=== PATIENT | male | born 1960 | race Caucasian/White ===

== ENCOUNTER 2020-10-07 13:34 | Inpatient (IN) | payer MEDICARE, MEDICAID, SELFPAY ==
[2015-09-23 15:09] VITALS: BMI 42.6
--- NOTE | 2020-10-07 14:10 | HP.PCM.HOS_ITS ---
HPI - General General Date of Admission: 10/07/20 Date of Service: 10/07/20 Chief Complaint: BL Diabetic foot wounds, cellulitis HPI Narrative The patient is a 60 y/o M w/ PMHx: PTSD, Diabetes mellitus type II noted to be uncontrolled, HTN, Obesity, LANA on CPAP, Chronic pain syndrome in chronic pain management, OA, COPD, Former tobacco use who presents to the [facility] as direct admission from [place] on 10/07/20 with history of irritation of his R bunion and plantar region as well as L great dorsal toe region with development of blister, redness and swelling with chills without fevers, increased fatigue over the last 1 week secondary to usage of ill fitting work boots with then onset of red streaking up his LLE primarily over the last 24-48 hours prompting ED evaluation. He rates discomfort as aching constant with intermittent sharp, more so with activity, 5/10. Work-up in the OSH ED included: VS: T 98.2 oral, BP 127/69, HR 76, RR 16, 99% on RA CBC w/ WBC 10.3, Hgb 15.8, Plts 233 CMP w/ Na 135, K 4.4, BUN/Cr 22/1.1, glucose 285, AST 56 otherwise not marked appearing LA 1.6 Plain film L foot w/ soft tissue edema great toe with no osteos abnormalities Medications administered: Vanc and Zosyn, NS 500 cc [facility] Medical History (Updated 10/07/20 @ 14:[address] Diana Mendiola MD) Chronic pain syndrome COPD exacerbation DDD (degenerative disc disease) Diabetes mellitus type II, uncontrolled Diabetic foot infection Former tobacco use GERD (gastroesophageal reflux disease) HTN (hypertension) Obesity LANA on CPAP PTSD (post-traumatic stress disorder) PVD (peripheral vascular disease) Home Medications alprazolam [Xanax] 0.5 mg PO BID PRN PRN 09/23/15 [History Last Taken Unknown] amlodipine 10 mg PO DAILY 09/23/15 [History Last Taken 10/07/20 08:00 1] esomeprazole magnesium [Nexium] 20 mg PO DAILY 09/23/15 [History Last Taken 10/07/20 08:00 1] hydrochlorothiazide 25 mg PO DAILY 09/23/15 [History Last Taken 10/07/20 08:00] oxycodone-acetaminophen [Percocet 10-325 mg Tablet] 1 tab PO Q6H PRN PRN 09/23/15 [History Last Taken 10/06/20 22:00 1] pregabalin [Lyrica] 150 mg PO BID 09/23/15 [History Last Taken 10/06/20 22:00] Humulin 70/30 Insulin Pen 55 u MISCELLANEOUS CONT 10/07/20 [History Last Taken Unknown] dulaglutide [Trulicity] 4.5 mg SUBCUT QWEEK 10/07/20 [History Last Taken Unknown] empagliflozin [Jardiance] 25 mg PO DAILY 10/07/20 [History Last Taken Unknown] glipizide 10 mg PO DAILY 10/07/20 [History Last Taken Unknown] lisinopril 20 mg PO DAILY 10/07/20 [History Last Taken 10/07/20 08:00 1] Allergy/AdvReac Type Severity Reaction Status Date / Time No Known Allergies Allergy Verified 09/23/15 15:09 Family History (Updated 10/07/20 @ 14:[address] Diana Mendiola MD) Mother Cancer Renal CA Hypertension Diabetes Father Cancer History of NH Lymphoma and Colon CA. Hypertension Diabetes Surgical History (Updated 10/07/20 @ 14:[address] Diana Mendiola MD) History of arthroscopic surgery of shoulder History of exploratory laparotomy History of left shoulder replacement Hx of chest tube placement Status post arthroscopic surgery of left knee Social History (Updated 10/07/20 @ 14:[address] Diana Mendiola MD) household members: none Smoking Status: Former smoker how long ago did patient quit smoking: Quit 18 months prior, 5 cigars daily x 40 years prior to this. alcohol intake: never substance use type: does not use ROS ROS Narrative Admission Review of Systems: CONSTITUTIONAL: No weight loss, fever, + chills, weakness or fatigue. HEENT: Eyes: No visual loss, blurred vision, double vision or yellow sclerae. Ears, Nose, Throat: No hearing loss, sneezing, congestion, runny nose or sore throat. SKIN: + BL great toe infections, L>R. CARDIOVASCULAR: No chest pain, chest pressure or chest discomfort, palpitations, edema, orthopnea, syncopal events. RESPIRATORY: No shortness of breath, cough or sputum, wheezing, hemoptysis. GASTROINTESTINAL: No anorexia, nausea, vomiting or diarrhea, abdominal pain, melena, BRBPR. GENITOURINARY: No dysuria, frequency, urgency or retention. NEUROLOGICAL: No headache, dizziness, syncope, paralysis, ataxia, numbness or tingling in the extremities, focal weakness, change in bowel or bladder control, seizure. MUSCULOSKELETAL: + muscle, back pain, joint pain or stiffness. HEMATOLOGIC: No anemia, bleeding or bruising. LYMPHATICS: No enlarged nodes. No history of splenectomy. PSYCHIATRIC: + History of PTSD w/ anxiety. No history of depression. ENDOCRINOLOGIC: No reports of sweating, cold or heat intolerance. No polyuria or polydipsia. ALLERGIES: No history of asthma, hives, eczema or rhinitis. Vital Signs Vital Signs Vital Signs: Weight Body Mass Index (BMI) 42.6 Physical Exam Narrative Physical Examination: General: awake, alert, oriented x 3 and cooperative, seated upright in the MS bed in no apparent distress. Skin: normal color, normal turgor, no icterus, no cyanosis except BL LE venous stasis skin changes and L dorsal foot with erythema, edema, streaking up the leg, warm to touch, L great to dorsal blister with drainage and small region on the plantar surface with some undermining, ~ 0.5 cm laterally but not to bone, R great toe with mild localized erythema around small callous medially on the great toe. HEENT: AT/NC, EOMI, PERRLA, MMM, no carotid bruits or marked JVD noted, although evaluation difficult secondary to thickened neck. Lungs: Diminished BS, > bases, appropriate effort, no rales, ronchi or wheezing. Heart: Regular rate and rhythm; no gallop, rub audible. Abdomen: soft, obese, NTTP, ND, distant normal BS, difficult to discern HSM secondary to habitus. Extremities: no cyanosis, no clubbing, L foot and great toe edema, see skin. Neurological: patient awake, alert, oriented x 3, cognitive function intact; pupils equally reactive to light and accommodation, cranial nerves II-XII grossly normal, moving all 4 extremities, no focal deficits, strength mildly to moderately globally decreased secondary to acute presentation. Psychiatric: affect appears normal, no acute evidence of depressive or anxiety feelings. Assessment & Plan Assessment/Plan (1) Diabetic foot infection: PLAN: The patient is a 60 y/o M w/ PMHx: PTSD, Diabetes mellitus type II noted to be uncontrolled, HTN, Obesity, LANA on CPAP, Chronic pain syndrome in chronic pain management, OA, COPD, Former tobacco use who presents to the [facility] as direct admission from [place] on 10/07/20 with history of irritation of his R bunion and plantar region as well as L great dorsal toe region with development of blister, redness and swelling with chills without fevers, increased fatigue over the last 1 week secondary to usage of ill fitting work boots with then o nset of red streaking up his LLE primarily over the last 24-48 hours. 1. BL LE Extremity Cellulitis, Diabetic Great Toe Infections, L>R, Possible L Great Toe Osteomyelitis: Will admit to [facility], maintain on IV Vanc and Zosyn, will obtain Wound Cx, will obtain Wound MRSA PCR, will obtain HILARIO/PVR/LEAS as well as L foot MRI, Wound RN consulted and dressings being placed upon admission, plan repeat CBC in AM, continue affected extremity elevation above heart when seated and in bed, monitor erythema outline with VS checks, PRN oral/IV regimen, offloading and partial weight bearing status, Dr. Koch consulted and will evaluation, plan NPO at midnight for possible OR. 2. Diabetes mellitus type II, uncontrolled: Hold oral home regimen, continue home insulin regimen, requested hemoglobin A1c as well as nutrition consultation for education and teaching, ADA diet, accu checks w/ ISS. 3. Hypertension: Continue home regimen including Norvasc, hydrochlorothiazide, lisinopril with hold parameters, PRN hydralazine. 4. PTSD: We will continue as needed low-dose benzodiazepine regimen. 5. Chronic pain syndrome, degenerative disc disease: Patient following with chronic pain management, we will temporarily hold home regimen and broaden given acute presentation with acute pain on chronic with oral and IV overlap. Continue patient home chronic Lyrica regimen concurrently. 6. Chronic COPD: Not on any routine inhalers, PRN albuterol, HOB, IS parameters. 7. Former tobacco use: Encourage continued tobacco cessation. 8. Obesity: Weight loss and lifestyle changes encouraged, nutrition consulted. 9. GERD: We will continue famotidine at this time. 10. LANA: CPAP nightly. 11. DVT prophylaxis: SCDs, hold chemoprophylaxis for possible a.m. OR. Charges/Coding Visit Charges Inpatient E&M: 88973 Init Hosp L3
[2020-10-07 14:15] VITALS: PULSE 80; BMI 42.5
--- NOTE | 2020-10-07 14:44 | ART_ITS ---
Reason For Study: Ulcer Procedure A bilateral lower extremity continuous wave Doppler with analog waveform analysis,segmental pressures,and ankle brachial indexes without exercise. Left Segmental Pressures Left brachial= 119mmHg. Left posterior tibial artery = 138mmHg. Left dorsalis pedis artery = 142mmHg. The left dorsalis pedis waveforms are triphasic. The left posterior tibial artery waveforms are triphasic. Right Segmental Pressures Right brachial= 122mmHg. Right posterior tibial artery = 153mmHg. Right dorsalis pedis artery = 137mmHg. The right dorsalis pedis waveforms are triphasic. The right posterior tibial artery waveforms are triphasic. Indices The right ankle brachial index by the dorsalis pedis is 1.12. The right ankle brachial index by the posterior tibial artery is 1.25. The left ankle brachial index by the dorsalis pedis is 1.16. The left ankle brachial index by the posterior tibial artery is 1.13. VL/Lower Ext Art Exam w/o Exercis Interpretation Summary Triphasic Doppler waveforms are noted at ankle level bilaterally. Pulse-volume recordings appear satisfactory at all levels bilaterally. Resting ankle-brachial indices are norm al bilaterally. There is no evidence of significant arterial occlusive disease in the lower ext remities bilaterally. Ordering Physician: Diana Mendiola Performed By: Sonja Oneil RVT
--- NOTE | 2020-10-07 14:50 | NURSING ---
wound photo: left great toe
--- NOTE | 2020-10-07 14:52 | NURSING ---
wound photo: left great toe
--- NOTE | 2020-10-07 14:53 | NURSING ---
wound photo: right great toe
[2020-10-07 15:00] VITALS: BP 134/81; PULSE 76; RESP 18; TEMP 36.7; O2SAT 95
[2020-10-07 15:17] LABS: Magnesium 2.5 mg/dL (1.6-2.6)
[2020-10-07 15:18] VITALS: O2SAT 93
[2020-10-07 15:35] LABS: Hemoglobin A1c 10.3 % (3.8-5.6)
[2020-10-07] MEDS: 0.9% Normal Saline 1,000 ML 125 ML IV (16:07)
[2020-10-07] MEDS: ALPRAZolam 0.5 MG Tablet PO (16:07)
[2020-10-07] MEDS: oxyCODONE 5 MG Tablet 10 MG PO ×2 (16:07→22:49)
[2020-10-07 16:15] LABS: Erythrocyte Sedimentation Rate 57 mm/hr (0-20)
[2020-10-07 16:21] LABS: Bedside Glucose 136 mg/dL (70-110)
[2020-10-07 16:28] LABS: Anion Gap 10 (5-15); BUN 21 mg/dL (7-18); BUN/Creat Ratio 17.5 RATIO (10-20); Calcium,Total 9.3 mg/dL (8.5-10.1); Chloride 103 mmol/L (98-107); EST Glomerular Filtration Rate 66 mL/min (>60); Est Glom Filt Rate - Afr Amer 79 mL/min (>60); Estimated Creatinine Clearance 73.98 ml/min; Glucose 164 mg/dL (74-106); Potassium 3.7 mmol/L (3.5-5.1); Sodium Level 135 mmol/L (136-145)
--- NOTE | 2020-10-07 16:37 | PCM.RX.CS ---
Consult Pharmacy has been consulted to manage selected antiobiotic: Vancomycin Type of Consult: New start Suspected Infection: Skin/Soft tissue Labs: Sodium 135 mmol/L (136-145) L 10/07/20 14:43 Potassium 3.7 mmol/L (3.5-5.1) 10/07/20 14:43 Chloride 103 mmol/L (98-107) 10/07/20 14:43 Carbon Dioxide 22.0 mmol/L (21.0-32.0) 10/07/20 14:43 Anion Gap 10 (5-15) 10/07/20 14:43 BUN 21 mg/dL (7-18) H 10/07/20 14:43 Creatinine 1.20 mg/dL (0.70-1.30) 10/07/20 14:43 Est GFR (MDRD) Af Amer 79 mL/min (>60) 10/07/20 14:43 Est GFR (MDRD) Non-Af 66 mL/min (>60) 10/07/20 14:43 BUN/Creatinine Ratio 17.5 RATIO (10-20) 10/07/20 14:43 Glucose 164 mg/dL (74-106) H 10/07/20 14:43 Weight used for dosin.3 kg Estimated Creatinine Clearance: 107 Pharmacy Plan for Drug Dosing: Patient received 1 gram of vancomycin in [facility] at 1200 on 10/07/2020. dosing recommendation of 1250mg every 8 hours drawing a trough level 1130 10/08/20. Pharmacy Service will continue to monitor and adjust dosing as required. Follow-Up Labs: Trough Vancomycin Labs to be done on [date and time ordered]: 10/08/2020 @1130
[2020-10-07] MEDS: Pregabalin 75 MG Capsule 150 MG PO ×2 (16:39→20:52)
[2020-10-07] MEDS: HYDROmorphone 1 MG/ML Syringe IV ×2 (16:40→20:52)
[2020-10-07 17:13] LABS: M R Staph aureus DNA By PCR Negative (Negative); Probe Check PASS; Specimen Processing Control PASS; Staph aureus DNA By PCR NEGATIVE (Negative)
[2020-10-07 17:17] LABS: M R Staph aureus DNA By PCR Negative (Negative); Probe Check PASS; Specimen Processing Control PASS
--- NOTE | 2020-10-07 17:30 | CON.PCM_ITS ---
Assessment & Plan Assessment/Plan (1) Cellulitis of left lower limb: PLAN: Reviewed diagnostic data. There is noted infection to the left 1st toe with streaking and cellulitis to the foot. Discussed debridement of the w ound with patient, reviewed rationale of this, possible benefits vs risks, he was agreeable. The left 1st toe ulceration was debrided using a 15 blade in sharp excisional fashion down to fascia layer, necrotic subcutaneous tissue and fascia was debrided. There was purulence in the tissues which was excised, all nonviable, necrotic tissue was debrided down to healthy viable base and margins. The wound area debrided measured 5cm x 2.8cm and down to fascia layer total, no anesthesia was needed due to patient's peripheral neuropathy. Hemostasis was achieved with pressure and gauze, there was about 3mL of blood loss. A deep wound culture was obtained and sent to microbiology. There was no probe to bone or joint. A dressing was applied which consisted of betadine, 4x4 gauze, kerlix and mary ann bandage. The right 1st toe ulceration was debrided using a 15 blade in sharp excisional fashion down to subcutaneous layer, necrotic subcutaneous tissue debrided. This was debrided down to healthy viable base and margins. The wound area debrided measured 0.8cm x 0.4cm and down to subcutaneous layer, no anesthesia was needed due to patient's peripheral neuropathy. Hemostasis was achieved with pressure and gauze, there was about 3mL of blood loss. A deep wound culture was obtained and sent to microbiology. There was no probe to bone or joint. A dressing was applied which consisted of 4x4 gauze, kerlix and amry ann bandage. Patient has been started on IV antibiotic therapy - Vancomycin and Zosyn. MRI has been ordered and is pending of the left foot. Left foot xrays radiology report has been reviewed from the xrays he had today at [place], I am not able to see the images and I did order new foot xrays bilateral. LEAS have been ordered and prelim findings show good arterial flow bilateral lower extremity. Reviewed importance of proper blood sugar control to help optimize wound healing, and foot/ankle health. Podiatry will continue to follow closely. Thank you for consultation. (2) Non-pressure 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: (3) Non-pressure chronic ulcer of other part of right foot with fat layer exposed: (4) Type 2 diabetes mellitus with diabetic polyneuropathy: HPI Consult Data Date of Consult: 10/07/20 HPI Narrative HPI Narrative: CALLIE CASTELLANO, is a 60 M who presents with bilateral 1st toe ulce rations left worse than right. Patient relates he developed wounds to the toes a couple weeks ago by wearing old work boots. He relates he went to urgent care as it looked like the right 1st toe ulcer was infected - he took keflex, and now it is better. Recently the left 1st toe ulcer has worsened and is red, swollen with streaking. Patient went to [facility] and was transferred here. He was admitted for further management. He has been started on IV antibiotics. MRI has been ordered of the left foot. Xrays left foot were obtained at [place] - reviewed radiology report and no osseous abnormality noted, no report on gas in the tissues. Labs noted to have elevated ESR and CRP. Hemoglobin a1c 10.3. Patient with no reported fever, chills, nausea or vomiting. [facility] Medical History (Updated 10/07/20 @ 17:[address] Donta Koch, DPM) Chronic pain syndrome COPD exacerbation DDD (degenerative disc disease) Diabetes mellitus type II, uncontrolled Diabetic foot infection Former tobacco use GERD (gastroesophageal reflux disease) HTN (hypertension) Obesity LANA on CPAP PTSD (post-traumatic stress disorder) PVD (peripheral vascular disease) Home Medications alprazolam [Xanax] 0.5 mg PO BID PRN PRN 09/23/15 [History Last Taken Unknown] amlodipine 10 mg PO DAILY 09/23/15 [History Last Taken 10/07/20 08:00 1] esomeprazole magnesium [Nexium] 20 mg PO DAILY 09/23/15 [History Last Taken 10/07/20 08:00 1] hydrochlorothiazide 25 mg PO DAILY 09/23/15 [History Last Taken 10/07/20 08:00] oxycodone-acetaminophen [Percocet 10-325 mg Tablet] 1 tab PO Q6H PRN PRN 09/23/15 [History Last Taken 10/06/20 22:00 1] pregabalin [Lyrica] 150 mg PO BID 09/23/15 [History Last Taken 10/06/20 22:00] Humulin 70/30 Insulin Pen 55 u MISCELLANEOUS CONT 10/07/20 [History Last Taken Unknown] dulaglutide [Trulicity] 4.5 mg SUBCUT QWEEK 10/07/20 [History Last Taken Unknown] empagliflozin [Jardiance] 25 mg PO DAILY 10/07/20 [History Last Taken 10/07/20 08:00 1] glipizide 10 mg PO DAILY 10/07/20 [History Last Taken 10/07/20 08:00] lisinopril 20 mg PO DAILY 10/07/20 [History Last Taken 10/07/20 08:00 1] Allergy/AdvReac Type Severity Reaction Status Date / Time codeine Allergy Rash Verified 10/07/20 15:21 Family History (Updated 10/07/20 @ 14:[address] Diana Mendiola MD) Mother Cancer Renal CA Hypertension Diabetes Father Cancer History of NH Lymphoma and Colon CA. Hypertension Diabetes Surgical History (Updated 10/07/20 @ 14:[address] Diana Mendiola MD) History of arthroscopic surgery of shoulder History of exploratory laparotomy History of left shoulder replacement Hx of chest tube placement Status post arthroscopic surgery of left knee Social History (Updated 10/07/20 @ 14:[address] Diana Mendiola MD) household members: none Smoking Status: Former smoker how long ago did patient quit smoking: Quit 18 months prior, 5 cigars daily x 40 years prior to this. alcohol intake: never substance use type: does not use ROS Constitutional Constitutional: Denies chills, fever(s) or malaise Gastrointestinal Gastrointestinal: Denies nausea or vomiting Integumentary Integumentary: Reports skin ulcer Physical Exam Const alert, oriented x3 and no apparent distress Orientation / Consciousness: awake, oriented to person, oriented to place and oriented to time Skin Skin Narrative: Ulceration left 1st toe to the dorsal medial aspect as well as the plantar medial aspect, there is nonviable tissue, necrotic and infected tissue present down to the fascia layer, there is purulence noted to the base and margins, there is cellulitis, erythema, edema and streaking to the foot, there is no maloder, no probe to bone. There is ulceration to the right plantar medial 1st toe with nonviable tissue down to the subcutaneous tissue with no evidence of infection at this time, no probe to bone, no fluctuance, no crepitus , no visible abscess. Pedal pulses palpable bilateral foot. CFT < 2 seconds to all toes bilateral. No ankle or leg edema bilateral. No calf pain bilateral. There is peripheral neuropathy bilateral foot - no pain to the foot or ankle with palpation or with ROM bilateral. No evidence of charcot neuroarthropathy clinically bilateral foot / ankle. Muscle strength intact to the foot and ankle bilateral. Limited 1st MTPJ ROM bilateral. Lab / Micro Data Result Diagrams: 10/07/20 14:43 10/07/20 14:43 Labs: Laboratory Results - last 24 hr 10/07/20 10/07/20 10/07/20 14:25 14:43 14:43 ESR Sodium 135 L Potassium 3.7 Chloride 103 Carbon Dioxide 22.0 Anion Gap 10 BUN 21 H Creatinine 1.20 Estim Creat Clear Calc 73.98 Est GFR (MDRD) Af Amer 79 Est GFR (MDRD) Non-Af 66 BUN/Creatinine Ratio 17.5 Glucose 164 H Hemoglobin A1c Calcium 9.3 Magnesium 2.5 C-React Prot Ext Range 83.20 H S.aureus Protein A PCR NEGATIVE MRSA (PCR) Negative POC Glucose 10/07/20 10/07/20 10/07/20 14:54 14:54 15:15 ESR 57 H Sodium Potassium Chloride Carbon Dioxide Anion Gap BUN Creatinine Estim Creat Clear Calc Est GFR (MDRD) Af Amer Est GFR (MDRD) Non-Af BUN/Creatinine Ratio Glucose Hemoglobin A1c 10.3 H Calcium Magnesium C-React Prot Ext Range S.aureus Protein A PCR MRSA (PCR) Negative POC Glucose 10/07/20 16:14 ESR Sodium Potassium Chloride Carbon Dioxide Anion Gap BUN Creatinine Estim Creat Clear Calc Est GFR (MDRD) Af Amer Est GFR (MDRD) Non-Af BUN/Creatinine Ratio Glucose Hemoglobin A1c Calcium Magnesium C-React Prot Ext Range S.aureus Protein A PCR MRSA (PCR) POC Glucose 136 H
--- NOTE | 2020-10-07 17:38 | RAD_ITS ---
STUDY: X-RAY - RIGHT FOOT CLINICAL: Male, 60 years old. ulcer 1st toe TECHNIQUE: 3 view(s) of the foot. COMPARISON: None. FINDINGS: Plantar calcaneal spur and enthesophyte at the Achilles tendon insertion site. Otherwise normal talus, calcaneus, and tarsal bones. Normal visualized subtalar, talonavicular, calcaneocuboid, tarsal and tarsometatarsal articulations. At the base of the fifth metatarsal bone, otherwise normal metatarsi. There is degenerative arthrosis of the metatarsophalangeal joint of the hallux . Normal tibial and fibular sesamoid bones. There is degenerative arthrosis of the interphalangeal joint of the great toe. Normal phalanges of the great toe. Normal second through fifth metatarsophalangeal joints. Narrowing of the interphalangeal joints otherwise normal phalanges of the lesser toes. The soft tissue structures are unremarkable. There is no demonstrated fracture. RAD/Foot min 3 Views IMPRESSION: Multilevel degenerative disease as described. No acute fracture or subluxation. Electronically Signed: Rashmi Mcguire MD at 0:23 EDT , Service support ,
[2020-10-07] MEDS: Insulin Human 75/25 Kwickpen 55 UNIT SC (17:59)
[2020-10-07] MEDS: Juven (unflavored) Packet 1 PACKET PO (18:00)
--- NOTE | 2020-10-07 18:00 | MRI_ITS ---
STUDY: MRI LEFT FOREFOOT WITH AND WITHOUT CONTRAST REASON FOR EXAM: Male, 60 years old. Diabetic Left Foot Wound ON TOP OF LEFT GREAT TOE X 2 WEEKS TECHNIQUE: Standardized fat and water weighted pulse sequences were obtained in all 3 orthogonal planes, post contrast administration. IV 29ml Dotarem was administered for the contrast portion of the examination. COMPARISON: X-ray earlier today FINDINGS: There is degenerative arthrosis of the metatarsophalangel joint of the hallux. Normal tibial and fibular sesamoids, with normal sesamoids-first metatarsal articulations. Normal interphalangeal joint of the hallux. There is a 1 cm fluid-filled cyst within the tibial and the lower aspect of the first proximal phalanx with a thin connection to the metatarsophalangeal joint felt to represent a subchondral cyst. Normal medial and lateral heads of the flexor hallucis brevis tendons. Normal flexor and extensor hallucis longus tendons. Normal second through fifth metatarsophalangeal (MTP) joints. Normal interphalangeal joints of the second through fifth toes. Normal proximal, middle and distal phalanges of the second through fifth toes. Normal flexor and extensor tendons of the second through fifth toes. Mild third intermetatarsal space bursitis. Normal visualized metatarsi. Normal intrinsic muscles of the forefoot. Skin thickening and edema of the subcutaneous fat of the first digit consistent with cellulitis. Edema continues into the dorsum of the foot. There is an ulcer of the dorsal tibial surface of the first digit at the level the interphalangeal joint. No loculated fluid collection to suggest abscess. No bone destruction to suggest osteomyelitis. MRI/Lower Ext No Joint W/WO Cont IMPRESSION: Cellulitis with ulcer of the first digit but no abscess or osteomyelitis. Electronically Signed: Miguel Jimenez MD at 12:17 EDT Tel , Service support ,
[2020-10-07] MEDS: Oxymetazoline 0.05% 1 SPRAY SPRAY.BTL NASAL (18:02)
--- NOTE | 2020-10-07 18:03 | RAD_ITS ---
STUDY: X-RAY - LEFT FOOT CLINICAL: Male, 60 years old. wound 1st toe s/p debridement TECHNIQUE: 3 view(s) of the foot. COMPARISON: None. FINDINGS: Plantar calcaneal spur and enthesophyte at the Achilles tendon insertion site. Otherwise normal talus, calcaneus, and tarsal bones. Normal visualized subtalar, talonavicular, calcaneocuboid, tarsal and tarsometatarsal articulations. Normal metatarsi. There is degenerative arthrosis of the metatarsophalangeal joint of the hallux . Normal tibial and fibular sesamoid bones. There is degenerative arthrosis of the interphalangeal joint of the great toe. Normal phalanges of the great toe. Normal second through fifth metatarsophalangeal joints. Narrowing of the interphalangeal joints otherwise normal phalanges of the lesser toes. There is diffuse soft tissue swelling at the first toe with areas of laceration or open wound injury involving the medial aspect of the first toe. RAD/Foot min 3 Views IMPRESSION: Soft tissue swelling at the level of the first toe with open wound injury versus laceration as described. Underlying degenerative disease with no acute fracture or subluxation. Electronically Signed: Rashmi Mcguire MD at 0:25 EDT , Service support ,
[2020-10-07 20:30] VITALS: BP 108/83; PULSE 82; RESP 17; TEMP 36.9; O2SAT 96
[2020-10-07] MEDS: 0.9% Saline Lock 10 ML Syringe IV ×2 (20:33→22:48)
[2020-10-07] MEDS: Famotidine 20 MG Tablet PO (20:43)
[2020-10-07] MEDS: Insulin Lispro 100 UNIT/ML INSULN.PEN SC (21:06)
[2020-10-07 21:15] LABS: Bedside Glucose 164 mg/dL (70-110)
[2020-10-07] MEDS: Temazepam 15 MG Capsule PO (22:49)
[2020-10-07 23:18] LABS: M R Staph aureus DNA By PCR Negative (Negative); Probe Check PASS; Specimen Processing Control PASS; Staph aureus DNA By PCR NEGATIVE (Negative)
[2020-10-07 23:19] LABS: M R Staph aureus DNA By PCR Negative (Negative); Probe Check PASS; Specimen Processing Control PASS; Staph aureus DNA By PCR NEGATIVE (Negative)
[2020-10-07 23:30] VITALS: PULSE 81; RESP 12; O2SAT 96
[2020-10-08] VITALS (7 sets, daily range): BP systolic 111–143; BP diastolic 62–74; PULSE 73–84; RESP 16–19; TEMP 36.8–37.4; O2SAT 94–96
[2020-10-08] MEDS: 0.9% Saline Lock 10 ML Syringe IV ×2 (03:29→21:53)
[2020-10-08] MEDS: HYDROmorphone 1 MG/ML Syringe IV ×4 (03:29→21:52)
[2020-10-08] MEDS: 0.9% Normal Saline 1,000 ML 125 ML IV ×2 (03:54→15:00)
[2020-10-08] MEDS: Insulin Lispro 100 UNIT/ML INSULN.PEN SC ×3 (06:19→17:31)
[2020-10-08] MEDS: oxyCODONE 5 MG Tablet 10 MG PO ×3 (06:24→19:27)
[2020-10-08] MEDS: Acetaminophen 325 MG Tablet 650 MG PO ×3 (06:24→19:27)
[2020-10-08 06:26] LABS: Bedside Glucose 168 mg/dL (70-110)
--- NOTE | 2020-10-08 06:30 | PCM.PN.BLA ---
Progress Note Patient overnight with no acute events per self and per nursing report. Patient notes some throbbing discomfort primarily to the left foot following debridement at the bedside the evening prior. He notes current pain regimen is sufficient enough to control this pain and has significantly improved since initiation. Did review with patient current work-up which included left foot MRI with evidence of cellulitis with ulcer of the first digit but no obvious evidence of abscess or osteomyelitis. Podiatry also repeated plain films of bilateral feet, right foot with multilevel degenerative disease but no acute fracture or subluxation or evidence of osteomyelitis. Patient denies fevers, chills, nausea, emesis, abdominal pain, chest pain or dyspnea. Physical Exam Narrative Extremity Arterial Study 10/07/20 14:44 Interpretation Summary Triphasic Doppler waveforms are noted at ankle level bilaterally. Pulse-volume recordings appear satisfactory at all levels bilaterally. Resting ankle-brachial indices are normal bilaterally. There is no evidence of significant arterial occlusive disease in the lower extremities bilaterally. Ordering Physician: Diana Mendiola Performed By: Sonja Oneil, T Foot X-Ray 10/07/20 17:38 IMPRESSION: Multilevel degenerative disease as described. No acute fracture or subluxation. Electronically Signed: Rashmi Mcguire MD at 0:23 EDT , Service support , Lower Extremity MRI 10/07/20 18:00 IMPRESSION: Cellulitis with ulcer of the first digit but no abscess or osteomyelitis. Electronically Signed: Mgiuel Jimenez MD at 12:17 EDT Tel , Service support , Foot X-Ray 10/07/20 18:03 IMPRESSION: Soft tissue swelling at the level of the first toe with open wound injury versus laceration as described. Underlying degenerative disease with no acute fracture or subluxation. Electronically Signed: Rashmi Mcguire MD at 0:25 EDT , Service support , Temp Pulse Resp BP Pulse Ox 99.1 F 73 16 118/64 94 10/08/20 08:07 10/08/20 08:07 10/08/20 08:07 10/08/20 08:07 10/08/20 08:07 10/08/20 10/08/20 10/08/20 11:20 11:14 06:56 WBC RBC Hgb Hct MCV MCH MCHC RDW Std Deviation RDW Coeff of Mimi Plt Count MPV Immature Gran % (Auto) Neut % (Auto) Lymph % (Auto) Gonzales % (Auto) Eos % (Auto) Baso % (Auto) Absolute Neuts (auto) Absolute Lymphs (auto) Nucleated RBC % ESR Sodium 136 Potassium 3.8 Chloride 106 Carbon Dioxide 24.0 Anion Gap 6 BUN 18 Creatinine 1.12 Estim Creat Clear Calc 79.27 Est GFR (MDRD) Af Amer 86 Est GFR (MDRD) Non-Af 71 BUN/Creatinine Ratio 16.1 Glucose 166 H Hemoglobin A1c Calcium 8.6 Magnesium Total Bilirubin 0.40 AST 39 H ALT 36 Alkaline Phosphatase 66 C-React Prot Ext Range Total Protein 7.3 Albumin 3.1 L Globulin 4.2 Albumin/Globulin Ratio 0.7 L Vancomycin Trough 13.5 S.aureus Protein A PCR MRSA (PCR) POC Glucose 262 H 10/08/20 10/08/20 10/07/20 06:56 06:18 21:05 WBC 8.1 RBC 4.77 Hgb 14.1 Hct 41.5 MCV 87.0 MCH 29.6 MCHC 34.0 RDW Std Deviation 40.8 RDW Coeff of Mimi 12.8 Plt Count 209 MPV 10.1 Immature Gran % (Auto) 0.700 Neut % (Auto) 53.0 Lymph % (Auto) 30.3 Gonzales % (Auto) 12.5 H Eos % (Auto) 2.6 Baso % (Auto) 0.9 Absolute Neuts (auto) 4.3 Absolute Lymphs (auto) 2.45 Nucleated RBC % 0 ESR Sodium Potassium Chloride Carbon Dioxide Anion Gap BUN Creatinine Estim Creat Clear Calc Est GFR (MDRD) Af Amer Est GFR (MDRD) Non-Af BUN/Creatinine Ratio Glucose Hemoglobin A1c Calcium Magnesium Total Bilirubin AST ALT Alkaline Phosphatase C-React Prot Ext Range Total Protein Albumin Globulin Albumin/Globulin Ratio Vancomycin Trough S.aureus Protein A PCR MRSA (PCR) POC Glucose 168 H 164 H 10/07/20 10/07/20 10/07/20 17:34 17:34 16:14 WBC RBC Hgb Hct MCV MCH MCHC RDW Std Deviation RDW Coeff of Mimi Plt Count MPV Immature Gran % (Auto) Neut % (Auto) Lymph % (Auto) [place] % (Auto) Eos % (Auto) Baso % (Auto) Absolute Neuts (auto) Absolute Lymphs (auto) Nucleated RBC % ESR Sodium Potassium Chloride Carbon Dioxide Anion Gap BUN Creatinine Estim Creat Clear Calc Est GFR (MDRD) Af Amer Est GFR (MDRD) Non-Af BUN/Creatinine Ratio Glucose Hemoglobin A1c Calcium Magnesium Total Bilirubin AST ALT Alkaline Phosphatase C-React Prot Ext Range Total Protein Albumin Globulin Albumin/Globulin Ratio Vancomycin Trough S.aureus Protein A PCR NEGATIVE NEGATIVE MRSA (PCR) Negative Negative POC Glucose 136 H 10/07/20 10/07/20 10/07/20 15:15 14:54 14:54 WBC RBC Hgb Hct MCV MCH MCHC RDW Std Deviation RDW Coeff of Mimi Plt Count MPV Immature Gran % (Auto) Neut % (Auto) Lymph % (Auto) Gonzales % (Auto) Eos % (Auto) Baso % (Auto) Absolute Neuts (auto) Absolute Lymphs (auto) Nucleated RBC % ESR 57 H Sodium Potassium Chloride Carbon Dioxide Anion Gap BUN Creatinine Estim Creat Clear Calc Est GFR (MDRD) Af Amer Est GFR (MDRD) Non-Af BUN/Creatinine Ratio Glucose Hemoglobin A1c 10.3 H Calcium Magnesium Total Bilirubin AST ALT Alkaline Phosphatase C-React Prot Ext Range Total Protein Albumin Globulin Albumin/Globulin Ratio Vancomycin Trough S.aureus Protein A PCR MRSA (PCR) Negative POC Glucose 10/07/20 10/07/20 10/07/20 14:43 14:43 14:25 WBC RBC Hgb Hct MCV MCH MCHC RDW Std Deviation RDW Coeff of Mimi Plt Count MPV Immature Gran % (Auto) Neut % (Auto) Lymph % (Auto) Gonzales % (Auto) Eos % (Auto) Baso % (Auto) Absolute Neuts (auto) Absolute Lymphs (auto) Nucleated RBC % ESR Sodium 135 L Potassium 3.7 Chloride 103 Carbon Dioxide 22.0 Anion Gap 10 BUN 21 H Creatinine 1.20 Estim Creat Clear Calc 73.98 Est GFR (MDRD) Af Amer 79 Est GFR (MDRD) Non-Af 66 BUN/Creatinine Ratio 17.5 Glucose 164 H Hemoglobin A1c Calcium 9.3 Magnesium 2.5 Total Bilirubin AST ALT Alkaline Phosphatase C-React Prot Ext Range 83.20 H Total Protein Albumin Globulin Albumin/Globulin Ratio Vancomycin Trough S.aureus Protein A PCR NEGATIVE MRSA (PCR) Negative POC Glucose Physical Examination: General: awake, alert, oriented x 3 and cooperative, seated upright in the MS bed in no apparent distress. Skin: normal color, normal turgor, no icterus, no cyanosis, s/p BL bedside debridement per podiatry with dressing in place bilaterally, erythema and streaking notable improved per discussion with podiatry. HEENT: AT/NC, EOMI, PERRLA, MMM. Lungs: Diminished BS, > bases, appropriate effort, no rales, ronchi or wheezing. Heart: Regular rate and rhythm; no gallop, rub audible. Abdomen: soft, morbidly obese, NTTP, ND, distant normal BS. Extremities: no cyanosis, no clubbing, s/p bedside debridement, dressings in place, see skin. Neurological: patient awake, alert, oriented x 3, cognitive function intact; pupils equally reactive to light and accommodation, cranial nerves II-XII grossly normal, moving all 4 extremities, no focal deficits, strength improving, mildly to moderately globally decreased. Psychiatric: affect appears normal, no acute evidence of depressive or anxiety feelings. 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: with nursing home use Qualified Code(s): E11.42 - Type 2 diabetes mellitus with diabetic polyneuropathy; Z79.4 - shelter (current) use of insulin (5) Diabetic foot infection: PLAN: The patient is a 60 y/o M w/ PMHx: PTSD, Diabetes mellitus type II noted to be uncontrolled, HTN, Obesity, LANA on CPAP, Chronic pain syndrome in chronic pain management, OA, COPD, Former tobacco use who presents to the [facility] as direct admission from [place] ED on 10/07/20 with history of irritation of his R bunion and plantar region as well as L great dorsal toe region with development of blister, redness and swelling with chills without fevers, increased fatigue over the last 1 week secondary to usage of ill fitting work boots with then onset of red streaking up his LLE primarily over the last 24-48 hours. 1. BL LE Extremity Cellulitis, Diabetic Great Toe Infections, L>R, Possible L Great Toe Osteomyelitis: Patient admitted to [place], maintained currently on Vanc and Zosyn pending Wound Cx and Wound MRSA, HILARIO/PVR/LEAS without any marked evidence of arterial disease, L foot MRI without evidence of osteomyelitis, s/p 10/07/20 aggressive bedside debridement per Dr. Koch, continue to trend CBC, consider ID consultation Saturday pending re-assessment, continue daily dressing changes per Podiatry/Wound RN discretion, PRN oral/IV regimen, offloading and partial weight bearing status. Deferring OR at this time. 2. Diabetes mellitus type II, uncontrolled: Hold oral home regimen, continue home insulin regimen, hemoglobin A1c 10.3%, nutrition consultation for education and teaching, ADA diet, accu checks w/ ISS. 3. Hypertension: Continue home regimen including Norvasc, hydrochlorothiazide, lisinopril with hold parameters, PRN hydralazine. 4. PTSD: Continue as needed low-dose benzodiazepine regimen. 5. Chronic pain syndrome, degenerative disc disease: Patient following with chronic pain management, we will temporarily hold home regimen and broaden given acute presentation with acute pain on chronic with oral and IV overlap. Continue patient home chronic Lyrica regimen concurrently. 6. Chronic COPD: Not on any routine inhalers, PRN albuterol, HOB, IS parameters. 7. Former tobacco use: Encourage continued tobacco cessation. 8. Morbid Obesity: Weight loss and lifestyle changes encouraged, nutrition consulted. 9. GERD: We will continue famotidine at this time. 10. ALNA: CPAP nightly. 11. DVT prophylaxis: SCDs, will add lovenox given no planned OR. Visit Charges Inpatient E&M: 47384 Subs Hosp L2
[2020-10-08 07:06] LABS: Absolute Lymphocyte Count 2.45 X10^3/uL (0.83-4.51); Absolute Neutrophil Count 4.3 X10^3/uL (2.0-7.7); Basophil# 0.07 X10^3/uL; Basophil% 0.9 % (0-1); Eosinophil# 0.21 X10^3/uL; Eosinophils% 2.6 % (0-5); Hematocrit 41.5 % (40-54); Hemoglobin 14.1 g/dL (13.0-16.5); Lymphocyte # 2.45 X10^3/ul (0.83-4.51); Lymphocyte % 30.3 % (19-41); Mean Corpuscular Hgb 29.6 pg (27.0-32.0); Mean Platelet Vol. 10.1 fl (6.2-12.0); Monocyte# 1.01 X10^3/uL; Monocyte% 12.5 % (0-10); NRBC Flagged by Analyzer 0 % (0-5); Neutrophil # 4.29 X10^3/uL (2.7-7.7); Platelet Count 209 K/mm3 (150-450); RBC Distribution Width CV 12.8 % (11.6-14.6); RBC Distribution Width SD 40.8 fl (35.1-43.9); Red Blood Count 4.77 M/mm3 (4.6-6.2); White Blood Count 8.1 K/mm3 (4.4-11.0)
[2020-10-08 07:39] LABS: ALB/GLOB Ratio 0.7 RATIO (0.9-2.4); AST(SGOT) 39 U/L (15-37); Alanine Aminotransfer ALT/SGPT 36 U/L (16-61); Albumin, Serum 3.1 g/dL (3.2-5.0); Alkaline Phosphatase 66 U/L (45-117); Anion Gap 6 (5-15); BUN 18 mg/dL (7-18); BUN/Creat Ratio 16.1 RATIO (10-20); Calcium,Total 8.6 mg/dL (8.5-10.1); Chloride 106 mmol/L (98-107); Creatinine, Serum 1.12 mg/dL (0.70-1.30); EST Glomerular Filtration Rate 71 mL/min (>60); Est Glom Filt Rate - Afr Amer 86 mL/min (>60); Estimated Creatinine Clearance 79.27 ml/min; Globulin 4.2 g/dL (2.2-4.2); Glucose 166 mg/dL (74-106); Potassium 3.8 mmol/L (3.5-5.1); Protein, Total 7.3 g/dL (6.4-8.2); Sodium Level 136 mmol/L (136-145)
--- NOTE | 2020-10-08 07:48 | PN_ITS ---
Subjective Subjective Patient was seen this morning for follow up on bilateral feet. He is resting comfortably in bed. No complaints of fever, chills, nausea or vomiting. Objective Data Objective Data Vital Signs: Vital Signs Temp Pulse Resp BP Pulse Ox 98.2 F 84 17 111/74 94 10/08/20 03:34 10/08/20 03:34 10/08/20 03:34 10/08/20 03:34 10/08/20 03:34 Oxygen Delivery Method Room Air Weight: 147.2 kg Body Mass Index (BMI) 42.5 Intake & Output: Intake and Output for Last 24 Hours 10/06/20 10/07/20 10/08/20 23:59 23:59 23:59 Intake Total 1431.25 / 1431.25 1732.92 / 1732.92 Output Total 600 / 600 Balance 831.25 / 831.25 1732.92 / 1732.92 Lab / Micro Data Result Diagrams: 10/08/20 06:56 10/08/20 06:56 Labs: Laboratory Results - last 24 hr 10/07/20 10/07/20 10/07/20 14:25 14:43 14:43 WBC RBC Hgb Hct MCV MCH MCHC RDW Std Deviation RDW Coeff of Mimi Plt Count MPV Immature Gran % (Auto) Neut % (Auto) Lymph % (Auto) [place] % (Auto) Eos % (Auto) Baso % (Auto) Absolute Neuts (auto) Absolute Lymphs (auto) Nucleated RBC % ESR Sodium 135 L Potassium 3.7 Chloride 103 Carbon Dioxide 22.0 Anion Gap 10 BUN 21 H Creatinine 1.20 Estim Creat Clear Calc 73.98 Est GFR (MDRD) Af Amer 79 Est GFR (MDRD) Non-Af 66 BUN/Creatinine Ratio 17.5 Glucose 164 H Hemoglobin A1c Calcium 9.3 Magnesium 2.5 Total Bilirubin AST ALT Alkaline Phosphatase C-React Prot Ext Range 83.20 H Total Protein Albumin Globulin Albumin/Globulin Ratio S.aureus Protein A PCR NEGATIVE MRSA (PCR) Negative POC Glucose 10/07/20 10/07/20 10/07/20 14:54 14:54 15:15 WBC RBC Hgb Hct MCV MCH MCHC RDW Std Deviation RDW Coeff of Mimi Plt Count MPV Immature Gran % (Auto) Neut % (Auto) Lymph % (Auto) [place] % (Auto) Eos % (Auto) Baso % (Auto) Absolute Neuts (auto) Absolute Lymphs (auto) Nucleated RBC % ESR 57 H Sodium Potassium Chloride Carbon Dioxide Anion Gap BUN Creatinine Estim Creat Clear Calc Est GFR (MDRD) Af Amer Est GFR (MDRD) Non-Af BUN/Creatinine Ratio Glucose Hemoglobin A1c 10.3 H Calcium Magnesium Total Bilirubin AST ALT Alkaline Phosphatase C-React Prot Ext Range Total Protein Albumin Globulin Albumin/Globulin Ratio S.aureus Protein A PCR MRSA (PCR) Negative POC Glucose 10/07/20 10/07/20 10/07/20 16:14 17:34 17:34 WBC RBC Hgb Hct MCV MCH MCHC RDW Std Deviation RDW Coeff of Mimi Plt Count MPV Immature Gran % (Auto) Neut % (Auto) Lymph % (Auto) [place] % (Auto) Eos % (Auto) Baso % (Auto) Absolute Neuts (auto) Absolute Lymphs (auto) Nucleated RBC % ESR Sodium Potassium Chloride Carbon Dioxide Anion Gap BUN Creatinine Estim Creat Clear Calc Est GFR (MDRD) Af Amer Est GFR (MDRD) Non-Af BUN/Creatinine Ratio Glucose Hemoglobin A1c Calcium Magnesium Total Bilirubin AST ALT Alkaline Phosphatase C-React Prot Ext Range Total Protein Albumin Globulin Albumin/Globulin Ratio S.aureus Protein A PCR NEGATIVE NEGATIVE MRSA (PCR) Negative Negative POC Glucose 136 H 10/07/20 10/08/20 10/08/20 21:05 06:18 06:56 WBC 8.1 RBC 4.77 Hgb 14.1 Hct 41.5 MCV 87.0 MCH 29.6 MCHC 34.0 RDW Std Deviation 40.8 RDW Coeff of Mimi 12.8 Plt Count 209 MPV 10.1 Immature Gran % (Auto) 0.700 Neut % (Auto) 53.0 Lymph % (Auto) 30.3 [place] % (Auto) 12.5 H Eos % (Auto) 2.6 Baso % (Auto) 0.9 Absolute Neuts (auto) 4.3 Absolute Lymphs (auto) 2.45 Nucleated RBC % 0 ESR Sodium Potassium Chloride Carbon Dioxide Anion Gap BUN Creatinine Estim Creat Clear Calc Est GFR (MDRD) Af Amer Est GFR (MDRD) Non-Af BUN/Creatinine Ratio Glucose Hemoglobin A1c Calcium Magnesium Total Bilirubin AST ALT Alkaline Phosphatase C-React Prot Ext Range Total Protein Albumin Globulin Albumin/Globulin Ratio S.aureus Protein A PCR MRSA (PCR) POC Glucose 164 H 168 H 10/08/20 06:56 WBC RBC Hgb Hct MCV MCH MCHC RDW Std Deviation RDW Coeff of Mimi Plt Count MPV Immature Gran % (Auto) Neut % (Auto) Lymph % (Auto) [place] % (Auto) Eos % (Auto) Baso % (Auto) Absolute Neuts (auto) Absolute Lymphs (auto) Nucleated RBC % ESR Sodium 136 Potassium 3.8 Chloride 106 Carbon Dioxide 24.0 Anion Gap 6 BUN 18 Creatinine 1.12 Estim Creat Clear Calc 79.27 Est GFR (MDRD) Af Amer 86 Est GFR (MDRD) Non-Af 71 BUN/Creatinine Ratio 16.1 Glucose 166 H Hemoglobin A1c Calcium 8.6 Magnesium Total Bilirubin 0.40 AST 39 H ALT 36 Alkaline Phosphatase 66 C-React Prot Ext Range Total Protein 7.3 Albumin 3.1 L Globulin 4.2 Albumin/Globulin Ratio 0.7 L S.aureus Protein A PCR MRSA (PCR) POC Glucose Radiography Diagnostic Testing: Radiology Impression Extremity Arterial Study 10/07/20 14:44 Interpretation Summary Triphasic Doppler waveforms are noted at ankle level bilaterally. Pulse-volume recordings appear satisfactory at all levels bilaterally. Resting ankle-brachial indices are normal bilaterally. There is no evidence of significant arterial occlusive disease in the lower extremities bilaterally. Ordering Physician: Diana Mendiola Performed By: Sonja Oneil RVT Foot X-Ray 10/07/20 17:38 IMPRESSION: Multilevel degenerative disease as described. No acute fracture or subluxation. Electronically Signed: Rashmi Mcguire MD at 0:23 EDT , Service support , Foot X-Ray 10/07/20 18:03 IMPRESSION: Soft tissue swelling at the level of the first toe with open wound injury versus laceration as described. Underlying degenerative disease with no acute fracture or subluxation. Electronically Signed: Rashmi Mcguire MD at 0:25 EDT , Service support , Physical Exam Const alert, oriented x3 and no apparent distress Orientation / Consciousness: awake, oriented to person, oriented to place and oriented to time Skin Skin Narrative: Ulceration left 1st toe to the dorsal medial aspect as well as the plantar medial aspect, tissues healthy and viable today - down to the fascia layer, there is cellulitis, erythema, edema and streaking to the foot which is much improved today, there is no maloder, no probe to bone. There is ulceration to the right plantar medial 1st toe with healthy viable tissue down to the subcutaneous tissue with no evidence of infection at this time, no probe to bone, no fluctuance, no crepitus, no visible abscess. Pedal pulses palpable bilateral foot. CFT < 2 seconds to all toes bilateral. No ankle or leg edema bilateral. No calf pain bilateral. There is peripheral neuropathy bilateral foot - no pain to the foot or ankle with palpation or with ROM bilateral. No evidence of charcot neuroarthropathy clinically bilateral foot / ankle. Muscle strength intact to the foot and ankle bilateral. Limited 1st MTPJ ROM bilateral. Assessment & Plan Assessment/Plan (1) Cellulitis of left lower limb: PLAN: Re-evaluation performed. Reviewed diagnostic data. Reviewed bilateral foot xrays, no gas, no evidence of osteomyelitis. Patient has obtained left foot MRI, reviewed images, however awaiting formal radiology read. WBC normal today, patient afebrile. Clinically feet much improved, left foot cellulitis resolving, no visible abscess, non purulence today, tissues healthy and viable bilateral feet. Due to the findings with significant improvement noted today no podiatry surgery plans at this time and ok to resume his diet. Cultures have been obtained and results pending. Patient is on IV antibiotics - Vancomycin and Zosyn. Wound Care: Cleansed ulcerations with normal saline solution. Apply Aquacel Ag and overlying 4x4 gauze, kerlix and mary ann bandage - change daily. LEAS have been ordered and patient has good arterial flow to bilateral feet. No weightbearing forefoot bilateral, ok for heel weightbearing bilateral. Reviewed importance of proper blood sugar control to help optimize wound healing, and foot/ankle health. Podiatry will continue to follow. (2) Non-pressure 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: (3) Non-pressure chronic ulcer of other part of right foot with fat layer exposed: (4) Type 2 diabetes mellitus with diabetic polyneuropathy:
[2020-10-08] MEDS: Insulin Human 75/25 Kwickpen 55 UNIT SC ×2 (08:31→17:32)
[2020-10-08] MEDS: Juven (unflavored) Packet 1 PACKET PO ×2 (08:34→16:31)
[2020-10-08] MEDS: Oxymetazoline 0.05% 1 SPRAY SPRAY.BTL NASAL ×2 (10:57→19:21)
[2020-10-08] MEDS: Lisinopril 20 MG Tablet PO (10:59)
[2020-10-08] MEDS: Famotidine 20 MG Tablet PO ×2 (10:59→21:46)
[2020-10-08] MEDS: hydroCHLOROthiazide 25 MG Tablet PO (10:59)
[2020-10-08] MEDS: amLODIPine 10 MG Tablet PO (10:59)
[2020-10-08] MEDS: Pregabalin 75 MG Capsule 150 MG PO ×2 (11:02→21:52)
--- NOTE | 2020-10-08 11:25 | CASEMGMT ---
SAMIRA ROBERTSON assessment: Face to Face with patient for initial transition planning/care coordination assessment. RN MARCELO introduced self and role at [facility], pt voices understanding and consents to assessment. Pt is sitting up in bed in no distress. Pt is A/Ox4 and answers all questions appropriately. Care providers, pharmacy, and demographics verified. Presentation: Direct admit from [place] ED Admitting dx: Left foot diabetic infection PCP: Romel Abraham Specialists: Zee, podiatry; [facility]; Jaspal, [facility] in [place]; [place], eye Preferred Pharmacy: [facility] Insurance: [employer] A/B, [employer] Prescription Benefit: Yes Living Will/HPOA: Pt states has LW/HPOA and is aware it's not on file at [facility]. Pt states sig other, Alie Graff, is HPOA. LNOK: Alie Tarle, sig other/HPOA Living Arrangements: Pt states lives alone in 1 story senior apt with no steps and states no concerns at home. Pt states is normally independent with ADL's. Pt is interested in an aide and provided with [facility] resources. Transportation: Pt states normally drives self but will be driving and states no transportation concerns. DME/HHC: Pt states has cpap thru [employer]. Pt states that someone mentioned he may need a WW at discharge and states no preference for DME provider. CM to follow for therapy notes. Pt states no hx of HHC or SNF. Pt states no concerns with going home at time of discharge. Pt is on disability. Pt states does not smoke cigarettes or drink ETOH. Pt states no further questions/concerns/needs. CM to follow for PT/OT evals, blood cultures, and any further discharge planning/needs. Advised pt to ask for CM if any further questions/concerns/needs arise, voices understanding. Pt goal: Home Plan: Home w/ WW, if recommended. [place] SAMIRA ROBERTSON
[2020-10-08 11:26] LABS: Bedside Glucose 262 mg/dL (70-110)
[2020-10-08 12:04] LABS: Vancomycin, Trough Level 13.5 ug/mL (5.0-15.0)
--- NOTE | 2020-10-08 13:19 | PCM.RX.CS ---
Consult Pharmacy has been consulted to manage selected antiobiotic: Vancomycin Type of Consult: Follow-up Suspected Infection: Skin/Soft tissue Labs: Sodium 136 mmol/L (136-145) 10/08/20 06:56 Potassium 3.8 mmol/L (3.5-5.1) 10/08/20 06:56 Chloride 106 mmol/L (98-107) 10/08/20 06:56 Carbon Dioxide 24.0 mmol/L (21.0-32.0) 10/08/20 06:56 Anion Gap 6 (5-15) 10/08/20 06:56 BUN 18 mg/dL (7-18) 10/08/20 06:56 Creatinine 1.12 mg/dL (0.70-1.30) 10/08/20 06:56 Est GFR (MDRD) Af Amer 86 mL/min (>60) 10/08/20 06:56 Est GFR (MDRD) Non-Af 71 mL/min (>60) 10/08/20 06:56 BUN/Creatinine Ratio 16.1 RATIO (10-20) 10/08/20 06:56 Glucose 166 mg/dL (74-106) H 10/08/20 06:56 Vancomycin Trough 13.5 ug/mL (5.0-15.0) 10/08/20 11:20 Microbiology: Microbiology 10/07/20 17:15 Wound - Right Foot Gram Stain - Final 10/07/20 17:15 Wound - Right Foot Wound Culture - Preliminary No growth-Final to follow 10/07/20 17:10 Wound - Left Foot Gram Stain - Final 10/07/20 17:10 Wound - Left Foot Wound Culture - Preliminary Beta streptococcus 10/07/20 14:25 Wound - Toe Gram Stain - Final 10/07/20 14:25 Wound - Toe Wound Culture - Preliminary Streptococcus group B Goal Trough: 15-20 mcg/mL Pharmacy Plan for Drug Dosing: VANCOMYCIN LEVEL RECEIVED Current Vancomycin Dose: 1250mg iv q8h Number of Doses Received: 1000mg iv x1 on 10/07/20 at 1200 ([facility]), 1250mg iv q8h x2 doses Vancomycin Level: 13.5 Hours Since Last Dose: 7.5 Renal Function: SrCr 1.12 Renal Function Trend: SrCr stable Lab/Micro: Vancomycin Plan/Comments: recommend continuing current dose of 1250mg iv q8h. pt is not quite at steady state, has a high bmi, and is close to ordered goal trough of 15-20 Pending Level: 10/09/20 at 1130 Pharmacy Service will continue to monitor and adjust dosing as required. Follow-Up Labs: Trough Vancomycin - 10/09/20 at 1130
--- NOTE | 2020-10-08 14:53 | CASEMGMT ---
SW Note SW Referral Source: [facility] Reason for Referral: Home Services Patient was provided with handout on [facility]. No further needs voiced. Melissa MCCRARY
[2020-10-08 16:45] LABS: Bedside Glucose 288 mg/dL (70-110)
[2020-10-08] MEDS: Enoxaparin 40 MG/0.4 ML Syringe SC (21:46)
[2020-10-08 22:06] LABS: Bedside Glucose 130 mg/dL (70-110)
[2020-10-09] MEDS: MENTHOL 226.8 GM JAR 1 APPLIC TOPICAL ×2 (00:48→21:34)
[2020-10-09] MEDS: Acetaminophen 325 MG Tablet 650 MG PO ×4 (00:50→20:00)
[2020-10-09] MEDS: oxyCODONE 5 MG Tablet 10 MG PO ×4 (00:50→20:00)
[2020-10-09] MEDS: 0.9% Normal Saline 1,000 ML 125 ML IV ×3 (00:52→20:00)
[2020-10-09 01:47] VITALS: BP 138/74; PULSE 81; RESP 16; TEMP 36.7; O2SAT 98
[2020-10-09 03:00] VITALS: PULSE 82; RESP 15; O2SAT 95
[2020-10-09] MEDS: HYDROmorphone 1 MG/ML Syringe IV (04:46)
[2020-10-09] MEDS: Sodium Chloride 0.65% 1 SPRAY SPRAY.BTL 2 SPRAY NASAL (04:47)
[2020-10-09 05:23] LABS: Absolute Lymphocyte Count 2.63 X10^3/uL (0.83-4.51); Absolute Neutrophil Count 3.2 X10^3/uL (2.0-7.7); Basophil# 0.06 X10^3/uL; Basophil% 0.8 % (0-1); Eosinophil# 0.23 X10^3/uL; Eosinophils% 3.2 % (0-5); Hematocrit 39.8 % (40-54); Hemoglobin 13.8 g/dL (13.0-16.5); Lymphocyte # 2.63 X10^3/ul (0.83-4.51); Mean Corp Hgb Conc 34.7 g/dL (32-36); Mean Corpuscular Hgb 30.1 pg (27.0-32.0); Mean Corpuscular Volume 86.9 fL (80-94); Mean Platelet Vol. 9.8 fl (6.2-12.0); Monocyte# 0.93 X10^3/uL; Monocyte% 13.1 % (0-10); NRBC Flagged by Analyzer 0 % (0-5); Neutrophil # 3.17 X10^3/uL (2.7-7.7); Neutrophil % 44.6 % (47-70); Platelet Count 217 K/mm3 (150-450); RBC Distribution Width CV 12.8 % (11.6-14.6); RBC Distribution Width SD 40.3 fl (35.1-43.9); Red Blood Count 4.58 M/mm3 (4.6-6.2); White Blood Count 7.1 K/mm3 (4.4-11.0)
[2020-10-09 05:39] LABS: ALB/GLOB Ratio 0.7 RATIO (0.9-2.4); AST(SGOT) 35 U/L (15-37); Alanine Aminotransfer ALT/SGPT 40 U/L (16-61); Albumin, Serum 2.9 g/dL (3.2-5.0); Alkaline Phosphatase 75 U/L (45-117); Anion Gap 7 (5-15); BUN 16 mg/dL (7-18); BUN/Creat Ratio 17.8 RATIO (10-20); Calcium,Total 8.8 mg/dL (8.5-10.1); Chloride 107 mmol/L (98-107); EST Glomerular Filtration Rate 92 mL/min (>60); Est Glom Filt Rate - Afr Amer 111 mL/min (>60); Estimated Creatinine Clearance 98.64 ml/min; Globulin 4.1 g/dL (2.2-4.2); Glucose 150 mg/dL (74-106); Potassium 3.8 mmol/L (3.5-5.1); Sodium Level 139 mmol/L (136-145)
--- NOTE | 2020-10-09 06:31 | PCM.PN.HOSP ---
Subjective Subjective Patient overnight with only complaints noted per himself and staff is frequent breakthrough in between the times of the oral narcotic and notes that the short action of the IV in these times is not as effective. Discussed options and patient amenable to short course of long-acting narcotic until swelling and acute pain subsides. Again discussed current presentation, elevated A1c and need for continued diet and lifestyle changes to improve healing potential. Patient denies fevers, chills, nausea, emesis, abdominal pain, chest pain or dyspnea. Objective Data Objective Data Vital Signs: Vital Signs Temp Pulse Resp BP Pulse Ox 98.1 F 82 15 138/74 H 95 10/09/20 01:47 10/09/20 03:00 10/09/20 03:00 10/09/20 01:47 10/09/20 03:00 Oxygen Delivery Method Room Air Weight: 324 lb 8.327 oz Body Mass Index (BMI) 42.5 Intake & Output: Intake and Output for Last 24 Hours 10/07/20 10/08/20 10/09/20 23:59 23:59 23:59 Intake Total 1431.25 / 1431.25 4010.01 / 4460.01 1717.92 / 1717.92 Output Total 600 / 600 Balance 831.25 / 831.25 4010.01 / 4460.01 1717.92 / 1717.92 Lab / Micro Data Result Diagrams: 10/09/20 05:10 10/09/20 05:10 Labs: Laboratory Results - last 24 hr 10/08/20 10/08/20 10/08/20 06:56 06:56 11:14 WBC 8.1 RBC 4.77 Hgb 14.1 Hct 41.5 MCV 87.0 MCH 29.6 MCHC 34.0 RDW Std Deviation 40.8 RDW Coeff of Mimi 12.8 Plt Count 209 MPV 10.1 Immature Gran % (Auto) 0.700 Neut % (Auto) 53.0 Lymph % (Auto) 30.3 Bland % (Auto) 12.5 H Eos % (Auto) 2.6 Baso % (Auto) 0.9 Absolute Neuts (auto) 4.3 Absolute Lymphs (auto) 2.45 Nucleated RBC % 0 Sodium 136 Potassium 3.8 Chloride 106 Carbon Dioxide 24.0 Anion Gap 6 BUN 18 Creatinine 1.12 Estim Creat Clear Calc 79.27 Est GFR (MDRD) Af Amer 86 Est GFR (MDRD) Non-Af 71 BUN/Creatinine Ratio 16.1 Glucose 166 H Calcium 8.6 Total Bilirubin 0.40 AST 39 H ALT 36 Alkaline Phosphatase 66 Total Protein 7.3 Albumin 3.1 L Globulin 4.2 Albumin/Globulin Ratio 0.7 L Vancomycin Trough POC Glucose 262 H 10/08/20 10/08/20 10/08/20 11:20 16:36 21:44 WBC RBC Hgb Hct MCV MCH MCHC RDW Std Deviation RDW Coeff of Mimi Plt Count MPV Immature Gran % (Auto) Neut % (Auto) Lymph % (Auto) Bland % (Auto) Eos % (Auto) Baso % (Auto) Absolute Neuts (auto) Absolute Lymphs (auto) Nucleated RBC % Sodium Potassium Chloride Carbon Dioxide Anion Gap BUN Creatinine Estim Creat Clear Calc Est GFR (MDRD) Af Amer Est GFR (MDRD) Non-Af BUN/Creatinine Ratio Glucose Calcium Total Bilirubin AST ALT Alkaline Phosphatase Total Protein Albumin Globulin Albumin/Globulin Ratio Vancomycin Trough 13.5 POC Glucose 288 H 130 H 10/09/20 10/09/20 05:10 05:10 WBC 7.1 RBC 4.58 L Hgb 13.8 Hct 39.8 L MCV 86.9 MCH 30.1 MCHC 34.7 RDW Std Deviation 40.3 RDW Coeff of Mimi 12.8 Plt Count 217 MPV 9.8 Immature Gran % (Auto) 1.300 H Neut % (Auto) 44.6 L Lymph % (Auto) 37.0 Bland % (Auto) 13.1 H Eos % (Auto) 3.2 Baso % (Auto) 0.8 Absolute Neuts (auto) 3.2 Absolute Lymphs (auto) 2.63 Nucleated RBC % 0 Sodium 139 Potassium 3.8 Chloride 107 Carbon Dioxide 25.0 Anion Gap 7 BUN 16 Creatinine 0.90 Estim Creat Clear Calc 98.64 Est GFR (MDRD) Af Amer 111 Est GFR (MDRD) Non-Af 92 BUN/Creatinine Ratio 17.8 Glucose 150 H Calcium 8.8 Total Bilirubin 0.40 AST 35 ALT 40 Alkaline Phosphatase 75 Total Protein 7.0 Albumin 2.9 L Globulin 4.1 Albumin/Globulin Ratio 0.7 L Vancomycin Trough POC Glucose Micro: Microbiology 10/07/20 17:15 Wound - Right Foot Gram Stain - Final 10/07/20 17:15 Wound - Right Foot Wound Culture - Preliminary No growth-Final to follow 10/07/20 17:10 Wound - Left Foot Gram Stain - Final 10/07/20 17:10 Wound - Left Foot Wound Culture - Preliminary Beta streptococcus 10/07/20 14:25 Wound - Toe Gram Stain - Final 10/07/20 14:25 Wound - Toe Wound Culture - Preliminary Streptococcus group B Radiography Diagnostic Testing: Radiology Impression Lower Extremity MRI 10/07/20 18:00 IMPRESSION: Cellulitis with ulcer of the first digit but no abscess or osteomyelitis. Electronically Signed: Miguel Jimenez MD at 12:17 EDT Tel , Service support , Physical Exam Narrative Physical Examination: General: awake, alert, oriented x 3 and cooperative, seated upright in the MS bed in no apparent distress. Skin: normal color, normal turgor, no icterus, no cyanosis, s/p BL bedside debridement per podiatry with dressing in place bilaterally, erythema and streaking notable improved per discussion with podiatry. HEENT: AT/NC, EOMI, PERRLA, MMM. Lungs: Diminished BS, > bases, normal effort, no rales, ronchi or wheezing. Heart: Regular rate and rhythm; no gallop, rub audible. Abdomen: soft, morbidly obese, NTTP, ND, normal BS. Extremities: no cyanosis, no clubbing, s/p bedside debridement, dressings in place, see skin. Neurological: patient awake, alert, oriented x 3, cognitive function intact; pupils equally reactive to light and accommodation, cranial nerves II-XII grossly normal, moving all 4 extremities, no focal deficits, strength improving, mildly globally decreased. Psychiatric: affect appears normal, no acute evidence of depressive or anxiety feelings. 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: with watermelon harvesting supervisor use Qualified Code(s): E11.42 - Type 2 diabetes mellitus with diabetic polyneuropathy; Z79.4 - termite helper (current) use of insulin PLAN: The patient is a 60 y/o M w/ PMHx: PTSD, Diabetes mellitus type II noted to be uncontrolled, HTN, Obesity, LANA on CPAP, Chronic pain syndrome in chronic pain management, OA, COPD, Former tobacco use who presents to the [facility] as direct admission from [place] [facility] on 10/07/20 with history of irritation of his R bunion and plantar region as well as L great dorsal toe region with development of blister, redness and swelling with chills without fevers, increased fatigue over the last 1 week secondary to usage of ill fitting work boots with then onset of red streaking up his LLE primarily over the last 24-48 hours. 1. BL LE Extremity Cellulitis, Diabetic Great Toe Infections, L>R with Preliminary Beta-strep and GPC Poss Enterococcus, final pending: Patient admitted to [facility], maintained currently on Vanc and Zosyn pending Wound Cx and Wound MRSA, HILARIO/PVR/LEAS without any marked evidence of arterial disease, L foot MRI without evidence of osteomyelitis, s/p 10/07/20 aggressive bedside debridement per Dr. Koch, ID consultation pending for Saturday per discussion with ID, continue daily dressing changes per Podiatry/Wound RN discretion, PRN oral/IV regimen, offloading and partial weight bearing status, no OR intention. Per discussion with Dr. Koch potential discharge Saturday pending dressing take-down/re-assessment and ID input. Altering pain regimen as noted, patient education that long-acting narcotic only short-term. 2. Diabetes mellitus type II, uncontrolled: Hold oral home regimen, continue home insulin regimen, hemoglobin A1c 10.3%, nutrition consultation for education and teaching, ADA diet, accu checks w/ ISS. 3. Hypertension: Continue home regimen including Norvasc, hydrochlorothiazide, lisinopril with hold parameters, PRN hydralazine. 4. PTSD: Continue as needed low-dose benzodiazepine regimen. 5. Chronic pain syndrome, degenerative disc disease: Patient following with chronic pain management, we will temporarily hold home regimen and broaden given acute presentation with acute pain on chronic with oral and IV overlap. Altering pain regimen as noted, patient education that long-acting narcotic only short-term. Continue patient home chronic Lyrica regimen concurrently. 6. Chronic COPD: Not on any routine inhalers, PRN albuterol, HOB, IS parameters. 7. Former tobacco use: Encourage continued tobacco cessation. 8. Morbid Obesity: Weight loss and lifestyle changes encouraged, nutrition consulted. 9. GERD: We will continue famotidine at this time. 10. LANA: CPAP nightly. 11. DVT prophylaxis: SCDs, lovenox. Charges/Coding Visit Charges Inpatient E&M: 60863 Subs Hosp L2
[2020-10-09 07:16] VITALS: O2SAT 95
[2020-10-09 07:33] VITALS: BP 140/79; PULSE 75; RESP 16; TEMP 36.6; O2SAT 100
[2020-10-09 07:36] LABS: Bedside Glucose 145 mg/dL (70-110)
[2020-10-09] MEDS: Oxymetazoline 0.05% 1 SPRAY SPRAY.BTL NASAL ×2 (07:41→21:35)
[2020-10-09] MEDS: Juven (unflavored) Packet 1 PACKET PO ×2 (08:21→16:44)
[2020-10-09] MEDS: Insulin Human 75/25 Kwickpen 55 UNIT SC ×2 (08:25→17:38)
[2020-10-09] MEDS: morphine SR 15 MG Tablet PO ×2 (08:25→21:49)
--- NOTE | 2020-10-09 08:36 | PCM.PROGNOTE ---
Subjective Subjective Patient was seen this morning for follow up bilateral 1st toe ulcerations. He relates he is feeling better, denies any fever, chills, nausea or vomiting. Objective Data Objective Data Vital Signs: Vital Signs Temp Pulse Resp BP Pulse Ox 97.8 F 75 16 140/79 H 100 10/09/20 07:33 10/09/20 07:33 10/09/20 07:33 10/09/20 07:33 10/09/20 07:33 Oxygen Delivery Method Room Air Weight: 148.5 kg Body Mass Index (BMI) 42.5 Intake & Output: Intake and Output for Last 24 Hours 10/07/20 10/08/20 10/09/20 23:59 23:59 23:59 Intake Total 1431.25 / 1431.25 4010.01 / 4460.01 1717.92 / 1717.92 Output Total 600 / 600 Balance 831.25 / 831.25 4010.01 / 4460.01 1717.92 / 1717.92 Lab / Micro Data Result Diagrams: 10/09/20 05:10 10/09/20 05:10 Labs: Laboratory Results - last 24 hr 10/08/20 10/08/20 10/08/20 11:14 11:20 16:36 WBC RBC Hgb Hct MCV MCH MCHC RDW Std Deviation RDW Coeff of Mimi Plt Count MPV Immature Gran % (Auto) Neut % (Auto) Lymph % (Auto) Wilkinson % (Auto) Eos % (Auto) Baso % (Auto) Absolute Neuts (auto) Absolute Lymphs (auto) Nucleated RBC % Sodium Potassium Chloride Carbon Dioxide Anion Gap BUN Creatinine Estim Creat Clear Calc Est GFR (MDRD) Af Amer Est GFR (MDRD) Non-Af BUN/Creatinine Ratio Glucose Calcium Total Bilirubin AST ALT Alkaline Phosphatase Total Protein Albumin Globulin Albumin/Globulin Ratio Vancomycin Trough 13.5 POC Glucose 262 H 288 H 10/08/20 10/09/20 10/09/20 21:44 05:10 05:10 WBC 7.1 RBC 4.58 L Hgb 13.8 Hct 39.8 L MCV 86.9 MCH 30.1 MCHC 34.7 RDW Std Deviation 40.3 RDW Coeff of Mimi 12.8 Plt Count 217 MPV 9.8 Immature Gran % (Auto) 1.300 H Neut % (Auto) 44.6 L Lymph % (Auto) 37.0 Wilkinson % (Auto) 13.1 H Eos % (Auto) 3.2 Baso % (Auto) 0.8 Absolute Neuts (auto) 3.2 Absolute Lymphs (auto) 2.63 Nucleated RBC % 0 Sodium 139 Potassium 3.8 Chloride 107 Carbon Dioxide 25.0 Anion Gap 7 BUN 16 Creatinine 0.90 Estim Creat Clear Calc 98.64 Est GFR (MDRD) Af Amer 111 Est GFR (MDRD) Non-Af 92 BUN/Creatinine Ratio 17.8 Glucose 150 H Calcium 8.8 Total Bilirubin 0.40 AST 35 ALT 40 Alkaline Phosphatase 75 Total Protein 7.0 Albumin 2.9 L Globulin 4.1 Albumin/Globulin Ratio 0.7 L Vancomycin Trough POC Glucose 130 H 10/09/20 07:24 WBC RBC Hgb Hct MCV MCH MCHC RDW Std Deviation RDW Coeff of Mimi Plt Count MPV Immature Gran % (Auto) Neut % (Auto) Lymph % (Auto) Wilkinson % (Auto) Eos % (Auto) Baso % (Auto) Absolute Neuts (auto) Absolute Lymphs (auto) Nucleated RBC % Sodium Potassium Chloride Carbon Dioxide Anion Gap BUN Creatinine Estim Creat Clear Calc Est GFR (MDRD) Af Amer Est GFR (MDRD) Non-Af BUN/Creatinine Ratio Glucose Calcium Total Bilirubin AST ALT Alkaline Phosphatase Total Protein Albumin Globulin Albumin/Globulin Ratio Vancomycin Trough POC Glucose 145 H Micro: Microbiology 10/07/20 17:10 Wound - Left Foot Gram Stain - Final 10/07/20 17:10 Wound - Left Foot Wound Culture - Preliminary Beta streptococcus GPC Poss Enterococcus sp 10/07/20 14:25 Wound - Toe Gram Stain - Final 10/07/20 14:25 Wound - Toe Wound Culture - Final Streptococcus agalactiae (B) 10/07/20 17:15 Wound - Right Foot Gram Stain - Final 10/07/20 17:15 Wound - Right Foot Wound Culture - Preliminary No growth-Final to follow Radiography Diagnostic Testing: Radiology Impression Lower Extremity MRI 10/07/20 18:00 IMPRESSION: Cellulitis with ulcer of the first digit but no abscess or osteomyelitis. Electronically Signed: Miguel Jimenez MD at 12:17 EDT Tel , Service support , Physical Exam Const alert, oriented x3 and no apparent distress Orientation / Consciousness: awake, oriented to person, oriented to place and oriented to time Skin Skin Narrative: Ulceration left 1st toe to the dorsal medial aspect as well as the plantar medial aspect, tissues healthy and viable today - down to the fascia layer, there is cellulitis, erythema, edema which is resolving, streaking to the foot is resolved, there is no maloder, no probe to bone. There is ulceration to the right plantar medial 1st toe with healthy viable tissue down to the subcutaneous tissue with no evidence of infection at this time, no probe to bone, no fluctuance, no crepitus, no visible abscess. Pedal pulses palpable bilateral foot. CFT < 2 seconds to all toes bilateral. No ankle or leg edema bilateral. No calf pain bilateral. There is peripheral neuropathy bilateral foot - no pain to the foot or ankle with palpation or with ROM bilateral. No evidence of charcot neuroarthropathy clinically bilateral foot / ankle. Muscle strength intact to the foot and ankle bilateral. Limited 1st MTPJ ROM bilateral. Assessment & Plan Assessment/Plan (1) Cellulitis of left lower limb: PLAN: Re-evaluation performed. Reviewed diagnostic data. Reviewed bilateral foot xrays, no gas, no evidence of osteomyelitis. Patient has obtained left foot MRI, reviewed images and report - no abscess and no osteomyelitis. WBC normal today, patient afebrile. Clinically feet continue to improve, left foot cellulitis resolving, no visible abscess, no purulence today, tissues healthy and viable bilateral feet. Due to the findings with significant improvement noted today no podiatry surgery plans at this time. Cultures have been obtained and results pending. Patient is on IV antibiotics - Vancomycin and Zosyn. Continue with local wound care to ulceration sites - change daily. LEAS have been ordered and patient has good arterial flow to bilateral feet. No weightbearing forefoot bilateral, ok for heel weightbearing bilateral. Reviewed importance of proper blood sugar control to help optimize wound healing, and foot/ankle health. Podiatry will continue to follow. 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
[2020-10-09] MEDS: Lisinopril 20 MG Tablet PO (09:31)
[2020-10-09] MEDS: amLODIPine 10 MG Tablet PO (09:31)
[2020-10-09] MEDS: hydroCHLOROthiazide 25 MG Tablet PO (09:31)
[2020-10-09] MEDS: Famotidine 20 MG Tablet PO ×2 (09:31→21:36)
[2020-10-09] MEDS: Enoxaparin 40 MG/0.4 ML Syringe SC ×2 (09:32→21:35)
[2020-10-09] MEDS: Pregabalin 75 MG Capsule 150 MG PO ×2 (09:32→21:49)
[2020-10-09] MEDS: Insulin Lispro 100 UNIT/ML INSULN.PEN SC ×3 (10:50→21:44)
[2020-10-09 11:01] LABS: Bedside Glucose 191 mg/dL (70-110)
[2020-10-09 12:01] LABS: Vancomycin, Trough Level 15.7 ug/mL (5.0-15.0)
[2020-10-09 14:36] VITALS: BP 123/71; PULSE 79; RESP 16; TEMP 36.9; O2SAT 98
[2020-10-09 16:56] LABS: Bedside Glucose 213 mg/dL (70-110)
--- NOTE | 2020-10-09 18:35 | PHA.PHARE_ITS ---
Consult Pharmacy has been consulted to manage selected antiobiotic: Vancomycin Type of Consult: Follow-up Suspected Infection: Skin/Soft tissue Labs: Sodium 139 mmol/L (136-145) 10/09/20 05:10 Potassium 3.8 mmol/L (3.5-5.1) 10/09/20 05:10 Chloride 107 mmol/L (98-107) 10/09/20 05:10 Carbon Dioxide 25.0 mmol/L (21.0-32.0) 10/09/20 05:10 Anion Gap 7 (5-15) 10/09/20 05:10 BUN 16 mg/dL (7-18) 10/09/20 05:10 Creatinine 0.90 mg/dL (0.70-1.30) 10/09/20 05:10 Est GFR (MDRD) Af Amer 111 mL/min (>60) 10/09/20 05:10 Est GFR (MDRD) Non-Af 92 mL/min (>60) 10/09/20 05:10 BUN/Creatinine Ratio 17.8 RATIO (10-20) 10/09/20 05:10 Glucose 150 mg/dL (74-106) H 10/09/20 05:10 Vancomycin Trough 15.7 ug/mL (5.0-15.0) H 10/09/20 11:16 Microbiology: Microbiology 10/07/20 14:54 Blood Culture (Wb) - Right Hand Blood Culture - Preliminary No growth in 48 hours. 10/07/20 14:43 Blood Culture (Wb) - Anticubital Left Blood Culture - Preliminary No growth in 48 hours. 10/07/20 17:10 Wound - Left Foot Gram Stain - Final 10/07/20 17:10 Wound - Left Foot Wound Culture - Preliminary Streptococcus group B GPC Poss Enterococcus sp 10/07/20 14:25 Wound - Toe Gram Stain - Final 10/07/20 14:25 Wound - Toe Wound Culture - Final Streptococcus agalactiae (B) 10/07/20 14:25 Wound - Toe Anaerobic Culture - Preliminary No growth in 48 hours. 10/07/20 17:15 Wound - Right Foot Gram Stain - Final 10/07/20 17:15 Wound - Right Foot Wound Culture - Preliminary No growth-Final to follow Goal Trough: 15-20 mcg/mL Pharmacy Plan for Drug Dosing: VANCOMYCIN LEVEL RECEIVED Current Vancomycin Dose: 1250mg iv q8h (04,12,20) Number of Doses Received: 1000mg iv x1 on 10/07/20 at [facility], Vancomycin 1250mg iv x5 doses Vancomycin Level: 15.7 Hours Since Last Dose: 7 Renal Function: SrCr 0.90 Renal Function Trend: SrCr slowly decreasing (improving) Lab/Micro: Vancomycin Plan/Comments: ordered goal trough is 15-20. pt is now most likely at steady state. recommend continuing current dose of 1250mg q8h and checking another level in 2 days Pending Level: 10/11/20 at 1130 Pharmacy Service will continue to monitor and adjust dosing as required. Follow-Up Labs: Trough Vancomycin - 10/11/20 at 1130
[2020-10-09 20:08] VITALS: BP 159/79; PULSE 75; RESP 18; TEMP 36.7; O2SAT 98
[2020-10-09 21:55] LABS: Bedside Glucose 155 mg/dL (70-110)
[2020-10-10 00:04] VITALS: PULSE 81; RESP 18; O2SAT 98
[2020-10-10 02:50] VITALS: BP 115/64; PULSE 70; RESP 18; TEMP 37.2; O2SAT 98
[2020-10-10] MEDS: oxyCODONE 5 MG Tablet 10 MG PO ×4 (02:52→15:43)
[2020-10-10] MEDS: Acetaminophen 325 MG Tablet 650 MG PO ×4 (02:52→15:44)
[2020-10-10 03:57] VITALS: PULSE 80; RESP 16; O2SAT 96
[2020-10-10 06:11] LABS: Absolute Lymphocyte Count 2.07 X10^3/uL (0.83-4.51); Absolute Neutrophil Count 4.3 X10^3/uL (2.0-7.7); Basophil# 0.07 X10^3/uL; Basophil% 0.9 % (0-1); Eosinophil# 0.18 X10^3/uL; Eosinophils% 2.3 % (0-5); Hematocrit 37.8 % (40-54); Hemoglobin 12.7 g/dL (13.0-16.5); Lymphocyte # 2.07 X10^3/ul (0.83-4.51); Mean Corp Hgb Conc 33.6 g/dL (32-36); Mean Corpuscular Hgb 29.6 pg (27.0-32.0); Mean Corpuscular Volume 88.1 fL (80-94); Mean Platelet Vol. 10.1 fl (6.2-12.0); Monocyte% 13.1 % (0-10); NRBC Flagged by Analyzer 0 % (0-5); Neutrophil # 4.25 X10^3/uL (2.7-7.7); Neutrophil % 55.5 % (47-70); Platelet Count 205 K/mm3 (150-450); RBC Distribution Width CV 12.7 % (11.6-14.6); RBC Distribution Width SD 41.2 fl (35.1-43.9); Red Blood Count 4.29 M/mm3 (4.6-6.2); White Blood Count 7.7 K/mm3 (4.4-11.0)
[2020-10-10 06:37] LABS: ALB/GLOB Ratio 0.7 RATIO (0.9-2.4); AST(SGOT) 33 U/L (15-37); Alanine Aminotransfer ALT/SGPT 39 U/L (16-61); Albumin, Serum 2.8 g/dL (3.2-5.0); Alkaline Phosphatase 61 U/L (45-117); Anion Gap 5 (5-15); BUN 13 mg/dL (7-18); BUN/Creat Ratio 15.2 RATIO (10-20); Calcium,Total 8.9 mg/dL (8.5-10.1); Chloride 109 mmol/L (98-107); Creatinine, Serum 0.86 mg/dL (0.70-1.30); EST Glomerular Filtration Rate 97 mL/min (>60); Est Glom Filt Rate - Afr Amer 117 mL/min (>60); Estimated Creatinine Clearance 103.23 ml/min; Globulin 3.8 g/dL (2.2-4.2); Glucose 161 mg/dL (74-106); Potassium 3.9 mmol/L (3.5-5.1); Protein, Total 6.6 g/dL (6.4-8.2); Sodium Level 140 mmol/L (136-145)
--- NOTE | 2020-10-10 06:39 | PCM.PROGNOTE ---
Subjective Subjective Patient was seen this morning for follow up bilateral 1st toe ulcerations. He relates he continues to feel better. He denies any fever, chills, nausea foot pain, or vomiting. Objective Data Objective Data Vital Signs: Vital Signs Temp Pulse Resp BP Pulse Ox 98.9 F 80 16 115/64 96 10/10/20 02:50 10/10/20 03:57 10/10/20 03:57 10/10/20 02:50 10/10/20 03:57 Oxygen Delivery Method Room Air Weight: 148.41 kg Body Mass Index (BMI) 42.5 Intake & Output: Intake and Output for Last 24 Hours 10/08/20 10/09/20 10/10/20 23:59 23:59 23:59 Intake Total 4010.01 / 4460.01 3957.50 / 4897.50 2768.83 / 2768.83 Balance 4010.01 / 4460.01 3957.50 / 4897.50 2768.83 / 2768.83 Lab / Micro Data Result Diagrams: 10/10/20 04:58 10/10/20 04:58 Labs: Laboratory Results - last 24 hr 10/09/20 10/09/20 10/09/20 07:24 10:43 11:16 WBC RBC Hgb Hct MCV MCH MCHC RDW Std Deviation RDW Coeff of Mimi Plt Count MPV Immature Gran % (Auto) Neut % (Auto) Lymph % (Auto) [place]ac[place] % (Auto) Eos % (Auto) Baso % (Auto) Absolute Neuts (auto) Absolute Lymphs (auto) Nucleated RBC % Sodium Potassium Chloride Carbon Dioxide Anion Gap BUN Creatinine Estim Creat Clear Calc Est GFR (MDRD) Af Amer Est GFR (MDRD) Non-Af BUN/Creatinine Ratio Glucose Calcium Total Bilirubin AST ALT Alkaline Phosphatase Total Protein Albumin Globulin Albumin/Globulin Ratio Vancomycin Trough 15.7 H POC Glucose 145 H 191 H 10/09/20 10/09/20 10/10/20 16:39 21:43 04:58 WBC 7.7 RBC 4.29 L Hgb 12.7 L Hct 37.8 L MCV 88.1 MCH 29.6 MCHC 33.6 RDW Std Deviation 41.2 RDW Coeff of Mimi 12.7 Plt Count 205 MPV 10.1 Immature Gran % (Auto) 1.200 H Neut % (Auto) 55.5 Lymph % (Auto) 27.0 [place] % (Auto) 13.1 H Eos % (Auto) 2.3 Baso % (Auto) 0.9 Absolute Neuts (auto) 4.3 Absolute Lymphs (auto) 2.07 Nucleated RBC % 0 Sodium Potassium Chloride Carbon Dioxide Anion Gap BUN Creatinine Estim Creat Clear Calc Est GFR (MDRD) Af Amer Est GFR (MDRD) Non-Af BUN/Creatinine Ratio Glucose Calcium Total Bilirubin AST ALT Alkaline Phosphatase Total Protein Albumin Globulin Albumin/Globulin Ratio Vancomycin Trough POC Glucose 213 H 155 H 10/10/20 04:58 WBC RBC Hgb Hct MCV MCH MCHC RDW Std Deviation RDW Coeff of Mimi Plt Count MPV Immature Gran % (Auto) Neut % (Auto) Lymph % (Auto) [place] % (Auto) Eos % (Auto) Baso % (Auto) Absolute Neuts (auto) Absolute Lymphs (auto) Nucleated RBC % Sodium 140 Potassium 3.9 Chloride 109 H Carbon Dioxide 26.0 Anion Gap 5 BUN 13 Creatinine 0.86 Estim Creat Clear Calc 103.23 Est GFR (MDRD) Af Amer 117 Est GFR (MDRD) Non-Af 97 BUN/Creatinine Ratio 15.2 Glucose 161 H Calcium 8.9 Total Bilirubin 0.50 AST 33 ALT 39 Alkaline Phosphatase 61 Total Protein 6.6 Albumin 2.8 L Globulin 3.8 Albumin/Globulin Ratio 0.7 L Vancomycin Trough POC Glucose Micro: Microbiology 10/07/20 14:54 Blood Culture (Wb) - Right Hand Blood Culture - Preliminary No growth in 48 hours. 10/07/20 14:43 Blood Culture (Wb) - Anticubital Left Blood Culture - Preliminary No growth in 48 hours. 10/07/20 17:10 Wound - Left Foot Gram Stain - Final 10/07/20 17:10 Wound - Left Foot Wound Culture - Preliminary Streptococcus group B GPC Poss Enterococcus sp 10/07/20 14:25 Wound - Toe Gram Stain - Final 10/07/20 14:25 Wound - Toe Wound Culture - Final Streptococcus agalactiae (B) 10/07/20 14:25 Wound - Toe Anaerobic Culture - Preliminary No growth in 48 hours. 10/07/20 17:15 Wound - Right Foot Gram Stain - Final 10/07/20 17:15 Wound - Right Foot Wound Culture - Preliminary No growth-Final to follow Physical Exam Const alert, oriented x3 and no apparent distress Orientation / Consciousness: awake, oriented to person, oriented to place and oriented to time Skin Skin Narrative: Ulceration left 1st toe to the dorsal medial aspect as well as the plantar medial aspect, tissues healthy and viable today - down to the fascia layer, there is cellulitis with decreased erythema intensity per previously marked area, decreased edema. no maloder, no probe to bone. There is ulceration to the right plantar medial 1st toe with healthy viable tissue down to the subcutaneous tissue with no evidence of infection at this time, no probe to bone, no fluctuance, no crepitus, no visible abscess. Pedal pulses palpable bilateral foot. CFT < 2 seconds to all toes bilateral. No ankle or leg edema bilateral. No calf pain bilateral. There is peripheral neuropathy bilateral foot - no pain to the foot or ankle with palpation or with ROM bilateral. No evidence of charcot neuroarthropathy clinically bilateral foot / ankle. Muscle strength intact to the foot and ankle bilateral. Limited 1st MTPJ ROM bilateral. Assessment & Plan Assessment/Plan (1) Cellulitis of left lower limb: PLAN: Re-evaluation performed. Reviewed diagnostic data. Reviewed prior bilateral foot xrays, no gas, no evidence of osteomyelitis. Patient has obtained left foot MRI, reviewed images and report - no abscess and no osteomyelitis. WBC normal today (7.7), patient afebrile. Left foot cellulitis resolving, no visible abscess, no purulence today, tissues healthy and viable bilateral feet. No foot surgery plans at this time. Cultures have been obtained and results pending; so far strep and enterococcus. Patient is on IV antibiotics - Vancomycin and Zosyn. ID on consult and input will be appreciate for deep space left foot infection. Continue with local wound care to ulceration sites - change daily. LEAS have been ordered and patient has good arterial flow to bilateral feet. No weightbearing forefoot bilateral, ok for heel weightbearing bilateral. Reviewed importance of proper blood sugar control to help optimize wound healing, and foot/ankle health. Podiatry will continue to follow. Follow up at wound center at time of discharge. (2) Non-pressure 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: (3) Non-pressure chronic ulcer of other part of right foot with fat layer exposed: (4) Type 2 diabetes mellitus with diabetic polyneuropathy: QUALIFIERS: Diabetes mellitus director long term care insulin use: with director long term care use Qualified Code(s): E11.42 - Type 2 diabetes mellitus with diabetic polyneuropathy; Z79.4 - shelter (current) use of insulin
--- NOTE | 2020-10-10 07:22 | NURSING ---
wound photo: left great toe
[2020-10-10] MEDS: Insulin Lispro 100 UNIT/ML INSULN.PEN SC ×2 (08:20→12:25)
[2020-10-10] MEDS: Juven (unflavored) Packet 1 PACKET PO (08:20)
[2020-10-10] MEDS: Oxymetazoline 0.05% 1 SPRAY SPRAY.BTL NASAL (08:23)
[2020-10-10] MEDS: Enoxaparin 40 MG/0.4 ML Syringe SC (08:23)
[2020-10-10] MEDS: hydroCHLOROthiazide 25 MG Tablet PO (08:25)
[2020-10-10] MEDS: Famotidine 20 MG Tablet PO (08:26)
[2020-10-10] MEDS: Lisinopril 20 MG Tablet PO (08:26)
[2020-10-10] MEDS: amLODIPine 10 MG Tablet PO (08:26)
[2020-10-10] MEDS: Pregabalin 75 MG Capsule 150 MG PO (08:32)
[2020-10-10] MEDS: morphine SR 15 MG Tablet PO (08:32)
[2020-10-10 08:39] VITALS: BP 134/74; PULSE 81; RESP 18; TEMP 36.6; O2SAT 96
[2020-10-10 09:01] LABS: Bedside Glucose 191 mg/dL (70-110)
[2020-10-10] MEDS: Insulin Human 75/25 Kwickpen 55 UNIT SC (09:02)
[2020-10-10 11:16] LABS: Bedside Glucose 280 mg/dL (70-110)
--- NOTE | 2020-10-10 13:45 | NURSING ---
Called and left message at the [facility] for pt referral. The wound center to call pt back with appt time.
--- NOTE | 2020-10-10 13:50 | CASEMGMT ---
Addendum entered by Sonja Nguyen 10/10/20 14:08: Script received and sent to [facility]. Patient to pickup walker at [place] [facility]. Original Note: SAMIRA ROBERTSON in to discuss discharge planning with patient. Patient states he will need walker at discharge. SAMIRA ROBERTSON provided list of DME and patient prefers [employer]. ID in room and patient can discharge on oral antibiotics. Patient states his friend Alie can assist with dressing changes. SAMIRA ROBERTSON updated hospitalist and awaiting script for walker. Patient states he prefers to pepper picker walker from [facility]. SAMIRA ROBERTSON to send referral to [facility] once script received.
--- NOTE | 2020-10-10 13:53 | PCM.DC ---
Discharge Instructions Diet Discharge Diet: 1800 Calorie Control Diet Activity Discharge Activity: Return to Normal Activity Weight Bearing Status: Weight bearing as tolerated Dressing / Incision Call your doctor if your incision/area has: Continuous Slow Oozing, Sudden Increased Bleeding, Increased Pain/ Swelling, Increased Redness and Foul Smelling Discharge Call your doctor if you observe: Fever of 101 or Higher, Shortness of breath, Dizziness, Fainting spells, Chest pain, Increased palpitations (irregular heartbeat) and Uncontrolled pain Follow Up Care Test Results: Test results from this visit will be discussed in further detail at your follow-up appointment, if applicable. Discharge Plan Admission Admit Date/Time: 10/07/20 13:34 Primary Reason for Your Visit: Bilateral lower extremity cellulitis, diabetic infection Attending Provider: Kelsey Morrison Consulting Providers: Donta Koch ; Dunae Lynne Discharge Orders/Prescriptions Prescriptions: New morphine 15 mg Tablet Extended Release 15 mg PO BID 5 Days Qty: 10 RF: 0 amoxicillin-pot clavulanate [Augmentin] 875-125 mg tablet 1 tab PO BID Qty: 14 RF: 0 Continued alprazolam [Xanax] 0.5 MG tablet 0.5 mg PO BID PRN PRN (Reason: PTSD) RF: 0 oxycodone-acetaminophen [Percocet] 1 EACH tablet 1 tab PO Q6H PRN PRN (Reason: Pain) RF: 0 amlodipine 10 MG tablet 10 mg PO DAILY RF: 0 hydrochlorothiazide 25 MG tablet 25 mg PO DAILY RF: 0 esomeprazole magnesium [Nexium] 20 MG capsule 20 mg PO DAILY RF: 0 pregabalin [Lyrica] 150 MG capsule 150 mg PO BID RF: 0 glipizide 10 mg Tablet Extended Release 24hr 10 mg PO DAILY RF: 0 Jardiance 25 mg Tablet 25 mg PO DAILY RF: 0 lisinopril 20 mg Tablet 20 mg PO DAILY RF: 0 Trulicity 4.5 mg/0.5 mL Pen Injector 4.5 mg SUBCUT QWEEK RF: 0 Humulin 70/30 Insulin Pen 55 u miscellaneous CONT RF: 0 Flexall 16 % Gel 1 ea TOPICAL Q4H PRN (Reason: Muscle Pain) RF: 0 Referrals / Follow Up: Romel Abraham [Other] Clinic,Wound [None] - Within 1 Week Disposition Disposition (needs filled in before D/C Order can be placed): Home, self care
--- NOTE | 2020-10-10 14:02 | DS.PCM_ITS ---
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 Comment: 10/09/20 07:33 Consult: Infectious Disease Routine Consulting Provider: Duane Lynne Reason for Consult: Diabetic foot wounds EMERGENT Consult: No Notified: Yes Date Notified:: 10/10/20 Time Notified: 09:06 Method of Notification: office Reason For Visit: DIABETIC FOOT INFECTION, LEFT Diagnosis Discharge Diagnosis (1) Cellulitis of left lower limb: Status: Acute Code(s): L03.116 - Cellulitis of left lower limb (2) Non-pressure 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: Status: Chronic Code(s): L97.523 - Non-pressure 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 (3) Non-pressure chronic ulcer of other part of right foot with fat layer exposed: Status: Chronic Code(s): L97.512 - Non-pressure chronic ulcer of other part of right foot with fat layer exposed (4) Type 2 diabetes mellitus with diabetic polyneuropathy: Status: Acute Code(s): E11.42 - Type 2 diabetes mellitus with diabetic polyneuropathy Qualifiers: Diabetes mellitus long term care pharmacist insulin use: with long term care pharmacist use Qualified Code(s): E11.42 - Type 2 diabetes mellitus with diabetic polyneuropathy; 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 Medications at Discharge Home Medications alprazolam [Xanax] 0.5 mg PO BID PRN PRN 09/23/15 amlodipine 10 mg PO DAILY 09/23/15 esomeprazole magnesium [Nexium] 20 mg PO DAILY 09/23/15 hydrochlorothiazide 25 mg PO DAILY 09/23/15 oxycodone-acetaminophen [Percocet] 1 tab PO Q6H PRN PRN 09/23/15 pregabalin [Lyrica] 150 mg PO BID 09/23/15 Humulin 70/30 Insulin Pen 55 u MISCELLANEOUS CONT 10/07/20 Jardiance 25 mg PO DAILY 10/07/20 Trulicity 4.5 mg SUBCUT QWEEK 10/07/20 glipizide 10 mg PO DAILY 10/07/20 lisinopril 20 mg PO DAILY 10/07/20 Flexall 1 ea TOPICAL Q4H PRN 10/08/20 amoxicillin-pot clavulanate [Augmentin] 1 tab PO BID #14 tab 10/10/20 morphine 15 mg PO BID 5 Days #10 tab 10/10/20 Hospital Course Operations None Procedures - (Bedside excisional debridement of left first toe wound/ulcer) Summary of Care Provided Minutes Spent on Discharge: 32 Hospital Course: This is a 60 years old male patient was directly admitted from outside facility for right bunion, left great toe blister, redness and swelling with chills and fatigue, found to have bilateral lower extremity cellulitis more on the left lower extremity with left big toe infected diabetic ulcer and surrounding foot cellulitis. Podiatry medicine consulted and patient underwent bedside excisional debridement of the left big toe ulcer/infected wound. He was treated with IV Unasyn and vancomycin. He had arterial ultrasound of both legs that showed no evidence of peripheral vascular disease. MRI of the left leg and foot showed no evidence of osteomyelitis. Patient remained afebrile thr oughout admission. With IV antibiotic therapy, pain, swelling and erythema of the left leg and foot improved. Infectious disease consulted and Dr. Lynne recommended to complete treatment with Augmentin twice daily for 7 days. Blood culture showed no growth in 48 hours. Wound culture revealed Streptococcus agalactiae and Enterococcus faecalis. Patient discharged home in a stable medical condition, discharged on Augmentin 875/125 mg p.o. twice daily for 7 days, continued on his previous home medications without any changes, plan to follow-up with wound clinic in 1 week, patient will need follow-up with podiatry as outpatient. Physical Exam Const alert, oriented x3, no apparent distress and no limitations General Appearance: cooperative, comfortable and well kempt HEENT normocephalic, head/scalp atraumatic and moist oral mucous membranes Head and Scalp: normocephalic and atraumatic Eyes PERRL, EOMs intact bilaterally, conjunctivae normal and no scleral icterus General Eye: normal appearance of both eyes Periorbital: periorbital findings normal Neck no lymphadenopathy, supple, no meningeal signs, no JVD and no carotid bruits General: trachea midline Thyroid: thyroid normal Resp normal respiratory effort, normal air movement and clear to auscultation bilaterally Auscultation: Negative for crackles, rales, rhonchi or wheezes Cardio regular rate, regular rhythm, S1 normal heart sound, S2 normal heart sound, no murmurs and no JVD Peripheral Pulses: pulses 2+ throughout GI normal to inspection, nondistended, normoactive bowel sounds, soft to palpation, non-tender and non-distended; Negative for hepatosplenomegaly Auscultation: normoactive bowel sounds Extremity normal to inspection, full ROM and no clubbing, cyanosis or edema Skin no rashes or lesions noted, no wounds and no petechiae Neuro oriented x3, CN's II-XII intact bilaterally and moves all extremities Sensorium / Orientation: alert Speech: speech normal Motor Exam: strength 5/5 throughout Psych mental status grossly normal, affect normal and denies hallucinations ABG / Lab / Microbiology Data Result Diagrams: 10/10/20 04:58 10/10/20 04:58 Laboratory: Laboratory Results - last 24 hr 10/09/20 10/09/20 10/10/20 16:39 21:43 04:58 WBC 7.7 RBC 4.29 L Hgb 12.7 L Hct 37.8 L MCV 88.1 MCH 29.6 MCHC 33.6 RDW Std Deviation 41.2 RDW Coeff of Mimi 12.7 Plt Count 205 MPV 10.1 Immature Gran % (Auto) 1.200 H Neut % (Auto) 55.5 Lymph % (Auto) 27.0 Kinney % (Auto) 13.1 H Eos % (Auto) 2.3 Baso % (Auto) 0.9 Absolute Neuts (auto) 4.3 Absolute Lymphs (auto) 2.07 Nucleated RBC % 0 Sodium Potassium Chloride Carbon Dioxide Anion Gap BUN Creatinine Estim Creat Clear Calc Est GFR (MDRD) Af Amer Est GFR (MDRD) Non-Af BUN/Creatinine Ratio Glucose Calcium Total Bilirubin AST ALT Alkaline Phosphatase Total Protein Albumin Globulin Albumin/Globulin Ratio POC Glucose 213 H 155 H 10/10/20 10/10/20 10/10/20 04:58 08:17 11:04 WBC RBC Hgb Hct MCV MCH MCHC RDW Std Deviation RDW Coeff of Mimi Plt Count MPV Immature Gran % (Auto) Neut % (Auto) Lymph % (Auto) Kinney % (Auto) Eos % (Auto) Baso % (Auto) Absolute Neuts (auto) Absolute Lymphs (auto) Nucleated RBC % Sodium 140 Potassium 3.9 Chloride 109 H Carbon Dioxide 26.0 Anion Gap 5 BUN 13 Creatinine 0.86 Estim Creat Clear Calc 103.23 Est GFR (MDRD) Af Amer 117 Est GFR (MDRD) Non-Af 97 BUN/Creatinine Ratio 15.2 Glucose 161 H Calcium 8.9 Total Bilirubin 0.50 AST 33 ALT 39 Alkaline Phosphatase 61 Total Protein 6.6 Albumin 2.8 L Globulin 3.8 Albumin/Globulin Ratio 0.7 L POC Glucose 191 H 280 H Microbiology: Microbiology 10/07/20 17:15 Gram Stain - Final Wound - Right Foot Wound Culture - Final No growth aerobically. Anaerobic Culture - Preliminary No growth in 48 hours. 10/07/20 17:10 Gram Stain - Final Wound - Left Foot Wound Culture - Final Streptococcus agalactiae (B) Enterococcus faecalis Anaerobic Culture - Preliminary Checking for anaerobes, further studies to follow. 10/07/20 14:54 Blood Culture - Preliminary Blood Culture (Wb) - Right Hand No growth in 48 hours. 10/07/20 14:43 Blood Culture - Preliminary Blood Culture (Wb) - Anticubital Left No growth in 48 hours. Microbiology 10/07/20 17:15 Wound - Right Foot Gram Stain - Final 10/07/20 17:15 Wound - Right Foot Wound Culture - Final No growth aerobically. 10/07/20 17:15 Wound - Right Foot Anaerobic Culture - Preliminary No growth in 48 hours. 10/07/20 17:10 Wound - Left Foot Gram Stain - Final 10/07/20 17:10 Wound - Left Foot Wound Culture - Final Streptococcus agalactiae (B) Enterococcus faecalis 10/07/20 17:10 Wound - Left Foot Anaerobic Culture - Preliminary Checking for anaerobes, further studies to follow. 10/07/20 14:54 Blood Culture (Wb) - Right Hand Blood Culture - Preliminary No growth in 48 hours. 10/07/20 14:43 Blood Culture (Wb) - Anticubital Left Blood Culture - Preliminary No growth in 48 hours. 10/07/20 14:25 Wound - Toe Gram Stain - Final 10/07/20 14:25 Wound - Toe Wound Culture - Final Streptococcus agalactiae (B) 10/07/20 14:25 Wound - Toe Anaerobic Culture - Preliminary No growth in 48 hours. D/C Instructions Discharge Diet: 1800 Calorie Control Diet Weight Bearing Status: Weight bearing as tolerated Call your doctor if your incision/area has: Continuous Slow Oozing, Sudden Increased Bleeding, Increased Pain/ Swelling, Increased Redness and Foul Smelling Discharge Call your doctor if you observe: Fever of 101 or Higher, Shortness of breath, Dizziness, Fainting spells, Chest pain, Increased palpitations (irregular heartbeat) and Uncontrolled pain Meaningful Use Info Meaningful Use Diagnoses (Choose all that apply): None applicable Discharge Plan Admission Admit Date/Time: 10/07/20 13:34 Primary Reason for Your Visit: Bilateral lower extremity cellulitis, diabetic infection Attending Provider: Kelsey Morrison Consulting Providers: Donta Koch ; Duane Lynne Instructions Additional Instructions / Restrictions: Wash bilateral feet daily with soap and water. pat dry. apply betadine gauze dressings. cover with dry dressings and wrap with gauze roll. change daily and as needed. please continue with this dressing until seen [facility]. Discharge Orders/Prescriptions Prescriptions: New morphine 15 mg Tablet Extended Release 15 mg PO BID 5 Days Qty: 10 RF: 0 amoxicillin-pot clavulanate [Augmentin] 875-125 mg tablet 1 tab PO BID Qty: 14 RF: 0 Continued alprazolam [Xanax] 0.5 MG tablet 0.5 mg PO BID PRN PRN (Reason: PTSD) RF: 0 oxycodone-acetaminophen [Percocet] 1 EACH tablet 1 tab PO Q6H PRN PRN (Reason: Pain) RF: 0 amlodipine 10 MG tablet 10 mg PO DAILY RF: 0 hydrochlorothiazide 25 MG tablet 25 mg PO DAILY RF: 0 esomeprazole magnesium [Nexium] 20 MG capsule 20 mg PO DAILY RF: 0 pregabalin [Lyrica] 150 MG capsule 150 mg PO BID RF: 0 glipizide 10 mg Tablet Extended Release 24hr 10 mg PO DAILY RF: 0 Jardiance 25 mg Tablet 25 mg PO DAILY RF: 0 lisinopril 20 mg Tablet 20 mg PO DAILY RF: 0 Trulicity 4.5 mg/0.5 mL Pen Injector 4.5 mg SUBCUT QWEEK RF: 0 Humulin 70/30 Insulin Pen 55 u miscellaneous CONT RF: 0 Flexall 16 % Gel 1 ea TOPICAL Q4H PRN (Reason: Muscle Pain) RF: 0 Referrals / Follow Up: Romel Abraham [Other] Clinic,Wound [None] - Within 1 Week Disposition Disposition (needs filled in before D/C Order can be placed): Home, self care Charges/Coding Visit Charges Inpatient E&M: 77441 Disch Hosp
--- NOTE | 2020-10-10 14:17 | PCM.CONS.GEN ---
Assessment & Plan Assessment/Plan (1) Diabetic foot infection: PLAN: Wound cx with GBS and e. faecalis. No osteo seen on MRI or by podiatry on exam. Ok for home with 7 days augmentin. He is going to schedule covid shot. Will follow as needed, thank you, d/w Dr. 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 Started as blister from work boots. Minimal pain, progressive redness and skin breakdown, some chills. Got keflex from urgent care, R foot wound improved, L foot worsened. Has not gotten covid shot. Came to ED, admitted, seen by podiatry, MRI done, feeling better. Full ROS performed and neg except as noted above. [facility] Medical History Chronic pain syndrome COPD exacerbation CPAP (continuous positive airway pressure) dependence DDD (degenerative disc disease) Diabetes mellitus type II, uncontrolled Diabetic foot infection Former tobacco use GERD (gastroesophageal reflux disease) HTN (hypertension) Hypertension Kidney stones Obesity LANA on CPAP Osteoporosis PTSD (post-traumatic stress disorder) PVD (peripheral vascular disease) Rheumatoid arthritis Sleep apnea Sleep apnea Home Medications alprazolam [Xanax] 0.5 mg PO BID PRN PRN 09/23/15 [History Last Taken Unknown] amlodipine 10 mg PO DAILY 09/23/15 [History Last Taken 10/07/20 08:00 1] esomeprazole magnesium [Nexium] 20 mg PO DAILY 09/23/15 [History Last Taken 10/07/20 08:00 1] hydrochlorothiazide 25 mg PO DAILY 09/23/15 [History Last Taken 10/07/20 08:00] oxycodone-acetaminophen [Percocet 10-325 mg Tablet] 1 tab PO Q6H PRN PRN 09/23/15 [History Last Taken 10/06/20 22:00 1] pregabalin [Lyrica] 150 mg PO BID 09/23/15 [History Last Taken 10/06/20 22:00] Humulin 70/30 Insulin Pen 55 u MISCELLANEOUS CONT 10/07/20 [History Last Taken Unknown] dulaglutide [Trulicity] 4.5 mg SUBCUT QWEEK 10/07/20 [History Last Taken Unknown] empagliflozin [Jardiance] 25 mg PO DAILY 10/07/20 [History Last Taken 10/07/20 08:00 1] glipizide 10 mg PO DAILY 10/07/20 [History Last Taken 10/07/20 08:00] lisinopril 20 mg PO DAILY 10/07/20 [History Last Taken 10/07/20 08:00 1] menthol-aloe vera extract [Flexall] 1 ea TOPICAL Q4H PRN 10/08/20 [History Last Taken Unknown] amoxicillin-pot clavulanate [Augmentin] 1 tab PO BID #14 tab 10/10/20 [Rx Last Taken Unknown] morphine 15 mg PO BID 5 Days #10 tab 10/10/20 [Rx Last Taken Unknown] Allergy/AdvReac Type Severity Reaction Status Date / Time codeine Allergy Rash Verified 10/07/20 15:21 Family History (Updated 10/07/20 @ 14:[address] Diana Mendiola MD) Mother Cancer Renal CA Hypertension Diabetes Father Cancer History of NH Lymphoma and Colon CA. Hypertension Diabetes Surgical History (Updated 10/07/20 @ 14:[address] Diana Mendiola MD) History of arthroscopic surgery of shoulder History of exploratory laparotomy History of left shoulder replacement Hx of chest tube placement Status post arthroscopic surgery of left knee Social History (Updated 10/07/20 @ 14:[address] Diana Mendiola MD) household members: none Smoking Status: Former smoker how long ago did patient quit smoking: Quit 18 months prior, 5 cigars daily x 40 years prior to this. alcohol intake: never substance use type: does not use Physical Exam Const alert, oriented x3 and no apparent distress General Appearance: cooperative HEENT normocephalic and head/scalp atraumatic Eyes PERRL and EOMs intact bilaterally Neck supple and No nodes Resp normal air movement and clear to auscultation bilaterally Cardio regular rate and regular rhythm GI normal to inspection, nondistended, normoactive bowel sounds Extremity no clubbing, cyanosis or edema Skin Skin Narrative: reviewed photos Lab / Micro Data Result Diagrams: 10/10/20 04:58 10/10/20 04:58 Labs: Laboratory Results - last 24 hr 10/09/20 10/09/20 10/10/20 16:39 21:43 04:58 WBC 7.7 RBC 4.29 L Hgb 12.7 L Hct 37.8 L MCV 88.1 MCH 29.6 MCHC 33.6 RDW Std Deviation 41.2 RDW Coeff of Mimi 12.7 Plt Count 205 MPV 10.1 Immature Gran % (Auto) 1.200 H Neut % (Auto) 55.5 Lymph % (Auto) 27.0 Wilkinson % (Auto) 13.1 H Eos % (Auto) 2.3 Baso % (Auto) 0.9 Absolute Neuts (auto) 4.3 Absolute Lymphs (auto) 2.07 Nucleated RBC % 0 Sodium Potassium Chloride Carbon Dioxide Anion Gap BUN Creatinine Estim Creat Clear Calc Est GFR (MDRD) Af Amer Est GFR (MDRD) Non-Af BUN/Creatinine Ratio Glucose Calcium Total Bilirubin AST ALT Alkaline Phosphatase Total Protein Albumin Globulin Albumin/Globulin Ratio POC Glucose 213 H 155 H 10/10/20 10/10/20 10/10/20 04:58 08:17 11:04 WBC RBC Hgb Hct MCV MCH MCHC RDW Std Deviation RDW Coeff of Mimi Plt Count MPV Immature Gran % (Auto) Neut % (Auto) Lymph % (Auto) Wilkinson % (Auto) Eos % (Auto) Baso % (Auto) Absolute Neuts (auto) Absolute Lymphs (auto) Nucleated RBC % Sodium 140 Potassium 3.9 Chloride 109 H Carbon Dioxide 26.0 Anion Gap 5 BUN 13 Creatinine 0.86 Estim Creat Clear Calc 103.23 Est GFR (MDRD) Af Amer 117 Est GFR (MDRD) Non-Af 97 BUN/Creatinine Ratio 15.2 Glucose 161 H Calcium 8.9 Total Bilirubin 0.50 AST 33 ALT 39 Alkaline Phosphatase 61 Total Protein 6.6 Albumin 2.8 L Globulin 3.8 Albumin/Globulin Ratio 0.7 L POC Glucose 191 H 280 H Micro: Microbiology 10/07/20 17:15 Gram Stain - Final Wound - Right Foot Wound Culture - Final No growth aerobically. Anaerobic Culture - Preliminary No growth in 48 hours. 10/07/20 17:10 Gram Stain - Final Wound - Left Foot Wound Culture - Final Streptococcus agalactiae (B) Enterococcus faecalis Anaerobic Culture - Preliminary Checking for anaerobes, further studies to follow. 10/07/20 14:54 Blood Culture - Preliminary Blood Culture (Wb) - Right Hand No growth in 48 hours. 10/07/20 14:43 Blood Culture - Preliminary Blood Culture (Wb) - Anticubital Left No growth in 48 hours.
--- NOTE | 2020-10-10 14:54 | NURSING ---
Had talked with Dr Arredondo. Orders received to continue betadine dressings daily to bilateral great toes until [facility]. In to review dressing orders with patient. some supplies will be sent with patient. Pt states that between himself and his lady friend, they will be able to do the dressing changes. Does not feel he needs home health care. Pt denies further questions or concerns at this time.
[2020-10-10 15:50] VITALS: BP 159/93; PULSE 82; RESP 18; TEMP 37.3; O2SAT 94
== END 2020-10-10 15:50 | disposition home or self-care (01) | DRG 623 ==
PROVIDERS: Podiatrist; Admitting Provider Family Medicine; Visit Provider Hospitalist
DX: E11.628 Type 2 diabetes mellitus with other skin complications (principal); L03.116 Cellulitis of left lower limb; Z68.41 Body mass index [BMI] 40.0-44.9, adult; E11.621 Type 2 diabetes mellitus with foot ulcer; L97.523 Non-pressure chronic ulcer of other part of left foot with necrosis of muscle; L97.512 Non-pressure chronic ulcer of other part of right foot with fat layer exposed; E11.42 Type 2 diabetes mellitus with diabetic polyneuropathy; F43.10 Post-traumatic stress disorder, unspecified; G47.33 Obstructive sleep apnea (adult) (pediatric); G89.4 Chronic pain syndrome; I10 Essential (primary) hypertension; E66.01 Morbid (severe) obesity due to excess calories; B95.4 Other streptococcus as the cause of diseases classified elsewhere; B95.2 Enterococcus as the cause of diseases classified elsewhere; K21.9 Gastro-esophageal reflux disease without esophagitis; J44.9 Chronic obstructive pulmonary disease, unspecified; E11.51 Type 2 diabetes mellitus with diabetic peripheral angiopathy without gangrene; M06.9 Rheumatoid arthritis, unspecified; M21.611 Bunion of right foot; S90.422A Blister (nonthermal), left great toe, initial encounter; X58.XXXA Exposure to other specified factors, initial encounter; Z87.891 Personal history of nicotine dependence; Z79.899 Other long term (current) drug therapy; Z79.4 Long term (current) use of insulin
CPT/HCPCS: 36415; 73630; 73720; 80048; 80053; 80202; 82962; 83036; 83735; 85025; 85652; 86140; 87040; 87070; 87075; 87077; 87186; 87205; 87640; 87641; 93923; 94003; 94660; 97802; 97803; A9575; J7030; J7050; A4216

== ENCOUNTER 2020-11-02 08:30 | Outpatient (RCR) | payer MEDICARE, MEDICAID, SELFPAY ==
[2020-10-26 08:42] VITALS: BP 127/75; PULSE 66; RESP 18; TEMP 36.1; BMI 42.5
--- NOTE | 2020-10-26 10:37 | HP.PCM_ITS ---
History of Present Illness Date of Service: 10/26/20 Chief Complaint: Left great toe ulcer and right great toe ulcer History of Wound: This 60-year-old diabetic male seen as a hospital follow-up for bilateral great toe ulcers. The onset was approximately mid September 2020 in which he developed blisters after wearing boots with increased swelling cannot work. He denies drainage from the right foot at this time and has been performing dressing changes with Betadine to the left. He improved during his hospitalization with IV antibiotics and was discharged home on a 7-day course of Augmentin; this was recommended by infectious disease physician Dr. Lynne. He denies redness or odor. He denies fever, chill, nausea, vomiting. He denies claudication. He does not like to wear surgical shoe and prefers to wear a sandal or slipper at home. Progress of Wound: Healed right Improving left [facility] Medical History Chronic pain syndrome COPD exacerbation CPAP (continuous positive airway pressure) dependence DDD (degenerative disc disease) Diabetes mellitus type II, uncontrolled Diabetic foot infection Former tobacco use GERD (gastroesophageal reflux disease) HTN (hypertension) Hypertension Kidney stones Obesity LANA on CPAP Osteoporosis PTSD (post-traumatic stress disorder) PVD (peripheral vascular disease) Rheumatoid arthritis Sleep apnea Sleep apnea Home Medications alprazolam [Xanax] 0.5 mg PO BID PRN PRN 09/23/15 [History Last Taken Unknown] amlodipine 10 mg PO DAILY 09/23/15 [History Last Taken 10/07/20 08:00 1] esomeprazole magnesium [Nexium] 20 mg PO DAILY 09/23/15 [History Last Taken 10/07/20 08:00 1] hydrochlorothiazide 25 mg PO DAILY 09/23/15 [History Last Taken 10/07/20 08:00] oxycodone-acetaminophen [Percocet] 1 tab PO Q6H PRN PRN 09/23/15 [History Last Taken 10/06/20 22:00 1] pregabalin [Lyrica] 150 mg PO BID 09/23/15 [History Last Taken 10/06/20 22:00] Humulin 70/30 Insulin Pen 55 u MISCELLANEOUS CONT 10/07/20 [History Last Taken Unknown] Jardiance 25 mg PO DAILY 10/07/20 [History Last Taken 10/07/20 08:00 1] Trulicity 4.5 mg SUBCUT QWEEK 10/07/20 [History Last Taken Unknown] glipizide 10 mg PO DAILY 10/07/20 [History Last Taken 10/07/20 08:00] lisinopril 20 mg PO DAILY 10/07/20 [History Last Taken 10/07/20 08:00 1] Flexall 1 ea TOPICAL Q4H PRN 10/08/20 [History Last Taken Unknown] amoxicillin-pot clavulanate [Augmentin] 1 tab PO BID #14 tab 10/10/20 [Rx Last Taken Unknown] morphine 15 mg PO BID 5 Days #10 tab 10/10/20 [Rx Last Taken Unknown] Allergy/AdvReac Type Severity Reaction Status Date / Time codeine Allergy Rash Verified 10/07/20 15:21 Family History (Updated 10/07/20 @ 14:[address] Diana Mendiola MD) Mother Cancer Renal CA Hypertension Diabetes Father Cancer History of NH Lymphoma and Colon CA. Hypertension Diabetes Surgical History (Updated 10/07/20 @ 14:[address] Diana Mendiola MD) History of arthroscopic surgery of shoulder History of exploratory laparotomy History of left shoulder replacement Hx of chest tube placement Status post arthroscopic surgery of left knee Social History (Updated 10/07/20 @ 14:[address] Diana Mendiola MD) household members: none Smoking Status: Never smoker how long ago did patient quit smoking: Quit 18 months prior, 5 cigars daily x 40 years prior to this. alcohol intake: never substance use type: does not use Vital Signs Vital Signs Vital Signs: 10/26/20 08:42 Temperature 97 F L Temperature Source Temporal Pulse Rate 66 Respiratory Rate 18 Blood Pressure 127/75 H Blood Pressure Mean 92 Blood Pressure Source Monitor Blood Pressure Position Sitting Blood Pressure Location Left Arm Weight Body Mass Index (BMI) 42.5 Physical Exam Const alert and oriented x3 General Appearance: cooperative HEENT normocephalic Extremity Extremity Narrative: No calf tenderness Diminished pulses Muscle wasting noted Decreased limited first metatarsophalangeal joint range of motion bilateral No bogginess or fluctuance on palpation bilateral General Extremity: edema and no tenderness to palpation of joints or extremities; Negative for cyanosis Skin Skin Narrative: Full epithelialization noted to right hallux. The left hallux has improvement in granulation tissue and there is no longer any exposed tissue. There is no purulence, no erythema no streaking, no odor, no infection General Skin Exam: Negative for erythema Neuro Neuro Narrative: lack of normal epicritic sensation via light touch is consistent with neuropathy status Psych cooperative and affect normal Debridement Note Debridement Note Post-Debridement Measurements and Additional Note: Post-Debridement Measurements/Treatment WC - Nurse 1 - General Ulcer Assessment Start: 10/26/20 08:21 Freq: Status: Active Protocol: ARIELLE Activity Type Activity Date Activity User E-Sign Co-Sign Detail Recorded Client Recorded Date Recorded By Document 10/26/20 08:42 RB [id number] 10/26/20 08:45 RB 10/26/20 08:42 WC - Today's Visit Information Type of service Initial Visit Arrival Mode Ambulatory Transfer Assistance None Patient Identification Verified (Name & No ) Patient Requires Transmission-Based No Precautions Height and Weight Body Mass Index (BMI) 42.5 BMI Classification Obese Vital Signs Temperature (97.8 F-99.1 F) 97 F L Temperature Source Temporal Pulse Rate (60-100) 66 Pulse Location Monitor Respiratory Rate (12-18) 18 Respiratory rate source Observation Blood Pressure (90/60-120/80) 127/75 H Blood Pressure Mean 92 Source Monitor Position Sitting Blood Pressure Location Left Arm Communication Assessment Preferred language [employer] In[employer] Required No Able to Read Yes Able to Write Yes Communication Tools None Right Hearing Abillity Normal Left Hearing Abillity Normal Visual Assistive Devices Glasses Teaching Assessment Preferences Verbal,Written, Audio/Visual Barriers to Learning None Readiness To Learn Good Willingness to Engage in Self Management Med Activies Readiness to Engage in Self Management Med Activities Anxiety Level Calm Cooperation Cooperative Perception Coherent Interest in Health Problem Asks Questions Education Importance Acknowledges Need Does Patient Smoke tobacco or other No substances Smoking Status Never smoker Is Patient Diabetic Yes Functional Assessment Recent Decline in Ability to Perform Denies Any Declines Assistive Device With Patient No Culture/Latter Day/Geriatric Nurse Practitioner Cultural/Latter Day Needs that may affect No Treatment Plan Would you allow our hospital new car driver to No meet you for the purpose of spiritual/ emotional support? Geriatric Nurse Practitioner to contact place of tenriism No Teaching: Wound Center *Welcome to the Wound Center -Person Taught Patient -Teaching Method Discussion, Demonstration -Response to teaching Verbalize understanding WC - Nurse 1 - General Ulcer Measurement Start: 10/26/20 08:21 Freq: Status: Active Protocol: Activity Type Activity Date Activity User E-Sign Co-Sign Detail Recorded Client Recorded Date Recorded By Document 10/26/20 08:46 RB [id number] 10/26/20 08:49 RB Document 10/26/20 09:06 RB [id number] 10/26/20 09:08 RB 10/26/20 10/26/20 08:46 09:06 Wound Center Nurse 1 1. L hallux -Combined with other wound No -Photo Taken Yes -Tunneling No -Undermining/Tunneling No -Circular Undermining No -Exudate Amt Medium -Exudate Type Serosanguineous -Wound Margin Distinct, Outline Attached -Granulation Amt Large (67-100%) -Granulation Quality [place] -Slough/Fibrin Yes -Necrosis Amt Small (1-33%) -Necrotic Tissue Type Adherent Slough -Structure Exposed N/A -Texture (Brittany-wound Skin Appearance) Assessed -Moisture (Brittany-wound Skin Appearance) Assessed -Color (Brittany-wound Skin Appearance) Assessed, Erythema -Temperature (Brittany-wound Skin No Abnormality Appearance) (Pt Warm) -Tenderness on Palpation (Brittany-wound No Skin Appearance) -Ulcer Cleansing Wound Cleanser -Foul Odor after Cleansing No 2-left plantar Hallux -Combined with other wound No -Current Size (cm) - Length 0.3 -Current Size (cm) - Width 0.4 -Current Size (cm) - Depth 0.1 -Total Square Cm 0.12 -Photo Taken Yes -Tunneling No -Undermining/Tunneling No -Circular Undermining No -Exudate Amt Medium -Exudate Type Serosanguineous -Wound Margin Distinct, Outline Attached -Granulation Amt Medium (34-66%) -Granulation Quality [place] -Slough/Fibrin Yes -Necrosis Amt Small (1-33%) -Necrotic Tissue Type Adherent Slough -Structure Exposed N/A -Texture (Brittany-wound Skin Appearance) Assessed -Moisture (Brittany-wound Skin Appearance) Assessed -Color (Brittany-wound Skin Appearance) Assessed, Erythema -Temperature (Brittany-wound Skin No Abnormality Appearance) (Pt Warm) -Tenderness on Palpation (Brittany-wound No Skin Appearance) -Ulcer Cleansing Wound Cleanser -Foul Odor after Cleansing No 1-left dorsal Hallux -Combined with other wound No -Current Size (cm) - Length 4 -Current Size (cm) - Width 1.8 -Current Size (cm) - Depth 0.3 -Total Square Cm 7.2 -Tunneling No -Undermining/Tunneling No -Circular Undermining No -Exudate Amt Medium -Exudate Type Serosanguineous -Wound Margin Distinct, Outline Attached -Granulation Amt Medium (34-66%) -Granulation Quality [place] -Slough/Fibrin Yes -Necrosis Amt Small (1-33%) -Necrotic Tissue Type Adherent Slough -Structure Exposed N/A -Texture (Brittany-wound Skin Appearance) Assessed -Moisture (Brittany-wound Skin Appearance) Assessed -Color (Brittany-wound Skin Appearance) Assessed, Erythema -Temperature (Brittany-wound Skin No Abnormality Appearance) (Pt Warm) -Tenderness on Palpation (Brittany-wound No Skin Appearance) -Ulcer Cleansing Wound Cleanser -Foul Odor after Cleansing No WC - Nurse 2 - General Ulcer CM Notes Start: 10/26/20 08:21 Freq: Status: Active Protocol: Activity Type Activity Date Activity User E-Sign Co-Sign Detail Recorded Client Recorded Date Recorded By Document 10/26/20 08:41 MICHAEL [id number] 10/26/20 08:49 MICHAEL 10/26/20 08:41 Wound Center Nurse 2 2-left plantar Hallux -Time 08:44 -Correct Patient Yes -Correct Side, Site, Position Yes -Correct Procedure Yes -Procedure Performed Yes -Type of Procedure Debridement -Clinical Debridement Subcutaneous -Tissue Removed Subcutaneous -Post Debridement (cm) - Length 0.3 -Post Debridement (cm) - Width 0.4 -Post Debridement (cm) - Depth 0.1 -Total Square (Post) (cm) 0.12 -Area of Debridement (cm) - Length 0.3 -Area of Debridement (cm) - Width 0.4 -Total Square (Area) (cm) 0.12 -Tunneling No -Circular Undermining No -Wound/Ulcer Outcome Not Healed -Ulcer Cleansing Rinsed/ Irrigated with Saline -Foul Odor after Cleansing No -Bioengineered Tissue No -Bleeding Controlled with Pressure -Offloading Yes -Type of Offloading Surgical Shoe -Treatment Response Procedure Tolerated Well -Debridement - Subq, 1st 20sq cm Yes 1-left dorsal Hallux -Time 08:42 -Correct Patient Yes -Correct Side, Site, Position Yes -Correct Procedure Yes -Procedure Performed Yes -Type of Procedure Debridement -Clinical Debridement Subcutaneous -Tissue Removed Subcutaneous -Post Debridement (cm) - Length 4 -Post Debridement (cm) - Width 1.8 -Post Debridement (cm) - Depth 0.3 -Total Square (Post) (cm) 7.2 -Area of Debridement (cm) - Length 4 -Area of Debridement (cm) - Width 1.8 -Total Square (Area) (cm) 7.2 -Tunneling No -Undermining/Tunneling No -Circular Undermining No -Wound/Ulcer Outcome Not Healed -Ulcer Cleansing Rinsed/ Irrigated with Saline -Foul Odor after Cleansing No -Bioengineered Tissue No -Bleeding Controlled with Pressure -Offloading Yes -Type of Offloading Surgical Shoe -Treatment Response Procedure Tolerated Well -Debridement - Subq, 1st 20sq cm No Pain Scale: 0-10 Numeric Is Patient Pain Free? Yes - Nurse 3 - General Ulcer D/C NN Start: 10/26/20 08:21 Freq: Status: Active Protocol: Activity Type Activity Date Activity User E-Sign Co-Sign Detail Recorded Client Recorded Date Recorded By Document 10/26/20 09:03 ROSANNA [id number] 10/26/20 09:06 ROSANNA 10/26/20 09:03 Wound Care Nurse 3 2-left plantar Hallux -Ulcer Cleansing Rinsed/ Irrigated with Saline -Primary Dressing Applied [place] -Primary Dressing Covered/Secured with Dry Gauze,Dry Gauze & Roll Gauze,Secured with Tape -[place] 1 1-left dorsal Hallux -Ulcer Cleansing Rinsed/ Irrigated with Saline -Other Dressing silvercel -Primary Dressing Covered/Secured with Dry Gauze,Dry Gauze & Roll Gauze,Secured with Tape Treatment Response Procedure Tolerated Well Pain Scale: 0-10 Numeric Is Patient Pain Free? Yes - Visit Discharge Discharge Condition Stable Ambulatory Status Ambulatory Transportation Private Auto Medication Reconcilliation completed & No provided to patient/care provider Clinical Summary of Care Provided Yes Wound debrided: dorsal left hallux Wound Grade/Stage: 2 Type of Debridement: Excisional debridement Anesthesia Used: 4% Lidocaine Solution Depth: in the subcutaneous layer Percentage of wound debrided: 100 Instrument Used: #15 blade Tissue Removed: fibrous, devitalized subcutaneous, biofilm, slough Severity: Fat Layer Exposed Amount of bleeding with debridement: Mild Bleeding Controlled with: Pressure Patient tolerated procedure: Patient tolerated procedure well Assessment/Plan Assessment/Plan (1) Cellulitis of left lower limb: CODE(S): L03.116 - Cellulitis of left lower limb (2) Non-pressure 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: CODE(S): L97.523 - Non-pressure 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 (3) Type 2 diabetes mellitus with diabetic polyneuropathy: CODE(S): E11.42 - Type 2 diabetes mellitus with diabetic polyneuropathy QUALIFIERS: Diabetes mellitus tank terminal gauger insulin use: with [facility] use Qualified Code(s): E11.42 - Type 2 diabetes mellitus with diabetic polyneuropathy; Z79.4 - USP (current) use of insulin (4) Caloric malnutrition: CODE(S): E46 - Unspecified protein-calorie malnutrition PLAN: I reviewed and discussed his case today. Debridement was performed today as noted in the clinical panel to all of the ulcer site. The following work up and care recommendations were made: Dressing: Aquacel Ag Wash: Soap and water Tissue growth optimization: His ulcer has been open for over 1 month. It is noted he was first seen during his hospitalization for this condition on 10-07-28. I recommend advanced wound healing product epi cord and epi fix which is placental and umbilical cord drive. Prior authorization with insurance will be completed. This is medically necessary for limb salvage. He is at risk for continued infection, delayed ulcer healing and limb loss. Offloading: I recommend offloading with surgical shoe he defers today. He has open toe sandals at home and will wear this instead Vascular: Noninvasive arterial studies were performed during his last hospitalization he has good perfusion to bilateral foot Edema: To wear Tubigrip to maintain reduced edema status. To elevate limbs at rest. Infection: His local signs of infection have resolved. His x-rays were reviewed during his last hospitalization without acute osseous destruction or soft tissue emphysema. He did have an MRI for the left foot while he was last hospitalized and this was negative for osteomyelitis. He was discharged home with 7-day course of Augmentin per infectious disease recommendations. I do not recommend additional antibiotics at this time. Pain: This is not present due to his neuropathy Host factors: His diabetic status is noted. Nutrition: I recommend Denis nutritional supplementation optimize healing. He will try to purchase a month supply at the cafeteria. I answered all the patient's questions. To return to the wound healing center in 1 week or call sooner if the patient has any questions or concerns. The medical decision making level is limited based on data including the review of prior external notes, review of a prior test, or ordering a test. The medical decision making level is low. There is noted low risk of morbidity after considering this treatment plan and diagnostic data. The problems addressed require a low medical decision making level which includes two or more minor problems, a stable chronic illness, or an acute unco mplicated illness or injury.
[2020-11-02 08:39] VITALS: BP 139/79; PULSE 68; RESP 18; TEMP 36.1; BMI 42.5
--- NOTE | 2020-11-02 09:20 | PN.PCM_ITS ---
History of Present Illness Date of Service: 11/02/20 Chief Complaint: Left great toe ulcer and right great toe ulcer History of Wound: This 60-year-old diabetic male seen as a hospital follow-up for bilateral great toe ulcers. The onset was approximately mid September 2020 in which he developed blisters after wearing boots with increased swelling cannot work. He denies drainage from the right foot at this time and has been performing dressing changes with [employer] ag. He completed his infection benedict gement with infectious disease specialist. He denies redness or odor. He denies fever, chill, nausea, vomiting. He denies claudication. He wears an offloading sandal. Progress of Wound: Improving Objective Data Objective Data Vital Signs: Vital Signs Temp Pulse Resp BP 97.0 F L 68 18 139/79 H 11/02/20 08:39 11/02/20 08:39 11/02/20 08:39 11/02/20 08:39 Oxygen Delivery Method Room Air Body Mass Index (BMI) 42.5 Physical Exam Const alert and oriented x3 General Appearance: cooperative HEENT normocephalic Extremity Extremity Narrative: No calf tenderness Diminished pulses Muscle wasting noted Decreased limited first metatarsophalangeal joint range of motion bilateral No bogginess or fluctuance on palpation bilateral General Extremity: edema and no tenderness to palpation of joints or extremities; Negative for cyanosis Skin Skin Narrative: Full epithelialization noted to right hallux. The left hallux has improvement in granulation tissue and there is no longer any exposed tissue. There is no purulence, no erythema no streaking, no odor, no infection General Skin Exam: Negative for erythema Neuro Neuro Narrative: lack of normal epicritic sensation via light touch is consistent with neuropathy status Psych cooperative and affect normal Debridement Note Debridement Note Post-Debridement Measurements and Additional Note: Post-Debridement Measurements/Treatment - Nurse 1 - General Ulcer Assessment Start: 10/26/20 08:21 Freq: Status: Active Protocol: ARIELLE Activity Type Activity Date Activity User E-Sign Co-Sign Detail Recorded Client Recorded Date Recorded By Document 10/26/20 08:42 RB [id number] 10/26/20 08:45 RB Document 11/02/20 08:39 MT Desktop 11/02/20 08:51 MT 10/26/20 11/02/20 08:42 08:39 - Today's Visit Information Type of service Initial Visit 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 ) Arrival Mode Ambulatory Ambulatory Transfer Assistance None Accompanied by self Patient Identification Verified (Name & No ) Patient Requires Transmission-Based No Precautions Height and Weight Body Mass Index (BMI) 42.5 42.5 BMI Classification Obese Obese Vital Signs Temperature (97.8 F-99.1 F) 97 F L 97.0 F L Temperature Source Temporal Temporal Pulse Rate (60-100) 66 68 Pulse Location Monitor Monitor Respiratory Rate (12-18) 18 18 Respiratory rate source Observation Observation Oxygen Delivery Method Room Air Blood Pressure (90/60-120/80) 127/75 H 139/79 H Blood Pressure Mean (mm Hg) 92 99 Source Monitor Monitor Position Sitting Sitting Blood Pressure Location Left Arm Left Arm History Since Last Visit- (Skip if this is Patient's initial visit) Have you changed medications since your No last visit? Any new allergies or adverse reactions No Had a fall/change in ADL's that may No increase risk of falls Signs or symptoms of abuse and/or No neglect since last visit Have you been in the hospital since your No last visit? Has dressing in place as prescribed Yes Has compression in place as prescribed Yes Has offloadiing in place as prescribed Yes Left Footwear Slipper Right Footwear Slipper Communication Assessment Preferred language Gu[place] Gasateria Attendant Required No Able to Read Yes Able to Write Yes Communication Tools None Right Hearing Abillity Normal Left Hearing Abillity Normal Visual Assistive Devices Glasses Teaching Assessment Preferences Verbal,Written, Audio/Visual Barriers to Learning None Readiness To Learn Good Willingness to Engage in Self Management Med Activies Readiness to Engage in Self Management Med Activities Anxiety Level Calm Cooperation Cooperative Perception Coherent Interest in Health Problem Asks Questions Education Importance Acknowledges Need Does Patient Smoke tobacco or other No substances Smoking Status Never smoker Is Patient Diabetic Yes Functional Assessment Recent Decline in Ability to Perform Denies Any Declines Assistive Device With Patient No Culture/Adventism/Telegraph Repeater Installer Cultural/Adventism Needs that may affect No Treatment Plan Would you allow our hospital commercial manager to No meet you for the purpose of spiritual/ emotional support? Telegraph Repeater Installer to contact place of buddhist No Teaching: Wound Center *Welcome to the Wound Center -Person Taught Patient -Teaching Method Discussion, Demonstration -Response to teaching Verbalize understanding WC - Nurse 1 - General Ulcer Measurement Start: 10/26/20 08:21 Freq: Status: Active Protocol: Activity Type Activity Date Activity User E-Sign Co-Sign Detail Recorded Client Recorded Date Recorded By Document 10/26/20 08:46 RB [id number] 10/26/20 08:49 RB Document 10/26/20 09:06 RB [id number] 10/26/20 09:08 RB Document 11/02/20 08:39 ID Desktop 11/02/20 08:51 ID 10/26/20 10/26/20 11/02/20 08:46 09:06 08:39 Wound Center Nurse 1 1. L hallux -Combined with other wound No -Photo Taken Yes -Tunneling No -Undermining/Tunneling No -Circular Undermining No -Exudate Amt Medium -Exudate Type Serosanguineous -Wound Margin Distinct, Outline Attached -Granulation Amt Large (67-100%) -Granulation Quality [place] -Slough/Fibrin Yes -Necrosis Amt Small (1-33%) -Necrotic Tissue Type Adherent Slough -Structure Exposed N/A -Texture (Brittany-wound Skin Appearance) Assessed -Moisture (Brittany-wound Skin Appearance) Assessed -Color (Brittany-wound Skin Appearance) Assessed, Erythema -Temperature (Brittany-wound Skin No Abnormality Appearance) (Pt Warm) -Tenderness on Palpation (Brittany-wound No Skin Appearance) -Ulcer Cleansing Wound Cleanser -Foul Odor after Cleansing No #3 left plantar hallux -Combined with other wound No -Current Size (cm) - Length 0.3 0.1 -Current Size (cm) - Width 0.4 0.1 -Current Size (cm) - Depth 0.1 0.1 -Total Square Cm 0.12 0.01 -Photo Taken Yes -Tunneling No -Undermining/Tunneling No -Circular Undermining No -Exudate Amt Medium -Exudate Type Serosanguineous -Wound Margin Distinct, Outline Attached -Granulation Amt Medium (34-66%) -Granulation Quality [place] -Slough/Fibrin Yes -Necrosis Amt Small (1-33%) -Necrotic Tissue Type Adherent Slough -Structure Exposed N/A -Texture (Brittany-wound Skin Appearance) Assessed -Moisture (Brittany-wound Skin Appearance) Assessed -Color (Brittany-wound Skin Appearance) Assessed, Erythema -Temperature (Brittany-wound Skin No Abnormality Appearance) (Pt Warm) -Tenderness on Palpation (Brittany-wound No Skin Appearance) -Ulcer Cleansing Wound Cleanser -Foul Odor after Cleansing No #2 left hallux -Combined with other wound No -Current Size (cm) - Length 4 3.8 -Current Size (cm) - Width 1.8 1.6 -Current Size (cm) - Depth 0.3 0.4 -Total Square Cm 7.2 6.08 -Tunneling No -Undermining/Tunneling No -Circular Undermining No -Exudate Amt Medium -Exudate Type Serosanguineous -Wound Margin Distinct, Outline Attached -Granulation Amt Medium (34-66%) -Granulation Quality [place] -Slough/Fibrin Yes -Necrosis Amt Small (1-33%) -Necrotic Tissue Type Adherent Slough -Structure Exposed N/A -Texture (Brittany-wound Skin Appearance) Assessed Assessed -Moisture (Brittany-wound Skin Appearance) Assessed Assessed -Color (Brittany-wound Skin Appearance) Assessed, Assessed Erythema -Temperature (Brittany-wound Skin No Abnormality No Abnormality Appearance) (Pt Warm) (Pt Warm) -Tenderness on Palpation (Brittany-wound No No Skin Appearance) -Ulcer Cleansing Wound Cleanser Rinsed/ Irrigated with Saline -Foul Odor after Cleansing No No -Anesthetic Used 4% Lidocaine Solution WC - Nurse 2 - General Ulcer CM Notes Start: 10/26/20 08:21 Freq: Status: Active Protocol: Activity Type Activity Date Activity User E-Sign Co-Sign Detail Recorded Client Recorded Date Recorded By Document 10/26/20 08:41 MICHAEL [id number] 10/26/20 08:49 JF Document 11/02/20 08:55 [id number] 11/02/20 09:03 JF Edit Result 11/02/20 08:55 JF (1) [id number] 11/02/20 09:05 JF (1) #2 left hallux - Post Debridement (cm) - Length 2 => 3.5 - Total Square (Post) (cm) 3.2 => 5.60 - Area of Debridement (cm) - Length 2 => 3.5 - Total Square (Area) (cm) 3.2 => 5.60 10/26/20 11/02/20 08:41 08:55 Wound Center Nurse 2 #3 left plantar hallux -Time 08:44 09:00 -Correct Patient Yes Yes -Correct Side, Site, Position Yes Yes -Correct Procedure Yes Yes -Procedure Performed Yes Yes -Type of Procedure Debridement Debridement -Clinical Debridement Subcutaneous Subcutaneous -Tissue Removed Subcutaneous Subcutaneous -Post Debridement (cm) - Length 0.3 0.4 -Post Debridement (cm) - Width 0.4 0.4 -Post Debridement (cm) - Depth 0.1 0.1 -Total Square (Post) (cm) 0.12 0.16 -Area of Debridement (cm) - Length 0.3 0.4 -Area of Debridement (cm) - Width 0.4 0.4 -Total Square (Area) (cm) 0.12 0.16 -Tunneling No No -Undermining/Tunneling No -Circular Undermining No No -Wound/Ulcer Outcome Not Healed Not Healed -Ulcer Cleansing Rinsed/ Rinsed/ Irrigated with Irrigated with Saline Saline -Foul Odor after Cleansing No No -Bioengineered Tissue No No -Bleeding Controlled with Pressure Pressure -Offloading Yes No -Type of Offloading Surgical Shoe -Treatment Response Procedure Procedure Tolerated Well Tolerated Well -Debridement - Subq, 1st 20sq cm Yes Yes #2 left hallux -Time 08:42 09:01 -Correct Patient Yes Yes -Correct Side, Site, Position Yes Yes -Correct Procedure Yes Yes -Procedure Performed Yes No -Type of Procedure Debridement -Clinical Debridement Subcutaneous Subcutaneous -Tissue Removed Subcutaneous Subcutaneous -Post Debridement (cm) - Length 4 3.5 -Post Debridement (cm) - Width 1.8 1.6 -Post Debridement (cm) - Depth 0.3 0.3 -Total Square (Post) (cm) 7.2 5.60 -Area of Debridement (cm) - Length 4 3.5 -Area of Debridement (cm) - Width 1.8 1.6 -Total Square (Area) (cm) 7.2 5.60 -Tunneling No No -Undermining/Tunneling No No -Circular Undermining No No -Wound/Ulcer Outcome Not Healed Not Healed -Ulcer Cleansing Rinsed/ Rinsed/ Irrigated with Irrigated with Saline Saline -Foul Odor after Cleansing No No -Bioengineered Tissue No No -Bleeding Controlled with Pressure Pressure -Offloading Yes No -Type of Offloading Surgical Shoe -Treatment Response Procedure Procedure Tolerated Well Tolerated Well -Debridement - Subq, 1st 20sq cm No No Pain Scale: 0-10 Numeric Is Patient Pain Free? Yes Yes WC - Nurse 3 - General Ulcer D/C NN Start: 10/26/20 08:21 Freq: Status: Active Protocol: Activity Type Activity Date Activity User E-Sign Co-Sign Detail Recorded Client Recorded Date Recorded By Document 10/26/20 09:03 RB [id number] 10/26/20 09:06 RB Document 11/02/20 09:18 RB Desktop 11/02/20 09:19 RB 10/26/20 11/02/20 09:03 09:18 Wound Care Nurse 3 #3 left plantar hallux -Ulcer Cleansing Rinsed/ Rinsed/ Irrigated with Irrigated with Saline Saline -Primary Dressing Applied [employer] Aquacel AG 2x2 -Primary Dressing Covered/Secured with Dry Gauze,Dry Dry Gauze,Dry Gauze & Roll Gauze & Roll Gauze,Secured Gauze,Secured with Tape with Tape -Aquacel AG 2x2 1 -[employer]cel 1 #2 left hallux -Ulcer Cleansing Rinsed/ Rinsed/ Irrigated with Irrigated with Saline Saline -Other Dressing silvercel aquacel ag -Primary Dressing Covered/Secured with Dry Gauze,Dry Dry Gauze,Dry Gauze & Roll Gauze & Roll Gauze,Secured Gauze,Secured with Tape with Tape Treatment Response Procedure Procedure Tolerated Well Tolerated Well Pain Scale: 0-10 Numeric Is Patient Pain Free? Yes Yes WC - Visit Discharge Discharge Condition Stable Stable Ambulatory Status Ambulatory Ambulatory Transportation Private Auto Private Auto Medication Reconcilliation completed & No No provided to patient/care provider Clinical Summary of Care Provided Yes Yes Wound debrided: left hallux Wound Grade/Stage: 2 Type of Debridement: Excisional debridement Anesthesia Used: 4% Lidocaine Solution Depth: in the subcutaneous layer Percentage of wound debrided: 100 Instrument Used: #15 blade Tissue Removed: fibrous, devitalized subcutaneous, biofilm, slough Severity: Fat Layer Exposed Amount of bleeding with debridement: Mild Bleeding Controlled with: Pressure Patient tolerated procedure: Patient tolerated procedure well Assessment/Plan Assessment/Plan (1) Cellulitis of left lower limb: CODE(S): L03.116 - Cellulitis of left lower limb (2) Non-pressure 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: CODE(S): L97.523 - Non-pressure 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 (3) Type 2 diabetes mellitus with diabetic polyneuropathy: CODE(S): E11.42 - Type 2 diabetes mellitus with diabetic polyneuropathy QUALIFIERS: Diabetes mellitus usp insulin use: with usp use Qualified Code(s): E11.42 - Type 2 diabetes mellitus with diabetic polyneuropathy; Z79.4 - terminal superintendent (current) use of insulin (4) Caloric malnutrition: CODE(S): E46 - Unspecified protein-calorie malnutrition PLAN: I reviewed and discussed his case today. Debridement was performed today as noted in the clinical panel to all of the ulcer site. The following work up and care recommendations were made: Dressing: Aquacel Ag Wash: Soap and water Tissue growth optimization: His ulcer has been open for over 1 month. It is noted he was first seen during his hospitalization for this condition on 10-07-28. I recommend advanced wound healing product epi cord and epi fix which is placental and umbilical cord drive. Prior authorization with insurance will be completed. This is medically necessary for limb salvage. He is at risk for continued infection, delayed ulcer healing and limb loss. Offloading: I recommend offloading with surgical shoe he defers today. He has open toe sandals at home and will wear this instead Vascular: Noninvasive arterial studies were performed during his last hospitalization he has good perfusion to bilateral foot Edema: To wear Tubigrip to maintain reduced edema status. To elevate limbs at rest. Infection: His local signs of infection have resolved. His x-rays were reviewed during his last hospitalization without acute osseous destruction or soft tissue emphysema. He did have an MRI for the left foot while he was last hospitalized and this was negative for osteomyelitis. He was discharged home with 7-day course of Augmentin per infectious disease recommendations. I do not recommend additional antibiotics at this time. Pain: This is not present due to his neuropathy Host factors: His diabetic status is noted. Nutrition: I recommend Denis nutritional supplementation optimize healing. He w ill try to purchase a month supply at the cafeteria. I answered all the patient's questions. To return to the wound healing center in 1 week or call sooner if the patient has any questions or concerns. The medical decision making level is straightforward. The problem treated is minor or self-limiting. There is noted minimal risk of morbidity after considering this treatment plan and diagnostic data.
== END 2020-11-02 23:59 ==
LOC: WC 08:30
PROVIDERS: Visit Provider Podiatrist
DX: E11.621 Type 2 diabetes mellitus with foot ulcer (principal); I10 Essential (primary) hypertension; E11.51 Type 2 diabetes mellitus with diabetic peripheral angiopathy without gangrene; M06.9 Rheumatoid arthritis, unspecified; G47.33 Obstructive sleep apnea (adult) (pediatric); K21.9 Gastro-esophageal reflux disease without esophagitis; Z87.891 Personal history of nicotine dependence; F43.10 Post-traumatic stress disorder, unspecified; E66.9 Obesity, unspecified; J44.9 Chronic obstructive pulmonary disease, unspecified; Z79.899 Other long term (current) drug therapy; G89.4 Chronic pain syndrome; Z79.4 Long term (current) use of insulin; L03.116 Cellulitis of left lower limb; E11.42 Type 2 diabetes mellitus with diabetic polyneuropathy
CPT/HCPCS: 11042; 99213; G0463

== ENCOUNTER 2020-11-23 13:00 | Outpatient (RCR) | payer MEDICARE, MEDICAID, SELFPAY ==
[2020-11-03 00:34] VITALS: BP 139/79; PULSE 68; RESP 18; TEMP 36.1
[2020-11-09 08:44] VITALS: BP 122/73; PULSE 71; RESP 16; TEMP 36.4; BMI 42.5
--- NOTE | 2020-11-09 10:09 | PCM.WC.PN ---
History of Present Illness Date of Service: 11/09/20 Chief Complaint: Left great toe ulcer History of Wound: This 60-year-old diabetic male seen as a hospital follow-up for bilateral great toe ulcers. The onset was approximately mid September 2020 in which he developed blisters after wearing boots with increased swelling cannot work. He denies drainage from the right foot at this time and has been performing dressing changes with Bridgestream. He completed his infection management with infectious disease specialist. He denies redness or odor. He denies fever, chill, nausea, vomiting. He denies claudication. He wears an offloading sandal. He is ready to proceed forward with epi cord today if this is approved. Progress of Wound: IMPROVING Objective Data Objective Data Vital Signs: Vital Signs Temp Pulse Resp BP 97.5 F L 71 16 122/73 H 11/09/20 08:44 11/09/20 08:44 11/09/20 08:44 11/09/20 08:44 Oxygen Delivery Method Room Air Body Mass Index (BMI) 42.5 Physical Exam Const alert and oriented x3 General Appearance: cooperative HEENT normocephalic Extremity Extremity Narrative: No calf tenderness Diminished pulses Muscle wasting noted General Extremity: edema and no tenderness to palpation of joints or extremities; Negative for cyanosis Skin Skin Narrative: no purulence, no streaking, no odor, no infection Granular base dorsal hallux ulcer with deeper distal wound probing (not to bone or capsule) Skin discontinuity to plantar hallux ulcer was very superficial. No maceration or necrosis General Skin Exam: Negative for erythema Neuro Neuro Narrative: lack of normal epicritic sensation via light touch is consistent with neuropathy status Psych cooperative and affect normal Debridement Note Debridement Note Post-Debridement Measurements and Additional Note: Post-Debridement Measurements/Treatment - Nurse 1 - General Ulcer Assessment Start: 11/09/20 08:44 Freq: Status: Active Protocol: [email or web address] Activity Type Activity Date Activity User E-Sign Co-Sign Detail Recorded Client Recorded Date Recorded By Document 11/09/20 08:44 RB Desktop 11/09/20 08:46 RB 11/09/20 08:44 - Today's Visit Information Type of service Follow-up Visit (Physician/NURSES' ASSOCIATION EXECUTIVE DIRECTOR ) Arrival Mode Ambulatory Transfer Assistance None Patient Identification Verified (Name & Yes ) Patient Requires Transmission-Based No Precautions Height and Weight Body Mass Index (BMI) 42.5 BMI Classification Obese Vital Signs Temperature (97.8 F-99.1 F) 97.5 F L Temperature Source Temporal Pulse Rate (60-100) 71 Pulse Location Monitor Respiratory Rate (12-18) 16 Respiratory rate source Observation Oxygen Delivery Method Room Air Blood Pressure (90/60-120/80) 122/73 H Blood Pressure Mean (mm Hg) 89 Source Monitor Position Sitting Blood Pressure Location Left Arm History Since Last Visit- (Skip if this is Patient's initial visit) Have you changed medications since your No last visit? Any new allergies or adverse reactions No Had a fall/change in ADL's that may No increase risk of falls Signs or symptoms of abuse and/or No neglect since last visit Have you been in the hospital since your No last visit? Has dressing in place as prescribed Yes Has compression in place as prescribed N/A Has offloadiing in place as prescribed N/A Experienced any changes in pain level or No management Left Footwear Regular Shoe Right Footwear Regular Shoe Pain Scale: 0-10 Numeric Is Patient Pain Free? Yes WC - Nurse 1 - General Ulcer Measurement Start: 11/09/20 08:44 Freq: Status: Active Protocol: Activity Type Activity Date Activity User E-Sign Co-Sign Detail Recorded Client Recorded Date Recorded By Document 11/09/20 08:44 Desktop 11/09/20 08:46 RB 11/09/20 08:44 Wound Center Nurse 1 #3 left plantar hallux -Combined with other wound No -Current Size (cm) - Length 0.1 -Current Size (cm) - Width 0.1 -Current Size (cm) - Depth 0.1 -Total Square Cm 0.01 -Photo Taken No -Epithelialization Large 67-100% -Exudate Amt None Present -Necrosis Amt Small (1-33%) -Necrotic Tissue Type Eschar -Texture (Brittany-wound Skin Appearance) Callus,Scarring -Moisture (Brittany-wound Skin Appearance) Dry/Scaly -Color (Brittany-wound Skin Appearance) Assessed -Ulcer Cleansing Rinsed/ Irrigated with Saline -Foul Odor after Cleansing No -Anesthetic Used 5% Lidocaine Gel #2 left hallux -Combined with other wound No -Current Size (cm) - Length 2 -Current Size (cm) - Width 1.5 -Current Size (cm) - Depth 0.1 -Total Square Cm 3.0 -Photo Taken No -Epithelialization Small 1-33% -Tunneling No -Undermining/Tunneling No -Circular Undermining No -Exudate Amt Medium -Exudate Type Serosanguineous -Wound Margin Flat & Intact -Granulation Amt Large (67-100%) -Granulation Quality Red -Slough/Fibrin Yes -Necrosis Amt Small (1-33%) -Necrotic Tissue Type Adherent Slough -Texture (Brittany-wound Skin Appearance) Assessed, Scarring -Moisture (Brittany-wound Skin Appearance) Assessed,Dry/ Scaly -Color (Brittany-wound Skin Appearance) Assessed -Temperature (Brittany-wound Skin No Abnormality Appearance) (Pt Warm) -Tenderness on Palpation (Brittany-wound No Skin Appearance) -Ulcer Cleansing Rinsed/ Irrigated with Saline -Foul Odor after Cleansing No -Anesthetic Used 5% Lidocaine Gel WC - Nurse 2 - General Ulcer CM Notes Start: 11/09/20 08:44 Freq: Status: Active Protocol: Activity Type Activity Date Activity User E-Sign Co-Sign Detail Recorded Client Recorded Date Recorded By Document 11/09/20 08:52 MICHAEL [id number] 11/09/20 09:00 MICHAEL 11/09/20 08:52 Wound Center Nurse 2 #3 left plantar hallux -Time 08:52 -Correct Patient Yes -Correct Side, Site, Position Yes -Correct Procedure Yes -Procedure Performed Yes -Type of Procedure Debridement -Clinical Debridement Subcutaneous -Tissue Removed Subcutaneous -Post Debridement (cm) - Length 0.3 -Post Debridement (cm) - Width 0.2 -Post Debridement (cm) - Depth 0.1 -Total Square (Post) (cm) 0.06 -Area of Debridement (cm) - Length 0.3 -Area of Debridement (cm) - Width 0.2 -Total Square (Area) (cm) 0.06 -Tunneling No -Undermining/Tunneling No -Circular Undermining No -Ulcer Cleansing Rinsed/ Irrigated with Saline -Foul Odor after Cleansing No -Bioengineered Tissue No -Bleeding Controlled with Pressure -Offloading No -Treatment Response Procedure Tolerated Well -Debridement - Subq, 1st 20sq cm Yes #2 left hallux -Time 08:58 -Correct Patient Yes -Correct Side, Site, Position Yes -Correct Procedure Yes -Procedure Performed Yes -Type of Procedure Debridement -Clinical Debridement Subcutaneous -Tissue Removed Subcutaneous -Post Debridement (cm) - Length 2.1 -Post Debridement (cm) - Width 1.6 -Post Debridement (cm) - Depth 0.2 -Total Square (Post) (cm) 3.36 -Area of Debridement (cm) - Length 2.1 -Area of Debridement (cm) - Width 1.6 -Total Square (Area) (cm) 3.36 -Tunneling No -Undermining/Tunneling No -Circular Undermining No -Wound/Ulcer Outcome Not Healed -Ulcer Cleansing Rinsed/ Irrigated with Saline -Foul Odor after Cleansing No -Bioengineered Tissue Yes -Type of Bioengineered Tissue Epicord -Expiration Date 08/04/25 -Product Lot Number [id number] -Percent Used 100 -Lot number of Saline Used [id number] -Bleeding Controlled with Pressure -Offloading No -Treatment Response Procedure Tolerated Well -Debridement - Subq, 1st 20sq cm No -Apply Skin Sub - 1st 25 sq cm - Feet 1 -Epicord (per sq cm) 6 Pain Scale: 0-10 Numeric Is Patient Pain Free? Yes Wound debrided: left hallux Wound Grade/Stage: 1 (plantar), 2 (dorsal Type of Debridement: Excisional debridement Anesthesia Used: 4% Lidocaine Solution Depth: in the subcutaneous layer Percentage of wound debrided: 100 Instrument Used: #15 blade Tissue Removed: fibrous, devitalized subcutaneous, biofilm, slough Severity: Fat Layer Exposed Amount of bleeding with debridement: Mild Bleeding Controlled with: Pressure Patient tolerated procedure: Patient tolerated procedure well Assessment/Plan Assessment/Plan (1) Non-pressure 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: CODE(S): L97.523 - Non-pressure 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 (2) Type 2 diabetes mellitus with diabetic polyneuropathy: CODE(S): E11.42 - Type 2 diabetes mellitus with diabetic polyneuropathy QUALIFIERS: Diabetes mellitus terminologist insulin use: with care home use Qualified Code(s): E11.42 - Type 2 diabetes mellitus with diabetic polyneuropathy; Z79.4 - terminal make up operator (current) use of insulin (3) Caloric malnutrition: CODE(S): E46 - Unspecified protein-calorie malnutrition (4) Ulcer of left foot with fat layer exposed: CODE(S): L97.522 - Non-pressure chronic ulcer of other part of left foot with fat layer exposed PLAN: The following work up and care recommendations were made: Dressing: He has an advanced wound healing product in place, epi cord, and he is advised to leave this secondary dressing clean and intact until follow-up next week Tissue growth optimization: His ulcer has been open for over 1 month. It is noted he was first seen during his hospitalization for this condition on 10-07-28. I recommend advanced wound healing product epi cord and epi fix which is placental and umbilical cord drived. This is medically necessary for limb salvage. He is at risk for continued infection, delayed ulcer healing and limb loss. Verbal consent was obtained and this was applied according to standard protocol. This was secured in place with a wound veil and Steri-Strips. He tolerated this well. Offloading: I recommend offloading with surgical shoe he defers today. He has open toe sandals at home and will wear this instead Vascular: Noninvasive arterial studies were performed during his last hospitalization he has good perfusion to bilateral foot Edema: To wear Tubigrip to maintain reduced edema status. To elevate limbs at rest. Infection: His local signs of infection have resolved. His x-rays were reviewed during his last hospitalization without acute osseous destruction or soft tissue emphysema. He did have an MRI for the left foot while he was last hospitalized and this was negative for osteomyelitis. He was discharged home with 7-day course of Augmentin per infectious disease recommendations. I do not recommend additional antibiotics at this time. Pain: This is not present due to his neuropathy Host factors: His diabetic status is noted. Nutrition: I recommend Denis nutritional supplementation optimize healing. He will try to purchase a month supply at the cafeteria. I answered all the patient's questions. To return to the wound healing center in 1 week or call sooner if the patient has any questions or concerns.
[2020-11-16 08:49] VITALS: BP 152/95; PULSE 67; RESP 18; TEMP 37; BMI 42.5
--- NOTE | 2020-11-16 08:50 | WC ---
epicord and steridtrips intact wound not measured tody
--- NOTE | 2020-11-16 08:51 | WC ---
wound veil and strips intact
--- NOTE | 2020-11-16 12:20 | PN.PCM_ITS ---
History of Present Illness Date of Service: 11/16/20 Chief Complaint: Left great toe ulcer History of Wound: This 60-year-old diabetic male seen as a hospital follow-up for bilateral great toe ulcers. The onset was approximately mid September 2020 in which he developed blisters after wearing boots with increased swelling cannot work. He denies drainage from the right foot at this time and has kept his dressing clean and intact with epi cord in place as advised. He completed his infection management with infectious disease specialist. He denies redness or odor. He denies fever, chill, nausea, vomiting. He denies claudication. He wears an offloading sandal. Progress of Wound: Stable Objective Data Objective Data Vital Signs: Vital Signs Temp Pulse Resp BP 98.6 F 67 18 152/95 H 11/16/20 08:49 11/16/20 08:49 11/16/20 08:49 11/16/20 08:49 Oxygen Delivery Method Room Air Body Mass Index (BMI) 42.5 Physical Exam Const alert and oriented x3 General Appearance: cooperative HEENT normocephalic Extremity Extremity Narrative: No calf tenderness Diminished pulses Muscle wasting noted General Extremity: edema and no tenderness to palpation of joints or extremities; Negative for cyanosis Skin Skin Narrative: no purulence, no streaking, no odor, no infection Granular base dorsal hallux ulcer with deeper distal wound probing (not to bone or capsule). Epi cord remains intact and is incorporating well with wound veil and Steri-Strips reapplied and secured. Adjacent skin is hairless and atrophic Full epithelialization to plantar hallux ulcer No maceration or necrosis General Skin Exam: Negative for erythema Neuro Neuro Narrative: lack of normal epicritic sensation via light touch is consistent with neuropathy status Psych cooperative and affect normal Debridement Note Debridement Note Post-Debridement Measurements and Additional Note: Post-Debridement Measurements/Treatment MELANY - Nurse 1 - General Ulcer Assessment Start: 11/09/20 08:44 Freq: Status: Active Protocol: ARIELLE Activity Type Activity Date Activity User E-Sign Co-Sign Detail Recorded Client Recorded Date Recorded By Document 11/09/20 08:44 RB Desktop 11/09/20 08:46 RB Document 11/16/20 08:49 RB Desktop 11/16/20 08:51 RB 11/09/20 11/16/20 08:44 08:49 - Today's Visit Information Type of service Follow-up Visit Follow-up Visit (Physician/OCCUPATIONAL SAFETY AND HEALTH MANAGER (Physician/OCCUPATIONAL SAFETY AND HEALTH MANAGER ) ) Arrival Mode Ambulatory Ambulatory Transfer Assistance None None Patient Identification Verified (Name & Yes Yes ) Patient Requires Transmission-Based No No Precautions Height and Weight Body Mass Index (BMI) 42.5 42.5 BMI Classification Obese Obese Vital Signs Temperature (97.8 F-99.1 F) 97.5 F L 98.6 F Temperature Source Temporal Temporal Pulse Rate (60-100) 71 67 Pulse Location Monitor Monitor Respiratory Rate (12-18) 16 18 Respiratory rate source Observation Observation Oxygen Delivery Method Room Air Blood Pressure (90/60-120/80) 122/73 H 152/95 H Blood Pressure Mean (mm Hg) 89 114 Source Monitor Monitor Position Sitting Semi-Fowlers Blood Pressure Location Left Arm Left Arm History Since Last Visit- (Skip if this is Patient's initial visit) Have you changed medications since your No No last visit? Any new allergies or adverse reactions No No Had a fall/change in ADL's that may No No increase risk of falls Signs or symptoms of abuse and/or No No neglect since last visit Have you been in the hospital since your No No last visit? Has dressing in place as prescribed Yes Yes Has compression in place as prescribed N/A No Has offloadiing in place as prescribed N/A Yes Experienced any changes in pain level or No No management Left Footwear Regular Shoe Right Footwear Regular Shoe Pain Scale: 0-10 Numeric Is Patient Pain Free? Yes Yes - Nurse 1 - General Ulcer Measurement Start: 11/09/20 08:44 Freq: Status: Active Protocol: Activity Type Activity Date Activity User E-Sign Co-Sign Detail Recorded Client Recorded Date Recorded By Document 11/09/20 08:44 RB Desktop 11/09/20 08:46 RB Document 11/16/20 08:49 RB Desktop 11/16/20 08:51 RB 11/09/20 11/16/20 08:44 08:49 Wound Center Nurse 1 #3 left plantar hallux -Combined with other wound No No -Current Size (cm) - Length 0.1 -Current Size (cm) - Width 0.1 -Current Size (cm) - Depth 0.1 -Total Square Cm 0.01 -Photo Taken No -Epithelialization Large 67-100% -Tunneling No -Undermining/Tunneling No -Circular Undermining No -Exudate Amt None Present Small -Exudate Type Serosanguineous -Necrosis Amt Small (1-33%) -Necrotic Tissue Type Eschar -Structure Exposed N/A -Texture (Brittayn-wound Skin Appearance) Callus,Scarring Assessed -Moisture (Brittany-wound Skin Appearance) Dry/Scaly Assessed -Color (Brittany-wound Skin Appearance) Assessed Assessed -Temperature (Brittany-wound Skin No Abnormality Appearance) (Pt Warm) -Tenderness on Palpation (Brittany-wound No Skin Appearance) -Ulcer Cleansing Rinsed/ Wound Cleanser Irrigated with Saline -Foul Odor after Cleansing No No -Anesthetic Used 5% Lidocaine Gel #2 left hallux -Combined with other wound No -Current Size (cm) - Length 2 -Current Size (cm) - Width 1.5 -Current Size (cm) - Depth 0.1 -Total Square Cm 3.0 -Photo Taken No -Epithelialization Small 1-33% -Tunneling No No -Undermining/Tunneling No No -Circular Undermining No No -Exudate Amt Medium Small -Exudate Type Serosanguineous Serosanguineous -Wound Margin Flat & Intact -Granulation Amt Large (67-100%) -Granulation Quality Red -Slough/Fibrin Yes -Necrosis Amt Small (1-33%) -Necrotic Tissue Type Adherent Slough -Texture (Brittany-wound Skin Appearance) Assessed, Scarring -Moisture (Brittany-wound Skin Appearance) Assessed,Dry/ Scaly -Color (Brittany-wound Skin Appearance) Assessed -Temperature (Brittany-wound Skin No Abnormality Appearance) (Pt Warm) -Tenderness on Palpation (Brittany-wound No Skin Appearance) -Ulcer Cleansing Rinsed/ Irrigated with Saline -Foul Odor after Cleansing No -Anesthetic Used 5% Lidocaine Gel 11/16/20 08:50 Wound Center by Renu Del Toro intact wound not measured tody Initialized on 11/16/20 08:50 - END OF NOTE WC - Nurse 2 - General Ulcer CM Notes Start: 11/09/20 08:44 Freq: Status: Active Protocol: Activity Type Activity Date Activity User E-Sign Co-Sign Detail Recorded Client Recorded Date Recorded By Document 11/09/20 08:52 MICHAEL [email or web address] 11/09/20 09:00 JF 11/09/20 08:52 Wound Center Nurse 2 #3 left plantar hallux -Time 08:52 -Correct Patient Yes -Correct Side, Site, Position Yes -Correct Procedure Yes -Procedure Performed Yes -Type of Procedure Debridement -Clinical Debridement Subcutaneous -Tissue Removed Subcutaneous -Post Debridement (cm) - Length 0.3 -Post Debridement (cm) - Width 0.2 -Post Debridement (cm) - Depth 0.1 -Total Square (Post) (cm) 0.06 -Area of Debridement (cm) - Length 0.3 -Area of Debridement (cm) - Width 0.2 -Total Square (Area) (cm) 0.06 -Tunneling No -Undermining/Tunneling No -Circular Undermining No -Ulcer Cleansing Rinsed/ Irrigated with Saline -Foul Odor after Cleansing No -Bioengineered Tissue No -Bleeding Controlled with Pressure -Offloading No -Treatment Response Procedure Tolerated Well -Debridement - Subq, 1st 20sq cm Yes #2 left hallux -Time 08:58 -Correct Patient Yes -Correct Side, Site, Position Yes -Correct Procedure Yes -Procedure Performed Yes -Type of Procedure Debridement -Clinical Debridement Subcutaneous -Tissue Removed Subcutaneous -Post Debridement (cm) - Length 2.1 -Post Debridement (cm) - Width 1.6 -Post Debridement (cm) - Depth 0.2 -Total Square (Post) (cm) 3.36 -Area of Debridement (cm) - Length 2.1 -Area of Debridement (cm) - Width 1.6 -Total Square (Area) (cm) 3.36 -Tunneling No -Undermining/Tunneling No -Circular Undermining No -Wound/Ulcer Outcome Not Healed -Ulcer Cleansing Rinsed/ Irrigated with Saline -Foul Odor after Cleansing No -Bioengineered Tissue Yes -Type of Bioengineered Tissue Epicord -Expiration Date 08/04/25 -Product Lot Number [id number] -Percent Used 100 -Lot number of Saline Used [id number] -Bleeding Controlled with Pressure -Offloading No -Treatment Response Procedure Tolerated Well -Debridement - Subq, 1st 20sq cm No -Apply Skin Sub - 1st 25 sq cm - Feet 1 -Epicord (per sq cm) 6 Pain Scale: 0-10 Numeric Is Patient Pain Free? Yes WC - Nurse 3 - General Ulcer D/C NN Start: 11/09/20 08:44 Freq: Status: Active Protocol: Activity Type Activity Date Activity User E-Sign Co-Sign Detail Recorded Client Recorded Date Recorded By Document 11/16/20 09:26 DL Desktop 11/16/20 09:28 DL 11/16/20 09:26 Wound Care Nurse 3 #3 left plantar hallux -Foul Odor after Cleansing No -Other Dressing Epicord recheck today -Primary Dressing Covered/Secured with Dry Gauze, Secured with Tape #2 left hallux -Foul Odor after Cleansing No -Other Dressing Epicord recheck -Primary Dressing Covered/Secured with Dry Gauze, Secured with Tape Treatment Response Procedure Tolerated Well Pain Scale: 0-10 Numeric Is Patient Pain Free? Yes WC - Visit Discharge Discharge Condition Stable Ambulatory Status Ambulatory Transportation Private Auto Assessment/Plan Assessment/Plan (1) Non-pressure 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: CODE(S): L97.523 - Non-pressure 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 (2) Type 2 diabetes mellitus with diabetic polyneuropathy: CODE(S): E11.42 - Type 2 diabetes mellitus with diabetic polyneuropathy QUALIFIERS: Diabetes mellitus prison insulin use: with prison use Qualified Code(s): E11.42 - Type 2 diabetes mellitus with diabetic polyneuropathy; Z79.4 - long term (current) use of insulin (3) Caloric malnutrition: CODE(S): E46 - Unspecified protein-calorie malnutrition (4) Ulcer of left foot with fat layer exposed: CODE(S): L97.522 - Non-pressure chronic ulcer of other part of left foot with fat layer exposed PLAN: The following work up and care recommendations were made: Dressing: He has an advanced wound healing product in place, epi cord, and he is advised to leave this secondary dressing clean and intact until follow-up next week . Additional debridement and reapplication will be considered next week. Tissue growth optimization: I recommend advanced wound healing product epi cord and epi fix which is placental and umbilical cord drived. This is medically necessary for limb salvage. He is at risk for continued infection, delayed ulcer healing and limb loss. Offloading: I recommend offloading with surgical shoe he defers today. He has open toe sandals at home and will wear this instead Vascular: Noninvasive arterial studies were performed during his last hospitalization he has good perfusion to bilateral foot Edema: To wear Tubigrip to maintain reduced edema status. To elevate limbs at rest. Infection: His local signs of infection have resolved. His x-rays were reviewed during his last hospitalization without acute osseous destruction or soft tissue emphysema. He did have an MRI for the left foot while he was last hospitalized and this was negative for osteomyelitis. He was discharged home with 7-day course of Augmentin per infectious disease recommendations. I do not recommend additional antibiotics at this time. Pain: This is not present due to his neuropathy Host factors: His diabetic status is noted. Nutrition: I recommend Denis nutritional supplementation optimize healing. He is taking this as advised. I answered all the patient's questions. To return to the wound healing center in 1 week or call sooner if the patient has any questions or concerns. The medical decision making level is straightforward. The problem treated is minor or self-limiting. There is noted minimal risk of morbidity after considering this treatment plan and diagnostic data.
[2020-11-23 13:03] VITALS: BP 148/76; PULSE 78; RESP 16; TEMP 37; BMI 42.5
--- NOTE | 2020-11-23 15:05 | PN.PCM_ITS ---
History of Present Illness Date of Service: 11/23/20 Chief Complaint: Left great toe ulcer History of Wound: This 60-year-old diabetic male seen as a hospital follow-up for bilateral great toe ulcers. The onset was approximately mid September 2020 in which he developed blisters after wearing boots with increased swelling cannot work. He denies drainage from the right foot at this time and has kept his dressing clean and intact with epi cord in place as advised. He completed his infection management with infectious disease specialist. He denies redness or odor. He denies fever, chill, nausea, vomiting. He denies claudication. He wears an offloading sandal. Progress of Wound: Improving Objective Data Objective Data Vital Signs: Vital Signs Temp Pulse Resp BP 98.6 F 78 16 148/76 H 11/23/20 13:03 11/23/20 13:03 11/23/20 13:03 11/23/20 13:03 Oxygen Delivery Method Room Air Body Mass Index (BMI) 42.5 Physical Exam Const alert and oriented x3 General Appearance: cooperative HEENT normocephalic Extremity Extremity Narrative: No calf tenderness Diminished pulses Muscle wasting noted General Extremity: edema and no tenderness to palpation of joints or extremities; Negative for cyanosis Skin Skin Narrative: no purulence, no streaking, no odor, no infection Granular base dorsal hallux ulcer decreased size (not to bone or capsule). Epi cord remains intact and is incorporating well with wound veil and Steri-Strips reapplied and secured. Adjacent skin is hairless and atrophic Full epithelialization to plantar hallux ulcer No maceration or necrosis General Skin Exam: Negative for erythema Neuro Neuro Narrative: lack of normal epicritic sensation via light touch is consistent with neuropathy status Psych cooperative and affect normal Debridement Note Debridement Note Post-Debridement Measurements and Additional Note: Post-Debridement Measurements/Treatment MELANY - Nurse 1 - General Ulcer Assessment Start: 11/09/20 08:44 Freq: Status: Active Protocol: ARIELLE Activity Type Activity Date Activity User E-Sign Co-Sign Detail Recorded Client Recorded Date Recorded By Document 11/09/20 08:44 RB Desktop 11/09/20 08:46 RB Document 11/16/20 08:49 RB Desktop 11/16/20 08:51 RB Document 11/23/20 13:03 [facility] [id number] 11/23/20 13:10 BMF 11/09/20 11/16/20 11/23/20 08:44 08:49 13:03 - Today's Visit Information Type of service Follow-up Visit Follow-up Visit Follow-up Visit (Physician/SUPERVISOR PRODUCTION (Physician/SUPERVISOR PRODUCTION (Physician/SUPERVISOR PRODUCTION ) ) ) Arrival Mode Ambulatory Ambulatory Ambulatory Transfer Assistance None None None Patient Identification Verified (Name & Yes Yes Yes ) Patient Requires Transmission-Based No No Precautions Height and Weight Body Mass Index (BMI) 42.5 42.5 42.5 BMI Classification Obese Obese Obese Vital Signs Temperature (97.8 F-99.1 F) 97.5 F L 98.6 F 98.6 F Temperature Source Temporal Temporal Temporal Pulse Rate (60-100) 71 67 78 Pulse Location Monitor Monitor Monitor Respiratory Rate (12-18) 16 18 16 Respiratory rate source Observation Observation Observation Oxygen Delivery Method Room Air Room Air Blood Pressure (90/60-120/80) 122/73 H 152/95 H 148/76 H Blood Pressure Mean (mm Hg) 89 114 100 Source Monitor Monitor Monitor Position Sitting Semi-Fowlers Blood Pressure Location Left Arm Left Arm History Since Last Visit- (Skip if this is Patient's initial visit) Have you changed medications since your No No No last visit? Any new allergies or adverse reactions No No No Had a fall/change in ADL's that may No No No increase risk of falls Signs or symptoms of abuse and/or No No No neglect since last visit Have you been in the hospital since your No No No last visit? Has dressing in place as prescribed Yes Yes Yes Has compression in place as prescribed N/A No N/A Has offloadiing in place as prescribed N/A Yes N/A Experienced any changes in pain level or No No No management Left Footwear Regular Shoe Slipper Right Footwear Regular Shoe Slipper Pain Scale: 0-10 Numeric Is Patient Pain Free? Yes Yes Yes - Nurse 1 - General Ulcer Measurement Start: 11/09/20 08:44 Freq: Status: Active Protocol: Activity Type Activity Date Activity User E-Sign Co-Sign Detail Recorded Client Recorded Date Recorded By Document 11/09/20 08:44 RB Desktop 11/09/20 08:46 RB Document 11/16/20 08:49 RB Desktop 11/16/20 08:51 RB Document 11/23/20 13:03 [facility] [id number] 11/23/20 13:10 [facility] 11/09/20 11/16/20 11/23/20 08:44 08:49 13:03 Wound Center Nurse 1 #3 left plantar hallux -Combined with other wound No No No -Current Size (cm) - Length 0.1 0.1 -Current Size (cm) - Width 0.1 0.1 -Current Size (cm) - Depth 0.1 0.1 -Total Square Cm 0.01 0.01 -Photo Taken No -Epithelialization Large 67-100% None Present -Tunneling No -Undermining/Tunneling No -Circular Undermining No -Exudate Amt None Present Small None Present -Exudate Type Serosanguineous -Wound Margin Distinct, Outline Attached -Granulation Amt None Present (0 %) -Slough/Fibrin Yes -Necrosis Amt Small (1-33%) Large (67-100%) -Necrotic Tissue Type Eschar Adherent Slough -Structure Exposed N/A -Texture (Brittany-wound Skin Appearance) Callus,Scarring Assessed Assessed -Moisture (Brittany-wound Skin Appearance) Dry/Scaly Assessed Assessed -Color (Brittany-wound Skin Appearance) Assessed Assessed Assessed -Temperature (Brittany-wound Skin No Abnormality No Abnormality Appearance) (Pt Warm) (Pt Warm) -Tenderness on Palpation (Brittany-wound No No Skin Appearance) -Ulcer Cleansing Rinsed/ Wound Cleanser Rinsed/ Irrigated with Irrigated with Saline Saline -Foul Odor after Cleansing No No No -Anesthetic Used 5% Lidocaine 5% Lidocaine Gel Gel #2 left hallux -Combined with other wound No No -Current Size (cm) - Length 2 1.1 -Current Size (cm) - Width 1.5 0.9 -Current Size (cm) - Depth 0.1 0.1 -Total Square Cm 3.0 0.99 -Photo Taken No No -Epithelialization Small 1-33% None Present -Tunneling No No No -Undermining/Tunneling No No No -Circular Undermining No No No -Exudate Amt Medium Small Medium -Exudate Type Serosanguineous Serosanguineous Serosanguineous -Wound Margin Flat & Intact Distinct, Outline Attached -Granulation Amt Large (67-100%) Medium (34-66%) -Granulation Quality Red Red -Slough/Fibrin Yes Yes -Necrosis Amt Small (1-33%) Medium (34-66%) -Necrotic Tissue Type Adherent Slough Adherent Slough -Texture (Brittany-wound Skin Appearance) Assessed, Assessed, Scarring Scarring -Moisture (Brittany-wound Skin Appearance) Assessed,Dry/ Assessed,Dry/ Scaly Scaly -Color (Brittany-wound Skin Appearance) Assessed Assessed -Temperature (Brittany-wound Skin No Abnormality No Abnormality Appearance) (Pt Warm) (Pt Warm) -Tenderness on Palpation (Brittany-wound No No Skin Appearance) -Ulcer Cleansing Rinsed/ Rinsed/ Irrigated with Irrigated with Saline Saline -Foul Odor after Cleansing No No -Anesthetic Used 5% Lidocaine 5% Lidocaine Gel Gel 11/16/20 08:50 Wound Center by Renu Del Toro and jessica intact wound not measured tody Initialized on 11/16/20 08:50 - END OF NOTE WC - Nurse 2 - General Ulcer CM Notes Start: 11/09/20 08:44 Freq: Status: Active Protocol: Activity Type Activity Date Activity User E-Sign Co-Sign Detail Recorded Client Recorded Date Recorded By Document 11/09/20 08:52 [id number] 11/09/20 09:00 Document 11/23/20 13:21 JF [id number] 11/23/20 13:31 11/09/20 11/23/20 08:52 13:21 Wound Center Nurse 2 #3 left plantar hallux -Time 08:52 13:21 -Correct Patient Yes No -Correct Side, Site, Position Yes No -Correct Procedure Yes No -Procedure Performed Yes No -Type of Procedure Debridement -Clinical Debridement Subcutaneous -Tissue Removed Subcutaneous -Post Debridement (cm) - Length 0.3 0 -Post Debridement (cm) - Width 0.2 0 -Post Debridement (cm) - Depth 0.1 0 -Total Square (Post) (cm) 0.06 0 -Area of Debridement (cm) - Length 0.3 0 -Area of Debridement (cm) - Width 0.2 0 -Total Square (Area) (cm) 0.06 0 -Tunneling No No -Undermining/Tunneling No No -Circular Undermining No No -Wound/Ulcer Outcome Healed- Epithelialized -Ulcer Cleansing Rinsed/ Rinsed/ Irrigated with Irrigated with Saline Saline -Foul Odor after Cleansing No No -Bioengineered Tissue No No -Bleeding Controlled with Pressure Pressure -Offloading No Yes -Type of Offloading Surgical Shoe -Treatment Response Procedure Procedure Tolerated Well Tolerated Well -Debridement - Subq, 1st 20sq cm Yes Yes #2 left hallux -Time 08:58 13:22 -Correct Patient Yes Yes -Correct Side, Site, Position Yes Yes -Correct Procedure Yes Yes -Procedure Performed Yes Yes -Type of Procedure Debridement Debridement -Clinical Debridement Subcutaneous Subcutaneous -Tissue Removed Subcutaneous Subcutaneous -Post Debridement (cm) - Length 2.1 2.5 -Post Debridement (cm) - Width 1.6 1 -Post Debridement (cm) - Depth 0.2 0.1 -Total Square (Post) (cm) 3.36 2.5 -Area of Debridement (cm) - Length 2.1 2.5 -Area of Debridement (cm) - Width 1.6 1 -Total Square (Area) (cm) 3.36 2.5 -Tunneling No No -Undermining/Tunneling No No -Circular Undermining No No -Wound/Ulcer Outcome Not Healed Not Healed -Ulcer Cleansing Rinsed/ Rinsed/ Irrigated with Irrigated with Saline Saline -Foul Odor after Cleansing No No -Bioengineered Tissue Yes Yes -Type of Bioengineered Tissue Epicord Epifix -Expiration Date 08/04/25 07/04/25 -Product Lot Number [id number] -Percent Used 100 100 -Lot number of Saline Used [id number] -Bleeding Controlled with Pressure Pressure -Offloading No Yes -Type of Offloading Surgical Shoe -Treatment Response Procedure Procedure Tolerated Well Tolerated Well -Debridement - Subq, 1st 20sq cm No No -Apply Skin Sub - 1st 25 sq cm - Feet 1 1 -Epicord (per sq cm) 6 -Epifix (per sq cm) 4 Pain Scale: 0-10 Numeric Is Patient Pain Free? Yes Yes WC - Nurse 3 - General Ulcer D/C NN Start: 11/09/20 08:44 Freq: Status: Active Protocol: Activity Type Activity Date Activity User E-Sign Co-Sign Detail Recorded Client Recorded Date Recorded By Document 11/16/20 09:26 DL Desktop 11/16/20 09:28 DL Document 11/23/20 13:34 VA [id number] 11/23/20 13:36 VA 11/16/20 11/23/20 09:26 13:34 Wound Care Nurse 3 #3 left plantar hallux -Foul Odor after Cleansing No -Other Dressing Epicord recheck today -Primary Dressing Covered/Secured with Dry Gauze, Secured with Tape #2 left hallux -Foul Odor after Cleansing No -Other Dressing Epicord recheck epifix -Primary Dressing Covered/Secured with Dry Gauze, Dry Gauze, Secured with Secured with Tape Tape -Other Covering drsg per vt rn Treatment Response Procedure Procedure Tolerated Well Tolerated Well Pain Scale: 0-10 Numeric Is Patient Pain Free? Yes Yes WC - Visit Discharge Discharge Condition Stable Stable Ambulatory Status Ambulatory Ambulatory Transportation Private Auto Private Auto Wound debrided: Left dorsal hallux Wound Grade/Stage: 2 Type of Debridement: Excisional debridement Anesthesia Used: 4% Lidocaine Solution Depth: in the subcutaneous layer Percentage of wound debrided: 100 Instrument Used: #15 blade Tissue Removed: fibrous, devitalized subcutaneous, biofilm, slough Severity: Fat Layer Exposed Amount of bleeding with debridement: Mild Bleeding Controlled with: Pressure Patient tolerated procedure: Patient tolerated procedure well Assessment/Plan Assessment/Plan (1) Non-pressure 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: CODE(S): L97.523 - Non-pressure 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 (2) Type 2 diabetes mellitus with diabetic polyneuropathy: CODE(S): E11.42 - Type 2 diabetes mellitus with diabetic polyneuropathy QUALIFIERS: Diabetes mellitus continuous churn buttermaker insulin use: with continuous churn buttermaker use Qualified Code(s): E11.42 - Type 2 diabetes mellitus with diabetic polyneuropathy; Z79.4 - correction (current) use of insulin (3) Caloric malnutrition: CODE(S): E46 - Unspecified protein-calorie malnutrition (4) Ulcer of left foot with fat layer exposed: CODE(S): L97.522 - Non-pressure chronic ulcer of other part of left foot with fat layer exposed PLAN: The following work up and care recommendations were made: Dressing: He has an advanced wound healing product in place, epi fix, and he is advised to leave this secondary dressing clean and intact until follow-up next week. Then, he was advised to wash with soap and water and change dressing daily with Aquacel Ag. Tissue growth optimization: I recommend advanced wound healing product epi fix which is placental and umbilical cord drived. This is medically necessary for limb salvage. He is at risk for continued infection, delayed ulcer healing and limb loss. Verbal consent was obtained today. This was applied according to standard protocol and was secured in place with a wound veil and Steri- Strips. 100% of the product was utilized. He was advised to keep this clean, dry, and intact for 1 full week. Offloading: I recommend offloading with surgical shoe he defers today. He has open toe sandals at home and will wear this instead Vascular: Noninvasive arterial studies were performed during his last hospitalization he has good perfusion to bilateral foot Edema: To wear Tubigrip to maintain reduced edema status. To elevate limbs at rest. Infection: His local signs of infection have resolved. His x-rays were reviewed during his last hospitalization without acute osseous destruction or soft tissue emphysema. He did have an MRI for the left foot while he was last hospitalized and this was negative for osteomyelitis. He was discharged home with 7-day course of Augmentin per infectious disease recommendations. I do not recommend additional antibiotics at this time. Pain: This is not present due to his neuropathy Host factors: His diabetic status is noted. Nutrition: I recommend Denis nutritional supplementation optimize healing. He is taking this as advised. I answered all the patient's questions. To return to the wound healing center in 1 week or call sooner if the patient has any questions or concerns.
== END 2020-12-03 23:59 ==
LOC: WC 13:00
PROVIDERS: Visit Provider Podiatrist
DX: E11.621 Type 2 diabetes mellitus with foot ulcer (principal); R60.0 Localized edema; L97.522 Non-pressure chronic ulcer of other part of left foot with fat layer exposed; E11.42 Type 2 diabetes mellitus with diabetic polyneuropathy
CPT/HCPCS: 11042; 15275; 99213; Q4186; Q4187; G0463

== ENCOUNTER 2020-12-21 10:45 | Outpatient (RCR) | payer MEDICARE, MEDICAID, SELFPAY ==
[2020-12-04 00:33] VITALS: BP 148/76; PULSE 78; RESP 16; TEMP 37
[2020-12-14 11:09] VITALS: BP 128/86; PULSE 72; RESP 18; TEMP 36.1; BMI 42.5
--- NOTE | 2020-12-14 11:27 | PCM.WC.PN ---
History of Present Illness Date of Service: 12/14/20 Chief Complaint: Left great toe ulcer History of Wound: This 60-year-old diabetic male seen as a hospital follow-up for bilateral great toe ulcers. The onset was approximately mid September 2020 in which he developed blisters after wearing boots with increased swelling cannot work. He denies drainage from the right foot at this time and has kept his dressing clean and intact with epifix in place as advised. He completed his infection management with infectious disease specialist. He denies redness or odor. He denies fever, chill, nausea, vomiting. He denies claudication. He wears an offloading sandal. He also complains of worsening diabetic neuropathy with paresthesias and altered sensation to both feet especially the toes while he is resting and also while he is trying to sleep at night. He has tried gabapentin and also Lyrica for this which only provides temporary partial relief. He asked if there are other interventions. He denies recent back pain or injury. Progress of Wound: improving Objective Data Objective Data Vital Signs: Vital Signs Temp Pulse Resp BP 97 F L 72 18 128/86 H 12/14/20 11:09 12/14/20 11:09 12/14/20 11:09 12/14/20 11:09 Body Mass Index (BMI) 42.5 Physical Exam Const alert and oriented x3 General Appearance: cooperative HEENT normocephalic Extremity Extremity Narrative: No calf tenderness Diminished pulses Muscle wasting noted General Extremity: edema and no tenderness to palpation of joints or extremities; Negative for cyanosis Skin Skin Narrative: no purulence, no streaking, no odor, no infection Granular base dorsal hallux ulcer decreased size (not to bone or capsule- decreased in size). Adjacent skin is hairless and atrophic No maceration or necrosis General Skin Exam: Negative for erythema Neuro Neuro Narrative: lack of normal epicritic sensation via light touch is consistent with neuropathy status Psych cooperative and affect normal Debridement Note Debridement Note Post-Debridement Measurements and Additional Note: Post-Debridement Measurements/Treatment MELANY - Nurse 1 - General Ulcer Assessment Start: 12/14/20 11:08 Freq: Status: Active Protocol: SUGEYEXChaz Activity Type Activity Date Activity User E-Sign Co-Sign Detail Recorded Client Recorded Date Recorded By Document 12/14/20 11:09 Desktop 12/14/20 11:16 RB 12/14/20 11:09 MELANY - Today's Visit Information Type of service Follow-up Visit (Physician/BEAUTY DIRECTOR ) Arrival Mode Ambulatory Transfer Assistance None Patient Identification Verified (Name & Yes ) Patient Requires Transmission-Based No Precautions Height and Weight Body Mass Index (BMI) 42.5 BMI Classification Obese Vital Signs Temperature (97.8 F-99.1 F) 97 F L Temperature Source Temporal Pulse Rate (60-100) 72 Pulse Location Monitor Respiratory Rate (12-18) 18 Respiratory rate source Observation Blood Pressure (90/60-120/80) 128/86 H Blood Pressure Mean (mm Hg) 100 Source Monitor Position Semi-Fowlers Blood Pressure Location Left Arm History Since Last Visit- (Skip if this is Patient's initial visit) Have you changed medications since your No last visit? Any new allergies or adverse reactions No Had a fall/change in ADL's that may No increase risk of falls Signs or symptoms of abuse and/or No neglect since last visit Have you been in the hospital since your No last visit? Has dressing in place as prescribed Yes Has compression in place as prescribed No Has offloadiing in place as prescribed No Experienced any changes in pain level or No management Left Footwear Regular Shoe Right Footwear Regular Shoe Pain Scale: 0-10 Numeric Is Patient Pain Free? Yes - Nurse 1 - General Ulcer Measurement Start: 12/14/20 11:08 Freq: Status: Active Protocol: Activity Type Activity Date Activity User E-Sign Co-Sign Detail Recorded Client Recorded Date Recorded By Document 12/14/20 11:09 Desktop 12/14/20 11:16 12/14/20 11:09 Wound Center Nurse 1 #2 left hallux -Combined with other wound No -Current Size (cm) - Length 0.4 -Current Size (cm) - Width 0.8 -Current Size (cm) - Depth 0.2 -Total Square Cm 0.32 -Tunneling No -Undermining/Tunneling No -Circular Undermining No -Exudate Amt Medium -Exudate Type Serosanguineous -Wound Margin Distinct, Outline Attached -Granulation Amt Medium (34-66%) -Granulation Quality [employer] -Slough/Fibrin Yes -Necrosis Amt Small (1-33%) -Necrotic Tissue Type Adherent Slough -Structure Exposed N/A -Texture (Brittany-wound Skin Appearance) Assessed,Callus ,Scarring -Moisture (Brittany-wound Skin Appearance) Assessed -Color (Brittany-wound Skin Appearance) Assessed -Temperature (Brittany-wound Skin No Abnormality Appearance) (Pt Warm) -Tenderness on Palpation (Brittany-wound No Skin Appearance) -Ulcer Cleansing Wound Cleanser -Foul Odor after Cleansing No -Anesthetic Used 4% Lidocaine Solution WC - Nurse 2 - General Ulcer CM Notes Start: 12/14/20 11:08 Freq: Status: Active Protocol: Activity Type Activity Date Activity User E-Sign Co-Sign Detail Recorded Client Recorded Date Recorded By Document 12/14/20 11:22 MICHAEL [id number] 12/14/20 11:26 MICHAEL 12/14/20 11:22 Wound Center Nurse 2 -Time 11:22 -Correct Patient Yes -Correct Side, Site, Position Yes -Correct Procedure Yes -Procedure Performed Yes -Type of Procedure Debridement -Clinical Debridement Subcutaneous -Tissue Removed Subcutaneous -Post Debridement (cm) - Length 0.5 -Post Debridement (cm) - Width 0.4 -Post Debridement (cm) - Depth 0.1 -Total Square (Post) (cm) 0.20 -Area of Debridement (cm) - Length 0.5 -Area of Debridement (cm) - Width 0.4 -Total Square (Area) (cm) 0.20 -Tunneling No -Undermining/Tunneling No -Circular Undermining No -Wound/Ulcer Outcome Not Healed -Ulcer Cleansing Rinsed/ Irrigated with Saline -Foul Odor after Cleansing No -Bioengineered Tissue Yes -Type of Bioengineered Tissue Epifix 18mm Disc -Expiration Date 09/03/25 -Product Lot Number [id number] -Percent Used 100 -Lot number of Saline Used [id number] -Bleeding Controlled with Pressure -Offloading No -Treatment Response Procedure Tolerated Well -Debridement - Subq, 1st 20sq cm No -Apply Skin Sub - 1st 25 sq cm - Feet 1 -Epifix 18mm Disc 3 Pain Scale: 0-10 Numeric Is Patient Pain Free? Yes Wound debrided: left hallux Wound Grade/Stage: 2 Type of Debridement: Excisional debridement Anesthesia Used: 4% Lidocaine Solution Depth: in the subcutaneous layer Percentage of wound debrided: 100 Instrument Used: #15 blade Tissue Removed: fibrous, devitalized subcutaneous, biofilm, slough Severity: Fat Layer Exposed Amount of bleeding with debridement: Mild Bleeding Controlled with: Pressure Patient tolerated procedure: Patient tolerated procedure well Assessment/Plan Assessment/Plan (1) Non-pressure 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: CODE(S): L97.523 - Non-pressure 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 (2) Type 2 diabetes mellitus with diabetic polyneuropathy: CODE(S): E11.42 - Type 2 diabetes mellitus with diabetic polyneuropathy QUALIFIERS: Diabetes mellitus retirement insulin use: with retirement use Qualified Code(s): E11.42 - Type 2 diabetes mellitus with diabetic polyneuropathy; Z79.4 - retirement (current) use of insulin (3) Caloric malnutrition: CODE(S): E46 - Unspecified protein-calorie malnutrition (4) Ulcer of left foot with fat layer exposed: CODE(S): L97.522 - Non-pressure chronic ulcer of other part of left foot with fat layer exposed (5) Other hereditary and idiopathic neuropathies: CODE(S): G60.8 - Other hereditary and idiopathic neuropathies PLAN: The following work up and care recommendations were made: Dressing: To keep clean, dry, and intact until follow-up next week. Do not get advanced wound healing product like. Tissue growth optimization: I recommend advanced wound healing product epi fix which is placental derived tissue today. This is medically necessary for limb salvage. He is at risk for continued infection, delayed ulcer healing and limb loss. Verbal consent was obtained today. This was applied according to standard protocol and was secured in place with a wound veil and Steri-Strips after verbal consent was obtained. 100% of the product was utilized. a secondary dressing was applied including gauze. Offloading: I recommend offloading with surgical shoe. He has open toe sandals at home and will wear this instead Vascular: Noninvasive arterial studies were performed during his last hospitalization he has good perfusion to bilateral foot Edema: To wear Tubigrip to maintain reduced edema status. To elevate limbs at rest. Infection: His local signs of infection have resolved. His x-rays were reviewed during his last hospitalization without acute osseous destruction or soft tissue emphysema. He did have an MRI for the left foot while he was last hospitalized and this was negative for osteomyelitis. He was discharged home with 7-day course of Augmentin per infectious disease recommendations. I do not recommend additional antibiotics at this time. Pain: This is not present due to his neuropathy Host factors: His diabetic status is noted. Nutrition: I recommend Denis nutritional supplementation optimize healing. He is taking this as advised. We discussed his neuropathy symptoms, potential further work-up and management. He defers epidermal nerve biopsy today would like to proceed forward with met next prescription food supplement. A prescription will be provided. He understands the etiologies options of neuropathy and in his case it is likely secondary to his diabetic neuropathy or other vitamin deficiencies. Is medically necessary to prevent further progression of paresthesias, pain, balance loss, falls and other injuries. This prescription will be sent through a [employer] by the name of [facility]. I answered all the patient's questions. To return to the wound healing center in 1 week or call sooner if the patient has any questions or concerns. The medical decision making level is low. There is noted low risk of morbidity after considering this treatment plan and diagnostic data. The problems addressed require a low medical decision making level which includes two or more minor problems, a stable chronic illness, or an acute uncomplicated illness or injury. The medical decision making level is limited based on data including the review of prior external notes, review of a prior test, or ordering a test.
[2020-12-21 11:05] VITALS: BP 153/81; PULSE 70; RESP 20; TEMP 36.2; BMI 42.5
--- NOTE | 2020-12-21 14:04 | PCM.PROGNOTE ---
Objective Data Objective Data Vital Signs: Vital Signs Temp Pulse Resp BP 97.2 F L 70 20 H 153/81 H 12/21/20 11:05 12/21/20 11:05 12/21/20 11:05 12/21/20 11:05 Body Mass Index (BMI) 42.5
--- NOTE | 2020-12-21 16:03 | PCM.WC.PN ---
History of Present Illness Date of Service: 12/21/20 Chief Complaint: Left great toe ulcer History of Wound: This 60-year-old diabetic male with comorbidities was seen for follow-up of deep infected left hallux ulcer. He thinks it is possibly healed today and denies drainage. He denies fever, chill, nausea, vomiting. Progress of Wound: Healed Objective Data Objective Data Vital Signs: Vital Signs Temp Pulse Resp BP 97.2 F L 70 20 H 153/81 H 12/21/20 11:05 12/21/20 11:05 12/21/20 11:05 12/21/20 11:05 Body Mass Index (BMI) 42.5 Physical Exam Const alert and oriented x3 General Appearance: cooperative HEENT normocephalic Extremity Extremity Narrative: No calf tenderness Diminished pulses Muscle wasting noted Decreased limited first metatarsophalangeal joint range of motion left Compartments remain soft to palpate No bogginess or fluctuance on palpation General Extremity: edema and no tenderness to palpation of joints or extremities; Negative for cyanosis Skin Skin Narrative: no purulence, no streaking, no odor, no infection. Skin is hairless and atrophic. Full epithelialization noted healed ulcer site of left hallux General Skin Exam: Negative for erythema Neuro Neuro Narrative: lack of normal epicritic sensation via light touch is consistent with neuropathy status Psych cooperative and affect normal Assessment/Plan Assessment/Plan (1) Non-pressure 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: CODE(S): L97.523 - Non-pressure 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 (2) Type 2 diabetes mellitus with diabetic polyneuropathy: CODE(S): E11.42 - Type 2 diabetes mellitus with diabetic polyneuropathy QUALIFIERS: Diabetes mellitus residential insulin use: 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 To discontinue dressings. He was reassured no wound or infection are noted. To offload with surgical shoe for additional 1 to 2 weeks to allow skin remodeling. To maintain proper glycemic control. To maintain proper foot hygiene by washing the foot daily with soap and water, drying properly, and to apply lotion daily. He has discharge at the wound healing center at this time. To follow-up with the foot and ankle Center to order extra-depth shoes with dual density Plastizote offloading liners to event additional ulcer formation. He was advised to wear shoes that fit properly and with, depth, and length. I answered all his questions. Note: [employer] speech recognition siene maker software was used to create portions of this document. Sound-alike and misspelled words, as well as other siene maker errors may be contained in the documentation. The medical decision making level is low. There is noted low risk of morbidity after considering this treatment plan and diagnostic data. The problems addressed require a low medical decision making level which includes two or more minor problems, a stable chronic illness, or an acute uncomplicated illness or injury.
== END 2020-12-21 11:41 | disposition home or self-care (01) ==
LOC: WC 10:45
PROVIDERS: Visit Provider Podiatrist
DX: E11.621 Type 2 diabetes mellitus with foot ulcer (principal); R60.0 Localized edema; L97.522 Non-pressure chronic ulcer of other part of left foot with fat layer exposed; E11.42 Type 2 diabetes mellitus with diabetic polyneuropathy; G60.8 Other hereditary and idiopathic neuropathies
CPT/HCPCS: 11042; 15275; 99213; Q4186; G0463

== ENCOUNTER 2021-01-24 10:30 | Outpatient (RCR) | payer MEDICARE, MEDICAID, SELFPAY ==
--- NOTE | 2021-01-24 10:23 | HP.PCM_ITS ---
History of Present Illness Date of Service: 01/24/21 Chief Complaint: Left great toe ulcer History of Wound: This 60-year-old diabetic male with comorbidities including diabetes and history of foot ulcerations. He has been seen at the wound care center previously by Dr. Arredondo for foot wounds. Patient was last seen on 12/21/2020 at which time it was noted that the left great toe ulceration had healed. Patient relates this is since reopened. He denies any specific trauma or has any specific idea why this reopened. He relates that sometimes his toe gets really red since he has noticed some blood from the ulceration site. Is currently not very red. [facility] Medical History Chronic pain syndrome COPD exacerbation CPAP (continuous positive airway pressure) dependence DDD (degenerative disc disease) Diabetes mellitus type II, uncontrolled Diabetic foot infection Former tobacco use GERD (gastroesophageal reflux disease) HTN (hypertension) Hypertension Kidney stones Obesity LANA on CPAP Osteoporosis PTSD (post-traumatic stress disorder) PVD (peripheral vascular disease) Rheumatoid arthritis Sleep apnea Sleep apnea Home Medications alprazolam [Xanax] 0.5 mg PO BID PRN PRN 09/23/15 [History Last Taken Unknown] amlodipine 10 mg PO DAILY 09/23/15 [History Last Taken 10/07/20 08:00 1] esomeprazole magnesium [Nexium] 20 mg PO DAILY 09/23/15 [History Last Taken 10/07/20 08:00 1] hydrochlorothiazide 25 mg PO DAILY 09/23/15 [History Last Taken 10/07/20 08:00] oxycodone-acetaminophen [Percocet] 1 tab PO Q6H PRN PRN 09/23/15 [History Last Taken 10/06/20 22:00 1] pregabalin [Lyrica] 150 mg PO BID 09/23/15 [History Last Taken 10/06/20 22:00] Humulin 70/30 Insulin Pen 55 u MISCELLANEOUS CONT 10/07/20 [History Last Taken Unknown] Jardiance 25 mg PO DAILY 10/07/20 [History Last Taken 10/07/20 08:00 1] Trulicity 4.5 mg SUBCUT QWEEK 10/07/20 [History Last Taken Unknown] glipizide 10 mg PO DAILY 10/07/20 [History Last Taken 10/07/20 08:00] lisinopril 20 mg PO DAILY 10/07/20 [History Last Taken 10/07/20 08:00 1] Flexall 1 ea TOPICAL Q4H PRN 10/08/20 [History Last Taken Unknown] amoxicillin-pot clavulanate [Augmentin] 1 tab PO BID #14 tab 10/10/20 [Rx Last Taken Unknown] morphine 15 mg PO BID 5 Days #10 tab 10/10/20 [Rx Last Taken Unknown] Allergy/AdvReac Type Severity Reaction Status Date / Time codeine Allergy Rash Verified 10/07/20 15:21 Family History (Updated 10/07/20 @ 14:[address] Diana eMndiola MD) Mother Cancer Renal CA Hypertension Diabetes Father Cancer History of NH Lymphoma and Colon CA. Hypertension Diabetes Surgical History (Updated 10/07/20 @ 14:[address] Diana Mendiola MD) History of arthroscopic surgery of shoulder History of exploratory laparotomy History of left shoulder replacement Hx of chest tube placement Status post arthroscopic surgery of left knee Social History (Updated 10/07/20 @ 14:[address] Diana Mendiola MD) household members: none Smoking Status: Never smoker how long ago did patient quit smoking: Quit 18 months prior, 5 cigars daily x 40 years prior to this. alcohol intake: never substance use type: does not use ROS Constitutional Constitutional: Denies chills or fever(s) Cardiovascular Cardiovascular: Denies chest pain Respiratory/Chest Respiratory/Chest: Denies cough Gastrointestinal Gastrointestinal: Denies nausea or vomiting Musculoskeletal Musculoskeletal: Denies muscle cramps or muscle weakness Integumentary Integumentary: Reports wounds Neurologic Neurologic: Reports numbness and tingling Physical Exam Const alert and no apparent distress General Appearance: cooperative and comfortable HEENT Head and Scalp: atraumatic Lymph Lymphatic: no lymphedema noted Resp normal respiratory effort Effort and Inspection: able to speak in complete sentences Extremity normal capillary refill and no calf tenderness General Extremity: edema bilateral lower extremity, no tenderness to palpation of joints or extremities and other findings Other Details: Capillary refill time less than 3 seconds noted to digits ; Negative for clubbing or cyanosis Peripheral Pulses: Yes posterior tibial pulses present bilateral diminished and dorsalis pedis pulses present bilateral diminished Skin General Skin Exam: atrophy and dry skin; Negative for ecchymosis, erythema, eschar, pallor or dermatitis Rashes: no rashes Wounds: wounds noted Wound Narrative: ulcers noted to left hallux plantar medial No malodor, erythema, purulence, probing to bone, streaking, fluctuation, crepitus, or other signs of infection. Skin is atrophic and hairless. Granular base. There is a callus. decreased left hallux IPJ/MPJ ROM Neuro Sensory Exam: extremities light-touch: decreased Motor Exam: strength 5/5 throughout and general weakness Psych Appearance: appropriate Attitude: calm Debridement Note Debridement Note Wound debrided: hallux Laterality: Left Wound Grade/Stage: beatty 1 Type of Debridement: Excisional debridement Anesthesia Used: 4% Lidocaine Solution Depth: in the subcutaneous layer Percentage of wound debrided: 100 Instrument Used: 3mm curette Tissue Removed: includes fibrous, devitalized, biofilm, callus and slough tissue Severity: Fat Layer Exposed Amount of bleeding with debridement: Mild Bleeding Controlled with: Pressure Patient tolerated procedure: Patient tolerated procedure well Post-Debridement Measurements and Additional Note: Wound Measurements and Assessment WC - Nurse 1 - General Ulcer Measurement Start: 01/24/21 10:32 Freq: Status: Active Protocol: Activity Type Activity Date Activity User E-Sign Co-Sign Detail Recorded Client Recorded Date Recorded By Document 01/24/21 10:32 JESSICA [id number] 01/24/21 10:38 DL 01/24/21 10:32 Wound Center Nurse 1 [Ulcer Assessment] #4 L Hallux -Current Size (cm) - Length 0.2 -Current Size (cm) - Width 0.2 -Current Size (cm) - Depth 0.2 -Total Square Cm 0.04 -Photo Taken Yes -Classification - Thickness Full Thickness without Exposed Support Structure -Exudate Amt Small -Exudate Type Serosanguineous -Wound Margin Thickened -Granulation Amt Small (1-33%) -Granulation Quality Pale,[place] -Necrosis Amt Small (1-33%) -Necrotic Tissue Type Adherent Slough -Structure Exposed N/A -Texture (Brittany-wound Skin Appearance) Localized Edema ,Scarring -Moisture (Brittany-wound Skin Appearance Maceration ) -Color (Brittany-wound Skin Appearance) No Abnormality -Temperature (Brittany-wound Skin No Abnormality Appearance) (Pt Warm) -Tenderness on Palpation (Brittany-wound No Skin Appearance) -Ulcer Cleansing Rinsed/ Irrigated with Saline -Foul Odor after Cleansing No -Anesthetic Used 5% Lidocaine Gel WC - Nurse 2 - General Ulcer CM Notes Start: 01/24/21 10:32 Freq: Status: Active Protocol: Activity Type Activity Date Activity User E-Sign Co-Sign Detail Recorded Client Recorded Date Recorded By Document 01/24/21 10:57 MICHAEL [id number] 01/24/21 11:01 MICHAEL 01/24/21 10:57 Wound Center Nurse 2 [Procedure/Treatment] -Time 10:58 -Correct Patient Yes -Correct Side, Site, Position Yes -Correct Procedure Yes -Procedure Performed Yes -Type of Procedure Debridement -Clinical Debridement Subcutaneous -Tissue Removed Subcutaneous -Post Debridement (cm) - Length 0.9 -Post Debridement (cm) - Width 1.2 -Post Debridement (cm) - Depth 1 -Total Square (Post) (cm) 1.08 -Area of Debridement (cm) - Length 0.9 -Area of Debridement (cm) - Width 1.2 -Total Square (Area) (cm) 1.08 -Tunneling No -Undermining/Tunneling No -Circular Undermining No -Wound/Ulcer Outcome Not Healed -Ulcer Cleansing Rinsed/ Irrigated with Saline -Foul Odor after Cleansing No -Bioengineered Tissue No -Bleeding Controlled with Pressure -Offloading No -Treatment Response Procedure Tolerated Well -Debridement - Subq, 1st 20sq cm Yes [See Physician Procedure note for Specifics] Pain Scale: 0-10 Numeric [Pain] -Is Patient Pain Free? Yes Assessment/Plan Assessment/Plan (1) Ulcer of left foot with fat layer exposed: CODE(S): L97.522 - Non-pressure chronic ulcer of other part of left foot with fat layer exposed (2) Type 2 diabetes mellitus with diabetic polyneuropathy: CODE(S): E11.42 - Type 2 diabetes mellitus with diabetic polyneuropathy QUALIFIERS: Diabetes mellitus correction insulin use: with long term acute care registered nurse use Qualified Code(s): E11.42 - Type 2 diabetes mellitus with diabetic polyneuropathy; Z79.4 - long term acute care registered nurse (current) use of insulin (3) Other hereditary and idiopathic neuropathies: CODE(S): G60.8 - Other hereditary and idiopathic neuropathies PLAN: Patient seen and examined. Patient noted to have new wound to left hallux. Patient is noted to have had ulcerations in the past and was treated by Dr. Arredondo. He was last healed on 12/21/2020. He has since had rebreakdown of ulceration sites. He reports blood and some redness to his toe that comes and goes. He relates that he is not been able to keep the pressure off this area. After verbal consent was obtained ulceration was sharply debrided without incident and well tolerated due to patient's neuropathy. Discussed importance of smoking cessation, blood sugar control, weight management, offloading, proper nutrition, infection control and hygiene to optimize healing potential. Patient reports that he has a appointment with his cardiac rehab nurse coming up in February. He relates that he has gotten his A1c down from 13% to 9% and will get new labs in February. He relates his blood sugar was in the 130s this morning. To continue daily dressing changes after washing with soap and water to apply Verenice and dry sterile dressing. To be changed daily. Dressing supplies were ordered. Discussed offloading with a surgical shoe. Patient relates that he is to [place] to wear this type of shoe. He presents today and loafer type shoes. Discussed doing offloading pad instead. Dispensed offloading aperture pad to the patient. Discussed going to the office in order to obtain more. Discussed proper placement usage. I recommend Denis nutritional supplementation to optimize healing. He has taken this in the past. Patient relates that he is going to [employer] some more today and will be taking it once a day. Patient noted to taking metanx from Dr. Arredondo for neuropathy pain. He has been doing this for about a month. He relates that he has noted improvement in his neuropathy pain since starting and metanx. He is also noted the patient is taking Lyrica. All questions were answered. Patient to follow-up in 1 week. This note was generated with [employer] dictation software. It may contain incorrect words, spelling, and punctuation that were not noted in checking the note before signing. The problems addressed require a low medical decision making level which includes two or more minor problems, a stable chronic illness, or an acute uncomplicated illness or injury.
[2021-01-24 10:32] VITALS: BP 156/68; PULSE 78; RESP 20; TEMP 36.6
--- NOTE | 2021-01-31 09:22 | PN.PCM_ITS ---
History of Present Illness Date of Service: 01/31/21 Chief Complaint: Left great toe ulcer History of Wound: This 60-year-old diabetic male with comorbidities including diabetes and history of foot ulcerations. He has been seen at the wound care center previously by Dr. Arredondo for foot wounds. Patient was last seen on 12/21/2020 at which time it was noted that the left great toe ulceration had healed. Patient relates this is since reopened. He denies any specific trauma or has any specific idea why this reopened. He relates that sometimes his toe gets really red since he has noticed some blood from the ulceration site. Is currently not very red. Progress of Wound: Improved Subjective Subjective Patient seen and examined resting comfortably. Patient denies any new pedal complaints. Patient denies any nausea, fever, chills, chest pain, shortness of breath, cough, streaking, purulence, vomiting. Objective Data Objective Data Vital Signs: Vital Signs Temp Pulse Resp BP 97.8 F 78 20 H 156/68 H 01/24/21 10:32 01/24/21 10:32 01/24/21 10:32 01/24/21 10:32 Physical Exam Const alert and no apparent distress General Appearance: cooperative and comfortable Lymph Lymphatic: no lymphedema noted Resp normal respiratory effort Effort and Inspection: able to speak in complete sentences Extremity normal capillary refill and no calf tenderness General Extremity: edema bilateral lower extremity, no tenderness to palpation of joints or extremities and other findings Other Details: Capillary refill time less than 3 seconds noted to digits ; Negative for clubbing or cyanosis Skin General Skin Exam: atrophy and dry skin; Negative for ecchymosis, erythema, eschar, pallor or dermatitis Rashes: no rashes Wounds: wounds noted Wound Narrative: ulcers noted to left hallux plantar medial No malodor, erythema, purulence, probing to bone, streaking, fluctuation, crepitus, or other signs of infection. Skin is atrophic and hairless. Granular base. There is a callus. decreased left hallux IPJ/MPJ ROM Neuro Sensory Exam: extremities light-touch: decreased Motor Exam: strength 5/5 throughout and general weakness Psych Appearance: appropriate Attitude: calm Debridement Note Debridement Note Wound debrided: Hallux Laterality: Left Wound Grade/Stage: Parra 1 Type of Debridement: Excisional debridement Anesthesia Used: 4% Lidocaine Solution Depth: in the subcutaneous layer Percentage of wound debrided: 100 Instrument Used: 3mm curette Tissue Removed: includes fibrous, devitalized, biofilm, callus and slough tissue Severity: Fat Layer Exposed Amount of bleeding with debridement: Mild Bleeding Controlled with: Pressure Patient tolerated procedure: Patient tolerated procedure well Assessment/Plan Assessment/Plan (1) Ulcer of left foot with fat layer exposed: CODE(S): L97.522 - Non-pressure chronic ulcer of other part of left foot with fat layer exposed (2) Type 2 diabetes mellitus with diabetic polyneuropathy: CODE(S): E11.42 - Type 2 diabetes mellitus with diabetic polyneuropathy QUALIFIERS: 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 Patient noted to have new wound to left hallux. Patient is noted to have had ulcerations in the past and was treated by Dr. Arredondo. He was last healed on 12/21/2020. He has since had rebreakdown of ulceration sites. He reports blood and some redness to his toe that comes and goes. He relates that he is not been able to keep the pressure off this area. After verbal consent was obtained ulceration was sharply debrided without incident and well tolerated due to patient's neuropathy. Discussed importance of smoking cessation, blood sugar control, weight management, offloading, proper nutrition, infection control and hygiene to optimize healing potential. Patient reports that he has a appointment with his communications technologist coming up in February. He relates that he has gotten his A1c down from 13% to 9% and will get new labs in February. He relates his blood sugar was in the 130s this morning. To continue daily dressing changes after washing with soap and water to apply Verenice and dry sterile dressing. To be changed daily. Dressing supplies were ordered. Discussed offloading with a surgical shoe. Patient relates that he is to [facility] to wear this type of shoe. He presents today and loafer type shoes. Discussed doing offloading pad instead. Dispensed offloading aperture pad to the patient. Discussed going to the office in order to obtain more. Discussed proper placement usage. I recommend Denis nutritional supplementation to optimize healing. He has taken this in the past. Patient relates that he is going to [place] some more today and will be taking it once a day. Patient noted to taking metanx from Dr. Arredondo for neuropathy pain. He has been doing this for about a month. He relates that he has noted improvement in his neuropathy pain since starting and metanx. He is also noted the patient is taking Lyrica. All questions were answered. Patient to follow-up in 2 weeks. This note was generated with [employer] dictation software. It may contain incorrect words, spelling, and punctuation that were not noted in checking the note before signing. The problems addressed require a low medical decision making level which includes two or more minor problems, a stable chronic illness, or an acute uncomplicated illness or injury.
== END 2021-02-02 23:59 ==
LOC: WC 10:30
PROVIDERS: Visit Provider Podiatrist Foot & Ankle Surgery
DX: E11.621 Type 2 diabetes mellitus with foot ulcer (principal); L97.522 Non-pressure chronic ulcer of other part of left foot with fat layer exposed; J44.9 Chronic obstructive pulmonary disease, unspecified; K21.9 Gastro-esophageal reflux disease without esophagitis; I10 Essential (primary) hypertension; E11.51 Type 2 diabetes mellitus with diabetic peripheral angiopathy without gangrene; M06.9 Rheumatoid arthritis, unspecified; G47.33 Obstructive sleep apnea (adult) (pediatric); E66.9 Obesity, unspecified; F43.10 Post-traumatic stress disorder, unspecified; G89.4 Chronic pain syndrome; Z87.891 Personal history of nicotine dependence; Z79.899 Other long term (current) drug therapy; Z79.4 Long term (current) use of insulin
CPT/HCPCS: 11042; 99212; G0463

== ENCOUNTER → 2021-03-01 14:10 | Outpatient (CLI) | payer MEDICARE, MEDICAID, SELFPAY | PROVIDERS: Referring Provider Physician Assistant; Visit Provider Physician Assistant | DX: Z11.52 Encounter for screening for COVID-19 (principal) | CPT/HCPCS: 87635; U0005; U0003 ==

== ENCOUNTER 2021-08-30 12:46 | Outpatient (RCR) | payer MEDICARE, MEDICAID, SELFPAY ==
[2021-02-03 00:39] VITALS: BP 156/68; PULSE 78; RESP 20; TEMP 36.6
[2021-08-30 13:08] VITALS: BP 147/85; PULSE 74; RESP 16; TEMP 36.1
--- NOTE | 2021-08-30 13:38 | HP.PCM_ITS ---
History of Present Illness Date of Service: 08/30/21 Chief Complaint: Left great toe ulcer History of Wound: This 60-year-old diabetic male with comorbidities including diabetes and history of foot ulcerations. His left hallux wound has been open again for several months. He denies any specific trauma or has any specific idea why this reopened. He denies redness or odor. He has difficulty offloading this site. He had prior success with epifix application to other ulcers and would like to consider this for the left plantar toe now. It is noted he also current currently has a right Achilles rupture and this alters his gait pattern. He has not been wearing his wedge right walking boot as advised. He reports he usually uses a walker since his visit last week but did not present with him today. Progress of Wound: stable [facility] Medical History Chronic pain syndrome COPD exacerbation CPAP (continuous positive airway pressure) dependence DDD (degenerative disc disease) Diabetes mellitus type II, uncontrolled Diabetic foot infection Former tobacco use GERD (gastroesophageal reflux disease) HTN (hypertension) Hypertension Kidney stones Obesity ALNA on CPAP Osteoporosis PTSD (post-traumatic stress disorder) PVD (peripheral vascular disease) Rheumatoid arthritis Sleep apnea Sleep apnea Home Medications alprazolam [Xanax] 0.5 mg PO BID PRN PRN 09/23/15 [History Last Taken Unknown] amlodipine 10 mg PO DAILY 09/23/15 [History Last Taken 10/07/20 08:00 1] esomeprazole magnesium [Nexium] 20 mg PO DAILY 09/23/15 [History Last Taken 10/07/20 08:00 1] hydrochlorothiazide 25 mg PO DAILY 09/23/15 [History Last Taken 10/07/20 08:00] oxycodone-acetaminophen [Percocet] 1 tab PO Q6H PRN PRN 09/23/15 [History Last Taken 10/06/20 22:00 1] pregabalin [Lyrica] 150 mg PO BID 09/23/15 [History Last Taken 10/06/20 22:00] Humulin 70/30 Insulin Pen 55 u MISCELLANEOUS CONT 10/07/20 [History Last Taken Unknown] Jardiance 25 mg PO DAILY 10/07/20 [History Last Taken 10/07/20 08:00 1] Trulicity 4.5 mg SUBCUT QWEEK 10/07/20 [History Last Taken Unknown] glipizide 10 mg PO DAILY 10/07/20 [History Last Taken 10/07/20 08:00] lisinopril 20 mg PO DAILY 10/07/20 [History Last Taken 10/07/20 08:00 1] Flexall 1 ea TOPICAL Q4H PRN 10/08/20 [History Last Taken Unknown] amoxicillin-pot clavulanate [Augmentin] 1 tab PO BID #14 tab 10/10/20 [Rx Last Taken Unknown] morphine 15 mg PO BID 5 Days #10 tab 10/10/20 [Rx Last Taken Unknown] Allergy/AdvReac Type Severity Reaction Status Date / Time codeine Allergy Rash Verified 10/07/20 15:21 Family History (Updated 10/07/20 @ 14:[address] Diana Mendiola MD) Mother Cancer Renal CA Hypertension Diabetes Father Cancer History of NH Lymphoma and Colon CA. Hypertension Diabetes Surgical History (Updated 10/07/20 @ 14:[address] Diana Mendiola MD) History of arthroscopic surgery of shoulder History of exploratory laparotomy History of left shoulder replacement Hx of chest tube placement Status post arthroscopic surgery of left knee Social History (Updated 10/07/20 @ 14:[address] Diana Mendiola MD) household members: none Smoking Status: Never smoker how long ago did patient quit smoking: Quit 18 months prior, 5 cigars daily x 40 years prior to this. alcohol intake: never substance use type: does not use Vital Signs Vital Signs Vital Signs: 08/30/21 13:08 Temperature 97 F L Temperature Source Temporal Pulse Rate 74 Respiratory Rate 16 Blood Pressure 147/85 H Blood Pressure Mean 105 Blood Pressure Source Monitor Blood Pressure Position Sitting Blood Pressure Location Left Forearm Oxygen Delivery Method Room Air Physical Exam Const alert and no apparent distress General Appearance: cooperative and comfortable HEENT Head and Scalp: atraumatic Lymph Lymphatic: no lymphedema noted Resp normal respiratory effort Effort and Inspection: able to speak in complete sentences Extremity normal capillary refill and no calf tenderness General Extremity: edema bilateral lower extremity, no tenderness to palpation of joints or extremities and other findings Other Details: Capillary refill time less than 3 seconds noted to digits ; Negative for clubbing or cyanosis Peripheral Pulses: Yes posterior tibial pulses present bilateral diminished and dorsalis pedis pulses present bilateral diminished Skin General Skin Exam: atrophy and dry skin; Negative for ecchymosis, erythema, eschar, pallor or dermatitis Rashes: no rashes Wounds: wounds noted Wound Narrative: ulcers noted to left hallux plantar medial No malodor, erythema, purulence, probing to bone, streaking, fluctuation, crepitus, or other signs of infection. Skin is atrophic and hairless. Granular base ulcer plantar left hallux without deep tissue exposure or undermining or maceration. There is a callus. decreased left hallux IPJ/MPJ ROM Neuro Sensory Exam: extremities light-touch: decreased Motor Exam: strength 5/5 throughout and general weakness Psych Appearance: appropriate Attitude: calm Debridement Note Debridement Note Wound debrided: Plantar left hallux Wound Grade/Stage: 1 Type of Debridement: Excisional debridement Anesthesia Used: 4% Lidocaine Solution Depth: in the subcutaneous layer Percentage of wound debrided: 100 Instrument Used: #15 blade Tissue Removed: fibrous, devitalized subcutaneous, biofilm, slough Severity: Fat Layer Exposed Amount of bleeding with debridement: Mild Bleeding Controlled with: Pressure Patient tolerated procedure: Patient tolerated procedure well Post-Debridement Measurements and Additional Note: Post-Debridement Measurements/Treatment WC - Nurse 1 - General Ulcer Assessment Start: 08/30/21 13:08 Freq: Status: Active Protocol: [email or web address] Activity Type Activity Date Activity User E-Sign Co-Sign Detail Recorded Client Recorded Date Recorded By Document 08/30/21 13:08 [facility] [id number] 08/30/21 13:12 [facility] 08/30/21 13:08 - Today's Visit Information Type of service Follow-up Visit (Physician/[employer]DER ) Arrival Mode Wheelchair Transfer Assistance Other Transfer Assist (Other) stand by Patient Identification Verified (Name & Yes ) Patient Requires Transmission-Based No Precautions Vital Signs Temperature (97.8 F-99.1 F) 97 F L Temperature Source Temporal Pulse Rate (60-100) 74 Pulse Location Monitor Respiratory Rate (12-18) 16 Respiratory rate source Observation Oxygen Delivery Method Room Air Blood Pressure (90/60-120/80) 147/85 H Blood Pressure Mean 105 Source Monitor Position Sitting Blood Pressure Location Left Forearm History Since Last Visit- (Skip if this is Patient's initial visit) Left Footwear Slipper Right Footwear Slipper Pain Scale: 0-10 Numeric Is Patient Pain Free? Yes WC - Nurse 1 - General Ulcer Measurement Start: 08/30/21 13:08 Freq: Status: Active Protocol: Activity Type Activity Date Activity User E-Sign Co-Sign Detail Recorded Client Recorded Date Recorded By Document 08/30/21 13:08 [facility] [id number] 08/30/21 13:12 [facility] 08/30/21 13:08 Wound Center Nurse 1 #5- L HALLUX PLANTAR -Combined with other wound No -Current Size (cm) - Length 1.4 -Current Size (cm) - Width 1.6 -Current Size (cm) - Depth 0.2 -Total Square Cm 2.24 -Date of Last Picture (Recall this 08/30/21 field) -Photo Taken Yes -Epithelialization None Present -Tunneling No -Undermining/Tunneling No -Circular Undermining No -Exudate Amt Medium -Exudate Type Serosanguineous -Wound Margin Distinct, Outline Attached -Granulation Amt Large (67-100%) -Granulation Quality Pale,[place] -Slough/Fibrin Yes -Necrosis Amt Small (1-33%) -Necrotic Tissue Type Adherent Slough -Texture (Brittany-wound Skin Appearance) Assessed, Scarring -Moisture (Brittany-wound Skin Appearance) Assessed -Color (Brittany-wound Skin Appearance) Assessed -Temperature (Brittany-wound Skin No Abnormality Appearance) (Pt Warm) -Tenderness on Palpation (Brittany-wound No Skin Appearance) -Ulcer Cleansing Rinsed/ Irrigated with Saline -Foul Odor after Cleansing No -Anesthetic Used 5% Lidocaine Gel Lower Limb Edema Present Yes Left Calf (cm) 44 Left Ankle (cm) 23 - Nurse 2 - General Ulcer CM Notes Start: 08/30/21 13:08 Freq: Status: Active Protocol: Activity Type Activity Date Activity User E-Sign Co-Sign Detail Recorded Client Recorded Date Recorded By Document 08/30/21 13:20 [id number] 08/30/21 13:27 08/30/21 13:20 Wound Center Nurse 2 #5- L HALLUX PLANTAR -Time 13:20 -Correct Patient Yes -Correct Side, Site, Position Yes -Correct Procedure Yes -Procedure Performed Yes -Type of Procedure Debridement -Clinical Debridement Subcutaneous -Tissue Removed Subcutaneous -Post Debridement (cm) - Length 1.5 -Post Debridement (cm) - Width 1.6 -Post Debridement (cm) - Depth 0.2 -Total Square (Post) (cm) 2.40 -Area of Debridement (cm) - Length 1.5 -Area of Debridement (cm) - Width 1.6 -Total Square (Area) (cm) 2.40 -Tunneling No -Undermining/Tunneling No -Circular Undermining No -Wound/Ulcer Outcome Not Healed -Ulcer Cleansing Rinsed/ Irrigated with Saline -Foul Odor after Cleansing No -Bioengineered Tissue No -Bleeding Controlled with Pressure -Treatment Response Procedure Tolerated Well -Offloading Yes -Type of Offloading Total Contact Cast (TCC) - Left ($) -Debridement - Subq, 1st 20sq cm Yes Pain Scale: 0-10 Numeric Is Patient Pain Free? Yes - Nurse 3 - General Ulcer D/C NN Start: 08/30/21 13:08 Freq: Status: Active Protocol: Activity Type Activity Date Activity User E-Sign Co-Sign Detail Recorded Client Recorded Date Recorded By Document 08/30/21 13:33 [facility] [id number] 08/30/21 13:33 [facility] 08/30/21 13:33 Wound Care Nurse 3 #5- L HALLUX PLANTAR -Ulcer Cleansing Rinsed/ Irrigated with Saline -Foul Odor after Cleansing No -Primary Dressing Applied Mepilex Border, Promogran Verenice Matter -Other Dressing DRSG PER [place] ASSISTED LIVING ADMINISTRATOR , AND TCC UNDERCAST -Mepilex Border 1 -Promogran Verenice Matter 1 Treatment Response Procedure Tolerated Well Pain Scale: 0-10 Numeric Is Patient Pain Free? Yes - Visit Discharge Discharge Condition Stable Ambulatory Status Wheelchair Transportation Private Auto Assessment/Plan Assessment/Plan (1) Type 2 diabetes mellitus with diabetic polyneuropathy: CODE(S): E11.42 - Type 2 diabetes mellitus with diabetic polyneuropathy QUALIFIERS: Diabetes mellitus half-way insulin use: with half-way use Qualified Code(s): E11.42 - Type 2 diabetes mellitus with diabetic polyneuropathy; Z79.4 - shelter (current) use of insulin (2) Chronic ulcer of left foot with fat layer exposed: CODE(S): L97.522 - Non-pressure chronic ulcer of other part of left foot with fat layer exposed (3) Acquired hallux limitus of left foot: CODE(S): M20.5X2 - Other deformities of toe(s) (acquired), left foot (4) Delayed wound healing: CODE(S): T14.8XXD - Other injury of unspecified body region, subsequent encounter (5) Difficulty in walking, not elsewhere classified: CODE(S): R26.2 - Difficulty in walking, not elsewhere classified (6) Localized edema: CODE(S): R60.0 - Localized edema (7) Achilles rupture, right: CODE(S): S86.011A - Strain of right Achilles tendon, initial encounter PLAN: I reviewed and discussed his case today. Debridement was performed today as noted in the clinical panel to all of the ulcer site. The following work up and care recommendations were made: Dressing: Verenice was applied prior to total contact cast application Wash: The ulcer was washed with soap and water Tissue growth optimization: I recommend advanced wound healing product, epi fix which is placental derived tissue. Prior authorization with insurance will be started. Is medically necessary for wound healing. This is a chronic wound and he is demonstrating delayed healing. He is at risk for continued limb loss and recurrent infections. The indications benefits anticipated application and management were reviewed in detail. Offload: Verbal consent was obtained for application of left lower extremity total contact cast. This was applied according to standard protocol in a well- padded manner in a rectus position. To keep clean, dry, and intact. He understands the indications benefits and anticipated management and application. I answered his questions. He tolerated this well. To call if the cast is too loose, too tight, signs of DVT, or if the cast gets wet. He demonstrates understanding. Vascular: He had noninvasive vascular studies performed in October 2020 without any gross abnormalities. He had bilateral triphasic waveforms and normal PVRs. His right ABIs were 1.12 and 1.25 and left was 1.16 and 1.13. Edema: The total contact cast will also aid in edema reduction. To elevate Infection: He was reassured no local signs of infection are noted. To monitor. Pain: This is currently controlled today his neuropathic status Host factors: He has diabetes and this may contribute to delays in healing. He has prior improvement hemoglobin A1c's are noted. I recommend nutritional supplementation to optimize healing including Denis. He will obtain this today. It is also noted he has a ruptured contralateral limb Achilles in which she has not been wearing the Achilles wedge boot. He was advised to do so and to use an assistive walking device such as a walker or wheelchair given that he is also now in a left total contact cast. He understands significant dysfunction of the right lower extremity is possible if this Achilles not healing and approximated manner. He also understands he is currently not a surgical candidate due to his elevation in glucose levels for right Achilles rupture repair or Mixon curative surgical arthroplasty of the left foot. Diagnostic data: I recommend updating CMP, CBC, and A1c. Lab order was given. His last A1c on file was from 10-10-2020; 8.9%. I answered all the patient's questions. To return to the wound healing center in 1 week or call sooner if the patient has any questions or concerns. The medical decision making level is moderate based on data including at least three of the following: review of prior external notes, review of a test, ordering a test, assessment requiring an independent historian. The medical decision making level is moderate. There is noted moderate risk of morbidity after considering this treatment plan and diagnostic data. Considerations were given to prescription management, decisions regarding surgical options, or social determinants of health.
== END 2021-09-02 23:59 | disposition home or self-care (01) ==
LOC: WC 12:46
PROVIDERS: PCP Internal Medicine Cardiovascular Disease; Visit Provider Podiatrist
DX: E11.621 Type 2 diabetes mellitus with foot ulcer (principal); E11.51 Type 2 diabetes mellitus with diabetic peripheral angiopathy without gangrene; L97.522 Non-pressure chronic ulcer of other part of left foot with fat layer exposed; M06.9 Rheumatoid arthritis, unspecified; J44.9 Chronic obstructive pulmonary disease, unspecified; E11.42 Type 2 diabetes mellitus with diabetic polyneuropathy; Z79.4 Long term (current) use of insulin; F43.10 Post-traumatic stress disorder, unspecified; R60.0 Localized edema; I10 Essential (primary) hypertension; G89.4 Chronic pain syndrome; R26.2 Difficulty in walking, not elsewhere classified; G47.33 Obstructive sleep apnea (adult) (pediatric); Z79.899 Other long term (current) drug therapy; K21.9 Gastro-esophageal reflux disease without esophagitis; Z87.891 Personal history of nicotine dependence; E66.9 Obesity, unspecified; M20.5X2 Other deformities of toe(s) (acquired), left foot
CPT/HCPCS: 11042; 29445; 99213; G0463

== ENCOUNTER → 2021-09-19 | Outpatient (CLI) | payer MEDICARE, MEDICAID, SELFPAY ==
[2021-09-19 13:58] LABS: Hemoglobin A1c 8.9 % (3.8-5.6)
== END | disposition home or self-care (01) ==
PROVIDERS: PCP Internal Medicine Cardiovascular Disease; Visit Provider Podiatrist
DX: E11.9 Type 2 diabetes mellitus without complications (principal)
CPT/HCPCS: 36415; 83036

== ENCOUNTER 2021-09-27 13:15 | Outpatient (RCR) | payer MEDICARE, MEDICAID, SELFPAY ==
[2021-09-03 00:04] VITALS: BP 147/85; PULSE 74; RESP 16; TEMP 36.1
[2021-09-06 13:48] VITALS: BP 151/84; PULSE 77; RESP 16; TEMP 36.1
--- NOTE | 2021-09-06 15:27 | PN.PCM_ITS ---
History of Present Illness Date of Service: 09/06/21 Chief Complaint: Left great toe ulcer History of Wound: This 60-year-old diabetic male with comorbidities including diabetes and history of foot ulcerations. His left hallux wound has been open again for several months. He denies any specific trauma or has any specific idea why this reopened. He has difficulty offloading this site. He is amenable to have epi fix, advanced wound healing product, applied today if it is approved by the insurance. He is at risk for limb loss. It is noted he also currently has a right Achilles rupture and this alters his gait pattern. He has not been wearing his wedge right walking boot as advised at times when he is at home however uses a cane and a knee roller when he leaves the house. He does still walk on a regular basis. He reports he only probably walks on it about 3 hours last week as opposed to 12 hours a day. He is amendable to have another left lower extremity total contact cast on to take pressure off of his ulcers. He actually got it wet this morning and had some friends carted off prior to follow-up visit. He denies redness or odor. He denies fever, chill, nausea, vomiting. Progress of Wound: Improving Objective Data Objective Data Vital Signs: Vital Signs Temp Pulse Resp BP 96.9 F L 77 16 151/84 H 09/06/21 13:48 09/06/21 13:48 09/06/21 13:48 09/06/21 13:48 Oxygen Delivery Method Room Air Physical Exam Const alert and no apparent distress General Appearance: cooperative and comfortable Extremity normal capillary refill and no calf tenderness General Extremity: edema bilateral lower extremity, no tenderness to palpation of joints or extremities and other findings Other Details: Capillary refill time less than 3 seconds noted to digits ; Negative for clubbing or cyanosis Peripheral Pulses: Yes posterior tibial pulses present bilateral diminished and dorsalis pedis pulses present bilateral diminished Skin General Skin Exam: atrophy and dry skin; Negative for ecchymosis, erythema, eschar, pallor or dermatitis Rashes: no rashes Wounds: wounds noted Wound Narrative: ulcers noted to left hallux plantar medial No malodor, erythema, purulence, probing to bone, streaking, fluctuation, crepitus, or other signs of infection. Skin is atrophic and hairless. Granular base ulcer plantar left hallux without deep tissue exposure or undermining or maceration. There is a callus. decreased left hallux IPJ/MPJ ROM Neuro Sensory Exam: extremities light-touch: decreased Motor Exam: strength 5/5 throughout and general weakness Psych Appearance: appropriate Attitude: calm Debridement Note Debridement Note Wound debrided: left plantar hallux Wound Grade/Stage: 1 Type of Debridement: Excisional debridement Anesthesia Used: 4% Lidocaine Solution Depth: in the subcutaneous layer Percentage of wound debrided: 100 Instrument Used: #15 blade Tissue Removed: fibrous, devitalized subcutaneous, biofilm, slough Severity: Fat Layer Exposed Amount of bleeding with debridement: Mild Bleeding Controlled with: Pressure Patient tolerated procedure: Patient tolerated procedure well Post-Debridement Measurements and Additional Note: Post-Debridement Measurements/Treatment - Nurse 1 - General Ulcer Assessment Start: 09/06/21 13:48 Freq: Status: Active Protocol: ARIELLE Activity Type Activity Date Activity User E-Sign Co-Sign Detail Recorded Client Recorded Date Recorded By Document 09/06/21 13:48 [facility] [id number] 09/06/21 13:57 [facility] 09/06/21 13:48 - Today's Visit Information Type of service Follow-up Visit (Physician/MANAGER CREATIVE ) Arrival Mode Ambulatory,Cane ,Wheelchair Transfer Assistance Other Transfer Assist (Other) STAND BY Patient Identification Verified (Name & Yes ) Patient Requires Transmission-Based No Precautions Vital Signs Temperature (97.8 F-99.1 F) 96.9 F L Temperature Source Temporal Pulse Rate (60-100) 77 Pulse Location Monitor Respiratory Rate (12-18) 16 Respiratory rate source Observation Oxygen Delivery Method Room Air Blood Pressure (90/60-120/80) 151/84 H Blood Pressure Mean (mm Hg) 106 Source Monitor Position Sitting Blood Pressure Location Left Arm History Since Last Visit- (Skip if this is Patient's initial visit) Have you changed medications since your No last visit? Any new allergies or adverse reactions No Had a fall/change in ADL's that may No increase risk of falls Have you been in the hospital since your No last visit? Has dressing in place as prescribed No Has compression in place as prescribed N/A Has offloadiing in place as prescribed No Experienced any changes in pain level or No management Left Footwear Slipper Right Footwear Slipper Other Footwear PT CUT OFF TCC PRIOR TO COMING , SAID HE GOT IT WET Pain Scale: 0-10 Numeric Is Patient Pain Free? Yes - Nurse 1 - General Ulcer Measurement Start: 09/06/21 13:48 Freq: Status: Active Protocol: Activity Type Activity Date Activity User E-Sign Co-Sign Detail Recorded Client Recorded Date Recorded By Document 09/06/21 13:48 [facility] [id number] 09/06/21 13:57 [facility] 09/06/21 13:48 Wound Center Nurse 1 #5- L HALLUX PLANTAR -Combined with other wound No -Current Size (cm) - Length 1.2 -Current Size (cm) - Width 1.3 -Current Size (cm) - Depth 0.1 -Total Square Cm 1.56 -Photo Taken No -Epithelialization Small 1-33% -Tunneling No -Undermining/Tunneling No -Circular Undermining No -Exudate Amt Medium -Exudate Type Serosanguineous -Wound Margin Distinct, Outline Attached -Granulation Amt Large (67-100%) -Granulation Quality Post -Slough/Fibrin Yes -Necrosis Amt Small (1-33%) -Necrotic Tissue Type Adherent Slough -Texture (Brittany-wound Skin Appearance) Callus -Moisture (Brittany-wound Skin Appearance) Maceration -Color (Brittany-wound Skin Appearance) Assessed,Palor -Temperature (Brittany-wound Skin No Abnormality Appearance) (Pt Warm) -Tenderness on Palpation (Brittany-wound No Skin Appearance) -Ulcer Cleansing Rinsed/ Irrigated with Saline -Foul Odor after Cleansing No -Anesthetic Used 5% Lidocaine Gel - Nurse 2 - General Ulcer CM Notes Start: 09/06/21 13:48 Freq: Status: Active Protocol: Activity Type Activity Date Activity User E-Sign Co-Sign Detail Recorded Client Recorded Date Recorded By Document 09/06/21 14:06 [id number] 09/06/21 14:12 09/06/21 14:06 Wound Center Nurse 2 -Time 14:06 -Correct Patient Yes -Correct Side, Site, Position Yes -Correct Procedure Yes -Procedure Performed Yes -Type of Procedure Debridement -Clinical Debridement Subcutaneous -Tissue Removed Subcutaneous -Post Debridement (cm) - Length 1.3 -Post Debridement (cm) - Width 1.3 -Post Debridement (cm) - Depth 0.2 -Total Square (Post) (cm) 1.69 -Area of Debridement (cm) - Length 1.3 -Area of Debridement (cm) - Width 1.3 -Total Square (Area) (cm) 1.69 -Tunneling No -Undermining/Tunneling No -Circular Undermining No -Wound/Ulcer Outcome Not Healed -Ulcer Cleansing Rinsed/ Irrigated with Saline -Foul Odor after Cleansing No -Bioengineered Tissue Yes -Type of Bioengineered Tissue Epifix 18mm Disc -Expiration Date 06/06/26 -Product Lot Number [id number] -Percent Used 100 -Lot number of Saline Used [id number] -Bleeding Controlled with Pressure -Treatment Response Procedure Tolerated Well -Offloading Yes -Type of Offloading Total Contact Cast (TCC) - Left ($) -Debridement - Subq, 1st 20sq cm No -Apply Skin Sub - 1st 25 sq cm - Feet 1 -Epifix 18mm Disc 3 Pain Scale: 0-10 Numeric Is Patient Pain Free? Yes - Nurse 3 - General Ulcer D/C NN Start: 09/06/21 13:48 Freq: Status: Active Protocol: Activity Type Activity Date Activity User E-Sign Co-Sign Detail Recorded Client Recorded Date Recorded By Document 09/06/21 14:25 [facility] [id number] 09/06/21 14:26 [facility] 09/06/21 14:25 Wound Care Nurse 3 #5- L HALLUX PLANTAR -Primary Dressing Applied Mepilex Border -Other Dressing EPIFIX -Other Covering TCC UNDERCAST -Mepilex Border 1 Treatment Response Procedure Tolerated Well Pain Scale: 0-10 Numeric Is Patient Pain Free? Yes - Visit Discharge Discharge Condition Stable Ambulatory Status Wheelchair Transportation Private Auto Assessment/Plan Assessment/Plan (1) Type 2 diabetes mellitus with diabetic polyneuropathy: CODE(S): E11.42 - Type 2 diabetes mellitus with diabetic polyneuropathy QUALIFIERS: Diabetes mellitus cost estimator insulin use: with jail use Qualified Code(s): E11.42 - Type 2 diabetes mellitus with diabetic polyneuropathy; Z79.4 - bottler (current) use of insulin (2) Chronic ulcer of left foot with fat layer exposed: CODE(S): L97.522 - Non-pressure chronic ulcer of other part of left foot with fat layer exposed (3) Acquired hallux limitus of left foot: CODE(S): M20.5X2 - Other deformities of toe(s) (acquired), left foot (4) Delayed wound healing: CODE(S): T14.8XXD - Other injury of unspecified body region, subsequent encounter (5) Difficulty in walking, not elsewhere classified: CODE(S): R26.2 - Difficulty in walking, not elsewhere classified (6) Localized edema: CODE(S): R60.0 - Localized edema (7) Achilles rupture, right: CODE(S): S86.011A - Strain of right Achilles tendon, initial encounter PLAN: I reviewed and discussed his case today. Debridement was performed today as noted in the clinical panel to all of the ulcer site. The following work up and care recommendations were made: Dressing: dressing was applied prior to total contact cast application Wash: The ulcer was washed with soap and water Tissue growth optimization: I recommend advanced wound healing product, epi fix which is placental derived tissue. Prior authorization with insurance will be started. Is medically necessary for wound healing. This is a chronic wound and he is demonstrating delayed healing. He is at risk for continued limb loss and recurrent infections. The indications benefits anticipated application and management were reviewed in detail. This was applied (epi fix advanced wound healing product) according to standard protocol. The epi fix was secured in place with a wound veil and Steri-Strips. He tolerated this well. He was advised to keep this clean, dry, and intact along with his total contact cast until follow-up next week. Offload: Verbal consent was obtained for application of left lower extremity total contact cast. This was applied according to standard protocol in a well- padded manner in a rectus position. To keep clean, dry, and intact. He understands the indications benefits and anticipated management and application. I answered his questions. He tolerated this well. To call if the cast is too loose, too tight, signs of DVT, or if the cast gets wet. He demonstrates understanding. Vascular: He had noninvasive vascular studies performed in October 2020 without any gross abnormalities. He had bilateral triphasic waveforms and normal PVRs. His right ABIs were 1.12 and 1.25 and left was 1.16 and 1.13. Edema: The total contact cast will also aid in edema reduction. To elevate Infection: He was reassured no local signs of infection are noted. To monitor. Pain: This is currently controlled today his neuropathic status Host factors: He has diabetes and this may contribute to delays in healing. He has prior improvement hemoglobin A1c's are noted. I recommend nutritional supplementation to optimize healing including Denis. He will obtain this today. It is also noted he has a ruptured contralateral limb Achilles in which she has not been wearing the Achilles wedge boot. He was advised to do so and to use an assistive walking device such as a walker or wheelchair given that he is also now in a left total contact cast. He understands significant dysfunction of the right lower extremity is possible if this Achilles not healing and approximated manner. He also understands he is currently not a surgical candidate due to his elevation in glucose levels for right Achilles rupture repair or Mixon curative surgical arthroplasty of the left foot. Diagnostic data: I recommend updating CMP, CBC, and A1c. Lab order was given. His last A1c on file was from 10-10-2020; 8.9%. He states he will get this done today or tomorrow. I answered all the patient's questions. To return to the wound healing center in 1 week or call sooner if the patient has any questions or concerns. Note: [employer] speech recognition marketing sales supervisor software was used to create portions of this document. Sound-alike and misspelled words, as well as other marketing sales supervisor errors may be contained in the documentation.
[2021-09-13 13:58] VITALS: BP 133/70; PULSE 88; RESP 22; TEMP 36.3
--- NOTE | 2021-09-13 15:15 | PN.PCM_ITS ---
History of Present Illness Date of Service: 09/13/21 Chief Complaint: Left great toe ulcer History of Wound: This 60-year-old diabetic male with comorbidities including diabetes and history of foot ulcerations. His left hallux wound has been open again for several months. He denies any specific trauma or has any specific idea why this reopened. He has difficulty offloading this site. He is amenable to have epi fix, advanced wound healing product, applied today if it is approved by the insurance. He is at risk for limb loss. It is noted he also currently has a right Achilles rupture and this alters his gait pattern. He has not been wearing his wedge right walking boot as advised at times when he is at home however uses a cane and a knee roller when he leaves the house. He does still walk on a regular basis. He reports he only probably walks on it about 3 hours last week as opposed to 12 hours a day. He is amendable to have another left lower extremity total contact cast on to take pressure off of his ulcers. He denies redness or odor. He denies fever, chill, nausea, vomiting. Progress of Wound: Improving Objective Data Objective Data Vital Signs: Vital Signs Temp Pulse Resp BP 97.4 F L 88 22 H 133/70 H 09/13/21 13:58 09/13/21 13:58 09/13/21 13:58 09/13/21 13:58 Oxygen Delivery Method Room Air Physical Exam Const alert and no apparent distress General Appearance: cooperative and comfortable Extremity normal capillary refill and no calf tenderness General Extremity: edema bilateral lower extremity, no tenderness to palpation of joints or extremities and other findings Other Details: Capillary refill time less than 3 seconds noted to digits ; Negative for clubbing or cyanosis Peripheral Pulses: Yes posterior tibial pulses present bilateral diminished and dorsalis pedis pulses present bilateral diminished Skin General Skin Exam: atrophy and dry skin; Negative for ecchymosis, erythema, eschar, pallor or dermatitis Rashes: no rashes Wounds: wounds noted Wound Narrative: ulcers noted to left hallux plantar medial No malodor, erythema, purulence, probing to bone, streaking, fluctuation, crepitus, or other signs of infection. Skin is atrophic and hairless. Granular base ulcer plantar left hallux without deep tissue exposure or undermining or maceration. There is a callus. decreased left hallux IPJ/MPJ ROM Neuro Sensory Exam: extremities light-touch: decreased Motor Exam: strength 5/5 throughout and general weakness Psych Appearance: appropriate Attitude: calm Debridement Note Debridement Note Wound debrided: left hallux Wound Grade/Stage: 1 Type of Debridement: Excisional debridement Anesthesia Used: 4% Lidocaine Solution Depth: in the subcutaneous layer Percentage of wound debrided: 100 Instrument Used: #15 blade Tissue Removed: fibrous, devitalized subcutaneous, biofilm, slough Severity: Fat Layer Exposed Amount of bleeding with debridement: Mild Bleeding Controlled with: Pressure Patient tolerated procedure: Patient tolerated procedure well Post-Debridement Measurements and Additional Note: Post-Debridement Measurements/Treatment - Nurse 1 - General Ulcer Assessment Start: 09/06/21 13:48 Freq: Status: Active Protocol: ARIELLE Activity Type Activity Date Activity User E-Sign Co-Sign Detail Recorded Client Recorded Date Recorded By Document 09/06/21 13:48 [facility] [id number] 09/06/21 13:57 BM Document 09/13/21 13:58 DL [id number] 09/13/21 14:06 DL 09/06/21 09/13/21 13:48 13:58 - Today's Visit Information Type of service Follow-up Visit Follow-up Visit (Physician/SUPERVISOR [employer]ATE [employer] (Physician/SUPERVISOR [employer] ) ) Arrival Mode Ambulatory,Cane Ambulatory ,Wheelchair Transfer Assistance Other Stretcher Transfer Assist (Other) STAND BY Patient Identification Verified (Name & Yes Yes ) Patient Requires Transmission-Based No No Precautions Vital Signs Temperature (97.8 F-99.1 F) 96.9 F L 97.4 F L Temperature Source Temporal Temporal Pulse Rate (60-100) 77 88 Pulse Location Monitor Monitor Respiratory Rate (12-18) 16 22 H Respiratory rate source Observation Observation Oxygen Delivery Method Room Air Blood Pressure (90/60-120/80) 151/84 H 133/70 H Blood Pressure Mean (mm Hg) 106 91 Source Monitor Monitor Position Sitting Blood Pressure Location Left Arm History Since Last Visit- (Skip if this is Patient's initial visit) Have you changed medications since your No No last visit? Any new allergies or adverse reactions No No Had a fall/change in ADL's that may No No increase risk of falls Signs or symptoms of abuse and/or No neglect since last visit Have you been in the hospital since your No No last visit? Has dressing in place as prescribed No Yes Has compression in place as prescribed N/A N/A Has offloadiing in place as prescribed No Yes Experienced any changes in pain level or No No management Left Footwear Slipper Total Contact Cast Right Footwear Slipper Other Footwear PT CUT OFF TCC PRIOR TO COMING , SAID HE GOT IT WET Pain Scale: 0-10 Numeric Is Patient Pain Free? Yes Yes WC - Nurse 1 - General Ulcer Measurement Start: 09/06/21 13:48 Freq: Status: Active Protocol: Activity Type Activity Date Activity User E-Sign Co-Sign Detail Recorded Client Recorded Date Recorded By Document 09/06/21 13:48 BM [id number] 09/06/21 13:57 BMF Document 09/13/21 13:58 DL [id number] 09/13/21 14:06 DL 09/06/21 09/13/21 13:48 13:58 Wound Center Nurse 1 #5- L HALLUX PLANTAR -Combined with other wound No -Current Size (cm) - Length 1.2 1.1 -Current Size (cm) - Width 1.3 1.3 -Current Size (cm) - Depth 0.1 0.1 -Total Square Cm 1.56 1.43 -Photo Taken No No -Epithelialization Small 1-33% -Tunneling No No -Undermining/Tunneling No No -Circular Undermining No No -Exudate Amt Medium Medium -Exudate Type Serosanguineous Serosanguineous -Wound Margin Distinct, Distinct, Outline Outline Attached Attached -Granulation Amt Large (67-100%) Large (67-100%) -Granulation Quality Lugoff Lugoff,Red -Slough/Fibrin Yes Yes -Necrosis Amt Small (1-33%) Medium (34-66%) -Necrotic Tissue Type Adherent Slough Adherent Slough -Structure Exposed N/A -Texture (Brittany-wound Skin Appearance) Callus No Abnormality, Assessed -Moisture (Brittany-wound Skin Appearance) Maceration Assessed, Maceration -Color (Brittany-wound Skin Appearance) Assessed,Palor No Abnormality, Assessed -Temperature (Brittany-wound Skin No Abnormality No Abnormality Appearance) (Pt Warm) (Pt Warm) -Tenderness on Palpation (Brittany-wound No No Skin Appearance) -Ulcer Cleansing Rinsed/ Soap and Water Irrigated with Saline -Foul Odor after Cleansing No No -Anesthetic Used 5% Lidocaine 5% Lidocaine Gel Gel WC - Nurse 2 - General Ulcer CM Notes Start: 09/06/21 13:48 Freq: Status: Active Protocol: Activity Type Activity Date Activity User E-Sign Co-Sign Detail Recorded Client Recorded Date Recorded By Document 09/06/21 14:06 [id number] 09/06/21 14:12 Document 09/13/21 14:19 [id number] 09/13/21 14:21 09/06/21 09/13/21 14:06 14:19 Wound Center Nurse 2 #5- L HALLUX PLANTAR -Time 14:06 14:19 -Correct Patient Yes Yes -Correct Side, Site, Position Yes Yes -Correct Procedure Yes Yes -Procedure Performed Yes Yes -Type of Procedure Debridement Debridement -Clinical Debridement Subcutaneous Subcutaneous -Tissue Removed Subcutaneous Subcutaneous -Post Debridement (cm) - Length 1.3 1.2 -Post Debridement (cm) - Width 1.3 1.3 -Post Debridement (cm) - Depth 0.2 0.1 -Total Square (Post) (cm) 1.69 1.56 -Area of Debridement (cm) - Length 1.3 1.2 -Area of Debridement (cm) - Width 1.3 1.3 -Total Square (Area) (cm) 1.69 1.56 -Tunneling No No -Undermining/Tunneling No No -Circular Undermining No No -Wound/Ulcer Outcome Not Healed Not Healed -Ulcer Cleansing Rinsed/ Rinsed/ Irrigated with Irrigated with Saline Saline -Foul Odor after Cleansing No No -Bioengineered Tissue Yes Yes -Type of Bioengineered Tissue Epifix 18mm Epifix 18mm Disc Disc -Expiration Date 06/06/26 07/04/26 -Product Lot Number [id number] -Percent Used 100 100 -Lot number of Saline Used [id number] -Bleeding Controlled with Pressure Pressure -Treatment Response Procedure Procedure Tolerated Well Tolerated Well -Offloading Yes Yes -Type of Offloading Total Contact Total Contact Cast (TCC) - Cast (TCC) - Left ($) Left ($) -Debridement - Subq, 1st 20sq cm No No -Apply Skin Sub - 1st 25 sq cm - Feet 1 1 -Epifix 18mm Disc 3 3 Pain Scale: 0-10 Numeric Is Patient Pain Free? Yes Yes - Nurse 3 - General Ulcer D/C NN Start: 09/06/21 13:48 Freq: Status: Active Protocol: Activity Type Activity Date Activity User E-Sign Co-Sign Detail Recorded Client Recorded Date Recorded By Document 09/06/21 14:25 [facility] [id number] 09/06/21 14:26 [facility] Document 09/13/21 14:35 [facility] [id number] 09/13/21 14:36 [facility] 09/06/21 09/13/21 14:25 14:35 Wound Care Nurse 3 #5- L HALLUX PLANTAR -Ulcer Cleansing Rinsed/ Irrigated with Saline -Foul Odor after Cleansing No -Primary Dressing Applied Mepilex Border Mepilex Border, Other -Other Dressing EPIFIX epifix -Other Covering TCC UNDERCAST drsg per ak barrel ribs solderer ; tcc undercast -Mepilex Border 1 1 Treatment Response Procedure Procedure Tolerated Well Tolerated Well Pain Scale: 0-10 Numeric Is Patient Pain Free? Yes Yes - Visit Discharge Discharge Condition Stable Stable Ambulatory Status Wheelchair Ambulatory Transportation Private Auto Private Auto Assessment/Plan Assessment/Plan (1) Type 2 diabetes mellitus with diabetic polyneuropathy: CODE(S): E11.42 - Type 2 diabetes mellitus with diabetic polyneuropathy QUALIFIERS: Diabetes mellitus assisted insulin use: with home support worker use Qualified Code(s): E11.42 - Type 2 diabetes mellitus with diabetic polyneuropathy; Z79.4 - habilitative interventionist (current) use of insulin (2) Chronic ulcer of left foot with fat layer exposed: CODE(S): L97.522 - Non-pressure chronic ulcer of other part of left foot with fat layer exposed (3) Acquired hallux limitus of left foot: CODE(S): M20.5X2 - Other deformities of toe(s) (acquired), left foot (4) Delayed wound healing: CODE(S): T14.8XXD - Other injury of unspecified body region, subsequent encounter (5) Difficulty in walking, not elsewhere classified: CODE(S): R26.2 - Difficulty in walking, not elsewhere classified (6) Localized edema: CODE(S): R60.0 - Localized edema (7) Achilles rupture, right: CODE(S): S86.011A - Strain of right Achilles tendon, initial encounter PLAN: I reviewed and discussed his case today. Debridement was performed today as noted in the clinical panel to all of the ulcer site. The following work up and care recommendations were made: Dressing: dressing was applied prior to total contact cast application Wash: The ulcer was washed with soap and water Tissue growth optimization: I recommend advanced wound healing product, epi fix which is placental derived tissue. Prior authorization with insurance will be started. Is medically necessary for wound healing. This is a chronic wound and he is demonstrating delayed healing. He is at risk for continued limb loss and recurrent infections. The indications benefits anticipated application and management were reviewed in detail. This was applied (epi fix advanced wound healing product) according to standard protocol. The epi fix was secured in place with a wound veil and Steri-Strips. He tolerated this well. He was advised to keep this clean, dry, and intact along with his total contact cast until follow-up next week. Offload: Verbal consent was obtained for application of left lower extremity total contact cast. This was applied according to standard protocol in a well- padded manner in a rectus position. To keep clean, dry, and intact. He understands the indications benefits and anticipated management and application. I answered his questions. He tolerated this well. To call if the cast is too loose, too tight, signs of DVT, or if the cast gets wet. He demonstrates understanding. Vascular: He had noninvasive vascular studies performed in October 2020 without any gross abnormalities. He had bilateral triphasic waveforms and normal PVRs. His right ABIs were 1.12 and 1.25 and left was 1.16 and 1.13. Edema: The total contact cast will also aid in edema reduction. To elevate Infection: He was reassured no local signs of infection are noted. To monitor. Pain: This is currently controlled today his neuropathic status Host factors: He has diabetes and this may contribute to delays in healing. He has prior improvement hemoglobin A1c's are noted. I recommend nutritional supplementation to optimize healing including Denis. He will obtain this today. It is also noted he has a ruptured contralateral limb Achilles in which she has not been wearing the Achilles wedge boot. He was advised to do so and to use an assistive walking device such as a walker or wheelchair given that he is also now in a left total contact cast. He understands significant dysfunction of the right lower extremity is possible if this Achilles not healing and approximated manner. He also understands he is currently not a surgical candidate due to his elevation in glucose levels for right Achilles rupture repair or Mixon curative surgical arthroplasty of the left foot. Diagnostic data: I recommend updating CMP, CBC, and A1c. Lab order was given. His last A1c on file was from 10-10-2020; 8.9%. He states he will get this done today or tomorrow. I answered all the patient's questions. To return to the wound healing center in 1 week or call sooner if the patient has any questions or concerns. Note: [employer] speech recognition infrastructure project manager software was used to create portions of this document. Sound-alike and misspelled words, as well as other infrastructure project manager errors may be contained in the documentation.
[2021-09-20 13:36] VITALS: BP 149/69; PULSE 89; TEMP 36.1
--- NOTE | 2021-09-20 15:38 | PN.PCM_ITS ---
History of Present Illness Date of Service: 09/20/21 Chief Complaint: Left great toe ulcer History of Wound: This 60-year-old diabetic male with comorbidities including diabetes and history of foot ulcerations. His left hallux wound has been open again for several months. He denies any specific trauma or has any specific idea why this reopened. He has difficulty offloading this site. He is amenable to have epi fix, advanced wound healing product, applied today if it is approved by the insurance. He is at risk for limb loss. It is noted he also currently has a right Achilles rupture and this alters his gait pattern. He has not been wearing his wedge right walking boot as advised at times when he is at home however uses a cane and a knee roller when he leaves the house. He is not amendable to have another left lower extremity total contact cast this next week and would like to resume the following. He denies redness or odor. He denies fever, chill, nausea, vomiting. Progress of Wound: Improving Objective Data Objective Data Vital Signs: Vital Signs Temp Pulse Resp BP 96.9 F L 89 22 H 149/69 H 09/20/21 13:36 09/20/21 13:36 09/13/21 13:58 09/20/21 13:36 Oxygen Delivery Method Room Air Physical Exam Const alert and no apparent distress General Appearance: cooperative and comfortable Extremity normal capillary refill and no calf tenderness General Extremity: edema bilateral lower extremity, no tenderness to palpation of joints or extremities and other findings Other Details: Capillary refill time less than 3 seconds noted to digits ; Negative for clubbing or cyanosis Peripheral Pulses: Yes posterior tibial pulses present bilateral diminished and dorsalis pedis pulses present bilateral diminished Skin General Skin Exam: atrophy and dry skin; Negative for ecchymosis, erythema, eschar, pallor or dermatitis Rashes: no rashes Wounds: wounds noted Wound Narrative: ulcers noted to left hallux plantar medial No malodor, erythema, purulence, probing to bone, streaking, fluctuation, crepitus, or other signs of infection. Skin is atrophic and hairless. Granular base ulcer plantar left hallux without deep tissue exposure or undermining or maceration. There is a callus. decreased left hallux IPJ/MPJ ROM Neuro Sensory Exam: extremities light-touch: decreased Motor Exam: strength 5/5 throughout and general weakness Psych Appearance: appropriate Attitude: calm Debridement Note Debridement Note Wound debrided: plantar left hallux Wound Grade/Stage: 2 Type of Debridement: Excisional debridement Anesthesia Used: 4% Lidocaine Solution Depth: in the subcutaneous layer Percentage of wound debrided: 100 Instrument Used: #15 blade Tissue Removed: fibrous, devitalized subcutaneous, biofilm, slough Severity: Fat Layer Exposed Amount of bleeding with debridement: Mild Bleeding Controlled with: Pressure Patient tolerated procedure: Patient tolerated procedure well Post-Debridement Measurements and Additional Note: Post-Debridement Measurements/Treatment - Nurse 1 - General Ulcer Assessment Start: 09/06/21 13:48 Freq: Status: Active Protocol: ARIELLE Activity Type Activity Date Activity User E-Sign Co-Sign Detail Recorded Client Recorded Date Recorded By Document 09/06/21 13:48 BMF [id number] 09/06/21 13:57 BMF Document 09/13/21 13:58 DL [id number] 09/13/21 14:06 DL Document 09/20/21 13:36 AK [id number] 09/20/21 13:38 AK 09/06/21 09/13/21 09/20/21 13:48 13:58 13:36 - Today's Visit Information Type of service Follow-up Visit Follow-up Visit Follow-up Visit (Physician/LINE REPAIRER (Physician/LINE REPAIRER (Physician/LINE REPAIRER ) ) ) Arrival Mode Ambulatory,Cane Ambulatory Ambulatory,Cane ,Wheelchair Transfer Assistance Other Stretcher Transfer Assist (Other) STAND BY Patient Identification Verified (Name & Yes Yes Yes ) Patient Requires Transmission-Based No No No Precautions Safety Precautions NA Vital Signs Temperature (97.8 F-99.1 F) 96.9 F L 97.4 F L 96.9 F L Temperature Source Temporal Temporal Temporal Pulse Rate (60-100) 77 88 89 Pulse Location Monitor Monitor Monitor Respiratory Rate (12-18) 16 22 H Respiratory rate source Observation Observation Oxygen Delivery Method Room Air Blood Pressure (90/60-120/80) 151/84 H 133/70 H 149/69 H Blood Pressure Mean (mm Hg) 106 91 95 Source Monitor Monitor Monitor Position Sitting Blood Pressure Location Left Arm History Since Last Visit- (Skip if this is Patient's initial visit) Have you changed medications since your No No No last visit? Any new allergies or adverse reactions No No No Had a fall/change in ADL's that may No No No increase risk of falls Signs or symptoms of abuse and/or No No neglect since last visit Have you been in the hospital since your No No No last visit? Has dressing in place as prescribed No Yes Yes Has compression in place as prescribed N/A N/A Yes Has offloadiing in place as prescribed No Yes Yes Experienced any changes in pain level or No No No management Left Footwear Slipper Total Contact Removable Cast Cast Walker/Walking Boot Right Footwear Slipper Regular Shoe Other Footwear PT CUT OFF TCC PRIOR TO COMING , SAID HE GOT IT WET Pain Scale: 0-10 Numeric Is Patient Pain Free? Yes Yes Yes WC - Nurse 1 - General Ulcer Measurement Start: 09/06/21 13:48 Freq: Status: Active Protocol: Activity Type Activity Date Activity User E-Sign Co-Sign Detail Recorded Client Recorded Date Recorded By Document 09/06/21 13:48 [facility] [id number] 09/06/21 13:57 [facility] Document 09/13/21 13:58 DL [id number] 09/13/21 14:06 DL Document 09/20/21 13:36 [place] [id number] 09/20/21 13:38 AK 09/06/21 09/13/21 09/20/21 13:48 13:58 13:36 Wound Center Nurse 1 #5- L HALLUX PLANTAR -Combined with other wound No No -Current Size (cm) - Length 1.2 1.1 1 -Current Size (cm) - Width 1.3 1.3 1.2 -Current Size (cm) - Depth 0.1 0.1 0.1 -Total Square Cm 1.56 1.43 1.2 -Photo Taken No No Yes -Epithelialization Small 1-33% Medium 34-66% -Tunneling No No No -Undermining/Tunneling No No No -Circular Undermining No No No -Change in Wound Grade/Stage No -Exudate Amt Medium Medium Medium -Exudate Type Serosanguineous Serosanguineous Serosanguineous -Wound Margin Distinct, Distinct, Distinct, Outline Outline Outline Attached Attached Attached -Granulation Amt Large (67-100%) Large (67-100%) Medium (34-66%) -Granulation Quality Germania Germania,Red Germania -Slough/Fibrin Yes Yes -Necrosis Amt Small (1-33%) Medium (34-66%) Medium (34-66%) -Necrotic Tissue Type Adherent Slough Adherent Slough Adherent Slough -Structure Exposed N/A N/A -Texture (Brittany-wound Skin Appearance) Callus No Abnormality, No Abnormality, Assessed Assessed -Moisture (Brittany-wound Skin Appearance) Maceration Assessed, Assessed, Maceration Maceration -Color (Brittany-wound Skin Appearance) Assessed,Palor No Abnormality, No Abnormality, Assessed Assessed -Temperature (Brittany-wound Skin No Abnormality No Abnormality No Abnormality Appearance) (Pt Warm) (Pt Warm) (Pt Warm) -Tenderness on Palpation (Brittany-wound No No No Skin Appearance) -Ulcer Cleansing Rinsed/ Soap and Water Rinsed/ Irrigated with Irrigated with Saline Saline -Foul Odor after Cleansing No No No -Anesthetic Used 5% Lidocaine 5% Lidocaine 4% Lidocaine Gel Gel Solution WC - Nurse 2 - General Ulcer CM Notes Start: 09/06/21 13:48 Freq: Status: Active Protocol: Activity Type Activity Date Activity User E-Sign Co-Sign Detail Recorded Client Recorded Date Recorded By Document 09/06/21 14:06 [id number] 09/06/21 14:12 Document 09/13/21 14:19 [id number] 09/13/21 14:21 Document 09/20/21 13:52 [id number] 09/20/21 13:59 09/06/21 09/13/21 09/20/21 14:06 14:19 13:52 Wound Center Nurse 2 #5- L HALLUX PLANTAR -Time 14:06 14:19 13:52 -Correct Patient Yes Yes Yes -Correct Side, Site, Position Yes Yes Yes -Correct Procedure Yes Yes Yes -Procedure Performed Yes Yes Yes -Type of Procedure Debridement Debridement Debridement -Clinical Debridement Subcutaneous Subcutaneous Subcutaneous -Tissue Removed Subcutaneous Subcutaneous Subcutaneous -Post Debridement (cm) - Length 1.3 1.2 1.2 -Post Debridement (cm) - Width 1.3 1.3 1.1 -Post Debridement (cm) - Depth 0.2 0.1 0.1 -Total Square (Post) (cm) 1.69 1.56 1.32 -Area of Debridement (cm) - Length 1.3 1.2 1.2 -Area of Debridement (cm) - Width 1.3 1.3 1.1 -Total Square (Area) (cm) 1.69 1.56 1.32 -Tunneling No No No -Undermining/Tunneling No No No -Circular Undermining No No No -Wound/Ulcer Outcome Not Healed Not Healed Not Healed -Ulcer Cleansing Rinsed/ Rinsed/ Rinsed/ Irrigated with Irrigated with Irrigated with Saline Saline Saline -Foul Odor after Cleansing No No No -Bioengineered Tissue Yes Yes Yes -Type of Bioengineered Tissue Epifix 18mm Epifix 18mm Epifix 18mm Disc Disc Disc -Expiration Date 06/06/26 07/04/26 06/06/26 -Product Lot Number [id number] -Percent Used 100 100 100 -Lot number of Saline Used [id number] -Bleeding Controlled with Pressure Pressure Pressure -Treatment Response Procedure Procedure Procedure Tolerated Well Tolerated Well Tolerated Well -Offloading Yes Yes Yes -Type of Offloading Total Contact Total Contact Surgical Shoe Cast (TCC) - Cast (TCC) - Left ($) Left ($) -Debridement - Subq, 1st 20sq cm No No No -Apply Skin Sub - 1st 25 sq cm - Feet 1 1 1 -Epifix 18mm Disc 3 3 3 Pain Scale: 0-10 Numeric Is Patient Pain Free? Yes Yes Yes - Nurse 3 - General Ulcer D/C NN Start: 09/06/21 13:48 Freq: Status: Active Protocol: Activity Type Activity Date Activity User E-Sign Co-Sign Detail Recorded Client Recorded Date Recorded By Document 09/06/21 14:25 [facility] [id number] 09/06/21 14:26 [facility] Document 09/13/21 14:35 [facility] [id number] 09/13/21 14:36 [facility] Document 09/20/21 14:15 [facility] [id number] 09/20/21 14:16 [facility] 09/06/21 09/13/21 09/20/21 14:25 14:35 14:15 Wound Care Nurse 3 #5- L HALLUX PLANTAR -Ulcer Cleansing Rinsed/ Irrigated with Saline -Foul Odor after Cleansing No -Primary Dressing Applied Mepilex Border Mepilex Border, Other -Other Dressing EPIFIX epifix EPIFIX -Primary Dressing Covered/Secured with Dry Gauze, Secured with Tape -Other Covering TCC UNDERCAST drsg per [place] background check coordinator ; tcc undercast -Mepilex Border 1 1 Treatment Response Procedure Procedure Procedure Tolerated Well Tolerated Well Tolerated Well Pain Scale: 0-10 Numeric Is Patient Pain Free? 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 helper use Qualified Code(s): E11.42 - Type 2 diabetes mellitus with diabetic polyneuropathy; Z79.4 - termite inspector (current) use of insulin (2) Chronic ulcer of left foot with fat layer exposed: CODE(S): L97.522 - Non-pressure chronic ulcer of other part of left foot with fat layer exposed (3) Acquired hallux limitus of left foot: CODE(S): M20.5X2 - Other deformities of toe(s) (acquired), left foot (4) Delayed wound healing: CODE(S): T14.8XXD - Other injury of unspecified body region, subsequent encounter (5) Difficulty in walking, not elsewhere classified: CODE(S): R26.2 - Difficulty in walking, not elsewhere classified (6) Localized edema: CODE(S): R60.0 - Localized edema (7) Achilles rupture, right: CODE(S): S86.011A - Strain of right Achilles tendon, initial encounter PLAN: I reviewed and discussed his case today. Debridement was performed today as noted in the clinical panel to all of the ulcer site. The following work up and care recommendations were made: Dressing: dressing was applied secondary after epifix was applied Wash: The ulcer was washed with soap and water Tissue growth optimization: I recommend advanced wound healing product, epi fix which is placental derived tissue. Prior authorization with insurance will be started. Is medically necessary for wound healing. This is a chronic wound and he is demonstrating delayed healing. He is at risk for continued limb loss and recurrent infections. The indications benefits anticipated application and management were reviewed in detail. This was applied (epi fix advanced wound healing product) according to standard protocol. The epi fix was secured in place with a wound veil and Steri-Strips. He tolerated this well. He was advised to keep this clean, dry, and intact along with his total contact cast until follow-up next week. Offload: cast will be reapplied next week. to resume cam walker use this upcoming week and keep weight on heel and use assisive device. Vascular: He had noninvasive vascular studies performed in October 2020 without any gross abnormalities. He had bilateral triphasic waveforms and normal PVRs. His right ABIs were 1.12 and 1.25 and left was 1.16 and 1.13. Edema: The total contact cast will also aid in edema reduction. To elevate Infection: He was reassured no local signs of infection are noted. To monitor. Pain: This is currently controlled today his neuropathic status Host factors: He has diabetes and this may contribute to delays in healing. He has prior improvement hemoglobin A1c's are noted. I recommend nutritional supplementation to optimize healing including Denis. He will obtain this today. It is also noted he has a ruptured contralateral limb Achilles in which she has not been wearing the Achilles wedge boot. He was advised to do so and to use an assistive walking device such as a walker or wheelchair given that he is also now in a left total contact cast. He understands significant dysfunction of the right lower extremity is possible if this Achilles not healing and approximated manner. He also understands he is currently not a surgical candidate due to his elevation in glucose levels for right Achilles rupture repair or Mixon curative surgical arthroplasty of the left foot. Diagnostic data: I recommend updating CMP, CBC, and A1c. Lab order was given. His last A1c on file was from 10-10-2020; 8.9%. He had his labs drawn however there was a reported lab error and he has to get this done again. I answered all the patient's questions. To return to the wound healing center in 1 week or call sooner if the patient has any questions or concerns. Note: [employer] [address] speech recognition director of admissions software was used to create portions of this document. Sound-alike and misspelled words, as well as other director of admissions errors may be contained in the documentation.
[2021-09-27 13:19] VITALS: BP 134/78; PULSE 86; RESP 20; TEMP 36.8
--- NOTE | 2021-09-27 16:30 | PN.PCM_ITS ---
History of Present Illness Date of Service: 09/27/21 Chief Complaint: Left great toe ulcer and also ruptured right achilles tendon injury follow up History of Wound: This 61-year-old diabetic male with comorbidities including diabetes and history of foot ulcerations. His left hallux wound has been open again for several months. He denies any specific trauma or has any specific idea why this reopened. He has difficulty offloading this site. He is amenable to have epi fix, advanced wound healing product, applied today if it is approved by the insurance. He is at risk for limb loss. It is noted he also currently has a right Achilles rupture and this alters his gait pattern. He also requests to be evaluated for this today as well because it would be challenging for him to come [facility] for [facility]. He has not been wearing his wedge right walking boot as advised at times when he is at home however uses a cane and a knee roller when he leaves the house. He reports continued foot slap with ambulation on the right lower extremity. He is amendable to have another left lower extremity total contact cast this next week. He denies redness or odor. He denies fever, chill, nausea, vomiting. Progress of Wound: Improving Objective Data Objective Data Vital Signs: Vital Signs Temp Pulse Resp BP 98.2 F 86 20 H 134/78 H 09/27/21 13:19 09/27/21 13:19 09/27/21 13:19 09/27/21 13:19 Oxygen Delivery Method Room Air Physical Exam Const alert and no apparent distress General Appearance: cooperative and comfortable Extremity normal capillary refill and no calf tenderness General Extremity: edema bilateral lower extremity, no tenderness to palpation of joints or extremities and other findings Other Details: Capillary refill time less than 3 seconds noted to digits ; Negative for clubbing or cyanosis Peripheral Pulses: Yes posterior tibial pulses present bilateral diminished and dorsalis pedis pulses present bilateral diminished Skin General Skin Exam: atrophy and dry skin; Negative for ecchymosis, erythema, eschar, pallor or dermatitis Rashes: no rashes Wounds: wounds noted Wound Narrative: ulcer noted to left hallux plantar medial No malodor, erythema, purulence, probing to bone, streaking, fluctuation, crepitus, or other signs of infection. Skin is atrophic and hairless. Granular base ulcer plantar left hallux without deep tissue exposure or undermining or maceration. There is a small peripheral callus. decreased left hallux IPJ/MPJ ROM right lower extremity: no ulcer or sign of infection. negative barbara and giles sign. no ankle dorsiflexion with compression to calf. weakness with active and resistive plantarflexion (1/5). 5/5 ankle inversion, eversion and dorsiflexion Neuro Sensory Exam: extremities light-touch: decreased Motor Exam: strength 5/5 throughout and general weakness Psych Appearance: appropriate Attitude: calm Debridement Note Debridement Note Wound debrided: plantar left hallux Wound Grade/Stage: 1 Type of Debridement: Excisional debridement Anesthesia Used: 4% Lidocaine Solution Depth: in the subcutaneous layer Percentage of wound debrided: 100 Instrument Used: #15 blade Tissue Removed: fibrous, devitalized subcutaneous, biofilm, slough Severity: Fat Layer Exposed Amount of bleeding with debridement: Mild Bleeding Controlled with: Pressure Patient tolerated procedure: Patient tolerated procedure well Post-Debridement Measurements and Additional Note: Post-Debridement Measurements/Treatment - Nurse 1 - General Ulcer Assessment Start: 09/06/21 13:48 Freq: Status: Active Protocol: ARIELLE Activity Type Activity Date Activity User E-Sign Co-Sign Detail Recorded Client Recorded Date Recorded By Document 09/06/21 13:48 [facility] [id number] 09/06/21 13:57 [facility] Document 09/13/21 13:58 DL [id number] 09/13/21 14:06 DL Document 09/20/21 13:36 [place] [id number] 09/20/21 13:38 [place] Document 09/27/21 13:19 DL [id number] 09/27/21 13:26 DL 09/06/21 09/13/21 09/20/21 13:48 13:58 13:36 - Today's Visit Information Type of service Follow-up Visit Follow-up Visit Follow-up Visit (Physician/BOTANY TECHNICIAN (Physician/BOTANY TECHNICIAN (Physician/BOTANY TECHNICIAN ) ) ) Arrival Mode Ambulatory,Cane Ambulatory Ambulatory,Cane ,Wheelchair Transfer Assistance Other Stretcher Transfer Assist (Other) STAND BY Patient Identification Verified (Name & Yes Yes Yes ) Patient Requires Transmission-Based No No No Precautions Safety Precautions NA Vital Signs Temperature (97.8 F-99.1 F) 96.9 F L 97.4 F L 96.9 F L Temperature Source Temporal Temporal Temporal Pulse Rate (60-100) 77 88 89 Pulse Location Monitor Monitor Monitor Respiratory Rate (12-18) 16 22 H Respiratory rate source Observation Observation Oxygen Delivery Method Room Air Blood Pressure (90/60-120/80) 151/84 H 133/70 H 149/69 H Blood Pressure Mean (mm Hg) 106 91 95 Source Monitor Monitor Monitor Position Sitting Blood Pressure Location Left Arm History Since Last Visit- (Skip if this is Patient's initial visit) Have you changed medications since your No No No last visit? Any new allergies or adverse reactions No No No Had a fall/change in ADL's that may No No No increase risk of falls Signs or symptoms of abuse and/or No No neglect since last visit Have you been in the hospital since your No No No last visit? Has dressing in place as prescribed No Yes Yes Has compression in place as prescribed N/A N/A Yes Has offloadiing in place as prescribed No Yes Yes Experienced any changes in pain level or No No No management Left Footwear Slipper Total Contact Removable Cast Cast Walker/Walking Boot Right Footwear Slipper Regular Shoe Other Footwear PT CUT OFF TCC PRIOR TO COMING , SAID HE GOT IT WET Pain Scale: 0-10 Numeric Is Patient Pain Free? Yes Yes Yes 09/27/21 13:19 WC - Today's Visit Information Type of service Follow-up Visit (Physician/BOTANY TECHNICIAN ) Arrival Mode Ambulatory Transfer Assistance None Transfer Assist (Other) Patient Identification Verified (Name & Yes ) Patient Requires Transmission-Based No Precautions Safety Precautions Vital Signs Temperature (97.8 F-99.1 F) 98.2 F Temperature Source Temporal Pulse Rate (60-100) 86 Pulse Location Monitor Respiratory Rate (12-18) 20 H Respiratory rate source Observation Oxygen Delivery Method Blood Pressure (90/60-120/80) 134/78 H Blood Pressure Mean (mm Hg) 96 Source Monitor Position Blood Pressure Location History Since Last Visit- (Skip if this is Patient's initial visit) Have you changed medications since your No last visit? Any new allergies or adverse reactions No Had a fall/change in ADL's that may No increase risk of falls Signs or symptoms of abuse and/or No neglect since last visit Have you been in the hospital since your No last visit? Has dressing in place as prescribed Yes Has compression in place as prescribed N/A Has offloadiing in place as prescribed No Experienced any changes in pain level or No management Left Footwear Right Footwear Other Footwear Pain Scale: 0-10 Numeric Is Patient Pain Free? Yes WC - Nurse 1 - General Ulcer Measurement Start: 09/06/21 13:48 Freq: Status: Active Protocol: Activity Type Activity Date Activity User E-Sign Co-Sign Detail Recorded Client Recorded Date Recorded By Document 09/06/21 13:48 [facility] [id number] 09/06/21 13:57 [facility] Document 09/13/21 13:58 DL [id number] 09/13/21 14:06 DL Document 09/20/21 13:36 [place] [id number] 09/20/21 13:38 [place] Document 09/27/21 13:19 DL [id number] 09/27/21 13:26 DL 09/06/21 09/13/21 09/20/21 13:48 13:58 13:36 Wound Center Nurse 1 #5- L HALLUX PLANTAR -Combined with other wound No No -Current Size (cm) - Length 1.2 1.1 1 -Current Size (cm) - Width 1.3 1.3 1.2 -Current Size (cm) - Depth 0.1 0.1 0.1 -Total Square Cm 1.56 1.43 1.2 -Photo Taken No No Yes -Epithelialization Small 1-33% Medium 34-66% -Tunneling No No No -Undermining/Tunneling No No No -Circular Undermining No No No -Change in Wound Grade/Stage No -Exudate Amt Medium Medium Medium -Exudate Type Serosanguineous Serosanguineous Serosanguineous -Wound Margin Distinct, Distinct, Distinct, Outline Outline Outline Attached Attached Attached -Granulation Amt Large (67-100%) Large (67-100%) Medium (34-66%) -Granulation Quality Kingfisher Kingfisher,Red Kingfisher -Slough/Fibrin Yes Yes -Necrosis Amt Small (1-33%) Medium (34-66%) Medium (34-66%) -Necrotic Tissue Type Adherent Slough Adherent Slough Adherent Slough -Structure Exposed N/A N/A -Texture (Brittany-wound Skin Appearance) Callus No Abnormality, No Abnormality, Assessed Assessed -Moisture (Brittany-wound Skin Appearance) Maceration Assessed, Assessed, Maceration Maceration -Color (Brittany-wound Skin Appearance) Assessed,Palor No Abnormality, No Abnormality, Assessed Assessed -Temperature (Brittany-wound Skin No Abnormality No Abnormality No Abnormality Appearance) (Pt Warm) (Pt Warm) (Pt Warm) -Tenderness on Palpation (Brittany-wound No No No Skin Appearance) -Ulcer Cleansing Rinsed/ Soap and Water Rinsed/ Irrigated with Irrigated with Saline Saline -Foul Odor after Cleansing No No No -Anesthetic Used 5% Lidocaine 5% Lidocaine 4% Lidocaine Gel Gel Solution 09/27/21 13:19 Wound Center Nurse 1 #5- L HALLUX PLANTAR -Combined with other wound -Current Size (cm) - Length 0.8 -Current Size (cm) - Width 0.9 -Current Size (cm) - Depth 0.2 -Total Square Cm 0.72 -Photo Taken Yes -Epithelialization -Tunneling -Undermining/Tunneling -Circular Undermining -Change in Wound Grade/Stage -Exudate Amt Small -Exudate Type Serosanguineous -Wound Margin Distinct, Outline Attached -Granulation Amt Small (1-33%) -Granulation Quality Kingfisher -Slough/Fibrin -Necrosis Amt None Present (0 %) -Necrotic Tissue Type -Structure Exposed N/A -Texture (Brittany-wound Skin Appearance) Callus -Moisture (Brittany-wound Skin Appearance) Dry/Scaly -Color (Brittany-wound Skin Appearance) No Abnormality -Temperature (Brittany-wound Skin No Abnormality Appearance) (Pt Warm) -Tenderness on Palpation (Brittany-wound No Skin Appearance) -Ulcer Cleansing Rinsed/ Irrigated with Saline -Foul Odor after Cleansing -Anesthetic Used 5% Lidocaine Gel,Cetacaine WC - Nurse 2 - General Ulcer CM Notes Start: 09/06/21 13:48 Freq: Status: Active Protocol: Activity Type Activity Date Activity User E-Sign Co-Sign Detail Recorded Client Recorded Date Recorded By Document 09/06/21 14:06 [id number] 09/06/21 14:12 Document 09/13/21 14:19 [id number] 09/13/21 14:21 Document 09/20/21 13:52 [id number] 09/20/21 13:59 Document 09/27/21 13:51 [id number] 09/27/21 13:57 09/06/21 09/13/21 09/20/21 14:06 14:19 13:52 Wound Center Nurse 2 #5- L HALLUX PLANTAR -Time 14:06 14:19 13:52 -Correct Patient Yes Yes Yes -Correct Side, Site, Position Yes Yes Yes -Correct Procedure Yes Yes Yes -Procedure Performed Yes Yes Yes -Type of Procedure Debridement Debridement Debridement -Clinical Debridement Subcutaneous Subcutaneous Subcutaneous -Tissue Removed Subcutaneous Subcutaneous Subcutaneous -Post Debridement (cm) - Length 1.3 1.2 1.2 -Post Debridement (cm) - Width 1.3 1.3 1.1 -Post Debridement (cm) - Depth 0.2 0.1 0.1 -Total Square (Post) (cm) 1.69 1.56 1.32 -Area of Debridement (cm) - Length 1.3 1.2 1.2 -Area of Debridement (cm) - Width 1.3 1.3 1.1 -Total Square (Area) (cm) 1.69 1.56 1.32 -Tunneling No No No -Undermining/Tunneling No No No -Circular Undermining No No No -Wound/Ulcer Outcome Not Healed Not Healed Not Healed -Ulcer Cleansing Rinsed/ Rinsed/ Rinsed/ Irrigated with Irrigated with Irrigated with Saline Saline Saline -Foul Odor after Cleansing No No No -Bioengineered Tissue Yes Yes Yes -Type of Bioengineered Tissue Epifix 18mm Epifix 18mm Epifix 18mm Disc Disc Disc -Expiration Date 06/06/26 07/04/26 06/06/26 -Product Lot Number [id number] -Percent Used 100 100 100 -Lot number of Saline Used [id number] -Bleeding Controlled with Pressure Pressure Pressure -Treatment Response Procedure Procedure Procedure Tolerated Well Tolerated Well Tolerated Well -Offloading Yes Yes Yes -Type of Offloading Total Contact Total Contact Surgical Shoe Cast (TCC) - Cast (TCC) - Left ($) Left ($) -Debridement - Subq, 1st 20sq cm No No No -Apply Skin Sub - 1st 25 sq cm - Feet 1 1 1 -Epifix 18mm Disc 3 3 3 Pain Scale: 0-10 Numeric Is Patient Pain Free? Yes Yes Yes 09/27/21 13:51 Wound Center Nurse 2 #5- L HALLUX PLANTAR -Time 13:54 -Correct Patient Yes -Correct Side, Site, Position Yes -Correct Procedure Yes -Procedure Performed Yes -Type of Procedure Debridement -Clinical Debridement Subcutaneous -Tissue Removed Subcutaneous -Post Debridement (cm) - Length 0.9 -Post Debridement (cm) - Width 0.9 -Post Debridement (cm) - Depth 0.2 -Total Square (Post) (cm) 0.81 -Area of Debridement (cm) - Length 0.9 -Area of Debridement (cm) - Width 0.9 -Total Square (Area) (cm) 0.81 -Tunneling No -Undermining/Tunneling No -Circular Undermining No -Wound/Ulcer Outcome Not Healed -Ulcer Cleansing Rinsed/ Irrigated with Saline -Foul Odor after Cleansing No -Bioengineered Tissue Yes -Type of Bioengineered Tissue Epifix 18mm Disc -Expiration Date 05/06/26 -Product Lot Number [id number] -Percent Used 100 -Lot number of Saline Used [id number] -Bleeding Controlled with Pressure -Treatment Response Procedure Tolerated Well -Offloading Yes -Type of Offloading Total Contact Cast (TCC) - Left ($) -Debridement - Subq, 1st 20sq cm No -Apply Skin Sub - 1st 25 sq cm - Feet 1 -Epifix 18mm Disc 3 Pain Scale: 0-10 Numeric Is Patient Pain Free? Yes - Nurse 3 - General Ulcer D/C NN Start: 09/06/21 13:48 Freq: Status: Active Protocol: Activity Type Activity Date Activity User E-Sign Co-Sign Detail Recorded Client Recorded Date Recorded By Document 09/06/21 14:25 [facility] [id number] 09/06/21 14:26 [facility] Document 09/13/21 14:35 [facility] [id number] 09/13/21 14:36 [facility] Document 09/20/21 14:15 [facility] [id number] 09/20/21 14:16 [facility] Document 09/27/21 14:10 [id number] 09/27/21 14:11 KR 09/06/21 09/13/21 09/20/21 14:25 14:35 14:15 Wound Care Nurse 3 #5- L HALLUX PLANTAR -Ulcer Cleansing Rinsed/ Irrigated with Saline -Foul Odor after Cleansing No -Primary Dressing Applied Mepilex Border Mepilex Border, Other -Other Dressing EPIFIX epifix EPIFIX -Primary Dressing Covered/Secured with Dry Gauze, Secured with Tape -Other Covering TCC UNDERCAST drsg per ak 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 Yes Yes Yes WC - Visit Discharge Discharge Condition Stable Stable Stable Ambulatory Status Wheelchair Ambulatory Ambulatory Transportation Private Auto Private Auto Private Auto 09/27/21 14:10 Wound Care Nurse 3 #5- L HALLUX PLANTAR -Ulcer Cleansing -Foul Odor after Cleansing -Primary Dressing Applied -Other Dressing -Primary Dressing Covered/Secured with -Other Covering -Mepilex Border Left -Other tcc undercasting Treatment Response Pain Scale: 0-10 Numeric Is Patient Pain Free? Yes WC - Visit Discharge Discharge Condition Stable Ambulatory Status Ambulatory Transportation Private Auto Assessment/Plan Assessment/Plan (1) Type 2 diabetes mellitus with diabetic polyneuropathy: CODE(S): E11.42 - Type 2 diabetes mellitus with diabetic polyneuropathy QUALIFIERS: Diabetes mellitus exterminator helper insulin use: with exterminator helper use Qualified Code(s): E11.42 - Type 2 diabetes mellitus with diabetic polyneuropathy; Z79.4 - half-way (current) use of insulin (2) Chronic ulcer of left foot with fat layer exposed: CODE(S): L97.522 - Non-pressure chronic ulcer of other part of left foot with fat layer exposed (3) Acquired hallux limitus of left foot: CODE(S): M20.5X2 - Other deformities of toe(s) (acquired), left foot (4) Delayed wound healing: CODE(S): T14.8XXD - Other injury of unspecified body region, subsequent encounter (5) Difficulty in walking, not elsewhere classified: CODE(S): R26.2 - Difficulty in walking, not elsewhere classified (6) Localized edema: CODE(S): R60.0 - Localized edema (7) Achilles rupture, right: CODE(S): S86.011A - Strain of right Achilles tendon, initial encounter PLAN: I reviewed and discussed his case today. Debridement was performed today as noted in the clinical panel to all of the ulcer site. The following work up and care recommendations were made: Dressing: dressing was applied secondary after epifix was applied Wash: The ulcer was washed with soap and water Tissue growth optimization: I recommend advanced wound healing product, epi fix which is placental derived tissue. Prior authorization with insurance will be started. Is medically necessary for wound healing. This is a chronic wound and he is demonstrating delayed healing. He is at risk for continued limb loss and recurrent infections. The indications benefits anticipated application and management were reviewed in detail. This was applied (epi fix advanced wound healing product) according to standard protocol. The epi fix was secured in place with a wound veil and Steri-Strips. He tolerated this well. He was advised to keep this clean, dry, and intact along with his total contact cast until follow-up next week. Offload: cast will be reapplied next week. to resume cam walker use this upcoming week and keep weight on heel and use assisive device. Vascular: He had noninvasive vascular studies performed in October 2020 without any gross abnormalities. He had bilateral triphasic waveforms and normal PVRs. His right ABIs were 1.12 and 1.25 and left was 1.16 and 1.13. Edema: The total contact cast will also aid in edema reduction. To elevate Infection: He was reassured no local signs of infection are noted. To monitor. Pain: This is currently controlled today his neuropathic status Host factors: He has diabetes and this may contribute to delays in healing. He has prior improvement hemoglobin A1c's are noted. I recommend nutritional supplementation to optimize healing including Denis. He will obtain this today. It is also noted he has a ruptured contralateral limb Achilles in which she has not been wearing the Achilles wedge boot. He was advised to do so and to use an assistive walking device such as a walker or wheelchair given that he is also now in a left total contact cast. He understands significant dysfunction of the right lower extremity is possible if this Achilles not healing and approximated manner. He also understands he is currently not a surgical candidate due to his elevation in glucose levels for right Achilles rupture repair or Mixon curative surgical arthroplasty of the left foot. Diagnostic data: I recommend updating CMP, CBC, and A1c. Lab order was given. His last A1c on file was from 10-10-2020; 8.9%. He had his labs drawn however there was a reported lab error and he has to get this done again. right lower extremity injury: I advised him of the conservative and surgical treatments for right lower extremity achilles rupture. He has continued elevated A1C and surgery has more risk of failure and infection. He will proceed with conservative care. I advised him to wear his achilles wedge boot and use assistive device to prevent falls. He was also strongly urged to reduce overall activity to allow healing. It is noted his case is complicated with non compliance and he is at risk for non healing. I answered his questions. To follow up in [facility] for this conditon. I answered all the patient's questions. To return to the wound healing center in 1 week or call sooner if the patient has any questions or concerns. Note: [employer] speech recognition guest services representative software was used to create portions of this document. Sound-alike and misspelled words, as well as other guest services representative errors may be contained in the documentation. 22 minutes was spent on this encounter. This included face to face and non face to face care including preparing for the visit, reviewing the history, performing the exam, counseling and providing education to the patient, family, or caregiver, ordering medications/test/ procedures if indicated as documented, communicating with other healthcare providers, documenting information in the medical record, interpreting / sharing this information when indicated as documented, and care coordination.
== END 2021-10-03 23:59 | disposition home or self-care (01) ==
LOC: WC 13:15
PROVIDERS: PCP Internal Medicine Cardiovascular Disease; Visit Provider Podiatrist
DX: E11.621 Type 2 diabetes mellitus with foot ulcer (principal); L97.522 Non-pressure chronic ulcer of other part of left foot with fat layer exposed; E11.42 Type 2 diabetes mellitus with diabetic polyneuropathy; Z79.4 Long term (current) use of insulin; R60.0 Localized edema; R26.2 Difficulty in walking, not elsewhere classified; M20.5X2 Other deformities of toe(s) (acquired), left foot; S86.011D Strain of right Achilles tendon, subsequent encounter; X58.XXXD Exposure to other specified factors, subsequent encounter
CPT/HCPCS: 15275; 29445; Q4186

== ENCOUNTER 2021-11-01 14:00 | Outpatient (RCR) | payer MEDICARE, MEDICAID, SELFPAY ==
[2021-10-04 00:18] VITALS: BP 134/78; PULSE 86; RESP 20; TEMP 36.8
[2021-10-05 12:04] VITALS: BP 175/95; PULSE 81; RESP 16
[2021-10-11 15:34] VITALS: BP 146/76; PULSE 82; RESP 20; TEMP 35.8
--- NOTE | 2021-10-11 16:37 | PCM.WC.PN ---
History of Present Illness Date of Service: 10/11/21 Chief Complaint: Left great toe ulcer and also ruptured right achilles tendon injury follow up History of Wound: This 61-year-old diabetic male with comorbidities including diabetes and history of foot ulcerations. His left hallux wound has been open again for several months. He denies any specific trauma or has any specific idea why this reopened. He has difficulty offloading this site. He is amenable to have epi fix, advanced wound healing product, applied today if it is approved by the insurance. He is at risk for limb loss. He is not amendable to have another left lower extremity total contact cast this next week. He denies redness or odor. He denies fever, chill, nausea, vomiting. Progress of Wound: improving Objective Data Objective Data Vital Signs: Vital Signs Temp Pulse Resp BP 96.5 F L 82 20 H 146/76 H 10/11/21 15:34 10/11/21 15:34 10/11/21 15:34 10/11/21 15:34 Physical Exam Const alert and no apparent distress General Appearance: cooperative and comfortable Extremity normal capillary refill and no calf tenderness General Extremity: edema bilateral lower extremity, no tenderness to palpation of joints or extremities and other findings Other Details: Capillary refill time less than 3 seconds noted to digits ; Negative for clubbing or cyanosis Peripheral Pulses: Yes posterior tibial pulses present bilateral diminished and dorsalis pedis pulses present bilateral diminished Skin General Skin Exam: atrophy and dry skin; Negative for ecchymosis, erythema, eschar, pallor or dermatitis Rashes: no rashes Wounds: wounds noted Wound Narrative: ulcer noted to left hallux plantar medial No malodor, erythema, purulence, probing to bone, streaking, fluctuation, crepitus, or other signs of infection. Skin is atrophic and hairless. Granular base ulcer plantar left hallux without deep tissue exposure or undermining or maceration. There is a small peripheral callus. decreased left hallux IPJ/MPJ ROM Psych Appearance: appropriate Attitude: calm Debridement Note Debridement Note Wound debrided: plantar left hallux Wound Grade/Stage: 1 Type of Debridement: Excisional debridement Anesthesia Used: 4% Lidocaine Solution Depth: in the subcutaneous layer Percentage of wound debrided: 100 Instrument Used: #15 blade Tissue Removed: fibrous, devitalized subcutaneous, biofilm, slough Severity: Fat Layer Exposed Amount of bleeding with debridement: Mild Bleeding Controlled with: Pressure Patient tolerated procedure: Patient tolerated procedure well Post-Debridement Measurements and Additional Note: Post-Debridement Measurements/Treatment - Nurse 1 - General Ulcer Assessment Start: 10/05/21 12:03 Freq: Status: Active Protocol: ARIELLE Activity Type Activity Date Activity User E-Sign Co-Sign Detail Recorded Client Recorded Date Recorded By Document 10/05/21 12:04 MICHAEL [id number] 10/05/21 12:06 JF Document 10/11/21 15:34 DL [id number] 10/11/21 15:40 DL 10/05/21 10/11/21 12:04 15:34 - Today's Visit Information Type of service Nurse-only Follow-up Visit Visit (Physician/LOGISTICAL ENGINEER ) Arrival Mode Ambulatory Ambulatory Transfer Assistance None Patient Identification Verified (Name & Yes Yes ) Patient Requires Transmission-Based No No Precautions Finger Stick Blood Sugar(mg/dl) (if 132 indicated): Blood Sugar Stated by Patient Temperature (97.8 F-99.1 F) 96.5 F L Temperature Source Temporal Vital Signs Pulse Rate (60-100) 81 82 Pulse Location Monitor Monitor Respiratory Rate (12-18) 16 20 H Respiratory rate source Observation Observation Blood Pressure (90/60-120/80) 175/95 H 146/76 H Blood Pressure Mean (mm Hg) 121 99 Source Monitor Monitor Position Sitting Blood Pressure Location Right Arm History Since Last Visit- (Skip if this is Patient's initial visit) Have you changed medications since your No last visit? Any new allergies or adverse reactions No Had a fall/change in ADL's that may No increase risk of falls Signs or symptoms of abuse and/or No neglect since last visit Have you been in the hospital since your Yes last visit? Has dressing in place as prescribed Yes Has compression in place as prescribed N/A Has offloadiing in place as prescribed Yes Left Footwear Removable Cast Walker/Walking Boot Pain Scale: 0-10 Numeric Is Patient Pain Free? Yes Yes [facility] Nurse 1 - General Ulcer Measurement Start: 10/05/21 12:03 Freq: Status: Active Protocol: Activity Type Activity Date Activity User E-Sign Co-Sign Detail Recorded Client Recorded Date Recorded By Document 10/05/21 12:04 MICHAEL [id number] 10/05/21 12:06 JF Document 10/11/21 15:34 DL [id number] 10/11/21 15:40 DL 10/05/21 10/11/21 12:04 15:34 Wound Center Nurse 1 #5- L HALLUX PLANTAR -Combined with other wound No -Current Size (cm) - Length 0.6 0.7 -Current Size (cm) - Width 0.6 0.6 -Current Size (cm) - Depth 0.1 0.3 -Total Square Cm 0.36 0.42 -Photo Taken No No -Epithelialization Small 1-33% -Tunneling No -Undermining/Tunneling No -Undermining/Tunneling Starts (O'clock 1 ) -Undermining/Tunneling Ends (O'clock) 4 -Maximum Distance (cm) 0.3 -Circular Undermining No -Exudate Amt Small Small -Exudate Type Serosanguineous Serosanguineous -Wound Margin Flat & Intact Thickened -Granulation Amt Large (67-100%) Large (67-100%) -Granulation Quality Red [place] -Slough/Fibrin Yes -Necrosis Amt Small (1-33%) Small (1-33%) -Necrotic Tissue Type Eschar Adherent Slough -Structure Exposed N/A N/A -Texture (Brittany-wound Skin Appearance) Assessed Callus,Scarring -Moisture (Brittany-wound Skin Appearance) Assessed,Dry/ No Abnormality Scaly -Color (Brittany-wound Skin Appearance) Assessed No Abnormality -Temperature (Brittany-wound Skin No Abnormality No Abnormality Appearance) (Pt Warm) (Pt Warm) -Tenderness on Palpation (Brittany-wound No No Skin Appearance) -Ulcer Cleansing Rinsed/ Rinsed/ Irrigated with Irrigated with Saline Saline -Foul Odor after Cleansing No No -Anesthetic Used 5% Lidocaine Gel Lower Limb Edema Present NA WC - Nurse 3 - General Ulcer D/C NN Start: 10/05/21 12:03 Freq: Status: Active Protocol: Activity Type Activity Date Activity User E-Sign Co-Sign Detail Recorded Client Recorded Date Recorded By Document 10/05/21 12:04 MICHAEL [id number] 10/05/21 12:06 MICHAEL 10/05/21 12:04 Vital Signs Pulse Rate (60-100) 81 Pulse Location Monitor Respiratory Rate (12-18) 16 Respiratory rate source Observation Blood Pressure (90/60-120/80) 175/95 H Blood Pressure Mean (mm Hg) 121 Source Monitor Position Sitting Blood Pressure Location Right Arm Pain Scale: 0-10 Numeric Is Patient Pain Free? Yes Wound Care Nurse 3 #5- L HALLUX PLANTAR -Ulcer Cleansing Rinsed/ Irrigated with Saline -Foul Odor after Cleansing No -Primary Dressing Applied C Hydrogel ($) -Primary Dressing Covered/Secured with Dry Gauze -Other Covering [place] WC - Visit Discharge Discharge Condition Stable Ambulatory Status Ambulatory Transportation Private Auto Medication Reconcilliation completed & Yes provided to patient/care provider Clinical Summary of Care Provided Yes Notes: CAM WALKER Assessment/Plan Assessment/Plan (1) Type 2 diabetes mellitus with diabetic polyneuropathy: CODE(S): E11.42 - Type 2 diabetes mellitus with diabetic polyneuropathy QUALIFIERS: Diabetes mellitus adjunct faculty for medical terminology insulin use: with adjunct faculty for medical terminology use Qualified Code(s): E11.42 - Type 2 diabetes mellitus with diabetic polyneuropathy; Z79.4 - halfway (current) use of insulin (2) Chronic ulcer of left foot with fat layer exposed: CODE(S): L97.522 - Non-pressure chronic ulcer of other part of left foot with fat layer exposed (3) Acquired hallux limitus of left foot: CODE(S): M20.5X2 - Other deformities of toe(s) (acquired), left foot (4) Delayed wound healing: CODE(S): T14.8XXD - Other injury of unspecified body region, subsequent encounter (5) Localized edema: CODE(S): R60.0 - Localized edema PLAN: I reviewed and discussed his case today. Debridement was performed today as noted in the clinical panel to all of the ulcer site. The following work up and care recommendations were made: Dressing: dressing was applied secondary after epifix was applied Wash: The ulcer was washed with soap and water Tissue growth optimization: I recommend advanced wound healing product, epi fix which is placental derived tissue. Prior authorization with insurance will be started. Is medically necessary for wound healing. This is a chronic wound and he is demonstrating delayed healing. He is at risk for continued limb loss and recurrent infections. The indications benefits anticipated application and management were reviewed in detail. This was applied (epi fix advanced wound healing product) according to standard protocol. The epi fix was secured in place with a wound veil and Steri-Strips. He tolerated this well. He was advised to keep this clean, dry, and intact along with his total contact cast until follow-up next week. Offload: cast will be reapplied next week and it is noted he refuses cast today. to resume cam walker use this upcoming week and keep weight on heel and use assistive device. Vascular: He had noninvasive vascular studies performed in October 2020 without any gross abnormalities. He had bilateral triphasic waveforms and normal PVRs. His right ABIs were 1.12 and 1.25 and left was 1.16 and 1.13. Edema: The total contact cast will also aid in edema reduction. To elevate Infection: He was reassured no local signs of infection are noted. To monitor. Pain: This is currently controlled today his neuropathic status Host factors: He has diabetes and this may contribute to delays in healing. He has prior improvement hemoglobin A1c's are noted. I recommend nutritional supplementation to optimize healing including Denis. It is also noted he has a ruptured contralateral limb Achilles in which she has not been wearing the Achilles wedge boot. He was advised to do so and to use an assistive walking device such as a walker or wheelchair given that he is also now in a left total contact cast. He understands significant dysfunction of the right lower extremity is possible if this Achilles not healing and approximated manner. He also understands he is currently not a surgical candidate due to his elevation in glucose levels for right Achilles rupture repair or Mixon curative surgical arthroplasty of the left foot. Diagnostic data: I recommend updating CMP, CBC, and A1c. Lab order was given. His last A1c on file was from 10-10-2020; 8.9%. He had his labs drawn however there was a reported lab error and he has to get this done again. I answered all the patient's questions. To return to the wound healing center in 1 week or call sooner if the patient has any questions or concerns. Note: [employer] speech recognition development vice president software was used to create portions of this document. Sound-alike and misspelled words, as well as other development vice president errors may be contained in the documentation.
[2021-10-18 14:16] VITALS: BP 143/81; PULSE 92; TEMP 36.1
--- NOTE | 2021-10-18 15:34 | PN.PCM_ITS ---
History of Present Illness Date of Service: 10/18/21 Chief Complaint: Left great toe ulcer and also ruptured right achilles tendon injury follow up new left heel ulcer History of Wound: This 61-year-old diabetic male with comorbidities including diabetes and history of foot ulcerations. His left hallux wound has been open again for several months. He denies any specific trauma or has any specific idea why this reopened. He has difficulty offloading this site. He is amenable to have epi fix, advanced wound healing product, applied today if it is approved by the insurance. He is at risk for limb loss. He is not amendable to have another left lower extremity total contact cast this next week. He denies redness or odor. He denies fever, chill, nausea, vomiting. He is not aware of his new ulcer to the left heel and denies injury or known onset. He also refuses to participate in treatment plan for the right lower extremity injury and states 'what can we do to fix this right side after the left foot heals'. Progress of Wound: improving Objective Data Objective Data Vital Signs: Vital Signs Temp Pulse Resp BP 96.9 F L 92 20 H 143/81 H 10/18/21 14:16 10/18/21 14:16 10/11/21 15:34 10/18/21 14:16 Physical Exam Const alert and no apparent distress General Appearance: cooperative and comfortable Extremity normal capillary refill and no calf tenderness General Extremity: edema bilateral lower extremity, no tenderness to palpation of joints or extremities and other findings Other Details: Capillary refill time less than 3 seconds noted to digits ; Negative for clubbing or cyanosis Peripheral Pulses: Yes posterior tibial pulses present bilateral diminished and dorsalis pedis pulses present bilateral diminished Skin General Skin Exam: atrophy and dry skin; Negative for ecchymosis, erythema, eschar, pallor or dermatitis Rashes: no rashes Wounds: wounds noted Wound Narrative: ulcer noted to left hallux plantar medial; decreased size. skin new discontinuity to plantar left heel without deep tissue exposure, infection, bogginess or fluctuance on palpation. no adjacent skin peeling or foreign body noted. This was identified after debridement superficial callus and blister. No malodor, erythema, purulence, probing to bone, streaking, fluctuation, crepitus, or other signs of infection. Skin is atrophic and hairless. Granular base ulcer plantar left hallux without deep tissue exposure or undermining or maceration; decreased size. There is a small peripheral callus decreased left hallux IPJ/MPJ ROM Psych Appearance: appropriate Attitude: calm Debridement Note Debridement Note Wound debrided: plantar left hallux, plantar left heel Wound Grade/Stage: 1,2 Type of Debridement: Excisional debridement Anesthesia Used: 4% Lidocaine Solution Depth: in the subcutaneous layer Percentage of wound debrided: 100 Instrument Used: #15 blade Tissue Removed: fibrous, devitalized subcutaneous, biofilm, slough Severity: Fat Layer Exposed Amount of bleeding with debridement: Mild Bleeding Controlled with: Pressure Patient tolerated procedure: Patient tolerated procedure well Post-Debridement Measurements and Additional Note: Post-Debridement Measurements/Treatment - Nurse 1 - General Ulcer Assessment Start: 10/05/21 12:03 Freq: Status: Active Protocol: ARIELLE Activity Type Activity Date Activity User E-sign Co-sign Detail Recorded Client Recorded Date Recorded By Document 10/05/21 12:04 MICHAEL [id number] 10/05/21 12:06 Document 10/11/21 15:34 DL [id number] 10/11/21 15:40 DL Document 10/18/21 14:16 AK [id number] 10/18/21 14:18 AK 10/05/21 10/11/21 10/18/21 12:04 15:34 14:16 - Today's Visit Information Type of service Nurse-only Follow-up Visit Follow-up Visit Visit (Physician/RIFLE CASE REPAIRER (Physician/RIFLE CASE REPAIRER ) ) Arrival Mode Ambulatory Ambulatory Ambulatory Transfer Assistance None Patient Identification Verified (Name & Yes Yes Yes ) Patient Requires Transmission-Based No No No Precautions Safety Precautions NA Finger Stick Blood Sugar(mg/dl) (if 132 indicated): Blood Sugar Stated by Patient Vital Signs Temperature (97.8 F-99.1 F) 96.5 F L 96.9 F L Temperature Source Temporal Temporal Pulse Rate (60-100) 81 82 92 Pulse Location Monitor Monitor Monitor Respiratory Rate (12-18) 16 20 H Respiratory rate source Observation Observation Blood Pressure (90/60-120/80) 175/95 H 146/76 H 143/81 H Blood Pressure Mean (mm Hg) 121 99 101 Source Monitor Monitor Monitor Position Sitting Blood Pressure Location Right Arm History Since Last Visit- (Skip if this is Patient's initial visit) Have you changed medications since your No No last visit? Any new allergies or adverse reactions No No Had a fall/change in ADL's that may No No increase risk of falls Signs or symptoms of abuse and/or No No neglect since last visit Have you been in the hospital since your Yes No last visit? Has dressing in place as prescribed Yes Yes Has compression in place as prescribed N/A N/A Has offloadiing in place as prescribed Yes N/A Experienced any changes in pain level or No management Left Footwear Removable Cast Regular Shoe Walker/Walking Boot Right Footwear Regular Shoe Pain Scale: 0-10 Numeric Is Patient Pain Free? Yes Yes No WC - Nurse 1 - General Ulcer Measurement Start: 10/05/21 12:03 Freq: Status: Active Protocol: Activity Type Activity Date Activity User E-sign Co-sign Detail Recorded Client Recorded Date Recorded By Document 10/05/21 12:04 MICHAEL [id number] 10/05/21 12:06 Document 10/11/21 15:34 DL [id number] 10/11/21 15:40 DL Document 10/18/21 14:16 AK [id number] 10/18/21 14:18 AK 10/05/21 10/11/21 10/18/21 12:04 15:34 14:16 Wound Center Nurse 1 #5- L HALLUX PLANTAR -Combined with other wound No No -Current Size (cm) - Length 0.6 0.7 1 -Current Size (cm) - Width 0.6 0.6 0.8 -Current Size (cm) - Depth 0.1 0.3 0.1 -Total Square Cm 0.36 0.42 0.8 -Date of Last Picture (Recall this 10/18/21 field) -Photo Taken No No Yes -Epithelialization Small 1-33% None Present -Tunneling No No -Undermining/Tunneling No No -Undermining/Tunneling Starts (O'clock 1 ) -Undermining/Tunneling Ends (O'clock) 4 -Maximum Distance (cm) 0.3 -Circular Undermining No No -Change in Wound Grade/Stage No -Exudate Amt Small Small Small -Exudate Type Serosanguineous Serosanguineous Serosanguineous -Wound Margin Flat & Intact Thickened Distinct, Outline Attached -Granulation Amt Large (67-100%) Large (67-100%) None Present (0 %) -Granulation Quality [place] N/A -Slough/Fibrin Yes Yes -Necrosis Amt Small (1-33%) Small (1-33%) Small (1-33%) -Necrotic Tissue Type Eschar Adherent Slough Adherent Slough -Structure Exposed N/A N/A N/A -Texture (Brittany-wound Skin Appearance) Assessed Callus,Scarring Assessed,Callus -Moisture (Brittany-wound Skin Appearance) Assessed,Dry/ No Abnormality No Abnormality, Scaly Assessed -Color (Brittany-wound Skin Appearance) Assessed No Abnormality No Abnormality, Assessed -Temperature (Brittany-wound Skin No Abnormality No Abnormality No Abnormality Appearance) (Pt Warm) (Pt Warm) (Pt Warm) -Tenderness on Palpation (Brittany-wound No No No Skin Appearance) -Ulcer Cleansing Rinsed/ Rinsed/ Rinsed/ Irrigated with Irrigated with Irrigated with Saline Saline Saline -Foul Odor after Cleansing No No No -Anesthetic Used 5% Lidocaine 4% Lidocaine Gel Solution Lower Limb Edema Present NA WC - Nurse 2 - General Ulcer CM Notes Start: 10/05/21 12:03 Freq: Status: Active Protocol: Activity Type Activity Date Activity User E-sign Co-sign Detail Recorded Client Recorded Date Recorded By Document 10/11/21 16:00 [id number] 10/16/21 15:41 Document 10/18/21 14:48 [id number] 10/18/21 14:54 10/11/21 10/18/21 16:00 14:48 Wound Center Nurse 2 6-left heel -Time 14:53 -Correct Patient Yes -Correct Side, Site, Position Yes -Correct Procedure Yes -Procedure Performed Yes -Type of Procedure Debridement -Clinical Debridement Subcutaneous -Tissue Removed Subcutaneous -Post Debridement (cm) - Length 0.4 -Post Debridement (cm) - Width 0.8 -Post Debridement (cm) - Depth 0.1 -Total Square (Post) (cm) 0.32 -Area of Debridement (cm) - Length 0.4 -Area of Debridement (cm) - Width 0.8 -Total Square (Area) (cm) 0.32 -Tunneling No -Undermining/Tunneling No -Circular Undermining No -Wound/Ulcer Outcome Not Healed -Ulcer Cleansing Rinsed/ Irrigated with Saline -Foul Odor after Cleansing No -Bioengineered Tissue No -Bleeding Controlled with Pressure -Treatment Response Procedure Tolerated Well -Offloading Yes -Type of Offloading Camwalker -Debridement - Subq, 1st 20sq cm Yes #5- L HALLUX PLANTAR -Time 15:39 14:49 -Correct Patient Yes Yes -Correct Side, Site, Position Yes Yes -Correct Procedure Yes Yes -Procedure Performed Yes Yes -Type of Procedure Debridement Debridement -Clinical Debridement Subcutaneous Subcutaneous -Tissue Removed Subcutaneous Subcutaneous -Post Debridement (cm) - Length 0.8 1.0 -Post Debridement (cm) - Width 0.6 0.7 -Post Debridement (cm) - Depth 0.3 0.1 -Total Square (Post) (cm) 0.48 0.70 -Area of Debridement (cm) - Length 0.8 1 -Area of Debridement (cm) - Width 0.6 0.7 -Total Square (Area) (cm) 0.48 0.7 -Tunneling No No -Undermining/Tunneling No No -Circular Undermining No No -Wound/Ulcer Outcome Not Healed Not Healed -Ulcer Cleansing Rinsed/ Rinsed/ Irrigated with Irrigated with Saline Saline -Foul Odor after Cleansing No No -Bioengineered Tissue Yes Yes -Type of Bioengineered Tissue Epifix 18mm Epifix 18mm Disc Disc -Expiration Date 07/04/26 07/04/26 -Product Lot Number [id number] -Percent Used 100 100 -Lot number of Saline Used [id number] -Bleeding Controlled with Pressure Pressure -Treatment Response Procedure Procedure Tolerated Well Tolerated Well -Offloading Yes Yes -Type of Offloading Camwalker Surgical Shoe -Debridement - Subq, 1st 20sq cm No No -Apply Skin Sub - 1st 25 sq cm - Feet 1 1 -Epifix 18mm Disc 3 3 Pain Scale: 0-10 Numeric Is Patient Pain Free? Yes Yes - Nurse 3 - General Ulcer D/C NN Start: 10/05/21 12:03 Freq: Status: Active Protocol: Activity Type Activity Date Activity User E-sign Co-sign Detail Recorded Client Recorded Date Recorded By Document 10/05/21 12:04 MICHAEL [id number] 10/05/21 12:06 Document 10/18/21 15:00 [facility] [id number] 10/18/21 15:01 [facility] 10/05/21 10/18/21 12:04 15:00 Vital Signs Pulse Rate (60-100) 81 Pulse Location Monitor Respiratory Rate (12-18) 16 Respiratory rate source Observation Blood Pressure (90/60-120/80) 175/95 H Blood Pressure Mean (mm Hg) 121 Source Monitor Position Sitting Blood Pressure Location Right Arm Pain Scale: 0-10 Numeric Is Patient Pain Free? Yes Yes Wound Care Nurse 3 6-left heel -Primary Dressing Applied Other -Other Dressing hydrogel -Primary Dressing Covered/Secured with Dry Gauze, Secured with Tape -Other Covering drsg per clifford freemann #5- L HALLUX PLANTAR -Ulcer Cleansing Rinsed/ Irrigated with Saline -Foul Odor after Cleansing No -Primary Dressing Applied C Hydrogel ($) -Other Dressing epifix -Primary Dressing Covered/Secured with Dry Gauze Dry Gauze,Other -Other Covering COBAN secured w/ coban; drsg per clifford martinez Treatment Response Procedure Tolerated Well WC - Visit Discharge Discharge Condition Stable Stable Ambulatory Status Ambulatory Ambulatory Transportation Private Auto Private Auto Medication Reconcilliation completed & Yes provided to patient/care provider Clinical Summary of Care Provided Yes Notes: CAM WALKER Assessment/Plan Assessment/Plan (1) Type 2 diabetes mellitus with diabetic polyneuropathy: CODE(S): E11.42 - Type 2 diabetes mellitus with diabetic polyneuropathy QUALIFIERS: 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 treater 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 insulin use: with group home use Qualified Code(s): E11.42 - Type 2 diabetes mellitus with diabetic polyneuropathy; Z79.4 - [facility] (current) use of insulin (2) Chronic ulcer of left foot with fat layer exposed: CODE(S): L97.522 - Non-pressure chronic ulcer of other part of left foot with fat layer exposed (3) Acquired hallux limitus of left foot: CODE(S): M20.5X2 - Other deformities of toe(s) (acquired), left foot (4) Delayed wound healing: CODE(S): T14.8XXD - Other injury of unspecified body region, subsequent encounter (5) Localized edema: CODE(S): R60.0 - Localized edema (6) Achilles rupture, right: CODE(S): S86.011A - Strain of right Achilles tendon, initial encounter PLAN: Plan I reviewed and discussed his case today. Debridement was performed today as noted in the clinical panel to all of the ulcer site. New ulcer site is noted. The following work up and care recommendations were made: Dressing: dressing was applied secondary after epifix was applied Wash: The ulcer was washed with soap and water Tissue growth optimization: I recommend advanced wound healing product, epi fix which is placental derived tissue. Prior authorization with insurance will be started. Is medically necessary for wound healing. This is a chronic wound and he is demonstrating delayed healing. He is at risk for continued limb loss and recurrent infections. The indications benefits anticipated application and management were reviewed in detail. This was applied (epi fix advanced wound healing product) according to standard protocol. The epi fix was secured in place with a wound veil and Steri-Strips. He tolerated this well. He was advised to keep this clean, dry, and intact along with his total contact cast until follow-up next week. Offload: cast will be reapplied next week and it is noted he refuses cast today. to resume cam walker use this upcoming week and keep weight on heel and use assistive device. site: heel Vascular: He had noninvasive vascular studies performed in October 2020 without any gross abnormalities. He had bilateral triphasic waveforms and normal PVRs. His right ABIs were 1.12 and 1.25 and left was 1.16 and 1.13. Edema: The total contact cast will also aid in edema reduction. To elevate Infection: He was reassured no local signs of infection are noted. To monitor. Pain: This is currently controlled today his neuropathic status Host factors: He has diabetes and this may contribute to delays in healing. He has prior improvement hemoglobin A1c's are noted. I recommend nutritional supplementation to optimize healing including Denis. It is also noted he has a ruptured contralateral limb Achilles in which she has not been wearing the Achilles wedge boot. He was advised to do so and to use an assistive walking device such as a walker or wheelchair given that he is also now in a left total contact cast. He understands significant dysfunction of the right lower extremity is possible if this Achilles not healing and approximated manner. He also understands he is currently not a surgical candidate due to his elevation in glucose levels for right Achilles rupture repair or Mixon curative surgical arthroplasty of the left foot. Diagnostic data: I recommend updating CMP, CBC, and A1c. Lab order was given. His last A1c on file was from 10-10-2020; 8.9%. He had his labs drawn however there was a reported lab error and he has to get this done again. He has a neglected achilles rupture of the right lower extremity. We discussed this at length again today. It is apparent he has not been compliant and struggles with all of the offloading recommendations bilateral. Immobilization with plantarflexion position is recommeded for several months. Surgical repair is also an option but not recommended due to his inability to maintain compliance and also his poor glucose management indications a higher chance of a poor outcome. I answered all the patient's questions. To return to the wound healing center in 1 week or call sooner if the patient has any questions or concerns. Note: [employer] speech recognition miniature train driver software was used to create portions of this document. Sound-alike and misspelled words, as well as other miniature train driver errors may be contained in the documentation. 13 minutes was spent on this encounter. This included face to face and non face to face care including preparing for the visit, reviewing the history, performing the exam, counseling and providing education to the patient, family, or caregiver, ordering medications/test/ procedures if indicated as documented, communicating with other healthcare providers, documenting information in the medical record, interpreting / sharing this information when indicated as documented, and care coordination.
[2021-11-01 14:04] VITALS: BP 136/72; PULSE 75; RESP 18; TEMP 36.8
--- NOTE | 2021-11-01 15:18 | PN.PCM_ITS ---
History of Present Illness Date of Service: 11/01/21 Chief Complaint: Left great toe ulcer and also ruptured right achilles tendon injury follow up left heel ulcer History of Wound: This 61-year-old diabetic male with comorbidities including diabetes and history of foot ulcerations. His left hallux wound has been open again for several months. He denies any specific trauma or has any specific idea why this reopened. He has difficulty offloading this site. He is amenable to have epi fix, advanced wound healing product. He is at risk for limb loss. He is not amendable to have another left lower extremity total contact cast this next week and will consider it next week. He denies redness o r odor. He denies fever, chill, nausea, vomiting. He is not aware of his new ulcer to the left heel and denies injury or known onset. He also refuses to participate in treatment plan for the right lower extremity injury. He is now concerned due to lack of limb control and wants to confirm the amount of damage; he would like to discuss additional work up options at this time. His date of injury of the right achilles tendon was 07/15/2021. He has failed conservative care including rest, activity modification, immobilization attempt, compression, and elevation. An xray was previously obtained on 07/25/21 at [facility]. Progress of Wound: improving Objective Data Objective Data Vital Signs: Vital Signs Temp Pulse Resp BP 98.3 F 75 18 136/72 H 11/01/21 14:04 11/01/21 14:04 11/01/21 14:04 11/01/21 14:04 Physical Exam Const alert and no apparent distress General Appearance: cooperative and comfortable Extremity normal capillary refill and no calf tenderness General Extremity: edema bilateral lower extremity, no tenderness to palpation of joints or extremities and other findings Other Details: Capillary refill time less than 3 seconds noted to digits Skin General Skin Exam: Negative for ecchymosis or erythema Rashes: no rashes Wounds: wounds noted Wound Narrative: ulcer noted to left hallux plantar medial; decreased size. skin new di scontinuity to plantar left heel without deep tissue exposure, infection, bogginess or fluctuance on palpation. this has decreased size. no adjacent skin peeling or foreign body noted. No malodor, erythema, purulence, probing to bone, streaking, fluctuation, crepitus, or other signs of infection. Skin is atrophic and hairless. Granular base ulcer plantar left hallux without deep tissue exposure or undermining or maceration; decreased size. There is a small peripheral callus decreased left hallux IPJ/MPJ ROM right lower extremity: neg barbara and giles sign. no skin tending. palpable del to achilles proximal to insertion on calcaneus, local edema. no pain to palpate achilles. weakness with plantarflexion and normal strength with inversion, eversion, and dorsiflexion. lack of plantarflexion with calf squeeze compared to contralateral limb (bansal test). no pain to palpate ankle joint, medial or lateral malleolus, peroneal or posterior tibialis tendon Neuro Neuro Narrative: lack of epicritic sensation via light touch is consistent with neuropathy status Psych Appearance: appropriate Attitude: calm Debridement Note Debridement Note Wound debrided: plantar left hallux, plantar left heel Wound Grade/Stage: 1,1 Type of Debridement: Excisional debridement Anesthesia Used: 4% Lidocaine Solution Depth: in the subcutaneous layer Percentage of wound debrided: 100 Instrument Used: #15 blade Tissue Removed: fibrous, devitalized subcutaneous, biofilm, slough Severity: Fat Layer Exposed Amount of bleeding with debridement: Mild Bleeding Controlled with: Pressure Patient tolerated procedure: Patient tolerated procedure well Post-Debridement Measurements and Additional Note: Post-Debridement Measurements/Treatment - Nurse 1 - General Ulcer Assessment Start: 10/05/21 12:03 Freq: Status: Active Protocol: MELANY.LOWEXT Activity Type Activity Date Activity User E-sign Co-sign Detail Recorded Client Recorded Date Recorded By Document 10/05/21 12:04 [id number] 10/05/21 12:06 Document 10/11/21 15:34 [id number] 10/11/21 15:40 DL Document 10/18/21 14:16 AK [id number] 10/18/21 14:18 AK Document 11/01/21 14:04 DL [id number] 11/01/21 14:12 DL 10/05/21 10/11/21 10/18/21 12:04 15:34 14:16 - Today's Visit Information Type of service Nurse-only Follow-up Visit Follow-up Visit Visit (Physician/FURNACE CHECKER (Physician/FURNACE CHECKER ) ) Arrival Mode Ambulatory Ambulatory Ambulatory Transfer Assistance None Patient Identification Verified (Name & Yes Yes Yes ) Patient Requires Transmission-Based No No No Precautions Safety Precautions NA Finger Stick Blood Sugar(mg/dl) (if 132 indicated): Blood Sugar Stated by Patient Vital Signs Temperature (97.8 F-99.1 F) 96.5 F L 96.9 F L Temperature Source Temporal Temporal Pulse Rate (60-100) 81 82 92 Pulse Location Monitor Monitor Monitor Respiratory Rate (12-18) 16 20 H Respiratory rate source Observation Observation Blood Pressure (90/60-120/80) 175/95 H 146/76 H 143/81 H Blood Pressure Mean (mm Hg) 121 99 101 Source Monitor Monitor Monitor Position Sitting Blood Pressure Location Right Arm History Since Last Visit- (Skip if this is Patient's initial visit) Have you changed medications since your No No last visit? Any new allergies or adverse reactions No No Had a fall/change in ADL's that may No No increase risk of falls Signs or symptoms of abuse and/or No No neglect since last visit Have you been in the hospital since your Yes No last visit? Has dressing in place as prescribed Yes Yes Has compression in place as prescribed N/A N/A Has offloadiing in place as prescribed Yes N/A Experienced any changes in pain level or No management Left Footwear Removable Cast Regular Shoe Walker/Walking Boot Right Footwear Regular Shoe Pain Scale: 0-10 Numeric Is Patient Pain Free? Yes Yes No 11/01/21 14:04 - Today's Visit Information Type of service Follow-up Visit (Physician/FURNACE CHECKER ) Arrival Mode Ambulatory Transfer Assistance None Patient Identification Verified (Name & Yes ) Patient Requires Transmission-Based No Precautions Safety Precautions Finger Stick Blood Sugar(mg/dl) (if 135 indicated): Blood Sugar Stated by Patient Vital Signs Temperature (97.8 F-99.1 F) 98.3 F Temperature Source Temporal Pulse Rate (60-100) 75 Pulse Location Monitor Respiratory Rate (12-18) 18 Respiratory rate source Observation Blood Pressure (90/60-120/80) 136/72 H Blood Pressure Mean (mm Hg) 93 Source Monitor Position Blood Pressure Location History Since Last Visit- (Skip if this is Patient's initial visit) Have you changed medications since your No last visit? Any new allergies or adverse reactions No Had a fall/change in ADL's that may No increase risk of falls Signs or symptoms of abuse and/or No neglect since last visit Have you been in the hospital since your No last visit? Has dressing in place as prescribed Yes Has compression in place as prescribed Has offloadiing in place as prescribed No Experienced any changes in pain level or No management Left Footwear Removable Cast Walker/Walking Boot Right Footwear Pain Scale: 0-10 Numeric Is Patient Pain Free? Yes WC - Nurse 1 - General Ulcer Measurement Start: 10/05/21 12:03 Freq: Status: Active Protocol: Activity Type Activity Date Activity User E-sign Co-sign Detail Recorded Client Recorded Date Recorded By Document 10/05/21 12:04 JF [id number] 10/05/21 12:06 JF Document 10/11/21 15:34 DL [id number] 10/11/21 15:40 DL Document 10/18/21 14:16 AK [id number] 10/18/21 14:18 AK Document 11/01/21 14:04 DL [id number] 11/01/21 14:12 DL 10/05/21 10/11/21 10/18/21 12:04 15:34 14:16 Wound Center Nurse 1 6-left heel -Current Size (cm) - Length -Current Size (cm) - Width -Current Size (cm) - Depth -Total Square Cm -Photo Taken -Circular Undermining -Exudate Amt -Wound Margin -Granulation Amt -Granulation Quality -Structure Exposed -Texture (Brittany-wound Skin Appearance) -Moisture (Brittany-wound Skin Appearance) -Color (Brittany-wound Skin Appearance) -Temperature (Brittany-wound Skin Appearance) -Tenderness on Palpation (Brittany-wound Skin Appearance) -Ulcer Cleansing -Foul Odor after Cleansing -Anesthetic Used #5- L HALLUX PLANTAR -Combined with other wound No No -Current Size (cm) - Length 0.6 0.7 1 -Current Size (cm) - Width 0.6 0.6 0.8 -Current Size (cm) - Depth 0.1 0.3 0.1 -Total Square Cm 0.36 0.42 0.8 -Date of Last Picture (Recall this 10/18/21 field) -Photo Taken No No Yes -Epithelialization Small 1-33% None Present -Tunneling No No -Undermining/Tunneling No No -Undermining/Tunneling Starts (O'clock 1 ) -Undermining/Tunneling Ends (O'clock) 4 -Maximum Distance (cm) 0.3 -Circular Undermining No No -Change in Wound Grade/Stage No -Exudate Amt Small Small Small -Exudate Type Serosanguineous Serosanguineous Serosanguineous -Wound Margin Flat & Intact Thickened Distinct, Outline Attached -Granulation Amt Large (67-100%) Large (67-100%) None Present (0 %) -Granulation Quality [place] N/A -Slough/Fibrin Yes Yes -Necrosis Amt Small (1-33%) Small (1-33%) Small (1-33%) -Necrotic Tissue Type Eschar Adherent Slough Adherent Slough -Structure Exposed N/A N/A N/A -Texture (Brittany-wound Skin Appearance) Assessed Callus,Scarring Assessed,Callus -Moisture (Brittany-wound Skin Appearance) Assessed,Dry/ No Abnormality No Abnormality, Scaly Assessed -Color (Brittany-wound Skin Appearance) Assessed No Abnormality No Abnormality, Assessed -Temperature (Brittany-wound Skin No Abnormality No Abnormality No Abnormality Appearance) (Pt Warm) (Pt Warm) (Pt Warm) -Tenderness on Palpation (Brittany-wound No No No Skin Appearance) -Ulcer Cleansing Rinsed/ Rinsed/ Rinsed/ Irrigated with Irrigated with Irrigated with Saline Saline Saline -Foul Odor after Cleansing No No No -Anesthetic Used 5% Lidocaine 4% Lidocaine Gel Solution Lower Limb Edema Present NA 11/01/21 14:04 Wound Center Nurse 1 6-left heel -Current Size (cm) - Length 0.1 -Current Size (cm) - Width 0.1 -Current Size (cm) - Depth 0.1 -Total Square Cm 0.01 -Photo Taken No -Circular Undermining No -Exudate Amt None Present -Wound Margin Thickened -Granulation Amt Large (67-100%) -Granulation Quality Pale -Structure Exposed N/A -Texture (Brittany-wound Skin Appearance) Callus -Moisture (Brittany-wound Skin Appearance) No Abnormality -Color (Brittany-wound Skin Appearance) No Abnormality -Temperature (Brittany-wound Skin No Abnormality Appearance) (Pt Warm) -Tenderness on Palpation (Brittany-wound No Skin Appearance) -Ulcer Cleansing Rinsed/ Irrigated with Saline -Foul Odor after Cleansing No -Anesthetic Used 5% Lidocaine Gel #5- L HALLUX PLANTAR -Combined with other wound -Current Size (cm) - Length 0.6 -Current Size (cm) - Width 0.4 -Current Size (cm) - Depth 0.2 -Total Square Cm 0.24 -Date of Last Picture (Recall this field) -Photo Taken No -Epithelialization -Tunneling -Undermining/Tunneling -Undermining/Tunneling Starts (O'clock 12 ) -Undermining/Tunneling Ends (O'clock) 4 -Maximum Distance (cm) 0.2 -Circular Undermining -Change in Wound Grade/Stage -Exudate Amt Small -Exudate Type Serosanguineous -Wound Margin Thickened -Granulation Amt Small (1-33%) -Granulation Quality [place] -Slough/Fibrin -Necrosis Amt Small (1-33%) -Necrotic Tissue Type Adherent Slough -Structure Exposed N/A -Texture (Brittany-wound Skin Appearance) Scarring -Moisture (Brittany-wound Skin Appearance) Maceration -Color (Brittany-wound Skin Appearance) Assessed -Temperature (Brittany-wound Skin No Abnormality Appearance) (Pt Warm) -Tenderness on Palpation (Brittany-wound Skin Appearance) -Ulcer Cleansing Rinsed/ Irrigated with Saline -Foul Odor after Cleansing Yes, Due to Product Use -Anesthetic Used 5% Lidocaine Gel Lower Limb Edema Present - Nurse 2 - General Ulcer CM Notes Start: 10/05/21 12:03 Freq: Status: Active Protocol: Activity Type Activity Date Activity User E-sign Co-sign Detail Recorded Client Recorded Date Recorded By Document 10/11/21 16:00 [id number] 10/16/21 15:41 Document 10/18/21 14:48 [id number] 10/18/21 14:54 10/11/21 10/18/21 16:00 14:48 Wound Center Nurse 2 6-left heel -Time 14:53 -Correct Patient Yes -Correct Side, Site, Position Yes -Correct Procedure Yes -Procedure Performed Yes -Type of Procedure Debridement -Clinical Debridement Subcutaneous -Tissue Removed Subcutaneous -Post Debridement (cm) - Length 0.4 -Post Debridement (cm) - Width 0.8 -Post Debridement (cm) - Depth 0.1 -Total Square (Post) (cm) 0.32 -Area of Debridement (cm) - Length 0.4 -Area of Debridement (cm) - Width 0.8 -Total Square (Area) (cm) 0.32 -Tunneling No -Undermining/Tunneling No -Circular Undermining No -Wound/Ulcer Outcome Not Healed -Ulcer Cleansing Rinsed/ Irrigated with Saline -Foul Odor after Cleansing No -Bioengineered Tissue No -Bleeding Controlled with Pressure -Treatment Response Procedure Tolerated Well -Offloading Yes -Type of Offloading Camwalker -Debridement - Subq, 1st 20sq cm Yes #5- L HALLUX PLANTAR -Time 15:39 14:49 -Correct Patient Yes Yes -Correct Side, Site, Position Yes Yes -Correct Procedure Yes Yes -Procedure Performed Yes Yes -Type of Procedure Debridement Debridement -Clinical Debridement Subcutaneous Subcutaneous -Tissue Removed Subcutaneous Subcutaneous -Post Debridement (cm) - Length 0.8 1.0 -Post Debridement (cm) - Width 0.6 0.7 -Post Debridement (cm) - Depth 0.3 0.1 -Total Square (Post) (cm) 0.48 0.70 -Area of Debridement (cm) - Length 0.8 1 -Area of Debridement (cm) - Width 0.6 0.7 -Total Square (Area) (cm) 0.48 0.7 -Tunneling No No -Undermining/Tunneling No No -Circular Undermining No No -Wound/Ulcer Outcome Not Healed Not Healed -Ulcer Cleansing Rinsed/ Rinsed/ Irrigated with Irrigated with Saline Saline -Foul Odor after Cleansing No No -Bioengineered Tissue Yes Yes -Type of Bioengineered Tissue Epifix 18mm Epifix 18mm Disc Disc -Expiration Date 07/04/26 07/04/26 -Product Lot Number [id number] -Percent Used 100 100 -Lot number of Saline Used [id number] -Bleeding Controlled with Pressure Pressure -Treatment Response Procedure Procedure Tolerated Well Tolerated Well -Offloading Yes Yes -Type of Offloading Camwalker Surgical Shoe -Debridement - Subq, 1st 20sq cm No No -Apply Skin Sub - 1st 25 sq cm - Feet 1 1 -Epifix 18mm Disc 3 3 Pain Scale: 0-10 Numeric Is Patient Pain Free? Yes Yes WC - Nurse 3 - General Ulcer D/C NN Start: 10/05/21 12:03 Freq: Status: Active Protocol: Activity Type Activity Date Activity User E-sign Co-sign Detail Recorded Client Recorded Date Recorded By Document 10/05/21 12:04 [id number] 10/05/21 12:06 Document 10/18/21 15:00 [facility] [id number] 10/18/21 15:01 [facility] Document 11/01/21 15:13 NV [id number] 11/01/21 15:15 NV 10/05/21 10/18/21 11/01/21 12:04 15:00 15:13 Vital Signs Pulse Rate (60-100) 81 Pulse Location Monitor Respiratory Rate (12-18) 16 Respiratory rate source Observation Blood Pressure (90/60-120/80) 175/95 H Blood Pressure Mean (mm Hg) 121 Source Monitor Position Sitting Blood Pressure Location Right Arm Pain Scale: 0-10 Numeric Is Patient Pain Free? 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 #5- L HALLUX PLANTAR -Ulcer Cleansing Rinsed/ Irrigated with Saline -Foul Odor after Cleansing No No -Negative Pressure Wound Therapy N/A -Primary Dressing Applied C Hydrogel ($) -Other Dressing epifix -Primary Dressing Covered/Secured with Dry Gauze Dry Gauze,Other Dry Gauze & Roll Gauze, Secured with Tape -Other Covering [place] secured w/ coban; drsg per [place] 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 driver Left -Tubular Bandage Single Layer -Size of Tubigrip Used Size F -Size F ($) 1 Treatment Response Procedure Tolerated Well WC - Visit Discharge Discharge Condition Stable Stable Stable Ambulatory Status Ambulatory Ambulatory Ambulatory Transportation Private Auto Private Auto Private Auto Medication Reconcilliation completed & Yes Yes provided to patient/care provider Clinical Summary of Care Provided Yes Yes Notes: CAM WALKER Assessment/Plan Assessment/Plan (1) Type 2 diabetes mellitus with diabetic polyneuropathy: CODE(S): E11.42 - Type 2 diabetes mellitus with diabetic polyneuropathy 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: with group home use Qualified Code(s): E11.42 - Type 2 diabetes mellitus with diabetic polyneuropathy; Z79.4 - penitentiary (current) use of insulin (2) Chronic ulcer of left foot with fat layer exposed: CODE(S): L97.522 - Non-pressure chronic ulcer of other part of left foot with fat layer exposed (3) Acquired hallux limitus of left foot: CODE(S): M20.5X2 - Other deformities of toe(s) (acquired), left foot (4) Delayed wound healing: CODE(S): T14.8XXD - Other injury of unspecified body region, subsequent encounter (5) Localized edema: CODE(S): R60.0 - Localized edema (6) Achilles rupture, right: CODE(S): S86.011A - Strain of right Achilles tendon, initial encounter PLAN: Plan I reviewed and discussed his case today. Debridement was performed today as noted in the clinical panel to all of the ulcer sites. The following work up and care recommendations were made: Dressing: dressing was applied secondary after epifix was applied to hallux of left foot. change left heel dressing daily with hydrogel Wash: The ulcer was washed with soap and water Tissue growth optimization: I recommend advanced wound healing product, epi fix which is placental derived tissue. Prior authorization with insurance will be started. Is medically necessary for wound healing. This is a chronic wound and he is demonstrating delayed healing. He is at risk for continued limb loss and recurrent infections. The indications benefits anticipated application and management were reviewed in detail. This was applied (epi fix advanced wound healing product) according to standard protocol. The epi fix was secured in place with a wound veil and Steri-Strips. He tolerated this well. He was ad vised to keep this clean, dry, and intact along with his total contact cast until follow-up next week. Offload: cast will be reapplied next week and it is noted he refuses cast today; he will consider this next week. to resume cam walker use this upcoming week and keep weight on heel and use assistive device. site: heel Vascular: He had noninvasive vascular studies performed in October 2020 without any gross abnormalities. He had bilateral triphasic waveforms and normal PVRs. His right ABIs were 1.12 and 1.25 and left was 1.16 and 1.13. Edema: The total contact cast will also aid in edema reduction. To elevate Infection: He was reassured no local signs of infection are noted. To monitor. Pain: This is currently controlled today his neuropathic status Host factors: He has diabetes and this may contribute to delays in healing. He has prior improvement hemoglobin A1c's are noted. I recommend nutritional supplementation to optimize healing including Denis. Diagnostic data: I recommend updating CMP, CBC, and A1c. Lab order was given. His last A1c on file was from 10-10-2020; 8.9%. He had his labs drawn however there was a reported lab error and he has to get this done again. Right lower extremity injury: onset date 07/15/21. [facility] without fracture or dislocation. The ankle mortise is well aligned in rectus position and there is no posterior calcaneus spur. The kager's triagle is not well visualized which suggests achilles disruption. It is noted he has a ruptured right lower limb Achilles in which he has not been wearing the Achilles wedge boot. He was advised to do so and to use an assistive walking device such as a walker or wheelchair given that he is also now in a left total contact cast. He understands significant dysfunction of the right lower extremity is possible if this Achilles not healing and approximated manner. He also understands he is currently not a surgical candidate due to his elevation in glucose levels for right Achilles rupture repair. This is a neglected achilles rupture of the right lower extremity. We discussed this at length again today. It is apparent he has not been compliant and struggles with all of the offloading recommendations bilateral. I recommend right lower limb MRI to confirm the extent of his injury. This will affect his ongoing conservative versus surgical treatment recommendations and plan of care. This is medically necessary. Insurance prior authorization will be initated. I answered all the patient's questions. To return to the wound healing center in 1 week or call sooner if the patient has any questions or concerns. Note: Rijuven speech recognition marble rubber software was used to create portions of this document. Sound-alike and misspelled words, as well as other marble rubber errors may be contained in the documentation. 22 minutes was spent on this encounter. This included face to face and non face to face care including preparing for the visit, reviewing the history, performing the exam, counseling and providing education to the patient, family, or caregiver, ordering medications/test/ procedures if indicated as documented, communicating with other healthcare providers, documenting information in the medical record, interpreting / sharing this information when indicated as documented, and care coordination. The medical decision making level is limited based on data including the review of prior external notes, review of a prior test, or ordering a test.
== END 2021-11-02 23:59 | disposition home or self-care (01) ==
LOC: WC 14:00
PROVIDERS: PCP Internal Medicine Cardiovascular Disease; Visit Provider Podiatrist
DX: E11.621 Type 2 diabetes mellitus with foot ulcer (principal); L97.422 Non-pressure chronic ulcer of left heel and midfoot with fat layer exposed; L97.522 Non-pressure chronic ulcer of other part of left foot with fat layer exposed; E11.42 Type 2 diabetes mellitus with diabetic polyneuropathy; Z79.4 Long term (current) use of insulin; R60.0 Localized edema; S86.011D Strain of right Achilles tendon, subsequent encounter; X58.XXXD Exposure to other specified factors, subsequent encounter; M79.604 Pain in right leg
CPT/HCPCS: 11042; 15275; 99212; Q4186; G0463

== ENCOUNTER → 2021-11-17 | Outpatient (CLI) | payer MEDICARE, MEDICAID, SELFPAY ==
--- NOTE | 2021-11-17 12:53 | MRI_ITS ---
STUDY: MRI RIGHT ANKLE WITHOUT CONTRAST REASON FOR EXAM: Pain and lump in the Achilles tendon for 6 months. TECHNIQUE: Standardized fat and water weighted pulse sequences were obtained in all 3 orthogonal planes. COMPARISON: Radiographs 10/07/2020. FINDINGS: There is mild edema in the subcutis adipose space. There is a small volume of fluid in the distal posterior tibialis tendon sheath (T2 axial images 20, 21). The posterior tibialis tendon is morphologically normal. Normal flexor digitorum longus tendon. Normal flexor hallucis longus tendon. Normal peroneus longus and brevis tendons. Normal tibialis anterior tendon. Normal extensor hallucis longus tendon. Normal extensor digitorum longus tendons. There is a high-grade intrasubstance partial tear of the Achilles tendon approximately 1.7 cm proximal to the calcaneal insertion, the tear measures 4.2 cm in length (inversion recovery sagittal images 12-14; T2 coronal image 4; T2 axial images 13, 14) with tendinosis proximal to the tear corresponding to the skin marker measuring 1.7 cm in AP dimension. There is a small posterior calcaneal enthesophyte. There is mild plantar fasciitis of the central cord (inversion recovery sagittal images 13-15). There is a small plantar calcaneal enthesophyte. There is atrophy with partial fat replacement of the abductor digiti minimi muscle (T1 sagittal images 7, 8). Normal distal tibiofibular syndesmotic ligamentous complex. Normal lateral ligamentous complex. Normal subtalar ligaments and sinus tarsi. Normal deltoid ligamentous complexes. Normal plantar calcaneonavicular (spring) ligament. Normal tibiotalar articulation. Normal talar dome. Normal subtalar articulations. Normal talonavicular articulation. Normal calcaneocuboid articulation. Normal navicular-cuneiform articulations. MRI/Lower Ext Joint Only (Routine) IMPRESSION: Intrasubstance partial tear and tendinosis of the Achilles tendon. Mild posterior tibialis tenosynovitis. Mild plantar fasciitis. Atrophy of the abductor digiti minimi muscle. Electronically Signed: Brain De Los Santos MD at 14:08 EDT ,
== END | disposition home or self-care (01) ==
LOC: MRI 12:34
PROVIDERS: PCP Internal Medicine Cardiovascular Disease; Referring Provider Podiatrist; Visit Provider Podiatrist
DX: S86.011A Strain of right Achilles tendon, initial encounter (principal); M79.604 Pain in right leg
CPT/HCPCS: 73721

== ENCOUNTER 2021-11-29 14:30 | Outpatient (RCR) | payer MEDICARE, MEDICAID, SELFPAY ==
[2021-11-03 00:15] VITALS: BP 136/72; PULSE 75; RESP 18; TEMP 36.8
[2021-11-08 14:05] VITALS: BP 137/94; PULSE 87; RESP 16
--- NOTE | 2021-11-08 14:33 | PCM.WC.PN ---
History of Present Illness Date of Service: 11/08/21 Chief Complaint: Left great toe ulcer and also ruptured right achilles tendon injury follow up left heel ulcer History of Wound: This 61-year-old diabetic male with comorbidities including diabetes and history of foot ulcerations. His left hallux wound has been open again for several months. He denies any specific trauma or has any specific idea why this reopened. He has difficulty offloading this site. He is amenable to have epi fix, advanced wound healing product, applied today if it is approved by the insurance. He is at risk for limb loss. He is not amendable to have another left lower extremity total contact cast applied today even though it is difficulty for him to manage this. He denies redness or odor. He denies fever, chill, nausea, vomiting. He also has a right Achilles tendon rupture and reports he immobilizes about 80% of the time. He is in the process of getting his MRI scheduled. Progress of Wound: Healed left heel Improving left hallux ulcer Objective Data Objective Data Vital Signs: Vital Signs Temp Pulse Resp BP O2 Del Method 98.3 F 87 16 137/94 H Room Air 11/03/21 00:15 11/08/21 14:05 11/08/21 14:05 11/08/21 14:05 11/08/21 14:05 Oxygen Delivery Method Room Air Physical Exam Const alert and no apparent distress General Appearance: cooperative and comfortable Extremity normal capillary refill and no calf tenderness General Extremity: edema bilateral lower extremity, no tenderness to palpation of joints or extremities and other findings Other Details: Capillary refill time less than 3 seconds noted to digits Skin General Skin Exam: Negative for ecchymosis or erythema Rashes: no rashes Wounds: wounds noted Wound Narrative: ulcer noted to left hallux plantar medial; decreased size. skin discontinuity to plantar left heel is now healed with full epithelialization. no adjacent skin peeling or foreign body noted. No malodor, erythema, purulence, probing to bone, streaking, fluctuation, crepitus, or other signs of infection. Skin is atrophic and hairless. Granular base ulcer plantar left hallux without deep tissue exposure or undermining or maceration; decreased size. There is a small peripheral callus decreased left hallux IPJ/MPJ Range of motion right lower extremity (prior exam, not today): neg barbara and giles sign. no skin tending. palpable del to achilles proximal to insertion on calcaneus, local edema. no pain to palpate achilles. weakness with plantarflexion and normal strength with inversion, eversion, and dorsiflexion. lack of plantarflexion with calf squeeze compared to contralateral limb (bansal test). no pain to palpate ankle joint, medial or lateral malleolus, peroneal or posterior tibialis tendon Neuro Neuro Narrative: lack of epicritic sensation via light touch is consistent with neuropathy status Psych Appearance: appropriate Attitude: calm Debridement Note Debridement Note Wound debrided: plantar left hallux Wound Grade/Stage: 1 Type of Debridement: Excisional debridement Anesthesia Used: 4% Lidocaine Solution Depth: in the subcutaneous layer Percentage of wound debrided: 100 Instrument Used: #15 blade Tissue Removed: fibrous, devitalized subcutaneous, biofilm, slough Severity: Fat Layer Exposed Amount of bleeding with debridement: Mild Bleeding Controlled with: Pressure Patient tolerated procedure: Patient tolerated procedure well Post-Debridement Measurements and Additional Note: Post-Debridement Measurements/Treatment - Nurse 1 - General Ulcer Assessment Start: 11/08/21 14:03 Freq: Status: Active Protocol: [email or web address] Activity Type Activity Date Activity User E-sign Co-sign Detail Recorded Client Recorded Date Recorded By Document 11/08/21 14:05 [facility] [id number] 11/08/21 14:14 [facility] 11/08/21 14:05 - Today's Visit Information Type of service Follow-up Visit (Physician/FLOOR [facility]AXER ) Arrival Mode Ambulatory Transfer Assistance None Patient Identification Verified (Name & Yes ) Patient Requires Transmission-Based No Precautions Vital Signs Pulse Rate (60-100) 87 Pulse Location Monitor Respiratory Rate (12-18) 16 Respiratory rate source Observation Oxygen Delivery Method Room Air Blood Pressure (90/60-120/80) 137/94 H Blood Pressure Mean (mm Hg) 108 Source Monitor Position Sitting Blood Pressure Location Left Arm History Since Last Visit- (Skip if this is Patient's initial visit) Have you changed medications since your No last visit? Any new allergies or adverse reactions No Had a fall/change in ADL's that may No increase risk of falls Signs or symptoms of abuse and/or No neglect since last visit Have you been in the hospital since your No last visit? Has dressing in place as prescribed No Has compression in place as prescribed N/A Has offloadiing in place as prescribed Yes Experienced any changes in pain level or No management Left Footwear Removable Cast Walker/Walking Boot Right Footwear Regular Shoe Pain Scale: 0-10 Numeric Is Patient Pain Free? Yes WC - Nurse 1 - General Ulcer Measurement Start: 11/08/21 14:03 Freq: Status: Active Protocol: Activity Type Activity Date Activity User E-sign Co-sign Detail Recorded Client Recorded Date Recorded By Document 11/08/21 14:05 [facility] [id number] 11/08/21 14:14 [facility] 11/08/21 14:05 Wound Center Nurse 1 6-left heel -Combined with other wound No -Current Size (cm) - Length 0.1 -Current Size (cm) - Width 0.1 -Current Size (cm) - Depth 0.1 -Total Square Cm 0.01 -Date of Last Picture (Recall this 11/08/21 field) -Photo Taken Yes -Epithelialization Large 67-100% #5- L HALLUX PLANTAR -Combined with other wound No -Current Size (cm) - Length 0.7 -Current Size (cm) - Width 0.3 -Current Size (cm) - Depth 0.3 -Total Square Cm 0.21 -Date of Last Picture (Recall this 11/08/21 field) -Photo Taken Yes -Epithelialization None Present -Tunneling No -Undermining/Tunneling No -Circular Undermining No -Exudate Amt Large -Exudate Type Serosanguineous -Wound Margin Distinct, Outline Attached -Granulation Amt Large (67-100%) -Granulation Quality Red -Slough/Fibrin Yes -Necrosis Amt Small (1-33%) -Necrotic Tissue Type Adherent Slough -Texture (Brittany-wound Skin Appearance) Assessed, Scarring -Moisture (Brittany-wound Skin Appearance) Assessed, Maceration,Dry/ Scaly -Color (Brittany-wound Skin Appearance) Assessed,Palor -Temperature (Brittany-wound Skin No Abnormality Appearance) (Pt Warm) -Tenderness on Palpation (Brittany-wound No Skin Appearance) -Ulcer Cleansing Soap and Water -Foul Odor after Cleansing No -Anesthetic Used 5% Lidocaine Gel Assessment/Plan Assessment/Plan (1) Type 2 diabetes mellitus with diabetic polyneuropathy: CODE(S): E11.42 - Type 2 diabetes mellitus with diabetic polyneuropathy QUALIFIERS: Diabetes mellitus adjunct faculty for medical terminology insulin use: with longterm use Qualified Code(s): E11.42 - Type 2 diabetes mellitus with diabetic polyneuropathy; Z79.4 - half-way (current) use of insulin (2) Chronic ulcer of left foot with fat layer exposed: CODE(S): L97.522 - Non-pressure chronic ulcer of other part of left foot with fat layer exposed (3) Acquired hallux limitus of left foot: CODE(S): M20.5X2 - Other deformities of toe(s) (acquired), left foot (4) Delayed wound healing: CODE(S): T14.8XXD - Other injury of unspecified body region, subsequent encounter (5) Localized edema: CODE(S): R60.0 - Localized edema (6) Achilles rupture, right: CODE(S): S86.011A - Strain of right Achilles tendon, initial encounter PLAN: Plan I reviewed and discussed his case today. Debridement was performed today as noted in the clinical panel to all of the ulcer sites. Left heal ulcer has healed. The following work up and care recommendations were made: Dressing: dressing was applied secondary after epifix was applied to hallux of left foot. Wash: The ulcer was washed with soap and water Tissue growth optimization: I recommend advanced wound healing product, epi fix which is placental derived tissue. Prior authorization with insurance will be started. Is medically necessary for wound healing. This is a chronic wound and he is demonstrating delayed healing. He is at risk for continued limb loss and recurrent infections. The indications benefits anticipated application and management were reviewed in detail. This was applied (epi fix advanced wound healing product) according to standard protocol. The epi fix was secured in place with a wound veil and Steri-Strips. He tolerated this well. He was advised to keep this clean, dry, and intact along with his total contact cast until follow-up next week. Offload: A total contact cast was applied today after verbal consent and benefits and indications were reviewed. This was applied according to standard protocol in a neutral position in a well-padded manner. This was permitted to dry. This is medically necessary. He tolerated this well. He was advised keep this clean, dry, and intact until follow-up visit next week. To call if it gets wet or if he has any problems or irritations. Vascular: He had noninvasive vascular studies performed in October 2020 without any gross abnormalities. He had bilateral triphasic waveforms and normal PVRs. His right ABIs were 1.12 and 1.25 and left was 1.16 and 1.13. Edema: The total contact cast will also aid in edema reduction. To elevate Infection: He was reassured no local signs of infection are noted. To monitor. Pain: This is currently controlled today his neuropathic status Host factors: He has diabetes and this may contribute to delays in healing. He has prior improvement hemoglobin A1c's are noted. I recommend nutritional supplementation to optimize healing including Denis. Diagnostic data: I recommend updating CMP, CBC, and A1c. Lab order was given. His last A1c on file was from 10-10-2020; 8.9%. He had his labs drawn however there was a reported lab error and he has to get this done again. Right lower extremity injury: onset date 07/15/21. [facility]21 without fracture or dislocation. The ankle mortise is well aligned in rectus position and there is no posterior calcaneus spur. The kager's triagle is not well visualized which suggests achilles disruption. It is noted he has a ruptured right lower limb Achilles in which he has not been wearing the Achilles wedge boot. He was advised to do so and to use an assistive walking device such as a walker or wheelchair given that he is also now in a left total contact cast. He understands significant dysfunction of the right lower extremity is possible if this Achilles not healing and approximated manner. He also understands he is currently not a surgical candidate due to his elevation in glucose levels for right Achilles rupture repair. This is a neglected achilles rupture of the right lower extremity. We discussed this at length again today. It is apparent he has not been compliant and struggles with all of the offloading recommendations bilateral. I recommend right lower limb MRI to confirm the extent of his injury. This will affect his ongoing conservative versus surgical treatment recommendations and plan of care. This is medically necessary. To proceed forward with getting this scheduled. I answered all the patient's questions. To return to the wound healing center in 1 week or call sooner if the patient has any questions or concerns. Note: [employer] speech recognition kindergartner software was used to create portions of this document. Sound-alike and misspelled words, as well as other kindergartner errors may be contained in the documentation.
[2021-11-15 13:58] VITALS: BP 124/49; PULSE 77; RESP 16
--- NOTE | 2021-11-15 19:48 | PN.PCM_ITS ---
History of Present Illness Date of Service: 11/15/21 Chief Complaint: Left great toe ulcer and also ruptured right achilles tendon injury follow up History of Wound: This 61-year-old diabetic male with comorbidities including diabetes and history of foot ulcerations. His left hallux wound has been open again for several months. He denies any specific trauma or has any specific idea why this reopened. He has difficulty offloading this site. He is amenable to have epi fix, advanced wound healing product, applied today if it is approved by the insurance. He is at risk for limb loss. He is not amendable to have another left lower extremity total contact cast applied today even though it is difficulty for him to manage this. His cast was moving and he now has a wound to the front of his left leg. He denies redness or odor. He denies fever, chill, nausea, vomiting. He also has a right Achilles tendon rupture and reports he immobilizes about 80% of the time. He is in the process of getting his MRI scheduled for this upcoming Saturday. Progress of Wound: improving Objective Data Objective Data Vital Signs: Vital Signs Temp Pulse Resp BP O2 Del Method 98.3 F 77 16 124/49 H Room Air 11/03/21 00:15 11/15/21 13:58 11/15/21 13:58 11/15/21 13:58 11/15/21 13:58 Oxygen Delivery Method Room Air Physical Exam Const alert and no apparent distress General Appearance: cooperative and comfortable Extremity normal capillary refill and no calf tenderness General Extremity: edema bilateral lower extremity, no tenderness to palpation of joints or extremities and other findings Other Details: Capillary refill time less than 3 seconds noted to digits Skin General Skin Exam: Negative for ecchymosis or erythema Rashes: no rashes Wounds: wounds noted Wound Narrative: ulcer noted to left hallux plantar medial; decreased size. No malodor, erythema, purulence, probing to bone, streaking, fluctuation, cre pitus, or other signs of infection. Skin is atrophic and hairless. Granular base ulcer plantar left hallux without deep tissue exposure or undermining or maceration; decreased size. There is a small peripheral callus decreased left hallux IPJ/MPJ Range of motion right lower extremity (prior exam, not today): neg barbara and giles sign. no skin tending. palpable del to achilles proximal to insertion on calcaneus, local edema. no pain to palpate achilles. weakness with plantarflexion and normal strength with inversion, eversion, and dorsiflexion. lack of plantarflexion with calf squeeze compared to contralateral limb (bansal test). no pain to palpate ankle joint, medial or lateral malleolus, peroneal or posterior tibialis tendon Neuro Neuro Narrative: lack of epicritic sensation via light touch is consistent with neuropathy status Psych Appearance: appropriate Attitude: calm Debridement Note Debridement Note Wound debrided: plantar left hallux Wound Grade/Stage: 1 Type of Debridement: Excisional debridement Anesthesia Used: 4% Lidocaine Solution Depth: in the subcutaneous layer Percentage of wound debrided: 100 Instrument Used: #15 blade Tissue Removed: fibrous, devitalized subcutaneous, biofilm, slough Severity: Fat Layer Exposed Amount of bleeding with debridement: Mild Bleeding Controlled with: Pressure Patient tolerated procedure: Patient tolerated procedure well Post-Debridement Measurements and Additional Note: Post-Debridement Measurements/Treatment - Nurse 1 - General Ulcer Assessment Start: 11/08/21 14:03 Freq: Status: Active Protocol: ARIELLE Activity Type Activity Date Activity User E-sign Co-sign Detail Recorded Client Recorded Date Recorded By Document 11/08/21 14:05 [facility] [id number] 11/08/21 14:14 [facility] Document 11/15/21 13:58 [facility] [id number] 11/15/21 14:09 [facility] 11/08/21 11/15/21 14:05 13:58 - Today's Visit Information Type of service Follow-up Visit Follow-up Visit (Physician/GRAVITY FLOW IRRIGATOR (Physician/GRAVITY FLOW IRRIGATOR ) ) Arrival Mode Ambulatory Ambulatory Transfer Assistance None None Patient Identification Verified (Name & Yes Yes ) Patient Requires Transmission-Based No No Precautions Vital Signs Temperature Source Temporal Pulse Rate (60-100) 87 77 Pulse Location Monitor Monitor Respiratory Rate (12-18) 16 16 Respiratory rate source Observation Observation Oxygen Delivery Method Room Air Room Air Blood Pressure (90/60-120/80) 137/94 H 124/49 H Blood Pressure Mean (mm Hg) 108 74 Source Monitor Monitor Position Sitting Sitting Blood Pressure Location Left Arm Left Arm History Since Last Visit- (Skip if this is Patient's initial visit) Have you changed medications since your No No last visit? Any new allergies or adverse reactions No No Had a fall/change in ADL's that may No No increase risk of falls Signs or symptoms of abuse and/or No No neglect since last visit Have you been in the hospital since your No No last visit? Has dressing in place as prescribed No No Has compression in place as prescribed N/A N/A Has offloadiing in place as prescribed Yes No Experienced any changes in pain level or No No management Left Footwear Removable Cast Slipper Walker/Walking Boot Right Footwear Regular Shoe Slipper Other Footwear REMOVED TCC AT HOME PER SELF Pain Scale: 0-10 Numeric Is Patient Pain Free? Yes Yes WC - Nurse 1 - General Ulcer Measurement Start: 11/08/21 14:03 Freq: Status: Active Protocol: Activity Type Activity Date Activity User E-sign Co-sign Detail Recorded Client Recorded Date Recorded By Document 11/08/21 14:05 [facility] [id number] 11/08/21 14:14 [facility] Document 11/15/21 13:58 [facility] [id number] 11/15/21 14:09 [facility] 11/08/21 11/15/21 14:05 13:58 Wound Center Nurse 1 6-left heel -Combined with other wound No -Current Size (cm) - Length 0.1 -Current Size (cm) - Width 0.1 -Current Size (cm) - Depth 0.1 -Total Square Cm 0.01 -Date of Last Picture (Recall this 11/08/21 field) -Photo Taken Yes -Epithelialization Large 67-100% #7- L SHOOK -Combined with other wound No -Current Size (cm) - Length 1.8 -Current Size (cm) - Width 1 -Current Size (cm) - Depth 0.1 -Total Square Cm 1.8 -Date of Last Picture (Recall this 11/15/21 field) -Photo Taken Yes -Epithelialization None Present -Tunneling No -Undermining/Tunneling No -Circular Undermining No -Exudate Amt Small -Exudate Type Serous -Wound Margin Distinct, Outline Attached -Granulation Amt Large (67-100%) -Granulation Quality Red -Slough/Fibrin Yes -Necrosis Amt Small (1-33%) -Necrotic Tissue Type Adherent Slough -Texture (Brittany-wound Skin Appearance) Assessed, Scarring -Moisture (Brittany-wound Skin Appearance) Assessed -Color (Brittany-wound Skin Appearance) Assessed -Temperature (Brittany-wound Skin No Abnormality Appearance) (Pt Warm) -Tenderness on Palpation (Brittany-wound No Skin Appearance) -Ulcer Cleansing Rinsed/ Irrigated with Saline -Foul Odor after Cleansing No -Anesthetic Used 5% Lidocaine Gel #5- L HALLUX PLANTAR -Combined with other wound No No -Current Size (cm) - Length 0.7 0.3 -Current Size (cm) - Width 0.3 0.2 -Current Size (cm) - Depth 0.3 0.3 -Total Square Cm 0.21 0.06 -Date of Last Picture (Recall this 11/08/21 11/15/21 field) -Photo Taken Yes Yes -Epithelialization None Present Small 1-33% -Tunneling No No -Undermining/Tunneling No No -Circular Undermining No No -Exudate Amt Large Small -Exudate Type Serosanguineous Serosanguineous -Wound Margin Distinct, Distinct, Outline Outline Attached Attached -Granulation Amt Large (67-100%) Large (67-100%) -Granulation Quality Red Red -Slough/Fibrin Yes No -Necrosis Amt Small (1-33%) None Present (0 %) -Necrotic Tissue Type Adherent Slough -Texture (Brittany-wound Skin Appearance) Assessed, Assessed, Scarring Scarring -Moisture (Brittany-wound Skin Appearance) Assessed, Assessed, Maceration,Dry/ Maceration Scaly -Color (Brittany-wound Skin Appearance) Assessed,Palor Assessed,Palor -Temperature (Brittany-wound Skin No Abnormality No Abnormality Appearance) (Pt Warm) (Pt Warm) -Tenderness on Palpation (Brittany-wound No No Skin Appearance) -Ulcer Cleansing Soap and Water Rinsed/ Irrigated with Saline -Foul Odor after Cleansing No No -Anesthetic Used 5% Lidocaine 5% Lidocaine Gel Gel WC - Nurse 2 - General Ulcer CM Notes Start: 11/08/21 14:03 Freq: Status: Active Protocol: Activity Type Activity Date Activity User E-sign Co-sign Detail Recorded Client Recorded Date Recorded By Document 11/08/21 15:38 PL [id number] 11/08/21 15:40 PL Edit Result 11/08/21 15:38 PL (1) [id number] 11/09/21 07:20 PL Document 11/15/21 14:14 JF [id number] 11/15/21 14:26 JF (1) #5- L HALLUX PLANTAR - Type of Offloading => Total Contact Cast => (TCC) - Left ($) 11/08/21 11/15/21 15:38 14:14 Wound Center Nurse 2 #7- L SHOOK -Time 14:15 -Correct Patient No -Correct Side, Site, Position No -Correct Procedure No -Procedure Performed No -Tunneling No -Undermining/Tunneling No -Circular Undermining No -Wound/Ulcer Outcome Not Healed -Ulcer Cleansing Rinsed/ Irrigated with Saline -Foul Odor after Cleansing No -Bioengineered Tissue No -Bleeding Controlled with Pressure -Treatment Response Procedure Tolerated Well -Offloading No -Debridement - Subq, 1st 20sq cm No #5- L HALLUX PLANTAR -Time 14:18 14:14 -Correct Patient Yes Yes -Correct Side, Site, Position Yes Yes -Correct Procedure Yes Yes -Procedure Performed Yes Yes -Type of Procedure Debridement Debridement -Clinical Debridement Subcutaneous Subcutaneous -Tissue Removed Subcutaneous Subcutaneous -Post Debridement (cm) - Length 0.7 0.4 -Post Debridement (cm) - Width 0.3 0.2 -Post Debridement (cm) - Depth 0.3 0.3 -Total Square (Post) (cm) 0.21 0.08 -Area of Debridement (cm) - Length 0.7 0.4 -Area of Debridement (cm) - Width 0.3 0.2 -Total Square (Area) (cm) 0.21 0.08 -Tunneling No No -Undermining/Tunneling No No -Circular Undermining No No -Wound/Ulcer Outcome Not Healed Not Healed -Ulcer Cleansing Rinsed/ Rinsed/ Irrigated with Irrigated with Saline Saline -Foul Odor after Cleansing No No -Bioengineered Tissue Yes Yes -Type of Bioengineered Tissue Epifix 18mm Epifix 18mm Disc Disc -Expiration Date 08/04/26 09/03/26 -Product Lot Number [id number] -Percent Used 100 100 -Lot number of Saline Used [id number] -Bleeding Controlled with Pressure Pressure -Treatment Response Procedure Procedure Tolerated Well Tolerated Well -Offloading Yes -Type of Offloading Total Contact Camwalker Cast (TCC) - Left ($) -Debridement - Subq, 1st 20sq cm No No -Apply Skin Sub - 1st 25 sq cm - Feet 1 1 -Epifix 18mm Disc 3 3 Pain Scale: 0-10 Numeric Is Patient Pain Free? Yes Yes - Nurse 3 - General Ulcer D/C NN Start: 11/08/21 14:03 Freq: Status: Active Protocol: Activity Type Activity Date Activity User E-sign Co-sign Detail Recorded Client Recorded Date Recorded By Document 11/08/21 14:42 [facility] [id number] 11/08/21 14:43 [facility] Document 11/15/21 14:29 DL [id number] 11/15/21 14:32 DL 11/08/21 11/15/21 14:42 14:29 Wound Care Nurse 3 #7- L SHOOK -Ulcer Cleansing Not Cleansed -Foul Odor after Cleansing No -Other Dressing Epifix -Primary Dressing Covered/Secured with Dry Gauze & Roll Gauze, Secured with Tape #5- L HALLUX PLANTAR -Ulcer Cleansing Not Cleansed -Foul Odor after Cleansing No -Primary Dressing Applied Mepilex Border -Other Dressing epifix Epifix -Primary Dressing Covered/Secured with Dry Gauze & Roll Gauze, Secured with Tape -Other Covering tcc undercast -Mepilex Border 1 Left -Tubular Bandage Single Layer -Size of Tubigrip Used Size E -Size E ($) 1 Treatment Response Procedure Procedure Tolerated Well Tolerated Well Pain Scale: 0-10 Numeric Is Patient Pain Free? Yes Yes - Visit Discharge Discharge Condition Stable Stable Ambulatory Status Ambulatory Ambulatory Transportation Private Auto Private Auto Assessment/Plan Assessment/Plan (1) Type 2 diabetes mellitus with diabetic polyneuropathy: CODE(S): E11.42 - Type 2 diabetes mellitus with diabetic polyneuropathy QUALIFIERS: Diabetes mellitus fpc insulin use: with fpc use Qualified Code(s): E11.42 - Type 2 diabetes mellitus with diabetic polyneuropathy; Z79.4 - nursing home (current) use of insulin (2) Chronic ulcer of left foot with fat layer exposed: CODE(S): L97.522 - Non-pressure chronic ulcer of other part of left foot with fat layer exposed (3) Acquired hallux limitus of left foot: CODE(S): M20.5X2 - Other deformities of toe(s) (acquired), left foot (4) Delayed wound healing: CODE(S): T14.8XXD - Other injury of unspecified body region, subsequent encounter (5) Localized edema: CODE(S): R60.0 - Localized edema (6) Achilles rupture, right: CODE(S): S86.011A - Strain of right Achilles tendon, initial encounter PLAN: Plan I reviewed and discussed his case today. Debridement was performed today as noted in the clinical panel to all of the ulcer sites. The following work up and care recommendations were made: Dressing: dressing was applied secondary after epifix was applied to hallux of left foot. Wash: The ulcer was washed with soap and water Tissue growth optimization: I recommend advanced wound healing product, epi fix which is placental derived tissue. Prior authorization with insurance will be started. Is medically necessary for wound healing. This is a chronic wound and he is demonstrating delayed healing. He is at risk for continued limb loss and recurrent infections. The indications benefits anticipated application and management were reviewed in detail. This was applied (epi fix advanced wound healing product) according to standard protocol. The epi fix was secured in place with a wound veil and Steri-Strips. He tolerated this well. He was advised to keep this clean, dry, and intact along with his total contact cast until follow-up next week. Offload: A total contact cast was recommended and he defers. he will try his best to offload with surgical shoe or cam walker. This is difficult for him. The secondary dressing was also applied to his new left leg ulcer site also which was not debrided today. Vascular: He had noninvasive vascular studies performed in October 2020 without any gross abnormalities. He had bilateral triphasic waveforms and normal PVRs. His right ABIs were 1.12 and 1.25 and left was 1.16 and 1.13. Edema: The total contact cast will also aid in edema reduction. To elevate Infection: He was reassured no local signs of infection are noted. To monitor. Pain: This is currently controlled today his neuropathic status Host factors: He has diabetes and this may contribute to delays in healing. He has prior improvement hemoglobin A1c's are noted. I recommend nutritional supplementation to optimize healing including Denis. Diagnostic data: I recommend updating CMP, CBC, and A1c. Lab order was given. His last A1c on file was from 10-10-2020; 8.9%. He had his labs drawn however there was a reported lab error and he has to get this done again. Right lower extremity injury: onset date 07/15/21. [facility]le x-[facility] on 07[facility]21 without fracture or dislocation. The ankle mortise is well aligned in rectus position and there is no posterior calcaneus spur. The rosalia's triagle is not well visualized which suggests achilles disruption. It is noted he has a ruptured right lower limb Achilles in which he has not been wearing the Achilles wedge boot. He was advised to do so and to use an assistive walking device such as a walker or wheelchair given that he is also now in a left total contact cast. He understands significant dysfunction of the right lower extremity is possible if this Achilles not healing and approximated manner. He also understands he is currently not a surgical candidate due to his elevation in glucose levels for right Achilles rupture repair. This is a neglected achilles rupture of the right lower extremity. We discussed this at length again today. It is apparent he has not been compliant and struggles with all of the offloading recommendations bilateral. I recommend right lower limb MRI to confirm the extent of his injury. This will affect his ongoing conservative versus surgical treatment recommendations and plan of care. This is medically necessary. To proceed forward with getting this completed as scheduled on 11-17-21. I answered all the patient's questions. To return to the wound healing center in 1 week or call sooner if the patient has any questions or concerns. Note: Gravy speech recognition rubberizing mechanic software was used to create portions of this document. Sound-alike and misspelled words, as well as other rubberizing mechanic errors may be contained in the documentation.
[2021-11-29 14:30] VITALS: BP 132/70; PULSE 75; RESP 16; TEMP 35.9
--- NOTE | 2021-11-29 14:57 | PN.PCM_ITS ---
History of Present Illness Date of Service: 11/29/21 Chief Complaint: Left great toe ulcer and also ruptured right achilles tendon injury follow up History of Wound: This 61-year-old diabetic male with comorbidities including diabetes and history of foot ulcerations. His left hallux wound has been open again for several months. He denies any specific trauma or has any specific idea why this reopened. He has difficulty offloading this site. He is amenable to have epi fix, advanced wound healing product, applied today if it is approved by the insurance. He is at risk for limb loss. He is amendable to have another epi fix applied today and defers cast. He denies redness or odor. He denies fever, chill, nausea, vomiting. He also has a right Achilles tendon rupture and reports he immobilizes about 80% of the time. He had the MRI completed and would like to go over the results today. Progress of Wound: improving Objective Data Objective Data Vital Signs: Vital Signs Temp Pulse Resp BP O2 Del Method 96.6 F L 75 16 132/70 H Room Air 11/29/21 14:30 11/29/21 14:30 11/29/21 14:30 11/29/21 14:30 11/15/21 13:58 Oxygen Delivery Method Room Air Physical Exam Const alert and no apparent distress General Appearance: cooperative and comfortable Extremity normal capillary refill and no calf tenderness General Extremity: edema bilateral lower extremity, no tenderness to palpation of joints or extremities and other findings Other Details: Capillary refill time less than 3 seconds noted to digits Skin General Skin Exam: Negative for ecchymosis or erythema Rashes: no rashes Wounds: wounds noted Wound Narrative: ulcer noted to left hallux plantar medial. There are some peripheral maceration today and callus formation which was debrided No malodor, erythema, purulence, probing to bone, streaking, fluctuation, crepitus, or other signs of infection. Skin is atrophic and hairless. Granular base ulcer plantar left hallux without deep tissue exposure or undermining or maceration; decreased size. There is a small peripheral callus decreased left hallux IPJ/MPJ Range of motion right lower extremity (prior exam, not today): neg barbara and giles sign. no skin tending. palpable del to achilles proximal to insertion on calcaneus, local edema. no pain to palpate achilles. weakness with plantarflexion and normal strength with inversion, eversion, and dorsiflexion. lack of plantarflexion with calf squeeze compared to contralateral limb (bansal test). no pain to palpate ankle joint, medial or lateral malleolus, peroneal or posterior tibialis tendon Neuro Neuro Narrative: lack of epicritic sensation via light touch is consistent with neuropathy status Psych Appearance: appropriate Attitude: calm Debridement Note Debridement Note Wound debrided: plantar left hallux Wound Grade/Stage: 1 Type of Debridement: Excisional debridement Anesthesia Used: 4% Lidocaine Solution Depth: in the subcutaneous layer Percentage of wound debrided: 100 Instrument Used: #15 blade Tissue Removed: fibrous, devitalized subcutaneous, biofilm, slough Severity: Fat Layer Exposed Amount of bleeding with debridement: Mild Bleeding Controlled with: Pressure Patient tolerated procedure: Patient tolerated procedure well Post-Debridement Measurements and Additional Note: Post-Debridement Measurements/Treatment - Nurse 1 - General Ulcer Assessment Start: 11/08/21 14:03 Freq: Status: Active Protocol: ARIELLE Activity Type Activity Date Activity User E-sign Co-sign Detail Recorded Client Recorded Date Recorded By Document 11/08/21 14:[address] [facility] [id number] 11/08/21 14:[address] [facility] Document 11/15/21 13:[address] [facility] [id number] 11/15/21 14:[address] [facility] Document 11/29/21 14:30 [id number] 11/29/21 14:33 11/08/21 11/15/21 11/29/21 14:05 13:58 14:30 - Today's Visit Information Type of service Follow-up Visit Follow-up Visit Follow-up Visit (Physician/ACCOUNTS RECEIVABLE COORDINATOR (Physician/ACCOUNTS RECEIVABLE COORDINATOR (Physician/ACCOUNTS RECEIVABLE COORDINATOR ) ) ) Arrival Mode Ambulatory Ambulatory Ambulatory Transfer Assistance None None Patient Identification Verified (Name & Yes Yes Yes ) Patient Requires Transmission-Based No No No Precautions Vital Signs Temperature (97.8 F-99.1 F) 96.6 F L Temperature Source Temporal Temporal Pulse Rate (60-100) 87 77 75 Pulse Location Monitor Monitor Monitor Respiratory Rate (12-18) 16 16 16 Respiratory rate source Observation Observation Observation Oxygen Delivery Method Room Air Room Air Blood Pressure (90/60-120/80) 137/94 H 124/49 H 132/70 H Blood Pressure Mean (mm Hg) 108 74 90 Source Monitor Monitor Monitor Position Sitting Sitting Semi-Fowlers Blood Pressure Location Left Arm Left Arm Left Forearm History Since Last Visit- (Skip if this is Patient's initial visit) Have you changed medications since your No No No last visit? Any new allergies or adverse reactions No No No Had a fall/change in ADL's that may No No No increase risk of falls Signs or symptoms of abuse and/or No No No neglect since last visit Have you been in the hospital since your No No No last visit? Has dressing in place as prescribed No No Yes Has compression in place as prescribed N/A N/A N/A Has offloadiing in place as prescribed Yes No Yes Experienced any changes in pain level or No No No management Left Footwear Removable Cast Slipper Surgical Shoe Walker/Walking with pressure Boot relief insole Right Footwear Regular Shoe Slipper Regular Shoe Other Footwear REMOVED TCC AT HOME PER SELF Pain Scale: 0-10 Numeric Is Patient Pain Free? Yes Yes Yes - Nurse 1 - General Ulcer Measurement Start: 11/08/21 14:03 Freq: Status: Active Protocol: Activity Type Activity Date Activity User E-sign Co-sign Detail Recorded Client Recorded Date Recorded By Document 11/08/21 14:[address] [facility] [id number] 11/08/21 14:[address] [facility] Document 11/15/21 13:[address] [facility] [id number] 11/15/21 14:[address] [facility] Document 11/29/21 14:30 [id number] 11/29/21 14:33 11/08/21 11/15/21 11/29/21 14:05 13:58 14:30 Wound Center Nurse 1 #7- L SHOOK -Combined with other wound No No -Current Size (cm) - Length 1.8 0.1 -Current Size (cm) - Width 1 0.1 -Current Size (cm) - Depth 0.1 0.1 -Total Square Cm 1.8 0.01 -Date of Last Picture (Recall this 11/15/21 field) -Photo Taken Yes No -Epithelialization None Present Large 67-100% -Tunneling No No -Undermining/Tunneling No No -Circular Undermining No No -Exudate Amt Small None Present -Exudate Type Serous -Wound Margin Distinct, Flat & Intact Outline Attached -Granulation Amt Large (67-100%) None Present (0 %) -Granulation Quality Red -Slough/Fibrin Yes No -Necrosis Amt Small (1-33%) -Necrotic Tissue Type Adherent Slough -Structure Exposed N/A -Texture (Brittany-wound Skin Appearance) Assessed, Assessed, Scarring Localized Edema -Moisture (Brittany-wound Skin Appearance) Assessed Assessed,Dry/ Scaly -Color (Brittany-wound Skin Appearance) Assessed Assessed -Temperature (Brittany-wound Skin No Abnormality No Abnormality Appearance) (Pt Warm) (Pt Warm) -Tenderness on Palpation (Brittany-wound No No Skin Appearance) -Ulcer Cleansing Rinsed/ Rinsed/ Irrigated with Irrigated with Saline Saline -Foul Odor after Cleansing No No -Anesthetic Used 5% Lidocaine Gel 6-left heel -Combined with other wound No -Current Size (cm) - Length 0.1 -Current Size (cm) - Width 0.1 -Current Size (cm) - Depth 0.1 -Total Square Cm 0.01 -Date of Last Picture (Recall this 11/08/21 field) -Photo Taken Yes -Epithelialization Large 67-100% #5- L HALLUX PLANTAR -Combined with other wound No No No -Current Size (cm) - Length 0.7 0.3 0.5 -Current Size (cm) - Width 0.3 0.2 0.5 -Current Size (cm) - Depth 0.3 0.3 0.3 -Total Square Cm 0.21 0.06 0.25 -Date of Last Picture (Recall this 11/08/21 11/15/21 field) -Photo Taken Yes Yes Yes -Epithelialization None Present Small 1-33% None Present -Tunneling No No No -Undermining/Tunneling No No No -Circular Undermining No No No -Exudate Amt Large Small Small -Exudate Type Serosanguineous Serosanguineous Serosanguineous -Wound Margin Distinct, Distinct, Flat & Intact Outline Outline Attached Attached -Granulation Amt Large (67-100%) Large (67-100%) Medium (34-66%) -Granulation Quality Red Red Red -Slough/Fibrin Yes No Yes -Necrosis Amt Small (1-33%) None Present (0 Medium (34-66%) %) -Necrotic Tissue Type Adherent Slough Adherent Slough -Structure Exposed N/A -Texture (Brittany-wound Skin Appearance) Assessed, Assessed, Assessed Scarring Scarring -Moisture (Brittany-wound Skin Appearance) Assessed, Assessed, Assessed, Maceration,Dry/ Maceration Maceration Scaly -Color (Brittany-wound Skin Appearance) Assessed,Palor Assessed,Palor Assessed -Temperature (Brittany-wound Skin No Abnormality No Abnormality No Abnormality Appearance) (Pt Warm) (Pt Warm) (Pt Warm) -Tenderness on Palpation (Brittany-wound No No No Skin Appearance) -Ulcer Cleansing Soap and Water Rinsed/ Rinsed/ Irrigated with Irrigated with Saline Saline -Foul Odor after Cleansing No No No -Anesthetic Used 5% Lidocaine 5% Lidocaine 5% Lidocaine Gel Gel Gel Lower Limb Edema Present NA WC - Nurse 2 - General Ulcer CM Notes Start: 11/08/21 14:03 Freq: Status: Active Protocol: Activity Type Activity Date Activity User E-sign Co-sign Detail Recorded Client Recorded Date Recorded By Document 11/08/21 15:38 [address] [id number] 11/08/21 15:40 PL Edit Result 11/08/21 15:38 PL (1) [id number] 11/09/21 07:20 PL Document 11/15/21 14:14 [id number] 11/15/21 14:26 JF Document 11/29/21 14:50 [id number] 11/29/21 14:53 JF (1) #5- L HALLUX PLANTAR - Type of Offloading => Total Contact Cast => (TCC) - Left ($) 11/08/21 11/15/21 11/29/21 15:38 14:14 14:50 Wound Center Nurse 2 #7- L SHOOK -Time 14:15 -Correct Patient No No -Correct Side, Site, Position No No -Correct Procedure No No -Procedure Performed No No -Post Debridement (cm) - Length 0 -Post Debridement (cm) - Width 0 -Post Debridement (cm) - Depth 0 -Total Square (Post) (cm) 0 -Area of Debridement (cm) - Length 0 -Area of Debridement (cm) - Width 0 -Total Square (Area) (cm) 0 -Tunneling No -Undermining/Tunneling No -Circular Undermining No -Wound/Ulcer Outcome Not Healed Healed- Epithelialized -Ulcer Cleansing Rinsed/ Irrigated with Saline -Foul Odor after Cleansing No -Bioengineered Tissue No -Bleeding Controlled with Pressure -Treatment Response Procedure Tolerated Well -Offloading No -Debridement - Subq, 1st 20sq cm No #5- L HALLUX PLANTAR -Time 14:18 14:14 14:51 -Correct Patient Yes Yes Yes -Correct Side, Site, Position Yes Yes Yes -Correct Procedure Yes Yes Yes -Procedure Performed Yes Yes Yes -Type of Procedure Debridement Debridement Debridement -Clinical Debridement Subcutaneous Subcutaneous Subcutaneous -Tissue Removed Subcutaneous Subcutaneous Subcutaneous -Post Debridement (cm) - Length 0.7 0.4 0.6 -Post Debridement (cm) - Width 0.3 0.2 0.5 -Post Debridement (cm) - Depth 0.3 0.3 0.3 -Total Square (Post) (cm) 0.21 0.08 0.30 -Area of Debridement (cm) - Length 0.7 0.4 0.6 -Area of Debridement (cm) - Width 0.3 0.2 0.5 -Total Square (Area) (cm) 0.21 0.08 0.30 -Tunneling No No No -Undermining/Tunneling No No No -Circular Undermining No No No -Wound/Ulcer Outcome Not Healed Not Healed Not Healed -Ulcer Cleansing Rinsed/ Rinsed/ Rinsed/ Irrigated with Irrigated with Irrigated with Saline Saline Saline -Foul Odor after Cleansing No No No -Bioengineered Tissue Yes Yes Yes -Type of Bioengineered Tissue Epifix 18mm Epifix 18mm Epifix 18mm Disc Disc Disc -Expiration Date 08/04/26 09/03/26 09/03/26 -Product Lot Number [id number] -Percent Used 100 100 100 -Lot number of Saline Used [id number] -Bleeding Controlled with Pressure Pressure Pressure -Treatment Response Procedure Procedure Tolerated Well Tolerated Well -Offloading Yes Yes -Type of Offloading Total Contact Camwalker Camwalker Cast (TCC) - Left ($) -Debridement - Subq, 1st 20sq cm No No No -Apply Skin Sub - 1st 25 sq cm - Feet 1 1 1 -Epifix 18mm Disc 3 3 3 Pain Scale: 0-10 Numeric Is Patient Pain Free? Yes Yes Yes - Nurse 3 - General Ulcer D/C NN Start: 11/08/21 14:03 Freq: Status: Active Protocol: Activity Type Activity Date Activity User E-sign Co-sign Detail Recorded Client Recorded Date Recorded By Document 11/08/21 14:[address] [facility] [id number] 11/08/21 14:[address] [facility] Document 11/15/21 14:29 DL [id number] 11/15/21 14:32 DL 11/08/21 11/15/21 14:42 14:29 Wound Care Nurse 3 #7- L SHOOK -Ulcer Cleansing Not Cleansed -Foul Odor after Cleansing No -Other Dressing Epifix -Primary Dressing Covered/Secured with Dry Gauze & Roll Gauze, Secured with Tape #5- L HALLUX PLANTAR -Ulcer Cleansing Not Cleansed -Foul Odor after Cleansing No -Primary Dressing Applied Mepilex Border -Other Dressing epifix Epifix -Primary Dressing Covered/Secured with Dry Gauze & Roll Gauze, Secured with Tape -Other Covering tcc undercast -Mepilex Border 1 Left -Tubular Bandage Single Layer -Size of Tubigrip Used Size E -Size E ($) 1 Treatment Response Procedure Procedure Tolerated Well Tolerated Well Pain Scale: 0-10 Numeric Is Patient Pain Free? Yes Yes - Visit Discharge Discharge Condition Stable Stable Ambulatory Status Ambulatory Ambulatory Transportation Private Auto Private Auto Assessment/Plan Assessment/Plan (1) Type 2 diabetes mellitus with diabetic polyneuropathy: CODE(S): E11.42 - Type 2 diabetes mellitus with diabetic polyneuropathy QUALIFIERS: Diabetes mellitus fci insulin use: with joint terminal attack controller use Qualified Code(s): E11.42 - Type 2 diabetes mellitus with diabetic polyneuropathy; Z79.4 - prison (current) use of insulin (2) Chronic ulcer of left foot with fat layer exposed: CODE(S): L97.522 - Non-pressure chronic ulcer of other part of left foot with fat layer exposed (3) Acquired hallux limitus of left foot: CODE(S): M20.5X2 - Other deformities of toe(s) (acquired), left foot (4) Delayed wound healing: CODE(S): T14.8XXD - Other injury of unspecified body region, subsequent encounter (5) Localized edema: CODE(S): R60.0 - Localized edema (6) Achilles rupture, right: CODE(S): S86.011A - Strain of right Achilles tendon, initial encounter PLAN: Plan I reviewed and discussed his case today. Debridement was performed today as noted in the clinical panel to all of the ulcer sites. The following work up and care recommendations were made: Dressing: dressing was applied secondary after epifix was applied to hallux of left foot. Wash: The ulcer was washed with soap and water Tissue growth optimization: I recommend advanced wound healing product, epi fix which is placental derived tissue. Prior authorization with insurance will be started. Is medically necessary for wound healing. This is a chronic wound and he is demonstrating delayed healing. He is at risk for continued limb loss and recurrent infections. The indications benefits anticipated application and management were reviewed in detail. This was applied (epi fix advanced wound healing product) according to standard protocol. The epi fix was secured in place with a wound veil and Steri-Strips. He tolerated this well. He was advised to keep this clean, dry, and intact along with his total contact cast until follow-up next week. Offload: A total contact cast was recommended and he defers. he will try his best to offload with surgical shoe or cam walker. This is difficult for him. The secondary dressing was also applied to his new left leg ulcer site also which was not debrided today. Vascular: He had noninvasive vascular studies performed in October 2020 without any gross abnormalities. He had bilateral triphasic waveforms and normal PVRs. His right ABIs were 1.12 and 1.25 and left was 1.16 and 1.13. Edema: The total contact cast will also aid in edema reduction. To elevate Infection: He was reassured no local signs of infection are noted. To monitor. Pain: This is currently controlled today his neuropathic status Host factors: He has diabetes and this may contribute to delays in healing. He has prior improvement hemoglobin A1c's are noted. I recommend nutritional supplementation to optimize healing including Denis. Diagnostic data: I recommend updating CMP, CBC, and A1c. Lab order was given. His last A1c on file was from 10-10-2020; 8.9%. He had his labs drawn however there was a reported lab error and he has to get this done again. Right lower extremity injury: onset date 07/15/21. [facility] on 07[facility]21 without fracture or dislocation. The ankle mortise is well aligned in rectus position and there is no posterior calcaneus spur. The rosalia's seaaglaayush is not well visualized which suggests achilles disruption. It is noted he has a ruptured right lower limb Achilles in which he has not been wearing the Achilles wedge boot. He was advised to do so and to use an assistive walking device such as a walker or wheelchair given that he is also now in a left total contact cast. He understands significant dysfunction of the right lower extremity is possible if this Achilles not healing and approximated manner. He also understands he is currently not a surgical candidate due to his elevation in glucose levels for right Achilles rupture repair. This is a neglected achilles rupture of the right lower extremity. We discussed this at length again today. It is apparent he has not been compliant and struggles with all of the offloading recommendations bilateral. I recommend right lower limb MRI to confirm the extent of his injury. This will affect his ongoing conservative versus surgical treatment recommendations and plan of care. This is medically necessary. I reviewed and discussed his MRI findings which demonstrate a high-grade partial tear. His care recommendations remain the same. I answered all the patient's questions. To return to the wound healing center in 1 week or call sooner if the patient has any questions or concerns. Note: [employer] speech recognition programs assistant software was used to create portions of this document. Sound-alike and misspelled words, as well as other programs assistant errors may be contained in the documentation. The medical decision making level is limited based on data including the review of prior external notes, review of a prior test, or ordering a test. The problems addressed require a low medical decision making level which includes two or more minor problems, a stable chronic illness, or an acute uncomplicated illness or injury.
== END 2021-12-03 23:59 | disposition home or self-care (01) ==
LOC: WC 14:30
PROVIDERS: PCP Internal Medicine Cardiovascular Disease; Visit Provider Podiatrist
DX: E11.621 Type 2 diabetes mellitus with foot ulcer (principal); L97.522 Non-pressure chronic ulcer of other part of left foot with fat layer exposed; E11.42 Type 2 diabetes mellitus with diabetic polyneuropathy; Z79.4 Long term (current) use of insulin; R60.0 Localized edema; S86.011D Strain of right Achilles tendon, subsequent encounter; X58.XXXD Exposure to other specified factors, subsequent encounter
CPT/HCPCS: 15275; 29445; Q4186

== ENCOUNTER 2022-01-03 14:45 | Outpatient (RCR) | payer MEDICARE, MEDICAID, SELFPAY ==
[2021-12-04 00:14] VITALS: BP 132/70; PULSE 75; RESP 16; TEMP 35.9
[2021-12-06 14:51] VITALS: BP 143/58; PULSE 74; RESP 16; TEMP 36.3
--- NOTE | 2021-12-06 15:48 | PCM.WC.PN ---
History of Present Illness Date of Service: 12/06/21 Chief Complaint: Left great toe ulcer and also ruptured right achilles tendon injury follow up History of Wound: This 61-year-old diabetic male with comorbidities including diabetes and history of foot ulcerations. His left hallux wound has been open again for several months. He denies any specific trauma or has any specific idea why this reopened. He has difficulty offloading this site. He is amenable to have epi fix, advanced wound healing product, applied today if it is approved by the insurance. He is at risk for limb loss. He completed course of epifix. He denies redness or odor. He denies fever, chill, nausea, vomiting. He also has a right Achilles tendon rupture and reports he immobilizes about 80% of the time. He had the MRI completed and continues with conservative care at this time. Objective Data Objective Data Vital Signs: Vital Signs Temp Pulse Resp BP O2 Del Method 97.3 F L 74 16 143/58 H Room Air 12/06/21 14:51 12/06/21 14:51 12/06/21 14:51 12/06/21 14:51 12/06/21 14:51 Oxygen Delivery Method Room Air Physical Exam Const alert and no apparent distress Extremity no calf tenderness Skin Wounds: wounds noted Wound Narrative: ulcer noted to left hallux plantar medial. There are some peripheral maceration today and callus formation which was debrided No malodor, erythema, purulence, probing to bone, streaking, fluctuation, crepitus, or other signs of infection. Skin is atrophic and hairless. Granular base ulcer plantar left hallux without deep tissue exposure or undermining or maceration; decreased size. There is a small peripheral callus decreased left hallux IPJ/MPJ Range of motion Neuro Neuro Narrative: lack of epicritic sensation via light touch is consistent with neuropathy status Debridement Note Debridement Note Post-Debridement Measurements and Additional Note: Post-Debridement Measurements/Treatment - Nurse 1 - General Ulcer Assessment Start: 12/06/21 14:51 Freq: Status: Active Protocol: SUGEYEXChaz Activity Type Activity Date Activity User E-sign Co-sign Detail Recorded Client Recorded Date Recorded By Document 12/06/21 14:51 [facility] [id number] 12/06/21 15:02 [facility] 12/06/21 14:51 - Today's Visit Information Type of service 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 ) Arrival Mode Ambulatory Transfer Assistance None Patient Identification Verified (Name & Yes ) Patient Requires Transmission-Based No Precautions Vital Signs Temperature (97.8 F-99.1 F) 97.3 F L Temperature Source Temporal Pulse Rate (60-100) 74 Pulse Location Monitor Respiratory Rate (12-18) 16 Respiratory rate source Observation Oxygen Delivery Method Room Air Blood Pressure (90/60-120/80) 143/58 H Blood Pressure Mean (mm Hg) 86 Source Monitor Position Sitting Blood Pressure Location Left Forearm History Since Last Visit- (Skip if this is Patient's initial visit) Have you changed medications since your No last visit? Any new allergies or adverse reactions No Had a fall/change in ADL's that may No increase risk of falls Signs or symptoms of abuse and/or No neglect since last visit Have you been in the hospital since your No last visit? Has dressing in place as prescribed Yes Has compression in place as prescribed No Has offloadiing in place as prescribed N/A Experienced any changes in pain level or No management Left Footwear Slipper Right Footwear Slipper Pain Scale: 0-10 Numeric Is Patient Pain Free? Yes - Nurse 1 - General Ulcer Measurement Start: 12/06/21 14:51 Freq: Status: Active Protocol: Activity Type Activity Date Activity User E-sign Co-sign Detail Recorded Client Recorded Date Recorded By Document 12/06/21 14:51 [facility] [id number] 12/06/21 15:02 [facility] 12/06/21 14:51 Wound Center Nurse 1 #7- L SHOOK -Combined with other wound No -Current Size (cm) - Length 0 -Current Size (cm) - Width 0 -Current Size (cm) - Depth 0 -Total Square Cm 0 -Date of Last Picture (Recall this 12/06/21 field) -Photo Taken Yes -Epithelialization Large 67-100% 6-left heel -Combined with other wound No -Current Size (cm) - Length 0 -Current Size (cm) - Width 0 -Current Size (cm) - Depth 0 -Total Square Cm 0 -Date of Last Picture (Recall this 12/06/21 field) -Photo Taken Yes -Epithelialization Large 67-100% #5- L HALLUX PLANTAR -Combined with other wound No -Current Size (cm) - Length 0.5 -Current Size (cm) - Width 0.7 -Current Size (cm) - Depth 0.3 -Total Square Cm 0.35 -Date of Last Picture (Recall this 12/06/21 field) -Photo Taken Yes -Epithelialization Small 1-33% -Tunneling No -Undermining/Tunneling No -Circular Undermining No -Exudate Amt Small -Exudate Type Serosanguineous -Wound Margin Distinct, Outline Attached -Granulation Amt Large (67-100%) -Granulation Quality [place] -Slough/Fibrin Yes -Necrosis Amt Small (1-33%) -Necrotic Tissue Type Adherent Slough -Texture (Brittany-wound Skin Appearance) Assessed,Callus ,Scarring -Moisture (Brittany-wound Skin Appearance) Assessed,Dry/ Scaly -Color (Brittany-wound Skin Appearance) Assessed -Temperature (Brittany-wound Skin No Abnormality Appearance) (Pt Warm) -Tenderness on Palpation (Brittany-wound No Skin Appearance) -Ulcer Cleansing Soap and Water -Foul Odor after Cleansing No -Anesthetic Used 5% Lidocaine Gel WC - Nurse 2 - General Ulcer CM Notes Start: 12/06/21 14:51 Freq: Status: Active Protocol: Activity Type Activity Date Activity User E-sign Co-sign Detail Recorded Client Recorded Date Recorded By Document 12/06/21 15:14 [id number] 12/06/21 15:17 MICHAEL 12/06/21 15:14 Wound Center Nurse 2 #7- L SHOOK -Correct Patient No -Correct Side, Site, Position No -Correct Procedure No -Procedure Performed No -Post Debridement (cm) - Length 0 -Post Debridement (cm) - Width 0 -Post Debridement (cm) - Depth 0 -Total Square (Post) (cm) 0 -Area of Debridement (cm) - Length 0 -Area of Debridement (cm) - Width 0 -Total Square (Area) (cm) 0 #5- L HALLUX PLANTAR -Time 15:14 -Correct Patient Yes -Correct Side, Site, Position Yes -Correct Procedure Yes -Procedure Performed Yes -Type of Procedure Debridement -Clinical Debridement Subcutaneous -Tissue Removed Subcutaneous -Post Debridement (cm) - Length 0.7 -Post Debridement (cm) - Width 1.0 -Post Debridement (cm) - Depth 0.1 -Total Square (Post) (cm) 0.70 -Area of Debridement (cm) - Length 0.7 -Area of Debridement (cm) - Width 1.0 -Total Square (Area) (cm) 0.70 -Tunneling No -Undermining/Tunneling No -Circular Undermining No -Wound/Ulcer Outcome Not Healed -Ulcer Cleansing Rinsed/ Irrigated with Saline -Foul Odor after Cleansing No -Bioengineered Tissue No -Bleeding Controlled with NA,Pressure -Treatment Response Procedure Tolerated Well -Offloading Yes -Type of Offloading Camwalker -Debridement - Subq, 1st 20sq cm Yes Pain Scale: 0-10 Numeric Is Patient Pain Free? Yes - Nurse 3 - General Ulcer D/C NN Start: 12/06/21 14:51 Freq: Status: Active Protocol: Activity Type Activity Date Activity User E-sign Co-sign Detail Recorded Client Recorded Date Recorded By Document 12/06/21 15:22 [facility] [id number] 12/06/21 15:23 [facility] Document 12/06/21 15:29 [id number] 12/06/21 15:30 RB 12/06/21 12/06/21 15:22 15:29 Wound Care Nurse 3 #5- L HALLUX PLANTAR -Ulcer Cleansing Rinsed/ Rinsed/ Irrigated with Irrigated with Saline Saline -Foul Odor after Cleansing No -Primary Dressing Applied Other -Other Dressing HYDROGEL hydrogel -Primary Dressing Covered/Secured with Dry Gauze, Dry Gauze, Secured with Secured with Tape Tape -Other Covering DRSG PER RB RN Treatment Response Procedure Procedure Tolerated Well Tolerated Well Pain Scale: 0-10 Numeric Is Patient Pain Free? Yes Yes Teaching: Wound Center Dressing Your Wound -Person Taught Patient -Teaching Method Discussion, Demonstration -Response to teaching Verbalize understanding WC - Visit Discharge Discharge Condition Stable Stable Ambulatory Status Ambulatory Ambulatory Transportation Private Auto Private Auto Medication Reconcilliation completed & No provided to patient/care provider Clinical Summary of Care Provided Yes Assessment/Plan Assessment/Plan (1) Type 2 diabetes mellitus with diabetic polyneuropathy: CODE(S): E11.42 - Type 2 diabetes mellitus with diabetic polyneuropathy QUALIFIERS: Diabetes mellitus keno terminal operator insulin use: with keno terminal operator use Qualified Code(s): E11.42 - Type 2 diabetes mellitus with diabetic polyneuropathy; Z79.4 - long term care administrator (current) use of insulin (2) Chronic ulcer of left foot with fat layer exposed: CODE(S): L97.522 - Non-pressure chronic ulcer of other part of left foot with fat layer exposed (3) Acquired hallux limitus of left foot: CODE(S): M20.5X2 - Other deformities of toe(s) (acquired), left foot (4) Delayed wound healing: CODE(S): T14.8XXD - Other injury of unspecified body region, subsequent encounter (5) Localized edema: CODE(S): R60.0 - Localized edema PLAN: Plan I reviewed and discussed his case today. Debridement was performed today as noted in the clinical panel to all of the ulcer sites. The following work up and care recommendations were made: Dressing: to change daily with hydrogel Wash: The ulcer was washed with soap and water Tissue growth optimization: I recommend advanced wound healing product, epi fix which is placental derived tissue.He completed a full course and demonstrated improvement. Offload: he will try his best to offload with surgical shoe or cam walker. This is difficult for him. Vascular: He had noninvasive vascular studies performed in October 2020 without any gross abnormalities. He had bilateral triphasic waveforms and normal PVRs. His right ABIs were 1.12 and 1.25 and left was 1.16 and 1.13. Edema: To elevate and wear compression garments Infection: He was reassured no local signs of infection are noted. To monitor. Pain: This is currently controlled today his neuropathic status Host factors: He has diabetes and this may contribute to delays in healing. He has prior improvement hemoglobin A1c's are noted. I recommend nutritional supplementation to optimize healing including Denis. Diagnostic data: His last A1c on file was from 10-10-2020; 8.9%. He had his labs drawn however there was a reported lab error and he has to get this done again. I answered all the patient's questions. To return to the wound healing center in 1 week or call sooner if the patient has any questions or concerns. Note: [employer] speech recognition currency machine operator software was used to create portions of this document. Sound-alike and misspelled words, as well as other currency machine operator errors may be contained in the documentation.
[2021-12-20 14:34] VITALS: BP 152/77; PULSE 74; RESP 20; TEMP 36.8
--- NOTE | 2021-12-20 15:21 | PN.PCM_ITS ---
History of Present Illness Date of Service: 12/20/21 Chief Complaint: Left great toe ulcer and also ruptured right achilles tendon injury follow up and new right foot pain History of Wound: This 61-year-old diabetic male with comorbidities including diabetes and history of foot ulcerations. He follows up today for left hallux wound. He completed course of epifix. He denies redness or odor. He denies fever, chill, nausea, vomiting. He also has a right Achilles tendon rupture and reports he immobilizes it with improved compliance and thinks this is getting better. He has reduced pain. He had MRI completed and continues with conservative care at this time. He also reports that he had right foot pain within the past week that he noticed while he was preparing large bushels of tomatoes for storage purposes. He was concerned that he stepped on something and there was a skin change that he treated with hydrogel at home. There is no longer any drainage and he would like this looked at today. His pain is nearly resolved now. He also reports he is taking a couple medications for neuropathy and has continued discomfort. He would like to consider an implantable spinal cord stimulator as we discussed previously. He is already in a pain management clinic in [place] and would like to see if they do this procedure there. If not, he is amendable to have a local referral. Progress of Wound: Stable left hallux ulcer Objective Data Objective Data Vital Signs: Vital Signs Temp Pulse Resp BP O2 Del Method 98.3 F 74 20 H 152/77 H Room Air 12/20/21 14:34 12/20/21 14:34 12/20/21 14:34 12/20/21 14:34 12/06/21 14:51 Oxygen Delivery Method Room Air Physical Exam Const alert and no apparent distress Extremity no calf tenderness Skin Wounds: wounds noted Wound Narrative: ulcer noted to left hallux plantar medial. Granular base noted. There is no maceration, Deep tissue, or necrosis or infection noted today No malodor, erythema, purulence, probing to bone, streaking, fluctuation, crepitus, or other signs of infection. Skin is atrophic and hairless. decreased left hallux IPJ/MPJ Range of motion There is a less notable palpable dell to the right Achilles rupture site and d ecrease pain and edema. The plantar right heel does have a palpable area of induration without visualized foreign body, bogginess, fluctuance, blister, drainage or local infection. There is no warmth to touch Neuro Neuro Narrative: lack of epicritic sensation via light touch is consistent with neuropathy status Debridement Note Debridement Note Wound debrided: plantar left hallux Wound Grade/Stage: 1 Type of Debridement: Excisional debridement Anesthesia Used: 4% Lidocaine Solution Depth: in the subcutaneous layer Percentage of wound debrided: 100 Instrument Used: #15 blade Tissue Removed: fibrous, devitalized subcutaneous, biofilm, slough Severity: Fat Layer Exposed Amount of bleeding with debridement: Mild Bleeding Controlled with: Pressure Patient tolerated procedure: Patient tolerated procedure well Post-Debridement Measurements and Additional Note: Post-Debridement Measurements/Treatment - Nurse 1 - General Ulcer Assessment Start: 12/06/21 14:51 Freq: Status: Active Protocol: ARIELLE Activity Type Activity Date Activity User E-sign Co-sign Detail Recorded Client Recorded Date Recorded By Document 12/06/21 14:51 [facility] [id number] 12/06/21 15:02 [facility] Document 12/20/21 14:34 DL [id number] 12/20/21 14:39 DL 12/06/21 12/20/21 14:51 14:34 - Today's Visit Information Type of service Follow-up Visit Follow-up Visit (Physician/SUPERVISOR PREPRESS (Physician/SUPERVISOR PREPRESS ) ) Arrival Mode Ambulatory Ambulatory Transfer Assistance None None Patient Identification Verified (Name & Yes Yes ) Patient Requires Transmission-Based No No Precautions Finger Stick Blood Sugar(mg/dl) (if 131 indicated): Blood Sugar Stated by Patient Vital Signs Temperature (97.8 F-99.1 F) 97.3 F L 98.3 F Temperature Source Temporal Temporal Pulse Rate (60-100) 74 74 Pulse Location Monitor Monitor Respiratory Rate (12-18) 16 20 H Respiratory rate source Observation Observation Oxygen Delivery Method Room Air Blood Pressure (90/60-120/80) 143/58 H 152/77 H Blood Pressure Mean (mm Hg) 86 102 Source Monitor Monitor Position Sitting Blood Pressure Location Left Forearm History Since Last Visit- (Skip if this is Patient's initial visit) Have you changed medications since your No No last visit? Any new allergies or adverse reactions No No Had a fall/change in ADL's that may No No increase risk of falls Signs or symptoms of abuse and/or No No neglect since last visit Have you been in the hospital since your No No last visit? Has dressing in place as prescribed Yes Yes Has compression in place as prescribed No N/A Has offloadiing in place as prescribed N/A No Experienced any changes in pain level or No No management Left Footwear Slipper Right Footwear Slipper Pain Scale: 0-10 Numeric Is Patient Pain Free? Yes Yes WC - Nurse 1 - General Ulcer Measurement Start: 12/06/21 14:51 Freq: Status: Active Protocol: Activity Type Activity Date Activity User E-sign Co-sign Detail Recorded Client Recorded Date Recorded By Document 12/06/21 14:51 BMF [id number] 12/06/21 15:02 BMF Document 12/20/21 14:34 DL [id number] 12/20/21 14:39 DL 12/06/21 12/20/21 14:51 14:34 Wound Center Nurse 1 #7- L SHOOK -Combined with other wound No -Current Size (cm) - Length 0 -Current Size (cm) - Width 0 -Current Size (cm) - Depth 0 -Total Square Cm 0 -Date of Last Picture (Recall this 12/06/21 field) -Photo Taken Yes -Epithelialization Large 67-100% 6-left heel -Combined with other wound No -Current Size (cm) - Length 0 -Current Size (cm) - Width 0 -Current Size (cm) - Depth 0 -Total Square Cm 0 -Date of Last Picture (Recall this 12/06/21 field) -Photo Taken Yes -Epithelialization Large 67-100% #5- L HALLUX PLANTAR -Combined with other wound No -Current Size (cm) - Length 0.5 0.6 -Current Size (cm) - Width 0.7 0.7 -Current Size (cm) - Depth 0.3 0.2 -Total Square Cm 0.35 0.42 -Date of Last Picture (Recall this 12/06/21 field) -Photo Taken Yes No -Epithelialization Small 1-33% -Tunneling No -Undermining/Tunneling No -Circular Undermining No -Exudate Amt Small Small -Exudate Type Serosanguineous Serosanguineous -Wound Margin Distinct, Distinct, Outline Outline Attached Attached -Granulation Amt Large (67-100%) Large (67-100%) -Granulation Quality Union Level Union Level -Slough/Fibrin Yes -Necrosis Amt Small (1-33%) Small (1-33%) -Necrotic Tissue Type Adherent Slough Adherent Slough -Structure Exposed N/A -Texture (Brittany-wound Skin Appearance) Assessed,Callus Callus,Scarring ,Scarring -Moisture (Brittany-wound Skin Appearance) Assessed,Dry/ No Abnormality Scaly -Color (Brittany-wound Skin Appearance) Assessed No Abnormality -Temperature (Brittany-wound Skin No Abnormality No Abnormality Appearance) (Pt Warm) (Pt Warm) -Tenderness on Palpation (Brittany-wound No Skin Appearance) -Ulcer Cleansing Soap and Water Rinsed/ Irrigated with Saline -Foul Odor after Cleansing No No -Anesthetic Used 5% Lidocaine 5% Lidocaine Gel Gel WC - Nurse 2 - General Ulcer CM Notes Start: 12/06/21 14:51 Freq: Status: Active Protocol: Activity Type Activity Date Activity User E-sign Co-sign Detail Recorded Client Recorded Date Recorded By Document 12/06/21 15:14 [id number] 12/06/21 15:17 Document 12/20/21 14:46 [id number] 12/20/21 14:50 12/06/21 12/20/21 15:14 14:46 Wound Center Nurse 2 #7- L SHOOK -Correct Patient No -Correct Side, Site, Position No -Correct Procedure No -Procedure Performed No -Post Debridement (cm) - Length 0 -Post Debridement (cm) - Width 0 -Post Debridement (cm) - Depth 0 -Total Square (Post) (cm) 0 -Area of Debridement (cm) - Length 0 -Area of Debridement (cm) - Width 0 -Total Square (Area) (cm) 0 #5- L HALLUX PLANTAR -Time 15:14 14:49 -Correct Patient Yes Yes -Correct Side, Site, Position Yes Yes -Correct Procedure Yes Yes -Procedure Performed Yes Yes -Type of Procedure Debridement Debridement -Clinical Debridement Subcutaneous Subcutaneous -Tissue Removed Subcutaneous Subcutaneous -Post Debridement (cm) - Length 0.7 0.9 -Post Debridement (cm) - Width 1.0 0.8 -Post Debridement (cm) - Depth 0.1 0.2 -Total Square (Post) (cm) 0.70 0.72 -Area of Debridement (cm) - Length 0.7 0.9 -Area of Debridement (cm) - Width 1.0 0.8 -Total Square (Area) (cm) 0.70 0.72 -Tunneling No No -Undermining/Tunneling No No -Circular Undermining No No -Wound/Ulcer Outcome Not Healed Not Healed -Ulcer Cleansing Rinsed/ Rinsed/ Irrigated with Irrigated with Saline Saline -Foul Odor after Cleansing No No -Bioengineered Tissue No No -Bleeding Controlled with NA,Pressure Pressure -Treatment Response Procedure Procedure Tolerated Well Tolerated Well -Offloading Yes Yes -Type of Offloading Camwalker Camwalker -Debridement - Subq, 1st 20sq cm Yes Yes Pain Scale: 0-10 Numeric Is Patient Pain Free? Yes Yes - Nurse 3 - General Ulcer D/C NN Start: 12/06/21 14:51 Freq: Status: Active Protocol: Activity Type Activity Date Activity User E-sign Co-sign Detail Recorded Client Recorded Date Recorded By Document 12/06/21 15:22 [facility] [id number] 12/06/21 15:23 [facility] Document 12/06/21 15:29 [id number] 12/06/21 15:30 RB Document 12/20/21 15:05 [id number] 12/20/21 15:05 RB 12/06/21 12/06/21 12/20/21 15:22 15:29 15:05 Wound Care Nurse 3 #5- L HALLUX PLANTAR -Ulcer Cleansing Rinsed/ Rinsed/ Irrigated with Irrigated with Saline Saline -Foul Odor after Cleansing No -Primary Dressing Applied Other C Hydrogel ($) -Other Dressing HYDROGEL hydrogel -Primary Dressing Covered/Secured with Dry Gauze, Dry Gauze, Dry Gauze, Secured with Secured with Secured with Tape Tape Tape -Other Covering DRSG PER RB RN Treatment Response Procedure Procedure Procedure Tolerated Well Tolerated Well Tolerated Well Pain Scale: 0-10 Numeric Is Patient Pain Free? Yes Yes Yes Teaching: Wound Center Dressing Your Wound -Person Taught Patient Patient -Teaching Method Discussion, Discussion, Demonstration Demonstration -Response to teaching Verbalize Verbalize understanding understanding WC - Visit Discharge Discharge Condition Stable Stable Stable Ambulatory Status Ambulatory Ambulatory Ambulatory Transportation Private Auto Private Auto Private Auto Medication Reconcilliation completed & No provided to patient/care provider Clinical Summary of Care Provided Yes Yes Assessment/Plan Assessment/Plan (1) Type 2 diabetes mellitus with diabetic polyneuropathy: CODE(S): E11.42 - Type 2 diabetes mellitus with diabetic polyneuropathy QUALIFIERS: Diabetes mellitus half-way insulin use: with adjunct faculty for medical terminology use Qualified Code(s): E11.42 - Type 2 diabetes mellitus with diabetic polyneuropathy; Z79.4 - assisted (current) use of insulin (2) Chronic ulcer of left foot with fat layer exposed: CODE(S): L97.522 - Non-pressure chronic ulcer of other part of left foot w ith fat layer exposed (3) Acquired hallux limitus of left foot: CODE(S): M20.5X2 - Other deformities of toe(s) (acquired), left foot (4) Delayed wound healing: CODE(S): T14.8XXD - Other injury of unspecified body region, subsequent encounter (5) Localized edema: CODE(S): R60.0 - Localized edema (6) Achilles rupture, right: CODE(S): S86.011A - Strain of right Achilles tendon, initial encounter (7) Foot pain, right: CODE(S): M79.671 - Pain in right foot PLAN: Plan I reviewed and discussed his case today. Debridement was performed today as noted in the clinical panel to all of the ulcer site of the left foot. The following work up and care recommendations were made: Dressing: to change daily with hydrogel Wash: The ulcer was washed with soap and water Tissue growth optimization: I recommend advanced wound healing product, epi fix which is placental derived tissue.He completed a full course and demonstrated improvement. Offload: he will try his best to offload with surgical shoe or cam walker. This is difficult for him However he appears to be doing much better and is more compliant. Vascular: He had noninvasive vascular studies performed in October 2020 without any gross abnormalities. He had bilateral triphasic waveforms and normal PVRs. His right ABIs were 1.12 and 1.25 and left was 1.16 and 1.13. Edema: To elevate and wear compression garments Infection: He was reassured no local signs of infection are noted. To monitor. Pain: This is currently controlled today his neuropathic status. He is on oral medication. I recommended referral for implantable spinal cord stimulator device. He will see if his pain management office who performs this procedure. If not a referral to local pain management will be considered if he is an appropriate candidate. The benefits and indications were reviewed today. Host factors: He has diabetes and this may contribute to delays in healing. He has prior improvement hemoglobin A1c's are noted. I recommend nutritional supplementation to optimize healing including Denis. Diagnostic data: His last A1c on file was from 10-10-2020; 8.9%. He had his labs drawn however there was a reported lab error and he has to get this done again. Achilles tendon injury: I recommend continue offloading with cam walker boot with heel wedge. His inflammation appears to be reducing. He has been more compliant he was advised to continue. Use assistive device to help him get around. It is difficult to offload bilateral lower extremities. Right foot pain: He was evaluated and there does not appear to be a foreign body, wound, or infection. To wear supportive shoes and to avoid standing for long periods of time without shoe gear in place. To monitor for development of infection or wound development. I answered all the patient's questions. To return to the wound healing center in 1 week or call sooner if the patient has any questions or concerns. Note: Handpressions speech recognition sewing machine operator floorperson software was used to create portions of this document. Sound-alike and misspelled words, as well as other sewing machine operator floorperson errors may be contained in the documentation. The medical decision making level is low. There is noted low risk of morbidity after considering this treatment plan and diagnostic data. The problems addressed require a low medical decision making level which includes two or more minor problems, a stable chronic illness, or an acute uncomplicated illness or injury.
[2022-01-03 14:51] VITALS: BP 165/77; PULSE 77; RESP 18; TEMP 36.2
--- NOTE | 2022-01-03 15:25 | PCM.WC.PN ---
History of Present Illness Date of Service: 01/03/22 Chief Complaint: Left great toe ulcer and also ruptured right achilles tendon injury follow up History of Wound: This 61-year-old diabetic male with comorbidities including diabetes and history of foot ulcerations. He follows up today for left hallux wound. He completed course of epifix. He denies redness or odor. He denies fever, chill, nausea, vomiting. He reports he took a whirlpool with Epson salts and this may have caused some maceration. He also has a right Achilles tendon rupture and reports he immobilizes it with improved compliance and thinks this is getting better. He has reduced pain. He had MRI completed and continues with conservative care at this time. He denies other left foot pains today as noted last week. He also reports he is taking a couple medications for neuropathy and has continued discomfort. He would like to consider an implantable spinal cord stimulator as we discussed previously. He would like a referral to consider this treatment option at this time locally. Progress of Wound: Stable left hallux ulcer Objective Data Objective Data Vital Signs: Vital Signs Temp Pulse Resp BP O2 Del Method 97.1 F L 77 18 165/77 H Room Air 01/03/22 14:51 01/03/22 14:51 01/03/22 14:51 01/03/22 14:51 12/06/21 14:51 Oxygen Delivery Method Room Air Physical Exam Const alert and no apparent distress Extremity no calf tenderness Skin Wounds: wounds noted Wound Narrative: ulcer noted to left hallux plantar medial. Granular base noted. There is some maceration, Deep tissue, or necrosis or infection noted today No malodor, erythema, purulence, probing to bone, streaking, fluctuation, crepitus, or other signs of infection. Skin is atrophic and hairless. decreased left hallux IPJ/MPJ Range of motion There is a less notable palpable dell to the right Achilles rupture site and decrease pain and edema. The plantar right heel does have a palpable area of induration without visualized foreign body, bogginess, fluctuance, blister, drainage or local infection. There is no warmth to touch Neuro Neuro Narrative: lack of epicritic sensation via light touch is consistent with neuropathy status Debridement Note Debridement Note Wound debrided: plantar left hallux Wound Grade/Stage: 1 Type of Debridement: Excisional debridement Anesthesia Used: 4% Lidocaine Solution Depth: in the subcutaneous layer Percentage of wound debrided: 100 Instrument Used: #15 blade Tissue Removed: fibrous, devitalized subcutaneous, biofilm, slough Severity: Fat Layer Exposed Amount of bleeding with debridement: Mild Bleeding Controlled with: Pressure Patient tolerated procedure: Patient tolerated procedure well Post-Debridement Measurements and Additional Note: Post-Debridement Measurements/Treatment MELANY - Nurse 1 - General Ulcer Assessment Start: 12/06/21 14:51 Freq: Status: Active Protocol: ARIELLE Activity Type Activity Date Activity User E-sign Co-sign Detail Recorded Client Recorded Date Recorded By Document 12/06/21 14:51 BMF [id number] 12/06/21 15:02 BMF Document 12/20/21 14:34 DL [id number] 12/20/21 14:39 DL Document 01/03/22 14:51 JF [id number] 01/03/22 14:52 JF 12/06/21 12/20/21 01/03/22 14:51 14:34 14:51 - Today's Visit Information Type of service Follow-up Visit Follow-up Visit Follow-up Visit (Physician/PRACTICAL NURSE (Physician/PRACTICAL NURSE (Physician/PRACTICAL NURSE ) ) ) Arrival Mode Ambulatory Ambulatory Ambulatory Transfer Assistance None None Patient Identification Verified (Name & Yes Yes No ) Patient Requires Transmission-Based No No No Precautions Finger Stick Blood Sugar(mg/dl) (if 131 137 indicated): Blood Sugar Stated by Stated by Patient Patient Vital Signs Temperature (97.8 F-99.1 F) 97.3 F L 98.3 F 97.1 F L Temperature Source Temporal Temporal Temporal Pulse Rate (60-100) 74 74 77 Pulse Location Monitor Monitor Monitor Respiratory Rate (12-18) 16 20 H 18 Respiratory rate source Observation Observation Observation Oxygen Delivery Method Room Air Blood Pressure (90/60-120/80) 143/58 H 152/77 H 165/77 H Blood Pressure Mean (mm Hg) 86 102 106 Source Monitor Monitor Monitor Position Sitting Semi-Fowlers Blood Pressure Location Left Forearm Left Arm History Since Last Visit- (Skip if this is Patient's initial visit) Have you changed medications since your No No No last visit? Any new allergies or adverse reactions No No No Had a fall/change in ADL's that may No No No increase risk of falls Signs or symptoms of abuse and/or No No No neglect since last visit Have you been in the hospital since your No No No last visit? Has dressing in place as prescribed Yes Yes Yes Has compression in place as prescribed No N/A N/A Has offloadiing in place as prescribed N/A No No Experienced any changes in pain level or No No No management Left Footwear Slipper Slipper Right Footwear Slipper Slipper Pain Scale: 0-10 Numeric Is Patient Pain Free? Yes Yes Yes WC - Nurse 1 - General Ulcer Measurement Start: 12/06/21 14:51 Freq: Status: Active Protocol: Activity Type Activity Date Activity User E-sign Co-sign Detail Recorded Client Recorded Date Recorded By Document 12/06/21 14:51 [facility] [id number] 12/06/21 15:02 BMF Document 12/20/21 14:34 DL [id number] 12/20/21 14:39 DL Document 01/03/22 14:51 JF [id number] 01/03/22 14:52 JF 12/06/21 12/20/21 01/03/22 14:51 14:34 14:51 Wound Center Nurse 1 #7- L SHOOK -Combined with other wound No -Current Size (cm) - Length 0 -Current Size (cm) - Width 0 -Current Size (cm) - Depth 0 -Total Square Cm 0 -Date of Last Picture (Recall this 12/06/21 field) -Photo Taken Yes -Epithelialization Large 67-100% 6-left heel -Combined with other wound No -Current Size (cm) - Length 0 -Current Size (cm) - Width 0 -Current Size (cm) - Depth 0 -Total Square Cm 0 -Date of Last Picture (Recall this 12/06/21 field) -Photo Taken Yes -Epithelialization Large 67-100% #5- L HALLUX PLANTAR -Combined with other wound No No -Current Size (cm) - Length 0.5 0.6 0.7 -Current Size (cm) - Width 0.7 0.7 0.8 -Current Size (cm) - Depth 0.3 0.2 0.2 -Total Square Cm 0.35 0.42 0.56 -Date of Last Picture (Recall this 12/06/21 field) -Photo Taken Yes No No -Epithelialization Small 1-33% Small 1-33% -Tunneling No No -Undermining/Tunneling No No -Circular Undermining No No -Exudate Amt Small Small Medium -Exudate Type Serosanguineous Serosanguineous Serosanguineous -Wound Margin Distinct, Distinct, Flat & Intact Outline Outline Attached Attached -Granulation Amt Large (67-100%) Large (67-100%) Large (67-100%) -Granulation Quality [place] Red -Slough/Fibrin Yes Yes -Necrosis Amt Small (1-33%) Small (1-33%) Medium (34-66%) -Necrotic Tissue Type Adherent Slough Adherent Slough Adherent Slough -Structure Exposed N/A N/A -Texture (Brittany-wound Skin Appearance) Assessed,Callus Callus,Scarring Assessed ,Scarring -Moisture (Brittany-wound Skin Appearance) Assessed,Dry/ No Abnormality Assessed, Scaly Maceration -Color (Brittany-wound Skin Appearance) Assessed No Abnormality Assessed -Temperature (Brittany-wound Skin No Abnormality No Abnormality Appearance) (Pt Warm) (Pt Warm) -Tenderness on Palpation (Brittany-wound No Skin Appearance) -Ulcer Cleansing Soap and Water Rinsed/ Rinsed/ Irrigated with Irrigated with Saline Saline -Foul Odor after Cleansing No No No -Anesthetic Used 5% Lidocaine 5% Lidocaine Gel Gel Lower Limb Edema Present NA WC - Nurse 2 - General Ulcer CM Notes Start: 12/06/21 14:51 Freq: Status: Active Protocol: Activity Type Activity Date Activity User E-sign Co-sign Detail Recorded Client Recorded Date Recorded By Document 12/06/21 15:14 [id number] 12/06/21 15:17 Document 12/20/21 14:46 [id number] 12/20/21 14:50 Document 01/03/22 14:56 [id number] 01/03/22 14:58 12/06/21 12/20/21 01/03/22 15:14 14:46 14:56 Wound Center Nurse 2 #7- L SHOOK -Correct Patient No -Correct Side, Site, Position No -Correct Procedure No -Procedure Performed No -Post Debridement (cm) - Length 0 -Post Debridement (cm) - Width 0 -Post Debridement (cm) - Depth 0 -Total Square (Post) (cm) 0 -Area of Debridement (cm) - Length 0 -Area of Debridement (cm) - Width 0 -Total Square (Area) (cm) 0 #5- L HALLUX PLANTAR -Time 15:14 14:49 14:57 -Correct Patient Yes Yes Yes -Correct Side, Site, Position Yes Yes Yes -Correct Procedure Yes Yes Yes -Procedure Performed Yes Yes Yes -Type of Procedure Debridement Debridement Debridement -Clinical Debridement Subcutaneous Subcutaneous Subcutaneous -Tissue Removed Subcutaneous Subcutaneous Subcutaneous -Post Debridement (cm) - Length 0.7 0.9 0.8 -Post Debridement (cm) - Width 1.0 0.8 0.8 -Post Debridement (cm) - Depth 0.1 0.2 0.2 -Total Square (Post) (cm) 0.70 0.72 0.64 -Area of Debridement (cm) - Length 0.7 0.9 0.8 -Area of Debridement (cm) - Width 1.0 0.8 0.8 -Total Square (Area) (cm) 0.70 0.72 0.64 -Tunneling No No No -Undermining/Tunneling No No No -Circular Undermining No No No -Wound/Ulcer Outcome Not Healed Not Healed Not Healed -Ulcer Cleansing Rinsed/ Rinsed/ Rinsed/ Irrigated with Irrigated with Irrigated with Saline Saline Saline -Foul Odor after Cleansing No No No -Bioengineered Tissue No No No -Bleeding Controlled with NA,Pressure Pressure Pressure -Treatment Response Procedure Procedure Procedure Tolerated Well Tolerated Well Tolerated Well -Offloading Yes Yes No -Type of Offloading Camwalker Camwalker -Debridement - Subq, 1st 20sq cm Yes Yes Yes Pain Scale: 0-10 Numeric Is Patient Pain Free? Yes Yes Yes WC - Nurse 3 - General Ulcer D/C NN Start: 12/06/21 14:51 Freq: Status: Active Protocol: Activity Type Activity Date Activity User E-sign Co-sign Detail Recorded Client Recorded Date Recorded By Document 12/06/21 15:22 [facility] [id number] 12/06/21 15:23 BMF Document 12/06/21 15:29 RB [id number] 12/06/21 15:30 RB Document 12/20/21 15:05 RB [id number] 12/20/21 15:05 RB Document 01/03/22 15:13 RB [id number] 01/03/22 15:14 RB 12/06/21 12/06/21 12/20/21 15:22 15:29 15:05 Wound Care Nurse 3 #5- L HALLUX PLANTAR -Ulcer Cleansing Rinsed/ Rinsed/ Irrigated with Irrigated with Saline Saline -Foul Odor after Cleansing No -Primary Dressing Applied Other C Hydrogel ($) -Other Dressing HYDROGEL hydrogel -Primary Dressing Covered/Secured with Dry Gauze, Dry Gauze, Dry Gauze, Secured with Secured with Secured with Tape Tape Tape -Other Covering DRSG PER RB RN Treatment Response Procedure Procedure Procedure Tolerated Well Tolerated Well Tolerated Well Pain Scale: 0-10 Numeric Is Patient Pain Free? Yes Yes Yes Teaching: Wound Center Dressing Your Wound -Person Taught Patient Patient -Teaching Method Discussion, Discussion, Demonstration Demonstration -Response to teaching Verbalize Verbalize understanding understanding WC - Visit Discharge Discharge Condition Stable Stable Stable Ambulatory Status Ambulatory Ambulatory Ambulatory Transportation Private Auto Private Auto Private Auto Medication Reconcilliation completed & No provided to patient/care provider Clinical Summary of Care Provided Yes Yes 01/03/22 15:13 Wound Care Nurse 3 #5- L HALLUX PLANTAR -Ulcer Cleansing -Foul Odor after Cleansing -Primary Dressing Applied -Other Dressing hydrogel with bordered adhesive -Primary Dressing Covered/Secured with Dry Gauze -Other Covering Treatment Response Procedure Tolerated Well Pain Scale: 0-10 Numeric Is Patient Pain Free? 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 Qualified Code(s): E11.42 - Type 2 diabetes mellitus with diabetic polyneuropathy; Z79.4 - MCC (current) use of insulin (2) Chronic ulcer of left foot with fat layer exposed: CODE(S): L97.522 - Non-pressure chronic ulcer of other part of left foot with fat layer exposed (3) Acquired hallux limitus of left foot: CODE(S): M20.5X2 - Other deformities of toe(s) (acquired), left foot (4) Delayed wound healing: CODE(S): T14.8XXD - Other injury of unspecified body region, subsequent encounter (5) Localized edema: CODE(S): R60.0 - Localized edema (6) Achilles rupture, right: CODE(S): S86.011A - Strain of right Achilles tendon, initial encounter (7) Other hereditary and idiopathic neuropathies: CODE(S): G60.8 - Other hereditary and idiopathic neuropathies PLAN: Plan I reviewed and discussed his case today. Debridement was performed today as noted in the clinical panel to all of the ulcer site of the left foot. The following work up and care recommendations were made: Dressing: to change daily with hydrogel Wash: The ulcer was washed with soap and water Tissue growth optimization: I recommend advanced wound healing product, epi fix which is placental derived tissue.He completed a full course and demonstrated improvement. Offload: he will try his best to offload with surgical shoe or cam walker. This is difficult for him However he appears to be doing much better and is more compliant. Vascular: He had noninvasive vascular studies performed in October 2020 without any gross abnormalities. He had bilateral triphasic waveforms and normal PVRs. His right ABIs were 1.12 and 1.25 and left was 1.16 and 1.13. Edema: To elevate and wear compression garments Infection: He was reassured no local signs of infection are noted. To monitor. Pain: This is currently controlled today his neuropathic status. He is on oral medication. I recommended referral for implantable spinal cord stimulator device. The benefits and indications were reviewed today. A referral to see Dr. Larson will be provided to see if he is an appropriate candidate. Host factors: He has diabetes and this may contribute to delays in healing. He has prior improvement hemoglobin A1c's are noted. I recommend nutritional supplementation to optimize healing including Denis. Diagnostic data: His last A1c on file was from 10-10-2020; 8.9%. He had his labs drawn however there was a reported lab error and he has to get this done again. Achilles tendon injury: I recommend continue offloading with cam walker boot with heel wedge. His inflammation appears to be reducing. He has been more compliant he was advised to continue. Use assistive device to help him get around. It is difficult to offload bilateral lower extremities. Note: [employer] speech recognition bevel polisher software was used to create portions of this document. Sound-alike and misspelled words, as well as other bevel polisher errors may be contained in the documentation.
== END 2022-01-03 23:59 | disposition home or self-care (01) ==
LOC: WC 14:45
PROVIDERS: PCP Internal Medicine Cardiovascular Disease; Visit Provider Podiatrist
DX: E11.621 Type 2 diabetes mellitus with foot ulcer (principal); L97.522 Non-pressure chronic ulcer of other part of left foot with fat layer exposed; E11.42 Type 2 diabetes mellitus with diabetic polyneuropathy; Z79.4 Long term (current) use of insulin; R60.0 Localized edema; G60.9 Hereditary and idiopathic neuropathy, unspecified; M20.5X2 Other deformities of toe(s) (acquired), left foot
CPT/HCPCS: 11042

== ENCOUNTER 2022-01-10 14:21 | Outpatient (RCR) | payer MEDICARE, MEDICAID, SELFPAY ==
[2022-01-04 00:18] VITALS: BP 165/77; PULSE 77; RESP 18; TEMP 36.2
[2022-01-10 14:21] VITALS: BP 169/82; PULSE 77; RESP 20; TEMP 35.9
[2022-01-10 15:00] LABS: Bedside Glucose 160 mg/dL (74-106)
--- NOTE | 2022-01-10 15:48 | PN.PCM_ITS ---
History of Present Illness Date of Service: 01/10/22 Chief Complaint: Left great toe ulcer History of Wound: This 61-year-old diabetic male with comorbidities including diabetes and history of foot ulcerations. He follows up today for left hallux wound. He completed course of epifix. He denies redness or odor. He denies fever, chill, nausea, vomiting. He denies other left foot pains today as noted last week. He also reports he is taking a couple medications for neuropathy and has c ontinued discomfort. He would like to consider an implantable spinal cord stimulator as we discussed previously. He would like a referral to consider this treatment option at this time locally. Upon entry into the room today he reports that he is hypoglycemic and asks for a piece of candy. He feels much better after drinking some orange juice and his blood glucose level was 160 mg/dL. Is also known that he is healing and recovering from a right lower extremity Achilles near rupture. He is not following up for this condition today. Progress of Wound: Improving Objective Data Objective Data Vital Signs: Vital Signs Temp Pulse Resp BP 96.7 F L 77 20 H 169/82 H 01/10/22 14:21 01/10/22 14:21 01/10/22 14:21 01/10/22 14:21 Lab / Micro Data Labs: Laboratory Results - last 24 hr 01/10/22 14:41: POC Glucose 160 H Debridement Note Debridement Note Wound debrided: plantar hallux Laterality: Left Wound Grade/Stage: 1 Type of Debridement: Excisional debridement Anesthesia Used: 4% Lidocaine Solution Depth: in the subcutaneous layer Percentage of wound debrided: 100 Instrument Used: #15 blade Tissue Removed: fibrous, devitalized subcutaneous, biofilm, slough Severity: Fat Layer Exposed Amount of bleeding with debridement: Mild Bleeding Controlled with: Pressure Patient tolerated procedure: Patient tolerated procedure well Post-Debridement Measurements and Additional Note: Post-Debridement Measurements/Treatment MELANY - Nurse 1 - General Ulcer Assessment Start: 01/10/22 14:21 Freq: Status: Active Protocol: ARIELLE Activity Type Activity Date Activity User E-sign Co-sign Detail Recorded Client Recorded Date Recorded By Document 01/10/22 14:21 DL [id number] 01/10/22 14:24 DL Document 01/10/22 14:54 RB [id number] 01/10/22 14:55 RB 01/10/22 01/10/22 14:21 14:54 - Today's Visit Information Type of service Follow-up Visit (Physician/PATIENT ACCOUNTS COORDINATOR ) Arrival Mode Ambulatory Transfer Assistance None Patient Identification Verified (Name & Yes ) Patient Requires Transmission-Based No Precautions Finger Stick Blood Sugar(mg/dl) (if 160 indicated): Blood Sugar Done During this Visit Vital Signs Temperature (97.8 F-99.1 F) 96.7 F L Temperature Source Temporal Pulse Rate (60-100) 77 Pulse Location Monitor Respiratory Rate (12-18) 20 H Respiratory rate source Observation Blood Pressure (90/60-120/80) 169/82 H Blood Pressure Mean (mm Hg) 111 Source Monitor History Since Last Visit- (Skip if this is Patient's initial visit) Have you changed medications since your No last visit? Any new allergies or adverse reactions No Had a fall/change in ADL's that may No increase risk of falls Signs or symptoms of abuse and/or No neglect since last visit Have you been in the hospital since your No last visit? Has dressing in place as prescribed Yes Has compression in place as prescribed N/A Has offloadiing in place as prescribed No Experienced any changes in pain level or No management Pain Scale: 0-10 Numeric Is Patient Pain Free? Yes Yes - Nurse 1 - General Ulcer Measurement Start: 01/10/22 14:21 Freq: Status: Active Protocol: Activity Type Activity Date Activity User E-sign Co-sign Detail Recorded Client Recorded Date Recorded By Document 01/10/22 14:21 [id number] 01/10/22 14:24 DL 01/10/22 14:21 Wound Center Nurse 1 #5- L HALLUX PLANTAR -Current Size (cm) - Length 0.8 -Current Size (cm) - Width 0.7 -Current Size (cm) - Depth 0.4 -Total Square Cm 0.56 -Photo Taken No -Exudate Amt Small -Exudate Type Serosanguineous -Wound Margin Thickened -Granulation Amt Large (67-100%) -Granulation Quality Cement -Necrosis Amt Small (1-33%) -Necrotic Tissue Type Adherent Slough -Structure Exposed N/A -Texture (Brittany-wound Skin Appearance) Callus -Moisture (Brittany-wound Skin Appearance) Dry/Scaly -Color (Brittany-wound Skin Appearance) No Abnormality -Temperature (Brittany-wound Skin No Abnormality Appearance) (Pt Warm) -Tenderness on Palpation (Brittany-wound No Skin Appearance) -Ulcer Cleansing Rinsed/ Irrigated with Saline -Foul Odor after Cleansing No -Anesthetic Used 5% Lidocaine Gel - Nurse 2 - General Ulcer CM Notes Start: 01/10/22 14:21 Freq: Status: Active Protocol: Activity Type Activity Date Activity User E-sign Co-sign Detail Recorded Client Recorded Date Recorded By Document 01/10/22 14:42 [id number] 01/10/22 14:45 MICHAEL 01/10/22 14:42 Wound Center Nurse 2 -Time 14:43 -Correct Patient Yes -Correct Side, Site, Position Yes -Correct Procedure Yes -Procedure Performed Yes -Type of Procedure Debridement -Clinical Debridement Subcutaneous -Tissue Removed Subcutaneous -Post Debridement (cm) - Length 0.8 -Post Debridement (cm) - Width 0.8 -Post Debridement (cm) - Depth 0.2 -Total Square (Post) (cm) 0.64 -Area of Debridement (cm) - Length 0.8 -Area of Debridement (cm) - Width 0.8 -Total Square (Area) (cm) 0.64 -Tunneling No -Undermining/Tunneling No -Circular Undermining No -Wound/Ulcer Outcome Not Healed -Ulcer Cleansing Rinsed/ Irrigated with Saline -Foul Odor after Cleansing No -Bioengineered Tissue No -Bleeding Controlled with Pressure -Treatment Response Procedure Tolerated Well -Offloading Yes -Type of Offloading Surgical Shoe -Debridement - Subq, 1st 20sq cm Yes Pain Scale: 0-10 Numeric Is Patient Pain Free? Yes - Nurse 3 - General Ulcer D/C NN Start: 01/10/22 14:21 Freq: Status: Active Protocol: Activity Type Activity Date Activity User E-sign Co-sign Detail Recorded Client Recorded Date Recorded By Document 01/10/22 14:53 ROSANNA [id number] 01/10/22 14:54 RB 01/10/22 14:53 Wound Care Nurse 3 #5- L HALLUX PLANTAR -Other Dressing hydrogel gauze and bordered adhesive Treatment Response Procedure Tolerated Well Pain Scale: 0-10 Numeric Is Patient Pain Free? Yes WC - Visit Discharge Discharge Condition Stable Ambulatory Status Ambulatory Transportation Private Auto Medication Reconcilliation completed & No provided to patient/care provider Clinical Summary of Care Provided Yes Assessment/Plan Assessment/Plan (1) Type 2 diabetes mellitus with diabetic polyneuropathy: CODE(S): E11.42 - Type 2 diabetes mellitus with diabetic polyneuropathy QUALIFIERS: Diabetes mellitus penitentiary insulin use: with penitentiary use Qualified Code(s): E11.42 - Type 2 diabetes mellitus with diabetic polyneuropathy; Z79.4 - halfway (current) use of insulin (2) Chronic ulcer of left foot with fat layer exposed: CODE(S): L97.522 - Non-pressure chronic ulcer of other part of left foot with fat layer exposed (3) Acquired hallux limitus of left foot: CODE(S): M20.5X2 - Other deformities of toe(s) (acquired), left foot (4) Delayed wound healing: CODE(S): T14.8XXD - Other injury of unspecified body region, subsequent encounter (5) Localized edema: CODE(S): R60.0 - Localized edema (6) Achilles rupture, right: CODE(S): S86.011A - Strain of right Achilles tendon, initial encounter (7) Other hereditary and idiopathic neuropathies: CODE(S): G60.8 - Other hereditary and idiopathic neuropathies PLAN: Plan I reviewed and discussed his case today. Debridement was performed today as noted in the clinical panel to all of the ulcer site of the left foot. His hypglycemic event was immediatly addressed and he did not lose consciousness. He had juice and a snack and glucose was checked at 161 mg/dL. The following work up and care recommendations were made: Dressing: to change daily with hydrogel Wash: The ulcer was washed with soap and water Tissue growth optimization: I recommend advanced wound healing product, epi fix which is placental derived tissue.He completed a full course and demonstrated improvement. Offload: he will try his best to offload with surgical shoe or cam walker. This is difficult for him However he appears to be doing much better and is more compliant. Surgical offloading including mckenna arthroplasty is also something he can consider. He defers total contact cast application; he had prior success with this. Vascular: He had noninvasive vascular studies performed in October 2020 without any gross abnormalities. He had bilateral triphasic waveforms and normal PVRs. His right ABIs were 1.12 and 1.25 and left was 1.16 and 1.13. Edema: To elevate and wear compression garments Infection: He was reassured no local signs of infection are noted. To monitor. Pain: This is currently controlled today his neuropathic status. He is on oral medication. I recommended referral for implantable spinal cord stimulator device. The benefits and indications were reviewed today. A referral to see Dr. Larson will be provided to see if he is an appropriate candidate. Informational packet was provided today. Host factors: He has diabetes and this may contribute to delays in healing. He has prior improvement hemoglobin A1c's are noted. I recommend nutritional supp lementation to optimize healing including Denis. Diagnostic data: His last A1c on file was from 10-10-2020; 8.9%. Achilles tendon injury (not discussed during visit today): I previously recommend continue offloading with cam walker boot with heel wedge. His inflammation appears to be reducing. He has been more compliant he was advised to continue. Use assistive device to help him get around. It is difficult to offload bilateral lower extremities. Note: [employer] speech recognition vp celebrity services software was used to create portions of this document. Sound-alike and misspelled words, as well as other vp celebrity services errors may be contained in the documentation.
== END 2022-02-02 23:59 | disposition home or self-care (01) ==
LOC: WC 14:21
PROVIDERS: Podiatrist; PCP Internal Medicine Cardiovascular Disease; Visit Provider Podiatrist
DX: E11.621 Type 2 diabetes mellitus with foot ulcer (principal); L97.522 Non-pressure chronic ulcer of other part of left foot with fat layer exposed; E11.42 Type 2 diabetes mellitus with diabetic polyneuropathy; Z79.4 Long term (current) use of insulin; R60.0 Localized edema; G60.8 Other hereditary and idiopathic neuropathies; M20.5X2 Other deformities of toe(s) (acquired), left foot
CPT/HCPCS: 11042; 82962

== ENCOUNTER 2022-02-27 11:15 | Outpatient (RCR) | payer MEDICARE, MEDICAID, SELFPAY ==
[2022-02-03 00:50] VITALS: BP 169/82; PULSE 77; RESP 20; TEMP 35.9
[2022-02-06 11:29] VITALS: BP 159/89; PULSE 64; RESP 16; TEMP 36
--- NOTE | 2022-02-06 12:02 | PN.PCM_ITS ---
History of Present Illness Date of Service: 02/06/22 Chief Complaint: Left great toe ulcer History of Wound: This 61-year-old diabetic male with comorbidities including diabetes and history of foot ulcerations. He follows up today for left hallux wound. He completed course of epifix. He denies redness or odor. He denies fever, chill, nausea, vomiting. Objective Data Objective Data Vital Signs: Vital Signs Temp Pulse Resp BP O2 Del Method 96.8 F L 64 16 159/89 H Room Air 02/06/22 11:29 02/06/22 11:29 02/06/22 11:29 02/06/22 11:29 02/06/22 11:29 Oxygen Delivery Method Room Air Physical Exam Const alert and no apparent distress Extremity no calf tenderness Skin Wounds: wounds noted Wound Narrative: ulcer noted to left hallux plantar medial. Granular base noted. There is some maceration, Deep tissue, or necrosis or infection noted today No malodor, erythema, purulence, probing to bone, streaking, fluctuation, crepitus, or other signs of infection. Skin is atrophic and hairless. decreased left hallux IPJ/MPJ Range of motion There is a less notable palpable dell to the right Achilles rupture site and decrease pain and edema. The plantar right heel does have a palpable area of induration without visualized foreign body, bogginess, fluctuance, blister, drainage or local infection. There is no warmth to touch Neuro Neuro Narrative: lack of epicritic sensation via light touch is consistent with neuropathy status Debridement Note Debridement Note Post-Debridement Measurements and Additional Note: Post-Debridement Measurements/Treatment - Nurse 1 - General Ulcer Assessment Start: 02/06/22 11:29 Freq: Status: Active Protocol: WC.LOWEXT Activity Type Activity Date Activity User E-sign Co-sign Detail Recorded Client Recorded Date Recorded By Document 02/06/22 11:29 AL [id number] 02/06/22 11:33 AL 02/06/22 11:29 - Today's Visit Information Type of service Follow-up Visit (Physician/DRAPERY COUNSELOR ) Arrival Mode Ambulatory Transfer Assistance None Patient Identification Verified (Name & Yes ) Patient Requires Transmission-Based No Precautions Vital Signs Temperature (97.8 F-99.1 F) 96.8 F L Temperature Source Temporal Pulse Rate (60-100) 64 Pulse Location Monitor Respiratory Rate (12-18) 16 Respiratory rate source Observation Oxygen Delivery Method Room Air Blood Pressure (90/60-120/80) 159/89 H Blood Pressure Mean (mm Hg) 112 Source Monitor Position Sitting Blood Pressure Location Right Forearm History Since Last Visit- (Skip if this is Patient's initial visit) Have you changed medications since your No last visit? Any new allergies or adverse reactions No Had a fall/change in ADL's that may No increase risk of falls Signs or symptoms of abuse and/or No neglect since last visit Have you been in the hospital since your No last visit? Left Footwear Slipper Right Footwear Slipper Pain Scale: 0-10 Numeric Is Patient Pain Free? Yes WC - Nurse 1 - General Ulcer Measurement Start: 02/06/22 11:29 Freq: Status: Active Protocol: Activity Type Activity Date Activity User E-sign Co-sign Detail Recorded Client Recorded Date Recorded By Document 02/06/22 11:29 AL [id number] 02/06/22 11:33 AL 02/06/22 11:29 Wound Center Nurse 1 #6 L HALLUX PLANTAR -Combined with other wound No -Current Size (cm) - Length 1.9 -Current Size (cm) - Width 1.3 -Current Size (cm) - Depth 0.1 -Total Square Cm 2.47 -Date of Last Picture (Recall this 02/06/22 field) -Photo Taken Yes -Epithelialization None Present -Tunneling No -Undermining/Tunneling Yes -Undermining/Tunneling Starts (O'clock 12 ) -Undermining/Tunneling Ends (O'clock) 3 -Maximum Distance (cm) 0.3 -Circular Undermining No -Exudate Amt Small -Exudate Type Serosanguineous -Wound Margin Flat & Intact -Granulation Amt Large (67-100%) -Granulation Quality Red -Slough/Fibrin Yes -Necrosis Amt Small (1-33%) -Necrotic Tissue Type Adherent Slough -Texture (Brittany-wound Skin Appearance) Assessed,Callus ,Scarring -Moisture (Brittany-wound Skin Appearance) Assessed,Dry/ Scaly -Color (Brittany-wound Skin Appearance) Assessed -Temperature (Brittany-wound Skin No Abnormality Appearance) (Pt Warm) -Tenderness on Palpation (Brittany-wound No Skin Appearance) -Ulcer Cleansing Rinsed/ Irrigated with Saline -Foul Odor after Cleansing No -Anesthetic Used 5% Lidocaine Gel WC - Nurse 2 - General Ulcer CM Notes Start: 02/06/22 11:29 Freq: Status: Active Protocol: Activity Type Activity Date Activity User E-sign Co-sign Detail Recorded Client Recorded Date Recorded By Document 02/06/22 11:53 MICHAEL [id number] 02/06/22 11:54 MICHAEL 02/06/22 11:53 Wound Center Nurse 2 -Time 11:53 -Correct Patient Yes -Correct Side, Site, Position Yes -Correct Procedure Yes -Procedure Performed Yes -Type of Procedure Debridement -Clinical Debridement Subcutaneous -Tissue Removed Subcutaneous -Post Debridement (cm) - Length 2.0 -Post Debridement (cm) - Width 1.3 -Post Debridement (cm) - Depth 0.2 -Total Square (Post) (cm) 2.60 -Area of Debridement (cm) - Length 2.0 -Area of Debridement (cm) - Width 1.3 -Total Square (Area) (cm) 2.60 -Tunneling No -Undermining/Tunneling No -Circular Undermining No -Wound/Ulcer Outcome Not Healed -Ulcer Cleansing Rinsed/ Irrigated with Saline -Foul Odor after Cleansing No -Bioengineered Tissue No -Bleeding Controlled with Pressure -Treatment Response Procedure Tolerated Well -Offloading No -Debridement - Subq, 1st 20sq cm Yes Pain Scale: 0-10 Numeric Is Patient Pain Free? Yes Assessment/Plan Assessment/Plan (1) Type 2 diabetes mellitus with diabetic polyneuropathy: CODE(S): E11.42 - Type 2 diabetes mellitus with diabetic polyneuropathy QUALIFIERS: Diabetes mellitus ferry terminal supervisor insulin use: with ferry terminal supervisor use Qualified Code(s): E11.42 - Type 2 diabetes mellitus with diabetic polyneuropathy; Z79.4 - salvage determiner (current) use of insulin (2) Chronic ulcer of left foot with fat layer exposed: CODE(S): L97.522 - Non-pressure chronic ulcer of other part of left foot with fat layer exposed (3) Acquired hallux limitus of left foot: CODE(S): M20.5X2 - Other deformities of toe(s) (acquired), left foot (4) Delayed wound healing: CODE(S): T14.8XXD - Other injury of unspecified body region, subsequent encounter (5) Localized edema: CODE(S): R60.0 - Localized edema (6) Achilles rupture, right: CODE(S): S86.011A - Strain of right Achilles tendon, initial encounter (7) Other hereditary and idiopathic neuropathies: CODE(S): G60.8 - Other hereditary and idiopathic neuropathies PLAN: Plan I reviewed and discussed his case today. Debridement was performed today as noted in the clinical panel to all of the ulcer site of the left foot. The following work up and care recommendations were made: Dressing: to change daily with hydrogel Wash: The ulcer was washed with soap and water Tissue growth optimization: I recommend advanced wound healing product, epi fix which is placental derived tissue.He completed a full course and demonstrated improvement. Offload: he will try his best to offload with surgical shoe or cam walker. This is difficult for him However he appears to be doing much better and is more compliant. Surgical offloading including mckenna arthroplasty is also something he can consider. He defers total contact cast application; he had prior success with this. Vascular: He had noninvasive vascular studies performed in October 2020 without any gross abnormalities. He had bilateral triphasic waveforms and normal PVRs. His right ABIs were 1.12 and 1.25 and left was 1.16 and 1.13. Edema: To elevate and wear compression garments Infection: He was reassured no local signs of infection are noted. To monitor. Pain: This is currently controlled today his neuropathic status. He is on oral medication. I recommended referral for implantable spinal cord stimulator device. The benefits and indications were reviewed today. A referral to see Dr. Larson will be provided to see if he is an appropriate candidate. Informational packet was provided today. Host factors: He has diabetes and this may contribute to delays in healing. He has prior improvement hemoglobin A1c's are noted. I recommend nutritional supplementation to optimize healing including Denis. Diagnostic data: His last A1c on file was from 10-10-2020; 8.9%. Due to Achilles tendon rupture on the right lower extremity and elevated hemoglobin A1c initial operative management was delayed for this. Patient has significant weakness and instability due to this injury. Patient has chronic left hallux wound. Due to poor response to conservative treatment we will plan to proceed with a elective hallux interphalangeal joint arthroplasty to internally offload the medial hallucal IPJ wound. While the patient recovers from this due to chronic right Achilles tendon rupture I have recommended that the patient gets fitted for a custom Marichuy brace as this would allow for long- term healing of the tendon in a corrected position without surgical management. This would also allow the patient to have the adequate stability to offload his left hallux IPJ during the postoperative period. New hemoglobin A1c ordered today. Note: [facility] speech recognition business development recruiter software was used to create portions of this document. Sound-alike and misspelled words, as well as other business development recruiter errors may be contained in the documentation.
[2022-02-27 11:30] VITALS: BP 126/78; PULSE 82; TEMP 36.2
--- NOTE | 2022-02-27 11:49 | PCM.WC.PN ---
History of Present Illness Date of Service: 02/27/22 Chief Complaint: Left great toe ulcer History of Wound: This 61-year-old diabetic male with comorbidities including diabetes and history of foot ulcerations. He follows up today for left hallux wound. He completed course of epifix. He denies redness or odor. He denies fever, chill, nausea, vomiting. Objective Data Objective Data Vital Signs: Vital Signs Temp Pulse Resp BP O2 Del Method 97.2 F L 82 16 126/78 H Room Air 02/27/22 11:30 02/27/22 11:30 02/06/22 11:29 02/27/22 11:30 02/06/22 11:29 Oxygen Delivery Method Room Air Physical Exam Const alert and no apparent distress Extremity no calf tenderness Skin Wounds: wounds noted Wound Narrative: ulcer noted to left hallux plantar medial. Granular base noted. There is some maceration, Deep tissue, or necrosis or infection noted today No malodor, erythema, purulence, probing to bone, streaking, fluctuation, crepitus, or other signs of infection. Skin is atrophic and hairless. decreased left hallux IPJ/MPJ Range of motion There is a less notable palpable dell to the right Achilles rupture site and decrease pain and edema. The plantar right heel does have a palpable area of induration without visualized foreign body, bogginess, fluctuance, blister, drainage or local infection. There is no warmth to touch Neuro Neuro Narrative: lack of epicritic sensation via light touch is consistent with neuropathy status Debridement Note Debridement Note Post-Debridement Measurements and Additional Note: Post-Debridement Measurements/Treatment - Nurse 1 - General Ulcer Assessment Start: 02/06/22 11:29 Freq: Status: Active Protocol: [email or web address].[email or web address] Activity Type Activity Date Activity User E-sign Co-sign Detail Recorded Client Recorded Date Recorded By Document 02/06/22 11:29 MT [id number] 02/06/22 11:33 MT Document 02/27/22 11:30 AK [id number] 02/27/22 11:32 AK 02/06/22 02/27/22 11:29 11:30 - Today's Visit Information Type of service Follow-up Visit Follow-up Visit (Physician/SALES REPRESENTATIVE METALS (Physician/SALES REPRESENTATIVE METALS ) ) Arrival Mode Ambulatory Ambulatory Transfer Assistance None Patient Identification Verified (Name & Yes Yes ) Patient Requires Transmission-Based No No Precautions Vital Signs Temperature (97.8 F-99.1 F) 96.8 F L 97.2 F L Temperature Source Temporal Temporal Pulse Rate (60-100) 64 82 Pulse Location Monitor Monitor Respiratory Rate (12-18) 16 Respiratory rate source Observation Oxygen Delivery Method Room Air Blood Pressure (90/60-120/80) 159/89 H 126/78 H Blood Pressure Mean (mm Hg) 112 94 Source Monitor Monitor Position Sitting Blood Pressure Location Right Forearm History Since Last Visit- (Skip if this is Patient's initial visit) Have you changed medications since your No No last visit? Any new allergies or adverse reactions No No Had a fall/change in ADL's that may No No increase risk of falls Signs or symptoms of abuse and/or No No neglect since last visit Have you been in the hospital since your No No last visit? Has dressing in place as prescribed Yes Has compression in place as prescribed N/A Has offloadiing in place as prescribed N/A Experienced any changes in pain level or No management Left Footwear Slipper Regular Shoe Right Footwear Slipper Regular Shoe Pain Scale: 0-10 Numeric Is Patient Pain Free? Yes Yes WC - Nurse 1 - General Ulcer Measurement Start: 02/06/22 11:29 Freq: Status: Active Protocol: Activity Type Activity Date Activity User E-sign Co-sign Detail Recorded Client Recorded Date Recorded By Document 02/06/22 11:29 DE [id number] 02/06/22 11:33 DE Document 02/27/22 11:30 AK [id number] 02/27/22 11:32 AK 02/06/22 02/27/22 11:29 11:30 Wound Center Nurse 1 #6 L HALLUX PLANTAR -Combined with other wound No No -Current Size (cm) - Length 1.9 1 -Current Size (cm) - Width 1.3 0.5 -Current Size (cm) - Depth 0.1 0.2 -Total Square Cm 2.47 0.5 -Date of Last Picture (Recall this 02/06/22 field) -Photo Taken Yes No -Epithelialization None Present -Tunneling No No -Undermining/Tunneling Yes No -Undermining/Tunneling Starts (O'clock 12 ) -Undermining/Tunneling Ends (O'clock) 3 -Maximum Distance (cm) 0.3 -Circular Undermining No No -Change in Wound Grade/Stage No -Exudate Amt Small Medium -Exudate Type Serosanguineous Serosanguineous -Wound Margin Flat & Intact Distinct, Outline Attached -Granulation Amt Large (67-100%) Medium (34-66%) -Granulation Quality [place] -Slough/Fibrin Yes Yes -Necrosis Amt Small (1-33%) Small (1-33%) -Necrotic Tissue Type Adherent Slough Adherent Slough -Structure Exposed N/A -Texture (Brittany-wound Skin Appearance) Assessed,Callus Assessed,Callus ,Scarring -Moisture (Brittany-wound Skin Appearance) Assessed,Dry/ No Abnormality, Scaly Assessed -Color (Brittany-wound Skin Appearance) Assessed No Abnormality, Assessed -Temperature (Brittany-wound Skin No Abnormality No Abnormality Appearance) (Pt Warm) (Pt Warm) -Tenderness on Palpation (Brittany-wound No No Skin Appearance) -Ulcer Cleansing Rinsed/ Rinsed/ Irrigated with Irrigated with Saline Saline -Foul Odor after Cleansing No No -Anesthetic Used 5% Lidocaine 5% Lidocaine Gel Gel WC - Nurse 2 - General Ulcer CM Notes Start: 02/06/22 11:29 Freq: Status: Active Protocol: Activity Type Activity Date Activity User E-sign Co-sign Detail Recorded Client Recorded Date Recorded By Document 02/06/22 11:53 [id number] 02/06/22 11:54 Document 02/27/22 11:33 [id number] 02/27/22 11:36 02/06/22 02/27/22 11:53 11:33 Wound Center Nurse 2 #6 L HALLUX PLANTAR -Time 11:53 11:33 -Correct Patient Yes Yes -Correct Side, Site, Position Yes Yes -Correct Procedure Yes Yes -Procedure Performed Yes Yes -Type of Procedure Debridement Debridement -Clinical Debridement Subcutaneous Subcutaneous -Tissue Removed Subcutaneous Subcutaneous -Post Debridement (cm) - Length 2.0 1.4 -Post Debridement (cm) - Width 1.3 1 -Post Debridement (cm) - Depth 0.2 0.2 -Total Square (Post) (cm) 2.60 1.4 -Area of Debridement (cm) - Length 2.0 1.4 -Area of Debridement (cm) - Width 1.3 1.0 -Total Square (Area) (cm) 2.60 1.40 -Tunneling No No -Undermining/Tunneling No No -Circular Undermining No No -Wound/Ulcer Outcome Not Healed Not Healed -Ulcer Cleansing Rinsed/ Rinsed/ Irrigated with Irrigated with Saline Saline -Foul Odor after Cleansing No No -Bioengineered Tissue No No -Bleeding Controlled with Pressure Pressure -Treatment Response Procedure Procedure Tolerated Well Tolerated Well -Offloading No Yes -Type of Offloading Camwalker -Debridement - Subq, 1st 20sq cm Yes Yes Pain Scale: 0-10 Numeric Is Patient Pain Free? Yes Yes - Nurse 3 - General Ulcer D/C NN Start: 02/06/22 11:29 Freq: Status: Active Protocol: Activity Type Activity Date Activity User E-sign Co-sign Detail Recorded Client Recorded Date Recorded By Document 02/06/22 12:03 [facility] [id number] 02/06/22 12:03 [facility] 02/06/22 12:03 Wound Care Nurse 3 #6 L HALLUX PLANTAR -Ulcer Cleansing Rinsed/ Irrigated with Saline -Foul Odor after Cleansing No -Other Dressing hydrogel -Primary Dressing Covered/Secured with Dry Gauze, Secured with Tape -Other Covering drsg per mw rn Treatment Response Procedure Tolerated Well Pain Scale: 0-10 Numeric Is Patient Pain Free? Yes - Visit Discharge Discharge Condition Stable Ambulatory Status Ambulatory Transportation Private Auto Assessment/Plan Assessment/Plan (1) Type 2 diabetes mellitus with diabetic polyneuropathy: CODE(S): E11.42 - Type 2 diabetes mellitus with diabetic polyneuropathy QUALIFIERS: Diabetes mellitus rn long term care insulin use: with rn long term care use Qualified Code(s): E11.42 - Type 2 diabetes mellitus with diabetic polyneuropathy; Z79.4 - exterminator (current) use of insulin (2) Chronic ulcer of left foot with fat layer exposed: CODE(S): L97.522 - Non-pressure chronic ulcer of other part of left foot with fat layer exposed (3) Acquired hallux limitus of left foot: CODE(S): M20.5X2 - Other deformities of toe(s) (acquired), left foot (4) Delayed wound healing: CODE(S): T14.8XXD - Other injury of unspecified body region, subsequent encounter (5) Localized edema: CODE(S): R60.0 - Localized edema (6) Achilles rupture, right: CODE(S): S86.011A - Strain of right Achilles tendon, initial encounter (7) Other hereditary and idiopathic neuropathies: CODE(S): G60.8 - Other hereditary and idiopathic neuropathies PLAN: Plan Patient examined evaluated all fine discussed patient detail. Due to presence of hallux rigidus chronic left hallux ulceration failing offloading with cam boot we will plan for hallux arthroplasty of the interphalangeal joint on the left foot to accelerate wound healing. Today the wound was noted to be unchanged from previous visit. Left hallux wound was excisionally debrided down to including level subcutaneous tissue of all nonviable tissue using a #15 blade without incident patient tolerated procedure well hemostasis obtained with light compression. No anesthesia due to neuropathy. Pre and postdebridement measurements document nursing notes. Patient will continue offloading with a cam boot. Due to some increased drainage we will switch the dressing to silver alginate DSD on a daily basis. Patient will soap and water wash of the wound site on a daily basis dried off. Patient will follow up in 3 weeks.
== END 2022-03-05 23:59 | disposition home or self-care (01) ==
LOC: WC 11:15
PROVIDERS: PCP Internal Medicine Cardiovascular Disease; Visit Provider Podiatrist
DX: E11.621 Type 2 diabetes mellitus with foot ulcer (principal); L97.522 Non-pressure chronic ulcer of other part of left foot with fat layer exposed; E11.42 Type 2 diabetes mellitus with diabetic polyneuropathy; Z79.4 Long term (current) use of insulin; R60.0 Localized edema; G60.9 Hereditary and idiopathic neuropathy, unspecified
CPT/HCPCS: 11042

== ENCOUNTER 2022-04-03 11:10 | Outpatient (RCR) | payer MEDICARE, MEDICAID, SELFPAY ==
[2022-03-06 00:19] VITALS: BP 126/78; PULSE 82; RESP 16; TEMP 36.2
[2022-04-03 11:11] VITALS: BP 131/72; PULSE 87; RESP 20; TEMP 36.1
--- NOTE | 2022-04-03 12:07 | PN.PCM_ITS ---
History of Present Illness Date of Service: 04/03/22 Chief Complaint: Left great toe ulcer History of Wound: This 61-year-old diabetic male with comorbidities including diabetes and history of foot ulcerations. He follows up today for left hallux wound. Patient notes he put in his previous 2 visits due to COVID. He denies redness or odor. He denies fever, chill, nausea, vomiting. Objective Data Objective Data Vital Signs: Vital Signs Temp Pulse Resp BP 96.9 F L 87 20 H 131/72 H 04/03/22 11:11 04/03/22 11:11 04/03/22 11:11 04/03/22 11:11 Physical Exam Const alert and no apparent distress Extremity no calf tenderness Skin Wounds: wounds noted Wound Narrative: ulcer noted to left hallux plantar medial. Granular base noted. There is some maceration, Deep tissue, or necrosis or infection noted today No malodor, erythema, purulence, probing to bone, streaking, fluctuation, crepitus, or other signs of infection. Skin is atrophic and hairless. decreased left hallux IPJ/MPJ Range of motion There is a less notable palpable dell to the right Achilles rupture site and decrease pain and edema. The plantar right heel does have a palpable area of induration without visualized foreign body, bogginess, fluctuance, blister, drainage or local infection. There is no warmth to touch Neuro Neuro Narrative: lack of epicritic sensation via light touch is consistent with neuropathy status Debridement Note Debridement Note Post-Debridement Measurements and Additional Note: Post-Debridement Measurements/Treatment MELANY - Nurse 1 - General Ulcer Assessment Start: 04/03/22 11:11 Freq: Status: Active Protocol: ARIELLE Activity Type Activity Date Activity User E-sign Co-sign Detail Recorded Client Recorded Date Recorded By Document 04/03/22 11:11 DL [id number] 04/03/22 11:14 DL 04/03/22 11:11 - Today's Visit Information Type of service Follow-up Visit (Physician/LANGUAGE PATHOLOGIST ) Arrival Mode Ambulatory Transfer Assistance None Patient Identification Verified (Name & Yes ) Patient Requires Transmission-Based No Precautions Vital Signs Temperature (97.8 F-99.1 F) 96.9 F L Temperature Source Temporal Pulse Rate (60-100) 87 Pulse Location Monitor Respiratory Rate (12-18) 20 H Respiratory rate source Observation Blood Pressure (90/60-120/80) 131/72 H Blood Pressure Mean (mm Hg) 91 Source Monitor History Since Last Visit- (Skip if this is Patient's initial visit) Have you changed medications since your No last visit? Any new allergies or adverse reactions No Had a fall/change in ADL's that may No increase risk of falls Signs or symptoms of abuse and/or No neglect since last visit Have you been in the hospital since your No last visit? Has dressing in place as prescribed Yes Has compression in place as prescribed No Has offloadiing in place as prescribed No Experienced any changes in pain level or No management Left Footwear Slipper Right Footwear Slipper Pain Scale: 0-10 Numeric Is Patient Pain Free? Yes - Nurse 1 - General Ulcer Measurement Start: 04/03/22 11:11 Freq: Status: Active Protocol: Activity Type Activity Date Activity User E-sign Co-sign Detail Recorded Client Recorded Date Recorded By Document 04/03/22 11:11 DL [id number] 04/03/22 11:14 DL 04/03/22 11:11 Wound Center Nurse 1 #6 L HALLUX PLANTAR -Photo Taken Yes -Exudate Amt Small -Exudate Type Serosanguineous -Wound Margin Distinct, Outline Attached -Granulation Amt Large (67-100%) -Granulation Quality [place] -Necrosis Amt None Present (0 %) -Structure Exposed N/A -Texture (Brittany-wound Skin Appearance) Callus,Scarring -Moisture (Brittany-wound Skin Appearance) Dry/Scaly -Color (Brittany-wound Skin Appearance) No Abnormality -Temperature (Brittany-wound Skin No Abnormality Appearance) (Pt Warm) -Tenderness on Palpation (Brittany-wound No Skin Appearance) -Ulcer Cleansing Soap and Water -Foul Odor after Cleansing No -Anesthetic Used 5% Lidocaine Gel WC - Nurse 2 - General Ulcer CM Notes Start: 04/03/22 11:11 Freq: Status: Active Protocol: Activity Type Activity Date Activity User E-sign Co-sign Detail Recorded Client Recorded Date Recorded By Document 04/03/22 11:49 MICHAEL [id number] 04/03/22 12:05 MICHAEL 04/03/22 11:49 Wound Center Nurse 2 -Time 11:49 -Correct Patient Yes -Correct Side, Site, Position Yes -Correct Procedure Yes -Procedure Performed Yes -Type of Procedure Debridement -Clinical Debridement Subcutaneous -Tissue Removed Subcutaneous -Post Debridement (cm) - Length 1.6 -Post Debridement (cm) - Width 1.1 -Post Debridement (cm) - Depth 0.1 -Total Square (Post) (cm) 1.76 -Area of Debridement (cm) - Length 1.6 -Area of Debridement (cm) - Width 1.1 -Total Square (Area) (cm) 1.76 -Tunneling No -Undermining/Tunneling No -Circular Undermining No -Wound/Ulcer Outcome Not Healed -Ulcer Cleansing Rinsed/ Irrigated with Saline -Foul Odor after Cleansing No -Bioengineered Tissue No -Bleeding Controlled with Pressure -Treatment Response Procedure Tolerated Well -Offloading Yes -Type of Offloading Surgical Shoe -Debridement - Subq, 1st 20sq cm Yes Pain Scale: 0-10 Numeric Is Patient Pain Free? Yes Assessment/Plan Assessment/Plan (1) Type 2 diabetes mellitus with diabetic polyneuropathy: CODE(S): E11.42 - Type 2 diabetes mellitus with diabetic polyneuropathy QUALIFIERS: Diabetes mellitus emt intermediate insulin use: with emt intermediate use Qualified Code(s): E11.42 - Type 2 diabetes mellitus with diabetic polyneuropathy; Z79.4 - nursing home (current) use of insulin (2) Chronic ulcer of left foot with fat layer exposed: CODE(S): L97.522 - Non-pressure chronic ulcer of other part of left foot with fat layer exposed (3) Acquired hallux limitus of left foot: CODE(S): M20.5X2 - Other deformities of toe(s) (acquired), left foot (4) Delayed wound healing: CODE(S): T14.8XXD - Other injury of unspecified body region, subsequent encounter (5) Localized edema: CODE(S): R60.0 - Localized edema (6) Achilles rupture, right: CODE(S): S86.011A - Strain of right Achilles tendon, initial encounter (7) Other hereditary and idiopathic neuropathies: CODE(S): G60.8 - Other hereditary and idiopathic neuropathies PLAN: Plan Patient examined evaluated all fine discussed patient detail. Due to presence of hallux rigidus chronic left hallux ulceration failing offloading with cam boot we will plan for hallux arthroplasty of the interphalangeal joint on the left foot to accelerate wound healing. Today the wound was noted to be unchanged from previous visit. Left hallux wound was excisionally debrided down to including level subcutaneous tissue of all nonviable tissue using a #15 blade without incident patient tolerated procedure well hemostasis obtained with light compression. No anesthesia due to neuropathy. Pre and postdebridement measurements document nursing notes. Patient will continue offloading with a cam boot. Due to some increased drainage we will switch the dressing to silver alginate DSD on a daily basis. Patient will soap and water wash of the wound site on a daily basis dried off. Patient will follow up in 3 weeks. Due to history of chronic right Achilles tendon rupture. I ordered an Marichuy brace to stabilize the right ankle in order for the patient to tolerate nonweightbearing the left foot during postoperative recovery. Decision for elective surgery was deferred initially due to lack of consistency with follow-up and following recommendations.
[2022-04-03 14:02] LABS: Hemoglobin A1c 8.8 % (3.8-5.6)
== END 2022-04-04 23:59 | disposition home or self-care (01) ==
LOC: WC 11:10
PROVIDERS: PCP Internal Medicine Cardiovascular Disease; Visit Provider Podiatrist
DX: E11.621 Type 2 diabetes mellitus with foot ulcer (principal); L97.522 Non-pressure chronic ulcer of other part of left foot with fat layer exposed; E11.42 Type 2 diabetes mellitus with diabetic polyneuropathy; Z79.4 Long term (current) use of insulin; G60.9 Hereditary and idiopathic neuropathy, unspecified; Z86.16 Personal history of COVID-19; R60.0 Localized edema; M20.5X2 Other deformities of toe(s) (acquired), left foot
CPT/HCPCS: 11042; 36415; 83036

== ENCOUNTER 2022-05-01 11:43 | Outpatient (RCR) | payer MEDICARE, MEDICAID, SELFPAY ==
[2022-04-05 00:19] VITALS: BP 131/72; PULSE 87; RESP 20; TEMP 36.1
[2022-05-01 11:35] VITALS: BP 146/84; PULSE 84; RESP 16; TEMP 36.6
--- NOTE | 2022-05-01 12:11 | PN.PCM_ITS ---
History of Present Illness Date of Service: 05/01/22 Chief Complaint: Left great toe ulcer History of Wound: This 61-year-old diabetic male with comorbidities including diabetes and history of foot ulcerations. He follows up today for left hallux wound. He denies redness or odor. He denies fever, chill, nausea, vomiting. Objective Data Objective Data Vital Signs: Vital Signs Temp Pulse Resp BP O2 Del Method 97.8 F 84 16 146/84 H Room Air 05/01/22 11:35 05/01/22 11:35 05/01/22 11:35 05/01/22 11:35 05/01/22 11:35 Oxygen Delivery Method Room Air Physical Exam Const alert and no apparent distress Extremity no calf tenderness Skin Wounds: wounds noted Wound Narrative: ulcer noted to left hallux plantar medial. Granular base noted. There is some maceration, Deep tissue, or necrosis or infection noted today No malodor, erythema, purulence, probing to bone, streaking, fluctuation, crepitus, or other signs of infection. Skin is atrophic and hairless. decreased left hallux IPJ/MPJ Range of motion There is a less notable palpable dell to the right Achilles rupture site and decrease pain and edema. The plantar right heel does have a palpable area of induration without visualized foreign body, bogginess, fluctuance, blister, drainage or local infection. There is no warmth to touch Neuro Neuro Narrative: lack of epicritic sensation via light touch is consistent with neuropathy status Debridement Note Debridement Note Post-Debridement Measurements and Additional Note: Post-Debridement Measurements/Treatment - Nurse 1 - General Ulcer Assessment Start: 05/01/22 11:35 Freq: Status: Active Protocol: [email or web address] Activity Type Activity Date Activity User E-sign Co-sign Detail Recorded Client Recorded Date Recorded By Document 05/01/22 11:35 [facility] [id number] 05/01/22 11:39 [facility] 05/01/22 11:35 - Today's Visit Information Type of service Follow-up Visit (Physician/TERADATA ARCHITECT ) Arrival Mode Ambulatory Transfer Assistance None Patient Identification Verified (Name & Yes ) Patient Requires Transmission-Based No Precautions Vital Signs Temperature (97.8 F-99.1 F) 97.8 F Temperature Source Temporal Pulse Rate (60-100) 84 Pulse Location Monitor Respiratory Rate (12-18) 16 Respiratory rate source Observation Oxygen Delivery Method Room Air Blood Pressure (90/60-120/80) 146/84 H Blood Pressure Mean (mm Hg) 104 Source Monitor Position Sitting Blood Pressure Location Left Forearm History Since Last Visit- (Skip if this is Patient's initial visit) Have you changed medications since your No last visit? Any new allergies or adverse reactions No Had a fall/change in ADL's that may No increase risk of falls Signs or symptoms of abuse and/or No neglect since last visit Have you been in the hospital since your No last visit? Has dressing in place as prescribed Yes Has compression in place as prescribed N/A Has offloadiing in place as prescribed N/A Experienced any changes in pain level or No management Left Footwear Slipper Right Footwear Slipper Pain Scale: 0-10 Numeric Is Patient Pain Free? Yes WC - Nurse 1 - General Ulcer Measurement Start: 05/01/22 11:35 Freq: Status: Active Protocol: Activity Type Activity Date Activity User E-sign Co-sign Detail Recorded Client Recorded Date Recorded By Document 05/01/22 11:35 [facility] [id number] 05/01/22 11:39 [facility] 05/01/22 11:35 Wound Center Nurse 1 #6 L HALLUX PLANTAR -Combined with other wound No -Current Size (cm) - Length 1.2 -Current Size (cm) - Width 1.0 -Current Size (cm) - Depth 0.1 -Total Square Cm 1.20 -Date of Last Picture (Recall this 05/01/22 field) -Photo Taken Yes -Epithelialization None Present -Tunneling No -Undermining/Tunneling No -Circular Undermining No -Exudate Amt Medium -Exudate Type Serosanguineous -Wound Margin Distinct, Outline Attached -Granulation Amt Large (67-100%) -Granulation Quality Red -Slough/Fibrin No -Necrosis Amt None Present (0 %) -Texture (Brittany-wound Skin Appearance) Assessed,Callus ,Scarring -Moisture (Brittany-wound Skin Appearance) Assessed,Dry/ Scaly -Color (Brittany-wound Skin Appearance) Assessed -Temperature (Brittany-wound Skin No Abnormality Appearance) (Pt Warm) -Tenderness on Palpation (Brittany-wound No Skin Appearance) -Ulcer Cleansing Rinsed/ Irrigated with Saline -Foul Odor after Cleansing No -Anesthetic Used 5% Lidocaine Gel WC - Nurse 2 - General Ulcer CM Notes Start: 05/01/22 11:35 Freq: Status: Active Protocol: Activity Type Activity Date Activity User E-sign Co-sign Detail Recorded Client Recorded Date Recorded By Document 05/01/22 12:01 MICHAEL [id number] 05/01/22 12:05 MICHAEL 05/01/22 12:01 Wound Center Nurse 2 -Time 12:04 -Correct Patient Yes -Correct Side, Site, Position Yes -Correct Procedure Yes -Procedure Performed Yes -Type of Procedure Debridement -Clinical Debridement Subcutaneous -Tissue Removed Subcutaneous -Post Debridement (cm) - Length 1.4 -Post Debridement (cm) - Width 1.4 -Post Debridement (cm) - Depth 0.2 -Total Square (Post) (cm) 1.96 -Area of Debridement (cm) - Length 1.4 -Area of Debridement (cm) - Width 1.4 -Total Square (Area) (cm) 1.96 -Tunneling No -Undermining/Tunneling No -Circular Undermining No -Wound/Ulcer Outcome Not Healed -Ulcer Cleansing Rinsed/ Irrigated with Saline -Foul Odor after Cleansing No -Bioengineered Tissue No -Bleeding Controlled with Pressure -Treatment Response Procedure Tolerated Well -Offloading No -Debridement - Subq, 1st 20sq cm Yes Pain Scale: 0-10 Numeric Is Patient Pain Free? 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 insulin (2) Chronic ulcer of left foot with fat layer exposed: CODE(S): L97.522 - Non-pressure chronic ulcer of other part of left foot with fat layer exposed (3) Acquired hallux limitus of left foot: CODE(S): M20.5X2 - Other deformities of toe(s) (acquired), left foot (4) Delayed wound healing: CODE(S): T14.8XXD - Other injury of unspecified body region, subsequent encounter (5) Localized edema: CODE(S): R60.0 - Localized edema (6) Achilles rupture, right: CODE(S): S86.011A - Strain of right Achilles tendon, initial encounter (7) Other hereditary and idiopathic neuropathies: CODE(S): G60.8 - Other hereditary and idiopathic neuropathies PLAN: Plan Patient examined evaluated all fine discussed patient detail. Due to presence of hallux rigidus chronic left hallux ulceration failing offloading with cam boot we will plan for hallux arthroplasty of the interphalangeal joint on the left foot to accelerate wound healing. Today the wound was noted to be unchanged from previous visit. Left hallux wound was excisionally debrided down to including level subcutaneous tissue of all nonviable tissue using a #15 blade without incident patient tolerated procedure well hemostasis obtained with light compression. No anesthesia due to neuropathy. Pre and postdebridement measurements document nursing notes. Patient will continue offloading with a cam boot. Due to some increased drainage we will switch the dressing to silver alginate DSD on a daily basis. Patient will soap and water wash of the wound site on a daily basis dried off. Patient will follow up in 3 weeks. Due to history of chronic right Achilles tendon rupture. Awaiting [facility]. Patient continues to [facility] to offload the meantime. Decision for elective surgery was deferred initially due to lack of consistency with follow-up and following recommendations. Recent A1c 8.8 04/02/2022. Discussed that this is elevated patient is working on it. I recommended that it should be under 7 for elective procedure but if patient understands her increased risk with healing complications postoperatively we will proceed. Patient understands and is attempting improved control.
== END 2022-05-05 23:59 | disposition home or self-care (01) ==
LOC: WC 11:43
PROVIDERS: PCP Internal Medicine Cardiovascular Disease; Visit Provider Podiatrist
DX: E11.621 Type 2 diabetes mellitus with foot ulcer (principal); L97.522 Non-pressure chronic ulcer of other part of left foot with fat layer exposed; E11.42 Type 2 diabetes mellitus with diabetic polyneuropathy; Z79.4 Long term (current) use of insulin; R60.0 Localized edema; G60.8 Other hereditary and idiopathic neuropathies
CPT/HCPCS: 11042

== ENCOUNTER 2022-05-15 10:37 | Outpatient (RCR) | payer MEDICARE, MEDICAID, SELFPAY ==
[2022-05-06 00:16] VITALS: BP 146/84; PULSE 84; RESP 16; TEMP 36.6
[2022-05-15 11:01] VITALS: BP 119/68; PULSE 80; RESP 18; TEMP 35.6
--- NOTE | 2022-05-15 11:25 | PCM.WC.PN ---
History of Present Illness Date of Service: 05/15/22 Chief Complaint: Left great toe ulcer History of Wound: This 61-year-old diabetic male with comorbidities including diabetes and history of foot ulcerations. He follows up today for left hallux wound. He denies redness or odor. He denies fever, chill, nausea, vomiting. Objective Data Objective Data Vital Signs: Vital Signs Temp Pulse Resp BP O2 Del Method 96.0 F L 80 18 119/68 Room Air 05/15/22 11:01 05/15/22 11:01 05/15/22 11:01 05/15/22 11:01 05/15/22 11:01 Oxygen Delivery Method Room Air Physical Exam Const alert and no apparent distress Extremity no calf tenderness Skin Wounds: wounds noted Wound Narrative: ulcer noted to left hallux plantar medial. Granular base noted. There is some maceration, Deep tissue, or necrosis or infection noted today No malodor, erythema, purulence, probing to bone, streaking, fluctuation, crepitus, or other signs of infection. Skin is atrophic and hairless. decreased left hallux IPJ/MPJ Range of motion There is a less notable palpable dell to the right Achilles rupture site and decrease pain and edema. The plantar right heel does have a palpable area of induration without visualized foreign body, bogginess, fluctuance, blister, drainage or local infection. There is no warmth to touch Neuro Neuro Narrative: lack of epicritic sensation via light touch is consistent with neuropathy status Debridement Note Debridement Note Post-Debridement Measurements and Additional Note: Post-Debridement Measurements/Treatment - Nurse 1 - General Ulcer Assessment Start: 05/15/22 11:01 Freq: Status: Active Protocol: ARIELLE Activity Type Activity Date Activity User E-sign Co-sign Detail Recorded Client Recorded Date Recorded By Document 05/15/22 11:01 [id number] 05/15/22 11:03 05/15/22 11:01 - Today's Visit Information Type of service Follow-up Visit (Physician/PEOPLE MANAGER ) Arrival Mode Ambulatory Transfer Assistance None Accompanied by self Patient Identification Verified (Name & Yes ) Patient Requires Transmission-Based No Precautions Safety Precautions NA Vital Signs Temperature (97.8 F-99.1 F) 96.0 F L Temperature Source Temporal Pulse Rate (60-100) 80 Pulse Location Monitor Respiratory Rate (12-18) 18 Respiratory rate source Observation Oxygen Delivery Method Room Air Blood Pressure (90/60-120/80) 119/68 Blood Pressure Mean (mm Hg) 85 Source Monitor Position Sitting Blood Pressure Location Left Forearm History Since Last Visit- (Skip if this is Patient's initial visit) Have you changed medications since your No last visit? Any new allergies or adverse reactions No Had a fall/change in ADL's that may No increase risk of falls Signs or symptoms of abuse and/or No neglect since last visit Has dressing in place as prescribed Yes Has compression in place as prescribed N/A Has offloadiing in place as prescribed N/A Experienced any changes in pain level or No management Left Footwear Regular Shoe Right Footwear Regular Shoe Pain Scale: 0-10 Numeric Is Patient Pain Free? Yes WC - Nurse 1 - General Ulcer Measurement Start: 05/15/22 11:01 Freq: Status: Active Protocol: Activity Type Activity Date Activity User E-sign Co-sign Detail Recorded Client Recorded Date Recorded By Document 05/15/22 11:01 MW [id number] 05/15/22 11:03 MW 05/15/22 11:01 Wound Center Nurse 1 #6 L HALLUX PLANTAR -Combined with other wound No -Current Size (cm) - Length 1.4 -Current Size (cm) - Width 1.4 -Current Size (cm) - Depth 0.1 -Total Square Cm 1.96 -Date of Last Picture (Recall this 05/15/22 field) -Photo Taken Yes -Epithelialization None Present -Tunneling No -Undermining/Tunneling No -Circular Undermining No -Exudate Amt Medium -Exudate Type Serosanguineous -Wound Margin Flat & Intact -Granulation Amt Large (67-100%) -Granulation Quality [place] -Slough/Fibrin Yes -Necrosis Amt Small (1-33%) -Necrotic Tissue Type Adherent Slough -Structure Exposed N/A -Texture (Brittany-wound Skin Appearance) Assessed,Callus ,Scarring -Moisture (Brittany-wound Skin Appearance) Assessed, Maceration -Color (Brittany-wound Skin Appearance) No Abnormality, Assessed -Temperature (Brittany-wound Skin No Abnormality Appearance) (Pt Warm) -Tenderness on Palpation (Brittany-wound No Skin Appearance) -Ulcer Cleansing Rinsed/ Irrigated with Saline -Foul Odor after Cleansing No -Anesthetic Used 5% Lidocaine Gel Lower Limb Edema Present No WC - Nurse 2 - General Ulcer CM Notes Start: 05/15/22 11:01 Freq: Status: Active Protocol: Activity Type Activity Date Activity User E-sign Co-sign Detail Recorded Client Recorded Date Recorded By Document 05/15/22 11:22 MICHAEL [id number] 05/15/22 11:23 MICHAEL 05/15/22 11:22 Wound Center Nurse 2 #6 L HALLUX PLANTAR -Time 11:23 -Correct Patient Yes -Correct Side, Site, Position Yes -Correct Procedure Yes -Procedure Performed Yes -Type of Procedure Debridement -Clinical Debridement Subcutaneous -Tissue Removed Subcutaneous -Post Debridement (cm) - Length 1.4 -Post Debridement (cm) - Width 1.6 -Post Debridement (cm) - Depth 0.2 -Total Square (Post) (cm) 2.24 -Area of Debridement (cm) - Length 1.4 -Area of Debridement (cm) - Width 1.6 -Total Square (Area) (cm) 2.24 -Tunneling No -Undermining/Tunneling No -Circular Undermining No -Wound/Ulcer Outcome Not Healed -Ulcer Cleansing Rinsed/ Irrigated with Saline -Foul Odor after Cleansing No -Bioengineered Tissue No -Bleeding Controlled with Pressure -Treatment Response Procedure Tolerated Well -Offloading No -Debridement - Subq, 1st 20sq cm Yes Pain Scale: 0-10 Numeric Is Patient Pain Free? Yes Assessment/Plan Assessment/Plan (1) Type 2 diabetes mellitus with diabetic polyneuropathy: CODE(S): E11.42 - Type 2 diabetes mellitus with diabetic polyneuropathy QUALIFIERS: Diabetes mellitus [facility] insulin use: with [facility] use Qualified Code(s): E11.42 - Type 2 diabetes mellitus with diabetic polyneuropathy; Z79.4 - skilled nursing (current) use of insulin (2) Chronic ulcer of left foot with fat layer exposed: CODE(S): L97.522 - Non-pressure chronic ulcer of other part of left foot with fat layer exposed (3) Acquired hallux limitus of left foot: CODE(S): M20.5X2 - Other deformities of toe(s) (acquired), left foot (4) Delayed wound healing: CODE(S): T14.8XXD - Other injury of unspecified body region, subsequent encounter (5) Localized edema: CODE(S): R60.0 - Localized edema (6) Achilles rupture, right: CODE(S): S86.011A - Strain of right Achilles tendon, initial encounter (7) Other hereditary and idiopathic neuropathies: CODE(S): G60.8 - Other hereditary and idiopathic neuropathies PLAN: Plan Patient examined evaluated all fine discussed patient detail. Due to presence of hallux rigidus chronic left hallux ulceration failing offloading with cam boot we will plan for hallux arthroplasty of the interphalangeal joint on the left foot to accelerate wound healing. Today the wound was noted to be unchanged from previous visit. Left hallux wound was excisionally debrided down to including level subcutaneous tissue of all nonviable tissue using a #15 blade without incident patient tolerated procedure well hemostasis obtained with light compression. No anesthesia due to neuropathy. Pre and postdebridement measurements document nursing notes. Patient will continue offloading with a cam boot. Due to some increased drainage we will switch the dressing to silver alginate DSD on a daily basis. Patient will soap and water wash of the wound site on a daily basis dried off. Patient will follow up in 3 weeks. Planning for surgical intervention 06/01/22 Due to history of chronic right Achilles tendon rupture. Awaiting [facility]. Patient continues to [facility] to offload the meantime. \
== END 2022-05-15 15:53 | disposition home or self-care (01) ==
LOC: WC 10:37
PROVIDERS: PCP Internal Medicine Cardiovascular Disease; Visit Provider Podiatrist
DX: E11.621 Type 2 diabetes mellitus with foot ulcer (principal); L97.522 Non-pressure chronic ulcer of other part of left foot with fat layer exposed; E11.42 Type 2 diabetes mellitus with diabetic polyneuropathy; Z79.4 Long term (current) use of insulin; G60.9 Hereditary and idiopathic neuropathy, unspecified; R60.0 Localized edema; M20.5X2 Other deformities of toe(s) (acquired), left foot
CPT/HCPCS: 11042

== ENCOUNTER 2022-06-01 09:16 | Day surgery (SDC) | payer MEDICARE, MEDICAID, SELFPAY ==
[2022-05-21 15:15] LABS: Absolute Lymphocyte Count 2.29 X10^3/uL (0.83-4.51); Basophil# 0.07 X10^3/uL; Basophil% 0.8 % (0-1); Eosinophil# 0.22 X10^3/uL; Eosinophils% 2.6 % (0-5); Hematocrit 47.1 % (40-54); Lymphocyte # 2.29 X10^3/ul (0.83-4.51); Lymphocyte % 27.3 % (19-41); Mean Corpuscular Volume 88.2 fL (80-94); Mean Platelet Vol. 11.8 fl (6.2-12.0); Monocyte# 0.79 X10^3/uL; Monocyte% 9.4 % (0-10); NRBC Flagged by Analyzer 0 % (0-5); Neutrophil # 4.98 X10^3/uL (2.7-7.7); Neutrophil % 59.5 % (47-70); Platelet Count 168 K/mm3 (150-450); RBC Distribution Width CV 13.2 % (11.6-14.6); RBC Distribution Width SD 42.7 fl (35.1-43.9); Red Blood Count 5.34 M/mm3 (4.6-6.2); White Blood Count 8.4 K/mm3 (4.4-11.0)
[2022-05-21 15:35] LABS: ALB/GLOB Ratio 1.1 RATIO (0.9-2.4); AST(SGOT) 24 U/L (15-37); Alanine Aminotransfer ALT/SGPT 41 U/L (16-61); Albumin, Serum 4.1 g/dL (3.2-5.0); Alkaline Phosphatase 67 U/L (45-117); Anion Gap 12 (5-15); BUN 14 mg/dL (7-18); BUN/Creat Ratio 12.2 RATIO (10-20); Calcium,Total 9.7 mg/dL (8.5-10.1); Chloride 104 mmol/L (98-107); Creatinine, Serum 1.15 mg/dL (0.70-1.30); EST Glomerular Filtration Rate 69 mL/min (>60); Est Glom Filt Rate - Afr Amer 83 mL/min (>60); Globulin 3.7 g/dL (2.2-4.2); Glucose 157 mg/dL (74-106); Potassium 3.8 mmol/L (3.5-5.1); Protein, Total 7.8 g/dL (6.4-8.2); Sodium Level 141 mmol/L (136-145)
[2022-06-01] VITALS (7 sets, daily range): BP systolic 105–143; BP diastolic 64–77; PULSE 65–72; RESP 16–18; TEMP 36.1–36.7; O2SAT 94–98; BMI 46.5
[2022-06-01] MEDS: Lactated Ringers 1,000 ML 15 ML IV (09:50)
[2022-06-01 10:45] LABS: Bedside Glucose 252 mg/dL (74-106)
--- NOTE | 2022-06-01 10:45 | RAD_ITS ---
STUDY: X-RAY - LEFT FOOT CLINICAL: Male, 61 years old. Hallux valgus arthroplasty. TECHNIQUE: 7 intraoperative digital documentation view(s) of the foot. COMPARISON: Foot images dated October 07, 2020. FINDINGS: 7 intraoperative digital documentation views show arthroplasty changes of the distal first digit. Total exposure time 9 seconds. Longest exposure time 2 seconds. Total DAP 0.8150 cGycm2. Total Air Kerma 0.0485 mGy. RAD/Foot min 3 Views IMPRESSION: Intraoperative digital documentation views as described. Electronically Signed: Mehrdad Oliver, at 13:07 EST ,
--- NOTE | 2022-06-01 11:00 | BONBX_PTH ---
PATIENT: ISA CASTELLANO [place] [facility][id number] AGE/SX: 61/M ROOM: RE06/01/[address]: Dr. Mario Yun DPM : 1960 BED: DIS: 06/01/2022 SPEC #: [id number] RECD: 06/01/22 13:40 STATUS: SHAKA REReinaldo #: [id number] SAUL: 06/01/22 11:[address]: Mario Yun DEPT: SURGICAL PATHOLOGY RECD BY: Alan Ivy ENTERED: 06/01/22 14:04 SP TYPE: Bone OTHR DR: MD RICARDO Craft MD Tissues: A - Bone of foot, NOS B - Bone of foot, NOS Procedures: Decalcification bone/plaque Surgery Specimen Level IV HEADER OPERATION: Hallux interphalangeal joint arthroplasty PRE-OP DIAGNOSIS: Left hallux full thickness ulceration, hallux rigidus TISSUE SUBMITTED: A ? Bone ? left hallux, B - Bone ? left hallux, clearance fragment MICROSCOPIC DIAGNOSIS A. Bone of left hallux, biopsy: Bone with reparative and reactive change. B. Left hallux, clearance fragments, biopsy: Bone with reparative and reactive change. Fibrotendinous tissue with no pathologic change. AM:raquel 06/06/2022 MICROSCOPIC DESCRIPTION Slides are reviewed. GROSS DESCRIPTION A - Received in fixative is one container labeled with the patient's name and designated bone left hallux. The specimen consists of multiple irregular fragments of coello-pink bone ranging in size from 0.8 to 1.6 cm. The bone fragments are sectioned and submitted in their entirety in one cassette after decalcification. B - Received in fixative is one container labeled with the patient's name and designated left hallux clearance fragment. The specimen consists of three irregular fragments of light coello-red bone ranging in size from 0.5 to 3.5 cm. Also present in the specimen container is an irregular fragment of tendinous tissue measuring 2.5 x 1 x 0.5 cm. The specimen is totally submitted in one cassette after decalcification. / AM:raquel 06/01/2022 TC:5 CPT: 27520 x2, 75088 x2
[2022-06-01] MEDS: Bupivacaine 0.5% PF 10 ML VIAL (11:40)
[2022-06-01] MEDS: Bacitracin 500 UNITS/GM PACKET (11:43)
--- NOTE | 2022-06-01 11:53 | OP.PCM_ITS ---
Problems Associated Problem List Diagnoses (1) Non-pressure chronic ulcer of other part of left foot with fat layer exposed: (2) Type 2 diabetes mellitus with diabetic polyneuropathy: (3) Cellulitis of left lower limb: Report of Operation Date of Procedure: 06/01/22 Pre-Operative Diagnosis: 1) Diabetic foot ulcer, left hallux 2) hallux rigidus, left hallux 3) cellulitis, left great toe Post-Operative Diagnosis: same Surgery/Procedure Performed:: 1) Hallux IPJ arthroplasty, Left Hallux 2) Excisional Debridement of Wound to left hallux with application of epicord 3x5cm graft Description of Surgical Findings:: adequately offload left hallux ulcer after arthroplasty, no evidence of deep infection Surgeon: Mario Yun housing project manager: Alicia (Kit Dobson PGYII) Type of Anesthesia: Local MAC Special Medications: none Specimen's removed: Left hallux proximal phalangeal head - pathology left hallux proximal phalanx - clearance fragment for pathology Left hallux proximal phalangeal head - microbiology Drains: None Estimated Blood Loss (mL): 20 cc Description of Procedure: Patient brought back the operating placed comfortably supine position induced under MAC anesthesia all osseous prominences offloaded prevent compression neuropraxia this patient was placed supine on the operating room table. Well- padded left calf tourniquet was applied to left lower extremity. Aseptic block Blount block performed using 10 cc half percent Marcaine plain to the left hallux using standard technique. Left lower extremity scrubbed prepped draped using typical aseptic manner. Once the left lower extremity elevated exsanguinated tourniquet was inflated 250 mmHg. Once cleared by anesthesia a linear incision was made along the medial aspect of the hallucal IPJ full-thickness through the epidermis dermis and cutaneous tissue deep down to the level of the distal and proximal phalanx. Exposing the interphalangeal joint. Care was taken avoid any neurovascular st ructures which were protected with blunt retraction throughout the process. Any bleeders were identified cauterized at this time. The proximal phalangeal head was dissected out and this was removed using a sagittal saw and rongeurs and sent to pathology for further examination. Additional portion of the proximal phalangeal head and hallux interphalangeal joint sesamoid were removed and sent to microbiology for deep wound culture. Additional portion of the proximal phalanx was removed and sent to pathology for clearance fragment to ensure no residual bone infection at the site. Site was flushed with copious amounts normal sterile saline and then closed with deep buried interrupted 4-0 Vicryl. Skin closure performed with horizontal mattress 4-0 Prolene. Full-thickness wound plantar hallux IPJ measuring 1.5 x 1.5 x 0.5 cm. Debridement. Postdebridement the wound was 2 x 2 x 0.8 cm. Wound demonstrated granular base with mild periwound erythema. No other signs of infection. All nonviable tissue was removed. This wound was debrided down to including level of subcutaneous tissue of all nonviable tissue. Healthy bleeding noted to the site. Overlying 3 x 5 cm epi cord graft was applied and stabilized with 4-0 Prolene and overlying Adaptic to the incision sites. Along with 4 x 4's Kerlix and Rafael bandage. Tourniquet time was deflated prior to incisional closure and total time was noted to be 39 minutes. Patient tolerated procedure and anesthesia well in apparent satisfactory condition was transferred back to PACU vital signs stable and vascular status intact all digits for further monitoring prior to discharge. Patient be discharged on oral antibiotics we will follow his wound cultures to ensure no residual antibiotics or treatment will be required. No complications
== END 2022-06-01 12:49 | disposition home or self-care (01) ==
LOC: SDC 09:18 → AC 09:19
PROVIDERS: Family Medicine; PCP Internal Medicine Cardiovascular Disease; Referring Provider Podiatrist; Visit Provider Podiatrist
PROC: (CPT 28755; principal; 2022-06-01 10:45)
DX: E11.621 Type 2 diabetes mellitus with foot ulcer (principal); L97.522 Non-pressure chronic ulcer of other part of left foot with fat layer exposed; E11.42 Type 2 diabetes mellitus with diabetic polyneuropathy; Z68.42 Body mass index [BMI] 45.0-49.9, adult; Z79.4 Long term (current) use of insulin; M20.22 Hallux rigidus, left foot; L03.032 Cellulitis of left toe; I10 Essential (primary) hypertension; E66.9 Obesity, unspecified; F17.290 Nicotine dependence, other tobacco product, uncomplicated; Z79.82 Long term (current) use of aspirin; Z79.84 Long term (current) use of oral hypoglycemic drugs; Z79.891 Long term (current) use of opiate analgesic; Z79.899 Other long term (current) drug therapy
CPT/HCPCS: 28755; 11042; 01480; 36415; 73630; 76000; 80053; 82962; 85025; 87070; 87075; 87176; 87205; 88305; 88307; 88311; J7120; J2405

== ENCOUNTER → 2022-06-08 | Outpatient (CLI) | payer MEDICARE, MEDICAID, SELFPAY ==
--- NOTE | 2022-06-08 13:20 | VDLE_ITS ---
Reason For Study: SWELLING R>L RIGHT LEFT GSV is normal. GSV is normal. CFV is compressible, spontaneous, phasic, CFV is compressible, spontaneous, phasic, competent and demonstrates normal competent, and demonstrates normal augmentation. augmentation. FV is compressible, spontaneous, phasic, FV is compressible, spontaneous, phasic, competent and demonstrates normal competent and demonstrates normal augmentation. augmentation. POP V is compressible, spontaneous, phasic, POP V is compressible, spontaneous, phasic, competent and demonstrates normal competent and demonstrates normal augmentation. augmentation. T/P Trunk is compressible. T/P Trunk is compressible. PTV is compressible. PTV is compressible. RT PerV is compressible. LT PerV is compressible. Procedure This is a venous duplex using B-mode, color flow and spectral Doppler. Exam performed in department. The study was technically difficult. D/T body habitus. A preliminary report was called and/or faxed to Dr. Yun @ [phone] @ 2 pm. VL/Venous Duplex US - Berry Extrem Interpretation Summary Deep veins of the lower extremities are bilaterally patent and compressible seg mentally. There is no evidence of deep vein thrombosis on either side. Valvular competence appears in tact within the proximal deep venous systems bilaterally. The great saphenous veins appear bila terally patent and compressible segmentally. Ordering Physician: Mario Yun Referring Physician: Romel Abraham Performed By: Aundrea Sprague, RDCS, RVT
== END | disposition home or self-care (01) ==
PROVIDERS: PCP Internal Medicine Cardiovascular Disease; Referring Provider Podiatrist; Visit Provider Podiatrist
DX: R22.43 Localized swelling, mass and lump, lower limb, bilateral (principal)
CPT/HCPCS: 93970

== ENCOUNTER → 2022-08-14 | Outpatient (CLI) | payer MEDICARE, MEDICAID, SELFPAY | END | disposition home or self-care (01) | PROVIDERS: PCP Internal Medicine Cardiovascular Disease; Visit Provider Podiatrist | DX: L97.512 Non-pressure chronic ulcer of other part of right foot with fat layer exposed (principal) | CPT/HCPCS: 87070; 87077; 87186; 87205 ==

== ENCOUNTER → 2022-12-10 | Outpatient (CLI) | payer MEDICARE, MEDICAID, SELFPAY ==
--- NOTE | 2022-12-10 16:42 | RAD_ITS ---
INDICATION: COPD EXAMINATION/TECHNIQUE: X-RAY - XR Chest 2 Views COMPARISON: None. FINDINGS: LINES/DEVICES: None. LUNGS: No consolidation. No pneumothorax. MEDIASTINUM: Aorta atherosclerotic and tortuous. CARDIAC SILHOUETTE: Not enlarged. BONES AND SOFT TISSUES: Surgical hardware likely the left humeral head partially included. RAD/Chest PA and Lateral IMPRESSION: No evidence of active intrathoracic disease. Electronically Signed: Heather Daly MD at 4:35 EDT ,
[2022-12-10 18:03] LABS: Absolute Lymphocyte Count 2.87 X10^3/uL (0.83-4.51); Absolute Neutrophil Count 5.3 X10^3/uL (2.0-7.7); Basophil# 0.07 X10^3/uL; Basophil% 0.8 % (0-1); Eosinophil# 0.16 X10^3/uL; Eosinophils% 1.7 % (0-5); Hematocrit 42.6 % (40-54); Hemoglobin 14.8 g/dL (13.0-16.5); Lymphocyte # 2.87 X10^3/ul (0.83-4.51); Lymphocyte % 30.8 % (19-41); Mean Corp Hgb Conc 34.7 g/dL (32-36); Mean Corpuscular Volume 86.2 fL (80-94); Mean Platelet Vol. 10.8 fl (6.2-12.0); Monocyte# 0.85 X10^3/uL; Monocyte% 9.1 % (0-10); NRBC Flagged by Analyzer 0 % (0-5); Neutrophil # 5.31 X10^3/uL (2.7-7.7); Neutrophil % 57.1 % (47-70); Platelet Count 211 K/mm3 (150-450); RBC Distribution Width CV 13.1 % (11.6-14.6); RBC Distribution Width SD 40.4 fl (35.1-43.9); Red Blood Count 4.94 M/mm3 (4.6-6.2); White Blood Count 9.3 K/mm3 (4.4-11.0)
[2022-12-10 18:22] LABS: ALB/GLOB Ratio 0.9 RATIO (0.9-2.4); AST(SGOT) 25 U/L (15-37); Alanine Aminotransfer ALT/SGPT 31 U/L (16-61); Albumin, Serum 3.8 g/dL (3.2-5.0); Alkaline Phosphatase 66 U/L (45-117); Anion Gap 3 (5-15); BUN 17 mg/dL (7-18); BUN/Creat Ratio 13.9 RATIO (10-20); Calcium,Total 9.3 mg/dL (8.5-10.1); Chloride 111 mmol/L (98-107); Creatinine, Serum 1.22 mg/dL (0.70-1.30); EST Glomerular Filtration Rate 64 mL/min (>60); Est Glom Filt Rate - Afr Amer 77 mL/min (>60); Globulin 4.1 g/dL (2.2-4.2); Glucose 102 mg/dL (74-106); Potassium 3.9 mmol/L (3.5-5.1); Protein, Total 7.9 g/dL (6.4-8.2); Sodium Level 141 mmol/L (136-145)
== END | disposition home or self-care (01) ==
LOC: MTLAB 16:36
PROVIDERS: PCP Internal Medicine Cardiovascular Disease; Referring Provider Family Medicine; Visit Provider Family Medicine
DX: Z01.818 Encounter for other preprocedural examination (principal)
CPT/HCPCS: 36415; 71046; 80053; 85025

== ENCOUNTER 2022-12-21 06:30 | Day surgery (SDC) | payer MEDICARE, MEDICAID, SELFPAY ==
[2022-12-21 07:03] VITALS: BP 132/76; PULSE 76; RESP 18; TEMP 36.2; O2SAT 96; BMI 42.6
[2022-12-21] MEDS: Lactated Ringers 1,000 ML 15 ML IV (07:34)
[2022-12-21 07:54] LABS: Bedside Glucose 148 mg/dL (74-106)
--- NOTE | 2022-12-21 08:43 | RAD_ITS ---
STUDY: X-RAY - RIGHT ANKLE REASON FOR EXAM: Male, 62 years old. Achilles tendon repair. TECHNIQUE: 1 view(s) of the ankle. COMPARISON: None. FINDINGS: Intraoperative imaging provided for Achilles tendon repair. RAD/Ankle 2 Views IMPRESSION: Intraoperative imaging provided for Achilles tendon repair. Electronically Signed: Elroy Light MD at 14:25 EDT ,
[2022-12-21] MEDS: BACITRACIN/POLYMYXIN B 15 GM Tube 1 APPLIC (10:33)
[2022-12-21] MEDS: Bupivacaine Mpf 0.5% 30 ML VIAL (10:39)
--- NOTE | 2022-12-21 11:02 | PCM.OPRPT ---
Problems Associated Problem List Diagnoses (1) Achilles rupture, right: (2) Foot pain, right: (3) Non-pressure chronic ulcer of other part of right foot with fat layer exposed: (4) Type 2 diabetes mellitus with diabetic polyneuropathy: Report of Operation Date of Procedure: 12/21/22 Pre-Operative Diagnosis: 1) Diabetic Neuropathy 2) Chronic Achilles Tendon Rupture, Right 3) Calcaneal Gait, Right 4) Chronic Right heel wound Post-Operative Diagnosis: same Surgery/Procedure Performed:: 1. Flexor hallucis longus tendon transfer, right ankle 2. Primary repair Achilles tendon, right ankle 3. Wound bed preparation for graft application, right heel 4. Application of amniotic graft, right heel Description of Surgical Findings:: Patient has been ambulating on a chronic Achilles tendon rupture to his right lower extremity. Patient was seen by an outside provider in the wound care center prior to my care. Patient was dealing with a chronic left hallux wound. Patient suffered a right Achilles tendon rupture while trying to offload left hallux wound. Decision at that time by outside provider was to perform conservative treatment consisting of cam boot immobilization. I inherited patient several months into care. When I saw patient he was ambulating on chronic Achilles tendon rupture. He had minimal pain. But increased dorsiflexor range of motion with minimal function of the Achilles tendon. Decision was made to first heal the left hallux wound. Then proceeded with repair of right Achilles versus long-term bracing after wound healing. Patient underwent hallux interphalangeal joint arthroplasty. Left foot wound healed. MRI ordered was of the right Achilles tendon demonstrated possible healing in length and position. Patient developed neuropathic ulceration to plantar right heel due to calcaneal gait deformity. This is due to loss of function of the Achilles tendon. Decision was made after wound healing attempts failed chronic right heel to proceed with surgical management. Patient decreased smoking. Previous arterial studies demonstrated adequate blood flow. Patient blood sugar better controlled than previous. Patient started following up more frequently. Patient understands loss risk of loss of limb for his life surgical management and wished to proceed. Surgeon: Mario Yun portal developer: None (faith gomes) Type of Anesthesia: General/Regional Special Medications: 20 cc half percent Marcaine plain Drains: none Estimated Blood Loss (mL): minimal Description of Procedure: Patient brought back to the operating placed comfortably in supine position kept on cart. Induced under general anesthesia. Once after induced duction general anesthesia was turned into prone position with adequate offloading prevent any compression neuropraxia's and adequate airway management. Prior to turning a well-padded right thigh tourniquet was applied. Next right lower extremity was scrubbed prepped and draped using typical aseptic fashion. Once cleared by anesthesia right lower extremity was elevated exsanguinated tourniquet was inflated to 300 mmHg. A medialized incision was drawn from the musculotendinous junction of the Achilles to distal insertion along the medial course of the tendon to avoid sural nerve access. This incision was made full-thickness through epidermis dermis and subcutaneous tissue using a #15 blade blunt dissection was taken down to level deep fascia. Any bleeders cauterized sural nerve was identified and retracted laterally. The deep fascia and peritenon were then incised and dissected off the Achilles tendon. There is noted to be a intact tendon to this site but is very thin and atrophic in nature and healed in a lengthened position. This tendon was transection at its transected at its mid substance since and dissected off the deep fascia and peritenon layer for adequate dissection down to the FHL muscle and tendon body. Using a 15 blade the deep fascia was incised and blunt dissection was taken down until the FHL tendon was identified along the posterior medial ankle. This was confirmed with tensioning of the tendon demonstrating plantarflexion of the hallux. The tendon was then harvested after was transected as distally as good to have adequate tendon for transfer. Using manufactures guidelines the the tendon was then read tubularized using a whipstitch technique and through a 30 mm x 7 mm reamed tunnel over a guidepin was passed from superior to inferior at a slight oblique angle running from posterior superior to anterior inferior. It was passed into this tunnel and secured with a central lock Bio-Tenodesis screw 7.0 mm. This was placed with the FHL locked in the reamed tunnel while the foot was held in slight plantarflexion. Resting plantarflexion rate tension was restored after insertion of this Bio-Tenodesis screw. Care was taken to avoid any neurovascular structures in this area via blunt dissection. Next attention was taken to the Achilles tendon which a direct primary repair was performed after the distal and proximal ends were read tubularized using 2-0 FiberWire they were repaired together with interlocking stitches as well as a running 2-0 FiberWire in a tubularization pattern. Again this was performed with the foot held in slight plantarflexion to allow for adequate advent of plantarflexion retention at rest. Upon completion of this Travis squeeze testing was restored. Incisional site was flushed with copious amounts of normal sterile saline. Tourniquet was let down. Any bleeders were identified and cauterized. Deep fascial closure was performed with running 4-0 Vicryl. Subcutaneous closure performed with running 4-0 Vicryl. Skin closure performed with 4-0 Monocryl using a 6 running intradermal subcuticular stitch. This was secured additionally with Steri-Strips. Attention was taken to the plantar heel wound. Predebridement the wound measured 1.5 x 1.0 x 0.5 cm. Postdebridement the wound was 1.6 x 1.4 cm x 0.7. Wound demonstrates stable granular base no deep probing undermining or signs of infection. The wound base was then prepped for graft application using combination of bone cutting forceps as well as #15 blade. Slight granular bleeding noted. A 2 x 4 cm amniotic graft from [employer] was applied. This graft was dehydrated and 6 stabilized using overlying Adaptic and Steri-Strips. Sites were dressed with bacitracin Adaptic 4 x 4's Kerlix and a well-padded cast. 20 cc half percent Marcaine plain were injected to the Jerzy Achilles site as well as the periwound site using local infiltration technique, this was performed prior to cast application. Paresthesias or any issues with postop pain control he may perform a popliteal block in PACU. Tourniquet was let down prior to incisional closure. Tourniquet time was noted to be less than 90 minutes. Patient tolerated procedure and anesthesia well apparent satisfactory condition. Patient transferred to PACU vital signs stable and vascular status intact all digits for further monitoring prior to discharge. No complications. Findings stable plantar heel wound healthy healing potential with bleeding after debridement. Incisional site at Achilles was cleaned there is advent of function of the Achilles post procedure. Confirmed with Travis's squeeze and resting plantarflexion retention of the foot. Grafts/Implants Used: [employer] Citrelock Bio-Tenodesis screw 7.0 mm, FiveRuns amniotic nick Admit VTE Documentation VTE Present on Admission: Yes VTE Pharm Prophylaxis ordered?: Yes
[2022-12-21 11:07] VITALS: BP 131/58; BP 132/76; PULSE 71; RESP 16; TEMP 36.9; O2SAT 92
[2022-12-21 11:15] VITALS: BP 116/67; BP 132/76; PULSE 74; RESP 16; O2SAT 94
[2022-12-21 11:28] VITALS: BP 117/61; BP 132/76; PULSE 69; RESP 16; TEMP 36.8; O2SAT 92
[2022-12-21 11:48] LABS: Bedside Glucose 221 mg/dL (74-106)
[2022-12-21 12:16] VITALS: BP 132/76
== END 2022-12-21 12:23 | disposition home or self-care (01) ==
LOC: SDC 06:30 → AC 06:31
PROVIDERS: PCP Internal Medicine Cardiovascular Disease; Referring Provider Podiatrist; Visit Provider Podiatrist
PROC: (CPT 27650; principal; 2022-12-21 07:45)
DX: S86.011A Strain of right Achilles tendon, initial encounter (principal); E11.621 Type 2 diabetes mellitus with foot ulcer; L97.512 Non-pressure chronic ulcer of other part of right foot with fat layer exposed; E11.42 Type 2 diabetes mellitus with diabetic polyneuropathy; Z79.4 Long term (current) use of insulin; I10 Essential (primary) hypertension; F17.290 Nicotine dependence, other tobacco product, uncomplicated; F43.10 Post-traumatic stress disorder, unspecified; G47.30 Sleep apnea, unspecified; Z79.82 Long term (current) use of aspirin; Z79.899 Other long term (current) drug therapy; X58.XXXA Exposure to other specified factors, initial encounter
CPT/HCPCS: 27652; 01472; 73600; 76000; 82962; C1713; J7120; J2405

== ENCOUNTER → 2023-01-10 | Outpatient (CLI) | payer MEDICARE, MEDICAID, SELFPAY | END | disposition home or self-care (01) | PROVIDERS: PCP Internal Medicine Cardiovascular Disease; Visit Provider Podiatrist | DX: L97.312 Non-pressure chronic ulcer of right ankle with fat layer exposed (principal) | CPT/HCPCS: 87070; 87075; 87077; 87186; 87205 ==

== ENCOUNTER → 2023-03-21 | Outpatient (CLI) | payer MEDICARE, MEDICAID, SELFPAY ==
--- NOTE | 2023-03-21 16:10 | RAD_ITS ---
STUDY: X-RAY - RIGHT TIBIA AND FIBULA REASON FOR EXAM: Male, 62 years old. PAIN IN R LEG. Unsteady gait. TECHNIQUE: 4 view(s) of the tibia and fibula were obtained. COMPARISON: None. FINDINGS: Normal visualized tibia. Normal visualized fibula. The soft tissue structures are unremarkable. RAD/Tibia & Fibula 2 Views IMPRESSION: Normal x-ray examination of the tibia and fibula. Electronically Signed: Elroy Light MD at 10:56 EST ,
--- NOTE | 2023-03-21 16:10 | RAD_ITS ---
STUDY: X-RAY - RIGHT KNEE REASON FOR EXAM: Male, 62 years old. PAIN IN R LEG TECHNIQUE: 4 view(s) of the knee. COMPARISON: None. FINDINGS: Normal visualized distal femur. Normal visualized proximal tibia and fibula. Normal proximal tibiofibular articulation. There is moderate degenerative arthrosis of the medial femorotibial compartment with moderate joint space narrowing. Normal lateral femorotibial compartment. There is moderate degenerative arthrosis of the patellofemoral articulation. Small joint effusion. RAD/Knee 1 or 2 Views IMPRESSION: Degenerative arthrosis. Small joint effusion. Electronically Signed: Elroy Light MD at 9:47 EST ,
== END | disposition home or self-care (01) ==
LOC: RAD 15:57
PROVIDERS: PCP Internal Medicine Cardiovascular Disease; Referring Provider Podiatrist; Visit Provider Podiatrist
DX: M79.604 Pain in right leg (principal)
CPT/HCPCS: 73560; 73590

== ENCOUNTER 2023-06-04 16:00 | Outpatient (RCR) | payer MEDICARE, MEDICAID, SELFPAY ==
--- NOTE | 2023-04-09 14:26 | HP.PTEVAL_ITS ---
Patient's Visit Information Visit Information Visit Information: ISA CASTELLANO is a 62 year old M referred to Physical Therapy by Dr. Luis A Adkins MD with a diagnosis of UNILATERAL PRIMARY OSTEOARTHRITIS ,RIGHT KNEE. Date of Evaluation: 04/09/23 Physical Therapist: Kota Nugent, PT, Cert MDT, OCS Visit Plan Frequency: 2-3x /Week Duration: 4-6WEEKS Plan: PLAN FOR TKA IN AUGUST 2023 PT INTERVENTIONS AQUATIC THERAPY ,ROM ,STRENGTHENING RIGHT QUADS/HAMS/HIP ,FLEXABILITY AND FUNCTION STRENGTHENING Subjective Subjective: This 62 y/o male presents therapy with right knee pain. Patient has severe DJD right knee pain. Patient right knee pain many years. Patient seen DR Adkins had x-rays showed DJD and recommended PT but recommended PT for rehab. Patient tried gel injections didn't help. Patient plans to have Surgery ~ August 2023 . Patient had surgery had Achilles tendon Surgery December 2022. Pain located medial knee described as ache and sharp pain. Patient need cane with gait. Aggravating factors unable to squat/kneeling and stairs are difficulty. Patient symptoms worse with walking and standing. Alleviating medication and ibupropr ofrin and Percocet. Dr. braden injections. Patient is one pain management. Patient Patient denies paresthesia/tingling -. Patient pain affects sleeping. Patient pain affects QOL and function with walking. Patient pain goals to decrease pain. Patient has multiple comorbities to influence condition. 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; Pain Right: Pain Intensity (Out of 10): 7 Pain Intensity Range: 10 Objective Objective: POSTURE: mild forward posture hips/knees flexed ,varum knee NEURO: denies paresthesia/tingling GAIT: ambulates with slow neli mild forward posture 2 point gait varum knee decrease stance time RLE AROM: 0-90 degrees supine knee flexion MMT: ( peak force) quads 14.2,hamstrings 13.8 ,hip flexion 24.8 STAIRS: one step at time FLEXABILITY: hamstring mild tight Special Tests R Knee Shwetha - Meniscus: Negative R Knee Valgus - MCL: Negative R Knee Varus - LCL: Negative Balance/Special Test Scores Lower Extremity Functional Score: 26 Goals Goal 1:: Patient to be I with Aquatic Therapy program Goal Time Frame: 4-6 Weeks Goal 2:: Patient to improve AROM supine knee flexion by 10 degrees > to improve stairs Goal Time Frame: 4-6 Weeks Goal 3:: Patient to improve peak force quads/hams by 10 # strength to improve gait Goal 4:: Patient to demonstrate 40-50% improvement with less pain and improved function Goal Time Frame: 4-6 Weeks Goal 5:: Patient to improve LFES score by 5 points to improve QOL and function Goal Time Frame: 4-6 Weeks Rehabilitation Potential Physical Therapy Diagnosis: This patient has right knee pain with severe DJD with decrease ROM ,strength ,impairs gait thus benefit from skilled PT Rehabilitation Potential: Good Anticipated Interventions Patient/Client Instruction: Educate patient on: Condition and Plan of Care For the Purpose of:: To decrease pain, To increase ROM, To improve muscle performance and motor function, To increase tolerance to activity/condition/position, To improve ability of physical actions for home/community/work/leisure, To improve gait and locomotor functions, To improve health of tissue, To decrease soft tissue restriction, To increase flexibility/ROM, To improve endurance, To improve balance and To improve safety with gait Therapeutic Exercise to Include: Strength training, Endurance training, Balance training, Flexibilty training, Gait and locomotor training, In an aquatic setting and Active ROM Comment: QUADS/HAMS/HIP For the Purpose of:: To decrease pain, To increase ROM, To improve muscle performance and motor function, To increase tolerance to activity/condition/position, To improve ability of physical actions for home/community/work/leisure, To improve health of tissue, To decrease soft tissue restriction, To increase flexibility/ROM, To improve endurance, To improve balance and To prevent re-injury Text: Thank you for the opportunity to evaluate your patient. For Medicare and Medicare HMO plans, please review the plan of care and approve it. It will need to be FAXED BACK to us at [phone] for Medicare purposes. For Medicare only, by signing this I certify the plan of care. Please let me know if there are questions or concerns regarding this plan of care. Physician Signature: Date:
== END 2023-06-04 19:00 | disposition home or self-care (01) ==
LOC: PT 16:00
PROVIDERS: PCP Internal Medicine Cardiovascular Disease; Visit Provider Specialist
DX: M17.11 Unilateral primary osteoarthritis, right knee (principal)
CPT/HCPCS: 97110; 97113; 97162

== ENCOUNTER → 2023-07-05 | Outpatient (CLI) | payer MEDICARE, MEDICAID, SELFPAY ==
--- NOTE | 2023-07-05 18:51 | CT_ITS ---
CT RIGHT LOWER EXTREMITY WITH 3-D IMAGING CLINICAL INDICATION: UNILATERAL OSTEOARTHRITIS, RT KNEE TECHNIQUE: Axial CT images of the RIGHT lower extremity was performed IV contrast material. Coronal and sagittal reformats were provided. RADIATION DOSAGE (If Supplied By Facility): CTDIvol = ( 18.76 ) mGy, DLP = ( 1239.86 ) mGycm COMPARISON: X-ray 03/21/2023 FINDINGS: Bones: Osseous structures are normal without evidence of fracture or dislocation. No lytic or blastic osseous masses. Severe joint space narrowing in the medial compartment with subchondral sclerosis and cyst formation. Mild joint space narrowing and osteophyte formation in the lateral compartment. Mild joint space narrowing and osteophyte formation in the patellofemoral compartment. Moderate joint effusion. Soft Tissues: The deep soft tissue structures are unremarkable. The superficial soft tissues are unremarkable without evidence of edema, hematoma, or foreign body. CT/Extremity Lower without Contra IMPRESSION: Severe arthrosis with joint effusion. Electronically Signed: Miguel Jimenez MD at 21:34 EST ,
--- OUTSIDE RECORDS SUMMARY | 2023-07-05 18:53 | XMS RPT_ITS | CCD ---
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 rules restrict any use of the information to criminally investigate or prosecute any alcohol or drug abuse patient.[facility] the event this information is protected by the Federal Confidentiality of Alcohol and Drug Abuse Patient Records regulations: The Federal rules restrict any use of the information to criminally investigate or prosecute any alcohol or drug abuse patient.[facility] the event this information is protected by the Federal Confidentiality of Alcohol and Drug Abuse Patient Records regulations: The Federal rules restrict any use of the information to criminally investigate or prosecute any alcohol or drug abuse patient.[facility] the event this information is protected by the Federal Confidentiality of Alcohol and Drug Abuse Patient Records regulations: The Federal rules restrict any use of the information to criminally investigate or prosecute any alcohol or drug abuse patient.[facility] HospitalIn the event this information is protected by the Federal Confidentiality of Alcohol and Drug Abuse Patient Records regulations: The Federal rules restrict any use of the information to criminally investigate or prosecute any alcohol or drug abuse patient.[facility]In the event this information is protected by the Federal Confidentiality of Alcohol and Drug Abuse Patient Records regulations: The Federal rules restrict any use of the information to criminally investigate or prosecute any alcohol or drug abuse patient.[facility] HospitalIn the event this information is protected by the Federal Confidentiality of Alcohol and Drug Abuse Patient Records regulations: The Federal rules restrict any use of the information to criminally investigate or prosecute any alcohol or drug abuse patient.[facility]In the event this information is protected by the Federal Confidentiality of Alcohol and Drug Abuse Patient Records regulations: The Federal rules restrict any use of the information to criminally investigate or prosecute any alcohol or drug abuse patient.[facility]In the event this information is protected by the Federal Confidentiality of Alcohol and Drug Abuse Patient Records regulations: The Federal rules restrict any use of the information to criminally investigate or prosecute any alcohol or drug abuse patient.[facility] HospitalIn the event this information is protected by the Federal Confidentiality of Alcohol and Drug Abuse Patient Records regulations: The Federal rules restrict any use of the information to criminally investigate or prosecute any alcohol or drug abuse patient.[facility] HospitalIn the event this information is protected by the Federal Confidentiality of Alcohol and Drug Abuse Patient Records regulations: The Federal rules restrict any use of the information to criminally investigate or prosecute any alcohol or drug abuse patient.[facility] HospitalIn the event this information is protected by the Federal Confidentiality of Alcohol and Drug Abuse Patient Records regulations: The Federal rules restrict any use of the information to criminally investigate or prosecute any alcohol or drug abuse patient.[facility] HospitalIn the event this information is protected by the Federal Confidentiality of Alcohol and Drug Abuse Patient Records regulations: The Federal rules restrict any use of the information to criminally investigate or prosecute any alcohol or drug abuse patient.[facility] HospitalIn the event this information is protected by the Federal Confidentiality of Alcohol and Drug Abuse Patient Records regulations: The Federal rules restrict any use of the information to criminally investigate or prosecute any alcohol or drug abuse patient.[facility] HospitalIn the event this information is protected by the Federal Confidentiality of Alcohol and Drug Abuse Patient Records regulations: The Federal rules restrict any use of the information to criminally investigate or prosecute any alcohol or drug abuse patient.[facility] HospitalIn the event this information is protected by the Federal Confidentiality of Alcohol and Drug Abuse Patient Records regulations: The Federal rules restrict any use of the information to criminally investigate or prosecute any alcohol or drug abuse patient.[facility] HospitalIn the event this information is protected by the Federal Confidentiality of Alcohol and Drug Abuse Patient Records regulations: The Federal rules restrict any use of the information to criminally investigate or prosecute any alcohol or drug abuse patient.[facility] HospitalIn the event this information is protected by the Federal Confidentiality of Alcohol and Drug Abuse Patient Records regulations: The Federal rules restrict any use of the information to criminally investigate or prosecute any alcohol or drug abuse patient.[facility] HospitalIn the event this information is protected by the Federal Confidentiality of Alcohol and Drug Abuse Patient Records regulations: The Federal rules restrict any use of the information to criminally investigate or prosecute any alcohol or drug abuse patient.[facility] HospitalIn the event this information is protected by the Federal Confidentiality of Alcohol and Drug Abuse Patient Records regulations: The Federal rules restrict any use of the information to criminally investigate or prosecute any alcohol or drug abuse patient.[facility] HospitalIn the event this information is protected by the Federal Confidentiality of Alcohol and Drug Abuse Patient Records regulations: The Federal rules restrict any use of the information to criminally investigate or prosecute any alcohol or drug abuse patient.[facility] Care Teams (unrecognized sec tion and content) Saw Man Relationship Specialty Start Date End Date Ricardo Abraham [address] [place] [id number] PCP - General Cardiology 05/22/19 Saw Man Relationship Specialty Start Date End Date Ricardo Abraham [address] [place] [phone] PCP - General Cardiology 05/22/19 Saw Man Relationship Specialty Start Date End Date Ricardo Abraham [address] [place] [address] PCP - General Cardiology 05/22/19 Saw Man Relationship Specialty Start Date End Date Ricardo Abraham [address] [place] [address] PCP - General Cardiology 05/22/19 Saw Man Relationship Specialty Start Date End Date Ricardo Abraham [address] [place] [facility] [place] [address] PCP - General Cardiology 05/22/19 Saw Man Relationship Specialty Start Date End Date Ricardo Abraham [address] [place] [facility] [place] [address] PCP - General Cardiology 05/22/19 Saw Man Relationship Specialty Start Date End Date Ricardo Abraham [address] [place] [facility] [place] [address] PCP - General Cardiology 05/22/19 Saw Man Relationship Specialty Start Date End Date Ricardo Abraham [address] [place] [facility] [place] [address] PCP - General Cardiology 05/22/19 Saw Man Relationship Specialty Start Date End Date Ricardo Abraham [address] [place] [facility] [place] [address] PCP - General Cardiology 05/22/19 Saw Man Relationship Specialty Start Date End Date Ricardo Abraham [address] [place] [facility] [place] [address] PCP - General Cardiology 05/22/19 Saw Man Relationship Specialty Start Date End Date Ricardo Abraham [address] [place] [address] PCP - General Cardiology 05/22/19 Saw Man Relationship Specialty Start Date End Date Ricardo Abraham [address] [place] [address] PCP - General Cardiology 05/22/19 Saw Man Relationship Specialty Start Date End Date Ricardo Abraham [address] [facility] [place] [address] PCP - General Cardiology 05/22/19 Saw Man Relationship Specialty Start Date End Date Ricardo Abrahma [address] [place] [address] PCP - General Cardiology 05/22/19 Saw Man Relationship Specialty Start Date End Date Ricardo Abraham [address] [facility] [place] [address] PCP - General Cardiology 05/22/19 Saw Man Relationship Specialty Start Date End Date Ricardo Abraham MD PCP - General Cardiology 05/22/19 Saw Man Relationship Specialty Start Date End Date Ricardo Abraham MD PCP - General Cardiology 05/22/19 Saw Man Relationship Specialty Start Date End Date Ricardo Abraham MD PCP - General Cardiology 05/22/19 Saw Man Relationship Specialty Start Date End Date Ricardo Abraham MD PCP - General Cardiology 05/22/19 Saw Man Relationship Specialty Start Date End Date Ricardo Abraham MD PCP - General Cardiology 05/22/19 FOR RECORDS PERTAINING TO PATIENTS WHO ARE OR HAVE BEEN ENROLLED IN A CHEMICAL DEPENDENCY/SUBSTANCEABUSE PROGRAM, SOME INFORMATION MAY BE OMITTED. This clinical summary was aggregated from multiple sources. Caution should be exercised in using it in the provision of clinical care. This summary normalizes information from multiple sources, and as a consequence, information in this document may materially change the coding, format and clinical context of patient data. In addition, data may be omitted in some cases. CLINICAL DECISIONS SHOULD BE BASED ON THE PRIMARY CLINICAL RECORDS. [facility]. provides no warranty or guarantee of the accuracy or completeness of information in this document.
== END | disposition home or self-care (01) ==
LOC: CT 18:48
PROVIDERS: PCP Internal Medicine Cardiovascular Disease; Referring Provider Specialist; Visit Provider Specialist
DX: M17.11 Unilateral primary osteoarthritis, right knee (principal); M25.561 Pain in right knee
CPT/HCPCS: 73700

== ENCOUNTER 2023-07-17 11:44 | Observation (INO) | payer MEDICARE, MEDICAID, SELFPAY ==
[2023-07-02 12:12] LABS: Absolute Lymphocyte Count 3.44 X10^3/uL (0.83-4.51); Absolute Neutrophil Count 9.9 X10^3/uL (2.0-7.7); Basophil# 0.09 X10^3/uL; Basophil% 0.6 % (0-1); Eosinophil# 0.29 X10^3/uL; Eosinophils% 1.9 % (0-5); Hematocrit 45.2 % (40-54); Hemoglobin 15.3 g/dL (13.0-16.5); Lymphocyte # 3.44 X10^3/ul (0.83-4.51); Lymphocyte % 22.6 % (19-41); Mean Corp Hgb Conc 33.8 g/dL (32-36); Mean Corpuscular Hgb 27.8 pg (27.0-32.0); Mean Corpuscular Volume 82.2 fL (80-94); Mean Platelet Vol. 11.2 fl (6.2-12.0); Monocyte# 1.38 X10^3/uL; Monocyte% 9.1 % (0-10); NRBC Flagged by Analyzer 0 % (0-5); Neutrophil # 9.92 X10^3/uL (2.7-7.7); Neutrophil % 65.1 % (47-70); Platelet Count 219 K/mm3 (150-450); RBC Distribution Width CV 13.6 % (11.6-14.6); RBC Distribution Width SD 40.1 fl (35.1-43.9); White Blood Count 15.2 K/mm3 (4.4-11.0)
[2023-07-02 13:24] LABS: Albumin, Serum 4.1 g/dL (3.2-5.0); Anion Gap 8 (5-15); BUN 19 mg/dL (7-18); BUN/Creat Ratio 14.8 RATIO (10-20); Chloride 109 mmol/L (98-107); Creatinine, Serum 1.28 mg/dL (0.70-1.30); EST Glomerular Filtration Rate 60 mL/min (>60); Est Glom Filt Rate - Afr Amer 73 mL/min (>60); Glucose 107 mg/dL (74-106); Sodium Level 139 mmol/L (136-145)
[2023-07-02 13:46] LABS: Hemoglobin A1c 6.3 % (3.8-5.6)
[2023-07-02 13:56] LABS: Magnesium 2.2 mg/dL (1.6-2.6)
[2023-07-05 15:19] LABS: Hematocrit 40.5 % (40-54); Hemoglobin 13.5 g/dL (13.0-16.5); Mean Corp Hgb Conc 33.3 g/dL (32-36); Mean Corpuscular Hgb 28.1 pg (27.0-32.0); Mean Corpuscular Volume 84.4 fL (80-94); Mean Platelet Vol. 10.8 fl (6.2-12.0); Platelet Count 156 K/mm3 (150-450); RBC Distribution Width CV 13.4 % (11.6-14.6); RBC Distribution Width SD 41.2 fl (35.1-43.9)
[2023-07-05 15:26] LABS: Color, Urine Yellow (Yellow); Glucose, Dipstick Normal (Normal); Ketone-Dipstick Negative (Negative); Leukocyte Esterase-Dipstick Negative /ul (Negative); Nitrite-Dipstick Negative (Negative); Occult Blood-Urine Negative /ul (Negative); Protein-Dipstick Negative (Negative); Urine Bilirubin Dipstick Negative (Negative); Urine Clarity Clear (Clear); Urine Urobilinogen Normal (Normal)
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
[2023-07-17] VITALS (12 sets, daily range): BP systolic 111–152; BP diastolic 61–75; PULSE 75–93; RESP 16–18; TEMP 36.3–36.9; O2SAT 93–96; BMI 44.5
[2023-07-17] MEDS: Magnesium 1 GM over 15 mins IV (08:10)
[2023-07-17] MEDS: Gabapentin 600 MG Tablet PO (08:36)
[2023-07-17] MEDS: Lactated Ringers 1,000 ML 15 ML IV (08:36)
[2023-07-17] MEDS: Celecoxib 200 MG Capsule 400 MG PO (08:36)
[2023-07-17] MEDS: Acetaminophen 500 MG Tablet 1000 MG PO ×3 (08:36→20:08)
[2023-07-17] MEDS: Vancomycin HCl 2,000 MG in 0.9% Normal Saline (500mL Bag) 500 ML 250 MG IV (08:45)
[2023-07-17 09:09] LABS: Bedside Glucose 383 mg/dL (74-106)
[2023-07-17] MEDS: Insulin Lispro 100 UNIT/ML INSULN.PEN SC ×2 (09:18→14:01)
[2023-07-17] MEDS: Cefazolin 3 GM in 0.9% Normal Saline (100mL Bag) 100 ML IV (10:29)
--- NOTE | 2023-07-17 10:30 | KNEE_PTH ---
PATIENT: ISA CASTELLANO LOC: MS3 U#:[id number] AGE/SX: 62/M ROOM: OR313 RE07/17/[address]: Dr. Luis A Adkins MD : 1960 BED: 1 DIS: 07/18/2023 SPEC #: [id number] RECD: 07/17/23 13:17 STATUS: SHAKA STRICKLAND #: [id number] SAUL: 07/17/23 10:[address]: Luis A Adkins DEPT: SURGICAL PATHOLOGY RECD BY: Muriel Qureshi ENTERED: 07/17/23 13:18 SP TYPE: TOTAL KNEE OTHR DR: RICARDO [place] MD Tissues: Knee, NOS Procedures: Decalcification bone/plaque Surgery Specimen Level IV HEADER OPERATION: STEVE, Robotic assisted right total knee replacement PRE-OP DIAGNOSIS: Severe right knee osteoarthritis and Varus deformity TISSUE SUBMITTED: Bone and soft tissue right knee MICROSCOPIC DIAGNOSIS Bone and soft tissue, Right knee, total knee replacement/resection: Pieces of bone with degenerative osteoarthritic changes. Fibroadipose tissue, fibroconnective tissue and reactive synovial tissue. Focal changes consistent with pseudogout. VIBHA: 07/22/2023 MICROSCOPIC DESCRIPTION Slides are reviewed. GROSS DESCRIPTION Received is one container designated bone and soft tissue Right knee. The specimen consists of multiple fragments of coello-yellow bone measuring in aggregate 10.0 x 10.0 x 3.0 cm. Also in the specimen container are multiple fragments of fibrocartilaginous tissue measuring in aggregate 6.0 x 4.0 x 2.0 cm. A number of bony fragments contain articular surfaces consistent with tibial plateau and femoral condyle and displaying prominent osteophyte formation, eburnation and bone erosion. Underground Supervisor sections are submitted in two cassettes as follows: 1 - soft tissue, 2 - bone after decalcification. / VIBHA/ 07/17/23 TC:5 CPT: 82996, [id number]
[2023-07-17] MEDS: dexAMETHasone 10 MG/ML Vial IV (10:37)
[2023-07-17] MEDS: TXA 1000mg in NS100 100ml (IVPB at Incision) 660 MG IV (10:40)
[2023-07-17] MEDS: TXA 1000mg in NS100 100ml (IVPB at Closure) 660 MG IV (11:30)
[2023-07-17] MEDS: JPS (Morphine 10mg/ml) OPERA.SITE (11:41)
--- NOTE | 2023-07-17 11:41 | OP.PCM_ITS ---
Report of Operation Date of Procedure: 07/17/23 Pre-Operative Diagnosis: Right knee primary osteoarthritis Post-Operative Diagnosis: Right knee primary osteoarthritis Surgery/Procedure Performed:: Right minimally invasive robotic total knee replacement Description of Surgical Findings:: Stable knee with good patella tracking Surgeon: Luis A Adkins bottom filler: Edu Barber Type of Anesthesia: Spinal Anesthesiologist: Angelito Bailey Special Medications: 2 g Ancef, 1 g TXA at incision, 1 g TXA closure, 10 mg Decadron, joint cocktail (5 mg Duramorph, 30 mL of 0.5% Ropivicaine, 1000 units of epinephrine, 30 mg of Toradol) Specimen's removed: Bony cuts Estimated Blood Loss (mL): 100 Fluids Replaced: 1000 ML Description of Procedure: Implants used: 1. Montfort size 5 triathlon cruciate retaining distal femoral press-fit component 2. Kevin size 6 press-fit tritanium tibial baseplate 3. Kevin X3 10 mm CS polyethylene 4. Kevin X3 38 mm asymmetric patella Brief history operative indications: 62-year-old M with history of right knee osteoarthritis with radiographic findings with loss of joint space, osteophyte formation and subchondral sclerosis. Failed conservative measures as mentioned in the H&P. Discussion of total knee arthroplasty as well as risk and benefits were discussed the patient including but not limited to blood loss, DVTs, PEs, neurovascular damage, general risk of anesthesia including loss of life, and stiffness or instability were discussed with patient. Patient demonstrated understanding and was able to sign informed consent. Procedure: On the date of procedure patient's right lower extremity was marked in the preoperative area. The patient was then taken back to the operating room where the patient was placed on the table in the supine position. All bony prominences were identified a well-padded. Anesthesia assumed control of the C-spine and airway and remained controlled throughout the remainder of the procedure. A tourniquet was placed on the right upper thigh and the leg was prepped in a sterile fashion. The surgeon then scrubbed at this time .Upon reentering the room right lower extremity was draped in a standard orthopedic fashion. A ti meout was then called and everyone agreed upon the side, the site, the procedure to be performed, patient's identity and antibiotics given. Esmarch bandage was used to exsanguinate the extremity and the tourniquet was placed up to 250 mmHg with the knee in flexion. A midline skin incision was made and sharp dissection was taken down through skin subcutaneous tissue and fat. The standard medial parapatellar incision was made and the patella was subluxed laterally. An Appropriate deep MCL release was done and the fat pad was resected. Our attention was then directed to the patella. The patella was everted and a flat resection was made. The knee was then flexed up in 2 femoral pins were placed inside the incision and 2 tibial pins were placed outside the incision in the medial tibia bicorti brooks. Once this was completed the 2 checkpoints in the femur and tibia were placed. Knee was then flexed up and the bony landmarks were registered. Once this was completed knee was taken through range of motion and manually stressed allowing us to a plan for an appropriate tibial cut. The robotic arm was brought into the field sterilely and checkpoint and saw were registered. Based on the patient's deformity the tibial cut was made in 3 degrees of varus. At this time the tensioner was then placed in the joint and ligament tension was checked at 90 degrees and full extension. Based on the patient's ligamentous tension appropriate adjustments were made to the operative plan and ligament releases were done. Once we were happy with our operative plan with balanced flexion and extension gaps our attention was directed to the femur. The robot was brought into the field sterilely and registered. Posterior condylar cuts, anterior chamfer cuts and anterior cuts were appropriately made for a size 5 femur. When these were completed the saws were switched out in the distal femoral and posterior chamfer cuts were made. Protecting the soft tissue throughout this time. A size 6 tibial base plate was selected. the knee was flexed to 90 degrees and the soft tissues and posterior osteophytes were removed from the joint. 40 cc of the periarticular injection was injected into the posterior medial corner of the joint. The appropriate trials were then placed on the femur and tibia. A trial polyethylene was trialed to ensure proper balancing and stability of the knee. The appropriate tibial internal rotation was then marked with a bovie. Our attention was then directed to the patella. The lug holes were drilled and the patella trial was placed. Patellar tracking was checked and deemed appropriate. Once we were happy lug holes were drilled for the femur and trial components were removed. the tibia was subluxed and pinned into place and the keel was punched and drilled appropriately. Final components were verified and opened, and cement was mixed in a vacuum. [employer] Simplex cement was used. The wound was copiously irrigated with normal saline. When the cement was ready the components were impacted into place starting with the tibia, femur and finally cementing the patella. The trial poly component was placed and the knee was placed in full extension. All excess cement was removed in the process. Once the cement had cured the tracking, alignment and balance were verified and a size 10 mm CS polyethylene component was placed. Once the final components were placed a 3-minute dilute Betadine lavage was performed followed by an Irrisept lavage was performed and the wound was copiously irrigated with normal saline solution and the periarticular injection was given. The wound was closed in a layer thakur fashion using #1 vicryl interrupted sutures for the arthrotomy, 2-0 interrupted Vicryl suture for the subcuticular layer and nylon sutures for final skin closure. A sterile compressive dressing was then placed. The patient was then awakened from anesthesia, transferred to the [facility] and transferred to the PACU for recovery. Post op plan DVT ppx: ASA 81mg BID, thigh high compression stockings Follow up: in office in 2 weeks for wound check PT: to start POD #0 at hospital, outpatient PT should be arranged. Patient is staph positive and BMI greater than [address] him on doxycycline for 2 weeks postoperatively 100 mg p.o. twice daily My physician marketing operations assistant was a vital part of this case. He was important in appropriate retraction during the case, and protection of soft tissues during bony cuts. His intimate knowledge of the case and my steps aided in safe and expedient completion of the procedure as well as appropriate position of the leg during the case. He was also vital in assisting with closure under my direct supervision. Due to the complexity of this case robotic arm was used to assist in the surgery to improve accuracy and clinical outcomes. Complications No intraoperative complications Admit VTE Documentation VTE Present on Admission: No VTE Mechan Device Prophylaxis: SCD's and Thigh High JAME Hose VTE Pharm Prophylaxis ordered?: Yes
[2023-07-17] MEDS: Lactated Ringers 1,000 ML 125 ML IV (12:33)
--- NOTE | 2023-07-17 13:00 | RAD_ITS ---
STUDY: X-RAY - RIGHT KNEE REASON FOR EXAM: Male, 62 years old. Post op -- AP and Lateral xray of operative knee in PACU TECHNIQUE: 2 views of the right knee. COMPARISON: None. FINDINGS: There are new postoperative changes related to right total knee arthroplasty with patellar resurfacing. There is gas in the patellofemoral joint recess and anterior soft tissues, compatible with recent surgery. The orthopedic hardware components are intact. There is no periprosthetic fracture. Normal proximal tibiofibular articulation. RAD/Knee 1 or 2 Views IMPRESSION: New postoperative changes related to right total knee arthroplasty. Electronically Signed: Pj Myers MD at 13:14 EDT ,
[2023-07-17] MEDS: oxyCODONE 5 MG Tablet PO ×2 (13:53→18:27)
[2023-07-17 14:24] LABS: Bedside Glucose 252 mg/dL (74-106)
[2023-07-17] MEDS: Ketorolac 15 MG/ML Vial IV ×2 (14:40→22:50)
--- NOTE | 2023-07-17 16:00 | PCM.PN.HOSP ---
Subjective Subjective 60-year-old male presented to the hospital for an elective right total knee replacement for osteoarthritis. Tolerated surgery well and has slight amount of pain above his right knee. States that he has been in his usual health prior to surgery with no medication changes. Objective Data Objective Data Vital Signs: Vital Signs Temp Pulse Resp BP Pulse Ox O2 Del Method O2 Flow Rate 98.2 F 78 18 145/74 H 93 Room Air 4 07/17/23 15:48 07/17/23 15:48 07/17/23 15:48 07/17/23 15:48 07/17/23 15:48 07/17/23 15:48 07/17/23 13:00 Oxygen Flow Rate (L/min) 4 Oxygen Delivery Method Room Air Weight: 328 lb 7.82 oz Body Mass Index (BMI) 44.5 Intake & Output: Intake and Output for Last 24 Hours 07/16/23 07/17/23 07/18/23 03:59 03:59 03:59 Intake Total 1976 Balance 1976 Lab / Micro Data 07/05/23 14:30 07/02/23 11:13 Labs: Laboratory Results - last 24 hr 07/17/23 08:31: POC Glucose 383 H 07/17/23 14:00: POC Glucose 252 H Micro: Microbiology 07/05/23 14:30 Urine, Clean Catch Urine Culture - Final Culture exhibits no growth. 07/02/23 11:13 Swab (Method) Nasal Screen MRSA/MSSA - Final Radiography Diagnostic Testing: Radiology Impression Knee X-Ray 07/17/23 13:00 IMPRESSION: New postoperative changes related to right total knee arthroplasty. Electronically Signed: Pj Myers MD at 13:14 EDT , Physical Exam Narrative General: Alert, Oriented x3, Cooperative, No apparent distress HEENT: Atraumatic, PERRLA, EOMI, Normocephalic Oral: Moist Mucosa Neck: Supple, No JVD Lungs: Diminished, Normal air movement, No rhonchi, No wheeze, No rales Cardiovascular: Regular rate, Regular Rhythm, Normal S1, Normal S2, No murmurs Abdomen: Soft, Non Tender, Non-Distended, No Hepato-splenomegaly Extremities: No edema, Capillary Refill Less than 3 Seconds Skin: No rashes, No breakdown, dressing on right knee CDI Musculoskeletal: No Tenderness to Palpation of Joints or Extremities Neurological: No focal neurological deficits, Motor Exam 5/5 strength throughout, Sensory exam intact to light touch and pain Psych/Mental Status: Normal Affect, Appropriate Assessment & Plan Assessment/Plan (1) Status post total right knee replacement: PLAN: Plan 1. Status post right total knee replacement 07/17/2023 for osteoarthritis ? Pain management per primary ? Discharge planning per primary ? DVT prophylaxis per primary 2. Essential HTN ? Blood pressure stable ? Will check BMP in the morning but can resume Norvasc, hydrochlorothiazide, lisinopril ? We will monitor make adjustments as necessary 3. DM2 with neuropathy ? Continue with his home insulin ? Accu-Cheks ACHS ? Will monitor make adjustments as necessary 4. LANA ? He did bring his home CPAP Charges/Coding Visit Charges Office Visits / Consults: [id number] OV L3 New 30min
[2023-07-17] MEDS: Morphine 2 MG/ML Syringe IV (16:06)
[2023-07-17] MEDS: Ensure Surgery 237 ML LIQUID PO (16:21)
[2023-07-17] MEDS: Insulin Lispro 100 UNIT/ML INSULN.PEN 10 UNIT SC (16:58)
[2023-07-17 17:11] LABS: Bedside Glucose 323 mg/dL (74-106)
[2023-07-17] MEDS: Cefazolin 1 GM/50 ML BAG IV (18:27)
[2023-07-17] MEDS: Senna/Docusate Sodium 1 Tablet 2 TABLET PO (20:09)
[2023-07-17] MEDS: Morphine 4 MG/ML Syringe IV (20:09)
[2023-07-17] MEDS: Aspirin 81 MG TAB.CHEW PO (20:09)
[2023-07-17] MEDS: Pregabalin 75 MG Capsule 150 MG PO (20:09)
[2023-07-17] MEDS: 0.9% Saline Lock 10 ML Syringe IV (20:14)
[2023-07-18] MEDS: Morphine 4 MG/ML Syringe IV (01:37)
[2023-07-18] MEDS: Cefazolin 1 GM/50 ML BAG IV (01:37)
[2023-07-18 02:00] VITALS: BP 143/75; PULSE 79; RESP 16; TEMP 36.2; O2SAT 95
[2023-07-18 02:24] VITALS: BP 143/75; PULSE 79; RESP 16; TEMP 36.2; O2SAT 95
[2023-07-18] MEDS: oxyCODONE 5 MG Tablet PO ×2 (05:40→09:46)
[2023-07-18] MEDS: Acetaminophen 500 MG Tablet 1000 MG PO (05:40)
[2023-07-18 08:11] VITALS: BP 143/67; PULSE 75; RESP 18; TEMP 36.6; O2SAT 98
[2023-07-18 08:17] LABS: Hematocrit 35.7 % (40-54); Hemoglobin 12.3 g/dL (13.0-16.5); Mean Corp Hgb Conc 34.5 g/dL (32-36); Mean Corpuscular Volume 84.2 fL (80-94); Mean Platelet Vol. 11.4 fl (6.2-12.0); Platelet Count 162 K/mm3 (150-450); RBC Distribution Width CV 13.6 % (11.6-14.6); RBC Distribution Width SD 41.8 fl (35.1-43.9); Red Blood Count 4.24 M/mm3 (4.6-6.2); White Blood Count 17.4 K/mm3 (4.4-11.0)
[2023-07-18] MEDS: Ensure Surgery 237 ML LIQUID PO ×2 (08:22→12:21)
[2023-07-18] MEDS: Ketorolac 15 MG/ML Vial IV (08:23)
[2023-07-18] MEDS: 0.9% Saline Lock 10 ML Syringe IV (08:23)
[2023-07-18] MEDS: Insulin Lispro 100 UNIT/ML INSULN.PEN 10 UNIT SC ×2 (08:27→12:17)
[2023-07-18] MEDS: Aspirin 81 MG TAB.CHEW PO (08:27)
[2023-07-18 08:47] LABS: Anion Gap 9 (5-15); BUN 24 mg/dL (7-18); BUN/Creat Ratio 23.8 RATIO (10-20); Calcium,Total 9.2 mg/dL (8.5-10.1); Chloride 108 mmol/L (98-107); Creatinine, Serum 1.01 mg/dL (0.70-1.30); EST Glomerular Filtration Rate 79 mL/min (>60); Est Glom Filt Rate - Afr Amer 96 mL/min (>60); Estimated Creatinine Clearance 113.87 ml/min; Glucose 239 mg/dL (74-106); Potassium 4.1 mmol/L (3.5-5.1); Sodium Level 140 mmol/L (136-145)
[2023-07-18 08:54] LABS: Bedside Glucose 240 mg/dL (74-106)
[2023-07-18] MEDS: Famotidine 20 MG Tablet PO (09:46)
[2023-07-18] MEDS: Lisinopril 20 MG Tablet PO (09:46)
[2023-07-18] MEDS: amLODIPine 10 MG Tablet PO (09:46)
[2023-07-18] MEDS: Insulin Glargine-YFGN 100 UNIT/ML Pen 48 UNIT SC (09:47)
[2023-07-18] MEDS: hydroCHLOROthiazide 25 MG Tablet PO (09:47)
[2023-07-18] MEDS: Senna/Docusate Sodium 1 Tablet 2 TABLET PO (09:47)
[2023-07-18] MEDS: Pregabalin 75 MG Capsule 150 MG PO (09:50)
--- NOTE | 2023-07-18 10:27 | PCM.PN.ORT ---
Subjective Subjective The patient was sitting in bedside chair upon examination. Patient denies any chest pain, shortness of breath, dizziness, lightheadedness, nausea or vomiting, or calf pain. Pain is controlled on medications. No adverse overnight events. Patient is doing overall well. He does complain of some thigh pain secondary to the tourniquet. He has worked with physical therapy. Plan is for patient to be discharged home today. Pain management is controlling his meds upon discharge. Objective Data Objective Data Vital Signs: Vital Signs Temp Pulse Resp BP Pulse Ox O2 Del Method O2 Flow Rate 97.9 F 75 18 143/67 H 98 Room Air 4 07/18/23 08:11 07/18/23 08:11 07/18/23 08:11 07/18/23 08:11 07/18/23 08:11 07/18/23 08:41 07/17/23 13:00 Oxygen Flow Rate (L/min) 4 Oxygen Delivery Method Room Air Weight: 149 kg Body Mass Index (BMI) 44.5 Intake & Output: Intake and Output for Last 24 Hours 07/16/23 07/17/23 07/18/23 23:59 23:59 23:59 Intake Total 3577 / 3577 50 / 50 Balance 3577 / 3577 50 / 50 Lab / Micro Data 07/18/23 07:08 07/18/23 07:08 Labs: Laboratory Results - last 24 hr 07/17/23 14:00: POC Glucose 252 H 07/17/23 16:16: POC Glucose 323 H 07/18/23 07:08: WBC 17.4 H, RBC 4.24 L, Hgb 12.3 L, Hct 35.7 L, MCV 84.2, MCH 29.0, MCHC 34.5, RDW Std Deviation 41.8, RDW Coeff of Mimi 13.6, Plt Count 162, MPV 11.4, Sodium 140, Potassium 4.1, Chloride 108 H, Carbon Dioxide 23.0, Anion Gap 9, BUN 24 H, Creatinine 1.01, Estim Creat Clear Calc 113.87, Est GFR (MDRD) Af Amer 96, Est GFR (MDRD) Non-Af 79, BUN/Creatinine Ratio 23.8 H, Glucose 239 H, Calcium 9.2 07/18/23 08:16: POC Glucose 240 H Micro: Microbiology 07/05/23 14:30 Urine, Clean Catch Urine Culture - Final Culture exhibits no growth. 07/02/23 11:13 Swab (Method) Nasal Screen MRSA/MSSA - Final Radiography Diagnostic Testing: Radiology Impression Knee X-Ray 07/17/23 13:00 IMPRESSION: New postoperative changes related to right total knee arthroplasty. Electronically Signed: Pj Myers MD at 13:14 EDT , Physical Exam Narrative Vital signs stable and afebrile. SCDs and JAME hose are in place bilaterally Patient is able to plantarflex and dorsiflex actively. Sensation is intact to light touch to saphenous, sural, superficial and deep peroneal, and tibial distribution. Dressings are clean dry and intact. Negative Homans bilaterally, negative signs and symptoms of DVT. Const alert, oriented x3 and no apparent distress Assessment & Plan Assessment/Plan (1) Status post total right knee replacement: PLAN: 1. S/P right total knee arthroplasty POD #1 2. Continue Pain Medications: Tylenol and oxycodone while in the hospital. He is currently on meloxicam. Do not take any other nonsteroidal anti-inflammatories while using meloxicam/Mobic. Patient does take ibuprofen 800 mg at home. He is aware not to take this medication while on meloxicam. I also discussed with the patient if he is on chronic nonsteroidal anti-inflammatory he must be checking with his primary care physician every 6 months to monitor his kidney function. We discussed potential side effects long-term. With regards to his pain medications patient currently is managed by pain management Dr. Whyte. Patient is currently on oxycodone 10/325 mg and was given OxyContin 20 mg postoperatively. All pain medications will be managed through his pain management provider. 3. DVT Prophylaxis: Take 81 mg aspirin twice daily for 4 weeks postoperatively for DVT prophylaxis. Patient denies past history of DVT or pulmonary embolism 4. PT/OT: Weightbearing as tolerated with walker 5. H & H: 12.3/35.7, asymptomatic. Labs have been reviewed and patient is stable. No further treatment required 6. Reactive leukocytosis: 17.4, Afebrile. Patient did receive Decadron intraoperatively. No clinical signs of infection. 7. Currently on doxycycline for 2 weeks postoperatively due to staph screening and BMI greater than 40.0. Discussed with the patient potential side effects of doxycycline including sensitivity to the sunlight and increased risk of skin burn. Recommend patient take appropriate precautions. Also recommend patient to take probiotic while on the antibiotic. Patient voiced understanding agreement. 8. Continue postoperative medical management per medicine 9. Encouraged Incentive Spirometry 10. Disposition: Plan will be for discharge home this afternoon as long as patient is medically stable, tolerates therapy, and pain is adequately controlled. Patient does wish to be discharged home today. He has outpatient physical therapy established. He will follow-up per postoperative instructions. With regards to any pain medications he is aware that he needs to be going through his pain management provider. Patient would like his prescriptions E scribed [facility]. Upon discharge he will contact our office with any concerns or questions. I have reviewed the [place] Automated Rx Reporting System (OARRS) report for this patient for refill pattern and other prescriber involvement as part of the appropriate surveillance for the provision of acute and chronic controlled medications. The report was requested and reviewed on the date of this entry and was considered in the prescribing process. This dictation was created using voice recognition software. Phonetic and/or grammatical errors may exist.
--- NOTE | 2023-07-18 10:28 | CASEMGMT ---
SAMIRA ROBERTSON Assessment Face to Face with patient for initial transition planning/care coordination assessment. SAMIRA ROBERTSON introduced self and role at [facility], pt voices understanding. Pt is A&Ox4 and is resting comfortably in bed and is calm. Care providers, pharmacy, and demographics verified. Admitting dx: Rt total Knee PCP: Romel Abraham Specialists: Finn Yun (Endo), Jaspal (PM), Montez (Sewer Repairer) Preferred Pharmacy: [facility] Insurance: [facility] A/B, [facility] [employer] Prescription Benefit: Yes LNOK: Alie Graff (POA and SO) Living Arrangements: Pt lives alone on the ground level of a senior apartment with a flat entrance. ADLs/IADLs: Ind Transportation: Self, SO DME: Pt states that he has a BGM and enough supplies to check his BS. Pt wears a CPAP at night with no additional oxygen. Pt states that he has been using a cane recently. Pt states that he has a FWW and crutches but does not use. Shower grab bars. Toilet grab bars. Medical alert button. HHC/SNF: Denies history or needs. Pt?s goal: Home with OP Therapy Plan: 6 click is 21. Pt states that he feels safe DC home with OP Therapy thru [facility]. Pt states that he has already been to [facility] for his initial visit and that his next appt is Saturday. Pt states that he does not need a new Rx for this. Pt denies further needs at this time. CM to follow for safe DC home. Osiris Cuevas RN, CM
--- NOTE | 2023-07-18 10:34 | DCINST_ITS ---
Discharge Instructions Diet Discharge Diet: No restrictions Activity Discharge Activity: May Not Drive (No driving for 6 weeks postoperatively. Must also be off all narcotics and able to walk 100 feet without the use of cane or walker.) May shower in (days): 1 (Please turn dressing away from water. Okay to get wet as long as dressing is intact to skin.) Ice area for (Minutes): 20 (Every 1-2 hours while awake[address] place barrier between the skin and ice pack.) Weight Bearing Status: Weight bearing as tolerated Keep extremity elevated above heart level: Operative Extremity Dressing / Incision Call your doctor if your incision/area has: Continuous Slow Oozing, Sudden Increased Bleeding, Increased Pain/ Swelling, Increased Redness and Foul Smelling Discharge Call your doctor if you observe: Fever of 101 or Higher, Coldness, Increased Pain, Numbness or Tingling, Change in Color, Shortness of breath, Chest pain, Calf discomfort and Uncontrolled pain Remove Dressing in: 4 days (Okay to remove dressing on July 22, 2023) Additional Dressing/Incision Instructions:: Follow [facility] Post-op Instructions. Once postoperative dressing has been removed only use gentle soap and water over the incision. Do not use any ointments, Neosporin, salves, alcohol pads over the incision for 6 weeks postoperatively. Do not submerge underwater for 6 weeks postoperatively. Continue with JAME hose/elastic stockings for 2 weeks postoperatively. May remove at nighttime but needs to be placed back on the leg during the day. Do NOT use alcohol with narcotic pain medication. Do NOT make important decisions while taking narcotic medication. If you have problems with taking your medication (rash, itching, nausea, etc.) call the office at once. Follow Up Care Test Results: Test results from this visit will be discussed in further detail at your follow- up appointment, if applicable. Discharge Plan Admission Admit Date/Time: 07/17/23 11:44 Attending Provider: Luis A Adkins Primary Care Provider: RICARDO DALLAS Consulting Providers: Miguelito Mesa; Minoo Myers Discharge Orders/Prescriptions Prescriptions: New aspirin 81 mg Tablet,Chewable 81 mg PO BIDCM 30 Days Qty: 60 0RF Rx Instructions: Take 81 mg aspirin twice daily for 4 weeks postoperatively for DVT prophylaxis. After 4 weeks can then go back to his normal 81 mg aspirin daily doxycycline monohydrate 100 mg Capsule 100 mg PO BID 14 Days Qty: 28 0RF Rx Instructions: Take for 2 weeks postoperatively sennosides-docusate sodium [Stool Softener-Stimulant Laxat] 8.6-50 mg Tablet 2 tab PO BID 3 Days Qty: 12 0RF Rx Instructions: Take until first bowel movement, then as needed meloxicam 7.5 mg Tablet 7.5 mg PO BID 30 Days Qty: 60 0RF Rx Instructions: Do not take any other nonsteroidal anti-inflammatories while using m eloxicam/Mobic. famotidine 20 mg Tablet 20 mg PO DAILY 30 Days Qty: 30 0RF Continued oxycodone-acetaminophen [Percocet] 1 EACH tablet 1 tab PO TID amlodipine 10 MG tablet 10 mg PO DAILY hydrochlorothiazide 25 MG tablet 25 mg PO DAILY pregabalin [Lyrica] 150 MG capsule 150 mg PO BID lisinopril 20 mg Tablet 20 mg PO DAILY Fiasp FlexTouch U-100 Insulin 100 unit/mL (3 mL) Insulin Pen 10 unit SUBCUT TID insulin glargine U-300 conc [Toujeo SoloStar U-300 Insulin] 300 unit/mL (1.5 mL) insulin pen 48 unit subcut DAILY Mounjaro 7.5 mg/0.5 mL pen injector 7.5 mg SUBCUT STAPLETON Patient Comments: Inject 7.5 mg subcutaneously one time a week. Discontinued aspirin 81 mg Tablet,Delayed Release (Dr/Ec) 81 mg PO DAILY Referrals / Follow Up: Physical,Therapy [Other] - 07/22/23 RICARDO DALLAS MD [Primary Care Provider] - Edu Barber PA-C [Med Staff - [facility]] - 08/01/23 3:45 pm Disposition Disposition (needs filled in before D/C Order can be placed): Home, Self Care
[2023-07-18 12:15] VITALS: BP 140/77; PULSE 86; RESP 18; TEMP 36.6; O2SAT 95
--- NOTE | 2023-07-18 12:16 | PHA.DC.MC.R ---
Pharmacy [facility] has performed discharge medication reconciliation and counseling for this patient. The patient's discharge medication list was reviewed for discrepancies and discrepancies were resolved. The patient was counseled on the following discharge medications and changes in medications for homegoing were reviewed. 1. DOXYCYCLINE 2. ASPIRIN 3. PEPCID 4. MOBIC The Reason for Use, instructions for use, and potential side effects were reviewed for all new medications. The patient's questions regarding all of their medications were answered. The patient was able to verbally demonstrate an understanding of their discharge medications. Medications at Discharge Home Medications amlodipine 10 mg tablet 10 mg PO DAILY 09/23/15 hydrochlorothiazide 25 mg tablet 25 mg PO DAILY 09/23/15 oxycodone-acetaminophen 10 mg-325 mg tablet (Percocet) 1 tab PO TID 09/23/15 pregabalin 150 mg capsule (Lyrica) 150 mg PO BID 09/23/15 lisinopril 20 mg tablet 20 mg PO DAILY 10/07/20 insulin aspart (niacinamide)(U-100) 100 unit/mL(3 mL) subcutaneous pen (Fiasp FlexTouch U-100 Insulin) 10 unit subcut TID 05/28/22 insulin glargine U-300 conc 300 unit/mL (1.5 mL) subcutaneous pen (Toujeo SoloStar U-300 Insulin) 48 unit subcut DAILY 12/14/22 tirzepatide 7.5 mg/0.5 mL subcutaneous pen injector (Mounjaro) 7.5 mg subcut STAPLETON 06/24/23 aspirin 81 mg chewable tablet 81 mg PO BIDCM 30 days #60 tabs 07/18/23 doxycycline monohydrate 100 mg capsule 100 mg PO BID 14 days #28 caps 07/18/23 famotidine 20 mg tablet 20 mg PO DAILY 30 days #30 tabs 07/18/23 meloxicam 7.5 mg tablet 7.5 mg PO BID 30 days #60 tabs 07/18/23 sennosides 8.6 mg-docusate sodium 50 mg tablet (Stool Softener-Stimulant Laxative) 2 tab PO BID 3 days #12 tabs 07/18/23
[2023-07-18 12:37] LABS: Bedside Glucose 257 mg/dL (74-106)
== END 2023-07-18 13:30 | disposition home or self-care (01) ==
LOC: SDC 14:50 → MS3 14:50
PROVIDERS: Anesthesiology; Admitting Provider Specialist; PCP Internal Medicine Cardiovascular Disease; Referring Provider Specialist; Visit Provider Specialist
PROC: 0SRC0JZ Replacement of Right Knee Joint with Synthetic Substitute, Open Approach (ICD-10-PCS; CPT 27447; principal; 2023-07-17 10:00)
DX: M17.0 Bilateral primary osteoarthritis of knee (principal); J44.9 Chronic obstructive pulmonary disease, unspecified; E11.42 Type 2 diabetes mellitus with diabetic polyneuropathy; E11.319 Type 2 diabetes mellitus with unspecified diabetic retinopathy without macular edema; E66.01 Morbid (severe) obesity due to excess calories; Z68.41 Body mass index [BMI] 40.0-44.9, adult; Z79.4 Long term (current) use of insulin; I10 Essential (primary) hypertension; G47.33 Obstructive sleep apnea (adult) (pediatric); M21.161 Varus deformity, not elsewhere classified, right knee; Z79.899 Other long term (current) drug therapy; Z79.82 Long term (current) use of aspirin; G60.8 Other hereditary and idiopathic neuropathies
CPT/HCPCS: 27447; S2900; 01402; 64447; 36415; 73560; 80048; 81002; 82040; 82962; 83036; 83735; 85025; 85027; 87077; 87081; 87086; 88305; 88311; 94668; 96361; 96365; 96366; 96375; 96376; 97162; 97166; 99221; 99252; 99406; C1776; J7040; J7120; A4216; G0378; G0463; J2405; J3475

== ENCOUNTER → 2023-10-15 | Outpatient (CLI) | payer MEDICARE, MEDICAID, SELFPAY ==
[2023-10-15 17:44] LABS: Amphetamine Urine VISTA NEGATIVE (<1000 ng/mL); Barbiturate Urine VISTA NEGATIVE (< 200 ng/mL); Benzodiazepine Urine VISTA NEGATIVE (< 200 ng/mL); Cocaine Urine VISTA NEGATIVE (< 300 ng/mL); Ecstacy Urine VISTA NEGATIVE (< 500 ng/mL); Methadone Urine VISTA NEGATIVE (< 300 ng/mL); PCP Urine VISTA NEGATIVE (< 25 ng/mL); THC Urine VISTA NEGATIVE (< 50 ng/mL); Vista UDS pH Range 6
== END | disposition home or self-care (01) ==
LOC: LAB 15:05
PROVIDERS: PCP Internal Medicine Cardiovascular Disease; Referring Provider Anesthesiology; Visit Provider Anesthesiology
DX: F11.20 Opioid dependence, uncomplicated (principal)
CPT/HCPCS: 36415; 80307

== ENCOUNTER → 2023-10-18 | Outpatient (CLI) | payer MEDICARE, MEDICAID, SELFPAY ==
--- NOTE | 2023-10-18 10:42 | RAD_ITS ---
STUDY: X-RAY - LEFT SHOULDER REASON FOR EXAM: Male, 63 years old. SHOULDER PAIN TECHNIQUE: view(s) of the shoulder. COMPARISON: None. FINDINGS: Left shoulder prosthesis noted in anatomic alignment and position.. Markedly widened acromioclavicular joint and coracoclavicular space suggesting rupture of the ligament. . Normal acromion. Foreshortened appearance of the clavicle possibly due to prior resection. Normal humeral head and visualized proximal humerus. The soft tissue structures are unremarkable. Normal visualized pulmonary apex. RAD/Shoulder min 2 Views IMPRESSION: AC joint separation with probable coracoclavicular ligamentous tear. Left shoulder prosthesis in anatomic alignment and position Electronically Signed: Donta Phillips MD at 18:53 EDT ,
--- NOTE | 2023-10-18 10:42 | RAD_ITS ---
STUDY: X-RAY - RIGHT SHOULDER REASON FOR EXAM: Male, 63 years old. SHOULDER PAIN TECHNIQUE: 4 view(s) of the shoulder. COMPARISON: None. FINDINGS: Mildly narrowed glenohumeral articulation. Normal acromioclavicular joint. Normal acromion. Normal humeral head and visualized proximal humerus. The soft tissue structures are unremarkable. Normal visualized pulmonary apex. RAD/Shoulder min 2 Views IMPRESSION: Mild degenerative change. No acute fracture or other significant bony pathology. Electronically Signed: Donta Phillips MD at 19:45 EDT ,
--- NOTE | 2023-10-18 10:42 | RAD_ITS ---
HISTORY: Other cervical disc degeneration, unspecified cervical region. TECHNIQUE: XR Spine Cervical 6 or More Views. COMPARISON: None. FINDINGS: VERTEBRAE: Vertebral body heights maintained. Limited evaluation below the C5-6 level due to overlapping soft tissues. Degenerative osteophytes. ALIGNMENT: 2 mm anterolisthesis of C4 on C5 in neutral position, unchanged with flexion and extension maneuver. Straightening of the cervical lordosis. INTERVERTEBRAL DISCS: Mild degenerative endplate changes of C5-6. Degenerative changes with posterior elements with mild right foraminal narrowing of C3-4. SOFT TISSUES: No significant prevertebral soft tissue swelling. RAD/Cerv Spine Obl/Flex/Ext Comp IMPRESSION: No acute fracture identified in the cervical spine with limited evaluation of the lower cervical spine due to overlapping soft tissues. Mild anterolisthesis of C4-5. Mild degenerative change. Electronically Signed: Layla High MD at 10:47 EDT ,
[2023-10-19 08:10] LABS: Carcinoembryonic Antigen 0.8 ng/mL (0.0-4.7)
== END | disposition home or self-care (01) ==
LOC: LAB 10:33
PROVIDERS: PCP Internal Medicine Cardiovascular Disease; Referring Provider Anesthesiology Pain Medicine; Visit Provider Anesthesiology Pain Medicine
DX: R97.0 Elevated carcinoembryonic antigen [CEA] (principal); M50.30 Other cervical disc degeneration, unspecified cervical region; M25.511 Pain in right shoulder; M25.512 Pain in left shoulder
CPT/HCPCS: 36415; 72052; 73030; 82378

== ENCOUNTER 2024-04-17 11:20 | Day surgery (SDC) | payer MEDICARE, SELFPAY ==
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
[2024-04-17] VITALS (7 sets, daily range): BP systolic 116–138; BP diastolic 69–125; PULSE 57–63; RESP 16–18; TEMP 36.4–36.6; O2SAT 94–99; BMI 41.2
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
[2024-04-17 12:27] LABS: Bedside Glucose 102 mg/dL (74-106)
--- NOTE | 2024-04-17 13:00 | AMP_PTH ---
PATIENT: ISA CASTELLANO [place] [facility] [id number] AGE/SX: 63/M ROOM: RE04/17/[address]: Dr. Mario Yun DPM : 1960 BED: DIS: 04/17/2024 SPEC #: [id number] RECD: 04/17/24 18:22 STATUS: SHAKA MARCO A #: [id number] SAUL: 04/17/24 13:[address]: Mario Yun DEPT: SURGICAL PATHOLOGY RECD BY: Alan Ivy ENTERED: 04/20/24 09:02 SP TYPE: Amputation OTHR DR: RICARDO DALLAS MD Tissues: Toe, NOS Procedures: Decalcification bone/plaque Surgery Specimen Level IV HEADER OPERATION: Left hallux amputation PRE-OP DIAGNOSIS: Amputation TISSUE SUBMITTED: Left phalanx MICROSCOPIC DIAGNOSIS Left hallux, amputation: Focal ulceration, acute and chronic inflammation and granulation tissue reaction. Bone with minimal chronic inflammation and reactive changes, negative for acute osteomyelitis. . 04/23/2024 MICROSCOPIC DESCRIPTION Slides are reviewed. GROSS DESCRIPTION Received in fixative is one container labeled with the patient's name and designated Left phalanx. The specimen consists of a portion of toe measuring 7.0 x 3.5 x 2.5cm. The skin surface shows ulceration on the plantar surface of the toe measuring 1.5 x 1.5cm. Nail is present and appears unremarkable. Rn Lactation sections are submitted in three cassettes as follows: 1- ulcerated area, 2&3- bone after decalcification. 04/20/2024 TC:2 CPT:21279,22011
--- NOTE | 2024-04-17 14:03 | SUR.PREOP ---
patient updated on delay of surgery due to case before him going longer. Family was called by RN and also updated on delay of surgery. both understanding at this time.
[2024-04-17] MEDS: Cefazolin 3 GM in Syringe 1 EACH IV (15:45)
[2024-04-17] MEDS: Bupivacaine Mpf 0.5% 30 ML VIAL (17:07)
--- NOTE | 2024-04-17 17:21 | PCM.POST.ANE ---
Anesthesia: Postop Eval I Current Vital Signs Temperature: 97.5 F Pulse Rate: 63 Blood Pressure: 116/77 Respiratory Rate: 16 Pulse Ox: 99 Oxygen Delivery Method: Room Air Assessment Airway patent: Yes Spontaneous unlabored respirations: Yes Mental status: Awake and Calm nausea: No Vomiting: No Anesthesia Complication: No Fluid Hydration Crystalloid volume administer (ml): 50 Total IV fluid infused: 50 Progress Note Anesthesia document: Postop Eval 1 completed: Yes
--- NOTE | 2024-04-17 17:24 | OP.PCM_ITS ---
Problems Associated Problem List Diagnoses (1) Non-pressure chronic ulcer of other part of left foot with necrosis of bone: (2) Other acute osteomyelitis, left ankle and foot: Operative Report (Standard) Operative Information Date of Procedure: 04/17/24 Pre-Operative Diagnosis: 1) Chronic Ulceration to Left Hallux 2) Osteomyelitis to left hallux Post-Operative Diagnosis: same Surgery/Procedure Performed: LEft hallux amputation advacement flap left hallux for defect coverage religious healer: Yes Director Industrial Nursing: nate garcia Tasks completed by dental assisting instructor: Opening, Closing, Altering tissue and Hemostasis: Tie Type of Anesthesia: MAC RN Documented Start/Stop Times: Operation Date: 04/17/24 13:00 Case Time Into Pre-Op 04/17/24 11:31 Out of Pre-Op 04/17/24 15:35 Anesthesia Start 04/17/24 15:45 Into Room 04/17/24 15:45 Procedure Start 04/17/24 16:08 Procedure End 04/17/24 17:08 Anesthesia End 04/17/24 17:15 Out of Room 04/17/24 17:15 Into Recovery 04/17/24 17:18 Procedure Start Time: 04:00 Procedure Stop Time: 05:00 Select all DRAINS/GRAFTS/IMPLANTS that apply: None Special Medications: 30cc 0.5% marcaine plain Estimated Blood Loss: minimal Specimen collected: Yes Description of specimen(s) removed: Left Hallux for microbiology and pathology Description of surgery: Due to chronic ulceration to left hallux and possible concern for osteomyelitis decision was made for definitive amputation of left hallux heal the soft tissue complex and prevent any future life or limb threatening infection Surgical Findings: Patient brought back the operating placed complete in the supine position on the operating room table. Patient induced under MAC anesthesia. The left hallux block was performed using 30 cc half percent Marcaine plain. Left lower extremity well-padded left ankle tourniquet was applied. Left lower extremity was scrubbed prepped draped using typical aseptic fashion. Left lower extremity was elevated exsanguinated tourniquet was inflated to 250 mmHg. Procedures #1/2: Left hallux amputation and advancement flap creation and closure: Due to the complex nature of the location of the wound located along the plantar aspect of the proximal phalangeal base this complicated flap creation due to loss of the plantar flap flap due to and additionally with the nail bed and plate noted dorsally a complicated flap had to be created for adequate soft tissue closure. Initially the flap was drawn to maintain as much dorsal skin as possible to allow for plantar wound closure. This was drawn with a flap extending from excising the plantar proximal phalangeal base wound accidentally dorsally to excise the nailbed with a bilobed nature of the flap to allow for flapping down the dorsal wound flap over the plantar wound as well as a dorsal lobe allowed for dorsal incisional closure creating a serpiginous incision when viewing the incisional site. This was drawn and then made with a 15 blade through the epidermis dermis into subcutaneous tissue and any bleeders ident ified cauterized at this time. There is noted to be 1 bleeder that was hand tied. The the hallux was disarticulated at the metatarsophalangeal joint using sharp dissection. The flap was then undermined and advanced over the large wound defect to allow for adequate tensionless soft tissue closure. Site was flushed with copious muscle normal sterile saline. The toe was passed the back table and split and sent for pathology and microbiology for further evaluation. This included the proximal and distal phalanx. Deep subcutaneous closure performed with simple interrupted buried 3-0 Vicryl. Skin closure performed with commendation of 3-0 and 4-0 Prolene using simple interrupted suture technique. Tourniquet was let down prior to incisional closure and again there was a bleeder that was present MMP hand. Hemostasis obtained. Incisional site was dressed with Betadine Adaptic 4 x 4's Kerlix and Rafael bandage. Patient was transported to PACU vital signs stable vascular status intact all digits for further monitoring prior to discharge. Patient hide procedure well. Patient will maintain heel weightbearing in surgical shoe or cam boot assisted by walker. No complications Amputation of nonviable left hallux due to chronic nonhealing wound noted no acute signs of infection noted deep Specimens as dictated above Complications Complications: No
--- NOTE | 2024-04-17 17:26 | POSTOPAN2_ITS ---
Anesthesia Postop Eval I Sum Postop Eval Completion status Anesthesia document: Postop Eval 1 completed: Yes Anesthesia Postop Eval I Summary Anesthesia Postop Eval I Summary: Anesthesia Postop Eval I: Assessment Summary Airway patent Yes 04/17/24 17:21 LICENSED INVESTMENT SALES ASSISTANT.[email or web address] Spontaneous unlabored Yes 04/17/24 17:21 LICENSED INVESTMENT SALES ASSISTANT.[email or web address] respirations Mental status Awake,Calm 04/17/24 17:21 LICENSED INVESTMENT SALES ASSISTANT.JBLOU nausea No 04/17/24 17:21 LICENSED INVESTMENT SALES ASSISTANT.JBLOU Vomiting No 04/17/24 17:21 LICENSED INVESTMENT SALES ASSISTANT.JBLOU Anesthesia Postop Eval I: Fluid Summary Crystalloid volume administer 50 04/17/24 17:21 LICENSED INVESTMENT SALES ASSISTANT.JBLOU (ml) Colloids volume administered ( ml) Blood Product volume administered (ml) Total IV fluid infused 50 04/17/24 17:21 LICENSED INVESTMENT SALES ASSISTANT.JBLOU Anesthesia Postop Eval I: Summary Notes Anesthesia Complication No 04/17/24 17:21 LICENSED INVESTMENT SALES ASSISTANT.[email or web address] Anesthesia Complication Comment: Post-operative progress note Anesthesia: Postop Eval II Evaluation Mental status: Awake Pain Level: 0 nausea: No Vomiting: No
--- NOTE | 2024-04-17 17:26 | PCM.POSTANE2 ---
Anesthesia Postop Eval I Sum Postop Eval Completion status Anesthesia document: Postop Eval 1 completed: Yes Anesthesia Postop Eval I Summary Anesthesia Postop Eval I Summary: Anesthesia Postop Eval I: Assessment Summary Airway patent Yes 04/17/24 17:21 [email or web address] Spontaneous unlabored Yes 04/17/24 17:21 [email or web address] respirations Mental status Awake,Calm 04/17/24 17:21 [email or web address] nausea No 04/17/24 17:21 SENIOR [email or web address] Vomiting No 04/17/24 17:21 SENIOR [email or web address] Anesthesia Postop Eval I: Fluid Summary Crystalloid volume administer 50 04/17/24 17:21 [email or web address] (ml) Colloids volume administered ( ml) Blood Product volume administered (ml) Total IV fluid infused 50 04/17/24 17:21 SENIOR [email or web address] Anesthesia Postop Eval I: Summary Notes Anesthesia Complication No 04/17/24 17:21 [email or web address] Anesthesia Complication Comment: Post-operative progress note Anesthesia: Postop Eval II Evaluation Mental status: Awake Pain Level: 0 nausea: No Vomiting: No
== END 2024-04-17 18:07 | disposition home or self-care (01) ==
LOC: SDC 11:21 → AC 11:23
PROVIDERS: PCP Internal Medicine Cardiovascular Disease; Referring Provider Podiatrist; Visit Provider Podiatrist
PROC: (CPT 28825; principal; 2024-04-17 12:45)
DX: E11.621 Type 2 diabetes mellitus with foot ulcer (principal); L97.524 Non-pressure chronic ulcer of other part of left foot with necrosis of bone; M86.172 Other acute osteomyelitis, left ankle and foot; Z79.4 Long term (current) use of insulin; E11.42 Type 2 diabetes mellitus with diabetic polyneuropathy; E11.69 Type 2 diabetes mellitus with other specified complication; I10 Essential (primary) hypertension; F17.200 Nicotine dependence, unspecified, uncomplicated; Z79.899 Other long term (current) drug therapy
CPT/HCPCS: 28825; 14040; 01470; 82962; 87070; 87075; 87077; 87102; 87186; 87205; 87206; 88305; 88311; A4216; J2405

== ENCOUNTER → 2024-11-24 | Outpatient (CLI) | payer MEDICARE, MEDICAID, SELFPAY ==
--- NOTE | 2024-11-24 09:35 | MRI_ITS ---
PROCEDURE: UPPER EXT JOINT ONLY(ROUTINE) 11/24/2024 REASON FOR EXAM: SHOULDER PAIN RT BICEP INJURY TECHNIQUE: UPPER EXT JOINT ONLY(ROUTINE) Multiplanar and multisequence images were obtained without IV contrast administration. COMPARISON: None FINDINGS: Bone Marrow: Subcortical cyst formation is noted in the humeral head. There is no occult fracture. There are multiple corticated osteochondral fragments in the joint space with the largest measuring 0.9 cm in the posterior joint space, and 0.8 cm in the superior joint space. AC joint: The AC joint is widened to 1.6 cm, without subluxation, type 2 separation. There is a type 3 acromion with impingement configuration. Rotator cuff: There is moderate supraspinatus muscular atrophy, severe subscapularis and infraspinatus muscular atrophy. There is a full-thickness, full width tear of the supraspinatus with 4.4 cm of retraction. There is a full-thickness, full width tear of the infraspinatus with 3.3 cm of retraction. There is a full-thickness, full-thickness tear of the subscapularis, with 1.5 cm of retraction. Labrum: There is a tear of the labrum from the 10 o'clock-2 o'clock position, including the biceps tendon anchor. Biceps tendon: There is severe tendinopathy of the proximal portion in the intra-articular portion of the biceps tendon without full-thickness tear or retraction. There is a large joint effusion which extends in the subacromial subdeltoid bursa. MRI/Upper Ext Joint Only(Routine) IMPRESSION: Subcortical cyst formation is noted in the humeral head. There are multiple corticated osteochondral fragments in the joint space with t he largest measuring 0.9 cm in the posterior joint space, and 0.8 cm in the superior joint space. The AC joint is widened to 1.6 cm, without subluxation, type 2 separation. There is a type 3 acromion with impingement configuration. There is moderate supraspinatus muscular atrophy, severe subscapularis and infr aspinatus muscular atrophy. There is a full-thickness, full width tear of the supraspinatus with 4.4 cm of retraction. There is a full-thickness, full width tear of the infraspinatus with 3.3 cm of retraction. There is a full-thickness, full-thickness tear of the subscapularis, with 1.5 c m of retraction. There is a tear of the labrum from the 10 o'clock-2 o'clock position, including the biceps tendon anchor. There is severe tendinopathy of the proximal portion in the intra-articular por tion of the biceps tendon without full-thickness tear or retraction. There is a large joint effusion which extends in the subacromial subdeltoid bur sa. Reading Location: [email or web address]
--- OUTSIDE RECORDS SUMMARY | 2024-11-24 18:35 | XMS RPT_ITS | CCD ---
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 Name Role Phone Leticia Dash Unavailable Unavailable Unavailable, Family Physician Unavailable Un available Unavailable, Family Physician Unavailable Un available Leticia Dash Unavailable Unavailable Unavailable, Family Physician Unavailable Un [...] UNKNOWN Attending Unavailable PROVIDER, UNKNOWN Admitting Unavailable LETICIA DASH Referring Unavailable Ricardo Abraham MD Primary Care Provider Ricardo Abraham Primary Care Provider [phone] Ricardo Abraham Primary Care Provider Ricardo Abraham Isa Primary Care Provider Jarad LEYVA, Ricardo R Primary Care Provider Unavaila MD RICARDO Mcmahan Primary Care Provider [phone] Dr. Luis A Adkins Admit Provider [phone] Luis A Adkins Referring Provider Dr. Luis A Adkins Other Provider Dr. Miguelito Mesa Attending Provider Dr. Miguelito Mesa Other Provider Jarad LEYVA, Ricardo R Primary Care Provider Jarad LEYVA, Ricardo R Primary Care Provider REJI MANSFIELD Attending Unavailable REJI MANSFIELD Admitting Unavailable BLACK, RICARDO R Primary Care Unavailable BLACK, RICARDO R Primary Care Unavailable KUPIEC, SHARLENE Referring Unavailable KUPIEC, SHARLENE Attending Unavailable BLACK, RICARDO R Primary Care Unavailable BLACK, RICARDO R Primary Care Unavailable VETOSTACEY, MELISSA Attending Unavailable REJI MANSFIELD Referring Unavailable BLACK, RICARDO R Primary Care Unavailable KUPIEC, SHARLENE Attending Unavailable BLACK, RICARDO R Primary Care Unavailable REJI MANSFIELD Attending Unavailable BLACK, RICARDO R Primary Care Unavailable Mario Yun Referring Unavailable Mario Yun Attending Unavailable BLACK, RICARDO Primary Care Unavailable Mario Yun Attending Unavailable BLACK, RICARDO Primary Care Unavailable BLACK, RICARDO Primary Care Unavailable Edu Mcknight Referring Unavailable Edu Mcknight Attending Unavailable Allergies Allergy Classification Reported Allergen(s) Allergy Type Date of Onset Reaction(s) Facility metFORMIN (1 source) metFORMIN Drug Allergy 4 Swelling [facility]ioid Agonists (1 source) Codeine Drug Allergy 8 Rash [facility] (20 sources) Codeine; Translations: [CODEINE] Drug Allergy 9 Rash [facility] (20 sources) metFORMIN; Translations: [METFORMIN] Drug Allergy 4 Swelling, Other: See Comments [facility] (1 source) OTHER (REVIEW COMMENTS!); Translations: [OTHER (REVIEW COMMENTS!)] Propensity to adverse reactions to drug (disorder) 1 [facility] (20 sources) Seasonal allergy; Translations: [SEASONAL ALLERGIES] Propensity to adverse reactions 1 Other: See Comments [facility] Medications Current Medications Medication Drug Class(es) Dates Sig (Normalized) Sig (Original) acetaminophen 325 mg / oxyCODONE hydrochloride 10 mg oral tablet (20 sources) Opioid Agonist Start: 2015 take 1 tablet by mouth three times daily Oxycodone-Acetami nophen (Percocet) 1 EACH tablet Active 1 TABLET PO THREE TIMES A DAY 2015 12:00am Start: 2015 take 1 tablet by ramy th four times daily Oxycodone-Acetaminophen (Percocet) 1 EAC H tablet Active 1 TABLET PO 4 TIMES DAILY September 22, 2015 11:00pm Start: 2015 take 1 tablet by ramy th every six hours as needed Oxycodone-Acetaminophen (Percocet) 1 EAC H tablet Active 1 TABLET PO EVERY 6 HOURS NEEDED September 22, 2015 11:00pm [id number] 200 actuat albuterol 0.09 mg/actuat metered dose inhaler (3 sources) beta2-Adrenergic Agonist Start: 05-08-2019 take 2 puff(s) by inhalation four times daily as needed for wheezing albuterol sulfate HFA 108 (90 Base) MCG/ACT inhaler Inhale 2 puffs into the lungs 4 times daily as needed for Wheezing 1 Inhaler 5 05/08/2019 Active Start: 05-08-2019 albuterol (PRO VENTIL) nebulizer solution 2.5 mg ALPRAZolam 0.5 mg oral tablet (12 sources) Benzodiazepine Start: 2015 take 1 tablet by mouth twice daily as needed Alprazolam (Xanax) 0.5 MG tablet Active 0.5 MG PO TWICE DAILY NEEDED September 22, 2015 11:00pm amLODIPine 10 mg oral tablet (20 sources) Dihydropyridine Calcium Channel Ofelia Start: 06-05-2005 take 10 mg by mouth once daily Amlodipine Active 10 MG PO DAILY 2015 12:00am amLODIPine 5 mg / benazepril hydrochloride 20 mg oral capsule (20 sources) Dihydropyridine Calcium Channel Ofelia, Angiotensin Converting Enzyme Inhibitor Start: 05-09-2015 amLODIPine-benaze pril (LOTREL) 5-20 mg per capsule 05/09/2015 Active amoxicillin 875 mg / clavulanate 125 mg oral tablet (17 sources) Penicillin-class Antibacterial Start: 06-01-2022 take 1 tablet by mouth twice daily Amoxicillin-Pot Clavulanate Active 1 TABLET PO TWICE A DAY June 01, 2022 1:00am Start: 10-10-2020 take 1 tablet by ramy th twice daily Amoxicillin-Pot Clavulanate (Augmentin) 875-125 mg tablet Active 1 TABLET PO TWICE A DAY October 09, 2020 11:00pm Start: 05-08-2019 End: 05-18-2019 take 1 tablet by mouth twice daily amoxicillin-clavulanate (AUGMENTIN) 875-125 MG per tablet Take 1 tablet by mouth 2 times daily for 10 days 20 tablet 0 05/08/2019 05/18/2019 Active Apxgqjdt-Qpvqtzafe-Bilnoln H MB (KIRK) 7-7-1.5 gram pwpk (20 sources) Arginine-Glutami ne-Calcium HMB (KIRK) 7-7-1.5 gram pwpk Take 1 Each by mouth once daily. Active Arginine-Glutami ne-Calcium HMB (KIRK) 7-7-1.5 gram pwpk Take 1 Each by mouth once daily. 0 Active Comment on above: Take 1 Each by mouth once daily. aspirin 81 mg chewable tablet (12 sources) Platelet Aggregation Inhibitor, Nonsteroidal Anti-inflammatory Drug Start: 07-18-2023 Aspirin Active 81 MG PO TWICE DAILY WITH MEALS 60 July 18, 2023 12:00am Take 81 mg aspirin twice daily for 4 weeks postoperatively for DVT prophylaxis. After 4 weeks can then go back to his normal 81 mg aspirin daily Start: 05-28-2022 End: 07-18-2023 take 81 mg by mouth once daily Aspirin Discontinued 81 MG PO DAILY May 28, 2022 1:00am July 18, 2023 10:35am atorvastatin 20 mg oral tablet (20 sources) HMG-CoA Reductase Inhibitor Start: 04-25-2023 take 1 tablet by mouth once daily at bedtime atorvastatin (LIPITOR) 20 mg tablet Indications: Mixed hyperlipidemia Take 1 tablet by mouth daily at bedtime. 90 tablet 3 04/25/2023 Active Comment on above: Take 1 tablet by ramy th daily at bedtime. azithromycin 250 mg oral tablet (1 source) Macrolide Antimicrobial Start: 05-08-2019 End: 05-12-2019 azithromycin (ZITHROMAX Z-PHILLY) 250 MG tablet Take 2 tablets (500 mg) on Day 1, and then take 1 tablet (250 mg) on days 2 through 5. 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, with long-term current use of insulin (HCC) , Type 2 diabetes mellitus with diabetic polyneuropathy, with long-term current use of insulin (HCC) , Type 2 diabetes mellitus with microalbuminuria, with long-term current use of insulin (HCC) Use 3x per day, IDDM, E 11.42; please dispense meter and supplies per insurance formulary 1 Each 12/31/2023 Active Start: 06-20-2022 End: 12-31-2023 Blood-Glucose Meter Use 3x p er day, IDDM, E 11.42; please dispense meter and supplies per insurance formulary 1 Each 06/20/2022 12/31/2023 Discontinued (Adjust Sig - Block E-Cancel) Start: 06-20-2022 Blood-Glucose Meter Use 3x per day, IDDM, E 11.42; please dispense meter and supplies per insurance formulary 1 Each 06/20/2022 Active Start: 06-20-2022 Blood-Glucose Meter Use 3x per day, IDDM, E 11.42; please dispense meter and supplies per insurance formulary 1 Each 0 06/20/2022 Active Comment on above: Use 3x per day, IDDM , E 11.42; please dispense meter and supplies per insurance formulary docusate sodium 50 mg / sennosides, residential 8.6 mg oral tablet (2 sources) Start: 07-18-19 Sennosides-Docusate Sodium (Stool Softener-Stimulant Laxat) 8.6-50 mg Tablet Active 2 TABLET PO TWICE A DAY 12 July 18, 2023 12:00am Take until first bowel movement, then as needed doxycycline monohydrate 100 mg oral capsule (2 sources) Tetracycline-class Drug Start: 07-18-19 24 take 100 mg by mouth twice daily Doxycycline Monohydrate Active 100 MG PO TWICE A DAY July 18, 2023 12:00am Take for 2 weeks postoperatively esomeprazole 20 mg delayed release oral capsule (12 sources) Proton Pump Inhibitor Start: 09-23-19 16 take 1 capsule by mouth once daily Esomeprazole Magnesium (Nexium) 20 MG capsule Active 20 MG PO DAILY September 22, 2015 11:00pm famotidine 20 mg oral tablet (2 sources) Histamine-2 Receptor Antagonist Start: 07-18-19 24 take 20 mg by mouth once daily Famotidine Active 20 MG PO DAILY July 18, 2023 12:00am flash glucose scanning reader (FREESTYLE ALONSO 2 READER) (20 sources) Start: 06-05-19 flash glucose scanning reader (FREESTYLE ALONSO 2 READER) Use as instructed to monitor glucose continuously, IDDM, E11.42 1 Each 06/05/2022 Active Start: 06-05-2022 flash glucose scanning reader (FREESTYLE ALONSO 2 READER) Use as instructed to monitor glucose continuously, IDDM, E11.42 1 Each 0 06/05/2022 Active Comment on above: Use as instructed to monitor glucose continuously, IDDM, E11.42 flash glucose sensor (FREESTYLE ALONSO 2 SENSOR) kit (20 sources) Start: 07-02-2024 flash glucose sensor (FREESTYLE ALONSO 2 SENSOR) kit Indications: 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, with long-term current use of insulin ([facility]) , Type 2 diabetes mellitus with diabetic polyneuropathy, with long-term current use of insulin ([facility]) , Type 2 diabetes mellitus with microalbuminuria, with long-term current use of insulin ([facility]) , Hypoglycemia due to type 2 diabetes mellitus (HCC) use as directed; one sensor every 14 days, IDDM, E11.42 6 Kit 3 07/02/2024 Active Start: 06-24-2023 End: 07-02-2024 flash glucose sensor (FREEST YLE ALONSO 2 SENSOR) kit Indications: Type 2 diabetes mellitus with diabetic polyneuropathy ([facility]) use as directed; one sensor every 14 days, IDDM, E11.42 2 Kit 11 06/24/2023 07/02/2024 Discontinued Start: 06-24-2023 flash glucose sensor (FREESTYLE ALONSO 2 SENSOR) kit Indications: Type 2 diabetes mellitus with diabetic polyneuropathy (HCC) use as directed; one sensor every 14 days, IDDM, E11.42 2 Kit 11 06/24/2023 Active Start: 06-04-2022 End: 06-24-2023 flash glucose sensor (FREEST YLE ALONSO 2 SENSOR) kit Use as instructed to monitor glucose continuously; one sensor every 14 days; IDDM, E11.42 2 Each 06/04/2022 06/24/2023 Discontinued Start: 06-04-2022 flash glucose sensor (FREESTYLE ALONSO 2 SENSOR) kit Use as instructed to monitor glucose continuously; one sensor every 14 days; IDDM, E11.42 2 Each 06/04/2022 Active Comment on above: Use as instructed to monitor glucose continuously; one sensor every 14 days; IDDM, E11.42 use as directed; one sensor every 14 days, IDDM, E11.42 Humulin 70/30 Insulin Pen (12 sources) Start: 10-07-2020 Humulin 70/30 Insulin Pen Active 55 U MC Continuous October 07, 2020 2:46pm Start: 10-07-2020 Humulin 70/30 Insulin Pen Active 55 U MC Continuous October 06, 2020 11:00pm Start: 10-07-2020 Humulin 70/30 Insulin Pen Active 55 U MC Continuous October 07, 2020 12:00am hydroCHLOROthiazide 25 mg oral tablet (20 sources) Thiazide Diuretic Start: 06-05-2005 HYDROCHLOROTHIAZIDE 25 MG TAB Take one(1) tablet daily. 0 09/16/2008 Active Comment on above: Take one(1) tablet d aily. 3 ml insulin aspart, human 100 unt/ml pen injector (20 sources) Insulin Analog Start: 07-09-2024 insulin aspart U-100 (NOVOLOG FLEXPEN U-100 INSULIN) 100 unit/mL (3 mL) Indications: Type 2 diabetes mellitus with diabetic polyneuropathy, with long-term current use of insulin (HCC) Inject subcutaneously TID meals per sliding scale up to 15 units daily. 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, with long-term current use of insulin (HCC) , Type 2 diabetes mellitus with diabetic polyneuropathy, with long-term current use of insulin (HCC) Inject subcutaneously 10 units breakfast, 10 units lunch, 10 units dinner plus sliding scale up to 50 units daily 30 mL 11 06/10/2023 11/25/2023 Discontinued Start: 04-08-2023 inject 15 [IU] by [place]apleton bcutaneous injection at breakfast, then inject 15 [IU] by subcutaneous injection at lunch, then inject 15 [IU] by subcutaneous injection at dinner, then inject 80 [IU] by subcutaneous injection once daily insulin aspart, niacinamide, (FIASP FLEXTOUCH U-100 INSULIN) 100 unit/mL (3 mL) pen Indications: 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, with long-term current use of insulin (HCC) , Type 2 diabetes mellitus with diabetic polyneuropathy, with long-term current use of insulin (HCC) Inject subcutaneously 15 units breakfast, 15 units lunch, 15 units dinner plus sliding scale up to 80 units daily 30 mL 11 04/08/2023 Active Start: 09-26-2022 inject 24 [IU] by stapleton bcutaneous injection at breakfast, then inject 20 [IU] by subcutaneous injection at lunch, then inject 20 [IU] by subcutaneous injection at dinner, then inject 100 [IU] by subcutaneous injection once daily insulin aspart, niacinamide, (FIASP FLEXTOUCH U-100 INSULIN) 100 unit/mL (3 mL) pen Indications: Type 2 diabetes mellitus with diabetic polyneuropathy, with long-term current use of insulin (HCC) , 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d by mild nonproliferative retinopathy and macular edema, with long-term current use of insulin (HCC) Inject subcutaneously 24 units breakfast, 20 units lunch, 20 units dinner plus sliding scale up to 100 units daily 30 mL 5 09/26/2022 Active Start: 06-29-2022 inject 24 [IU] by stapleton bcutaneous injection at breakfast, then inject 20 [IU] by subcutaneous injection at lunch, then inject 20 [IU] by subcutaneous injection at dinner insulin aspart, niacinamide, (FIASP FLEXTOUCH U-100 INSULIN) 100 unit/mL (3 mL) pen Indications: Type 2 diabetes mellitus with diabetic polyneuropathy, with long-term current use of insulin (HCC) , 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d by mild nonproliferative retinopathy and macular edema, with long-term current use of insulin (HCC) Inject subcutaneously 24 units breakfast, 20 units lunch, 20 units dinner 30 mL 5 06/29/2022 Active Start: 06-20-2022 End: 06-29-2022 inject 22 [IU] by subcutaneous injection at breakfast, then inject 22 [IU] by subcutaneous injection at lunch, then inject 22 [IU] by subcutaneous injection at dinner insulin aspart, niacinamide, (FIASP FLEXTOUCH U-100 INSULIN) 100 unit/mL (3 mL) pen Indications: Type 2 diabetes mellitus with diabetic polyneuropathy, with long-term current use of insulin (HCC) , 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d by mild nonproliferative retinopathy and macular edema, with long-term current use of insulin (HCC) Inject subcutaneously 22 units breakfast, 22 units lunch, 22 units dinner 30 mL 5 06/20/2022 06/29/2022 Discontinued Start: 05-28-2022 Insulin Aspart (Niacinamide) (Fiasp Flextouch U-100 Insulin) 100 unit/mL (3 mL) Insulin Pen Active 10 UNIT SC THREE TIMES A DAY May 28, 2022 1:00am Start: 05-28-2022 Insulin Aspart (Niacinamide) (Fiasp Flextouch U-100 Insulin) 100 unit/mL (3 mL) Insulin Pen Active 20 UNIT SC THREE TIMES A DAY May 28, 2022 12:00am Start: 05-25-2022 End: 06-20-2022 inject 20 [IU] by subcutaneous injection at breakfast, then inject 20 [IU] by subcutaneous injection at lunch, then inject 20 [IU] by subcutaneous injection at dinner insulin aspart, niacinamide, (FIASP FLEXTOUCH U-100 INSULIN) 100 unit/mL (3 mL) pen Indications: Type 2 diabetes mellitus with diabetic polyneuropathy, with long-term current use of insulin ([facility]) , 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d by mild nonproliferative retinopathy and macular edema, with long-term current use of insulin ([facility]) Inject subcutaneously 20 units breakfast, 20 units lunch, 20 units dinner 30 mL 5 05/25/2022 06/20/2022 Discontinued Comment on above: Inject subcutaneousl y 20 units breakfast, 20 units lunch, 20 units dinner Inject subcutaneousl y 22 units breakfast, 22 units lunch, 22 units dinner Inject subcutaneousl y 24 units breakfast, 20 units lunch, 20 units dinner Inject subcutaneousl y 24 units breakfast, 20 units lunch, 20 units dinner plus sliding scale up to 100 units daily Inject subcutaneousl y 15 units breakfast, 15 units lunch, 15 units dinner plus sliding scale up to 80 units daily Inject subcutaneousl y 10 units breakfast, 10 units lunch, 10 units dinner plus sliding scale up to 50 units daily 3 ml insulin degludec 100 unt/ml pen injector (10 sources) Insulin Analog Start: 07-10-2024 insulin degludec (TRESIBA FLEXTOUCH U-100) 100 unit/mL (3 mL) injection pen Inject 20 Units subcutaneously every morning. 15 mL 11 07/10/2024 Active Start: 05-25-2022 End: 06-05-2022 insulin degludec (TRESIBA FL EXTOUCH U-100) 100 unit/mL (3 mL) injection pen Indications: Type 2 diabetes mellitus with diabetic polyneuropathy, with long-term current use of insulin ([facility]) , 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d by mild nonproliferative retinopathy and macular edema, with long-term current use of insulin ([facility]) Inject 60 Units subcutaneously every morning. 30 mL 5 05/25/2022 06/05/2022 Discontinued Comment on above: Inject 60 Units subc utaneously every morning. Insulin Glargine U-300 Conc (Toujeo Solostar U-300 Insulin) 300 unit/mL (1.5 mL) insulin pen (3 sources) Start: 12-14-2022 Insulin Glargine U-300 Conc (Toujeo Solostar U-300 Insulin) 300 unit/mL (1.5 mL) insulin pen Active 48 UNIT SC DAILY December 14, 2022 12:00am Start: 12-14-2022 Insulin Glargi ne U-300 Conc (Fidencioumarcelino Youngostar U-300 Insulin) 300 unit/mL (1.5 mL) insulin pen Active 48 UNIT SC DAILY December 13, 2022 11:00pm 3 ml insulin isophane, human 70 unt/ml / insulin, regular, human 30 unt/ml pen injector (2 sources) Insulin Start: 05-27-2017 Insulin NPH Is ophane & Regular (HUMULIN 70/30 KWIKPEN) (70-30) 100 UNIT per ML injection pen 55 Units 2 times daily (before meals) 0 05/27/2017 Active Start: 05-27-2017 Insulin NPH Is ophane & Regular (HUMULIN 70/30 KWIKPEN) (70- 30) 100 UNIT per ML injection pen INJECT 50 UNITS SUBCUTANEOUSLY BEFORE BREAKFAST AND DINNER 0 05/27/2017 Active lisinopril 20 mg oral tablet (20 sources) Angiotensin Converting Enzyme Inhibitor Start: 10-07-2020 take 1 tablet by mouth once daily lisinopril (ZESTRIL) 20 mg tablet Take 20 mg by mouth once daily. 10/07/2020 Active meloxicam 7.5 mg oral tablet (2 sources) Nonsteroidal Anti-inflammatory Drug Start: 07-18-2023 take 7.5 mg by mouth twice daily Meloxicam Active 7.5 MG PO TWICE A DAY 60 July 18, 2023 12:00am Do not take any other nonsteroidal anti-inflammatorie s while using meloxicam/Mobic. menthol 0.16 mg/mg topical gel (12 sources) Start: 10-08-2020 Menthol-Aloe Vera Extract (Flexall) 16 % Gel Active 1 EACH TOPICAL Q4H October 07, 2020 11:00pm methadone hydrochloride 5 mg oral tablet (7 sources) Opioid Agonist Start: 05-28-2022 take 5 mg by mouth every six hours Methadone Active 5 MG PO EVERY 6 HOURS May 28, 2022 12:00am morphine sulfate 15 mg extended release oral tablet (12 sources) Opioid Agonist Start: 10-10-2020 take 15 mg by mouth twice daily Morphine Active 15 MG PO TWICE A DAY 10 5 October 10, 2020 predniSONE 10 mg oral tablet (1 source) Start: 05-08-2019 End: 05-13-2019 take 1 tablet by mouth twice daily predniSONE (DELTASONE) 10 MG tablet Take 1 tablet by mouth 2 times daily for 5 days 10 tablet 0 05/08/2019 05/13/2019 Active pregabalin 150 mg oral capsule (20 sources) Start: 2015 take 1 capsule by mouth three times daily pregabalin (LYRICA) 150 mg capsule Take 1 capsule by mouth three times daily. 2015 Active Start: 2015 take 1 capsule by mo ut twice daily Pregabalin (Lyrica) 150 MG capsule Active 150 MG PO TWICE A DAY 2015 12:00am Comment on above: Take 1 capsule by mo ut three times daily. 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 6 mL 3 12/31/2023 Active Tirzepatide (Mounjaro) 7.5 mg/0.5 mL pen injector (2 sources) Start: 06-24-2023 Tirzepatide (M ounjaro) 7.5 mg/0.5 mL pen injector Active 7.5 MG SC [place] June 24, 2023 1:00am Tirzepatide (Tirzepatide 7.5 Mg/0.5 Ml Subcutaneous Pen Injector) 7.5 mg/0.5 mL pen injector (1 source) Start: 06-24-2023 Tirzepatide (T irzepatide 7.5 Mg/0.5 Ml Subcutaneous Pen Injector) 7.5 mg/0.5 mL pen injector Active 7.5 MG SC [place] June 24, 2023 12:00am Completed/Discontinued Medications Medication Drug Class(es) Dates Sig (Normalized) Sig (Original) acetaminophen 325 mg oral tablet (1 source) Start: 05-08-2019 End: 05-08-2019 acetaminophen (TYLENOL) tablet 650 mg azithromycin (ZITHROMAX) 500 mg in dextrose 5 % 250 mL IVPB (1 source) Start: 05-08-2019 End: 05-08-2019 azithromycin (ZITHROMAX) 500 mg in dextrose 5 % 250 mL IVPB Blood-Glucose Meter,Continuous (DEXCOM G6 INVESTIGATIONS MANAGER) misc (17 sources) Start: 08-23-2023 End: 12-31-2023 Blood-Glucose Meter,Continuous (DEXCOM G6 INVESTIGATIONS MANAGER) misc Indications: 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, with long-term current use of insulin ([facility]) Use continuously to monitor glucose, IDDM, E 11.42 1 Each 08/23/2023 12/31/2023 Discontinued Start: 08-23-2023 Blood-Glucose Meter,Continuous (DEXCOM G6 INVESTIGATIONS MANAGER) [facility] Indications: 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, with long-term current use of insulin (HCC) Use continuously to monitor glucose, IDDM, E 11.42 1 Each 08/23/2023 Active Start: 08-23-2023 Blood-Glucose Meter,Continuous (DEXCOM G6 INVESTIGATIONS MANAGER) [facility] [place] Indications: 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, with long-term current use of insulin (HCC) Use continuously to monitor glucose, IDDM, E 11.42 1 Each 08/23/2023 Active Comment on above: Use continuously to monitor glucose, IDDM, E 11.42 Blood-Glucose Sensor (DEXCOM G6 SENSOR) miller (17 sources) Start: 08-23-2023 End: 12-31-2023 Blood-Glucose Sensor (DEXCOM G6 SENSOR) miller Indications: 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, with long-term current use of insulin (HCC) Use one sensor every 10 days, IDDM, E 11.42 3 Each 08/23/2023 12/31/2023 Discontinued Start: 08-23-2023 Blood-Glucose Sensor (DEXCOM G6 SENSOR) miller Indications: 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, with long-term current use of insulin (HCC) Use one sensor every 10 days, IDDM, E 11.42 3 Each 08/23/2023 Active Comment on above: Use one sensor every 10 days, IDDM, E 11.42 Blood-Glucose Sensor (FREESTYLE ALONSO 3 SENSOR) miller (12 sources) Start: 05-25-2022 End: 08-24-2022 Blood-Glucose Sensor (FREESTYLE ALONSO 3 SENSOR) miller Indications: Type 2 diabetes mellitus with diabetic polyneuropathy, with long-term current use of insulin (HCC) , 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d by mild nonproliferative retinopathy and macular edema, with long-term current use of insulin (HCC) Use one sensor every 14 days, IDDM, E 11.42 2 Each 05/25/2022 08/24/2022 Discontinued Start: 05-25-2022 Blood-Glucose Sensor (FREESTYLE ALONSO 3 SENSOR) miller Indications: Type 2 diabetes mellitus with diabetic polyneuropathy, with long-term current use of insulin (HCC) , 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d by mild nonproliferative retinopathy and macular edema, with long-term current use of insulin (HCC) Use one sensor every 14 days, IDDM, E 11.42 2 Each 05/25/2022 Active Comment on above: Use one sensor every 14 days, IDDM, E 11.42 Blood-Glucose Transmitter (DEXCOM G6 TRANSMITTER) miller (17 sources) Start: 08-23-2023 End: 12-31-2023 Blood-Glucose Transmitter (DEXCOM G6 TRANSMITTER) miller Indications: 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, with long-term current use of insulin (HCC) Use one transmitter every 90 days, IDDM, E 11.42 1 Each 08/23/2023 12/31/2023 Discontinued Start: 08-23-2023 Blood-Glucose Transmitter (DEXCOM G6 TRANSMITTER) miller Indications: 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, with long-term current use of insulin (HCC) Use one transmitter every 90 days, IDDM, E 11.42 1 Each 08/23/2023 Active Comment on above: Use one transmitter every 90 days, IDDM, E 11.42 calcium chloride 0.0014 meq/ml / potassium chloride 0.004 meq/ml / sodium chloride 0.103 meq/ml / sodium lactate 0.028 meq/ml injectable solution (2 sources) Start: End: lactated ringers iv infusion cefTRIAXone (ROCEPHIN) 2 g in dextrose 5 % 50 mL IVPB (1 source) Start: End: cefTRIAXone (ROCEPHIN) 2 g in dextrose 5 % 50 mL IVPB cholecalciferol 0.05 mg oral capsule (20 sources) Vitamin D Start: End: Cholecalciferol, Vitamin D3, (VITAMIN D-3) 50 mcg (2,000 unit) cap Indications: Vitamin D deficiency One capsule daily 90 capsule 3 11/14/2021 Active Comment on above: One capsule daily 0.5 ml dulaglutide 3 mg/ml auto-injector (19 sources) GLP-1 Receptor Agonist Start: End: inject 1.5 mg by subcutaneous injection every week dulaglutide (TRULICITY) 1.5 mg/0.5 mL pen injector Inject 1.5 mg subcutaneously one time a week. (USE WHILE MOUNJARO IS OUT OF STOCK) 2 mL 5 08/23/2023 08/27/2023 Discontinued Start: 01-19-2021 End: 11-14-2021 inject 1.5 mg by subcutaneous injection every week dulaglutide (TRULICITY) 1.5 mg/0.5 mL pen injector Indications: Uncontrolled type 2 diabetes mellitus with complication, with long-term current use of insulin Inject 1.5 mg subcutaneously one time a week. 12 Each 3 01/19/2021 11/14/2021 Discontinued Start: 10-07-2020 Dulaglutide (T rulicity) 4.5 mg/0.5 mL Pen Injector Active 4.5 MG SC EVERY WEEK October 07, 2020 2:46pm saturday dose Start: 10-07-2020 Dulaglutide (T rulicity) 4.5 mg/0.5 mL Pen Injector Active 4.5 MG SC EVERY WEEK October 06, 2020 11:00pm selvin dose Start: 10-07-2020 Dulaglutide (T rulicity) 4.5 mg/0.5 mL Pen Injector Active 4.5 MG SC EVERY WEEK October 07, 2020 12:00am saturday dose Start: 01-23-2019 Dulaglutide 1. 5 MG/0.5ML SOPN Inject 2 mg into the skin once a week 0 01/23/2019 Active Start: 01-23-2019 Dulaglutide 1. 5 MG/0.5ML SOPN Inject 1.5 mg into the skin 0 01/23/2019 Active Comment on above: Inject 1.5 mg subcut aneously one time a week. Inject 1.5 mg subcut aneously one time a week. (USE WHILE MOUNJARO IS OUT OF STOCK) empagliflozin 25 mg oral tablet (20 sources) Sodium-Glucose Cotransporter 2 Inhibitor Start: End: 023 take 1 tablet by mouth once daily at breakfast empagliflozin (JARDIANCE) 25 mg tablet Indications: Type 2 diabetes mellitus with diabetic polyneuropathy, with long-term current use of insulin (HCC) Take 1 tablet by mouth daily with breakfast. 90 tablet 3 01/09/2022 05/25/2022 Discontinued Start: 10-07-2020 End: 01-07-2022 take 1 tablet by mouth once daily Empagliflozin (Jardiance) 25 mg Tablet Active 25 MG PO DAILY October 06, 2020 11:00pm Comment on above: TAKE 1 TABLET EVERY DAY WITH BREAKFAST Take 1 tablet by ramy th daily with breakfast. ergocalciferol 1.25 mg oral capsule (20 sources) Provitamin D2 Compound Start: 04-25-20 End: 12-06-19 take 1 capsule by mouth every week ergocalciferol 50,000 unit capsule (VITAMIN D2, DRISDOL) Indications: Vitamin D deficiency Take 1 capsule by mouth one time a week. X 12 wks. 12 capsule 0 04/25/2023 12/06/2023 Discontinued Comment on above: Take 1 capsule by mo [facility] one time a week. X 12 wks. 1 ml fentaNYL 0.05 mg/ml injection (1 source) Opioid Agonist Start: 12-11-19 End: 12-12-19 fentaNYL 50 mcg/mL 50 mcg injection (SUBLIMAZE) gabapentin 300 mg oral capsule (8 sources) Anti-epileptic Agent Start: 09-22-19 End: 05-25-19 take 1 capsule by mouth twice daily gabapentin (NEURONTIN) 300 mg capsule Indications: Uncontrolled type 2 diabetes mellitus with diabetic polyneuropathy Take 1 capsule by mouth twice daily for 30 days. 60 capsule 0 09/21/2020 05/25/2022 Discontinued (Discontinued by another Health Care Provider) Start: 01-23-2019 gabapentin (NE URONTIN) 300 MG capsule Take 2 tabs twice daily 0 01/23/2019 Active Comment on above: Take 1 capsule by mo uth twice daily for 30 days. gemfibrozil 600 mg oral tablet (18 sources) Peroxisome Proliferator Receptor alpha Agonist Start: 0 End: 3 take 1 tablet by mouth twice daily gemfibrozil (LOPID) 600 mg tablet Take 1 tablet by mouth twice daily. 180 tablet 3 04/06/2020 08/24/2022 Discontinued Comment on above: Take 1 tablet by ramy th twice daily. glipiZIDE er 10 mg 24 hr extended release oral tablet (20 sources) Sulfonylurea Start: End: take 1 tablet by mouth once daily in the morning glipiZIDE (GLUCOTROL XL) 10mg 24 hr tablet Indications: Type 2 diabetes mellitus with diabetic polyneuropathy, with long-term current use of insulin ([facility]) Take 1 tablet by mouth every morning. 90 tablet 3 01/09/2022 05/25/2022 Discontinued Start: 08-24-2020 End: 01-07-2022 take 10 mg by mouth once daily Glipizide Active 10 MG PO DAILY October 06, 2020 11:00pm Comment on above: Take 1 tablet by ramy th every morning. 0.5 ml HYDROmorphone hydrochloride 1 mg/ml prefilled syringe (1 source) Opioid Agonist Start: 12-11-2023 End: 12-12-2023 HYDROmorphone 0.5 mg injection (DILAUDID) 3 ml insulin aspart protamine, human 70 unt/ml / insulin aspart, human 30 unt/ml pen injector (9 sources) Insulin Analog Start: 03-09-2021 End: 05-25-2022 insulin aspart protamine-insulin aspart (NovoLOG 70-30) 100 unit/mL flexpen Indications: Type 2 diabetes mellitus with diabetic polyneuropathy, with long-term current use of insulin ([facility]) Inject subcutaneously 55 units breakfast and 55 units dinner 90 mL 3 11/14/2021 05/25/2022 Discontinued Comment on above: Inject subcutaneousl y 55 units breakfast and 55 units dinner 1.5 ml insulin glargine 300 unt/ml pen injector (20 sources) Insulin Analog Start: 07-02-2024 End: 07-10-2024 insulin glargine U-300 conc (TOUJEO SOLOSTAR U-300 INSULIN) 300 unit/mL (1.5 mL) Indications: 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, with long-term current use of insulin (HCC) , Type 2 diabetes mellitus with diabetic polyneuropathy, with long-term current use of insulin (HCC) , Type 2 diabetes mellitus with microalbuminuria, with long-term current use of insulin (HCC) Inject subcutaneously 20 units daily in the AM 6 mL 3 07/02/2024 07/10/2024 Discontinued Start: 12-31-2023 End: 07-02-2024 insulin glargine U-300 conc (TOUJEO SOLOSTAR U-300 INSULIN) 300 unit/mL (1.5 mL) Indications: 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, with long-term current use of insulin (HCC) , Type 2 diabetes mellitus with diabetic polyneuropathy, with long-term current use of insulin (HCC) , Type 2 diabetes mellitus with microalbuminuria, with long-term current use of insulin (HCC) Inject subcutaneously 40 units daily in the AM 12 mL 3 12/31/2023 07/02/2024 Discontinued Start: 06-10-2023 End: 12-31-2023 insulin glargine U-300 conc (TOUJEO SOLOSTAR U-300 INSULIN) 300 unit/mL (1.5 mL) Indications: 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, with long-term current use of insulin (HCC) , Type 2 diabetes mellitus with diabetic polyneuropathy, with long-term current use of insulin (HCC) Inject subcutaneously 48 units daily in the AM 6 mL 11 06/10/2023 12/31/2023 Discontinued Start: 04-08-2023 insulin glargi ne U-300 conc (TOUJEO SOLOSTAR U-300 INSULIN) 300 unit/mL (1.5 mL) Indications: 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, with long-term current use of insulin (HCC) , Type 2 diabetes mellitus with diabetic polyneuropathy, with long-term current use of insulin (HCC) Inject subcutaneously 58 units daily in the AM 6 mL 11 04/08/2023 Active Start: 12-14-2022 Insulin Glargi ne U-300 Conc (Toujeo Solostar U-300 Insulin) 300 unit/mL (1.5 mL) insulin pen Active 68 UNIT SC DAILY December 13, 2022 11:00pm Start: 09-26-2022 inject 68 [IU] by [place] bcutaneous injection once daily in the morning, then inject 80 [IU] by subcutaneous injection once daily insulin glargine U-300 conc (TOUJEO SOLOSTAR U-300 INSULIN) 300 unit/mL (1.5 mL) Indications: Type 2 diabetes mellitus with diabetic polyneuropathy, with long-term current use of insulin (HCC) , 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d by mild nonproliferative retinopathy and macular edema, with long-term current use of insulin (HCC) Inject subcutaneously 68 units daily in the AM titrating up to 80 units daily 9 mL 5 09/26/2022 Active Start: 06-29-2022 insulin glargi ne U-300 conc (TOUJEO SOLOSTAR U-300 INSULIN) 300 unit/mL (1.5 mL) Indications: Type 2 diabetes mellitus with diabetic polyneuropathy, with long-term current use of insulin ([facility]) , 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d by mild nonproliferative retinopathy and macular edema, with long-term current use of insulin ([facility]) Inject subcutaneously 68 units daily in the AM 6 mL 5 06/29/2022 Active Start: 06-20-2022 End: 06-29-2022 insulin glargine U-300 conc (TOUJEO SOLOSTAR U-300 INSULIN) 300 unit/mL (1.5 mL) Inject subcutaneously 64 units daily in the AM 6 mL 5 06/20/2022 06/29/2022 Discontinued Start: 06-05-2022 End: 06-20-2022 insulin glargine U-300 conc (TOUJEO SOLOSTAR U-300 INSULIN) 300 unit/mL (1.5 mL) Inject subcutaneously 60 units daily in the AM 6 mL 5 06/05/2022 06/20/2022 Discontinued Comment on above: Inject subcutaneousl y 60 units daily in the AM Inject subcutaneousl y 64 units daily in the AM Inject subcutaneousl y 68 units daily in the AM Inject subcutaneousl y 68 units daily in the AM titrating up to 80 units daily Inject subcutaneousl y 58 units daily in the AM Inject subcutaneousl y 48 units daily in the AM 3 ml insulin lispro-aabc 100 unt/ml pen injector (20 sources) Insulin Analog Start: 07-02-2024 End: 07-09-2024 LEMUEL SWARTZ U-100 INSULIN 100 unit/mL insulin pen Indications: 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, with long-term current use of insulin (HCC) , Type 2 diabetes mellitus with diabetic polyneuropathy, with long-term current use of insulin (HCC) , Type 2 diabetes mellitus with microalbuminuria, with long-term current use of insulin ([facility]) Inject subcutaneously TID meals per sliding scale up to 15 units daily 15 mL 3 07/02/2024 07/09/2024 Discontinued Start: 11-25-2023 End: 07-02-2024 LEMUEL VINCENTPEN U-100 INSULI N 100 unit/mL insulin pen Indications: 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, with long-term current use of insulin (HCC) , Type 2 diabetes mellitus with diabetic polyneuropathy, with long-term current use of insulin ([facility]) , Type 2 diabetes mellitus with microalbuminuria, with long-term current use of insulin ([facility]) Inject subcutaneously 7 units breakfast, 7 units lunch, 7 units dinner plus sliding scale up to 50 units daily 45 mL 3 12/31/2023 07/02/2024 Discontinued ipratropium bromide 0.2 mg/ml inhalation solution (1 source) Anticholinergic Start: 05-08-2019 End: 05-08-2019 ipratropium (ATROVENT) 0.02 % nebulizer solution 0.5 mg Meperidine (1 source) Opioid Agonist Start: 12-11-2023 End: 12-12-2023 meperidine (PF) 12.5 mg injection (DEMEROL) methylPREDNISolone 125 mg injection (1 source) Corticosteroid Start: 05-08-2019 End: 05-08-2019 methylPREDNISolone sodium (SOLU-MEDROL) injection 125 mg ondansetron orally disintegrating 4 mg tab(s) (ZOFRAN ODT) (1 source) Start: 12-11-2023 End: 12-12-2023 take 1 tablet by mouth every six hours as needed ondansetron orally disintegrating 4 mg tab(s) (ZOFRAN ODT) oxyCODONE hydrochloride 5 mg oral tablet (2 sources) Opioid Agonist Start: 12-11-2023 End: 12-12-2023 oxyCODONE IR 5-10 mg tab(s) (ROXICODONE) Start: 12-11-2023 End: 12-11-2023 oxyCODONE IR 5 mg tab(s) (RO XICODONE) piperacillin-tazobactam (ZOSYN) 3,375 mg in dextrose 5 % 50 mL IVPB (add-vantage) (1 source) Start: 10-07-2020 End: 10-07-2020 piperacillin-tazobactam (ZOSYN) 3,375 mg in dextrose 5 % 50 mL IVPB (add-vantage) prochlorperazine 5 mg/ml injectable solution (1 source) Phenothiazine Start: 12-11-2023 End: 12-12-2023 take 10 mg intravenously every six hours as needed prochlorperazine 10 mg injection (COMPAZINE) semaglutide 7 mg oral tablet (2 sources) Start: 08-27-2023 End: 09-02-2023 take 1 tablet by mouth once daily before breakfast, then take 4 tablets by mouth once semaglutide (RYBELSUS) 7 mg tablet Take 1 tablet (7 mg) by mouth daily before breakfast. Take 30 minutes before the first food, beverage, or other oral medications of the day with no more than 4 ounces of plain water (USE WHILE MOUNJARO IS OUT OF STOCK) 30 tablet 5 08/27/2023 09/02/2023 Discontinued semaglutide (OZEMPIC) 1 mg/dose (4 mg/3 mL) pen (18 sources) Start: 01-09-2022 inject 1 mg by subcutaneous injection every week semaglutide (OZEMPIC) 1 mg/dose (4 mg/3 mL) pen Indications: Type 2 diabetes mellitus with diabetic polyneuropathy, with long-term current use of insulin (HCC) Inject 1 mg subcutaneously one time a week. 3 mL 5 01/09/2022 Active Comment on above: Inject 1 mg subcutan eously one time a week. semaglutide (OZEMPIC) 1 mg/dose (4 mg/3 mL) pen injector (3 sources) Start: 11-14-2021 End: 01-07-2022 inject 1 mg by subcutaneous injection every week semaglutide (OZEMPIC) 1 mg/dose (4 mg/3 mL) pen injector Indications: Type 2 diabetes mellitus with diabetic polyneuropathy, with long-term current use of insulin (HCC) Inject 1 mg subcutaneously one time a week. 3 mL 5 11/14/2021 01/07/2022 Discontinued Start: 11-14-2021 inject 1 mg by subcu taneous injection every week semaglutide (OZEMPIC) 1 mg/dose (4 mg/3 mL) pen injector Indications: Type 2 diabetes mellitus with diabetic polyneuropathy, with long-term current use of insulin (HCC) Inject 1 mg subcutaneously one time a week. 3 mL 5 11/14/2021 Active Comment on above: Inject 1 mg subcutan eously one time a week. 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 X 4 wks then increase to 7.5 mg weekly 2 mL 0 04/08/2023 Active Comment on above: Inject 5 mg subcutaneously one time a we ek. 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 2 mL 5 04/08/2023 Active Comment on above: Inject 7.5 mg subcut aneously one time a week. 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 2 mL 5 11/04/2023 Active vancomycin 1000 MG IVPB in 2 50 mL D5W add-vantage (1 source) Start: 10-07-2020 End: 10-07-2020 vancomycin 1000 MG IVPB in 2 50 mL D5W add-vantage Problems Active Problems Problem Classification Problem Date Documented Date Episodic/Chronic Acquired foot deformities (20 sources) Acquired hallux limitus of left great toe; Translations: [Other deformities of toe(s) (acquired), left foot] Episodic Chronic obstructive pulmonary disease and bronchiectasis (1 source) Acute exacerbation of chronic obstructive airways disease Chronic Chronic ulcer of skin (20 sources) Chronic ulcer of foot; Translations: [Non-pressure 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] Chronic Coronary atherosclerosis and other heart disease (20 sources) Coronary arteriosclerosis; Translations: [Atherosclerotic heart disease of [place] coronary artery without angina pectoris] Onset: 12-06-2023 12-06-2023 Chronic Diabetes mellitus with complications (20 sources) Infection of foot due to diabetes mellitus; Translations: [Type 2 diabetes mellitus with other skin complications] Onset: 07-14-2018 Chronic Diabetes mellitus without complication (2 sources) Diabetes mellitus; Translations: [Insulin treated type 2 diabetes mellitus] Chronic Disorders of lipid metabolism (20 sources) Mixed hyperlipidemia; Translations: [Mixed hyperlipidemia] Onset: 09-21-2020 09-21-2020 Chronic Essential hypertension (20 sources) Essential hypertension; Translations: [Essential (primary) hypertension] Onset: 08-13-2005 04-04-2015 Chronic Genitourinary symptoms and ill-defined conditions (1 source) Proteinuria, unspecified; Translations: [Type 2 diabetes mellitus with microalbuminuria, with long-term current use of insulin (HCC)] Onset: 07-02-2024 Episodic Nutritional deficiencies (20 sources) Vitamin D deficiency; Translations: [Vitamin D deficiency, unspecified] Onset: 01-23-2019 01-23-2019 Chronic Osteoarthritis (20 sources) Localized, primary osteoarthritis; Translations: [Primary osteoarthritis, unspecified wrist] Onset: 02-04-2006 03-30-2008 Chronic Other aftercare (5 sources) joint terminal attack controller (current) use of insulin; Translations: [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, with long-term current use of insulin (HCC)] Onset: 11-14-2021 Episodic Other connective tissue disease (2 sources) History of total knee arthroplasty; Translations: [Presence of right artificial knee joint] 07-17-2023 Chronic Other connective tissue disease (2 sources) Presence of right artificial knee joint; Translations: [Knee joint replacement] 07-18-2023 Chronic Other connective tissue disease (20 sources) History of right total knee replacement; Translations: [Presence of right artificial knee joint] Onset: 12-06-2023 12-06-2023 Chronic Other connective tissue disease (16 sources) Foot pain; Translations: [Pain in right foot] 12-20-2021 Episodic Other connective tissue disease (7 sources) Pain in right foot; Translations: [Pain in limb] Episodic Other endocrine disorders (20 sources) Male hypogonadism; Translations: [Testicular hypofunction] Onset: 09-21-2011 09-21-2011 Chronic Other injuries and conditions due to external causes (20 sources) Delayed healing of wound; Translations: [Other injury of unspecified body region, subsequent encounter] 08-30-2021 Episodic Other injuries and conditions due to external causes (20 sources) Other injury of unspecified body region, subsequent encounter; Translations: [Open wound(s) (multiple) of unspecified site(s), complicated] Episodic Other male genital disorders (20 sources) Male erectile dysfunction, unspecified; Translations: [Impotence of organic origin] Onset: 11-19-2011 11-19-2011 Chronic Other nervous system disorders (20 sources) Difficulty walking; Translations: [Difficulty in walking, not elsewhere classified] 08-30-2021 Chronic Other nervous system disorders (20 sources) Neuropathy; Translations: [Other hereditary and idiopathic neuropathies] 12-15-2020 Chronic Other nervous system disorders (12 sources) Difficulty in walking, not elsewhere classified; Translations: [Difficulty in walking] Chronic Other nervous system disorders (20 sources) Other hereditary and idiopathic neuropathies; Translations: [Other specified idiopathic peripheral neuropathy] Chronic Other nervous system disorders (7 sources) Bilateral carpal tunnel syndrome; Translations: [Carpal tunnel syndrome, bilateral upper limbs] 06-18-2023 Chronic Other nervous system disorders (1 source) Carpal tunnel syndrome, bilateral upper limbs; Translations: [Bilateral carpal tunnel syndrome] Onset: 12-11-2023 Chronic Other non-traumatic joint disorders (1 source) Pain in right shoulder; Translations: [Pain in right shoulder] Onset: 11-21-2024 Episodic Other nutritional; endocrine; and metabolic disorders (2 sources) Body mass index 40+ - severely obese; Translations: [Morbid (severe) obesity due to excess calories] Onset: 02-08-2011 02-08-2011 Chronic Other nutritional; endocrine; and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 disease, nor between wild-type and mutant proteins. Examination under polarized light of a Congo Red stain confirms the diagnosis of amyloidosis. Liquid chromatography tandem mass spectrometry (LC-MS/MS) was performed on material laser microdissected from the paraffin block. Disclaimer: This test is not designed to be used in the initial diagnosis of amyloidosis. The amyloid deposits are identified by hematoxylin-eosin, Congo red and, if necessary, by other stains. These deposits are microdissected under visual control and the tissue obtain is digested with trypsin, followed by mass spectrometry analysis. The performance of the test is dependent on the accuracy of the microdissection. Very small amounts of amyloid may not be adequate for this analysis. Confirmation of the results may be obtained by family history, molecular tests or immunohistochemistry. This test was developed and its performance characteristics determined by [facility] [place]. It has not been cleared or approved by the FDA. The laboratory is regulated under CLIA as qualified to perform high-complexity testing. This test is used for clinical purposes. It should not be regarded as investigational or for research. Laboratory Developed Test (LDT) Disclaimer: Performance characteristics of immunohistochemical, immunofluorescent and chromogenic in-situ hybridization tests have been determined by the performing laboratory within [facility]???[facility] Department ([facility], [facility], [facility], [facility], [facility], [facility], or [facility]) in a manner consistent with CLIA requirements. One or more of these tests have not been cleared or approved by the FDA. [facility] is regulated under CLIA as qualified to perform high-complexity testing. These tests are used for clinical purposes. They should not be regarded as investigational or for research. Positive and negative controls stain appropriately. Electronically signed out by: Sushil Crowder MD, PhD Performed By: #### S #### [facility] CLIA [id number] [address] [place] [address] [place] [facility] CLIA [id number] [id number] [facility] #### [id number] #### [facility] CLIA [id number] [id number] [facility] ANES POSTPROC EVALon 024 ANES POSTPROC EVAL HNO ID: [id number] Author: CHALINO ESPINO DO Service: Anesthesiology Author Type: Anesthesiologist Type: Anesthesia Postprocedure Evaluation Filed: 12/11/2023 13:40 Note Text: POST ANESTHESIA EVALUATION NOTE : 1960 Procedure Summary Date: 12/11/23 Room / Location: [place] [address] / [facility] Anesthesia Start: 1221 Anesthesia Stop: 1331 Procedure: DECOMPRESSION NERVE MEDIAN CARPAL TUNNEL (Bilateral: Wrist) Diagnosis: Bilateral carpal tunnel syndrome (Bilateral carpal tunnel syndrome [G56.03]) Surgeons: Reji Mansfield MD Responsible Provider: Chalino Espino DO Anesthesia Type: MAC ASA Status: 3 Anesthesia Type: MAC Last Vitals Vitals Value Taken Time BP 146/67 12/11/23 1330 Temp 12/11/23 1339 Pulse 65 12/11/23 1337 Resp 17 12/11/23 1337 SpO2 91 % 12/11/23 1337 Vitals shown include unfiled device data. Post Anesthesia Patient Status Patient Evaluation: PACU. PACU/ICU Patient Condition: stable. Anticipated Disposition: phase 2 then home. Neurological Status: aware and responsive. Pulmonary Status: breathing comfortably on room air Airway Control: returned to baseline unsupported. Cardiovascular Status: stable. Pain Management: clinically adequate - multimodal analgesia pain management approach Postoperative Hydration: acceptable. Intraoperative Events: no significant anesthesia events Post Operative Nausea/Vomiting Status: no significant post operative nausea or vomiting Recommendation: continue current plan of care and further care per PACU/ICU/floor team. Anesthesia Observations No Documentation SIGNATURE: Chalino Espino DO PATIENT NAME: Isa Mayen DATE: December 11, 2023 TIME: 1:39 PM CSN: [id number] [facility] ANES PRE-OPon 12-11-2023 ANES PRE-OP HNO ID: [id number] Author: CHALINO ESPINO DO Service: Anesthesiology Author Type: Anesthesiologist Type: Anesthesia Preprocedure Evaluation Filed: 12/11/2023 11:36 Note Text: ANESTHESIOLOGY DAY OF SURGERY NOTE : 1960 Procedure Information Date/Time: 12/11/23 1206 Procedure: DECOMPRESSION NERVE MEDIAN CARPAL TUNNEL (Bilateral: Wrist) Location: [facility] / [facility] Surgeons: Reji Mansfield MD Estimated body mass index is 41.56 kg/m? as calculated from the following: Height as of 12/06/23: 185.4 cm (6' 1). Weight as of 12/06/23: 142.9 kg (315 lb). Most recent hematocrit and potassium results: Hematocrit 44.8 06/06/2010 Potassium 3.8 04/24/2023 Relevant Problems No relevant active problems I - PHYSICAL EVALUATION AIRWAY Patient intubated: No. Tracheostomy tube not present Mallampati: II. TM distance: >3 FB. Neck ROM: full ROM without neurological symptoms. Mouth opening: adequate. Short neck: no. Thick neck: no DENTAL Dentures, upper: complete. Dentures, lower: complete. II - ANESTHESIA PLAN ASA Score: 3 Anesthetic Plan: MAC NPO Status: adequate Beta Ofelia Monitoring Plan Monitoring plan: standard ASA. Post Procedure Analgesic Plan Postoperative analgesic plan: parenteral or oral opioids, multimodal analgesia and per surgical service. Informed Consent Anesthetic risks, benefits, alternatives, personnel and consent discussed: yes. Patient / Responsible Libertarian agrees to proceed: yes Patient / Surrogate agrees to blood products: Yes DNR status not reviewed with patient and/or family prior to surgery. Significant changes in the patient condition since the History and Physical, not otherwise documented in primary service progress note: no. Potential Anesthesia issues that may suggest increased risk of complications or contraindication to planned procedure: none. Vitals Value Taken Time BP 141/70 12/11/23 1049 Pulse 64 12/11/23 1049 Resp 18 12/11/23 1049 Temp 36 ?C (96.8 ?F) 12/11/23 1049 SpO2 98 % 12/11/23 1049 Facility-Administered Medications as of 12/11/2023 Medication Dose Route Frequency lidocaine (PF) 10 mg/mL (1 %) 1-2 mg injection (XYLOCAINE) 0.1-0.2 mL INTRADERMAL PRN lactated ringers iv infusion 5-30 mL/hr INTRAVENOUS CONTINUOUS NaCl 0.9% iv flush bag 20 mL INTRAVENOUS PRN Outpatient Medications as of 12/11/2023 Medication Sig lisinopril (ZESTRIL) 20 mg tablet Take 20 mg by mouth once daily. atorvastatin (LIPITOR) 20 mg tablet Take 1 tablet by mouth daily at bedtime. pregabalin (LYRICA) 150 mg capsule Take 1 capsule by mouth three times daily. amLODIPine-benazepril (LOTREL) 5-20 mg per capsule HYDROCHLOROTHIAZIDE 25 MG TAB Take one(1) tablet daily. LYUMJELuana KWIKPEN U-100 INSULIN 100 unit/mL insulin pen Inject subcutaneously 10 units breakfast, 10 units lunch, 10 units dinner plus sliding scale up to 50 units daily (FIASP ON BACKORDER) tirzepatide (MOUNJARO) 7.5 mg/0.5 mL pen injector Inject 7.5 mg under the skin once weekly. Blood-Glucose Sensor (DEXCOM G6 SENSOR) miller Use one sensor every 10 days, IDDM, E 11.42 Blood-Glucose Meter,Continuous (DEXCOM G6 INVESTIGATIONS MANAGER) [facility] Use continuously to monitor glucose, IDDM, E 11.42 Blood-Glucose Transmitter (DEXCOM G6 TRANSMITTER) miller Use one transmitter every 90 days, IDDM, E 11.42 flash glucose sensor (FREESTYLE ALONSO 2 SENSOR) kit use as directed; one sensor every 14 days, IDDM, E11.42 insulin needles, DISPOSABLE, (BD INSULIN PEN NEEDLE UF) 31 gauge x 5/16 Use FOUR pen needles daily insulin glargine U-300 conc (TOUJEO SOLOSTAR U-300 INSULIN) 300 unit/mL (1.5 mL) Inject subcutaneously 48 units daily in the AM blood sugar diagnostic (BLOOD GLUCOSE TEST) test strip Use as instructed; 3 strips per day, IDDM, E 11.42 Blood-Glucose Meter Use 3x per day, IDDM, E 11.42; please dispense meter and supplies per insurance formulary Lancets lancets Use as instructed; 3 lancets daily, IDDM, E11.42 flash glucose scanning reader (FREESTYLE ALONSO 2 READER) Use as instructed to monitor glucose continuously, IDDM, E11.42 Kvvghzlp-Nymnunbko-Nzxqtyu HMB (KIRK) 7-7-1.5 gram pwpk Take 1 Each by mouth once daily. I have interviewed and examined the patient. I have reviewed the medical record and/or the pre-anesthesia evaluation, pertinent labs, and test results. This contains updated information obtained within 48 hours of Surgery/Procedure. SIGNATURE: Chalino Espino DO PATIENT NAME: Isa Mayen DATE: December 11, 2023 TIME: 11:36 AM CSN: [id number] Normal [facility] GLUCOSE, BLOOD (POC)on 12-10 Glucose [Mass/Vol] 104 mg/dL Abnormal 74 - 99 mg/dL [facility] Comment on above: Location:[facility], [address] [place] [address], [facility] The Accu-Chek Inform II glucose meter has not been approved for testing on patients receiving intensive medical intervention or therapy and results from this point of care glucose test should not be used for patient management decisions in these cases. Inaccurate results may also occur from other interfering factors, such as N-acetylcysteine (blood concentrations of greater than 5mg/dL), galactose, extremes of hematocrit (<10 or >65), or high doses of ascorbic acid (vitamin C) greater than 3mg/dL. Consider alternate testing mechanisms (e.g. core lab, blood gas instrument) in the above situations. Interpretation and review of laboratory results Abnormal [facility] Glucose [Mass/Vol] 80 mg/dL 74 - 99 mg/dL [facility] Comment on above: Location:[facility], [facility] [place], [place], [facility] The Accu-Chek Inform II glucose meter has not been approved for testing on patients receiving intensive medical intervention or therapy and results from this point of care glucose test should not be used for patient management decisions in these cases. Inaccurate results may also occur from other interfering factors, such as N-acetylcysteine (blood concentrations of greater than 5mg/dL), galactose, extremes of hematocrit (<10 or >65), or high doses of ascorbic acid (vitamin C) greater than 3mg/dL. Consider alternate testing mechanisms (e.g. core lab, blood gas instrument) in the above situations. [facility] OPERATIVE NOon 12-11-2023 OPERATIVE NO HNO ID: [id number] Author: REJI MANSFIELD MD Service: Orthopaedic Surgery Author Type: Physician Type: Operative Report Filed: 12/11/2023 13:29 Note Text: OPERATIVE/PROCEDURE REPORT LOG ID: [id number] SURGERY/PROCEDURE DATE: 12/11/2023 INCISION/PROCEDURE START TIME: 12:44 PM INCISION CLOSE/PROCEDURE END TIME: 1:21 PM SURGEON(S)/PROCEDURALIST(S) AND SPRINKLER FITTER APPRENTICE(S): Surgeon(s) and Role: * Reji Mansfield MD - Primary Physician Telecommunications Equipment Installer: Paula Kohli PA-C; Melissa Camara PA-C Registered Nurse Hospice Manager: Gill Steve RN SURGERY/PROCEDURE(S): Bilateral carpal tunnel release, open. ANESTHESIA: MAC with local. PREOPERATIVE DIAGNOSIS: Bilateral carpal tunnel syndrome. POSTOPERATIVE DIAGNOSIS: Bilateral carpal tunnel syndrome. OPERATIVE INDICATIONS: This is a pleasant 63 year old male who had worsening, numbness, and tingling. His electrodiagnostic showed Severe carpal tunnel syndrome. He exhausted conservative management and in the office, we discussed the risks, benefits, alternatives, and potential complications involving carpal tunnel release and he wished to pursue surgical intervention. OPERATIVE FINDINGS: Consistent with postoperative diagnosis. Procedure Details: OPERATIVE PROCEDURE: On 12/11/2023, the patient was clearly identified in the preoperative area and marked accordingly on the right and left palms by myself. Patient was taken to the operative suite and placed in the supine position with an armboard on the right and left. Patient received 3 g of Ancef in the IV within 1 hour of incision or tourniquet. Anesthesia assumed care of the head and neck for the remainder of the case and began a MAC anesthetic. All other bony landmarks were appropriately padded in standard fashion. The right upper extremity had a well-padded upper brachium tourniquet applied with Webril padding and set at 250 mmHg, but not yet inflated. After a betadine swab, the leftt palm was injected with 1% lidocaine with epinepherine 1:100,000 for total of 10 mL. The rightt arm was then, first sterilely prepped and draped in standard fashion. An appropriate time-out was conducted and all in the room were in agreement, signed consent form was on the chart. Local anesthetic was provided at the palm and wrist with 1% lidocaine with epinepherine 1:100,000 for total of 10 mL. The upper extremity was exsanguinated with an Esmarch bandage and the tourniquet was applied at 250 mmHg. . A longitudinal incision was made with in line with the third web space from 1 cm distal of the wrist crease to Cantu's cardinal line. I used Delgado Rakes to retract the soft tissues.Bipolar electrocautery was used for hemostasis. I bluntly dissected downwith Littler scissors to distal edge of the transverse carpal ligament until a flash of fat was noted. I directly divided distal edge of the transverse carpal ligament with a #15 blade. Attention was then focused on the proximal portion and I used Littler scissors to bluntly dissect off the volar surface of the transverse carpal ligament. He had a transligamentous motor branch off the distal edge of the TCL and through the muscle. After safe dissection, A carpal tunnel and median nerve protection guide was slid directly under the ligament for dilation and a second time for appropriate positioning, this was passed freely without any resistance. Subsequently, I selected a mini meniscotome Iliamna blade and slid this in the protective guide, completely dividing the transverse carpal ligament. Delgado rakes were used to view up the wound to visualize for complete release and a Avon elevator was used to palpate for complete release. At this point, the tourniquet was taken down and hemostasis was observed. The wound was copiously irrigated with normal saline and I closed with 3-0 nylons in horizontal mattress fashion for a total of 3. Xeroform gauze, sterile 4 x 4 gauze, sterile, Webril padding was applied. I then turned my focused to the left upper extremity. The exact same steps in sequential fashion were carried out on the right side, without the need for a tourniquet, as was outlined previously on the left above. Similarly, a motor branch was identified at the distal edge and protected. Due to his severe, bilateral disease I took some synovium and send for Congo Red for Amyloid to pathology. At the completion of the procedure, the median nerve was noted to be completely released both visually and with palpation of the transected Transverse carpal ligament. The wound was copiously irrigated, tourniquet was taken down. Closure with again completed with 3-0 nylons in horizontal mattress fashion. Xeroform gauze, sterile 4 x 4 gauze, webril padding and a Bias roll was used for final bandage for each hand. There were no complications during the procedures. The patient was safely awoken and transferred to the Postanesthetic Care Unit in stable condition. Pre-O (more content not included)... Normal [facility] SURGICAL PATHOLOGYon 024 CASE REPORT Normal [facility] Comment on above: Order Comment: Speci men Type: TISSUE SPECIMEN Ordering Facility: [facility] Address: [address] [place] [address] Result Comment: Surg ica Pathology Report Case: [id number] Authorizing Provider: Reji Mansfield MD Collected: 12/11/2023 01:16 PM Ordering Location: [facility] Surgery Received: 12/11/2023 03:15 PM Pathologist: Jonah Hernandez MD Specimen: Synovium, left hand for congo red Performed By: #### S #### [facility] CLIA [id number] [address] [place] [address] OF [facility] CLIA [id number] [address] [place] [address] [place] #### [id number] #### [facility] CLIA [id number] [address] [place] [address] [place] CLINICAL HISTORY Normal [facility] Comment on above: Order Comment: Speci men Type: TISSUE SPECIMEN Ordering Facility: [facility] Address: [address] [place] [address] Result Comment: Pre- op diagnosis: Bilateral carpal tunnel syndrome [G56.03] Performed By: #### S #### [facility] CLIA [id number] STATES OF [facility] CLIA [id number] [address] [id number] [place] #### [id number] #### [facility] CLIA [id number] [address] [place] [address] [place] DIAGNOSIS COMMENT The results of amylo id subtyping by mass spectrometry will be reported separately. [facility] Comment on above: Order Comment: Speci men Type: TISSUE SPECIMEN Ordering Facility: [facility] Address: [address] [place] [address] Performed By: #### S #### [facility] CLIA [id number] [address] [place] [address] [place] [facility] CLIA [id number] [address] [place] [address] [place] #### [id number] #### [facility] CLIA [id number] [address] [place] [address] [place] FINAL DIAGNOSIS [facility] Comment on above: Order Comment: Speci men Type: TISSUE SPECIMEN Ordering Facility: [facility] Address: [address] [place] [address] Result Comment: Brandy felton, biopsy: - Tenosynovium with diminutive amyloid deposits. See comment. - A Congo red stain highlights the small amyloid deposits. Performed By: #### S #### [facility] CLIA [id number] [address] [place] [address] [place] [facility] CLIA [id number] [address] [place] [address] [place] #### [id number] #### [facility] CLIA [id number] [address] [place], [place] [id number] [place] FINAL PERFORMING LAB [facility] Comment on above: Order Comment: Speci men Type: TISSUE SPECIMEN Ordering Facility: [facility] Address: [address] [place] [address] Result Comment: Diag nostic interpretation performed at [facility], [address] [place] [address] CLIA# [id number] Hydraulic Press Operator: Bowen Lindsay M.D. Performed By: #### S #### [facility] CLIA [id number] [address] [place] [address] [place] [facility] CLIA [id number] [address] [place] [address] [place] #### [id number] #### [facility] CLIA [id number] [address] [place] [address] [place] GROSS DESCRIPTION A. Synovium Normal [facility] Comment on above: Order Comment: Speci men Type: TISSUE SPECIMEN Ordering Facility: [facility] Address: [address] [place] [address] Result Comment: Rece ived in formalin labeled synovium, left hand is a single fragment of soft pink-coello tissue measuring 2.1 x 0.4 x 0.2 cm. The cut surface is coello-pink and soft. Specimen is totally submitted in cassette A1. MBB/MLG December 12, 2023 9:16 AM Gross examination performed at [facility], [address] [place] [address] Performed By: #### S #### [facility] [place] [id number] [address] [place] [address] [place] [facility] CLIA [id number] [address] [place] [address] [place] #### [id number] #### [facility] CLIA [id number] [address] [place] [address] [place] 12-06-2023 MARK Telephone (Latio) ISA MAYEN Ankush ([id number]) 1960 M Date Time Provider Department 12/06/23 SRIKANTH LY During your visit today, we recorded the following information about you: Srikanth Ly APRN.CNP 12/06/2023 3:04 PM Signed Please request recent labs including A1c from [facility] earlier this year. Blanche Martel LPN 12/06/2023 3:15 PM Addendum Printed labs from [facility]. Copy sent to [facility] through Onbase scanning. WALLACE Pizarro Jessica, LPN 12/06/2023 3:30 PM Signed Scanned CXR from 12/10/22 into [facility] through Onbase scanning. Blanche Martel LPN Allergies As of Date: 12/06/2023 Noted Allergy Reaction CODEINE 08/06/2008 2 - Rash Comments: RASH METFORMIN 04/05/2014 14 - Other: See Comments Comments: Tongue swelling SEASONAL ALLERGIES 02/06/2011 14 - Other: See Comments Comments: Watery eyes, stuffy nose, sneezing Date Reviewed: 12/06/2023 Reviewed by: Srikanth Ly APRN.VERTICAL BORER - Fully Assessed Reason for Visit: Request Outside Medical Records [[id number]] Prescriptions as of 12/09/2023 - LEMUEL SWARTZ U-100 INSULIN 100 unit/mL insulin pen Inject subcutaneously 10 units breakfast, 10 units lunch, 10 units dinner plus sliding scale up to 50 units daily (FIASP ON BACKORDER) - tirzepatide (MOUNJARO) 7.5 mg/0.5 mL pen injector Inject 7.5 mg under the skin once weekly. - Blood-Glucose Sensor (DEXCOM G6 SENSOR) miller Use one sensor every 10 days, IDDM, E 11.42 - Blood-Glucose Meter,Continuous (DEXCOM G6 INVESTIGATIONS MANAGER) misc Use continuously to monitor glucose, IDDM, E 11.42 - Blood-Glucose Transmitter (DEXCOM G6 TRANSMITTER) miller Use one transmitter every 90 days, IDDM, E 11.42 - flash glucose sensor (FREESTYLE ALONSO 2 SENSOR) kit use as directed; one sensor every 14 days, IDDM, E11.42 - insulin needles, DISPOSABLE, (BD INSULIN PEN NEEDLE UF) 31 gauge x 09/18 Use FOUR pen needles daily - insulin glargine U-300 conc (TOUJEO SOLOSTAR U-300 INSULIN) 300 unit/mL (1.5 mL) Inject subcutaneously 48 units daily in the AM - atorvastatin (LIPITOR) 20 mg tablet Take 1 tablet by mouth daily at bedtime. - blood sugar diagnostic (BLOOD GLUCOSE TEST) test strip Use as instructed; 3 strips per day, IDDM, E 11.42 - Blood-Glucose Meter Use 3x per day, IDDM, E 11.42; please dispense meter and supplies per insurance formulary - Lancets lancets Use as instructed; 3 lancets daily, IDDM, E11.42 - flash glucose scanning reader (FREESTYLE ALONSO 2 READER) Use as instructed to monitor glucose continuously, IDDM, E11.42 - pregabalin (LYRICA) 150 mg capsule Take 1 capsule by mouth three times daily. - Dpllcrqi-Xgojhxbfk-Owejxga HMB (KIRK) 7-7-1.5 gram pwpk Take 1 Each by mouth once daily. - amLODIPine-benazepril (LOTREL) 5-20 mg per capsule - HYDROCHLOROTHIAZIDE 25 MG TAB Take one(1) tablet daily. 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] 02/04/2006 PAIN IN LIMB [M79.609] 04/15/2006 Hypogonadism male [E29.1] 09/21/2011 ED (erectile dysfunction) [N52.9] 11/19/2011 Prostatitis [N41.9] 11/19/2011 Sleep apnea [G47.30] 04/05/2014 Chalazion of left lower eyelid [H00.15] 08/18/2014 05/20/2018 Esophageal foreign body [T18.108A] 09/28/2015 Pharyngoesophageal dysphagia [R13.14] 10/14/2015 Vitamin D deficiency [E55.9] 01/23/2019 Mixed hyperlipidemia [E78.2] 09/21/2020 Type 2 diabetes mellitus with diabetic polyneur*11/14/2021 Class 3 severe obesity with serious comorbidity*08/24/2022 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 Author Type: Nurse Practitioner Type: H&P Filed: 12/09/2023 14:03 Note Text: [facility] HISTORY AND PHYSICAL EXAMINATION SERVICE DATE: 12/06/2023 SERVICE TIME: 2:02 PM PRIMARY CARE PHYSICIAN: Ricardo Abraham MD Assessment Patient has the following medical conditions which may affect jamila-operative course: Class 3 severe obesity with serious comorbidity and body mass index (BMI) of 40.0 to 44.9 in adult (HCC) Assessment: Body mass index is 41.56 kg/m?. Sleep apnea Assessment: c/w CPAP Essential hypertension Assessment: controlled on rx Last 14 BP Last 14 Encounter BP Readings: Date: BP: 12/06/2023 122/72 08/24/2022 127/78 06/29/2022 131/74 05/25/2022 122/81 11/14/2021 118/71 03/09/2021 139/70 11/04/2020 117/68 09/21/2020 128/57 01/05/2020 101/68 01/23/2019 124/72 10/17/2018 151/93 07/14/2018 130/80 05/27/2017 126/72 01/21/2017 134/90 Mixed hyperlipidemia Assessment: c/w statin Type 2 diabetes mellitus with diabetic polyneuropathy, with long-term current use of insulin (HCC) Assessment: IDDM, and weekly injectable, following endo and Lyrica for neuropathy, newer A1c requested from [facility]. Last Mounjaro injection 11/30/23, pt knows to HOLD next dose prior to surgery A1c 07/02/2022 6.3 from [facility], to be scanned into psychiatric Hemoglobin A1C (%) Date Value 04/24/2023 6.1 01/05/2020 11.0 Hemoglobin A1C (POCT) (%) Date Value 08/24/2022 7.0 Pulmonary nodule Assessment: no follow up on file 05/28/[address] Impression IMPRESSION: No acute pulmonary process is identified. Subcentimeter indeterminate pulmonary nodules measuring up to 6 mm in size. Incidental Finding: Follow-up for these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 diabetic polyneur*11/14/2021 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 criteria. Hemoglobin (Bld) [Mass/Vol] 12.3 g/dL 13.0-16.5 [facility] Potassium [Moles/Vol] 4.1 mmol/L 3.5-5.1 [facility] Sodium [Moles/Vol] 140 mmol/L 136-145 [facility] WBC (Bld) [#/Vol] 17.4 10*3/uL 4.4-11.0 [facility] Determination of erythrocyte mean corpuscular volume (MCV)Ordered By: Luis A Adkins on 07-18-2023 MCV (RBC) [Entitic vol] 84.2 fL 80-94 [facility] Erythrocyte distribution wid th ratioOrdered By: Luis A Adkins on 07-18-2023 Erythrocyte distribution width (RBC) [Ratio] 13.6 % 11.6-14.6 [facility] Erythrocyte distribution wid th standard deviationOrdered By: Luis A Adkins on 07-18-2023 Erythrocyte distribution width (RBC) [Entitic vol] 41.8 fL 35.1-43.9 [facility] Hematocrit Auto (Bld) [Volum e fraction]Ordered By: Luis A Adkins on 07-18-2023 Hematocrit (Bld) [Volume fraction] 35.7 % 40-54 [facility] Laboratory - Chemistry and C hemistry - challengeOrdered By: Luis A Adkins on 07-18-2023 CO2 [Moles/Vol] 23.0 mmol/L 21.0-32.0 [facility] Urea nitrogen/Creatinine [Mass ratio] 23.8 mg/mg 10-20 [facility] Laboratory - Hematology and Cell countsOrdered By: Luis A Adkins on 07-18-2023 MCH (RBC) [Entitic mass] 29.0 pg 27.0-32.0 [facility] MCHC (RBC) [Mass/Vol] 34.5 g/dL 32-36 [facility] Platelet mean volume (Bld) [Entitic vol] 11.4 fL 6.2-12.0 [facility] Platelets (Bld) [#/Vol] 162 10*3/uL 150-450 [facility] No Panel InformationOrdered By: Luis A Adkins on 07-18-2023 Estimated Creatinine Clearance Calc 113.87 ml/min [facility] Estimated GFR (MDRD) Amer 96 mL/min >60 [facility] Comment on above: GFR Calc Estimated GFR (MDRD) Non-Af Amer 79 mL/min >60 [facility] Comment on above: Non- GFR Calc RBC Auto (Bld) [#/Vol]Ordere d By: Luis A Adkins on 07-18-2023 RBC (Bld) [#/Vol] 4.24 10*6/uL 4.6-6.2 [facility] Serum or plasma calcium camelia urement (mass/volume)Ordered By: Luis A Adkins on 07-18-2023 Calcium [Mass/Vol] 9.2 mg/dL 8.5-10.1 [facility] Serum or plasma creatinine m easurement (mass/volume)Ordered By: Luis A Adkins on 07-18-2023 Creatinine [Mass/Vol] 1.01 mg/dL 0.70-1.30 [facility] Comment on above: The validity of the calculated GFR & GFRAA in patients over 70 years has not been determined. Clinical correlation is essential. Serum or plasma urea nitroge n measurement (mass/volume)Ordered By: Luis A Adkins on 07-18-2023 Urea nitrogen [Mass/Vol] 24 mg/dL 7-18 [facility] Thin prep Papanicolaou smear with manual screeningOrdered By: Luis A Adkins on 07-18-2023 Thin prep Papanicolaou smear with manual screening 257 mg/dL 74-106 [facility] Comment on above: MANAGEMENT OF PATIEN T CARE PER NURSING PROTOCOL Thin prep Papanicolaou smear with manual screening 9 5-15 [facility] Bilirubin Test strip Ql (U)O rdered By: Luis A Adkins on 07-05-2023 Bilirubin Ql (U) Negative Negative [facility] Culture, urineOrdered By: St nilo Adkins on 07-05-2023 Bacteria identified Cx Nom (U) Culture exhibits no growth. [facility] Ketones Test strip Ql (U)Ord ered By: Luis A Adkins on 07-05-2023 Ketones Ql (U) Negative Negative [facility] Nitrite Test strip Ql (U)Ord ered By: Luis A Adkins on 07-05-2023 Nitrite Ql (U) Negative Negative [facility] Protein Test strip Ql (U)Ord ered By: Luis A Adkins on 07-05-2023 Protein Ql (U) Negative Negative [facility] Urine blood detectionOrdered By: Luis A Adkins on 07-05-2023 RBC Ql (U) Negative Negative [facility] Urine clarityOrdered By: James Adkins on 07-05-2023 Clarity (U) Clear Clear [facility] Urine color determinationOrd ered By: Luis A Adkins on 07-05-2023 Color (U) Yellow Yellow [facility] Urine glucose detectionOrder ed By: Luis A Adkins on 07-05-2023 Glucose Ql (U) Normal mg/dl Normal [facility] Urine leukocyte esterase det ection by dipstickOrdered By: Luis A Adkins on 07-05-2023 Leukocyte esterase Test strip Ql (U) Negative Negative [facility] Urine pHOrdered By: Luis A toure on 07-05-2023 pH (U) 5.0 [pH] 5.0 - 8.0 [facility] Urine specific gravity measu rementOrdered By: Luis A Adkins on 07-05-2023 Specific gravity (U) [Rel density] 1.020 1.002-1.03 0 [facility] Urine urobilinogen measureme ntOrdered By: Luis A Adkins on 07-05-2023 Urobilinogen Ql (U) Normal mg/dl Normal [facility] Absolute lymphocyte countOrd ered By: Luis A Adkins on 07-02-2023 Lymphocytes Auto (Unsp spec) [#/Vol] 3.44 10*3/uL 0.83-4.51 [facility] Automated lymphocyte count a s percentage of total leukocytesOrdered By: Luis A Adkins on 07-02-2023 Lymphocytes/100 WBC Auto (Unsp spec) 22.6 % 19-41 [facility] Basophil percentageOrdered B y: Luis A Adkins on 07-02-2023 Basophils/100 WBC (Bld) 0.6 % 0-1 [facility] Eosinophils/100 WBC (Bld) 1.9 % 0-5 [facility] Monocytes/100 WBC (Bld) 9.1 % 0-10 [facility] Neutrophils (Bld) [#/Vol] 9.9 10*3/uL 2.0-7.7 [facility] Neutrophils/100 WBC (Bld) 65.1 % 47-70 [facility] Immature granulocytes/100 WB C Auto (Bld)Ordered By: Luis A Adkins on 07-02-2023 Immature granulocytes/100 WBC (Bld) 0.700 % 0.0-0.9 [facility] Comment on above: IG% - Immature Granu locytes (promyelocytes, myelocytes and metamyelocytes) > 1% indicates that a LEFT SHIFT is Present. Laboratory - Chemistry and C hemistry - challengeOrdered By: Kevin George on 07-02-2023 Magnesium [Mass/Vol] 2.2 mg/dL 1.6-2.6 [facility] Laboratory - Hematology and Cell countsOrdered By: Luis A Adkins on 07-02-2023 Nucleated RBC/100 WBC (Bld) [Ratio] 0 % 0-5 [facility] No Panel InformationOrdered By: Luis A Adkins on 07-02-2023 Nasal Screen MRSA/MSSA [facility] Thin prep Papanicolaou smear with manual screeningOrdered By: Luis A Adkins on 07-02-2023 Thin prep Papanicolaou smear with manual screening 4.1 g/dL 3.2-5.0 [facility] Whole blood hemoglobin A1c/t otal hemoglobin ratio (mass fraction)Ordered By: Luis A Adkins on 07-02-2023 HbA1c (Bld) [Mass fraction] 6.3 % 3.8-5.6 [facility] Comment on above: Normal < 5.7 % Predi abetic 5.7 - 6.4 % Diabetic >or= 6.5 % Please note range changes. 25(OH)D3 SerPl-ncon 2022 25-hydroxyvitamin D3 [Mass/Vol] 13.8 ng/mL Low 31.0-80.0 [facility] Comment on above: Order Comment: Speci men Type: BLOOD SPECIMEN Ordering Facility: [facility] Address: [address] [place] [address] Result Comment: Clas sification of 25 [place] Vitamin D status: Deficiency/Insufficiency: < or = 30 ng/ml. Sufficiency/Optimal Levels: 31-80 ng/mL Toxicity: > 100 ng/mL. Test performed by chemiluminescent immunoassay. Performed By: #### 1 989-3 #### [facility] CLIA [id number] [address] [place] [address] [place] ALBUMIN/CREAT RATIO RND URon 04-24-2023 Albumin DL <= 20 mg/L (U) [Mass/Vol] 131.9 mg/L Normal [facility] Comment on above: Order Comment: Speci men Type: TISSUE SPECIMEN Ordering Facility: [facility] Address: [address] [place] [address] Performed By: #### S #### [facility] CLIA [id number] [address] [facility] [place] [address] [place] [facility] CLIA [id number] [address] [place] [address] [place] #### [id number] #### [facility] CLIA [id number] [address] [place] [address] [place] Albumin/Creatinine (U) [Mass ratio] 64 mg/g High <30 [facility] Comment on above: Order Comment: Speci men Type: TISSUE SPECIMEN Ordering Facility: [facility] Address: [address] [place] [address] Result Comment: Adul t Male and Female Nephrotic Criteria: <30 mg/g is considered normal to mildly increased 30-300 mg/g is considered moderately increased >300 mg/g is considered severely increased KDIGO. (2013). KDIGO 2012 Clinical Practice Guideline for the Evaluation and Management of Chronic Kidney Disease. Official Journal of the International Society of Nephrology, 3(1), 1-150. Performed By: #### S #### [facility] CLIA [id number] [address] [place] [address] [place] [facility] CLIA [id number] [address] [place] [address] [place] #### [id number] #### [facility] CLIA [id number] [address] [place] [address] [place] Creatinine (U) [Mass/Vol] 206.5 mg/dL Normal 20.0-300.0 [facility] Comment on above: Order Comment: Speci men Type: TISSUE SPECIMEN Ordering Facility: [facility] Address: [address] [place] [address] Performed By: #### S #### [facility] CLIA [id number] [address] [place] [address] [place] [facility] CLIA [id number] [address] [place] [address] [place] #### [id number] #### [facility] CLIA [id number] [address] [place], [place] [id number] [place] Comprehensive metabolic 2000 panelon 04-24-2023 Albumin [Mass/Vol] 4.6 g/dL Normal 3.9-4.9 [facility] Comment on above: Order Comment: Speci men Type: BLOOD SPECIMEN Ordering Facility: [facility] Address: [address] [place] [address] Performed By: #### 2 4331-1, 44915-8, 3015-3 #### [facility] CLIA [id number] [address] [place] [address] [place] ALP [Catalytic activity/Vol] 72 U/L Normal 38-113 [facility] Comment on above: Order Comment: Speci men Type: BLOOD SPECIMEN Ordering Facility: [facility] Address: [address] [place] [address] Performed By: #### 2 4331-1, 41427-2, 3015-3 #### [facility] CLIA [id number] [address] [place] [address] [place] ALT [Catalytic activity/Vol] 24 U/L Normal 10-54 [facility] Comment on above: Order Comment: Speci men Type: BLOOD SPECIMEN Ordering Facility: [facility] Address: [address] [place] [address] Performed By: #### 2 4331-1, , 3 #### [facility] CLIA [id number] [address] [place] [address] [place] Anion gap [Moles/Vol] 15 mmol/L Normal 9-18 [facility] Comment on above: Order Comment: Speci men Type: BLOOD SPECIMEN Ordering Facility: [facility] Address: [address] [place] [address] Performed By: #### 2 4331-1, , 3 #### [facility] CLIA [id number] [address] [place] AST [Catalytic activity/Vol] 29 U/L Normal 14-40 [facility] Comment on above: Order Comment: Speci men Type: BLOOD SPECIMEN Ordering Facility: [facility] Address: [address] [place] [address] Performed By: #### 2 4331-1, , 3015-3 #### [facility] CLIA [id number] [address] [place] Bilirubin [Mass/Vol] 0.4 mg/dL Normal 0.2-1.3 [facility] Comment on above: Order Comment: Speci men Type: BLOOD SPECIMEN Ordering Facility: [facility] Address: [address] [place] [address] Performed By: #### 2 4331-1, 81692-6, 3 #### [facility] CLIA [id number] [address] [place] [address] [place] Calcium [Mass/Vol] 9.9 mg/dL Normal 8.5-10.2 [facility] Comment on above: Order Comment: Speci men Type: BLOOD SPECIMEN Ordering Facility: [facility] Address: [address] [place] [address] Performed By: #### 2 4331-1, 57054-3, 3 #### [facility] CLIA [id number] [address] [place] [address] [place] Chloride [Moles/Vol] 104 mmol/L Normal 97-105 [facility] Comment on above: Order Comment: Speci men Type: BLOOD SPECIMEN Ordering Facility: [facility] Address: [address] [place] [address] Performed By: #### 2 4331-1, , 3015-07 #### [facility] CLIA [id number] [address] [place] [address] [place] CO2 [Moles/Vol] 24 mmol/L Normal 22-30 [facility] Comment on above: Order Comment: Speci men Type: BLOOD SPECIMEN Ordering Facility: [facility] Address: [address] [place] [address] Performed By: #### 2 4331-1, , 3 #### [facility] CLIA [id number] [address] [place] [address] [place] Creatinine [Mass/Vol] 1.41 mg/dL High 0.73-1.22 [facility] Comment on above: Order Comment: Speci men Type: BLOOD SPECIMEN Ordering Facility: [facility] Address: [address] [place] [address] Performed By: #### 2 4331-1, , 3 #### [facility] CLIA [id number] [address] [place] [address] [place] Creatinine and Glomerular filtration rate.predicted panel (S/P/Bld) 56 mL/min/1.73m??? Low >=60 [facility] Comment on above: Order Comment: Gopi rhodes Type: BLOOD SPECIMEN Ordering Facility: [facility] Address: [place] [address] Result Comment: Debbie mated Glomerular Filtration Rate (eGFR) is calculated using the 2020 CKD-EPI creatinine equation. This equation utilizes serum creatinine, sex, and age as parameters. The creatinine assay has traceable calibration to isotope dilution-mass spectrometry. Refer to KDIGO guidelines for clinical interpretation. In patients with unstable renal function, e.g. those with acute kidney injury, the eGFR may not accurately reflect actual GFR. Performed By: #### 2 4331-1, 89605-8, 3016-3 #### [facility] CLIA [id number] [address] [place] [address] [place] Glucose [Mass/Vol] 77 mg/dL Normal 74-99 [facility] Comment on above: Order Comment: Gopi rhodes Type: BLOOD SPECIMEN Ordering Facility: [facility] Address: [address] [place] [address] Result Comment: The [place] Diabetes Association (ADA) provides guidance for cutoff values for fasting glucose and random glucose. The ADA defines fasting as no caloric intake for at least 8 hours. Fasting plasma glucose results between 100 to 125 mg/dL indicate increased risk for diabetes (prediabetes). Fasting plasma glucose results greater than or equal to 126 mg/dL meet the criteria for diagnosis of diabetes. In the absence of unequivocal hyperglycemia, results should be confirmed by repeat testing. In a patient with classic symptoms of hyperglycemia or hyperglycemic crisis, random plasma glucose results greater than or equal to 200 mg/dL meet the criteria for diagnosis of diabetes. Reference: Standards of Medical Care in Diabetes 2016, [place] Diabetes Association. Diabetes Care. 2016.39(Suppl 1). Performed By: #### 2 4331-1, 51391-5, 3016-3 #### [facility] CLIA [id number] [address] [place] [address] [place] Potassium [Moles/Vol] 3.8 mmol/L Normal 3.7-5.1 [facility] Comment on above: Order Comment: Gopi rhodes Type: BLOOD SPECIMEN Ordering Facility: [facility] Address: [address] [place] [address] Performed By: #### 2 4331-1, 22943-3, 6-3 #### [facility] CLIA [id number] [address] [place] Protein [Mass/Vol] 7.7 g/dL Normal 6.3-8.0 [facility] Comment on above: Order Comment: Speci men Type: BLOOD SPECIMEN Ordering Facility: [facility] Address: [address] [place] [address] Performed By: #### 2 4331-1, 32325-1, 3015-3 #### [facility] CLIA [id number] [address] [place] [address] [place] Sodium [Moles/Vol] 143 mmol/L Normal 136-144 [facility] Comment on above: Order Comment: Kristinei men Type: BLOOD SPECIMEN Ordering Facility: [facility] Address: [address] [place] [address] Performed By: #### 2 4331-1, 64677-6, 3 #### [facility] CLIA [id number] [address] [place] [address] [place] Urea nitrogen [Mass/Vol] 24 mg/dL Normal 9-24 [facility] Comment on above: Order Comment: Kristinei men Type: BLOOD SPECIMEN Ordering Facility: [facility] Address: [address] [place] [address] Performed By: #### 2 4331-1, 20413-0, 6-3 #### [facility] CLIA [id number] [address] [place] HbA1c (Bld)on 04-24-2023 Average glucose Estimated from glycated hemoglobin (Bld) [Mass/Vol] 128 mg/dL Normal [facility] Comment on above: Order Comment: Kristinei men Type: TISSUE SPECIMEN Ordering Facility: [facility] Address: [address] [place] [address] Result Comment: eAG: (Estimated average glucose) is a calculated value from HgbA1c and is health and safety representative of the average blood glucose level in the last 2-3 month period. Performed By: #### S #### [facility] CLIA [id number] [address] [place] [place] [address] [place] [facility] CLIA [id number] [address] [place] [address] [place] #### [id number] #### [facility] CLIA [id number] [address] [place] [address] [place] HbA1c (Bld) [Mass fraction] 6.1 % High 4.3-5.6 [facility] Comment on above: Order Comment: Speci men Type: TISSUE SPECIMEN [facility] [facility] Address: [address] [place] [address] Result Comment: Amer [place] Diabetes Association guidelines indicate that patients with HgbA1c in the range 5.7-6.4% are at increased risk for development of diabetes, and intervention by lifestyle modification may be beneficial. HgbA1c greater or equal to 6.5% is considered diagnostic of diabetes. Performed By: #### S #### [facility] CLIA [id number] [address] [place] [address] [place] [facility] CLIA [id number] [address] [place] [address] [place] #### [id number] #### [facility] CLIA [id number] [address] [place], [place] [id number] [place] Lipid 1996 panelon 3 Cholesterol [Mass/Vol] 189 mg/dL Normal <200 [facility] Comment on above: Order Comment: Speci men Type: BLOOD SPECIMEN Ordering Facility: [facility] Address: [address] [id number] Result Comment: <200 mg/dL, Desirable 200-239 mg/dL, Borderline high >239 mg/dL, High Performed By: #### 2 4331-1, 31615-0, 3016-3 #### [facility] CLIA [id number] [address] [place] [address] [place] Cholesterol in HDL [Mass/Vol] 39 mg/dL Low >39 [facility] Comment on above: Order Comment: Gopi meagan Type: BLOOD SPECIMEN Ordering Facility: [facility] Address: [address] [place] [address] Result Comment: 40-5 9 mg/dL, Acceptable >59 mg/dL, High: Negative risk factor for coronary heart disease <40 mg/dL, Low: Positive risk factor for coronary heart disease Performed By: #### 2 4331-1, 28164-7, 3016-3 #### [facility] CLIA [id number] [address] [place] [address] [place] Cholesterol in LDL [Mass/Vol] 112 mg/dL High <100 [facility] Comment on above: Order Comment: Kristinecrys rhodes Type: BLOOD SPECIMEN Ordering Facility: [facility] Address: [address] [place] [address] Result Comment: <100 mg/dL, Optimal 100-129 mg/dL, Near optimal/above optimal 130-159 mg/dL, Borderline high 160-189 mg/dL, High >189 mg/dL, Very high Secondary prevention optimal LDL Cholesterol levels are recommended to be < 70 mg/dL Performed By: #### 2 4331-1, 19734-4, 6-3 #### [facility] CLIA [id number] [address] [place] [address] [place] [facility] Cholesterol in LDL/Cholesterol in HDL [Mass ratio] 2.87 {ratio} High <2.54 [facility] Comment on above: Order Comment: Gopi rhodes Type: BLOOD SPECIMEN Ordering Facility: [facility] Address: [address] [place] [address] Result Comment: Ai lange: 1. National Cholesterol Education Program ATP III Guideline At-A-Glance Quick Desk Reference: National Heart, Lung, and Blood [place]. National Institutes of Health. 2001: NIH Publication No. 01-3305. 2. An International Atherosclerosis Society position paper: global recommendations for the management of dyslipidemia: executive summary, Atherosclerosis. 2014: 232(2):410-413. Performed By: #### 2 4331-1, 72603-0, 3016-3 #### [facility] CLIA [id number] [address] [id number] [place] Cholesterol in VLDL [Mass/Vol] 38 mg/dL High <30 [facility] Comment on above: Order Comment: Speci men Type: BLOOD SPECIMEN Ordering Facility: [facility] Address: [address] [place] [address] Performed By: #### 2 4331-1, 58533-6, 3 #### [facility] CLIA [id number] [address] [place] [address] [place] Cholesterol non HDL [Mass/Vol] 150 mg/dL High <130 [facility] Comment on above: Order Comment: Speci men Type: BLOOD SPECIMEN Ordering Facility: [facility] Address: [address] [place] [address] Result Comment: <130 mg/dL, Optimal 130-159 mg/dL, Near optimal/above optimal 160-189 mg/dL, Borderline high 190-219 mg/dL, High >219 mg/dL, Very high Secondary prevention optimal non HDL Cholesterol levels are recommended to be <100 mg/dL Performed By: #### 2 4331-1, 88946-7, 3015-07 #### [facility] CLIA [id number] [address] [place] [address] [place] Cholesterol.total/Chol esterol in HDL [Mass ratio] 4.85 {ratio} Normal <5.10 [facility] Comment on above: Order Comment: Speci men Type: BLOOD SPECIMEN Ordering Facility: [facility] Address: [address] [place] [address] Performed By: #### 2 4331-1, , 3 #### [facility] CLIA [id number] [address] [place] [address] [place] [facility] OF [place] FASTING TIME 12 hrs Normal [facility] Comment on above: Order Comment: Speci men Type: BLOOD SPECIMEN Ordering Facility: [facility] Address: [address] [place] [address] Performed By: #### 2 4331-1, , 3 #### [facility] CLIA [id number] [address] [place] [address] [place] [facility] [place] Triglyceride [Mass/Vol] 190 mg/dL High <150 [facility] Comment on above: Order Comment: Speci men Type: BLOOD SPECIMEN Ordering Facility: [facility] Address: [address] [place], [place] [id number] Result Comment: <150 mg/dL, Normal 150-199 mg/dL, Borderline high 200-499 mg/dL, High >499 mg/dL, Very high Performed By: #### 2 4331-1, 53534-9, 3016-3 #### [facility] CLIA [id number] [address] [place] [address] [place] TSH SerPl-aCncon 04-24-2023 TSH Qn 4.730 m[IU]/L High 0.270-4.20 0 [facility] Comment on above: Order Comment: Speci men Type: BLOOD SPECIMEN Ordering Facility: [facility] Address: [address] [place] [address] Performed By: #### 2 4331-1, 46318-3, 3016-3 #### [facility] CLIA [id number] [address] OF [facility] Anaerobic cultureOrdered By: Mario Yun on 01-11-2023 Bacteria identified Anaer cx Nom (Unsp spec) No anaerobic bacteria isolated. [facility] Bacteria identified Cx Nom ( Wound)Ordered By: Mario Yun on 01-11-2023 Wound Culture Enterobacter cloacae complex [facility] Wound Culture Proteus mirabilis [facility] Wound Culture Staphylococcus aureus [facility] Wound Culture Enterococcus faecalis [facility] Gram stain for investigation of transfusion reactionOrdered By: Mario Yun on 01-11-2023 Microscopic observation Gram stain Nom (Unsp spec) [facility] Anaerobic cultureOrdered By: Mario Yun on 01-10-2023 Bacteria identified Anaer cx Nom (Unsp spec) No anaerobic bacteria isolated. [facility] Bacteria identified Cx Nom ( Wound)Ordered By: Mario Yun on 01-10-2023 Wound Culture Enterobacter cloacae complex [facility] Wound Culture Proteus mirabilis [facility] Wound Culture Staphylococcus aureus [facility] Wound Culture Enterococcus faecalis [facility] Gram stain for investigation of transfusion reactionOrdered By: Mario Yun on 01-10-2023 Microscopic observation Gram stain Nom (Unsp spec) [facility] Glucose Glucometer (BldC) [M ass/Vol]Ordered By: Mario Yun on 12-21-2022 Glucose [Mass/Vol] 221 mg/dL 74-106 [facility] Comment on above: MANAGEMENT OF PATIEN T CARE PER NURSING PROTOCOL Absolute lymphocyte countOrd ered By: Anita Zhang on 12-10-2022 Lymphocytes Auto (Unsp spec) [#/Vol] 2.87 10*3/uL 0.83-4.51 [facility] Basophil percentageOrdered B y: Anita Zhang on 12-10-2022 Basophils/100 WBC (Bld) 0.8 % 0-1 [facility] Bilirubin [Mass/Vol] 0.40 mg/dL 0.20-1.00 [facility] Comment on above: For patients on eltr ombopag therapy, use of Dimension Elmer TBIL is not recommended. Chloride [Moles/Vol] 111 mmol/L 98-107 [facility] Eosinophils/100 WBC (Bld) 1.7 % 0-5 [facility] Glucose [Mass/Vol] 102 mg/dL 74-106 [facility] Comment on above: Fasting Glucose resu lt from 100 to 125 mg/dL suggests IMPAIRED HOMEOSTASIS per A.D.A. criteria. Neutrophils (Bld) [#/Vol] 5.3 10*3/uL 2.0-7.7 [facility] Neutrophils/100 WBC (Bld) 57.1 % 47-70 [facility] Potassium [Moles/Vol] 3.9 mmol/L 3.5-5.1 [facility] Protein [Mass/Vol] 7.9 g/dL 6.4-8.2 [facility] Sodium [Moles/Vol] 141 mmol/L 136-145 [facility] WBC (Bld) [#/Vol] 9.3 10*3/uL 4.4-11.0 [facility] Blood erythrocytes count (nu mber/volume)Ordered By: Anita Zhang on 12-10-2022 RBC (Bld) [#/Vol] 4.94 10*6/uL 4.6-6.2 [facility] Blood hemoglobin measurement (mass/volume)Ordered By: Anita Zhang on 12-10-2022 Hemoglobin (Bld) [Mass/Vol] 14.8 g/dL 13.0-16.5 [facility] Blood lymphocytes/100 leukoc ytesOrdered By: Anita Zhang on 12-10-2022 Lymphocytes/100 WBC (Bld) 30.8 % 19-41 [facility] Blood monocytes/100 leukocyt esOrdered By: Anita Zhang on 12-10-2022 Monocytes/100 WBC (Bld) 9.1 % 0-10 [facility] Blood platelet mean volumeOr dered By: Anita Zhang on 12-10-2022 Platelet mean volume (Bld) [Entitic vol] 10.8 fL 6.2-12.0 [facility] Determination of erythrocyte mean corpuscular volume (MCV)Ordered By: Anita Zhang on 12-10-2022 MCV (RBC) [Entitic vol] 86.2 fL 80-94 [facility] Hematocrit Auto (Bld) [Volum e fraction]Ordered By: Anita Zhang on 12-10-2022 Hematocrit (Bld) [Volume fraction] 42.6 % 40-54 [facility] Laboratory - Chemistry and C hemistry - challengeOrdered By: Anita Zhang on 12-10-2022 ALP [Catalytic activity/Vol] 66 U/L 45-117 [facility] ALT [Catalytic activity/Vol] 31 U/L 16-61 [facility] CO2 [Moles/Vol] 27.0 mmol/L 21.0-32.0 [facility] Globulin (S) [Mass/Vol] 4.1 g/dL 2.2-4.2 [facility] Urea nitrogen/Creatinine [Mass ratio] 13.9 mg/mg 10-20 [facility] - Hematology and Cell countsOrdered By: Anita Zhang on 12-10-2022 Erythrocyte distribution width (RBC) [Entitic vol] 40.4 fL 35.1-43.9 [facility] Erythrocyte distribution width (RBC) [Ratio] 13.1 % 11.6-14.6 [facility] Immature granulocytes/100 WBC (Bld) 0.500 % 0.0-0.9 [facility] Comment on above: IG% - Immature Granu locytes (promyelocytes, myelocytes and metamyelocytes) > 1% indicates that a LEFT SHIFT is Present. MCH (RBC) [Entitic mass] 30.0 pg 27.0-32.0 [facility] Nucleated RBC/100 WBC (Bld) [Ratio] 0 % 0-5 [facility] MCHC Auto (RBC) [Mass/Vol]Or dered By: Anita Zhang on 12-10-2022 MCHC (RBC) [Mass/Vol] 34.7 g/dL 32-36 [facility] No Panel InformationOrdered By: Anita Zhang on 12-10-2022 Estimated GFR (MDRD) Amer 77 mL/min >60 [facility] Comment on above: GFR Calc Estimated GFR (MDRD) Non-Af Amer 64 mL/min >60 [facility] Comment on above: Non- GFR Calc Platelets bldOrdered By: Anita Zhang on 12-10-2022 Platelets (Bld) [#/Vol] 211 10*3/uL 150-450 [facility] Serum or plasma albumin camelia urement (mass/volume)Ordered By: Anita Zhang on 12-10-2022 Albumin [Mass/Vol] 3.8 g/dL 3.2-5.0 [facility] Serum or plasma albumin/glob ulin mass ratioOrdered By: Anita Zhang on 12-10-2022 Albumin/Globulin [Mass ratio] 0.9 {ratio} 0.9-2.4 [facility] Serum or plasma calcium camelia urement (mass/volume)Ordered By: Anita Zhang on 12-10-2022 Calcium [Mass/Vol] 9.3 mg/dL 8.5-10.1 [facility] Serum or plasma creatinine m easurement (mass/volume)Ordered By: Anita Zhang on 12-10-2022 Creatinine [Mass/Vol] 1.22 mg/dL 0.70-1.30 [facility] Comment on above: The validity of the calculated GFR & GFRAA in patients over 70 years has not been determined. Clinical correlation is essential. Serum or plasma urea nitroge n measurement (mass/volume)Ordered By: Anita Zhang on 12-10-2022 Urea nitrogen [Mass/Vol] 17 mg/dL 7-18 [facility] Thin prep Papanicolaou smear with manual screeningOrdered By: Anita Zhang on 12-10-2022 Thin prep Papanicolaou smear with manual screening 25 U/L 15-37 [facility] Thin prep Papanicolaou smear with manual screening 3 5-15 [facility] HEMOGLOBIN A1C (POC)on 08-24 HbA1c (Bld) [Mass fraction] 7.0 % Abnormal 4.2 - 5.6 % [facility] Bacteria identified Cx Nom ( Wound)Ordered By: Dr. Yun on 08-18-2022 Wound Culture Proteus mirabilis [facility] Wound Culture Staphylococcus aureus [facility] Gram stain for investigation of transfusion reactionOrdered By: Dr. Yun on 08-15-2022 Microscopic observation Gram stain Nom (Unsp spec) [facility] Anaerobic cultureOrdered By: Dr. Yun on 06-04-2022 Bacteria identified Anaer cx Nom (Unsp spec) No growth in 5 days. [facility] Routine wound cultureOrdered By: Dr. Yun on 06-03-2022 Bacteria identified Cx Nom (Wound) No growth aerobically. [facility] Glucose Glucometer (dC) [M ass/Vol]Ordered By: Dr. Yun on 06-01-2022 Glucose [Mass/Vol] 252 mg/dL 74-106 [facility] Comment on above: MANAGEMENT OF PATIEN T CARE PER NURSING PROTOCOL Gram stain for investigation of transfusion reactionOrdered By: Dr. Yun on 06-01-2022 Microscopic observation Gram stain Nom (Unsp spec) [facility] HEMOGLOBIN A1C (POC)on 05-25 HbA1c (Bld) [Mass fraction] 8.9 % Abnormal 4.2 - 5.6 % [facility] Absolute lymphocyte countOrd ered By: Dr. Zhang on 05-21-2022 Lymphocytes Auto (Unsp spec) [#/Vol] 2.29 10*3/uL 0.83-4.51 [facility] Basophil percentageOrdered B y: Dr. Zhang on 05-21-2022 Basophils/100 WBC (Bld) 0.8 % 0-1 [facility] Bilirubin [Mass/Vol] 0.50 mg/dL 0.20-1.00 [facility] Comment on above: For patients on eltr ombopag therapy, use of Dimension Elmer TBIL is not recommended. Chloride [Moles/Vol] 104 mmol/L 98-107 [facility] Eosinophils/100 WBC (Bld) 2.6 % 0-5 [facility] Glucose [Mass/Vol] 157 mg/dL 74-106 [facility] Comment on above: Fasting Glucose resu lt greater than or equal to 126 mg/dL suggests DIABETES MELLITUS per A.D.A. criteria. Neutrophils (Bld) [#/Vol] 5.0 10*3/uL 2.0-7.7 [facility] Neutrophils/100 WBC (Bld) 59.5 % 47-70 [facility] Potassium [Moles/Vol] 3.8 mmol/L 3.5-5.1 [facility] Protein [Mass/Vol] 7.8 g/dL 6.4-8.2 [facility] Sodium [Moles/Vol] 141 mmol/L 136-145 [facility] WBC (Bld) [#/Vol] 8.4 10*3/uL 4.4-11.0 [facility] Blood erythrocytes count (nu mber/volume)Ordered By: Dr. Zhang on 05-21-2022 RBC (Bld) [#/Vol] 5.34 10*6/uL 4.6-6.2 [facility] Blood hemoglobin measurement (mass/volume)Ordered By: Dr. Zhang on 05-21-2022 Hemoglobin (Bld) [Mass/Vol] 16.0 g/dL 13.0-16.5 [facility] Blood lymphocytes/100 leukoc ytesOrdered By: Dr. Zhang on 05-21-2022 Lymphocytes/100 WBC (Bld) 27.3 % 19-41 [facility] Blood monocytes/100 leukocyt esOrdered By: Dr. Zhang on 05-21-2022 Monocytes/100 WBC (Bld) 9.4 % 0-10 [facility] Blood platelet mean volumeOr dered By: Dr. Zhang on 05-21-2022 Platelet mean volume (Bld) [Entitic vol] 11.8 fL 6.2-12.0 [facility] Determination of erythrocyte mean corpuscular volume (MCV)Ordered By: Dr. Zhang on 05-21-2022 MCV (RBC) [Entitic vol] 88.2 fL 80-94 [facility] Hematocrit Auto (Bld) [Volum e fraction]Ordered By: Dr. Zhang on 05-21-2022 Hematocrit (Bld) [Volume fraction] 47.1 % 40-54 [facility] Laboratory - Chemistry and C hemistry - challengeOrdered By: Dr. Zhang on 05-21-2022 ALP [Catalytic activity/Vol] 67 U/L 45-117 [facility] ALT [Catalytic activity/Vol] 41 U/L 16-61 [facility] CO2 [Moles/Vol] 25.0 mmol/L 21.0-32.0 [facility] Globulin (S) [Mass/Vol] 3.7 g/dL 2.2-4.2 [facility] Urea nitrogen/Creatinine [Mass ratio] 12.2 mg/mg 10-20 [facility] Laboratory - Hematology and Cell countsOrdered By: Dr. Zhang on 05-21-2022 Erythrocyte distribution width (RBC) [Entitic vol] 42.7 fL 35.1-43.9 [facility] Erythrocyte distribution width (RBC) [Ratio] 13.2 % 11.6-14.6 [facility] Immature granulocytes/100 WBC (Bld) 0.400 % 0.0-0.9 [facility] Comment on above: IG% - Immature Granu locytes (promyelocytes, myelocytes and metamyelocytes) > 1% indicates that a LEFT SHIFT is Present. MCH (RBC) [Entitic mass] 30.0 pg 27.0-32.0 [facility] Nucleated RBC/100 WBC (Bld) [Ratio] 0 % 0-5 [facility] MCHC Auto (RBC) [Mass/Vol]Or dered By: Dr. Zhang on 05-21-2022 MCHC (RBC) [Mass/Vol] 34.0 g/dL 32-36 [facility] No Panel InformationOrdered By: Dr. Zhang on 05-21-2022 Estimated GFR (MDRD) Amer 83 mL/min >60 [facility] Comment on above: GFR Calc Estimated GFR (MDRD) Non-Af Amer 69 mL/min >60 [facility] Comment on above: Non- GFR Calc Platelets bldOrdered By: Dr. Zhang on 05-21-2022 Platelets (Bld) [#/Vol] 168 10*3/uL 150-450 [facility] Serum or plasma albumin camelia urement (mass/volume)Ordered By: Dr. Zhang on 05-21-2022 Albumin [Mass/Vol] 4.1 g/dL 3.2-5.0 [facility] Serum or plasma albumin/glob ulin mass ratioOrdered By: Dr. Zhang on 05-21-2022 Albumin/Globulin [Mass ratio] 1.1 {ratio} 0.9-2.4 [facility] Serum or plasma calcium camelia urement (mass/volume)Ordered By: Dr. Zhang on 05-21-2022 Calcium [Mass/Vol] 9.7 mg/dL 8.5-10.1 [facility] Serum or plasma creatinine m easurement (mass/volume)Ordered By: Dr. Zhang on 05-21-2022 Creatinine [Mass/Vol] 1.15 mg/dL 0.70-1.30 [facility] Comment on above: The validity of the calculated GFR & GFRAA in patients over 70 years has not been determined. Clinical correlation is essential. Serum or plasma urea nitroge n measurement (mass/volume)Ordered By: Dr. Zhang on 05-21-2022 Urea nitrogen [Mass/Vol] 14 mg/dL 7-18 [facility] Thin prep Papanicolaou smear with manual screeningOrdered By: Dr. Zhang on 05-21-2022 Thin prep Papanicolaou smear with manual screening 24 U/L 15-37 [facility] Thin prep Papanicolaou smear with manual screening 12 5-15 [facility] Whole blood hemoglobin A1c/t otal hemoglobin ratio (mass fraction)Ordered By: Dr. Yun on 04-03-2022 HbA1c (Bld) [Mass fraction] 8.8 % 3.8-5.6 [facility] Comment on above: Normal < 5.7 % Predi abetic 5.7 - 6.4 % Diabetic >or= 6.5 % Please note range changes. Glucose Glucometer (BldC) [M ass/Vol]on 01-10-2022 Glucose [Mass/Vol] 160 mg/dL 74-106 [facility] Work Phone: Comment on above: MANAGEMENT OF PATIEN T CARE PER NURSING PROTOCOL HEMOGLOBIN A1C (POC)on 11-14 HbA1c (Bld) [Mass fraction] 9.1 % Abnormal 4.2 - 5.6 % [facility] Whole blood hemoglobin A1c/t otal hemoglobin ratio (mass fraction)on 09-19-2021 HbA1c (Bld) [Mass fraction] 8.9 % 3.8-5.6 [facility] Work Phone: Comment on above: Normal < 5.7 % Predi abetic 5.7 - 6.4 % Diabetic >or= 6.5 % Please note range changes. CR Foot Complete 3+ Views [place] 10-07-2020 CR Foot Complete 3+ Views Left Patient Name: ISA MAYEN Diagnostic Radiology ACCESSION EXAM DATE/TIME PROCEDURE ORDERING PROVIDER [id number] 10/07/2020 11:39 EDT CR Foot Complete 3+ MD EARNEST, MEREDITH L Views Left CPT code 93505 Reason For Exam (CR Foot Complete 3+ Views Left) pain, infected great toe Report LEFT FOOT, 3 VIEWS: INDICATION: Infection great toe, pain COMPARISON: No previous studies are available for comparison. Frontal, oblique and lateral views of the left foot were obtained. The bone density is within normal limits. No fracture or dislocation is noted. The joint spaces are within normal limits. There is soft tissue swelling of the great toe. Scattered vascular calcifications are seen in relation to the foot. IMPRESSION: Soft tissue swelling of the great toe. No acute osseous abnormalities. Report Dictated on Final Dictating Physician: DO MONTANO ALFRED Signed Date and Time: 10/07/2020 12:02 pm Signed by: DO MONTANO ALFRED Transcribed Date and Time: 10/07/2020 12:03 Normal [facility] Comp Metabolic Panelon 10-07 ALP [Catalytic activity/Vol] 77 U/L Normal 38-126 [facility] Comment on above: Performed By: #### H EMDF, CMP3, LACT3 #### [facility] [address] [place] [address] ALT [Catalytic activity/Vol] 34 U/L Normal 0-49 [facility] Comment on above: Result Comment: The ALT test is performed by an updated assay method. Please note that the reference intervals have been changed and are now sex specific. Performed By: #### H EMDF, CMP3, LACT3 #### [facility] [address] [place] [address] AST [Catalytic activity/Vol] 56 U/L High 15-46 [facility] Comment on above: Result Comment: Slig htly hemolysed, interpret with caution. Performed By: #### H EMDF, CMP3, LACT3 #### [facility] [address] [place] [address] Calcium [Mass/Vol] 9.9 mg/dL Normal 8.4-10.4 [facility] Comment on above: Performed By: #### H EMDF, CMP3, LACT3 #### [facility] [address] [place] [address] Glucose [Mass/Vol] 285 mg/dL High 70-100 [facility] Comment on above: Performed By: #### H EMDF, CMP3, LACT3 #### [facility] [address] [place] [address] Protein [Mass/Vol] 8.8 g/dL High 6.3-8.2 [facility] Comment on above: Performed By: #### H EMDF, CMP3, LACT3 #### [facility] [address] [place] [address] Urea nitrogen [Mass/Vol] 22 mg/dL High 7-20 [facility] Comment on above: Performed By: #### H EMDF, CMP3, LACT3 #### [facility] [address] [place] [address] Anion gap [Moles/Vol] 11 mmol/L Normal 3-13 [facility] Comment on above: Performed By: #### H EMDF, CMP3, LACT3 #### [facility] [address] [place] [address] Bilirubin [Mass/Vol] 0.9 mg/dL Normal 0.2-1.3 [facility] Comment on above: Performed By: #### H EMDF, CMP3, LACT3 #### [facility] [address] [place] [address] CO2 [Moles/Vol] 26 mmol/L Normal 22-30 [facility] Comment on above: Performed By: #### H EMDF, CMP3, LACT3 #### [facility] [address] [place] [address] Creatinine [Mass/Vol] 1.16 mg/dL Normal 0.52-1.25 [facility] Comment on above: Performed By: #### H EMDF, CMP3, LACT3 #### [facility] [address] [place] [address] GFR/1.73 sq M.predicted among blacks MDRD (S/P/Bld) [Vol rate/Area] 78.9 mL/min/{1.73_m2} Normal >60 [facility] Comment on above: Performed By: #### H EMDF, CMP3, LACT3 #### [facility] [address] [place] [address] GFR/1.73 sq M.predicted among non-blacks MDRD (S/P/Bld) [Vol rate/Area] 68.0 mL/min/{1.73_m2} Normal >60 [facility] Comment on above: Result Comment: KDIG O guidelines provide the following GFR categories: Stage GFR(ml/min/1.73 m2) Terms G1 >=90 Normal or high G2 60-89 Mildly decreased* G3a 45-59 Mildly to moderately decreased G3b 30-44 Moderately to severely decreased G4 15-29 Severely decreased G5 <15 Kidney failure *Relative to young adult level. In the absence of evidence of kidney damage, neither GFR category G1 nor G2 fulfill the criteria for CKD. The CKD-EPI equation is validated in individuals 18 years of age and older. Currently the best equation for estimating glomerular filtration rate (GFR) from serum creatinine in children is the Bedside Owusu equation. It is less accurate in patients with extremes of muscle mass, restriction of dietary protein, ingestion of creatine, extra-renal metabolism of creatinine, or treatment with medications that affect renal tubular creatinine secretion. Performed By: #### H EMDF, CMP3, LACT3 #### [facility] [address] [place] [address] Potassium [Moles/Vol] 4.4 mmol/L Normal 3.5-5.1 [facility] Comment on above: Result Comment: Slig htly hemolysed, interpret with caution. Performed By: #### H EMDF, CMP3, LACT3 #### [facility] [address] [place] [address] Sodium [Moles/Vol] 135 mmol/L Normal 135-145 [facility] Comment on above: Performed By: #### H EMDF, CMP3, LACT3 #### [facility] [address] [place] [address] Albumin [Mass/Vol] 4.7 g/dL Normal 3.5-5.0 [facility] Comment on above: Performed By: #### H EMDF, CMP3, LACT3 #### [facility] [address] [place] [address] Chloride [Moles/Vol] 98 mmol/L Normal 98-107 [facility] Comment on above: Performed By: #### H EMDF, CMP3, LACT3 #### [facility] [address] [place] [address] Comprehensive Metabolic Pane lOrdered By: Meredith Tinoco on 10-07-2020 Albumin [Mass/Vol] 4.7 g/dL 3.5 - 5.0 g/dL [facility] Work Phone: ALP (Bld) [Catalytic activity/Vol] 77 U/L 38 - 126 U/L [facility] Work Phone: ALT [Catalytic activity/Vol] 34 U/L 0 - 49 U/L [facility] Work Phone: Comment on above: The ALT test is perf ormed by an updated assay method. Please note that the reference intervals have been changed and are now sex specific. Anion gap [Moles/Vol] 11 mmol/L 3 - 13 mmol/L [facility] Work Phone: AST [Catalytic activity/Vol] 56 U/L High 15 - 46 U/L [facility] Work Phone: Comment on above: Slightly hemolysed, interpret with caution. Bilirubin [Mass/Vol] 0.9 mg/dL 0.2 - 1 .3 mg/dL [facility] Work Phone: Calcium [Mass/Vol] 9.9 mg/dL 8.4 - 10. 4 mg/dL [facility] Work Phone: Chloride [Moles/Vol] 98 mmol/L 98 - 10 7 mmol/L [facility] Work Phone: CO2 [Moles/Vol] 26 mmol/L 22 - 30 mmol/L [facility] Work Phone: Creatinine [Mass/Vol] 1.16 mg/dL 0.52 - 1.25 mg/dL [facility] Work Phone: EGFR IF NonAfrican Mauritian 68.0 mL/min >60 [facility] Work Phone: Comment on above: KDIGO guidelines pro vide the following GFR categories: Stage GFR(ml/min/1.73 m2) Terms G1 >=90 Normal or high G2 60-89 Mildly decreased* G3a 45-59 Mildly to moderately decreased G3b 30-44 Moderately to severely decreased G4 15-29 Severely decreased G5 <15 Kidney failure *Relative to young adult level. In the absence of evidence of kidney damage, neither GFR category G1 nor G2 fulfill the criteria for CKD. The CKD-EPI equation is validated in individuals 18 years of age and older. Currently the best equation for estimating glomerular filtration rate (GFR) from serum creatinine in children is the Bedside Owusu equation. It is less accurate in patients with extremes of muscle mass, restriction of dietary protein, ingestion of creatine, extra-renal metabolism of creatinine, or treatment with medications that affect renal tubular creatinine secretion. Free PSA/Total PSA [Mass fraction] 8.8 g/dL High 6.3 - 8.2 g/dL [facility] Work Phone: GFR/1.73 sq M.predicted among blacks MDRD (S/P/Bld) [Vol rate/Area] 78.9 mL/min/{1.73_m2} >60 [facility] Work Phone: [phone] Glucose [Mass/Vol] 285 mg/dL High 70 - 100 mg/dL [facility] Work Phone: [phone] Interpretation and review of laboratory results Abnormal [facility] Work Phone: [phone] Potassium [Moles/Vol] 4.4 mmol/L 3.5 - 5.1 mmol/L [facility] Work Phone: [phone] Comment on above: Slightly hemolysed, interpret with caution. Sodium [Moles/Vol] 135 mmol/L 135 - 145 mmol/L [facility] Work Phone: [phone] Urea nitrogen (BldV) [Mass/Vol] 22 mg/dL High 7 - 20 mg/dL [facility] Work Phone: [phone] Test Performed by [facility], [address] [place] [address] [place] [address] [facility] Work Phone: [phone] [facility] Work Phone: [phone] Hemogram (CBC) w/Auto DiffOr dered By: Meredith Tinoco on 10-07-2020 Absolute Baso # 0.1 10*3/uL 0.0 - 0.2 10*3/uL [facility] Work Phone: [phone] Absolute Neut # 5.8 10*3/uL 1.8 - 7.0 10*3/uL [facility] Work Phone: [phone] Basophils/100 WBC (Bld) 0.8 % 0.0 - 2.0 % [facility] Work Phone: [phone] Eosinophils (Bld) [#/Vol] 0.3 10*3/uL 0.0 - 0.5 10*3/uL [facility] Work Phone: [phone] Eosinophils/100 WBC (Bld) 2.9 % 1.0 - 6.0 % [facility] Work Phone: [phone] Granulocytes/100 WBC (Bld) 56.3 % 40.0 - 80.0 % [facility] Work Phone: [phone] Hematocrit (Bld) [Volume fraction] 46.2 % 40.0 - 52.0 % [facility] Work Phone: [phone] Hemoglobin.gastrointes tinal spec 1 Ql (Stl) 15.8 g/dL 13.0 - 18.0 g/dL [facility] Work Phone: [phone] Interpretation and review of laboratory results Abnormal ? Work Phone: [phone] Lymphocytes (Bld) [#/Vol] 2.8 10*3/uL 1.0 - 4.3 10*3/uL [facility] Work Phone: [phone] Lymphocytes/100 WBC (Bld) 27.6 % 20.0 - 40.0 % [facility] Work Phone: [phone] MCH (RBC) [Entitic mass] 30.1 pg 26.0 - 34.0 pg [facility] Work Phone: [phone] MCHC (RBC) [Mass/Vol] 34.2 % 32.0 - 36.0 % ? Work Phone: [phone] MCV (RBC) [Entitic vol] 88.0 fL 80.0 - 98.0 fL [facility] Work Phone: [phone] Monocytes (Bld) [#/Vol] 1.3 10*3/uL High 0.0 - 0.8 10*3/uL [facility] Work Phone: [phone] Monocytes/100 WBC (Bld) 12.4 % High 2.0 - 10.0 % [facility] Work Phone: [phone] Platelet distribution width (Bld) [Ratio] 13.7 % 11.5 - 14.5 % ? Work Phone: [phone] Platelet mean volume (Bld) [Entitic vol] 8.4 fL 7.4 - 10.4 fL [facility] Work Phone: [phone] Platelets (Bld) [#/Vol] 233 10*3/uL 140 - 440 10*3/uL [facility] Work Phone: [phone] RBC (Bld) [#/Vol] 5.24 10*6/uL 4.40 - 5.90 10*6/uL [facility] Work Phone: [phone] WBC (Bld) [#/Vol] 10.3 10*3/uL 3.6 - 10.7 10*3/uL [facility] Work Phone: Test Performed by [facility], [address] , [place], [place] [id number] [place] [address] Work Phone: [facility] Work Phone: Hemogram w/ Autodiffon 10-07 Abs Baso Cnt 0.1 10*3/uL Normal 0.0-0.2 [facility] Comment on above: Performed By: #### H EMDF, CMP3, LACT3 #### [facility] [address] [place] [address] Abs Neutrophile Cnt 5.8 10*3/uL Normal 1.8-7.0 [facility] Comment on above: Performed By: #### H EMDF, CMP3, LACT3 #### [facility] [address] [place] [address] Basophils/100 WBC (Bld) 0.8 % Normal 0.0-2.0 [facility] Comment on above: Performed By: #### H EMDF, CMP3, LACT3 #### [facility] [address] [place] [address] Eosinophils (Bld) [#/Vol] 0.3 10*3/uL Normal 0.0-0.5 [facility] Comment on above: Performed By: #### H EMDF, CMP3, LACT3 #### [facility] [address] [place] [address] Eosinophils/100 WBC (Bld) 2.9 % Normal 1.0-6.0 [facility] Comment on above: Performed By: #### H EMDF, CMP3, LACT3 #### [facility] [address] [place] [address] Erythrocyte distribution width (RBC) [Ratio] 13.7 % Normal 11.5-14.5 [facility] Comment on above: Performed By: #### H EMDF, CMP3, LACT3 #### [facility] [address] [place] [address] Granulocytes/100 WBC (Bld) 56.3 % Normal 40.0-80.0 [facility] Comment on above: Performed By: #### H EMDF, CMP3, LACT3 #### [facility] [address] [place] [address] Hematocrit (Bld) [Volume fraction] 46.2 % Normal 40.0-52.0 [facility] Comment on above: Performed By: #### H EMDF, CMP3, LACT3 #### [facility] [address] [place] [address] Hemoglobin (Bld) [Mass/Vol] 15.8 g/dL Normal 13.0-18.0 [facility] Comment on above: Performed By: #### H EMDF, CMP3, LACT3 #### [address] [place] [address] Lymphocytes (Bld) [#/Vol] 2.8 10*3/uL Normal 1.0-4.3 [facility] Comment on above: Performed By: #### H EMDF, CMP3, LACT3 #### [facility] [address] [place] [address] Lymphocytes/100 WBC (Bld) 27.6 % Normal 20.0-40.0 [facility] Comment on above: Performed By: #### H EMDF, CMP3, LACT3 #### [facility] [address] [place] [address] MCH (RBC) [Entitic mass] 30.1 pg Normal 26.0-34.0 [facility] Comment on above: Performed By: #### H EMDF, CMP3, LACT3 #### [facility] [address] [place] [address] MCHC 34.2 % Normal 32.0-36.0 [facility] Comment on above: Performed By: #### H EMDF, CMP3, LACT3 #### [facility] [address] [place] [address] MCV (RBC) [Entitic vol] 88.0 fL Normal 80.0-98.0 [facility] Comment on above: Performed By: #### H EMDF, CMP3, LACT3 #### [facility] [address] [place] [address] Monocytes (Bld) [#/Vol] 1.3 10*3/uL High 0.0-0.8 [facility] Comment on above: Performed By: #### H EMDF, CMP3, LACT3 #### [facility] [address] [place] [address] Monocytes/100 WBC (Bld) 12.4 % High 2.0-10.0 [facility] Comment on above: Performed By: #### H EMDF, CMP3, LACT3 #### [facility] [address] [place] [address] Platelet mean volume (Bld) [Entitic vol] 8.4 fL Normal 7.4-10.4 [facility] Comment on above: Performed By: #### H EMDF, CMP3, LACT3 #### [address] [place] [address] Platelets (Bld) [#/Vol] 233 10*3/uL Normal 140-440 [facility] Comment on above: Performed By: #### H EMDF, CMP3, LACT3 #### [facility] [address] [place] [address] RBC (Bld) [#/Vol] 5.24 10*6/uL Normal 4.40-5.90 [facility] Comment on above: Performed By: #### H EMDF, CMP3, LACT3 #### [facility] [address] [place] [address] WBC (Bld) [#/Vol] 10.3 10*3/uL Normal 3.6-10.7 [facility] Comment on above: Performed By: #### H EMDF, CMP3, LACT3 #### [facility] [address] [place] [address] Lactic Acidon 10-07-2020 Lactate [Moles/Vol] 1.6 mmol/L Normal 0.7-2.0 [facility] Comment on above: Performed By: #### H EMDF, CMP3, LACT3 #### [address] [place] [address] Lactic Acid, PlasmaOrdered B y: Meredith Earnest on 10-07-2020 Lactate [Moles/Vol] 1.6 mmol/L 0.7 - 2. 0 mmol/L [facility] Work Phone: Test Performed by [facility], [address] , [place], [place] [address] [facility] Work Phone: [facility] Work Phone: XR FOOT LEFT (MIN 3 VIEWS)Or dered By: Meredith Tinoco on 10-07-2020 Patient Name: ISA GERONIMO Diagnostic Radiology ACCESSION EXAM DATE/TIME PROCEDURE ORDERING PROVIDER [id number] 10/07/2020 11:39 EDT CR Foot Complete 3+ MD TINOCO DAVID L Views Left CPT code 46946 Reason For Exam (CR Foot Complete 3+ Views Left) pain, infected great toe Report LEFT FOOT, 3 VIEWS: INDICATION: Infection great toe, pain COMPARISON: No previous studies are available for comparison. Frontal, oblique and lateral views of the left foot were obtained. The bone density is within normal limits. No fracture or dislocation is noted. The joint spaces are within normal limits. There is soft tissue swelling of the great toe. Scattered vascular calcifications are seen in relation to the foot. IMPRESSION: Soft tissue swelling of the great toe. No acute osseous abnormalities. Report Dictated on --- Final --- Dictating Physician: DO MONTANO ALFRED Signed Date and Time: 10/07/2020 12:02 pm Signed by: DO MONTANO ALFRED Transcribed Date and Time: 10/07/2020 12:03 [facility] Work Phone: Chava, [facility] Incoming Radiology Results From [facility] - 10/07/2020 12:03 PM EDT Patient Name: ISA MAYEN Diagnostic Radiology ACCESSION EXAM DATE/TIME PROCEDURE ORDERING PROVIDER [id number] 10/07/2020 11:39 EDT CR Foot Complete 3+ MD EARNEST, MEREDITH L Views Left CPT code 29439 Reason For Exam (CR Foot Complete 3+ Views Left) pain, infected great toe Report LEFT FOOT, 3 VIEWS: INDICATION: Infection great toe, pain COMPARISON: No previous studies are available for comparison. Frontal, oblique and lateral views of the left foot were obtained. The bone density is within normal limits. No fracture or dislocation is noted. The joint spaces are within normal limits. There is soft tissue swelling of the great toe. Scattered vascular calcifications are seen in relation to the foot. IMPRESSION: Soft tissue swelling of the great toe. No acute osseous abnormalities. Report Dictated on --- Final --- Dictating Physician: DO MONTANO ALFRED Signed Date and Time: 10/07/2020 12:02 pm Signed by: DO MONTANO ALFRED Transcribed Date and Time: 10/07/2020 12:03 [facility] Work Phone: [facility] Work Phone: Comprehensive Metabolic Pane lOrdered By: Chalino [facility] on 05-08-2019 Albumin [Mass/Vol] 4.9 g/dL 3.5 - 5 g/dL [facility] Work Phone: ALP [Catalytic activity/Vol] 77 U/L 38 - 126 U/L [facility] Work Phone: ALT [Catalytic activity/Vol] 69 U/L 13 - 69 U/L [facility] Work Phone: Anion gap [Moles/Vol] 16 mmol/L [facility] Work Phone: AST [Catalytic activity/Vol] 61 U/L High 15 - 46 U/L [facility] Work Phone: Bilirubin [Mass/Vol] 0.6 mg/dL 0.2 - 1 .3 mg/dL [facility] Work Phone: Calcium [Mass/Vol] 10.0 mg/dL 8.4 - 10. 4 mg/dL [facility] Work Phone: Chloride [Moles/Vol] 103 mmol/L 98 - 10 7 mmol/L [facility] Work Phone: CO2 [Moles/Vol] 20 mmol/L Low 22 - 30 mmol/L [facility] Work Phone: [phone] Creatinine [Mass/Vol] 0.89 mg/dL 0.52 - 1.25 mg/dL [facility] Work Phone: [phone] EGFR IF NonAfrican Mauritian >60.0 >60 mL/min [facility] Work Phone: [phone] Comment on above: Source- MDRD equatio n with creatinine calibration to IDMS(NKDEP) eGFR not recommended for drug dose adjustment GFR/1.73 sq M.predicted among blacks MDRD (S/P/Bld) [Vol rate/Area] mL/min/{1.73_m2} >60 mL/min [facility] Work Phone: [phone] Glucose [Mass/Vol] 292 mg/dL High 70 - 100 mg/dL [facility] Work Phone: [phone] Interpretation and review of laboratory results Abnormal [facility] Work Phone: [phone] Potassium [Moles/Vol] 4.0 mmol/L 3.5 - 5.1 mmol/L [facility] Work Phone: [phone] Protein [Mass/Vol] 8.1 g/dL 6.3 - 8.2 g/dL [facility] Work Phone: [phone] Sodium [Moles/Vol] 139 mmol/L 135 - 145 mmol/L [facility] Work Phone: [phone] Urea nitrogen [Mass/Vol] 12 mg/dL 7 - 20 mg/dL [facility] Work Phone: [phone] Test Performed by [facility], [facility] [place] [address] [facility] Work Phone: Hemogram (CBC) w/Auto DiffOr dered By: Chalino Jackson on 05-08-2019 Absolute Baso # 0.1 10*3/uL 0 - 0.2 10*3/uL [facility] Work Phone: Absolute Neut # 6.8 10*3/uL 1.8 - 7 10*3/uL [facility] Work Phone: Basophils/100 WBC (Bld) 0.9 % 0 - 2 % [facility] Work Phone: Eosinophils (Bld) [#/Vol] 0.3 10*3/uL 0 - 0.5 10*3/uL [facility] Work Phone: [phone] Eosinophils/100 WBC (Bld) 2.8 % 1 - 6 % [facility] Work Phone: [phone] Erythrocyte distribution width (RBC) [Ratio] 14.1 % 11.5 - 14.5 % [facility] Work Phone: [phone] Granulocytes/100 WBC (Bld) 66.2 % 40 - 80 % [facility] Work Phone: [phone] Hematocrit (Bld) [Volume fraction] 48.2 % 40 - 52 % [facility] Work Phone: [phone] Hemoglobin (Bld) [Mass/Vol] 16.7 g/dL 13 - 18 g/dL [facility] Work Phone: [phone] Interpretation and review of laboratory results Abnormal [facility] Work Phone: [phone] Lymphocytes (Bld) [#/Vol] 2.2 10*3/uL 1 - 4.3 10*3/uL [facility] Work Phone: [phone] Lymphocytes/100 WBC (Bld) 21.8 % 20 - 40 % [facility] Work Phone: [phone] MCH (RBC) [Entitic mass] 30.0 pg 26 - 34 pg [facility] Work Phone: [phone] MCHC 34.6 % 32 - 36 % [facility] Work Phone: [phone] MCV (RBC) [Entitic vol] 86.7 fL 80 - 98 fL [facility] Work Phone: [phone] Monocytes (Bld) [#/Vol] 0.9 10*3/uL High 0 - 0.8 10*3/uL [facility] Work Phone: [phone] Monocytes/100 WBC (Bld) 8.3 % 2 - 10 % [facility] Work Phone: [phone] Platelet mean volume (Bld) [Entitic vol] 9.1 fL 7.4 - 10.4 fL [facility] Work Phone: [phone] Platelets (Bld) [#/Vol] 223 10*3/uL 140 - 440 10*3/uL [facility] Work Phone: RBC (Bld) [#/Vol] 5.56 10*6/uL 4.4 - 5.9 10*6/uL [facility] Work Phone: WBC (Bld) [#/Vol] 10.3 10*3/uL 3.6 - 10.7 10*3/uL [facility] Work Phone: Test Performed by [facility] [employer], [address] [place] [address] [facility] Work Phone: Lactic Acid, PlasmaOrdered B y: Chalino Jackson on 05-08-2019 Interpretation and review of laboratory results Abnormal [facility] Work Phone: Lactate [Moles/Vol] 3.1 mmol/L Critically high 0.7 - 2 mmol/L [facility] Work Phone: Test Performed by [facility], [address] [place] [address] [facility] Work Phone: Rapid influenza A/B antigens Ordered By: Chalino Jackson on 05-08-2019 INFLUENZA A Not detected Not Detected NA [facility] Work Phone: INFLUENZA B Not detected Not Detected NA [facility] Work Phone: Comment on above: Method: Isothermal n ucleic acid amplification technology. Test Performed by [facility], [facility] [address] , [place] [address] [facility] Work Phone: XR CHEST STANDARD (2 VW)Orde red By: Chalino Jackson on 05-08-2019 Patient Name: ISA SMILEY ---Diagnostic Radiology--- Exam Date/Time 05/08/2019 13:31:56 EST Exam CR Chest PA/LAT Ordering Physician Diana -CHALINO JACKSON Accession Number [id number] CPT4 Codes 31176 () Reason For Exam cough Report PA AND LATERAL CHEST CLINICAL INDICATION: Cough TECHNIQUE: PA and Lateral chest COMPARISON: 06/27/2015 FINDINGS: The cardiomediastinal silhouette appears unchanged from the prior exam. There are coarse interstitial markings likely related to chronic pulmonary disease. Subsegmental left basilar atelectasis. No consolidation or pulmonary edema. There is no sizable pleural effusion. Postsurgical changes in the left shoulder. Degenerative changes in the spine. IMPRESSION: Coarse interstitial markings likely related to chronic pulmonary disease. Subsegmental left basilar atelectasis. No consolidation or pulmonary edema Report Dictated on --- Final --- Dictating Physician: MD GRANDA NICHOLAS Signed Date and Time: 05/08/2019 1:44 pm Signed by: MD GRANDA NICHOLAS Transcribed Date and Time: 05/08/2019 1:45 [facility] Work Phone: [facility], [facility] Incoming Radiology Results From [facility] - 05/08/2019 1:46 PM EST Patient Name: ISA MAYEN ---Diagnostic Radiology--- Exam Date/Time 05/08/2019 13:31:56 EST Exam CR Chest PA/LAT Ordering Physician CHALINO SERRANO Accession Number [id number] CPT4 Codes 45689 () Reason For Exam cough Report PA AND LATERAL CHEST CLINICAL INDICATION: Cough TECHNIQUE: PA and Lateral chest COMPARISON: 06/27/2015 FINDINGS: The cardiomediastinal silhouette appears unchanged from the prior exam. There are coarse interstitial markings likely related to chronic pulmonary disease. Subsegmental left basilar atelectasis. No consolidation or pulmonary edema. There is no sizable pleural effusion. Postsurgical changes in the left shoulder. Degenerative changes in the spine. IMPRESSION: Coarse interstitial markings likely related to chronic pulmonary disease. Subsegmental left basilar atelectasis. No consolidation or pulmonary edema Report Dictated on --- Final --- Dictating Physician: MD GRANDA NICHOLAS Signed Date and Time: 05/08/2019 1:44 pm Signed by: MD GRANDA NICHOLAS Transcribed Date and Time: 05/08/2019 1:45 [facility] Work Phone: BENZODIAZEPINES CONF,URINEon 07-11-2017 7-AMINOCLONAZEPAM <5 Normal [facility] Comment on above: Performed By: #### B ENCN ####[facility] [place] [address] ALPHA-HYDROXYALPRAZOLA M <5 Normal [facility] Comment on above: Performed By: #### B ENCN ####[address] [place] [address] ALPHA-HYRDOXYMIDAZOLAM <20 Normal [facility] Comment on above: Result Comment: Perf ormed by [facility] [employer],[address] [place] [address], [facility] [place] [address] [employer], Abiodun Parham MD - Lab. Director Performed By: #### B ENCN ####[address] [place] [address] ALPRAZOLAM <5 Normal [facility] Comment on above: Performed By: #### B ENCN ####[address] [place] [address] CHLORDIAZEPOXIDE <20 Normal [facility] Comment on above: Performed By: #### B ENCN ####[address] [place] [address] CLONAZEPAM <5 Normal [facility] Comment on above: Performed By: #### B ENCN ####[address] [place] [address] DIAZEPAM <20 Normal [facility] Comment on above: Result Comment: INTE RPRETIVE INFORMATION: Benzodiazepines, Urine, QuantitativeMethodology: Quantitative Liquid Chromatography-Tandem MassSpectrometryPositive cutoff: 20 ng/mL unless specified below:Alprazolam 5 ng/mLAlpha-hydroxyalprazolam 5 ng/mLClonazepam 5 ng/mL7-aminoclonazepam 5 ng/mLFor medical purposes only; not valid for forensic use.Identification of specific drug(s) taken by specimen donor isproblematic due to common metabolites, some of which areprescription drugs themselves. The absence of expected drug(s)and/or drug metabolite(s) may indicate non-compliance,inappropriate timing of specimen collection relative to drugadministration, poor drug absorption, diluted/adulterated urine,or limitations of testing. The concentration value must be greaterthan or equal to the cutoff to be reported as positive.Interpretive questions should be directed to the laboratory.Test developed and characteristics determined by [facility]. See Compliance Statement B: [email or web address] Performed By: #### B ENCN ####[facility] [address] [place] [address] LORAZEPAM <20 Normal [facility] Comment on above: Performed By: #### B ENCN ####[facility] [id number] [place] [address] MIDAZOLAM <20 Normal [facility] Comment on above: Performed By: #### B ENCN ####[facility] [address] [place] [address] NORDIAZEPAM <20 Normal [facility] Comment on above: Performed By: #### B ENCN ####[facility] [address] [place] [address] OXAZEPAM <20 Normal [facility] Comment on above: Performed By: #### B ENCN ####[facility] [address] [place] [address] TEMAZEPAM <20 Normal [facility] Comment on above: Performed By: #### B ENCN ####[facility] [address] [place] [address] OPIATE CONFIRMATION,URINEon 07-10-2017 Acetaminophen mass conc <10 Normal [facility] Comment on above: Result Comment: INTE RPRETIVE INFORMATION: Opiates, Urine, QuantitativeMethodology: Quantitative Liquid Chromatography-Tandem MassSpectrometryPositive cutoff: 20 ng/mL except as specified below6-acetylmorphine 10 ng/mLFor medical purposes only; not valid for forensic use.Identification of specific drug(s) taken by specimen donor isproblematic due to common metabolites, some of which areprescription drugs themselves. The absence of expected drug(s)and/or drug metabolite(s) may indicate non-compliance,inappropriate timing of specimen collection relative to drugadministration, poor drug absorption, diluted/adulterated urine,or limitations of testing. All drug analytes covered are in thenon-glucuronidated (free) forms. The concentration value must begreater than or equal to the cutoff to be reported as positive. Vineet small amount of an unexpected drug analyte in the presence ofa large amount of an expected drug analyte may reflectpharmaceutical impurity. Interpretive questions should be directedto the laboratory.Test developed and characteristics determined by [facility]. See Compliance Statement B: ThisNext/ Performed By: #### O PIC2 ####[facility] [address] [place] [address] CODEINE 70 ng/mL Normal [facility] Comment on above: Result Comment: Cons istent with use of a drug containing codeine. Performed By: #### O PIC2 ####[facility] [place] [address] HYDROCODONE <20 Normal [facility] Comment on above: Performed By: #### O PIC2 ####[facility] [place] [address] HYDROMORPHONE <20 Normal [facility] Comment on above: Performed By: #### O PIC2 ####[address] [place] [address] MORPHINE <20 Normal [facility] Comment on above: Performed By: #### O PIC2 ####[facility] [place] [address] NORHYDROCODONE <20 Normal [facility] Comment on above: Result Comment: Perf ormed by [employer],[address] [place] [address] wop.ThisNext, Abiodun Parham MD - Lab. Director Performed By: #### O PIC2 ####[facility] [place] [address] NOROXYCODONE 97 ng/mL Normal [facility] Comment on above: Result Comment: Noro xycodone is a metabolite of oxycodone; consistent with use ofa drug containing oxycodone. Performed By: #### O PIC2 ####[facility] [place] [address] NOROXYMORPHONE 27 ng/mL Normal [facility] Comment on above: Result Comment: Noro xymorphone is a metabolite of oxymorphone and naloxone(nornaloxone); consistent with use of a drug containingoxymorphone or naloxone. Oxymorphone may also be a metabolite ofoxycodone. Performed By: #### O PIC2 ####[facility] [address] [place] [address] OXYCODONE <20 Normal [facility] Comment on above: Performed By: #### O PIC2 ####[facility] [address] [place] [address] OXYMORPHONE <20 Normal [facility] Comment on above: Performed By: #### O PIC2 ####[facility] [address] [place] [address] BUPRENORPHINE SCREEN TO CONF IRM,URINEon 07-09-2017 BUPRENORPHINE SCREEN,INTERP. See Note Normal [facility] Comment on above: Result Comment: INTE RPRETIVE INFORMATION:The absence of expected drug(s) and/or drug metabolite(s) mayindicate non-compliance, inappropriate timing of specimencollection relative to drug administration, poor drug absorption,diluted/adulterated urine, or limitations of testing. Theconcentration at which the screening test can detect a drug ormetabolite varies. Specimens for which drugs or drug classes aredetected by the screen are reflexed to a second, more specifictechnology (GC/MS and/or LC-MS/MS). The concentration value mustbe greater than or equal to the cutoff to be reported as positive.Interpretive questions should be directed to the laboratory.For medical purposes only; not valid for forensic use.Test developed and characteristics determined by [facility]. See Compliance Statement B: ThisNext/CSPerformed by [employer],[address] [place] [address] pfr.ThisNext, Abiodun Parham MD - Lab. Director Performed By: #### B UPRS ####[facility] [place] [address] BUPRENORPHINE SCREEN,URINE Negative Normal Cutoff 5 [facility] Comment on above: Performed By: #### B UPRS ####[facility] [place] [address] DRUG SCREEN,PAIN MANAGEMENTo n 07-05-2017 Amphetamines Ql (U) Negative Normal NEGATIVE [facility] Comment on above: Result Comment: CUTO FF LEVEL: 500 NG/ML 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 Consultant drug: d-Methamphetamine Cross-reactivity has been reported with high concentrations of the following drugs: buproprion, chloroquine, chlorpromazine, ephedrine, mephentermine, fenfluramine, phentermine, phenylpropanolamine, pseudoephedrine, and propranolol. Performed By: #### D SPMT ####[facility] [id number] Benzodiazepines Screen Ql (U) Negative Normal NEGATIVE [facility] Comment on above: Result Comment: CUTO FF LEVEL:200 NG/ML 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 Consultant drug: LormetazepamBenzodiazepine Confirmatory testing has been sent to a reference laboratoryand will be reported separately. Although the benzodiazepine screening testprovides rapid results; the confirmatory test provide the most sensitive andspecific assessment of drug presence or absence in the urine. Performed By: #### D SPMT ####[facility])[address] [id number] Cannabinoids Screen Ql (U) Negative Normal NEGATIVE [facility] Comment on above: Result Comment: CUTO FF LEVEL:50 NG/ML 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 Consultant dru56-rul-lybji0-THC-9carboxylic acid Performed By: #### D SPMT ####[facility] [place] [address] COCAINE METABOLITE Negative Normal NEGATIVE [facility] Comment on above: Result Comment: CUTO FF LEVEL: 150 NG/ML 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 Consultant drug: Benzoylecgonine(cocaine metabolite) Performed By: #### D SPMT ####[facility])[address] [place] [address] DRUG SCREEN COMMENT. SEE BELOW Normal [facility] Comment on above: Result Comment: POSI TIVE CUTOFFS ARE BASED ON REACTIVITY WITH A CREPE MAKER MEMBER OF DRUG CLASS. MEMBERS OF THE SAME CLASS OF DRUG MAY HAVE DIFFERING REACTIVITY WITH THE ASSAY AND THEREFORE MAY NEED TO BE PRESENT IN HIGHER CONCENTRATIONS TO GENERATE A POSITIVE RESULT.. THESE TOXICOLOGY SCREENS PROVIDE UNCONFIRMED ANALYTICAL RESULTS SUITABLE FOR CLINICAL MANAGEMENT. A POSITIVE QUALITATIVE RESULT DOES NOT INDICATE OR MEASURE INTOXICATION. FOR QUANTITATIVE CONFIRMATORY TESTING OR PATHOLOGIST CONSULTATION, CALL LABORATORY AT [phone]. Performed By: #### D SPMT ####[facility])[address] [place] [address] Methadone Ql (U) Negative Normal NEGATIVE [facility] Comment on above: Result Comment: CUTO FF LEVEL: 150 NG/ML 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 Consultant drug: Methadone The metabolite S-zbcfr-usmwjvonnhyzsz (LAAM) is not detected by this method in concentrations that would be found in the urine of patients on LAAM therapy. Performed By: #### D SPMT ####[facility])[address] [place] [address] Opiates Ql (U) Positive Abnormal NEGATIVE [facility] Comment on above: Result Comment: CUTO FF LEVEL: 300 NG/ML 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 Consultant Drug: Morphine This assay shows poor reactivity with synthetic opioids such as oxycodone and fentanyl. Cross-reactivity has been reported at high doses of meperidine.Opiate/Oxycodone Confirmatory testing has been sent to a referencelaboratory and will be reported separately. Although the screening testsprovide rapid results; the confirmatory tests provide the most sensitive andspecific assessment of drug presence or absence in the urine. Performed By: #### D SPMT ####[facility])[address] [place] [address] PCP Negative Normal NEGATIVE [facility] Comment on above: Result Comment: CUTO FF LEVEL: 25 NG/ML 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 Consultant drug: Phencyclidine(PCP) Cross-reactivity has been reported with dextromethorphan. Performed By: #### D SPMT ####[facility])[address] [id number] URINE BARBITURATES Negative Normal NEGATIVE [facility] Comment on above: Result Comment: CUTO FF LEVEL:200 NG/ML 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 Consultant drug: Secobarbital Performed By: #### D SPMT ####[facility])[address] [id number] BENZODIAZEPINES CONF,URINEon 03-13-2017 7-AMINOCLONAZEPAM <5 Normal [facility] Comment on above: Performed By: #### B ENCN ####[facility] [address] [facility] [address] ALPHA-HYDROXYALPRAZOLA M <5 Normal [facility] Comment on above: Performed By: #### B ENCN ####[facility] [address] [facility] [place] [address] ALPHA-HYRDOXYMIDAZOLAM <20 Normal [facility] Comment on above: Result Comment: Perf ormed by [employer],[address], [facility] [place] [address] wip.ThisNext, Abiodun Parham MD - Lab. Director Performed By: #### B ENCN ####[facility] [address] [place] [address] ALPRAZOLAM <5 Normal [facility] Comment on above: Performed By: #### B ENCN ####[facility] [address] [facility] [place] [address] CHLORDIAZEPOXIDE <20 Normal [facility] Comment on above: Performed By: #### B ENCN ####[facility] [address] [facility] [place] [address] CLONAZEPAM <5 Normal [facility] Comment on above: Performed By: #### B ENCN ####[facility] [address] [place] [address] DIAZEPAM <20 Normal [facility] Comment on above: Result Comment: INTE RPRETIVE INFORMATION: Benzodiazepines, Urine, QuantitativeMethodology: Quantitative Liquid Chromatography-Tandem MassSpectrometryPositive cutoff: 20 ng/mL unless specified below:Alprazolam 5 ng/mLAlpha-hydroxyalprazolam 5 ng/mLClonazepam 5 ng/mL7-aminoclonazepam 5 ng/mLFor medical purposes only; not valid for forensic use.Identification of specific drug(s) taken by specimen donor isproblematic due to common metabolites, some of which areprescription drugs themselves. The absence of expected drug(s)and/or drug metabolite(s) may indicate non-compliance,inappropriate timing of specimen collection relative to drugadministration, poor drug absorption, diluted/adulterated urine,or limitations of testing. The concentration value must be greaterthan or equal to the cutoff to be reported as positive.Interpretive questions should be directed to the laboratory.Test developed and characteristics determined by [facility]. See Compliance Statement B: ThisNext/ Performed By: #### B ENCN ####[facility] [address] [place] [address] LORAZEPAM <20 Normal [facility] Comment on above: Performed By: #### B ENCN ####[facility] [address] [facility] [place] [address] MIDAZOLAM <20 Normal [facility] Comment on above: Performed By: #### B ENCN ####[facility] [address] [place] [address] NORDIAZEPAM <20 Normal [facility] Comment on above: Performed By: #### B ENCN ####[facility] [address] [place] [address] OXAZEPAM <20 Normal [facility] Comment on above: Performed By: #### B ENCN ####[facility] [address] [place] [address] TEMAZEPAM <20 Normal [facility] Comment on above: Performed By: #### B ENCN ####[facility] [address] [place] [address] OPIATE CONFIRMATION,URINEon 03-12-2017 Acetaminophen mass conc <10 Normal [facility] Comment on above: Result Comment: INTE RPRETIVE INFORMATION: Opiates, Urine, QuantitativeMethodology: Quantitative Liquid Chromatography-Tandem MassSpectrometryPositive cutoff: 20 ng/mL except as specified below6-acetylmorphine 10 ng/mLFor medical purposes only; not valid for forensic use.Identification of specific drug(s) taken by specimen donor isproblematic due to common metabolites, some of which areprescription drugs themselves. The absence of expected drug(s)and/or drug metabolite(s) may indicate non-compliance,inappropriate timing of specimen collection relative to drugadministration, poor drug absorption, diluted/adulterated urine,or limitations of testing. All drug analytes covered are in thenon-glucuronidated (free) forms. The concentration value must begreater than or equal to the cutoff to be reported as positive. Vineet small amount of an unexpected drug analyte in the presence ofa large amount of an expected drug analyte may reflectpharmaceutical impurity. Interpretive questions should be directedto the laboratory.Test developed and characteristics determined by [facility]. See Compliance Statement B: ThisNext/CS Performed By: #### O PIC2 ####[facility] [address] [place] [address] CODEINE <20 Normal [facility] Comment on above: Performed By: #### O PIC2 ####[facility] [address] [place] [address] HYDROCODONE <20 Normal [facility] Comment on above: Performed By: #### O PIC2 ####[facility] [address] [place] [address] HYDROMORPHONE <20 Normal [facility] Comment on above: Performed By: #### O PIC2 ####[facility] [address] [place] [address] MORPHINE <20 Normal [facility] Comment on above: Performed By: #### O PIC2 ####[facility] [address] [place] [address] NORHYDROCODONE <20 Normal [facility] Comment on above: Result Comment: Perf ormed by [employer],[address] [facility] [address], [facility] [place] [address] hst.ThisNext, Abiodun Parham MD - Lab. Director Performed By: #### O PIC2 ####[facility] [place] [address] NOROXYCODONE <20 Normal [facility] Comment on above: Performed By: #### O PIC2 ####[facility] [address] [place] [address] NOROXYMORPHONE <20 Normal [facility] Comment on above: Performed By: #### O PIC2 ####[facility] [address] [facility] [place] [address] OXYCODONE <20 Normal [facility] Comment on above: Performed By: #### O PIC2 ####[facility] [address] [facility] [place] [address] OXYMORPHONE <20 Normal [facility] Comment on above: Performed By: #### O PIC2 ####[facility] [address] [facility] [place] [address] DRUG SCREEN,PAIN MANAGEMENTo n 03-08-2017 Amphetamines Ql (U) Negative Normal NEGATIVE [facility] Comment on above: Result Comment: CUTO FF LEVEL: 500 NG/ML 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 Consultant drug: d-Methamphetamine Cross-reactivity has been reported with high concentrations of the following drugs: buproprion, chloroquine, chlorpromazine, ephedrine, mephentermine, fenfluramine, phentermine, phenylpropanolamine, pseudoephedrine, and propranolol. Performed By: #### D SPMT ####[facility] [place] [address] Benzodiazepines Screen Ql (U) Negative Normal NEGATIVE [facility] Comment on above: Result Comment: CUTO FF LEVEL:200 NG/ML 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 Consultant drug: LormetazepamBenzodiazepine Confirmatory testing has been sent to a reference laboratoryand will be reported separately. Although the benzodiazepine screening testprovides rapid results; the confirmatory test provide the most sensitive andspecific assessment of drug presence or absence in the urine. Performed By: #### D SPMT ####[facility])[address] [place] [address] Cannabinoids Screen Ql (U) Negative Normal NEGATIVE [facility] Comment on above: Result Comment: CUTO FF LEVEL:50 NG/ML 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 Consultant dru67-izy-jxkqo5-THC-9carboxylic acid Performed By: #### D SPMT ####[facility])[address] [id number] COCAINE METABOLITE Negative Normal NEGATIVE [facility] Comment on above: Result Comment: CUTO FF LEVEL: 150 NG/ML 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 Consultant drug: Benzoylecgonine(cocaine metabolite) Performed By: #### D SPMT ####[facility])[address] [place] [address] DRUG SCREEN COMMENT. SEE BELOW Normal [facility] Comment on above: Result Comment: POSI TIVE CUTOFFS ARE BASED ON REACTIVITY WITH A CREPE MAKER MEMBER OF DRUG CLASS. MEMBERS OF THE SAME CLASS OF DRUG MAY HAVE DIFFERING REACTIVITY WITH THE ASSAY AND THEREFORE MAY NEED TO BE PRESENT IN HIGHER CONCENTRATIONS TO GENERATE A POSITIVE RESULT.. THESE TOXICOLOGY SCREENS PROVIDE UNCONFIRMED ANALYTICAL RESULTS SUITABLE FOR CLINICAL MANAGEMENT. A POSITIVE QUALITATIVE RESULT DOES NOT INDICATE OR MEASURE INTOXICATION. FOR QUANTITATIVE CONFIRMATORY TESTING OR PATHOLOGIST CONSULTATION, CALL LABORATORY AT [phone]. Performed By: #### D SPMT ####[facility])[address] [id number] Methadone Ql (U) Negative Normal NEGATIVE [facility] Comment on above: Result Comment: CUTO FF LEVEL: 150 NG/ML 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 Consultant drug: Methadone The metabolite G-rxdal-kpxfqbqtbhzkme (LAAM) is not detected by this method in concentrations that would be found in the urine of patients on LAAM therapy. Performed By: #### D SPMT ####[facility])[address] [place] [address] Opiates Ql (U) Negative Normal NEGATIVE [facility] Comment on above: Result Comment: CUTO FF LEVEL: 300 NG/ML 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 Consultant Drug: Morphine This assay shows poor reactivity with synthetic opioids such as oxycodone and fentanyl. Cross-reactivity has been reported at high doses of meperidine.Opiate/Oxycodone Confirmatory testing has been sent to a referencelaboratory and will be reported separately. Although the screening testsprovide rapid results; the confirmatory tests provide the most sensitive andspecific assessment of drug presence or absence in the urine. Performed By: #### D SPMT ####[facility])[address] [place] [address] PCP Negative Normal NEGATIVE [facility] Comment on above: Result Comment: CUTO FF LEVEL: 25 NG/ML 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 Consultant drug: Phencyclidine(PCP) Cross-reactivity has been reported with dextromethorphan. Performed By: #### D SPMT ####[facility])[address] [place] [address] URINE BARBITURATES Negative Normal NEGATIVE [facility] Comment on above: Result Comment: CUTO FF LEVEL:200 NG/ML 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 Consultant drug: Secobarbital Performed By: #### D SPMT ####[facility])[address] [place] [address] Vital Signs Date Time Vital Sign Value Performing Clinician Facility 07-02-2024 13:01-0500 Body mass index (BMI) [Ratio] 37.81 kg/m2 Sharlene Escobar APRN.CNP Work Phone: [facility] 07-02-2024 13:01-0500 Body weight 130 kg Sharlene Escobar APRN.CNP Work Phone: [facility] 07-02-2024 13:01-0500 Diastolic blood pressure 81 mm[Hg] Sharlene Escobar APRN.CNP Work Phone: [facility] 07-02-2024 13:01-0500 Heart rate 77 /min Sharlene Kupiec [employer] Work Phone: [facility] 07-02-2024 13:01-0500 SaO2% (BldA) [Mass fraction] 96 % [facility] [employer] Work Phone: [facility] 07-02-2024 13:01-0500 Systolic blood pressure 144 mm[Hg[facility] [facility] Work Phone: [facility] 12-31-2023 12:55-0400 Body height 185.4 cm [facility] [employer] Work Phone: [facility] 12-31-2023 12:55-0400 Body mass index (BMI) [Ratio] 42.12 kg/m2 [facility] Work Phone: [facility] 12-31-2023 12:55-0400 Body weight 144.8 kg [facility] [employer]ER Work Phone: [facility] 12-31-2023 12:55-0400 Diastolic blood pressure 97 mm[Hg] [facility] [employer] Work Phone: [facility] 12-31-2023 12:55-0400 Heart rate 68 /min [facility] [employer] Work Phone: [facility] 12-31-2023 12:55-0400 SaO2% (BldA) [Mass fraction] 95 % [facility] [employer] Work Phone: [facility] 12-31-2023 12:55-0400 Systolic blood pressure 148 mm[Hg] Sharlene Kupiec [employer] Work Phone: [facility] 12-11-2023 14:46-0400 Diastolic blood pressure 71 mm[Hg] Reji Mansfield MD Work Phone: [facility] 12-11-2023 14:46-0400 Heart rate 49 /min Reji Mansfield MD Work Phone: [facility] 12-11-2023 14:46-0400 Respiratory rate 20 /min Reji Mansfield MD Work Phone: [facility] 12-11-2023 14:46-0400 SaO2% (BldA) [Mass fraction] 96 % Reji Mansfield MD Work Phone: [facility] 12-11-2023 14:46-0400 Systolic blood pressure 122 mm[Hg] Reji Mansfield MD Work Phone: [facility] 12-11-2023 10:49-0400 Body temperature 96.8 [degF] Reji Mansfield MD Work Phone: [facility] 12-06-2023 13:26-0400 Body height 185.4 cm Pacc 1 Work Phone: [facility] 12-06-2023 13:26-0400 Body mass index (BMI) [Ratio] 41.56 kg/m2 Pacc 1 Work Phone: [facility] 12-06-2023 13:26-0400 Body temperature 96.49 [degF] Pacc 1 Work Phone: [facility] 12-06-2023 13:26-0400 Body weight 142.88 kg Pacc 1 Work Phone: [facility] 12-06-2023 13:26-0400 Diastolic blood pressure 72 mm[Hg] Pacc 1 Work Phone: [facility] 12-06-2023 13:26-0400 Heart rate 68 /min Pacc 1 Work Phone: [facility] 12-06-2023 13:26-0400 Respiratory rate 14 /min Pacc 1 Work Phone: [facility] 12-06-2023 13:26-0400 SaO2% (BldA) [Mass fraction] 96 % Pacc 1 Work Phone: [facility] 12-06-2023 13:26-0400 Systolic blood pressure 122 mm[Hg] Pacc 1 Work Phone: [facility] 07-18-2023 12:15-0400 Body temperature 98 [degF] MD RICARDO ABRAHAM Work Phone: [facility] 07-18-2023 12:15-0400 Diastolic blood pressure 77 mm[Hg] MD RICARDO ABRAHAM Work Phone: [facility] 07-18-2023 12:15-0400 Heart rate 86 /min MD RICARDO ABRAHAM Work Phone: [facility] 07-18-2023 12:15-0400 Respiratory rate 18 /min MD RICARDO ABRAHAM Work Phone: [facility] 07-18-2023 12:15-0400 SaO2% (BldA) [Mass fraction] 95 % MD RICARDO ABRAHAM Work Phone: [facility] 07-18-2023 12:15-0400 Systolic blood pressure 140 mm[Hg] MD RICARDO ABRAHAM Work Phone: [facility] 07-18-2023 08:11-0400 Body temperature 97.9 [degF] MD RICARDO ABRAHAM Work Phone: [facility] 07-18-2023 08:11-0400 Diastolic blood pressure 67 mm[Hg] MD RICARDO ABRAHAM Work Phone: [facility] 07-18-2023 08:11-0400 Heart rate 75 /min MD RICARDO ABRAHAM Work Phone: [facility] 07-18-2023 08:11-0400 Respiratory rate 18 /min MD RICARDO ABRAHAM Work Phone: [facility] 07-18-2023 08:11-0400 SaO2% (BldA) [Mass fraction] 98 % MD RICARDO ABRAHAM Work Phone: [facility] 07-18-2023 08:11-0400 Systolic blood pressure 143 mm[Hg] MD RICARDO ABRAHAM Work Phone: [facility] 07-17-2023 16:23-0400 Body height 182.88 cm MD RICARDO ABRAHAM Work Phone: [facility] 07-17-2023 16:23-0400 Body mass index (BMI) [Ratio] 44.5 kg/m2 MD RICARDO ABRAHAM Work Phone: [facility] 07-17-2023 16:23-0400 Body weight 149 kg MD RICARDO ABRAHAM Work Phone: [facility] 07-17-2023 13:00-0400 Inhaled oxygen flow rate 4 L/min MD RICARDO ABRAHAM Work Phone: [facility] 12-21-2022 11:28-0400 Body temperature 98.3 [degF] [facility] 12-21-2022 11:28-0400 Diastolic blood pressure 61 mm[Hg] [facility] 12-21-2022 11:28-0400 Heart rate 69 /min [facility] 12-21-2022 11:28-0400 Respiratory rate 16 /min [facility] 12-21-2022 11:28-0400 SaO2% (BldA) [Mass fraction] 92 % [facility] 12-21-2022 11:28-0400 Systolic blood pressure 117 mm[Hg] [facility] 12-21-2022 07:03-0400 Body height 185.42 cm [facility] 12-21-2022 07:03-0400 Body mass index (BMI) [Ratio] 42.6 kg/m2 [facility] 12-21-2022 07:03-0400 Body weight 146.51 kg [facility] 08-24-2022 11:57-0400 [facility] height [facility].4 [facility] Work Phone: [facility] 08-24-2022 11:57-0400 Body [facility] Work Phone: [facility] 08-24-2022 11:57-0400 Diastolic blood pressure 78 mm[Hg] [facility] Work Phone: [facility] 08-24-2022 11:57-0400 Heart rate 73 /min Sharlene Kupiec [employer]IO MGR.[employer]ICAL [employer]ORER Work Phone: [facility] 08-24-2022 11:57-0400 SaO2% (BldA) [Mass fraction] 97 % Sharlene Kupiec [employer]IO MGR.VERTICAL [employer]ORER Work Phone: [facility] 08-24-2022 11:57-0400 Systolic blood pressure 127 mm[Hg] Sharlene Kupiec [employer]IO MGR.[employer]ORER Work Phone: [facility] 06-29-2022 11:57-0500 Body height 185.4 cm Sharlene Kupiec [employer]IO MGR.[employer]ORER Work Phone: [facility] 06-29-2022 11:57-0500 Body weight 158.22 kg Sharlene Kupiec [employer]IO MGR.VERTICAL [employer]ORER Work Phone: [facility] 06-29-2022 11:57-0500 Diastolic blood pressure 74 mm[Hg] Sharlene Kupiec [employer]IO MGR.VERTICAL [employer]ORER Work Phone: [facility] 06-29-2022 11:57-0500 Heart rate 78 /min Sharlene Kupiec [employer]IO MGR.[employer]ICAL [employer]ORER Work Phone: [facility] 06-29-2022 11:57-0500 SaO2% (BldA) [Mass fraction] 98 % Sharlene Kupiec PORTFOLIO MGR.VERTICAL BORER Work Phone: [facility] 06-29-2022 11:57-0500 Systolic blood pressure 131 mm[Hg] Sharlene Kupiec PORTF[employer]IO MGR.VERTICAL BORER Work Phone: [facility] 06-01-2022 12:20-0500 Body temperature 98.1 [degF] [facility] 06-01-2022 12:20-0500 Diastolic blood pressure 64 mm[Hg] [facility] 06-01-2022 12:20-0500 Heart rate 68 /min [facility] 06-01-2022 12:20-0500 Respiratory rate 16 /min [facility] 06-01-2022 12:20-0500 SaO2% (BldA) [Mass fraction] 95 % [facility] 06-01-2022 12:20-0500 Systolic blood pressure 112 mm[Hg] [facility] 06-01-2022 09:51-0500 Body height 185.42 cm [facility] 06-01-2022 09:51-0500 Body mass index (BMI) [Ratio] 46.5 kg/m2 [facility] 06-01-2022 09:51-0500 Body weight 160.11 kg [facility] 05-25-2022 12:13-0500 Body height 180.6 cm Sharlene Kupiec [employer] M[employer]ER Work Phone: [facility] 05-25-2022 12:13-0500 Body weight 154.22 kg Sharlene Kupiec [employer]IO M[employer]ER Work Phone: [facility] 05-25-2022 12:13-0500 Diastolic blood pressure 81 mm[Hg] Sharlene Kupiec [employer]IO MGR.[employer]ORER Work Phone: [facility] 05-25-2022 12:13-0500 Heart rate 75 /min Sharlene Kupiec [employer]IO M[employer]ER Work Phone: [facility] 05-25-2022 12:13-0500 Respiratory rate 16 /min Sharlene Kupiec [employer]IO MGR.[employer]ER Work Phone: [facility] 05-25-2022 12:13-0500 SaO2% (BldA) [Mass fraction] 94 % Sharlene Kupiec [employer]IO M[employer]ER Work Phone: [facility] 05-25-2022 12:13-0500 Systolic blood pressure 122 mm[Hg] Sharlene Kupiec [employer]IO M[employer]ER Work Phone: [facility] 05-15-2022 11:01-0500 Body temperature 96 [degF] [facility] 05-15-2022 11:01-0500 Diastolic blood pressure 68 mm[Hg] [facility] 05-15-2022 11:01-0500 Heart rate 80 /min [facility] 05-15-2022 11:01-0500 Respiratory rate 18 /min [facility] 05-15-2022 11:01-0500 Systolic blood pressure 119 mm[Hg] [facility] 05-01-2022 11:35-0500 Body temperature 97.8 [degF] [facility] 05-01-2022 11:35-0500 Diastolic blood pressure 84 mm[Hg] [facility] 05-01-2022 11:35-0500 Heart rate 84 /min [facility] 05-01-2022 11:35-0500 Respiratory rate 16 /min [facility] 05-01-2022 11:35-0500 Systolic blood pressure 146 mm[Hg] [facility] 04-03-2022 11:11-0500 Body temperature 96.9 [degF] [facility] 04-03-2022 11:11-0500 Diastolic blood pressure 72 mm[Hg] [facility] 04-03-2022 11:11-0500 Heart rate 87 /min [facility] 04-03-2022 11:11-0500 Respiratory rate 20 /min [facility] 04-03-2022 11:11-0500 Systolic blood pressure 131 mm[Hg] [facility] 02-27-2022 11:30-0400 Body temperature 97.2 [degF] [facility] 02-27-2022 11:30-0400 Diastolic blood pressure 78 mm[Hg] [facility] 02-27-2022 11:30-0400 Heart rate 82 /min [facility] 02-27-2022 11:30-0400 Systolic blood pressure 126 mm[Hg] [facility] 02-06-2022 11:29-0400 Respiratory rate 16 /min [facility] 01-10-2022 14:21-0400 Body temperature 96.7 [degF] [facility] Work Phone: 01-10-2022 14:21-0400 Diastolic blood pressure 82 mm[Hg] [facility] Work Phone: 01-10-2022 14:21-0400 Heart rate 77 /min [facility] Work Phone: 01-10-2022 14:21-0400 Respiratory rate 20 /min [facility] Work Phone: 01-10-2022 14:21-0400 Systolic blood pressure 169 mm[Hg] [facility] Work Phone: 01-03-2022 14:51-0400 Body temperature 97.1 [degF] [facility] Work Phone: 01-03-2022 14:51-0400 Diastolic blood pressure 77 mm[Hg] [facility] Work Phone: 01-03-2022 14:51-0400 Heart rate 77 /min [facility] Work Phone: 01-03-2022 14:51-0400 Respiratory rate 18 /min [facility] Work Phone: 01-03-2022 14:51-0400 Systolic blood pressure 165 mm[Hg] [facility] Work Phone: 11-29-2021 14:30-0400 Body temperature 96.6 [degF] [facility] Work Phone: 11-29-2021 14:30-0400 Diastolic blood pressure 70 mm[Hg] [facility] Work Phone: 11-29-2021 14:30-0400 Heart rate 75 /min [facility] Work Phone: 11-29-2021 14:30-0400 Respiratory rate 16 /min [facility] Work Phone: 11-29-2021 14:30-0400 Systolic blood pressure 132 mm[Hg] [facility] Work Phone: 11-15-2021 13:58-0400 Diastolic blood pressure 49 mm[Hg] [facility] Work Phone: 11-15-2021 13:58-0400 Heart rate 77 /min [facility] Work Phone: 11-15-2021 13:58-0400 Respiratory rate 16 /min [facility] Work Phone: 11-15-2021 13:58-0400 Systolic blood pressure 124 mm[Hg] [facility] Work Phone: 11-14-2021 14:04-0400 Body height 180.6 cm [facility] [employer] MGR.[employer]ER Work Phone: [facility] 11-14-2021 14:04-0400 Body weight 158.31 kg [facility] [employer] M[employer] Work Phone: [facility] 11-14-2021 14:04-0400 Diastolic blood pressure 71 mm[Hg] [facility] [employer] M[employer]ER Work Phone: [facility] 11-14-2021 14:04-0400 Heart rate 76 /min [facility] [employer] MGR[employer] Work Phone: [facility] 11-14-2021 14:04-0400 SaO2% (BldA) [Mass fraction] 94 % [facility] [employer] MGR.[employer]ER Work Phone: [facility] 11-14-2021 14:04-0400 Systolic blood pressure 118 mm[Hg] [facility] [employer] MGR.[employer] Work Phone: [facility] 11-03-2021 00:15-0400 Body temperature 98.3 [degF] [facility] Work Phone: 11-01-2021 14:04-0400 Body temperature 98.3 [degF] [facility] Work Phone: 11-01-2021 14:04-0400 Diastolic blood pressure 72 mm[Hg] [facility] Work Phone: 11-01-2021 14:04-0400 Heart rate 75 /min [facility] Work Phone: 11-01-2021 14:04-0400 Respiratory rate 18 /min [facility] Work Phone: 11-01-2021 14:04-0400 Systolic blood pressure 136 mm[Hg] [facility] Work Phone: 09-27-2021 13:19-0400 Body temperature 98.2 [degF] [facility] Work Phone: 09-27-2021 13:19-0400 Diastolic blood pressure 78 mm[Hg] [facility] Work Phone: 09-27-2021 13:19-0400 Heart rate 86 /min [facility] Work Phone: 09-27-2021 13:19-0400 Respiratory rate 20 /min [facility] Work Phone: 09-27-2021 13:19-0400 Systolic blood pressure 134 mm[Hg] [facility] Work Phone: 09-20-2021 13:36-0400 Body temperature 96.9 [degF] [facility] Work Phone: 09-20-2021 13:36-0400 Diastolic blood pressure 69 mm[Hg] [facility] Work Phone: 09-20-2021 13:36-0400 Heart rate 89 /min [facility] Work Phone: 09-20-2021 13:36-0400 Systolic blood pressure 149 mm[Hg] [facility] Work Phone: 09-13-2021 13:58-0400 Respiratory rate 22 /min [facility] Work Phone: 08-30-2021 13:08-0400 Body temperature 97 [degF] [facility] Work Phone: 08-30-2021 13:08-0400 Diastolic blood pressure 85 mm[Hg] [facility] Work Phone: 08-30-2021 13:08-0400 Heart rate 74 /min [facility] Work Phone: 08-30-2021 13:08-0400 Respiratory rate 16 /min [facility] Work Phone: 08-30-2021 13:08-0400 Systolic blood pressure 147 mm[Hg] [facility] Work Phone: 10-07-2020 12:47-0400 Diastolic blood pressure 69 mm[Hg] Meredith Tinoco MD Work Phone: [facility] Work Phone: 10-07-2020 12:47-0400 Heart rate 72 /min Meredith Tinoco MD Work Phone: [facility] Work Phone: 10-07-2020 12:47-0400 Respiratory rate 20 /min Meredith Tinoco MD Work Phone: [facility] Work Phone: 10-07-2020 12:47-0400 SaO2% (BldA) [Mass fraction] 99 % Meredith Tinoco MD Work Phone: [facility] Work Phone: 10-07-2020 12:47-0400 Systolic blood pressure 127 mm[Hg] Meredith Tinoco MD Work Phone: [facility] Work Phone: 10-07-2020 10:46-0400 Body height 185.4 cm Meredith Tinoco MD Work Phone: [facility] Work Phone: 10-07-2020 10:46-0400 Body mass index (BMI) [Ratio] 42.22 kg/m2 Meredith Tinoco MD Work Phone: [facility] Work Phone: 10-07-2020 10:46-0400 Body temperature 98.2 [degF] Meredith Tinoco MD Work Phone: [facility] Work Phone: 06-04-2021 10:46-0400 Body weight 145.15 kg Meredith Tinoco MD Work Phone: [facility] Work Phone: 05-08-2019 15:18-0500 Diastolic blood pressure 77 mm[Hg] Chalino Renetta DO Work Phone: [facility] Work Phone: 05-08-2019 15:18-0500 Heart rate 86 /min Chalino Renetta DO Work Phone: [facility] Work Phone: 05-08-2019 15:18-0500 Respiratory rate 18 /min Chalino Renetta DO Work Phone: [facility] Work Phone: 05-08-2019 15:18-0500 SaO2% (BldA) [Mass fraction] 96 % Chalino Renetta DO Work Phone: [facility] Work Phone: 05-08-2019 15:18-0500 Systolic blood pressure 118 mm[Hg] Chalino Renetta DO Work Phone: [facility] Work Phone: 05-08-2019 12:42-0500 Body temperature 98.6 [degF] Chalino Renetta DO Work Phone: [facility] Work Phone: Encounters Encounter Date Encounter Type Care Provider Facility Start: 11-24-2024 ambulatory [facility] Facility:[facility] Start: 09-29-2024 End: 09-29-2024 ambulatory Sharlene Escobar APRN.VERTICAL BORER Work Phone: Endocrinology Comment on above: Meds Start: 07-30-2024 End: 07-30-2024 Telephone encounter Sharlene Escobar [employer]IO MGR.[employer]ER Work Phone: Endocrinology Comment on above: Office Notes ([facility]) Start: 07-10-2024 End: 07-10-2024 Telephone encounter Sharlene Escobar APRN.VERTICAL BORER Work Phone: Endocrinology Comment on above: Medication Problem Start: 07-09-2024 End: 07-09-2024 Refill [facility] PORTFOLIO MGR.VERTICAL BORER Work Phone: Endocrinology Comment on above: Refill Request Start: 07-07-2024 End: 07-07-2024 Telephone encounter [facility] PORT[employer]OLIO MGR.VERTICAL BORER Work Phone: Endocrinology Comment on above: PA--FreeStyle Alonso 2 Sensors Start: 07-03-2024 End: 07-06-2024 ambulatory [facility] PORT[employer]OLIO MGR.VERTICAL BORER Work Phone: Endocrinology Comment on above: Hematology Amyloidosis Start: 07-03-2024 End: 07-03-2024 Telephone encounter [facility] PORTFOLIO MGR.VERTICAL BORER Work Phone: Endocrinology Comment on above: PA--Reese Start: 07-02-2024 End: 07-02-2024 ambulatory [facility] Facility:[facility] Start: 07-02-2024 End: 07-02-2024 Patient encounter procedure [facility] PORTFOLIO MGR.VERTICAL BORER Work Phone: Endocrinology Comment on above: 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, with long-term current use of insulin (HCC) (Primary Dx); Type 2 diabetes mellitus with diabetic polyneuropathy, with long-term current use of insulin (HCC); Type 2 diabetes mellitus with microalbuminuria, with long-term current use of insulin ([facility]); Hypoglycemia due to type 2 diabetes mellitus (HCC); Essential hypertension; Mixed hyperlipidemia; Amyloidosis, unspecified type (HCC); Obesity, Class II, BMI 35-39.9; Vitamin D deficiency; Abnormal results of thyroid function studies Start: 04-17-2024 End: 04-17-2024 ambulatory Mario Yun Facility:[facility] Start: 04-15-2024 End: 04-15-2024 ambulatory [facility] [employer]IO MGR.[employer] BORER Work Phone: Endocrinology Comment on above: Sugars Start: 04-14-2024 End: 04-15-2024 ambulatory [facility] [employer]OLIO MGR.VERTICAL BORER Work Phone: Endocrinology Comment on above: Chacha amaya on Start: 04-09-2024 End: 04-13-2024 Telephone encounter [facility] PORTFOLIO MGR.VERTICAL BORER Work Phone: Endocrinology Comment on above: PA--FreeStyle Alonso 2 Sensors Start: 03-27-2024 ambulatory [facility] Facility :[facility] Start: 02-04-2024 End: 02-04-2024 Telephone encounter Annette Ulloa RN Cardiology Comment on above: Results Start: 01-01-2024 End: 01-01-2024 Telephone encounter [facility] PORT[employer]IO MGR.VERT[employer]ORER Work Phone: Endocrinology Comment on above: PA--Loreta Millan [id number] Start: 12-31-2023 End: 12-31-2023 Telephone encounter [facility] PORTFOLIO MGR.VERTICAL BORER Work Phone: Endocrinology Comment on above: [employer] Start: 12-31-2023 End: 12-31-2023 ambulatory [facility] Facility:[facility] Start: 12-31-2023 End: 12-31-2023 Patient encounter procedure [facility] PORTFOLIO MGR.VERTICAL BORER Work Phone: Endocrinology Comment on above: 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, with long-term current use of insulin (HCC) (Primary Dx); Type 2 diabetes mellitus with diabetic polyneuropathy, with long-term current use of insulin (HCC); Type 2 diabetes mellitus with microalbuminuria, with long-term current use of insulin (HCC); Hypoglycemia due to type 2 diabetes mellitus (HCC); Essential hypertension; Mixed hyperlipidemia; Class 3 severe obesity with serious comorbidity and body mass index (BMI) of 40.0 to 44.9 in adult, unspecified obesity type (HCC) Start: 12-27-2023 End: 12-27-2023 ambulatory [facility] PORTFOLIO MGR.VERTICAL BORER Work Phone: Endocrinology Comment on above: Alonso sensors Start: 12-24-2023 End: 12-24-2023 ambulatory MELISSA CAMARA Facility:[facility] Start: 12-24-2023 End: 12-24-2023 Patient encounter procedure Melissa Camara PA-C Work Phone: Orthopaedics Comment on above: Bilateral carpal lamin amrit syndrome (Primary Dx) Start: 12-23-2023 End: 12-23-2023 Telephone encounter Melissa Camara PA-C Work Phone: [address] [place] [address] Comment on above: Appointment Start: 12-11-2023 ambulatory REJI MANSFIELD Facility :[facility] Start: 12-11-2023 End: 12-11-2023 Subsequent hospital visit by physician Reji Mansfield MD Work Phone: [facility] Surgery Comment on above: Bilateral carpal lamin amrit syndrome [G56.03] Start: 12-06-2023 Telephone encounter Srikanth Ly APRN.CNP Work Phone: Pre Anesthesia Comment on above: Request Outside [facility] Start: 12-06-2023 End: 12-06-2023 Admission to establishment Pacc Archana 1 Work Phone: Pre Anesthesia Start: 12-06-2023 End: 12-06-2023 ambulatory RICARDO ABRAHAM Facility:[facility] Start: 12-06-2023 End: 12-06-2023 Anesthesia consultation Pacc Archana 1 Work Phone: Pre Anesthesia Comment on above: Pre-operative examin ation (Primary Dx); Type 2 diabetes mellitus with diabetic polyneuropathy, with long-term current use of insulin (HCC); Class 3 severe obesity with serious comorbidity and body mass index (BMI) of 40.0 to 44.9 in adult, unspecified obesity type (HCC); Sleep apnea, unspecified type; Essential hypertension; Mixed hyperlipidemia; Pulmonary nodule; Smoker; Coronary artery disease involving [place] coronary artery of [place] heart without angina pectoris; History of total knee replacement, right Start: 12-06-2023 End: 12-06-2023 Preprocedural examination done Pacc Archana 1 Work Phone: [facility] Work Phone: Start: 11-26-2023 Telephone encounter Reji villa MD Work Phone: Orthopaedics Comment on above: Schedule Surgery Start: 11-26-2023 End: 11-26-2023 ambulatory REJI MANSFIELD Facility:[facility] Start: 11-26-2023 End: 11-26-2023 Patient encounter procedure Reji Mansfield MD Work Phone: Orthopaedics Comment on above: Bilateral carpal lamin amrit syndrome (Primary Dx) Start: 11-25-2023 Refill Sharlene Kupie c PORTFOLIO MGR.VERTICAL BORER Work Phone: Endocrinology Comment on above: Med Change Request Start: 11-03-2023 Refill Sharlene Kupie c PORTFOLIO MGR.VERTICAL BORER Work Phone: Endocrinology Comment on above: Refill Request Start: 10-10-2023 Telephone encounter Sharlene pizano PORTFOLIO MGR.VERTICAL BORER Work Phone: Endocrinology Comment on above: office notes request ([facility]) Start: 10-01-2023 Telephone encounter Reji villa MD Work Phone: Orthopaedics Comment on above: Appointment Start: 09-27-2023 Telephone encounter Sharlene pizano PORTFOLIO MGR.VERTICAL BORER Work Phone: Endocrinology Comment on above: Dilated Eye Exam Rep ort ([facility]) Start: 09-01-2023 ambulatory Sharlene Kupie c PORTFOLIO MGR.VERTICAL BORER Work Phone: Endocrinology Comment on above: Mounjaro Start: 08-26-2023 ambulatory Sharlene Kupie c PORTFOLIO MGR.VERTICAL BORER Work Phone: Endocrinology Comment on above: Rybelsus Start: 08-22-2023 ambulatory Sharlene Kupie c PORTFOLIO MGR.VERTICAL BORER Work Phone: Endocrinology Comment on above: Mounjaro Start: 08-22-2023 Telephone encounter Sharlene pizano PORTFOLIO MGR.VERTICAL BORER Work Phone: Endocrinology Comment on above: Medication Problem Start: 08-21-2023 ambulatory Sharlene Kupie c PORTF[employer]IO MGR.VERTICAL BORER Work Phone: Endocrinology Comment on above: Anita Diaz Start: 08-21-2023 E-mail encounter fro m caregiver Sharlene Escobar APRN.VERTICAL BORER Work Phone: [facility] Start: 08-09-2023 End: 08-09-2023 ambulatory Emg 850) Neurology Comment on above: EMG Start: 08-09-2023 End: 08-09-2023 Patient encounter procedure Emg 2 Neur [facility] (Max Weight: 850) [facility] Start: 07-25-2023 Admission to [facility] Sharlene Escobar PORTFOLIO MGR.VERTICAL BORER Work Phone: Endocrinology Comment on above: Knee surgery Start: 07-25-2023 ambulatory Sharlene lisa APRN.VERTICAL BORER Work Phone: [facility] Start: 07-24-2023 Telephone encounter Sharlene pizano APRN.VERTICAL BORER Work Phone: Endocrinology Comment on above: PA--FIASP FLEXTOUCH (APPROVED) Start: 07-17-2023 Non-patient / Non-visit MD ERIC ABRAHAM Work Phone: [facility] Work Phone: Start: 07-17-2023 End: 07-18-2023 Evaluation and management of inpatient MD RICARDO ABRAHAM Work Phone: [facility]-Medical Surgical 3 Work Phone: Start: 07-17-2023 End: 07-18-2023 observation encounter MD RICARDO ABRAHAM Work Phone: [facility] Work Phone: Start: 07-05-2023 End: 07-05-2023 ambulatory [facility] Work Phone: Start: 07-05-2023 End: 07-05-2023 Patient encounter procedure [facility]-Cat Scan, [facility] Work Phone: Start: 06-24-2023 Refill Sharlene lisa PORTFOLIO MGR.VERTICAL BORER Work Phone: Endocrinology Comment on above: Refill Request Asking Start: 06-24-2023 Refill Sharlene lisa [employer]IO MGR.VERTICAL BORER Work Phone: Endocrinology Comment on above: Refill Request Start: 06-18-2023 Orders Only Ricardo Abraham MD Neurol ogy Comment on above: Bilateral carpal lamin amrit syndrome (Primary Dx) Start: 06-04-2023 End: 06-04-2023 ambulatory MD RICARDO ABRAHAM Work Phone: [facility] Work Phone: Start: 06-04-2023 End: 06-04-2023 Discharged Recurring MD RICARDO ABRAHAM Work Phone: [facility]-Physical Therapy Work Phone: Start: 06-04-2023 Registered Recurring [facility] Work Phone: Start: 04-24-2023 End: 04-24-2023 ambulatory RICARDO ABRAHAM Facility:[facility] Start: 04-09-2023 Telephone encounter Sharlene pizano PORTFOLIO MGR.VERTICAL BORER Work Phone: Endocrinology Comment on above: Insurance Authorizat ion (Mounjaro 5 mg and 7.5 mg ) Start: 03-21-2023 End: 03-21-2023 [facility] Work Phone: Start: 03-21-2023 End: 03-21-2023 Patient encounter procedure [facility]-Radiology, [facility] Work Phone: Start: 03-08-2023 Telephone encounter Sharlene pizano PORTFOLIO MGR.VERTICAL BORER Work Phone: Endocrinology Comment on above: Diabetic Eye Exam (05/07/2022) Start: 02-22-2023 Telephone encounter Sharlene pizano PORTFOLIO MGR.VERTICAL BORER Work Phone: Endocrinology Comment on above: [facility] (Request for last office note) Start: 01-10-2023 End: 01-10-2023 ambulatory [facility] Work Phone: Start: 01-10-2023 End: 01-10-2023 Patient encounter procedure [facility], [place] Work Phone: Start: 12-21-2022 End: 12-21-2022 Admission to same day surgery center [facility] Comment on above: Surgery today @[facility] Start: 12-21-2022 End: 12-21-2022 ambulatory Sharlene Escobar PORTFOLIO MGR.VERTICAL BORER Work Phone: [facility] Work Phone: Start: 12-10-2022 End: 12-10-2022 ambulatory [facility] Work Phone: Start: 12-10-2022 End: 12-10-2022 Patient encounter procedure [facility], [place] Work Phone: Start: 11-09-2022 Telephone encounter Sharlene pizano PORTFOLIO MGR.VERTICAL BORER Work Phone: Endocrinology Comment on above: PA--Ozempic Start: 08-24-2022 End: 08-24-2022 Patient encounter procedure Sharlene Escobar PORTFOLIO MGR.VERTICAL BORER Work Phone: Endocrinology Comment on above: Type 2 diabetes phuc itus with diabetic polyneuropathy, with long-term current use of insulin (HCC) (Primary Dx); 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d by mild nonproliferative retinopathy and macular edema, with long-term current use of insulin (HCC); Vitamin D deficiency; Essential hypertension; Mixed hyperlipidemia; Class 3 severe obesity with serious comorbidity and body mass index (BMI) of 40.0 to 44.9 in adult, unspecified obesity type (HCC) Start: 08-14-2022 End: 08-14-2022 ambulatory [facility] Work Phone: Start: 08-14-2022 End: 08-14-2022 Patient encounter procedure [facility], [place] Start: 06-29-2022 End: 06-29-2022 Patient encounter procedure Sharlene Escobar PORTFOLIO MGR.VERTICAL BORER Work Phone: Endocrinology Comment on above: Type 2 diabetes phuc itus with diabetic polyneuropathy, with long-term current use of insulin (HCC) (Primary Dx); 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d by mild nonproliferative retinopathy and macular edema, with long-term current use of insulin (HCC); Vitamin D deficiency; Essential hypertension; Mixed hyperlipidemia; Class 3 severe obesity with serious comorbidity and body mass index (BMI) of 45.0 to 49.9 in adult, unspecified obesity type (HCC) Start: 06-20-2022 ambulatory Sharlene lisa PORTFOLIO MGR.VERTICAL BORER Work Phone: Endocrinology Comment on above: Insulin Calls Start: 06-19-2022 ambulatory Sharlene lisa PORTFOLIO MGR.VERTICAL BORER Work Phone: Endocrinology Comment on above: Insulin liber 2 Start: 06-08-2022 End: 06-08-2022 ambulatory [facility] Work Phone: Start: 06-08-2022 End: 06-08-2022 Patient encounter procedure [facility] Start: 06-04-2022 Admission to [facility] Sharlene Escobar PORTFOLIO MGR.VERTICAL BORER Work Phone: Endocrinology Comment on above: Toe surgery Start: 06-04-2022 ambulatory Sharlene lisa PORTFOLIO MGR.VERTICAL BORER Work Phone: Endocrinology Comment on above: Meter and insulin Start: 06-03-2022 ambulatory Sharlene lisa PORTFOLIO MGR.VERTICAL BORER Work Phone: Endocrinology Comment on above: Meter and insulin Start: 06-01-2022 End: 06-01-2022 Admission to same day surgery center [facility] Start: 06-01-2022 End: 06-01-2022 ambulatory [facility] Work Phone: Start: 05-30-2022 Refill Sharlene lisa PORTFOLIO MGR.VERTICAL BORER Work Phone: Endocrinology Comment on above: Refill Request request of Office no henry ([facility]) Start: 01-20-2023 Telephone encounter Sharlene pizano APRN.VERTICAL BORER Work Phone: Endocrinology Comment on above: Diabetic Eye Exam Start: 05-25-2022 End: 05-25-2022 Patient encounter procedure Sharlene Escobar APRN.VERTICAL BORER Work Phone: Endocrinology Comment on above: Type 2 diabetes phuc itus with diabetic polyneuropathy, with long-term current use of insulin (HCC) (Primary Dx); 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d by mild nonproliferative retinopathy and macular edema, with long-term current use of insulin (HCC); Vitamin D deficiency; Essential hypertension; Mixed hyperlipidemia; Class 3 severe obesity with serious comorbidity and body mass index (BMI) of 45.0 to 49.9 in adult, unspecified obesity type ([facility]LY [facility]) Start: 05-15-2022 End: 05-15-2022 ambulatory [facility] Work Phone: Start: 05-15-2022 End: 05-15-2022 [facility]charged [facility] Start: 05-01-2022 End: 05-05-2022 ambulatory [facility] Work Phone: Start: 05-01-2022 End: 05-05-2022 [facility] Start: 04-03-2022 End: 04-04-2022 ambulatory [facility] Work Phone: Start: 04-03-2022 End: 04-04-2022 Discharged Recurring [facility] Start: 02-27-2022 End: 03-05-2022 [facility] Work Phone: Start: 02-27-2022 End: 03-05-2022 [facility]charged [facility] Start: 02-20-2022 ambulatory Sharlene lisa APRN.VERTICAL BORER Work Phone: [facility] Start: 02-20-2022 Patient encounter procedure Sharlene Escobar PORTFOLIO MGR.VERTICAL BORER Work Phone: Endocrinology Comment on above: Unable to make appoi ntment today Start: 01-10-2022 End: 02-02-2022 ambulatory [facility] Work Phone: Start: 01-10-2022 End: 02-02-2022 [facility]charged [facility] Start: 01-07-2022 Refill Sharlene lisa APRN.CNP Work Phone: Endocrinology Comment on above: Refill Request Start: 01-03-2022 End: 01-03-2022 ambulatory [facility] Work Phone: Start: 01-03-2022 End: 01-03-2022 Discharged Recurring [facility] Start: 11-29-2021 End: 12-03-2021 [facility]charged [facility] Start: 11-17-2021 End: 11-17-2021 Patient encounter procedure [facility] Start: 11-15-2021 [facility] Start: 11-14-2021 End: 11-14-2021 Patient encounter procedure Sharlene Escobar APRN.VERTICAL BORER Work Phone: Endocrinology Comment on above: Type 2 diabetes phuc itus with diabetic polyneuropathy, with long-term current use of insulin (HCC) (Primary Dx); Vitamin D deficiency; Essential hypertension; Mixed hyperlipidemia; Class 3 severe obesity with serious comorbidity and body mass index (BMI) of 45.0 to 49.9 in adult, unspecified obesity type (HCC) Start: 11-14-2021 Telephone encounter Sharlene pizano APRN.CNP Work Phone: Endocrinology Comment on above: Insurance Authorizat ion (Ozempic) Start: 11-01-2021 End: 11-02-2021 Discharged Recurring [facility] Start: 10-09-2021 Refill Sharlene lisa APRN.CNP Work Phone: Endocrinology Comment on above: Refill Request Start: 09-27-2021 End: 10-03-2021 Discharged Recurring [facility] Start: 09-20-2021 [facility] Start: 09-19-2021 End: 09-19-2021 Patient encounter procedure [facility] Start: 08-30-2021 End: 09-02-2021 Discharged Recurring [facility] Start: 08-18-2021 Telephone encounter Sharlene Perdomo harinder PORTFOLIO MGRSandyVERTICAL BORER Work Phone: Endocrinology Comment on above: Insurance Authorizat ion (Trulicity) Start: 10-07-2020 End: 10-07-2020 Emergency department patient visit Meredith Tinoco MD Work Phone: [facility] Comment on above: Diabetic foot infect ion (HCC) (Primary Dx) Start: 05-08-2019 End: 05-08-2019 Emergency department patient visit Chalino Jackson DO Work Phone: [facility] Comment on above: Septicemia (HCC) (Pr imary Dx); Altered metabolism due to diabetes (HCC); Pneumonia due to organism; COPD exacerbation (HCC); Left against medical advice Start: 12-30-2017 End: 12-31-2017 ambulatory UNKNOWN PROVIDER Facility:[facility] Start: 12-05-2017 Patient encounter Leticia Rolf rodriguez:[facility] Start: 12-05-2017 Patient encounter REFERRED *SELF Fac ility:[id number] Start: 11-14-2017 Patient encounter Leticia Laujanna rodriguez:[facility] Start: 11-14-2017 Patient encounter REFERRED *SELF Fac ility:[id number] Start: 09-03-2017 Patient encounter Evelin Raygoza Facility:[id number] Start: 08-02-2017 Patient encounter Evelin Raygoza Facility:[id number] Start: 07-05-2017 Patient encounter Evelin Raygoza Facility:[id number] Start: 06-07-2017 Patient encounter Evelin Raygoza Facility:[id number] Start: 05-09-2017 Patient encounter Evelin Raygoza Facility:[id number] Start: 04-11-2017 Patient encounter Evelin Raygoza Facility:[id number] Start: 04-09-2017 Patient encounter Evelin Raygoza Facility:[id number] Start: 03-21-2017 Patient encounter Evelin Raygoza Facility:[id number] Start: 03-08-2017 Patient encounter Evelin Raygoza Facility:[id number] Procedures Date Procedure Procedure Detail Performing Clinician Start: 07-02-2024 Hemoglobin A1c/Hemoglobin.total in Blood Sharlene Imtiazc PORTFOLIO MGR.VERTICAL BORER Work Phone: Start: 12-31-2023 Hemoglobin A1c/Hemoglobin.total in Blood Sharlene Kitchenc PORTFOLIO MGR.VERTICAL BORER Work Phone: Start: 12-11-2023 Gluc bld gluc mntr d ev cleared fda spec home use Reji Mansfield MD Work Phone: Start: 12-11-2023 Gluc bld gluc mntr d ev cleared fda spec home use Reji Mansfield MD Work Phone: Start: 08-09-2023 Nerve conduction rosanna dies 5-6 studies Valeria Mercer MD Work Phone: Start: 07-17-2023 Radiologic examinati on of knee MD RICARDO ABRAHAM Work Phone: Start: 07-17-2023 Total Knee Replaceme nt Robotic Arm Erick (Right) MD RICARDO ABRAHAM Work Phone: Start: 07-05-2023 MRI of lower extremity Start: 07-05-2023 Urine culture MD IRCARDO ABRAHAM Work Phone: Start: 07-02-2023 Nasal Screen MRSA/MSSA MD RICARDO ABRAHAM Work Phone: Start: 03-21-2023 Plain X-ray of tibia and fibula Start: 03-21-2023 Radiologic examinati on of knee Start: 01-10-2023 Anaerobic microbial culture Start: 01-10-2023 Investigation of transfusion reaction Start: 01-10-2023 Microbial culture, routine Start: 12-21-2022 Fluoroscopic guidance Start: 12-21-2022 Radiography of ankle Start: 12-21-2022 Repair of tendo achilles Start: 12-10-2022 Plain chest X-ray Start: 08-24-2022 Hemoglobin A1c/Hemoglobin.total in Blood Sharlene Kitchenc PORTFOLIO MGR.VERTICAL BORER Work Phone: Start: 06-01-2022 Arthroplasty of toe Start: 06-01-2022 Fluoroscopic guidance Start: 06-01-2022 X-ray of both feet Start: 05-25-2022 Hemoglobin A1c/Hemoglobin.total in Blood Sharlene Finn PORTFOLIO MGR.VERTICAL BORER Work Phone: Start: 11-17-2021 MRI of joint of lowe r extremity Start: 11-14-2021 Hemoglobin A1c/Hemoglobin.total in Blood Sharlenearabella Escobar PORTFOLIO MGR.VERTICAL BORER Work Phone: Start: 10-07-2020 Radex foot complete minimum 3 views Meredith Tinoco MD Work Phone: Start: 10-07-2020 Comprehensive metabo lic panel Meredith Tinoco MD Work Phone: Start: 05-08-2019 Comprehensive metabo lic panel Chalino Penningtonisinger DO Work Phone: Start: 05-08-2019 Iaadiadoo influenza Jan ledy Alyse Renetta DO Work Phone: Start: 05-08-2019 Ecg routine ecg w/le ast 12 lds w/i&r Chalino Penningtonisinger DO Work Phone: Start: 05-08-2019 Radiologic exam ches t 2 views Chalino Jackson DO Work Phone: Start: 12-30-2017 Fluor needle/cath spine/paraspinal dx/ther addon UNKNOWN PROVIDER Start: 12-30-2017 PAIN MANAGEMENT PROC EDURE SERVICE REQUEST UNKNOWN PROVIDER Start: 12-30-2017 PHYS THERAPY ADULT EVAL/TREAT SERVICE RQST UNKNOWN PROVIDER Start: 12-30-2017 [facility] WEIGHT MANAGE MENT SERVICE REQUEST UNKNOWN PROVIDER Start: 11-01-2015 Colonoscopy Sharlene pizano PORTFOLIO MGR.VERTICAL BORER Work Phone: Anaerobic microbial culture Investigation of transfusion reaction Investigation of transfusion reaction Microbial culture, routine Microbial culture, routine Plan of Treatment Date Care Activity Detail Author Start: 10-31-2025 Colonoscopy COLONOSCOPY [facility] Start: 10-31-2025 COLORECTAL CANCER SCREENING COLORECTAL CANCER SCREENING [facility] Start: 10-31-2025 Screening for malignant neoplasm of colon [facility] Start: 01-04-2025 Influenza vaccination Influenza Vaccine (Season Ended) [facility] Start: 12-31-2024 End: 12-31-2024 Patient encounter procedure 12/31/2024 1:00 PM EDT Office Visit Endocrinology [address] [address] Sharlene Escobar APRN.VERTICAL BORER [address] [address] 6 month follow up Endocrinology Comment on above: 6 month follow up Start: 12-30-2024 Hemoglobin A1c measurement HbA1C [facility] Start: 12-05-2024 BP Controlled (<130/80) BP Controlled (<130/80) [facility] in Start: 09-25-2024 Glaucoma screening Dilated Retinal Exam [facility] Start: 07-14-2024 End: 07-14-2024 FQHC visit new patient 07/14/2024 1:20 PM EDT Visit (SP) Office Hematology/Oncology [address] [address] [place] [address] [place] [address] new patient Hematology/Oncology Comment on above: new patient Start: 07-10-2024 End: 07-10-2024 ambulatory 07/10/2024 1:30 PM EST Results Only [facility] [address] [place] [address] [facility] Start: 07-03-2024 End: 10-02-2024 25-hydroxyvitamin D3 [Mass/volume] in Serum or Plasma VITAMIN D 25 HYDROXY Lab Routine Vitamin D deficiency Expected: 07/03/2024 (Approximate), Expires: 10/02/2024 [facility] Comment on above: Expected: 07/03/2024 (Approximate), Expi res: 10/02/2024 Start: 07-03-2024 End: 10-02-2024 Comprehensive metabolic 2000 panel - Serum or Plasma COMPREHENSIVE METABOLIC PANEL Lab Routine 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, with long-term current use of insulin (HCC) Type 2 diabetes mellitus with diabetic polyneuropathy, with long-term current use of insulin (HCC) Type 2 diabetes mellitus with microalbuminuria, with long-term current use of insulin (HCC) Expected: 07/03/2024 (Approximate), Expires: 10/02/2024 [facility] Work Phone: Comment on above: Expected: 07/03/2024 (Approximate), Expi res: 10/02/2024 Start: 07-03-2024 End: 10-02-2024 Lipid 1996 panel - Serum or Plasma LIPID PANEL BASIC Lab Routine 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, with long-term current use of insulin (HCC) Type 2 diabetes mellitus with diabetic polyneuropathy, with long-term current use of insulin (HCC) Type 2 diabetes mellitus with microalbuminuria, with long-term current use of insulin (HCC) Expected: 07/03/2024 (Approximate), Expires: 10/02/2024 [facility] Comment on above: Expected: 07/03/2024 (Approximate), Expi res: 10/02/2024 Start: 07-03-2024 End: 10-02-2024 Microalbumin/Creatinine [Mass Ratio] in Urine ALBUMIN/CREATININE RATIO, URINE Lab Routine 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, with long-term current use of insulin (HCC) Type 2 diabetes mellitus with diabetic polyneuropathy, with long-term current use of insulin (HCC) Type 2 diabetes mellitus with microalbuminuria, with long-term current use of insulin (HCC) Expected: 07/03/2024 (Approximate), Expires: 10/02/2024 [facility] Comment on above: Expected: 07/03/2024 (Approximate), Expi res: 10/02/2024 Start: 07-03-2024 End: 10-02-2024 Thyrotropin [Units/volume] in Serum or Plasma THYROID STIMULATING HORMONE Lab Routine 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, with long-term current use of insulin (HCC) Type 2 diabetes mellitus with diabetic polyneuropathy, with long-term current use of insulin (HCC) Type 2 diabetes mellitus with microalbuminuria, with long-term current use of insulin (HCC) Abnormal results of thyroid function studies Expected: 07/03/2024 (Approximate), Expires: 10/02/2024 [facility] Comment on above: Expected: 07/03/2024 (Approximate), Expi res: 10/02/2024 Start: 07-03-2024 End: 10-02-2024 Thyroxine (T4) free [Mass/volume] in Serum or Plasma T4 FREE/FREE THYROXINE Lab Routine 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, with long-term current use of insulin (HCC) Type 2 diabetes mellitus with diabetic polyneuropathy, with long-term current use of insulin (HCC) Type 2 diabetes mellitus with microalbuminuria, with long-term current use of insulin (HCC) Abnormal results of thyroid function studies Expected: 07/03/2024 (Approximate), Expires: 10/02/2024 [facility] Comment on above: Expected: 07/03/2024 (Approximate), Expi res: 10/02/2024 Start: 07-02-2024 Hemoglobin A1c measurement HbA1C [facility] Start: 07-02-2024 End: 07-02-2024 Patient encounter procedure 07/02/2024 1:00 PM EST Office Visit Endocrinology [address] [address] Sharlene Escobar, DANN.VERTICAL BORER [address] [address] 6 month follow up Endocrinology Comment on above: 6 month follow up Start: 04-24-2024 Hepatitis B screening Urine Albumin:Creatinine Ratio [facility] Start: 04-24-2024 Hepatitis B surface antibody level LDL Cholesterol [facility] Start: 03-07-2024 Glaucoma screening Dilated Retinal Exam [facility] Start: 03-07-2024 Hepatitis C antibody, confirmatory test Dilated Retinal Exam [facility] Start: 02-07-2024 End: 02-07-2024 ambulatory 02/07/2024 2:15 PM EDT Results Only [facility] [address] [place] [address] [facility] Start: 01-20-2024 End: 01-20-2024 Patient encounter procedure 01/20/2024 9:45 AM EDT Office Visit Orthopaedics [address] [place] [address] Reji Mansfield MD [address] [place] [address] Post op Bilateral CTR Orthopaedics Comment on above: Post op Bilateral CTR Start: 01-16-2024 End: 01-16-2024 Patient encounter procedure 01/16/2024 2:45 PM EDT Office Visit Endocrinology [address] [address] Sharlene Escobar APRN.VERTICAL BORER [address] [address] FOLLOW UP Endocrinology Comment on above: FOLLOW UP Start: 01-05-2024 Covid-19 Vaccine ( season) Covid-19 Vaccine () [facility] Start: 01-05-2024 Influenza vaccination [facility] Start: 12-24-2023 End: 12-24-2023 Patient encounter procedure 12/24/2023 1:30 PM EDT Office Visit Orthopaedics [address] [address] Melissa Camara PA-C [address] [place] [address] Post op Bilateral CTR Orthopaedics Comment on above: Post op Bilateral CTR Start: 12-23-2023 End: 12-23-2023 Patient encounter procedure 12/23/2023 10:45 AM EDT Office Visit Orthopaedics [address] [place] [address] Melissa Camara PA-C [address] [place] [address] Post op Bilateral CTR Orthopaedics Comment on above: Post op Bilateral CTR Start: 12-11-2023 End: 12-11-2023 Admission to same day surgery center [facility] Surgery Comment on above: DECOMPRESSION NERVE MEDIAN CARPAL TUNNEL Start: 12-11-2023 End: 12-11-2023 Neuroplasty &/transpos median nrv carpal [place] Start: 12-11-2023 Subsequent hospital visit by physician [facility] Surgery Comment on above: Bilateral carpal tunnel syndrome [G56.03 ] Start: 12-06-2023 End: 12-06-2023 Anesthesia consultation 12/06/2023 1:40 PM EDT PAT Pre Anesthesia [address] [place] [address] 1, P[facility] [place] [address] [place] [address] Pt declined VV Pre Anesthesia Comment on above: Pt declined VV Start: 11-26-2023 End: 11-26-2023 Patient encounter procedure 11/26/2023 11:45 AM EDT Office Visit Orthopaedics [address] [address] Reji Mansfield MD [address] [place] [address] Bilat carpal tunnel surgery consult Orthopaedics Comment on above: Bilat carpal tunnel surgery consult Start: 11-19-2023 End: 11-19-2023 Patient encounter procedure 11/19/2023 11:00 AM EDT Office Visit Orthopaedics [address] [address] Reji Mansfield MD [address] [place] [address] Bilat carpal tunnel surgery consult Orthopaedics Comment on above: Bilat carpal tunnel surgery consult Start: 10-24-2023 Hemoglobin A1c measurement HbA1C [facility] Start: 08-25-2023 BP CONTROLLED (<130/80) BP CONTROLLED (<130/80) [facility] in Start: 07-18-2023 Provision of overbed trapeze [facility] Start: 07-18-2023 Patient discharge [facility] Start: 07-17-2023 Following clinical pathway protocol [facility] Start: 07-17-2023 Care regimes management [facility] Start: 07-17-2023 Notification of physician [facility] Start: 07-17-2023 Application of intermittent pneumatic compression device [facility] Start: 07-17-2023 Anesth open/surg arthrs total knee arthroplasty ANESTH KNEE ARTHROPLASTY [facility] Start: 07-17-2023 Arthrp kne condyle&platu medial&lat compartments TOTAL KNEE ARTHROPLASTY [facility] Start: 07-17-2023 Injection aa&/strd femoral nerve NJX AA&/STRD FEMORAL NRV IMG [facility] Start: 07-17-2023 Ambulation therapy management [facility] Start: 07-17-2023 Application of device [facility] Start: 07-17-2023 Application of elastic bandage [facility] Start: 07-17-2023 Assessment of risk of venous thromboembolism [facility] Start: 07-17-2023 Catheterization of vein [facility] Start: 07-17-2023 Consultation [facility] Start: 07-17-2023 Exercises [facility] Start: 07-17-2023 Following clinical pathway protocol [facility] Start: 07-17-2023 Incentive spirometry [facility] Start: 07-17-2023 Introduction of urinary catheter [facility] Start: 07-17-2023 Measuring intake and output [facility] Start: 07-17-2023 Neurovascular assessment [facility] Start: 07-17-2023 Patient education [facility] Start: 07-17-2023 Procedure discontinued [facility] Start: 07-17-2023 Provision of activity privileges [facility] Start: 07-17-2023 Provision of overbed trapeze [facility] Start: 07-17-2023 Recommendation to continue with treatment [facility] Start: 07-17-2023 Referral to occupational therapist [facility] Start: 07-17-2023 Referral to service [facility] Start: 07-17-2023 Vital signs measurements [facility] Start: 07-17-2023 Wound care [facility] Start: 07-17-2023 End: 07-17-2023 [facility] Start: 07-17-2023 Admission procedure [facility] Start: 05-24-2023 Hepatitis C antibody, confirmatory test DILATED RETINAL EXAM [facility] Start: 05-06-2023 Behavioral Health Screening Behavioral Health Screening [facility] Start: 05-06-2023 Depression Assessment Depression Assessment [facility] Start: 02-23-2023 Hemoglobin A1c/Hemoglobin.total in Blood HBA1C [facility] Start: 01-04-2023 Covid-19 Vaccine () Covid-19 Vaccine () [facility] Start: 01-04-2023 Influenza vaccination [facility] Start: 12-21-2022 Anes rpr ruptured achilles tendon w/wo graft ANESTH ACHILLES TENDON SURG [facility] Start: 12-21-2022 Rpr primary open/prq ruptured achilles w/graft REPAIR/GRAFT ACHILLES TENDON [facility] Start: 12-21-2022 Radiography of ankle Ankle 2 Views [facility] Start: 12-21-2022 XR Ankle 2 Views [facility] [facility] Start: 12-21-2022 Patient discharge [facility] Start: 11-14-2022 BP CONTROLLED (<130/80) BP CONTROLLED (<130/80) [facility] Start: 08-23-2022 Hemoglobin A1c/Hemoglobin.total in Blood HBA1C [facility] Start: 06-01-2022 Anes open proc bones lower leg/ankle/foot nos ANESTH LOWER LEG BONE SURG [facility] Start: 06-01-2022 Arthrodesis great toe interphalangeal joint FUSION OF BIG TOE JOINT [facility] Start: 06-01-2022 Debridement subcutaneous tissue 20 sq cm/< FAITH SUBQ TISSUE 20 SQ CM/< [facility] Start: 06-01-2022 Patient discharge [facility] Start: 06-01-2022 X-ray of both feet Foot min 3 Views [facility] Start: 06-01-2022 XR Foot GE 3 Views [facility] Start: 05-06-2022 DEPRESSION ASSESSMENT DEPRESSION ASSESSMENT [facility] Start: 03-09-2022 3 comp foot exam completed DIABETIC FOOT EXAM [facility] Start: 03-09-2022 Diabetic foot examination Diabetic Foot Exam [facility] Start: 02-14-2022 Hemoglobin A1c/Hemoglobin.total in Blood HBA1C [facility] Start: 01-04-2022 Influenza vaccination INFLUENZA (#1) [facility] Start: 11-22-2021 End: 01-22-2022 25-hydroxyvitamin D3 [Mass/volume] in Serum or Plasma VITAMIN D 25 HYDROXY Lab Routine Type 2 diabetes mellitus with diabetic polyneuropathy, with long-term current use of insulin (HCC) Vitamin D deficiency Expected: 11/22/2021 (Approximate), Expires: 01/22/2022 [facility] Work Phone: Comment on above: Expected: 11/22/2021 (Approximate), Expi res: 01/22/2022 Start: 11-22-2021 End: 01-22-2022 ALBUMIN/CREAT RATIO RND UR ALBUMIN/CREAT RATIO RND UR Lab Routine Type 2 diabetes mellitus with diabetic polyneuropathy, with long-term current use of insulin (HCC) Expected: 11/22/2021 (Approximate), Expires: 01/22/2022 [facility] Work Phone: Comment on above: Expected: 11/22/2021 (Approximate), Expi res: 01/22/2022 Start: 11-22-2021 End: 01-22-2022 Comprehensive metabolic 2000 panel - Serum or Plasma COMP METABOLIC PANEL Lab Routine Type 2 diabetes mellitus with diabetic polyneuropathy, with long-term current use of insulin (HCC) Expected: 11/22/2021 (Approximate), Expires: 01/22/2022 [facility] Work Phone: Comment on above: Expected: 11/22/2021 (Approximate), Expi res: 01/22/2022 Start: 11-22-2021 End: 01-22-2022 Lipid 1996 panel - Serum or Plasma LIPID PANEL BASIC Lab Routine Type 2 diabetes mellitus with diabetic polyneuropathy, with long-term current use of insulin (HCC) Mixed hyperlipidemia Expected: 11/22/2021 (Approximate), Expires: 01/22/2022 [facility] Work Phone: Comment on above: Expected: 11/22/2021 (Approximate), Expi res: 01/22/2022 Start: 11-22-2021 End: 01-22-2022 Thyrotropin [Units/volume] in Serum or Plasma TSH BLD Lab Routine Type 2 diabetes mellitus with diabetic polyneuropathy, with long-term current use of insulin (HCC) Expected: 11/22/2021 (Approximate), Expires: 01/22/2022 [facility] Work Phone: Comment on above: Expected: 11/22/2021 (Approximate), Expi res: 01/22/2022 Start: 10-07-2021 Creatinine measurement Creatinine monitoring [facility] Work Phone: Start: 10-07-2021 Potassium monitoring Potassium monitoring [facility] Work Phone: Start: 06-09-2021 Hemoglobin A1c/Hemoglobin.total in Blood HBA1C [facility] Start: 05-06-2021 DEPRESSION ASSESSMENT DEPRESSION ASSESSMENT [facility] Start: 01-04-2021 Hepatitis B screening URINE ALBUMIN:CREATININE RATIO [facility] Start: 01-04-2021 Hepatitis B surface antibody level LDL CHOLESTEROL [facility] Start: 01-04-2021 Influenza vaccination Flu vaccine (Season Ended) [facility] Work Phone: Start: 2020 Hepatitis B Vaccine (1 of 3 - Risk 3-dose series) Hepatitis B Vaccine (1 of 3 - Risk 3-dose series) [facility] Start: 2020 RSV Vaccine (1 - 1-dose 60+ series) RSV Vaccine (1 - 1-dose 60+ series) [facility] Start: 2020 RSV Vaccine (1 - Risk 60-74 years 1-dose series) RSV Vaccine (1 - Risk 60-74 years 1-dose series) [facility] Start: 05-20-2019 Hepatitis C antibody, confirmatory test DILATED RETINAL EXAM [facility] Start: 01-04-2019 Influenza vaccination Flu vaccine (#1) [facility] Work Phone: Start: 10-26-2018 Annual Wellness Visit (AWV) Annual Wellness Visit (AWV) [facility] Work Phone: Start: 11-18-2016 PROSTATE CANCER SCREENING DISCUSSION PROSTATE CANCER SCREENING DISCUSSION [facility] Start: 11-18-2016 Prostate specific antigen measurement Prostate Cancer Screening Discussion [facility] Start: 2010 Colon cancer screen colonoscopy Colon cancer screen colonoscopy [facility] Work Phone: Start: 2010 Screening for malignant neoplasm of colon Colon cancer screen colonoscopy [facility] Work Phone: Start: 2010 Shingles Vaccine (1 of 2) Shingles Vaccine (1 of 2) [facility] Work Phone: Start: 2010 SHINGRIX VACCINE (1 of 2) SHINGRIX VACCINE (1 of 2) [facility] Start: 2005 COLOGUARD (FIT-DNA) COLOGUARD (FIT-DNA) [facility] Start: [address] COLONOGRAPHY [facility] Start: 2005 FECAL OCCULT BLOOD FECAL OCCULT BLOOD [facility] Start: 2005 Screening for malignant neoplasm of colon [facility] Start: 2005 SIGMOIDOSCOPY SIGMOIDOSCOPY [facility] Start: 2000 Diabetes screen Diabetes screen [facility] Work Phone: Start: 2000 Lipid panel Lipid screen [facility] Work Phone: Start: 2000 Lipid screen Lipid screen [facility] Work Phone: Start: 09-24-1979 DTaP/Tdap/Td vaccine (1 - Tdap) DTaP/Tdap/Td vaccine (1 - Tdap) [facility] Work Phone: Start: 09-24-1979 Pneumococcal Vaccine: 50+ (1 of 2 - PCV) Pneumococcal Vaccine: 50+ (1 of 2 - PCV) [facility] Start: 09-24-1979 Urine microalbumin profile [facility] Start: 1978 ANNUAL PCP TEAM CHRONIC DISEASE VISIT ANNUAL PCP TEAM CHRONIC DISEASE VISIT [facility] Start: 1978 Anxiety Screening Anxiety Screening [facility] Start: 1978 BP CONTROLLED (<130/80) BP CONTROLLED (<130/80) [facility] Start: 1978 Depression Screening Depression Screening [facility] Start: 1978 HEPATITIS C SCREENING HEPATITIS C SCREENING [facility] Start: 1978 Hepatitis C screening Hepatitis C Screening [facility] Start: 1978 HIV SCREENING HIV SCREENING [facility] Start: 1978 HIV screening HIV Screening [facility] Start: 1976 ONE PNEUMOVAX PRIOR TO AGE 65 ONE PNEUMOVAX PRIOR TO AGE 65 [facility] Start: 09-24-1975 HIV screen HIV screen [facility] Work Phone: Start: 09-24-1975 HIV screening HIV screen [facility] Work Phone: Start: 1972 Adult depression screening assessment DEPRESSION SCREENING [facility] Start: 1972 COVID-19 Vaccine (1) COVID-19 Vaccine (1) [facility] Work Phone: Start: 09-24-1971 DTaP/Tdap/Td vaccine (1 - Tdap) DTaP/Tdap/Td vaccine (1 - Tdap) [facility] Work Phone: Start: 1966 PNEUMOCOCCAL (1 - PCV) PNEUMOCOCCAL (1 - PCV) [facility] Start: 1966 [facility] Start: 1965 COVID-19 VACCINE (#1) COVID-19 VACCINE (#1) [facility] Start: 1965 COVID-19 VACCINE (1) COVID-19 VACCINE (1) [facility] Start: 03-26-1961 COVID-19 VACCINE (#1) COVID-19 VACCINE (#1) [facility] Start: 1960 Creatinine monitoring Creatinine monitoring [facility] Work Phone: Start: 1960 Hepatitis C screen Hepatitis C screen [facility] Work Phone: Start: 1960 Hepatitis C screening Hepatitis C screen [facility] Work Phone: Start: 1960 Potassium monitoring Potassium monitoring [facility] Work Phone: Anaerobic Culture [facility] Bacteria identified in Unspecified specimen by Anaerobe culture [facility] End: 05-08-2019 Culture Blood #1 Culture Blood #1 Microbiology STAT One Time for 1 Occurrences starting 05/08/2019 until 05/08/2019 [facility] Work Phone: Comment on above: One Time for 1 Occurrences starting 07/2019 until 05/08/2019 Culture Blood #1 Culture Blood # 1 Microbiology STAT 05/08/2019 1:15 PM EST ? Work Phone: End: 05-08-2019 Culture Blood #2 Culture Blood #2 Microbiology STAT One Time for 1 Occurrences starting 05/08/2019 until 05/08/2019 [facility] Work Phone: Comment on above: One Time for 1 Occurrences starting 07/2019 until 05/08/2019 Culture Blood #2 Culture Blood # 2 Microbiology STAT 05/08/2019 1:15 PM EST ? Work Phone: EKG 12 Lead - Chest Pain EKG 12 Lead - Chest Pain ECG STAT 05/08/2019 1:08 PM EST ? Work Phone: End: 06-18-2024 EMG(NEURO/NI) EMG(NEURO/NI) EMG Routine Bilateral carpal tunnel syndrome 1 Occurrences starting 06/18/2023 until 06/18/2024 [facility] Work Phone: Comment on above: 1 Occurrences starting 06/18/2023 until 06/18/2024 Microscopic observat ion [Identifier] in Unspecified specimen by Gram stain Gram Stain [facility] Patient referral [facility] Work Phone: SURGICAL PATHOLOGY [facility] Work Phone: Comment on above: Release Upon Ordering for 1 Occurrences starting 12/11/2023 Wound Culture Wound Culture [facility] Immunizations Immunization Date Immunization Notes Care Provider Fa cili 03-09-2021 influenza, injectabl e, quadrivalent, contains preservative Sharlene Finn [employer] Work Phone: [facility] 03-09-2021 influenza virus vacc ine, unspecified formulation Sharlene Imtiazc [employer] Work Phone: [facility] Payers Date Payer Category Payer Self-pay [id number] 2018 Medicaid MEDICAID [place] [facility] DEPT OF [facility] xxxxxxxxxxxx 2018-Present [phone] [address] [place] [address] xxxxxxxxxxxx [id number] 2015 Medicare MEDICARE MEDICAR E PART A AND B xxxxxxxxxx 2015-Present [phone] [address] [address] xxxxxxxxxx [id number] 2004 Medicaid MEDICAID [facility] MEDICAID [id number] 2004-Present [phone] [address] [place] [address] Medicaid [id number] 2004 Medicaid [id number] 2004 Medicaid [id number] 1993 Medicare [id number] 1993 Medicare [id number] 1993 Medicare MEDICARE MEDICAR E A AND B [id number] 1993-Present [phone] [address] [id number] Medicare [id number] 1993 Medicare [id number] 1993 Medicare [id number] 1960 [facility]ly [facility] [id number] Unknown [id number] Unknown [id number] Unknown [id number] Social History Date Type Detail Facility Start: 05-08-2019 End: 10-07-2020 Tobacco smoking status NHIS Former smoker [facility] Work Phone: Start: 10-07-2020 Alcohol intake Ex-drinker (finding) [facility] Phone: Start: 1960 Sex Assigned At Not on file [facility] [employer] Work Phone: Start: 11-04-2021 End: 11-14-2021 Exposure to SARS-CoV-2 (event) Not sure [facility] Start: 09-21-2013 End: 05-25-2022 Tobacco smoking status GAIS Light tobacco smoker [facility] History of tobacco use Cigar Smoker [facility] Start: 09-21-2013 End: 05-25-2022 Tobacco use and exposure Smokeless tobacco non-user [facility] Start: 03-09-2021 End: 07-02-2024 Alcohol intake Current non-drinker of alcohol (finding) [facility] Start: 04-05-2014 End: 05-25-2022 Tobacco Comment Cigars only, no cigarettes [facility] Start: 1960 Sex Assigned At Male [facility] Start: 10-26-2020 End: 07-17-2023 Tobacco smoking status GAIS Unknown if ever smoked [facility] Start: 08-24-2022 End: 02-22-2023 History of Social function [facility] Start: 08-24-2022 End: 02-22-2023 Tobacco use panel [facility] National Score (1-10 0), lower number is lower risk 67 [facility] Start: 04-06-2020 Gender identity Identifies as male gender (finding) [facility] Start: 04-06-2020 Sexual orientation Heterosexual (malachi tolentino) [facility] Medical Equipment Procedure Code Equipment Code Equipment Origin al Text Equipment Identifier Dates Repair, tendon, Achilles 07X 23MM CITRELOCK IMPLANT RENE FDA Start: 12-21-2022 Repair, tendon, Achilles BIOSKIN AMNIOTIC WOUND MATRIX FDA Start: 12-21-2022 Repair, tendon, Achilles SUT TAPE,T-LOOP [id number] FDA Start: 12-21-2022 Repair, tendon, Achilles 07X 23MM CITRELOCK IMPLANT RENE FDA Start: 12-21-2022 Repair, tendon, Achilles BIOSKIN AMNIOTIC WOUND MATRIX FDA Start: 12-21-2022 Repair, tendon, Achilles SUT TAPE,T-LOOP [id number] FDA Start: 12-21-2022 Repair, tendon, Achilles 07X 23MM CITRELOCK IMPLANT RENE FDA Start: 12-21-2022 Repair, tendon, Achilles BIOSKIN AMNIOTIC WOUND MATRIX FDA Start: 12-21-2022 Repair, tendon, Achilles SUT TAPE,T-LOOP [id number] FDA Start: 12-21-2022 Repair, tendon, Achilles 07X 23MM CITRELOCK IMPLANT RENE FDA Start: 12-21-2022 Repair, tendon, Achilles BIOSKIN AMNIOTIC WOUND MATRIX FDA Start: 12-21-2022 Repair, tendon, Achilles SUT TAPE,T-LOOP [id number] FDA Start: 12-21-2022 Repair, tendon, Achilles 07X 23MM CITRELOCK IMPLANT RENE FDA Start: 12-21-2022 Repair, tendon, Achilles BIOSKIN AMNIOTIC WOUND MATRIX FDA Start: 12-21-2022 Repair, tendon, Achilles SUT TAPE,T-LOOP [id number] FDA Start: 12-21-2022 Arthroplasty, toe EPICORD, 3 X 5 FDA Sta rt: 06-01-2022 Arthroplasty, toe EPICORD, 3 X 5 FDA Sta rt: 06-01-2022 Arthroplasty, toe EPICORD, 3 X 5 FDA Sta rt: 06-01-2022 Arthroplasty, toe EPICORD, 3 X 5 FDA Sta rt: 06-01-2022 Arthroplasty, toe EPICORD, 3 X 5 FDA Sta rt: 06-01-2022 Arthroplasty, toe EPICORD, 3 X 5 FDA Sta rt: 06-01-2022 Arthroplasty, toe EPICORD, 3 X 5 FDA Sta rt: 06-01-2022 Arthroplasty, toe EPICORD, 3 X 5 FDA Sta rt: 06-01-2022 Arthroplasty, toe EPICORD, 3 X 5 FDA Sta rt: 06-01-2022 [id number], [id number], [id number], [id number] Start: 01-19-2021 End: 12-31-2023 Comment on above: USE DIRECTED TWIC E DAILY Use 4 pen needles da beverley Use as instructed; 3 strips per day, IDDM, E 11.42 Use as instructed; 3 lancets daily, IDDM, E11.42 Use FOUR pen needles daily ([id number]) Metal-backed patella prosthesis ()[id number] FDA Start: 07-17-2023 ([id number]) Coated knee femu r prosthesis ()[id number] U FDA Start: 07-17-2023 ([id number]) Coated knee tibi a prosthesis ()[id number] ()[id number] FDA Start: 07-17-2023 ([id number]) Tibial insert ()[id number] FDA Start: 07-17-2023 Goals Date Patient Goal Desired Activity /State Functional Status Date Assessment Result Facility 07-18-2023 Functional status Patient Activity Chair [facility] Work Phone: 07-18-2023 Functional status With Assist of 1 [facility] Work Phone: 04-05-2014 Are you deaf, or do you have serious difficulty hearing No 04/05/2014 10:32 AM Joshua Allen No [facility] 04-05-2014 Are you blind, or do you have serious difficulty seeing, even when wearing glasses No 04/05/2014 10:32 AM Joshua Allen No [facility] 04-05-2014 Do you have serious difficulty walking or climbing stairs No 04/05/2014 10:32 AM Joshua Allen No [facility] 04-05-2014 Do you have difficul ty dressing or bathing No 04/05/2014 10:32 AM Joshua Allen No [facility] 04-05-2014 Because of a physica l, mental, or emotional condition, do you have difficulty doing errands alone such as visiting a physician's office or shopping No 04/05/2014 10:32 AM Joshua Allen No [facility] Mental Status Date Assessment Result Facility 07-18-2023 Cognitive function Level Of Cons ciousness Awake;Alert;Appropriate;Fol lows Commands [facility] Work Phone: 07-18-2023 Cognitive function Voice/Name [facility] Work Phone: 12-21-2022 Cognitive function Voice/Name [facility] Work Phone: 06-01-2022 Cognitive function Voice/Name [facility] Work Phone: 04-05-2014 Because of a physica l, mental, or emotional condition, do you have serious difficulty concentrating, remembering, or making decisions No 04/05/2014 10:32 AM Joshua Allen No [facility] Clinical Notes 08-18-2014 to 07-30-2024 Telephone Encounter - Naty Sen MA - 07/30/2024 1:41 PM EDTTelephone Encounter - Naty Sen MA - 07/30/2024 1:41 PM EDTTelephone Encounter - Melissa Camara PA-C - 07/06/2024 1:41 PM EST Note Date & Type Note Facility 07-30-2024 Telephone encounter Note Received a request for office notes from [employer] Notes from: 07/02/2024 Faxed via [employer] at [phone] Transmission Successful. [facility] 07-30-2024 Miscellaneous Notes Received a request for office notes from [employer] Notes from: 07/02/2024 Faxed via [employer]) at [phone] Transmission Successful. documented in this encounter [facility] 07-10-2024 Telephone encounter Note Received notification from [facility] that they no longer cover Insulin Glargine Solostar U300. They do cover: Insulin Glargine-Yfgn Pen U100 Insulin Degludec Pen U100 Please review and advise. [facility] 07-10-2024 Miscellaneous Notes Received notification from [facility] that they no longer cover Insulin Glargine Solostar U300. They do cover: Insulin Glargine-Yfgn Pen U100 Insulin Degludec Pen U100 Please review and advise. documented in this encounter [facility] 07-09-2024 Telephone encounter Note Insurance prefers ([facility]) Insulin Aspart instead of Lyumjev. Attached is RX. Please resend [facility] 07-09-2024 Miscellaneous Notes Insurance prefers ([facility]) Insulin Aspart instead of Lyumjev. Attached is RX. Please resend documented in this encounter [facility] 07-07-2024 Telephone encounter Note Images from the original note were not included. EDU MAYEN (Fried: [id number]) KEVIN Rx #: [id number] Need Help? Call us at Status Sent to Plan today Drug FreeStyle Alonso 2 Sensor Form [employer] Electronic Prior Authorization Request Form (2016 [place]) Original Claim Info A6 Please abandon this request. This is for a medical supply covered under Part B and member does not have Part B coverage with us Patient notified via [employer]. Closed [facility] 07-07-2024 Miscellaneous Notes Images from the original note were not included. EDU MAYEN (Fried: [id number]) KEVIN Rx #: [id number] Need Help? Call us at Status Sent to Plan today Drug FreeStyle Alonso 2 Sensor Form [employer] Medicare Electronic Prior Authorization Request Form (2016 [facility]) Original Claim Info A6 Please abandon this request. This is for a medical supply covered under Part B and member does not have Part B coverage with us Patient notified via [employer]. Closed documented in this encounter [facility] 07-06-2024 Telephone encounter Note Spoke with patient over the phone. 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 He will need to follow-up with our specialist in order to further differentiate the proteins and make a more definitive diagnosis. Patient already has a follow-up on July 14. [facility] Work Phone: 07-06-2024 Miscellaneous Notes Spoke with patient over the phone. 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 He will need to follow-up with our specialist in order to further differentiate the proteins and make a more definitive diagnosis. Patient already has a follow-up on July 14. documented in this encounter [facility] 07-03-2024 Telephone encounter Note Images from the original note were not included. Approved Prior authorization approved Payer: [facility] Note from payer: Approved. This drug has been approved under the Member's Medicare Part D benefit. Approved quantity: 6 units per 84 day(s). You may fill up to a 90 day supply except for those on Specialty Tier 5, which can be filled up to a 30 day supply. Please call the pharmacy to process the prescription claim. Approval Details Authorized from June 19, 2024 to May 05, 2099 Electronic appeal: Not supported View History Notes Time User Attachment Attachment received from payer. 07/03/2024 4:20 PM [facility], Rx Priorauth In Document Medication Being Authorized tirzepatide (MOUNJARO) 10 mg/0.5 mL pen injector Inject 10 mg subcutaneously one time a week. 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 To be filled at: [facility] [id number] - [place] [address] [address] [phone] Pharmacy Benefits Open Encounter ISA MAYEN - 2024 [employer] Retail [employer] ID ([employer]) Covered: Retail, Mail Order Unknown: Specialty, Long-Term Care BIN: [id number] : 1960 Group ID: [id number] PCN: [id number] Legal sex: M Group name: [id number] PDP [id number] Address: [address] [place] [address] Closed [facility] 07-03-2024 Miscellaneous Notes Images from the original note were not included. Approved Prior authorization approved Payer: Lilia Note from payer: Approved. This drug has been approved under the Member's Medicare Part D benefit. Approved quantity: 6 units per 84 day(s). You may fill up to a 90 day supply except for those on Specialty Tier 5, which can be filled up to a 30 day supply. Please call the pharmacy to process the prescription claim. Approval Details Authorized from June 19, 2024 to May 05, 2099 Electronic appeal: Not supported View History Notes Time User Attachment Attachment received from payer. 07/03/2024 4:20 PM [facility], Rx Priorauth In Document Medication Being Authorized tirzepatide (MOUNJARO) 10 mg/0.5 mL pen injector Inject 10 mg subcutaneously one time a week. 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 To be filled at: [facility] [address] - [place] [address] [id number] Pharmacy Benefits Open Encounter ISA MAYEN A - 2024 [employer] Retail Super ID ([employer]) Covered: Retail, Mail Order Unknown: Specialty, Long-Term Care BIN: [id number] : 1960 Group ID: [id number] PCN: [id number] Legal sex: M Group name: MYRA [id number] PDP [id number] Address: [address] [place] [address] Closed Images from the original note were not included. Prior Authorization History tirzepatide (MOUNJARO) 10 mg/0.5 mL pen injector History View all authorizations for this medication Waiting for Payer Response 07/03/2024 4:17 PM Deadline to reply: July 07, 2024 1:34 PM Sending user: Yanet Karimi RN Note to payer: The attachment was sent by alternative means. Payer: [employer] [phone] Attachment: The attachment was sent by alternative means. [email or web address] Case: [id number] Question Answer Is the request for Expedited Review? Yes No. By selecting Yes I certify that applying the 72 Hours standard review timeframe may seriously jeopardize the life or health of the enrollee or the enrollee ability to regain maximum function. NO Please select the member's diagnosis that this medication is primarily being prescribed for: Type 2 diabetes mellitus (T2DM) For type 2 diabetes: does this request exceed 1 pen (0.5 mL) per week (i.e., 4 pens (2 mL) per 28 days or 12 pens (6 mL) per 84 days)? If yes, please provide the medication sig (i.e., directions for use) and supporting clinical rationale (e.g., inability to use or inadequate response after use of a lower dose/quantity). No Closed 07/02/2024 1:34 PM Message source: PBM Close reason: The systems administrator is not the PA processor for this patient and medication combination. Note from payer: [employer] does not manage prior authorizations for this patient. [facility] Payer: [employer] [phone] Waiting for Payer Response 07/02/2024 1:34 PM Sending user: Sharlene Escobar APRN.CNP Payer: [employer] HOME DELIVERY [phone] Faxed last office notes to [facility]. Transmission OK Will await approval/denial documented in this encounter [facility] 07-03-2024 Telephone encounter Note Images from the original note were not included. Prior Authorization History tirzepatide (MOUNJARO) 10 mg/0.5 mL pen injector History View all authorizations for this medication Waiting for Payer Response 07/03/2024 4:17 PM Deadline to reply: July 07, 2024 1:34 PM Sending user: Yanet Karimi RN Note to payer: The attachment was sent by alternative means. Payer: [facility] [phone] Attachment: The attachment was sent by alternative means. [email or web address] Case: [id number] Question Answer Is the request for Expedited Review? Yes No. By selecting Yes I certify that applying the 72 Hours standard review timeframe may seriously jeopardize the life or health of the enrollee or the enrollee ability to regain maximum function. NO Please select the member's diagnosis that this medication is primarily being prescribed for: Type 2 diabetes mellitus (T2DM) For type 2 diabetes: does this request exceed 1 pen (0.5 mL) per week (i.e., 4 pens (2 mL) per 28 days or 12 pens (6 mL) per 84 days)? If yes, please provide the medication sig (i.e., directions for use) and supporting clinical rationale (e.g., inability to use or inadequate response after use of a lower dose/quantity). No Closed 07/02/2024 1:34 PM Message source: PBM Close reason: The systems administrator is not the PA processor for this patient and medication combination. Note from payer: [employer] does not manage prior authorizations for this patient. Please resubmit the ePA request to [employer]. Payer: [employer] HOME DELIVERY [phone] Waiting for Payer Response 07/02/2024 1:34 PM Sending user: Sharlene Escobar APRN.CNP Payer: [employer] HOME DELIVERY [phone] Faxed last office notes to [facility]. Transmission OK Will await approval/denial [facility]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 CaseId:[id number];Status:Cancelled;Explanation:Prior Authorization currently on file.; Electronic appeal: Not [...] to its destination. To be filled at: [facility] [address] - [place] [address] [address] [phone] Pharmacy Benefits EDU MAYENMOND - 2022 [facility] PDP Value - RTL ([employer]) Covered: Retail, Mail Order Unknown: Specialty, Long-Term Care Group ID: [id number] Group name: [facility] BIN: [id number] PCN: MEDDPRIME : 1960 Legal sex: M Address: [address] [place] [address] * Telephone Encounter - Jada Khan Ma - 04/09/2023 8:18 AM EST Images from the original note were not included. Completed PA through [employer]) for Mounjaro 5 mg and 7.5 mg. Received approval for Mounjaro. Patient notified. Approved Prior authorization approved Payer: [employer] [phone] CaseId:[id number];Status:Approved;Review Type:Prior Auth;Coverage Start Date:03/10/2023;Coverage End Date:04/08/2024; Approval [...] use of insulin (HCC) documented in this [facility]11-03-2023 Miscellaneous Notes* Telephone Encounter - Sharlene Escobar APRN.CNP - 03/08/2023 1:13 PM EDT Reviewed. Severe nonproliferative DR ?resolved mac edema. * Telephone Encounter - Natali Beach MA - 03/08/2023 10:49 AM EDT Received Eye Exam Report from [facility] Updated. Placed in provider's inbox for review. Route to [place] for scanning. documented in this [facility]10-20-2023 Miscellaneous Notes* Telephone Encounter - Natali Beach MA - 02/22/2023 2:57 PM EDT Form faxed to [facility]. Please review and sign. Faxed to Transmission successful documented in this [facility]08-18-2023 Procedure [facility]07-07-2023 Miscellaneous Notes* Telephone Encounter - Yanet Karimi RN - 11/09/2022 1:09 PM EDT ISA MAYEN (Fried: [id number]) Ozempic (1 MG/DOSE) 4MG/3ML pen-injectors Form [employer] Electronic PA Form (2016 [facility]) Created 17 hours ago Sent to Plan 2 minutes ago Plan Response 2 minutes ago Submit Clinical Questions 1 minute ago Determination Favorable less than a minute ago Message from Plan CaseId:[id number];Status:Approved;Review Type:Prior Auth;Coverage Start Date:10/10/2022;Coverage End Date:11/09/2023 Closed documented in this encounterBarberton Citizens Hospital04-21-2023 History of Present illness Narrative* Sharlene Escobar APRN.VERTICAL BORER - 08/24/2022 12:00 PM EDT Reason for Consultation: DM Type 2 Referring Physician: SELF HISTORY OF PRESENT ILLNESS Mr. Mayen is a 61 year old male presenting here today for a follow up of DM Type 2. As I recall,he was initially diagnosed with diabetes 2008. LV [...] is checking his blood glucose continuously with Alonso 2 CGM he does bring a log book today for review. LDE Blood Sugar Frequency: Alonso 14 day download --would not download today [...] as instructed; 3 strips per day, IDDM, E11.42 300 Strip 3 Blood-Glucose Meter Use 3x per day, IDDM, E 11.42; please dispense meter and supplies per insuranceformulary 1 Each 0 flash glucose scanning reader (FREESTYLE ALONSO 2 READER) Use as instructed to monitor glucose continuously, IDDM, E11.42 1 Each 0 flash glucose sensor (FREESTYLE ALONSO 2 SENSOR) kit Use as instructed to monitor glucose continuously; one sensor every 14 days; IDDM, E11.42 2 Each 11 pen needle, diabetic (COMFORT EZ PEN NEEDLES) 33 gauge x /16 ndle Use 4 pen needles daily 400 Each 3 pregabalin (LYRICA) 150 mg capsule Take 1 capsule by mouth three times daily. Blood-Glucose Sensor (FREESTYLE ALONSO 3 SENSOR) miller Use one sensor every 14 days, IDDM, E 11.42 2 Each 11 semaglutide (OZEMPIC) 1 mg/dose (4 mg/3 mL) pen Inject 1 mg subcutaneously one time a week. 3 mL 5 Cholecalciferol, Vitamin D3, (VITAMIN D-3) 50 mcg (2,000 unit) cap One capsule daily 90 capsule 3 Yscmrkef-Sklnmfamt-Mtfceus HMB (KIRK) 7-7-1.5 gram pwpk Take 1 [...] 127/78 Pulse 73 Ht 185.4 cm (6' 1) Wt 152.9 kg (337 lb) SpO2 97% [...] (mg/dL) Date Value 01/05/2020 526 IMPRESSION: Mr. Mayen is a 61 year old male here for evaluation of DM Type 2 complicated by hypertension, hyperlipidemia, peripheral neuropathy, retinopathy and obesity RECOMMENDATIONS: (E11.42, Z79.4) Type 2 diabetes mellitus with diabetic polyneuropathy, with long-term current use of insulin (HCC) (primary encounter diagnosis) (E11.3213, Z79.4) 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d by mild nonproliferative retinopathy and macular edema, with long-term current use of insulin (HCC) Comment: Glycemic control is improved. He has [...] to 44.9 in adult, unspecified obesity type ([facility]) Comment/Plan: Encouraged increase dietary and exercise efforts as able Medical Decision Making: Level: 3 - Low ERIK Dhillon, PORTFOLIO MGR, SMALL ENGINE SPECIALIST-C, CDE Endocrinology [facility]/[address] [place] [address] Fax: documented in this encounterBarberton Citizens Hospital02-24-2023 Instructions* Patient Instructions* Sharlene Escobar APRN.CNP - 06/29/2022 12:20 PM EST Continue ozempic 2. Toujeo--increase to 68 units daily in AM. 3. Fiasp: Breakfast 24 units Lunch 20 units Dinner 20 units 4. Continue dietary efforts 5. Follow up on or after August 23. 6. Contact us to download EyeScribes in 2 wks Download the DOCUSYS leo to connect with us . Sharlene Kupiec, MSN, PORTFOLIO MGR, SMALL ENGINE SPECIALIST-C, CDE Endocrinology [facility]/[address], [address] [place], [place] [address] Fax: documented in this encounterBarberton Citizens Hospital02-24-2023 History of Present illness Narrative* Sharlene Escobar APRN.KIERSTEN - 06/29/2022 12:00 PM EST Reason for Consultation: DM Type 2 Referring Physician: SELF HISTORY OF PRESENT ILLNESS Mr. Mayen is a 61 year old male presenting here today for a follow up of DM Type 2. As I recall,he was initially diagnosed with diabetes 2008. LV [...] he is checking his blood glucose with alonso. he does bring a log book today for review. LDE Blood Sugar Frequency: Alonso 14 day download (06/16/22 to 06/29/22) In [...] as instructed; 3 strips per day, IDDM, E11.42 300 Strip 3 Blood-Glucose Meter Use 3x per day, IDDM, E 11.42; please dispense meter and supplies per insuranceformulary 1 Each 0 Lancets lancets Use as [...] mL 5 flash glucose scanning reader (FREESTYLE ALONSO 2 READER) Use as instructed to monitor glucose continuously, IDDM, E11.42 1 Each 0 flash glucose sensor (FREESTYLE ALONSO 2 SENSOR) kit Use as instructed to monitor glucose continuously; one sensor every 14 days; IDDM, E11.42 2 Each 11 pen needle, diabetic (COMFORT EZ PEN NEEDLES) 33 gauge x 5/16 ndle Use 4 pen needles daily 400 Each 3 pregabalin (LYRICA) 150 mg capsule Take 1 capsule by mouth three times daily. Blood-Glucose Sensor (FREESTYLE ALONSO 3 SENSOR) miller Use one sensor every 14 days, IDDM, E 11.42 2 Each 11 semaglutide (OZEMPIC) 1 mg/dose (4 mg/3 mL) pen Inject 1 mg subcutaneously one time a week. 3 mL 5 Cholecalciferol, Vitamin D3, (VITAMIN D-3) 50 mcg (2,000 unit) cap One capsule daily 90 capsule 3 Rukozios-Lhdyvtxsr-Hwvzxxt HMB (KIRK) 7-7-1.5 gram pwpk Take 1 [...] 131/74 Pulse 78 Ht 185.4 cm (6' 1) Wt 158.2 kg (348 lb 12.8 oz) [...] (mg/dL) Date Value 01/05/2020 526 IMPRESSION: Mr. Mayen is a 61 year old male here for evaluation of DM Type 2 complicated by hypertension, hyperlipidemia, peripheral neuropathy, retinopathy and obesity RECOMMENDATIONS: (E11.42, Z79.4) Type 2 diabetes mellitus with diabetic polyneuropathy, with long-term current use of insulin ([facility]) (primary encounter diagnosis) (E11.6343, Z79.4) 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d by mild nonproliferative retinopathy and macular edema, with long-term current use of insulin ([facility]) Comment: glycemic control is improving and he has made changes to his diet positively affecting hisglucose control. Insulin adjusted. Plan: insulin glargine U-300 conc (TOUJEO SOLOSTAR U-300 INSULIN) 300 unit/mL (1.5 mL), insulin aspart, niacinamide, (FIASP FLEXTOUCH U-100 INSULIN) 100 unit/mL (3 mL) pen Continue ozempic Toujeo--increase to 68 units daily in AM. Fiasp: Breakfast 24 units Lunch 20 units Dinner 20 units Continue dietary efforts Follow up on or after August 23. Contact us to download EyeScribes in 2 wks Download the EyeScribes view leo to connect with us . (E55.9) [...] which included preparing to see the patient, zcwj-wm-zovs patient care, completing clinical documentation, obtaining and/or reviewing separately obtained history, performing a medically appropriate examination, counseling and educating the pat ient/family/caregiver, and ordering medications, tests, or procedures. Sharlene Escobar, MSN, PORTFOLIO MGR, SMALL ENGINE SPECIALIST-C, CDE Endocrinology [facility]/[address] [place], [place] [address] Fax: documented in this encounterBarberton Citizens Hospital02-15-2023 Miscellaneous Notes* Telephone Encounter - Sharlene Escobar APRN.CNP - 06/20/2022 1:05 PM EST Patient was transferred again which did not go through but gave my cell number to contact me on which he did. Patient had issues with sensors He contacted [employer] and they are sending him 2 new [...] expressed apology for popping off in his [facility] messages. He was calm and appreciative at the end of the call. He will keep his appt on 06/29/22. Thank you documented in this encounterBarberton Citizens Hospital02-15-2023 Miscellaneous Notes* Telephone Encounter - Sharlene Escobar APRN.CNP - 06/20/2022 11:16 AM EST Tried patient again and went to voice mail. Message left Sending Mc message to patient. Thank you * Telephone Encounter - Sharlene Escobra APRN.CNP - 06/20/2022 11:03 AM EST Called patient and went to voice mail. Will try again later. * Telephone Encounter - Katie Burr RN - 06/20/2022 8:18 AM EST Patient called nurse VLADIMIR and stated his Alonso sensors keep falling off and BS's are all over the place and he wants to speak to her only directly. [phone]. documented in this encounterBarberton Citizens Hospital01-30-2023 Miscellaneous Notes* Telephone Encounter - Jada Khan Ma - 06/04/2022 11:27 AM EST Patient via [employer] requesting refills as follows: Requested Prescriptions Pending Prescriptions Disp Refills flash glucose sensor (FREESTYLE ALONSO 2 SENSOR) kit 2 Each 11 Sig: Use as instructed to monitor glucose 3 times daily and continuously. Please review and advise. Jada Khan Ma documented in this encounterBarberton Citizens Hospital01-27-2023 Procedure [facility]01-25-2023 Miscellaneous Notes* Telephone Encounter - Naty Sen MA - 05/30/2022 1:29 PM EST Office notes from 11/14/2021 and 05/25/2022 printed and faxed to: [phone] Confirmation fax received. Transmission successful. documented in this encounterBarberton Citizens Hospital01-25-2023 Miscellaneous Notes* Telephone Encounter - Sharlene Escobar APRN.CNP - 05/30/2022 10:11 AM EST Yes, that is ok. Rx sent * Telephone Encounter - Jada Khan Ma - 05/30/2022 10:01 AM EST Received fax from [employer] ([facility]) stating the Unifine pen tips 8mm 31G are not covered. The only pen needles I can find preferred are the 33G by 09/18. Would these be okay to use? Patient was given temporary supply of the non preferred needles. Denial on your desk. documented in this encounterBarberton Citizens Hospital01-20-2023 Miscellaneous Notes* Telephone Encounter - Sharlene Escobar APRN.CNP - 05/25/2022 12:50 PM EST Reviewed. * Telephone Encounter - Sonya Lewis Ma - 05/25/2022 11:35 AM EST Eye Exam received and placed on providers mail inbox. documented in this encounterBarberton Citizens Hospital01-20-2023 Instructions* Patient Instructions* Sharlene Escobar APRN.CNP - 05/25/2022 12:23 PM EST [...] week. 9. Follow up in 4-6 wks. Sharlene Escobar, MSN, PORTFOLIO MGR, SMALL ENGINE SPECIALIST-C, CDE Endocrinology [facility]/[address], [address] [place], [place] [address] Fax: [phone] documented in this encounterBarberton Citizens Hospital01-20-2023 History of Present illness Narrative* Sharlene Escobar APRN.CNP - 05/25/2022 12:00 PM EST Reason for Consultation: DM Type 2 Referring Physician: SELF HISTORY OF PRESENT ILLNESS Mr. Mayen is a 61 year old male presenting here today for a follow up of DM Type 2. As I recall,he was initially diagnosed with diabetes 2008. LV [...] cap One capsule daily 90 capsule 3 Sgwkzqsd-Cecvxxbff-Bhzzpjs HMB (KIRK) 7-7-1.5 gram pwpk Take 1 [...] 75 Resp 16 Ht 180.6 cm (5' 11.1) Wt 154.2 kg (340 lb) SpO2 94% [...] (mg/dL) Date Value 01/05/2020 526 IMPRESSION: Mr. Mayen is a 61 year old male here for evaluation of DM Type 2 complicated by hypertension, hyperlipidemia, peripheral neuropathy, retinopathy and obesity RECOMMENDATIONS: (E11.42, Z79.4) Type 2 diabetes mellitus with diabetic polyneuropathy, with long-term current use of insulin ([facility]) (primary encounter diagnosis) (E11.3213, Z79.4) 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d by mild nonproliferative retinopathy and macular edema, with long-term current use of insulin ([facility]) Comment: glycemic control is poor. Difficulty with [...] needles, DISPOSABLE, (UNIFINE PENTIPS) 31 gauge x 5/16, Blood-Glucose Sensor (FREESTYLE ALONSO 3 SENSOR) miller Stop jardiance continue ozempic [...] which included preparing to see the patient, zlli-ob-jkyt patient care, completing clinical documentation, obtaining and/or reviewing separately obtained history, performing a medically appropriate examination, counseling and educating the pat ient/family/caregiver, ordering medications, tests, or procedures, and communicating results to thepatient/family/caregiver. ERIK Dhillon, PORTFOLIO MGR, SMALL ENGINE SPECIALIST-C, CDE Endocrinology [facility]/[place] [address] Fax: documented in this encounterBarberton Citizens Hospital10-18-2022 Miscellaneous Notes* Telephone Encounter - Blanche Cast - 02/20/2022 9:48 AM EDT Rescheduled * Telephone Encounter - Jada Khan Ma - 02/20/2022 9:16 AM EDT Please see message. documented in this encounterBarberton Citizens Hospital09-06-2022 Miscellaneous Notes* Telephone Encounter - Marcella Rivera LPN - 01/09/2022 10:11 AM EDT Requester: Patient Last Visit in Endocrinology: Provider name: Sharlene Escobar CNP , Date 11/14/2021 Next Scheduled [...] advise. Marcella Rivera LPN documented in this encounterBarberton Citizens Hospital07-12-2022 Miscellaneous Notes* Telephone Encounter - Jada Khan Ma - 11/14/2021 3:26 PM EDT Images from the original note were not included. Completed PA through [employer]) for Ozempic. Approved Prior authorization approved Payer: [employer]IVERY [phone] CaseId:[id number];Status:Approved;Review Type:Prior Auth;Coverage Start Date:10/15/2021;Coverage End Date:11/14/2022; Approval [...] to its destination. To be filled at: [facility] [address] [place] [address] [address] [facility] [phone] documented in this encounterBarberton Citizens Hospital07-12-2022 Instructions* Patient Instructions* Sharlene Escobar APRN.CNP - 11/14/2021 2:21 PM EDT 1. Continue jardiance, glipizide. 2. Continue 70/30 insulin Breakfast 55 units Dinner 55 units 3. Stop trulicity. 4. Start ozempic 1 mg once weekly. 5. Send me sugars in 2 wks and 4 wks. 6. Follow up in 3 months Sharlene Escobar, MSN, PORTFOLIO MGR, SMALL ENGINE SPECIALIST-C, CDE Endocrinology [facility]/[address] [place] [address] Fax: documented in this encounterBarberton Citizens Hospital07-12-2022 History of Present illness Narrative* Sharlene Escobar APRN.CNP - 11/14/2021 2:15 PM EDT Reason for Consultation: DM Type 2 Referring Physician: SELF HISTORY OF PRESENT ILLNESS Mr. Mayen is a 61 year old male presenting here today for a follow up of DM Type 2. As I recall,he was initially diagnosed with diabetes 2008. LV [...] 1.5 mg subcutaneously one time a week. 12Each 3 Hvfgbajf-Dzgdzytcq-Bwdagrk HMB (KIRK) 7-7-1.5 gram pwpk Take 1 [...] Adult) Pulse 76 Ht 180.6 cm (5' 11.1) Wt 158.3 kg (349 lb) SpO2 94% [...] (mg/dL) Date Value 01/05/2020 526 IMPRESSION: Mr. Mayen is a 61 year old male here for evaluation of DM Type 2 complicated by hypertension, hyperlipidemia, peripheral neuropathy and obesity RECOMMENDATIONS: (E11.42, Z79.4) Type 2 diabetes mellitus with diabetic polyneuropathy, with long-term current use of insulin ([facility]) (primary encounter diagnosis) Comment: Glycemic control has [...] type (HCC) Comment: Body mass index is 48.54 kg/m . Plan: Encouraged increase dietary and exercise efforts as able Medical Decision Making: Level: 4 - Moderate Sharlene Escobar, MSN, PORTFOLIO MGR, SMALL ENGINE SPECIALIST-C, CDE Endocrinology [facility] [place] [address] Fax: documented in [facility] Miscellaneous Notes* Telephone Encounter - Marcella Rivera LPN - 10/09/2021 2:59 PM EDT Requester: Patient Last Visit in Endocrinology: Provider name: Sharlene Escobar CNP , Date 03/09/2021 Next Scheduled [...] advise. Marcella Rivera LPN documented in this encounterBar[facility]04-15-2022 Miscellaneous Notes* Telephone Encounter - Jada Khan Ma - 08/18/2021 10:13 AM EDT Received denial from [facility] for Trulicity. Completed PA through CMM: EDU MAYEN Fried: [id number] PA Rx #: [id number] help? Call us at Outcome Approvedtoday CaseId:[id number];Status:Approved;Review Type:Prior Auth;Coverage Start Date:07/19/2021;Coverage End Date:08/18/2022; Drug Trulicity 1.5MG/0.5ML pen-injectors Form [employer] Electronic PA Form (2016 [facility]) Original Claim Info [id number] APPROVED documented in this encounterBarberton [facility]01-03-2020 Hospital Discharge instructions* Instructions* Chalino Jackson, DO - 05/08/2019 Leaving against medical advice. Please return if any problems or concerns. Return if shortness of breath or any difficulty. * Attachments The following attachments cannot be sent through Care Everywhere. * COPD Exacerbation Plan (Uzbek) * Diabetes: Insulin Pens: General Info (Uzbek) * Sepsis: General Info (Uzbek) * COPD: Prevent Lung Infections: General Info (Uzbek) documented in [facility] encounterSUM[facility] Work Phone: [phone] 712-128804-15-2015 History of Past illness Narrative* Problem Noted Date Resolved Date Chalazion of left lower eyelid 08/18/2014 0 05/20/2018 documented as of this encounter (statuses as of 08/18/2021) [facility] of Past illness Narrative* Problem Noted Date Resolved Date Chalazion of left lower eyelid 08/18/2014 0 05/20/2018 documented as of this encounter (statuses as of 10/09/2021) [facility] of Past illness Narrative* Problem Noted Date Resolved Date Chalazion of left lower eyelid 08/18/2014 0 05/20/2018 documented as of this encounter (statuses as of 11/14/2021) [facility] of [facility] illness Narrative* Problem Noted Date Resolved Date Chalazion of left lower eyelid 08/18/2014 0 05/20/2018 documented as of this encounter (statuses as of 11/14/2021) [address] History of Past illness Narrative* Problem Noted Date Resolved Date Chalazion of left lower eyelid 08/18/2014 0 05/20/2018 documented as of this encounter (statuses as of 01/09/2022) [address] History of Past illness Narrative* Problem Noted Date Resolved Date Chalazion of left lower eyelid 08/18/2014 0 05/20/2018 documented as of this encounter (statuses as of 02/20/2022) [address] History of Past illness Narrative* Problem Noted Date Resolved Date Chalazion of left lower eyelid 08/18/2014 0 05/20/2018 documented as of this encounter (statuses as of 05/25/2022) [address] History of Past illness Narrative* Problem Noted Date Resolved Date Chalazion of left lower eyelid 08/18/2014 0 05/20/2018 documented as of this encounter (statuses as of 05/25/2022) [address] History of Past illness Narrative* Problem Noted Date Resolved Date Chalazion of left lower eyelid 08/18/2014 0 05/20/2018 documented as of this encounter (statuses as of 05/30/2022) [address] History of Past illness Narrative* Problem Noted Date Resolved Date Chalazion of left lower eyelid 08/18/2014 0 05/20/2018 documented as of this encounter (statuses as of 05/30/2022) [address] History of Past illness Narrative* Problem Noted Date Resolved Date Chalazion of left lower eyelid 08/18/2014 0 05/20/2018 documented as of this encounter (statuses as of 06/04/2022) [address] History of Past illness Narrative* Problem Noted Date Resolved Date Chalazion of left lower eyelid 08/18/2014 0 05/20/2018 documented as of this encounter (statuses as of 06/05/2022) [address] History of Past illness Narrative* Problem Noted Date Resolved Date Chalazion of left lower eyelid 08/18/2014 0 05/20/2018 documented as of this encounter (statuses as of 06/05/2022) [address]15-2015 History of Past illness Narrative* Problem Noted Date Resolved Date Chalazion of left lower eyelid 08/18/2014 0 05/20/2018 documented as of this encounter (statuses as of 06/20/2022) [address] History of Past illness Narrative* Problem Noted Date Resolved Date Chalazion of left lower eyelid 08/18/2014 0 05/20/2018 documented as of this encounter (statuses as of 06/20/2022) [address] History of Past illness Narrative* Problem Noted Date Resolved Date Chalazion of left lower eyelid 08/18/2014 0 05/20/2018 documented as of this encounter (statuses as of 06/21/2022) [address] History of Past illness Narrative* Problem Noted Date Resolved Date Chalazion of left lower eyelid 08/18/2014 0 05/20/2018 documented as of this encounter (statuses as of 06/29/2022) [address] History of Past illness Narrative* Problem Noted Date Resolved Date Chalazion of left lower eyelid 08/18/2014 0 05/20/2018 documented as of this encounter (statuses as of 08/24/2022) [address]2015 History of Past illness Narrative* Problem Noted Date Resolved Date Chalazion of left lower eyelid 08/18/2014 0 05/20/2018 documented as of this encounter (statuses as of 11/09/2022) [address] History of Past illness Narrative* Problem Noted Date Diagnosed Date Resolved Date Chalazion of left lower eyelid 08/18/2014 05/20/2018 documented as of this encounter (statuses as of 12/21/2022) [address]2015 History of Past illness Narrative* Problem Noted Date Diagnosed Date Resolved Date Chalazion of left lower eyelid 08/18/2014 05/20/2018 documented as of this encounter (statuses as of 02/22/2023) [address] History of Past illness Narrative* Problem Noted Date Diagnosed Date Resolved Date Chalazion of left lower eyelid 08/18/2014 05/20/2018 documented as of this encounter (statuses as of 03/09/2023) [address]2015 History of Past illness Narrative* Problem Noted Date Diagnosed Date Resolved Date Chalazion of left lower eyelid 08/18/2014 05/20/2018 documented as of this encounter (statuses as of 04/09/2023) [address]2015 History of Past illness Narrative* Problem Noted Date Diagnosed Date Resolved Date Chalazion of left lower eyelid 08/18/2014 05/20/2018 documented as of this encounter (statuses as of 06/18/2023) [address]2015 History of Past illness Narrative* Problem Noted Date Diagnosed Date Resolved Date Chalazion of left lower eyelid 08/18/2014 05/20/2018 documented as of this encounter (statuses as of 06/24/2023) [address]2015 History of Past illness Narrative* Problem Noted Date Diagnosed Date Resolved Date Chalazion of left lower eyelid 08/18/2014 05/20/2018 documented as of this encounter (statuses as of 06/24/2023) [address]2015 History of Past illness Narrative* Problem Noted Date Diagnosed Date Resolved Date Chalazion of left lower eyelid 08/18/2014 05/20/2018 documented as of this encounter (statuses as of 06/24/2023) [address]2015 History of Past illness Narrative* Problem Noted Date Diagnosed Date Resolved Date Chalazion of left lower eyelid 08/18/2014 05/20/2018 documented as of this encounter (statuses as of 07/24/2023) [address]2015 History of Past illness Narrative* Problem Noted Date Diagnosed Date Resolved Date Chalazion of left lower eyelid 08/18/2014 05/20/2018 documented as of this encounter (statuses as of 07/25/2023) [address]2015 History of Past illness Narrative* Problem Noted Date Diagnosed Date Resolved Date Chalazion of left lower eyelid 08/18/2014 05/20/2018 documented as of this encounter (statuses as of 08/23/2023) [address]2015 History of Past illness Narrative* Problem Noted Date Diagnosed Date Resolved Date Chalazion of left lower eyelid 08/18/2014 05/20/2018 documented as of this encounter (statuses as of 08/23/2023) [address]2015 History of Past illness Narrative* Problem Noted Date Diagnosed Date Resolved Date Chalazion of left lower eyelid 08/18/2014 05/20/2018 documented as of this encounter (statuses as of 08/23/2023) [facility] Narrative* Problem Noted Date Diagnosed Date Resolved Date Chalazion of left lower eyelid 08/18/2014 05/20/2018 documented as of this encounter (statuses as of 08/09/2023) [facility] Hospital[facility] Author Lexie Mathews [facility] July 18, 2023 12:17pm Note Date/Time July 18, 2023 12: 17pm [facility] Medical Records Department [address] [place] [address] Counseling Note - Pharmacy 07/18/23 1216 MR#: [id number] Acct: [id number] Name: ISA MAYEN Rep #:[id number] : 1960 62 From: Lexie Mathews PCP: RICARDO ABRAHAM MD Status:ADM RUDDY Y Location: [facility] [id number] Pharmacy [facility] Service has performed discharge medication reconciliation and counseling for this patient. The patient's discharge medication list was reviewed for discrepancies and discrepancies were resolved. The patient was counseled on the following discharge medications and changes in medications for homegoing were reviewed. 1. DOXYCYCLINE 2. ASPIRIN 3. PEPCID 4. MOBIC The Reason for Use, instructions for use, and potential side effects were reviewed for all new medications. The patient's questions regarding all of their medications were answered. The patient was able to verbally demonstrate an understanding of their dischargemedications. Medications at Discharge Home Medications amlodipine 10 mg tablet 10 mg PO DAILY 09/23/15 hydrochlorothiazide 25 mg tablet 25 mg PO DAILY 09/23/15 oxycodone-acetaminophen 10 mg-325 mg tablet (Percocet) 1 tab PO TID 09/23/15 pregabalin 150 mg capsule (Lyrica) 150 mg PO BID 09/23/15 lisinopril 20 mg tablet 20 mg PO DAILY 10/07/20 insulin aspart (niacinamide)(U-100) 100 unit/mL(3 mL) subcutaneous pen (Fiasp FlexTouch U-100 Insulin) 10 unit subcut TID 05/28/22 insulin glargine U-300 conc 300 unit/mL (1.5 mL) subcutaneous pen (Toujeo SoloStar U-300 Insulin) 48 unit subcut DAILY 12/14/22 tirzepatide 7.5 mg/0.5 mL subcutaneous pen injector (Mounjaro) 7.5 mg subcut [place] 06/24/23 aspirin 81 mg chewable tablet 81 mg PO BIDCM 30 days #60 tabs 07/18/23 doxycycline monohydrate 100 mg capsule 100 mg PO BID 14 days #28 caps 07/18/23 famotidine 20 mg tablet 20 mg PO DAILY 30 days #30 tabs 07/18/23 meloxicam 7.5 mg tablet 7.5 mg PO BID 30 days #60 tabs 07/18/23 sennosides 8.6 mg-docusate sodium 50 mg tablet (Stool Softener-Stimulant Laxative) 2 tab PO BID 3 days #12 tabs 07/18/23 07/18/23 1217 <Electronically signed by Lexie Mathews > Date _ Lexie Mathews Cosigner Signature (if applicable): Date CC: ~ Signed [facility] Work Phone: Evaluation note* Diagnosis Diabetic foot infection (HCC)- Primary [...] encounter [facility] Work Phone: Evaluation note* Diagnosis Onset Date Resolution Status Achilles rupture, right acut e Acquired hallux limitus of left foot acute Delayed wound healing acute Difficulty in walking, not elsewhere classified acute Localized edema acute Type 2 diabetes mellitus with diabetic polyneuropathy acute Chronic ulcer of left foot with fat layer exposed chronic [facility] Work Phone: Evaluation note* Diagnosis Onset Date Resolution Status Achilles rupture, right acut e Acquired hallux limitus of left foot acute Delayed wound healing acute Difficulty in walking, not elsewhere classified acute Localized edema acute Type 2 diabetes mellitus with diabetic polyneuropathy acute Chronic ulcer of left foot with fat layer exposed chronic Achilles rupture, right acut e Acquired hallux limitus of left foot acute Delayed wound healing acute Difficulty in walking, not elsewhere classified acute Localized edema acute Type 2 diabetes mellitus with diabetic polyneuropathy acute Chronic ulcer of left foot with fat layer exposed chronic [facility] Work Phone: Evaluation note* Diagnosis Uncontrolled type 2 diabetes mellitus with diabetic polyneuropathy Vitamin D deficiency Unspecified vitamin D deficiency [facility]* Diagnosis Onset Date Resolution Status Achilles rupture, right acut e Acquired hallux limitus of left foot acute Delayed wound healing acute Difficulty in walking, not elsewhere classified acute Localized edema acute Type 2 diabetes mellitus with diabetic polyneuropathy acute Chronic ulcer of left foot with fat layer exposed chronic Achilles rupture, right acut e Acquired hallux limitus of left foot acute Delayed wound healing acute Difficulty in walking, not elsewhere classified acute Localized edema acute Type 2 diabetes mellitus with diabetic polyneuropathy acute Chronic ulcer of left foot with fat layer exposed chronic Achilles rupture, right acut e Acquired hallux limitus of left foot acute Delayed wound healing acute Localized edema acute Type 2 diabetes mellitus with diabetic polyneuropathy acute Chronic ulcer of left foot with fat layer exposed chronic [facility] Work Phone: Evaluation note* Diagnosis Type 2 diabetes mellitus with diabetic polyneuropathy, with long-term current use of insulin (HCC)- Primary Vitamin D deficiency Unspecified vitamin D deficiency Essential hypertension Unspecified essential hypertension Mixed hyperlipidemia Class 3 severe obesity with serious comorbidity and body mass index (BMI) of 45.0 to 49.9 in adult, unspecified obesity type (HCC) documented in this encounter [facility] note* Diagnosis Onset Date Resolution Status Achilles rupture, right acut e Acquired hallux limitus of left foot acute Delayed wound healing acute Difficulty in walking, not elsewhere classified acute Localized edema acute Type 2 diabetes mellitus with diabetic polyneuropathy acute Chronic ulcer of left foot with fat layer exposed chronic Achilles rupture, right acut e Acquired hallux limitus of left foot acute Delayed wound healing acute Difficulty in walking, not elsewhere classified acute Localized edema acute Type 2 diabetes mellitus with diabetic polyneuropathy acute Chronic ulcer of left foot with fat layer exposed chronic Achilles rupture, right acut e Acquired hallux limitus of left foot acute Delayed wound healing acute Localized edema acute Type 2 diabetes mellitus with diabetic polyneuropathy acute Chronic ulcer of left foot with fat layer exposed chronic Achilles rupture, right acut e Acquired hallux limitus of left foot acute Delayed wound healing acute Localized edema acute Type 2 diabetes mellitus with diabetic polyneuropathy acute Chronic ulcer of left foot with fat layer exposed chronic [facility] Work Phone: Evaluation note* Diagnosis Uncontrolled type 2 diabetes mellitus with complication, with long-term current use of insulin Type 2 diabetes mellitus with diabetic polyneuropathy, with long-term current use of insulin (HCC) [facility] Diagnosis Onset Date Resolution Status Achilles rupture, right acut e Acquired hallux limitus of left foot acute Delayed wound healing acute Difficulty in walking, not elsewhere classified acute Localized edema acute Type 2 diabetes mellitus with diabetic polyneuropathy acute Chronic ulcer of left foot with fat layer exposed chronic Achilles rupture, right acut e Acquired hallux limitus of left foot acute Delayed wound healing acute Localized edema acute Type 2 diabetes mellitus with diabetic polyneuropathy acute Chronic ulcer of left foot with fat layer exposed chronic Achilles rupture, right acut e Acquired hallux limitus of left foot acute Delayed wound healing acute Localized edema acute Type 2 diabetes mellitus with diabetic polyneuropathy acute Chronic ulcer of left foot with fat layer exposed chronic Achilles rupture, right acut e Acquired hallux limitus of left foot acute Delayed wound healing acute Foot pain, right acute Localized edema acute 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 acute Chronic ulcer of left foot with fat layer exposed chronic [facility] Work Phone: Evaluation note* Diagnosis Onset Date Resolution Status Achilles rupture, right acut e Acquired hallux limitus of left foot acute Delayed wound healing acute Localized edema acute Type 2 diabetes mellitus with diabetic polyneuropathy acute Chronic ulcer of left foot with fat layer exposed chronic Achilles rupture, right acut e Acquired hallux limitus of left foot acute Delayed wound healing acute Localized edema acute Type 2 diabetes mellitus with diabetic polyneuropathy acute Chronic ulcer of left foot with fat layer exposed chronic Achilles rupture, right acut e Acquired hallux limitus of left foot acute Delayed wound healing acute Foot pain, right acute Localized edema acute 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 acute Chronic ulcer of left foot with fat layer exposed chronic Achilles rupture, right acut e Acquired hallux limitus of left foot acute Delayed wound healing acute Localized edema acute 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 acute Chronic ulcer of left foot with fat layer exposed chronic [facility] Work Phone: Evaluation note* Diagnosis Onset Date Resolution Status Achilles rupture, right acut e Acquired hallux limitus of left foot acute Delayed wound healing acute Localized edema acute Type 2 diabetes mellitus with diabetic polyneuropathy acute Chronic ulcer of left foot with fat layer exposed chronic Achilles rupture, right acut e Acquired hallux limitus of left foot acute Delayed wound healing acute Foot pain, right acute Localized edema acute 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 acute Chronic ulcer of left foot with fat layer exposed chronic Achilles rupture, right acut e Acquired hallux limitus of left foot acute Delayed wound healing acute Localized edema acute 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 acute Chronic ulcer of left foot with fat layer exposed chronic Achilles rupture, right acut e Acquired hallux limitus of left foot acute Delayed wound healing acute Localized edema acute 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 acute Chronic ulcer of left foot with fat layer exposed chronic [facility] Work Phone: Evaluation note* Diagnosis Onset Date Resolution Status Achilles rupture, right acut e Acquired hallux limitus of left foot acute Delayed wound healing acute Foot pain, right acute Localized edema acute 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 acute Chronic ulcer of left foot with fat layer exposed chronic Achilles rupture, right acut e Acquired hallux limitus of left foot acute Delayed wound healing acute Localized edema acute 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 acute Chronic ulcer of left foot with fat layer exposed chronic Achilles rupture, right acut e Acquired hallux limitus of left foot acute Delayed wound healing acute Localized edema acute 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 acute Chronic ulcer of left foot with fat layer exposed chronic Achilles rupture, right acut e Acquired hallux limitus of left foot acute Delayed wound healing acute Localized edema acute 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 acute Chronic ulcer of left foot with fat layer exposed chronic [facility] Work Phone: Evaluation note* Diagnosis Onset Date Resolution Status Achilles rupture, right acut e Acquired hallux limitus of left foot acute Delayed wound healing acute Localized edema acute 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 acute Chronic ulcer of left foot with fat layer exposed chronic Achilles rupture, right acut e Acquired hallux limitus of left foot acute Delayed wound healing acute Localized edema acute 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 acute Chronic ulcer of left foot with fat layer exposed chronic Achilles rupture, right acut e Acquired hallux limitus of left foot acute Delayed wound healing acute Localized edema acute 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 acute Chronic ulcer of left foot with fat layer exposed chronic Achilles rupture, right acut e Acquired hallux limitus of left foot acute Delayed wound healing acute Localized edema acute 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 acute Chronic ulcer of left foot with fat layer exposed chronic [facility] Work Phone: Evaluation note* Diagnosis Type 2 diabetes mellitus with diabetic polyneuropathy, with long-term current use of insulin (HCC)- Primary 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d by mild nonproliferative retinopathy and macular edema, with long-term current use of insulin ([facility]) Vitamin D deficiency Unspecified vitamin D deficiency Essential hypertension Unspecified essential hypertension Mixed hyperlipidemia Class 3 severe obesity with serious comorbidity and body mass index (BMI) of 45.0 to 49.9 in adult, unspecified obesity type (HCC) [facility] Diagnosis Onset Date Resolution Status Achilles rupture, right acut e Acquired hallux limitus of left foot acute Delayed wound healing acute Localized edema acute 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 acute Chronic ulcer of left foot with fat layer exposed chronic Achilles rupture, right acut e Acquired hallux limitus of left foot acute Delayed wound healing acute Localized edema acute 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 acute Chronic ulcer of left foot with fat layer exposed chronic Achilles rupture, right acut e Acquired hallux limitus of left foot acute Delayed wound healing acute Localized edema acute 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 acute Chronic ulcer of left foot with fat layer exposed chronic Achilles rupture, right acut e Acquired hallux limitus of left foot acute Delayed wound healing acute Localized edema acute 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 acute Chronic ulcer of left foot with fat layer exposed chronic Type 2 diabetes mellitus with diabetic polyneuropathy acute Non-pressure chronic ulcer o f other part of left foot with fat layer exposed chronic Cellulitis of left lower limb resolved [facility] Work Phone: Evaluation note* Diagnosis Type 2 diabetes mellitus with diabetic polyneuropathy, with long-term current use of insulin (HCC) 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d by mild nonproliferative retinopathy and macular edema, with long-term current use of insulin (HCC) [facility] [facility]* Diagnosis Type 2 diabetes mellitus with [...] obesity type (HCC) documented in this encounter [facility] note* Diagnosis Onset Date Resolution Status Achilles rupture, right acut e Acquired hallux limitus of left foot acute Delayed wound healing acute Localized edema acute 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 acute Chronic ulcer of left foot with fat layer exposed chronic Achilles rupture, right acut e Acquired hallux limitus of left foot acute Delayed wound healing acute Localized edema acute 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 acute Chronic ulcer of left foot with fat layer exposed chronic Type 2 diabetes mellitus with diabetic polyneuropathy acute Non-pressure chronic ulcer o f other part of left foot with fat layer exposed chronic Cellulitis of left lower limb resolved [facility] Work Phone: Evaluation note* Diagnosis Type 2 diabetes mellitus with diabetic polyneuropathy, with long-term current use of insulin (HCC)- Primary 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d by mild nonproliferative retinopathy and macular edema, with long-term current use of insulin ([facility]) Vitamin D deficiency Unspecified vitamin D deficiency Essential hypertension Unspecified essential hypertension Mixed hyperlipidemia Class 3 severe obesity with serious comorbidity and body mass index (BMI) of 40.0 to 44.9 in adult, unspecified obesity type (HCC) [facility] noteNo assessment information availableWC[facility] Work Phone: Evaluation note* Diagnosis Onset Date Resolution Status Achilles rupture, right acut e Foot pain, right acute Type 2 diabetes mellitus with diabetic polyneuropathy acute Non-pressure chronic ulcer o f other part of right foot with fat layer exposed resolved [facility] Work Phone: Evaluation note* Diagnosis 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, with long-term current use of insulin ([facility]) documented in this encounter [facility] note* Diagnosis Bilateral carpal tunnel syndrome- Primary Carpal tunnel syndrome documented in this encounter [facility] note* Diagnosis Type 2 diabetes mellitus with diabetic polyneuropathy (HCC) Type II or unspecified type diabetes mellitus with neurological manifestations, not stated as uncontrolled [facility]* Diagnosis Onset Date Resolution Status Status post total right knee replacement acute [facility] Work Phone: Evaluation note* Diagnosis 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, with long-term current use of insulin ([facility])- Primary [facility] Diagnosis 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, with long-term current use of insulin (HCC) Type 2 diabetes mellitus with diabetic polyneuropathy, with long-term current use of insulin ([facility]) [facility]* Diagnosis 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, with long-term current use of insulin (HCC) Type 2 diabetes mellitus with diabetic polyneuropathy, with long-term current use of insulin (HCC) [facility]* Diagnosis Bilateral carpal tunnel syndrome- Primary Carpal tunnel syndrome Bilateral carpal tunnel syndrome Carpal tunnel syndrome documented in this encounter [facility] note* Diagnosis Pre-operative examination- Primary Preoperative examination, unspecified Type 2 diabetes mellitus with diabetic polyneuropathy, with long-term current use of insulin ([facility]) Class 3 severe obesity with serious comorbidity and body mass index (BMI) of 40.0 to 44.9 in adult, unspecified obesity type (HCC) Sleep apnea, unspecified type Essential hypertension Unspecified essential hypertension Mixed hyperlipidemia Pulmonary nodule Solitary pulmonary nodule Smoker Tobacco use disorder Coronary artery disease involving k[place]ock coronary artery of klawock heart without angina pectoris History of total knee replacement, right Bilateral carpal tunnel syndrome Carpal tunnel syndrome * Assessment & Plan Note - Srikanth Ly APRN.CNP - 12/06/2023 3:26 PM EDT Associated Problem(s): History of total knee replacement, right Assessment: hx * Assessment & Plan Note - Srikanth Ly APRN.CNP - 12/06/2023 3:19 PM EDT Associated Problem(s): CAD (coronary artery disease) Assessment: seen on imaging, non-obstructing, c/w statin, ASA, BB. PCP manages. Denies CP, palpitations, sob, new or worsening cardiac symptoms. 05/2019 CT chest w/o IVCON Atherosclerotic calcifications are present within the thoracic aorta and coronary arteries. * Assessment & Plan Note - Srikanth Ly APRN.CNP - 12/06/2023 3:17 PM EDT Associated Problem(s): Smoker Assessment: daily cigars per pt, denies asthma, epic states hx COPD, pt denies, No PFTs on file. Lungs CTA, pulse ox 96% on RA * Assessment & Plan Note - Srikanth Ly APRN.CNP - 12/06/2023 3:11 PM EDT Associated Problem(s): Pulmonary nodule Assessment: no follow up on file Impression IMPRESSION: No acute pulmonary process is identified. Subcentimeter indeterminate pulmonary nodules measuring up to 6 mm in size. Incidental Finding: Follow-up for these incidentally detected lung nodules with a chest CT exam is recommended in 3-6 months. If stable on follow-up imaging, a repeat chest CT exam in 12 months (15-18 months from the initial exam) is recommended. Prominent, not pathologically enlarged lymph nodes in the chest are likely reactive. * Assessment & Plan Note - Srikanth Ly APRN.CNP - 12/06/2023 3:06 PM EDT Associated Problem(s): Type 2 diabetes mellitus with diabetic polyneuropathy, with long-term current use of insulin (HCC) Assessment: IDDM, and weekly injectable, following endo and Lyrica for neuropathy, newer A1c requested from [facility]. Last Mounjaro injection 11/30/23, pt knows to HOLD next dose prior to surgery A1c 07/02/2022 6.3 from [facility], to be scanned into epic Hemoglobin A1C (%) Date Value 04/24/2023 6.1 01/05/2020 11.0 Hemoglobin A1C (POCT) (%) Date Value 08/24/2022 7.0 * Assessment & Plan Note - Srikanth Ly APRN.CNP - 12/06/2023 3:05 PM EDT Associated Problem(s): Mixed hyperlipidemia Assessment: c/w statin * Assessment & Plan Note - Srikanth Ly APRN.CNP - 12/06/2023 3:04 PM EDT Associated Problem(s): Essential hypertension Assessment: controlled on rx Last 14 BP Last 14 Encounter BP Readings: Date: BP: 12/06/2023 122/72 08/24/2022 127/78 06/29/2022 131/74 05/25/2022 122/81 11/14/2021 118/71 03/09/2021 139/70 11/04/2020 117/68 09/21/2020 128/57 01/05/2020 101/68 01/23/2019 124/72 10/17/2018 151/93 07/14/2018 130/80 05/27/2017 126/72 01/21/2017 134/90 * Assessment & Plan Note - Srikanth Ly APRN.CNP - 12/06/2023 3:04 PM EDT Associated Problem(s): Sleep apnea Assessment: c/w CPAP * Assessment & Plan Note - Srikanth Ly APRN.CNP - 12/06/2023 3:04 PM EDT Associated Problem(s): Class 3 severe obesity with serious comorbidity and body mass index (BMI) of40.0 to 44.9 in adult (HCC) Assessment: Body mass index is 41.56 kg/m . documented in this encounter [facility] note* Diagnosis Bilateral carpal tunnel syndrome Carpal tunnel syndrome documented in this encounter [facility] note* Diagnosis Bilateral carpal tunnel syndrome- Primary Carpal tunnel syndrome [facility] Pre-operative examination- Primary Preoperative examination, unspecified Type 2 diabetes mellitus with diabetic polyneuropathy, with long-term current use of insulin (HCC) Class 3 severe obesity with serious comorbidity and body mass index (BMI) of 40.0 to 44.9 in adult, unspecified obesity type (HCC) Sleep apnea, unspecified type Essential hypertension Unspecified essential hypertension Mixed hyperlipidemia Pulmonary nodule Solitary pulmonary nodule Smoker Tobacco use disorder Coronary artery disease involving klawock coronary artery of klaw[place] heart without angina pectoris History of total knee replacement, right Bilateral carpal tunnel syndrome- Primary Carpal tunnel syndrome [facility]* Diagnosis Pre-operative examination- Primary Preoperative examination, unspecified Type 2 diabetes mellitus with diabetic polyneuropathy, with long-term current use of insulin (HCC) Class 3 severe obesity with serious comorbidity and body mass index (BMI) of 40.0 to 44.9 in adult, unspecified obesity type (HCC) Sleep apnea, unspecified type Essential hypertension Unspecified essential hypertension Mixed hyperlipidemia Pulmonary nodule Solitary pulmonary nodule Smoker Tobacco use disorder Coronary artery disease involving k[place]ock coronary artery of k[place] heart without angina pectoris History of total knee replacement, 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, with long-term current use of insulin (HCC)- Primary Type 2 diabetes mellitus with diabetic polyneuropathy, with long-term current use of insulin (HCC) Type 2 diabetes mellitus with microalbuminuria, with long-term current use of insulin (HCC) Hypoglycemia due to type 2 diabetes mellitus (HCC) Essential hypertension Unspecified essential hypertension Mixed hyperlipidemia Class 3 severe obesity with serious comorbidity and body mass index (BMI) of 40.0 to 44.9 in adult, unspecified obesity type (HCC) [facility]* Diagnosis Carpal tunnel syndrome, bilateral upper limbs- Primary Bilateral carpal tunnel syndrome Carpal tunnel syndrome Paresthesia of skin Disturbance of skin sensation [facility]* Diagnosis Pre-operative examination- Primary Preoperative examination, unspecified Type 2 diabetes mellitus with diabetic polyneuropathy, with long-term current use of insulin (HCC) Class 3 severe obesity with serious comorbidity and body mass index (BMI) of 40.0 to 44.9 in adult, unspecified obesity type (HCC) Sleep apnea, unspecified type Essential hypertension Unspecified essential hypertension Mixed hyperlipidemia Pulmonary nodule Solitary pulmonary nodule Smoker Tobacco use disorder Coronary artery disease involving k[place] coronary artery of [place] heart without angina pectoris History of total knee replacement, 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, with long-term current use of insulin (HCC)- Primary Type 2 diabetes mellitus with diabetic polyneuropathy, with long-term current use of insulin (HCC) Type 2 diabetes mellitus with microalbuminuria, with long-term current use of insulin ([facility]) Hypoglycemia due to type 2 diabetes mellitus (HCC) Essential hypertension Unspecified essential hypertension Mixed hyperlipidemia Amyloidosis, unspecified type (HCC) Obesity, Class II, BMI 35-39.9 Obesity, unspecified Vitamin D deficiency Unspecified vitamin D deficiency Abnormal results of thyroid function studies Nonspecific abnormal results of thyroid function study [facility] Diagnosis Pre-operative examination- Primary Preoperative examination, unspecified Type 2 diabetes mellitus with diabetic polyneuropathy, with long-term current use of insulin ([facility]) Class 3 severe obesity with serious comorbidity and body mass index (BMI) of 40.0 to 44.9 in adult, unspecified obesity type ([facility]) Sleep apnea, unspecified type Essential hypertension Unspecified essential hypertension Mixed hyperlipidemia Pulmonary nodule Solitary pulmonary nodule Smoker Tobacco use disorder Coronary artery disease involving k[place] coronary artery of [place] heart without angina pectoris History of total knee replacement, 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, with long-term current use of insulin ([facility])- Primary [facility] Additional Instructions keep dressing clean, dry and intact until follow up follow up in 1 week maintain heel weightbearing status in cam walking boot on left foot, limit ambulation to transfer within home ice behind knee 3 times a day elevate limb above heart at rest [facility] Discharge instructions Additional Instructions Patient will be maintain nonweightbearing to right lower extremity assisted by crutches, walker, or knee scooter. Patient will keep cast clean dry and intact. Patient taking pain medication per pain management. Patient should elevate right lower extremity above the level heart and ice behind the knee 3 times a day for 15 minutes while resting Patient should contact our office or present to the ED with any issues during the postoperative course including but not limited to chest pain calf pain shortness of breath or signs and symptoms of infection which patient has been counseled on. Patient will follow up in my office in 1 week. Implant [facility]?: [facility] Work Phone: Reason for referral (narrative)* Outpatient Procedure (Routine) - Pending Review Specialty Diagnoses / Procedures Referred By Contac t Referred To [facility] Diagnoses Bilateral carpal tunnel syndrome Procedures EMG(NEURO/NI) NERVE CONDUCTION STUDIES 9-10 STUDIES Valeria Mercer MD [address] [place] [address] [facility] [address] [place] [address] Referral ID Status Reason Start Date Expiration Date Visits Requested Visits Authorized [id number] Pending Review Auto-Generat ed Referral 06/18/2023 06/18/2024 1 1 [facility] Summary Purpose Family History No Family History Records Found Relationship Condition Age at Onset Recorded Date/T maryjo mother Malignant neoplasm Unknown Hypertension Unknown Diabetes mellitus Unknown father Malignant neoplasm Unknown Advance Directives No Advanced Directives Records FoundDocuments on File Type Date Recorded 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 ACP-Advance Directive ACP-Power of Accounting Specialist Documents on File Type Date Recorded 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 Advance Directives and Living Will Power of Accounting Specialist Documents on File Type Date Recorded 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 Advance Directive(s) 11/01/2015 6:32 AM Advance Directive Response Recorded Date/ Time Living Will Yes October 07, 2020 2 :15pm Power of Accounting Specialist Yes October 07, 2020 2:15pm Documents on File Type Date Recorded 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 Advance Directive(s) 11/01/2015 6:32 AM Advance Directive Response Recorded Date/ Time Living Will Yes October 07, 2020 1 :15pm Power of Accounting Specialist Yes October 07, 2020 1:15pm Advance Directive Response Recorded Date/ Time Name of Medical Power of Accounting Specialist LEROY May 28, 2022 4:14pm Living Will Yes May 28 4:14pm Power of Accounting Specialist Yes May 28, 2022 4:14pm Advance Directive Response Recorded Date/ Time Name of Medical Power of Accounting Specialist LEROY May 28, 2022 5:14pm Living Will Yes May 28 5:14pm Power of Accounting Specialist Yes May 28, 2022 5:14pm Advance Directive Response Recorded Date/ Time Living Will Yes May 28 5:14pm Power of Accounting Specialist Yes May 28, 2022 5:14pm Advance Directive Response Recorded Date/ Time Name of Medical Power of Accounting Specialist UNSURE December 14, 2022 3:13pm Living Will Yes December 14 3:13pm Power of Accounting Specialist Yes December 14, 2 023 3:13pm Advance Directive Response Recorded Date/ Time Name of Medical Power of Accounting Specialist UNSURE December 14, 2022 2:13pm Living Will Yes December 14 2:13pm Power of Accounting Specialist Yes December 14, 2 023 2:13pm Advance Directive Response Recorded Date/ Time Living Will Yes June 24, 2 024 10:28am Power of Accounting Specialist Yes June 24, 2023 10:28am Advance Directive Response Recorded Date/ Time Name of Medical Power of Accounting Specialist LEROY BELTRE July 17, 2023 4:10pm Living Will Yes July 17, 2023 4:10pm Power of Accounting Specialist Yes July 16 4:10pm Chief Complaint and Reason for Visit Chief Complaint wound Reason for Visit Achilles rupture, ri ght Acquired hallux limitus of left foot Delayed wound healing Difficulty in walking, not elsewhere classified Localized edema 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 of left foot with fat layer exposed Chief Complaint wound wound Reason for Visit Achilles rupture, ri ght Acquired hallux limitus of left foot Delayed wound healing Difficulty in walking, not elsewhere classified Localized edema 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 of left foot with fat layer exposed Achilles rupture, right Acquired hallux limitus of left foot Delayed wound healing Difficulty in walking, not elsewhere classified Localized edema 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 of left foot with fat layer exposed Chief Complaint wound wound wound Reason for Visit Achilles rupture, ri ght Acquired hallux limitus of left foot Delayed wound healing Difficulty in walking, not elsewhere classified Localized edema 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 of left foot with fat layer exposed Achilles rupture, right Acquired hallux limitus of left foot Delayed wound healing Difficulty in walking, not elsewhere classified Localized edema 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 of left foot with fat layer exposed Achilles rupture, right Acquired hallux limitus of left foot Delayed wound healing Localized edema 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 of left foot with fat layer exposed Chief Complaint wound wound wound wound RT ACHILLES TENDON RUPTURE, PAIN RLE Reason for Visit Achilles rupture, ri ght Acquired hallux limitus of left foot Delayed wound healing Difficulty in walking, not elsewhere classified Localized edema 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 of left foot with fat layer exposed Achilles rupture, right Acquired hallux limitus of left foot Delayed wound healing Difficulty in walking, not elsewhere classified Localized edema 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 of left foot with fat layer exposed Achilles rupture, right Acquired hallux limitus of left foot Delayed wound healing Localized edema 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 of left foot with fat layer exposed Achilles rupture, right Acquired hallux limitus of left foot Delayed wound healing Localized edema 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 of left foot with fat layer exposed Chief Complaint wound wound wound RT ACHILLES TENDON RUPTURE, PAIN RLE wound Reason for Visit Achilles rupture, ri ght Acquired hallux limitus of left foot Delayed wound healing Difficulty in walking, not elsewhere classified Localized edema 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 of left foot with fat layer exposed Achilles rupture, right Acquired hallux limitus of left foot Delayed wound healing Difficulty in walking, not elsewhere classified Localized edema 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 of left foot with fat layer exposed Achilles rupture, right Acquired hallux limitus of left foot Delayed wound healing Localized edema 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 of left foot with fat layer exposed Achilles rupture, right Acquired hallux limitus of left foot Delayed wound healing Localized edema 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 of left foot with fat layer exposed Chief Complaint wound wound RT ACHILLES TENDON RUPTURE, PAIN RLE wound wound Reason for Visit Achilles rupture, ri ght Acquired hallux limitus of left foot Delayed wound healing Difficulty in walking, not elsewhere classified Localized edema 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 of left foot with fat layer exposed Achilles rupture, right Acquired hallux limitus of left foot Delayed wound healing Localized edema 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 of left foot with fat layer exposed Achilles rupture, right Acquired hallux limitus of left foot Delayed wound healing Localized edema 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 of left foot with fat layer exposed Achilles rupture, right Acquired hallux limitus of left foot Delayed wound healing Foot pain, right Localized edema 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 of left foot with fat layer exposed Chief Complaint wound RT ACHILLES TENDON RUPTURE, PAIN RLE wound wound wound Reason for Visit Achilles rupture, ri ght Acquired hallux limitus of left foot Delayed wound healing Localized edema 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 of left foot with fat layer exposed Achilles rupture, right Acquired hallux limitus of left foot Delayed wound healing Localized edema 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 of left foot with fat layer exposed Achilles rupture, right Acquired hallux limitus of left foot Delayed wound healing Foot pain, right Localized edema 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 of left foot with fat layer exposed Achilles rupture, right Acquired hallux limitus of left foot Delayed wound healing Localized edema 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 of left foot with fat layer exposed Chief Complaint RT ACHILLES TENDON R UPTURE, PAIN RLE wound wound wound wound Reason for Visit Achilles rupture, ri ght Acquired hallux limitus of left foot Delayed wound healing Localized edema 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 of left foot with fat layer exposed Achilles rupture, right Acquired hallux limitus of left foot Delayed wound healing Foot pain, right Localized edema 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 of left foot with fat layer exposed Achilles rupture, right Acquired hallux limitus of left foot Delayed wound healing Localized edema 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 of left foot with fat layer exposed Achilles rupture, right Acquired hallux limitus of left foot Delayed wound healing Localized edema 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 of left foot with fat layer exposed Chief Complaint wound wound wound wound Reason for Visit Achilles rupture, ri ght Acquired hallux limitus of left foot Delayed wound healing Foot pain, right Localized edema 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 of left foot with fat layer exposed Achilles rupture, right Acquired hallux limitus of left foot Delayed wound healing Localized edema 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 of left foot with fat layer exposed Achilles rupture, right Acquired hallux limitus of left foot Delayed wound healing Localized edema 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 of left foot with fat layer exposed Achilles rupture, right Acquired hallux limitus of left foot Delayed wound healing Localized edema 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 of left foot with fat layer exposed Chief Complaint wound wound wound wound Reason for Visit Achilles rupture, ri ght Acquired hallux limitus of left foot Delayed wound healing Localized edema 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 of left foot with fat layer exposed Achilles rupture, right Acquired hallux limitus of left foot Delayed wound healing Localized edema 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 of left foot with fat layer exposed Achilles rupture, right Acquired hallux limitus of left foot Delayed wound healing Localized edema 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 of left foot with fat layer exposed Achilles rupture, right Acquired hallux limitus of left foot Delayed wound healing Localized edema 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 of left foot with fat layer exposed Chief Complaint wound wound wound wound LEFT HALLUX IPJ ARTHROPLASTY Reason for Visit Achilles rupture, ri ght Acquired hallux limitus of left foot Delayed wound healing Localized edema 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 of left foot with fat layer exposed Achilles rupture, right Acquired hallux limitus of left foot Delayed wound healing Localized edema 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 of left foot with fat layer exposed Achilles rupture, right Acquired hallux limitus of left foot Delayed wound healing Localized edema 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 of left foot with fat layer exposed Achilles rupture, right Acquired hallux limitus of left foot Delayed wound healing Localized edema 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 of left foot with fat layer exposed Type 2 diabetes mellitus with diabetic polyneuropathy Non-pressure chronic ulcer of other part of left foot with fat layer exposed Cellulitis of left lower limb Chief Complaint wound wound wound wound LEFT HALLUX IPJ ARTHROPLASTY LOCALIZED SWELLING BILATERAL , add on today Reason for Visit Achilles rupture, ri ght Acquired hallux limitus of left foot Delayed wound healing Localized edema 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 of left foot with fat layer exposed Achilles rupture, right Acquired hallux limitus of left foot Delayed wound healing Localized edema 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 of left foot with fat layer exposed Achilles rupture, right Acquired hallux limitus of left foot Delayed wound healing Localized edema 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 of left foot with fat layer exposed Achilles rupture, right Acquired hallux limitus of left foot Delayed wound healing Localized edema 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 of left foot with fat layer exposed Type 2 diabetes mellitus with diabetic polyneuropathy Non-pressure chronic ulcer of other part of left foot with fat layer exposed Cellulitis of left lower limb Chief Complaint wound wound LEFT HALLUX IPJ ARTHROPLASTY LOCALIZED SWELLING BILATERAL , add on today Reason for Visit Achilles rupture, ri ght Acquired hallux limitus of left foot Delayed wound healing Localized edema 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 of left foot with fat layer exposed Achilles rupture, right Acquired hallux limitus of left foot Delayed wound healing Localized edema 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 of left foot with fat layer exposed Type 2 diabetes mellitus with diabetic polyneuropathy Non-pressure chronic ulcer of other part of left foot with fat layer exposed Cellulitis of left lower limb Chief Complaint EORDER FOR LAB WORK AND A CHEST XRAY Chief Complaint EORDER FOR LAB WORK AND A CHEST XRAY Right Achilles Tendon Repair with F Reason for Visit Achilles rupture, ri ght Foot pain, 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 Non-pressure chronic ulcer of other part of right foot with fat layer exposed Chief Complaint EORDER FOR LAB WORK AND A CHEST XRAY Right Achilles Tendon Repair with F Pain in right leg Reason for Visit Achilles rupture, ri ght Foot pain, 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 Non-pressure chronic ulcer of other part of right foot with fat layer exposed Chief Complaint Pain in right leg OSTEOARTHRITIS RIGHT KNEE. RX HERE Unilateral primary osteoarthritis, right knee Chief Complaint Pain in right leg OSTEOARTHRITIS RIGHT KNEE. RX HERE Unilateral primary osteoarthritis, right knee ROBOTIC ASSISTED RT TOTAL KNEE; PREOP ROBOTIC ASSISTED RT TOTAL KNEE; PREOP Reason for Visit Status post total ri ght knee replacement Chief Complaint OSTEOARTHRITIS RIGHT KNEE. RX HERE Unilateral primary osteoarthritis, right knee ROBOTIC ASSISTED RT TOTAL KNEE; PREOP ROBOTIC ASSISTED RT TOTAL KNEE; PREOP Reason for Visit Status post total ri ght knee replacement Reason for Referral Specialty Diagnoses / Procedures Referred By Austin younger Referred To Contact Diagnoses Type 2 diabetes mellitus with diabetic polyneuropathy, with long-term current use of insulin (HCC) Sharlene Escobar, [employer]ICAL B[employer]ER [address] [place] [address] Referral ID Status Reason Start Date Expiration Date V isits Requested Visits Authorized [id number] Authorized 10/15/2021 11/14/2022 1 1 Specialty Diagnoses / Procedures Referred By Austin younger Referred To Contact Diagnoses 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, with long-term current use of insulin (HCC) Procedures CONSULT TO DIABETES EDUCATION DSME/MNT MEDICAL NUTRITION ASSMT&IVNTJ INDIV EACH 15 [place] MEDICAL NUTRITION ASS[place]&IVNTJ INDIV EACH 15 [place] MEDICAL NUTRITION ASSMT&IVNTJ INDIV EACH 15 [place] MEDICAL NUTRITION ASSMT&IVNTJ INDIV EACH 15 [place] Sharlene Escobar, [employer]ICAL B[employer]ER [address] [place] [id number] Referral ID Status Reason Start Date Expiration Date Visits Requested Visits Authorized [id number] Authorized PCP Requested Referral 08/23/2023 08/22/2024 1 1 Additional Source Comments (unrecognized sect ion and content) No Status Records FoundNo Status Records FoundNo Status Records FoundNo Status Records FoundNo Status Records FoundNo Status Records FoundNo Status Records Found INFORMATION SOURCE (unrecogn ized section and content) DATE CREATED AUTHOR 12/05/2017 [facility] DATE CREATED AUTHOR AUTHOR'S ORGANIZ ATION 02/14/2018 [facility] [place] DATE CREATED AUTHOR AUTHOR'S ORGANIZ ATION 10/13/2020 [facility] DATE CREATED AUTHOR AUTHOR'S ORGANIZ ATION 05/28/2021 [facility] DATE CREATED AUTHOR AUTHOR'S ORGANIZ ATION 01/31/2024 [facility] DATE CREATED AUTHOR AUTHOR'S ORGANIZ ATION 09/08/2024 [facility] DATE CREATED AUTHOR AUTHOR'S ORGANIZ ATION 11/23/2024 [facility] Reason for Visit (unrecogniz ed section and content) Reason Comments Wound Check both feet Reason Comments Cough Reason Comments Insurance Authorization [...] Comments [facility] for [facility] office note Reason Comments Diabetic Eye Exam 03/07/2023 Reason Comments Insurance Authorization Mounjaro 5 mg an d 7.5 mg Reason Onset Date Comments Refill Request 06/24/2023 Reason Comments Refill Request Reason Comments PA--FIASP FLEXTOUCH (APPROVED) Reason Comments Medication Problem Reason Comments Dilated Eye Exam Report 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 [place] [address] Referral ID Status Reason Start Date Expiration Date V isits Requested Visits Authorized [id number] Closed Auto-Generate d Referral 06/18/2023 06/18/2024 1 1 Reason Comments PA--FreeStyle Alonso 2 Sensors Reason Comments Follow Up Insulin Dependent Diabetes Mellitus Reason Comments PA--Mounjaro Reason Onset Date Comments Refill Request 07/09/2024 Reason Comments Office Notes [facility] Scheduled Active and Recently Administ ered Medications (unrecognized section and content) Medication Order 10/05/2020 10/06/2020 10/07/2020 0.9 % sodium chloride bolus (COMPLETED) 500 mL (3.44 mL/kg), Intravenous, at 1,000 mL/hr, Administer over 0.5 Hours, ONCE, On Sat10/07/20 at 1049, For 1 dose 1105 (New Bag - Prov ider: Lupe Lewis RN)1250 (Stopped - Provider: Lupe Lewis RN) piperacillin-tazobactam (ZOSYN) 3,375 mg in dextrose 5 % 50 mL IVPB (add-vantage) (COMPLETED) 3,375 mg, Intravenous, ONCE, 1 dose, On Sat10/07/20 at 1049 1105 (New Bag - Prov ider: Lupe Lewis RN)1155 (Stopped - Provider: Lupe Lewis RN) vancomycin 1000 MG IVPB in 250 mL D5W add-vantage (COMPLETED) 1,000 mg (6.89 mg/kg), Intravenous, at 250 mL/hr, Administer over 60 Minutes, ONCE, On Sat10/07/20 at 1049, For 1 dose 1155 (New Bag - Prov ider: Lupe Lewis RN)1308 (Stopped - Provider: Lupe Lewis RN) No Frequency Medication Order 10/05/2020 10/06/2020 10/07/2020 dextrose 5 % solution Starting on Sat10/07/20 at 1101, For 1 dose, LUPE LEWIS: cabinet override 1102 (Due) Scheduled Medication Order 12/09/2023 12/10/2023 12/11/2023 oxyCODONE IR 5 mg tab(s) (ROXICODONE) (COMPLETED) 5 mg, ORAL, ONCE, 1 dose, On Sat12/11/23 at 1200, Preprocedure 1148 (Given - Provid er: Shi Ware RN) Continuous Medication Order 12/09/2023 12/10/202312/1012/11/2023 lactated ringers iv infusion (CANCELED) 5-30 mL/hr, INTRAVENOUS, CONTINUOUS, Starting on Sat12/11/23 at 1100, Until Sat12/11/23 at 1329, Preprocedure 1100 (New Bag/Syring e/Bottle - Provider: Shi Ware RN)1220 (Stopped - Provider: Tala Atwood APRN.CRNA - Comment: Switch to gravity)1221 (Restarted - Provider: Tala Atwood APRN.CRNA)1324 (Infusion Complete - Provider: Tala Atwood APRN.CRNA) lactated ringers iv infusion 5-30 mL/hr, INTRAVENOUS, CONTINUOUS, Starting on Sat12/11/23 at 1400, Until [place] 12/12/23 at 0303, Recovery or Phase I (only) 1400 (Due) PRN Medication Order 12/09/2023 12/10/2023 12/11/2023 fentaNYL 50 mcg/mL 50 mcg injection (SUBLIMAZE) 50 mcg, INTRAVENOUS, EVERY 10 MINUTES NEEDED, 4 doses, Starting on Sat12/11/23 at 1355, Until [place] 12/12/23 at 0303, FIRST LINE THERAPY for pain score 1 or greater, USE FOR MILD PAIN (1-3) ONLY IF PATIENT IS UNABLE TO TOLERATE ORAL THERAPY, Recovery or Phase I (only) HYDROmorphone 0.5 mg injection (DILAUDID) 0.5 mg, INTRAVENOUS, EVERY 5 MINUTES NEEDED, 2 doses, Starting on Sat12/11/23 at 1355, Until [place] 12/12/23 at 0303, SECOND LINE THERAPY for pain score 1 or greater, USE FOR MILD PAIN (1-3) ONLY IF PATIENT IS UNABLE TO TOLERATE ORAL THERAPY Caution: IV hydromorphone is approximately 8 times MORE POTENT than IV morphine. For example, hydromorphone 1mg IV = morphine 8mg IV, Recovery or Phase I (only) lidocaine 1%-EPINEPHrine 1:100,000 injection (CANCELED) X (OR/PROCEDURE) PRN, Starting on Sat12/11/23 at 1231, Until Sat12/11/23 at 1330, Intraprocedure 1231 (Given - Provid er: Reji Mansfield MD)1256 (Given - Provider: Reji Mansfield MD) meperidine (PF) 12.5 mg injection (DEMEROL) 12.5 mg, INTRAVENOUS, EVERY 10 MINUTES NEEDED, 2 doses, Starting on Sat12/11/23 at 1356, Until [place] 12/12/23 at 0303, for shivering, May Repeat 12.5 mg in 10 minutes X1, Recovery or Phase I (only) 1404 (Given - Provid er: Blanche Wolf RN) ondansetron (PF) 4 mg injection (ZOFRAN)(Linked Group 1) 4 mg, INTRAVENOUS, EVERY 6 HOURS NEEDED, Starting on Sat12/11/23 at 1355, Until [place] 12/12/23 at 0303, Nausea/Vomiting - Second Line - Parenteral, EVERY 6 HOURS NEEDED Give IV push over 2 minutes. Use when patient unable to take medications by mouth., Recovery or Phase I (only) ondansetron orally disintegrating 4 mg tab(s) (ZOFRAN ODT)(Linked Group 1) 4 mg, ORAL, EVERY 6 HOURS NEEDED, Starting on Sat12/11/23 at 1355, Until [place] 12/12/23 at 0303, Nausea/Vomiting - Second Line - Enteral, EVERY 6 HOURS NEEDED Use when patient able to take medications by mouth. Place tablet on tongue and allow to dissolve; do not chew. Open packaging using dry hands; do not push tablet through packaging., Recovery or Phase I (only) oxyCODONE IR 5-10 mg tab(s) (ROXICODONE) 5-10 mg, ORAL, NEEDED, 1 dose, Starting on Sat12/11/23 at 1355, Until [place] 12/12/23 at 0303, Moderate Pain (4-6) - Enteral, Recovery or Phase I (only) prochlorperazine 10 mg injection (COMPAZINE) 10 mg, INTRAVENOUS, EVERY 6 HOURS NEEDED, Starting on Sat12/11/23 at 1355, Until [place] 12/12/23 at 0303, Nausea/Vomiting - First Line - Parenteral, EVERY 6 HOURS NEEDED Protect From Light, Recovery or Phase I (only) Linked Groups Order Group 1: ondansetron orally disintegrating 4 mg tab(s) (ZOFRAN ODT)Jump to med 4 mg, ORAL, EVERY 6 HOURS NEEDED, Starting on Sat12/11/23 at 1355, Until [place] 12/12/23 at 0303, Nausea/Vomiting - Second Line - Enteral, EVERY 6 HOURS NEEDED Use when patient able to take medications by mouth. Place tablet on tongue and allow to dissolve; do not chew. Open packaging using dry hands; do not push tablet through packaging., Recovery or Phase I (only) Or ondansetron (PF) 4 mg injection (ZOFRAN)Jump to med 4 mg, INTRAVENOUS, EVERY 6 HOURS NEEDED, Starting on Sat12/11/23 at 1355, Until [place] 12/12/23 at 0303, Nausea/Vomiting - Second Line - Parenteral, EVERY 6 HOURS NEEDED Give IV push over 2 minutes. Use when patient unable to take medications by mouth., Recovery or Phase I (only) Source Comments (unrecognize d section and content) In the event this informatio n is protected by the Federal Confidentiality of Alcohol and Drug Abuse Patient Records regulations: The Federal rules restrict any use of the information to criminally investigate or prosecute any alcohol or drug abuse patient.[facility] the event this information is protected by the Federal Confidentiality of Alcohol and Drug Abuse Patient Records regulations: The Federal rules restrict any use of the information to criminally investigate or prosecute any alcohol or drug abuse patient.[facility]In the event this information is protected by the Federal Confidentiality of Alcohol and Drug Abuse Patient Records regulations: The Federal rules restrict any use of the information to criminally investigate or prosecute any alcohol or drug abuse patient.[facility]In the event this information is protected by the Federal Confidentiality of Alcohol and Drug Abuse Patient Records regulations: The Federal rules restrict any use of the information to criminally investigate or prosecute any alcohol or drug abuse patient.[facility]In the event this information is protected by the Federal Confidentiality of Alcohol and Drug Abuse Patient Records regulations: The Federal rules restrict any use of the information to criminally investigate or prosecute any alcohol or drug abuse patient.[facility]In the event this information is protected by the Federal Confidentiality of Alcohol and Drug Abuse Patient Records regulations: The Federal rules restrict any use of the information to criminally investigate or prosecute any alcohol or drug abuse patient.[facility]In the event this information is protected by the Federal Confidentiality of Alcohol and Drug Abuse Patient Records regulations: The Federal rules restrict any use of the information to criminally investigate or prosecute any alcohol or drug abuse patient.[facility]In the event this information is protected by the Federal Confidentiality of Alcohol and Drug Abuse Patient Records regulations: The Federal rules restrict any use of the information to criminally investigate or prosecute any alcohol or drug abuse patient.[facility]In the event this information is protected by the Federal Confidentiality of Alcohol and Drug Abuse Patient Records regulations: The Federal rules restrict any use of the information to criminally investigate or prosecute any alcohol or drug abuse patient.[facility]In the event this information is protected by the Federal Confidentiality of Alcohol and Drug Abuse Patient Records regulations: The Federal rules restrict any use of the information to criminally investigate or prosecute any alcohol or drug abuse patient.[facility]In the event this information is protected by the Federal Confidentiality of Alcohol and Drug Abuse Patient Records regulations: The Federal rules restrict any use of the information to criminally investigate or prosecute any alcohol or drug abuse patient.[facility] HospitalIn the event this information is protected by the Federal Confidentiality of Alcohol and Drug Abuse Patient Records regulations: The Federal rules restrict any use of the information to criminally investigate or prosecute any alcohol or drug abuse patient.[facility]In the event this information is protected by the Federal Confidentiality of Alcohol and Drug Abuse Patient Records regulations: The Federal rules restrict any use of the information to criminally investigate or prosecute any alcohol or drug abuse patient.[facility]In the event this information is protected by the Federal Confidentiality of Alcohol and Drug Abuse Patient Records regulations: The Federal rules restrict any use of the information to criminally investigate or prosecute any alcohol or drug abuse patient.[facility] HospitalIn the event this information is protected by the Federal Confidentiality of Alcohol and Drug Abuse Patient Records regulations: The Federal rules restrict any use of the information to criminally investigate or prosecute any alcohol or drug abuse patient.[facility]In the event this information is protected by the Federal Confidentiality of Alcohol and Drug Abuse Patient Records regulations: The Federal rules restrict any use of the information to criminally investigate or prosecute any alcohol or drug abuse patient.[facility]In the event this information is protected by the Federal Confidentiality of Alcohol and Drug Abuse Patient Records regulations: The Federal rules restrict any use of the information to criminally investigate or prosecute any alcohol or drug abuse patient.[facility] HospitalIn the event this information is protected by the Federal Confidentiality of Alcohol and Drug Abuse Patient Records regulations: The Federal rules restrict any use of the information to criminally investigate or prosecute any alcohol or drug abuse patient.[facility]In the event this information is protected by the Federal Confidentiality of Alcohol and Drug Abuse Patient Records regulations: The Federal rules restrict any use of the information to criminally investigate or prosecute any alcohol or drug abuse patient.[facility]In the event this information is protected by the Federal Confidentiality of Alcohol and Drug Abuse Patient Records regulations: The Federal rules restrict any use of the information to criminally investigate or prosecute any alcohol or drug abuse patient.[facility] HospitalIn the event this information is protected by the Federal Confidentiality of Alcohol and Drug Abuse Patient Records regulations: The Federal rules restrict any use of the information to criminally investigate or prosecute any alcohol or drug abuse patient.[facility] HospitalIn the event this information is protected by the Federal Confidentiality of Alcohol and Drug Abuse Patient Records regulations: The Federal rules restrict any use of the information to criminally investigate or prosecute any alcohol or drug abuse patient.[facility] HospitalIn the event this information is protected by the Federal Confidentiality of Alcohol and Drug Abuse Patient Records regulations: The Federal rules restrict any use of the information to criminally investigate or prosecute any alcohol or drug abuse patient.[facility]In the event this information is protected by the Federal Confidentiality of Alcohol and Drug Abuse Patient Records regulations: The Federal rules restrict any use of the information to criminally investigate or prosecute any alcohol or drug abuse patient.[facility]In the event this information is protected by the Federal Confidentiality of Alcohol and Drug Abuse Patient Records regulations: The Federal rules restrict any use of the information to criminally investigate or prosecute any alcohol or drug abuse patient.[facility] HospitalIn the event this information is protected by the Federal Confidentiality of Alcohol and Drug Abuse Patient Records regulations: The Federal rules restrict any use of the information to criminally investigate or prosecute any alcohol or drug abuse patient.[facility] HospitalIn the event this information is protected by the Federal Confidentiality of Alcohol and Drug Abuse Patient Records regulations: The Federal rules restrict any use of the information to criminally investigate or prosecute any alcohol or drug abuse patient.[facility] HospitalIn the event this information is protected by the Federal Confidentiality of Alcohol and Drug Abuse Patient Records regulations: The Federal rules restrict any use of the information to criminally investigate or prosecute any alcohol or drug abuse patient.[facility] HospitalIn the event this information is protected by the Federal Confidentiality of Alcohol and Drug Abuse Patient Records regulations: The Federal rules restrict any use of the information to criminally investigate or prosecute any alcohol or drug abuse patient.[facility] HospitalIn the event this information is protected by the Federal Confidentiality of Alcohol and Drug Abuse Patient Records regulations: The Federal rules restrict any use of the information to criminally investigate or prosecute any alcohol or drug abuse patient.[facility]In the event this information is protected by the Federal Confidentiality of Alcohol and Drug Abuse Patient Records regulations: The Federal rules restrict any use of the information to criminally investigate or prosecute any alcohol or drug abuse patient.[facility] HospitalIn the event this information is protected by the Federal Confidentiality of Alcohol and Drug Abuse Patient Records regulations: The Federal rules restrict any use of the information to criminally investigate or prosecute any alcohol or drug abuse patient.[facility] HospitalIn the event this information is protected by the Federal Confidentiality of Alcohol and Drug Abuse Patient Records regulations: The Federal rules restrict any use of the information to criminally investigate or prosecute any alcohol or drug abuse patient.[facility] HospitalIn the event this information is protected by the Federal Confidentiality of Alcohol and Drug Abuse Patient Records regulations: The Federal rules restrict any use of the information to criminally investigate or prosecute any alcohol or drug abuse patient.[facility] HospitalIn the event this information is protected by the Federal Confidentiality of Alcohol and Drug Abuse Patient Records regulations: The Federal rules restrict any use of the information to criminally investigate or prosecute any alcohol or drug abuse patient.[facility] HospitalIn the event this information is protected by the Federal Confidentiality of Alcohol and Drug Abuse Patient Records regulations: The Federal rules restrict any use of the information to criminally investigate or prosecute any alcohol or drug abuse patient.[facility]In the event this information is protected by the Federal Confidentiality of Alcohol and Drug Abuse Patient Records regulations: The Federal rules restrict any use of the information to criminally investigate or prosecute any alcohol or drug abuse patient.[facility] HospitalIn the event this information is protected by the Federal Confidentiality of Alcohol and Drug Abuse Patient Records regulations: The Federal rules restrict any use of the information to criminally investigate or prosecute any alcohol or drug abuse patient.[facility] HospitalIn the event this information is protected by the Federal Confidentiality of Alcohol and Drug Abuse Patient Records regulations: The Federal rules restrict any use of the information to criminally investigate or prosecute any alcohol or drug abuse patient.[facility] HospitalIn the event this information is protected by the Federal Confidentiality of Alcohol and Drug Abuse Patient Records regulations: The Federal rules restrict any use of the information to criminally investigate or prosecute any alcohol or drug abuse patient.[facility] HospitalIn the event this information is protected by the Federal Confidentiality of Alcohol and Drug Abuse Patient Records regulations: The Federal rules restrict any use of the information to criminally investigate or prosecute any alcohol or drug abuse patient.[facility] HospitalIn the event this information is protected by the Federal Confidentiality of Alcohol and Drug Abuse Patient Records regulations: The Federal rules restrict any use of the information to criminally investigate or prosecute any alcohol or drug abuse patient.[facility] HospitalIn the event this information is protected by the Federal Confidentiality of Alcohol and Drug Abuse Patient Records regulations: The Federal rules restrict any use of the information to criminally investigate or prosecute any alcohol or drug abuse patient.[facility] HospitalIn the event this information is protected by the Federal Confidentiality of Alcohol and Drug Abuse Patient Records regulations: The Federal rules restrict any use of the information to criminally investigate or prosecute any alcohol or drug abuse patient.[facility] HospitalIn the event this information is protected by the Federal Confidentiality of Alcohol and Drug Abuse Patient Records regulations: The Federal rules restrict any use of the information to criminally investigate or prosecute any alcohol or drug abuse patient.[facility] HospitalIn the event this information is protected by the Federal Confidentiality of Alcohol and Drug Abuse Patient Records regulations: The Federal rules restrict any use of the information to criminally investigate or prosecute any alcohol or drug abuse patient.[facility] HospitalIn the event this information is protected by the Federal Confidentiality of Alcohol and Drug Abuse Patient Records regulations: The Federal rules restrict any use of the information to criminally investigate or prosecute any alcohol or drug abuse patient.[facility] HospitalIn the event this information is protected by the Federal Confidentiality of Alcohol and Drug Abuse Patient Records regulations: The Federal rules restrict any use of the information to criminally investigate or prosecute any alcohol or drug abuse patient.[facility] HospitalIn the event this information is protected by the Federal Confidentiality of Alcohol and Drug Abuse Patient Records regulations: The Federal rules restrict any use of the information to criminally investigate or prosecute any alcohol or drug abuse patient.[facility] HospitalIn the event this information is protected by the Federal Confidentiality of Alcohol and Drug Abuse Patient Records regulations: The Federal rules restrict any use of the information to criminally investigate or prosecute any alcohol or drug abuse patient.[facility]In the event this information is protected by the Federal Confidentiality of Alcohol and Drug Abuse Patient Records regulations: The Federal rules restrict any use of the information to criminally investigate or prosecute any alcohol or drug abuse patient.[facility] HospitalIn the event this information is protected by the Federal Confidentiality of Alcohol and Drug Abuse Patient Records regulations: The Federal rules restrict any use of the information to criminally investigate or prosecute any alcohol or drug abuse patient.[facility]In the event this information is protected by the Federal Confidentiality of Alcohol and Drug Abuse Patient Records regulations: The Federal rules restrict any use of the information to criminally investigate or prosecute any alcohol or drug abuse patient.[facility]In the event this information is protected by the Federal Confidentiality of Alcohol and Drug Abuse Patient Records regulations: The Federal rules restrict any use of the information to criminally investigate or prosecute any alcohol or drug abuse patient.[facility] HospitalIn the event this information is protected by the Federal Confidentiality of Alcohol and Drug Abuse Patient Records regulations: The Federal rules restrict any use of the information to criminally investigate or prosecute any alcohol or drug abuse patient.[facility]In the event this information is protected by the Federal Confidentiality of Alcohol and Drug Abuse Patient Records regulations: The Federal rules restrict any use of the information to criminally investigate or prosecute any alcohol or drug abuse patient.[facility] HospitalIn the event this information is protected by the Federal Confidentiality of Alcohol and Drug Abuse Patient Records regulations: The Federal rules restrict any use of the information to criminally investigate or prosecute any alcohol or drug abuse patient.[facility] HospitalIn the event this information is protected by the Federal Confidentiality of Alcohol and Drug Abuse Patient Records regulations: The Federal rules restrict any use of the information to criminally investigate or prosecute any alcohol or drug abuse patient.[facility]In the event this information is protected by the Federal Confidentiality of Alcohol and Drug Abuse Patient Records regulations: The Federal rules restrict any use of the information to criminally investigate or prosecute any alcohol or drug abuse patient.[facility] HospitalIn the event this information is protected by the Federal Confidentiality of Alcohol and Drug Abuse Patient Records regulations: The Federal rules restrict any use of the information to criminally investigate or prosecute any alcohol or drug abuse patient.[facility]In the event this information is protected by the Federal Confidentiality of Alcohol and Drug Abuse Patient Records regulations: The Federal rules restrict any use of the information to criminally investigate or prosecute any alcohol or drug abuse patient.[facility]In the event this information is protected by the Federal Confidentiality of Alcohol and Drug Abuse Patient Records regulations: The Federal rules restrict any use of the information to criminally investigate or prosecute any alcohol or drug abuse patient.[facility] HospitalIn the event this information is protected by the Federal Confidentiality of Alcohol and Drug Abuse Patient Records regulations: The Federal rules restrict any use of the information to criminally investigate or prosecute any alcohol or drug abuse patient.[facility] HospitalIn the event this information is protected by the Federal Confidentiality of Alcohol and Drug Abuse Patient Records regulations: The Federal rules restrict any use of the information to criminally investigate or prosecute any alcohol or drug abuse patient.[facility] Care Teams (unrecognized sec tion and content) 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 Relationship Specialty Start Date End Date Ricardo Abraham [address] [facility] [place] [address] PCP - General Cardiology 05/22/19 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 Relationship Specialty Start Date End Date Ricardo Abraham [address] [facility] [place] [address] PCP - General Cardiology 05/22/19 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 Relationship 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 Start Date End Date Ricardo Abraham [address] [facility] [place] [address] PCP - General Cardiology 05/22/19 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 Relationship Specialty Start Date End Date Ricardo Abraham [address] [facility] [place] [address] PCP - General Cardiology 05/22/19 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 Relationship Specialty Start Date End Date Ricardo Abraham [address] [facility] [place] [address] PCP - General Cardiology 05/22/19 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 Mario Yun , DPM Attending Provider Active Team Status: Inactive Member Role Status Dates RICARDO ABRAAHM MD Primary Care Provider Active Dr. Mario Yun DPM Attending Provider, Referring Provider Active Dr. 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 Relationship Specialty Start Date End Date Ricardo Abraham [address] [facility] [place] [address] PCP - General Cardiology 05/22/19 Team Status: Inactive Member Role Status Dates RICARDO ABRAHAM MD Primary Care Provider Active SOFIA GastelumM Attending Provider, Referring Provider Active 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 Relationship Specialty Start Date End Date Ricardo Abraham [address] [facility] [place] [address] PCP - General Cardiology 05/22/19 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 Relationship Specialty Start Date End Date Ricardo Abraham [address] [facility] [place] [address] PCP - General Cardiology 05/22/19 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 Relationship Specialty Start Date End Date Ricardo Abraham [address] [facility] [place] [address] PCP - General Cardiology 05/22/19 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 Relationship Specialty Start Date End Date Ricardo Abraham [address] [facility] [place] [address] PCP - General Cardiology 05/22/19 Team Status: Inactive Member Role Status Dates RICARDO ABRAHAM MD Primary Care Provider Active Dr. Anita Zhang MD Attending Provider, Referring P elizabeth Active 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 Relationship Specialty Start Date End Date Ricardo Abraham [address] [facility] [place] [address] PCP - General Cardiology 05/22/19 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 Relationship Specialty Start Date End Date Ricardo Abraham [address] [place] [address] PCP - General Cardiology 05/22/19 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 Relationship Specialty Start Date End Date Ricardo Abraham [address] [place] [id number] PCP - General Cardiology 05/22/19 Team Status: Inactive Member Role Status Dates RICARDO ABRAHAM MD Primary Care Provider Active Dr. Mario Yun , DPM Attending Provider, Referring Provider Active Dr. Luis A Adkins MD Other Provider Active 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 Relationship Specialty Start Date End Date Ricardo Abraham MD PCP - General Cardiology 05/22/19 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 Relationship Specialty Start Date End Date Ricardo Abraham MD PCP - General Cardiology 05/22/19 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 Relationship Specialty Start Date End Date Ricardo Abraham MD PCP - General Cardiology 05/22/19 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 Relationship Specialty Start Date End Date Ricardo Abraham MD PCP - General Cardiology 05/22/19 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 Relationship Specialty Start Date End Date Ricardo Abraham MD PCP - General Cardiology 05/22/19 Team Status: Active Member Role Status Dates RICARDO ABRAHAM MD Primary Care Provider Active Dr. Luis A Adkins MD Attending Provider Active Team Status: Inactive Member Role Status Dates RICARDO ABRAHAM MD Primary Care Provider Active Dr. Luis A Adkins MD Attending Provider, Referring P elizabeth Active Team Status: Active Member Role Status Dates RICARDO ABRAHAM MD Primary Care Provider Active Dr. Luis A Adkins MD Admit Provider, R eferring Provider, Other Provider Active Dr. Miguelito Mesa MD Attending Provider, Other Provider Active Team Status: Inactive Member Role Status Dates RICARDO ABRAHAM MD Primary Care Provider Active Dr. Luis A Adkins MD Admit Provider, A ttending Provider, Referring Provider Active Dr. Miguelito Mesa MD Other Provider Active Dr. Minoo Myers DO Other Provider Active 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 Relationship Specialty Start Date End Date Ricardo Abraham MD [address] [place] [address] PCP - General Cardiology 05/22/19 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 Relationship Specialty Start Date End Date Ricardo Abraham MD [address] [place] [address] PCP - General Cardiology 05/22/19 Team Status: Inactive Member Role Status Annabel ABARHAM MD Primary Care Provider Active Dr. Luis A Adkins MD Attending Provider Active 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 Relationship Specialty Start Date End Date Ricardo Abraham MD [address] [place] [address] PCP - General Cardiology 05/22/19 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 Relationship Specialty Start Date End Date Ricardo Abraham MD [address] [place] [address] PCP - General Cardiology 05/22/19 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 Relationship Specialty Start Date End Date Ricardo Abraham MD [address] [place] [address] PCP - General Cardiology 05/22/19 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 Relationship Specialty Start Date End Date Ricardo Abraham MD [address] [place] [address] PCP - General Cardiology 05/22/19 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 Relationship Specialty Start Date End Date Ricardo Abraham MD [address] [place] [address] PCP - General Cardiology 05/22/19 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 Relationship Specialty Start Date End Date Ricardo Abraham MD [address] [facility] [place] [address] PCP - General Cardiology 05/22/19 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 Relationship Specialty Start Date End Date Ricardo Abraham MD [address] [facility] [place] [address] PCP - General Cardiology 05/22/19 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 Relationship Specialty Start Date End Date Ricardo Abraham MD [address] [facility] [place] [address] PCP - General Cardiology 05/22/19 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 Relationship Specialty Start Date End Date Ricardo Abraham MD [address] [facility] [place] [address] PCP - General Cardiology 05/22/19 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 Relationship Specialty Start Date End Date Ricardo Abraham MD [address] [facility] [place] [address] PCP - General Cardiology 05/22/19 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 Relationship Specialty Start Date End Date Ricardo Abraham MD [address] [facility] [place] [address] PCP - General Cardiology 05/22/19 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 Relationship Specialty Start Date End Date Ricardo Abraham MD [address] [facility] [place] [address] PCP - General Cardiology 05/22/19 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 Relationship Specialty Start Date End Date Ricardo Abraham MD [address] [facility] [place] [address] PCP - General Cardiology 05/22/19 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 Relationship Specialty Start Date End Date Ricardo Abraham MD [address] [facility] [place] [address] PCP - General Cardiology 05/22/19 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 Relationship Specialty Start Date End Date Ricardo Abraham MD [address] [place] [address], [place] [address] PCP - General Cardiology 05/22/19 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 Relationship Specialty Start Date End Date Ricardo Abraham MD [address] [place] [address], [place] [address] PCP - General Cardiology 05/22/19 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 Relationship Specialty Start Date End Date Ricardo Abraham MD [address] [place] [address] PCP - General Cardiology 05/22/19 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 Relationship Specialty Start Date End Date Ricardo Abraham MD [address] [facility] [place] [address] PCP - General Cardiology 05/22/19 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 Relationship Specialty Start Date End Date Ricardo Abraham MD [address] [place] [address] PCP - General Cardiology 05/22/19 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 Relationship Specialty Start Date End Date Ricardo Abraham MD [address] [place] [address] PCP - General Cardiology 05/22/19 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 Relationship Specialty Start Date End Date Ricardo Abraham MD [address] [place] [address] PCP - General Cardiology 05/22/19 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 Relationship Specialty Start Date End Date Ricardo Abraham MD [address] [place] [address] PCP - General Cardiology 05/22/19 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 Relationship Specialty Start Date End Date Ricardo Abraham MD [address] [place] [address] PCP - General Cardiology 05/22/19 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 Relationship Specialty Start Date End Date Ricardo Abraham MD [address] [place] [address] PCP - General Cardiology 05/22/19 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 Relationship Specialty Start Date End Date iRcardo Abraham MD [address] [place] [address] PCP - General Cardiology 05/22/19 Goals (unrecognized section and content) Goals may be documented in a n alternate sectionGoals may be documented in an alternate sectionGoals may be documented in an alternate sectionGoals may be documented in an alternate sectionGoals may be documented in an alternate sectionGoals may be documented in an alternate sectionGoals may be documented in an alternate sectionGoals may be documented in an alternate sectionGoals may be documented in an alternate sectionGoals may be documented in an alternate sectionGoals may be documented in an alternate sectionGoals may be documented in an alternate sectionGoals may be documented in an alternate sectionGoals may be documented in an alternate section FOR RECORDS PERTAINING TO PATIENTS WHO ARE [...] ON THE PRIMARY CLINICAL RECORDS. [facility]. provides no warranty or guarantee of the accuracy or completeness of information in this document.
== END | disposition home or self-care (01) ==
PROVIDERS: PCP Internal Medicine Cardiovascular Disease; Referring Provider Physician Assistant Surgical; Visit Provider Physician Assistant Surgical
DX: S46.011A Strain of muscle(s) and tendon(s) of the rotator cuff of right shoulder, initial encounter (principal); M25.511 Pain in right shoulder
CPT/HCPCS: 73221

== ENCOUNTER → 2024-12-11 | Outpatient (CLI) | payer MEDICARE, MEDICAID, SELFPAY ==
--- NOTE | 2024-12-11 12:42 | CT_ITS ---
PROCEDURE: EXTREMITY UPPER WITHOUT CONTRA 12/11/2024 REASON FOR EXAM: SHOULDER PAIN, right. Four prior right shoulder surgeries. TECHNIQUE: EXTREMITY UPPER WITHOUT CONTRA Coronal and Sagittal reconstruction series were provided. One or more dose reduction techniques were used (e.g., Automated exposure control, adjustment of the mA and/or kV according to patient size, use of iterative reconstruction technique. RADIATION DOSE SUMMARY: CTDlvol: 49.65 mGy DLP: 1339.80 mGycm COMPARISON: Right shoulder MRI of 11/24/2024. FINDINGS: Widening of the right glenohumeral space is seen, most probably due to persistence of the previously described joint effusion. Stable degenerative changes of the right acromioclavicular and glenohumeral joints, including irregularity about the right humeral head greater tuberosity. Stable osseous alignment is seen. No fracture or dislocation is evident. CT/Extremity Upper without Contra IMPRESSION: 1. Stable degenerative changes. 2. No fracture or dislocation is seen. 3. Additional findings as noted. Reading Location: [place] [id number]
== END | disposition home or self-care (01) ==
PROVIDERS: PCP Internal Medicine Cardiovascular Disease; Referring Provider Student in an Organized Health Care Education/Training Program; Visit Provider Student in an Organized Health Care Education/Training Program
DX: M19.011 Primary osteoarthritis, right shoulder (principal)
CPT/HCPCS: 73200

== ENCOUNTER 2025-01-07 13:59 | Observation (INO) | payer MEDICARE, MEDICAID, SELFPAY ==
[2024-12-11 13:19] LABS: Hematocrit 40.7 % (40-54); Hemoglobin 14.0 g/dL (13.0-16.5); Immature Granulocytes Count 0.090 X10^3/uL (0.0-0.0); Mean Corp Hgb Conc 34.4 g/dL (32-36); Mean Corpuscular Volume 83.6 fL (80-94); Mean Platelet Vol. 10.7 fl (6.2-12.0); NRBC Flagged by Analyzer 0 % (0-5); Platelet Count 223 K/mm3 (150-450); RBC Distribution Width CV 13.3 % (11.6-14.6); RBC Distribution Width SD 41.1 fl (35.1-43.9); Red Blood Count 4.87 M/mm3 (4.6-6.2); White Blood Count 14.3 K/mm3 (4.4-11.0)
[2024-12-11 13:56] LABS: Magnesium 2.1 mg/dL (1.5-2.2)
[2024-12-11 17:16] LABS: Albumin, Serum 4.2 g/dL (3.4-4.8); Anion Gap 15 (5-15); BUN 13 mg/dL (4-19); BUN/Creat Ratio 13.9 RATIO (10-20); Calcium,Total 10.2 mg/dL (7.6-11.0); Carbon Dioxide 21.9 mmol/L (21.0-32.0); Chloride 102 mmol/L (98-108); Glucose 133 mg/dL (70-99); Potassium 4.1 mmol/L (3.3-5.1)
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
[2025-01-07] VITALS (13 sets, daily range): BP systolic 100–145; BP diastolic 61–90; PULSE 58–98; RESP 12–19; TEMP 36.1–36.8; O2SAT 90–99; BMI 36.3
[2025-01-07] MEDS: LR 1,000 ML - BOLUS PREOP 999 ML IV (10:31)
[2025-01-07] MEDS: Magnesium 1 GM over 15 mins IV (10:32)
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
[2025-01-07] MEDS: Midazolam 2 MG/2 ML Syringe IV (11:22)
[2025-01-07] MEDS: Cefazolin 1 GM/5 ML Vial 3 GM IV (11:35)
[2025-01-07] MEDS: Lidocaine 1% (5 ml sdv) 5 ML Vial 10 ML IV (11:40)
[2025-01-07] MEDS: TRANEXAMIC ACID 1,000 MG/10 ML ML 1000 MG IV (11:56)
[2025-01-07] MEDS: Vancomycin IV 1,000 MG/20 ML Vial 1000 MG OPERA.SITE (12:24)
[2025-01-07] MEDS: fentaNYL 100 MCG/2 ML Ampul IV (12:25)
--- NOTE | 2025-01-07 13:20 | RAD_ITS ---
PROCEDURE: SHOULDER MIN 2 VIEWS 01/07/2025 REASON FOR EXAM: POST OP TECHNIQUE: Procedure Code: RADSH Modality: DX Procedure: SHOULDER MIN 2 VIEWS Laterality: Right COMPARISON: October 18, 2023 FINDINGS: Bones: Interval placement of a reverse total shoulder arthroplasty. No hardware failure. No fracture. Joints: Anatomic alignment Soft tissues: Mild soft tissue gas is present that is not unexpected. RAD/Shoulder min 2 Views IMPRESSION: Expected postoperative appearance following shoulder arthroplasty. Reading Location: [id number]
--- NOTE | 2025-01-07 13:27 | OP.PCM_ITS ---
Operative Report (Standard) Operative Information Date of Procedure: 01/07/25 Pre-Operative Diagnosis: Right shoulder rotator cuff tear arthropathy Post-Operative Diagnosis: Right shoulder rotator cuff tear arthropathy Surgery/Procedure Performed: Right reverse total shoulder arthroplasty verification lead: Yes Shrimp Peeling Machine Operator: Dianne Walls Tasks completed by assistant statistician: Opening & closing, Implanting device, Hemostasis: Electrocautery and Retracting Additional housing assistant property manager?: No Type of Anesthesia: General/Regional RN Documented Start/Stop Times: Operation Date: 01/07/25 12:00 Case Time Into Pre-Op 01/07/25 09:41 Anesthesia Start 01/07/25 11:35 Into Room 01/07/25 11:35 Procedure Start 01/07/25 12:03 Procedure Start Time: 12:03 Procedure Stop Time: 13:34 Select all DRAINS/GRAFTS/IMPLANTS that apply: Implanted device Implanted device details: Tornier Aequalis PerFORM+ reversed baseplate 29 mm full wedge, standard glenosphere cobalt chrome 42 mm diameter, Tornier perform inlay stem size # 4, + 4 mm retentive size number 4 by 42 mm diameter polyethylene insert, short central post and peripheral screws x4. Estimated Blood Loss: 150 cc Specimen collected: No Description of surgery: Patient arrived to [facility] [place] morning of the procedure and was greeted by the same day surgery staff. Prior to his procedure, I greeted the patient in the preoperative holding area I identified the patient by name, record number, and date of . Informed consent was confirmed. The operative extremity was marked. All questions were answered to patient satisfaction. An interscalene block was administered prior to procedure by anesthesia staff for postoperative and intraoperative analgesia. At time of his procedure, patient was brought to the operative suite and positioned supine on a standard table with a beachchair attachment. General anesthesia was induced after all bony prominences were well-padded. E ndotracheal tube was placed. After adequate anesthesia and securing the tube, we prepared the patient to be positioned in the beachchair position. A well- padded mophead trimmer and wrapper was applied. The nonoperative extremity was placed in a well arm serrano. He was then brought into the beachchair position after we confirmed an appropriate blood pressure. We then spun the bed 45 degrees. The operative extremity was then prepared. In the butterfly wing of the bed was removed and a well-padded torso strap was applied to secure the patient to the bed. The operative extremity was now free. We then prepped and draped the right upper extremity in normal, sterile orthopedic fashion. We then performed a timeout with all parties in attendance in agreement with the side, site, and operation be performed. 3 g Ancef was administered prior to incision by anesthesia staff, as well as 1 g TXA IV. No concerns were voiced and we elected to proceed. I first marked a standard deltopectoral incision just lateral to the coracoid process in line with the long axis of the humerus. Skin was sharply incised with 10 blade scalpel. I then dissected bluntly through the subcutaneous layers and found the fat stripe between the deltoid and pectoralis major. The cephalic vein was then identified and protected. It was retracted laterally with the deltoid. I then bluntly dissected underneath the deltoid with a Santiago elevator. Ly retractor was placed. The upper 1 cm of the pectoralis major was released. Biceps was completely ruptured. A remnant was identified at the supraglenoid tubercle. Subscapularis and supraspinatus were completely ruptured. Anterior capsule was partially intact. Anterior capsule was then tagged and released peeling up from the upper humerus. Humeral head was then dislocated anteriorly. Appropriate access to the humeral head was confirmed. I then subluxed the humeral head posteriorly with a Fukuda retractor placed around the posterior lip of the glenoid. Inferior capsule was tension. I was able to palpate the axillary nerve. Inferior capsule was then released to the 4 o'clock position of the glenoid face. I then remove the Fukuda retractor and redislocated the shoulder anteriorly. I then made a anatomic neck cut of the cartilaginous surface of the humeral head. Sizing plate for a size # 4 stem was utilized to determine appropriate reaming size. A central pin was placed engaging the lateral cortex of the humerus. A size #4 reamer was used to ream the humeral metaphysis and prepare for the inlay stem. A canal finding reamer was utilized prior to sequential broaching to a size # 4 short stem with excellent rotational and axial purchase in the humerus. I remove the broach handle left the size #[address] I then subluxed the humerus posterior to the glenoid. I then placed retractors around the posterior and anterior glenoid to expose the glenoid. Glenoid labrum was removed with Bovie cautery protecting the axillary nerve. We then used the wedged guide from [employer] to position our centering pin, exiting approximately 25 mm from the joint surface along the anterior scapula. Guide was removed and pin was analyzed and compared to preoperative planning. It appeared to be in appropriate position. The augmented wedge reamer was then used to prepare the glenoid. We then removed the reamer and used the cannulated drill for the short central post. Post and baseplate was assembled on the back table. We then inserted the baseplate and central post the assembled baseplate to an appropriate depth with good press-fit purchase. A [place] was used to confirm depth. Cortical screws then were placed in the peripheral holes with good purchase. The baseplate had excellent purchase and the entire scapula would rotate with rotation of the baseplate. We then impacted the 42 mm glenosphere with a standard eccentricity and tightened the locking screw mechanism. We then removed retractors and turned our attention back to the humerus. I placed a +6 mm retentive polyethylene insert. I then reduced the shoulder. There was excellent range of motion and stability in all planes of motion. We selected this as our final size. We removed trials from the humerus after final dislocation. I copiously irrigated the canal. Broach was placed on hand and then impacted to an appropriate depth. Final +6 mm retentive polyethylene insert was placed. Final reduction was then performed. We then copiously irrigated the wound with sterile Betadine and normal saline solution. 1 g vancomycin powder was placed within the wound prior to closure. We reapproximated the interval with 0 Vicryl suture. Subcutaneous layers were reapproximated with 2 -0 Vicryl suture. Skin was finally running V-Loc 3-0 Monocryl suture and Dermabond. A sterile silver Mepilex dressing was applied. Patient was then placed in an ultra sling. Patient tolerated procedure well without complication. He was positioned back in the supine position extubated in the operative suite. He was transferred to the [facility] and subsequently to PACU in stable condition. Need for skilled housing assistant property manager: Dianne Walls PA-C was critical to the outcome of the case. During the course of the procedure the physician housing assistant property manager played a vital role. Her intimate knowledge of my steps in the procedure aided in safe and expedient completion of the procedure. The PA played a vital role in positioning particularly in obtaining the appropriate positioning. The PA was also vital in the retraction of soft tissues during the exposure and protecting vital structures. The PA was also vital and protecting soft tissues during times of bony cuts. She also played a vital role in closure with my direct supervision. The PA was also important during reduction and dislocation of the joint and trials intraoperatively. Intraoperative medications: 2 g Ancef IV, 1 g TXA IV x2 Post Operative Plan: Patient will be placed observation overnight due to medical comorbidities. Patient has chronic opioid tolerance. Plan of care was discussed with his pain management provider Dr. Pascual. Plan will be to continue his Percocet 10 mg every 6 hours and add MS Contin. Weightbearing: Nonweightbearing right upper extremity, okay for pendulums. Range of motion of wrist elbow and hand as tolerated. Antibiotics:3 g Ancef IV prior to incision, 24 hours IV antibiotics postoperatively DVT Prophylaxis: Aspirin enteric-coated 81 mg twice daily starting tomorrow Hess: None Dressing: Maintain silver dressing x5 days. Okay to shower dressing on started on day 4 X-Rays: 2 weeks postop in the office Pain Medication: See above Follow-up: 2 weeks post-operatively with me in the office Surgical Findings: Massive right rotator cuff tear with cuff tear arthropathy changes. Torn biceps tendon. Stable right shoulder following reduction. Complications Complications: No Admit VTE Documentation VTE Present on Admission: No VTE Mechan Device Prophylaxis: SCD's VTE Pharm Prophylaxis ordered?: Yes
[2025-01-07] MEDS: LR 1,000 ML - BOLUS POSTOP 999 ML IV (13:50)
--- NOTE | 2025-01-07 13:53 | PCM.POST.ANE ---
Anesthesia: Postop Eval I Current Vital Signs Temperature: 97 F Pulse Rate: 62 Blood Pressure: 106/64 Respiratory Rate: 16 Pulse Ox: 92 Assessment Airway patent: Yes Spontaneous unlabored respirations: Yes nausea: No Vomiting: No Anesthesia Complication: No Fluid Hydration Crystalloid volume administer (ml): 1,500 Total IV fluid infused: 1,500 Progress Note Anesthesia document: Postop Eval 1 completed: Yes
--- NOTE | 2025-01-07 15:21 | POSTOPAN2_ITS ---
Anesthesia Postop Eval I Sum Postop Eval Completion status Anesthesia document: Postop Eval 1 completed: Yes Anesthesia Postop Eval I Summary Anesthesia Postop Eval I Summary: Anesthesia Postop Eval I: Assessment Summary Airway patent Yes 01/07/25 13:53 MED CARE [email or web address] Spontaneous unlabored Yes 01/07/25 13:53 MED CARE MANAGER.[email or web address] respirations Mental status nausea No 01/07/25 13:53 MED CARE MANAGER.[email or web address] Vomiting No 01/07/25 13:53 MED CARE MANAGER.TNES Anesthesia Postop Eval I: Fluid Summary Crystalloid volume administer 1,500 01/07/25 13:53 MED CARE MANAGER.TNES (ml) Colloids volume administered ( ml) Blood Product volume administered (ml) Total IV fluid infused 1,500 01/07/25 13:53 MED CARE MANAGER.TNES Anesthesia Postop Eval I: Summary Notes Anesthesia Complication No 01/07/25 13:53 MED CARE MANAGER.[email or web address] Anesthesia Complication Comment: Post-operative progress note Anesthesia: Postop Eval II Evaluation Mental status: Awake and Calm Pain Level: 2 nausea: No Vomiting: No Complications Anesthesia Complication: No
--- NOTE | 2025-01-07 15:21 | PCM.POSTANE2 ---
Anesthesia Postop Eval I Sum Postop Eval Completion status Anesthesia document: Postop Eval 1 completed: Yes Anesthesia Postop Eval I Summary Anesthesia Postop Eval I Summary: Anesthesia Postop Eval I: Assessment Summary Airway patent Yes 01/07/25 13:53 CUSTOM GARMENT DESIGNER.TNES Spontaneous unlabored Yes 01/07/25 13:53 CUSTOM GARMENT DESIGNER.TNES respirations Mental status nausea No 01/07/25 13:53 CUSTOM GARMENT DESIGNER.TNES Vomiting No 01/07/25 13:53 CUSTOM GARMENT DESIGNER.TNES Anesthesia Postop Eval I: Fluid Summary Crystalloid volume administer 1,500 01/07/25 13:53 CUSTOM GARMENT DESIGNER.TNES (ml) Colloids volume administered ( ml) Blood Product volume administered (ml) Total IV fluid infused 1,500 01/07/25 13:53 CUSTOM GARMENT DESIGNER.TNES Anesthesia Postop Eval I: Summary Notes Anesthesia Complication No 01/07/25 13:53 CUSTOM GARMENT DESIGNER.TNES Anesthesia Complication Comment: Post-operative progress note Anesthesia: Postop Eval II Evaluation Mental status: Awake and Calm Pain Level: 2 nausea: No Vomiting: No Complications Anesthesia Complication: No
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
[2025-01-07] MEDS: Cefazolin 1 GM/50 ML BAG IV (19:59)
[2025-01-07] MEDS: 0.9% Normal Saline (250mL Bag) 250 ML 15 ML IV (19:59)
[2025-01-07] MEDS: 0.9% Saline Lock 10 ML Syringe IV (20:03)
[2025-01-07] MEDS: Senna/Docusate Sodium 1 Tablet 2 TABLET PO (21:31)
[2025-01-07] MEDS: morphine SR 15 MG Tablet PO (21:33)
[2025-01-08 02:30] VITALS: BP 129/85; PULSE 67; RESP 18; TEMP 36.8; O2SAT 95
[2025-01-08] MEDS: 0.9% Saline Lock 10 ML Syringe IV (04:16)
[2025-01-08] MEDS: Cefazolin 1 GM/50 ML BAG IV (04:16)
[2025-01-08 05:55] LABS: Hematocrit 37.7 % (40-54); Hemoglobin 13.3 g/dL (13.0-16.5); Mean Corp Hgb Conc 35.3 g/dL (32-36); Mean Corpuscular Volume 82.0 fL (80-94); Mean Platelet Vol. 10.4 fl (6.2-12.0); Platelet Count 180 K/mm3 (150-450); RBC Distribution Width CV 13.7 % (11.6-14.6); RBC Distribution Width SD 40.5 fl (35.1-43.9); Red Blood Count 4.60 M/mm3 (4.6-6.2); White Blood Count 16.5 K/mm3 (4.4-11.0)
[2025-01-08 06:15] LABS: Anion Gap 12 (5-15); BUN 16 mg/dL (4-19); BUN/Creat Ratio 16.5 RATIO (10-20); Calcium,Total 9.3 mg/dL (7.6-11.0); Carbon Dioxide 21.5 mmol/L (21.0-32.0); Chloride 106 mmol/L (98-108); Estimated Creatinine Clearance 105.73 ml/min (50-250); Glucose 156 mg/dL (70-99); Potassium 4.2 mmol/L (3.3-5.1)
[2025-01-08 06:30] VITALS: BP 143/88; PULSE 60; RESP 18; TEMP 36.4; O2SAT 96
--- NOTE | 2025-01-08 07:11 | PCM.PN.HOSP ---
Subjective Subjective Patient is a 64-year-old gentleman who underwent reverse total shoulder arthroplasty on 01/07/2025 on account of right shoulder rotator cuff tear arthropathy. The hospitalist service was consulted to assist with management of patient medical comorbidities Objective Data Objective Data Vital Signs: Vital Signs Temp Pulse Resp BP Pulse Ox O2 Del Method O2 Flow Rate 97.5 F L 60 18 143/88 H 96 Room Air 4 01/08/25 06:30 01/08/25 06:30 01/08/25 06:30 01/08/25 06:30 01/08/25 06:30 01/08/25 06:30 01/07/25 14:15 Oxygen Flow Rate (L/min) 4 Oxygen Delivery Method Room Air Weight: 121.5 kg Body Mass Index (BMI) 36.3 Intake & Output: Intake and Output for Last 24 Hours 01/06/25 01/07/25 01/08/25 23:59 23:59 23:59 Intake Total 215 / 2502 943.5 / 943.5 Output Total 150 / 150 Balance 2001 943.5 / 943.5 Lab / Micro Data 01/08/25 05:45 01/08/25 05:45 Labs: Laboratory Results - last 24 hr 01/07/25 22:28: POC Glucose 337 H 01/08/25 05:45: WBC 16.5 H, RBC 4.60, Hgb 13.3, Hct 37.7 L, MCV 82.0, MCH 28.9, MCHC 35.3, RDW Std Deviation 40.5, RDW Coeff of Mimi 13.7, Plt Count 180, MPV 10.4, Sodium 140, Potassium 4.2, Chloride 106, Carbon Dioxide 21.5, Anion Gap 12, BUN 16, Creatinine 0.95, Estim Creat Clear Calc 105.73, Est GFR (MDRD) Non-Af 89, BUN/Creatinine Ratio 16.5, Glucose 156 H, Calcium 9.3 01/08/25 06:21: POC Glucose 142 H Micro: Microbiology 12/11/24 12:33 Swab (Method) Nasal Screen MRSA/MSSA - Final Radiography Diagnostic Testing: Radiology Impression Shoulder X-Ray 01/07/25 13:20 IMPRESSION: Expected postoperative appearance following shoulder arthroplasty. Reading Location: [facility] Physical Exam Narrative GENERAL: cooperative HEENT: Atraumatic; normocephalic EYES; Anicteric, Normal Conjunctiva NECK; supple, normal thyroid, RESPIRATORY: Diminished to auscultation CARDIOVASCULAR: Regular S1 S2, GI: soft, normoactive bowel sounds, : No Renal angle tenderness; EXTREMITIES: No edema, no clubbing, MUSCULOSKELETAL: Right upper extremity immobilized in a sling NEURO: Awake; no lateralizing signs. 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 The hospitalist service was consulted to assist with management of patient medical comorbidities 1. Status post reverse total shoulder arthroplasty on 01/07/[address] Garcia on account of right shoulder rotator cuff tear arthropathy. Patient postoperative orders regarding pain management PT OT defer to primary service 2. Essential hypertension -I did continue patient home meds patient blood pressure appears well-controlled this a.m. 3. Diabetes mellitus type II -patient's oral hypoglycemics held. Placed on long acting insulin, Accu-Cheks a.c. and at bedtime and covered with sliding scale insulin 4. Chronic pain -Follows with pain management. Plans for patient to resume care following discharge 5. Depression with anxiety ? Patient is on sertraline 6. Chronic diabetic foot ulcer - Patient has a chronic diabetic foot ulcer, Wound care consult has been placed 7. DVT prophylaxis ? Defer to primary service Time spent in the patient's overall evaluation,decision-making process, review of diagnostic data, adjustment of management, discussion with other providers, nursing nursing and ancillary staff involved in patient's care documentation, 36 Minutes Charges/Coding Visit Charges Inpatient E&M: 81635 Subs Hosp L2
[2025-01-08] MEDS: Aspirin E.C. 81 MG Tablet PO (07:59)
[2025-01-08] MEDS: Senna/Docusate Sodium 1 Tablet 2 TABLET PO (07:59)
[2025-01-08] MEDS: Insulin Glargine-YFGN 100 UNIT/ML Pen 15 UNIT SC (08:00)
--- NOTE | 2025-01-08 08:12 | WOUNDNOTE ---
wound photo: left heel
[2025-01-08 08:30] VITALS: BP 138/82; PULSE 61; RESP 16; TEMP 36.6; O2SAT 100
[2025-01-08] MEDS: morphine SR 15 MG Tablet PO (09:48)
--- NOTE | 2025-01-08 11:32 | CASEMGMT ---
Addendum entered by Anne Montano 01/08/25 13:02: Pt nurse spoke with SAMIRA ROBERTSON stating pt does not have transportation home. SAMIRA ROBERTSON into pt room to make aware that HHC was set up and pt was accepted. Pt states he does have transportation set up for dc home. Pt states he doesn't want to pay for another night in the hospital. Pt denies any further homegoing needs at this time. Updated pt nurse. Addendum entered by Anne Montano 01/08/25 12:56: Pt accepted by [facility], plan for SOC on Saturday. Original Note: SAMIRA ROBERTSON into pt room, pt lying in bed in no distress. Pt lives alone and is typically indep. Pt has a heal wound that he cares for. Pt has a sig other who is coming tomorrow at 3pm to stay with him for a day or two to assist him since recent surgery. Pt has a cane, walker, grab bars in the bathroom and pull alarms in the bathroom that will activate and neighbors come to assist. Pt is interested in HHC,, has amputation of toe and wound. Pt sig other can also perform wound care. Discussed HHC and requirements. Patient was provided a list of C providers including quality and resource use data and consistent with the patient?s preferred geographic region, medical needs, and insurance network were provided from the [employer] Guide. Pt chose [facility]. MEREDITH Howard at [facility], referral made, will await decision to accept. Pt states he has information given by AMELIA yesterday and plans to call for meal assistance. Pt denies any further needs at this time.
--- NOTE | 2025-01-08 11:53 | DS.PCM_ITS ---
Providers Date of Admission: 01/07/25 Date of Discharge: 01/08/25 Primary Care Physician: RICARDO DALLAS MD Consultations 01/07/25 13:26 Consult: Hospitalist Routine Consulting Provider: Ann Lui Reason for Consult: medical management s/p R total shoulder EMERGENT Consult: No MD Notified: Yes Date Notified: 01/07/25 Time Notified: 15:17 Method of Notification: Text 01/07/25 18:25 Consult: Onc/Wound/microbiology technician Routine Comment: Reason for Consult:: Left-Heel- Diabetic foot ulcer Reason For Visit: RIGHT REVERSE TOTAL SHOULDER ARTHROPLASTY, ERAS Diagnosis Discharge Diagnosis (1) Type 2 diabetes mellitus with diabetic polyneuropathy: Status: Acute Code(s): E11.42 - Type 2 diabetes mellitus with diabetic polyneuropathy Qualifiers: Diabetes mellitus fpc insulin use: with fpc use Qualified Code(s): E11.42 - Type 2 diabetes mellitus with diabetic polyneuropathy; 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 Garcia 1. Will continue PT today. Sling at all times to right upper extremity. Nonweightbearing to right upper extremity 2. plan for discharge this afternoon following PT 3. Patient will follow up for post op appointment as previously scheduled 4. Patient has outpatient PT appointment as previously scheduled in 2 weeks 5. WBC 16.5 acute reactive leukocytosis: secondary to pre operative decadron. no acute systemic signs of infection. will monitor, and likely self resolve. 6. H/H 13.3/37.7: post operavtive anemia secondary to acute blood loss intraoperatively. Patient is asymptomatic at this time. No intraoperative complications. will continue to monitor. no acute interventions. 7. DVT prophylaxis : Aspirin 81 mg twice daily x 2 weeks 8. Pain control: patient instructed to take tylenol 500mg 2 tablets TID. resume his percocet as previously prescribed at home. per Dr. Pascual recommendations will add 15mg MS contin TID for pain control 9. Patient also given a prescription of meloxicam, senna, doxycycline 100 mg twice daily x 1 week. 10. ok to remove post op dressing. post op day 5 Medications at Discharge Home Medications amlodipine 10 mg tablet 10 mg PO DAILY 09/23/15 hydrochlorothiazide 25 mg tablet 25 mg PO DAILY 09/23/15 pregabalin 150 mg capsule (Lyrica) 150 mg PO .qd 09/23/15 lisinopril 20 mg tablet 20 mg PO DAILY 10/07/20 insulin aspart (niacinamide)(U-100) 100 unit/mL(3 mL) subcutaneous pen (Fiasp FlexTouch U-100 Insulin) 10 unit subcut TID PRN for blood sugar 05/28/22 insulin glargine U-300 conc 300 unit/mL (1.5 mL) subcutaneous pen (Toujeo SoloStar U-300 Insulin) 20 unit subcut DAILY 12/14/22 sennosides 8.6 mg-docusate sodium 50 mg tablet (Stool Softener-Stimulant Laxative) 2 tab PO BID PRN constipation 04/13/24 tirzepatide 10 mg/0.5 mL subcutaneous pen injector (Mounjaro) 10 mg subcut STAPLETON 04/13/24 ondansetron 4 mg disintegrating tablet 4 mg PO Q8H PRN nausea and vomiting #14 tabs 04/17/24 oxycodone-acetaminophen 10 mg-325 mg tablet (Percocet) 1 tab PO Q6H PRN pain 7 days #28 tabs 04/24/24 sertraline 50 mg tablet 50 mg PO DAILY 12/10/24 tizanidine 4 mg tablet 2 - 4 mg PO TID PRN PRN muscle spasm 12/10/24 acetaminophen 500 mg tablet 1,000 mg (2 x 500 mg) PO Q8 #180 tabs 01/08/25 aspirin 81 mg tablet,delayed release 81 mg PO BID #30 tabs 01/08/25 doxycycline hyclate 100 mg capsule 100 mg PO BID 7 days #14 caps 01/08/25 meloxicam 7.5 mg tablet 7.5 mg PO BID #60 tabs 01/08/25 Hospital Course Summary of Care Provided Hospital Course: Patient is s/p right reverse total shoulder arthroplasty with Dr. Garcia 01/07/2025. Patient resting comfortably in bed. Rates pain 5 /10. States taking Tylenol and oxycodone as needed and ice help to relieve pain. Patient has been up with therapy. Sling in place at all times. Afebrile, no chest pain, shortness of breath, negative calf pain/ erythema, and no other signs of DVT. Physical Exam Narrative Patient resting comfortably in bed side chair Sling in place to right upper extremity No signs of acute distress Satting well on room air Limb is warm to touch, Sensation intact throughout entire right upper extremity extremity, Radial pulses bounding Dressing clear dry intact Calf nontender to palpation, no erythema, no edema. Negative Homans Weight / BMI Weight Weight: 121.5 kg Body Mass Index (BMI) 36.3 ABG / Lab / Microbiology Data 01/08/25 05:45 01/08/25 05:45 Laboratory: Laboratory Results - last 24 hr 01/07/25 22:28: POC Glucose 337 H 01/08/25 05:45: WBC 16.5 H, RBC 4.60, Hgb 13.3, Hct 37.7 L, MCV 82.0, MCH 28.9, MCHC 35.3, RDW Std Deviation 40.5, RDW Coeff of Mimi 13.7, Plt Count 180, MPV 10.4, Sodium 140, Potassium 4.2, Chloride 106, Carbon Dioxide 21.5, Anion Gap 12, BUN 16, Creatinine 0.95, Estim Creat Clear Calc 105.73, Est GFR (MDRD) Non- Af 89, BUN/Creatinine Ratio 16.5, Glucose 156 H, Calcium 9.3 01/08/25 06:21: POC Glucose 142 H 01/08/25 11:15: POC Glucose 186 H Microbiology: Microbiology 12/11/24 12:33 Swab (Method) Nasal Screen MRSA/MSSA - Final Radiography Diagnostic Testing: Radiology Impression Shoulder X-Ray 01/07/25 13:20 IMPRESSION: Expected postoperative appearance following shoulder arthroplasty. Reading Location: [id number]/C Instructions Weight Bearing Status: No weight bearing (Right upper extremity) Additional Activity Instructions: Sling at all times right upper extremity nonweightbearing. Call your doctor if your incision/area has: Continuous Slow Oozing, Sudden Increased Bleeding, Increased Pain/ Swelling, Increased Redness, Foul Smelling Discharge and Swelling at the incision site Call your doctor if you observe: Fever of 101 or Higher, Inability to urinate, Inability to have a bowel movement, Shortness of breath, Dizziness, Chest pain, Calf discomfort and Uncontrolled pain Remove Dressing in: 5 days Cleanse incision/area with: Soap & Water and Keep Dressing Clean & Dry DC O2, CPAP, BIPAP Needs Home O2 Discharge instructions: No DC home with Oxygen: No When: With [facility] as previously scheduled Meaningful Use Info Meaningful Use Meaningful Use Diagnoses (Choose all that apply): None applicable Discharge Plan Admission Admit Date/Time: 01/07/25 13:59 Attending Provider: Parker Momin Primary Care Provider: RICARDO DALLAS Consulting Providers: Kevin George; Ann Lui; Miguelito Garcia Discharge Orders/Prescriptions Prescriptions: New acetaminophen 500 mg Tablet 1,000 mg PO Q8 Qty: 180 0RF aspirin 81 mg Tablet,Delayed Release (Dr/Ec) 81 mg PO BID Qty: 30 0RF meloxicam 7.5 mg Tablet 7.5 mg PO BID Qty: 60 0RF doxycycline hyclate 100 mg capsule 100 mg PO BID 7 Days Qty: 14 0RF Continued amlodipine 10 MG tablet 10 mg PO DAILY hydrochlorothiazide 25 MG tablet 25 mg PO DAILY pregabalin [Lyrica] 150 MG capsule 150 mg PO .qd lisinopril 20 mg Tablet 20 mg PO DAILY Fiasp FlexTouch U-100 Insulin 100 unit/mL (3 mL) Insulin Pen 10 unit SUBCUT TID PRN (Reason: for blood sugar) Rx Instructions: pt takes as needed insulin glargine U-300 conc [Toujeo SoloStar U-300 Insulin] 300 unit/mL (1.5 mL) insulin pen 20 unit subcut DAILY Mounjaro 10 mg/0.5 mL pen injector 10 mg subcut STAPLETON sennosides-docusate sodium [Stool Softener-Stimulant Laxat] 8.6-50 mg Tablet 2 tab PO BID PRN (Reason: constipation) Rx Instructions: Take until first bowel movement, then as needed ondansetron 4 mg tablet,disintegrating 4 mg PO Q8H PRN (Reason: nausea and vomiting) Qty: 14 0RF oxycodone-acetaminophen [Percocet] 10-325 mg tablet 1 tab PO Q6H PRN (Reason: pain) 7 Days Qty: 28 0RF tizanidine 4 mg tablet 2 - 4 mg PO TID PRN PRN (Reason: muscle spasm) sertraline 50 mg tablet 50 mg PO DAILY Other Ambulatory Orders: 12 Lead EKG (Routine) Timeframe: [id number] Facility: [facility] - Location: Cardiovascular Services Ordered By: Dr. Miguelito Garcia Referrals / Follow Up: RICARDO DALLAS MD [Primary Care Provider] - Disposition Disposition (needs filled in before D/C Order can be placed): Home Health Service
== END 2025-01-08 14:10 | disposition home health service (06) ==
LOC: SDC 14:16 → MS3 14:16
PROVIDERS: Anesthesiology; Admitting Provider Student in an Organized Health Care Education/Training Program; PCP Internal Medicine Cardiovascular Disease; Referring Provider Student in an Organized Health Care Education/Training Program; Visit Provider Internal Medicine
PROC: (CPT 23472; principal; 2025-01-07 11:30)
DX: S46.011A Strain of muscle(s) and tendon(s) of the rotator cuff of right shoulder, initial encounter (principal); E11.621 Type 2 diabetes mellitus with foot ulcer; L97.529 Non-pressure chronic ulcer of other part of left foot with unspecified severity; M06.9 Rheumatoid arthritis, unspecified; J44.9 Chronic obstructive pulmonary disease, unspecified; E11.42 Type 2 diabetes mellitus with diabetic polyneuropathy; Z79.4 Long term (current) use of insulin; E11.51 Type 2 diabetes mellitus with diabetic peripheral angiopathy without gangrene; E11.319 Type 2 diabetes mellitus with unspecified diabetic retinopathy without macular edema; Z79.899 Other long term (current) drug therapy; I10 Essential (primary) hypertension; G89.4 Chronic pain syndrome; F17.290 Nicotine dependence, other tobacco product, uncomplicated; Z79.891 Long term (current) use of opiate analgesic; W19.XXXA Unspecified fall, initial encounter; Y92.89 Other specified places as the place of occurrence of the external cause; G47.30 Sleep apnea, unspecified; M19.111 Post-traumatic osteoarthritis, right shoulder; F41.8 Other specified anxiety disorders
CPT/HCPCS: 23472; 01638; 36415; 73030; 80048; 82040; 82962; 83036; 83735; 85025; 85027; 87081; 94668; 96365; 96366; 97166; 99221; C1776; A4216; G0378; J2405; J3475

== ENCOUNTER 2025-03-10 13:02 | Outpatient (RCR) | payer MEDICARE, MEDICAID, SELFPAY ==
[2025-03-10 13:05] VITALS: BP 161/103; PULSE 68; RESP 18; TEMP 36.1; BMI 35.6
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
--- NOTE | 2025-03-11 12:15 | WC ---
PHOTO-LEFT HEEL 03/10/25
== END 2025-04-04 23:59 | disposition home or self-care (01) ==
LOC: WC 13:02
PROVIDERS: PCP Internal Medicine Cardiovascular Disease; Referring Provider Internal Medicine Cardiovascular Disease; Visit Provider Podiatrist Foot & Ankle Surgery
DX: E11.621 Type 2 diabetes mellitus with foot ulcer (principal); L97.423 Non-pressure chronic ulcer of left heel and midfoot with necrosis of muscle; E11.51 Type 2 diabetes mellitus with diabetic peripheral angiopathy without gangrene; E11.42 Type 2 diabetes mellitus with diabetic polyneuropathy; Z79.4 Long term (current) use of insulin; F17.200 Nicotine dependence, unspecified, uncomplicated; G89.4 Chronic pain syndrome; I10 Essential (primary) hypertension
CPT/HCPCS: 11043; 87070; 87075; 87077; 87186; 87205; 99213; G0463

== ENCOUNTER 2025-04-25 22:20 | Inpatient (IN) | payer MEDICARE, MEDICAID, SELFPAY ==
[2025-04-25 22:22] VITALS: BP 125/108; PULSE 98; RESP 16; TEMP 37; O2SAT 94; BMI 35.6
[2025-04-25 22:38] VITALS: O2SAT 94
--- NOTE | 2025-04-25 22:41 | NURSING ---
Unable to verify meds with pt due to pt confusion.
--- NOTE | 2025-04-25 22:44 | RAD_ITS ---
PROCEDURE: FOOT MIN 3 VIEWS 04/25/2025 REASON FOR EXAM: HEEL WOUND, PT CONFUSED TECHNIQUE: Procedure Code: RADFO Modality: DX Procedure: FOOT MIN 3 VIEWS COMPARISON: None. 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 Soft tissue ulcer underlying the posterior/plantar aspect of the calcaneum. No radiographic evidence of osteomyelitis. Calcaneal spur formation. Enthesophyte formation at the calcaneal insertion of Achilles tendon. Calcified atheromatous plaques are noted. Mild osteopenia of the visualized bones. Degenerative joint disease. No fracture or dislocation is seen. No lytic or blastic bone lesion is noted. 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 Soft tissue ulcer underlying the posterior/plantar aspect of the calcaneum. No radiographic evidence of osteomyelitis. Calcaneal spur formation. Enthesophyte formation at the calcaneal insertion of Achilles tendon. Calcified atheromatous plaques are noted. [facility]
--- NOTE | 2025-04-25 22:44 | RAD_ITS ---
PROCEDURE: CHEST 1 VIEW (PORTABLE) 04/25/2025 REASON FOR EXAM: COUGH, WEAKNESS TECHNIQUE: Frontal view of the chest. COMPARISON: None. FINDINGS: Mild bilateral basilar atelectatic pulmonary changes. There is no demonstrated pleural abnormality. Enlarged cardiac silhouette. Normal mediastinum and dory. Normal visualized pulmonary arteries. Atheromatous plaques of the visualized aortic arch and descending thoracic aorta. Diffuse spondylosis of the visualized thoracic spine. Normal visualized ribs, clavicles. Degenerative joint disease. There is no demonstrated abnormality of the visualized soft tissue structures of the upper abdomen. RAD/Chest 1 View (Portable) IMPRESSION: Mild bilateral basilar atelectatic pulmonary changes. Reading Location: [facility]
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
[2025-04-25] MEDS: 0.9% Normal Saline (1000mL) 1,000 ML 1000 ML IV (22:53)
--- OUTSIDE RECORDS SUMMARY | 2025-04-25 22:55 | XMS RPT_ITS | CCD ---
Author Organization [facility] Care Team Providers Care Informaticist Name Role Phone Leticia Dash Unavailable Unavailable [...] Ricardo Abraham MD Primary Care Provider Ricardo Abrahammond Primary Care Provider Black, Ricardo [place] Primary Care Provider [phone] Black, Ricardo [place] Primary Care Provider [phone] Jarad LEYVA, [facility] Primary Care Provider Unavailankush ABRAHAM MD [place] Primary Care Provider [phone] Luis A Adkins Admit Provider Dr. Luis A Adkins Referring Provider Dr. Luis A Adkins Other Provider Dr. Miguelito Mesa Attending Provider Dr. Miguelito Mesa Other Provider Jarad LEYVA, [facility] Primary Care Provider Jarad LEYVA, [facility] Primary Care Provider REJI MANSFIELD Attending Unavailable REJI MANSFIELD Admitting Unavailable BLACK, RICARDO R Primary Care Unavailable BLACK, BR[place]KS[place] R Primary Care Unavailable SHARLENE ESCOBAR Referring Unavailable JARAD LEYVA, [place] Primary Care Provider [phone] Edu Haynes PA-C Attending Provider Elisabeth NOBLES Ray Referring Provider Dr. Miguelito Garcia DO Attending Provider Dr. Miguelito Garcia DO Referring Provider Dr. Miguelito Garcia DO Admit Provider Dr. Miguelito Garcia DO Other Provider Ariel LEYVA, Dr. Brown Other Provider Hu LEYVA, Dr. Juarez Other Provider Liliane LEYVA, Dr. Canales Attending Provider Unavailankush Mansfield MD, Dr. Juarez Attending Provider Liliane LEYVA, Dr. Canales Other Provider Unavailable SHARLENE ESCOBAR Attending Unavailable BLACK, RICARDO R Primary Care Unavailable SHARLENE ESCOBAR Attending Unavailable ERIC ARBAHAMNN R Primary Care Unavailable BLACK, RICARDO Referring Unavailable BLACK, RICARDO Primary Care Unavailable Danilo Rodriguez Attending Unavailable BLACK, RICARDO Primary Care Unavailable Mario Yun Attending Unavailable Mario Yun Referring Unavailable Kulwantttle, Miguelito Admitting Unavailable BLACK, RICARDO Primary Care Unavailable Meredith Momin Attending Unavailable DeHorta, Kevin Consulting Unavailable Spittle, Miguelito Referring Unavailable Mansfield, Ann Consulting Unavailable Spittle, Miguelito Consulting Unavailable Kittoe, Meredith Consulting Unavailable Mansfield, Ann Attending Unavailable Spittle, Miguelito Referring Unavailable Spittle, Miguelito Admitting Unavailable KittoeMeredith Attending Unavailable BLACK, RICARDO Primary Care Unavailable DeHorta, Kevin Consulting Unavailable Mansfield, Ann Consulting Unavailable Spittle, Miguelito Consulting Unavailable BLACK, RICARDO Primary Care Unavailable Eshenaur PA, Ray Attending Unavailable Eshenaur PA, Ray Referring Unavailable BLACK, RICARDO Primary Care Unavailable Spittle, Miguelito Attending Unavailable Spittle, Miguelito Referring Unavailable BLACK, [place] Primary Care Unavailable Mario Yun Attending Unavailable Allergies Allergy Classification Reported Allergen(s) Allergy Type Date of Onset Reaction(s) Facility metFORMIN (1 source) metFORMIN Drug Allergy 4 Swelling [facility] Opioid Agonists (1 source) Codeine Drug Allergy 8 Rash [facility] (20 sources) Codeine; Translations: [CODEINE] Drug Allergy 9 Rash [facility] Repository (20 sources) metFORMIN; Translations: [METFORMIN] Drug Allergy 4 Swelling, Other: See Comments [facility] Rep[facility] (1 source) OTHER (REVIEW COMMENTS!); Translations: [OTHER (REVIEW COMMENTS!)] Propensity to adverse reactions to drug (disorder) 1 [facility] (20 sources) Seasonal allergy; Translations: [SEASONAL ALLERGIES] Propensity to adverse reactions 1 Other: See Comments [facility] Medications Current Medications Medication Drug Class(es) Dates Sig (Normalized) Sig (Original) acetaminophen 500 mg oral tablet (2 sources) Start: 01-08-2025 take 2 tablets by mouth every eight hours Acetaminophen 500 mg Tablet Active 1000 mg PO EVERY 8 HOURS 180 0 January 08, 2025 12:00am Start: 05-08-2019 End: 05-08-2019 acetaminophen (TYLENOL) tabl et 650 mg acetaminophen 325 mg / oxyCODONE hydrochloride 10 mg oral tablet (20 sources) Opioid Agonist Start: 04-17-2024 End: 12-10-2024 take 1 tablet by mouth every six hours as needed for pain Oxycodone-Acetaminophen (Percocet) 10-325 mg tablet Active 1 {tbl} PO EVERY 6 HOURS as needed for pain 28 7 0 April 24, 2024 Other acute postprocedural pain Other acute postprocedural pain Start: 2015 End: 04-17-2024 Oxycodone-Acetaminophen (Per cocet) 1 EACH tablet Discontinued 1 {tbl} PO THREE TIMES A DAY 2015 12:00am April 17, 2024 6:21pm Start: 2015 take 1 tablet by ramy th four times daily Oxycodone-Acetaminophen (Percocet) 1 EAC H tablet Active 1 TABLET PO 4 TIMES DAILY September 22, 2015 11:00pm Start: 2015 take 1 tablet by ramy th every six hours as needed Oxycodone-Acetaminophen (Percocet) 1 EAC H tablet Active 1 TABLET PO EVERY 6 HOURS NEEDED September 22, 2015 11:00pm [id number] 200 actuat albuterol 0.09 mg/actuat metered dose [...] Dihydropyridine Calcium Channel Ofelia Start: 06-05-2005 take 1 tablet by mouth once daily Amlodipine 10 MG tablet Active 10 mg PO DAILY 2015 12:00am amLODIPine 5 mg [...] days 20 tablet 0 05/08/2019 05/18/2019 Active Adtctojf-Ryhawdepk-Cthggei H MB (KIRK) 7-7-1.5 gram pwpk (20 sources) Arginine-Glutami ne-Calcium HMB (KIRK) 7-7-1.5 gram pwpk Take 1 Each by mouth once daily. Active Arginine-Glutami ne-Calcium HMB (KIRK) 7-7-1.5 gram pwpk Take 1 Each by mouth once daily. 0 Active Comment on above: Take 1 Each by mouth once daily. aspirin 81 mg delayed release oral tablet (20 sources) Platelet Aggregation Inhibitor, Nonsteroidal Anti-inflammatory Drug Start: 01-08-2025 take 1 tablet by mouth twice daily Aspirin 81 mg Tablet,Delayed Release (Dr/Ec) Active 81 mg PO TWICE A DAY January 08, 2025 12:00am Start: 04-17-2024 End: 12-10-2024 take 1 tablet by mouth once daily Aspirin 81 mg tablet,delayed release (DR/EC) Discontinued 81 mg PO DAILY April 17, 2024 1:00am December 10, 2024 8:36am Start: 07-18-2023 End: 04-13-2024 Aspirin 81 mg Tablet,Chewabl e Discontinued 81 mg PO TWICE DAILY WITH MEALS 60 30 0 July 18, 2023 12:00am April 13, 2024 2:28pm Take 81 mg aspirin twice daily for 4 weeks postoperatively for DVT prophylaxis. After 4 weeks can then go back to his normal 81 mg aspirin daily Start: 05-28-2022 End: 07-18-2023 take 1 tablet by mouth once daily Aspirin 81 mg Tablet,Delayed Release (Dr/Ec) Discontinued 81 mg PO DAILY May 28, 2022 1:00am July 18, 2023 10:35am atorvastatin 20 mg oral tablet (20 sources) HMG-CoA Reductase Inhibitor Start: 04-25-2023 End: 12-31-2024 take 1 tablet by mouth once daily at bedtime atorvastatin (LIPITOR) 20 mg tablet Indications: Mixed hyperlipidemia Take 1 tablet by mouth daily at bedtime. 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, with long-term current use of insulin (HCC) , Type 2 diabetes mellitus with microalbuminuria, with long-term current use of insulin (HCC) Use one sensor every 15 days, IDDM, E11.42 6 each 3 12/31/2024 Active docusate sodium 50 mg / sennosides, shelter 8.6 mg oral tablet (8 sources) Start: 07-18-19 End: 04-13-20 Sennosides-Docusate Sodium (Stool Softener-Stimulant Laxat) 8.6-50 mg Tablet Active 2 {tbl} PO TWICE A DAY as needed for constipation April 13, 2024 1:00am Take until first bowel movement, then as needed doxycycline hyclate 100 mg oral capsule (9 sources) Tetracycline-class Drug Start: 01-09-20 take 1 capsule by mouth twice daily Doxycycline Hyclate 100 mg capsule Active 100 mg PO TWICE A DAY 14 7 0 January 08, 2025 12:00am Start: 09-19-2023 End: 04-13-2024 take 1 capsule by mouth twice daily Doxycycline Hyclate 100 mg capsule Discontinued 100 mg PO TWICE A DAY September 19, 2023 12:00am April 13, 2024 2:28pm Start: 07-18-2023 End: 04-13-2024 take 1 capsule by mouth twice daily Doxycycline Monohydrate 100 mg Capsule Discontinued 100 mg PO TWICE A DAY 28 14 0 July 18, 2023 12:00am April 13, 2024 2:28pm Take for 2 weeks postoperatively esomeprazole 20 mg delayed release oral capsule (12 sources) Proton Pump Inhibitor Start: 2015 take 1 capsule by mouth once daily Esomeprazole Magnesium (Nexium) 20 MG capsule Active 20 MG PO DAILY September 22, 2015 11:00pm flash glucose scanning reader (FREESTYLE ALONSO 2 READER) (20 sources) Start: 06-05-2022 flash glucose scanning reader (FREESTYLE ALONSO 2 READER) Use as instructed to monitor glucose continuously, IDDM, E11.42 1 Each 06/05/2022 Active Start: 06-05-2022 flash glucose scanning reader (FREESTYLE ALONSO 2 READER) Use as instructed to monitor glucose continuously, IDDM, E11.42 1 Each 0 06/05/2022 Active Comment on above: Use as instructed to monitor glucose continuously, IDDM, E11.42 Humulin 70/30 Insulin Pen (12 [...] polyneuropathy, with long-term current use of insulin ([facility]) Inject subcutaneously 15 units breakfast, 15 units [...] polyneuropathy, with long-term current use of insulin ([facility]) , 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d by mild nonproliferative retinopathy and macular edema, with long-term current use of insulin ([facility]) Inject subcutaneously 24 units breakfast, 20 units [...] polyneuropathy, with long-term current use of insulin ([facility]) , 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d by mild nonproliferative retinopathy and macular edema, with long-term current use of insulin ([facility]) Inject subcutaneously 22 units breakfast, 22 units lunch, 22 units dinner 30 mL 5 06/20/2022 06/29/2022 Discontinued Start: 05-28-2022 Insulin Aspart (Niacinamide) (Fiasp Flextouch U-100 Insulin) 100 unit/mL (3 mL) Insulin Pen Active 10 U SC THREE TIMES A DAY as needed for for blood sugar May 28, 2022 1:00am pt takes as needed Start: 05-28-2022 Insulin Aspart (Niacinamide) (Fiasp Flextouch [...] polyneuropathy, with long-term current use of insulin ([facility]) , 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d by mild nonproliferative retinopathy and macular edema, with long-term current use of insulin (HCC) Inject subcutaneously 20 units breakfast, 20 units [...] ml insulin degludec 100 unt/ml pen injector (13 sources) Insulin Analog Start: 12-31-2024 insulin degludec (TRESIBA FLEXTOUCH U-100) 100 unit/mL [...] long-term current use of insulin (HCC) Inject 15 Units subcutaneously every morning. 15 mL 11 12/31/2024 Active Start: 07-10-2024 End: 12-31-2024 insulin degludec (TRESIBA FL EXTOUCH U-100) 100 unit/mL (3 mL) injection pen Inject 20 Units subcutaneously every morning. 15 mL 07/10/2024 12/31/2024 Discontinued Start: 05-25-2022 End: 06-05-2022 insulin degludec (TRESIBA FL EXTOUCH U-100) 100 unit/mL (3 mL) injection pen Indications: Type 2 diabetes mellitus with diabetic polyneuropathy, with long-term current use of insulin (HCC) , 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d by mild nonproliferative retinopathy and macular edema, with long-term current use of insulin (HCC) Inject 60 Units subcutaneously every morning. 30 mL 5 05/25/2022 06/05/2022 Discontinued Comment on above: Inject 60 Units subc utaneously every morning. Insulin Glargine U-300 Conc (Toujeo Solostar U-300 Insulin) 300 unit/mL (1.5 mL) insulin pen (6 sources) Start: 12-14-2022 Insulin Glargine U-300 Conc (Toujeo Solostar U-300 Insulin) 300 unit/mL (1.5 mL) insulin pen Active 20 U SC DAILY December 14, 2022 12:00am Start: 12-14-2022 Insulin Glargi ne U-300 Conc (Toujeo Solostar U-300 Insulin) 300 unit/mL (1.5 mL) insulin pen Active 40 U SC DAILY December 14, 2022 12:00am Start: [...] 10/07/2020 Active meloxicam 7.5 mg oral tablet (6 sources) Nonsteroidal Anti-inflammatory Drug Start: 01-08-2025 take 1 tablet by mouth twice daily Meloxicam 7.5 mg Tablet Active 7.5 mg PO TWICE A DAY 60 0 January 08, 2025 12:00am Start: 07-18-2023 End: 04-13-2024 take 1 tablet by mouth twice daily Meloxicam 7.5 mg Tablet Discontinued 7.5 mg PO TWICE A DAY 60 30 0 July 18, 2023 12:00am April 13, 2024 2:31pm Do not take any other nonsteroidal anti-inflammatories while using meloxicam/Mobic. menthol 0.16 mg/mg topical [...] A DAY 10 5 October 10, 2020 ondansetron 4 mg disintegrating oral tablet (3 sources) Serotonin-3 Receptor Antagonist Start: 04-17-2024 take 1 tablet by mouth every eight hours as needed for nausea and vomiting Ondansetron 4 mg tablet,disintegrat ing Active 4 mg PO Q8H as needed for nausea and vomiting 14 0 April 17, 2024 1:00am predniSONE 10 mg oral tablet (1 source) [...] Start: 2015 take 1 capsule by mo [facility] once daily Pregabalin (Lyrica) 150 MG capsule Active 150 mg PO .qd 2015 12:00am Start: 2015 take 1 capsule by mo [facility] twice daily Pregabalin (Lyrica) 150 MG capsule Active 150 mg PO TWICE A DAY 2015 12:00am Comment on above: Take 1 capsule by [facility] three times daily. Semaglutide (7 sources) Start: 05-28-2022 Semaglutide (Ozempic) 1 mg/dose (4 mg/3 mL) Pen Injector Active 1 MG SC STAPLETON May 28, 2022 1:00am Start: 05-28-2022 Semaglutide (O zempic) 1 mg/dose (4 mg/3 mL) Pen Injector Active 1 MG SC STAPLETON May 28, 2022 12:00am sertraline 50 mg oral tablet (2 sources) Serotonin Reuptake Inhibitor Start: 12-10-2024 take 1 tablet by mouth once daily Sertraline 50 mg tablet Active 50 mg PO DAILY December 10, 2024 12:00am tirzepatide (MOUNJARO) 10 mg/0.5 mL pen injector (19 sources) Start: 07-02-2024 tirzepatide (M OUNJARO) 10 mg/0.5 mL pen injector Indications: 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 6 mL 3 12/31/2023 Active Tirzepatide (Mounjaro) 10 mg/0.5 mL pen injector (3 sources) Start: 04-13-2024 Tirzepatide (Mounjaro) 10 mg/0.5 mL pen injector Active 10 mg SC STAPLETON April 13, 2024 1:00am Tirzepatide (Tirzepatide 7.5 Mg/0.5 Ml Subcutaneous Pen Injector) 7.5 mg/0.5 mL pen injector (1 source) Start: 06-24-2023 Tirzepatide (Tirzepatide 7.5 Mg/0.5 Ml Subcutaneous Pen Injector) 7.5 mg/0.5 mL pen injector Active 7.5 MG SC STAPLETON June 24, 2023 12:00am tiZANidine 4 mg oral tablet (2 sources) Central alpha-2 Adrenergic Agonist Start: 12-10-2024 take 2-4 mg by mouth three times daily as needed for muscle spasms Tizanidine 4 mg tablet Active 2 - 4 mg PO 3 TIMES DAILY NEEDED as needed for muscle spasm December 10, 2024 12:00am Completed/Discontinued Medications Medication Drug Class(es) Dates Sig (Normalized) Sig (Original) azithromycin (ZITHROMAX) 500 mg in dextrose 5 % 250 mL IVPB (1 source) Start: 05-08-2019 End: 05-08-2019 azithromycin (ZITHROMAX) 500 mg in dextrose 5 % 250 mL IVPB Blood-Glucose Meter,Continuous (DEXCOM G6 IT INFRASTRUCTURE SPECIALIST) misc (17 sources) Start: 08-23-2023 End: 12-31-2023 Blood-Glucose Meter,Continuous (DEXCOM G6 IT INFRASTRUCTURE SPECIALIST) misc Indications: 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, with long-term current use of insulin ([facility]) Use continuously to monitor glucose, IDDM, E 11.42 1 Each 08/23/2023 12/31/2023 Discontinued Start: 08-23-2023 Blood-Glucose Meter,Continuous (DEXCOM G6 IT INFRASTRUCTURE SPECIALIST) [facility] [place]ications: 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, with long-term current use of insulin (HCC) Use continuously to monitor glucose, IDDM, E 11.42 1 Each 08/23/2023 Active Start: 08-23-2023 Blood-Glucose Meter,Continuous (DEXCOM G6 IT INFRASTRUCTURE SPECIALIST) [facility] [place]ications: Type 2 diabetes mellitus with both [...] days, IDDM, E 11.42 2 Each 11 05/25/2022 08/24/2022 Discontinued Start: 05-25-2022 Blood-Glucose Sensor (FREESTYLE ALONSO 3 SENSOR) miller Indications: Type 2 diabetes mellitus with diabetic polyneuropathy, with long-term current use of insulin (HCC) , 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d by mild nonproliferative retinopathy and macular edema, with long-term current use of insulin (HCC) Use one sensor every 14 days, IDDM, E 11.42 2 Each 11 05/25/2022 Active Comment on above: Use one [...] 90 days, IDDM, E 11.42 1 Each 3 08/23/2023 12/31/2023 Discontinued Start: 08-23-2023 Blood-Glucose Transmitter [...] 0.028 meq/ml injectable solution (2 sources) Start: 2023 End: 2023 lactated ringers iv infusion cefTRIAXone (ROCEPHIN) 2 g in dextrose 5 % 50 mL IVPB (1 source) Start: 2019 End: 2019 cefTRIAXone (ROCEPHIN) 2 g in dextrose 5 % 50 mL IVPB cephalexin 500 mg oral capsule (3 sources) Cephalosporin Antibacterial Start: 2023 End: 2024 take 1 capsule by mouth three times daily Cephalexin 500 mg capsule Discontinued 500 mg PO THREE TIMES A DAY 30 0 April 20, 2024 1:00am December 10, 2024 8:36am cholecalciferol 0.05 mg oral capsule (20 sources) Vitamin D Start: 2020 End: 2021 Cholecalciferol, Vitamin D3, (VITAMIN D-3) 50 mcg (2,000 unit) cap Indications: Vitamin D deficiency One capsule daily 90 capsule 3 11/14/2021 Active Comment on above: One capsule daily 0.5 ml dulaglutide 3 mg/ml auto-injector (19 sources) GLP-1 Receptor Agonist Start: 2023 End: 2023 inject 1.5 mg by subcutaneous injection every [...] aneously one time a week. (USE WHILE TAMI IS OUT OF STOCK) empagliflozin 25 mg oral tablet (20 sources) Sodium-Glucose Cotransporter 2 Inhibitor Start: 022 End: 023 take 1 tablet by mouth [...] on above: Take 1 capsule by mo [facility] one time a week. X 12 wks. 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, with long-term current use of insulin (HCC) , Type 2 diabetes mellitus with diabetic polyneuropathy, with long-term current use of insulin (HCC) , Type 2 diabetes mellitus with microalbuminuria, with long-term current use of insulin (HCC) , Hypoglycemia due to type 2 diabetes mellitus (HCC) use as directed; one sensor every 14 days, IDDM, E11.42 6 Kit 3 07/02/2024 12/31/2024 Discontinued Start: 07-02-2024 flash glucose sensor (FREESTYLE ALONSO 2 SENSOR) kit Indications: 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, with long-term current use of insulin (HCC) , Type 2 diabetes mellitus with diabetic polyneuropathy, with long-term current use of insulin (HCC) , Type 2 diabetes mellitus with microalbuminuria, with long-term current use of insulin (HCC) , Hypoglycemia due to type 2 diabetes mellitus (HCC) use as directed; one sensor every 14 days, IDDM, E11.42 6 Kit 3 07/02/2024 Active Start: 06-24-2023 End: 07-02-2024 flash glucose sensor (FREEST YLE ALONSO 2 SENSOR) kit Indications: Type 2 diabetes mellitus with diabetic polyneuropathy (HCC) use as directed; one sensor every 14 days, IDDM, E11.42 2 Kit 06/24/2023 07/02/2024 Discontinued Start: 06-24-2023 flash glucose sensor (FREESTYLE ALONSO 2 SENSOR) kit Indications: Type 2 diabetes mellitus with diabetic polyneuropathy (HCC) use as directed; one sensor every 14 days, IDDM, E11.42 2 Kit 06/24/2023 Active Start: 06-04-2022 End: 06-24-2023 flash [...] one sensor every 14 days, IDDM, E11.42 gabapentin 300 mg oral capsule (8 sources) [...] on above: Take 1 capsule by mo [facility] twice daily for 30 days. gemfibrozil 600 mg oral tablet (18 sources) Peroxisome Proliferator Receptor alpha Agonist Start: 0 End: 3 take 1 tablet by mouth twice daily gemfibrozil (LOPID) 600 mg tablet Take 1 tablet by mouth twice daily. 180 tablet 3 04/06/2020 08/24/2022 Discontinued Comment on above: Take 1 tablet by ramy twice daily. glipiZIDE er 10 mg 24 hr extended release oral tablet (20 sources) Sulfonylurea Start: 2 End: 3 take 1 tablet by mouth once daily in the morning glipiZIDE (GLUCOTROL XL) 10mg 24 hr tablet Indications: Type 2 diabetes mellitus with diabetic polyneuropathy, with long-term current use of insulin (HCC) Take 1 tablet by mouth every morning. 90 tablet 3 01/09/2022 05/25/2022 Discontinued Start: 08-24-2020 End: 01-07-2022 take 10 mg by mouth once daily Glipizide Active 10 MG PO DAILY October 06, 2020 11:00pm Comment on above: Take 1 tablet by ramy every morning. 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 Tirzepatide (Mounjaro) 7.5 mg/0.5 mL pen injector (5 sources) Start: 06-24-2023 End: 04-13-2024 Tirzepatide (Mounjaro) 7.5 mg/0.5 mL pen injector Discontinued 7.5 mg SC STAPLETON June 24, 2023 1:00am April 13, 2024 2:32pm Start: 06-24-2023 Tirzepatide (M ounjaro) 7.5 mg/0.5 mL pen injector Active 7.5 MG SC STAPLETON June 24, 2023 1:00am tirzepatide (MOUNJARO) 7.5 mg/0.5 mL pen injector (11 sources) Start: 11-04-2023 End: 12-31-2023 tirzepatide (MOUNJARO) 7.5 m g/0.5 mL pen injector Indications: Type 2 diabetes [...] of left foot with necrosis of muscle] Onset: 03-15-2025 Chronic Coronary atherosclerosis and other heart disease (20 sources) Coronary arteriosclerosis; Translations: [Atherosclerotic heart disease of [place] coronary artery without angina pectoris] Onset: 12-06-2023 [...] [Essential (primary) hypertension] Onset: 08-13-2005 04-04-2015 Chronic Infective arthritis and osteomyelitis (except that caused by tuberculosis or sexually transmitted disease) (3 sources) Acute osteomyelitis of ankle and/or foot; Translations: [Other acute osteomyelitis, left ankle and foot] 04-17-2024 Chronic Nutritional deficiencies (20 sources) Vitamin D deficiency; Translations: [Vitamin D deficiency, unspecified] Onset: 01-23-2019 01-23-2019 Chronic Osteoarthritis (20 sources) Localized, primary osteoarthritis; Translations: [Primary osteoarthritis, unspecified wrist] Onset: 02-04-2006 03-30-2008 Chronic Other aftercare (6 sources) [facility] (current) use of insulin; Translations: [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, with long-term current use of insulin (HCC)] Onset: 11-14-2021 Episodic Other connective tissue disease (5 sources) History of total knee arthroplasty; Translations: [Presence of right artificial knee joint] 07-17-2023 Chronic Other connective tissue disease (2 sources) Presence of right artificial knee joint; Translations: [Knee joint replacement] 07-18-2023 Chronic Other connective tissue disease (20 sources) History of right total knee replacement; Translations: [Presence of right artificial knee joint] Onset: 12-06-2023 12-06-2023 Chronic Other connective tissue disease (19 sources) Foot pain; Translations: [Pain in right foot] 12-20-2021 Episodic Other connective tissue disease (7 sources) Pain in right foot; Translations: [Pain in limb] Episodic Other connective tissue disease (3 sources) Spontaneous rupture of flexor tendons; Translations: [Spontaneous rupture of flexor tendons, right ankle and foot] 09-19-2023 Episodic Other endocrine disorders (20 sources) Male [...] carpal tunnel syndrome] Onset: 12-11-2023 Chronic Other nervous system disorders (3 sources) Acute postoperative pain; Translations: [Other acute postprocedural pain] 04-17-2024 Episodic Other nutritional; endocrine; and metabolic disorders (2 sources) Body mass index 40+ - severely obese; Translations: [Morbid (severe) obesity due to excess calories] Onset: 02-08-2011 02-08-2011 Chronic Other nutritional; endocrine; and metabolic disorders (20 sources) Severe obesity; Translations: [Morbid (severe) obesity due to excess calories] Onset: 11-14-2021 Chronic Other nutritional; endocrine; and metabolic disorders (3 sources) Amyloidosis; Translations: [Amyloidosis, unspecified] 07-02-2024 Chronic Other nutritional; endocrine; and metabolic disorders (13 sources) Obese class II; Translations: [Obesity, Class II, BMI 35-39.9] Onset: 07-02-2024 07-02-2024 Chronic Other nutritional; endocrine; and metabolic disorders (1 source) Amyloidosis, unspecified; Translations: [Amyloidosis, unspecified type (HCC)] Onset: 12-31-2024 Chronic Other nutritional; endocrine; and metabolic disorders [...] of right Achilles tendon, initial encounter] Onset: 01-14-2025 Episodic Substance-related disorders (20 sources) Smoker; Translations: [Nicotine dependence, unspecified, uncomplicated] Onset: 12-06-2023 12-06-2023 Chronic Unclassified (1 source) Obesity, Class II, BMI 35-39.9; Translations: [Obesity, Class II, BMI 35-39.9] Onset: 07-02-2024 Unclassified (1 source) Class 3 severe obesity [...] (1 source) Diabetes mellitus without complication 07-02-2024 Genitourinary symptoms and ill-defined conditions (1 source) Proteinuria, unspecified; Translations: [Type 2 diabetes mellitus with microalbuminuria, with long-term current use of insulin ([facility])] Onset: Episodic Inflammatory conditions of male genital organs [...] Test Name Value Interpretation Reference Range Facility Culture, Anaerobic Any Sourc rosalind 03-13-2025 CUAN LEFT HEEL ULCER No anaerobic bacteria isolated. Normal [facility] Comment on above: Performed By: #### M 100.3000, M100.2000, M600.2000, M100.4001, M600.2200 #### [facility] [address] [place], [address] Wound Cultureon 03-13-2025 WC LEFT HEEL ULCER #2 Clinical correlation necessary, Possible skin contamination. Providencia rettgeri Amount Growth Rare Staphylococcus epidermidis Staphylococcus epidermidis PROVLG Amount Growth Rare Proteus vulgaris Ampicillin Islt ISHA Ampicillin+Sulbac Islt ISHA <=2 S Cefepime Islt ISHA <=0.12 cefTRIAXone Islt ISHA <=0.25 S Ciprofloxacin Islt ISHA <=0.06 S Gentamicin Islt ISHA <=1 S levoFLOXacin Islt ISHA <=0.12 S Meropenem Islt ISHA <=0.25 S Pip+Tazo Islt ISHA <=4 S Tobramycin Islt ISHA <=1 S TMP SMX Islt ISHA <=20 S Staphylococcus epidermidis: REACTION cefOXitin Susc Islt POS Doxycycline Islt ISHA >=16 R Clindamycin Islt ISHA <=0.12 Clindamycin.induced Susc Islt NEG Erythromycin Islt ISHA >=8 R Gentamicin Islt ISHA <=0.5 S Linezolid Islt ISHA 2 S Oxacillin Susc Islt >=4 R Tetracycline Islt ISHA >=16 R TMP SMX Islt ISHA >=320 R Vancomycin Islt ISHA 1 S Proteus vulgaris: REACTION Ampicillin Islt ISHA >=32 R Ampicillin+Sulbac Islt ISHA 8 S Cefepime Islt ISHA <=0.12 Ciprofloxacin Islt ISHA <=0.06 S Gentamicin Islt ISHA <=1 S levoFLOXacin Islt ISHA <=0.12 S Pip+Tazo Islt ISHA <=4 S TMP SMX Islt ISHA <=20 S Normal [facility] Comment on above: Performed By: #### M 100.3000, M100.2000, M600.2000, M100.4001, M600.2200 #### [facility] [address] [place], [place], [address] Gram Stainon 03-11-2025 GS LEFT HEEL ULCER Gram Stain 3+ Red Blood Cells No organisms seen No White Blood Cells No Epithelial cells Normal [facility] Comment on above: Performed By: #### M 100.3000, M100.2000, M600.2000, M100.4001, M600.2200 #### [facility] [address] [place], [place], [address] Wound Ctr History AND Physic kodi 03-10-2025 Wound Ctr History & Physical [facility] [address] [place] [address] H P Exam - Wound Care 03/10/25 1507 MR#: [id number] Acct: [id number] Name: ISA MAYEN Rep #: [id number] : 1960 64 From: Danilo Rodriguez DPM PCP: RICARDO ABRAHAM MD Status:REG RCR Location: History of Present Illness Date of Service: 03/10/25 Chief Complaint: Left great toe ulcer History of Wound: 61-year-old diabetic male left heel wound. Progress of Wound: Patient is a 64-year-old diabetic male presenting to the wound care center today for evaluation of chief complaint of full-thickness wound to the left heel. Patient is diabetic with controlled numbers. He has A1c has gone down from 13.1 to 6.0%. He admits that the wound has been present for approximately 1 month. He is unsure how he got there. He did have issues with his right lower extremity and was healed by Dr. Yun who is no longer with the wound care center. He is now a controlled diabetic. He does smoke cigars. His blood sugars well-controlled. Denies trauma. Denies constitutional symptoms. No other pedal complaints at this time. [facility] Medical History Difficulty chewing Burn History of steroid therapy Wears glasses [...] mg tablet 10 mg PO DAILY 09/23/15 01/06/25 H istory hydrochlorothiazide 25 mg tablet 25 mg PO DAILY 09/23/15 01/06/25 H istory pregabalin 150 mg capsule (Lyrica) 150 mg PO .qd 09/23/15 01/05/25 History lisinopril 20 mg tablet 20 mg PO DAILY 10/07/20 01/06/25 H istory insulin glargine U-300 conc 300 20 unit subcut DAILY 12/14/2207/28 History unit/mL (1.5 mL) subcutaneous pen (Touisabello SoloStar U-300 Insulin) sennosides 8.6 mg-docusate sodium 2 tab PO BID PRN constipation 01/27 Unknown History 50 mg tablet (Stool Softener-Stimulant Laxative) tirzepatide 10 mg/0.5 mL 10 mg subcut STAPLETON 04/13/24 12/24/24 History subcutaneous pen injector (Mounjaro) oxycodone-acetaminophen 10 mg-325 1 tab PO Q6H PRN pain 7 days #28 04/24/24 01/06/25 Rx mg tablet (Percocet) tabs sertraline 50 mg tablet 50 mg PO DAILY 12/10/24 01/06/25 H istory tizanidine 4 mg tablet 2 - 4 mg PO TID PRN PRN muscle 11/27 Unknown History spasm acetaminophen 500 mg tablet 1,000 mg (2 x 500 mg) PO Q8 #180 0 01/08/25 Unknown Rx tabs aspirin 81 mg tablet,delayed 81 mg PO BID #30 tabs 01/08/25 Unk nown Rx release Held on 03/10/25. Instructions: Ordered doxycycline hyclate 100 mg capsule 100 mg PO BID 2 weeks #28 caps 1 05/10/24 Unknown Rx Allergy/AdvReac Type Severity Reaction Status Date / Time codeine Allergy Rash Verified 01/07/25 10:12 Family History Mother Cancer Renal CA Hypertension Diabetes Father Cancer History of NH Lymphoma and Colon CA. Hypertension Diabetes Surgical History Status post total shoulder arthroplasty Hx of total knee arthroplasty Status post total right knee replacement History of Achilles tendon repair History of toe surgery Hx of cystoscopy Hx of shoulder surgery Hx of chest tube placement Status post arthroscopic surgery of left knee History of exploratory laparotomy History of arthroscopic surgery of shoulder History of left shoulder replacement Social History household members: none Smoking Status: Current every day smoker (Patient has not smoked for a week.) tobacco type: cigars how long ago did patient quit smoking: Quit 18 months prior, 5 cigars daily x 40 years prior to this. alcohol intake: never substance use type: does not use Vital Signs Vital Signs Vital Signs: 03/10/25 13:05 Temperature 97 F L Temperature Source Temporal Pulse Rate 68 Respiratory Rate 18 Blood Pressure 161/103 H Blood Pressure Mean 122 Blood Pressure Source Monitor Blood Pressure Position Sitting Blood Pressure Location Left Arm Oxygen Delivery Method Room Air Weight Weight: 122.47 kg Body Mass Index (BMI) 35.6 Physical Exam Blayne (more content not included)... [facility] 02-17-2025 [facility] Telephone (Lunagames) KOTABISHISA ([id number]) 1960 M Date Time Provider Department 02/17/25 SHARLENE ESCOBAR During your visit today, we recorded the following information about you: Yanet Karimi RN 02/17/2025 2:19 PM Signed Received a form from [employer] that a there is cost savings for Atorvastatin Calcium. Simvastatin is the cheaper medication. Please review and advise. Form is on your desk for review. Sharlene Escobar APRN.CNP 02/18/2025 2:20 PM Signed He is on amlodipine for BP and there is an increased risk of myopathy using simvastatin with amlodipine therefore recommend he stay on atorvastatin. Form completed as such. Please send. Thank you Naty Sen MA 02/18/2025 2:56 PM Signed Form faxed to: [phone] Confirmation fax received. Transmission successful. Allergies As of Date: 02/17/2025 Noted Allergy Reaction CODEINE 08/06/2008 2 - Rash Comments: RASH METFORMIN 04/05/2014 14 - Other: See Comments Comments: Tongue swelling SEASONAL ALLERGIES 02/06/2011 14 - Other: See Comments Comments: Watery eyes, stuffy nose, sneezing Date Reviewed: 12/31/2024 Reviewed by: Sharlene Escobar APRN.CNP - Fully Assessed Reason for Visit: Patient Update [1234] Prescriptions as of 02/18/2025 - insulin degludec (TRESIBA FLEXTOUCH U-100) 100 unit/mL (3 mL) injection pen Inject 15 Units subcutaneously every morning. - Blood-Glucose Sensor (FREESTYLE ALONSO 2 PLUS SENSOR) miller Use one sensor every 15 days, IDDM, E11.42 - atorvastatin (LIPITOR) 20 mg tablet Take 1 tablet by mouth daily at bedtime. - insulin aspart U-100 (NOVOLOG FLEXPEN U-100 [...] x 16 Use FOUR pen needles daily - Lancets lancets Use as instructed; 3 lancets daily, IDDM, E11.42 - flash glucose scanning reader ([employer] ALONSO 2 READER) Use as instructed to monitor glucose continuously, IDDM, E11.42 - pregabalin (LYRICA) 150 mg capsule Take 1 capsule by mouth three times daily. - Fohtxxju-Zoipcaeuz-Xyggsic HMB (KIRK) 7-7-1.5 gram pwpk Take 1 Each by mouth once daily. - amLODIPine-benazepril (LOTREL) 5-20 mg per capsule - HYDROCHLOROTHIAZIDE 25 MG TAB Take one(1) tablet daily. Problem List As Of Date 02/17/2025 Noted Resolved Essential hypertension [I10] 08/13/2005 OPEN WOUND FINGER W TENDON [S61.209A] 08/13/2005 INJURY DIGITAL NERVE [ZHM3532] 08/13/2005 TRIGGER FINGER [M65.30] 08/13/2005 INJURY FINGER [...] 07/02/2024 Encounter Status:Closed by NATY SEN on 02/18/25 Normal [facility] Bedside Glucoseon 01-13-2025 FINGERSTICK GLU 127 mg/dL High 74-106 [facility] Comment on above: Result Comment: VI FERRERA OF PATIENT CARE PER NURSING PROTOCOL Performed By: #### M 100.3000, M100.1999, M6, M1.400, M600.2199 #### [facility] [address] [place], [place], [address] Anion gap in Serum or Plasma Ordered By: Miguelito Garcia on 01-08-2025 Anion gap [Moles/Vol] 12 mmol/L 09-17 [facility] BUN/creatinine ratioOrdered By: Miguelito Garcia on 01-08-2025 Urea nitrogen/Creatinine [Mass ratio] 16.5 mg/mg 02-22 [facility] Basic Metabolic Profile (BMP )on 01-08-2025 BUN/CRE 16.5 RATIO Normal 02-22 [facility] Comment on above: Performed By: #### M 100.3000, M100.1999, M6.1999, M100.400, M600.0 #### [facility] [address] [place], [place], [address] Calcium [Mass/Vol] 9.3 mg/dL Normal 7.6-11.0 [facility] Comment on above: Performed By: #### M 100.3000, M100.2000, M600.1999, M100.400, M600.2200 #### [facility] [address] [place], [address] Chloride [Moles/Vol] 106 mmol/L Normal 98-108 [facility] Comment on above: Performed By: #### M 100.3000, M100.2000, M600.2000, M100.4001, M600.2200 #### [facility] [address] [place], [address] CO2 [Moles/Vol] 21.5 mmol/L Normal 21.0-32.0 [facility] Comment on above: Performed By: #### M 100.3000, M100.2000, M600.2000, M100.4001, M600.2200 #### [facility] [address] [place], [address] Creatinine [Mass/Vol] 0.95 mg/dL Normal 0.70-1.20 [facility] Comment on above: Performed By: #### M 100.3000, M100.1999, M600.2000, M100.4001, M600.2200 #### [facility] [address] [place], [address] ECRCL 105.73 ml/min Normal 50-250 [facility] Comment on above: Performed By: #### M 100.3000, M100.2000, M600.2000, M100.4001, M600.2200 #### [facility] [address] [place], [address] GAP 12 Normal 5-15 [facility] Comment on above: Performed By: #### M 100.3000, M100.2000, M600.2000, M100.4001, M600.2200 #### [facility] [address] [place], [address] GFR/1.73 sq M.predicted among non-blacks MDRD (S/P/Bld) [Vol rate/Area] 89 mL/min/{1.73_m2} Normal >60 [facility] Comment on above: Result Comment: mL/m in/1.73m2 CKD-EPI Creatinine Equation (2020) Performed By: #### M 100.3000, M100.1999, M6.1999, M100.4001, M600.2200 #### [facility] [address] [place], [address] Glucose [Mass/Vol] 156 mg/dL High 70-99 [facility] Comment on above: Performed By: #### M 100.3000, M100.1999, M6.1999, M100.4001, M600.2200 #### [facility] [address] [place], [address] Potassium [Moles/Vol] 4.2 mmol/L Normal 3.3-5.1 [facility] Comment on above: Performed By: #### M 100.3000, M1.1999, M6, M100.400, M600.2200 #### [facility] [address] [place], [address] Sodium [Moles/Vol] 140 mmol/L Normal 133-145 [facility] Comment on above: Performed By: #### M 100.3000, M1.1999, M6, M100.4001, M600.2200 #### [facility] [address] [place], [address] Urea nitrogen [Mass/Vol] 16 mg/dL Normal 4-19 [facility] Comment on above: Performed By: #### M 100.3000, M100.1999, M600.1999, M100.4001, M600.2200 #### [facility] [address] [place], [address] Bedside Glucoseon 01-08-2025 FINGERSTICK GLU 186 mg/dL High 74-106 [facility] Comment on above: Result Comment: VI FERRERA OF PATIENT CARE PER NURSING PROTOCOL Performed By: #### M 100.3000, M100.1999, M6, M1.400, M6.2199 #### [facility] [address] [place], [address] FINGERSTICK GLU 142 mg/dL High 74-106 [facility] Comment on above: Result Comment: VI FERRERA OF PATIENT CARE PER NURSING PROTOCOL Performed By: #### M 100.3000, .1999, M6, .400, M6.2199 #### [facility] [address] [place], [address] CBC-Complete Blood Cnt No Di ffon 01-08-2025 Erythrocyte distribution width (RBC) [Ratio] 13.7 % Normal 11.6-14.6 [facility] Comment on above: Performed By: #### M 100.3000, , , .400, M6.0 #### [facility] [address] [place], [address] Hematocrit (Bld) [Volume fraction] 37.7 % Low 40-54 [facility] Comment on above: Performed By: #### M 100.3000, , , M1.400, M600.0 #### [facility] [address] [place], [address] Hemoglobin (Bld) [Mass/Vol] 13.3 g/dL Normal 13.0-16.5 [facility] Comment on above: Performed By: #### M 100.3000, M1.1999, M6, M100.4001, M600.2200 #### [facility] [address] [place], [address] MCH (RBC) [Entitic mass] 28.9 pg Normal 27.0-32.0 [facility] Comment on above: Performed By: #### M 100.3000, M1.1999, M6, .4001, M600.0 #### [facility] [address] [place], [address] MCHC (RBC) [Mass/Vol] 35.3 g/dL Normal 32-36 [facility] Comment on above: Performed By: #### M 100.3000, M100.1999, M600.1999, M100.4001, M600.2200 #### [facility] [address] [place], [address] MCV (RBC) [Entitic vol] 82.0 fL Normal 80-94 [facility] Comment on above: Performed By: #### M 100.3000, M100.1999, M600.1999, M100.400, M6.2199 #### [facility] [address] [place], [address] Platelet mean volume (Bld) [Entitic vol] 10.4 fL Normal 6.2-12.0 [facility] Comment on above: Performed By: #### M 100.3000, M100.1999, M600.1999, M100.400, M6.2199 #### [facility] [address] [place], [address] Platelets (Bld) [#/Vol] 180 10*3/uL Normal 150-450 [facility] Comment on above: Performed By: #### M 100.3000, M100.1999, M600.1999, M100.400, M600.2199 #### [facility] [address] [place], [address] RBC (Bld) [#/Vol] 4.60 10*6/uL Normal 4.6-6.2 [facility] Comment on above: Performed By: #### M 100.3000, M100.1999, M600.1999, M100.4001, M600.2200 #### [facility] [address] [place], [address] RDW SD 40.5 fl Normal 35.1-43.9 [facility] Comment on above: Performed By: #### M 100.3000, M100.1999, M600.1999, M100.4001, M600.2200 #### [facility] [address] [place], [address] WBC (Bld) [#/Vol] 16.5 10*3/uL High 4.4-11.0 [facility] Comment on above: Performed By: #### M 100.3000, M100.1999, M600.1999, M100.4001, M600.2200 #### [facility] [address] [place], [address] Carbon dioxide, total [Moles /volume] in Central venous bloodOrdered By: Miguelito Garcia on 01-08-2025 CO2 [Moles/Vol] 21.5 mmol/L 21.0-32.0 [facility] Chloride assayOrdered By: Rizwana Garcia on 01-08-2025 Chloride [Moles/Vol] 106 mmol/L 98-108 [facility] Erythrocyte distribution wid th ratioOrdered By: Miguelito Garcia on 01-08-2025 Erythrocyte distribution width (RBC) [Ratio] 13.7 % 11.6-14.6 [facility] Erythrocyte distribution wid th standard deviationOrdered By: Miguelito Garcia on 01-08-2025 Erythrocyte distribution width (RBC) [Ratio] 40.5 fl 35.1-43.9 [facility] Glomerular filtration rate ( GFR) estimation/1.73 sq m using serum, plasma, or whole bOrdered By: Miguelito Garcia on 01-08-2025 GFR/1.73 sq M.predicted among non-blacks MDRD (S/P/Bld) [Vol rate/Area] 89 mL/min/{1.73_m2} >60 [facility] Comment on above: mL/min/1.73m2 CKD-EP I Creatinine Equation (2020) [facility] By: Meredith Momin on 01-08-2025 Glucose [Mass/Vol] 186 mg/dL High 74-106 [facility] Comment on above: MANAGEMENT OF PATIEN T CARE PER NURSING PROTOCOL Hematocrit Auto (Bld) [Volum e fraction]Ordered By: Miguelito Garcia on 01-08-2025 Hematocrit (Bld) [Volume fraction] 37.7 % Low 40-54 [facility] Hemoglobin measurementOrdere d By: Miguelito Garcia on 01-08-2025 Hemoglobin (Bld) [Mass/Vol] 13.3 g/dL 13.0-16.5 [facility] MCV (mean corpuscular volume ) determinationOrdered By: Miguelito Garcia on 01-08-2025 MCV (RBC) [Entitic vol] 82.0 fL 80-94 [facility] Mean corpuscular hemoglobin (MCH) determinationOrdered By: Miguelito Garcia on 01-08-2025 MCH (RBC) [Entitic mass] 28.9 pg 27.0-32.0 [facility] Mean corpuscular hemoglobin concentration (MCHC) determinationOrdered By: Miguelito Garcia on 01-08-2025 MCHC (RBC) [Mass/Vol] 35.3 g/dL 32-36 [facility] Mean platelet volume determi nationOrdered By: Miguelito Garcia on 01-08-2025 Platelet mean volume (Bld) [Entitic vol] 10.4 fL 6.2-12.0 [facility] Platelet countOrdered By: Rizwana Garcia on 01-08-2025 Platelets (Bld) [#/Vol] 180 10*3/uL 150-450 [facility] Potassium measurement (mass/ volume)Ordered By: Miguelito Garcia on 01-08-2025 Potassium (Unsp spec) [Mass/Vol] 4.2 mmol/L 3.3-5.1 [facility] RBC Auto (Bld) [#/Vol]Ordere d By: Miguelito Garcia on 01-08-2025 RBC (Bld) [#/Vol] 4.60 10*6/uL 4.6-6.2 [facility] Serum creatinine measurement (mass/volume)Ordered By: Miguelito Garcia on 01-08-2025 Creatinine [Mass/Vol] 0.95 mg/dL 0.70-1.20 [facility] Serum glucose measurement (m ass/volume)Ordered By: Miguelito Garcia on 01-08-2025 Glucose [Mass/Vol] 156 mg/dL High 70-99 [facility] Serum or plasma calcium cameila urement (mass/volume)Ordered By: Miguelito Garcia on 01-08-2025 Calcium [Mass/Vol] 9.3 mg/dL 7.6-11.0 [facility] Serum or plasma urea nitroge n measurement (mass/volume)Ordered By: Miguelito Garcia on 01-08-2025 Urea nitrogen [Mass/Vol] 16 mg/dL 4-19 [facility] Sodium levelOrdered By: Erwin Garcia on 01-08-2025 Sodium [Moles/Vol] 140 mmol/L 133-145 [facility] White blood cell (WBC) count Ordered By: Miguelito Garcia on 01-08-2025 WBC (Bld) [#/Vol] 16.5 10*3/uL High 4.4-11.0 [facility] Bedside Glucoseon 01-07-2025 FINGERSTICK GLU 337 mg/dL High 74-106 [facility] Comment on above: Result Comment: VI FERRERA OF PATIENT CARE PER NURSING PROTOCOL Performed By: #### M 100.3000, M100.2000, M600.2000, M100.4001, M600.2200 #### [facility] [address] [facility] [place], [address] Consultation - [facility] 01-07-2025 Consultation - Hospitalist [facility] Medical Records Department [address] [place] [address] Consultation - Hospitalist 01/07/251946 MR#: [id number] Acct: [id number] Name: ISA MAYEN Rep #: [id number] : 1960 64 From: Ann Mansfield MD PCP: RICARDO ABRAHAM MD Status:ADM RUDDY [place] [facility] Assessment Plan Assessment/Plan (1) Type 2 diabetes mellitus with diabetic polyneuropathy: QUALIFIERS: Diabetes mellitus skilled nursing insulin use: with skilled nursing use Qualified Code(s): E11.42 - Type 2 diabetes mellitus with diabetic polyneuropathy; Z79.4 - emt intermediate (current) use of insulin PLAN: Plan #Hypertension - Will continue home blood pressure medications with holding parameters # Chronic pain -Follows with pain management -Scheduled Tylenol - Patient's home Oxy 10 every 6 continued as well as his pregabalin - Patient also placed on scheduled MS Contin #Type 2 diabetes mellitus -Glucose checks and sliding scale insulin - Continue long-acting insulin but at lower dose to avoid hypoglycemia - Can uptitrate as tolerated - Resume home dosing on discharge unless any significant concerns arise #Depression/anxiety -Continue home medications # Right shoulder rotator cuff tear arthropathy - Status post right reverse total shoulder arthroplasty with Dr. Garcia 01/07/25 - Management/pain management per primary # Chronic diabetic foot ulcer - Patient has a chronic diabetic foot ulcer, used to follow with wound care but has been doing some corn care at home every day and reports it has slowly been healing - Wound care consult has been placed #DVT ppx: Timing and agent discretion of primary Ann Mansfield MD Time spent in the patient's overall evaluation, decision-making process, review of diagnostic data, adjustment of management, discussion with other providers, nursing and ancillary staff involved in patient's care documentation, 16 Minutes HPI Consult Data Date of Consult: 01/07/25 HPI Narrative Reason for Consultation: Postop medical management HPI Narrative: ISA MAYEN, is a 64-year-old male history of diabetes, hypertension, chronic pain and depression presented to [facility] 01/07/25 for a right reverse total shoulder arthroplasty. Hospitalist consulted for postoperative medical management. Patient evaluated bedside. He reports overall his shoulder is feeling fairly well, no shortness of breath, no other new or acute complaints. Does have a diabetic foot ulcer that he reports is chronic, does wound care himself every day and said it slowly healing. [facility] Medical History Difficulty chewing Burn History of steroid therapy Wears glasses [...] mg tablet 10 mg PO DAILY 09/23/15 01/06/25 H istory hydrochlorothiazide 25 mg tablet 25 mg PO DAILY 09/23/15 01/06/25 H istory pregabalin 150 mg capsule (Lyrica) 150 mg PO .qd 09/23/15 01/05/25 History lisinopril 20 mg tablet 20 mg PO DAILY 10/07/20 01/06/25 H istory insulin aspart 10 unit subcut TID PRN for blood 0 05/28/22 04/16/24 History (niacinamide)(U-100) 100 unit/mL(3 sugar mL) subcutaneous pen (Fiasp FlexTouch U-100 Insulin) insulin glargine U-300 conc 300 20 unit subcut DAILY 12/14/2207/28 History unit/mL (1.5 mL) subcutaneous pen (Toujeo SoloStar U-300 Insulin) sennosides 8.6 mg-docusate sodium 2 tab PO BID PRN constipation 01/27 Unknown History 50 mg tablet (Stool Softener-Stimulant Laxative) tirzepatide 10 mg/0.5 mL 10 mg subcut STAPLETON 04/13/24 12/24/24 History subcutaneous pen injector (Tami) ondansetron 4 mg disintegrating 4 mg PO Q8H PRN nausea and 4 Unknown Rx tablet vomiting #14 tabs oxycodone-acetaminophen 10 mg-325 1 tab PO Q6H PRN pain 7 days #28 04/24/24 01/06/25 Rx mg tablet (Percocet) tabs sertraline 50 mg tablet 50 mg PO DAILY 12/10/24 01/06/25 H istory tizanidine 4 mg tablet 2 - 4 mg PO TID PRN PRN muscle 11/27 Unknown History spasm Allergy/AdvReac Type Severity Reaction Status Date / Time codeine Allergy Rash Verified 01/07/25 10:12 Family History Alyson (more content not included)... [facility] MR/POSTOP.ANEon 01-07-2025 MR/POSTOP.ANE [facility] Medical Records Department [address] [place] [address] Anesthesia Postop Eval I 01/07/25 1353 MR#: [id number] Acct: [id number] Name: ISA MAYEN Rep #: [id number] : 1960 64 From: Juanjo Recinos CRNA PCP: RICARDO ABRAHAM MD Status:REG SDC Y Race: C [place] [facility] Anesthesia: Postop Eval I Current Vital Signs Temperature: 97 F Pulse Rate: 62 Blood Pressure: 106/64 Respiratory Rate: 16 Pulse Ox: 92 Assessment Airway patent: Yes Spontaneous unlabored respirations: Yes nausea: No Vomiting: No Anesthesia Complication: No Fluid Hydration Crystalloid volume administer (ml): 1,500 Total IV fluid infused: 1,500 Progress Note Anesthesia document: Postop Eval 1 completed: Yes 01/07/25 1354 Date Juanjo Grisel PRINTED CIRCUIT BOARD PCB DRAFTSMAN Cosigner Signature: Date CC: Signed [facility] MR/[id number] 01-07-2025 MR/POSTOPAN2 [facility] Medical Records Department [address] [place] [address] Anesthesia Postop Eval II 01/07/25 1521 MR#: [id number] Acct: [id number] Name: ISA MAYEN Rep #: [id number] : 1960 64 From: Ish Chino CRNA PCP: RICARDO ABRAHAM MD Status:ADM RUDDY Y Race: C Location: [place] [id number] Anesthesia Postop Eval I Sum Postop Eval Completion status Anesthesia document: Postop Eval 1 completed: Yes Anesthesia Postop Eval I Summary Anesthesia Postop Eval I Summary: Anesthesia Postop Eval I: Assessment Summary Airway patent Yes 01/07/25 13:53 PRINTED CIRCUIT BOARD PCB DRAFTSMAN.TNES Spontaneous unlabored Yes 01/07/25 13:53 PRINTED CIRCUIT BOARD PCB DRAFTSMAN.TNES respirations Mental status nausea No 01/07/25 13:53 PRINTED CIRCUIT BOARD PCB DRAFTSMAN.TNES Vomiting No 01/07/25 13:53 PRINTED CIRCUIT BOARD PCB DRAFTSMAN.TNES Anesthesia Postop Eval I: Fluid Summary Crystalloid volume administer 1,500 01/07/25 13:53 PRINTED CIRCUIT BOARD PCB DRAFTSMAN.TNES (ml) Colloids volume administered ( ml) Blood Product volume administered (ml) Total IV fluid infused 1,500 01/07/25 13:53 PRINTED CIRCUIT BOARD PCB DRAFTSMAN.TNES Anesthesia Postop Eval I: Summary Notes Anesthesia Complication No 01/07/25 13:53 PRINTED CIRCUIT BOARD PCB DRAFTSMAN.TNES Anesthesia Complication Comment: Post-operative progress note Anesthesia: Postop Eval II Evaluation Mental status: Awake and Calm Pain Level: 2 nausea: No Vomiting: No Complications Anesthesia Complication: No 01/07/25 1521 Date Ish Chino PRINTED CIRCUIT BOARD PCB DRAFTSMAN Cosigner Signature: Date CC: Signed Normal [facility] Operative Reporton 5 Operative Report [facility] Medical Records Department [address] [place] [address] Operative Report 01/07/25 1327 MR#: [id number] Acct: [id number] Name: TIARRAISA A Rep #: [id number] : 1960 64 From: Miguelito Garcia DO PCP: RICARDO ABRAHAM MD Status:[facility] Location: [place] [address] Operative Report (Standard) Operative Information Date of Procedure: 01/07/25 Pre-Operative Diagnosis: Right shoulder rotator cuff tear arthropathy Post-Operative Diagnosis: Right shoulder rotator cuff tear arthropathy Surgery/Procedure Performed: Right reverse total shoulder arthroplasty emergency room clerk: Yes Food Cart Attendant: Dianne Walls Tasks completed by assistant curator: Opening closing, Implanting device, Hemostasis: Electrocautery and Retracting Additional interior design assistant?: No Type of Anesthesia: General/Regional RN Documented Start/Stop Times: Operation Date: 01/07/25 12:00 Case Time Into Pre-Op 01/07/25 09:41 Anesthesia Start 01/07/25 11:35 Into Room 01/07/25 11:35 Procedure Start 01/07/25 12:03 Procedure Start Time: 12:03 Procedure Stop Time: 13:34 Select all DRAINS/GRAFTS/IMPLANTS that apply: Implanted device Implanted device details: Tornier Aequalis PerFORM+ reversed baseplate 29 mm full wedge, standard glenosphere cobalt chrome 42 mm diameter, Tornier perform inlay stem size # 4, + 4 mm retentive size number 4 by 42 mm diameter polyethylene insert, short central post and peripheral screws x4. Estimated Blood Loss: 150 cc Specimen collected: No Description of surgery: Patient arrived to [facility] morning of the procedure and was greeted by the same day surgery staff. Prior to his procedure, I greeted the patient in the preoperative holding area I identified the patient by name, record number, and date of . Informed consent was confirmed. The operative extremity was marked. All questions were answered to patient satisfaction. An interscalene block was administered prior to procedure by anesthesia staff for postoperative and intraoperative analgesia. At time of his procedure, patient was brought to the operative suite and positioned supine on a standard table with a beachchair attachment. General anesthesia was induced after all bony prominences were well-padded. Endotracheal tube was placed. After adequate anesthesia and securing the tube, we prepared the patient to be positioned in the beachchair position. A well-padded head of design was applied. The nonoperative extremity was placed in a well arm serrano. He was then brought into the beachchair position after we confirmed an appropriate blood pressure. We then spun the bed 45 degrees. The operative extremity was then prepared. In the butterfly wing of the bed was removed and a well-padded torso strap was applied to secure the patient to the bed. The operative extremity was now free. We then prepped and draped the right upper extremity in normal, sterile orthopedic fashion. We then performed a timeout with all parties in attendance in agreement with the side, site, and operation be performed. 3 g Ancef was administered prior to incision by anesthesia staff, as well as 1 g TXA IV. No concerns were voiced and we elected to proceed. I first marked a standard deltopectoral incision just lateral to the coracoid process in line with the long axis of the humerus. Skin was sharply incised with 10 blade scalpel. I then dissected bluntly through the subcutaneous layers and found the fat stripe between the deltoid and pectoralis major. The cephalic vein was then identified and protected. It was retracted laterally with the deltoid. I then bluntly dissected underneath the deltoid with a Santiago elevator. Ly retractor was placed. The upper 1 cm of the pectoralis major was released. Biceps was completely ruptured. A remnant was identified at the supraglenoid tubercle. Subscapularis and supraspinatus were completely ruptured. Anterior capsule was partially intact. Anterior capsule was then tagged and released peeling up from the upper humerus. Humeral head was then dislocated anteriorly. Appropriate access to the humeral head was confirmed. I then subluxed the humeral head posteriorly with a Fukuda retractor placed around the posterior lip of the glenoid. Inferior capsule was tension. I was able to palpate the axillary nerve. Inferior capsule was then released to the 4 o'clock position of the glenoid face. I then remove the Fukuda retractor and redislocated the shoulder anteriorly. I then made a anatomic neck cut of the cartilaginous surface of the humeral head. Sizing plate for a size # 4 stem was utilized to determine appropriate reaming size. A central pin was placed engaging the lateral cortex of the humerus. A size #4 reamer was used to ream the humeral metaphysis and prepare for the inlay stem. A canal finding reamer was utilized prior to sequential (more content not included)... Normal [facility] Shoulder min 2 Viewson 01-07 Shoulder min 2 Views [facility] Imaging Services [address] [place], [place] [address] Shoulder min 2 Views MR#: [id number] Acct: [id number] Name: ISA MAYEN Rep #: [id number] : 1960 M 64 From: Sebastien Syed MD PCP: RICARDO ABRAHAM MD Status: REG [facility] Study: Shoulder min 2 Views Date of Exam: 01/07/25 Exam# [id number] Ordering Dr: Miguelito Garcia DO PROCEDURE: SHOULDER MIN 2 VIEWS 01/07/2025 REASON FOR EXAM: POST OP TECHNIQUE: Procedure Code: MATILDE Modality: DX Procedure: SHOULDER MIN 2 VIEWS Laterality: Right COMPARISON: October 18, 2023 FINDINGS: Bones: Interval placement of a reverse total shoulder arthroplasty. No hardware failure. No fracture. Joints: Anatomic alignment Soft tissues: Mild soft tissue gas is present that is not unexpected. RAD/Shoulder min 2 Views IMPRESSION: Expected postoperative appearance following shoulder arthroplasty. Reading Location: [id number] CC: Dr. Miguelito Garcia DO; RICARDO ABRAHAM MD Supplier Quality Specialist: Signed [facility] 12-31-2024 [facility] Office Visit (ENDMED ) ISA MAYEN ([id number]) 1960 M Date Time Provider Department 12/31/24 1:00 PM SHARLENE ESCOBAR During your visit today, we recorded the following information about you: Pulse Respiration Blood pressure Weight 63/minute 16/minute 100/71 125.1 kg Height 1.854 m Sharlene Escobar APRN.CNP 12/31/2024 3:32 PM Signed Reason for Consultation: DM Type 2 Referring Physician: SELF HISTORY OF PRESENT ILLNESS Mr. Mayen is a 64 year old male presenting here today for a follow up of DM Type 2. As I recall, he was initially diagnosed with diabetes 2008. 07/02/24 A1C today is 6.1 History of diabetes, hypertension, hyperlipidemia, microalbuminuria, retinopathy, peripheral neuropathy, obesity, carpal tunnel, amputation of left toe, right knee replacement. He had biopsy with carpal tunnel biopsy in 2023 appears to note amyloid deposits per message in Mychart from 02/04/24 from the ortho department. He no showed his appointment with Dr. Prabhakar in July. Had a fall slipping on wet carpet that had just been cleaned. Had rotator cuff tears in the right shoulder and will be having surgery on 01/07/25 Also burned his left index finger on bauer grease. This is healing Still dealing with ulcer on left foot. Brother of liver cancer. Another brother has leukemia Had testing and PET scan done and states it was ok. Down 73lb since 2022 He is under the care of pain management, ortho Current diabetes regimen is as follows: Mounjaro 10 mg weekly Tresiba 20 units daily in AM Novolog TID meals per SS Previous DM medications: metformin--tongue swelling Trulicity--ineffective; changed to ozempic Jardiance--precaution d/t foot ulcer Novolog 70/30-- ineffective Glipizide --started insulin Ozempic--short of breath he is checking his blood glucose continuously with Alonso 2 CGM he does bring a log book today for review. LDE Blood Sugar Frequency: CGM download (12/18/24 to 12/31/24 ) TIR 99% High 0% Very high 0% Low 1% Very low 0% Avg glucose 107 GMI 5.9 BG ranges 60's to 160 BG is overall stable all day. No significant spikes to BG with meals. Hypoglycemia frequency: occasionally Hypoglycemia awareness: [...] Drug use: No Allergies As of Date: 12/31/2024 Allergen Noted Reaction CODEINE 08/06/2008 Rash METFORMIN 04/05/2014 Other: See Comments SEASONAL ALLERGIES 02/06/2011 Other: See Comments Fully Assessed 12/31/2024 Current Outpatient Medications Medication Sig Dispense Refill insulin degludec (TRESIBA FLEXTOUCH U-100) 100 unit/mL (3 mL) injection pen Inject 20 Units subcutaneously every morning. 15 mL 11 insulin aspart U-100 (NOVOLOG FLEXPEN U-100 INSULIN) 100 unit/mL (3 mL) Inject subcutaneously TID meals per sliding scale up to 15 units daily. 15 mL 3 tirzepatide (MOUNJARO) 10 mg/0.5 mL pen injector Inject 10 mg subcutaneously one time a week. 6 mL 3 flash glucose sensor (FREESTYLE ALONSO 2 SENSOR) kit use as directed; one sensor every 14 days, IDDM, E11.42 6 Kit 3 lisinopril (ZESTR (more content not included)... Normal [facility] HEMOGLOBIN A1C (POC)on 12-31 HbA1c (Bld) [Mass fraction] 6.1 % Abnormal 4.3 - 5.6 % [facility] Comment on above: Location:[facility], [address] [place], [address] Point of care (POC) Hemoglobin A1c (HGBA1C) [...] specific diabetes management situations: The POC device gear tester provides a normal range of 4.2% to 6.5% for the HGBA1C POC test. However, the [place] [employer] guidelines indicate that patients with [...] Interpretation and review of laboratory results Abnormal [facility] MR/Dionicio 12-31-2024 [facility] [address] [place] [address] PAT - Anesthesia 12/31/24 1903 MR#: [id number] Acct: [id number] Name: ISA MAYEN Rep #: [id number] : 1960 64 From: Tony Garcia MD PCP: RICARDO ABRAHAM MD Status:PRE [facility] Y Race: C Location: [facility] Pre-Assessment Diagnosis/Proposed Procedure Planned Operative Procedure(s): (R) RIGHT REVERSE TOTAL SHOULDER ARTHROPLASTY, ERAS 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 - social insurance specialist: 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 - social insurance specialist Hx Hospitalization No 12/10/24 08:47 Any Problems With Anesthesia No 12/10/24 08:47 Cholinesterase deficiency No 12/10/24 08:47 You/Your Family Experience No 12/10/24 08:47 fever (hyperthermia) with Relationship Recent Exposure to Contagious No 04/17/24 11:59 Disease Does patient have nerve Yes 12/10/24 08:47 stimulator Patient instructed to have device shut off --Does patient have Pacemaker or ICD? When Was Last Pacemaker Check QUESTION #4 FULL TEXT: You/Your Family Experience fever (hyperthermia) with Anesthesia Last Oral Intake Last Oral intake: Last Oral Intake NPO since Meds taken in AM with sips of water? Meds patient instructed to take am of surgery PONV PONV - social insurance specialist: PONV - social insurance specialist Female No 12/10/24 08:47 HX of Motion Sickness No 12/10/24 08:47 HX of N/V After Surgery No 12/10/24 08:47 Non-Smoker No 12/10/24 08:47 Duration of Surgery greater Yes 12/10/24 08:47 than 60 minutes Number of Risk Factors 1 12/10/24 08:47 PONV Score Low Risk 12/10/24 08:47 Height Weight Height Weight: Anesthesia: Height Weight Height 6 ft 04/17/24 11:59 Respiratory Assessment Respiratory Assessment - social insurance specialist: Respiratory Tract Infection Hx - social insurance specialist Hx Respiratory Tract Infection No 12/10/24 08:47 STOP Sleep Apnea STOP Sleep Apnea - social insurance specialist: STOP Sleep Apnea - social insurance specialist Hx Hypertension Yes 12/10/24 08:47 Hx Sleep Apnea No 12/10/24 08:47 CPAP Yes 04/13/24 13:34 BIPAP No 04/13/24 13:34 Do you snore loudly (louder No 12/10/24 08:47 than talking or can be heard Do you often feel tired/ No 12/10/24 08:47 fatigued/ sleepy during daytime? Has anyone observed you stop No 12/10/24 08:47 breathing during sleep? STOP Results Negative 12/10/24 08:47 QUESTION #5 FULL TEXT : Do you snore loudly (louder than talking or can be heard through closed doors)? Tobacco Use History Tobacco Use History - social insurance specialist: Tobacco Use History - social insurance specialist Tobacco Use Smoking Status Current some day smoker 12/10/24 08:47 Hx Tobacco Use Yes 12/10/24 08:47 Years Smoking Packs Smoked per Day Smoking Cessation Date was within the last 15 years Hx Smoking Cessation Date Hx Smoking Cessation Yes 12/10/24 08:47 Counseling Hematologic Medial History Hematologic Hx - social insurance specialist: Hematologic Medical Hx - tenant coordinator Hx of Blood Transfusion No 12/10/24 08:47 Hx of Transfusion in last 3 No 12/10/24 08:47 Months Date of Last Transfusion (if within last 3 months) Ever experience any problems No 12/10/24 08:47 with transfusion(s)? Specify any problems Hx of Preganancy in last 3 N/A 12/10/24 08:47 Months Nurse Filling Out Transfusion ZEINA 12/10/24 08:47 Questions: Date: 12/10/24 12/10/24 08:47 Time: 08:48 12/10/24 08:47 Patient unable to answer at this time (ie. confused, unrespo /Reproduction History /Reproductive History - social insurance specialist: /Reproductive Hx- social insurance specialist Hx Now No 12/10/24 08:47 Gestational Age (in weeks): EDC: Hx Hx Para Hx Section SAB No 12/10/24 08:47 [facility] Medical History (Updated 12/10/24 @ 08:47 by Kayy Jackson) Difficulty chewing Burn History of steroid therapy Wears glasses [...] mg tablet 10 mg PO DAILY 09/23/15 12/12/24 H istory hydrochlorothiazide 25 mg tablet 25 mg PO DAILY 09/23/15 1224 H i (more content not included)... Normal [facility] MR/PATJerilyn 12-14-2024 MR/PAT.JOHN [facility] Medical Records Department [address] [place] [address] PAT - Anesthesia 12/14/24 1036 MR#: [id number] Acct: [id number] Name: ISA MAYEN Ankush Rep #: [id number] : 1960 64 From: Tony Garcia MD PCP: RICARDO ABRAHAM MD Status:PRE [facility] Y Race: C Location: [facility] Pre-Assessment Diagnosis/Proposed Procedure Planned Operative Procedure(s): (R) RIGHT REVERSE TOTAL SHOULDER ARTHROPLASTY, ERAS 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 - social insurance specialist: 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 - social insurance specialist Hx Hospitalization No 12/10/24 08:47 Any Problems With Anesthesia No 12/10/24 08:47 Cholinesterase deficiency No 12/10/24 08:47 You/Your Family Experience No 12/10/24 08:47 fever (hyperthermia) with Relationship Recent Exposure to Contagious No 04/17/24 11:59 Disease Does patient have nerve Yes 12/10/24 08:47 stimulator Patient instructed to have device shut off --Does patient have Pacemaker or ICD? When Was Last Pacemaker Check QUESTION #4 FULL TEXT: You/Your Family Experience fever (hyperthermia) with Anesthesia Last Oral Intake Last Oral intake: Last Oral Intake NPO since Meds taken in AM with sips of water? Meds patient instructed to take am of surgery PONV PONV - social insurance specialist: PONV - social insurance specialist Female No 12/10/24 08:47 HX of Motion Sickness No 12/10/24 08:47 HX of N/V After Surgery No 12/10/24 08:47 Non-Smoker No 12/10/24 08:47 Duration of Surgery greater Yes 12/10/24 08:47 than 60 minutes Number of Risk Factors 1 12/10/24 08:47 PONV Score Low Risk 12/10/24 08:47 Height Weight Height Weight: Anesthesia: Height Weight Height 6 ft 04/17/24 11:59 Respiratory Assessment Respiratory Assessment - social insurance specialist: Respiratory Tract Infection Hx - social insurance specialist Hx Respiratory Tract Infection No 12/10/24 08:47 STOP Sleep Apnea STOP Sleep Apnea - social insurance specialist: STOP Sleep Apnea - social insurance specialist Hx Hypertension Yes 12/10/24 08:47 Hx Sleep Apnea No 12/10/24 08:47 CPAP Yes 04/13/24 13:34 BIPAP No 04/13/24 13:34 Do you snore loudly (louder No 12/10/24 08:47 than talking or can be heard Do you often feel tired/ No 12/10/24 08:47 fatigued/ sleepy during daytime? Has anyone observed you stop No 12/10/24 08:47 breathing during sleep? STOP Results Negative 12/10/24 08:47 QUESTION #5 FULL TEXT : Do you snore loudly (louder than talking or can be heard through closed doors)? Tobacco Use History Tobacco Use History - social insurance specialist: Tobacco Use History - social insurance specialist Tobacco Use Smoking Status Current some day smoker 12/10/24 08:47 Hx Tobacco Use Yes 12/10/24 08:47 Years Smoking Packs Smoked per Day Smoking Cessation Date was within the last 15 years Hx Smoking Cessation Date Hx Smoking Cessation Yes 12/10/24 08:47 Counseling Hematologic Medial History Hematologic Hx - social insurance specialist: Hematologic Medical Hx - tenant coordinator Hx of Blood Transfusion No 12/10/24 08:47 Hx of Transfusion in last 3 No 12/10/24 08:47 Months Date of Last Transfusion (if within last 3 months) Ever experience any problems No 12/10/24 08:47 with transfusion(s)? Specify any problems Hx of Preganancy in last 3 N/A 12/10/24 08:47 Months Nurse Filling Out Transfusion JZOLLMACHELLE 12/10/24 08:47 Questions: Date: 12/10/24 12/10/24 08:47 Time: 08:48 12/10/24 08:47 Patient unable to answer at this time (ie. confused, unrespo /Reproduction History /Reproductive History - social insurance specialist: /Reproductive Hx- social insurance specialist Hx Now No 12/10/24 08:47 Gestational Age (in weeks): EDC: Hx Hx Para Hx Section SAB No 12/10/24 08:47 [facility] Medical History (Updated 12/10/24 @ 08:47 by Kayy Jackson) Difficulty chewing Burn History of steroid therapy Wears glasses [...] mg tablet 10 mg PO DAILY 09/23/15 1212/24 H istory hydrochlorothiazide 25 mg tablet 25 mg PO DAILY 09/23/1512/24 H i (more content not included)... Normal [facility] MRSA/SAID NASAL SCREENon MRSA+SAID SCRN Reason for Exam: PRE OP MRSA MRSA Negative S. AUREUS S. aureus Negative Normal [facility] Comment on above: Performed By: #### M 100.3000, M100.2000, M600.2000, M100.4001, M600.2200 #### [facility] [address] [place], [place], [id number] Absolute lymphocyte countOrd ered By: Miguelito Garcia on 12-11-2024 Lymphocytes Auto (Unsp spec) [#/Vol] 2.16 10*3/uL 0.83-4.51 [facility] Absolute neutrophil countOrd ered By: Miguelito Garcia on 12-11-2024 Neutrophils (Bld) [#/Vol] 11.1 10*3/uL High 2.0-7.7 [facility] Albumin, Serumon 12-11-2024 Albumin [Mass/Vol] 4.2 g/dL Normal 3.4-4.8 [facility] Comment on above: Performed By: #### M 100.651, L500.2500, L501.1800, L100.0100, L501.9985 #### [facility] [address] [facility] [place], [address] Automated lymphocyte count a s percentage of total leukocytesOrdered By: Miguelito Garcia on 12-11-2024 Lymphocytes/100 WBC Auto (Unsp spec) 15.1 % Low 19-41 [facility] Basic Metabolic Profile (BMP )on 12-11-2024 BUN/CRE 13.9 RATIO Normal 10-20 [facility] Comment on above: Performed By: #### M 100.651, L500.2500, L501.1800, L100.0100, L501.9985 #### [facility] [address] [facility] [place], [place], [id number] Calcium [Mass/Vol] 10.2 mg/dL Normal 7.6-11.0 [facility] Comment on above: Performed By: #### M 100.651, L500.2500, L501.1800, L100.0100, L501.9985 #### [facility] [address] [place], [address] Chloride [Moles/Vol] 102 mmol/L Normal 98-108 [facility] Comment on above: Performed By: #### M 100.651, L500.2500, L501.1800, L100.0100, L501.9985 #### [facility] [address] [place], [address] CO2 [Moles/Vol] 21.9 mmol/L Normal 21.0-32.0 [facility] Comment on above: Performed By: #### M 100.651, L500.2500, L501.1800, L100.0100, L501.9985 #### [facility] [address] [place], [address] Creatinine [Mass/Vol] 0.91 mg/dL Normal 0.70-1.20 [facility] Comment on above: Performed By: #### M 100.651, L500.2500, L501.1800, L100.0100, L501.9985 #### [facility] [address] [place], [address] GAP 15 Normal 5-15 [facility] Comment on above: Performed By: #### M 100.651, L500.2500, L501.1800, L100.0100, L501.9985 #### [facility] [address] [place], [address] GFR/1.73 sq M.predicted among non-blacks MDRD (S/P/Bld) [Vol rate/Area] 94 mL/min/{1.73_m2} Normal >60 [facility] Comment on above: Result Comment: mL/m in/1.73m2 CKD-EPI Creatinine Equation (2020) Performed By: #### M 100.651, L500.2500, L501.1800, L100.0100, L501.9985 #### [facility] [address] [place], [address] Glucose [Mass/Vol] 133 mg/dL High 70-99 [facility] Comment on above: Performed By: #### M 100.651, L500.2500, L501.1800, L100.0100, L501.9985 #### [facility] [address] [place], [address] Potassium [Moles/Vol] 4.1 mmol/L Normal 3.3-5.1 [facility] Comment on above: Performed By: #### M 100.651, L500.2500, L501.1800, L100.0100, L501.9985 #### [facility] [address] [place], [address] Sodium [Moles/Vol] 138 mmol/L Normal 133-145 [facility] Comment on above: Performed By: #### M 100.651, L500.2500, L501.1800, L100.0100, L501.9985 #### [facility] [address] [place], [address] Urea nitrogen [Mass/Vol] 13 mg/dL Normal 4-19 [facility] Comment on above: Performed By: #### M 100.651, L500.2500, L501.1800, L100.0100, L501.9985 #### [facility] [address] [place], [address] Basophil percentageOrdered B y: Miguelito Garcia on 12-11-2024 Basophils/100 WBC (Bld) 0.4 % 0-1 [facility] CBC W/Diff, Automatedon Absolute Lymph 2.16 X10 3/uL Normal 0.83-4.51 [facility] Comment on above: Performed By: #### M 100.651, L500.2500, L501.1800, L100.0100, L501.9985 #### [facility] [address] [place], [address] Absolute Neut 11.1 X10 3/uL High 2.0-7.7 [facility] Comment on above: Performed By: #### M 100.651, L500.2500, L501.1800, L100.0100, L501.9985 #### [facility] [address] [place], [address] Basophils/100 WBC (Bld) 0.4 % Normal 0-1 [facility] Comment on above: Performed By: #### M 100.651, L500.2500, L501.1800, L100.0100, L501.9985 #### [facility] [address] [place], [address] Eosinophils/100 WBC (Bld) 0.2 % Normal 0-5 [facility] Comment on above: Performed By: #### M 100.651, L500.2500, L501.1800, L100.0100, L501.9985 #### [facility] [address] [place], [address] Erythrocyte distribution width (RBC) [Ratio] 13.3 % Normal 11.6-14.6 [facility] Comment on above: Performed By: #### M 100.651, L500.2500, L501.1800, L100.0100, L501.9985 #### [facility] [address] [place], [address] Hematocrit (Bld) [Volume fraction] 40.7 % Normal 40-54 [facility] Comment on above: Performed By: #### M 100.651, L500.2500, L501.1800, L100.0100, L501.9985 #### [facility] [address] [place], [address] Hemoglobin (Bld) [Mass/Vol] 14.0 g/dL Normal 13.0-16.5 [facility] Comment on above: Performed By: #### M 100.651, L500.2500, L501.1800, L100.0100, L501.9985 #### [facility] [address] [place], [address] IG% 0.600 Normal 0.0-0.9 [facility] Comment on above: Result Comment: IG% - Immature Granulocytes (promyelocytes, myelocytes and metamyelocytes) > 1% indicates that a LEFT SHIFT is Present. Performed By: #### M 100.651, L500.2500, L501.1800, L100.0100, L501.9985 #### [facility] [address] [place], [address] Lymphocytes/100 WBC (Bld) 15.1 % Low 19-41 [facility] Comment on above: Performed By: #### M 100.651, L500.2500, L501.1800, L100.0100, L501.9985 #### [facility] [address] [place], [address] MCH (RBC) [Entitic mass] 28.7 pg Normal 27.0-32.0 [facility] Comment on above: Performed By: #### M 100.651, L500.2500, L501.1800, L100.0100, L501.9985 #### [facility] [address] [place], [address] MCHC (RBC) [Mass/Vol] 34.4 g/dL Normal 32-36 [facility] Comment on above: Performed By: #### M 100.651, L500.2500, L501.1800, L100.0100, L501.9985 #### [facility] [address] [place], [address] MCV (RBC) [Entitic vol] 83.6 fL Normal 80-94 [facility] Comment on above: Performed By: #### M 100.651, L500.2500, L501.1800, L100.0100, L501.9985 #### [facility] [address] [place], [address] Monocytes/100 WBC (Bld) 6.4 % Normal 0-10 [facility] Comment on above: Performed By: #### M 100.651, L500.2500, L501.1800, L100.0100, L501.9985 #### [facility] [address] [place], [address] Neutrophils/100 WBC (Bld) 77.3 % High 47-70 [facility] Comment on above: Performed By: #### M 100.651, L500.2500, L501.1800, L100.0100, L501.9985 #### [facility] [address] [place], [address] Nucleated RBC (Bld) [#/Vol] 0 10*3/uL Normal 0-5 [facility] Comment on above: Performed By: #### M 100.651, L500.2500, L501.1800, L100.0100, L501.9985 #### [facility] [address] [place], [address] Platelet mean volume (Bld) [Entitic vol] 10.7 fL Normal 6.2-12.0 [facility] Comment on above: Performed By: #### M 100.651, L500.2500, L501.1800, L100.0100, L501.9985 #### [facility] [address] [place], [address] Platelets (Bld) [#/Vol] 223 10*3/uL Normal 150-450 [facility] Comment on above: Performed By: #### M 100.651, L500.2500, L501.1800, L100.0100, L501.9985 #### [facility] [address] [place], [address] RBC (Bld) [#/Vol] 4.87 10*6/uL Normal 4.6-6.2 [facility] Comment on above: Performed By: #### M 100.651, L500.2500, L501.1800, L100.0100, L501.9985 #### [facility] [address] [place], [address] RDW SD 41.1 fl Normal 35.1-43.9 [facility] Comment on above: Performed By: #### M 100.651, L500.2500, L501.1800, L100.0100, L501.9985 #### [facility] [address] [place], [address] WBC (Bld) [#/Vol] 14.3 10*3/uL High 4.4-11.0 [facility] Comment on above: Performed By: #### M 100.651, L500.2500, L501.1800, L100.0100, L501.9985 #### [facility] [address] [place], [address] Eosinophil percentageOrdered By: Miguelito Garcia on 12-11-2024 Eosinophils/100 WBC (Bld) 0.2 % 0-5 [facility] Extremity Upper without Cont raon 12-11-2024 Extremity Upper without Contra [facility] [address] [place] [address] Extremity Upper without Contra MR#: [id number] Acct: [id number] Name: ISA MAYEN Rep #: [id number] : 1960 M 64 From: Meredith Zamora PCP: RICARDO ABRAHAM MD Status: REG CLI Study: Extremity Upper without Contra Date of Exam: 0 12/11/24 Exam# [id number] Ordering Dr: Miguelito Garcia DO PROCEDURE: EXTREMITY UPPER WITHOUT CONTRA 12/11/2024 REASON FOR EXAM: SHOULDER PAIN, right. Four prior right shoulder surgeries. TECHNIQUE: EXTREMITY UPPER WITHOUT CONTRA Coronal and Sagittal reconstruction series were provided. One or more dose reduction techniques were used (e.g., Automated exposure control, adjustment of the mA and/or kV according to patient size, use of iterative reconstruction technique. RADIATION DOSE SUMMARY: CTDlvol: 49.65 mGy DLP: 1339.80 mGycm COMPARISON: Right shoulder MRI of 11/24/2024. FINDINGS: Widening of the right glenohumeral space is seen, most probably due to persistence of the previously described joint effusion. Stable degenerative changes of the right acromioclavicular and glenohumeral joints, including irregularity about the right humeral head greater tuberosity. Stable osseous alignment is seen. No fracture or dislocation is evident. CT/Extremity Upper without Contra IMPRESSION: 1. Stable degenerative changes. 2. No fracture or dislocation is seen. 3. Additional findings as noted. Reading Location: [place] [address] CC: Dr. Miguelito Garcia DO; RICARDO ABRAHAM MD Supplier Quality Specialist: Signed Normal [facility] Hemoglobin A1con 12-11-2024 HbA1c (Bld) [Mass fraction] 6.2 % High <=5.6 [facility] Comment on above: Result Comment: Norm al < 5.7 % Prediabetic 5.7 - 6.4 % Diabetic >or= 6.5 % Please note range changes. Performed By: #### M 100.651, L500.2500, L501.1800, L100.0100, L501.9985 #### [facility] [address] [place], [address] Hemoglobin A1c percentageOrd ered By: Miguelito Garcia on 12-11-2024 HbA1c (Bld) [Mass fraction] 6.2 % High <5.7 [facility] Comment on above: Normal < 5.7 % Predi abetic 5.7 - 6.4 % Diabetic >or= 6.5 % Please note range changes. Immature granulocytes/100 WB C Auto (Bld)Ordered By: Miguelito Garcia on 12-11-2024 Immature granulocytes/100 WBC (Bld) 0.600 % 0.0-0.9 [facility] Comment on above: IG% - Immature Granu locytes (promyelocytes, myelocytes and metamyelocytes) > 1% indicates that a LEFT SHIFT is Present. MRSA screenOrdered By: Jose Garcia on 12-11-2024 MRSA DNA REJI+probe Ql (Unsp spec) [facility] Magnesiumon 12-11-2024 Magnesium [Mass/Vol] 2.1 mg/dL Normal 1.5-2.2 [facility] Comment on above: Performed By: #### M 100.3000, M100.2000, M600.2000, M100.4001, M600.2200 #### [facility] [address] [place], [address] Magnesium measurement (mass/ volume)Ordered By: Kevin George on 12-11-2024 Magnesium (Unsp spec) [Mass/Vol] 2.1 mg/dL 1.5-2.2 [facility] Monocyte percentageOrdered B y: Miguelito Garcia on 12-11-2024 Monocytes/100 WBC (Bld) 6.4 % 0-10 [facility] Neutrophil percentageOrdered By: Miguelito Garcia on 12-11-2024 Neutrophils/100 WBC (Bld) 77.3 % High 47-70 [facility] Nucleated red blood cell per centageOrdered By: Miguelito Garcia on 12-11-2024 Nucleated RBC/100 WBC (Bld) [Ratio] 0 % 0-5 [facility] Serum or plasma albumin camelia urement (mass/volume)Ordered By: Miugelito Garcia on 12-11-2024 Albumin [Mass/Vol] 4.2 g/dL 3.4-4.8 [facility] Magnetic resonance imaging r eportOrdered By: Gurjit Casas on 11-24-2024 Study report [facility] [address] [place] [address] Upper Ext Joint Only(Routine) MR#: [id number] Acct: [id number] Name: ISA MAYEN Rep #: [id number] : 1960 M 64 From: [place] aCsas MD PCP: RICARDO ABRAHAM MD Status: REG CLI Study:Upper Ext Joint Only(Routine) Date of Exam: 11/24/24 Exam# [id number] Ordering Dr: Edu Haynes PA-C PROCEDURE: UPPER EXT JOINT ONLY(ROUTINE) 11/24/2024 REASON FOR EXAM: SHOULDER PAIN RT BICEP INJURY TECHNIQUE: UPPER EXT JOINT ONLY(ROUTINE) Multiplanar and multisequence images were obtained without IV contrast administration. COMPARISON: None FINDINGS: Bone Marrow: Subcortical cyst formation is noted in the humeral head. There is no occult fracture. There are multiple corticated osteochondral fragments in the joint space with the largest measuring0.9 cm in the posterior joint space, and 0.8 cm in the superior joint space. AC joint: The AC joint is widened to 1.6 cm, without subluxation, type 2 separation. There is a type 3 acromion with impingement configuration. Rotator cuff: There is moderate supraspinatus muscular atrophy, severe subscapularis and infraspinatus muscular atrophy. There is a full-thickness, full width tear of the supraspinatus with 4.4 cm of retraction. There is a full-thickness, full width tear of the infraspinatus with 3.3 cm of retraction. There is a full-thickness, full-thickness tear of the subscapularis, with 1.5 cm of retraction. Labrum: There is a tear of the labrum from the 10 o'clock-2 o'clock position, including the biceps tendon anchor. Biceps tendon: There is severe tendinopathy of the proximal portion in the intra-articular portion of the biceps tendon without full-thickness tear or retraction. There is a large joint effusion which extends in the subacromial subdeltoid bursa. MRI/Upper Ext Joint Only(Routine) IMPRESSION: Subcortical cyst formation is noted in the humeral head. There are multiple corticated osteochondral fragments in the joint space with the largest measuring 0.9 cm in the posterior joint space, and 0.8 cm in the superior joint space. The AC joint is widened to 1.6 cm, without subluxation, type 2 separation. There is a type 3 acromion with impingement configuration. There is moderate supraspinatus muscular atrophy, severe subscapularis and infraspinatus muscular atrophy. There is a full-thickness, full width tear of the supraspinatus with 4.4 cm of retraction. There is a full-thickness, full width tear of the infraspinatus with 3.3 cm of retraction. There is a full-thickness, full-thickness tear of the subscapularis, with 1.5 cmof retraction. There is a tear of the labrum from the 10 o'clock-2 o'clock position, including the biceps tendon anchor. There is severe tendinopathy of the proximal portion in the intra-articular portion of the biceps tendon without full-thickness tear or retraction. There is a large joint effusion which extends in the subacromial subdeltoid bursa. Reading Location: [email or web address] CC: MALLORIE Haynes; RICARDO ABRAHAM MD ~ Supplier Quality Specialist: Signed [facility] Upper Ext Joint Only(Routine )on 11-24-2024 Upper Ext Joint Only(Routine) [facility] [address] [place] [address] Upper Ext Joint Only(Routine) MR#: [id number] Acct: [id number] Name: ISA AMYEN Rep #: [id number] : 1960 64 From: Gurjit Casas MD PCP: RICARDO ABRAHAM MD Status: REG CLI Study: Upper Ext Joint Only(Routine) Date of Exam: 0 11/24/24 Exam# [id number] Ordering Dr: Edu Haynes PA-C PROCEDURE: UPPER EXT JOINT ONLY(ROUTINE) 11/24/2024 REASON FOR EXAM: SHOULDER PAIN RT BICEP INJURY TECHNIQUE: UPPER EXT JOINT ONLY(ROUTINE) Multiplanar and multisequence images were obtained without IV contrast administration. COMPARISON: None FINDINGS: Bone Marrow: Subcortical cyst formation is noted in the humeral head. There is no occult fracture. There are multiple corticated osteochondral fragments in the joint space with the largest measuring 0.9 cm in the posterior joint space, and 0.8 cm in the superior joint space. AC joint: The AC joint is widened to 1.6 cm, without subluxation, type 2 separation. There is a type 3 acromion with impingement configuration. Rotator cuff: There is moderate supraspinatus muscular atrophy, severe subscapularis and infraspinatus muscular atrophy. There is a full-thickness, full width tear of the supraspinatus with 4.4 cm of retraction. There is a full-thickness, full width tear of the infraspinatus with 3.3 cm of retraction. There is a full-thickness, full-thickness tear of the subscapularis, with 1.5 cm of retraction. Labrum: There is a tear of the labrum from the 10 o'clock-2 o'clock position, including the biceps tendon anchor. Biceps tendon: There is severe tendinopathy of the proximal portion in the intra-articular portion of the biceps tendon without full-thickness tear or retraction. There is a large joint effusion which extends in the subacromial subdeltoid bursa. MRI/Upper Ext Joint Only(Routine) IMPRESSION: Subcortical cyst formation is noted in the humeral head. There are multiple corticated osteochondral fragments in the joint space with the largest measuring 0.9 cm in the posterior joint space, and 0.8 cm in the superior joint space. The AC joint is widened to 1.6 cm, without subluxation, type 2 separation. There is a type 3 acromion with impingement configuration. There is moderate supraspinatus muscular atrophy, severe subscapularis and infraspinatus muscular atrophy. There is a full-thickness, full width tear of the supraspinatus with 4.4 cm of retraction. There is a full-thickness, full width tear of the infraspinatus with 3.3 cm of retraction. There is a full-thickness, full-thickness tear of the subscapularis, with 1.5 cm of retraction. There is a tear of the labrum from the 10 o'clock-2 o'clock position, including the biceps tendon anchor. There is severe tendinopathy of the proximal portion in the intra-articular portion of the biceps tendon without full-thickness tear or retraction. There is a large joint effusion which extends in the subacromial subdeltoid bursa. Reading Location: [email or web address] CC: MALLORIE Haynes; RICARDO ABRAHAM MD Supplier Quality Specialist: Signed [facility] 07-30-2024 [facility] Telephone (ENDMED) ISA MAYEN ([id number]) 1960 M Date Time Provider Department 07/30/24 SHARLENE ESCOBAR During your visit today, we recorded the following information about you: Naty Sen MA 07/30/2024 1:43 PM Signed Received a request for office notes from [facility] Notes from: 07/02/2024 Faxed via [employer] at [phone] Transmission Successful. Allergies As of Date: 07/30/2024 Noted Allergy Reaction CODEINE 08/06/2008 2 - Rash Comments: RASH METFORMIN 04/05/2014 14 - Other: See Comments Comments: Tongue swelling SEASONAL ALLERGIES 02/06/2011 14 - Other: See Comments Comments: Watery eyes, stuffy nose, sneezing Date Reviewed: 07/02/2024 Reviewed by: Sharlene Escobar APRN.BALLING HEAD TENDER - Fully Assessed Reason for Visit: Office Notes [Other] Cmt: [facility] Prescriptions as of 07/30/2024 - insulin degludec [...] capsule by mouth three times daily. - Dqyrqoza-Qumkvylyv-Xxnttqa HMB (KIRK) 7-7-1.5 gram pwpk Take 1 Each by mouth once daily. - amLODIPine-benazepril (LOTREL) 5-20 mg per capsule - HYDROCHLOROTHIAZIDE 25 MG TAB Take one(1) tablet daily. Problem List As Of Date 07/30/2024 Noted Resolved Essential hypertension [I10] 08/13/2005 OPEN WOUND FINGER W TENDON [S61.209A] 08/13/2005 INJURY DIGITAL NERVE [LKC0157] 08/13/2005 TRIGGER FINGER [M65.30] 08/13/2005 INJURY FINGER [...] Encounter Status:Closed by NATY SEN on 07/30/24 [facility] ([id number]) 1960 M Date Time Provider Department 07/10/24 SHARLENE ESCOBAR During your visit today, we recorded the following information about you: Yanet Karimi RN 07/10/2024 12:31 PM Signed Received notification from [facility] that they no longer cover Insulin Glargine [...] Date Reviewed: 07/02/2024 Reviewed by: Sharlene Escobar APRN.BALLING HEAD TENDER - Fully Assessed Reason for Visit: Medication [...] capsule by mouth three times daily. - Kukqjejn-Mdomuundy-Xeuuuar HMB (KIRK) 7-7-1.5 gram pwpk Take 1 Each by mouth once daily. - amLODIPine-benazepril (LOTREL) 5-20 mg per capsule - HYDROCHLOROTHIAZIDE 25 MG TAB Take one(1) tablet daily. Problem List As Of Date 07/10/2024 Noted Resolved Essential hypertension [I10] 08/13/2005 OPEN WOUND FINGER W TENDON [S61.209A] 08/13/2005 INJURY DIGITAL NERVE [[id number]] 08/13/2005 TRIGGER FINGER [M65.30] 08/13/2005 INJURY FINGER [...] Encounter Status:Closed by SHARLENE ESCOBAR on 07/10/24 [facility] 07-07-2024 [facility] Telephone (JOHNSON) TIARRAISA ([id number]) 1960 M Date Time Provider Department 07/07/24 SHARLENE ESCOBAR During your visit today, we recorded the following information about you: Yanet Karimi RN 07/07/2024 11:55 AM Signed EDU MAYEN (Fried: [id number]) KEVIN Rx #: [id number] Need Help? Call us at Status Sent to Plan today Drug FreeStyle Alonso 2 Sensor Form [employer] Electronic Prior Authorization Request Form (2016 [facility]) Original Claim Info A6 Please abandon this request. This is for a medical supply covered under Part B and member does not have Part B coverage with us Patient notified via Somewhere. Closed Allergies As of Date: 07/07/2024 Noted Allergy Reaction CODEINE 08/06/2008 2 - Rash Comments: RASH METFORMIN 04/05/2014 14 - Other: See Comments Comments: Tongue swelling SEASONAL ALLERGIES 02/06/2011 14 - Other: See Comments Comments: Watery eyes, stuffy nose, sneezing Date Reviewed: 07/02/2024 Reviewed by: Sharlene Escobar APRN.BALLING HEAD TENDER - Fully Assessed Reason for Visit: PA--FreeStyle [...] capsule by mouth three times daily. - Kecckdww-Vmfzzfgmw-Xytxfdp HMB (KIRK) 7-7-1.5 gram pwpk Take 1 Each by mouth once daily. - amLODIPine-benazepril (LOTREL) 5-20 mg per capsule - HYDROCHLOROTHIAZIDE 25 MG TAB Take one(1) tablet daily. Problem List As Of Date 07/07/2024 Noted Resolved Essential hypertension [I10] 08/13/2005 OPEN WOUND FINGER W TENDON [S61.209A] 08/13/2005 INJURY DIGITAL NERVE [NHL2207] 08/13/2005 TRIGGER FINGER [M65.30] 08/13/2005 INJURY FINGER [...] Encounter Status:Closed by YANET KARIMI on 07/07/24 [facility]20[facility] IS[facility] ([id number]) 1960 M Date Time Provider Department 07/03/24 [...] attachment was sent by alternative means. Payer: [facility] [phone] Attachment: The attachment was sent by alternative means. [email or web address] Case: [id number] Question Answer Is the request for Expedited [...] PM Message source: PBM Close reason: The community health coordinator is not the PA processor for this patient and medication combination. Note from payer: [facility] does not manage prior authorizations for this patient. Please resubmit the ePA request to K[facility]ik. Payer: [facility] [phone] Waiting for Payer Response 07/02/2024 1:34 PM Sending user: Sharlene Escobar APRN.CNP Payer: [facility] [facility] [phone] Faxed last office notes to [facility]. Transmission OK Will await approval/denial Yanet Karimi RN 07/03/2024 4:26 PM Signed Approved Prior authorization approved Payer: [facility] Note from payer: Approved. This drug has [...] to its destination. To be filled at: [phone] [place] [address] [address] [facility] [phone] Pharmacy Benefits Open Encounter ISA MAYEN - 2024 Community Cash PDP Retail Super ID ([employer]) Covered: Retail, Mail Order Unknown: Specialty, Long-Term Care BIN: [id number] : 1960 Group ID: [id number] PCN: [id number] Legal sex: M Group name: MYRA [id number] PDP [id number] Address: [address] [place] [address] Closed Allergies As of Date: 07/03/2024 Noted Allergy Reaction CODEINE 08/06/2008 2 - Rash Comments: RASH METFORMIN 04/05/2014 14 - Other: See Comments Comments: Tongue swelling SEASONAL ALLERGIES 02/06/2011 14 - Other: See Comments Comments: Watery eyes, stuffy nose, sneezing Date Reviewed: 07/02/2024 Reviewed by: Sharlene Escobar APRN.BALLING HEAD TENDER - Fully Assessed Reason for Visit: PA--Mounjaro [...] 3x pe (more content not included)... Normal [facility] CNOVon 07-02-2024 CNOV Office Visit (ENDMED ) ISA MAYEN ([id number]) 1960 M Date Time Provider Department 07/02/24 1:00 PM SHARLENE ESCOBAR During your visit today, we recorded the following information about you: Pulse Blood pressure Weight 77/minute 144/81 130 kg Sharlene Escobar, DANN.BALLING HEAD TENDER 07/02/2024 2:20 PM Signed Reason for Consultation: [...] units daily (more content not included)... Normal [facility] HEMOGLOBIN A1C (POC)on 07-02 HbA1c (Bld) [Mass fraction] 5.9 % Abnormal 4.3 - 5.6 % [facility] Comment on above: Location:[facility], [address] [place] [address], [address] Point of care (POC) Hemoglobin A1c (HGBA1C) [...] specific diabetes management situations: The POC device gear tester provides a normal range of 4.2% to 6.5% for the HGBA1C POC test. However, the [place] Diabetes Association guidelines indicate that patients with [...] Interpretation and review of laboratory results Abnormal [facility] Culture, Fungus 8482on 05-20 CUF Comments: Collected in OR - Left Phalanx Is this test to exclude patient from TB Isolation? N _ TESTING PERFORMED AT [facility]. ORIGINAL REPORT ON FILE IN LAB CONTAINS ADDITIONAL TEST SITE INFORMATION. _ CUF No yeast or mold isolated after 4 weeks. [facility] Comment on above: Performed By: #### M 100.3000, M100.1999, M600.1999, M100.4001, M600.2200 #### [facility] [place], [address] Fungus Stain 8136on 05-20-19 FUNST Comments: Collected in OR - Left Phalanx Is this test to exclude patient from TB Isolation? N _ [facility] ORIGINAL REPORT ON FILE IN LAB CONTAINS ADDITIONAL TEST SITE INFORMATION. _ Fungus Stain No fungus observed. [facility] Comment on above: Performed By: #### M 100.3000, M100.1999, M600.1999, M100.4001, M600.0 #### [facility] [address] [place], [address] Culture, Anaerobic Any Sourc rosalind 04-21-2024 CUAN UNK UNK Collected in OR - Left Phalanx No anaerobic bacteria isolated. Normal [facility] Comment on above: Performed By: #### M 100.3000, M100.1999, M600.1999, M100.4001, M600.0 #### [facility] [address] [place], [address] Gram Stainon 04-19-2024 GS UNK UNK Collected in OR - Left Phalanx Gram Stain No organisms seen No cells seen Normal [facility] Comment on above: Performed By: #### M 100.3000, M100.1999, M600.1999, M100.400, M600.0 #### [facility] [address] [place], [address] Wound Cultureon 04-19-2024 WC UNK UNK Collected [...] S Vancomycin Islt ISHA 1 S Normal [facility] Comment on above: Performed By: #### M 100.3000, M100.1999, M600.1999, M100.4001, M600.2200 #### [facility] [address] [place], [address] Bedside Glucoseon 04-17-2024 FINGERSTICK GLU 102 mg/dL Normal 74-106 [facility] Comment on above: Result Comment: VI FERRERA OF PATIENT CARE PER NURSING PROTOCOL Performed By: #### M 100.3000, M100.2000, M600.2000, M100.4001, M600.2200 #### [facility] Sasha [address] [place], [place], [address] Decalcification bone/plaqueo n 04-17-2024 Decalcification bone/plaque -------- Patient Age/Sex Location Account Attending Physician -------- ISA MAYEN 63/[facility] [id number] Dr. Mario Yun DPM -------- Specimen: [id number] Received: 04/17/24 Status: SHAKA Banerjee Num: [id number] Spec Type: Amputation Subm Dr: Dr. Mario Yun, JULIO HEADER OPERATION: Left hallux amputation PRE-OP DIAGNOSIS: Amputation TISSUE SUBMITTED: Left phalanx -------- MICROSCOPIC DIAGNOSIS Left hallux, amputation: Focal ulceration, acute and chronic inflammation and granulation tissue reaction. Bone with minimal chronic inflammation and reactive changes, negative for acute osteomyelitis. [facility] 04/23/2024 MICROSCOPIC DESCRIPTION Slides are reviewed. GROSS DESCRIPTION Received in fixative is one container labeled with the patient's name and designated Left phalanx. The specimen consists of a portion of toe measuring 7.0 x 3.5 x 2.5cm. The skin surface shows ulceration on the plantar surface of the toe measuring 1.5 x 1.5cm. Nail is present and appears unremarkable. Deputy Director Of Finance sections are submitted in three cassettes as follows: 1- ulcerated area, 2 3- bone after decalcification. . 04/20/2024 TC:2 [facility]:[id number] -------- Patient Age/Sex Location Account Attending Physician -------- ISA MAYEN 63/M [facility] [id number] Dr. Mario Yun DPM -------- Signed (signature on file) Dr. Juvencio Pike MD 04/23/24 1422 -------- Normal [facility] Comment on above: Performed By: #### M 100.3000, M100.2000, M600.2000, M100.4001, M600.2200 #### [facility] [address] [place], [address] MR/POSTOP.[facility] 04-17-2024 MR/POSTOP.[facility] Medical Records Department [address] [place] [address] Anesthesia Postop Eval I 04/17/241720 MR#: [id number] Acct: [id number] Name: ISA MAYEN Rep #: [id number] : 1960 63 From: Franklin Peck CRNA PCP: RICARDO ABRAHAM MD Status:REG SDC Y Race: C Location: [place] [address] Anesthesia: Postop Eval I Current Vital Signs [...] 1 completed: Yes 04/17/241720 Date Franklin Peck PRINTED CIRCUIT BOARD PCB DRAFTSMAN Cosigner Signature: Date CC: Signed Normal [facility] MR/[id number] 04-17-2024 MR/POSTOPAN2 [facility] Medical Records Department [address] [place] [address] Anesthesia Postop Eval II 04/17/241725 MR#: [id number] Acct: [id number] Name: ISA MAYEN Rep #: [id number] : 1960 63 From: Angelito Bailey MD PCP: RICARDO ABRAHAM MD Status:REG SDC Y Race: C Location: [place] [address] Anesthesia Postop Eval I Sum Postop Eval Completion status Anesthesia document: Postop Eval 1 completed: Yes Anesthesia Postop Eval I Summary Anesthesia Postop Eval I Summary: Anesthesia Postop Eval I: Assessment Summary Airway patent Yes 04/17/24 17:21 PRINTED CIRCUIT BOARD PCB DRAFTSMAN.JBLOU Spontaneous unlabored Yes 04/17/24 17:21 PRINTED CIRCUIT BOARD PCB DRAFTSMAN.JBLOU respirations Mental status Awake,Calm 04/17/24 17:21 PRINTED CIRCUIT BOARD PCB DRAFTSMAN.JBLOU nausea No 04/17/24 17:21 PRINTED CIRCUIT BOARD PCB DRAFTSMAN.JBLOU Vomiting No 04/17/24 17:21 PRINTED CIRCUIT BOARD PCB DRAFTSMAN.JBLOU Anesthesia Postop Eval I: Fluid Summary Crystalloid volume administer 50 04/17/24 17:21 PRINTED CIRCUIT BOARD PCB DRAFTSMAN.JBLOU (ml) Colloids volume administered ( ml) Blood Product volume administered (ml) Total IV fluid infused 50 04/17/24 17:21 PRINTED CIRCUIT BOARD PCB DRAFTSMAN.JBLOU Anesthesia Postop Eval I: Summary Notes Anesthesia Complication No 04/17/24 17:21 PRINTED CIRCUIT BOARD PCB DRAFTSMAN.JBLOU Anesthesia Complication Comment: Post-operative progress note Anesthesia: Postop Eval II Evaluation Mental status: Awake Pain Level: 0 nausea: No Vomiting: No 04/17/241725 Date Angelito Dietz Signature: Date CC: Signed Normal [facility] Operative Reporton 4 Operative Report [facility] Medical Records Department [address] [place] [address] Operative Report 04/17/24 1724 MR#: [id number] Acct: [id number] Name: ISA MAYEN Rep #: [id number] : 1960 63 From: Mario Yun DPM PCP: RICARDO ABRAHAM MD Status:REG [facility] Location: [place] [address] Problems Associated Problem List Diagnoses (1) Non-pressure [...] advacement flap left hallux for defect coverage emergency room clerk: Yes Food Cart Attendant: nate garcia Tasks completed by assistant curator: Opening, Closing, Altering tissue and Hemostasis: Tie [...] CC: JULIO Yun; RICARDO ABRAHAM MD Signed [facility] MR/PAT.[facility] 04-13-2024 MR/PAT.[facility] Medical Records Department [address] [place] [address] PAT - Anesthesia 04/13/24 1524 MR#: [id number] Acct: [id number] Name: ISA MAYEN Rep #: [id number] : 1960 63 From: Tony Garcia MD PCP: RICARDO ABRAHAM MD Status:PRE [facility] Y Race: C Location: [facility] PAT status Pat Assessment PAT Assessment: PAT Anesthesia Results to Eval 04/13/24 14:48 Pre-Assessment Diagnosis/Proposed Procedure Planned Operative Procedure(s): LEFT HALLUX AMPUTATION 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 - social insurance specialist: 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 - social insurance specialist Hx Hospitalization No 04/13/24 13:34 Any Problems [...] take am of surgery PONV PONV - social insurance specialist: PONV - social insurance specialist Female No 04/13/24 13:34 HX of Motion Sickness No 04/13/24 13:34 HX of N/V After Surgery No 04/13/24 13:34 Non-Smoker Yes 04/13/24 13:34 Duration of Surgery greater Yes 04/13/24 13:34 than 60 minutes Number of Risk Factors 2 04/13/24 13:34 PONV Score Moderate Risk 04/13/24 13:34 Height Weight Height Weight: Anesthesia: Height Weight Height 6 ft 07/17/23 16:23 Respiratory Assessment Respiratory Assessment - social insurance specialist: Respiratory Tract Infection Hx - social insurance specialist Hx Respiratory Tract Infection No 04/13/24 13:34 STOP Sleep Apnea STOP Sleep Apnea - social insurance specialist: STOP Sleep Apnea - social insurance specialist Hx Hypertension Yes: CONTROLLED WITH MED 04/13/24 [...] Tobacco Use History Tobacco Use History - social insurance specialist: Tobacco Use History - social insurance specialist Tobacco Use Smoking Status Current some day smoker 04/13/24 13:34 Hx Tobacco Use Yes 04/13/24 13:34 Years Smoking Packs Smoked per Day Smoking Cessation Date was within the last 15 years Hx Smoking Cessation Date Hx Smoking Cessation Yes 04/13/24 13:34 Counseling Hematologic Medial History Hematologic Hx - social insurance specialist: 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 [facility] 04-09-2024 [facility] Telephone (Lunagames) ISA MAYEN ([id number]) 1960 M Date Time Provider Department 04/09/[facility] During your visit today, we recorded the following information about you: Yanet Karimi RN 04/09/2024 12:02 PM Signed EDU MAYEN (Fried: [id number]) KEVIN Rx #: [id number] Need Help? Call us at Status sent iconSent to Plan today Drug FreeStyle Alonso 2 Sensor ePA cloud logo Form [employer] Medicare Part D Electronic Prior Authorization Form (2016 NCPDP) Original Claim Info 70 Bill Medicare B Plan Exclusion Faxed last office notes to [employer]. Will await approval/denial Yanet Karimi RN 04/13/2024 11:55 AM Signed EDU MAYEN (Fried: [id number]) KEVIN Rx #: [id number] Need Help? Call us at Outcome Denied on April 10 by [employer] Medicare 2016 VTPD Request Reference Number: [id number]. FREESTY LIBR KIT 2 SENSOR is denied for not meeting the prior authorization requirement(s). Details of this decision are in the notice attached below or have been faxed to you. Drug FreeStyle Alonso 2 Sensor ePA cloud logo Form [employer] Medicare Part D Electronic Prior Authorization Form (2016 [facility]) Original Claim Info 70 Bill [...] Date Reviewed: 12/31/2023 Reviewed by: Sharlene Escobar APRN.BALLING HEAD TENDER - Fully Assessed Reason for Visit: KEVIN--FreeStyle [...] 40 units daily in the AM - CHRISTOSUMENMANUEL KWIKPEN U-100 INSULIN 100 unit/mL insulin pen [...] IDDM, E11.42 - flash glucose scanning reader (picoChipSTYLE ALONSO 2 READER) Use as instructed to monitor glucose continuously, IDDM, E11.42 - pregabalin (LYRICA) 150 mg capsule Take 1 capsule by mouth three times daily. - Zarjjhbd-Zhjaulroj-Cznqcnj HMB (KIRK) 7-7-1.5 gram pwpk Take 1 Each by mouth once daily. - amLODIPine-benazepril (LOTREL) 5-20 mg per capsule - HYDROCHLOROTHIAZIDE 25 MG TAB Take one(1) tablet daily. Problem List As Of Date 04/09/2024 Noted Resolved Essential hypertension [I10] 08/13/2005 OPEN WOUND FINGER W TENDON [S61.209A] 08/13/2005 INJURY DIGITAL NERVE [GPV1632] 08/13/2005 TRIGGER FINGER [M65.30] 08/13/2005 INJURY FINGER [...] Encounter Status:Closed by YANET KARIMI on 04/13/24 Normal [facility] HEMOGLOBIN A1C (POC)on 12-30 HbA1c (Bld) [Mass fraction] 6.0 % Abnormal 4.3 - 5.6 % [facility] Comment on above: Location:[facility], [address] [place] [address], [facility] Point of care (POC) Hemoglobin A1c (HGBA1C) [...] specific diabetes management situations: The POC device gear tester provides a normal range of 4.2% to 6.5% for the HGBA1C POC test. However, the [place] Diabetes Association guidelines indicate that patients with [...] Interpretation and review of laboratory results Abnormal [facility] AMYLOID TYPING MASS SPECon 0 12-11-2023 AMYLOID TYPING LAPPER [facility] Comment on above: Order Comment: Speci men Type: TISSUE SPECIMEN Ordering Facility: [facility] Address: [facility] [place] [address] Result Comment: Inte rpretation: LC-MS/MS analysis shows [...] developed and its performance characteristics determined by [facility] Medicine [place]. It has not been cleared or approved by the FDA. The laboratory is regulated under CLIA as qualified to perform high-complexity testing. This test is used for clinical purposes. It should not be regarded as investigational or for research. Laboratory Developed Test (LDT) Disclaimer: Performance characteristics of immunohistochemical, immunofluorescent and chromogenic in-situ hybridization tests have been determined by the performing laboratory within [facility]???[facility] and [facility] Medicine Department ([facility], [facility], [facility], [facility], [facility], [facility], or [facility]) in a manner consistent with CLIA requirements. [...] MD, PhD Performed By: #### S #### [facility] CLIA [id number] [facility] [place], [place] [address] [place] [address] STATES OF [facility] CLIA [id number] [address] [place] [id number] [facility] #### [id number] #### [facility] CLIA [id number] [address] [place] [id number] [facility] ANES POSTPROC EVALon 024 ANES POSTPROC EVAL HNO ID: [id number] Author: CHALINO ESPINO DO Service: Anesthesiology Author Type: Anesthesiologist Type: Anesthesia Postprocedure Evaluation Filed: 12/11/2023 13:40 Note Text: POST ANESTHESIA EVALUATION NOTE : 1960 Procedure Summary Date: 12/11/23 Room / Location: CO OR / CO OR Anesthesia Start: 1221 Anesthesia Stop: 1331 Procedure: [...] December 11, 2023 TIME: 1:39 PM CSN: [id number] [facility] ANES PRE-OPon 12-11-2023 ANES PRE-OP HNO ID: [id number] Author: SHAYY, CHALINO, DO Service: Anesthesiology Author Type: Anesthesiologist Type: Anesthesia Preprocedure Evaluation Filed: 12/11/2023 11:36 Note Text: ANESTHESIOLOGY DAY OF SURGERY NOTE : 1960 Procedure Information Date/Time: 12/11/23 1206 Procedure: DECOMPRESSION NERVE MEDIAN CARPAL TUNNEL (Bilateral: Wrist) Location: CO OR05 / CO OR Surgeons: Reji Mansfield MD Estimated body [...] and consent discussed: yes. Patient / Responsible Republican agrees to proceed: yes Patient / Surrogate [...] 25 MG TAB Take one(1) tablet daily. LYUMJEV KWIKPEN U-100 INSULIN 100 unit/mL [...] IDDM, E 11.42 Blood-Glucose Meter,Continuous (DEXCOM G6 IT INFRASTRUCTURE SPECIALIST) misc Use continuously to monitor glucose, IDDM, [...] instructed to monitor glucose continuously, IDDM, E11.42 Edlsqvis-Bwctbvsma-Mcexctl HMB (KIRK) 7-7-1.5 gram pwpk Take 1 Each by mouth once daily. I have interviewed and examined the patient. I have reviewed the medical record and/or the pre-anesthesia evaluation, pertinent labs, and test results. This contains updated information obtained within 48 hours of Surgery/Procedure. SIGNATURE: Chalino Espino DO PATIENT NAME: Isa Mayen DATE: December 11, 2023 TIME: 11:36 AM CSN: [id number] Normal [facility] GLUCOSE, BLOOD (POC)on 12-10 Glucose [Mass/Vol] 104 mg/dL Abnormal 74 - 99 mg/dL [facility] Comment on above: Location:[facility], [address] [place] [address], [facility] The Accu-Chek Inform II glucose meter has [...] Interpretation and review of laboratory results Abnormal [facility] Glucose [Mass/Vol] 80 mg/dL 74 - 99 mg/dL [facility] Comment on above: Location:[facility], [address] [place] [address], [facility] The Accu-Chek Inform II glucose meter has [...] blood gas instrument) in the above situations. [facility] OPERATIVE NOon 12-11-2023 OPERATIVE NO HNO ID: [id number] Author: REJI MANSFIELD MD Service: Orthopaedic Surgery Author Type: Physician Type: Operative Report Filed: 12/11/2023 13:29 Note Text: OPERATIVE/PROCEDURE REPORT LOG ID: [id number] SURGERY/PROCEDURE DATE: 12/11/2023 INCISION/PROCEDURE START TIME: 12:44 PM INCISION CLOSE/PROCEDURE END TIME: 1:21 PM SURGEON(S)/PROCEDURALIST(S) AND PSYCHIATRIC SOCIAL WORKER(S): Surgeon(s) and Role: * Reji Mansfield MD - Primary Physician Assessment Manager: Paula Kohli PA-C; Melissa Green PA-C Registered Nurse Food Cart Attendant: Gill Steve RN SURGERY/PROCEDURE(S): Bilateral carpal tunnel [...] resistance. Subsequently, I selected a mini meniscotome [place] blade and slid this in the protective guide, completely dividing the transverse carpal ligament. Delgado rakes were used to view up the wound to visualize for complete release and a Barnard elevator was used to palpate for complete [...] condition. Pre-O (more content not included)... Normal [facility] SURGICAL PATHOLOGYon 024 CASE REPORT [facility] Comment on above: Order Comment: Speci men Type: TISSUE SPECIMEN Ordering Facility: [facility] Address: [address] [place] [address] Result Comment: Surg ica Pathology Report Case: [id number] Authorizing Provider: Reji Mansfield MD Collected: 12/11/2023 01:16 PM Ordering Location: [facility] Surgery Received: 12/11/2023 03:15 PM Pathologist: Jonah Hernandez MD Specimen: Synovium, left hand for congo red Performed By: #### S #### [facility] CLIA [id number] [address] [place] [address] [place] [facility] CLIA [id number] [address] [place] [address] [place] #### [id number] #### [facility] CLIA [id number] [address] [place] [address] [place] CLINICAL HISTORY Normal [facility] Comment on above: Order Comment: Speci men Type: TISSUE SPECIMEN Ordering Facility: [facility] Address: [address] [place] [address] Result Comment: Pre- op diagnosis: Bilateral carpal tunnel syndrome [G56.03] Performed By: #### S #### [facility] CLIA [id number] [address] [place] [address] [place] [facility] CLIA [id number] [address] [place] [address] [place] #### [id number] #### [facility] CLIA [id number] [address] [place] [address] [place] DIAGNOSIS COMMENT The results of amylo id subtyping by mass spectrometry will be reported separately. [facility] Comment on above: Order Comment: Speci men Type: TISSUE SPECIMEN Ordering Facility: [facility] Address: [address] [place] [address] Performed By: #### S #### [facility] CLIA [id number] [address] [place] [address] [place] OF [facility] CLIA [id number] [facility] [place] [address] [place] #### [id number] #### [facility] CLIA [id number] [address] [place] [address] OF [facility] FINAL DIAGNOSIS [facility] Comment on above: Order Comment: Speci men Type: TISSUE SPECIMEN Ordering Facility: [facility] Address: [address] [place] [address] Result Comment: Brandy felton, biopsy: - Tenosynovium with diminutive amyloid deposits. See comment. - A [place] red stain highlights the small amyloid deposits. Performed By: #### S #### [facility] CLIA [id number] [address] [place] [address] [place] [facility] CLIA [id number] [address] [place] [address] [place] #### [id number] #### [facility] CLIA [id number] [address] [place], [place] [id number] [place] FINAL PERFORMING LAB [facility] Comment on above: Order Comment: Speci men Type: TISSUE SPECIMEN Ordering Facility: [facility] Address: [address] [place] [address] Result Comment: Diag nostic interpretation performed at [facility], [address] [place], [place] [address] CLIA# [id number] Mother'S Helper: Bowen Lindsay M.D. Performed By: #### S #### [facility] CLIA [id number] [address] [place] [address] [place] [facility] CLIA [id number] [address] [place] [address] [place] #### [id number] #### [facility] CLIA [id number] [address] [place] [address] [place] GROSS DESCRIPTION A. Synovium Normal [facility] Comment on above: Order Comment: Speci men Type: TISSUE SPECIMEN Ordering Facility: [facility] Address: [address] [place] [address] Result Comment: Rece ived in formalin labeled synovium, left hand is a single fragment of soft pink-coello tissue measuring 2.1 x 0.4 x 0.2 cm. The cut surface is coello-pink and soft. Specimen is totally submitted in cassette A1. MBB/MLG December 12, 2023 9:16 AM [place] [address] Performed By: #### S #### [facility] CLIA [id number] [address] [place] [address] [place] [facility] CLIA [id number] [address] [place] [address] [place] #### [id number] #### [facility] CLIA [id number] [address] [place] [address] [place] PT EDon 11-29-2023 PT ED HNO ID: [id number] Author: YANET MCCLENDON PA-C Service: General Surgery Author Type: Physician Assessment Manager Type: Patient Education Filed: 11/29/2023 16:44 Note [...] has a PAT appointment next week in [place] and was advised he would receive further instructions for any additional pre-operative medication management at that time. Patient also informed to reach out to his surgeon's office if he had any further questions orconcerns. He verbalized understanding. SIGNATURE: Yanet Mcclendon PA-C PATIENT NAME: Isa Mayen DATE: November 29, 2023 [facility] EMG(NEURO/NI)on 08-09-2023 [facility] Basophil percentageOrdered B y: Luis A Adkins on 07-18-2023 Chloride [Moles/Vol] 108 mmol/L 98-107 [facility] Glucose [Mass/Vol] 239 mg/dL 74-106 [facility] Comment on above: Glucose result great er than or equal to 200 mg/dLsuggests DIABETES MELLITUS per A.D.A. criteria. Hemoglobin (Bld) [Mass/Vol] 12.3 g/dL 13.0-16.5 [facility] Potassium [Moles/Vol] 4.1 mmol/L 3.5-5.1 [facility] Sodium [Moles/Vol] 140 mmol/L 136-145 [facility] WBC (Bld) [#/Vol] 17.4 10*3/uL 4.4-11.0 [facility] Determination of erythrocyte mean corpuscular volume (MCV)Ordered By: Luis A Adkins on 07-18-2023 MCV (RBC) [Entitic vol] 84.2 fL 80-94 [facility] Erythrocyte distribution wid th ratioOrdered By: Luis A Adkins on 07-18-2023 Erythrocyte distribution width (RBC) [Ratio] 13.6 % 11.6-14.6 [facility] Erythrocyte distribution wid th standard deviationOrdered By: Luis A Adkins on 07-18-2023 Erythrocyte distribution width (RBC) [Entitic vol] 41.8 fL 35.1-43.9 [facility] Hematocrit Auto (Bld) [Volum e fraction]Ordered By: Luis A Adkins on 07-18-2023 Hematocrit (Bld) [Volume fraction] 35.7 % 40-54 [facility] Laboratory - Chemistry and C hemistry - challengeOrdered By: Luis A Adkins on 07-18-2023 CO2 [Moles/Vol] 23.0 mmol/L 21.0-32.0 [facility] Urea nitrogen/Creatinine [Mass ratio] 23.8 mg/mg 10-20 [facility] Laboratory - Hematology and Cell countsOrdered By: Luis A Adkins on 07-18-2023 MCH (RBC) [Entitic mass] 29.0 pg 27.0-32.0 [facility] MCHC (RBC) [Mass/Vol] 34.5 g/dL 32-36 [facility] Platelet mean volume (Bld) [Entitic vol] 11.4 fL 6.2-12.0 [facility] Platelets (Bld) [#/Vol] 162 10*3/uL 150-450 [facility] No Panel InformationOrdered By: Luis A Adkins on 07-18-2023 Estimated Creatinine Clearance Calc 113.87 ml/min [facility] Estimated GFR (MDRD) Amer 96 mL/min >60 [facility] Comment on above: GFR Calc Estimated GFR (MDRD) Non-Af Amer 79 mL/min >60 [facility] Comment on above: Non- GFR Calc RBC Auto (Bld) [#/Vol]Ordere d By: Luis A Adkins on 07-18-2023 RBC (Bld) [#/Vol] 4.24 10*6/uL 4.6-6.2 [facility] Serum or plasma calcium camelia urement (mass/volume)Ordered By: Luis A Adkins on 07-18-2023 Calcium [Mass/Vol] 9.2 mg/dL 8.5-10.1 [facility] Serum or plasma creatinine m easurement (mass/volume)Ordered By: Luis A Adkins on 07-18-2023 Creatinine [Mass/Vol] 1.01 mg/dL 0.70-1.30 [facility] Comment on above: The validity of the calculated GFR & GFRAA in patients over 70 years has not been determined. Clinical correlation is essential. Serum or plasma urea nitroge n measurement (mass/volume)Ordered By: Luis A Adkins on 07-18-2023 Urea nitrogen [Mass/Vol] 24 mg/dL 7-18 [facility] Thin prep Papanicolaou smear with manual screeningOrdered By: Luis A Adkins on 07-18-2023 Thin prep Papanicolaou smear with manual screening 257 mg/dL 74-106 [facility] Comment on above: MANAGEMENT OF PATIEN T CARE PER NURSING PROTOCOL Thin prep Papanicolaou smear with manual screening 9 5-15 [facility] Bilirubin Test strip Ql (U)O rdered By: Luis A Adkins on 07-05-2023 Bilirubin Ql (U) Negative Negative [facility] Culture, urineOrdered By: St nilo Adkins on 07-05-2023 Bacteria identified Cx Nom (U) Culture exhibits no growth. [facility] Ketones Test strip Ql (U)Ord ered By: Luis A Adkins on 07-05-2023 Ketones Ql (U) Negative Negative [facility] Nitrite Test strip Ql (U)Ord ered By: Luis A Adkins on 07-05-2023 Nitrite Ql (U) Negative Negative [facility] Protein Test strip Ql (U)Ord ered By: Luis A Adkins on 07-05-2023 Protein Ql (U) Negative Negative [facility] Urine blood detectionOrdered By: Luis A Adkins on 07-05-2023 RBC Ql (U) Negative Negative [facility] Urine clarityOrdered By: James Adkins on 07-05-2023 Clarity (U) Clear Clear [facility] Urine color determinationOrd ered By: Luis A Adkins on 07-05-2023 Color (U) Yellow Yellow [facility] Urine glucose detectionOrder ed By: Luis A Adkins on 07-05-2023 Glucose Ql (U) Normal mg/dl Normal [facility] Urine leukocyte esterase det ection by dipstickOrdered By: Luis A Adkins on 07-05-2023 Leukocyte esterase Test strip Ql (U) Negative Negative [facility] Urine pHOrdered By: Luis A toure on 07-05-2023 pH (U) 5.0 [pH] 5.0 - 8.0 [facility] Urine specific gravity measu rementOrdered By: Luis A Adkins on 07-05-2023 Specific gravity (U) [Rel density] 1.020 1.002-1.03 0 [facility] Urine urobilinogen measureme ntOrdered By: Luis A Adkins on 07-05-2023 Urobilinogen Ql (U) Normal mg/dl Normal [facility] Absolute lymphocyte countOrd ered By: Luis A Adkins on 07-02-2023 Lymphocytes Auto (Unsp spec) [#/Vol] 3.44 10*3/uL 0.83-4.51 [facility] Automated lymphocyte count a s percentage of total leukocytesOrdered By: Luis A Adkins on 07-02-2023 Lymphocytes/100 WBC Auto (Unsp spec) 22.6 % 19-41 [facility] Basophil percentageOrdered B y: Luis A Adkins on 07-02-2023 Basophils/100 WBC (Bld) 0.6 % 0-1 [facility] Eosinophils/100 WBC (Bld) 1.9 % 0-5 [facility] Monocytes/100 WBC (Bld) 9.1 % 0-10 [facility] Neutrophils (Bld) [#/Vol] 9.9 10*3/uL 2.0-7.7 [facility] Neutrophils/100 WBC (Bld) 65.1 % 47-70 [facility] Immature granulocytes/100 WB C Auto (Bld)Ordered By: Luis A Adkins on 07-02-2023 Immature granulocytes/100 WBC (Bld) 0.700 % 0.0-0.9 [facility] Comment on above: IG% - Immature Granu locytes (promyelocytes, myelocytes and metamyelocytes) > 1% indicates that a LEFT SHIFT is Present. Laboratory - Chemistry and C hemistry - challengeOrdered By: Kevin George on 07-02-2023 Magnesium [Mass/Vol] 2.2 mg/dL 1.6-2.6 [facility] Laboratory - Hematology and Cell countsOrdered By: Luis A Adkins on 07-02-2023 Nucleated RBC/100 WBC (Bld) [Ratio] 0 % 0-5 [facility] No Panel InformationOrdered By: Luis A Adkins on 07-02-2023 Nasal Screen MRSA/MSSA [facility] Thin prep Papanicolaou smear with manual screeningOrdered By: Luis A Adkins on 07-02-2023 Thin prep Papanicolaou smear with manual screening 4.1 g/dL 3.2-5.0 [facility] Whole blood hemoglobin A1c/t otal hemoglobin ratio (mass fraction)Ordered By: Luis A Adkins on 07-02-2023 HbA1c (Bld) [Mass fraction] 6.3 % 3.8-5.6 [facility] Comment on above: Normal < 5.7 % Predi abetic 5.7 - 6.4 % Diabetic >or= 6.5 % Please note range changes. 25(OH)D3 [facility] 2022 25-hydroxyvitamin D3 [Mass/Vol] 13.8 ng/mL Low 31.0-80.0 [facility] Comment on above: Order Comment: Speci meagan Type: BLOOD SPECIMEN Ordering Facility: [facility] Address: [address] [place] [address] Result Comment: Clas sification of 25 [place] Vitamin D status: Deficiency/Insufficiency: < or = 30 ng/ml. Sufficiency/Optimal Levels: 31-80 ng/mL Toxicity: > 100 ng/mL. Test performed by chemiluminescent immunoassay. Performed By: #### 1 989-3 #### [facility] CLIA [id number] [address] [place] [address] [place] ALBUMIN/CREAT RATIO RND URon 04-24-2023 Albumin DL <= 20 mg/L (U) [Mass/Vol] 131.9 mg/L Normal [facility] Comment on above: Order Comment: Speci men Type: TISSUE SPECIMEN Ordering Facility: [facility] Address: [address] [place] [address] Performed By: #### S #### [facility] CLIA [id number] [address] [place] [address] [place] [facility] CLIA [id number] [address] [place] [address] [place] #### [id number] #### [facility] CLIA [id number] [address] [place] [address] [place] Albumin/Creatinine (U) [Mass ratio] 64 mg/g High <30 [facility] Comment on above: Order Comment: Speci men Type: TISSUE SPECIMEN Ordering Facility: [facility] Address: [address] [place] [address] Result Comment: Adul t Male and Female Nephrotic Criteria: <30 mg/g is considered normal to mildly increased 30-300 mg/g is considered moderately increased >300 mg/g is considered severely increased KDIGO. (2013). KDIGO 2012 Clinical Practice Guideline for the Evaluation and Management of Chronic Kidney Disease. Official Journal of the International Society of Nephrology, 3(1), 1-150. Performed By: #### S #### [facility] CLIA [id number] [address] [place] [address] [place] [facility] CLIA [id number] [address] [place] [address] [place] #### [id number] #### [facility] CLIA [id number] [address] [place] [address] [place] Creatinine (U) [Mass/Vol] 206.5 mg/dL Normal 20.0-300.0 [facility] Comment on above: Order Comment: Speci men Type: TISSUE SPECIMEN Ordering Facility: [facility] Address: [address] [place] [address] Performed By: #### S #### [facility] CLIA [id number] [address] [place] [address] [place] [facility] CLIA [id number] [address] [place] [address] [place] #### [id number] #### [facility] CLIA [id number] [address] [place] [address] [place] Comprehensive metabolic 2000 panelon 04-24-2023 Albumin [Mass/Vol] 4.6 g/dL Normal 3.9-4.9 [facility] Comment on above: Order Comment: Speci men Type: BLOOD SPECIMEN Ordering Facility: [facility] Address: [address] [place] [address] Performed By: #### 2 4331-1, 87544-5, 3015-3 #### [facility] [facility] CLIA [id number] [address] [place] [address] [place] ALP [Catalytic activity/Vol] 72 U/L Normal 38-113 [facility] Comment on above: Order Comment: Speci men Type: BLOOD SPECIMEN Ordering Facility: [facility] Address: [address] [place] [address] Performed By: #### 2 4331-1, 24215-5, 3 #### [facility] [facility] CLIA [id number] [address] [place] [address] [place] ALT [Catalytic activity/Vol] 24 U/L Normal 10-54 [facility] Comment on above: Order Comment: Speci men Type: BLOOD SPECIMEN Ordering Facility: [facility] Address: [address] [place] [address] Performed By: #### 2 4331-1, 51602-3, 3 #### [place] [facility] CLIA [id number] [address] [place] [address] [place] Anion gap [Moles/Vol] 15 mmol/L Normal 9-18 [facility] Comment on above: Order Comment: Speci men Type: BLOOD SPECIMEN Ordering Facility: [facility] Address: [address] [place] [address] Performed By: #### 2 4331-1, 80656-9, 3 #### [facility] [facility] CLIA [id number] [address] [place] [address] [place] AST [Catalytic activity/Vol] 29 U/L Normal 14-40 [facility] Comment on above: Order Comment: Speci men Type: BLOOD SPECIMEN Ordering Facility: [facility] Address: [address] [place] [address] Performed By: #### 2 4331-1, 59188-6, 3015-3 #### [facility] [facility] CLIA [id number] [address] [place] [address] [place] Bilirubin [Mass/Vol] 0.4 mg/dL Normal 0.2-1.3 [facility] Comment on above: Order Comment: Speci men Type: BLOOD SPECIMEN Ordering Facility: [facility] Address: [address] [place] [address] Performed By: #### 2 4331-1, 96718-6, 3015-3 #### [place] [facility] CLIA [id number] [address] [place] [address] [place] Calcium [Mass/Vol] 9.9 mg/dL Normal 8.5-10.2 [facility] Comment on above: Order Comment: Speci men Type: BLOOD SPECIMEN Ordering Facility: [facility] Address: [address] [place] [address] Performed By: #### 2 4331-1, 04565-3, 3 #### [facility] CLIA [id number] [address] [place] [address] [place] Chloride [Moles/Vol] 104 mmol/L Normal 97-105 [facility] Comment on above: Order Comment: Speci men Type: BLOOD SPECIMEN Ordering Facility: [facility] Address: [address] [place] [address] Performed By: #### 2 4331-1, 86907-3, 3 #### [facility] CLIA [id number] [address] [place] [address] [place] CO2 [Moles/Vol] 24 mmol/L Normal 22-30 [facility] Comment on above: Order Comment: Speci men Type: BLOOD SPECIMEN Ordering Facility: [facility] Address: [address] [place] [address] Performed By: #### 2 4331-1, 76782-2, 3015-3 #### [facility] CLIA [id number] [address] [place] [address] [place] Creatinine [Mass/Vol] 1.41 mg/dL High 0.73-1.22 [facility] Comment on above: Order Comment: Speci men Type: BLOOD SPECIMEN Ordering Facility: [facility] Address: [address] [place] [address] Performed By: #### 2 4331-1, 46058-6, 3015-3 #### [facility] CLIA [id number] [address] Creatinine and Glomerular filtration rate.predicted panel (S/P/Bld) 56 mL/min/1.73m??? Low >=60 [facility] Comment on above: Order Comment: Gopi rhodes Type: BLOOD SPECIMEN Ordering Facility: [facility] Address: [address] [place] [address] Result Comment: Debbie mated Glomerular Filtration Rate [...] actual GFR. Performed By: #### 2 4331-1, 87361-1, 3 #### [facility] CLIA [id number] [address] Glucose [Mass/Vol] 77 mg/dL Normal 74-99 [facility] Comment on above: Order Comment: Gopi rhodes Type: BLOOD SPECIMEN Ordering Facility: [facility] Address: [address] [place] [address] Result Comment: The [place] Diabetes Association (ADA) provides guidance for cutoff [...] Standards of Medical Care in Diabetes 2016, [place] Diabetes Association. Diabetes Care. 2016.39(Suppl 1). Performed By: #### 2 4331-1, 21748-7, 3015-3 #### [facility] CLIA [id number] [address] [place] [address] [place] Potassium [Moles/Vol] 3.8 mmol/L Normal 3.7-5.1 [facility] Comment on above: Order Comment: Speci men Type: BLOOD SPECIMEN Ordering Facility: [facility] Address: [address] [place] [address] Performed By: #### 2 4331-1, 50351-5, 6-3 #### [facility] CLIA [id number] [address] [place] [address] [place] Protein [Mass/Vol] 7.7 g/dL Normal 6.3-8.0 [facility] Comment on above: Order Comment: Speci men Type: BLOOD SPECIMEN Ordering Facility: [facility] Address: [address] [place] [address] Performed By: #### 2 4331-1, 72844-2, 3015-3 #### [facility] [facility] CLIA [id number] [address] [place] Sodium [Moles/Vol] 143 mmol/L Normal 136-144 [facility] Comment on above: Order Comment: Speci men Type: BLOOD SPECIMEN Ordering Facility: [facility] Address: [address] [place] [address] Performed By: #### 2 4331-1, 13623-1, 3015-3 #### [facility] CLIA [id number] [address] [place] [address] [place] Urea nitrogen [Mass/Vol] 24 mg/dL Normal 9-24 [facility] Comment on above: Order Comment: Speci men Type: BLOOD SPECIMEN Ordering Facility: [facility] Address: [address] [place] [address] Performed By: #### 2 4331-1, 17351-1, 6-3 #### [facility] CLIA [id number] [address] [place] [address] [place] HbA1c (Bld)on 04-24-2023 Average glucose Estimated from glycated hemoglobin (Bld) [Mass/Vol] 128 mg/dL Normal [facility] Comment on above: Order Comment: Speci men Type: TISSUE SPECIMEN Ordering Facility: [facility] Address: [address] [place] [id number] Result Comment: eAG: (Estimated average glucose) is a calculated value from HgbA1c and is surgical device sales representative of the average blood glucose level in the last 2-3 month period. Performed By: #### S #### [facility] CLIA [id number] [address] [facility] [place] [address] [place] [facility] CLIA [id number] [address] [place] [address] [place] #### [id number] #### [facility] CLIA [id number] [address] [place] [address] [place] HbA1c (Bld) [Mass fraction] 6.1 % High 4.3-5.6 [facility] Comment on above: Order Comment: Speci men Type: TISSUE SPECIMEN Ordering Facility: [facility] Address: [address] [place] [address] Result Comment: Amer [place] Diabetes Association guidelines indicate that patients with HgbA1c in the range 5.7-6.4% are at increased risk for development of diabetes, and intervention by lifestyle modification may be beneficial. HgbA1c greater or equal to 6.5% is considered diagnostic of diabetes. Performed By: #### S #### [facility] CLIA [id number] [address] [facility] [place] [address] [place] [facility] CLIA [id number] [address] [place] [address] [place] #### [id number] #### [facility] CLIA [id number] [address] [address] [place] Lipid 1996 panelon 3 Cholesterol [Mass/Vol] 189 mg/dL Normal <200 [facility] Comment on above: Order Comment: Speci men Type: BLOOD SPECIMEN Ordering Facility: [facility] Address: [address] [place] [address] Result Comment: <200 mg/dL, Desirable 200-239 mg/dL, Borderline high >239 mg/dL, High Performed By: #### 2 3251-1, 02795-7, 3015-3 #### [facility] CLIA [id number] [address] Cholesterol in HDL [Mass/Vol] 39 mg/dL Low >39 [facility] Comment on above: Order Comment: Gopi meagan Type: BLOOD SPECIMEN Ordering Facility: [facility] Address: [address] [place] [address] Result Comment: 40-5 9 mg/dL, Acceptable >59 mg/dL, High: Negative risk factor for coronary heart disease <40 mg/dL, Low: Positive risk factor for coronary heart disease Performed By: #### 2 4331-1, 81255-2, 3 #### [facility] [facility] CLIA [id number] [address] Cholesterol in LDL [Mass/Vol] 112 mg/dL High <100 [facility] Comment on above: Order Comment: Gopi [facility] Type: BLOOD SPECIMEN Ordering Facility: [facility] Address: [address] [place] [address] Result Comment: <100 mg/dL, Optimal 100-129 mg/dL, Near optimal/above optimal 130-159 mg/dL, Borderline high 160-189 mg/dL, High >189 mg/dL, Very high Secondary prevention optimal LDL Cholesterol levels are recommended to be < 70 mg/dL Performed By: #### 2 4331-1, 41214-2, 3015-3 #### [place] [facility] CLIA [id number] [address] Cholesterol in LDL/Cholesterol in HDL [Mass ratio] 2.87 {ratio} High <2.54 [facility] Comment on above: Order Comment: [facility] Type: BLOOD SPECIMEN Ordering Facility: [facility] Address: [address] [place] [address] Result Comment: Refe rence: 1. National Cholesterol Education Program ATP III Guideline At-A-Glance Quick Desk Reference: National Heart, Lung, and Blood [place]. National Institutes of Health. 2001: NIH Publication No. 01-3305. 2. An International Atherosclerosis Society position paper: global recommendations for the management of dyslipidemia: executive summary, Atherosclerosis. 2014: 232(2):410-413. Performed By: #### 2 4331-1, 22470-1, 3015-3 #### [place] [facility] CLIA [id number] [address] [place] [address] [place] Cholesterol in VLDL [Mass/Vol] 38 mg/dL High <30 [facility] Comment on above: Order Comment: Speci men Type: BLOOD SPECIMEN Ordering Facility: [facility] Address: [address] [place] [address] Performed By: #### 2 4331-1, 33209-8, 3015-3 #### [facility] [facility] CLIA [id number] [address] [place] [address] [place] Cholesterol non HDL [Mass/Vol] 150 mg/dL High <130 [facility] Comment on above: Order Comment: Speci men Type: BLOOD SPECIMEN Ordering Facility: [facility] Address: [address] [place] [address] Result Comment: <130 mg/dL, Optimal 130-159 mg/dL, Near optimal/above optimal 160-189 mg/dL, Borderline high 190-219 mg/dL, High >219 mg/dL, Very high Secondary prevention optimal non HDL Cholesterol levels are recommended to be <100 mg/dL Performed By: #### 2 4331-1, 57757-9, 3015-3 #### [facility] [facility] CLIA [id number] [address] [place] [address] [place] Cholesterol.total/Chol esterol in HDL [Mass ratio] 4.85 {ratio} Normal <5.10 [facility] Comment on above: Order Comment: Speci men Type: BLOOD SPECIMEN Ordering Facility: [facility] Address: [address] [place] [address] Performed By: #### 2 4331-1, 58853-7, 3015-3 #### [facility] [facility] CLIA [id number] [address] [place] FASTING TIME 12 hrs Normal [facility] Comment on above: Order Comment: Speci men Type: BLOOD SPECIMEN Ordering Facility: [facility] Address: [address] [place] [address] Performed By: #### 2 4331-1, 02520-8, 3015-3 #### [facility] CLIA [id number] [address] [place] [address] [place] Triglyceride [Mass/Vol] 190 mg/dL High <150 [facility] Comment on above: Order Comment: Speci men Type: BLOOD SPECIMEN Ordering Facility: [facility] Address: [address] [place] [address] Result Comment: <150 mg/dL, Normal 150-199 mg/dL, Borderline high 200-499 mg/dL, High >499 mg/dL, Very high Performed By: #### 2 4331-1, 25245-8, 6-3 #### [facility] CLIA [id number] [address] [place] [address] [place] TSH SerPl-aCncon 04-24-2023 TSH Qn 4.730 m[IU]/L High 0.270-4.20 0 [facility] Comment on above: Order Comment: Speci men Type: BLOOD SPECIMEN Ordering Facility: [facility] Address: [address] [place] [address] Performed By: #### 2 4331-1, 98867-9, 3 #### [facility] CLIA [id number] [address] [facility] Anaerobic cultureOrdered By: Mario Ynu on 01-11-2023 Bacteria identified Anaer cx Nom (Unsp spec) No anaerobic bacteria isolated. [facility] Bacteria identified Cx Nom ( Wound)Ordered By: Mario Yun on 01-11-2023 Wound Culture Enterobacter cloacae complex [facility] Wound Culture Proteus mirabilis [facility] Wound Culture Staphylococcus aureus [facility] Wound Culture Enterococcus faecalis [facility] Gram stain for investigation of transfusion reactionOrdered By: Mario Yun on 01-11-2023 Microscopic observation Gram stain Nom (Unsp spec) [facility] Anaerobic cultureOrdered By: Mario Yun on 01-10-2023 Bacteria identified Anaer cx Nom (Unsp spec) No anaerobic bacteria isolated. [facility] Bacteria identified Cx Nom ( Wound)Ordered By: Mario Yun on 01-10-2023 Wound Culture Enterobacter cloacae complex [facility] Wound Culture Proteus mirabilis [facility] Wound Culture Staphylococcus aureus [facility] Wound Culture Enterococcus faecalis [facility] Gram stain for investigation of transfusion reactionOrdered By: Mario Yun on 01-10-2023 Microscopic observation Gram stain Nom (Unsp spec) [facility] Glucose Glucometer (BldC) [M ass/Vol]Ordered By: Mario Yun on 12-21-2022 Glucose [Mass/Vol] 221 mg/dL 74-106 [facility] Comment on above: MANAGEMENT OF PATIEN T CARE PER NURSING PROTOCOL Absolute lymphocyte countOrd ered By: Anita Zhang on 12-10-2022 Lymphocytes Auto (Unsp spec) [#/Vol] 2.87 10*3/uL 0.83-4.51 [facility] Basophil percentageOrdered B y: Anita Zhang on 12-10-2022 Basophils/100 WBC (Bld) 0.8 % 0-1 [facility] Bilirubin [Mass/Vol] 0.40 mg/dL 0.20-1.00 [facility] Comment on above: For patients on eltr ombopag therapy, use of Dimension [place] TBIL is not recommended. Chloride [Moles/Vol] 111 mmol/L 98-107 [facility] Eosinophils/100 WBC (Bld) 1.7 % 0-5 [facility] Glucose [Mass/Vol] 102 mg/dL 74-106 [facility] Comment on above: Fasting Glucose resu lt from 100 to 125 mg/dL suggests IMPAIRED HOMEOSTASIS per A.D.A. criteria. Neutrophils (Bld) [#/Vol] 5.3 10*3/uL 2.0-7.7 [facility] Neutrophils/100 WBC (Bld) 57.1 % 47-70 [facility] Potassium [Moles/Vol] 3.9 mmol/L 3.5-5.1 [facility] Protein [Mass/Vol] 7.9 g/dL 6.4-8.2 [facility] Sodium [Moles/Vol] 141 mmol/L 136-145 [facility] WBC (Bld) [#/Vol] 9.3 10*3/uL 4.4-11.0 [facility] Blood erythrocytes count (nu mber/volume)Ordered By: Anita Zhang on 12-10-2022 RBC (Bld) [#/Vol] 4.94 10*6/uL 4.6-6.2 [facility] Blood hemoglobin measurement (mass/volume)Ordered By: Anita Zhang on 12-10-2022 Hemoglobin (Bld) [Mass/Vol] 14.8 g/dL 13.0-16.5 [facility] Blood lymphocytes/100 leukoc ytesOrdered By: Anita Zhang on 12-10-2022 Lymphocytes/100 WBC (Bld) 30.8 % 19-41 [facility] Blood monocytes/100 leukocyt esOrdered By: Anita Zhang on 12-10-2022 Monocytes/100 WBC (Bld) 9.1 % 0-10 [facility] Blood platelet mean volumeOr dered By: Anita Zhang on 12-10-2022 Platelet mean volume (Bld) [Entitic vol] 10.8 fL 6.2-12.0 [facility] Determination of erythrocyte mean corpuscular volume (MCV)Ordered By: Anita Zhang on 12-10-2022 MCV (RBC) [Entitic vol] 86.2 fL 80-94 [facility] Hematocrit Auto (Bld) [Volum e fraction]Ordered By: Anita Zhang on 12-10-2022 Hematocrit (Bld) [Volume fraction] 42.6 % 40-54 [facility] Laboratory - Chemistry and C hemistry - challengeOrdered By: Anita Zhang on 12-10-2022 ALP [Catalytic activity/Vol] 66 U/L 45-117 [facility] ALT [Catalytic activity/Vol] 31 U/L 16-61 [facility] CO2 [Moles/Vol] 27.0 mmol/L 21.0-32.0 [facility] Globulin (S) [Mass/Vol] 4.1 g/dL 2.2-4.2 [facility] Urea nitrogen/Creatinine [Mass ratio] 13.9 mg/mg 10-20 [facility] Laboratory - Hematology and Cell countsOrdered By: Anita Zhang on 12-10-2022 Erythrocyte distribution width (RBC) [Entitic vol] 40.4 fL 35.1-43.9 [facility] Erythrocyte distribution width (RBC) [Ratio] 13.1 % 11.6-14.6 [facility] Immature granulocytes/100 WBC (Bld) 0.500 % 0.0-0.9 [facility] Comment on above: IG% - Immature Granu locytes (promyelocytes, myelocytes and metamyelocytes) > 1% indicates that a LEFT SHIFT is Present. MCH (RBC) [Entitic mass] 30.0 pg 27.0-32.0 [facility] Nucleated RBC/100 WBC (Bld) [Ratio] 0 % 0-5 [facility] MCHC Auto (RBC) [Mass/Vol]Or dered By: Anita Zhang on 12-10-2022 MCHC (RBC) [Mass/Vol] 34.7 g/dL 32-36 [facility] No Panel InformationOrdered By: Anita Zhang on 12-10-2022 Estimated GFR (MDRD) Amer 77 mL/min >60 [facility] Comment on above: GFR Calc Estimated GFR (MDRD) Non-Af Amer 64 mL/min >60 [facility] Comment on above: Non- GFR Calc Platelets bldOrdered By: Anita Zhang on 12-10-2022 Platelets (Bld) [#/Vol] 211 10*3/uL 150-450 [facility] Serum or plasma albumin camelia urement (mass/volume)Ordered By: Anita Zhang on 12-10-2022 Albumin [Mass/Vol] 3.8 g/dL 3.2-5.0 [facility] Serum or plasma albumin/glob ulin mass ratioOrdered By: Anita Zhang on 12-10-2022 Albumin/Globulin [Mass ratio] 0.9 {ratio} 0.9-2.4 [facility] Serum or plasma calcium camelia urement (mass/volume)Ordered By: Anita Zhang on 12-10-2022 Calcium [Mass/Vol] 9.3 mg/dL 8.5-10.1 [facility] Serum or plasma creatinine m easurement (mass/volume)Ordered By: Anita Zhang on 12-10-2022 Creatinine [Mass/Vol] 1.22 mg/dL 0.70-1.30 [facility] Comment on above: The validity of the calculated GFR & GFRAA in patients over 70 years has not been determined. Clinical correlation is essential. Serum or plasma urea nitroge n measurement (mass/volume)Ordered By: Anita Zhang on 12-10-2022 Urea nitrogen [Mass/Vol] 17 mg/dL 7-18 [facility] Thin prep Papanicolaou smear with manual screeningOrdered By: Anita Zhang on 12-10-2022 Thin prep Papanicolaou smear with manual screening 25 U/L 15-37 [facility] Thin prep Papanicolaou smear with manual screening 3 5-15 [facility] HEMOGLOBIN A1C (POC)on 08-24 HbA1c (Bld) [Mass fraction] 7.0 % Abnormal 4.2 - 5.6 [facility] Bacteria identified Cx Nom ( Wound)Ordered By: Dr. Yun on 08-18-2022 Wound Culture Proteus mirabilis [facility] Wound Culture Staphylococcus aureus [facility] Gram stain for investigation of transfusion reactionOrdered By: Dr. Yun on 08-15-2022 Microscopic observation Gram stain Nom (Unsp spec) [facility] Anaerobic cultureOrdered By: Dr. Yun on 06-04-2022 Bacteria identified Anaer cx Nom (Unsp spec) No growth in 5 days. [facility] Routine wound cultureOrdered By: Dr. Yun on 06-03-2022 Bacteria identified Cx Nom (Wound) No growth aerobically. [facility] Glucose Glucometer (dC) [M ass/Vol]Ordered By: Dr. Yun on 06-01-2022 Glucose [Mass/Vol] 252 mg/dL 74-106 [facility] Comment on above: MANAGEMENT OF PATIEN T CARE PER NURSING PROTOCOL Gram stain for investigation of transfusion reactionOrdered By: Dr. Yun on 06-01-2022 Microscopic observation Gram stain Nom (Unsp spec) [facility] HEMOGLOBIN A1C (POC)on 05-25 HbA1c (Bld) [Mass fraction] 8.9 % Abnormal 4.2 - 5.6 % [facility] Absolute lymphocyte countOrd ered By: Dr. Zhang on 05-21-2022 Lymphocytes Auto (Unsp spec) [#/Vol] 2.29 10*3/uL 0.83-4.51 [facility] Basophil percentageOrdered B y: Dr. Zhang on 05-21-2022 Basophils/100 WBC (Bld) 0.8 % 0-1 [facility] Bilirubin [Mass/Vol] 0.50 mg/dL 0.20-1.00 [facility] Comment on above: For patients on eltr ombopag therapy, use of Dimension [place] TBIL is not recommended. Chloride [Moles/Vol] 104 mmol/L 98-107 [facility] Eosinophils/100 WBC (Bld) 2.6 % 0-5 [facility] Glucose [Mass/Vol] 157 mg/dL 74-106 [facility] Comment on above: Fasting Glucose resu lt greater than or equal to 126 mg/dL suggests DIABETES MELLITUS per A.D.A. criteria. Neutrophils (Bld) [#/Vol] 5.0 10*3/uL 2.0-7.7 [facility] Neutrophils/100 WBC (Bld) 59.5 % 47-70 [facility] Potassium [Moles/Vol] 3.8 mmol/L 3.5-5.1 [facility] Protein [Mass/Vol] 7.8 g/dL 6.4-8.2 [facility] Sodium [Moles/Vol] 141 mmol/L 136-145 [facility] WBC (Bld) [#/Vol] 8.4 10*3/uL 4.4-11.0 [facility] Blood erythrocytes count (nu mber/volume)Ordered By: Dr. Zhang on 05-21-2022 RBC (Bld) [#/Vol] 5.34 10*6/uL 4.6-6.2 [facility] Blood hemoglobin measurement (mass/volume)Ordered By: Dr. Zhang on 05-21-2022 Hemoglobin (Bld) [Mass/Vol] 16.0 g/dL 13.0-16.5 [facility] Blood lymphocytes/100 leukoc ytesOrdered By: Dr. Zhang on 05-21-2022 Lymphocytes/100 WBC (Bld) 27.3 % 19-41 [facility] Blood monocytes/100 leukocyt esOrdered By: Dr. Zhang on 05-21-2022 Monocytes/100 WBC (Bld) 9.4 % 0-10 [facility] Blood platelet mean volumeOr dered By: Dr. Zhang on 05-21-2022 Platelet mean volume (Bld) [Entitic vol] 11.8 fL 6.2-12.0 [facility] Determination of erythrocyte mean corpuscular volume (MCV)Ordered By: Dr. Zhang on 05-21-2022 MCV (RBC) [Entitic vol] 88.2 fL 80-94 [facility] Hematocrit Auto (Bld) [Volum e fraction]Ordered By: Dr. Zhang on 05-21-2022 Hematocrit (Bld) [Volume fraction] 47.1 % 40-54 [facility] Laboratory - Chemistry and C hemistry - challengeOrdered By: Dr. Zhang on 05-21-2022 ALP [Catalytic activity/Vol] 67 U/L 45-117 [facility] ALT [Catalytic activity/Vol] 41 U/L 16-61 [facility] CO2 [Moles/Vol] 25.0 mmol/L 21.0-32.0 [facility] Globulin (S) [Mass/Vol] 3.7 g/dL 2.2-4.2 [facility] Urea nitrogen/Creatinine [Mass ratio] 12.2 mg/mg 10-20 [facility] Laboratory - Hematology and Cell countsOrdered By: Dr. Zhang on 05-21-2022 Erythrocyte distribution width (RBC) [Entitic vol] 42.7 fL 35.1-43.9 [facility] Erythrocyte distribution width (RBC) [Ratio] 13.2 % 11.6-14.6 [facility] Immature granulocytes/100 WBC (Bld) 0.400 % 0.0-0.9 [facility] Comment on above: IG% - Immature Granu locytes (promyelocytes, myelocytes and metamyelocytes) > 1% indicates that a LEFT SHIFT is Present. MCH (RBC) [Entitic mass] 30.0 pg 27.0-32.0 [facility] Nucleated RBC/100 WBC (Bld) [Ratio] 0 % 0-5 [facility] MCHC Auto (RBC) [Mass/Vol]Or dered By: Dr. Zhang on 05-21-2022 MCHC (RBC) [Mass/Vol] 34.0 g/dL 32-36 [facility] No Panel InformationOrdered By: Dr. Zhang on 05-21-2022 Estimated GFR (MDRD) Amer 83 mL/min >60 [facility] Comment on above: GFR Calc Estimated GFR (MDRD) Non-Af Amer 69 mL/min >60 [facility] Comment on above: Non- GFR Calc Platelets bldOrdered By: Dr. Zhang on 05-21-2022 Platelets (Bld) [#/Vol] 168 10*3/uL 150-450 [facility] Serum or plasma albumin camelia urement (mass/volume)Ordered By: Dr. Zhang on 05-21-2022 Albumin [Mass/Vol] 4.1 g/dL 3.2-5.0 [facility] Serum or plasma albumin/glob ulin mass ratioOrdered By: Dr. Zhang on 05-21-2022 Albumin/Globulin [Mass ratio] 1.1 {ratio} 0.9-2.4 [facility] Serum or plasma calcium camelia urement (mass/volume)Ordered By: Dr. Zhang on 05-21-2022 Calcium [Mass/Vol] 9.7 mg/dL 8.5-10.1 [facility] Serum or plasma creatinine m easurement (mass/volume)Ordered By: Dr. Zhang on 05-21-2022 Creatinine [Mass/Vol] 1.15 mg/dL 0.70-1.30 [facility] Comment on above: The validity of the calculated GFR & GFRAA in patients over 70 years has not been determined. Clinical correlation is essential. Serum or plasma urea nitroge n measurement (mass/volume)Ordered By: Dr. Zhang on 05-21-2022 Urea nitrogen [Mass/Vol] 14 mg/dL 7-18 [facility] Thin prep Papanicolaou smear with manual screeningOrdered By: Dr. Zhang on 05-21-2022 Thin prep Papanicolaou smear with manual screening 24 U/L 15-37 [facility] Thin prep Papanicolaou smear with manual screening 12 5-15 [facility] Whole blood hemoglobin A1c/t otal hemoglobin ratio (mass fraction)Ordered By: Dr. Yun on 04-03-2022 HbA1c (Bld) [Mass fraction] 8.8 % 3.8-5.6 [facility] Comment on above: Normal < 5.7 % Predi abetic 5.7 - 6.4 % Diabetic >or= 6.5 % Please note range changes. Glucose Glucometer (BldC) [M ass/Vol]on 01-10-2022 Glucose [Mass/Vol] 160 mg/dL 74-106 [facility] Work Phone: Comment on above: MANAGEMENT OF PATIEN T CARE PER NURSING PROTOCOL HEMOGLOBIN A1C (POC)on 11-14 HbA1c (Bld) [Mass fraction] 9.1 % Abnormal 4.2 - 5.6 % [facility] Whole blood hemoglobin A1c/t otal hemoglobin ratio (mass fraction)on 09-19-2021 HbA1c (Bld) [Mass fraction] 8.9 % 3.8-5.6 [facility] Work Phone: Comment on above: Normal < 5.7 % Predi abetic 5.7 - 6.4 % Diabetic >or= 6.5 % Please note range changes. CR Foot Complete 3+ Views [place] 10-07-2020 CR Foot Complete 3+ Views Left [facility]: [id number] Radiology ACCESSION EXAM DATE/TIME PROCEDURE ORDERING PROVIDER [id number] 10/07/2020 11:39 EDT CR Foot Complete 3+ MD GERMAN, MEREDITH Rudd Views Left CPT code 51810 Reason For Exam (CR Foot Complete 3+ [...] Transcribed Date and Time: 10/07/2020 12:03 Normal [facility] Comp Metabolic Panelon 10-07 ALP [Catalytic activity/Vol] 77 U/L Normal 38-126 [facility] Comment on above: Performed By: #### H EMDF, CMP3, LACT3 #### [facility] [address] [place] [address] ALT [Catalytic activity/Vol] 34 U/L Normal 0-49 [facility] Comment on above: Result Comment: The ALT test is performed by an updated assay method. Please note that the reference intervals have been changed and are now sex specific. Performed By: #### H EMDF, CMP3, LACT3 #### [facility] [address] [place] [address] AST [Catalytic activity/Vol] 56 U/L High 15-46 [facility] Comment on above: Result Comment: Slig htly hemolysed, interpret with caution. Performed By: #### H EMDF, CMP3, LACT3 #### [facility] [address] [place] [address] Calcium [Mass/Vol] 9.9 mg/dL Normal 8.4-10.4 [facility] Comment on above: Performed By: #### H EMDF, CMP3, LACT3 #### [facility] [address] [place] [address] Glucose [Mass/Vol] 285 mg/dL High 70-100 [facility] Comment on above: Performed By: #### H EMDF, CMP3, LACT3 #### [facility] [address] [place] [address] Protein [Mass/Vol] 8.8 g/dL High 6.3-8.2 [facility] Comment on above: Performed By: #### H EMDF, CMP3, LACT3 #### [facility] [address] [place] [address] Urea nitrogen [Mass/Vol] 22 mg/dL High 7-20 [facility] Comment on above: Performed By: #### H EMDF, CMP3, LACT3 #### [facility] [address] [place] [address] Anion gap [Moles/Vol] 11 mmol/L Normal 3-13 [facility] Comment on above: Performed By: #### H EMDF, CMP3, LACT3 #### [facility] [address] [place] [address] Bilirubin [Mass/Vol] 0.9 mg/dL Normal 0.2-1.3 [facility] Comment on above: Performed By: #### H EMDF, CMP3, LACT3 #### [facility] [address] [place] [address] CO2 [Moles/Vol] 26 mmol/L Normal 22-30 [facility] Comment on above: Performed By: #### H EMDF, CMP3, LACT3 #### [facility] [address] [place] [address] Creatinine [Mass/Vol] 1.16 mg/dL Normal 0.52-1.25 [facility] Comment on above: Performed By: #### H EMDF, CMP3, LACT3 #### [facility] [address] [place] [address] GFR/1.73 sq M.predicted among blacks MDRD (S/P/Bld) [Vol rate/Area] 78.9 mL/min/{1.73_m2} Normal >60 [facility] Comment on above: Performed By: #### H EMDF, CMP3, LACT3 #### [facility] [address] [place] [address] GFR/1.73 sq M.predicted among non-blacks MDRD (S/P/Bld) [Vol rate/Area] 68.0 mL/min/{1.73_m2} Normal >60 [facility] Comment on above: Result Comment: KDIG O [...] By: #### H EMDF, CMP3, LACT3 #### [facility] [address] [place] [address] Potassium [Moles/Vol] 4.4 mmol/L Normal 3.5-5.1 [facility] Comment on above: Result Comment: Slig htly hemolysed, interpret with caution. Performed By: #### H EMDF, CMP3, LACT3 #### [facility] [address] [place] [address] Sodium [Moles/Vol] 135 mmol/L Normal 135-145 [facility] Comment on above: Performed By: #### H EMDF, CMP3, LACT3 #### [facility] [address] [place] [address] Albumin [Mass/Vol] 4.7 g/dL Normal 3.5-5.0 [facility] Comment on above: Performed By: #### H EMDF, CMP3, LACT3 #### [facility] [address] [place] [address] Chloride [Moles/Vol] 98 mmol/L Normal 98-107 [facility] Comment on above: Performed By: #### H EMDF, CMP3, LACT3 #### [facility] [address] [place] [address] Comprehensive Metabolic Pane lOrdered By: Meredith Tinoco on 10-07-2020 Albumin [Mass/Vol] 4.7 g/dL 3.5 - 5.0 g/dL [facility] Work Phone: ALP (Bld) [Catalytic activity/Vol] 77 U/L 38 - 126 U/L [facility] Work Phone: ALT [Catalytic activity/Vol] 34 U/L 0 - 49 U/L [facility] Work Phone: Comment on above: The ALT test is perf ormed by an updated assay method. Please note that the reference intervals have been changed and are now sex specific. Anion gap [Moles/Vol] 11 mmol/L 3 - 13 mmol/L [facility] Work Phone: AST [Catalytic activity/Vol] 56 U/L High 15 - 46 U/L [facility] Work Phone: Comment on above: Slightly hemolysed, interpret with caution. Bilirubin [Mass/Vol] 0.9 mg/dL 0.2 - 1 .3 mg/dL [facility] Work Phone: Calcium [Mass/Vol] 9.9 mg/dL 8.4 - 10. 4 mg/dL [facility] Work Phone: Chloride [Moles/Vol] 98 mmol/L 98 - 10 7 mmol/L [facility] Work Phone: CO2 [Moles/Vol] 26 mmol/L 22 - 30 mmol/L [facility] Work Phone: Creatinine [Mass/Vol] 1.16 mg/dL 0.52 - 1.25 mg/dL [facility] Work Phone: EGFR IF NonAfrican [place] 68.0 mL/min >60 [facility] Work Phone: Comment on above: KDIGO guidelines [...] g/dL High 6.3 - 8.2 g/dL [facility] Work Phone: [phone] GFR/1.73 sq M.predicted among blacks MDRD (S/P/Bld) [Vol rate/Area] 78.9 mL/min/{1.73_m2} >60 [facility] Work Phone: [phone] Glucose [Mass/Vol] 285 mg/dL High 70 - 100 mg/dL [facility] Work Phone: [phone] Interpretation and review of laboratory results Abnormal [facility] Work Phone: [phone] Potassium [Moles/Vol] 4.4 mmol/L 3.5 - 5.1 mmol/L [facility] Work Phone: [phone] Comment on above: Slightly hemolysed, interpret with caution. Sodium [Moles/Vol] 135 mmol/L 135 - 145 mmol/L [facility] Work Phone: [phone] Urea nitrogen (BldV) [Mass/Vol] 22 mg/dL High 7 - 20 mg/dL [facility] Work Phone: [phone] Test Performed by [facility], [address] [place], [place] [address] [place] [address] [facility] Work Phone: [phone] [facility] Work Phone: [phone] Hemogram (CBC) w/Auto DiffOr dered By: Meredith Tinoco on 10-07-2020 Absolute Baso # 0.1 10*3/uL 0.0 - 0.2 10*3/uL [facility] Work Phone: [phone] Absolute Neut # 5.8 10*3/uL 1.8 - 7.0 10*3/uL [facility] Work Phone: [phone] Basophils/100 WBC (Bld) 0.8 % 0.0 - 2.0 % [facility] Work Phone: [phone] Eosinophils (Bld) [#/Vol] 0.3 10*3/uL 0.0 - 0.5 10*3/uL [facility] Work Phone: [phone] Eosinophils/100 WBC (Bld) 2.9 % 1.0 - 6.0 % [facility] Work Phone: [phone] Granulocytes/100 WBC (Bld) 56.3 % 40.0 - 80.0 % [facility] Work Phone: [phone] Hematocrit (Bld) [Volume fraction] 46.2 % 40.0 - 52.0 % [facility] Work Phone: [phone] Hemoglobin.gastrointes tinal spec 1 Ql (Stl) 15.8 g/dL 13.0 - 18.0 g/dL [facility] Work Phone: [phone] Interpretation and review of laboratory results Abnormal [facility] Work Phone: [phone] Lymphocytes (Bld) [#/Vol] 2.8 10*3/uL 1.0 - 4.3 10*3/uL [facility] Work Phone: [phone] Lymphocytes/100 WBC (Bld) 27.6 % 20.0 - 40.0 % [facility] Work Phone: [phone] MCH (RBC) [Entitic mass] 30.1 pg 26.0 - 34.0 pg [facility] Work Phone: [phone] MCHC (RBC) [Mass/Vol] 34.2 % 32.0 - 36.0 % [facility] Work Phone: [phone] MCV (RBC) [Entitic vol] 88.0 fL 80.0 - 98.0 fL [facility] Work Phone: [phone] Monocytes (Bld) [#/Vol] 1.3 10*3/uL High 0.0 - 0.8 10*3/uL [facility] Work Phone: [phone] Monocytes/100 WBC (Bld) 12.4 % High 2.0 - 10.0 % [facility] Work Phone: [phone] Platelet distribution width (Bld) [Ratio] 13.7 % 11.5 - 14.5 % [facility] Work Phone: [phone] Platelet mean volume (Bld) [Entitic vol] 8.4 fL 7.4 - 10.4 fL [facility] Work Phone: [phone] Platelets (Bld) [#/Vol] 233 10*3/uL 140 - 440 10*3/uL [facility] Work Phone: [phone] RBC (Bld) [#/Vol] 5.24 10*6/uL 4.40 - 5.90 10*6/uL [facility] Work Phone: WBC (Bld) [#/Vol] 10.3 10*3/uL 3.6 - 10.7 10*3/uL [facility] Work Phone: Test Performed by [facility], [address] , [place], [place] [address] [facility] Work Phone: [facility] Work Phone: Hemogram w/ Autodiffon 10-07 Abs Baso Cnt 0.1 10*3/uL Normal 0.0-0.2 [facility] Comment on above: Performed By: #### H EMDF, CMP3, LACT3 #### [facility] [address] [place] [address] Abs Neutrophile Cnt 5.8 10*3/uL Normal 1.8-7.0 [facility] Comment on above: Performed By: #### H EMDF, CMP3, LACT3 #### [facility] [address] [place] [address] Basophils/100 WBC (Bld) 0.8 % Normal 0.0-2.0 [facility] Comment on above: Performed By: #### H EMDF, CMP3, LACT3 #### [facility] [address] [place] [address] Eosinophils (Bld) [#/Vol] 0.3 10*3/uL Normal 0.0-0.5 [facility] Comment on above: Performed By: #### H EMDF, CMP3, LACT3 #### [facility] [address] [place] [address] Eosinophils/100 WBC (Bld) 2.9 % Normal 1.0-6.0 [facility] Comment on above: Performed By: #### H EMDF, CMP3, LACT3 #### [facility] [address] [place] [address] Erythrocyte distribution width (RBC) [Ratio] 13.7 % Normal 11.5-14.5 [facility] Comment on above: Performed By: #### H EMDF, CMP3, LACT3 #### [facility] [address] [place] [address] Granulocytes/100 WBC (Bld) 56.3 % Normal 40.0-80.0 [facility] Comment on above: Performed By: #### H EMDF, CMP3, LACT3 #### [facility] [address] [place] [address] Hematocrit (Bld) [Volume fraction] 46.2 % Normal 40.0-52.0 [facility] Comment on above: Performed By: #### H EMDF, CMP3, LACT3 #### [facility] [address] [place] [address] Hemoglobin (Bld) [Mass/Vol] 15.8 g/dL Normal 13.0-18.0 [facility] Comment on above: Performed By: #### H EMDF, CMP3, LACT3 #### [facility] [address] [place] [address] Lymphocytes (Bld) [#/Vol] 2.8 10*3/uL Normal 1.0-4.3 [facility] Comment on above: Performed By: #### H EMDF, CMP3, LACT3 #### [facility] [address] [place] [address] Lymphocytes/100 WBC (Bld) 27.6 % Normal 20.0-40.0 [facility] Comment on above: Performed By: #### H EMDF, CMP3, LACT3 #### [facility] [address] [place] [address] MCH (RBC) [Entitic mass] 30.1 pg Normal 26.0-34.0 [facility] Comment on above: Performed By: #### H EMDF, CMP3, LACT3 #### [facility] [address] [place] [address] MCHC 34.2 % Normal 32.0-36.0 [facility] Comment on above: Performed By: #### H EMDF, CMP3, LACT3 #### [facility] [address] [place] [address] MCV (RBC) [Entitic vol] 88.0 fL Normal 80.0-98.0 [facility] Comment on above: Performed By: #### H EMDF, CMP3, LACT3 #### [facility] [address] [place] [address] Monocytes (Bld) [#/Vol] 1.3 10*3/uL High 0.0-0.8 [facility] Comment on above: Performed By: #### H EMDF, CMP3, LACT3 #### [facility] [address] [place] [address] Monocytes/100 WBC (Bld) 12.4 % High 2.0-10.0 [facility] Comment on above: Performed By: #### H EMDF, CMP3, LACT3 #### [facility] [address] [place] [address] Platelet mean volume (Bld) [Entitic vol] 8.4 fL Normal 7.4-10.4 [facility] Comment on above: Performed By: #### H EMDF, CMP3, LACT3 #### [facility] [address] [place] [address] Platelets (Bld) [#/Vol] 233 10*3/uL Normal 140-440 [facility] Comment on above: Performed By: #### H EMDF, CMP3, LACT3 #### [facility] [address] [place] [address] RBC (Bld) [#/Vol] 5.24 10*6/uL Normal 4.40-5.90 [facility] Comment on above: Performed By: #### H EMDF, CMP3, LACT3 #### [facility] [address] [place] [address] WBC (Bld) [#/Vol] 10.3 10*3/uL Normal 3.6-10.7 [facility] Comment on above: Performed By: #### H EMDF, CMP3, LACT3 #### [facility] [address] [place] [address] Lactic Acidon 10-07-2020 Lactate [Moles/Vol] 1.6 mmol/L Normal 0.7-2.0 [facility] Comment on above: Performed By: #### H EMDF, CMP3, LACT3 #### [facility] [address] [place] [address] Lactic Acid, PlasmaOrdered B y: Meredith Tinoco on 10-07-2020 Lactate [Moles/Vol] 1.6 mmol/L 0.7 - 2. 0 mmol/L [facility] Work Phone: Test Performed by [facility], [address] , [place], [place] [address] [employer] Work Phone: [facility] Work Phone: XR FOOT LEFT (MIN 3 VIEWS)Or dered By: Meredith Tinoco on 10-07-2020 Patient Name: ISA GERONIMO Diagnostic Radiology ACCESSION EXAM DATE/TIME PROCEDURE ORDERING PROVIDER [id number] 10/07/2020 11:39 EDT CR Foot Complete 3+ MD TINOCO DAVID L Views Left CPT code 08599 Reason For Exam (CR Foot Complete 3+ [...] Transcribed Date and Time: 10/07/2020 12:03 [facility] Work Phone: [facility], [facility] Incoming Rad[facility] Results From [facility] - 10/07/2020 12:03 PM EDT [facility]: [id number] Radiology ACCESSION EXAM DATE/TIME PROCEDURE ORDERING PROVIDER [id number] 10/07/2020 11:39 EDT CR Foot Complete 3+ MD TINOCO DAVID L Views Left CPT code 35519 Reason For Exam (CR Foot Complete 3+ [...] ALFRED Transcribed Date and Time: 10/07/2020 12:03 [facility] Work Phone: [facility] Work Phone: Comprehensive Metabolic Pane lOrdered By: Chalino Jackson on 05-08-2019 Albumin [Mass/Vol] 4.9 g/dL 3.5 - 5 g/dL [facility] Work Phone: ALP [Catalytic activity/Vol] 77 U/L 38 - 126 U/L [facility] Work Phone: ALT [Catalytic activity/Vol] 69 U/L 13 - 69 U/L [facility] Work Phone: Anion gap [Moles/Vol] 16 mmol/L [facility] Work Phone: AST [Catalytic activity/Vol] 61 U/L High 15 - 46 U/L [facility] Work Phone: Bilirubin [Mass/Vol] 0.6 mg/dL 0.2 - 1 .3 mg/dL [facility] Work Phone: Calcium [Mass/Vol] 10.0 mg/dL 8.4 - 10. 4 mg/dL [facility] Work Phone: [phone] Chloride [Moles/Vol] 103 mmol/L 98 - 10 7 mmol/L [facility] Work Phone: [phone] CO2 [Moles/Vol] 20 mmol/L Low 22 - 30 mmol/L [facility] Work Phone: [phone] Creatinine [Mass/Vol] 0.89 mg/dL 0.52 - 1.25 mg/dL [facility] Work Phone: [phone] EGFR IF NonAfrican R[place]an >60.0 >60 mL/min [facility] Work Phone: [phone] Comment on above: Source- MDRD equatio n with creatinine calibration to IDMS(NKDEP) eGFR not recommended for drug dose adjustment GFR/1.73 sq M.predicted among blacks MDRD (S/P/Bld) [Vol rate/Area] mL/min/{1.73_m2} >60 mL/min [facility] Work Phone: [phone] Glucose [Mass/Vol] 292 mg/dL High 70 - 100 mg/dL [facility] Work Phone: [phone] Interpretation and review of laboratory results Abnormal [facility] Work Phone: [phone] Potassium [Moles/Vol] 4.0 mmol/L 3.5 - 5.1 mmol/L [facility] Work Phone: [phone] Protein [Mass/Vol] 8.1 g/dL 6.3 - 8.2 g/dL [facility] Work Phone: [phone] Sodium [Moles/Vol] 139 mmol/L 135 - 145 mmol/L [facility] Work Phone: [phone] Urea nitrogen [Mass/Vol] 12 mg/dL 7 - 20 mg/dL [facility] Work Phone: [phone] Test Performed by [facility] [address] , [place] [id number] [facility] Work Phone: [phone] Hemogram (CBC) w/Auto DiffOr dered By: Chalino Jackson on 05-08-2019 Absolute Baso # 0.1 10*3/uL 0 - 0.2 10*3/uL [facility] Work Phone: [phone] Absolute Neut # 6.8 10*3/uL 1.8 - 7 10*3/uL [facility] Work Phone: [phone] Basophils/100 WBC (Bld) 0.9 % 0 - 2 % [facility] Work Phone: [phone] Eosinophils (Bld) [#/Vol] 0.3 10*3/uL 0 - 0.5 10*3/uL [facility] Work Phone: [phone] Eosinophils/100 WBC (Bld) 2.8 % 1 - 6 % [facility] Work Phone: [phone] Erythrocyte distribution width (RBC) [Ratio] 14.1 % 11.5 - 14.5 % [facility] Work Phone: [phone] Granulocytes/100 WBC (Bld) 66.2 % 40 - 80 % [facility] Work Phone: [phone] Hematocrit (Bld) [Volume fraction] 48.2 % 40 - 52 % [facility] Work Phone: [phone] Hemoglobin (Bld) [Mass/Vol] 16.7 g/dL 13 - 18 g/dL [facility] Work Phone: [phone] Interpretation and review of laboratory results Abnormal [facility] Work Phone: [phone] Lymphocytes (Bld) [#/Vol] 2.2 10*3/uL 1 - 4.3 10*3/uL [facility] Work Phone: [phone] Lymphocytes/100 WBC (Bld) 21.8 % 20 - 40 % [facility] Work Phone: [phone] MCH (RBC) [Entitic mass] 30.0 pg 26 - 34 pg [facility] Work Phone: [phone] MCHC 34.6 % 32 - 36 % [facility] Work Phone: [phone] MCV (RBC) [Entitic vol] 86.7 fL 80 - 98 fL [facility] Work Phone: [phone] Monocytes (Bld) [#/Vol] 0.9 10*3/uL High 0 - 0.8 10*3/uL [facility] Work Phone: [phone] Monocytes/100 WBC (Bld) 8.3 % 2 - 10 % [facility] Work Phone: Platelet mean volume (Bld) [Entitic vol] 9.1 fL 7.4 - 10.4 fL [facility] Work Phone: [phone] Platelets (Bld) [#/Vol] 223 10*3/uL 140 - 440 10*3/uL [facility] Work Phone: [phone] RBC (Bld) [#/Vol] 5.56 10*6/uL 4.4 - 5.9 10*6/uL [facility] Work Phone: WBC (Bld) [#/Vol] 10.3 10*3/uL 3.6 - 10.7 10*3/uL [facility] Work Phone: Test Performed by [facility], [address] , [place] [address] [facility] Work Phone: Lactic Acid, PlasmaOrdered B y: Chalino Jackson on 05-08-2019 Interpretation and review of laboratory results Abnormal [facility] Work Phone: Lactate [Moles/Vol] 3.1 mmol/L Critically high 0.7 - 2 mmol/L [facility] Work Phone: Test Performed by [employer], [address] , [place] [address] [facility] Work Phone: Rapid influenza A/B antigens Ordered By: Chalino Jackson on 05-08-2019 INFLUENZA A Not detected Not Detected NA [facility] Work Phone: INFLUENZA B Not detected Not Detected NA [facility] Work Phone: Comment on above: Method: Isothermal n ucleic acid amplification technology. Test Performed by [facility], [address] , [place] [address] [facility] Work Phone: XR CHEST STANDARD (2 VW)Orde red By: Chalino Jackson on 05-08-2019 Patient Name: ISA GERONIMO ---Diagnostic Radiology--- Exam Date/Time 05/08/2019 13:31:56 EST Exam CR Chest PA/LAT Ordering Physician CorneliaAdelfo JARRETRENETTA, CHALINO Accession Number [id number] CPT4 Codes 29871 () Reason For Exam cough Report PA [...] and Time: 05/08/2019 1:45 [facility] Work Phone: [facility] Incoming Radiology Results From [facility] - 05/08/2019 1:46 PM EST Patient Name: ISA MAYEN ---Diagnostic Radiology--- Exam Date/Time 05/08/2019 13:31:56 EST Exam CR Chest PA/LAT Ordering Physician CorneliaAdelfo CHALINO CRANDALL Accession Number [id number] CPT4 Codes 53727 () Reason For Exam cough Report PA [...] Phone: BENZODIAZEPINES CONF,URINEon 07-11-2017 7-AMINOCLONAZEPAM <5 Normal [facility] Comment on above: Performed By: #### B ENCN ####[facility] [address] [place] [address] ALPHA-HYDROXYALPRAZOLA M <5 Normal [facility] Comment on above: Performed By: #### B ENCN ####[facility] [address] [place] [address] ALPHA-HYRDOXYMIDAZOLAM <20 Normal [facility] Comment on above: Result Comment: Perf ormed by [employer],[address] [facility], [place] [place] [address] spq.Easel, Abiodun Parham MD - Lab. Director Performed By: #### B ENCN ####[facility] [address] [place] [address] ALPRAZOLAM <5 Normal [facility] Comment on above: Performed By: #### B ENCN ####[facility] [address] [place] [address] CHLORDIAZEPOXIDE <20 Normal [facility] Comment on above: Performed By: #### B ENCN ####[facility] [address] [place] [address] CLONAZEPAM <5 Normal [facility] Comment on above: Performed By: #### B ENCN ####[facility] [address] [place] [address] DIAZEPAM <20 Normal [facility] Comment on above: Result Comment: INTE RPRETIVE [...] the laboratory.Test developed and characteristics determined by [email or web address]. See Compliance Statement B: Jaco Solarsi.[employer]/CS Performed By: #### B ENCN ####[facility] [address] [place] [address] LORAZEPAM <20 Normal [facility] Comment on above: Performed By: #### B ENCN ####[facility] [address] [place] [address] MIDAZOLAM <20 Normal [facility] Comment on above: Performed By: #### B ENCN ####[facility] [address] [place] [address] NORDIAZEPAM <20 Normal [facility] Comment on above: Performed By: #### B ENCN ####[facility] [address] [place] [address] OXAZEPAM <20 Normal [facility] Comment on above: Performed By: #### B ENCN ####[facility] [address] [place] [address] TEMAZEPAM <20 Normal [facility] Comment on above: Performed By: #### B ENCN ####[facility] [address] [place] [address] OPIATE CONFIRMATION,URINEon 07-10-2017 Acetaminophen mass conc <10 Normal [facility] Comment on above: Result Comment: INTE RPRETIVE [...] the laboratory.Test developed and characteristics determined by [facility]. See Compliance Statement B: Easel/ Performed By: #### O PIC2 ####[facility] [address] [place] [address] CODEINE 70 ng/mL Normal [facility] Comment on above: Result Comment: Cons istent with use of a drug containing codeine. Performed By: #### O PIC2 ####[facility] [facility] [address] HYDROCODONE <20 Normal [facility] Comment on above: Performed By: #### O PIC2 ####[facility] [place] [address] HYDROMORPHONE <20 Normal [facility] Comment on above: Performed By: #### O PIC2 ####[facility] E[address]fs[address] [place] [address] MORPHINE <20 Normal [facility] Comment on above: Performed By: #### O PIC2 ####[facility] [place] [address] NORHYDROCODONE <20 Normal [facility] Comment on above: Result Comment: Perf ormed by [employer],[address] [place] [address] rkq.Easel, Abiodun Parham MD - Lab. Director Performed By: #### O PIC2 ####[facility] St[address] [facility] [place] [address] NOROXYCODONE 97 ng/mL Normal [facility] Comment on above: Result Comment: Noro xycodone is a metabolite of oxycodone; consistent with use ofa drug containing oxycodone. Performed By: #### O PIC2 ####[facility] N[address] [place] [address] NOROXYMORPHONE 27 ng/mL Normal [facility] Comment on above: Result Comment: Noro xymorphone is a metabolite of oxymorphone and naloxone(nornaloxone); consistent with use of a drug containingoxymorphone or naloxone. Oxymorphone may also be a metabolite ofoxycodone. Performed By: #### O PIC2 ####[facility] [address] [place] [address] OXYCODONE <20 Normal [facility] Comment on above: Performed By: #### O PIC2 ####[facility] [address] [place] [address] OXYMORPHONE <20 Normal [facility] Comment on above: Performed By: #### O PIC2 ####[facility] [address]bs[address] [place] [address] BUPRENORPHINE SCREEN TO CONF IRM,URINEon 07-09-2017 BUPRENORPHINE SCREEN,INTERP. See Note Normal [facility] Comment on above: Result Comment: INTE RPRETIVE [...] forensic use.Test developed and characteristics determined by [facility]. See Compliance Statement B: Easel/CSPerformed by [employer],[address] [facility], [place] [place] [address] euy.Easel, Abiodun Parham MD - Lab. Director Performed By: #### B UPRS ####[facility] [address]vi[address] [place] [address] BUPRENORPHINE SCREEN,URINE Negative Normal Cutoff 5 [facility] Comment on above: Performed By: #### B UPRS ####[facility] [address] [place] [address] DRUG SCREEN,PAIN MANAGEMENTo n 07-05-2017 Amphetamines Ql (U) Negative Normal NEGATIVE [facility] Comment on above: Result Comment: CUTO FF LEVEL: 500 NG/ML Deputy Director Of Finance drug: d-Methamphetamine Cross-reactivity has been reported with high concentrations of the following drugs: buproprion, chloroquine, chlorpromazine, ephedrine, mephentermine, fenfluramine, phentermine, phenylpropanolamine, pseudoephedrine, and propranolol. Performed By: #### D SPMT ####[facility] [place] [address] Benzodiazepines Screen Ql (U) Negative Normal NEGATIVE [facility] Comment on above: Result Comment: CUTO FF LEVEL:200 NG/ML Deputy Director Of Finance drug: LormetazepamBenzodiazepine Confirmatory testing has been sent to a reference laboratoryand will be reported separately. Although the benzodiazepine screening testprovides rapid results; the confirmatory test provide the most sensitive andspecific assessment of drug presence or absence in the urine. Performed By: #### D SPMT ####[facility] [place] [address] Cannabinoids Screen Ql (U) Negative Normal NEGATIVE [facility] Comment on above: Result Comment: CUTO FF LEVEL:50 NG/ML Deputy Director Of Finance dru00-zbq-ztboy4-THC-9carboxylic acid Performed By: #### D SPMT ####[facility] [place] [address] COCAINE METABOLITE Negative Normal NEGATIVE [facility] Comment on above: Result Comment: CUTO FF LEVEL: 150 NG/ML Deputy Director Of Finance drug: Benzoylecgonine(cocaine metabolite) Performed By: #### D SPMT ####[facility] [place] [address] DRUG SCREEN COMMENT. SEE BELOW Normal [facility] Comment on above: Result Comment: POSI TIVE CUTOFFS ARE BASED ON REACTIVITY WITH A SUPERVISOR [employer]ANING MEMBER OF DRUG CLASS. MEMBERS OF THE [...] TESTING OR PATHOLOGIST CONSULTATION, CALL LABORATORY AT [phone]. Performed By: #### D SPMT ####[facility] [place] [address] Methadone Ql (U) Negative Normal NEGATIVE [facility] Comment on above: Result Comment: CUTO FF LEVEL: 150 NG/ML Deputy Director Of Finance drug: Methadone The metabolite A-xzxur-pwzmgvsnaptumt (LAAM) is not detected by this method in concentrations that would be found in the urine of patients on LAAM therapy. Performed By: #### D SPMT ####[facility] [id number] Opiates Ql (U) Positive Abnormal NEGATIVE [facility] Comment on above: Result Comment: CUTO FF LEVEL: 300 NG/ML Deputy Director Of Finance Drug: Morphine This assay shows poor reactivity [...] the urine. Performed By: #### D SPMT ####[facility] [place] [address] PCP Negative Normal NEGATIVE [facility] Comment on above: Result Comment: CUTO FF LEVEL: 25 NG/ML Deputy Director Of Finance drug: Phencyclidine(PCP) Cross-reactivity has been reported with dextromethorphan. Performed By: #### D SPMT ####[facility] [id number] URINE BARBITURATES Negative Normal NEGATIVE [facility] Comment on above: Result Comment: CUTO FF LEVEL:200 NG/ML Deputy Director Of Finance drug: Secobarbital Performed By: #### D SPMT ####[facility] [id number] BENZODIAZEPINES CONF,URINEon 03-13-2017 7-AMINOCLONAZEPAM <5 Normal [facility] Comment on above: Performed By: #### B ENCN ####[address] [address] ALPHA-HYDROXYALPRAZOLA M <5 Normal [facility] Comment on above: Performed By: #### B ENCN ####[facility] [address] [place] [address] ALPHA-HYRDOXYMIDAZOLAM <20 Normal [facility] Comment on above: Result Comment: Perf ormed by [facility],[address] [facility], [place] [place] [place] [address] omg.Easel, Abiodun Parham MD - Lab. Director Performed By: #### B ENCN ####[facility] [address] [place] [address] ALPRAZOLAM <5 Normal [facility] Comment on above: Performed By: #### B ENCN ####[facility] [address] [place] [address] CHLORDIAZEPOXIDE <20 Normal [facility] Comment on above: Performed By: #### B ENCN ####[facility] [address] [place] [address] CLONAZEPAM <5 Normal [facility] Comment on above: Performed By: #### B ENCN ####[facility] [address] [place] [address] DIAZEPAM <20 Normal [facility] Comment on above: Result Comment: INTE RPRETIVE [...] the laboratory.Test developed and characteristics determined by [facility]. See Compliance Statement B: Easel/ Performed By: #### B ENCN ####[facility] [address] [place] [address] LORAZEPAM <20 Normal [facility] Comment on above: Performed By: #### B ENCN ####[facility] [address] [place] [address] MIDAZOLAM <20 Normal [facility] Comment on above: Performed By: #### B ENCN ####[facility] [address] [place] [address] NORDIAZEPAM <20 Normal [facility] Comment on above: Performed By: #### B ENCN ####[facility] [address] [place] [address] OXAZEPAM <20 Normal [facility] Comment on above: Performed By: #### B ENCN ####[facility] [address] [place] [address] TEMAZEPAM <20 Normal [facility] Comment on above: Performed By: #### B ENCN ####[facility] [address] [place] [address] OPIATE CONFIRMATION,URINEon 03-12-2017 Acetaminophen mass conc <10 Normal [facility] Comment on above: Result Comment: INTE RPRETIVE [...] the laboratory.Test developed and characteristics determined by [facility]. See Compliance Statement B: Easel/CS Performed By: #### O PIC2 ####[facility] [address] [place] [address] CODEINE <20 Normal [facility] Comment on above: Performed By: #### O PIC2 ####[facility] [address] [place] [address] HYDROCODONE <20 Normal [facility] Comment on above: Performed By: #### O PIC2 ####[facility] [address] [place] [address] HYDROMORPHONE <20 Normal [facility] Comment on above: Performed By: #### O PIC2 ####[facility] [address] [place] [address] MORPHINE <20 Normal [facility] Comment on above: Performed By: #### O PIC2 ####[facility] [address] [place] [address] NORHYDROCODONE <20 Normal [facility] Comment on above: Result Comment: Perf ormed by [facility] [employer],[address], [facility] [place] [place] [address] obn.Easel, Abiodun Parham MD - Lab. Director Performed By: #### O PIC2 ####[facility] [address] [place] [address] NOROXYCODONE <20 Normal [facility] Comment on above: Performed By: #### O PIC2 ####[facility] [address] [place] [address] NOROXYMORPHONE <20 Normal [facility] Comment on above: Performed By: #### O PIC2 ####[facility] [address] [place] [address] OXYCODONE <20 Normal [facility] Comment on above: Performed By: #### O PIC2 ####[facility] [address] [place] [address] OXYMORPHONE <20 Normal [facility] Comment on above: Performed By: #### O PIC2 ####[facility] [address] [place] [address] DRUG SCREEN,PAIN MANAGEMENTo n 03-08-2017 Amphetamines Ql (U) Negative Normal NEGATIVE [facility] Comment on above: Result Comment: CUTO FF LEVEL: 500 NG/ML Deputy Director Of Finance drug: d-Methamphetamine Cross-reactivity has been reported with high concentrations of the following drugs: buproprion, chloroquine, chlorpromazine, ephedrine, mephentermine, fenfluramine, phentermine, phenylpropanolamine, pseudoephedrine, and propranolol. Performed By: #### D SPMT ####[facility] [id number] Benzodiazepines Screen Ql (U) Negative Normal NEGATIVE [facility] Comment on above: Result Comment: CUTO FF LEVEL:200 NG/ML Deputy Director Of Finance drug: LormetazepamBenzodiazepine Confirmatory testing has been sent to a reference laboratoryand will be reported separately. Although the benzodiazepine screening testprovides rapid results; the confirmatory test provide the most sensitive andspecific assessment of drug presence or absence in the urine. Performed By: #### D SPMT ####[facility] [place] [address] Cannabinoids Screen Ql (U) Negative Normal NEGATIVE [facility] Comment on above: Result Comment: CUTO FF LEVEL:50 NG/ML Deputy Director Of Finance dru41-omw-cqdyh9-THC-9carboxylic acid Performed By: #### D SPMT ####[facility] [id number] COCAINE METABOLITE Negative Normal NEGATIVE [facility] Comment on above: Result Comment: CUTO FF LEVEL: 150 NG/ML Deputy Director Of Finance drug: Benzoylecgonine(cocaine metabolite) Performed By: #### D SPMT ####[facility] [place] [address] DRUG SCREEN COMMENT. SEE BELOW Normal [facility] Comment on above: Result Comment: POSI TIVE CUTOFFS ARE BASED ON REACTIVITY WITH A SUPERVISOR [employer] CLEANING MEMBER OF DRUG CLASS. MEMBERS OF THE [...] TESTING OR PATHOLOGIST CONSULTATION, CALL LABORATORY AT [phone]. Performed By: #### D SPMT ####[facility] [id number] Methadone Ql (U) Negative Normal NEGATIVE [facility] Comment on above: Result Comment: CUTO FF LEVEL: 150 NG/ML Deputy Director Of Finance drug: Methadone The metabolite J-jaegf-yefrhtdtjgmozh (LAAM) is not detected by this method in concentrations that would be found in the urine of patients on LAAM therapy. Performed By: #### D SPMT ####[facility] [id number] Opiates Ql (U) Negative Normal NEGATIVE [facility] Comment on above: Result Comment: CUTO FF LEVEL: 300 NG/ML Deputy Director Of Finance Drug: Morphine This assay shows poor reactivity [...] the urine. Performed By: #### D SPMT ####[facility] [place] [address] PCP Negative Normal NEGATIVE [facility] Comment on above: Result Comment: CUTO FF LEVEL: 25 NG/ML Deputy Director Of Finance drug: Phencyclidine(PCP) Cross-reactivity has been reported with dextromethorphan. Performed By: #### D SPMT ####[facility] [place] [address] URINE BARBITURATES Negative Normal NEGATIVE [facility] Comment on above: Result Comment: CUTO FF LEVEL:200 NG/ML Deputy Director Of Finance drug: Secobarbital Performed By: #### D SPMT ####[facility] [place] [address] Vital Signs Date Time Vital Sign Value Performing Clinician Facility 01-08-2025 08:30-0400 Body temperature 98 [degF] RICARDO ABRAHAM MD Work Phone: [facility] 01-08-2025 08:30-0400 Diastolic blood pressure 82 mm[Hg] RICARDO ABRAHAM MD Work Phone: [facility] 01-08-2025 08:30-0400 Heart rate 61 /min RICARDO ABRAHAM MD Work Phone: [facility] 01-08-2025 08:30-0400 Respiratory rate 16 /min RICARDO ABRAHAM MD Work Phone: [facility] 01-08-2025 08:30-0400 SaO2% (BldA) [Mass fraction] 100 % RICARDO ABRAHAM MD Work Phone: [facility] 01-08-2025 08:30-0400 Systolic blood pressure 138 mm[Hg] RICARDO ABRAHAM MD Work Phone: [facility] 01-07-2025 14:40-0400 Body height 182.88 cm RICARDO ABRAHAM MD Work Phone: [facility] 01-07-2025 14:40-0400 Body mass index (BMI) [Ratio] 36.3 kg/m2 RICARDO ABRAHAM MD Work Phone: [facility] 01-07-2025 14:40-0400 Body weight 121.5 kg RICARDO ABRAHAM MD Work Phone: [facility] 01-07-2025 14:15-0400 Inhaled oxygen flow rate 4 L/min RICARDO ABRAHAM MD Work Phone: [facility] 12-31-2024 12:59-0400 Body height 185.4 cm [facility] PERFORMANCE IMPROVEMENT MANAGER.BALLING HEAD TENDER Work Phone: [facility] 12-31-2024 12:59-0400 Body mass index (BMI) [Ratio] 36.39 kg/m2 [facility] PERFORMANCE IMPROVEMENT MANAGER.BALLING HEAD TENDER Work Phone: [facility] 12-31-2024 12:59-0400 Body weight 125.1 kg [facility] PERFORMANCE IMPROVEMENT MANAGER.BALLING HEAD TENDER Work Phone: [facility] 12-31-2024 12:59-0400 Diastolic blood pressure 71 mm[Hg] [facility] PERFORMANCE IMPROVEMENT MANAGER.BALLING HEAD TENDER Work Phone: [facility] 12-31-2024 12:59-0400 Heart rate 63 /min [facility] PERFORMANCE IMPROVEMENT MANAGER.[facility] Work Phone: [facility] 12-31-2024 12:59-0400 Respiratory rate 16 /min [facility] PERFORMANCE IMPROVEMENT MANAGER.[facility] Work Phone: [facility] 12-31-2024 12:59-0400 SaO2% (BldA) [Mass fraction] 96 % [facility] PERFORMANCE IMPROVEMENT MANAGER.BALLING HEAD TENDER Work Phone: [facility] 12-31-2024 12:59-0400 Systolic blood pressure 100 mm[Hg] [facility] PERFORMANCE IMPROVEMENT MANAGER.[facility] Work Phone: [facility] 07-02-2024 13:01-0500 Body mass index (BMI) [Ratio] 37.81 kg/m2 [facility] PERFORMANCE IMPROVEMENT MANAGER.[facility] Work Phone: [facility] 07-02-2024 13:01-0500 Body weight 130 kg [facility] PERFORMANCE IMPROVEMENT MANAGER.BALLING HEAD TENDER Work Phone: [facility] 07-02-2024 13:01-0500 Diastolic blood pressure 81 mm[Hg] [facility] PERFORMANCE IMPROVEMENT MANAGER.[facility] Work Phone: [facility] 07-02-2024 13:01-0500 Heart rate 77 /min [facility] PERFORMANCE IMPROVEMENT MANAGER.[facility] Work Phone: [facility] 07-02-2024 13:01-0500 SaO2% (BldA) [Mass fraction] 96 % [facility] PERFORMANCE IMPROVEMENT MANAGER.BALLING HEAD TENDER Work Phone: [facility] 07-02-2024 13:01-0500 Systolic blood pressure 144 mm[Hg] [facility] PERFORMANCE IMPROVEMENT MANAGER.[facility] Work Phone: [facility] 12-31-2023 12:55-0400 Body height 185.4 cm [facility] PERFORMANCE IMPROVEMENT MANAGER.[facility] Work Phone: [facility] 12-31-2023 12:55-0400 Body mass index (BMI) [Ratio] 42.12 kg/m2 [facility] PERFORMANCE IMPROVEMENT MANAGER.BALLING HEAD TENDER Work Phone: [facility] 12-31-2023 12:55-0400 Body weight 144.8 kg [facility] PERFORMANCE IMPROVEMENT MANAGER.BALLING HEAD TENDER Work Phone: [facility] 12-31-2023 12:55-0400 Diastolic blood pressure 97 mm[Hg] [facility] PERFORMANCE IMPROVEMENT MANAGER.BALLING HEAD TENDER Work Phone: [facility] 12-31-2023 12:55-0400 Heart rate 68 /min [facility] PERFORMANCE IMPROVEMENT MANAGER.BALLING HEAD TENDER Work Phone: [facility] 12-31-2023 12:55-0400 SaO2% (BldA) [Mass fraction] 95 % [facility] PERFORMANCE IMPROVEMENT MANAGER.BALLING HEAD TENDER Work Phone: [facility] 12-31-2023 12:55-0400 Systolic blood pressure 148 mm[Hg] [facility] PERFORMANCE IMPROVEMENT MANAGER.BALLING HEAD TENDER Work Phone: [facility] 12-11-2023 14:46-0400 Diastolic blood pressure 71 mm[Hg] Reji Mansfield MD Work Phone: [facility] 12-11-2023 14:46-0400 Heart rate 49 /min Reji Mansfield MD Work Phone: [facility] 12-11-2023 14:46-0400 Respiratory rate 20 /min Reji Mansfield MD Work Phone: [facility] 12-11-2023 14:46-0400 SaO2% (BldA) [Mass fraction] 96 % Reji Mansfield MD Work Phone: [facility] 12-11-2023 14:46-0400 Systolic blood pressure 122 mm[Hg] Reji Mansfield MD Work Phone: [facility] 12-11-2023 10:49-0400 Body temperature 96.8 [degF] Reji Mansfield MD Work Phone: [facility] 12-06-2023 13:26-0400 Body height 185.4 cm Pacc 1 Work Phone: [facility] 12-06-2023 13:26-0400 Body mass index (BMI) [Ratio] 41.56 kg/m2 Pacc 1 Work Phone: [facility] 12-06-2023 13:26-0400 Body temperature 96.49 [degF] Pacc 1 Work Phone: [facility] 12-06-2023 13:26-0400 Body weight 142.88 kg Pacc 1 Work Phone: [facility] 12-06-2023 13:26-0400 Diastolic blood pressure 72 mm[Hg] Pacc 1 Work Phone: [facility] 12-06-2023 13:26-0400 Heart rate 68 /min Pacc 1 Work Phone: [facility] 12-06-2023 13:26-0400 Respiratory rate 14 /min Pacc 1 Work Phone: [facility] 12-06-2023 13:26-0400 SaO2% (BldA) [Mass fraction] 96 % Pacc 1 Work Phone: [facility] 12-06-2023 13:26-0400 Systolic blood pressure 122 mm[Hg] Pacc 1 Work Phone: [facility] 07-18-2023 12:15-0400 Body temperature 98 [degF] MD RICARDO ABRAHAM Work Phone: [facility] 07-18-2023 12:15-0400 Diastolic blood pressure 77 mm[Hg] MD RICARDO ABRAHAM Work Phone: [facility] 07-18-2023 12:15-0400 Heart rate 86 /min MD RICARDO ABRAHAM Work Phone: [facility] 07-18-2023 12:15-0400 Respiratory rate 18 /min MD RICARDO ABRAHAM Work Phone: [facility] 07-18-2023 12:15-0400 SaO2% (BldA) [Mass fraction] 95 % MD RICARDO ABRAHAM Work Phone: [facility] 07-18-2023 12:15-0400 Systolic blood pressure 140 mm[Hg] MD RICARDO ABRAHAM Work Phone: [facility] 07-18-2023 08:11-0400 Body temperature 97.9 [degF] MD RICARDO ABRAHAM Work Phone: [facility] 07-18-2023 08:11-0400 Diastolic blood pressure 67 mm[Hg] MD RICARDO ABRAHAM Work Phone: [facility] 07-18-2023 08:11-0400 Heart rate 75 /min MD RICARDO ABRAHAM Work Phone: [facility] 07-18-2023 08:11-0400 Respiratory rate 18 /min MD RICARDO ABRAHAM Work Phone: [facility] 07-18-2023 08:11-0400 SaO2% (BldA) [Mass fraction] 98 % MD RICARDO ABRAHAM Work Phone: [facility] 07-18-2023 08:11-0400 Systolic blood pressure 143 mm[Hg] MD RICARDO ABRAHAM Work Phone: [facility] 07-17-2023 16:23-0400 Body height 182.88 cm MD RICARDO ABRAHAM Work Phone: [facility] 07-17-2023 16:23-0400 Body mass index (BMI) [Ratio] 44.5 kg/m2 MD RICARDO ABRAHAM Work Phone: [facility] 07-17-2023 16:23-0400 Body weight 149 kg MD RICARDO ABRAHAM Work Phone: [facility] 07-17-2023 13:00-0400 Inhaled oxygen flow rate 4 L/min MD RICARDO ABRAHAM Work Phone: [facility] 12-21-2022 11:28-0400 Body temperature 98.3 [degF] [facility] 12-21-2022 11:28-0400 Diastolic blood pressure 61 mm[Hg] [facility] 12-21-2022 11:28-0400 Heart rate 69 /min [facility] 12-21-2022 11:28-0400 Respiratory rate 16 /min [facility] 12-21-2022 11:28-0400 SaO2% (BldA) [Mass fraction] 92 % [facility] 12-21-2022 11:28-0400 Systolic blood pressure 117 mm[Hg] [facility] 12-21-2022 07:03-0400 Body height 185.42 cm [facility] 12-21-2022 07:03-0400 Body mass index (BMI) [Ratio] 42.6 kg/m2 [facility] 12-21-2022 07:03-0400 Body weight 146.51 kg [facility] 08-24-2022 11:57-0400 Body height 185.4 cm [facility] PERFORMANCE IMPROVEMENT MANAGER.BALLING HEAD TENDER Work Phone: [facility] 08-24-2022 11:57-0400 Body weight 152.86 kg [facility] PERFORMANCE IMPROVEMENT MANAGER.BALLING HEAD TENDER Work Phone: [facility] 08-24-2022 11:57-0400 Diastolic blood pressure 78 mm[Hg] [facility] PERFORMANCE IMPROVEMENT MANAGER.BALLING HEAD TENDER Work Phone: [facility] 08-24-2022 11:57-0400 Heart rate 73 /min [facility] PERFORMANCE IMPROVEMENT MANAGER.BALLING HEAD TENDER Work Phone: [facility] 08-24-2022 11:57-0400 SaO2% (BldA) [Mass fraction] 97 % [facility] PERFORMANCE IMPROVEMENT MANAGER.BALLING HEAD TENDER Work Phone: [facility] 08-24-2022 11:57-0400 Systolic blood pressure 127 mm[Hg] [facility] PERFORMANCE IMPROVEMENT MANAGER.BALLING HEAD TENDER Work Phone: [facility] 06-29-2022 11:57-0500 Body height 185.4 cm [facility] PERFORMANCE IMPROVEMENT MANAGER.BALLING HEAD TENDER Work Phone: [facility] 06-29-2022 11:57-0500 Body weight [facility].22 [facility] PERFORMANCE IMPROVEMENT MANAGER.BALLING HEAD TENDER Work Phone: [facility] 06-29-2022 11:57-0500 Diastolic blood pressure 74 mm[Hg] [facility] PERFORMANCE IMPROVEMENT MANAGER.BALLING HEAD TENDER Work Phone: [facility] 06-29-2022 11:57-0500 Heart rate 78 /min [facility] PERFORMANCE IMPROVEMENT MANAGER.BALLING HEAD TENDER Work Phone: [facility] 06-29-2022 11:57-0500 SaO2% (BldA) [Mass fraction] 98 % [facility] PERFORMANCE IMPROVEMENT MANAGER.BALLING HEAD TENDER Work Phone: [facility] 06-29-2022 11:57-0500 Systolic blood pressure 131 mm[Hg] [facility] PERFORMANCE IMPROVEMENT MANAGER.BALLING HEAD TENDER Work Phone: [facility] 06-01-2022 12:20-0500 Body temperature 98.1 [degF] [facility] 06-01-2022 12:20-0500 Diastolic blood pressure 64 mm[Hg] [facility] 06-01-2022 12:20-0500 Heart rate 68 /min [facility] 06-01-2022 12:20-0500 Respiratory rate 16 /min [facility] 06-01-2022 12:20-0500 SaO2% (BldA) [Mass fraction] 95 % [facility] 06-01-2022 12:20-0500 Systolic blood pressure 112 mm[Hg] [facility] 06-01-2022 09:51-0500 Body height 185.42 cm [facility] 06-01-2022 09:51-0500 Body mass index (BMI) [Ratio] 46.5 kg/m2 [facility] 06-01-2022 09:51-0500 Body weight 160.11 kg [facility] 05-25-2022 12:13-0500 Body height 180.6 cm [facility] PERFORMANCE IMPROVEMENT MANAGER.BALLING HEAD TENDER Work Phone: [facility] 05-25-2022 12:13-0500 Body weight 154.22 kg [facility] PERFORMANCE IMPROVEMENT MANAGER.BALLING HEAD TENDER Work Phone: [facility] 05-25-2022 12:13-0500 Diastolic blood pressure 81 mm[Hg] [facility] PERFORMANCE IMPROVEMENT MANAGER.BALLING HEAD TENDER Work Phone: [facility] 05-25-2022 12:13-0500 Heart rate 75 /min [facility] PERFORMANCE IMPROVEMENT MANAGER.BALLING HEAD TENDER Work Phone: [facility] 05-25-2022 12:13-0500 Respiratory rate 16 /min [facility] PERFORMANCE IMPROVEMENT MANAGER.BALLING HEAD TENDER Work Phone: [facility] 05-25-2022 12:13-0500 SaO2% (BldA) [Mass fraction] 94 % [facility] PERFORMANCE IMPROVEMENT MANAGER.BALLING HEAD TENDER Work Phone: [facility] 05-25-2022 12:13-0500 Systolic blood pressure 122 mm[Hg] [facility] PERFORMANCE IMPROVEMENT MANAGER.BALLING HEAD TENDER Work Phone: [facility] 05-15-2022 11:01-0500 Body temperature 96 [degF] [facility] 05-15-2022 11:01-0500 Diastolic blood pressure 68 mm[Hg] [facility] 05-15-2022 11:01-0500 Heart rate 80 /min [facility] 05-15-2022 11:01-0500 Respiratory rate 18 /min [facility] 05-15-2022 11:01-0500 Systolic blood pressure 119 mm[Hg] [facility] 05-01-2022 11:35-0500 Body temperature 97.8 [degF] [facility] 05-01-2022 11:35-0500 Diastolic blood pressure 84 mm[Hg] [facility] 05-01-2022 11:35-0500 Heart rate 84 /min [facility] 05-01-2022 11:35-0500 Respiratory rate 16 /min [facility] 05-01-2022 11:35-0500 Systolic blood pressure 146 mm[Hg] [facility] 04-03-2022 11:11-0500 Body temperature 96.9 [degF] [facility] 04-03-2022 11:11-0500 Diastolic blood pressure 72 mm[Hg] [facility] 04-03-2022 11:11-0500 Heart rate 87 /min [facility] 04-03-2022 11:11-0500 Respiratory rate 20 /min [facility] 04-03-2022 11:11-0500 Systolic blood pressure 131 mm[Hg] [facility] 02-27-2022 11:30-0400 Body temperature 97.2 [degF] [facility] 02-27-2022 11:30-0400 Diastolic blood pressure 78 mm[Hg] [facility] 02-27-2022 11:30-0400 Heart rate 82 /min [facility] 02-27-2022 11:30-0400 Systolic blood pressure 126 mm[Hg] [facility] 02-06-2022 11:29-0400 Respiratory rate 16 /min [facility] 01-10-2022 14:21-0400 Body temperature 96.7 [degF] [facility] Work Phone: 01-10-2022 14:21-0400 Diastolic blood pressure 82 mm[Hg] [facility] Work Phone: 01-10-2022 14:21-0400 Heart rate 77 /min [facility] Work Phone: 01-10-2022 14:21-0400 Respiratory rate 20 /min [facility] Work Phone: 01-10-2022 14:21-0400 Systolic blood pressure 169 mm[Hg] [facility] Work Phone: 01-03-2022 14:51-0400 Body temperature 97.1 [degF] [facility] Work Phone: 01-03-2022 14:51-0400 Diastolic blood pressure 77 mm[Hg] [facility] Work Phone: 01-03-2022 14:51-0400 Heart rate 77 /min [facility] Work Phone: 01-03-2022 14:51-0400 Respiratory rate 18 /min [facility] Work Phone: 01-03-2022 14:51-0400 Systolic blood pressure 165 mm[Hg] [facility] Work Phone: 11-29-2021 14:30-0400 Body temperature 96.6 [degF] [facility] Work Phone: 11-29-2021 14:30-0400 Diastolic blood pressure 70 mm[Hg] [facility] Work Phone: 11-29-2021 14:30-0400 Heart rate 75 /min [facility] Work Phone: 11-29-2021 14:30-0400 Respiratory rate 16 /min [facility] Work Phone: 11-29-2021 14:30-0400 Systolic blood pressure 132 mm[Hg] [facility] Work Phone: 11-15-2021 13:58-0400 Diastolic blood pressure 49 mm[Hg] [facility] Work Phone: 11-15-2021 13:58-0400 Heart rate 77 /min [facility] Work Phone: 11-15-2021 13:58-0400 Respiratory rate 16 /min [facility] Work Phone: 11-15-2021 13:58-0400 Systolic blood pressure 124 mm[Hg] [facility] Work Phone: 11-14-2021 14:04-0400 Body height 180.6 cm Sharlene Escobar PERFORMANCE IMPROVEMENT MANAGER.BALLING HEAD TENDER Work Phone: [facility] 11-14-2021 14:04-0400 Body weight 158.31 kg Sharlene Escobar PERFORMANCE IMPROVEMENT MANAGER.BALLING HEAD TENDER Work Phone: [facility] 11-14-2021 14:04-0400 Diastolic blood pressure 71 mm[Hg] [facility] PERFORMANCE IMPROVEMENT MANAGER.[facility] Work Phone: [facility] 11-14-2021 14:04-0400 Heart rate 76 /min [facility] PERFORMANCE IMPROVEMENT MANAGER.BALLING HEAD TENDER Work Phone: [facility] 11-14-2021 14:04-0400 SaO2% (BldA) [Mass fraction] 94 % [facility] PERFORMANCE IMPROVEMENT MANAGER.BALLING HEAD TENDER Work Phone: [facility] 11-14-2021 14:04-0400 Systolic blood pressure 118 mm[Hg] [facility] PERFORMANCE IMPROVEMENT MANAGER.[facility] Work Phone: [facility] 11-03-2021 00:15-0400 Body temperature 98.3 [degF] [facility] Work Phone: 11-01-2021 14:04-0400 Body temperature 98.3 [degF] [facility] Work Phone: 11-01-2021 14:04-0400 Diastolic blood pressure 72 mm[Hg] [facility] Work Phone: 11-01-2021 14:04-0400 Heart rate 75 /min [facility] Work Phone: 11-01-2021 14:04-0400 Respiratory rate 18 /min [facility] Work Phone: 11-01-2021 14:04-0400 Systolic blood pressure 136 mm[Hg] [facility] Work Phone: 09-27-2021 13:19-0400 Body temperature 98.2 [degF] [facility] Work Phone: 09-27-2021 13:19-0400 Diastolic blood pressure 78 mm[Hg] [facility] Work Phone: 09-27-2021 13:19-0400 Heart rate 86 /min [facility] Work Phone: 09-27-2021 13:19-0400 Respiratory rate 20 /min [facility] Work Phone: 09-27-2021 13:19-0400 Systolic blood pressure 134 mm[Hg] [facility] Work Phone: 09-20-2021 13:36-0400 Body temperature 96.9 [degF] [facility] Work Phone: 09-20-2021 13:36-0400 Diastolic blood pressure 69 mm[Hg] [facility] Work Phone: 09-20-2021 13:36-0400 Heart rate 89 /min [facility] Work Phone: 09-20-2021 13:36-0400 Systolic blood pressure 149 mm[Hg] [facility] Work Phone: 09-13-2021 13:58-0400 Respiratory rate 22 /min [facility] Work Phone: 08-30-2021 13:08-0400 Body temperature 97 [degF] [facility] Work Phone: 08-30-2021 13:08-0400 Diastolic blood pressure 85 mm[Hg] [facility] Work Phone: 08-30-2021 13:08-0400 Heart rate 74 /min [facility] Work Phone: 08-30-2021 13:08-0400 Respiratory rate 16 /min [facility] Work Phone: 08-30-2021 13:08-0400 Systolic blood pressure 147 mm[Hg] [facility] Work Phone: 10-07-2020 12:47-0400 Diastolic blood pressure 69 mm[Hg] Meredith Tinoco MD Work Phone: [facility] Work Phone: 10-07-2020 12:47-0400 Heart rate 72 /min Meredith Tinoco MD Work Phone: [facility] Work Phone: 10-07-2020 12:47-0400 Respiratory rate 20 /min Meredith Tinoco MD Work Phone: [facility] Work Phone: 10-07-2020 12:47-0400 SaO2% (BldA) [Mass fraction] 99 % Meredith Tinoco MD Work Phone: [facility] Work Phone: 10-07-2020 12:47-0400 Systolic blood pressure 127 mm[Hg] Meredith Tinoco MD Work Phone: [facility] Work Phone: 10-07-2020 10:46-0400 Body height 185.4 cm Meredith Tinoco MD Work Phone: [facility] Work Phone: 10-07-2020 10:46-0400 Body mass index (BMI) [Ratio] 42.22 kg/m2 Meredith Tinoco MD Work Phone: [facility] Work Phone: 10-07-2020 10:46-0400 Body temperature 98.2 [degF] Meredith Tinoco MD Work Phone: [facility] Work Phone: 10-07-2020 10:46-0400 Body weight 145.15 kg Meredith Tinoco MD Work Phone: [facility] Work Phone: 05-08-2019 15:18-0500 Diastolic blood pressure 77 mm[Hg] Chalino Renetta DO Work Phone: [facility] Work Phone: 05-08-2019 15:18-0500 Heart rate 86 /min Chalino Renetta DO Work Phone: [facility] Work Phone: 05-08-2019 15:18-0500 Respiratory rate 18 /min Chalino Renetta DO Work Phone: [facility] Work Phone: 05-08-2019 15:18-0500 SaO2% (BldA) [Mass fraction] 96 % Chalino Jackson DO Work Phone: [facility] Work Phone: 05-08-2019 15:18-0500 Systolic blood pressure 118 mm[Hg] Chalino Jackson DO Work Phone: [facility] Work Phone: 05-08-2019 12:42-0500 Body temperature 98.6 [degF] Chalino Jackson DO Work Phone: [facility] Work Phone: Encounters Encounter Date Encounter Type Care Provider Facility Start: 03-10-2025 ambulatory [facility] Facility:[facility] Start: 01-14-2025 End: 01-15-2025 [facility] PERFORMANCE IMPROVEMENT MANAGER.BALLING HEAD TENDER Work Phone: Endocrinology Comment on above: Shoulder surgery Start: 01-14-2025 End: 01-15-2025 ambulatory [facility] PERFORMANCE IMPROVEMENT MANAGER.BALLING HEAD TENDER Work Phone: Endocrinology Start: 01-13-2025 Encounter for other preprocedural examination [facility] Start: 01-08-2025 Non-patient / Non-visit Dr. Meredith fuentes MD -[facility] Work Phone: Start: 01-07-2025 Non-patient / Non-visit Dr. Ann villa MD -[facility] Work Phone: Start: 01-07-2025 End: 01-08-2025 ambulatory Miguelito Spittkade Facility:[facility] Start: 01-07-2025 End: 01-08-2025 Evaluation and management of inpatient Dr. Meredith Momin MD -[facility] Work Phone: Start: 01-07-2025 End: 01-08-2025 observation encounter RICARDO ABRAHAM MD Work Phone: -[facility] Start: 12-31-2024 End: 12-31-2024 Patient encounter procedure [facility] PERFORMANCE IMPROVEMENT MANAGER.BALLING HEAD TENDER Work Phone: Endocrinology Comment on above: Type [...] Essential hypertension; Mixed hyperlipidemia; Amyloidosis, unspecified type ([facility]); Obesity, Class II, BMI 35-39.9; Vitamin D deficiency Start: 12-31-2024 End: 12-31-2024 ambulatory SHARLENE ESCOBAR Facility:[facility] Start: 12-11-2024 End: 12-11-2024 ambulatory RICARDO ABRAHAM MD Work Phone: -[facility] Start: 12-11-2024 End: 12-11-[address] Miguelito Garcia DO -[facility] Work Phone: Start: 12-11-2024 End: 12-11-2024 ambulatory RICARDO ABRAHAM Facility:[facility] Start: 11-24-2024 End: 11-24-2024 ambulatory RICARDO ABRAHAM MD Work Phone: -[facility] Start: 11-24-2024 End: 11-24-2024 Patient encounter procedure Edu Haynes PA-C -[facility] Work Phone: Start: 11-24-2024 End: 11-24-2024 ambulatory RICARDO ABRAHAM Facility:[facility] Start: 09-29-2024 End: 09-29-2024 ambulatory Sharlene Escobar PERFORMANCE IMPROVEMENT MANAGER.BALLING HEAD TENDER Work Phone: Endocrinology Comment on above: Meds Start: 07-30-2024 End: 07-30-2024 Telephone encounter Sharlene Escobar APRN.[facility] Work Phone: Endocrinology Comment on above: Office Notes ([facility] [place]) Start: 07-10-2024 End: 07-10-2024 Telephone encounter Sharlene Escobar PERFORMANCE IMPROVEMENT MANAGER.BALLING HEAD TENDER Work Phone: Endocrinology Comment on above: Medication Problem Start: 07-09-2024 End: 07-09-2024 Refill [facility] PERFORMANCE IMPROVEMENT MANAGER.BALLING HEAD TENDER Work Phone: Endocrinology Comment on above: Refill Request Start: 07-07-2024 End: 07-07-2024 Telephone encounter [facility] PERFORMANCE IMPROVEMENT MANAGER.BALLING HEAD TENDER Work Phone: Endocrinology Comment on above: PA--[employer] Start: 07-03-2024 End: 07-06-2024 ambulatory [facility] PERFORMANCE IMPROVEMENT MANAGER.BALLING HEAD TENDER Work Phone: Endocrinology Comment on above: Hematology Amyloidosis Start: 07-03-2024 End: 07-03-2024 Telephone encounter [facility] PERFORMANCE IMPROVEMENT MANAGER.BALLING HEAD TENDER Work Phone: Endocrinology Comment on above: PA--Tami Start: 07-02-2024 End: 07-02-2024 ambulatory [facility] Facility:[facility] Start: 07-02-2024 End: 07-02-2024 Patient encounter procedure [facility] PERFORMANCE IMPROVEMENT MANAGER.BALLING HEAD TENDER Work Phone: Endocrinology Comment on above: Type [...] function studies Start: 04-17-2024 End: 04-17-2024 ambulatory [facility] Facility:[facility] Start: 04-15-2024 End: 04-15-2024 ambulatory [facility] PERFORMANCE IMPROVEMENT MANAGER.BALLING HEAD TENDER Work Phone: Endocrinology Comment on above: Sugars Start: 04-14-2024 End: 04-15-2024 ambulatory Sharlenearabella Kitchenc PERFORMANCE IMPROVEMENT MANAGER.BALLING HEAD TENDER Work Phone: Endocrinology Comment on above: Chacha amaya on Start: 04-09-2024 End: 04-13-2024 Telephone encounter Sharlene Kitchen PERFORMANCE IMPROVEMENT MANAGER.BALLING HEAD TENDER Work Phone: Endocrinology Comment on above: PA--[employer] Start: 03-27-2024 ambulatory [facility] Facility:[facility] Start: 02-04-2024 End: 02-04-2024 Telephone encounter Kaila Ulloa RN Cardiology Comment on above: Results Start: 01-01-2024 End: 01-01-2024 Telephone encounter Sharlene Kitchen PERFORMANCE IMPROVEMENT MANAGER.BALLING HEAD TENDER Work Phone: Endocrinology Comment on above: PA--Loreta Millan [id number] Start: 12-31-2023 End: 12-31-2023 Telephone encounter Sharlene Kitchen PERFORMANCE IMPROVEMENT MANAGER.BALLING HEAD TENDER Work Phone: Endocrinology Comment on above: Swatch Paster - O ther Start: 12-31-2023 End: 12-31-2023 Patient encounter procedure Sharlene Kitchen PERFORMANCE IMPROVEMENT MANAGER.BALLING HEAD TENDER Work Phone: Endocrinology Comment on above: Type [...] type (HCC) Start: 12-27-2023 End: 12-27-2023 ambulatory Sharlenearabella Kitchenc PERFORMANCE IMPROVEMENT MANAGER.BALLING HEAD TENDER Work Phone: Endocrinology Comment on above: Alonso sensors Start: 12-24-2023 End: 12-24-2023 Patient encounter procedure Melissa Green PA-C Work Phone: Orthopaedics Comment on above: Bilateral carpal lamin amrit syndrome (Primary Dx) Start: 12-23-2023 End: 12-23-2023 Telephone encounter Melissa Green PA-C Work Phone: [address] [place] [address] Comment on above: Appointment Start: 12-11-2023 ambulatory REJI MANSFIELD Facility :[facility] Start: 12-11-2023 End: 12-11-2023 Subsequent hospital visit by physician Reji Mansfield MD Work Phone: [facility] Surgery Comment on above: Bilateral carpal lamin amrit syndrome [G56.03] Start: 12-06-2023 Telephone encounter Yelitza Ly APRN.CNP Work Phone: Pre Anesthesia Comment on above: Request Outside [facility] Start: 12-06-2023 End: 12-06-2023 Admission to establishment [facility] Work Phone: Pre Anesthesia Start: 12-06-2023 End: 12-06-2023 Anesthesia consultation [facility] Work Phone: Pre Anesthesia Comment on [...] Pulmonary nodule; Smoker; Coronary artery disease involving [place] coronary artery of [place] heart without angina pectoris; History of total knee replacement, right Start: 12-06-2023 End: 12-06-2023 Preprocedural examination done [facility] Phone[facility] Work Phone: Start: 11-26-2023 Telephone encounter Reji villa MD Work Phone: Orthopaedics Comment on above: Schedule Surgery Start: 11-26-2023 End: 11-26-2023 Patient encounter procedure Reji Mansfield MD Work Phone: Orthopaedics Comment on above: Bilateral carpal lamin amrit syndrome (Primary Dx) Start: 11-25-2023 Refill Sharlene Kupie c PERFORMANCE IMPROVEMENT MANAGER.BALLING HEAD TENDER Work Phone: Endocrinology Comment on above: Med Change Request Start: 11-03-2023 Refill Sharlene Kupie c PERFORMANCE IMPROVEMENT MANAGER.BALLING HEAD TENDER Work Phone: Endocrinology Comment on above: Refill Request Start: 10-10-2023 Telephone encounter Sharlene garciac PERFORMANCE IMPROVEMENT MANAGER.BALLING HEAD TENDER Work Phone: Endocrinology Comment on above: office notes request ([facility]) Start: 10-01-2023 Telephone encounter Reji villa MD Work Phone: Orthopaedics Comment on above: Appointment Start: 09-27-2023 Telephone encounter Sharlene garciac PERFORMANCE IMPROVEMENT MANAGER.BALLING HEAD TENDER Work Phone: Endocrinology Comment on above: Dilated Eye Exam Rep ort ([facility]) Start: 09-01-2023 ambulatory Sharlene Kupie c PERFORMANCE IMPROVEMENT MANAGER.BALLING HEAD TENDER Work Phone: Endocrinology Comment on above: Mounjaro Start: 08-26-2023 ambulatory Sharlene Kupie c PERFORMANCE IMPROVEMENT MANAGER.BALLING HEAD TENDER Work Phone: Endocrinology Comment on above: Rybelsus Start: 08-22-2023 ambulatory Sharlene Kupie c PERFORMANCE IMPROVEMENT MANAGER.BALLING HEAD TENDER Work Phone: Endocrinology Comment on above: Mounjaro Start: 08-22-2023 Telephone encounter Sharlene garciac PERFORMANCE IMPROVEMENT MANAGER.BALLING HEAD TENDER Work Phone: Endocrinology Comment on above: Medication Problem Start: 08-21-2023 ambulatory Sharlene Kupie c PERFORMANCE IMPROVEMENT MANAGER.BALLING HEAD TENDER Work Phone: Endocrinology Comment on above: FreeStyle Alonso Start: 08-21-2023 E-mail encounter pedro m caregiver Sharlene Kitchenc PERFORMANCE IMPROVEMENT MANAGER.BALLING HEAD TENDER Work Phone: [facility] Start: 08-09-2023 End: 08-09-2023 ambulatory Emg 850) Neurology Comment on above: EMG Start: 08-09-2023 End: 08-09-2023 Patient encounter procedure Emg 2 Neur [facility] (Max Weight: 850) [facility] Start: 07-25-2023 Admission to [facility] Sharlene Escobar PERFORMANCE IMPROVEMENT MANAGER.BALLING HEAD TENDER Work Phone: Endocrinology Comment on above: Knee surgery Start: 07-25-2023 ambulatory Sharlene lisa PERFORMANCE IMPROVEMENT MANAGER.BALLING HEAD TENDER Work Phone: [facility] Start: 07-24-2023 Telephone encounter Sharlene pizano PERFORMANCE IMPROVEMENT MANAGER.BALLING HEAD TENDER Work Phone: Endocrinology Comment on above: PA--FIASP FLEXTOUCH (APPROVED) Start: 07-17-2023 Non-patient / Non-visit MD ERIC ABRAHAM Work Phone: [facility] Work Phone: Start: 07-17-2023 End: 07-18-2023 Evaluation and management of inpatient MD RICARDO ABRAHAM Work Phone: [facility]Medical Surgical 3 Work Phone: Start: 07-17-2023 End: 07-18-2023 observation encounter MD RICARDO ABRAHAM Work Phone: [facility] Work Phone: Start: 07-05-2023 End: 07-05-2023 ambulatory [facility] Work Phone: Start: 07-05-2023 End: 07-05-2023 Patient encounter procedure [facility]-Cat Scan, [facility] Work Phone: Start: 06-24-2023 Refill Sharlene lisa PERFORMANCE IMPROVEMENT MANAGER.BALLING HEAD TENDER Work Phone: Endocrinology Comment on above: Refill Request Asking Start: 06-24-2023 Refill Sharlene lisa PERFORMANCE IMPROVEMENT MANAGER.BALLING HEAD TENDER Work Phone: Endocrinology Comment on above: Refill Request Start: 06-18-2023 Orders Only Ricardo Abraham MD Neurol ogy Comment on above: Bilateral carpal lamin amrit syndrome (Primary Dx) Start: 06-04-2023 End: 06-04-2023 ambulatory MD RICARDO ABRAHAM Work Phone: [facility] Work Phone: Start: 06-04-2023 End: 06-04-2023 Discharged Recurring MD RICARDO ABRAHAM Work Phone: [facility]Physical Therapy Work Phone: Start: 06-04-2023 Registered Recurring [facility]Physical [facility] Work Phone: Start: 04-24-2023 End: 04-24-2023 ambulatory RICARDO ABRAHAM Facility:[facility] Start: 04-09-2023 Telephone encounter Sharlene pizano PERFORMANCE IMPROVEMENT MANAGER.BALLING HEAD TENDER Work Phone: Endocrinology Comment on above: Insurance Authorizat ion (Mounjaro 5 mg and 7.5 mg ) Start: 03-21-2023 End: 03-21-2023 ambulatory [facility] Work Phone: Start: 03-21-2023 End: 03-21-2023 Patient encounter procedure [facility]-Radiology, [facility] Work Phone: Start: 03-08-2023 Telephone encounter Sharlene pizano PERFORMANCE IMPROVEMENT MANAGER.BALLING HEAD TENDER Work Phone: Endocrinology Comment on above: Diabetic Eye Exam (05/07/2022) Start: 02-22-2023 Telephone encounter Sharlene pizano PERFORMANCE IMPROVEMENT MANAGER.BALLING HEAD TENDER Work Phone: Endocrinology Comment on above: [facility] (Request for last office note) Start: 01-10-2023 End: 01-10-2023 ambulatory [facility] Work Phone: Start: 01-10-2023 End: 01-10-2023 Patient encounter procedure [facility]Laboratory, Specimen Work Phone: Start: 12-21-2022 End: 12-21-2022 Admission to same day surgery center [facility] Day Care Comment on above: Surgery today @[facility] Start: 12-21-2022 End: 12-21-2022 ambulatory Sharlene Escobar PERFORMANCE IMPROVEMENT MANAGER.BALLING HEAD TENDER Work Phone: [facility] Work Phone: Start: 12-10-2022 End: 12-10-2022 ambulatory [facility] Work Phone: Start: 12-10-2022 End: 12-10-2022 Patient encounter procedure [facility]Laboratory, [place] Work Phone: Start: 11-09-2022 Telephone encounter Sharlene pizano PERFORMANCE IMPROVEMENT MANAGER.BALLING HEAD TENDER Work Phone: Endocrinology Comment on above: KEVIN--Mario Start: 08-24-2022 End: 08-24-2022 Patient encounter procedure Sharlene Escobar PERFORMANCE IMPROVEMENT MANAGER.BALLING HEAD TENDER Work Phone: Endocrinology Comment on above: Type [...] type (HCC) Start: 08-14-2022 End: 08-14-2022 ambulatory [facility] Work Phone: Start: 08-14-2022 End: 08-14-2022 Patient encounter procedure [facility]Laboratory, Specimen Start: 06-29-2022 End: 06-29-2022 Patient encounter procedure Sharlenefozia Escobar PERFORMANCE IMPROVEMENT MANAGER.BALLING HEAD TENDER Work Phone: Endocrinology Comment on above: Type [...] type (HCC) Start: 06-20-2022 ambulatory Sharlene lisa PERFORMANCE IMPROVEMENT MANAGER.BALLING HEAD TENDER Work Phone: Endocrinology Comment on above: Insulin Calls Start: 06-19-2022 ambulatory Sharlene lisa PERFORMANCE IMPROVEMENT MANAGER.BALLING HEAD TENDER Work Phone: Endocrinology Comment on above: Insulin liber 2 Start: 06-08-2022 End: 06-08-2022 ambulatory [facility] Work Phone: Start: 06-08-2022 End: 06-08-2022 Patient encounter procedure [facility]-Cardiovascula r Services Start: 06-04-2022 Admission to [facility] Sharlene Escobar PERFORMANCE IMPROVEMENT MANAGER.BALLING HEAD TENDER Work Phone: Endocrinology Comment on above: Toe surgery Start: 06-04-2022 ambulatory Sharlene lisa PERFORMANCE IMPROVEMENT MANAGER.BALLING HEAD TENDER Work Phone: Endocrinology Comment on above: Meter and insulin Start: 06-03-2022 ambulatory Sharlenearabella lisa PERFORMANCE IMPROVEMENT MANAGER.BALLING HEAD TENDER Work Phone: Endocrinology Comment on above: Meter and insulin Start: 06-01-2022 End: 06-01-2022 Admission to same day surgery [facility] Day [facility] Start: 06-01-2022 End: 06-01-2022 ambulatory [facility] Work Phone: Start: 05-30-2022 Refill Sharlene lisa PERFORMANCE IMPROVEMENT MANAGER.BALLING HEAD TENDER Work Phone: Endocrinology Comment on above: Refill Request request of Office no henry ([facility]) Start: 05-25-2022 Telephone encounter Sharlene pizano PERFORMANCE IMPROVEMENT MANAGER.BALLING HEAD TENDER Work Phone: Endocrinology Comment on above: Diabetic Eye Exam Start: 05-25-2022 End: 05-25-2022 Patient encounter procedure Sharlene Escobar PERFORMANCE IMPROVEMENT MANAGER.BALLING HEAD TENDER Work Phone: Endocrinology Comment on above: Type 2 diabetes phuc itus with diabetic polyneuropathy, with long-term current use of insulin (HCC) (Primary Dx); 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d by mild nonproliferative retinopathy and macular edema, with long-term current use of insulin ([facility]); Vitamin D deficiency; Essential hypertension; Mixed hyperlipidemia; Class 3 severe obesity with serious comorbidity and body mass index (BMI) of 45.0 to 49.9 in adult, unspecified obesity type ([facility]) Start: 05-15-2022 End: 05-15-2022 ambulatory [facility] Work Phone: Start: 05-15-2022 End: 05-15-2022 Discharged Recurring [facility] Start: 05-01-2022 End: 05-05-2022 [facility] Work Phone: Start: 05-01-2022 End: 05-05-2022 Discharged Recurring [facility] Start: 04-03-2022 End: 04-04-2022 [facility] Work Phone: Start: 04-03-2022 End: 04-04-2022 Discharged Recurring [facility] Start: 02-27-2022 End: 03-05-2022 [facility] Work Phone: Start: 02-27-2022 End: 03-05-2022 [facility] Start: 02-20-2022 ambulatory Sharlene lisa APRN.CNP Work Phone: [facility] Start: 02-20-2022 Patient encounter procedure Sharlene Escobar APRN.BALLING HEAD TENDER Work Phone: Endocrinology Comment on above: Unable to make appoi ntment today Start: 01-10-2022 End: 02-02-2022 [facility] Work Phone: Start: 01-10-2022 End: 02-02-2022 [facility] Start: 01-07-2022 Refill Sharlene lisa APRN.CNP Work Phone: Endocrinology Comment on above: Refill Request Start: 01-03-2022 End: 01-03-2022 ambulatory [facility] Work Phone: Start: 01-03-2022 End: 01-03-2022 Discharged Recurring [facility] Start: 11-29-2021 End: 12-03-2021 Discharged Recurring [facility] Start: 11-17-2021 End: 11-17-2021 Patient encounter procedure [facility] Start: 11-15-2021 [facility] Start: 11-14-2021 End: 11-14-2021 Patient encounter procedure Sharlene Escobar PERFORMANCE IMPROVEMENT MANAGER.BALLING HEAD TENDER Work Phone: Endocrinology Comment on above: Type 2 diabetes phuc itus with diabetic polyneuropathy, with long-term current use of insulin (HCC) (Primary Dx); Vitamin D deficiency; Essential hypertension; Mixed hyperlipidemia; Class 3 severe obesity with serious comorbidity and body mass index (BMI) of 45.0 to 49.9 in adult, unspecified obesity type (HCC) Start: 11-14-2021 Telephone encounter Sharlene pizano APRN.KIERSTEN Work Phone: Endocrinology Comment on above: Insurance Authorizat ion (Ozempic) Start: 11-01-2021 End: 11-02-2021 [facility] Start: 10-09-2021 Refill Sharlene lisa APRN.BALLING HEAD TENDER Work Phone: Endocrinology Comment on above: Refill Request Start: 09-27-2021 End: 10-03-2021 Discharged Recurring [facility] Start: 09-20-2021 [facility] Start: 09-19-2021 End: 09-19-2021 Patient encounter procedure [facility]Laboratory Start: 08-30-2021 End: 09-02-2021 [facility] Start: 08-18-2021 Telephone encounter Sharlene pizano APRN.BALLING HEAD TENDER Work Phone: Endocrinology Comment on above: Insurance Authorizat ion (Trulicity) Start: 10-07-2020 End: 10-07-2020 Emergency department patient visit Meredith Tinoco MD Work Phone: [facility] Comment on above: Diabetic foot infect ion (HCC) (Primary Dx) Start: 05-08-2019 End: 05-08-2019 Emergency department patient visit Chalino Jackson Work Phone: [facility] Comment on above: Septicemia (HCC) (Pr imary Dx); Altered metabolism due to diabetes (HCC); Pneumonia due to organism; COPD exacerbation (HCC); Left against medical advice Start: 12-30-2017 End: 12-31-2017 ambulatory UNKNOWN PROVIDER Facility:[facility] Start: 12-05-2017 Patient encounter Leticia Laujanna Henriquez [facility] Start: 12-05-2017 Patient encounter REFERRED *SELF Fac ility:[id number] Start: 11-14-2017 Patient encounter [facility] Start: 11-14-2017 Patient encounter REFERRED *SELF Fac ility:[id number] Start: 09-03-2017 Patient encounter Evelinkimberly Esteseneaux Facility:9253 Start: 08-02-2017 Patient encounter Evelinkimberly Raygoza Facility:9253 Start: 07-05-2017 Patient encounter Evelin Destiny Idalmis Facility:9253 Start: 06-07-2017 Patient encounter Evelin Destiny Idalmis Facility:9253 Start: 05-09-2017 Patient encounter Evelinkimberly Esteseneaux Facility:9253 Start: 04-11-2017 Patient encounter Evelin Destiny Idalmis Facility:9253 Start: 04-09-2017 Patient encounter Evelin Destiny Idalmis Facility:9253 Start: 03-21-2017 Patient encounter Evelin Destinyaayush Raygoza Facility:9253 Start: 03-08-2017 Patient encounter Evelin Destinyaayush Raygoza Facility:9253 Procedures Date Procedure Procedure Detail Performing Clinician Start: 01-08-2025 Estimated creatinine clearance RICARDO ABRAHAM MD Work Phone: Start: 01-07-2025 Plain X-ray of shoulder RICARDO ABRAHAM MD Work Phone: Start: 01-07-2025 Reverse prosthetic total arthroplasty of right shoulder RICARDO ABRAHAM MD Work Phone: Start: 12-31-2024 Hemoglobin A1c/Hemoglobin.total in Blood Sharlene Imtiazc PERFORMANCE IMPROVEMENT MANAGER.BALLING HEAD TENDER Work Phone: Start: 12-11-2024 Methicillin resistant Staphylococcus aureus screening test RICARDO ABRAHAM MD Work Phone: Start: 12-11-2024 CT of upper limb without contrast RICARDO ABRAHAM MD Work Phone: Start: 11-24-2024 MRI of joint of lower extremity RICARDO ABRAHAM MD Work Phone: Start: 07-02-2024 Hemoglobin A1c/Hemoglobin.total in Blood Sharlene Gisellaiec PERFORMANCE IMPROVEMENT MANAGER.BALLING HEAD TENDER Work Phone: Start: 12-31-2023 Hemoglobin A1c/Hemoglobin.total in Blood Sharlene Gisellaiec PERFORMANCE IMPROVEMENT MANAGER.BALLING HEAD TENDER Work Phone: Start: 12-11-2023 Gluc bld gluc mntr dev cleared fda spec home use Reji Mansfield MD Work Phone: Start: 12-11-2023 Gluc bld gluc mntr dev cleared fda spec home use Reji Mansfield MD Work Phone: Start: 08-09-2023 Nerve conduction studies 5-6 studies Valeria Mercer MD Work Phone: Start: 07-17-2023 Radiologic examination of knee MD RICARDO ABRAHAM Work Phone: Start: 07-17-2023 Total Knee Replacement Robotic Arm Erick (Right) MD RICARDO ABRAHAM Work Phone: Start: 07-05-2023 MRI of lower extremity Start: 07-05-2023 Urine culture MD RICARDO ABRAHAM Work Phone: Start: 07-02-2023 Nasal Screen MRSA/MSSA MD RICARDO ABRAHAM Work Phone: Start: 03-21-2023 Plain X-ray of tibia and fibula Start: 03-21-2023 Radiologic examination of knee Start: 01-10-2023 Anaerobic microbial culture Start: 01-10-2023 Investigation of transfusion reaction Start: 01-10-2023 Microbial culture, routine Start: 12-21-2022 Fluoroscopic guidance Start: 12-21-2022 Radiography of ankle Start: 12-21-2022 Repair of tendo achilles Start: 12-10-2022 Plain chest X-ray Start: 08-24-2022 Hemoglobin A1c/Hemoglobin.total in Blood Sharlene Escobar PERFORMANCE IMPROVEMENT MANAGER.BALLING HEAD TENDER Work Phone: Start: 06-01-2022 Arthroplasty of toe Start: 06-01-2022 Fluoroscopic guidance Start: 06-01-2022 X-ray of both feet Start: 05-25-2022 Hemoglobin A1c/Hemoglobin.total in Blood Sharlene Escobar PERFORMANCE IMPROVEMENT MANAGER.BALLING HEAD TENDER Work Phone: Start: 11-17-2021 MRI of joint of lower extremity Start: 11-14-2021 Hemoglobin A1c/Hemoglobin.total in Blood Sharlene Escobar PERFORMANCE IMPROVEMENT MANAGER.BALLING HEAD TENDER Work Phone: Start: 10-07-2020 Radex foot complete minimum 3 views Meredith Tinoco MD Work Phone: Start: 10-07-2020 Comprehensive metabolic panel Meredith Tinoco MD Work Phone: Start: 05-08-2019 Comprehensive metabolic panel Chalino Jackson DO Work Phone: Start: 05-08-2019 Iaadiadoo influenza Chalino Jackson DO Work Phone: Start: 05-08-2019 Ecg routine ecg w/least 12 lds w/i&r Chalino Jackson DO Work Phone: Start: 05-08-2019 Radiologic exam chest 2 views Chalino Jackson DO Work Phone: Start: 12-30-2017 Fluor needle/cath spine/paraspinal dx/ther addon UNKNOWN PROVIDER Start: 12-30-2017 PAIN MANAGEMENT PROCEDURE SERVICE REQUEST UNKNOWN PROVIDER Start: 12-30-2017 PHYS THERAPY ADULT EVAL/TREAT SERVICE RQST UNKNOWN PROVIDER Start: 12-30-2017 [facility] WEIGHT MANAGEMENT SERVICE REQUEST UNKNOWN PROVIDER Start: 11-01-2015 Colonoscopy Sharlene Escobar PERFORMANCE IMPROVEMENT MANAGER.BALLING HEAD TENDER Work Phone: Anaerobic microbial culture H/O: artificial joint Status pos t total shoulder arthroplasty RICARDO ABRAHAM MD Work Phone: H/O: artificial joint Status pos t total shoulder arthroplasty Dr. Meredith Momin MD Investigation of transfusion reaction Investigation of transfusion reaction Microbial culture, routine Microbial culture, routine Plan of Treatment Date Care Activity Detail Author Start: 10-31-2025 Colonoscopy [facility] Start: 10-31-2025 COLORECTAL CANCER SCREENING [facility]ER [facility] Start: 10-31-2025 Screening for malignant neoplasm of colon [facility] Start: 07-08-2025 End: 07-08-2025 Patient encounter procedure 07/08/2025 1:00 PM EST Office Visit Endocrinology [address] [address] Sharlene Escobar, PERFORMANCE IMPROVEMENT MANAGER.BALLING HEAD TENDER [address] [address] 6m follow up Endocrinology Comment on above: 6m follow up Start: 07-03-2025 Hemoglobin A1c measurement HbA1C [facility] Start: 01-08-2025 Patient discharge [facility] Start: 01-08-2025 Referral to service [facility] Start: 01-08-2025 Wound care [facility] Start: 01-07-2025 Care regimes management [facility] Start: 01-07-2025 Notification of physician [facility] Start: 01-07-2025 [facility] Start: 01-07-2025 Consultation for treatment [facility] Start: 01-07-2025 Following clinical pathway protocol [facility] Start: 01-07-2025 Admission procedure [facility] Start: 01-07-2025 Consultation [facility] Start: 01-07-2025 Ambulation therapy management [facility] Start: 01-07-2025 Application of device [facility] Start: 01-07-2025 Assessment of risk of venous thromboembolism [facility] Start: 01-07-2025 Catheterization of vein [facility] Start: 09-04-2025 Following clinical pathway protocol [facility] Start: 01-07-2025 Incentive spirometry [facility] Start: 01-07-2025 Introduction of urinary catheter [facility] Start: 01-07-2025 Measuring intake and output [facility] Start: 01-07-2025 Neurovascular assessment [facility] Start: 01-07-2025 Patient education [facility] Start: 01-07-2025 Procedure discontinued [facility] Start: 01-07-2025 Provision of activity privileges [facility] Start: 01-07-2025 Referral to occupational therapist [facility] Start: 01-07-2025 Vital signs measurements [facility] Start: 01-07-2025 Wound care [facility] Start: 01-07-2025 End: 01-07-2025 [facility] Start: 01-07-2025 Consultation [facility] Start: 01-04-2025 Influenza vaccination [facility] Start: 12-31-2024 End: 12-31-2024 Patient encounter procedure 12/31/2024 1:00 PM EDT Office Visit Endocrinology [address] [address] Sharlene Escobar APRN.BALLING HEAD TENDER [address] [address] 6 month follow up Endocrinology Comment on above: 6 month follow up Start: 12-30-2024 Hemoglobin A1c measurement HbA1C [facility] Start: 12-05-2024 BP Controlled (<130/80) BP Controlled (<130/80) [facility] Start: 09-25-2024 Glaucoma screening Dilated Retinal Exam [facility] Start: 07-14-2024 End: 07-14-2024 [facility] visit new patient 07/14/2024 1:20 PM EDT Visit (SP) Office Hematology/Oncology [address] [address] [place] [address] [place] [address] new patient Hematology/Oncology Comment on above: new patient Start: 07-10-2024 End: 07-10-2024 ambulatory 07/10/2024 1:30 PM EST Results Only [facility] Draw Station [address] [place] [address] [facility] Station Start: 07-03-2024 End: 10-02-2024 25-hydroxyvitamin D3 [Mass/volume] in Serum or Plasma VITAMIN D 25 HYDROXY Lab Routine Vitamin D deficiency Expected: 07/03/2024 (Approximate), Expires: 10/02/2024 [facility] Comment on above: Expected: 07/03/2024 (Approximate), [...] insulin (HCC) Expected: 07/03/2024 (Approximate), Expires: 10/02/2024 [facility] Work Phone: Comment on above: Expected: 07/03/2024 [...] insulin (HCC) Expected: 07/03/2024 (Approximate), Expires: 10/02/2024 [facility] Comment on above: Expected: 07/03/2024 (Approximate), [...] insulin (HCC) Expected: 07/03/2024 (Approximate), Expires: 10/02/2024 [facility] [facility] Comment on above: Expected: 07/03/2024 (Approximate), [...] function studies Expected: 07/03/2024 (Approximate), Expires: 10/[facility]24 [facility] Comment on above: Expected: 07/03/2024 (Approximate), [...] function studies Expected: 07/03/2024 (Approximate), Expires: 10/02/2024 [facility] Comment on above: Expected: 07/03/2024 (Approximate), Expi res: 10/02/2024 Start: 07-02-2024 Hemoglobin A1c measurement HbA1C [facility] Start: 07-02-2024 End: 07-02-2024 Patient encounter procedure 07/02/2024 1:00 PM EST Office Visit Endocrinology [address] [address] Sharlene Escobar, DANN.BALLING HEAD TENDER [address] [address] 6 month follow up Endocrinology Comment on above: 6 month follow up Start: 04-24-2024 Hepatitis B screening Urine Albumin:Creatinine Ratio [facility] Start: 04-24-2024 Hepatitis B surface antibody level LDL Cholesterol [facility] Start: 03-07-2024 Glaucoma screening Dilated Retinal [facility]am [facility] Start: 03-07-2024 Hepatitis C antibody, confirmatory test Dilated Retinal Exam [facility] Start: 02-07-2024 End: 02-07-2024 ambulatory 02/07/2024 2:15 PM EDT Results Only Archana Soliman [facility] [address] [place] [address] Archana Colonwn [facility] Start: 01-20-2024 End: 01-20-2024 Patient encounter procedure 01/20/2024 9:45 AM EDT Office Visit Orthopaedics [address] [place] [address] Reji Mansfield MD [address] [place] [address] Post op Bilateral CTR Orthopaedics Comment on above: Post op Bilateral CTR Start: 01-16-2024 End: 01-16-2024 Patient encounter procedure 01/16/2024 2:45 PM EDT Office Visit Endocrinology [address] [address] Sharlene Escobar APRN.BALLING HEAD TENDER [address] [address] FOLLOW UP Endocrinology Comment on above: FOLLOW UP Start: 01-05-2024 Covid-19 Vaccine ( season) Covid-19 Vaccine ( [facility]) [facility] Start: 01-05-2024 Influenza vaccination [facility] Start: 12-24-2023 End: 12-24-2023 Patient encounter procedure 12/24/2023 1:30 PM EDT Office Visit Orthopaedics [address] [address] Melissa Green PA-C [address] [place] [address] Post op Bilateral CTR Orthopaedics Comment on above: Post op Bilateral CTR Start: 12-23-2023 End: 12-23-2023 Patient encounter procedure 12/23/2023 10:45 AM EDT Office Visit Orthopaedics [address] [place] [address] Melissa Green PA-C [address] [place] [address] Post op Bilateral CTR Orthopaedics Comment on above: Post op Bilateral CTR Start: 12-11-2023 End: 12-11-2023 Admission to same day surgery center [facility] Surgery Comment on above: DECOMPRESSION NERVE MEDIAN CARPAL TUNNEL Start: 12-11-2023 End: 12-11-2023 Neuroplasty &/transpos median nrv carpal tunne [place] OR Start: 12-11-2023 Subsequent hospital visit by physician [facility] Surgery Comment on above: Bilateral carpal tunnel syndrome [G56.03 ] Start: 12-06-2023 End: 12-06-2023 Anesthesia consultation 12/06/2023 1:40 PM EDT PAT Pre Anesthesia [address] [place] [address] [facility] [address] [place] [address] Pt declined VV Pre Anesthesia Comment on above: Pt declined VV Start: 11-26-2023 End: 11-26-2023 Patient encounter procedure 11/26/2023 11:45 AM EDT Office Visit Orthopaedics [address] [address] Reji Mansfield [facility] [address] [facility] [address] Bilat carpal tunnel surgery consult Orthopaedics Comment on above: Bilat carpal tunnel surgery consult Start: 11-19-2023 End: 11-19-2023 Patient encounter procedure 11/19/2023 11:00 AM EDT Office Visit Orthopaedics [address] [address] Reji Mansfield MD [address] [place] [address] Bilat carpal tunnel surgery consult Orthopaedics Comment on above: Bilat carpal tunnel surgery consult Start: 10-24-2023 Hemoglobin A1c measurement HbA1C [facility] Start: 08-25-2023 BP CONTROLLED (<130/80) BP CONTROLLED (<130/80) [facility] Start: 07-18-2023 Provision of overbed trapeze [facility] Start: 07-18-2023 Patient discharge [facility] Start: 07-17-2023 Following clinical pathway protocol [facility] Start: 07-17-2023 Care regimes management [facility] Start: 07-17-2023 Notification of physician [facility] Start: 07-17-2023 Application of intermittent pneumatic compression device [facility] Start: 07-17-2023 Anesth open/surg arthrs total knee arthroplasty ANESTH KNEE ARTHROPLASTY [facility] Start: 07-17-2023 Arthrp kne condyle&platu medial&lat compartments TOTAL KNEE ARTHROPLASTY [facility] Start: 07-17-2023 Injection aa&/strd femoral nerve NJX AA&/STRD FEMORAL NRV IMG [facility] Start: 07-17-2023 Ambulation therapy management [facility] Start: 07-17-2023 Application of device [facility] Start: 07-17-2023 Application of elastic bandage [facility] Start: 07-17-2023 Assessment of risk of venous thromboembolism [facility] Start: 07-17-2023 Catheterization of vein [facility] Start: 07-17-2023 Consultation [facility] Start: 07-17-2023 Exercises [facility] Start: 07-17-2023 Following clinical pathway protocol [facility] Start: 07-17-2023 Incentive spirometry [facility] Start: 07-17-2023 Introduction of urinary catheter [facility] Start: 07-17-2023 Measuring intake and output [facility] Start: 07-17-2023 Neurovascular assessment [facility] Start: 07-17-2023 Patient education [facility] Start: 07-17-2023 Procedure discontinued [facility] Start: 07-17-2023 Provision of activity privileges [facility] Start: 07-17-2023 Provision of overbed trapeze [facility] Start: 07-17-2023 Recommendation to continue with treatment [facility] Start: 07-17-2023 Referral to occupational therapist [facility] Start: 07-17-2023 Referral to service [facility] Start: 07-17-2023 Vital signs measurements [facility] Start: 07-17-2023 Wound care [facility] Start: 07-17-2023 End: 07-17-2023 [facility] Start: 07-17-2023 Admission procedure [facility] Start: 05-24-2023 Hepatitis C antibody, confirmatory test DILATED [facility]AL [facility] Start: 05-06-2023 Behavioral Health Screening Behavioral Health [facility] Start: 05-06-2023 Depression Assessment Depression Assessment [facility] Start: 02-23-2023 Hemoglobin A1c/Hemoglobin.total in Blood HBA1C [facility] Start: 01-04-2023 Covid-19 Vaccine ( season) Covid-19 Vaccine ( season) [facility] Start: 01-04-2023 Influenza vaccination [facility] Start: 12-21-2022 Anes rpr ruptured achilles tendon w/wo graft ANESTH ACHILLES TENDON SURG [facility] Start: 12-21-2022 Rpr primary open/prq ruptured achilles w/graft REPAIR/GRAFT ACHILLES TENDON [facility] Start: 12-21-2022 Radiography of ankle Ankle 2 Views [facility] Start: 12-21-2022 XR Ankle 2 Views [facility] Start: 12-21-2022 Patient discharge [facility] Start: 11-14-2022 BP CONTROLLED (<130/80) BP CONTROLLED (<130/80) [facility] Start: 08-23-2022 Hemoglobin A1c/Hemoglobin.total in Blood HBA1C [facility] Start: 06-01-2022 Anes open proc bones lower leg/ankle/foot nos ANESTH LOWER LEG BONE SURG [facility] Start: 06-01-2022 Arthrodesis great toe interphalangeal joint FUSION OF BIG TOE JOINT [facility] Start: 06-01-2022 Debridement subcutaneous tissue 20 sq cm/< FAITH SUBQ TISSUE 20 SQ CM/< [facility] Start: 06-01-2022 Patient discharge [facility] Start: 06-01-2022 X-ray of both feet Foot min 3 Views [facility] Start: 06-01-2022 XR Foot GE 3 Views [facility] Start: 05-06-2022 DEPRESSION ASSESSMENT DEPRESSION ASSESSMENT [facility] Start: 03-09-2022 3 comp foot exam completed DIABETIC FOOT EXAM [facility] Start: 03-09-2022 Diabetic foot examination Diabetic Foot Exam [facility] Start: 02-14-2022 Hemoglobin A1c/Hemoglobin.total in Blood HBA1C [facility] Start: 01-04-2022 Influenza vaccination INFLUENZA (#1) [facility] Start: 11-22-2021 End: 01-22-2022 25-hydroxyvitamin D3 [Mass/volume] in Serum or Plasma VITAMIN D 25 HYDROXY Lab Routine Type 2 diabetes mellitus with diabetic polyneuropathy, with long-term current use of insulin ([facility]) Vitamin D deficiency Expected: 11/22/2021 (Approximate), Expires: 01/22/2022 [facility] Work Phone: Comment on above: Expected: 11/22/2021 (Approximate), Expi res: 01/22/2022 Start: 11-22-2021 End: 01-22-2022 ALBUMIN/CREAT RATIO RND UR ALBUMIN/CREAT RATIO RND UR Lab Routine Type 2 diabetes mellitus with diabetic polyneuropathy, with long-term current use of insulin (HCC) Expected: 11/22/2021 (Approximate), Expires: 01/22/2022 [facility] Work Phone: Comment on above: Expected: 11/22/2021 (Approximate), Expi res: 01/22/2022 Start: 11-22-2021 End: 01-22-2022 Comprehensive metabolic 2000 panel - Serum or Plasma COMP METABOLIC PANEL Lab Routine Type 2 diabetes mellitus with diabetic polyneuropathy, with long-term current use of insulin (HCC) Expected: 11/22/2021 (Approximate), Expires: 01/22/2022 [facility] Work Phone: Comment on above: Expected: 11/22/2021 (Approximate), Expi res: 01/22/2022 Start: 11-22-2021 End: 01-22-2022 Lipid 1996 panel - Serum or Plasma LIPID PANEL BASIC Lab Routine Type 2 diabetes mellitus with diabetic polyneuropathy, with long-term current use of insulin (HCC) Mixed hyperlipidemia Expected: 11/22/2021 (Approximate), Expires: 01/22/2022 [facility] Work Phone: Comment on above: Expected: 11/22/2021 (Approximate), Expi res: 01/22/2022 Start: 11-22-2021 End: 01-22-2022 Thyrotropin [Units/volume] in Serum or Plasma TSH BLD Lab Routine Type 2 diabetes mellitus with diabetic polyneuropathy, with long-term current use of insulin (HCC) Expected: 11/22/2021 (Approximate), Expires: 01/22/2022 [facility] Work Phone: Comment on above: Expected: 11/22/2021 (Approximate), Expi res: 01/22/2022 Start: 10-07-2021 Creatinine measurement Creatinine monitoring [facility] Work Phone: Start: 10-07-2021 Potassium monitoring Potassium monitoring [facility] Work Phone: Start: 06-09-2021 Hemoglobin A1c/Hemoglobin.total in Blood HBA1C [facility] Start: 05-06-2021 DEPRESSION ASSESSMENT DEPRESSION ASSESSMENT [facility] Start: 01-04-2021 Hepatitis B screening URINE ALBUMIN:CREATININE RATIO [facility] Start: 01-04-2021 Hepatitis B surface antibody level LDL CHOLESTEROL [facility] Start: 01-04-2021 Influenza vaccination Flu vaccine (Season Ended) [facility] Work Phone: Start: 2020 Hepatitis B Vaccine (1 of 3 - Risk 3-dose series) Hepatitis B Vaccine (1 of 3 - Risk 3-dose series) [facility] Start: 2020 RSV Vaccine (1 - 1-dose 60+ series) RSV Vaccine (1 - 1-dose 60+ series) [facility] Start: 2020 RSV Vaccine (1 - Risk 60-74 years 1-dose series) RSV Vaccine (1 - Risk 60-74 years 1-dose series) [facility] Start: 05-20-2019 Hepatitis C antibody, confirmatory test DILATED RETINAL EXAM [facility] Start: 01-04-2019 Influenza vaccination Flu vaccine (#1) [facility] Work Phone: Start: 10-26-2018 Annual Wellness Visit (AWV) Annual Wellness Visit (AWV) [facility] Work Phone: Start: 11-18-2016 PROSTATE CANCER SCREENING DISCUSSION PROSTATE CANCER SCREENING DISCUSSION [facility] Start: 11-18-2016 Prostate specific antigen measurement Prostate Cancer Screening Discussion [facility] Start: 2010 Colon cancer screen colonoscopy Colon cancer screen colonoscopy [facility] Work Phone: Start: 2010 Screening for malignant neoplasm of colon Colon cancer screen colonoscopy [facility] Work Phone: Start: 2010 Shingles Vaccine (1 of 2) Shingles Vaccine (1 of 2) [facility] Work Phone: Start: 2010 SHINGRIX VACCINE (1 of 2) SHINGRIX VACCINE (1 of 2) [facility] Start: 2005 COLOGUARD (FIT-DNA) COLOGUARD (FIT-DNA) [facility] Start: [address] COLONOGRAPHY [facility] Start: 2005 FECAL OCCULT BLOOD FECAL OCCULT BLOOD [facility] Start: 2005 Screening for malignant neoplasm of colon [facility] Start: 2005 SIGMOIDOSCOPY SIGMOIDOSCOPY [facility] Start: 2000 Diabetes screen Diabetes screen [facility] Work Phone: Start: 2000 Lipid panel Lipid screen [facility] Work Phone: Start: 2000 Lipid screen Lipid screen [facility] Work Phone: Start: 07-04-1993 Medicare Annual Wellness Visit Medicare Annual Wellness Visit [facility] Start: 09-24-1979 DTaP/Tdap/Td vaccine (1 - Tdap) DTaP/Tdap/Td vaccine (1 - Tdap) [facility] Work Phone: Start: 09-24-1979 Pneumococcal Vaccine: 50+ (1 of 2 - PCV) Pneumococcal Vaccine: 50+ (1 of 2 - PCV) [facility] Start: 09-24-1979 Urine microalbumin profile [facility] Start: 1978 ANNUAL PCP TEAM CHRONIC DISEASE VISIT ANNUAL PCP TEAM CHRONIC DISEASE VISIT [facility] Start: 1978 Anxiety Screening Anxiety Screening [facility] Start: 1978 BP CONTROLLED (<130/80) BP CONTROLLED (<130/80) [facility] Start: 1978 Depression Screening Depression Screening [facility] Start: 1978 HEPATITIS C SCREENING HEPATITIS C SCREENING [facility] Start: 1978 Hepatitis C screening Hepatitis C Screening [facility] Start: 1978 HIV SCREENING HIV SCREENING [facility] Start: 1978 HIV screening HIV Screening [facility] Start: 1976 ONE PNEUMOVAX PRIOR TO AGE 65 ONE PNEUMOVAX PRIOR TO AGE 65 [facility] Start: 09-24-1975 HIV screen HIV screen [facility] Work Phone: Start: 09-24-1975 HIV screening HIV screen [facility] Work Phone: Start: 1972 Adult depression screening assessment DEPRESSION SCREENING [facility] Start: 1972 COVID-19 Vaccine (1) COVID-19 Vaccine (1) [facility] Work Phone: Start: 09-24-1971 DTaP/Tdap/Td vaccine (1 - Tdap) DTaP/Tdap/Td vaccine (1 - Tdap) [facility] Work Phone: Start: 1966 PNEUMOCOCCAL (1 - PCV) PNEUMOCOCCAL (1 - PCV) [facility] Start: 1966 Pneumococcal vaccination [facility] Start: 1965 COVID-19 VACCINE (#1) COVID-19 VACCINE (#1) [facility] Start: 1965 COVID-19 VACCINE (1) COVID-19 VACCINE (1) [facility] Start: 03-26-1961 COVID-19 VACCINE (#1) COVID-19 VACCINE (#1) [facility] Start: 1960 Creatinine monitoring Creatinine monitoring [facility] Work Phone: Start: 1960 Hepatitis C screen Hepatitis C screen [facility] Work Phone: Start: 1960 Hepatitis C screening Hepatitis C screen [facility] Work Phone: Start: 1960 Potassium monitoring Potassium monitoring [facility] Work Phone: Anaerobic Culture Anaerobic Culture [facility] Bacteria identified in Unspecified specimen by Anaerobe culture [facility] End: 05-08-2019 Culture Blood #1 Culture Blood #1 Microbiology STAT One Time for 1 Occurrences starting 05/08/2019 until 05/08/2019 [facility] Work Phone: Comment on above: One Time for 1 Occurrences starting 07/2019 until 05/08/2019 Culture Blood #1 Culture Blood # 1 Microbiology STAT 05/08/2019 1:15 PM EST [facility] Work Phone: End: 05-08-2019 Culture Blood #2 Culture Blood #2 Microbiology STAT One Time for 1 Occurrences starting 05/08/2019 until 05/08/2019 [facility] Work Phone: Comment on above: One Time for 1 Occurrences starting 07/2019 until 05/08/2019 Culture Blood #2 Culture Blood # 2 Microbiology STAT 05/08/2019 1:15 PM EST [facility] Work Phone: EKG 12 Lead - Chest Pain EKG 12 Lead - Chest Pain ECG STAT 05/08/2019 1:08 PM EST [facility] Work Phone: Electrocardiographic procedure [facility] End: 06-18-2024 EMG(NEURO/NI) EMG(NEURO/NI) EMG Routine Bilateral carpal tunnel syndrome 1 Occurrences starting 06/18/2023 until 06/18/2024 [facility] Work Phone: Comment on above: 1 Occurrences starting 06/18/2023 until 06/18/2024 Microscopic observat ion [Identifier] in Unspecified specimen by Gram stain Gram Stain [facility] Patient referral [facility] Work Phone: SURGICAL PATHOLOGY [facility] Work Phone: Comment on above: Release Upon Ordering for 1 Occurrences starting 12/11/2023 Wound Culture Wound Culture [facility] Immunizations Immunization Date Immunization Notes Care Provider Fa rebeka 03-09-2021 influenza, injectabl e, quadrivalent, contains preservative Sharlenefozia Escobar PERFORMANCE IMPROVEMENT MANAGER.BALLING HEAD TENDER Work Phone: [facility] 03-09-2021 influenza virus vacc ine, unspecified formulation Sharlene Escobar PERFORMANCE IMPROVEMENT MANAGER.BALLING HEAD TENDER Work Phone: [facility] Payers Date Payer Category Payer Self-pay [id number] 2018 Medicaid MEDICAID [facility] DEPT OF JOB xxxxxxxxxxxx 2018-Present [phone] [address] [place] [address] xxxxxxxxxxxx [id number] 2015 Medicare MEDICARE MEDICAR E PART A AND B xxxxxxxxxx 2015-Present [phone] [address] [address] [place] [address] xxxxxxxxxx [id number] 2004 Medicaid [place] [id number] 2004-Present [phone] [address] [place] [address] Medicaid [id number] 2004 Medicaid [id number] 2004 Medicaid [id number] 1993 Medicare [id number] 1993 Medicare [id number] 1993 Medicare MEDICARE MEDICAR E A AND B [id number] 1993-Present [phone] [facility] [place] [address] Medicare [id number] 1993 Medicare [id number] 1993 Medicare [id number] 1960 Unknown [id number] Unknown [id number] Unknown [id number] Unknown [id number] Unknown [id number] Unknown [id number] Unknown [id number] Unknown [id number] Unknown [id number] Social History Date Type Detail Facility Start: 05-08-2019 End: 10-07-2020 Tobacco smoking status NHIS Former smoker [facility] Work Phone: Start: 10-07-2020 Alcohol intake Ex-drinker (finding) [facility] [employer] Phone: Start: 1960 Sex Assigned At Not on file [facility] Work Phone: Start: 11-04-2021 End: 11-14-2021 Exposure to SARS-CoV-2 (event) Not sure [facility] Start: 09-21-2013 End: 05-25-2022 Tobacco smoking status NHIS Light tobacco smoker [facility] History of tobacco use Cigar Smoker [facility] Start: 09-21-2013 End: 05-25-2022 Tobacco use and exposure Smokeless tobacco non-user [facility] Start: 03-09-2021 End: 12-31-2024 Alcohol intake Current non-drinker of alcohol (finding) [facility] Start: 04-05-2014 End: 05-25-2022 Tobacco Comment Cigars only, no cigarettes [facility] Start: 1960 Sex Assigned At Male C [facility] Start: 10-26-2020 End: 07-17-2023 Tobacco smoking status DEIS Unknown if ever smoked [facility] Start: 08-24-2022 End: 02-22-2023 History of Social function [facility] Start: 08-24-2022 End: 02-22-2023 Tobacco use panel [facility] Start: 04-06-2012 National Score (1-10 0), lower number is lower risk 67 [facility] Start: 04-06-2020 Gender identity Identifies as male gender (finding) [facility] Start: 04-06-2020 Sexual orientation Heterosexual (fin ding) [facility] Start: 04-13-2024 End: 12-10-2024 Tobacco smoking status NHIS Current some day smoker [facility] Start: 01-07-2025 Tobacco smoking stat us NHIS Smokes tobacco daily (finding) [facility] Medical Equipment Procedure Code Equipment Code [...] EPICORD, 3 X 5 FDA Sta rt: 01-27-2023 Arthroplasty, toe EPICORD, 3 X 5 FDA [...] 3 X 5 FDA Sta rt: 06-01-2022 [id number], [id number], [id number], [id number] Start: 01-19-2021 End: 12-31-2023 Comment on above: USE DIRECTED TWIC E DAILY Use 4 pen needles da beverley Use as instructed; 3 strips per day, IDDM, E 11.42 Use as instructed; 3 lancets daily, IDDM, E11.42 Use FOUR pen needles daily ([id number]) Metal-backed pat jean prosthesis ()[id number] FDA Start: 07-17-2023 ([id number]) Coated knee femu r prosthesis ()[id number] ()[id number] FDA Start: 07-17-2023 ([id number]) Coated knee tibi a prosthesis ()[id number] ()[id number] FDA Start: 07-17-2023 ([id number]) Tibial insert ()[id number] FDA Start: 07-17-2023 MEDTRONIC SPINAL CORD STIMULATOR FDA Start: 10-22-2024 MEDTRONIC SPINAL CORD STIMULATOR FDA Start: 10-22-2024 MEDTRONIC SPINAL CORD STIMULATOR FDA Start: 10-22-2024 SCREW FDA Start: 01-07-2025 TORNIER PERFORM REVERSED AUGMENTED GLENOID FDA Start: 01-07-2025 TORNIER PERFORM REVERSED GLENOID FDA Start: 01-07-2025 TORNIER PERFORM REVERSED GLENOSPHERE FDA Start: 01-07-2025 Polyethylene rev erse shoulder prosthesis cup ()[id number] FDA Start: 01-07-2025 Coated shoulder humeral stem prosthesis ()[id number] FDA Start: 01-07-2025 Goals Date Patient Goal Desired Activity /State Functional Status Date Assessment Result Facility 01-08-2025 Functional status Ambulates [facility] Work Phone: 07-18-2023 Functional status Patient Activity Chair [facility] Work Phone: 07-18-2023 Functional status With Assist of 1 [facility] Work Phone: 04-05-2014 Are you deaf, or do you have serious difficulty hearing No 04/05/2014 10:32 AM Joshua Allen [facility] 04-05-2014 Are you blind, or do you have serious difficulty seeing, even when wearing glasses No 04/05/2014 10:32 AM Kush Allena [facility] 04-05-2014 Do you have serious difficulty walking or climbing stairs No 04/05/2014 10:32 AM Joshua Allen [facility] 04-05-2014 Do you have difficul ty dressing or bathing No 04/05/2014 10:32 AM Joshua Allen [facility] 04-05-2014 Because of a physica l, mental, or emotional condition, do you have difficulty doing errands alone such as visiting a physician's office or shopping No 04/05/2014 10:32 AM Joshua Allen [facility] Mental Status Date Assessment Result Facility 01-08-2025 Cognitive function Voice/Name [facility] Work Phone: 07-18-2023 Cognitive function Level Of Cons ciousness Awake;Alert;Appropriate;Fol lows Commands [facility] Work Phone: 07-18-2023 Cognitive function Voice/Name [facility] Work Phone: 12-21-2022 Cognitive function Voice/Name [facility] Work Phone: 06-01-2022 Cognitive function Voice/Name [facility] Work Phone: 04-05-2014 Because of a physica l, mental, or emotional condition, do you have serious difficulty concentrating, remembering, or making decisions No 04/05/2014 10:32 AM EST Joshua Hinton [facility] Clinical Notes 08-18-2014 to 01-08-2025 Note Date & Type Note Facility 01-08-2025 Consult note [facility] 01-08-2025 Hospital Discharge instructions Additional Instructions Date of Discharge: 01/08/25 [facility] Work Phone: 01-08-2025 Note [facility] Medical Records Department [address] [place] [address] Discharge Summary 01/08/25 1153 MR#: [id number] Acct: [id number] Name: ISA MAYEN Rep #: [id number] : [id number] 64 From: Dianne BROWN PCP: RICARDO ABRAHAM MD Status:DIS RUDDY Location: [place] [address] Providers Date of Admission: 01/07/25 Date of Discharge: 01/08/25 Primary Care Physician: RICARDO ABRAHAM MD Consultations 01/07/25 13:26 Consult: Hospitalist Routine Consulting Provider: Ann Mansfield Reason for Consult: medical management s/p R total shoulder EMERGENT Consult: No MD Notified: Yes Date Notified: 01/07/25 Time Notified: 15:17 Method of Notification: Text 01/07/25 18:25 Consult: Onc/Wound/sterile tech Routine Comment: Reason for Consult:: Left-Heel- Diabetic foot ulcer Reason For Visit: RIGHT REVERSE TOTAL SHOULDER ARTHROPLASTY, ERAS Diagnosis Discharge Diagnosis (1) Type 2 diabetes mellitus with diabetic polyneuropathy: Status: Acute Code(s): E11.42 - Type 2 diabetes mellitus with diabetic polyneuropathy Qualifiers: Diabetes mellitus terminal clerk insulin use: with terminal clerk use Qualified Code(s): E11.42 - Type 2 diabetes mellitus with diabetic polyneuropathy; Z79.4 - emt intermediate (current) use of insulin (2) Status post total shoulder arthroplasty: Status: Acute Code(s): Z96.619 - Presence of unspecified artificial shoulder joint Plan: Postop day 1 status post right reverse total shoulder arthroplasty with Dr. Garcia 1. Will continue PT today. Sling at all times to right upper extremity. Nonweightbearing to right upper extremity 2. plan for discharge this afternoon following PT 3. Patient will follow up for post op appointment as previously scheduled 4. Patient has outpatient PT appointment as previously scheduled in 2 weeks 5. WBC 16.5 acute reactive leukocytosis: secondary to pre operative decadron. no acute systemic signs of infection. will monitor, and likely self resolve. 6. H/H 13.3/37.7: post operavtive anemia secondary to acute blood loss intraoperatively. Patient is asymptomatic at this time. No intraoperative complications. will continue to monitor. no acute interventions. 7. DVT prophylaxis : Aspirin 81 mg twice daily x 2 weeks 8. Pain control: patient instructed to take tylenol 500mg 2 tablets TID. resume his percocet as previously prescribed at home. per Dr. Pascual recommendations will add 15mg MS contin TID for pain control 9. Patient also given a prescription of meloxicam, senna, doxycycline 100 mg twice daily x 1 week. 10. ok to remove post op dressing. post op day 5 Medications at Discharge Home Medications amlodipine 10 mg tablet 10 mg PO DAILY 09/23/15 hydrochlorothiazide 25 mg tablet 25 mg PO DAILY 09/23/15 pregabalin 150 mg capsule (Lyrica) 150 mg PO .qd 09/23/15 lisinopril 20 mg tablet 20 mg PO DAILY 10/07/20 insulin aspart (niacinamide)(U-100) 100 unit/mL(3 mL) subcutaneous pen (Fiasp FlexTouch U-100 Insulin) 10 unit subcut TID PRN for blood sugar 05/28/22 insulin glargine U-300 conc 300 unit/mL (1.5 mL) subcutaneous pen (Toujeo SoloStar U-300 Insulin) 20 unit subcut DAILY 12/14/22 sennosides 8.6 mg-docusate sodium 50 mg tablet (Stool Softener-Stimulant Laxative) 2 tab PO BID PRN constipation 04/13/24 tirzepatide 10 mg/0.5 mL subcutaneous pen injector (Mounjaro) 10 mg subcut STAPLETON 04/13/24 ondansetron 4 mg disintegrating tablet 4 mg PO Q8H PRN nausea and vomiting #14 tabs 04/17/24 oxycodone-acetaminophen 10 mg-325 mg tablet (Percocet) 1 tab PO Q6H PRN pain 7 days #28 tabs 04/24/24 sertraline 50 mg tablet 50 mg PO DAILY 12/10/24 tizanidine 4 mg tablet 2 - 4 mg PO TID PRN PRN muscle spasm 12/10/24 acetaminophen 500 mg tablet 1,000 mg (2 x 500 mg) PO Q8 #180 tabs 01/08/25 aspirin 81 mg tablet,delayed release 81 mg PO BID #30 tabs 01/08/25 doxycycline hyclate 100 mg capsule 100 mg PO BID 7 days #14 caps 01/08/25 meloxicam 7.5 mg tablet 7.5 mg PO BID #60 tabs 01/08/25 Hospital Course Summary of Care Provided Hospital Course: Patient is s/p right reverse total shoulder arthroplasty with Dr. Garcia 01/07/2025. Patient resting comfortably in bed. Rates pain 5 /10. States taking Tylenol and oxycodone as needed and ice help to relieve pain. Patient has been up with therapy. Sling in place at all times. Afebrile, no chest pain, shortness of breath, negative calf pain/ erythema, and no other signs of DVT. Physical Exam Narrative Patient resting comfortably in bed side chair Sling in place to right upper extremity No signs of acute distress Satting well on room air Limb is warm to touch, Sensation intact throughout entire right upper extremity extremity, Radial pulses bounding Dressing clear dry intact Calf nontender to palpation, no erythema, no edema. Negative Homans Weight / BMI Weight Weight: 121.5 kg Body Mass Index (BMI) 36.3 (more content not included)... [facility] 01-08-2025 Progress note Note Date/Time January 08, 2025 8:[address] [place] [address] Medical Records Department [address] [place] [address] Progress Note - Hospitalist 01/08/25 0711 MR#: [id number] Acct: [id number] Name: ISA MAYEN Rep #:[id number] 35 : 1960 64 From: Meredith Momin MD PCP: RICARDO ABRAHAM MD Status:ADM RUDDY Location: [place] [id number] Subjective Subjective Patient is a 64-year-old gentleman who underwent reverse total shoulder arthroplasty on 01/07/2025 on account of right shoulder rotator cuff tear arthropathy. The hospitalist service was consulted to assist with management ofpatient medical comorbidities Objective Data Objective Data Vital Signs: Vital Signs Temp Pulse Resp BP Pulse Ox O2 Del Method O2 Flow Rate 97.5 F L 60 18 143/88 H 96 Room Air 4 01/08/25 06:30 01/08/25 06:30 01/08/25 06:30 01/08/25 06:30 01/08/25 06:30 01/08/25 06:30 01/07/25 14:15 Oxygen Flow Rate (L/min) 4 Oxygen Delivery Method Room Air Weight: 121.5 kg Body Mass Index (BMI) 36.3 Intake & Output: Intake and Output for Last 24 Hours 01/06/25 01/07/25 01/08/25 23:59 23:59 23:59 Intake Total 2152 / 2502 943.5 / 943.5 Output Total 150 / 150 Balance 2001 943.5 / 943.5 Lab / Micro Data 01/08/25 05:45 01/08/25 05:45 Labs: Laboratory Results - last 24 hr 01/07/25 22:28: POC Glucose 337 H 01/08/25 05:45: WBC 16.5 H, RBC 4.60, Hgb 13.3, Hct 37.7 L, MCV 82.0, MCH 28.9, MCHC 35.3, RDW Std Deviation 40.5, RDW Coeff of Mimi 13.7, Plt Count 180, MPV 10.4, Sodium 140, Potassium 4.2, Chloride 106, Carbon Dioxide 21.5, Anion Gap 12, BUN 16, Creatinine 0.95, Estim Creat Clear Calc 105.73, Est GFR (MDRD) Non-Af 89, BUN/Creatinine Ratio 16.5, Glucose 156 H, Calcium 9.3 01/08/25 06:21: POC Glucose 142 H Micro: Microbiology 12/11/24 12:33 Swab (Method) Nasal Screen MRSA/MSSA - Final Radiography Diagnostic Testing: Radiology Impression Shoulder X-Ray 01/07/25 13:20 IMPRESSION: Expected postoperative appearance following shoulder arthroplasty. Reading Location: [facility] Physical Exam Narrative GENERAL: cooperative HEENT: Atraumatic; normocephalic EYES; Anicteric, Normal Conjunctiva NECK; supple, normal thyroid, RESPIRATORY: Diminished to auscultation CARDIOVASCULAR: Regular S1 S2, GI: soft, normoactive bowel sounds, : No Renal angle tenderness; EXTREMITIES: No edema, no clubbing, MUSCULOSKELETAL: Right upper extremity immobilized in a sling NEURO: Awake; no lateralizing signs. SKIN: No Rash PSYCH; Flat affect Assessment & Plan Assessment/Plan (1) Type 2 diabetes mellitus with diabetic polyneuropathy: QUALIFIERS: Diabetes mellitus terminal clerk insulin use: with terminal clerk use Qualified Code(s): E11.42 - Type 2 diabetes mellitus with diabetic polyneuropathy; Z79.4 - penitentiary (current) use of insulin PLAN: Plan Patient is a 64-year-old gentleman who underwent reverse total shoulder arthroplasty on 01/07/2025 on account of right shoulder rotator cuff tear arthropathy. The hospitalist service was consulted to assist with management ofpatient medical comorbidities 1. Status post reverse total shoulder arthroplasty on 01/07/[address] Garcia on account of right shoulder rotator cuff tear arthropathy. Patient postoperative orders regarding pain management PT OT deferto primary service 2. Essential hypertension -I did continue patient home meds patient blood pressure appears well-controlledthis a.m. 3. Diabetes mellitus type II -patient's oral hypoglycemics held. Placed on long acting insulin, Accu-Cheks a.c. and at bedtime and covered with sliding scale insulin 4. Chronic pain -Follows with pain management. Plans for patient to resume care following discharge 5. Depression with anxiety ? Patient is on sertraline 6. Chronic diabetic foot ulcer - Patient has a chronic diabetic foot ulcer, Wound care consult has been placed 7. DVT prophylaxis ? Defer to primary service Time spent in the patient's overall evaluation,decision-making process, review of diagnostic data, adjustment of management, discussion with other providers, nursing nursing and ancillary staff involved in patient's care documentation, 36 Minutes Charges/Coding Visit Charges Inpatient E&M: 29671 Subs Hosp L2 01/08/25 0817 <Electronically signed by Meredith Momin MD> Cosigner Signature (if applicable): CC: ~ Signed [facility] Work Phone: 1(691) 249-200509-05-2025 Progress note [facility] Medical Records Department [address] [place] [address] Progress Note - Hospitalist 01/08/25 0711 MR#: [id number] Acct: [id number] Name: ISA MAYEN Rep #:[id number] 35 : 1960 64 From: Meredith Momin MD PCP: RICARDO ABRAHAM MD Status:ADM RUDDY Location: [place] [address] Subjective Subjective Patient is a 64-year-old gentleman who underwent reverse total shoulder arthroplasty on 01/07/2025 onaccount of right shoulder rotator cuff tear arthropathy. The hospitalist service was consulted to assist with management ofpatient medical comorbidities Objective Data Objective Data Vital Signs: Vital Signs Temp Pulse Resp BP Pulse Ox O2 Del Method O2 Flow Rate 97.5 F L 60 18 143/88 H 96 Room Air 4 01/08/25 06:30 01/08/25 06:30 01/08/25 06:30 01/08/25 06:30 01/08/25 06:30 01/08/25 06:30 01/07/25 14:15 Oxygen Flow Rate (L/min) 4 Oxygen Delivery Method Room Air Weight: 121.5 kg Body Mass Index (BMI) 36.3 Intake & Output: Intake and Output for Last 24 Hours 01/06/25 01/07/25 01/08/25 23:59 23:59 23:59 Intake Total 2151 / 2 943.5 / 943.5 Output Total 150 / 150 Balance 2001 943.5 / 943.5 Lab / Micro Data 01/08/25 05:45 01/08/25 05:45 Labs: Laboratory Results - last 24 hr 01/07/25 22:28: POC Glucose 337 H 01/08/25 05:45: WBC 16.5 H, RBC 4.60, Hgb 13.3, Hct 37.7 L, MCV 82.0, MCH 28.9, MCHC 35.3, RDW Std Deviation 40.5, RDW Coeff of Mimi 13.7, Plt Count 180, MPV 10.4, Sodium 140, Potassium 4.2, Chloride 106, Carbon Dioxide 21.5, Anion Gap 12, BUN 16, Creatinine 0.95, Estim Creat Clear Calc 105.73, Est GFR (MDRD) Non- Af 89, BUN/Creatinine Ratio 16.5, Glucose 156 H, Calcium 9.3 01/08/25 06:21: POC Glucose 142 H Micro: Microbiology 12/11/24 12:33 Swab (Method) Nasal Screen MRSA/MSSA - Final Radiography Diagnostic Testing: Radiology Impression Shoulder X-Ray 01/07/25 13:20 IMPRESSION: Expected postoperative appearance following shoulder arthroplasty. Reading Location: [facility] Physical Exam Narrative GENERAL: cooperative HEENT: Atraumatic; normocephalic EYES; Anicteric, Normal Conjunctiva NECK; supple, normal thyroid, RESPIRATORY: Diminished to auscultation CARDIOVASCULAR: Regular S1 S2, GI: soft, normoactive bowel sounds, : No Renal angle tenderness; EXTREMITIES: No edema, no clubbing, MUSCULOSKELETAL: Right upper extremity immobilized in a sling NEURO: Awake; no lateralizing signs. SKIN: No Rash PSYCH; Flat affect Assessment & Plan Assessment/Plan (1) Type 2 diabetes mellitus with diabetic polyneuropathy: QUALIFIERS: Diabetes mellitus terminal clerk insulin use: with terminal clerk use Qualified Code(s): E11.42 -Type 2 diabetes mellitus with diabetic polyneuropathy; Z79.4 - penitentiary (current) use of insulin PLAN: Plan Patient is a 64-year-old gentleman who underwent reverse total shoulder arthroplasty on 01/07/2025 onaccount of right shoulder rotator cuff tear arthropathy. The hospitalist service was consulted to assist with management ofpatient medical comorbidities 1. Status post reverse total shoulder arthroplasty on 01/07/[address] Garcia on account of right shoulder rotator cuff tear arthropathy. Patient postoperative orders regarding pain management PT OT deferto primary service 2. Essential hypertension -I did continue patient home meds patient blood pressure appears well- controlledthis a.m. 3. Diabetes mellitus type II -patient's oral hypoglycemics held. Placed on long acting insulin, Accu-Cheks a.c. and at bedtime and covered with sliding scale insulin 4. Chronic pain -Follows with pain management. Plans for patient to resume care following discharge 5. Depression with anxiety ? Patient is on sertraline 6. Chronic diabetic foot ulcer - Patient has a chronic diabetic foot ulcer, Wound care consult has been placed 7. DVT prophylaxis ? Defer to primary service Time spent in the patient's overall evaluation,decision-making process, review of diagnostic data, adjustment of management, discussion with other providers, nursing nursing and ancillary staff involved in patient's care documentation, 36 Minutes Charges/Coding Visit Charges Inpatient E&M: 10680 Subs Hosp L2 01/08/25 0817 Cosigner Signature (if applicable): CC: ~ Signed [facility]09-04-2025 Consult note Author Ann Mansfield [facility] Note Date/Time January 07, 2025 8:02pm [facility] Medical Records Department [address] [place] [address] Consultation - Hospitalist 01/07/251946 MR#: [id number] Acct: [id number] Name: ISA MAYEN Rep #:[id number] 07 : 1960 64 From: Ann Mansfield MD PCP: RICARDO ABRAHAM MD Status:ADM RUDDY Location: [place] [address] Assessment & Plan Assessment/Plan (1) Type 2 diabetes mellitus with diabetic polyneuropathy: QUALIFIERS: Diabetes mellitus skilled nursing insulin use: with skilled nursing use Qualified Code(s): E11.42 - Type 2 diabetes mellitus with diabetic polyneuropathy; Z79.4 - penitentiary (current) use of insulin PLAN: Plan #Hypertension - Will continue home blood pressure medications with holding parameters # Chronic pain -Follows with pain management -Scheduled Tylenol - Patient's home Oxy 10 every 6 continued as well as his pregabalin - Patient also placed on scheduled MS Contin #Type 2 diabetes mellitus -Glucose checks and sliding scale insulin - Continue long-acting insulin but at lower dose to avoid hypoglycemia - Can uptitrate as tolerated - Resume home dosing on discharge unless any significant concerns arise #Depression/anxiety -Continue home medications # Right shoulder rotator cuff tear arthropathy - Status post right reverse total shoulder arthroplasty with Dr. Garcia 01/07/25 - Management/pain management per primary # Chronic diabetic foot ulcer - Patient has a chronic diabetic foot ulcer, used to follow with wound care but has been doing some corn care at home every day and reports it has slowly been healing - Wound care consult has been placed #DVT ppx: Timing and agent discretion of primary Ann Mansfield MD Time spent in the patient's overall evaluation, decision-making process, review of diagnostic data, adjustment of management, discussion with other providers, nursing and ancillary staff involved in patient's care documentation, 16 Minutes HPI Consult Data Date of Consult: 01/07/25 HPI Narrative Reason for Consultation: Postop medical management HPI Narrative: ISA MAYEN, is a 64-year-old male history of diabetes, hypertension, chronic pain and depression presented to [facility] 01/07/25 for aright reverse total shoulder arthroplasty. Hospitalist consulted for postoperative medical management. Patient evaluated bedside. He reports overall his shoulder is feeling fairly well, no shortness of breath, no other new or acute complaints. Does have a diabetic foot ulcer that he reports is chronic, does wound care himself every day and said it slowly healing. [facility] Medical History Difficulty chewing Burn History of steroid therapy Wears glasses [...] syndrome PVD (peripheral vascular disease) Home Medications ?Medication ?Instructions ?Recorded ?Last Taken ?Type amlodipine 10 mg tablet 10 mg PO DAILY 09/23/1507/28 History hydrochlorothiazide 25 mg tablet 25 mg PO DAILY 01/06/25 History pregabalin 150 mg capsule (Lyrica) 150 mg PO .qd 09/2201/05/25 History lisinopril 20 mg tablet 20 mg PO DAILY 10/07/2007/28 History insulin aspart 10 unit subcut TID PRN for b lood 05/28/22 04/16/24 History (niacinamide)(U-100) 100 unit/mL(3 sugar mL) subcutaneous pen (Fiasp FlexTouch U-100 Insulin) insulin glargine U-300 conc 300 20 unit subcut DAILY 0 12/14/22 01/06/25 History unit/mL (1.5 mL) subcutaneous pen (Toujeo SoloStar U-300 Insulin) sennosides 8.6 mg-docusate sodium 2 tab PO BID PRN con stipation 04/13/24 Unknown History 50 mg tablet (Stool Softener-Stimulant Laxative) tirzepatide 10 mg/0.5 mL 10 mg subcut STAPLETON 04/13/24 History subcutaneous pen injector (Mounjaro) ondansetron 4 mg disintegrating 4 mg PO Q8H PRN nausea and 04/17/24 Unknown Rx tablet vomiting #14 tabs oxycodone-acetaminophen 10 mg-325 1 tab PO Q6H PRN yari n 7 days #28 04/24/24 01/06/25 Rx mg tablet (Percocet) tabs sertraline 50 mg tablet 50 mg PO DAILY 12/10/2407/28 History tizanidine 4 mg tablet 2 - 4 mg PO TID PRN PRN musc le 12/10/24 Unknown History spasm Allergy/AdvReac Type Severity Reaction Status Date / Time codeine Allergy Rash Verified 01/07/25 10:12 Family History Mother Cancer Renal CA Hypertension Diabetes Father Cancer History of NH Lymphoma and Colon CA. Hypertension Diabetes Surgical History Hx of total knee arthroplasty Status post total right knee replacement History of Achilles tendon repair History of toe surgery Hx of cystoscopy Hx of shoulder surgery Hx of chest tube placement Status post arthroscopic surgery of left knee History of exploratory laparotomy History of arthroscopic surgery of shoulder History of left shoulder replacement Social History household members: none Smoking Status: Current every day smoker (Patient has not smoked for a week.) tobacco type: cigars how long ago did patient quit smoking: Quit 18 months prior, 5 cigars daily x 40 years prior to this. alcohol intake: never substance use type: does not use ROS ROS Narrative Pertinent positives and negatives as above Physical Exam Narrative General: Alert, oriented, no apparent distress HEENT: Atraumatic, normocephalic Eyes: Anicteric, normal conjunctiva, extraocular movements grossly intact Neck: Supple Respiratory: Clear to auscultation bilaterally, normal respiratory effort Cardiovascular: Regular rate and rhythm GI: Soft, nontender Extremities: Right arm in swing Musculoskeletal: Moving all extremities aside from right arm in sling Neuro: No overt focal neurological deficits Skin: No rashes appreciated but does note chronic diabetic foot ulcer Psych: Cooperative Lab / Micro Data 12/11/24 12:33 12/11/24 12:33 Imaging Radiology Impression Shoulder X-Ray 01/07/25 13:20 IMPRESSION: Expected postoperative appearance following shoulder arthroplasty. Reading Location: [id number] Charges/Coding Visit Charges Office Visits / Consults: 87407 OV L2 Est 10min 01/07/252001 <Electronically signed by Ann Mansfield MD> Cosigner Signature (if applicable): CC: Dr. Miguelito Garcia DO; RICARDO ABRAHAM MD~ Signed [facility] Work Phone: 1(392) 552-996309-04-2025 Consult note [facility] Medical Records Department [address] [place] [address] Consultation - Hospitalist 01/07/251946 MR#: [id number] Acct: [id number] Name: ISA MAYEN Rep #:[id number] 07 : 1960 64 From: Ann Mansfield MD PCP: RICARDO ABRAHAM MD Status:ADM RUDDY Location: [id number] Assessment & Plan Assessment/Plan (1) Type 2 diabetes mellitus with diabetic polyneuropathy: QUALIFIERS: Diabetes mellitus terminal clerk insulin use: with terminal clerk use Qualified Code(s): E11.42 -Type 2 diabetes mellitus with diabetic polyneuropathy; Z79.4 - penitentiary (current) use of insulin PLAN: Plan #Hypertension - Will continue home blood pressure medications with holding parameters # Chronic pain -Follows with pain management -Scheduled Tylenol - Patient's home Oxy 10 every 6 continued as well as his pregabalin - Patient also placed on scheduled MS Contin #Type 2 diabetes mellitus -Glucose checks and sliding scale insulin - Continue long-acting insulin but at lower dose to avoid hypoglycemia - Can uptitrate as tolerated - Resume home dosing on discharge unless any significant concerns arise #Depression/anxiety -Continue home medications # Right shoulder rotator cuff tear arthropathy - Status post right reverse total shoulder arthroplasty with Dr. Garcia 01/07/25 - Management/pain management per primary # Chronic diabetic foot ulcer - Patient has a chronic diabetic foot ulcer, used to follow with wound care but has been doing somecorn care at home every day and reports it has slowly been healing - Wound care consult has been placed #DVT ppx: Timing and agent discretion of primary Ann Mansfield MD Time spent in the patient's overall evaluation, decision-making process, review of diagnostic data,adjustment of management, discussion with other providers, nursing and ancillary staff involved in patient's care documentation, 16 Minutes HPI Consult Data Date of Consult: 01/07/25 HPI Narrative Reason for Consultation: Postop medical management HPI Narrative: ISA MAYEN, is a 64-year-old male history of diabetes, hypertension, chronic pain and depression presented to [facility] 01/07/25 for aright reverse total shoulder arthroplasty. Hospitalist consulted for postoperative medical management. Patient evaluated bedside. He reports overall his shoulder is feeling fairly well, no shortness of breath, no other new or acute complaints. Does have a diabetic foot ulcer that he reports is chronic, does wound care himself every day and said it slowly healing. [facility] Medical History Difficulty chewing Burn History of steroid therapy Wears glasses [...] syndrome PVD (peripheral vascular disease) Home Medications ?Medication ?Instructions ?Recorded ?Last Taken ?Type amlodipine 10 mg tablet 10 mg PO DAILY 09/23/1507/28 History hydrochlorothiazide 25 mg tablet 25 mg PO DAILY 01/06/25 History pregabalin 150 mg capsule (Lyrica) 150 mg PO .qd 09/2201/05/25 History lisinopril 20 mg tablet 20 mg PO DAILY 10/07/2007/28 History insulin aspart 10 unit subcut TID PRN for b lood 05/28/22 04/16/24 History (niacinamide)(U-100) 100 unit/mL(3 sugar mL) subcutaneous pen (Fiasp FlexTouch U-100 Insulin) insulin glargine U-300 conc 300 20 unit subcut DAILY 0 12/14/22 01/06/25 History unit/mL (1.5 mL) subcutaneous pen (Toujeo SoloStar U-300 Insulin) sennosides 8.6 mg-docusate sodium 2 tab PO BID PRN con stipation 04/13/24 Unknown History 50 mg tablet (Stool Softener-Stimulant Laxative) tirzepatide 10 mg/0.5 mL 10 mg subcut STAPLETON 04/13/24 History subcutaneous pen injector (Mounjaro) ondansetron 4 mg disintegrating 4 mg PO Q8H PRN nausea and 04/17/24 Unknown Rx tablet vomiting #14 tabs oxycodone-acetaminophen 10 mg-325 1 tab PO Q6H PRN yari n 7 days #28 04/24/24 01/06/25 Rx mg tablet (Percocet) tabs sertraline 50 mg tablet 50 mg PO DAILY 12/10/2407/28 History tizanidine 4 mg tablet 2 - 4 mg PO TID PRN PRN musc le 12/10/24 Unknown History spasm Allergy/AdvReac Type Severity Reaction Status Date / Time codeine Allergy Rash Verified 01/07/25 10:12 Family History Mother Cancer Renal CA Hypertension Diabetes Father Cancer History of NH Lymphoma and Colon CA. Hypertension Diabetes Surgical History Hx of total knee arthroplasty Status post total right knee replacement History of Achilles tendon repair History of toe surgery Hx of cystoscopy Hx of shoulder surgery Hx of chest tube placement Status post arthroscopic surgery of left knee History of exploratory laparotomy History of arthroscopic surgery of shoulder History of left shoulder replacement Social History household members: none Smoking Status: Current every day smoker (Patient has not smoked for a week.) tobacco type: cigars how long ago did patient quit smoking: Quit 18 months prior, 5 cigars daily x 40 years prior to this. alcohol intake: never substance use type: does not use ROS ROS Narrative Pertinent positives and negatives as above Physical Exam Narrative General: Alert, oriented, no apparent distress HEENT: Atraumatic, normocephalic Eyes: Anicteric, normal conjunctiva, extraocular movements grossly intact Neck: Supple Respiratory: Clear to auscultation bilaterally, normal respiratory effort Cardiovascular: Regular rate and rhythm GI: Soft, nontender Extremities: Right arm in swing Musculoskeletal: Moving all extremities aside from right arm in sling Neuro: No overt focal neurological deficits Skin: No rashes appreciated but does note chronic diabetic foot ulcer Psych: Cooperative Lab / Micro Data 12/11/24 12:33 12/11/24 12:33 Imaging Radiology Impression Shoulder X-Ray 01/07/25 13:20 IMPRESSION: Expected postoperative appearance following shoulder arthroplasty. Reading Location: [facility] Charges/Coding Visit Charges Office Visits / Consults: 27230 OV L2 Est 10min 01/07/252001 Cosigner Signature (if applicable): CC: Dr. Miguelito Garcia DO; RICARDO ABRAHAM MD~ Signed [facility]09-04-2025 Consult note Author Ish Chino [facility] Note Date/Time January 08, 2025 2:10pm [facility] Medical Records Department [address] [place] [address] Anesthesia Postop Eval II 01/07/25 1521 MR#: [id number] Acct: [id number] Name: ISA MAYEN Rep #:[id number] : 1960 64 From: Ish ESQUEDA PCP: RICARDO ABRAHAM MD Status:ADM RUDDY Y Race: C Location: MS3 [id number] -[id number] Anesthesia Postop Eval I Sum Postop Eval Completion status Anesthesia document: Postop Eval 1 completed: Yes Anesthesia Postop Eval I Summary Anesthesia Postop Eval I Summary: Anesthesia Postop Eval I: Assessment Summary Airway patent Yes 01/07/25 13:53 PRINTED CIRCUIT BOARD PCB DRAFTSMAN.TNES Spontaneous unlabored Yes 01/07/25 13:53 PRINTED CIRCUIT [employer] PCB DRAFTSMAN.TNES respirations Mental status nausea No 01/07/25 13:53 PRINTED CIRCUIT [employer] PCB DRAFTSMAN.TNES Vomiting No 01/07/25 13:53 PRINTED CIRCUIT [employer] PCB DRAFTSMAN.TNES Anesthesia Postop Eval I: Fluid Summary Crystalloid volume administer 1,500 01/07/25 13:53 PR[employer]ED [employer] PCB DRAFTSMAN.TNES (ml) Colloids volume administered ( ml) Blood Product volume administered (ml) Total IV fluid infused 1,500 01/07/25 13:53 PRINTED CIRCUIT BOARD PCB DRAFTSMAN.TNES Anesthesia Postop Eval I: Summary Notes Anesthesia Complication No 01/07/25 13:53 PRINTED CIRCUIT [employer] PCB DRAFTSMAN.TNES Anesthesia Complication Comment: Post-operative progress note Anesthesia: Postop Eval II Evaluation Mental status: Awake and Calm Pain Level: 2 nausea: No Vomiting: No Complications Anesthesia Complication: No 01/07/25 1521 <Electronically signed by Ish Chino CRNA> Date _ Ish Chino CRNA Cosigner Signature: Date CC: ~ Signed [facility] Work Phone: 1(608) 532-606609-04-2025 Evaluation note* Diagnosis Onset Date Resolution Status Admit Date Status post total shoulder arthroplasty acute January 07 1:59pm Type 2 diabetes mellitus wit h diabetic polyneuropathy acute 2024 1:59pm [facility] Work Phone: 1(693) 253-121209-04-2025 Consult note Author Juanjo Recinos [facility] Note Date/Time January 07, 2025 1:54pm [facility] Medical Records Department [address] [facility] [place] [address] Anesthesia Postop Eval I 01/07/25 1353 MR#: [id number] Acct: [id number] Name: ISA MAYEN Rep #:[id number] : 1960 64 From: Juanjo MARCIAL PCP: RICARDO ABRAHAM MD Status:REG [facility] Y Race: C Location: [place] [address] Anesthesia: Postop Eval I Current Vital Signs Temperature: 97 F Pulse Rate: 62 Blood Pressure: 106/64 Respiratory Rate: 16 Pulse Ox: 92 Assessment Airway patent: Yes Spontaneous unlabored respirations: Yes nausea: No Vomiting: No Anesthesia Complication: No Fluid Hydration Crystalloid volume administer (ml): 1,500 Total IV fluid infused: 1,500 Progress Note Anesthesia document: Postop Eval 1 completed: Yes 01/07/25 135 <Electronically signed by Juanjo Recinos CRNA> Date _ Juanjo Recinos CRNA Cosigner Signature: Date CC: ~ Signed [facility] Work Phone: 1(762) 108-344109-04-2025 Radiology Diagnostic study note [facility] Imaging Services [address] [facility] [place] [address] Shoulder min 2 Views MR#: [id number] Acct: [id number] Name: ISA MAYEN Rep #: [id number] : 1960 M 64 From: William Syed MD PCP: RICARDO ABRAHAM MD Status: REG [facility] Study:Shoulder min 2 Views Date of Exam: 01/07/25 Exam# [id number] Ordering Dr: Miguelito Garcia DO PROCEDURE: SHOULDER MIN 2 VIEWS 01/07/2025 REASON FOR EXAM: POST OP TECHNIQUE: Procedure Code: MATILDE Modality: DX Procedure: SHOULDER MIN 2 VIEWS Laterality: Right COMPARISON: October 18, 2023 FINDINGS: Bones: Interval placement of a reverse total shoulder arthroplasty. No hardwarefailure. No fracture. Joints: Anatomic alignment Soft tissues: Mild soft tissue gas is present that is not unexpected. RAD/Shoulder min 2 Views IMPRESSION: Expected postoperative appearance following shoulder arthroplasty. Reading Location: [id number] CC: Dr. Miguelito Garcia, DO; RICARDO ABRAHAM MD ~ Supplier Quality Specialist: Signed [facility]09-04-2025 Consult note [facility] Medical Records Department [address] [facility] [place] [address] Anesthesia Postop Eval I 01/07/25 1353 MR#: [id number] Acct: [id number] Name: ISA MAYEN Rep #:[id number] : 1960 64 From: Juanjo MARCIAL PCP: RICARDO ABRAHAM MD Status:REG [facility] Y Race: C Location: [place] [address] Anesthesia: Postop Eval I Current Vital Signs Temperature: 97 F Pulse Rate: 62 Blood Pressure: 106/64 Respiratory Rate: 16 Pulse Ox: 92 Assessment Airway patent: Yes Spontaneous unlabored respirations: Yes nausea: No Vomiting: No Anesthesia Complication: No Fluid Hydration Crystalloid volume administer (ml): 1,500 Total IV fluid infused: 1,500 Progress Note Anesthesia document: Postop Eval 1 completed: Yes 01/07/25 1354 PRINTED CIRCUIT BOARD PCB DRAFTSMAN> Date _ Juanjo Recinos PRINTED [employer] BOARD PCB DRAFTSMAN Cosigner Signature: Date CC: ~ Signed [facility]09-04-2025 Procedure note [facility] Medical Records Department [address] [place] [address] Operative Report 01/07/25 1327 MR#: [id number] Acct: [id number] Name: ISA MAYEN Rep #:[id number] : 1960 64 From: Miguelito looney DO PCP: RICARDO ABRAHAM MD Status:[facility] Location: [place] [address] Operative Report (Standard) Operative Information Date of Procedure: 01/07/25 Pre-Operative Diagnosis: Right shoulder rotator cuff tear arthropathy Post-Operative Diagnosis: Right shoulder rotator cuff tear arthropathy Surgery/Procedure Performed: Right reverse total shoulder arthroplasty emergency room clerk: Yes Food Cart Attendant: Dianne Walls Tasks completed by assistant curator: Opening & closing, Implanting device, Hemostasis: Electrocautery and Retracting Additional interior design assistant?: No Type of Anesthesia: General/Regional RN Documented Start/Stop Times: Operation Date: 01/07/25 12:00 Case Time Into Pre-Op 01/07/25 09:41 Anesthesia Start 01/07/25 11:35 Into Room 01/07/25 11:35 Procedure Start 01/07/25 12:03 Procedure Start Time: 12:03 Procedure Stop Time: 13:34 Select all DRAINS/GRAFTS/IMPLANTS that apply: Implanted device Implanted device details: Tornier Aequalis PerFORM+ reversed baseplate 29 mm full wedge, standardglenosphere cobalt chrome 42 mm diameter, Tornier perform inlay stem size # 4, +4 mm retentive size number 4 by 42 mm diameter polyethyleneinsert, short central post and peripheral screws x4. Estimated Blood Loss: 150 cc Specimen collected: No Description of surgery: Patient arrived to [facility] morning of the procedure and was greeted by the same day surgery staff. Prior to his procedure, I greeted the patient in the preoperative holding area I identified the patient by name, record number, and date of . Informed consent was confirmed. The operative extremity was marked. All questions were answered to patient satisfaction. An interscalene block was administered prior to procedure by anesthesia staff for postoperative and intraoperative analgesia. At time of his procedure, patient was brought to the operative suite and positioned supine on a standard table with a beachchair attachment. General anesthesia was induced after all bony prominences were well-padded. Endotracheal tube was placed. After adequate anesthesia and securing the tube, we prepared the patient to be positioned in the beachchair position. A well-padded head of design was applied. The nonoperative extremity was placed in a wellarm serrano. He was then brought into the beachchair position after we confirmedan appropriate blood pressure. We then spun the bed 45 degrees. The operative extremity was then prepared. In the butterfly wing of the bed was removed and awell-padded torso strap was applied to secure the patient to the bed. The operative extremity was now free. We then prepped and draped the right upper extremity in normal, sterile orthopedic fashion. We then performed a timeout with all parties in attendance in agreement with theside, site, and operation be performed. 3 g Ancef was administered prior to incision by anesthesia staff, as well as 1 g TXA IV. No concerns were voiced and we elected to proceed. I first marked a standard deltopectoral incision just lateral to the coracoid process in line with the long axis of the humerus. Skin was sharply incised with 10 blade scalpel. I then dissected bluntly through the subcutaneous layersand found the fat stripe between the deltoid and pectoralis major.The cephalicvein was then identified and protected. It was retracted laterally with the deltoid. I then bluntly dissected underneath the deltoid with a Santiago elevator. Ly retractor was placed. Theupper 1 cm of the pectoralis major was released. Biceps was completely ruptured. A remnant was identified at the supraglenoid tubercle. Subscapularis and supraspinatus were completely ruptured. Anterior capsule was partially intact. Anterior capsule was then tagged and released peeling up from the upper humerus. Humeral head was then dislocated anteriorly. Appropriate access to the humeral head was confirmed. I then subluxed the humeral head posteriorly with a Fukuda retractor placed around the posterior lipof the glenoid. Inferior capsule was tension. I was able to palpate the axillary nerve. Inferior capsule was then released to the 4 o'clock position of the glenoid face. I then remove the Fukuda retractor and redislocated the shoulder anteriorly. I then made a anatomic neck cut of the cartilaginous surface of the humeral head. Sizing plate for a size # 4 stem was utilized to determine appropriate reaming size. A central pin was placed engaging the lateral cortex of the humerus. A size #4 reamer was used to ream the humeral metaphysis and prepare for the inlay stem. A canal finding reamer was utilized prior to sequential broaching to a size # 4 short stem with excellent rotational and axial purchase in the humerus. I remove the broach handle left the size #[address] Ithen subluxed the humerus posterior to the glenoid. I then placed retractors around the posterior and anterior glenoid to expose theglenoid. Glenoid labrum was removed with Bovie cautery protecting the axillary nerve. We then used the wedged guide from [employer] to position our centering pin, exiting approximately 25 mm from the joint surface along the anterior scapula. Guide was removed and pin was analyzed and compared to preoperative planning. Itappeared to be in appropriate position. The augmented wedge reamer was then used to prepare the glenoid. We then removed the reamer and used the cannulated drill for the short central post. Post and baseplate was assembled on the back table. We then inserted the baseplate and central post the assembled baseplate to an appropriate depth with good press-fit purchase. AFreer was used to confirm depth. Cortical screws then were placed in the peripheral holes with good purchase. The baseplate had excellent purchase and the entire scapula would rotate with rotation of the baseplate. We then impacted the 42 mm glenosphere with a standard eccentricity and tightened the locking screw mechanism. We then removed retractors and turned our attention back to the humerus. I placed a +6 mm retentivepolyethylene insert. I then reduced the shoulder. There was excellent range of motion and stabilityin all planes of motion. We selected this as our final size. We removed trials from the humerus after finaldislocation. I copiously irrigated the canal. Broach was placed on hand and then impacted jordi appropriate depth. Final +6 mm retentive polyethylene insert was placed. Final reduction was then performed. We then copiously irrigated the wound with sterile Betadine and normal saline solution. 1 g vancomycin powder was placed within the wound prior to closure. We reapproximated the interval with 0 Vicryl suture. Subcutaneous layers were reapproximated with 2 -0 Vicryl suture. Skin was finally running V-Loc 3-0 Monocryl suture and Dermabond. A sterile silver Mepilex dressing was applied. Patient was then placed in an ultra sling. Patient tolerated procedure well without complication. He was positioned back in the supine position extubated in the operative suite. He was transferred to the rney and subsequently to PACU in stable condition. Need for skilled interior design assistant: Dianne Walls PA-C was critical to the outcome of thecase. During the course of the procedure the physician interior design assistant played a vitalrole. Her intimate knowledge of my stepsin the procedure aided in safe and expedient completion of the procedure. The PA played a vital role in positioning particularly in obtaining the appropriate positioning. The PA was also vital in theretraction of soft tissues during the exposure and protecting vital structures. The PA was also vital and protecting soft tissues during times of bony cuts. She also played a vital role in closure with my direct supervision. The PA was also important during reduction and dislocation of the joint and trials intraoperatively. Intraoperative medications: 2 g Ancef IV, 1 g TXA IV x2 Post Operative Plan: Patient will be placed observation overnight due to medical comorbidities. Patient has chronic opioid tolerance. Plan of care was discussed with his pain management provider Dr. Pascual. Plan will romero continue his Percocet 10 mg every 6 hours and add MS Contin. Weightbearing: Nonweightbearing right upper extremity, okay for pendulums. Range of motion of wristelbow and hand as tolerated. Antibiotics:3 g Ancef IV prior to incision, 24 hours IV antibiotics postoperatively DVT Prophylaxis: Aspirin enteric-coated 81 mg twice daily starting tomorrow Hess: None Dressing: Maintain silver dressing x5 days. Okay to shower dressing on started on day 4 X-Rays: 2 weeks postop in the office Pain Medication: See above Follow-up: 2 weeks post-operatively with me in the office Surgical Findings: Massive right rotator cuff tear with cuff tear arthropathy changes. Torn bicepstendon. Stable rightshoulder following reduction. Complications Complications: No Admit VTE Documentation VTE Present on Admission: No VTE Mechan Device Prophylaxis: SCD's VTE Pharm Prophylaxis ordered?: Yes 01/07/25 1343 Cosigner Signature (if applicable): CC: Dr. Kevin George MD; Dr. Miguelito Garcia DO; RICARDO ABRAHAM MD~ Signed [facility]09-04-2025 Consult note Author Tony Garcia [facility] Note Date/Time January 07, 2025 11:15am [facility] Medical Records Department [address] [place] [address] Pre-Anesthesia Evaluation 01/07/25 1053 MR#: [id number] Acct: [id number] Name: ISA MAYEN Rep #:[id number] : 1960 64 From: Tony Garcia MD PCP: RICARDO ABRAHAM MD Status:REG [facility] Y Race: C Location: [place] [address]-1 ASA Classification* ASA Classification ASA Classification: 3 Assessment & Plan Anesthesia* Anesthesia Assessment Anesthesia Assessment: Discussed sedation and/or anesthesia options, risks, benefits, and alternatives with patient/parents/legal guardian/POA. Questions invited. The patient/parents/legal guardian/POA seems to understand and agrees to proceedwith anesthesia plan. Reviewed the physical assessment, medical history, allergy history and patient home medications list prior to surgery/procedure/anesthetic and documented any changes. Performed airway and anesthesia risk assessments. Anesthesia Type Anesthesia Type: General and Block (Patient is consented for interscalene block.) History Source History Obtained from:: Patient and Chart Anesthesia Focused Assessment* Temperature: 97.8 F Pulse Rate: 72 Blood Pressure: 145/67 Respiratory Rate: 16 Pulse Ox: 99 Oxygen Delivery Method: Room Air Airway Assessment Mouth opens: >3 cm Mallampati Score: IV Teeth Condition: Dentures (Patient has full upper and lower dentures. They are out.) Neck Range of motion (ROM): Limited ROM (Somewhat Decreased) Labs Anesthesia Preop lab: CBC WBC 14.3 K/mm3 (4.4-11.0) H 12/11/24 12: 5 RBC 4.87 M/mm3 (4.6-6.2) 12/11/24 12:12/11/24 Hgb 14.0 g/dL (13.0-16.5) 12/11/24 12:12/11/24 Hct 40.7 % (40-54) 12/11/24 12:12/11/24 Plt Count 223 K/mm3 (150-450) 12/11/24 12:33 12/11/24 CHEMISTRY Potassium 4.1 mmol/L (3.3-5.1) 12/11/24 12:33 12/11/24 Sodium 138 mmol/L (133-145) 12/11/24 12:33 12/11/24 Magnesium 2.1 mg/dL (1.5-2.2) 12/11/24 12:32 12/11/24 BUN 13 mg/dL (4-19) 12/11/24 12:33 12/11/24 Creatinine 0.91 mg/dL (0.70-1.20) 12/11/24 12:33 12/11/24 Glucose 133 mg/dL (70-99) H 12/11/24 12:33 12/11/24 POC Glucose 102 mg/dL (74-106) 04/17/24 11:47 04/17/24 COAG Pre-Assessment Diagnosis/Proposed Procedure Planned Operative Procedure(s): (R) RIGHT REVERSE TOTAL SHOULDER ARTHROPLASTY, ERAS 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 - social insurance specialist: 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 - social insurance specialist Hx Hospitalization No 12/10/24 08:47 Any Problems With Anesthesia No 12/10/24 08:47 Cholinesterase deficiency No 12/10/24 08:47 You/Your Family Experience No 12/10/24 08:47 fever (hyperthermia) with Relationship Recent Exposure to Contagious No 01/07/25 10:20 Disease Does patient have nerve Yes 12/10/24 08:47 stimulator Patient instructed to have device shut off --Does patient have Pacemaker No 01/07/25 10:20 or ICD? When Was Last Pacemaker Check QUESTION #4 FULL TEXT: You/Your Family Experience fever (hyperthermia) with Anesthesia Last Oral Intake Last Oral intake: Last Oral Intake NPO since 23:00 01/07/25 10:20 Meds taken in AM with sips of No 01/07/25 10:20 water? Meds patient instructed to take am of surgery PONV PONV - social insurance specialist: PONV - social insurance specialist Female No 12/10/24 08:47 HX of Motion Sickness No 12/10/24 08:47 HX of N/V After Surgery No 12/10/24 08:47 Non-Smoker No 12/10/24 08:47 Duration of Surgery greater Yes 12/10/24 08:47 than 60 minutes Number of Risk Factors 1 12/10/24 08:47 PONV Score Low Risk 12/10/24 08:47 Height & Weight Height & Weight: Anesthesia: Height & Weight Height 6 ft 01/07/25 10:20 Weight: 121.5 kg 01/07/25 10:20 Body Mass Index (BMI) 36.3 01/07/25 10:20 Respiratory Assessment Respiratory Assessment - social insurance specialist: Respiratory Tract Infection Hx - social insurance specialist Hx Respiratory Tract Infection No 12/10/24 08:47 STOP Sleep Apnea STOP Sleep Apnea - social insurance specialist: STOP Sleep Apnea - social insurance specialist Hx Hypertension Yes 12/10/24 08:47 Hx Sleep Apnea No 12/10/24 08:47 CPAP Yes 04/13/24 13:34 BIPAP No 04/13/24 13:34 Do you snore loudly (louder No 12/10/24 08:47 than talking or can be heard Do you often feel tired/ No 12/10/24 08:47 fatigued/ sleepy during daytime? Has anyone observed you stop No 12/10/24 08:47 breathing during sleep? STOP Results Negative 12/10/24 08:47 QUESTION #5 FULL TEXT : Do you snore loudly (louder than talking or can be heard through closed doors)? 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 Specify any problems Hx of Preganancy in last 3 N/A 12/10/24 08:47 Months Nurse Filling Out Transfusion JZOLLINGE 12/10/24 08:47 & Questions: Date: 12/10/24 12/10/24 08:47 Time: 08:48 12/10/24 08:47 Patient unable to answer at this time (ie. confused, unrespo /Reproduction History /Reproductive History - social insurance specialist: /Reproductive Hx- social insurance specialist Hx Now No 12/10/24 08:47 Gestational Age (in weeks): EDC: Hx Hx Para Hx Section SAB No 12/10/24 08:47 Active Medications Active Medications: Current Medications Generic Name Dose Route Start Last Admin Trade Name Kristopher PRN Reason Stop Dose Admin Acetaminophen 1,000 mg 01/07/25 13:15 01/07/25 10:31 Acetaminophen 500 Mg Tablet PO 01/07/25 13:16 1,000 mg PREOP ONE Administration Celecoxib 400 mg 01/07/25 13:15 01/07/25 10:32 Celecoxib 200 Mg Capsule PO 01/07/25 13:16 400 mg PREOP ONE Administration Dexamethasone Sodium Phosphate 10 mg 01/07/25 13:15 01/07/25 10:03 Dexamethasone 10 Mg/Ml Vial IV 01/07/25 13:16 Not Given INTRAOP ONE Gabapentin 600 mg 01/07/25 13:15 01/07/25 10:32 Gabapentin 600 Mg Tablet PO 01/07/25 13:16 600 mg PREOP ONE Administration Lactated Ringer's 1,000 mls @ 999 mls/hr 01/07/25 13:15 01/07/25 10:31 IV 01/07/25 14:15 999 mls/hr .Q1H1M ENRIQUE Administration Cefazolin Sodium 3 gm/ Sodium 115 mls @ 150 mls/hr 01/07/25 13:15 01/07/25 10:02 Chloride IV 01/07/25 14:00 Not Given INTRAOP ONE Tranexamic Acid 1,000 mg/ 110 mls @ 660 mls/hr 01/07/25 13:15 01/07/25 10:03 Sodium Chloride IV 01/07/25 13:24 Not Given INTRAOP ONE Lactated Ringer's 1,000 mls @ 999 mls/hr 01/07/25 13:15 IV 01/07/25 14:15 .Q1H1M ENRIQUE Magnesium Sulfate 1 gm/ 102 mls @ 408 mls/hr 01/07/25 13:15 01/07/25 10:32 Dextrose IV 01/07/25 13:29 408 mls/hr PREOP ONE Administration Insulin Human Lispro 1 - 6 unit 01/07/25 13:15 Insulin Lispro 100 Unit/Ml Insuln.Pen SC Q4H PRN PRN BG>/= 180, SEE PROTOCOL Protocol PFSH Medical History Difficulty chewing Burn History of steroid therapy Wears glasses [...] syndrome PVD (peripheral vascular disease) Home Medications ?Medication ?Instructions ?Recorded ?Last Taken ?Type amlodipine 10 mg tablet 10 mg PO DAILY 09/23/1507/28 History hydrochlorothiazide 25 mg tablet 25 mg PO DAILY 01/06/25 History pregabalin 150 mg capsule (Lyrica) 150 mg PO .qd 09/2201/05/25 History lisinopril 20 mg tablet 20 mg PO DAILY 10/07/2007/28 History insulin aspart 10 unit subcut TID PRN for b lood 05/28/22 04/16/24 History (niacinamide)(U-100) 100 unit/mL(3 sugar mL) subcutaneous pen (Fiasp FlexTouch U-100 Insulin) insulin glargine U-300 conc 300 20 unit subcut DAILY 0 12/14/22 01/06/25 History unit/mL (1.5 mL) subcutaneous pen (Toujeo SoloStar U-300 Insulin) sennosides 8.6 mg-docusate sodium 2 tab PO BID PRN con stipation 04/13/24 Unknown History 50 mg tablet (Stool Softener-Stimulant Laxative) tirzepatide 10 mg/0.5 mL 10 mg subcut STAPLETON 04/13/24 History subcutaneous pen injector (Tami) ondansetron 4 mg disintegrating 4 mg PO Q8H PRN nausea and 04/17/24 Unknown Rx tablet vomiting #14 tabs oxycodone-acetaminophen 10 mg-325 1 tab PO Q6H PRN yari n 7 days #28 04/24/24 01/06/25 Rx mg tablet (Percocet) tabs sertraline 50 mg tablet 50 mg PO DAILY 12/10/2407/28 History tizanidine 4 mg tablet 2 - 4 mg PO TID PRN PRN musc le 12/10/24 Unknown History spasm Allergy/AdvReac Type Severity Reaction Status Date / Time codeine Allergy Rash Verified 01/07/25 10:12 Family History Mother Cancer Renal CA Hypertension Diabetes Father Cancer History of NH Lymphoma and Colon CA. Hypertension Diabetes Surgical History Hx of total knee arthroplasty Status post total right knee replacement History of Achilles tendon repair History of toe surgery Hx of cystoscopy Hx of shoulder surgery Hx of chest tube placement Status post arthroscopic surgery of left knee History of exploratory laparotomy History of arthroscopic surgery of shoulder History of left shoulder replacement Social History household members: none Smoking Status: Current some day smoker tobacco type: cigars how long ago did patient quit smoking: Quit 18 months prior, 5 cigars daily x 40 years prior to this. alcohol intake: never substance use type: does not use Review of Systems (Anesthesia) ROS Narrative System reviewed and no additional complaints, except as documented. 01/07/25 1115 <Electronically signed by Tony alexandra MD> Date _ Tony Garcia MD Cosigner Signature: Date CC: ~ Signed [facility] Work Phone: [phone]) [phone] Consult note [facility] Medical Records Department [facility] [place] [address] Pre-Anesthesia Evaluation 01/07/25 1053 MR#: [id number] Acct: [id number] Name: ISA MAYEN Rep #:[id number] : 1960 64 From: Tony Garcia MD PCP: RICARDO ABRAHAM MD Status:REG [facility] Y Race: C Location: [place] [address] ASA Classification* ASA Classification ASA Classification: 3 Assessment & Plan Anesthesia* Anesthesia Assessment Anesthesia Assessment: Discussed sedation and/or anesthesia options, risks, benefits, and alternatives with patient/parents/legal guardian/POA. Questions invited. The patient/parents/legal guardian/POA seems to understand and agrees to proceedwith anesthesia plan. Reviewed the physical assessment, medical history, allergy history and patient home medications list prior to surgery/procedure/anesthetic and documented any changes. Performed airway and anesthesia risk assessments. Anesthesia Type Anesthesia Type: General and Block (Patient is consented for interscalene block.) History Source History Obtained from:: Patient and Chart Anesthesia Focused Assessment* Temperature: 97.8 F Pulse Rate: 72 Blood Pressure: 145/67 Respiratory Rate: 16 Pulse Ox: 99 Oxygen Delivery Method: Room Air Airway Assessment Mouth opens: >3 cm Mallampati Score: IV Teeth Condition: Dentures (Patient has full upper and lower dentures. They are out.) Neck Range of motion (ROM): Limited ROM (Somewhat Decreased) Labs Anesthesia Preop lab: CBC WBC 14.3 K/mm3 (4.4-11.0) H 12/11/24 12: 5 RBC 4.87 M/mm3 (4.6-6.2) 12/11/24 12:12/11/24 Hgb 14.0 g/dL (13.0-16.5) 12/11/24 12:12/11/24 Hct 40.7 % (40-54) 12/11/24 12:12/11/24 Plt Count 223 K/mm3 (150-450) 12/11/24 12:12/11/24 CHEMISTRY Potassium 4.1 mmol/L (3.3-5.1) 12/11/24 12:12/11/24 Sodium 138 mmol/L (133-145) 12/11/24 12:12/11/24 Magnesium 2.1 mg/dL (1.5-2.2) 12/11/24 12:32 12/11/24 BUN 13 mg/dL (4-19) 12/11/24 12:33 12/11/24 Creatinine 0.91 mg/dL (0.70-1.20) 12/11/24 12:33 12/11/24 Glucose 133 mg/dL (70-99) H 12/11/24 12:33 12/11/24 POC Glucose 102 mg/dL (74-106) 04/17/24 11:47 04/17/24 COAG Pre-Assessment Diagnosis/Proposed Procedure Planned Operative Procedure(s): (R) RIGHT REVERSE TOTAL SHOULDER ARTHROPLASTY, ERAS 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 - social insurance specialist: 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 - social insurance specialist Hx Hospitalization No 12/10/24 08:47 Any Problems With Anesthesia No 12/10/24 08:47 Cholinesterase deficiency No 12/10/24 08:47 You/Your Family Experience No 12/10/24 08:47 fever (hyperthermia) with Relationship Recent Exposure to Contagious No 01/07/25 10:20 Disease Does patient have nerve Yes 12/10/24 08:47 stimulator Patient instructed to have device shut off --Does patient have Pacemaker No 01/07/25 10:20 or ICD? When Was Last Pacemaker Check QUESTION #4 FULL TEXT: You/Your Family Experience fever (hyperthermia) with Anesthesia Last Oral Intake Last Oral intake: Last Oral Intake NPO since 23:00 01/07/25 10:20 Meds taken in AM with sips of No 01/07/25 10:20 water? Meds patient instructed to take am of surgery PONV PONV - social insurance specialist: PONV - social insurance specialist Female No 12/10/24 08:47 HX of Motion Sickness No 12/10/24 08:47 HX of N/V After Surgery No 12/10/24 08:47 Non-Smoker No 12/10/24 08:47 Duration of Surgery greater Yes 12/10/24 08:47 than 60 minutes Number of Risk Factors 1 12/10/24 08:47 PONV Score Low Risk 12/10/24 08:47 Height & Weight Height & Weight: Anesthesia: Height & Weight Height 6 ft 01/07/25 10:20 Weight: 121.5 kg 01/07/25 10:20 Body Mass Index (BMI) 36.3 01/07/25 10:20 Respiratory Assessment Respiratory Assessment - social insurance specialist: Respiratory Tract Infection Hx - social insurance specialist Hx Respiratory Tract Infection No 12/10/24 08:47 STOP Sleep Apnea STOP Sleep Apnea - social insurance specialist: STOP Sleep Apnea - social insurance specialist Hx Hypertension Yes 12/10/24 08:47 Hx Sleep Apnea No 12/10/24 08:47 CPAP Yes 04/13/24 13:34 BIPAP No 04/13/24 13:34 Do you snore loudly (louder No 12/10/24 08:47 than talking or can be heard Do you often feel tired/ No 12/10/24 08:47 fatigued/ sleepy during daytime? Has anyone observed you stop No 12/10/24 08:47 breathing during sleep? STOP Results Negative 12/10/24 08:47 QUESTION #5 FULL TEXT : Do you snore loudly (louder than talking or can be heard through closeddoors)? 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 Specify any problems Hx of Preganancy in last 3 N/A 12/10/24 08:47 Months Nurse Filling Out Transfusion JZOLLINGE 12/10/24 08:47 & Questions: Date: 12/10/24 12/10/24 08:47 Time: 08:48 12/10/24 08:47 Patient unable to answer at this time (ie. confused, unrespo /Reproduction History /Reproductive History - social insurance specialist: /Reproductive Hx- social insurance specialist Hx Now No 12/10/24 08:47 Gestational Age (in weeks): EDC: Hx Hx Para Hx Section SAB No 12/10/24 08:47 Active Medications Active Medications: Current Medications Generic Name Dose Route Start Last Admin Trade Name Freq PRN Reason Stop Dose Admin Acetaminophen 1,000 mg 01/07/25 13:15 01/07/25 10:31 Acetaminophen 500 Mg Tablet PO 01/07/25 13:16 1,000 mg PREOP ONE Administration Celecoxib 400 mg 01/07/25 13:15 01/07/25 10:32 Celecoxib 200 Mg Capsule PO 01/07/25 13:16 400 mg PREOP ONE Administration Dexamethasone Sodium Phosphate 10 mg 01/07/25 13:15 01/07/25 10:03 Dexamethasone 10 Mg/Ml Vial IV 01/07/25 13:16 Not Given INTRAOP ONE Gabapentin 600 mg 01/07/25 13:15 01/07/25 10:32 Gabapentin 600 Mg Tablet PO 01/07/25 13:16 600 mg PREOP ONE Administration Lactated Ringer's 1,000 mls @ 999 mls/hr 01/07/25 13:15 01/07/25 10:31 IV 01/07/25 14:15 999 mls/hr .Q1H1M ENRIQUE Administration Cefazolin Sodium 3 gm/ Sodium 115 mls @ 150 mls/hr 01/07/25 13:15 01/07/25 10:02 Chloride IV 01/07/25 14:00 Not Given INTRAOP ONE Tranexamic Acid 1,000 mg/ 110 mls @ 660 mls/hr 01/07/25 13:15 01/07/25 10:03 Sodium Chloride IV 01/07/25 13:24 Not Given INTRAOP ONE Lactated Ringer's 1,000 mls @ 999 mls/hr 01/07/25 13:15 IV 01/07/25 14:15 .Q1H1M ENRIQUE Magnesium Sulfate 1 gm/ 102 mls @ 408 mls/hr 01/07/25 13:15 01/07/25 10:32 Dextrose IV 01/07/25 13:29 408 mls/hr PREOP ONE Administration Insulin Human Lispro 1 - 6 unit 01/07/25 13:15 Insulin Lispro 100 Unit/Ml Insuln.Pen SC Q4H PRN PRN BG>/= 180, SEE PROTOCOL Protocol [facility] History Difficulty chewing Burn History of steroid therapy Wears glasses [...] syndrome PVD (peripheral vascular disease) Home Medications ?Medication ?Instructions ?Recorded ?Last Taken ?Type amlodipine 10 mg tablet 10 mg PO DAILY 09/23/1507/28 History hydrochlorothiazide 25 mg tablet 25 mg PO DAILY 01/06/25 History pregabalin 150 mg capsule (Lyrica) 150 mg PO .qd 09/2201/05/25 History lisinopril 20 mg tablet 20 mg PO DAILY 10/07/2007/28 History insulin aspart 10 unit subcut TID PRN for b lood 05/28/22 04/16/24 History (niacinamide)(U-100) 100 unit/mL(3 sugar mL) subcutaneous pen (Fiasp FlexTouch U-100 Insulin) insulin glargine U-300 conc 300 20 unit subcut DAILY 0 12/14/22 01/06/25 History unit/mL (1.5 mL) subcutaneous pen (Toujeo SoloStar U-300 Insulin) sennosides 8.6 mg-docusate sodium 2 tab PO BID PRN con stipation 04/13/24 Unknown History 50 mg tablet (Stool Softener-Stimulant Laxative) tirzepatide 10 mg/0.5 mL 10 mg subcut STAPLETON 04/13/24 History subcutaneous pen injector (Tami) ondansetron 4 mg disintegrating 4 mg PO Q8H PRN nausea and 04/17/24 Unknown Rx tablet vomiting #14 tabs oxycodone-acetaminophen 10 mg-325 1 tab PO Q6H PRN yari n 7 days #28 04/24/24 01/06/25 Rx mg tablet (Percocet) tabs sertraline 50 mg tablet 50 mg PO DAILY 12/10/24 09/0 07/28 History tizanidine 4 mg tablet 2 - 4 mg PO TID PRN PRN musc le 12/10/24 Unknown History spasm Allergy/AdvReac Type Severity Reaction Status Date / Time codeine Allergy Rash Verified 01/07/25 10:12 Family History Mother Cancer Renal CA Hypertension Diabetes Father Cancer History of NH Lymphoma and Colon CA. Hypertension Diabetes Surgical History Hx of total knee arthroplasty Status post total right knee replacement History of Achilles tendon repair History of toe surgery Hx of cystoscopy Hx of shoulder surgery Hx of chest tube placement Status post arthroscopic surgery of left knee History of exploratory laparotomy History of arthroscopic surgery of shoulder History of left shoulder replacement Social History household members: none Smoking Status: Current some day smoker tobacco type: cigars how long ago did patient quit smoking: Quit 18 months prior, 5 cigars daily x 40 years prior to this. alcohol intake: never substance use type: does not use Review of Systems (Anesthesia) ROS Narrative System reviewed and no additional complaints, except as documented. 01/07/25 1115 ibrahima LEYVA> Date _ Tony Garcia MD Cosigner Signature: Date CC: ~ Signed [facility]08-28-2025 History of Present illness Narrative* Sharlene Escobar APRN.BALLING HEAD TENDER - 12/31/2024 1:00 PM EDT Reason for Consultation: DM Type 2 Referring Physician: SELF HISTORY OF PRESENT ILLNESS Mr. Mayen is a 64 year old male presenting here today for a follow up of DM Type 2. As I recall,he was initially diagnosed with diabetes 2008. LV 07/02/24 A1C today is 6.1 History of diabetes, hypertension, hyperlipidemia, microalbuminuria, retinopathy, peripheral neuropathy, obesity, carpal tunnel, amputation of left toe, right knee replacement. He had biopsy with carpal tunnel biopsy in 2023 appears to note amyloid deposits per message in Mychart from 02/04/24 from the ortho department. [facility] Had a fall slipping on wet carpet that had just been cleaned. Had rotator cuff tears in the right shoulder and will be having surgery on 01/07/25 Also burned his left index finger on bauer grease. This is healing Still dealing with ulcer on left foot. Brother of liver cancer. Another brother has leukemia Had testing and PET scan done and states it was ok. Down 73lb since 2022 He is under the care of pain management, ortho Current diabetes regimen is as follows: Mounjaro 10 mg weekly Tresiba 20 units daily in AM Novolog TID meals per SS Previous DM medications: metformin--tongue swelling Trulicity--ineffective; changed to ozempic Jardiance--precaution d/t foot ulcer Novolog 70/30-- ineffective Glipizide --started insulin Ozempic--short of breath he is checking his blood glucose continuously with Alonso 2 CGM he does bring a log book today for review. LDE Blood Sugar Frequency: CGM download (12/18/24 to 12/31/24 ) TIR 99% High 0% Very high 0% Low 1% Very low 0% Avg glucose 107 GMI 5.9 BG ranges 60's to 160 BG is overall stable all day. No significant spikes to BG with meals. Hypoglycemia frequency: occasionally Hypoglycemia awareness: [...] Drug use: No Allergies As of Date: 12/31/2024 Allergen Noted Reaction CODEINE 08/06/2008 Rash METFORMIN 04/05/2014 Other: See Comments SEASONAL ALLERGIES 02/06/2011 Other: See Comments Fully Assessed 12/31/2024 Current Outpatient Medications Medication Sig Dispense Refill insulin degludec (TRESIBA FLEXTOUCH U-100) 100 unit/mL (3 mL) injection pen Inject 20 Units subcutaneously every morning. 15 mL 11 insulin aspart U-100 (NOVOLOG FLEXPEN U-100 INSULIN) 100 unit/mL (3 mL) Inject subcutaneously TID meals per sliding scale up to 15 units daily. 15 mL 3 tirzepatide (MOUNJARO) 10 mg/0.5 mL pen injector Inject 10 mg subcutaneously one time a week. 6 mL 3 flash glucose sensor (FREESTYLE ALONSO 2 SENSOR) kit use as directed; one sensor every 14 days, IDDM, E11.42 6 Kit 3 lisinopril (ZESTRIL) 20 mg tablet Take 20 mg by mouth once daily. insulin needles, DISPOSABLE, (BD INSULIN PEN NEEDLE UF) 31 gauge x 5/16 Use FOUR pen needles Each 3 flash glucose scanning reader (FREESTYLE ALONSO 2 READER) Use as instructed to monitor glucose continuously, IDDM, E11.42 1 Each 0 pregabalin (LYRICA) 150 mg capsule Take 1 capsule by mouth three times daily. Dxhjkrnn-Thnhsewcv-Zkueajr HMB (KIRK) 7-7-1.5 gram pwpk Take 1 [...] and supplies per insuranceformulary 1 Each 0 atorvastatin (LIPITOR) 20 mg tablet Take 1 tablet by mouth daily at bedtime. 90 tablet 3 Lancets lancets Use as instructed; 3 lancets daily, IDDM, E11.42 300 Each 3 No current facility-administered medications for this visit. REVIEW OF SYSTEMS Answers submitted by the patient for this visit: Core Review of Systems (Submitted on 12/30/2024) Fever : No Night sweats: No Recent unintentional weight change: No Nasal Congestion: No Hearing Loss: No Vision Disturbance: No A cough: No Difficulty Breathing?: No Chest [...] Loss: No Seizures: No PHYSICAL EXAMINATION BP 100/71 Pulse 63 Resp 16 Ht 185.4 cm (6' 0.99) Wt 125.1 kg (275 lb 12.7 oz) SpO2 96% BMI 36.39 kg/m2 Physical Exam Constitutional: Appearance: Normal appearance. He is obese. Cardiovascular: Rate and Rhythm: Normal rate and regular rhythm. Pulmonary: Effort: Pulmonary effort is normal. Breath sounds: Normal breath sounds. Skin: General: Skin is warm and dry. Neurological: Mental Status: He is alert. Psychiatric: Mood and Affect: Mood normal. Behavior: Behavior normal. Foot: podiatry .DATA Creatinine Date Value Ref Range Status 04/24/2023 1.41 (H) 0.73 - 1.22 mg/dL Final Hemoglobin A1C (%) Date Value 01/05/2020 11.0 Hemoglobin A1C (POCT) (%) Date Value 07/02/2024 5.9 ) No components found for: URINEALBUMIN Cholesterol, Total (mg/dL) Date Value 04/24/2023 189 01/05/2020 179 HDL Cholesterol (mg/dL) Date Value 04/24/2023 39 01/05/2020 33 LDL Cholesterol, Calculated (mg/dL) Date Value 04/24/2023 112 01/05/2020 Unable to calculate due to increased Triglycerides. See LDL-Chol, Direct. Triglyceride (mg/dL) Date Value 04/24/2023 190 01/05/2020 526 IMPRESSION: Mr. Mayen is a 64 year old male here for evaluation of DM Type 2 complicated by hypertension, hyperlipidemia, peripheral neuropathy, retinopathy, microalbuminuria and obesity RECOMMENDATIONS: (E11.42, Z79.4) Type 2 diabetes mellitus with diabetic polyneuropathy, with long-term current use of insulin ([facility]) (primary encounter diagnosis) Comment: Glycemic control is overall stable. Lower insulin to reduce hypoglycemia. Neuropathy monitored and managed per Pain management and podiatry Plan: HEMOGLOBIN A1C (POC), insulin degludec (TRESIBA FLEXTOUCH U-100) 100 unit/mL (3 mL) injection pen, Blood-Glucose Sensor (FREESTYLE ALONSO 2 PLUS SENSOR) miller Lower insulin glargine to 15 units daily Continue Mounjaro Continue novolog SS PRN Follow up in 6 months. 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 Lower insulin to reduce hypoglycemia. Retinopathy monitored and managed per retinal specialist/medical practice administrator. Plan: HEMOGLOBIN A1C (POC), insulin degludec (TRESIBA FLEXTOUCH U-100) 100 unit/mL (3 mL) injection pen, Blood-Glucose Sensor (FREESTYLE ALONSO 2 PLUS SENSOR) miller Lower insulin glargine to 15 units daily Continue Mounjaro Continue novolog SS PRN Follow up in 6 months. (E11.29, R80.9, Z79.4) Type 2 diabetes mellitus with microalbuminuria, with long-term current use of insulin (HCC) Comment: Glycemic control is overall stable. Lower insulin to reduce hypoglycemia. Urine protein is monitored and stable. He is on an EVIE Plan: HEMOGLOBIN A1C (POC), insulin degludec (TRESIBA FLEXTOUCH U-100) 100 unit/mL (3 mL) injection pen, Blood-Glucose Sensor (FREESTYLE ALONSO 2 PLUS SENSOR) miller Lower insulin glargine to 15 units daily Continue Mounjaro Continue novolog SS PRN Follow up in 6 months. (E11.649) Hypoglycemia due to type 2 diabetes mellitus (HCC) Comment/Plan: continue alonso--upgrade to 2 plus; insulin adjusted (I10) Essential hypertension Comment/Plan: Managed per PCP; he is on an EVIE (E78.2) Mixed hyperlipidemia Comment/Plan: atorvastatin (LIPITOR) 20 mg tablet he was not taking atorvastatin but willing to resume. (E85.9) Amyloidosis, unspecified type (HCC) Comment/Plan: he no showed his appointment with Dr. Prabhakar. Advised patient to reschedule (E66.812) Obesity, Class II, BMI 35-39.9 Comment: Body mass index is 36.39 kg/m . He has lost 73 lb since November 2021 Plan: Encouraged increase dietary and exercise efforts as able Medical Decision Making: Level: 4 - Moderate Sharlene Escobar, MSN, PERFORMANCE IMPROVEMENT MANAGER, QUALITY SUPERVISOR-C, [facility] Endocrinology [facility] Medical Office Building/[address], [address] [place] [address] Fax: [facility] NoteHNO ID: [id number] Author: SHARLENE ESCOBAR APRN.BALLING HEAD TENDER Service: ? Author Type: Nurse Practitioner Type: Progress Notes Filed: 12/31/2024 15:32 Note Text: Reason for Consultation: DM Type 2 Referring Physician: SELF HISTORY OF PRESENT ILLNESS Mr. Mayen is a 64 year old male presenting here today for a follow up of DM Type 2. As I recall, he was initially diagnosed with diabetes 2008. LV 07/02/24 A1C today is 6.1 History of diabetes, hypertension, hyperlipidemia, microalbuminuria, retinopathy, peripheral neuropathy, obesity, carpal tunnel, amputation of left toe, right knee replacement. He had biopsy with carpal tunnel biopsy in 2023 appears to note amyloid deposits per message in Mychart from 02/04/24 from the ortho department. He no showed his appointment with Dr. Prabhakar in July. Had a fall slipping on wet carpet that had just been cleaned. Had rotator cuff tears in the right shoulder and will be having surgery on 01/07/25 Also burned his left index finger on bauer grease. This is healing Still dealing with ulcer on left foot. Brother of liver cancer. Another brother has leukemia Had testing and PET scan done and states it was ok. Down 73lb since 2022 He is under the care of pain management, ortho Current diabetes regimen is as follows: Mounjaro 10 mg weekly Tresiba 20 units daily in AM Novolog TID meals per SS Previous DM medications: metformin--tongue swelling Trulicity--ineffective; changed to ozempic Jardiance--precaution d/t foot ulcer Novolog 70/30-- ineffective Glipizide --started insulin Ozempic--short of breath he is checking his blood glucose continuously with Alonso 2 CGM he does bring a log book today for review. LDE Blood Sugar Frequency: CGM download (12/18/24 to 12/31/24 ) TIR 99% High 0% Very high 0% Low 1% Very low 0% Avg glucose 107 GMI 5.9 BG ranges 60's to 160 BG is overall stable all day. No significant spikes to BG with meals. Hypoglycemia frequency: occasionally Hypoglycemia awareness: [...] Drug use: No Allergies As of Date: 12/31/2024 Allergen Noted Reaction CODEINE 08/06/2008 Rash METFORMIN 04/05/2014 Other: See Comments SEASONAL ALLERGIES 02/06/2011 Other: See Comments Fully Assessed 12/31/2024 Current Outpatient Medications Medication Sig Dispense Refill insulin degludec (TRESIBA FLEXTOUCH U-100) 100 unit/mL (3 mL) injection pen Inject 20 Units subcutaneously every morning. 15 mL 11 insulin aspart U-100 (NOVOLOG FLEXPEN U-100 INSULIN) 100 unit/mL (3 mL) Inject subcutaneously TID meals per sliding scale up to 15 units daily. 15 mL 3 tirzepatide (MOUNJARO) 10 mg/0.5 mL pen injector Inject 10 mg subcutaneously one time a week. 6 mL 3 flash glucose sensor (FREESTYLE ALONSO 2 SENSOR) kit use as directed; one sensor every 14 days, IDDM, E11.42 6 Kit 3 lisinopril (ZESTRIL) 20 mg tablet Take 20 mg by mouth once daily. insulin needles, DISPOSABLE, (BD INSULIN PEN NEEDLE UF) 31 gauge x 5/16 Use FOUR pen needles daily 400 Each 3 flash glucose scanning reader (FREESTYLE ALONSO 2 READER) Use as instructed to monitor glucose continuously, IDDM, E11.4 (more content not included)... [facility]08-08-2025 Radiology Diagnostic study note [facility] Imaging Services [address] [place], [place] [address] Extremity Upper without Contra MR#: [id number] Acct: [id number] Name: ISA MAYEN Rep #: [id number] : 1960 M 64 From: Miah Almazan MD PCP: RICARDO ABRAHAM MD Status: REG CLI Study:Extremity Upper without Contra Date of Exam: 12/11/24 Exam# [id number] Ordering Dr: Miguelito Garcia DO PROCEDURE: EXTREMITY UPPER WITHOUT CONTRA 12/11/2024 REASON FOR EXAM: SHOULDER PAIN, right. Four prior right shoulder surgeries. TECHNIQUE: EXTREMITY UPPER WITHOUT CONTRA Coronal and Sagittal reconstruction series were provided. One or more dose reduction techniques were used (e.g., Automated exposure control, adjustment of the mA and/or kV according to patient size, use of iterative reconstruction technique. RADIATION DOSE SUMMARY: CTDlvol: 49.65 mGy DLP: 1339.80 mGycm COMPARISON: Right shoulder MRI of 11/24/2024. FINDINGS: Widening of the right glenohumeral space is seen, most probably due to persistence of the previously described joint effusion. Stable degenerative changes of the right acromioclavicular and glenohumeral joints, including irregularity about the right humeral head greater tuberosity. Stable osseous alignment is seen. No fracture or dislocation is evident. CT/Extremity Upper without Contra IMPRESSION: 1. Stable degenerative changes. 2. No fracture or dislocation is seen. 3. Additional findings as noted. Reading Location: [place] [address] CC: Dr. Miguelito Garcia DO; RICARDO ABRAHAM MD ~ Supplier Quality Specialist: Signed [facility]03-27-2025 Telephone encounter Note* Telephone Encounter - Naty Sen MA - 07/30/2024 1:41 PM EDT Received a request for office notes from [facility] Notes from: 07/02/2024 Faxed via [employer] at [phone] Transmission Successful. [facility]03-27-2025 Miscellaneous Notes* Telephone Encounter - Naty Sen MA - 07/30/2024 1:41 PM EDT Received a request for office notes from [facility] [employer] [place] Notes from: 07/02/2024 Faxed via [employer] at [phone] Transmission Successful. documented in this encounterCity Hospital03-07-2025 Telephone encounter Note * Telephone Encounter - Yanet Karimi RN - 07/10/2024 12:27 PM EST Received notification from [facility] that they no longer cover Insulin Glargine Solostar U300. They do cover: Insulin Glargine-Yfgn Pen U100 Insulin Degludec Pen U100 Please review and advise. [facility]25 Miscellaneous Notes* Telephone Encounter - Yanet Karimi RN - 07/10/2024 12:27 PM EST Received notification from [facility] that they no longer cover Insulin Glargine Solostar U300. They do cover: Insulin Glargine-Yfgn Pen U100 Insulin Degludec Pen U100 Please review and advise. documented in this encounterCity Hospital03-06-2025 Telephone encounter Note * Telephone Encounter - Yanet Karimi RN - 07/09/2024 12:25 PM EST Insurance prefers ([employer]) Insulin Aspart instead of Lyumjev. Attached is RX. Please resend [facility]20[facility] Miscellaneous Notes* Telephone Encounter - Yanet Karimi RN - 07/09/2024 12:25 PM EST Insurance prefers ([employer]) Insulin Aspart instead of Lyumjev. Attached is RX. Please resend documented in this encounterCity Hospital03-04-2025 Telephone encounter Note * Telephone Encounter - Yanet Karimi RN - 07/07/2024 11:52 AM EST Images from the original note were not included. EDU MAYEN (Fried: [id number]) KEVIN Rx #: [id number] Need Help? Call us at Status Sent to Plan today Drug FreeStyle Alonso 2 Sensor Form [employer] Medicare Electronic Prior Authorization Request Form (2016 [facility]) Original Claim Info A6 Please abandon this request. This is for a medical supply covered under Part B and member does not have Part B coverage with us Patient notified via Somewhere. Closed [facility]-04[facility]2025 Miscellaneous Notes* Telephone Encounter - Yanet Karimi RN - 07/07/2024 11:52 AM EST Images from the original note were not included. EDU MAYEN (Fried: [id number]) KEVIN Rx #: [id number] Need Help? Call us at Status Sent to Plan today Drug FreeStyle Alonso 2 Sensor Form [employer] Medicare Electronic Prior Authorization Request Form (2017 [facility]) Original Claim Info A6 Please abandon this request. This is for a medical supply covered under Part B and member does not have Part B coverage with us Patient notified via [facility]istag[facility]. Closed documented in this encounterCity Hospital03-03-2025 Telephone encounter Note * Telephone Encounter - Melissa Green PA-C - 07/06/2024 1:41 PM EST Spoke with patient over the phone. 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 He will need to follow-up with our specialist in order to further differentiate the proteins and make a more definitive diagnosis. Patient already has a follow-up on July 14. [facility] Work Phone: [phone]) 353-380803-03-2025 Miscellaneous Notes* Telephone Encounter - Melissa Green PA-C - 07/06/2024 1:41 PM EST Spoke with patient over the phone. 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 He will need to follow-up with our specialist in order to further differentiate the proteins and make a more definitive diagnosis. Patient already has a follow-up on July 14. documented in this encounterCity Hospital02-28-2025 Telephone encounter Note * Telephone Encounter - Yanet Karimi RN - 07/03/2024 4:26 PM EST Images from the original note were not included. Approved Prior authorization approved Payer: [facility] Note from payer: Approved. This drug has [...] polyneuropathy, with long-term current use of insulin ([facility]); Type 2 diabetes dawit litus with microalbuminuria, with long-term current use of insulin ([facility]) This order has been released to its destination. To be filled at: [id number] [place] [address] [address] [facility] [phone] Pharmacy Benefits Open Encounter ISA MAYEN A - 2024 Community Cash PDP Retail Super ID ([employer]) Covered: Retail, Mail Order Unknown: Specialty, Long-Term Care BIN: [id number] : 1960 Group ID: [id number] PCN: [id number] Legal sex: M Group name: MYRA [id number] PDP [id number] Address: [address] [place] [address] Closed [facility]-28[facility] Miscellaneous Notes* Telephone Encounter - Yanet Karimi RN - 07/03/2024 4:26 PM EST Images from the original note were not included. Approved Prior authorization approved Payer: [facility] Note from payer: Approved. This drug has [...] use of insulin (HCC); Type 2 diabetes dawit litus with microalbuminuria, with long-term current use of insulin ([facility]) This order has been released to its destination. To be filled at: [id number] - [place] [address] [address] [facility] [phone] Pharmacy Benefits Open Encounter ISA MAYEN - 2024 Community Cash PDP Retail Super ID ([employer]) Covered: Retail, Mail Order Unknown: Specialty, Long-Term Care BIN: [id number] : 1960 Group ID: [id number] PCN: [id number] Legal sex: M Group name: MYRA [id number] PDP [id number] Address: [address] [place] [address] Closed * Telephone Encounter - Yanet Karimi RN - 07/03/2024 4:19 PM EST Images from the original note were not included. Prior Authorization History tirzepatide (MOUNJARO) 10 mg/0.5 mL pen injector History View all authorizations for this medication Waiting for Payer Response 07/03/2024 4:17 PM Deadline to reply: July 07, 2024 1:34 PM Sending user: Yanet Karimi RN Note to payer: The attachment was sent by alternative means. Payer: [facility] [phone] Attachment: The attachment was sent by alternative means. [email or web address] Case: [id number] Question Answer Is the request for Expedited Review? Yes No. By selecting Yes I certify that applying the 72 Hours standard review timeframe may seriously jeopardize the life or health of the enrollee or the enrollee ability to regain maximum function. NO Please select the member's diagnosis that this medication is primarily being prescribed for: Type 2diabetes mellitus (T2DM) For type 2 diabetes: does this request exceed 1 pen (0.5 mL) per week (i.e., 4 pens (2 mL) per 28 days or 12 pens (6 mL) per 84 days)? If yes, please provide the medication sig (i.e., directions for use) and supporting clinical rationale (e.g., inability to use or inadequate response after use of alower dose/quantity). No Closed 07/02/2024 1:34 PM Message source: PBM Close reason: The community health coordinator is not the PA processor for this patient and medication combination. Note from payer: [facility] does not manage prior authorizations for this patient. Please resubmit the ePArequest to [employer]. Payer: [employer] [phone] Waiting for Payer Response 07/02/2024 1:34 PM Sending user: Sharlene Escobar APRN.[facility] Payer: [employer] [phone] Faxed last office notes to [facility]. Transmission OK Will await approval/denial documented in this encounterCity Hospital02-28-2025 Telephone encounter Note * Telephone Encounter - Yanet Karimi RN - 07/03/2024 4:19 PM EST Images from the original note were not included. Prior Authorization History tirzepatide (MOUNJARO) 10 mg/0.5 mL pen injector History View all authorizations for this medication Waiting for Payer Response 07/03/2024 4:17 PM Deadline to reply: July 07, 2024 1:34 PM Sending user: Yanet Karimi RN Note to payer: The attachment was sent by alternative means. Payer: [facility] [phone] Attachment: The attachment was sent by alternative means. [email or web address] Case: [id number] Question Answer Is the request for Expedited Review? Yes No. By selecting Yes I certify that applying the 72 Hours standard review timeframe may seriously jeopardize the life or health of the enrollee or the enrollee ability to regain maximum function. NO Please select the member's diagnosis that this medication is primarily being prescribed for: Type 2diabetes mellitus (T2DM) For type 2 diabetes: does this request exceed 1 pen (0.5 mL) per week (i.e., 4 pens (2 mL) per 28 days or 12 pens (6 mL) per 84 days)? If yes, please provide the medication sig (i.e., directions for use) and supporting clinical rationale (e.g., inability to use or inadequate response after use of alower dose/quantity). No Closed 07/02/2024 1:34 PM Message source: PBM Close reason: The community health coordinator is not the PA processor for this patient and medication combination. Note from payer: [facility] does not manage prior authorizations for this patient. Please resubmit the ePArequest to [employer]. Payer: [facility] [phone] Waiting for Payer Response 07/02/2024 1:34 PM Sending user: Sharlene Escobar APRN.CNP Payer: [employer] [phone] Faxed last office notes to [facility]. Transmission OK Will await approval/denial [facility] Instructions* Patient Instructions* Sharlene Escobar APRN.CNP - 07/02/2024 1:24 PM [...] up in 6 months Sharlene Escobar, MSN, PERFORMANCE IMPROVEMENT MANAGER, QUALITY SUPERVISOR-C, [facility] Endocrinology [facility] Medical Office [facility]/[address], [address] [place] [address] Fax: documented in this encounterCity Hospital02-27-2025 History of Present illness Narrative* Sharlene Escobar APRN.KIERSTEN - 07/02/2024 1:00 PM EST Reason for Consultation: DM Type [...] and supplies per insuranceformulary 1 Each 0 tirzepatide (MOUNJARO) 10 mg/0.5 [...] gauge x 5/16 Use FOUR pen needles Each 3 atorvastatin (LIPITOR) 20 mg tablet [...] 1 capsule by mouth three times daily. Ixrsunho-Qlnfwtbfc-Vftdcfy HMB (KIRK) 7-7-1.5 gram pwpk Take 1 [...] edema, with long-term current use of insulin ([facility]) (primary encounter diagnosis) Comment: Glycemic control has been reasonable per the A1C however having more episodes of hypoglycemia and skipping insulin doses as a result. Retinopathy monitored and managed per retinal specialist/medical practice administrator. Plan: HEMOGLOBIN A1C (POC), COMPREHENSIVE METABOLIC PANEL, [...] polyneuropathy, with long-term current use of insulin ([facility]) Comment: Glycemic control has been reasonable per [...] unspecified type (HCC) Comment/Plan: CONSULT TO HEMATOLOGY/ONCOLOGY (E66.472) Obesity, Class II, BMI 35-39.9 Comment: Body [...] Level: 4 - Moderate Sharlene Escobar, MSN, PERFORMANCE IMPROVEMENT MANAGER, QUALITY SUPERVISOR-C, [facility] Endocrinology [facility] Medical Office [facility]/[address] [place], [place] [address] Fax: documented in this encounterCity Hospital02-27-2025 NoteHNO ID: [id number] Author: SHARLENE ESCOBAR APRN.BALLING HEAD TENDER Service: ? Author Type: Nurse Practitioner Type: [...] (BD INSULIN PEN (more content not included)... [facility]12-11-2024 Telephone encounter Note* Telephone Encounter - Yanet Karimi RN - 04/15/2024 10:21 AM EST Please review. [facility] Miscellaneous Notes* Telephone Encounter - Yanet Karimi RN - 04/15/2024 10:21 AM EST Please review. documented in this encounterCity Hospital12-11-2024 Telephone encounter Note * Telephone Encounter - Yanet Karimi RN - 04/15/2024 8:36 AM EST Please review. [facility]20[facility] Miscellaneous Notes* Telephone Encounter - Yanet Karimi RN - 04/15/2024 8:36 AM EST Please review. documented in this encounterCity Hospital12-09-2024 Telephone encounter Note * Telephone Encounter - Yanet Karimi RN - 04/13/2024 11:53 AM EST EDU MAYEN (Fried: [id number]) KEVIN Rx #: [id number] Need Help? Call us at Outcome Denied on April 10 by [employer] Medicare 2016 [facility] Request Reference Number: [id number]. FREESTY LIBR KIT 2 SENSOR is denied for not meeting the prior authorization requirement(s). Details of this decision are in the notice attached below or have been faxed to you. Drug FreeStyle Alonso 2 Sensor ePA cloud logo Form [employer] Medicare Part D Electronic Prior Authorization Form (2016 [employer]) Original Claim Info 70 Bill Medicare B Plan Exclusion Coverage may be avaiable as a Part B medical benefit. Closed [facility]20[facility] Miscellaneous Notes* Telephone Encounter - Yanet Karimi RN - 04/13/2024 11:53 AM EST EDU MAYEN (Fried: [id number]) KEVIN Rx #: [id number] Need Help? Call us at Outcome Denied on April 10 by [employer] Medicare 2016 [place] Request Reference Number: [id number]. FREESTY LIBR KIT 2 SENSOR is denied for not meeting the prior authorization requirement(s). Details of this decision are in the notice attached below or have been faxed to you. Drug FreeStyle Alonso 2 Sensor ePA cloud logo Form [employer] Medicare Part D Electronic Prior Authorization Form (2016 [place]) Original Claim Info 70 Bill Medicare B Plan Exclusion Coverage may be avaiable as a Part B medical benefit. Closed * Telephone Encounter - Yanet Karimi RN - 04/09/2024 12:01 PM EST EDU MAYEN (Fried: [id number]) KEVIN Rx #: [id number] Need Help? Call us at Status sent iconSent to Plan today Drug FreeStyle Alonso 2 Sensor ePA cloud logo Form [employer] Medicare Part D Electronic Prior Authorization Form (2016[facility]) Original Claim Info 70 Bill Medicare B Plan Exclusion Faxed last office notes to [employer]. Will await approval/denial documented in this encounterCity Hospital12-05-2024 Telephone encounter Note * Telephone Encounter - Yanet Karimi RN - 04/09/2024 12:01 PM EST EDU MAYEN (Fried: [id number]) KEVIN Rx #: [id number] Need Help? Call us at Status sent iconSent to Plan today Drug FreeStyle Alonso 2 Sensor ePA cloud logo Form [employer] Medicare Part D Electronic Prior Authorization Form (2016[facility]) Original Claim Info 70 Bill Medicare B Plan Exclusion Faxed last office notes to [facility]. Will await approval/denial [facility]10-[facility]20[facility] Telephone encounter Note* Telephone Encounter - Kaila Ulloa RN - 02/04/2024 10:13 AM EDT Received referral from Dr. Mansfield Called patient [...] call in 6 months. All questions answered. [facility]20[facility] Miscellaneous Notes* Telephone Encounter - Kaila Ulloa RN - 02/04/2024 10:13 AM EDT Received referral from Dr. Mansfield Called patient [...] months. All questions answered. documented in this encounterCity Hospital08-28-2024 Telephone encounter Note * Telephone Encounter - Yanet Karimi RN - 01/01/2024 1:06 PM EDT Isa Mayen (Fried: [id number]) KEVIN Rx #: [id number] Need Help? Call us at Outcome Approved today by [employer] Medicare 2017 [place] Request Reference Number: [id number]. INSULIN GLAR INJ 300/ML is approved through 05/05/2024. Yourpatient may now fill this prescription and it will be covered. Authorization Expiration Date: 05/05/2024 Drug Insulin Glargine Solostar 300UNIT/ML pen-injectors [facility] logo Form [employer] Medicare Part D Electronic Prior Authorization Form (2016 [place]) Original Claim Info 86,123 Product/Service Not Covered - Plan/Benefit Exclusion,Provide Notice: Medicare Prescription Drug Coverage and Your Rights Closed [facility]-28[facility]20[facility] Miscellaneous Notes* Telephone Encounter - Yanet Karimi RN - 01/01/2024 1:06 PM EDT Isa Mayen (Fried: [id number]) KEVIN Rx #: [id number] Need Help? Call us at Outcome Approved today by [employer] Medicare 2017 [facility] Request Reference Number: [id number]. INSULIN GLAR INJ 300/ML is approved through 05/05/2024. Yourpatient may now fill this prescription and it will be covered. Authorization Expiration Date: 05/05/2024 Drug Insulin Glargine Solostar 300UNIT/ML pen-injectors ePA [employer] logo Form [employer] Medicare Part D Electronic Prior Authorization Form (2016 [employer]) Original Claim Info [id number] Product/Service Not Covered - Plan/Benefit Exclusion,Provide Notice: Medicare Prescription Drug Coverage and Your Rights Closed * Telephone Encounter - Yanet Karimi RN - 01/01/2024 12:03 PM EDT Isa Mayen (Fried: [id number]) KEVIN Rx #: [id number] Need Help? Call us at Status sent iconSent to Plan today Drug Insulin Glargine Solostar 300UNIT/ML pen-injectors ePA cloud logo Form [employer] Medicare Part D Electronic Prior Authorization Form (2016 [employer]) Original Claim Info [id number] Product/Service Not Covered - Plan/Benefit Exclusion,Provide Notice: Medicare Prescription Drug Coverage and Your Rights Faxed last office notes to [employer]. Will await approval/denial documented in this encounterCity Hospital08-28-2024 Telephone encounter Note * Telephone Encounter - Yanet Karimi RN - 01/01/2024 12:03 PM EDT Isa Lalitmariuminderjit (Fried: [id number]) KEVIN Rx #: [id number] Need Help? Call us at Status sent iconSent to Plan today Drug Insulin Glargine Solostar 300UNIT/ML pen-injectors [facility] cloud logo Form [employer] Medicare Part D Electronic Prior Authorization Form (2016 [facility]) Original Claim Info 10,563 Product/Service Not Covered - Plan/Benefit Exclusion,Provide Notice: Medicare Prescription Drug Coverage and Your Rights Faxed last office notes to [employer]. Will await approval/denial [facility]-27[facility]20[facility] Telephone encounter Note* Telephone Encounter - Debra Hansen MA - 12/31/2023 3:03 PM EDT Faxed to [facility] at [phone], Transmission ok CLOSED [facility]20[facility] Miscellaneous Notes* Telephone Encounter - Debra Hansen MA - 12/31/2023 3:03 PM EDT Faxed to [facility] at [phone], Transmission ok CLOSED * Telephone Encounter - Sharlene Escobar APRN.CNP - 12/31/2023 2:19 PM EDT Please fax office note to pharmacy so he can get Alonso rx filled. Thank you documented in this encounterCity Hospital08-27-2024 Telephone encounter Note * Telephone Encounter - Sharlene Escobar APRN.CNP - 12/31/2023 2:19 PM EDT Please fax office note to pharmacy so he can get Alonso rx filled. Thank you [facility]08-27-2024 Instructions* Patient Instructions* Sharlene Escobar APRN.CNP - 12/31/2023 1:22 PM EDT Increase Mounjaro to 10 mg weekly. Lower Toujeo to 40 units daily in AM Lyumjev Breakfast 7 units Lunch 7 units Dinner 7 units Follow up in 6 months Sharlene Escobar, MSN, PERFORMANCE IMPROVEMENT MANAGER, QUALITY SUPERVISOR-C, [facility] Endocrinology [facility] Medical Office [facility]/[address] [place] [address] Fax: documented in this encounterCity Hospital08-27-2024 History of Present illness Narrative* Sharlene Escobar APRN.CNP - 12/31/2023 1:00 PM EDT Reason for Consultation: DM Type 2 Referring Physician: SELF HISTORY OF PRESENT ILLNESS Mr. Mayen is a 63 year old male presenting here today for a follow up of DM Type 2. As I recall,he was initially diagnosed with diabetes 2008. 06/10/23 [...] gauge x 5/16 Use FOUR pen needles [id number] Each 3 insulin glargine U-300 conc (TOUJEO [...] 1 capsule by mouth three times daily. Zcfyftps-Kdpjelkvr-Zqhjxbr HMB (KIRK) 7-7-1.5 gram pwpk Take 1 [...] and supplies per insuranceformulary 1 Each 0 No current facility-administered medications [...] edema, with long-term current use of insulin ([facility]) (primary encounter diagnosis) Comment: Glycemic control is improving. Increase Mounjaro and lower insulin Retinopathy monitored and managed per retinal specialist/medical practice administrator. Plan: blood sugar diagnostic (BLOOD GLUCOSE TEST) [...] polyneuropathy, with long-term current use of insulin ([facility]) Comment: Glycemic control is improving. Increase Mounjaro [...] microalbuminuria, with long-term current use of insulin ([facility]) Comment: Glycemic control is improving. Increase Mounjaro [...] Level: 4 - Moderate Sharlene Escobar, MSN, PERFORMANCE IMPROVEMENT MANAGER, QUALITY SUPERVISOR-C, [facility] Endocrinology [facility] Medical Office [facility]/[address], [address] [place] [address] Fax: documented in this encounterCity Hospital08-20-2024 History of Present illness Narrative* Melissa Green PA-C - 12/24/2023 1:51 PM EDT Melissa Green PA-C Department of Orthopaedics Orthopaedics [address] [place] [address] Dept: [phone] December 24, 2023 CHIEF COMPLAINT: Post Op of the Right Hand and Post Op of the Left Wrist. ASSESSMENT: G56.03 Bilateral carpal tunnel syndrome (primary encounter diagnosis) SUMMARY/PLAN: Patient presents almost 2 weeks status post bilateral carpal tunnel release. He states that he is doing excellent, denies any pain. Notes that the numbness and tingling in his hands has significantlyfaded since surgery. Has been able to form a full composite fist with both hands which she states he could not do prior to surgery. We discussed proper hand washing, no soaking of the operative hand.No heavy lifting, pushing or pulling with the operative hand, encourage gentle motion. We discussedscar massage. Follow up as planned. Exam: Both [...] IDDM, E 11.42 Blood-Glucose Meter,Continuous (DEXCOM G6 IT INFRASTRUCTURE SPECIALIST) [facility] Use continuously to monitor glucose, IDDM,E 11.42 Blood-Glucose Transmitter (DEXCOM G6 TRANSMITTER) miller [...] 1 capsule by mouth three times daily. Xdnajzdo-Fmcbjbbhc-Nhulajp HMB (KIRK) 7-7-1.5 gram pwpk Take 1 Each by mouth once daily. amLODIPine-benazepril (LOTREL) 5-20 mg per capsule HYDROCHLOROTHIAZIDE 25 MG TAB Take one(1) tablet daily. blood sugar diagnostic (BLOOD GLUCOSE TEST) test strip Use as instructed; 3 strips per day, IDDM, E11.42 Blood-Glucose Meter Use 3x per day, IDDM, E 11.42; please dispense meter and supplies per insuranceformulary Lancets lancets Use as instructed; 3 lancets daily, IDDM, E11.42 No current facility-administered medications for this visit. Allergies: Codeine, Metformin, and Seasonal Allergies This note was partially generated using [employer]iter voice recognition system, and there may be some incorrect words, spellings, and punctuation that were not noted in checking the note before saving. Melissa Green PA-C documented in this encounterCity Hospital08-19-2024 Telephone encounter Note * Telephone Encounter - Anita Weiner MA - 12/23/2023 2:01 PM EDT I called and left a message for the patient that I was able to get him rescheduled with Melissa Green PA-C tomorrow at 1:30 pm. Asked the patient to contact the office back if that does not work. [facility]08-19-2024 Miscellaneous Notes* Telephone Encounter - Anita Weiner MA - 12/23/2023 2:01 PM EDT I called and left a message for the patient that I was able to get him rescheduled with Melissa Green PA-C tomorrow at 1:30 pm. Asked the patient to contact the office back if that does not work. * Telephone Encounter - Lupe Torres - 12/23/2023 10:50 AM EDT Pt is unable to make appt today to do , Patient stated It was to remove stiches. He would like to know if its ok to wait for next available. Please advise and call patient regarding. Thank you documented in this encounterCity Hospital08-19-2024 Telephone encounter Note * Telephone Encounter - Lupe Torres - 12/23/2023 10:50 AM EDT Pt is unable to make appt today to do , Patient stated It was to remove stiches. He would like to know if its ok to wait for next available. Please advise and call patient regarding. Thank you [facility]08-07-2024 Surgery Surgical operation note* Operative Report - Reji Mansfield MD - 12/11/2023 12:21 PM EDT OPERATIVE/PROCEDURE REPORT LOG ID: [id number] SURGERY/PROCEDURE DATE: 12/11/2023 INCISION/PROCEDURE START TIME: 12:44 PM INCISION CLOSE/PROCEDURE END TIME: 1:21 PM SURGEON(S)/PROCEDURALIST(S) AND PSYCHIATRIC SOCIAL WORKER(S): Surgeon(s) and Role: * Reji Mansfield MD - Primary Physician Assessment Manager: Paula Kohli PA-C; Melissa Green PA-C Registered Nurse Food Cart Attendant: Gill Steve RN SURGERY/PROCEDURE(S): Bilateral carpal tunnel [...] for total of 10 mL. The rightt armwas then, first sterilely prepped and draped in [...] Rakes to retract the soft tissues. Bipolar carl ctrocautery was used for hemostasis. I bluntly dissected [...] nerve protection guide was slid directly under theligament for dilation and a second time for appropriate positioning, this was passed freely withoutany resistance. Subsequently, I selected a mini meniscotome [place] blade and slid this in the protective guide, completely dividing the transverse carpal ligament. Delgado rakes were used to view up thewound to visualize for complete release and a Barnard elevator was used to palpate for complete [...] the distal edge and protected. Due to hissevere, bilateral disease I took some synovium and [...] I/primary surgeon/proceduralist performed the entire procedure. SIGNATURE: eRji Mansfield MD PATIENT NAME: Isa Mayen DATE: December 11, 2023 TIME: 1:25 PM [facility] Work Phone: 1(443) 557-548708-07-2024 Surgical operation note* Operative Report - Reji Mansfield MD - 12/11/2023 12:21 PM EDT OPERATIVE/PROCEDURE REPORT LOG ID: [id number] SURGERY/PROCEDURE DATE: 12/11/2023 INCISION/PROCEDURE START TIME: 12:44 PM INCISION CLOSE/PROCEDURE END TIME: 1:21 PM SURGEON(S)/PROCEDURALIST(S) AND PSYCHIATRIC SOCIAL WORKER(S): Surgeon(s) and Role: * Reji Mansfield MD - Primary Physician Assessment Manager: Paula Kohli PA-C; Melissa Green PA-C Registered Nurse Food Cart Attendant: Gill Steve RN SURGERY/PROCEDURE(S): Bilateral carpal tunnel [...] for total of 10 mL. The rightt armwas then, first sterilely prepped and draped in [...] Rakes to retract the soft tissues. Bipolar carl ctrocautery was used for hemostasis. I bluntly dissected [...] nerve protection guide was slid directly under theligament for dilation and a second time for appropriate positioning, this was passed freely withoutany resistance. Subsequently, I selected a mini meniscotome [place] blade and slid this in the protective guide, completely dividing the transverse carpal ligament. Delgado rakes were used to view up thewound to visualize for complete release and a Barnard elevator was used to palpate for complete [...] the distal edge and protected. Due to hissevere, bilateral disease I took some synovium and [...] 2023 TIME: 1:25 PM [facility]City [facility] Attending History and physical note* Melissa Green PA-C - 12/11/2023 12:14 PM EDT UPDATED HISTORY AND PHYSICAL EXAMINATION SERVICE DATE: 12/11/2023 SERVICE TIME: 12:14 PM PHYSICAL EXAM MUST BE COMPLETED ON ADMISSION The History and Physical (completed in the past 30 days) has been reviewed and the patient has beenexamined. The contents accurately reflect the patient's condition with the following additions or revisions since the H&P was completed. Examination indicates no changes. This H&P can be found in the Electronic Medical Record dated 12/06/23. SIGNATURE: Melissa Green PA-C PATIENT NAME: Isa Deiesha DATE: December 11, 2023 TIME: 12:14 PM Source Note - Yelitza Ly APRN.CNP - 12/06/2023 1:36 PM EDT Images from [...] (BMI) of 40.0 to 44.9 in adult ([facility]) Assessment: Body mass index is 41.56 kg/m [...] polyneuropathy, with long-term current use of insulin ([facility]) Assessment: IDDM, and weekly injectable, following endo and Lyrica for neuropathy, newer A1c requested from [facility]. Last Mounjaro injection 11/30/23, pt knows to HOLD next dose prior to surgery A1c 07/02/2022 6.3 from [facility], to be scanned into epic Hemoglobin A1C [...] sleepy during the daytime STOP-Bang Score: 7 [id number] Score: Age: <65 Sex: male CHF history: No Hypertension history: Yes Stroke/TIA/thromboembolism history: No Vascular disease history: No Diabetes history: Yes [id number] Score: 2 ARISCAT Score: Age: 51-80 Preoperative [...] Hernandez present: no Lip Bite Test: I Microretrognathia/Micronagthia/Recessed Chin: No DENTAL Dental findings: teeth intact. II - ANESTHESIA PLAN Anesthetic Plan: other Beta Ofelia Monitoring Plan Post Procedure Analgesic Plan Informed Consent Anesthetic risks, benefits, alternatives, personnel and consent discussed: yes. Patient / Responsible Republican agrees to proceed: yes Patient / Surrogate agrees to blood products: blood products not planned Discussed the possibility of lip / dental damage: yes Prepared for Surgery: optimally prepared for surgery, pending [see comment]. 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 Has braces to wears at bedtime and helps. He is retired. Patient is left hand dominant. REVIEW OF SYSTEMS: General: No weight loss, malaise or fevers. Neurological: No history of TIA's, stroke, ASSISTANT COMMISSIONER tumor, impaired sensorium, hemiplegia, paraplegia orquadraplegia. No neurological symptoms or problems. Respiratory: Positive for: COPD, tobacco use (cigars, daily), obstructive sleep apnea and CPAP/BiPAP compliant. Negative for: asthma, pneumonia within 6 weeks and URI < 2 weeks. Cardiovascular: Positive for: hyperlipidemia (on rx) and hypertension (on rx) Negative for: abdominal aortic aneurysm, AICD/PPM, angina, anticoagulation therapy, arrhythmia, atrial fibrillation, CAD, chest pain, CHF, congenital heart defect, DVT/PE, recent GA, murmur/valvular heart disease, PTCA, PVD, open heart [...] for: chronic anti-coagulation/platelet meds. Patient is on anti- coagulation/platelet medication(s): Aspirin. Negative for: anemia, bruises/bleeds easily [...] 12/06/23 1602 Medication Sig Last Dose Taking LYUMJEV KWIKPEN [...] 11.42 Taking Yes Blood-Glucose Meter,Continuous (DEXCOM G6 IT INFRASTRUCTURE SPECIALIST) misc Use continuously to monitor glucose, IDDM,E 11.42 Taking Yes Blood-Glucose Transmitter (DEXCOM G6 TRANSMITTER) miller Use one transmitter every 90 days, IDDM, E 11.42 Taking Yes flash glucose sensor (FREESTYLE ALONSO 2 SENSOR) kit use as directed; one sensor every 14 days, IDDM, E11.42 Taking Yes insulin needles, DISPOSABLE, (BD INSULIN PEN NEEDLE UF) 31 gauge x 5/16 Use FOUR pen needles dailyTaking Yes insulin glargine U-300 conc (TOUJEO SOLOSTAR U-300 INSULIN) 300 unit/mL (1.5 mL) Inject subcutaneously 48 units daily in the AM Taking Yes atorvastatin (LIPITOR) 20 mg tablet Take 1 tablet by mouth daily at bedtime. Taking Yes blood sugar diagnostic (BLOOD GLUCOSE TEST) test strip Use as instructed; 3 strips per day, IDDM, E11.42 Taking Yes Blood-Glucose Meter Use 3x per day, IDDM, E 11.42; please dispense meter and supplies per insuranceformulary Taking Yes Lancets lancets Use as instructed; 3 lancets daily, IDDM, E11.42 Taking Yes flash glucose scanning reader (FREESTYLE ALONSO 2 READER) Use as instructed to monitor glucose continuously, IDDM, E11.42 Taking Yes pregabalin (LYRICA) 150 mg capsule Take 1 capsule by mouth three times daily. Taking Yes Wohpeakz-Ebaueamep-Rhlnayl HMB (KIRK) 7-7-1.5 gram pwpk Take 1 [...] or any previous visit (from the past 61253 hour(s)). Instructions Given to Patient: Instructions located in the after visit summary. Patient given verbal and written preop instructions and voices comprehension and compliance. SIGNATURE: Yelitza Ly APRN.CNP PATIENT NAME: Isa Mayen DATE: December 06, 2023 TIME: 1:36 PM [facility] Work Phone: 1(209) 828-374908-07-2024 History and physical note* Melissa Green PA-C - 12/11/2023 12:14 PM EDT UPDATED HISTORY AND PHYSICAL EXAMINATION SERVICE DATE: 12/11/2023 SERVICE TIME: 12:14 PM PHYSICAL EXAM MUST BE COMPLETED ON ADMISSION The History and Physical (completed in the past 30 days) has been reviewed and the patient has beenexamined. The contents accurately reflect the patient's condition with the following additions or revisions since the H&P was completed. Examination indicates no changes. This H&P can be found in the Electronic Medical Record dated 12/06/23. SIGNATURE: Melissa Green PA-C PATIENT NAME: Isa Mayen DATE: December 11, 2023 TIME: 12:14 PM Source Note - Yelitza Ly APRN.BALLING HEAD TENDER - 12/06/2023 1:36 PM EDT Images from [...] polyneuropathy, with long-term current use of insulin ([facility]) Assessment: IDDM, and weekly injectable, following endo and Lyrica for neuropathy, newer A1c requested from [facility]. Last Mounjaro injection 11/30/23, pt knows to HOLD next dose prior to surgery A1c 07/02/2022 6.3 from [facility], to be scanned into epic Hemoglobin A1C [...] Assessment: daily cigars per pt, denies asthma, [facility] states hx COPD, pt denies, No PFTs [...] sleepy during the daytime STOP-Bang Score: 7 [id number] Score: Age: <65 Sex: male CHF history: No Hypertension history: Yes Stroke/TIA/thromboembolism history: No Vascular disease history: No Diabetes history: Yes [id number] Score: 2 ARISCAT Score: Age: 51-80 Preoperative [...] Hernandez present: no Lip Bite Test: I Microretrognathia/Micronagthia/Recessed Chin: No DENTAL Dental findings: teeth intact. II - ANESTHESIA PLAN Anesthetic Plan: other Beta Ofelia Monitoring Plan Post Procedure Analgesic Plan Informed Consent Anesthetic risks, benefits, alternatives, personnel and consent discussed: yes. Patient / Responsible Republican agrees to proceed: yes Patient / Surrogate agrees to blood products: blood products not planned Discussed the possibility of lip / dental damage: yes Prepared for Surgery: optimally prepared for surgery, pending [see comment]. 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 Has braces to wears at bedtime and helps. He is retired. Patient is left hand dominant. REVIEW OF SYSTEMS: General: No weight loss, malaise or fevers. Neurological: No history of TIA's, stroke, ASSISTANT COMMISSIONER tumor, impaired sensorium, hemiplegia, paraplegia orquadraplegia. No neurological symptoms or problems. Respiratory: Positive for: COPD, tobacco use (cigars, daily), obstructive sleep apnea and CPAP/BiPAP compliant. Negative for: asthma, pneumonia within 6 weeks and URI < 2 weeks. Cardiovascular: Positive for: hyperlipidemia (on rx) and hypertension (on rx) Negative for: abdominal aortic aneurysm, AICD/PPM, angina, anticoagulation therapy, arrhythmia, atrial fibrillation, CAD, chest pain, CHF, congenital heart defect, DVT/PE, recent GA, murmur/valvular heart disease, PTCA, PVD, open heart [...] for: chronic anti-coagulation/platelet meds. Patient is on anti- coagulation/platelet medication(s): Aspirin. Negative for: anemia, bruises/bleeds easily [...] 1602 Medication Sig Last Dose Taking LEMUEL SWARTZ [...] 11.42 Taking Yes Blood-Glucose Meter,Continuous (DEXCOM G6 IT INFRASTRUCTURE SPECIALIST) misc Use continuously to monitor glucose, IDDM,E 11.42 Taking Yes Blood-Glucose Transmitter (DEXCOM G6 TRANSMITTER) miller Use one transmitter every 90 days, IDDM, E 11.42 Taking Yes flash glucose sensor (FREESTYLE ALONSO 2 SENSOR) kit use as directed; one sensor every 14 days, IDDM, E11.42 Taking Yes insulin needles, DISPOSABLE, (BD INSULIN PEN NEEDLE UF) 31 gauge x /16 Use FOUR pen needles dailyTaking Yes insulin glargine U-300 conc (TOUJEO SOLOSTAR U-300 INSULIN) 300 unit/mL (1.5 mL) Inject subcutaneously 48 units daily in the AM Taking Yes atorvastatin (LIPITOR) 20 mg tablet Take 1 tablet by mouth daily at bedtime. Taking Yes blood sugar diagnostic (BLOOD GLUCOSE TEST) test strip Use as instructed; 3 strips per day, IDDM, E11.42 Taking Yes Blood-Glucose Meter Use 3x per day, IDDM, E 11.42; please dispense meter and supplies per insuranceformulary Taking Yes Lancets lancets Use as instructed; 3 lancets daily, IDDM, E11.42 Taking Yes flash glucose scanning reader (FREESTYLE ALONSO 2 READER) Use as instructed to monitor glucose continuously, IDDM, E11. Taking Yes pregabalin (LYRICA) 150 mg capsule Take 1 capsule by mouth three times daily. Taking Yes Vipnqjiw-Uknimhdyw-Uxttiuv HMB (KIRK) 7-7-1.5 gram pwpk Take 1 [...] or any previous visit (from the past 01580 hour(s)). Instructions Given to Patient: Instructions located in the after visit summary. Patient given verbal and written preop instructions and voices comprehension and compliance. SIGNATURE: Yelitza Ly APRN.CNP PATIENT NAME: Isa Mayen DATE: December 06, 2023 TIME: 1:36 PM PAGER/CONTACT #: documented in this encounterCity [facility]08-02-2024 Telephone encounter Note * Telephone Encounter - Blanche Brandon LPN - 12/06/2023 3:24 PM EDT Scanned CXR from 12/10/22 into [facility] through [employer]. Blanche Brandon LPN [facility] Miscellaneous Notes* Telephone Encounter - Blanche Brandon LPN - 12/06/2023 3:24 PM EDT Scanned CXR from 12/10/22 into [facility] through [employer] scanning. Blanche Brandon LPN * Telephone Encounter - Blanche Brandon LPN - 12/06/2023 3:07 PM EDT Printed labs from [employer]. Copy sent to [facility] through [employer] scanning. Blanche Brandon LPN * Telephone Encounter - Yelitza Ly APRN.CNP - 12/06/2023 3:03 PM EDT Please request recent labs including A1c from [facility] earlier this year. documented in this encounterCity Hospital08-02-[facility]24 Telephone encounter Note * Telephone Encounter - Blanche Brandon LPN - 12/06/2023 3:07 PM EDT Printed labs from [employer]. Copy sent to [facility] through [employer] scanning. Blanche Brandon LPN [facility] Telephone encounter Note* Telephone Encounter - Yelitza Ly APRN.KIERSTEN - 12/06/2023 3:03 PM EDT Please request recent labs including A1c from [facility] earlier this year. [facility] Instructions* Patient Instructions* Yelitza Ly APRN.KIERSTEN - 12/06/2023 1:45 PM EDT Images from the original note were not included. [facility] PATIENT PREOPERATIVE INSTRUCTIONS No ref. provider found has scheduled you for your procedure at this surgery center: [facility]: [phone] -- [address] [address]. Please read below carefully for your personalized [...] your surgeon. Pre-Surgery Med Instructions Medication Instructions LEMUEL SWARTZ U-100 INSULIN 100 unit/mL insulin pen Do not take the day of surgery tirzepatide (MOUNJARO) 7.5 mg/0.5 mL pen injector Stop 7 days before surgery Blood-Glucose Sensor (DEXCOM G6 SENSOR) miller Blood-Glucose Meter,Continuous (DEXCOM G6 IT INFRASTRUCTURE SPECIALIST) [facility] Blood-Glucose Transmitter (DEXCOM G6 TRANSMITTER) miller flash [...] surgery with a small sip of water Tiardtle-Swssnrabt-Flxctzg HMB (KIRK) 7-7-1.5 gram pwpk Stop 7 [...] Procedures: - YOU MUST HAVE A RESPONSIBLE INTERNATIONAL SALES REPRESENTATIVE TAKE YOU HOME. A GRAIN ELEVATOR AGENT OR CALL CENTER SUPPORT CONSULTANT CANNOT BE MADE A RESPONSIBLE INTERNATIONAL SALES REPRESENTATIVE. - We recommend that a responsible person stays with you overnight to take care of you. - You cannot stay in a hotel alone after outpatient surgery. You will not be permitted to have yoursurgery, if you do not have someone to [...] Advance Directive, please fax a copy to [phone] or email to for it to be added to your chart. If you do not have an Advance Directive, you can find the appropriate form and more information at [email or web address]. We recommend that youcomplete the Advance Directive form found on the website and bring it with you the day of your surgery. It can be witnessed and scanned into your chart that day. Yelitza Ly APRN.CNP documented in this encounterCity Hospital08-02-2024 History and physical note * Yelitza Ly APRN.CNP - 12/06/2023 1:36 PM EDT Images from [...] (BMI) of 40.0 to 44.9 in adult ([facility]) Assessment: Body mass index is 41.56 kg/m [...] polyneuropathy, with long-term current use of insulin ([facility]) Assessment: IDDM, and weekly injectable, following endo and Lyrica for neuropathy, newer A1c requested from [facility]. Last Mounjaro injection 11/30/23, pt knows to HOLD next dose prior to surgery A1c 07/02/2022 6.3 from [facility], to be scanned into [facility] Hemoglobin A1C (%) Date Value 04/24/2023 6.1 [...] sleepy during the daytime STOP-Bang Score: 7 [id number] Score: Age: <65 Sex: male CHF history: No Hypertension history: Yes Stroke/TIA/thromboembolism history: No Vascular disease history: No Diabetes history: Yes [id number] Score: 2 ARISCAT Score: Age: 51-80 Preoperative [...] Hernandez present: no Lip Bite Test: I Microretrognathia/Micronagthia/Recessed Chin: No DENTAL Dental findings: teeth intact. II - ANESTHESIA PLAN Anesthetic Plan: other Beta Ofelia Monitoring Plan Post Procedure Analgesic Plan Informed Consent Anesthetic risks, benefits, alternatives, personnel and consent discussed: yes. Patient / Responsible Republican agrees to proceed: yes Patient / Surrogate agrees to blood products: blood products not planned Discussed the possibility of lip / dental damage: yes Prepared for Surgery: optimally prepared for surgery, pending [see comment]. 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 Has braces to wears at bedtime and helps. He is retired. Patient is left hand dominant. REVIEW OF SYSTEMS: General: No weight loss, malaise or fevers. Neurological: No history of TIA's, stroke, ASSISTANT COMMISSIONER tumor, impaired sensorium, hemiplegia, paraplegia orquadraplegia. No neurological symptoms or problems. Respiratory: Positive for: COPD, tobacco use (cigars, daily), obstructive sleep apnea and CPAP/BiPAP compliant. Negative for: asthma, pneumonia within 6 weeks and URI < 2 weeks. Cardiovascular: Positive for: hyperlipidemia (on rx) and hypertension (on rx) Negative for: abdominal aortic aneurysm, AICD/PPM, angina, anticoagulation therapy, arrhythmia, atrial fibrillation, CAD, chest pain, CHF, congenital heart defect, DVT/PE, recent GA, murmur/valvular heart disease, PTCA, PVD, open heart [...] for: chronic anti-coagulation/platelet meds. Patient is on anti- coagulation/platelet medication(s): Aspirin. Negative for: anemia, bruises/bleeds easily [...] 11.42 Taking Yes Blood-Glucose Meter,Continuous (DEXCOM G6 IT INFRASTRUCTURE SPECIALIST) misc Use continuously to monitor glucose, IDDM,E 11.42 Taking Yes Blood-Glucose Transmitter (DEXCOM G6 TRANSMITTER) miller Use one transmitter every 90 days, IDDM, E 11.42 Taking Yes flash glucose sensor (FREESTYLE ALONSO 2 SENSOR) kit use as directed; one sensor every 14 days, IDDM, E11.42 Taking Yes insulin needles, DISPOSABLE, (BD INSULIN PEN NEEDLE UF) 31 gauge x 5/16 Use FOUR pen needles dailyTaking Yes insulin glargine U-300 conc (TOUJEO SOLOSTAR U-300 INSULIN) 300 unit/mL (1.5 mL) Inject subcutaneously 48 units daily in the AM Taking Yes atorvastatin (LIPITOR) 20 mg tablet Take 1 tablet by mouth daily at bedtime. Taking Yes blood sugar diagnostic (BLOOD GLUCOSE TEST) test strip Use as instructed; 3 strips per day, IDDM, E11.42 Taking Yes Blood-Glucose Meter Use 3x per day, IDDM, E 11.42; please dispense meter and supplies per insuranceformulary Taking Yes Lancets lancets Use as instructed; 3 lancets daily, IDDM, E11.42 Taking Yes flash glucose scanning reader ([employer] ALONSO 2 READER) Use as instructed to monitor glucose continuously, IDDM, E11.42 Taking Yes pregabalin (LYRICA) 150 mg capsule Take 1 capsule by mouth three times daily. Taking Yes Pgkquhpk-Hmdpphicg-Niniwfv HMB (KIRK) 7-7-1.5 gram pwpk Take 1 [...] or any previous visit (from the past 03629 hour(s)). Instructions Given to Patient: Instructions located in the after visit summary. Patient given verbal and written preop instructions and voices comprehension and compliance. SIGNATURE: Yelitza Ly APRN.CNP PATIENT NAME: Isa Mayen DATE: December 06, 2023 TIME: 1:36 PM PAGER[facility]CONTACT #: [facility] History and physical note* Yelitza Ly APRN.CNP - 12/06/2023 1:36 PM EDT Images from the original note were not included. [facility] HISTORY AND PHYSICAL EXAMINATION SERVICE DATE: 12/06/2023 SERVICE TIME: 3:27 PM PRIMARY CARE PHYSICIAN: Ricardo Abraham MD Assessment Patient has the following medical conditions which may affect jamial-operative course: Class 3 severe obesity with serious comorbidity and body mass index (BMI) of 40.0 to 44.9 in adult ([facility]) Assessment: Body mass index is 41.56 kg/m [...] polyneuropathy, with long-term current use of insulin ([facility]) Assessment: IDDM, and weekly injectable, following endo and Lyrica for neuropathy, newer A1c requested from [facility]. Last Mounjaro injection 11/30/23, pt knows to HOLD next dose prior to surgery A1c 07/02/2022 6.3 from [facility], to be scanned into [facility] Hemoglobin A1C (%) Date Value 04/24/2023 6.1 [...] Assessment: daily cigars per pt, denies asthma, [facility] states hx COPD, pt denies, No PFTs [...] sleepy during the daytime STOP-Bang Score: 7 [id number] Score: Age: <65 Sex: male CHF history: No Hypertension history: Yes Stroke/TIA/thromboembolism history: No Vascular disease history: No Diabetes history: Yes [id number] Score: 2 ARISCAT Score: Age: 51-80 Preoperative [...] Hernandez present: no Lip Bite Test: I Microretrognathia/Micronagthia/Recessed Chin: No DENTAL Dental findings: teeth intact. II - ANESTHESIA PLAN Anesthetic Plan: other Beta Ofelia Monitoring Plan Post Procedure Analgesic Plan Informed Consent Anesthetic risks, benefits, alternatives, personnel and consent discussed: yes. Patient / Responsible Republican agrees to proceed: yes Patient / Surrogate agrees to blood products: blood products not planned Discussed the possibility of lip / dental damage: yes Prepared for Surgery: optimally prepared for surgery, pending [see comment]. 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 Has braces to wears at bedtime and helps. He is retired. Patient is left hand dominant. REVIEW OF SYSTEMS: General: No weight loss, malaise or fevers. Neurological: No history of TIA's, stroke, ASSISTANT COMMISSIONER tumor, impaired sensorium, hemiplegia, paraplegia orquadraplegia. No neurological symptoms or problems. Respiratory: Positive for: COPD, tobacco use (cigars, daily), obstructive sleep apnea and CPAP/BiPAP compliant. Negative for: asthma, pneumonia within 6 weeks and URI < 2 weeks. Cardiovascular: Positive for: hyperlipidemia (on rx) and hypertension (on rx) Negative for: abdominal aortic aneurysm, AICD/PPM, angina, anticoagulation therapy, arrhythmia, atrial fibrillation, CAD, chest pain, CHF, congenital heart defect, DVT/PE, recent GA, murmur/valvular heart disease, PTCA, PVD, open heart [...] for: chronic anti-coagulation/platelet meds. Patient is on anti- coagulation/platelet medication(s): Aspirin. Negative for: anemia, bruises/bleeds easily [...] 12/06/23 1349 Medication Sig Last Dose Taking LYUMJELuana KWIKPEN U-100 INSULIN 100 unit/mL insulin [...] 11.42 Taking Yes Blood-Glucose Meter,Continuous (DEXCOM G6 IT INFRASTRUCTURE SPECIALIST) misc Use continuously to monitor glucose, IDDM,E 11.42 Taking Yes Blood-Glucose Transmitter (DEXCOM G6 TRANSMITTER) miller Use one transmitter every 90 days, IDDM, E 11.42 Taking Yes flash glucose sensor (FREESTYLE ALONSO 2 SENSOR) kit use as directed; one sensor every 14 days, IDDM, E11.42 Taking Yes insulin needles, DISPOSABLE, (BD INSULIN PEN NEEDLE UF) 31 gauge x 5/16 Use FOUR pen needles dailyTaking Yes insulin glargine U-300 conc (TOUJEO SOLOSTAR U-300 INSULIN) 300 unit/mL (1.5 mL) Inject subcutaneously 48 units daily in the AM Taking Yes atorvastatin (LIPITOR) 20 mg tablet Take 1 tablet by mouth daily at bedtime. Taking Yes blood sugar diagnostic (BLOOD GLUCOSE TEST) test strip Use as instructed; 3 strips per day, IDDM, E11.42 Taking Yes Blood-Glucose Meter Use 3x per day, IDDM, E 11.42; please dispense meter and supplies per insuranceformulary Taking Yes Lancets lancets Use as instructed; 3 lancets daily, IDDM, E11.42 Taking Yes flash glucose scanning reader ([employer] ALONSO 2 READER) Use as instructed to monitor glucose continuously, IDDM, E11.42 Taking Yes pregabalin (LYRICA) 150 mg capsule Take 1 capsule by mouth three times daily. Taking Yes Opnfhafv-Hyofxbsuu-Uarseek HMB (KIRK) 7-7-1.5 gram pwpk Take 1 [...] or any previous visit (from the past 72500 hour(s)). Instructions Given to Patient: Instructions located in the after visit summary. Patient given verbal and written preop instructions and voices comprehension and compliance. SIGNATURE: Yelitza Ly APRN.CNP PATIENT NAME: Isa Mayen DATE: December 06, 2023 TIME: 1:36 PM PAGER/CONTACT #: documented in this encounterCity Hospital07-26-2024 Instructions* Patient Education - Yanet Mcclendon PA-C - 11/29/2023 4:29 PM EDT TELEPHONE ENCOUNTER Isa Mayen's medication list was reviewed and he was noted to be taking Mounjaro per his chart. The patient was contacted via telephone, he confirmed taking Mounjaro. It was discussed that hehold Mounjaro a minimum of 7 day(s) prior to his date of surgery (12/11/2023). As he stated he is scheduled to inject Mounjaro tomorrow and 12/06/23, he was instructed to hold any further injections after tomorrow's injection to allow for a full 7 days off of medication prior to his procedure. He confirmed understanding. He states he has a PAT appointment next week in [place] and was advised he wouldreceive further instructions for any additional pre-operative medication management at that time. Patient also informed to reach out to his surgeon's office if he had any further questions or concerns. He verbalized understanding. SIGNATURE: Yanet Mcclendon PA-C PATIENT NAME: Isa Mayen DATE: November 29, 2023 [facility] Work Phone: 1(418) 126-734007-26-2024 Miscellaneous Notes* Patient Education - Yanet Mcclendon PA-C - 11/29/2023 4:29 PM EDT TELEPHONE ENCOUNTER Isa Mayen's medication list was reviewed and he was noted to be taking Mounjaro per his chart. The patient was contacted via telephone, he confirmed taking Mounjaro. It was discussed that hehold Mounjaro a minimum of 7 day(s) prior to his date of surgery (12/11/2023). As he stated he is scheduled to inject Mounjaro tomorrow and 12/06/23, he was instructed to hold any further injections after tomorrow's injection to allow for a full 7 days off of medication prior to his procedure. He confirmed understanding. He states he has a PAT appointment next week in [place] and was advised he wouldreceive further instructions for any additional pre-operative medication management at that time. Patient also informed to reach out to his surgeon's office if he had any further questions or concerns. He verbalized understanding. SIGNATURE: Yanet Mcclendon PA-C PATIENT NAME: Isa Mayen DATE: November 29, 2023 documented in this encounterCity Hospital07-24-2024 Telephone encounter Note * Telephone Encounter - Lenka Cheney MA - 11/27/2023 7:55 AM EDT Surgery scheduled as requested. Post op appointments scheduled and mailed to the patient. [address]24-2024 Miscellaneous Notes* Telephone Encounter - Lenka Cheney MA - 11/27/2023 7:55 AM EDT Surgery scheduled as requested. Post op appointments scheduled and mailed to the patient. * Telephone Encounter - Lenka Cheney MA - 11/26/2023 4:02 PM EDT Surgical request completed. * Telephone Encounter - Lenka Cheney MA - 11/26/2023 1:24 PM EDT Patient scheduled for Bilateral CTR on 12/11/2023. documented in this encounterCity Hospital07-23-2024 Telephone encounter Note * Telephone Encounter - Lenka Cheney MA - 11/26/2023 4:02 PM EDT Surgical request completed. [facility] Telephone encounter Note* Telephone Encounter - Lenka Cheney MA - 11/26/2023 1:24 PM EDT Patient scheduled for Bilateral CTR on 12/11/2023. [facility] History of Present illness Narrative* Reji Mansfield MD - 11/26/2023 11:48 AM EDT Reji Mansfield MD Department of Orthopaedics Orthopaedics [address] [place] [id number] Dept: [phone] November 26, 2023 CHIEF COMPLAINT: New of [...] and picking up coins. 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 Has braces to wears at bedtime and helps. He is retired. Patient is left hand dominant. ASSESSMENT: G56.03 Bilateral carpal tunnel syndrome (primary encounter diagnosis) PLAN: We reviewed the risks, benefits, alternatives and potential complications with op and non-op treatment. Severe exam and nerve testing. Difficult to predict immediate or terminal clerk improvement, but improvement is expected. FOLLOW UP [...] and no tenderness to palpation, Spurling's sign negative.Shoulders and elbows have full range of motion. neg Tinel's over the cubital tunnel, no subluxationof ulnar nerve at the elbow with flexion. [...] IDDM, E 11.42 Blood-Glucose Meter,Continuous (DEXCOM G6 IT INFRASTRUCTURE SPECIALIST) [facility] Use continuously to monitor glucose, IDDM,E 1142 Blood-Glucose Transmitter (DEXCOM G6 TRANSMITTER) miller Use [...] instructed; 3 strips per day, IDDM, E11.42 Blood-Glucose Meter Use 3x per day, IDDM, E 1142; please dispense meter and supplies per insuranceformulary Lancets lancets Use as instructed; 3 lancets daily, IDDM, E11.42 flash glucose scanning reader (FREESTYLE ALONSO 2 READER) Use as instructed to monitor glucose continuously, IDDM, E1142 pregabalin (LYRICA) 150 mg capsule Take 1 capsule by mouth three times daily. Yewyzjto-Vaseslmhi-Azafgvz HMB (KIRK) 7-7-1.5 gram pwpk Take 1 Each by mouth once daily. amLODIPine-benazepril (LOTREL) 5-20 mg per capsule HYDROCHLOROTHIAZIDE 25 MG TAB Take one(1) tablet daily. ergocalciferol 50,000 unit capsule (VITAMIN D2, DRISDOL) Take 1 capsule by mouth one time a week. X12 wks. (Patient not taking: Reported on 11/26/2023) [...] anxiety) Reji Mansfield MD documented in this encounterCity Hospital07-22-2024 Telephone encounter Note * Telephone Encounter - Sharlene Escobar APRN.CNP - 11/25/2023 5:43 PM EDT Rx sent. MC message sent to patient. Thank you [facility]-22[facility]24 Miscellaneous Notes* Telephone Encounter - Sharlene Escobar APRN.CNP - 11/25/2023 5:43 PM EDT Rx sent. MC message sent to patient. Thank you * Telephone Encounter - Debra Hansen MA - 11/25/2023 2:33 PM EDT Fiasp on backorder.It shows Lyumjev is also preferred. If it is not we will have to complete a PA. documented in this encounterCity Hospital07-22-2024 Telephone encounter Note * Telephone Encounter - Debra Hansen MA - 11/25/2023 2:33 PM EDT Fiasp on backorder.It shows Lyumjev is also preferred. If it is not we will have to complete a PA. [facility] Telephone encounter Note* Telephone Encounter - Ericka Batista - 11/04/2023 9:23 AM EDT 1st attempt: Sent [employer] message that patient needed to schedule an appointment. I will postpone and follow up on this 11.05.2023 [facility] Miscellaneous Notes* Telephone Encounter - Ericka Batista - 11/04/2023 9:23 AM EDT 1st attempt: Sent [employer] message that patient needed to schedule an appointment. I will postpone and follow up on this 11.05.2023 * Telephone Encounter - Naty Sen MA - 11/04/2023 9:13 AM EDT Requester: Pharmacy Last Visit in Endocrinology: Provider [...] advise. Naty Sen MA documented in this encounterCity Hospital07-01-2024 Telephone encounter Note * Telephone Encounter - Naty Sen MA - 11/04/2023 9:13 AM EDT Requester: Pharmacy Last Visit in Endocrinology: Provider [...] Please review and advise. Naty Sen MA [facility]24 Miscellaneous Notes* Telephone Encounter - Naty Sen MA - 10/10/2023 12:45 PM EDT Received a request for office notes from [facility] ([employer]) documented in this encounterCity Hospital06-06-2024 Telephone encounter Note * Telephone Encounter - Naty Sen MA - 10/10/2023 12:45 PM EDT Received a request for office notes from [facility] ([employer]) [facility] Telephone encounter Note* Telephone Encounter - Sarah Velásquez - 10/03/2023 9:14 AM EDT Lvm for patient to call back and schedule an appointment with Dr. Mansfield [facility]30[facility] Miscellaneous Notes* Telephone Encounter - Sarah Velásquez - 10/03/2023 9:14 AM EDT Lvm for patient to call back and schedule an appointment with Dr. Mansfield * Telephone Encounter - Eli Thomas - 10/01/2023 10:01 AM EDT Lvm for pt to call back to schedule with Hu Bragg for a consult for carpal tunnel surgery ab * Telephone Encounter - Neyda Clark - 10/01/2023 8:05 AM EDT Patient has a referral in scanned docs for carpal tunnel surgery. The patient is being referred by Dr. Ricardo Abraham to . Please call to schedule a consult appointment. documented in this encounterCity Hospital05-28-2024 Telephone encounter Note * Telephone Encounter - Eli Thomas - 10/01/2023 10:01 AM EDT Lvm for pt to call back to schedule with Hu Bragg for a consult for carpal tunnel surgery ab [facility] Telephone encounter Note* Telephone Encounter - Neyda Clark - 10/01/2023 8:05 AM EDT Patient has a referral in scanned docs for carpal tunnel surgery. The patient is being referred by Dr. Ricardo Abraham to . Please call to schedule a consult appointment. [facility] Telephone encounter Note* Telephone Encounter - Sharlene Escobar APRN.CNP - 10/01/2023 7:20 AM EDT Reviewed. 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 Problem list is up to date. Thank you [facility]-28-2024 Miscellaneous Notes* Telephone Encounter - Sharlene Escobar APRN.CNP - 10/01/2023 7:20 AM EDT Reviewed. 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 Problem list is up to date. Thank you * Telephone Encounter - Naty Sen MA - 09/27/2023 1:25 PM EDT Received Eye Exam Report from [facility] Updated. Placed in provider's inbox for review. Route to [place] for scanning. documented in this encounterCity Hospital05-24-2024 Telephone encounter Note * Telephone Encounter - Naty Sen MA - 09/27/2023 1:25 PM EDT Received Eye Exam Report from [facility] Updated. Placed in provider's inbox for review. Route to [place] for scanning. [facility] Miscellaneous Notes* Telephone Encounter - Yanet Karimi RN - 08/23/2023 11:08 AM EDT Please review and advise. documented in this encounterCity Hospital04-19-2024 Miscellaneous Notes* Telephone Encounter - Yanet Karimi RN - 08/23/2023 8:00 AM EDT Received a PA for the FreeStyle Alonso 2 Sensors. Dexcom is the preferred. Can we sent a RX for the Dexcom G6 sensors and community health coordinator and have him meet with Meredith to learn how to use it? * Telephone Encounter - Yanet Karimi RN - 08/21/2023 11:45 AM EDT Patient notified that the FreeStyle Alonso is not covered under Medicare and am seeing if he wants to try the Dexcom. Will await reply. documented in this encounterCity Hospital04-18-2024 Miscellaneous Notes* Telephone Encounter - Natali Beach MA - 08/22/2023 1:38 PM EDT Patient is active on [employer]- message sent. Advised to call or message in [employer] with any questions about changes * Telephone Encounter - Sharlene Escobar APRN.CNP - 08/22/2023 12:31 PM EDT Trulicity was ineffective for him. He had [...] available we will do Rybelsus. Thank you * Telephone Encounter - Katie Mccabe - 08/22/2023 11:05 AM EDT PT cannot get his Mounjaro medication from anywhere. He has tried all local pharmacies, hospitalsand online pharmacies. He is requesting a return call to discuss what he can do from here, he questions if he can take an alternative. Please call [phone]. documented in this encounterCity Hospital04-05-2024 History of Present illness Narrative* Duane Snyder DO - 08/09/2023 12:55 PM EDT UNIVERSAL PROTOCOL / SAFETY CHECKLIST Procedure to [...] Plan of Care Visit completed when applicable. BRADY StantonT Duane Snyder DO documented in this encounterCity Hospital03-20-2024 Miscellaneous Notes* Telephone Encounter - Katie Burr RN - 07/24/2023 10:50 AM EDT EDU MAYEN (Fried: [id number]) Rx #: [id number] Fiasp FlexTouch 100UNIT/ML pen-injectors Form [employer] Medicare Part D Electronic Prior Authorization Form (2016 NCPDP) Created 2 days ago Sent to Plan 3 hours ago Plan Response 3 hours ago Submit Clinical Questions 2 hours ago Determination Favorable 27 minutes ago Message from Plan Request Reference Number: [id number]. FIASP FLEX INJ TOUCH is approved through 05/05/2024. Your patient may now fill this prescription and it will be covered.. Authorization Expiration Date: May 05, 2024. documented in this encounterCity Hospital03-14-2024 Discharge summary Author Edu Haynes [facility] July 18, 2023 10:39am Note Date/Time July 18, 2023 10: 35am [facility] Medical Records Department [address] [place] [address] Instructions for Home/Discharge Instructions 07/18/23 1034 MR#: [id number] Acct: [id number] Name: ISA MAYEN Rep #:[id number] : [...] July 22, 2023) Additional Dressing/Incision Instructions:: Follow [place] [facility] Post-op Instructions. Once postoperative dressing has [...] be discussed in further detail at your follow- up appointment, if applicable. Discharge Plan Admission Admit [...] - Edu Haynes PA-C [Med Staff - [facility]] - 08/01/23 3:45 pm Disposition Disposition (needs filled in before D/C Order can be placed): Home, Self Care 07/18/23 1039<Electronically signed by Edu BROWN PA-C>Edu BROWN PA-C CC: Dr. Minoo Myers DO; Dr. Miguelito Mesa MD; RICARDO ABRAHAM MD ~ Signed [facility] Work Phone: 1(553) 608-168103-14-2024 Progress note Author [facility] July 18, 2023 10:34am Note Date/Time July 18, 2023 10: 32am [facility] Medical Records Department [address] [place] [address] Progress Note - Orthopedic 07/18/23 1027 MR#: [id number] Acct: [id number] Name: ISA MAYEN Rep #:[id number] : 1960 62 From: Edu BROWN PA-C PCP: RICARDO ABRAHAM MD Status:ADM RUDDY Location: MS3 [id number] Subjective Subjective The patient was sitting in [...] like his prescriptions E scribed to drug [place] in [facility]. Upon discharge he will contact our office with any concerns or questions. I have reviewed the [place] Automated Rx Reporting System (OARRS) report for [...] may exist. 07/18/23 1034 <Electronically signed by dEu BROWN PA-C> Cosigner Signature (if applicable): CC: ~ Signed [facility] Work Phone: 1(914) 399-598603-13-2024 Progress note Author Miguelito Mesa [facility] July 17, 2023 4:45pm Note Date/Time July 17, 2023 4:0 3pm [facility] Medical Records Department [address] [place] [address] Progress Note - Hospitalist 07/17/23 1600 MR#: [id number] Acct: [id number] Name: ISA MAYEN Rep #:[id number] : 1960 62 From: Miguelito acosta MD PCP: RICARDO ABRAHAM MD Status:ADM RUDDY Location: NV3 TA490-3 Subjective Subjective 60-year-old male presented to the [...] 13:14 EDT Reading Location ID and State: [facility] / [place] , Service support , Physical Exam Narrative [...] Charges/Coding Visit Charges Office Visits / Consults: 36573 OV L3 New 30min 07/17/23 1645 <Electronically signed by Miguelito Mesa MD> Cosigner Signature (if applicable): CC: ~ Signed [facility] Work Phone: 1(788) 133-108603-13-2024 Procedure [facility] 07-17-2023 History and physical note Author Luis A Adkins [facility] July 17, 2023 9:09am Note Date/Time July 10, 2023 9:05 am [facility] Medical Records Department [address] [place] [address] History & Physical Exam 07/10/23 0904 MR#: [id number] Acct: [id number] Name: ISA MAYEN Rep #:[id number] : 1960 62 From: Edu BROWN PA-C PCP: RICARDO ABRAHAM MD Status:REG [facility] Location: [place] [address] History and Physical History and Physical? Patient Name: Edu Mayen : 1960 From:? EDU HAYNES PA-C? DATE [...] - (12/2022) 4 WEEKS POST OP / [facility] Hand Tendon Repair - KNIFE WOUND? [...] osteophyte formation consistent with severe stage IV izmk-vm-utdk osteoarthritis.? On the AP/tunnel view there is [...] more hypersensitive to the sunlight.? Also recommended faya-kvm-zkbaepp probiotic while on antibiotic. DVT Prophylaxis:? Aspirin [...] PA-C> Cosigner Signature (if applicable): cc: MALLORIE Haynes; Dr. Luis A Adkins MD; RICARDO ABRAHAM MD ~* Signed ADDENDUM by Dr. Luis A Adkins MD on 07/17/23 at 0909 Addendum I have examined the patient and the H&P has been reviewed. There are no clinicalchanges since date of exam. 07/17/23908<Electronically signed by Luis A Adkins MD> Cosigner Signature (if applicable): cc: MALLORIE Haynes; Dr. Luis A Adkins MD; RICARDO ABRHAAM MD ~* Signed [facility] Work Phone: 1(616) 254-326802-19-2024 Miscellaneous Notes* Telephone Encounter - Yanet Karimi RN - 06/24/2023 2:26 PM EST Replied to patient. Closed documented in this encounterCity Hospital02-19-2024 Miscellaneous Notes* Telephone Encounter - Natali [...] advise. Natali Beach MA documented in this encounterCity Hospital12-05-2023 Miscellaneous Notes* Telephone Encounter - Debra Hansen Ma - 04/09/2023 11:51 AM EST Images from the original note were not included. Approved Prior authorization approved Payer: [employer] [phone] CaseId:[id number];Status:Cancelled;Explanation:Prior Authorization currently on file.; Electronic appeal: Not [...] to its destination. To be filled at: [phone] - [place] [address] [address] [facility] [phone] Pharmacy Benefits ISA MAYEN 2022 [facility] PDP Value - RTL ([employer]) Covered: Retail, Mail Order Unknown: Specialty, Long-Term Care Group ID: [id number] Group name: [facility] BIN: [id number] PCN: MEDDPRIME : 1960 Legal sex: M Address: [address] [place] [address] * Telephone Encounter - Debra Hansen Ma - 04/09/2023 8:18 AM EST Images from the original note were not included. Completed PA through [employer] for Mounjaro 5 mg and 7.5 mg. Received approval for Mounjaro. Patient notified. Approved Prior authorization approved Payer: [employer] [phone] CaseId:[id number];Status:Approved;Review Type:Prior Auth;Coverage Start Date:03/10/2023;Coverage End Date:04/08/2024; Approval [...] polyneuropathy, with long-term current use of insulin ([facility]) documented in this encounterCity Hospital11-03-2023 Miscellaneous Notes* Telephone Encounter - Sharlene Escobar APRN.CNP - 03/08/2023 1:13 PM EDT Reviewed. Severe nonproliferative DR ?resolved mac edema. * Telephone Encounter - Natali Beach MA - 03/08/2023 10:49 AM EDT Received Eye Exam Report from [facility] Updated. Placed in provider's inbox for review. Route to [place] for scanning. documented in this encounterCity Hospital10-20-2023 Miscellaneous Notes* Telephone Encounter - Natali Beach MA - 02/22/2023 2:57 PM EDT Form faxed to [facility]. Please review and sign. Faxed to Transmission successful documented in this encounterCity Hospital08-18-2023 Procedure [facility]-07-[facility] Miscellaneous Notes* Telephone Encounter - Yanet Karimi RN - 11/09/2022 1:09 PM EDT ISA TIARRA (Fried: [id number]) Ozempic (1 MG/DOSE) 4MG/3ML pen-injectors Form [employer] Electronic PA Form (2016 [facility]) Created 17 hours ago Sent to Plan 2 minutes ago Plan Response 2 minutes ago Submit Clinical Questions 1 minute ago Determination Favorable less than a minute ago Message from Plan CaseId:[id number];Status:Approved;Review Type:Prior Auth;Coverage Start Date:10/10/2022;Coverage End Date:11/09/2023 Closed documented in this encounterCity Hospital04-21-2023 History of Present illness Narrative* Sharlene Ecsobar APRN.CNP - 08/24/2022 12:00 PM EDT Reason for [...] cap One capsule daily 90 capsule 3 Hmkqywiu-Vsymtmksw-Csseixo HMB (KIRK) 7-7-1.5 gram pwpk Take 1 [...] polyneuropathy, with long-term current use of insulin ([facility]) (primary encounter diagnosis) (E11.3213, Z79.4) 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d by mild nonproliferative retinopathy and macular edema, with long-term current use of insulin ([facility]) Comment: Glycemic control is improved. He has [...] Making: Level: 3 - Low ERIK Dhillon, PERFORMANCE IMPROVEMENT MANAGER, QUALITY SUPERVISOR-C, CDE Endocrinology [facility] [address] Fax: documented in this encounterCity Hospital02-24-2023 Instructions* Patient Instructions* Sharlene Escobar APRN.CNP - 06/29/2022 12:20 PM EST Continue ozempic 2. Toujeo--increase to 68 units daily in AM. 3. Fiasp: Breakfast 24 units Lunch 20 units Dinner 20 units 4. Continue dietary efforts 5. Follow up on or after August 23. 6. Contact us to download [employer] in 2 wks Download the [employer] leo to connect with us . ERIK Dhillon, PERFORMANCE IMPROVEMENT MANAGER, QUALITY SUPERVISOR-C, CDE Endocrinology [facility] [address] Fax: documented in this encounterCity Hospital02-24-2023 History of Present illness Narrative* Sharlene Escobar APRN.CNP - 06/29/2022 12:00 PM EST Reason for Consultation: DM Type 2 Referring Physician: SELF HISTORY OF PRESENT ILLNESS Mr. Mayen is a 61 year old male presenting here today for a follow up of DM Type 2. As I recall,he was initially diagnosed with diabetes 2009. LV 05/25/22 A1C 8.9 on 05/25/22 Interval [...] swelling Trulicity--changed to ozempic Jardiance--foot ulcer Novolog /30-- ineffective Glipizide --started insulin he is checking [...] cap One capsule daily 90 capsule 3 Budizsee-Crmnqogyl-Fpfqcwj HMB (KIRK) 7-7-1.5 gram pwpk Take 1 [...] edema, with long-term current use of insulin ([facility]) Comment: glycemic control is improving and he [...] after August 23. Contact us to download [employer] in 2 wks Download the [employer] leo to connect with us . (E55.9) [...] which included preparing to see the patient, [id number] patient care, completing clinical documentation, obtaining and/or reviewing separately obtained history, performing a medically appropriate examination, counseling and educating the pat ient/family/caregiver, and ordering medications, tests, or procedures. Sharlene Escobar, MSN, PERFORMANCE IMPROVEMENT MANAGER, QUALITY SUPERVISOR-C, CDE Endocrinology [facility] Office [facility]/[address], [address] [place] [address] Fax: documented in this encounterCity Hospital02-15-2023 Miscellaneous Notes* Telephone Encounter - Sharlene [...] expressed apology for popping off in his Somewhere messages. He was calm and appreciative at the end of the call. He will keep his appt on 06/29/22. Thank you documented in this encounterCity Hospital02-15-2023 Miscellaneous Notes* Telephone Encounter - Sharlene Escobar APRN.CNP - 06/20/2022 11:16 AM EST Tried patient again and went to voice mail. Message left Sending Mc message to patient. Thank you * Telephone Encounter - Sharlene Escobar APRN.CNP - 06/20/2022 11:03 AM EST Called patient and went to voice mail. Will try again later. * Telephone Encounter - Katie Burr RN - 06/20/2022 8:18 AM EST Patient called nurse VLADIMIR and stated his Alonso sensors keep falling off and BS's are all over the place and he wants to speak to her only directly. [phone]. documented in this encounterCity Hospital01-30-2023 Miscellaneous Notes* Telephone Encounter - Debra Hansen Ma - 06/04/2022 11:27 AM EST Patient via mychart requesting refills as follows: Requested Prescriptions Pending Prescriptions Disp Refills flash glucose sensor (FREESTYLE ALONSO 2 SENSOR) kit 2 Each 11 Sig: Use as instructed to monitor glucose 3 times daily and continuously. Please review and advise. Debra Hansen Ma documented in this encounterCity Hospital01-27-2023 Procedure [facility]01-25-2023 Miscellaneous Notes* Telephone Encounter - Naty Sen MA - 05/30/2022 1:29 PM EST Office notes from 11/14/2021 and 05/25/2022 printed and faxed to: [phone] Confirmation fax received. Transmission successful. documented in this encounterCity Hospital01-25-2023 Miscellaneous Notes* Telephone Encounter - Sharlene Escobar APRN.CNP - 05/30/2022 10:11 AM EST Yes, that is ok. Rx sent * Telephone Encounter - Debra Hansen Ma - 05/30/2022 10:01 AM EST Received fax from [facility] ([facility]) stating the Unifine pen tips 8mm 31G are not covered. The only pen needles I can find preferred are the 33G by 09/18. Would these be okay to use? Patient was given temporary supply of the non preferred needles. Denial on your desk. documented in this encounterCity Hospital01-20-2023 Miscellaneous Notes* Telephone Encounter - Sharlene Escobar APRN.CNP - 05/25/2022 12:50 PM EST Reviewed. * Telephone Encounter - Sonya Lewis Ma - 05/25/2022 11:35 AM EST Eye Exam received and placed on providers mail inbox. documented in this encounterCity Hospital01-20-2023 Instructions* Patient Instructions* Sharlene Escobar APRN.CNP [...] up in 4-6 wks. Sharlene Escobar, MSN, PERFORMANCE IMPROVEMENT MANAGER, QUALITY SUPERVISOR-C, CDE Endocrinology [facility]/[address] [place] [address] Fax: [phone] documented in this encounterCity Hospital01-20-2023 History of Present illness Narrative* Sharlene Escobar APRN.CNP - 05/25/2022 12:00 PM EST Reason for Consultation: DM Type 2 Referring Physician: SELF HISTORY OF PRESENT ILLNESS Mr. Mayen is a 61 year old male presenting here today for a follow up of DM Type 2. As I recall,he was initially diagnosed with diabetes 2008. 11/14/2021 A1C today is 8.9 History in [...] cap One capsule daily 90 capsule 3 Pzdwprdd-Sdajlgtia-Chcbknl HMB (KIRK) 7-7-1.5 gram pwpk Take 1 [...] long-term current use of insulin (HCC) Comment: glycemic control is poor. Difficulty with [...] which included preparing to see the patient, [id number] patient care, completing clinical documentation, obtaining and/or reviewing separately obtained history, performing a medically appropriate examination, counseling and educating the pat ient/family/caregiver, ordering medications, tests, or procedures, and communicating results to thepatient/family/caregiver. Sharlene Escobar, MSN, PERFORMANCE IMPROVEMENT MANAGER, QUALITY SUPERVISOR-C, CDE Endocrinology [facility] Office [facility]/[address], [address] [place] [address] Fax: documented in this encounterCity Hospital10-18-2022 Miscellaneous Notes* Telephone Encounter - Blanche Cast - 02/20/2022 9:48 AM EDT Rescheduled * Telephone Encounter - Debra Hansen Ma - 02/20/2022 9:16 AM EDT Please see message. documented in this encounterCity Hospital09-06-2022 Miscellaneous Notes* Telephone Encounter - Marcella [...] advise. Marcella Rivera LPN documented in this encounterCity Hospital07-12-2022 Miscellaneous Notes* Telephone Encounter - Debra Hansen Ma - 11/14/2021 3:26 PM EDT Images from the original note were not included. Completed PA through [employer] for Ozempic. Approved Prior authorization approved Payer: [employer] [phone] CaseId:[id number];Status:Approved;Review Type:Prior Auth;Coverage Start Date:10/15/2021;Coverage End Date:11/14/2022; Approval [...] to its destination. To be filled at: [facility] [address] [place] [address] [address] [place] [phone] documented in this encounterCity Hospital07-12-2022 Instructions* Patient Instructions* Sharlene Escobar APRN.BALLING HEAD TENDER - 11/14/2021 2:21 PM EDT 1. Continue jardiance, glipizide. 2. Continue 70/30 insulin Breakfast 55 units Dinner 55 units 3. Stop trulicity. 4. Start ozempic 1 mg once weekly. 5. Send me sugars in 2 wks and 4 wks. 6. Follow up in 3 months Sharlene Escobar, MSN, PERFORMANCE IMPROVEMENT MANAGER, QUALITY SUPERVISOR-C, CDE Endocrinology [facility] Medical Office Building/[address], [address] [place] [address] Fax: documented in this encounterCity Hospital07-12-2022 History of Present illness Narrative* Sharlene [...] needles, DISPOSABLE, (UNIFINE PENTIPS) 31 gauge x 16 USE DIRECTED TWICE DAILY 200 Each 3 dulaglutide (TRULICITY) 1.5 mg/0.5 mL pen injector Inject 1.5 mg subcutaneously one time a week. 12Each 3 Bfnqwaml-Klrqbpmhj-Qrxjsgu HMB (KIRK) 7-7-1.5 gram pwpk Take 1 [...] polyneuropathy, with long-term current use of insulin ([facility]) (primary encounter diagnosis) Comment: Glycemic control has [...] Level: 4 - Moderate Sharlene Escobar, MSN, PERFORMANCE IMPROVEMENT MANAGER, QUALITY SUPERVISOR-C, CDE Endocrinology [facility] Medical Office [facility]/[address], [address] [place] [address] Fax: documented in this encounterCity Hospital06-06-2022 Miscellaneous Notes* Telephone Encounter - Marcella Rivera LPN - 10/09/2021 2:59 PM EDT Requester: Patient Last Visit in Endocrinology: Provider name: Sharlene KitchenKIERSTEN lisa , Date 03/09/2021 Next Scheduled Appt in [...] advise. Marcella Rivera LPN documented in this encounterCity Hospital04-15-2022 Miscellaneous Notes* Telephone Encounter - Debra Hansen Ma - 08/18/2021 10:13 AM EDT Received denial from [facility] for Trulicity. Completed PA through M: EDU MAYEN Fried: [id number] KEVIN Rx #: [id number] help? Call us at Outcome Approvedtoday CaseId:[id number];Status:Approved;Review Type:Prior Auth;Coverage Start Date:07/19/2021;Coverage End Date:08/18/2022; Drug Trulicity 1.5MG/0.5ML pen-injectors Form [employer] Electronic PA Form (2016 [facility]) Original Claim Info [id number] APPROVED documented in this encounterCity Hospital01-03-2020 Hospital Discharge instructions* Instructions* Chalino Jackson, - 05/08/2019 Leaving against medical advice. Please return if any problems or concerns. Return if shortness of breath or any difficulty. * Attachments The following attachments cannot be sent through Care Everywhere. * COPD Exacerbation Plan ([facility]) * Diabetes: Insulin Pens: General Info ([facility]) * Sepsis: General Info ([facility]) * COPD: Prevent Lung Infections: General Info ([place]) documented in this encounterSUMMA Work Phone: [phone] 134-787904-15-2015 History of Past illness Narrative* Problem Noted Date Resolved Date Chalazion of left lower eyelid 08/18/2014 0 05/20/2018 documented as of this encounter (statuses as of 08/18/2021) [address]15-2015 History of Past illness Narrative* Problem Noted Date Resolved Date Chalazion of left lower eyelid 08/18/2014 0 05/20/2018 documented as of this encounter (statuses as of 10/09/2021) [address]15-2015 History of Past illness Narrative* Problem Noted Date Resolved Date Chalazion of left lower eyelid 08/18/2014 0 05/20/2018 documented as of this encounter (statuses as of 11/14/2021) [address]15-2015 History of Past illness Narrative* Problem Noted Date Resolved Date Chalazion of left lower eyelid 08/18/2014 0 05/20/2018 documented as of this encounter (statuses as of 11/14/2021) [address]2015 History of Past illness Narrative* Problem Noted Date Resolved Date Chalazion of left lower eyelid 08/18/2014 0 05/20/2018 documented as of this encounter (statuses as of 01/09/2022) [address]2015 History of Past illness Narrative* Problem Noted Date Resolved Date Chalazion of left lower eyelid 08/18/2014 0 05/20/2018 documented as of this encounter (statuses as of 02/20/2022) [address]2015 History of Past illness Narrative* Problem Noted Date Resolved Date Chalazion of left lower eyelid 08/18/2014 0 05/20/2018 documented as of this encounter (statuses as of 05/25/2022) [address]15[address]2015 History of Past illness Narrative* Problem Noted Date Resolved Date Chalazion of left lower eyelid 08/18/2014 0 05/20/2018 documented as of this encounter (statuses as of 05/25/2022) [address] History of Past illness Narrative* Problem Noted Date Resolved Date Chalazion of left lower eyelid 08/18/2014 0 05/20/2018 documented as of this encounter (statuses as of 05/30/2022) [address] History of Past illness Narrative* Problem Noted Date Resolved Date Chalazion of left lower eyelid 08/18/2014 0 05/20/2018 documented as of this encounter (statuses as of 05/30/2022) [address] History of Past illness Narrative* Problem Noted Date Resolved Date Chalazion of left lower eyelid 08/18/2014 0 05/20/2018 documented as of this encounter (statuses as of 06/04/2022) [address] History of Past illness Narrative* Problem Noted Date Resolved Date Chalazion of left lower eyelid 08/18/2014 0 05/20/2018 documented as of this encounter (statuses as of 06/05/2022) [address] History of Past illness Narrative* Problem Noted Date Resolved Date Chalazion of left lower eyelid 08/18/2014 0 05/20/2018 documented as of this encounter (statuses as of 06/05/2022) [address] History of Past illness Narrative* Problem Noted Date Resolved Date Chalazion of left lower eyelid 08/18/2014 0 05/20/2018 documented as of this encounter (statuses as of 06/20/2022) [address] History of Past illness Narrative* Problem Noted Date Resolved Date Chalazion of left lower eyelid 08/18/2014 0 05/20/2018 documented as of this encounter (statuses as of 06/20/2022) [address] History of Past illness Narrative* Problem Noted Date Resolved Date Chalazion of left lower eyelid 08/18/2014 0 05/20/2018 documented as of this encounter (statuses as of 06/21/2022) [address]2015 History of Past illness Narrative* Problem Noted Date Resolved Date Chalazion of left lower eyelid 08/18/2014 0 05/20/2018 documented as of this encounter (statuses as of 06/29/2022) [address] History of Past illness Narrative* Problem Noted Date Resolved Date Chalazion of left lower eyelid 08/18/2014 0 05/20/2018 documented as of this encounter (statuses as of 08/24/2022) [address]2015 History of Past illness Narrative* Problem Noted Date Resolved Date Chalazion of left lower eyelid 08/18/2014 0 05/20/2018 documented as of this encounter (statuses as of 11/09/2022) [address] History of Past illness Narrative* Problem Noted Date Diagnosed Date Resolved Date Chalazion of left lower eyelid 08/18/2014 05/20/2018 documented as of this encounter (statuses as of 12/21/2022) [address] History of Past illness Narrative* Problem Noted Date Diagnosed Date Resolved Date Chalazion of left lower eyelid 08/18/2014 05/20/2018 documented as of this encounter (statuses as of 02/22/2023) [address] History of Past illness Narrative* Problem Noted Date Diagnosed Date Resolved Date Chalazion of left lower eyelid 08/18/2014 05/20/2018 documented as of this encounter (statuses as of 03/09/2023) [address] History of Past illness Narrative* Problem Noted Date Diagnosed Date Resolved Date Chalazion of left lower eyelid 08/18/2014 05/20/2018 documented as of this encounter (statuses as of 04/09/2023) [address]2015 History of Past illness Narrative* Problem Noted Date Diagnosed Date Resolved Date Chalazion of left lower eyelid 08/18/2014 05/20/2018 documented as of this encounter (statuses as of 06/18/2023) [address] History of Past illness Narrative* Problem Noted Date Diagnosed Date Resolved Date Chalazion of left lower eyelid 08/18/2014 05/20/2018 documented as of this encounter (statuses as of 06/24/2023) [address] History of Past illness Narrative* Problem Noted Date Diagnosed Date Resolved Date Chalazion of left lower eyelid 08/18/2014 05/20/2018 documented as of this encounter (statuses as of 06/24/2023) [address] History of Past illness Narrative* Problem Noted Date Diagnosed Date Resolved Date Chalazion of left lower eyelid 08/18/2014 05/20/2018 documented as of this encounter (statuses as of 06/24/2023) [address] History of Past illness Narrative* Problem Noted Date Diagnosed Date Resolved Date Chalazion of left lower eyelid 08/18/2014 05/20/2018 documented as of this encounter (statuses as of 07/24/2023) [address] History of Past illness Narrative* Problem Noted Date Diagnosed Date Resolved Date Chalazion of left lower eyelid 08/18/2014 05/20/2018 documented as of this encounter (statuses as of 07/25/2023) [address] History of Past illness Narrative* Problem Noted Date Diagnosed Date Resolved Date Chalazion of left lower eyelid 08/18/2014 05/20/2018 documented as of this encounter (statuses as of 08/23/2023) [address] History of Past illness Narrative* Problem Noted Date Diagnosed Date Resolved Date Chalazion of left lower eyelid 08/18/2014 05/20/2018 documented as of this encounter (statuses as of 08/23/2023) [address] History of Past illness Narrative* Problem Noted Date Diagnosed Date Resolved Date Chalazion of left lower eyelid 08/18/2014 05/20/2018 documented as of this encounter (statuses as of 08/23/2023) [address] History of Past illness Narrative* Problem Noted Date Diagnosed Date Resolved Date Chalazion of left lower eyelid 08/18/2014 05/20/2018 documented as of this encounter (statuses as of 08/09/2023) [facility] HospitalConsult note Author Lexie Mathews [facility] July 18, 2023 12:17pm Note Date/Time July 18, 2023 12: 17pm [facility] Medical Records Department [address] [place] [address] Counseling Note - Pharmacy 07/18/23 1216 MR#: [id number] Acct: [id number] Name: ISA MAYEN Rep #:[id number] : 1960 62 From: Lexie Mathews PCP: RICARDO ABRAHAM MD Status:ADM RUDDY Y Location: MS3 [id number] Pharmacy [facility] Service has performed discharge medication reconciliation [...] Signature (if applicable): Date CC: ~ Signed [facility] Work Phone: Evaluation note* Diagnosis Diabetic [...] of left foot with fat layer exposed [facility] Work Phone: Evaluation note* Diagnosis Onset Date [...] left foot with fat layer exposed chronic [facility] Work Phone: Evaluation note* Diagnosis Uncontrolled type 2 diabetes mellitus with diabetic polyneuropathy Vitamin D deficiency Unspecified vitamin D deficiency [facility] this [facility]* Diagnosis Onset Date Resolution Status Achilles [...] left foot with fat layer exposed chronic [facility] Work Phone: Evaluation note* Diagnosis Type 2 diabetes mellitus with diabetic polyneuropathy, with long-term current use of insulin (HCC)- Primary Vitamin D deficiency Unspecified vitamin D deficiency Essential hypertension Unspecified essential hypertension Mixed hyperlipidemia Class 3 severe obesity with serious comorbidity and body mass index (BMI) of 45.0 to 49.9 in adult, unspecified obesity type (HCC) documented in this encounter [facility]* Diagnosis Onset Date Resolution Status Achilles [...] left foot with fat layer exposed chronic [facility] Work Phone: Evaluation note* Diagnosis Uncontrolled type 2 diabetes mellitus with complication, with long-term current use of insulin Type 2 diabetes mellitus with diabetic polyneuropathy, with long-term current use of insulin (HCC) documented in this encounter [facility]* Diagnosis Onset Date Resolution Status [...] left foot with fat layer exposed chronic [facility] Work Phone: Evaluation note* Diagnosis Onset [...] left foot with fat layer exposed chronic [facility] Work Phone: Evaluation note* Diagnosis Onset [...] left foot with fat layer exposed chronic [facility] Work Phone: Evaluation note* Diagnosis Onset [...] left foot with fat layer exposed chronic [facility] Work Phone: Evaluation note* Diagnosis Onset [...] left foot with fat layer exposed chronic [facility] Work Phone: Evaluation note* Diagnosis Type [...] obesity type (HCC) documented in this encounter [facility]* Diagnosis Onset Date Resolution Status [...] chronic Cellulitis of left lower limb resolved [facility] Work Phone: Evaluation note* Diagnosis Type 2 diabetes mellitus with diabetic polyneuropathy, with long-term current use of insulin (HCC) 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d by mild nonproliferative retinopathy and macular edema, with long-term current use of insulin (HCC) documented in this encounter [facility]* Diagnosis Type 2 diabetes mellitus with [...] obesity type (HCC) documented in this encounter [facility] note* Diagnosis Onset Date Resolution Status Achilles [...] chronic Cellulitis of left lower limb resolved [facility] Work Phone: Evaluation note* Diagnosis Type 2 diabetes mellitus with diabetic polyneuropathy, with long-term current use of insulin (HCC)- Primary 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d by mild nonproliferative retinopathy and macular edema, with long-term current use of insulin ([facility]) Vitamin D deficiency Unspecified vitamin D deficiency Essential hypertension Unspecified essential hypertension Mixed hyperlipidemia Class 3 severe obesity with serious comorbidity and body mass index (BMI) of 40.0 to 44.9 in adult, unspecified obesity type (HCC) documented in this encounter [facility] noteNo assessment information availableWCleveland Clinic [facility] Work Phone: Evaluation note* Diagnosis Onset Date Resolution Status Achilles rupture, right acut e Foot pain, right acute Type 2 diabetes mellitus with diabetic polyneuropathy acute Non-pressure chronic ulcer o f other part of right foot with fat layer exposed resolved [facility] Work Phone: Evaluation note* Diagnosis 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, with long-term current use of insulin ([facility]) documented in this encounter [facility]* Diagnosis Bilateral carpal tunnel syndrome- Primary Carpal tunnel syndrome documented in this encounter [facility]* Diagnosis Type 2 diabetes mellitus with diabetic polyneuropathy (HCC) Type II or unspecified type diabetes mellitus with neurological manifestations, not stated as uncontrolled documented in this encounter [facility]* Diagnosis Onset Date Resolution Status Status post total right knee replacement acute [facility] Work Phone: Evaluation note* Diagnosis 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, with long-term current use of insulin ([facility])- Primary documented in this encounter [facility]* Diagnosis 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, with long-term current use of insulin (HCC) Type 2 diabetes mellitus with diabetic polyneuropathy, with long-term current use of insulin ([facility]) documented in this encounter [facility]* Diagnosis 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, with long-term current use of insulin (HCC) Type 2 diabetes mellitus with diabetic polyneuropathy, with long-term current use of insulin (HCC) documented in this encounter [facility]* Diagnosis Bilateral carpal tunnel syndrome- Primary Carpal tunnel syndrome Bilateral carpal tunnel syndrome Carpal tunnel syndrome documented in this encounter [facility] note* Diagnosis Pre-operative examination- Primary Preoperative examination, unspecified Type 2 diabetes mellitus with diabetic polyneuropathy, with long-term current use of insulin ([facility]) Class 3 severe obesity with serious comorbidity and body mass index (BMI) of 40.0 to 44.9 in adult, unspecified obesity type (HCC) Sleep apnea, unspecified type Essential hypertension Unspecified essential hypertension Mixed hyperlipidemia Pulmonary nodule Solitary pulmonary nodule Smoker Tobacco use disorder Coronary artery disease involving [place] coronary artery of [place] heart without angina pectoris History of total knee replacement, right Bilateral carpal tunnel syndrome Carpal tunnel syndrome * Assessment & Plan Note - Yelitza Ly APRN.CNP - 12/06/2023 3:26 PM EDT Associated Problem(s): History of total knee replacement, right Assessment: hx * Assessment & Plan Note - Yelitza Ly APRN.CNP - 12/06/2023 3:19 PM EDT Associated Problem(s): CAD (coronary artery disease) Assessment: seen on imaging, non-obstructing, c/w statin, ASA, BB. PCP manages. Denies CP, palpitations, sob, new or worsening cardiac symptoms. 05/2019 CT chest w/o IVCON Atherosclerotic calcifications are present within the thoracic aorta and coronary arteries. * Assessment & Plan Note - Yelitza Ly APRN.CNP - 12/06/2023 3:17 PM EDT Associated Problem(s): Smoker Assessment: daily cigars per pt, denies asthma, epic states hx COPD, pt denies, No PFTs on file. Lungs CTA, pulse ox 96% on RA * Assessment & Plan Note - Yelitza Ly APRN.CNP - 12/06/2023 3:11 PM EDT [...] reactive. * Assessment & Plan Note - Yelitza Ly APRN.CNP - 12/06/2023 3:06 PM EDT Associated Problem(s): Type 2 diabetes mellitus with diabetic polyneuropathy, with long-term current use of insulin (HCC) Assessment: IDDM, and weekly injectable, following endo and Lyrica for neuropathy, newer A1c requested from [facility]. Last Mounjaro injection 11/30/23, pt knows to HOLD next dose prior to surgery A1c 07/02/2022 6.3 from [facility], to be scanned into epic Hemoglobin A1C (%) Date Value 04/24/2023 6.1 01/05/2020 11.0 Hemoglobin A1C (POCT) (%) Date Value 08/24/2022 7.0 * Assessment & Plan Note - Yelitza Ly APRN.CNP - 12/06/2023 3:05 PM EDT Associated Problem(s): Mixed hyperlipidemia Assessment: c/w statin * Assessment & Plan Note - Yelitza Ly APRN.CNP - 12/06/2023 3:04 PM EDT Associated Problem(s): Essential hypertension Assessment: controlled on rx Last 14 BP Last 14 Encounter BP Readings: Date: BP: 12/06/2023 122/72 08/24/2022 127/78 06/29/2022 131/74 05/25/2022 122/81 11/14/2021 118/71 03/09/2021 139/70 11/04/2020 117/68 09/21/2020 128/57 01/05/2020 101/68 01/23/2019 124/72 10/17/2018 151/93 07/14/2018 130/80 05/27/2017 126/72 01/21/2017 134/90 * Assessment & Plan Note - Yelitza Ly APRN.CNP - 12/06/2023 3:04 PM EDT Associated Problem(s): Sleep apnea Assessment: c/w CPAP * Assessment & Plan Note - Yelitza Ly APRN.CNP - 12/06/2023 3:04 PM EDT Associated Problem(s): Class 3 severe obesity with serious comorbidity and body mass index (BMI) of40.0 to 44.9 in adult (HCC) Assessment: Body mass index is 41.56 kg/m . [facility] Bilateral carpal tunnel syndrome Carpal tunnel syndrome [facility] Diagnosis Bilateral carpal tunnel syndrome- Primary Carpal tunnel syndrome [facility] Diagnosis Pre-operative examination- Primary Preoperative examination, [...] Tobacco use disorder Coronary artery disease involving [place] coronary artery of [place] heart without angina pectoris History of total knee replacement, right Bilateral carpal tunnel syndrome- Primary Carpal tunnel syndrome [facility] Diagnosis Pre-operative examination- Primary Preoperative examination, [...] Tobacco use disorder Coronary artery disease involving [place] coronary artery of [place] heart without angina pectoris History of total [...] obesity type (HCC) [facility] Diagnosis Carpal tunnel syndrome, bilateral upper limbs- Primary Bilateral carpal tunnel syndrome Carpal tunnel syndrome Paresthesia of skin Disturbance of skin sensation [facility] Diagnosis Pre-operative examination- Primary Preoperative examination, [...] Tobacco use disorder Coronary artery disease involving [place] coronary artery of [place] heart without angina pectoris History of total [...] thyroid function study [facility] Diagnosis Pre-operative examination- Primary Preoperative examination, [...] Tobacco use disorder Coronary artery disease involving [place] coronary artery of [place] heart without angina pectoris History of total knee replacement, 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, with long-term current use of insulin (HCC)- Primary documented in this encounter [facility] note* Diagnosis Pre-operative examination- Primary Preoperative examination, [...] Tobacco use disorder Coronary artery disease involving [place] coronary artery of [place] vie[place] heart without angina pectoris History of total [...] vitamin D deficiency [facility] Additional Instructions keep dressing clean, dry and intact until follow up follow up in 1 week maintain heel weightbearing status in cam walking boot on left foot, limit ambulation to transfer within home ice behind knee 3 times a day elevate limb above heart at rest [facility] Additional Instructions [...] my office in 1 week. [facility]: Reason for referral (narrative)* Outpatient Procedure (Routine) - Pending Review Specialty Diagnoses / Procedures Referred By Contac t Referred To [facility] Diagnoses Bilateral carpal tunnel syndrome Procedures EMG(NEURO/NI) NERVE CONDUCTION STUDIES 9-10 STUDIES Valeria Mercer MD [address] [place] [address] [facility] [place] [address] [place] [address] Referral ID Status Reason Start Date Expiration Date Visits Requested Visits Authorized [id number] Pending Review Auto-Generat ed Referral 06/18/2023 06/18/2024 1 1 [facility]No reason for referral information availableWC[facility] Work Phone: Summary Purpose Family History No Family History Records Found Relationship Condition Age at Onset Recorded Date/T maryjo mother Malignant neoplasm Unknown Hypertension Unknown Diabetes mellitus Unknown father Malignant neoplasm Unknown Advance Directives No Advanced Directives Records FoundDocuments on File Type Date Recorded 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 ACP-Advance Directive ACP-Power of Transition Mgr Rn Documents on File Type Date Recorded 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 Advance Directives and Living Will Power of Transition Mgr Rn Documents on File Type Date Recorded 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 Advance Directive(s) 11/01/2015 6:32 AM Advance Directive Response Recorded Date/ Time Living Will Yes October 07, 2020 2 :15pm Power of Transition Mgr Rn Yes October 07, 2020 2:15pm Documents on File Type Date Recorded 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 Advance Directive(s) 11/01/2015 6:32 AM Advance Directive Response Recorded Date/ Time Living Will Yes October 07, 2020 1 :15pm Power of Transition Mgr Rn Yes October 07, 2020 1:15pm Advance Directive Response Recorded Date/ Time Name of Medical Power of Transition Mgr Rn LEROY May 28, 2022 4:14pm Living Will Yes May 28 4:14pm Power of Transition Mgr Rn Yes May 28, 2022 4:14pm Advance Directive Response Recorded Date/ Time Name of Medical Power of Transition Mgr Rn LEROY May 28, 2022 5:14pm Living Will Yes May 28 5:14pm Power of Transition Mgr Rn Yes May 28, 2022 5:14pm Advance Directive Response Recorded Date/ Time Living Will Yes May 28 5:14pm Power of Transition Mgr Rn Yes May 28, 2022 5:14pm Advance Directive Response Recorded Date/ Time Name of Medical Power of Transition Mgr Rn UNSURE December 14, 2022 3:13pm Living Will Yes December 14 3:13pm Power of Transition Mgr Rn Yes December 14, 2 023 3:13pm Advance Directive Response Recorded Date/ Time Name of Medical Power of Transition Mgr Rn UNSURE December 14, 2022 2:13pm Living Will Yes December 14 2:13pm Power of Transition Mgr Rn Yes December 14, 2 023 2:13pm Advance Directive Response Recorded Date/ Time Living Will Yes June 24, 2 024 10:28am Power of Transition Mgr Rn Yes June 24, 2023 10:28am Advance Directive Response Recorded Date/ Time Name of Medical Power of Transition Mgr Rn LEROY BELTRE July 17, 2023 4:10pm Living Will Yes July 17, 2023 4:10pm Power of Transition Mgr Rn Yes July 16 4:10pm Advance Directive Response Recorded Date/ Time Do you have a Healthcare Power of Transition Mgr Rn? Yes January 07, 2025 2:40pm Name of Medical Power of Transition Mgr Rn SO December 10, 2024 8:47am Chief Complaint and Reason for Visit Chief [...] total ri ght knee replacement Chief Complaint Admit Date Strain of muscle(s) and tendon(s) of the rotator c November 24, 2024 9:09am Chief Complaint Admit Date Strain of muscle(s) and tendon(s) of the rotator c November 24, 2024 9:09am Primary osteoarthritis, right shoulder A ugust 2024 12:29pm Chief Complaint Admit Date Strain of muscle(s) and tendon(s) of the rotator c November 24, 2024 9:09am Primary osteoarthritis, right shoulder A ugust 2024 12:29pm RIGHT REVERSE TOTAL SHOULDER ARTHROPLAST Y, ERAS January 07, 2025 1:59pm RIGHT REVERSE TOTAL SHOULDER ARTHROPLAST Y, ERAS January 07, 2025 7:47pm RIGHT REVERSE TOTAL SHOULDER ARTHROPLAST Y, ERAS January 08, 2025 7:11am Reason for Visit Admit Date Status post total shoulder arthroplasty January 07, 2025 1:59pm Type 2 diabetes mellitus with diabetic p olyneuropathy January 07, 2025 1:59pm Reason for Referral Specialty Diagnoses / Procedures Referred By Austin t Referred To Contact Diagnoses Type 2 diabetes mellitus with diabetic polyneuropathy, with long-term current use of insulin ([facility]) Sharlene Escobar APRN.[facility] [address] [address] Referral ID Status Reason Start Date Expiration Date V isits Requested Visits Authorized [id number] Authorized 10/15/2021 11/14/2022 1 1 Specialty Diagnoses / Procedures Referred By Austin younger Referred To Contact Diagnoses 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, with long-term current use of insulin (HCC) Procedures CONSULT TO DIABETES EDUCATION DSME/MNT MEDICAL NUTRITION ASSMT&IVNTJ INDIV EACH 15 GA MEDICAL NUTRITION ASSMT&IVNTJ INDIV EACH 15 GA MEDICAL NUTRITION ASSMT&IVNTJ INDIV EACH 15 GA MEDICAL NUTRITION ASSMT&IVNTJ INDIV EACH 15 GA Sharlene Escobar, DANN.[facility] [address] [address] Referral ID Status Reason Start Date Expiration Date Visits Requested Visits Authorized [id number] Authorized PCP Requested Referral 08/23/2023 08/22/2024 1 1 Additional Source Comments (unrecognized sect ion and content) No Status Records FoundNo Status Records FoundNo Status Records FoundNo Status Records FoundNo Status Records FoundNo Status Records FoundNo Status Records Found INFORMATION SOURCE (unrecogn ized section and content) DATE CREATED AUTHOR 12/05/2017 [facility] DATE CREATED AUTHOR AUTHOR'S ORGANIZ ATION 02/14/2018 [facility] [place] DATE CREATED AUTHOR AUTHOR'S ORGANIZ ATION 10/13/2020 [facility] DATE CREATED AUTHOR AUTHOR'S ORGANIZ ATION 05/28/2021 [facility] DATE CREATED AUTHOR AUTHOR'S ORGANIZ ATION 01/31/2024 [facility] DATE CREATED AUTHOR AUTHOR'S ORGANIZ ATION 02/20/2025 [facility] DATE CREATED AUTHOR AUTHOR'S ORGANIZ ATION [facility] Reason for Visit (unrecogniz ed section [...] Comments [facility] Request for ibrahima garzon office note Reason Comments Diabetic Eye Exam 03/07/2023 Reason Comments Insurance Authorization Mounjaro 5 mg an d 7.5 mg Reason Onset Date Comments Refill Request 06/24/2023 Reason Comments Refill Request Reason Comments PA--FIASP FLEXTOUCH (APPROVED) Reason Comments Medication Problem Reason Comments Dilated Eye Exam Report [facility] Reason Comments Appointment Reason Comments office notes request [facility] Reason Comments Med Change Request Reason Comments Schedule Surgery Reason Comments Consult Reason Comments Request Outside Medical Records Reason Comments New Bilateral CTS - Referred by Ricardo Abraham Reason Comments Post Op Reason Comments Swatch Paster - Other Reason Comments PA--Loreta Millan U300 Reason Comments Results Reason Onset Date Comments EMG 08/09/2023 Specialty Diagnoses / Procedures Referred By Austin younger Referred To Contact [facility] Diagnoses Bilateral carpal tunnel syndrome Procedures EMG(NEURO/NI) NERVE CONDUCTION STUDIES 9-10 STUDIES Valeria Mercer MD [address] [place] [address] Neu[facility] [place] [id number] Referral ID Status Reason Start Date Expiration Date V isits Requested Visits Authorized [id number] Closed Auto-Generate d Referral 06/18/2023 06/18/2024 1 1 Reason Comments PA--FreeStyle Alonso 2 Sensors Reason Comments Follow Up Insulin Dependent Diabetes Mellitus Reason Comments PA--Mounjaro Reason Onset Date Comments Refill Request 07/09/2024 Reason Comments Office Notes [facility] Reason Comments Follow Up Establish Patient Insulin Dependent Diabetes Mellitus Scheduled Active and Recently Administ ered Medications [...] Shi Ware RN) Continuous Medication Order 12/09/2023 12/10/2023 12/11/2023 lactated ringers iv infusion (CANCELED) 5-30 mL/hr, [...] or prosecute any alcohol or drug abuse patient.[facility] the event this information is protected by the Federal Confidentiality of Alcohol and Drug Abuse Patient Records regulations: The Federal rules restrict any use of the information to criminally investigate or prosecute any alcohol or drug abuse patient.[facility] the event this information is protected by the Federal Confidentiality of Alcohol and Drug Abuse Patient Records regulations: The Federal rules restrict any use of the information to criminally investigate or prosecute any alcohol or drug abuse patient.[facility] the event this information is protected by the Federal Confidentiality of Alcohol and Drug Abuse Patient Records regulations: The Federal rules restrict any use of the information to criminally investigate or prosecute any alcohol or drug abuse patient.[facility] the event this information is protected by the Federal Confidentiality of Alcohol and Drug Abuse Patient Records regulations: The Federal rules restrict any use of the information to criminally investigate or prosecute any alcohol or drug abuse patient.[facility] the event this information is protected by the Federal Confidentiality of Alcohol and Drug Abuse Patient Records regulations: The Federal rules restrict any use of the information to criminally investigate or prosecute any alcohol or drug abuse patient.[facility] the event this information is protected by the Federal Confidentiality of Alcohol and Drug Abuse Patient Records regulations: The Federal rules restrict any use of the information to criminally investigate or prosecute any alcohol or drug abuse patient.[facility] the event this information is protected by the Federal Confidentiality of Alcohol and Drug Abuse Patient Records regulations: The Federal rules restrict any use of the information to criminally investigate or prosecute any alcohol or drug abuse patient.[facility] the event this information is protected by the Federal Confidentiality of Alcohol and Drug Abuse Patient Records regulations: The Federal rules restrict any use of the information to criminally investigate or prosecute any alcohol or drug abuse patient.[facility] HospitalIn the event this information is protected by the Federal Confidentiality of Alcohol and Drug Abuse Patient Records regulations: The Federal rules restrict any use of the information to criminally investigate or prosecute any alcohol or drug abuse patient.[facility] HospitalIn the event this information is protected by the Federal Confidentiality of Alcohol and Drug Abuse Patient Records regulations: The Federal rules restrict any use of the information to criminally investigate or prosecute any alcohol or drug abuse patient.[facility] the event this information is protected by the Federal Confidentiality of Alcohol and Drug Abuse Patient Records regulations: The Federal rules restrict any use of the information to criminally investigate or prosecute any alcohol or drug abuse patient.[facility] HospitalIn the event this information is protected by the Federal Confidentiality of Alcohol and Drug Abuse Patient Records regulations: The Federal rules restrict any use of the information to criminally investigate or prosecute any alcohol or drug abuse patient.[facility] HospitalIn the event this information is protected by the Federal Confidentiality of Alcohol and Drug Abuse Patient Records regulations: The Federal rules restrict any use of the information to criminally investigate or prosecute any alcohol or drug abuse patient.[facility] HospitalIn the event this information is protected by the Federal Confidentiality of Alcohol and Drug Abuse Patient Records regulations: The Federal rules restrict any use of the information to criminally investigate or prosecute any alcohol or drug abuse patient.[facility] HospitalIn the event this information is protected by the Federal Confidentiality of Alcohol and Drug Abuse Patient Records regulations: The Federal rules restrict any use of the information to criminally investigate or prosecute any alcohol or drug abuse patient.[facility]In the event this information is protected by the Federal Confidentiality of Alcohol and Drug Abuse Patient Records regulations: The Federal rules restrict any use of the information to criminally investigate or prosecute any alcohol or drug abuse patient.[facility] HospitalIn the event this information is protected by the Federal Confidentiality of Alcohol and Drug Abuse Patient Records regulations: The Federal rules restrict any use of the information to criminally investigate or prosecute any alcohol or drug abuse patient.[facility] HospitalIn the event this information is protected by the Federal Confidentiality of Alcohol and Drug Abuse Patient Records regulations: The Federal rules restrict any use of the information to criminally investigate or prosecute any alcohol or drug abuse patient.[facility]In the event this information is protected by the Federal Confidentiality of Alcohol and Drug Abuse Patient Records regulations: The Federal rules restrict any use of the information to criminally investigate or prosecute any alcohol or drug abuse patient.[facility] the event this information is protected by the Federal Confidentiality of Alcohol and Drug Abuse Patient Records regulations: The Federal rules restrict any use of the information to criminally investigate or prosecute any alcohol or drug abuse patient.[facility] the event this information is protected by the Federal Confidentiality of Alcohol and Drug Abuse Patient Records regulations: The Federal rules restrict any use of the information to criminally investigate or prosecute any alcohol or drug abuse patient.[facility] the event this information is protected by the Federal Confidentiality of Alcohol and Drug Abuse Patient Records regulations: The Federal rules restrict any use of the information to criminally investigate or prosecute any alcohol or drug abuse patient.[facility] the event this information is protected by the Federal Confidentiality of Alcohol and Drug Abuse Patient Records regulations: The Federal rules restrict any use of the information to criminally investigate or prosecute any alcohol or drug abuse patient.[facility]In the event this information is protected by the Federal Confidentiality of Alcohol and Drug Abuse Patient Records regulations: The Federal rules restrict any use of the information to criminally investigate or prosecute any alcohol or drug abuse patient.[facility]In the event this information is protected by the Federal Confidentiality of Alcohol and Drug Abuse Patient Records regulations: The Federal rules restrict any use of the information to criminally investigate or prosecute any alcohol or drug abuse patient.[facility] HospitalIn the event this information is protected by the Federal Confidentiality of Alcohol and Drug Abuse Patient Records regulations: The Federal rules restrict any use of the information to criminally investigate or prosecute any alcohol or drug abuse patient.[facility] HospitalIn the event this information is protected by the Federal Confidentiality of Alcohol and Drug Abuse Patient Records regulations: The Federal rules restrict any use of the information to criminally investigate or prosecute any alcohol or drug abuse patient.[facility] HospitalIn the event this information is protected by the Federal Confidentiality of Alcohol and Drug Abuse Patient Records regulations: The Federal rules restrict any use of the information to criminally investigate or prosecute any alcohol or drug abuse patient.[facility]In the event this information is protected by the Federal Confidentiality of Alcohol and Drug Abuse Patient Records regulations: The Federal rules restrict any use of the information to criminally investigate or prosecute any alcohol or drug abuse patient.[facility]In the event this information is protected by the Federal Confidentiality of Alcohol and Drug Abuse Patient Records regulations: The Federal rules restrict any use of the information to criminally investigate or prosecute any alcohol or drug abuse patient.[facility] HospitalIn the event this information is protected by the Federal Confidentiality of Alcohol and Drug Abuse Patient Records regulations: The Federal rules restrict any use of the information to criminally investigate or prosecute any alcohol or drug abuse patient.[facility]In the event this information is protected by the Federal Confidentiality of Alcohol and Drug Abuse Patient Records regulations: The Federal rules restrict any use of the information to criminally investigate or prosecute any alcohol or drug abuse patient.[facility] HospitalIn the event this information is protected by the Federal Confidentiality of Alcohol and Drug Abuse Patient Records regulations: The Federal rules restrict any use of the information to criminally investigate or prosecute any alcohol or drug abuse patient.[facility] HospitalIn the event this information is protected by the Federal Confidentiality of Alcohol and Drug Abuse Patient Records regulations: The Federal rules restrict any use of the information to criminally investigate or prosecute any alcohol or drug abuse patient.[facility] HospitalIn the event this information is protected by the Federal Confidentiality of Alcohol and Drug Abuse Patient Records regulations: The Federal rules restrict any use of the information to criminally investigate or prosecute any alcohol or drug abuse patient.[facility] HospitalIn the event this information is protected by the Federal Confidentiality of Alcohol and Drug Abuse Patient Records regulations: The Federal rules restrict any use of the information to criminally investigate or prosecute any alcohol or drug abuse patient.[facility] HospitalIn the event this information is protected by the Federal Confidentiality of Alcohol and Drug Abuse Patient Records regulations: The Federal rules restrict any use of the information to criminally investigate or prosecute any alcohol or drug abuse patient.[facility] HospitalIn the event this information is protected by the Federal Confidentiality of Alcohol and Drug Abuse Patient Records regulations: The Federal rules restrict any use of the information to criminally investigate or prosecute any alcohol or drug abuse patient.[facility] HospitalIn the event this information is protected by the Federal Confidentiality of Alcohol and Drug Abuse Patient Records regulations: The Federal rules restrict any use of the information to criminally investigate or prosecute any alcohol or drug abuse patient.[facility] HospitalIn the event this information is protected by the Federal Confidentiality of Alcohol and Drug Abuse Patient Records regulations: The Federal rules restrict any use of the information to criminally investigate or prosecute any alcohol or drug abuse patient.[facility] HospitalIn the event this information is protected by the Federal Confidentiality of Alcohol and Drug Abuse Patient Records regulations: The Federal rules restrict any use of the information to criminally investigate or prosecute any alcohol or drug abuse patient.[facility] HospitalIn the event this information is protected by the Federal Confidentiality of Alcohol and Drug Abuse Patient Records regulations: The Federal rules restrict any use of the information to criminally investigate or prosecute any alcohol or drug abuse patient.[facility] HospitalIn the event this information is protected by the Federal Confidentiality of Alcohol and Drug Abuse Patient Records regulations: The Federal rules restrict any use of the information to criminally investigate or prosecute any alcohol or drug abuse patient.[facility] HospitalIn the event this information is protected by the Federal Confidentiality of Alcohol and Drug Abuse Patient Records regulations: The Federal rules restrict any use of the information to criminally investigate or prosecute any alcohol or drug abuse patient.[facility] HospitalIn the event this information is protected by the Federal Confidentiality of Alcohol and Drug Abuse Patient Records regulations: The Federal rules restrict any use of the information to criminally investigate or prosecute any alcohol or drug abuse patient.[facility] HospitalIn the event this information is protected by the Federal Confidentiality of Alcohol and Drug Abuse Patient Records regulations: The Federal rules restrict any use of the information to criminally investigate or prosecute any alcohol or drug abuse patient.[facility] HospitalIn the event this information is protected by the Federal Confidentiality of Alcohol and Drug Abuse Patient Records regulations: The Federal rules restrict any use of the information to criminally investigate or prosecute any alcohol or drug abuse patient.[facility] HospitalIn the event this information is protected by the Federal Confidentiality of Alcohol and Drug Abuse Patient Records regulations: The Federal rules restrict any use of the information to criminally investigate or prosecute any alcohol or drug abuse patient.[facility] HospitalIn the event this information is protected by the Federal Confidentiality of Alcohol and Drug Abuse Patient Records regulations: The Federal rules restrict any use of the information to criminally investigate or prosecute any alcohol or drug abuse patient.[facility] HospitalIn the event this information is protected by the Federal Confidentiality of Alcohol and Drug Abuse Patient Records regulations: The Federal rules restrict any use of the information to criminally investigate or prosecute any alcohol or drug abuse patient.[facility] HospitalIn the event this information is protected by the Federal Confidentiality of Alcohol and Drug Abuse Patient Records regulations: The Federal rules restrict any use of the information to criminally investigate or prosecute any alcohol or drug abuse patient.[facility] HospitalIn the event this information is protected by the Federal Confidentiality of Alcohol and Drug Abuse Patient Records regulations: The Federal rules restrict any use of the information to criminally investigate or prosecute any alcohol or drug abuse patient.[facility] HospitalIn the event this information is protected by the Federal Confidentiality of Alcohol and Drug Abuse Patient Records regulations: The Federal rules restrict any use of the information to criminally investigate or prosecute any alcohol or drug abuse patient.[facility] HospitalIn the event this information is protected by the Federal Confidentiality of Alcohol and Drug Abuse Patient Records regulations: The Federal rules restrict any use of the information to criminally investigate or prosecute any alcohol or drug abuse patient.[facility] HospitalIn the event this information is protected by the Federal Confidentiality of Alcohol and Drug Abuse Patient Records regulations: The Federal rules restrict any use of the information to criminally investigate or prosecute any alcohol or drug abuse patient.[facility] HospitalIn the event this information is protected by the Federal Confidentiality of Alcohol and Drug Abuse Patient Records regulations: The Federal rules restrict any use of the information to criminally investigate or prosecute any alcohol or drug abuse patient.[facility] HospitalIn the event this information is protected by the Federal Confidentiality of Alcohol and Drug Abuse Patient Records regulations: The Federal rules restrict any use of the information to criminally investigate or prosecute any alcohol or drug abuse patient.[facility] HospitalIn the event this information is protected by the Federal Confidentiality of Alcohol and Drug Abuse Patient Records regulations: The Federal rules restrict any use of the information to criminally investigate or prosecute any alcohol or drug abuse patient.[facility] HospitalIn the event this information is protected by the Federal Confidentiality of Alcohol and Drug Abuse Patient Records regulations: The Federal rules restrict any use of the information to criminally investigate or prosecute any alcohol or drug abuse patient.[facility] HospitalIn the event this information is protected by the Federal Confidentiality of Alcohol and Drug Abuse Patient Records regulations: The Federal rules restrict any use of the information to criminally investigate or prosecute any alcohol or drug abuse patient.[facility] HospitalIn the event this information is protected by the Federal Confidentiality of Alcohol and Drug Abuse Patient Records regulations: The Federal rules restrict any use of the information to criminally investigate or prosecute any alcohol or drug abuse patient.[facility] HospitalIn the event this information is protected by the Federal Confidentiality of Alcohol and Drug Abuse Patient Records regulations: The Federal rules restrict any use of the information to criminally investigate or prosecute any alcohol or drug abuse patient.[facility] HospitalIn the event this information is protected by the Federal Confidentiality of Alcohol and Drug Abuse Patient Records regulations: The Federal rules restrict any use of the information to criminally investigate or prosecute any alcohol or drug abuse patient.[facility] HospitalIn the event this information is protected by the Federal Confidentiality of Alcohol and Drug Abuse Patient Records regulations: The Federal rules restrict any use of the information to criminally investigate or prosecute any alcohol or drug abuse patient.[facility] HospitalIn the event this information is protected by the Federal Confidentiality of Alcohol and Drug Abuse Patient Records regulations: The Federal rules restrict any use of the information to criminally investigate or prosecute any alcohol or drug abuse patient.[facility] Teams (unrecognized sec tion and content) Informaticist Relationship Specialty Start Date End Date Ricardo Abraham [address] [place] [address] PCP - General Cardiology 05/22/19 Informaticist Relationship Specialty Start Date End Date Ricardo Abraham [address] [place] [address] PCP - General Cardiology 05/22/19 Informaticist Relationship Specialty Start Date End Date Ricardo Abraham [address] [place] [address] PCP - General Cardiology 05/22/19 Informaticist Relationship Specialty Start Date End Date Ricardo Abraham [address] [place] [address] PCP - General Cardiology 05/22/19 Informaticist Relationship Specialty Start Date End Date Ricardo Abraham [address] [place] [address] PCP - General Cardiology 05/22/19 Informaticist Relationship Specialty Start Date End Date Ricardo Abraham [address] [place] [address] PCP - General Cardiology 05/22/19 Informaticist Relationship Specialty Start Date End Date Ricardo Abraham [address] [place] [address] PCP - General Cardiology 05/22/19 Team Status: Active Member Role Status Dates No Primary Care Physician Family Provider Active RICARDO ABRAHAM MD Primary Care Provider Active Team Status: Inactive Member Role Status Dates RICARDO ABRAHAM MD Primary Care Provider Active Dr. Mario Yun , JULIO Attending Provider Active Team Status: Inactive Member Role Status Dates RICARDO ABRAHAM MD Primary Care Provider Active Dr. Mario Yun DPM Attending Provider, Referring Provider Active Dr. Anita Zhang MD Other Provider Active Informaticist Relationship Specialty Start Date End Date Ricardo Abraham [address] [place] [address] PCP - General Cardiology 05/22/19 Informaticist Relationship Specialty Start Date End Date Ricardo Abrahma [address] [place] [address] PCP - General Cardiology 05/22/19 Team Status: Inactive Member Role Status Dates RICARDO ABRAHAM MD Primary Care Provider Active Dr. Mario Yun DPM Attending Provider, Referring Provider Active Informaticist Relationship Specialty Start Date End Date Ricardo Abraham [address] [place] [address] PCP - General Cardiology 05/22/19 Informaticist Relationship Specialty Start Date End Date Ricardo Abraham [address] [place] [address] PCP - General Cardiology 05/22/19 Informaticist Relationship Specialty Start Date End Date Ricardo Abraham [address] [place] [address] PCP - General Cardiology 05/22/19 Informaticist Relationship Specialty Start Date End Date Ricardo Abraham [address] [place] [address] PCP - General Cardiology 05/22/19 Team Status: Inactive Member Role Status Dates RICARDO ABRAHAM MD Primary Care Provider Active Dr. Anita Zhang MD Attending Provider, Referring P elizabeth Active Informaticist Relationship Specialty Start Date End Date Ricardo Abraham [address] [place] [address] PCP - General Cardiology 05/22/19 Informaticist Relationship Specialty Start Date End Date Ricardo Abraham [address] [place] [address] PCP - General Cardiology 05/22/19 Informaticist Relationship Specialty Start Date End Date Ricardo Abraham [address] [place] [address] PCP - General Cardiology 05/22/19 Team Status: Inactive Member Role Status Dates RICARDO ABRAHAM MD Primary Care Provider Active Dr. Mario Yun , DPM Attending Provider, Referring Provider Active Dr. Luis A Adkins MD Other Provider Active Informaticist Relationship Specialty Start Date End Date Ricardo Abraham MD PCP - General Cardiology 05/22/19 Informaticist Relationship Specialty Start Date End Date Ricardo Abraham MD PCP - General Cardiology 05/22/19 Informaticist Relationship Specialty Start Date End Date Ricardo Abraham MD PCP - General Cardiology 05/22/19 Informaticist Relationship Specialty Start Date End Date Ricardo Abraham MD PCP - General Cardiology 05/22/19 Informaticist Relationship Specialty Start Date End Date Ricardo [...] Dr. Minoo Myers DO Other Provider Active Informaticist Relationship Specialty Start Date End Date Ricardo Abraham MD [address] [place] [address] PCP - General Cardiology 05/22/19 Informaticist Relationship Specialty Start Date End Date Ricardo Abraham MD [address] [place] [address] PCP - General Cardiology 05/22/19 Team Status: Inactive Member Role Status Dates RICARDO ABRAHAM MD Primary Care Provider Active Dr. Luis A Adkins MD Attending Provider Active Informaticist Relationship Specialty Start Date End Date Ricardo Abraham MD [address] [place] [address] PCP - General Cardiology 05/22/19 Informaticist Relationship Specialty Start Date End Date Ricardo Abraham MD [address] [place] [address] PCP - General Cardiology 05/22/19 Informaticist Relationship Specialty Start Date End Date Ricardo Abraham MD [address] [place] [address] PCP - General Cardiology 05/22/19 Informaticist Relationship Specialty Start Date End Date Ricardo Abraham MD [address] [facility] [place] [address] PCP - General Cardiology 05/22/19 Informaticist Relationship Specialty Start Date End Date Ricardo Abraham MD [address] [facility] [place] [address] PCP - General Cardiology 05/22/19 Informaticist Relationship Specialty Start Date End Date Ricardo Abraham MD [address] [facility] [place] [address] PCP - General Cardiology 05/22/19 Informaticist Relationship Specialty Start Date End Date Ricardo Abraham MD [address] [facility] [place] [address] PCP - General Cardiology 05/22/19 Informaticist Relationship Specialty Start Date End Date Ricardo Abraham MD [address] [facility] [place] [address] PCP - General Cardiology 05/22/19 Informaticist Relationship Specialty Start Date End Date Ricardo Abraham MD [address] [facility] [place] [address] PCP - General Cardiology 05/22/19 Informaticist Relationship Specialty Start Date End Date Ricardo Abraham MD [address] [facility] [place] [address] PCP - General Cardiology 05/22/19 Informaticist Relationship Specialty Start Date End Date Ricardo Abraham MD [address] [facility] [place] [address] PCP - General Cardiology 05/22/19 Informaticist Relationship Specialty Start Date End Date Ricardo Abraham MD [address] [facility] [place] [address] PCP - General Cardiology 05/22/19 Informaticist Relationship Specialty Start Date End Date Ricardo Abraham MD [address] [facility] [place] [address] PCP - General Cardiology 05/22/19 Informaticist Relationship Specialty Start Date End Date Ricardo Abraham MD [address] [place] [address] PCP - General Cardiology 05/22/19 Informaticist Relationship Specialty Start Date End Date Ricardo Abraham MD [address] [place] [address] PCP - General Cardiology 05/22/19 Informaticist Relationship Specialty Start Date End Date Ricardo Abraham MD [address] [facility] [place] [address] PCP - General Cardiology 05/22/19 Informaticist Relationship Specialty Start Date End Date Ricardo Abraham MD [address] [facility] [place] [address] PCP - General Cardiology 05/22/19 Informaticist Relationship Specialty Start Date End Date Ricardo Abraham MD [address] [facility] [place] [address] PCP - General Cardiology 05/22/19 Informaticist Relationship Specialty Start Date End Date Ricardo Abraham MD [address] [facility] [place] [address] PCP - General Cardiology 05/22/19 Informaticist Relationship Specialty Start Date End Date Ricardo Abraham MD [address] [facility] [place] [facility] [place] [address] PCP - General Cardiology 05/22/19 Informaticist Relationship Specialty Start Date End Date Ricardo Abraham MD [address] [facility] [place] [address] PCP - General Cardiology 05/22/19 Informaticist Relationship Specialty Start Date End Date Ricardo Abraham MD [address] [facility] [place] [address] PCP - General Cardiology 05/22/19 Informaticist Relationship Specialty Start Date End Date Ricardo Abraham MD [address] [facility] [place] [address] PCP - General Cardiology 05/22/19 Informaticist Relationship Specialty Start Date End Date Ricardo Abraham MD [address] [facility] [place] [address] PCP - General Cardiology 05/22/19 Informaticist Relationship Specialty Start Date End Date Ricardo Abraham MD [address] [facility] [place] [address] PCP - General Cardiology 05/22/19 Team Status: Active Member Role/Relationship Status Dates RICARDO ABRAHAM MD Primary Care Provider Active Team Status: Inactive Member Role/Relationship Status Dates RICARDO ABRAHAM MD Primary Care Provider Active St art: November 24, 2024 End: November 24, 2024 Edu BROWN PA-C Attending Provider Active Start: November 24, 2024 End: November 24, 2024 Edu BROWN PA-C Referring Provider Active Start: November 24, 2024 End: November 24, 2024 Team Status: Inactive Member Role/Relationship Status Dates RICARDO ABRAHAM MD Primary Care Provider Active St art: December 11, 2024 End: December 11, 2024 Dr. Miguelito Garcia DO Attending Provider Active Start: December 11, 2024 End: December 11, 2024 Dr. Miguelito Garcia DO Referring Provider Active Start: December 11, 2024 End: December 11, 2024 Informaticist Relationship Specialty Start Date End Date Ricardo Abraham MD [address] [place] [address] PCP - General Cardiology 05/22/19 Team Status: Inactive Member Role/Relationship Status Dates RICARDO ABRAHAM MD Primary Care Provider Active St art: January 07, 2025 End: January 08, 2025 Dr. Miguelito Garcia DO Admit Provider Active Start: January 07, 2025 End: January 08, 2025 Dr. Miguelito Garcia DO Referring Provider Active Start: January 07, 2025 End: January 08, 2025 Dr. Miguelito Garcia DO Other Provider Active Start: January 07, 2025 End: January 08, 2025 Dr. Kevin George MD Other Provider Active Star t: January 07, 2025 End: January 08, 2025 Dr. Ann Mansfield MD Other Provider Active Star t: January 07, 2025 End: January 08, 2025 Dr. Meredith Momin MD Attending Provider Active Start: January 07, 2025 End: January 08, 2025 Team Status: Active Member Role/Relationship Status Dates RICARDO ABRAHAM MD Primary Care Provider Active St art: January 07, 2025 Dr. Miguelito Garcia DO Admit Provider Active Start: January 07, 2025 Dr. Miguelito Garcia DO Referring Provider Active Start: January 07, 2025 Dr. Miguelito Garcia DO Other Provider Active Start: January 07, 2025 Dr. Kevin George MD Other Provider Active Star t: January 07, 2025 Dr. Ann Mansfield MD Attending Provider Active Start: January 07, 2025 Dr. Ann Mansfield MD Other Provider Active Star t: January 07, 2025 Team Status: Active Member Role/Relationship Status Dates RICARDO ABRAHAM MD Primary Care Provider Active St art: January 08, 2025 Dr. Miguelito Garcia DO Admit Provider Active Start: January 08, 2025 Dr. Miguelito Garcia DO Referring Provider Active Start: January 08, 2025 Dr. Miguelito Garcia DO Other Provider Active Start: January 08, 2025 Dr. Kevin George MD Other Provider Active Star t: January 08, 2025 Dr. Ann Mansfield MD Other Provider Active Star t: January 08, 2025 Dr. Meredith Momin MD Attending Provider Active Start: January 08, 2025 Dr. Meredith Momin MD Other Provider Active Star t: January 08, 2025 Informaticist Relationship Specialty Start Date End Date Ricardo Abraham MD [address] [place] [address] PCP - General Cardiology 05/22/19 Goals (unrecognized [...] BE BASED ON THE PRIMARY CLINICAL RECORDS. [facility] [employer] [facility]. provides no warranty or guarantee of the accuracy or completeness of information in this document.
[2025-04-25 23:00] LABS: Hematocrit 42.3 % (40-54); Hemoglobin 14.1 g/dL (13.0-16.5); Immature Granulocytes Count 0.110 X10^3/uL (0.0-0.0); Mean Corp Hgb Conc 33.3 g/dL (32-36); Mean Corpuscular Volume 83.9 fL (80-94); Mean Platelet Vol. 11.6 fl (6.2-12.0); NRBC Flagged by Analyzer 0 % (0-5); POSITIVE DIFFERENTIAL YES; Platelet Count 173 K/mm3 (150-450); RBC Distribution Width CV 14.3 % (11.6-14.6); RBC Distribution Width SD 43.7 fl (35.1-43.9); Red Blood Count 5.04 M/mm3 (4.6-6.2); White Blood Count 16.7 K/mm3 (4.4-11.0)
[2025-04-25 23:02] LABS: Differential Indicated SCAN CRITERIA MET
--- NOTE | 2025-04-25 23:09 | CT_ITS ---
PROCEDURE: BRAIN/HEAD WITHOUT CONTRAST 04/25/2025 REASON FOR EXAM: CONFUSION TECHNIQUE: Procedure Code: CTBR Modality: CT Procedure: BRAIN/HEAD WITHOUT CONTRAST Coronal and Sagittal reconstruction series were provided. One or more dose reduction techniques were used (e.g., Automated exposure control, adjustment of the mA and/or kV according to patient size, use of iterative reconstruction technique. RADIATION DOSE SUMMARY: DLP: 565 mGycm COMPARISON: none FINDINGS: There is no acute infarct, intracranial hemorrhage, or mass effect. There is no hydrocephalus or significant midline shift. There is mild chronic microvascular ischemic changes and mild parenchymal volume loss. No acute, depressed calvarial fractures. No large scalp hematomas. The paranasal sinuses are clear. Bilateral antrostomies. CT/Brain/Head without Contrast IMPRESSION: No acute intracranial process. Reading Location: [facility]
[2025-04-25 23:21] LABS: AST(SGOT) 40 U/L (<=37); Alanine Aminotransfer ALT/SGPT 19 U/L (<=46); Albumin, Serum 4.3 g/dL (3.4-4.8); Alkaline Phosphatase 62 U/L (40-129); Anion Gap 24 (5-15); BUN 74 mg/dL (4-19); BUN/Creat Ratio 8.9 RATIO (10-20); Calcium,Total 9.4 mg/dL (7.6-11.0); Carbon Dioxide 17.5 mmol/L (21.0-32.0); Chloride 95 mmol/L (98-108); Estimated Creatinine Clearance 12.34 ml/min (50-250); Globulin 3.4 g/dL (2.2-4.2); Glucose 125 mg/dL (70-99); Potassium 4.4 mmol/L (3.3-5.1)
[2025-04-25 23:22] LABS: Troponin T High Sensitivity 305 ng/L (<=22)
[2025-04-25 23:23] LABS: Alcohol, Blood (Medical)-Serum < 10.1 mg/dL (<=10.0)
[2025-04-25 23:26] VITALS: BP 149/119; PULSE 90; RESP 16; TEMP 36.7; O2SAT 95
--- NOTE | 2025-04-25 23:40 | EKG12_ITS ---
Test Reason : SOB Blood Pressure : */* mmHG Vent. Rate : 86 BPM Atrial Rate : 83 BPM P-R Int : * ms QRS Dur : 94 ms QT Int : 338 ms P-R-T Axes : * -1 27 degrees QTcB Int : 404 ms sinus rhythm with first degree avb Otherwise normal ECG Reconfirmed by Heath Connell ([id number]), script editor RICHARD BLACK ([id number]) on 04/28/2025 10:51:36 AM Referred By: ER PHYS Confirmed By: Heath Connell
--- NOTE | 2025-04-25 23:40 | RAD_ITS ---
PROCEDURE: SHOULDER MIN 2 VIEWS 04/25/2025 REASON FOR EXAM: SWELLING TECHNIQUE: Procedure Code: RADSH Modality: DX Procedure: SHOULDER MIN 2 VIEWS COMPARISON: Radiograph on 01/07/2025. FINDINGS: Reverse shoulder arthroplasty is again noted. Cranial displacement/dislocation of the humerus in relation to the glenoid at the level of the glenohumeral joint. Overlying soft tissue edema and swelling. No fracture is seen. RAD/Shoulder min 2 Views IMPRESSION: Reverse shoulder arthroplasty is again noted. Cranial displacement/dislocation of the humerus in relation to the glenoid at t he level of the glenohumeral joint. Reading [facility]
[2025-04-25 23:43] LABS: Differential Comment SCANNED
[2025-04-26] VITALS (21 sets, daily range): BP systolic 85–145; BP diastolic 44–103; PULSE 70–90; RESP 3–18; TEMP 36.7–37.9; O2SAT 45–98; BMI 34.7
[2025-04-26 00:09] LABS: Mucous, Urine 0 SEEN /hpf (<or=2+); Squamous Epithelial Cells - UA 0 SEEN /hpf (0-5)
[2025-04-26 00:12] LABS: Color, Urine Yellow (Yellow); Glucose, Dipstick Normal (Normal); Ketone-Dipstick Negative (Negative); Leukocyte Esterase-Dipstick 25 /ul (Negative); Nitrite-Dipstick Negative (Negative); Occult Blood-Urine 250 /ul (Negative); Protein-Dipstick 100 mg/dl (Negative); Specific Gravity, Urine 1.020 (1.002-1.030)
[2025-04-26 00:16] LABS: Urine Bilirubin Dipstick 1 mg/dL (Negative)
[2025-04-26 00:25] LABS: Calcium Oxalate Crystals Ur 1+ /hpf (<or=2+); Red Blood Cells-Urine 5-10 SEEN /hpf (0-5)
[2025-04-26 00:44] LABS: Barbiturate Urine NEGATIVE (< 200 ng/mL); Benzodiazepine Urine NEGATIVE (< 200 ng/mL); PCP Urine NEGATIVE (< 25 ng/mL); THC Urine NEGATIVE (< 50 ng/mL)
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
--- OUTSIDE RECORDS SUMMARY | 2025-04-26 00:58 | XMS RPT_ITS | CCD ---
Author Organization [facility] Care Team Providers Care Escrow Representative Name Role Phone Leticia Dash Unavailable Unavailable [...] Ricardo Abrahammond Primary Care Provider Black, Ricardo [place] Primary Care Provider [phone] Black, Ricardo [place] Primary Care Provider [phone] Jarad LEYVA, [facility] Primary Care Provider Unavailankush ABRAHAM MD [place] Primary Care Provider [phone] Luis A Adkins Admit Provider Dr. Luis A Adkins Referring Provider Dr. Luis A Adkins Other Provider Dr. Miguelito Mesa Attending Provider Dr. Miguelito Mesa Other Provider Jarad LEYVA, [facility] Primary Care Provider Jarad LEYVA, [facility] Primary Care Provider REJI MANSFIELD Attending Unavailable REJI MANSFIELD Admitting Unavailable BLACK, RICARDO R Primary Care Unavailable BLACK, [place] R Primary Care Unavailable SHARLENE ESCOBAR Referring Unavailable JARAD LEYVA, [place] Primary Care Provider [phone] Edu Haynes [...] Care Unavailable SHARLENE ESCOBAR Attending Unavailable ERIC ABRAHMANN R Primary Care Unavailable BLACK, RICARDO Referring [...] Attending Unavailable Spittle, Miguelito Referring Unavailable BLACK, [place] Primary Care Unavailable Mario Yun Attending Unavailable Allergies Allergy Classification Reported Allergen(s) Allergy Type Date of Onset Reaction(s) Facility metFORMIN (1 source) metFORMIN Drug Allergy 4 Swelling [facility] (1 source) Codeine Drug Allergy 8 Rash [facility] (20 sources) Codeine; Translations: [CODEINE] Drug Allergy 9 Rash [facility] Repository (20 sources) metFORMIN; Translations: [METFORMIN] Drug Allergy 4 Swelling, Other: See Comments [facility] [facility] Repository (1 source) OTHER (REVIEW COMMENTS!); Translations: [OTHER (REVIEW COMMENTS!)] Propensity to adverse reactions to drug (disorder) 1 [facility] Repository (20 sources) Seasonal allergy; Translations: [SEASONAL ALLERGIES] Propensity to adverse reactions 1 Other: See Comments [facility] Medications Current Medications Medication Drug Class(es) Dates [...] 6 HOURS NEEDED September 22, 2015 11:00pm [id number] actuat albuterol 0.09 mg/actuat metered dose [...] days 20 tablet 0 05/08/2019 05/18/2019 Active Nrqgzong-Fiplcbkmt-Cpopyvw H MB (KIRK) 7-7-1.5 gram pwpk (20 [...] Active docusate sodium 50 mg / sennosides, care home 8.6 mg oral tablet (8 sources) Start: [...] polyneuropathy, with long-term current use of insulin ([facility]) Inject subcutaneously 15 units breakfast, 15 units [...] polyneuropathy, with long-term current use of insulin ([facility]) , 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d by mild nonproliferative retinopathy and macular edema, with long-term current use of insulin ([facility]) Inject subcutaneously 24 units breakfast, 20 units [...] polyneuropathy, with long-term current use of insulin ([facility]) , 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d by mild nonproliferative retinopathy and macular edema, with long-term current use of insulin ([facility]) Inject subcutaneously 22 units breakfast, 22 units [...] polyneuropathy, with long-term current use of insulin ([facility]) , Type 2 diabetes mellitus with both [...] take 1 capsule by mo [facility] once daily Pregabalin (Lyrica) 150 MG capsule Active 150 mg PO .qd 2015 12:00am Start: 2015 take 1 capsule by mo [facility] twice daily Pregabalin (Lyrica) 150 MG capsule Active 150 mg PO TWICE A DAY 2015 12:00am Comment on above: Take 1 capsule by [facility] three times daily. Semaglutide (7 sources) Start: [...] edema, with long-term current use of insulin ([facility]) , Type 2 diabetes mellitus with diabetic polyneuropathy, with long-term current use of insulin (HCC) , Type 2 diabetes mellitus with microalbuminuria, with long-term current use of insulin ([facility]) Inject 10 mg subcutaneously one time a [...] microalbuminuria, with long-term current use of insulin ([facility]) Inject 10 mg subcutaneously one time a [...] 250 mL IVPB Blood-Glucose Meter,Continuous (DEXCOM G6 ACTUARIAL ANALYST) misc (17 sources) Start: 08-23-2023 End: 12-31-2023 Blood-Glucose Meter,Continuous (DEXCOM G6 ACTUARIAL ANALYST) misc Indications: 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, with long-term current use of insulin ([facility]) Use continuously to monitor glucose, IDDM, E 11.42 1 Each 08/23/2023 12/31/2023 Discontinued Start: 08-23-2023 Blood-Glucose Meter,Continuous (DEXCOM G6 ACTUARIAL ANALYST) [facility] Indications: 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, with long-term current use of insulin (HCC) Use continuously to monitor glucose, IDDM, E 11.42 1 Each 08/23/2023 Active Start: 08-23-2023 Blood-Glucose Meter,Continuous (DEXCOM G6 ACTUARIAL ANALYST) [facility] Indications: 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, with long-term current use of insulin (HCC) Use continuously to monitor glucose, IDDM, E 11.42 1 Each 08/23/2023 Active Comment on above: Use continuously to monitor glucose, IDDM, E 11.42 Blood-Glucose Sensor (DEXCOM G6 SENSOR) [facility] (17 sources) Start: 08-23-2023 End: 12-31-2023 Blood-Glucose Sensor (DEXCOM G6 SENSOR) imller Indications: 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 X 12 wks. [...] Take 1 capsule by mo [facility] twice daily for 30 days. gemfibrozil 600 [...] edema, with long-term current use of insulin ([facility]) Inject subcutaneously 68 units daily in the [...] Coronary arteriosclerosis; Translations: [Atherosclerotic heart disease of [place] coronary artery without angina pectoris] Onset: 12-06-2023 [...] 02-04-2006 03-30-2008 Chronic Other aftercare (6 sources) nursing home (current) use of insulin; Translations: [Type 2 [...] microalbuminuria, with long-term current use of insulin ([facility])] Onset: Episodic Inflammatory conditions of male genital [...] HEEL ULCER No anaerobic bacteria isolated. Normal [facility] Comment on above: Performed By: #### M 100.3000, M100.2000, M600.2000, M100.4001, M600.2200 #### [facility] [address] [place], [address] Wound Cultureon 03-13-2025 WC LEFT HEEL ULCER [...] TMP SMX Islt ISHA <=20 S Normal [facility] Comment on above: Performed By: #### M 100.3000, M100.2000, M600.2000, M100.4001, M600.2200 #### [facility] [address] [place], [place], [address] Gram Stainon 03-11-2025 GS LEFT HEEL ULCER Gram Stain 3+ Red Blood Cells No organisms seen No White Blood Cells No Epithelial cells Normal [facility] Comment on above: Performed By: #### M 100.3000, M100.2000, M600.2000, M100.4001, M600.2200 #### [facility] [address] [place], [place], [address] Wound Ctr History AND Physic kodi 03-10-2025 Wound Ctr History & Physical [facility] [address] [place] [address] H P Exam - Wound Care 03/10/25 1507 MR#: [id number] Acct: [id number] Name: ISA MAYEN Rep #: [id number] : 1960 64 From: Danilo Rodriguez DPM [...] No other pedal complaints at this time. [facility] Medical History Difficulty chewing Burn History of [...] Physical Exam Blayne (more content not included)... [facility] 02-17-2025 [facility] Telephone ([employer]) KOTABISHISA ([id number]) 1960 M Date Time Provider Department 02/17/25 SHARLENE ESCOBAR During your visit today, we recorded the following information about you: Yanet Karimi RN 02/17/2025 2:19 PM Signed Received a form from [employer] that a there is cost savings for [...] 02/18/2025 2:56 PM Signed Form faxed to: [phone] Confirmation fax received. Transmission successful. Allergies As [...] IDDM, E11.42 - flash glucose scanning reader ([employer] ALONSO 2 READER) Use as instructed to monitor glucose continuously, IDDM, E11.42 - pregabalin (LYRICA) 150 mg capsule Take 1 capsule by mouth three times daily. - Mrxulvlm-Xggehsugy-Ehmvwyh HMB (KIRK) 7-7-1.5 gram pwpk Take 1 Each by mouth once daily. - amLODIPine-benazepril (LOTREL) 5-20 mg per capsule - HYDROCHLOROTHIAZIDE 25 MG TAB Take one(1) tablet daily. Problem List As Of Date 02/17/2025 Noted Resolved Essential hypertension [I10] 08/13/2005 OPEN WOUND FINGER W TENDON [S61.209A] 08/13/2005 INJURY DIGITAL NERVE [[id number]] 08/13/2005 TRIGGER FINGER [M65.30] 08/13/2005 INJURY FINGER [...] Status:Closed by NATY SEN on 02/18/25 Normal [facility] Bedside Glucoseon 01-13-2025 FINGERSTICK GLU 127 mg/dL High 74-106 [facility] Comment on above: Result Comment: VI FERRERA OF PATIENT CARE PER NURSING PROTOCOL Performed By: #### M 100.3000, M100.1999, M6, M1.400, M600.2199 #### [facility] [address] [place], [place], [address] Anion gap in Serum or Plasma Ordered By: Miguelito Garcia on 01-08-2025 Anion gap [Moles/Vol] 12 mmol/L 09-17 [facility] BUN/creatinine ratioOrdered By: Miguelito Garcia on 01-08-2025 Urea nitrogen/Creatinine [Mass ratio] 16.5 mg/mg 02-22 [facility] Basic Metabolic Profile (BMP )on 01-08-2025 BUN/CRE 16.5 RATIO Normal 02-22 [facility] Comment on above: Performed By: #### M 100.3000, M100.1999, M6.1999, M100.400, M600.0 #### [facility] [address] [place], [place], [address] Calcium [Mass/Vol] 9.3 mg/dL Normal 7.6-11.0 [facility] Comment on above: Performed By: #### M 100.3000, M100.2000, M600.1999, M100.400, M600.2200 #### [facility] [address] [place], [address] Chloride [Moles/Vol] 106 mmol/L Normal 98-108 [facility] Comment on above: Performed By: #### M 100.3000, M100.2000, M600.2000, M100.4001, M600.2200 #### [facility] [address] [place], [address] CO2 [Moles/Vol] 21.5 mmol/L Normal 21.0-32.0 [facility] Comment on above: Performed By: #### M 100.3000, M100.2000, M600.2000, M100.4001, M600.2200 #### [facility] [address] [place], [address] Creatinine [Mass/Vol] 0.95 mg/dL Normal 0.70-1.20 [facility] Comment on above: Performed By: #### M 100.3000, M100.1999, M600.2000, M100.4001, M600.2200 #### [facility] [address] [place], [address] ECRCL 105.73 ml/min Normal 50-250 [facility] Comment on above: Performed By: #### M 100.3000, M100.2000, M600.2000, M100.4001, M600.2200 #### [facility] [address] [place], [address] GAP 12 Normal 5-15 [facility] Comment on above: Performed By: #### M 100.3000, M100.2000, M600.2000, M100.4001, M600.2200 #### [facility] [address] [place], [address] GFR/1.73 sq M.predicted among non-blacks MDRD (S/P/Bld) [Vol rate/Area] 89 mL/min/{1.73_m2} Normal >60 [facility] Comment on above: Result Comment: mL/m in/1.73m2 CKD-EPI Creatinine Equation (2020) Performed By: #### M 100.3000, M100.1999, M6.1999, M100.4001, M600.2200 #### [facility] [address] [place], [address] Glucose [Mass/Vol] 156 mg/dL High 70-99 [facility] Comment on above: Performed By: #### M 100.3000, M100.1999, M6.1999, M100.4001, M600.2200 #### [facility] [address] [place], [address] Potassium [Moles/Vol] 4.2 mmol/L Normal 3.3-5.1 [facility] Comment on above: Performed By: #### M 100.3000, M1.1999, M6, M100.400, M600.2200 #### [facility] [address] [place], [address] Sodium [Moles/Vol] 140 mmol/L Normal 133-145 [facility] Comment on above: Performed By: #### M 100.3000, M1.1999, M6, M100.4001, M600.2200 #### [facility] [address] [place], [address] Urea nitrogen [Mass/Vol] 16 mg/dL Normal 4-19 [facility] Comment on above: Performed By: #### M 100.3000, M100.1999, M600.1999, M100.4001, M600.2200 #### [facility] [address] [place], [address] Bedside Glucoseon 01-08-2025 FINGERSTICK GLU 186 mg/dL High 74-106 [facility] Comment on above: Result Comment: VI FERRERA OF PATIENT CARE PER NURSING PROTOCOL Performed By: #### M 100.3000, M100.1999, M6, M1.400, M6.2199 #### [facility] [address] [place], [address] FINGERSTICK GLU 142 mg/dL High 74-106 [facility] Comment on above: Result Comment: VI FERRERA OF PATIENT CARE PER NURSING PROTOCOL Performed By: #### M 100.3000, .1999, M6, .400, M6.2199 #### [facility] [address] [place], [address] CBC-Complete Blood Cnt No Di ffon 01-08-2025 Erythrocyte distribution width (RBC) [Ratio] 13.7 % Normal 11.6-14.6 [facility] Comment on above: Performed By: #### M 100.3000, , , .400, M6.0 #### [facility] [address] [place], [address] Hematocrit (Bld) [Volume fraction] 37.7 % Low 40-54 [facility] Comment on above: Performed By: #### M 100.3000, , , M1.400, M600.0 #### [facility] [address] [place], [address] Hemoglobin (Bld) [Mass/Vol] 13.3 g/dL Normal 13.0-16.5 [facility] Comment on above: Performed By: #### M 100.3000, M1.1999, M6, M100.4001, M600.2200 #### [facility] [address] [place], [address] MCH (RBC) [Entitic mass] 28.9 pg Normal 27.0-32.0 [facility] Comment on above: Performed By: #### M 100.3000, M1.1999, M6, .4001, M600.0 #### [facility] [address] [place], [address] MCHC (RBC) [Mass/Vol] 35.3 g/dL Normal 32-36 [facility] Comment on above: Performed By: #### M 100.3000, M100.1999, M600.1999, M100.4001, M600.2200 #### [facility] [address] [place], [address] MCV (RBC) [Entitic vol] 82.0 fL Normal 80-94 [facility] Comment on above: Performed By: #### M 100.3000, M100.1999, M600.1999, M100.400, M6.2199 #### [facility] [address] [place], [address] Platelet mean volume (Bld) [Entitic vol] 10.4 fL Normal 6.2-12.0 [facility] Comment on above: Performed By: #### M 100.3000, M100.1999, M600.1999, M100.400, M6.2199 #### [facility] [address] [place], [address] Platelets (Bld) [#/Vol] 180 10*3/uL Normal 150-450 [facility] Comment on above: Performed By: #### M 100.3000, M100.1999, M600.1999, M100.400, M600.2199 #### [facility] [address] [place], [address] RBC (Bld) [#/Vol] 4.60 10*6/uL Normal 4.6-6.2 [facility] Comment on above: Performed By: #### M 100.3000, M100.1999, M600.1999, M100.4001, M600.2200 #### [facility] [address] [place], [address] RDW SD 40.5 fl Normal 35.1-43.9 [facility] Comment on above: Performed By: #### M 100.3000, M100.1999, M600.1999, M100.4001, M600.2200 #### [facility] [address] [place], [address] WBC (Bld) [#/Vol] 16.5 10*3/uL High 4.4-11.0 [facility] Comment on above: Performed By: #### M 100.3000, M100.1999, M600.1999, M100.4001, M600.2200 #### [facility] [address] [place], [address] Carbon dioxide, total [Moles /volume] in Central venous bloodOrdered By: Miguelito Garcia on 01-08-2025 CO2 [Moles/Vol] 21.5 mmol/L 21.0-32.0 [facility] Chloride assayOrdered By: Rizwana Garcia on 01-08-2025 Chloride [Moles/Vol] 106 mmol/L 98-108 [facility] Erythrocyte distribution wid th ratioOrdered By: Miguelito Garcia on 01-08-2025 Erythrocyte distribution width (RBC) [Ratio] 13.7 % 11.6-14.6 [facility] Erythrocyte distribution wid th standard deviationOrdered By: Miguelito Garcia on 01-08-2025 Erythrocyte distribution width (RBC) [Ratio] 40.5 fl 35.1-43.9 [facility] Glomerular filtration rate ( GFR) estimation/1.73 sq m using serum, plasma, or whole bOrdered By: Miguelito Garcia on 01-08-2025 GFR/1.73 sq M.predicted among non-blacks MDRD (S/P/Bld) [Vol rate/Area] 89 mL/min/{1.73_m2} >60 [facility] Comment on above: mL/min/1.73m2 CKD-EP I Creatinine Equation (2020) [facility] deOrdered By: Meredith Momin on 01-08-2025 Glucose [Mass/Vol] 186 mg/dL High 74-106 [facility] Comment on above: MANAGEMENT OF PATIEN T CARE PER NURSING PROTOCOL Hematocrit Auto (Bld) [Volum e fraction]Ordered By: Miguelito Garcia on 01-08-2025 Hematocrit (Bld) [Volume fraction] 37.7 % Low 40-54 [facility] Hemoglobin measurementOrdere d By: Miguelito Garcia on 01-08-2025 Hemoglobin (Bld) [Mass/Vol] 13.3 g/dL 13.0-16.5 [facility] MCV (mean corpuscular volume ) determinationOrdered By: Miguelito Garcia on 01-08-2025 MCV (RBC) [Entitic vol] 82.0 fL 80-94 [facility] Mean corpuscular hemoglobin (MCH) determinationOrdered By: Miguelito Garcia on 01-08-2025 MCH (RBC) [Entitic mass] 28.9 pg 27.0-32.0 [facility] Mean corpuscular hemoglobin concentration (MCHC) determinationOrdered By: Miguelito Garcia on 01-08-2025 MCHC (RBC) [Mass/Vol] 35.3 g/dL 32-36 [facility] Mean platelet volume determi nationOrdered By: Miguelito Garcia on 01-08-2025 Platelet mean volume (Bld) [Entitic vol] 10.4 fL 6.2-12.0 [facility] Platelet countOrdered By: Rizwana Garcia on 01-08-2025 Platelets (Bld) [#/Vol] 180 10*3/uL 150-450 [facility] Potassium measurement (mass/ volume)Ordered By: Miguelito Garcia on 01-08-2025 Potassium (Unsp spec) [Mass/Vol] 4.2 mmol/L 3.3-5.1 [facility] RBC Auto (Bld) [#/Vol]Ordere d By: Miguelito Garcia on 01-08-2025 RBC (Bld) [#/Vol] 4.60 10*6/uL 4.6-6.2 [facility] Serum creatinine measurement (mass/volume)Ordered By: Miguelito Garcia on 01-08-2025 Creatinine [Mass/Vol] 0.95 mg/dL 0.70-1.20 [facility] Serum glucose measurement (m ass/volume)Ordered By: Miguelito Garcia on 01-08-2025 Glucose [Mass/Vol] 156 mg/dL High 70-99 [facility] Serum or plasma calcium camelia urement (mass/volume)Ordered By: Miguelito Garcia on 01-08-2025 Calcium [Mass/Vol] 9.3 mg/dL 7.6-11.0 [facility] Serum or plasma urea nitroge n measurement (mass/volume)Ordered By: Miguelito Garcia on 01-08-2025 Urea nitrogen [Mass/Vol] 16 mg/dL 4-19 [facility] Sodium levelOrdered By: Erwin Garcia on 01-08-2025 Sodium [Moles/Vol] 140 mmol/L 133-145 [facility] White blood cell (WBC) count Ordered By: Miguelito Garcia on 01-08-2025 WBC (Bld) [#/Vol] 16.5 10*3/uL High 4.4-11.0 [facility] Bedside Glucoseon 01-07-2025 FINGERSTICK GLU 337 mg/dL High 74-106 [facility] Comment on above: Result Comment: VI FERRERA OF PATIENT CARE PER NURSING PROTOCOL Performed By: #### M 100.3000, M100.2000, M600.2000, M100.4001, M600.2200 #### [facility] [address] [place], [address] Consultation - [place] 01-07-2025 Consultation - Hospitalist [facility] Medical Records Department [address] [place] [address] Consultation - Hospitalist 01/07/251946 MR#: [id number] Acct: [id number] Name: ISA MAYEN Rep #: [id number] : 1960 64 From: Ann Mansfield MD PCP: RICARDO ABRAHAM MD Status:ADM RUDDY Location: [facility] LU456-3 Assessment Plan Assessment/Plan (1) Type 2 diabetes mellitus with diabetic polyneuropathy: QUALIFIERS: Diabetes mellitus shelter insulin use: with shelter use Qualified Code(s): E11.42 - Type 2 diabetes mellitus with diabetic polyneuropathy; Z79.4 - long term care phlebotomist (current) use of insulin PLAN: Plan #Hypertension [...] hypertension, chronic pain and depression presented to [facility] 01/07/25 for a right reverse total shoulder arthroplasty. Hospitalist consulted for postoperative medical management. Patient evaluated bedside. He reports overall his shoulder is feeling fairly well, no shortness of breath, no other new or acute complaints. Does have a diabetic foot ulcer that he reports is chronic, does wound care himself every day and said it slowly healing. [facility] Medical History Difficulty chewing Burn History of [...] Family History Alyson (more content not included)... [facility] MR/POSTOP.ANEon 01-07-2025 MR/POSTOP.ANE [facility] Medical Records Department [address] [place] [address] Anesthesia Postop Eval I 01/07/25 1353 MR#: [id number] Acct: [id number] Name: ISA MAYEN Rep #: [id number] : 1960 64 From: Juanjo Recinos CRNA PCP: RICARDO ABRAHAM MD Status:REG SDC Y Race: C Location: [facility] [id number] Anesthesia: Postop Eval I Current Vital Signs Temperature: 97 F Pulse Rate: 62 Blood Pressure: 106/64 Respiratory Rate: 16 Pulse Ox: 92 Assessment Airway patent: Yes Spontaneous unlabored respirations: Yes nausea: No Vomiting: No Anesthesia Complication: No Fluid Hydration Crystalloid volume administer (ml): 1,500 Total IV fluid infused: 1,500 Progress Note Anesthesia document: Postop Eval 1 completed: Yes 01/07/25 1354 Date Juanjo Grisel INTERNATIONAL SPECIALIST Cosigner Signature: Date CC: Signed [facility] [id number] 01-07-2025 MR/POSTOPAN2 [facility] Medical Records Department [address] [place] [address] Anesthesia Postop Eval II 01/07/25 1521 MR#: [id number] Acct: [id number] Name: ISA MAYEN Rep #: [id number] : 1960 64 From: Ish Chino CRNA PCP: RICARDO ABRAHAM MD Status:ADM RUDDY Y Race: C Location: [place] [id number] Anesthesia Postop Eval I Sum Postop Eval Completion status Anesthesia document: Postop Eval 1 completed: Yes Anesthesia Postop Eval I Summary Anesthesia Postop Eval I Summary: Anesthesia Postop Eval I: Assessment Summary Airway patent Yes 01/07/25 13:53 INTERNATIONAL SPECIALIST.TNES Spontaneous unlabored Yes 01/07/25 13:53 INTERNATIONAL SPECIALIST.TNES respirations Mental status nausea No 01/07/25 13:53 INTERNATIONAL SPECIALIST.TNES Vomiting No 01/07/25 13:53 INTERNATIONAL SPECIALIST.TNES Anesthesia Postop Eval I: Fluid Summary Crystalloid volume administer 1,500 01/07/25 13:53 INTERNATIONAL SPECIALIST.TNES (ml) Colloids volume administered ( ml) Blood Product volume administered (ml) Total IV fluid infused 1,500 01/07/25 13:53 INTERNATIONAL SPECIALIST.TNES Anesthesia Postop Eval I: Summary Notes Anesthesia Complication No 01/07/25 13:53 INTERNATIONAL SPECIALIST.TNES Anesthesia Complication Comment: Post-operative progress note Anesthesia: Postop Eval II Evaluation Mental status: Awake and Calm Pain Level: 2 nausea: No Vomiting: No Complications Anesthesia Complication: No 01/07/25 1521 Date Ish Chino INTERNATIONAL SPECIALIST Cosigner Signature: Date CC: Signed Normal [facility] Operative Reporton 5 Operative Report [facility] Medical Records Department [address] [place] [address] Operative Report 01/07/25 1327 MR#: [id number] Acct: [id number] Name: TIARRAISA A Rep #: [id number] : 1960 64 From: Miguelito Garcia DO PCP: RICARDO ABRAHAM MD [facility] [facility] Location: [place] [address] Operative Report (Standard) Operative Information Date of Procedure: 01/07/25 Pre-Operative Diagnosis: Right shoulder rotator cuff tear arthropathy Post-Operative Diagnosis: Right shoulder rotator cuff tear arthropathy Surgery/Procedure Performed: Right reverse total shoulder arthroplasty community relations rep: Yes Oxygraph Operator: Dianne Walls Tasks completed by refinery operator assistant: Opening closing, Implanting device, Hemostasis: Electrocautery and Retracting Additional merchandising assistant?: No Type of Anesthesia: General/Regional RN [...] No Description of surgery: Patient arrived to [facility] morning of the procedure and was [...] positioned in the beachchair position. A well-padded pile header was applied. The nonoperative extremity was placed [...] to sequential (more content not included)... Normal [facility] Shoulder min 2 Viewson 01-07 Shoulder min 2 Views [facility] Imaging Services [address] [place], [place] [address] Shoulder min 2 Views MR#: [id number] Acct: [id number] Name: ISA MAYEN Rep #: [id number] : 1960 M 64 From: Sebastien Syed MD PCP: RICARDO ABRAHAM MD Status: REG [facility] Study: Shoulder min 2 Views Date of Exam: 01/07/25 Exam# [id number] Ordering Dr: Miguelito Garcia DO PROCEDURE: SHOULDER [...] postoperative appearance following shoulder arthroplasty. Reading Location: [id number] CC: Dr. Miguelito Gracia DO; RICARDO ABRAHAM MD Materials Intern: Signed [facility] 12-31-2024 [facility] Office Visit (ENDMED ) ISA MAYEN ([id number]) 1960 M Date Time Provider Department 12/31/24 [...] lisinopril (ZESTR (more content not included)... Normal [facility] HEMOGLOBIN A1C (POC)on 12-31 HbA1c (Bld) [Mass fraction] 6.1 % Abnormal 4.3 - 5.6 % [facility] Comment on above: Location:[facility], [address] [place], [address] Point of care (POC) Hemoglobin A1c (HGBA1C) [...] specific diabetes management situations: The POC device pediatric urologist provides a normal range of 4.2% to 6.5% for the HGBA1C POC test. However, the [employer] guidelines indicate that patients with [...] Interpretation and review of laboratory results Abnormal [facility] MR/Dionicio 12-31-2024 [facility] Department [address] [place] [address] PAT - Anesthesia 12/31/24 1903 MR#: [id number] Acct: [id number] Name: ISA MAYEN Rep #: [id number] : 1960 64 From: Tony Garcia MD PCP: RICARDO ABRAHAM MD Status:PRE [facility] Y Race: C Location: [facility] Pre-Assessment Diagnosis/Proposed Procedure Planned Operative Procedure(s): (R) RIGHT REVERSE TOTAL SHOULDER ARTHROPLASTY, ERAS 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 - scroll assembler: 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 - scroll assembler Hx Hospitalization No 12/10/24 08:47 Any Problems [...] take am of surgery PONV PONV - scroll assembler: PONV - scroll assembler Female No 12/10/24 08:47 HX of Motion Sickness No 12/10/24 08:47 HX of N/V After Surgery No 12/10/24 08:47 Non-Smoker No 12/10/24 08:47 Duration of Surgery greater Yes 12/10/24 08:47 than 60 minutes Number of Risk Factors 1 12/10/24 08:47 PONV Score Low Risk 12/10/24 08:47 Height Weight Height Weight: Anesthesia: Height Weight Height 6 ft 04/17/24 11:59 Respiratory Assessment Respiratory Assessment - scroll assembler: Respiratory Tract Infection Hx - scroll assembler Hx Respiratory Tract Infection No 12/10/24 08:47 STOP Sleep Apnea STOP Sleep Apnea - scroll assembler: STOP Sleep Apnea - scroll assembler Hx Hypertension Yes 12/10/24 08:47 Hx Sleep [...] Tobacco Use History Tobacco Use History - scroll assembler: Tobacco Use History - scroll assembler Tobacco Use Smoking Status Current some day smoker 12/10/24 08:47 Hx Tobacco Use Yes 12/10/24 08:47 Years Smoking Packs Smoked per Day Smoking Cessation Date was within the last 15 years Hx Smoking Cessation Date Hx Smoking Cessation Yes 12/10/24 08:47 Counseling Hematologic Medial History Hematologic Hx - scroll assembler: 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 - scroll assembler: 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 - scroll assembler Hx Hospitalization No 12/10/24 08:47 Any Problems [...] take am of surgery PONV PONV - scroll assembler: PONV - scroll assembler Female No 12/10/24 08:47 HX of Motion Sickness No 12/10/24 08:47 HX of N/V After Surgery No 12/10/24 08:47 Non-Smoker No 12/10/24 08:47 Duration of Surgery greater Yes 12/10/24 08:47 than 60 minutes Number of Risk Factors 1 12/10/24 08:47 PONV Score Low Risk 12/10/24 08:47 Height Weight Height Weight: Anesthesia: Height Weight Height 6 ft 04/17/24 11:59 Respiratory Assessment Respiratory Assessment - scroll assembler: Respiratory Tract Infection Hx - scroll assembler Hx Respiratory Tract Infection No 12/10/24 08:47 STOP Sleep Apnea STOP Sleep Apnea - scroll assembler: STOP Sleep Apnea - scroll assembler Hx Hypertension Yes 12/10/24 08:47 Hx Sleep [...] Tobacco Use History Tobacco Use History - scroll assembler: Tobacco Use History - scroll assembler Tobacco Use Smoking Status Current some day smoker 12/10/24 08:47 Hx Tobacco Use Yes 12/10/24 08:47 Years Smoking Packs Smoked per Day Smoking Cessation Date was within the last 15 years Hx Smoking Cessation Date Hx Smoking Cessation Yes 12/10/24 08:47 Counseling Hematologic Medial History Hematologic Hx - scroll assembler: 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 Normal [facility] MRSA/SAID NASAL SCREENon MRSA+SAID SCRN Reason for Exam: PRE OP MRSA MRSA Negative S. AUREUS S. aureus Negative Normal [facility] Comment on above: Performed By: #### M 100.3000, M100.2000, M600.2000, M100.4001, M600.2200 #### [facility] [address] [place], [place], [address] Absolute lymphocyte countOrd ered By: Miguelito Garcia on 12-11-2024 Lymphocytes Auto (Unsp spec) [#/Vol] 2.16 10*3/uL 0.83-4.51 [facility] Absolute neutrophil countOrd ered By: Miguelito Garcia on 12-11-2024 Neutrophils (Bld) [#/Vol] 11.1 10*3/uL High 2.0-7.7 [facility] Albumin, Serumon 12-11-2024 Albumin [Mass/Vol] 4.2 g/dL Normal 3.4-4.8 [facility] Comment on above: Performed By: #### M 100.651, L500.2500, L501.1800, L100.0100, L501.9985 #### [facility] [address] [place], [address] Automated lymphocyte count a s percentage of total leukocytesOrdered By: Miguelito Garcia on 12-11-2024 Lymphocytes/100 WBC Auto (Unsp spec) 15.1 % Low 19-41 [facility] Basic Metabolic Profile (BMP )on 12-11-2024 BUN/CRE 13.9 RATIO Normal 10-20 [facility] Comment on above: Performed By: #### M 100.651, L500.2500, L501.1800, L100.0100, L501.9985 #### [facility] [address] [facility]. [place], [place], [address] Calcium [Mass/Vol] 10.2 mg/dL Normal 7.6-11.0 [facility] Comment on above: Performed By: #### M 100.651, L500.2500, L501.1800, L100.0100, L501.9985 #### [facility] [address] [place], [address] Chloride [Moles/Vol] 102 mmol/L Normal 98-108 [facility] Comment on above: Performed By: #### M 100.651, L500.2500, L501.1800, L100.0100, L501.9985 #### [facility] [address] [place], [address] CO2 [Moles/Vol] 21.9 mmol/L Normal 21.0-32.0 [facility] Comment on above: Performed By: #### M 100.651, L500.2500, L501.1800, L100.0100, L501.9985 #### [facility] [address] [place], [address] Creatinine [Mass/Vol] 0.91 mg/dL Normal 0.70-1.20 [facility] Comment on above: Performed By: #### M 100.651, L500.2500, L501.1800, L100.0100, L501.9985 #### [facility] [address] [place], [address] GAP 15 Normal 5-15 [facility] Comment on above: Performed By: #### M 100.651, L500.2500, L501.1800, L100.0100, L501.9985 #### [facility] [address] [place], [address] GFR/1.73 sq M.predicted among non-blacks MDRD (S/P/Bld) [Vol rate/Area] 94 mL/min/{1.73_m2} Normal >60 [facility] Comment on above: Result Comment: mL/m in/1.73m2 CKD-EPI Creatinine Equation (2020) Performed By: #### M 100.651, L500.2500, L501.1800, L100.0100, L501.9985 #### [facility] [address] [place], [address] Glucose [Mass/Vol] 133 mg/dL High 70-99 [facility] Comment on above: Performed By: #### M 100.651, L500.2500, L501.1800, L100.0100, L501.9985 #### [facility] [address] [place], [address] Potassium [Moles/Vol] 4.1 mmol/L Normal 3.3-5.1 [facility] Comment on above: Performed By: #### M 100.651, L500.2500, L501.1800, L100.0100, L501.9985 #### [facility] [address] [place], [address] Sodium [Moles/Vol] 138 mmol/L Normal 133-145 [facility] Comment on above: Performed By: #### M 100.651, L500.2500, L501.1800, L100.0100, L501.9985 #### [facility] [address] [place], [address] Urea nitrogen [Mass/Vol] 13 mg/dL Normal 4-19 [facility] Comment on above: Performed By: #### M 100.651, L500.2500, L501.1800, L100.0100, L501.9985 #### [facility] [address] [place], [address] Basophil percentageOrdered B y: Miguelito Garcia on 12-11-2024 Basophils/100 WBC (Bld) 0.4 % 0-1 [facility] CBC W/Diff, Automatedon Absolute Lymph 2.16 X10 3/uL Normal 0.83-4.51 [facility] Comment on above: Performed By: #### M 100.651, L500.2500, L501.1800, L100.0100, L501.9985 #### [facility] [address] [place], [address] Absolute Neut 11.1 X10 3/uL High 2.0-7.7 [facility] Comment on above: Performed By: #### M 100.651, L500.2500, L501.1800, L100.0100, L501.9985 #### [facility] [address] [place], [address] Basophils/100 WBC (Bld) 0.4 % Normal 0-1 [facility] Comment on above: Performed By: #### M 100.651, L500.2500, L501.1800, L100.0100, L501.9985 #### [facility] [address] [place], [address] Eosinophils/100 WBC (Bld) 0.2 % Normal 0-5 [facility] Comment on above: Performed By: #### M 100.651, L500.2500, L501.1800, L100.0100, L501.9985 #### [facility] [address] [place], [address] Erythrocyte distribution width (RBC) [Ratio] 13.3 % Normal 11.6-14.6 [facility] Comment on above: Performed By: #### M 100.651, L500.2500, L501.1800, L100.0100, L501.9985 #### [facility] [address] [place], [address] Hematocrit (Bld) [Volume fraction] 40.7 % Normal 40-54 [facility] Comment on above: Performed By: #### M 100.651, L500.2500, L501.1800, L100.0100, L501.9985 #### [facility] [address] [place], [address] Hemoglobin (Bld) [Mass/Vol] 14.0 g/dL Normal 13.0-16.5 [facility] Comment on above: Performed By: #### M 100.651, L500.2500, L501.1800, L100.0100, L501.9985 #### [facility] [address] [place], [address] IG% 0.600 Normal 0.0-0.9 [facility] Comment on above: Result Comment: IG% - Immature Granulocytes (promyelocytes, myelocytes and metamyelocytes) > 1% indicates that a LEFT SHIFT is Present. Performed By: #### M 100.651, L500.2500, L501.1800, L100.0100, L501.9985 #### [facility] [address] [place], [address] Lymphocytes/100 WBC (Bld) 15.1 % Low 19-41 [facility] Comment on above: Performed By: #### M 100.651, L500.2500, L501.1800, L100.0100, L501.9985 #### [facility] [address] [place], [address] MCH (RBC) [Entitic mass] 28.7 pg Normal 27.0-32.0 [facility] Comment on above: Performed By: #### M 100.651, L500.2500, L501.1800, L100.0100, L501.9985 #### [facility] [address] [place], [address] MCHC (RBC) [Mass/Vol] 34.4 g/dL Normal 32-36 [facility] Comment on above: Performed By: #### M 100.651, L500.2500, L501.1800, L100.0100, L501.9985 #### [facility] [address] [place], [address] MCV (RBC) [Entitic vol] 83.6 fL Normal 80-94 [facility] Comment on above: Performed By: #### M 100.651, L500.2500, L501.1800, L100.0100, L501.9985 #### [facility] [address] [place], [address] Monocytes/100 WBC (Bld) 6.4 % Normal 0-10 [facility] Comment on above: Performed By: #### M 100.651, L500.2500, L501.1800, L100.0100, L501.9985 #### [facility] [address] [place], [address] Neutrophils/100 WBC (Bld) 77.3 % High 47-70 [facility] Comment on above: Performed By: #### M 100.651, L500.2500, L501.1800, L100.0100, L501.9985 #### [facility] [address] [place], [address] Nucleated RBC (Bld) [#/Vol] 0 10*3/uL Normal 0-5 [facility] Comment on above: Performed By: #### M 100.651, L500.2500, L501.1800, L100.0100, L501.9985 #### [facility] [address] [place], [address] Platelet mean volume (Bld) [Entitic vol] 10.7 fL Normal 6.2-12.0 [facility] Comment on above: Performed By: #### M 100.651, L500.2500, L501.1800, L100.0100, L501.9985 #### [facility] [address] [place], [address] Platelets (Bld) [#/Vol] 223 10*3/uL Normal 150-450 [facility] Comment on above: Performed By: #### M 100.651, L500.2500, L501.1800, L100.0100, L501.9985 #### [facility] [address] [place], [address] RBC (Bld) [#/Vol] 4.87 10*6/uL Normal 4.6-6.2 [facility] Comment on above: Performed By: #### M 100.651, L500.2500, L501.1800, L100.0100, L501.9985 #### [facility] [address] [place], [address] RDW SD 41.1 fl Normal 35.1-43.9 [facility] Comment on above: Performed By: #### M 100.651, L500.2500, L501.1800, L100.0100, L501.9985 #### [facility] [address] [place], [address] WBC (Bld) [#/Vol] 14.3 10*3/uL High 4.4-11.0 [facility] Comment on above: Performed By: #### M 100.651, L500.2500, L501.1800, L100.0100, L501.9985 #### [facility] [address] [place], [address] Eosinophil percentageOrdered By: Miguelito Garcia on 12-11-2024 Eosinophils/100 WBC (Bld) 0.2 % 0-5 [facility] Extremity Upper without Cont raon 12-11-2024 Extremity Upper without Contra [facility] Imaging Services [address] [place] [address] Extremity Upper without Contra MR#: [id number] Acct: [id number] Name: ISA MAYEN Rep #: [id number] : 1960 M 64 From: Meredith Zamora PCP: RICARDO ABRAHAM MD Status: REG CLI Study: Extremity Upper without Contra Date of Exam: 0 12/11/24 Exam# [id number] Ordering Dr: Miguelito Garcia DO PROCEDURE: EXTREMITY [...] 3. Additional findings as noted. Reading Location: [place] [address] CC: Dr. Miguelito Garcia DO; RICARDO ABRAHAM MD Materials Intern: Signed Normal [facility] Hemoglobin A1con 12-11-2024 HbA1c (Bld) [Mass fraction] 6.2 % High <=5.6 [facility] Comment on above: Result Comment: Norm al < 5.7 % Prediabetic 5.7 - 6.4 % Diabetic >or= 6.5 % Please note range changes. Performed By: #### M 100.651, L500.2500, L501.1800, L100.0100, L501.9985 #### [facility] [address] [place], [address] Hemoglobin A1c percentageOrd ered By: Miguelito Garcia on 12-11-2024 HbA1c (Bld) [Mass fraction] 6.2 % High <5.7 [facility] Comment on above: Normal < 5.7 % Predi abetic 5.7 - 6.4 % Diabetic >or= 6.5 % Please note range changes. Immature granulocytes/100 WB C Auto (Bld)Ordered By: Miguelito Garcia on 12-11-2024 Immature granulocytes/100 WBC (Bld) 0.600 % 0.0-0.9 [facility] Comment on above: IG% - Immature Granu locytes (promyelocytes, myelocytes and metamyelocytes) > 1% indicates that a LEFT SHIFT is Present. MRSA screenOrdered By: Jose Garcia on 12-11-2024 MRSA DNA REJI+probe Ql (Unsp spec) [facility] Magnesiumon 12-11-2024 Magnesium [Mass/Vol] 2.1 mg/dL Normal 1.5-2.2 [facility] Comment on above: Performed By: #### M 100.3000, M100.2000, M600.2000, M100.4001, M600.2200 #### [facility] [address] [facility] [address] [place], [address] Magnesium measurement (mass/ volume)Ordered By: Kevin George on 12-11-2024 Magnesium (Unsp spec) [Mass/Vol] 2.1 mg/dL 1.5-2.2 [facility] Monocyte percentageOrdered B y: Miguelito Garcia on 12-11-2024 Monocytes/100 WBC (Bld) 6.4 % 0-10 [facility] Neutrophil percentageOrdered By: Miguelito Garcia on 12-11-2024 Neutrophils/100 WBC (Bld) 77.3 % High 47-70 [facility] Nucleated red blood cell per centageOrdered By: Miguelito Garcia on 12-11-2024 Nucleated RBC/100 WBC (Bld) [Ratio] 0 % 0-5 [facility] Serum or plasma albumin camelia urement (mass/volume)Ordered By: Miguelito Garcia on 12-11-2024 Albumin [Mass/Vol] 4.2 g/dL 3.4-4.8 [facility] Magnetic resonance imaging r eportOrdered By: Gurjit Casas on 11-24-2024 Study report [facility] Imaging Services [address] [place] [address] Upper Ext Joint Only(Routine) MR#: [id number] Acct: [id number] Name: ISA MAYEN Rep #: [id number] : 1960 M 64 From: Venice Casas MD PCP: RICARDO ABRAHAM MD Status: REG CLI Study:Upper Ext Joint Only(Routine) Date of Exam: 11/24/24 Exam# [id number] Ordering Dr: Edu Haynes PA-C PROCEDURE: UPPER [...] CC: MALLORIE Haynes; RICARDO ABRAHAM MD ~ Materials Intern: Signed [facility] Upper Ext Joint Only(Routine )on 11-24-2024 Upper Ext Joint Only(Routine) [facility] Imaging Services [address] [place] [address] Upper Ext Joint Only(Routine) MR#: [id number] Acct: [id number] Name: ISA MAYEN Rep #: [id number] : 1960 64 From: Gurjit Casas MD PCP: RICARDO ABRAHAM MD Status: REG CLI Study: Upper Ext Joint Only(Routine) Date of Exam: 0 11/24/24 Exam# [id number] Ordering Dr: Edu Haynes PA-C PROCEDURE: UPPER [...] IVONNE CC: MALLORIE Haynes; RICARDO ABRAHAM MD Materials Intern: Signed [facility] 07-30-2024 [facility] Telephone (ENDMED) ISA MAYEN ([id number]) 1960 M Date Time Provider Department 07/30/24 SHARLENE ESCOBAR During your visit today, we recorded the following information about you: Naty Sen MA 07/30/2024 1:43 PM Signed Received a request for office notes from [facility] Notes from: 07/02/2024 Faxed via [employer] at [phone] Transmission Successful. Allergies As of Date: 07/30/2024 Noted Allergy Reaction CODEINE 08/06/2008 2 - Rash Comments: RASH METFORMIN 04/05/2014 14 - Other: See Comments Comments: Tongue swelling SEASONAL ALLERGIES 02/06/2011 14 - Other: See Comments Comments: Watery eyes, stuffy nose, sneezing Date Reviewed: 07/02/2024 Reviewed by: Sharlene Escobar APRN.GEAR GRINDING MACHINE OPERATOR - Fully Assessed Reason for Visit: Office Notes [Other] Cmt: [facility] Prescriptions as of 07/30/2024 - insulin degludec [...] capsule by mouth three times daily. - Icsmuggz-Olpttbrix-Rgwpajb HMB (KIRK) 7-7-1.5 gram pwpk Take 1 Each by mouth once daily. - amLODIPine-benazepril (LOTREL) 5-20 mg per capsule - HYDROCHLOROTHIAZIDE 25 MG TAB Take one(1) tablet daily. Problem List As Of Date 07/30/2024 Noted Resolved Essential hypertension [I10] 08/13/2005 OPEN WOUND FINGER W TENDON [S61.209A] 08/13/2005 INJURY DIGITAL NERVE [UIF8742] 08/13/2005 TRIGGER FINGER [M65.30] 08/13/2005 INJURY FINGER [...] Encounter Status:Closed by NATY SEN on 07/30/24 [facility] 07[facility]10-2024 [facility] ISA MAYEN ([id number]) 1960 M Date Time Provider Department 07/10/24 SHARLENE ESCOBAR During your visit today, we recorded the following information about you: Yanet Karimi RN 07/10/2024 12:31 PM Signed Received notification from [facility] that they no longer cover Insulin Glargine [...] Date Reviewed: 07/02/2024 Reviewed by: Sharlene Escobar APRN.GEAR GRINDING MACHINE OPERATOR - Fully Assessed Reason for Visit: Medication [...] capsule by mouth three times daily. - Lbqmzlfc-Dajrzeuwu-Krcfvhx HMB (KIRK) 7-7-1.5 gram pwpk Take 1 Each by mouth once daily. - amLODIPine-benazepril (LOTREL) 5-20 mg per capsule - HYDROCHLOROTHIAZIDE 25 MG TAB Take one(1) tablet daily. Problem List As Of Date 07/10/2024 Noted Resolved Essential hypertension [I10] 08/13/2005 OPEN WOUND FINGER W TENDON [S61.209A] 08/13/2005 INJURY DIGITAL NERVE [FLC2421] 08/13/2005 TRIGGER FINGER [M65.30] 08/13/2005 INJURY FINGER [...] Encounter Status:Closed by SHARLENE ESCOBAR on 07/10/24 [facility] 07-07-2024 [facility] Telephone (JOHNSON) TIARRAISA ([id number]) 1960 M Date Time Provider Department 07/07/24 SHARLENE ESCOBAR During your visit today, we recorded the following information about you: Yanet Karimi RN 07/07/2024 11:55 AM Signed EDU MAYEN (Fried: [id number]) KEVIN Rx #: [id number] Need Help? Call us at Status Sent to Plan today Drug FreeStyle Alonso 2 Sensor Form [employer] Electronic Prior Authorization Request Form (2016 [facility]) Original Claim Info A6 Please abandon this request. This is for a medical supply covered under Part B and member does not have Part B coverage with us Patient notified via [employer]. Closed Allergies As of Date: 07/07/2024 Noted Allergy Reaction CODEINE 08/06/2008 2 - Rash Comments: RASH METFORMIN 04/05/2014 14 - Other: See Comments Comments: Tongue swelling SEASONAL ALLERGIES 02/06/2011 14 - Other: See Comments Comments: Watery eyes, stuffy nose, sneezing Date Reviewed: 07/02/2024 Reviewed by: Sharlene Escobar APRN.GEAR GRINDING MACHINE OPERATOR - Fully Assessed Reason for Visit: PA--FreeStyle Alonos 2 Sensors [Other] Prescriptions as of 07/07/2024 [...] capsule by mouth three times daily. - Dsykvgqx-Edlxvgonp-Yvqnadz HMB (KIRK) 7-7-1.5 gram pwpk Take 1 Each by mouth once daily. - amLODIPine-benazepril (LOTREL) 5-20 mg per capsule - HYDROCHLOROTHIAZIDE 25 MG TAB Take one(1) tablet daily. Problem List As Of Date 07/07/2024 Noted Resolved Essential hypertension [I10] 08/13/2005 OPEN WOUND FINGER W TENDON [S61.209A] 08/13/2005 INJURY DIGITAL NERVE [SLF6062] 08/13/2005 TRIGGER FINGER [M65.30] 08/13/2005 INJURY FINGER [...] Encounter Status:Closed by YANET KARIMI on 07/07/24 [facility] 07-03-2024 [facility] ([facility] ISA MAYEN ([id number]) 1960 M Date Time Provider Department 07/03/24 [...] attachment was sent by alternative means. Payer: [facility] [phone] Attachment: The attachment was sent by alternative means. [id number] Case: [id number] Question Answer Is the request for Expedited [...] PM Message source: PBM Close reason: The timber management professor is not the PA processor for this patient and medication combination. Note from payer: [facility] does not manage prior authorizations for this patient. Please resubmit the ePA request to Kartik. Payer: [employer] [facility] [phone] Waiting for Payer Response 07/02/2024 1:34 PM Sending user: Sharlene Escobar APRN.CNP Payer: [employer] [phone] Faxed last office notes to [facility]. Transmission OK Will await approval/denial Yanet Karimi RN 07/03/2024 4:26 PM Signed Approved Prior authorization approved Payer: [facility] Note from payer: Approved. This drug has [...] to its destination. To be filled at: [facility] - [place] [address] [address] [facility] [phone] Pharmacy Benefits Open Encounter ISA MAYEN - 2024 [employer]Up PBC PDP Retail Super ID (EXPRESS SCRIPTS) Covered: Retail, Mail Order Unknown: Specialty, Long-Term Care BIN: [id number] : 1960 Group ID: [id number] PCN: [id number] Legal sex: M Group name: MYRA [id number] PDP [id number] Address: [address] [place] [address] Closed Allergies As of Date: 07/03/2024 Noted Allergy Reaction CODEINE 08/06/2008 2 - Rash Comments: RASH METFORMIN 04/05/2014 14 - Other: See Comments Comments: Tongue swelling SEASONAL ALLERGIES 02/06/2011 14 - Other: See Comments Comments: Watery eyes, stuffy nose, sneezing Date Reviewed: 07/02/2024 Reviewed by: Sharlene Escobar APRN.GEAR GRINDING MACHINE OPERATOR - Fully Assessed Reason for Visit: PA--Mounjaro [...] 3x pe (more content not included)... Normal [facility] CNOVon 07-02-2024 CNOV Office Visit (ENDMED ) ISA MAYEN ([id number]) 1960 M Date Time Provider Department 07/02/24 1:00 PM SHARLENE ESCOBAR During your visit today, we recorded the following information about you: Pulse Blood pressure Weight 77/minute 144/81 130 kg Sharlene Escobar, DANN.GEAR GRINDING MACHINE OPERATOR 07/02/2024 2:20 PM Signed Reason for Consultation: [...] units daily (more content not included)... Normal [facility] HEMOGLOBIN A1C (POC)on 07-02 HbA1c (Bld) [Mass fraction] 5.9 % Abnormal 4.3 - 5.6 % [facility] Comment on above: Location:[facility], [address] [place] [address], [address] Point of care (POC) Hemoglobin A1c (HGBA1C) [...] specific diabetes management situations: The POC device pediatric urologist provides a normal range of 4.2% to 6.5% for the HGBA1C POC test. However, the [place] Diabetes [employer] guidelines indicate that patients with [...] Interpretation and review of laboratory results Abnormal [facility] Culture, Fungus 8482on 05-20 CUF Comments: Collected in OR - Left Phalanx Is this test to exclude patient from TB Isolation? N _ TESTING PERFORMED AT [facility]. ORIGINAL REPORT ON FILE IN LAB CONTAINS ADDITIONAL TEST SITE INFORMATION. _ CUF No yeast or mold isolated after 4 weeks. [facility] Comment on above: Performed By: #### M 100.3000, M100.1999, M600.1999, M100.4001, M600.2200 #### [facility] [place], [address] Fungus Stain 8136on 05-20-19 FUNST Comments: Collected in OR - Left Phalanx Is this test to exclude patient from TB Isolation? N _ [facility] ORIGINAL REPORT ON FILE IN LAB CONTAINS ADDITIONAL TEST SITE INFORMATION. _ Fungus Stain No fungus observed. [facility] Comment on above: Performed By: #### M 100.3000, M100.1999, M600.1999, M100.4001, M600.0 #### [facility] [address] [place], [address] Culture, Anaerobic Any Sourc rosalind 04-21-2024 CUAN UNK UNK Collected in OR - Left Phalanx No anaerobic bacteria isolated. Normal [facility] Comment on above: Performed By: #### M 100.3000, M100.1999, M600.1999, M100.4001, M600.0 #### [facility] [address] [place], [address] Gram Stainon 04-19-2024 GS UNK UNK Collected in OR - Left Phalanx Gram Stain No organisms seen No cells seen Normal [facility] Comment on above: Performed By: #### M 100.3000, M100.1999, M600.1999, M100.400, M600.0 #### [facility] [address] [place], [address] Wound Cultureon 04-19-2024 WC UNK UNK Collected [...] S Vancomycin Islt ISHA 1 S Normal [facility] Comment on above: Performed By: #### M 100.3000, M100.1999, M600.1999, M100.4001, M600.2200 #### [facility] [address] [place], [address] Bedside Glucoseon 04-17-2024 FINGERSTICK GLU 102 mg/dL Normal 74-106 [facility] Comment on above: Result Comment: VI FERRERA OF PATIENT CARE PER NURSING PROTOCOL Performed By: #### M 100.3000, M100.2000, M600.2000, M100.4001, M600.2200 #### [facility] Sasha [address] [place], [place], [address] Decalcification bone/plaqueo n 04-17-2024 Decalcification bone/plaque -------- Patient Age/Sex Location Account Attending Physician -------- ISA MAYEN 63/[facility] [id number] Dr. Mario Yun DPM -------- Specimen: [id number] Received: 04/17/24 Status: SHAKA Banerjee Num: [id number] Spec Type: Amputation Subm Dr: Dr. Mario Yun, JULIO HEADER OPERATION: Left hallux amputation PRE-OP DIAGNOSIS: Amputation TISSUE SUBMITTED: Left phalanx -------- MICROSCOPIC DIAGNOSIS Left hallux, amputation: Focal ulceration, acute and chronic inflammation and granulation tissue reaction. Bone with minimal chronic inflammation and reactive changes, negative for acute osteomyelitis. [facility] 04/23/2024 MICROSCOPIC DESCRIPTION Slides are reviewed. GROSS DESCRIPTION Received in fixative is one container labeled with the patient's name and designated Left phalanx. The specimen consists of a portion of toe measuring 7.0 x 3.5 x 2.5cm. The skin surface shows ulceration on the plantar surface of the toe measuring 1.5 x 1.5cm. Nail is present and appears unremarkable. Contact Lens Polisher sections are submitted in three cassettes as follows: 1- ulcerated area, 2 3- bone after decalcification. . 04/20/2024 TC:2 [facility]:[id number] -------- Patient Age/Sex Location Account Attending Physician -------- ISA MAYEN 63/M [facility] [id number] Dr. Mario Yun DPM -------- Signed (signature on file) Dr. Juvencio Pike MD 04/23/24 1422 -------- Normal [facility] Comment on above: Performed By: #### M 100.3000, M100.2000, M600.2000, M100.4001, M600.2200 #### [facility] [address] [place], [address] MR/POSTOP.[facility] 04-17-2024 MR/POSTOP.[facility] Medical Records Department [address] [place] [address] Anesthesia Postop Eval I 04/17/241720 MR#: [id number] Acct: [id number] Name: ISA MAYEN Rep #: [id number] : 1960 63 From: Franklin Peck CRNA PCP: RICARDO ABRAHAM MD Status:REG SDC Y Race: C Location: [place] [address] Anesthesia: Postop Eval I Current Vital Signs [...] 1 completed: Yes 04/17/241720 Date Franklin Peck INTERNATIONAL SPECIALIST Cosigner Signature: Date CC: Signed Normal [facility] MR/[id number] 04-17-2024 MR/POSTOPAN2 [facility] Medical Records Department [address] [place] [address] Anesthesia Postop Eval II 04/17/241725 MR#: [id number] Acct: [id number] Name: ISA MAYEN Rep #: [id number] : 1960 63 From: Angelito Bailey MD PCP: RICARDO ABRAHAM MD Status:REG SDC Y Race: C Location: [place] [address] Anesthesia Postop Eval I Sum Postop Eval Completion status Anesthesia document: Postop Eval 1 completed: Yes Anesthesia Postop Eval I Summary Anesthesia Postop Eval I Summary: Anesthesia Postop Eval I: Assessment Summary Airway patent Yes 04/17/24 17:21 INTERNATIONAL SPECIALIST.JBLOU Spontaneous unlabored Yes 04/17/24 17:21 INTERNATIONAL SPECIALIST.JBLOU respirations Mental status Awake,Calm 04/17/24 17:21 INTERNATIONAL SPECIALIST.JBLOU nausea No 04/17/24 17:21 INTERNATIONAL SPECIALIST.JBLOU Vomiting No 04/17/24 17:21 INTERNATIONAL SPECIALIST.JBLOU Anesthesia Postop Eval I: Fluid Summary Crystalloid volume administer 50 04/17/24 17:21 INTERNATIONAL SPECIALIST.JBLOU (ml) Colloids volume administered ( ml) Blood Product volume administered (ml) Total IV fluid infused 50 04/17/24 17:21 INTERNATIONAL SPECIALIST.JBLOU Anesthesia Postop Eval I: Summary Notes Anesthesia Complication No 04/17/24 17:21 INTERNATIONAL SPECIALIST.JBLOU Anesthesia Complication Comment: Post-operative progress note Anesthesia: Postop Eval II Evaluation Mental status: Awake Pain Level: 0 nausea: No Vomiting: No 04/17/241725 Date Angelito Dietz Signature: Date CC: Signed Normal [facility] Operative Reporton 4 Operative Report [facility] Medical Records Department [address] [place] [address] Operative Report 04/17/24 1724 MR#: [id number] Acct: [id number] Name: ISA MAYEN Rep #: [id number] : 1960 63 From: Mario Yun DPM PCP: RICARDO ABRAHAM MD Status:REG [facility] Location: [place] [address] Problems Associated Problem List Diagnoses (1) Non-pressure [...] advacement flap left hallux for defect coverage community relations rep: Yes Oxygraph Operator: naet garcia Tasks completed by refinery operator assistant: Opening, Closing, Altering tissue and Hemostasis: [...] CC: JULIO Yun; RICARDO ABRAHAM MD Signed [facility] MR/PAT.[facility] 04-13-2024 MR/PAT.[facility] Medical Records Department [address] [place] [address] PAT - Anesthesia 04/13/24 1524 MR#: [id number] Acct: [id number] Name: ISA MAYEN Rep #: [id number] : 1960 63 From: Tony Garcia MD PCP: RICARDO ABRAHAM MD Status:PRE [facility] Y Race: C Location: [facility] PAT status Pat Assessment PAT Assessment: PAT Anesthesia Results to Eval 04/13/24 14:48 Pre-Assessment Diagnosis/Proposed Procedure Planned Operative Procedure(s): LEFT HALLUX AMPUTATION 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 - scroll assembler: 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 - scroll assembler Hx Hospitalization No 04/13/24 13:34 Any Problems [...] take am of surgery PONV PONV - scroll assembler: PONV - scroll assembler Female No 04/13/24 13:34 HX of Motion Sickness No 04/13/24 13:34 HX of N/V After Surgery No 04/13/24 13:34 Non-Smoker Yes 04/13/24 13:34 Duration of Surgery greater Yes 04/13/24 13:34 than 60 minutes Number of Risk Factors 2 04/13/24 13:34 PONV Score Moderate Risk 04/13/24 13:34 Height Weight Height Weight: Anesthesia: Height Weight Height 6 ft 07/17/23 16:23 Respiratory Assessment Respiratory Assessment - scroll assembler: Respiratory Tract Infection Hx - scroll assembler Hx Respiratory Tract Infection No 04/13/24 13:34 STOP Sleep Apnea STOP Sleep Apnea - scroll assembler: STOP Sleep Apnea - scroll assembler Hx Hypertension Yes: CONTROLLED WITH MED 04/13/24 [...] Tobacco Use History Tobacco Use History - scroll assembler: Tobacco Use History - scroll assembler Tobacco Use Smoking Status Current some day smoker 04/13/24 13:34 Hx Tobacco Use Yes 04/13/24 13:34 Years Smoking Packs Smoked per Day Smoking Cessation Date was within the last 15 years Hx Smoking Cessation Date Hx Smoking Cessation Yes 04/13/24 13:34 Counseling Hematologic Medial History Hematologic Hx - scroll assembler: 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 [facility] 04-09-2024 [facility] Telephone ([employer]) ISA MAYEN ([id number]) 1960 M Date Time Provider Department 04/09[facility] During your visit today, we recorded the following information about you: Yanet Karimi RN 04/09/2024 12:02 PM Signed EDU MAYEN (Fried: [id number]) KEVIN Rx #: [id number] Need Help? Call us at Status sent iconSent to Plan today Drug FreeStyle Alonso 2 Sensor ePA cloud logo Form [employer] Medicare Part D Electronic Prior Authorization Form (2016 NCPDP) Original Claim Info 70 Bill Medicare B Plan Exclusion Faxed last office notes to [employer]. Will await approval/denial Yanet Karimi RN 04/13/2024 11:55 AM Signed EDU MAYEN (Fried: [id number]) KEVIN Rx #: [id number] Need Help? Call us at Outcome Denied on April 10 by [employer] Medicare 2016 ARPD Request Reference Number: [id number]. FREESTY LIBR KIT 2 SENSOR is denied for not meeting the prior authorization requirement(s). Details of this decision are in the notice attached below or have been faxed to you. Drug FreeStyle Alonso 2 Sensor ePA cloud logo Form [employer] Medicare Part D Electronic Prior Authorization Form (2016 [facility]) Original Claim Info 70 Bill Medicare B [...] Date Reviewed: 12/31/2023 Reviewed by: Sharlene Escobar APRN.GEAR GRINDING MACHINE OPERATOR - Fully Assessed Reason for Visit: KEVIN--FreeStyle [...] IDDM, E11.42 - flash glucose scanning reader (MayomiSTYLE ALONSO 2 READER) Use as instructed to monitor glucose continuously, IDDM, E11.42 - pregabalin (LYRICA) 150 mg capsule Take 1 capsule by mouth three times daily. - Dfropsuh-Eegrvizqt-Rduozeq HMB (KIRK) 7-7-1.5 gram pwpk Take 1 Each by mouth once daily. - amLODIPine-benazepril (LOTREL) 5-20 mg per capsule - HYDROCHLOROTHIAZIDE 25 MG TAB Take one(1) tablet daily. Problem List As Of Date 04/09/2024 Noted Resolved Essential hypertension [I10] 08/13/2005 OPEN WOUND FINGER W TENDON [S61.209A] 08/13/2005 INJURY DIGITAL NERVE [WEW1531] 08/13/2005 TRIGGER FINGER [M65.30] 08/13/2005 INJURY FINGER [...] Status:Closed by YANET KARIMI on 04/13/24 Normal [facility] HEMOGLOBIN A1C (POC)on 12-30 HbA1c (Bld) [Mass fraction] 6.0 % Abnormal 4.3 - 5.6 % [facility] Comment on above: Location:[facility], [address] [place] [address], [facility] Point of care (POC) Hemoglobin A1c (HGBA1C) [...] specific diabetes management situations: The POC device pediatric urologist provides a normal range of 4.2% to 6.5% for the HGBA1C POC test. However, the [place] Diabetes Association guidelines indicate that patients with [...] Interpretation and review of laboratory results Abnormal [facility] AMYLOID TYPING MASS SPECon 0 12-11-2023 AMYLOID TYPING SURGICAL CLINICAL REVIEWER [facility] Comment on above: Order Comment: Speci men Type: TISSUE SPECIMEN Ordering Facility: [facility] Address: [facility] [place] [address] Result Comment: Inte rpretation: LC-MS/MS analysis shows [...] developed and its performance characteristics determined by [facility]'s [facility] Pathology and Laboratory Medicine [place]. It has not been cleared or approved by the FDA. The laboratory is regulated under CLIA as qualified to perform high-complexity testing. This test is used for clinical purposes. It should not be regarded as investigational or for research. Laboratory Developed Test (LDT) Disclaimer: Performance characteristics of immunohistochemical, immunofluorescent and chromogenic in-situ hybridization tests have been determined by the performing laboratory within [facility]???s [facility] Pathology and Laboratory Medicine Department ([facility], [facility], [facility], [facility], [facility], [facility], or [facility]) in a manner consistent with CLIA requirements. [...] MD, PhD Performed By: #### S #### [facility] CLIA [id number] [address] [facility] [place], [place] [id number] [place] [address] STATES OF [facility] CLIA [id number] [address] [place] [id number] [facility] #### [id number] #### [facility] CLIA [id number] [address] [place] [id number] [facility] ANES POSTPROC EVALon 024 ANES POSTPROC EVAL HNO ID: [id number] Author: CHALINO ESPINO DO Service: Anesthesiology Author Type: Anesthesiologist Type: Anesthesia Postprocedure Evaluation Filed: 12/11/2023 13:40 Note Text: POST ANESTHESIA EVALUATION NOTE : 1960 Procedure Summary Date: 12/11/23 Room / Location: HI OR / HI OR Anesthesia Start: 1221 Anesthesia Stop: 1331 [...] December 11, 2023 TIME: 1:39 PM CSN: [id number] [facility] ANES PRE-OPon 12-11-2023 ANES PRE-OP HNO ID: [id number] Author: SHAYY, CHALINO, DO Service: Anesthesiology Author Type: Anesthesiologist Type: Anesthesia Preprocedure Evaluation Filed: 12/11/2023 11:36 Note Text: ANESTHESIOLOGY DAY OF SURGERY NOTE : 1960 Procedure Information Date/Time: 12/11/23 1206 Procedure: DECOMPRESSION NERVE MEDIAN CARPAL TUNNEL (Bilateral: Wrist) Location: HI OR05 / [place] OR Surgeons: Reji Mansfield MD Estimated body [...] and consent discussed: yes. Patient / Responsible Democrat agrees to proceed: yes Patient / Surrogate [...] IDDM, E 11.42 Blood-Glucose Meter,Continuous (DEXCOM G6 ACTUARIAL ANALYST) misc Use continuously to monitor glucose, IDDM, [...] instructed to monitor glucose continuously, IDDM, E11.42 Viwxduos-Qifmipjpl-Vcweken HMB (KIRK) 7-7-1.5 gram pwpk Take 1 Each by mouth once daily. I have interviewed and examined the patient. I have reviewed the medical record and/or the pre-anesthesia evaluation, pertinent labs, and test results. This contains updated information obtained within 48 hours of Surgery/Procedure. SIGNATURE: Chalino Espino DO PATIENT NAME: Isa Mayen DATE: December 11, 2023 TIME: 11:36 AM CSN: [id number] Normal [facility] GLUCOSE, BLOOD (POC)on 12-10 Glucose [Mass/Vol] 104 mg/dL Abnormal 74 - 99 mg/dL [facility] Comment on above: Location:[facility], [address] [place] [address], [facility] The Accu-Chek Inform II glucose meter [...] Interpretation and review of laboratory results Abnormal [facility] Glucose [Mass/Vol] 80 mg/dL 74 - 99 mg/dL [facility] Comment on above: Location:[facility], [address] [place] [address], [facility] The Accu-Chek Inform II glucose meter [...] blood gas instrument) in the above situations. [facility] OPERATIVE NOon 12-11-2023 OPERATIVE NO HNO ID: [id number] Author: REJI MANSFIELD MD Service: Orthopaedic Surgery Author Type: Physician Type: Operative Report Filed: 12/11/2023 13:29 Note Text: OPERATIVE/PROCEDURE REPORT LOG ID: [id number] SURGERY/PROCEDURE DATE: 12/11/2023 INCISION/PROCEDURE START TIME: 12:44 PM INCISION CLOSE/PROCEDURE END TIME: 1:21 PM SURGEON(S)/PROCEDURALIST(S) AND TEXTILE BAG SEWER(S): Surgeon(s) and Role: * Reji Mansfield MD - Primary Physician Contract Driver: Paula Kohli PA-C; Melissa Green PA-C Registered Nurse Oxygraph Operator: Gill Steve RN SURGERY/PROCEDURE(S): Bilateral carpal tunnel [...] resistance. Subsequently, I selected a mini meniscotome Robinson blade and slid this in the protective guide, completely dividing the transverse carpal ligament. Delgado rakes were used to view up the wound to visualize for complete release and a [place] elevator was used to palpate for complete [...] condition. Pre-O (more content not included)... Normal [facility] SURGICAL PATHOLOGYon 024 CASE REPORT [facility] Comment on above: Order Comment: Speci men Type: TISSUE SPECIMEN Ordering Facility: [facility] Address: [address] [place] [address] Result Comment: Surg ica Pathology Report Case: [id number] Authorizing Provider: Reji Mansfield MD Collected: 12/11/2023 01:16 PM Ordering Location: [facility] Surgery Received: 12/11/2023 03:15 PM Pathologist: Jonah Hernandez MD Specimen: Synovium, left hand for congo red Performed By: #### S #### [facility] CLIA [id number] [address] [place] [address] [place] [facility] CLIA [id number] [address] [place] [address] [place] #### [id number] #### [facility] CLIA [id number] [address] [place] [address] [place] CLINICAL HISTORY Normal [facility] Comment on above: Order Comment: Speci men Type: TISSUE SPECIMEN Ordering Facility: [facility] Address: [address] [place] [address] Result Comment: Pre- op diagnosis: Bilateral carpal tunnel syndrome [G56.03] Performed By: #### S #### [facility] CLIA [id number] [address] [place] [address] [place] [facility] CLIA [id number] [address] [place] [address] [place] #### [id number] #### [facility] CLIA [id number] [address] [place] [address] [place] DIAGNOSIS COMMENT The results of amylo id subtyping by mass spectrometry will be reported separately. [facility] Comment on above: Order Comment: Speci men Type: TISSUE SPECIMEN Ordering Facility: [facility] Address: [address] [place] [address] Performed By: #### S #### [facility] CLIA [id number] [address] [place] [address] [place] STATES OF [facility] CLIA [id number] [facility] [place] [address] [place] #### [id number] #### [facility] CLIA [id number] [address] [place] [address] OF [facility] FINAL DIAGNOSIS [facility] Comment on above: Order Comment: Speci men Type: TISSUE SPECIMEN Ordering Facility: [facility] Address: [address] [place] [address] Result Comment: Brandy felton, biopsy: - Tenosynovium with diminutive amyloid deposits. See comment. - A Congo red stain highlights the small amyloid deposits. Performed By: #### S #### [facility] CLIA [id number] [address] [place] [address] [place] [facility] CLIA [id number] [address] [place] [address] [place] #### [id number] #### [facility] CLIA [id number] [address] [place], [place] [id number] [place] FINAL PERFORMING LAB [facility] Comment on above: Order Comment: Speci men Type: TISSUE SPECIMEN Ordering Facility: [facility] Address: [address] [place] [address] Result Comment: Diag nostic interpretation performed at [facility], [address] [place], [place] [id number] CLIA# [id number] Mangle Catcher: Bowen Lindsay M.D. Performed By: #### S #### [facility] CLIA [id number] [address] [place] [address] [place] [facility] CLIA [id number] [address] [place] [address] [place] #### [id number] #### [facility] CLIA [id number] [address] [place] [address] [place] GROSS DESCRIPTION A. Synovium Normal [facility] Comment on above: Order Comment: Speci men Type: TISSUE SPECIMEN Ordering Facility: [facility] Address: [address] [place] [address] Result Comment: Rece ived in formalin labeled synovium, left hand is a single fragment of soft pink-coello tissue measuring 2.1 x 0.4 x 0.2 cm. The cut surface is coello-pink and soft. Specimen is totally submitted in cassette A1. MBB/MLG December 12, 2023 9:16 AM [place] [address] Performed By: #### S #### [facility] CLIA [id number] [address] [place] [address] [place] [facility] CLIA [id number] [address] [place] [address] [place] #### [id number] #### [facility] CLIA [id number] [address] [place] [address] [place] PT EDon 11-29-2023 PT ED HNO ID: [id number] Author: YANET MCCLENDON PA-C Service: General Surgery Author Type: Physician Contract Driver Type: Patient Education Filed: 11/29/2023 16:44 Note [...] has a PAT appointment next week in [place] and was advised he would receive further instructions for any additional pre-operative medication management at that time. Patient also informed to reach out to his surgeon's office if he had any further questions orconcerns. He verbalized understanding. SIGNATURE: Yanet Mcclendon PA-C PATIENT NAME: Isa Mayen DATE: November 29, 2023 [facility] EMG(NEURO/NI)on 08-09-2023 [facility] Basophil percentageOrdered B y: Luis A Adkins on 07-18-2023 Chloride [Moles/Vol] 108 mmol/L 98-107 [facility] Glucose [Mass/Vol] 239 mg/dL 74-106 [facility] Comment on above: Glucose result great er than or equal to 200 mg/dLsuggests DIABETES MELLITUS per A.D.A. criteria. Hemoglobin (Bld) [Mass/Vol] 12.3 g/dL 13.0-16.5 [facility] Potassium [Moles/Vol] 4.1 mmol/L 3.5-5.1 [facility] Sodium [Moles/Vol] 140 mmol/L 136-145 [facility] WBC (Bld) [#/Vol] 17.4 10*3/uL 4.4-11.0 [facility] Determination of erythrocyte mean corpuscular volume (MCV)Ordered By: Luis A Adkins on 07-18-2023 MCV (RBC) [Entitic vol] 84.2 fL 80-94 [facility] Erythrocyte distribution wid th ratioOrdered By: Luis A Adkins on 07-18-2023 Erythrocyte distribution width (RBC) [Ratio] 13.6 % 11.6-14.6 [facility] Erythrocyte distribution wid th standard deviationOrdered By: Luis A Adkins on 07-18-2023 Erythrocyte distribution width (RBC) [Entitic vol] 41.8 fL 35.1-43.9 [facility] Hematocrit Auto (Bld) [Volum e fraction]Ordered By: Luis A Adkins on 07-18-2023 Hematocrit (Bld) [Volume fraction] 35.7 % 40-54 [facility] Laboratory - Chemistry and C hemistry - challengeOrdered By: Luis A Adkins on 07-18-2023 CO2 [Moles/Vol] 23.0 mmol/L 21.0-32.0 [facility] Urea nitrogen/Creatinine [Mass ratio] 23.8 mg/mg 10-20 [facility] Laboratory - Hematology and Cell countsOrdered By: Luis A Adkins on 07-18-2023 MCH (RBC) [Entitic mass] 29.0 pg 27.0-32.0 [facility] MCHC (RBC) [Mass/Vol] 34.5 g/dL 32-36 [facility] Platelet mean volume (Bld) [Entitic vol] 11.4 fL 6.2-12.0 [facility] Platelets (Bld) [#/Vol] 162 10*3/uL 150-450 [facility] No Panel InformationOrdered By: Luis A Adkins on 07-18-2023 Estimated Creatinine Clearance Calc 113.87 ml/min [facility] Estimated GFR (MDRD) Amer 96 mL/min >60 [facility] Comment on above: GFR Calc Estimated GFR (MDRD) Non-Af Amer 79 mL/min >60 [facility] Comment on above: Non- GFR Calc RBC Auto (Bld) [#/Vol]Ordere d By: Luis A Adkins on 07-18-2023 RBC (Bld) [#/Vol] 4.24 10*6/uL 4.6-6.2 [facility] Serum or plasma calcium camleia urement (mass/volume)Ordered By: Luis A Adkins on 07-18-2023 Calcium [Mass/Vol] 9.2 mg/dL 8.5-10.1 [facility] Serum or plasma creatinine m easurement (mass/volume)Ordered By: Luis A Adkins on 07-18-2023 Creatinine [Mass/Vol] 1.01 mg/dL 0.70-1.30 [facility] Comment on above: The validity of the calculated GFR & GFRAA in patients over 70 years has not been determined. Clinical correlation is essential. Serum or plasma urea nitroge n measurement (mass/volume)Ordered By: Luis A Adkins on 07-18-2023 Urea nitrogen [Mass/Vol] 24 mg/dL 7-18 [facility] Thin prep Papanicolaou smear with manual screeningOrdered By: Luis A Adkins on 07-18-2023 Thin prep Papanicolaou smear with manual screening 257 mg/dL 74-106 [facility] Comment on above: MANAGEMENT OF PATIEN T CARE PER NURSING PROTOCOL Thin prep Papanicolaou smear with manual screening 9 5-15 [facility] Bilirubin Test strip Ql (U)O rdered By: Luis A Adkins on 07-05-2023 Bilirubin Ql (U) Negative Negative [facility] Culture, urineOrdered By: St nilo Adkins on 07-05-2023 Bacteria identified Cx Nom (U) Culture exhibits no growth. [facility] Ketones Test strip Ql (U)Ord ered By: Luis A Adkins on 07-05-2023 Ketones Ql (U) Negative Negative [facility] Nitrite Test strip Ql (U)Ord ered By: Luis A Adkins on 07-05-2023 Nitrite Ql (U) Negative Negative [facility] Protein Test strip Ql (U)Ord ered By: Luis A Adkins on 07-05-2023 Protein Ql (U) Negative Negative [facility] Urine blood detectionOrdered By: Luis A Adkins on 07-05-2023 RBC Ql (U) Negative Negative [facility] Urine clarityOrdered By: James Adkins on 07-05-2023 Clarity (U) Clear Clear [facility] Urine color determinationOrd ered By: Luis A Adkins on 07-05-2023 Color (U) Yellow Yellow [facility] Urine glucose detectionOrder ed By: Luis A Adkins on 07-05-2023 Glucose Ql (U) Normal mg/dl Normal [facility] Urine leukocyte esterase det ection by dipstickOrdered By: Luis A Adkins on 07-05-2023 Leukocyte esterase Test strip Ql (U) Negative Negative [facility] Urine pHOrdered By: Luis A toure on 07-05-2023 pH (U) 5.0 [pH] 5.0 - 8.0 [facility] Urine specific gravity measu rementOrdered By: Luis A Adkins on 07-05-2023 Specific gravity (U) [Rel density] 1.020 1.002-1.03 0 [facility] Urine urobilinogen measureme ntOrdered By: Luis A Adkins on 07-05-2023 Urobilinogen Ql (U) Normal mg/dl Normal [facility] Absolute lymphocyte countOrd ered By: Luis A Adkins on 07-02-2023 Lymphocytes Auto (Unsp spec) [#/Vol] 3.44 10*3/uL 0.83-4.51 [facility] Automated lymphocyte count a s percentage of total leukocytesOrdered By: Luis A Adkins on 07-02-2023 Lymphocytes/100 WBC Auto (Unsp spec) 22.6 % 19-41 [facility] Basophil percentageOrdered B y: Luis A Adkins on 07-02-2023 Basophils/100 WBC (Bld) 0.6 % 0-1 [facility] Eosinophils/100 WBC (Bld) 1.9 % 0-5 [facility] Monocytes/100 WBC (Bld) 9.1 % 0-10 [facility] Neutrophils (Bld) [#/Vol] 9.9 10*3/uL 2.0-7.7 [facility] Neutrophils/100 WBC (Bld) 65.1 % 47-70 [facility] Immature granulocytes/100 WB C Auto (Bld)Ordered By: Luis A Adkins on 07-02-2023 Immature granulocytes/100 WBC (Bld) 0.700 % 0.0-0.9 [facility] Comment on above: IG% - Immature Granu locytes (promyelocytes, myelocytes and metamyelocytes) > 1% indicates that a LEFT SHIFT is Present. Laboratory - Chemistry and C hemistry - challengeOrdered By: Kevin George on 07-02-2023 Magnesium [Mass/Vol] 2.2 mg/dL 1.6-2.6 [facility] Laboratory - Hematology and Cell countsOrdered By: Luis A Adkins on 07-02-2023 Nucleated RBC/100 WBC (Bld) [Ratio] 0 % 0-5 [facility] No Panel InformationOrdered By: Luis A Adkins on 07-02-2023 Nasal Screen MRSA/MSSA [place] Thin prep Papanicolaou smear with manual screeningOrdered By: Luis A Adkins on 07-02-2023 Thin prep Papanicolaou smear with manual screening 4.1 g/dL 3.2-5.0 [facility] Whole blood hemoglobin A1c/t otal hemoglobin ratio (mass fraction)Ordered By: Luis A Adkins on 07-02-2023 HbA1c (Bld) [Mass fraction] 6.3 % 3.8-5.6 [facility] Comment on above: Normal < 5.7 % Predi abetic 5.7 - 6.4 % Diabetic >or= 6.5 % Please note range changes. 25(OH)D3 [facility] 2022 25-hydroxyvitamin D3 [Mass/Vol] 13.8 ng/mL Low 31.0-80.0 [facility] Comment on above: Order Comment: Speci meagan Type: BLOOD SPECIMEN Ordering Facility: [facility] Address: [address] [place] [address] Result Comment: Clas sification of 25 [place] Vitamin D status: Deficiency/Insufficiency: < or = 30 ng/ml. Sufficiency/Optimal Levels: 31-80 ng/mL Toxicity: > 100 ng/mL. Test performed by chemiluminescent immunoassay. Performed By: #### 1 989-3 #### [facility] CLIA [id number] [address] [place] [address] [place] ALBUMIN/CREAT RATIO RND URon 04-24-2023 Albumin DL <= 20 mg/L (U) [Mass/Vol] 131.9 mg/L Normal [facility] Comment on above: Order Comment: Speci men Type: TISSUE SPECIMEN Ordering Facility: [facility] Address: [address] [place] [address] Performed By: #### S #### [facility] CLIA [id number] [address] [place] [address] [place] [facility] CLIA [id number] [address] [place] [address] [place] #### [id number] #### [facility] CLIA [id number] [address] [place] [address] [place] Albumin/Creatinine (U) [Mass ratio] 64 mg/g High <30 [facility] Comment on above: Order Comment: Speci men Type: TISSUE SPECIMEN Ordering Facility: [facility] Address: [address] [place] [address] Result Comment: Adul t Male and Female Nephrotic Criteria: <30 mg/g is considered normal to mildly increased 30-300 mg/g is considered moderately increased >300 mg/g is considered severely increased KDIGO. (2013). KDIGO 2012 Clinical Practice Guideline for the Evaluation and Management of Chronic Kidney Disease. Official Journal of the International Society of Nephrology, 3(1), 1-150. Performed By: #### S #### [facility] CLIA [id number] [address] [place] [address] [place] [facility] CLIA [id number] [address] [place] [address] [place] #### [id number] #### [facility] CLIA [id number] [address] [place] [address] [place] Creatinine (U) [Mass/Vol] 206.5 mg/dL Normal 20.0-300.0 [facility] Comment on above: Order Comment: Speci men Type: TISSUE SPECIMEN Ordering Facility: [facility] Address: [address] [place] [address] Performed By: #### S #### [facility] CLIA [id number] [address] [place] [address] [place] [facility] CLIA [id number] [address] [place] [address] [place] #### [id number] #### [facility] CLIA [id number] [address] [place] [address] [place] Comprehensive metabolic 2000 panelon 04-24-2023 Albumin [Mass/Vol] 4.6 g/dL Normal 3.9-4.9 [facility] Comment on above: Order Comment: Speci men Type: BLOOD SPECIMEN Ordering Facility: [facility] Address: [address] [place] [address] Performed By: #### 2 4331-1, 69326-5, 3015-3 #### [facility] CLIA [id number] [address] [place] [address] [place] ALP [Catalytic activity/Vol] 72 U/L Normal 38-113 [facility] Comment on above: Order Comment: Speci men Type: BLOOD SPECIMEN Ordering Facility: [facility] Address: [address] [place] [address] Performed By: #### 2 4331-1, 29113-7, 3 #### [facility] CLIA [id number] [address] [place] [address] [place] ALT [Catalytic activity/Vol] 24 U/L Normal 10-54 [facility] Comment on above: Order Comment: Speci men Type: BLOOD SPECIMEN Ordering Facility: [facility] Address: [address] [place] [address] Performed By: #### 2 4331-1, 82101-8, 3 #### [facility] CLIA [id number] [address] [place] [address] [place] Anion gap [Moles/Vol] 15 mmol/L Normal 9-18 [facility] Comment on above: Order Comment: Speci men Type: BLOOD SPECIMEN Ordering Facility: [facility] Address: [address] [place] [address] Performed By: #### 2 4331-1, 81302-3, 3 #### [facility] CLIA [id number] [address] [place] [address] [place] AST [Catalytic activity/Vol] 29 U/L Normal 14-40 [facility] Comment on above: Order Comment: Speci men Type: BLOOD SPECIMEN Ordering Facility: [facility] Address: [address] [place] [address] Performed By: #### 2 4331-1, 39665-1, 3015-3 #### [facility] CLIA [id number] [address] [place] [address] [place] Bilirubin [Mass/Vol] 0.4 mg/dL Normal 0.2-1.3 [facility] Comment on above: Order Comment: Speci men Type: BLOOD SPECIMEN Ordering Facility: [facility] Address: [address] [place] [address] Performed By: #### 2 4331-1, 70140-7, 3015-3 #### [facility] CLIA [id number] [address] [place] [address] [place] Calcium [Mass/Vol] 9.9 mg/dL Normal 8.5-10.2 [facility] Comment on above: Order Comment: Speci men Type: BLOOD SPECIMEN Ordering Facility: [facility] Address: [address] [place] [address] Performed By: #### 2 4331-1, 03924-3, 3 #### [facility] CLIA [id number] [address] [place] [address] [place] Chloride [Moles/Vol] 104 mmol/L Normal 97-105 [facility] Comment on above: Order Comment: Speci men Type: BLOOD SPECIMEN Ordering Facility: [facility] Address: [address] [place] [address] Performed By: #### 2 4331-1, 50377-0, 3 #### [facility] CLIA [id number] [address] [place] [address] [place] CO2 [Moles/Vol] 24 mmol/L Normal 22-30 [facility] Comment on above: Order Comment: Speci men Type: BLOOD SPECIMEN Ordering Facility: [facility] Address: [address] [place] [address] Performed By: #### 2 4331-1, 69756-1, 3015-3 #### [facility] CLIA [id number] [address] [place] [address] [place] Creatinine [Mass/Vol] 1.41 mg/dL High 0.73-1.22 [facility] Comment on above: Order Comment: Speci men Type: BLOOD SPECIMEN Ordering Facility: [facility] Address: [address] [place] [address] Performed By: #### 2 4331-1, 03276-2, 3015-3 #### [facility] CLIA [id number] [address] Creatinine and Glomerular filtration rate.predicted panel (S/P/Bld) 56 mL/min/1.73m??? Low >=60 [facility] Comment on above: Order Comment: Gopi rhodes Type: BLOOD SPECIMEN Ordering Facility: [facility] Address: [address] [place] [address] Result Comment: Debbie mated Glomerular Filtration Rate [...] actual GFR. Performed By: #### 2 4331-1, 51043-2, 3 #### [facility] CLIA [id number] [address] Glucose [Mass/Vol] 77 mg/dL Normal 74-99 [facility] Comment on above: Order Comment: Gopi rhodes Type: BLOOD SPECIMEN Ordering Facility: [facility] Address: [address] [place] [address] Result Comment: The [place] Diabetes Association (ADA) provides guidance for cutoff [...] Standards of Medical Care in Diabetes 2016, [place] Diabetes Association. Diabetes Care. 2016.39(Suppl 1). Performed By: #### 2 4331-1, 53475-6, 3015-3 #### [facility] CLIA [id number] [address] [place] [address] [place] Potassium [Moles/Vol] 3.8 mmol/L Normal 3.7-5.1 [facility] Comment on above: Order Comment: Speci men Type: BLOOD SPECIMEN Ordering Facility: [facility] Address: [address] [place] [address] Performed By: #### 2 4331-1, 69651-0, 6-3 #### [facility] CLIA [id number] [address] [place] [address] [place] Protein [Mass/Vol] 7.7 g/dL Normal 6.3-8.0 [facility] Comment on above: Order Comment: Speci men Type: BLOOD SPECIMEN Ordering Facility: [facility] Address: [address] [place] [address] Performed By: #### 2 4331-1, 07946-9, 3015-3 #### [facility] CLIA [id number] [address] [place] Sodium [Moles/Vol] 143 mmol/L Normal 136-144 [facility] Comment on above: Order Comment: Speci men Type: BLOOD SPECIMEN Ordering Facility: [facility] Address: [address] [place] [address] Performed By: #### 2 4331-1, 12273-2, 3015-3 #### [facility] CLIA [id number] [address] [place] [address] [place] Urea nitrogen [Mass/Vol] 24 mg/dL Normal 9-24 [facility] Comment on above: Order Comment: Speci men Type: BLOOD SPECIMEN Ordering Facility: [facility] Address: [address] [place] [address] Performed By: #### 2 4331-1, 51188-9, 6-3 #### [facility] CLIA [id number] [address] [place] [address] [place] HbA1c (Bld)on 04-24-2023 Average glucose Estimated from glycated hemoglobin (Bld) [Mass/Vol] 128 mg/dL Normal [facility] Comment on above: Order Comment: Speci men Type: TISSUE SPECIMEN Ordering Facility: [facility] Address: [address] [place] [id number] Result Comment: eAG: (Estimated average glucose) is a calculated value from HgbA1c and is sales representative electric service of the average blood glucose level in the last 2-3 month period. Performed By: #### S #### [facility] CLIA [id number] [address] [facility] [place] [address] [place] [facility] CLIA [id number] [address] [place] [address] [place] #### [id number] #### [facility] CLIA [id number] [address] [place] [address] [place] HbA1c (Bld) [Mass fraction] 6.1 % High 4.3-5.6 [facility] Comment on above: Order Comment: Speci men Type: TISSUE SPECIMEN Ordering Facility: [facility] Address: [address] [place] [address] Result Comment: [place] Diabetes Association guidelines indicate that patients with HgbA1c in the range 5.7-6.4% are at increased risk for development of diabetes, and intervention by lifestyle modification may be beneficial. HgbA1c greater or equal to 6.5% is considered diagnostic of diabetes. Performed By: #### S #### [facility] CLIA [id number] [address] [facility] [place] [address] [place] [facility] CLIA [id number] [address] [place] [address] [place] #### [id number] #### [facility] CLIA [id number] [address] [address] [place] Lipid 1996 panelon 3 Cholesterol [Mass/Vol] 189 mg/dL Normal <200 [facility] Comment on above: Order Comment: Speci men Type: BLOOD SPECIMEN Ordering Facility: [facility] Address: [address] [place] [address] Result Comment: <200 mg/dL, Desirable 200-239 mg/dL, Borderline high >239 mg/dL, High Performed By: #### 2 7771-1, 44556-2, 3015-3 #### [facility] CLIA [id number] [address] Cholesterol in HDL [Mass/Vol] 39 mg/dL Low >39 [facility] Comment on above: Order Comment: Gopi meagan Type: BLOOD SPECIMEN Ordering Facility: [facility] Address: [address] [place] [address] Result Comment: 40-5 9 mg/dL, Acceptable >59 mg/dL, High: Negative risk factor for coronary heart disease <40 mg/dL, Low: Positive risk factor for coronary heart disease Performed By: #### 2 4331-1, 54378-0, 3 #### [facility] CLIA [id number] [address] Cholesterol in LDL [Mass/Vol] 112 mg/dL High <100 [facility] Comment on above: Order Comment: Gopi [facility] Type: BLOOD SPECIMEN Ordering Facility: [facility] Address: [address] [place] [address] Result Comment: <100 mg/dL, Optimal 100-129 mg/dL, Near optimal/above optimal 130-159 mg/dL, Borderline high 160-189 mg/dL, High >189 mg/dL, Very high Secondary prevention optimal LDL Cholesterol levels are recommended to be < 70 mg/dL Performed By: #### 2 4331-1, 34910-6, 3015-3 #### [facility] CLIA [id number] [address] Cholesterol in LDL/Cholesterol in HDL [Mass ratio] 2.87 {ratio} High <2.54 [facility] Comment on above: Order Comment: [facility] Type: BLOOD SPECIMEN Ordering Facility: [facility] Address: [address] [place] [address] Result Comment: Refe rence: 1. National Cholesterol Education Program ATP III Guideline At-A-Glance Quick Desk Reference: National Heart, Lung, and Blood [place]. National Institutes of Health. 2001: NIH Publication No. 01-3305. 2. An International Atherosclerosis Society position paper: global recommendations for the management of dyslipidemia: executive summary, Atherosclerosis. 2014: 232(2):410-413. Performed By: #### 2 4331-1, 30788-7, 3015-3 #### [facility] CLIA [id number] [address] [place] [address] [place] Cholesterol in VLDL [Mass/Vol] 38 mg/dL High <30 [facility] Comment on above: Order Comment: Speci men Type: BLOOD SPECIMEN Ordering Facility: [facility] Address: [address] [place] [address] Performed By: #### 2 4331-1, 92318-0, 3015-3 #### [facility] CLIA [id number] [address] [place] [address] [place] Cholesterol non HDL [Mass/Vol] 150 mg/dL High <130 [facility] Comment on above: Order Comment: Speci men Type: BLOOD SPECIMEN Ordering Facility: [facility] Address: [address] [place] [address] Result Comment: <130 mg/dL, Optimal 130-159 mg/dL, Near optimal/above optimal 160-189 mg/dL, Borderline high 190-219 mg/dL, High >219 mg/dL, Very high Secondary prevention optimal non HDL Cholesterol levels are recommended to be <100 mg/dL Performed By: #### 2 4331-1, 14540-8, 3015-3 #### [facility] CLIA [id number] [address] [place] [address] [place] Cholesterol.total/Chol esterol in HDL [Mass ratio] 4.85 {ratio} Normal <5.10 [facility] Comment on above: Order Comment: Speci men Type: BLOOD SPECIMEN Ordering Facility: [facility] Address: [address] [place] [address] Performed By: #### 2 4331-1, 75989-8, 3015-3 #### [facility] CLIA [id number] [address] [place] FASTING TIME 12 hrs Normal [facility] Comment on above: Order Comment: Speci men Type: BLOOD SPECIMEN Ordering Facility: [facility] Address: [address] [place] [address] Performed By: #### 2 4331-1, 53796-1, 3015-3 #### [facility] CLIA [id number] [address] [place] [address] [place] Triglyceride [Mass/Vol] 190 mg/dL High <150 [facility] Comment on above: Order Comment: Speci men Type: BLOOD SPECIMEN Ordering Facility: [facility] Address: [address] [place] [address] Result Comment: <150 mg/dL, Normal 150-199 mg/dL, Borderline high 200-499 mg/dL, High >499 mg/dL, Very high Performed By: #### 2 4331-1, 39526-6, 6-3 #### [facility] CLIA [id number] [address] [place] [address] [place] TSH SerPl-aCncon 04-24-2023 TSH Qn 4.730 m[IU]/L High 0.270-4.20 0 [facility] Comment on above: Order Comment: Speci men Type: BLOOD SPECIMEN Ordering Facility: [facility] Address: [address] [place] [address] Performed By: #### 2 4331-1, 78321-8, 3 #### [facility] CLIA [id number] [address] [facility] Anaerobic cultureOrdered By: Mraio Yun on 01-11-2023 Bacteria identified Anaer cx Nom (Unsp spec) No anaerobic bacteria isolated. [facility] Bacteria identified Cx Nom ( Wound)Ordered By: Mario Yun on 01-11-2023 Wound Culture Enterobacter cloacae complex [facility] Wound Culture Proteus mirabilis [facility] Wound Culture Staphylococcus aureus [facility] Wound Culture Enterococcus faecalis [facility] Gram stain for investigation of transfusion reactionOrdered By: Mario Yun on 01-11-2023 Microscopic observation Gram stain Nom (Unsp spec) [facility] Anaerobic cultureOrdered By: Mario Yun on 01-10-2023 Bacteria identified Anaer cx Nom (Unsp spec) No anaerobic bacteria isolated. [facility] Bacteria identified Cx Nom ( Wound)Ordered By: Mario Yun on 01-10-2023 Wound Culture Enterobacter cloacae complex [facility] Wound Culture Proteus mirabilis [facility] Wound Culture Staphylococcus aureus [facility] Wound Culture Enterococcus faecalis [facility] Gram stain for investigation of transfusion reactionOrdered By: Mario Yun on 01-10-2023 Microscopic observation Gram stain Nom (Unsp spec) [facility] Glucose Glucometer (BldC) [M ass/Vol]Ordered By: Mario Yun on 12-21-2022 Glucose [Mass/Vol] 221 mg/dL 74-106 [facility] Comment on above: MANAGEMENT OF PATIEN T CARE PER NURSING PROTOCOL Absolute lymphocyte countOrd ered By: Anita Zhang on 12-10-2022 Lymphocytes Auto (Unsp spec) [#/Vol] 2.87 10*3/uL 0.83-4.51 [facility] Basophil percentageOrdered B y: Anita Zhang on 12-10-2022 Basophils/100 WBC (Bld) 0.8 % 0-1 [facility] Bilirubin [Mass/Vol] 0.40 mg/dL 0.20-1.00 [facility] Comment on above: For patients on eltr ombopag therapy, use of Dimension [place] TBIL is not recommended. Chloride [Moles/Vol] 111 mmol/L 98-107 [facility] Eosinophils/100 WBC (Bld) 1.7 % 0-5 [facility] Glucose [Mass/Vol] 102 mg/dL 74-106 [facility] Comment on above: Fasting Glucose resu lt from 100 to 125 mg/dL suggests IMPAIRED HOMEOSTASIS per A.D.A. criteria. Neutrophils (Bld) [#/Vol] 5.3 10*3/uL 2.0-7.7 [facility] Neutrophils/100 WBC (Bld) 57.1 % 47-70 [facility] Potassium [Moles/Vol] 3.9 mmol/L 3.5-5.1 [facility] Protein [Mass/Vol] 7.9 g/dL 6.4-8.2 [facility] Sodium [Moles/Vol] 141 mmol/L 136-145 [facility] WBC (Bld) [#/Vol] 9.3 10*3/uL 4.4-11.0 [facility] Blood erythrocytes count (nu mber/volume)Ordered By: Anita Zhang on 12-10-2022 RBC (Bld) [#/Vol] 4.94 10*6/uL 4.6-6.2 [facility] Blood hemoglobin measurement (mass/volume)Ordered By: Anita Zhang on 12-10-2022 Hemoglobin (Bld) [Mass/Vol] 14.8 g/dL 13.0-16.5 [facility] Blood lymphocytes/100 leukoc ytesOrdered By: Anita Zhang on 12-10-2022 Lymphocytes/100 WBC (Bld) 30.8 % 19-41 [facility] Blood monocytes/100 leukocyt esOrdered By: Anita Zhang on 12-10-2022 Monocytes/100 WBC (Bld) 9.1 % 0-10 [facility] Blood platelet mean volumeOr dered By: Anita Zhang on 12-10-2022 Platelet mean volume (Bld) [Entitic vol] 10.8 fL 6.2-12.0 [facility] Determination of erythrocyte mean corpuscular volume (MCV)Ordered By: Anita Zhang on 12-10-2022 MCV (RBC) [Entitic vol] 86.2 fL 80-94 [facility] Hematocrit Auto (Bld) [Volum e fraction]Ordered By: Anita Zhang on 12-10-2022 Hematocrit (Bld) [Volume fraction] 42.6 % 40-54 [facility] Laboratory - Chemistry and C hemistry - challengeOrdered By: Anita Zhang on 12-10-2022 ALP [Catalytic activity/Vol] 66 U/L 45-117 [facility] ALT [Catalytic activity/Vol] 31 U/L 16-61 [facility] CO2 [Moles/Vol] 27.0 mmol/L 21.0-32.0 [facility] Globulin (S) [Mass/Vol] 4.1 g/dL 2.2-4.2 [facility] Urea nitrogen/Creatinine [Mass ratio] 13.9 mg/mg 10-20 [facility] Laboratory - Hematology and Cell countsOrdered By: Anita Zhang on 12-10-2022 Erythrocyte distribution width (RBC) [Entitic vol] 40.4 fL 35.1-43.9 [facility] Erythrocyte distribution width (RBC) [Ratio] 13.1 % 11.6-14.6 [facility] Immature granulocytes/100 WBC (Bld) 0.500 % 0.0-0.9 [facility] Comment on above: IG% - Immature Granu locytes (promyelocytes, myelocytes and metamyelocytes) > 1% indicates that a LEFT SHIFT is Present. MCH (RBC) [Entitic mass] 30.0 pg 27.0-32.0 [facility] Nucleated RBC/100 WBC (Bld) [Ratio] 0 % 0-5 [facility] MCHC Auto (RBC) [Mass/Vol]Or dered By: Anita Zhang on 12-10-2022 MCHC (RBC) [Mass/Vol] 34.7 g/dL 32-36 [facility] No Panel InformationOrdered By: Anita Zhang on 12-10-2022 Estimated GFR (MDRD) Amer 77 mL/min >60 [facility] Comment on above: GFR Calc Estimated GFR (MDRD) Non-Af Amer 64 mL/min >60 [facility] Comment on above: Non- GFR Calc Platelets bldOrdered By: Anita Zhang on 12-10-2022 Platelets (Bld) [#/Vol] 211 10*3/uL 150-450 [facility] Serum or plasma albumin camelia urement (mass/volume)Ordered By: Anita Zhang on 12-10-2022 Albumin [Mass/Vol] 3.8 g/dL 3.2-5.0 [facility] Serum or plasma albumin/glob ulin mass ratioOrdered By: Anita Zhang on 12-10-2022 Albumin/Globulin [Mass ratio] 0.9 {ratio} 0.9-2.4 [facility] Serum or plasma calcium camelia urement (mass/volume)Ordered By: Anita Zhang on 12-10-2022 Calcium [Mass/Vol] 9.3 mg/dL 8.5-10.1 [facility] Serum or plasma creatinine m easurement (mass/volume)Ordered By: Anita Zhang on 12-10-2022 Creatinine [Mass/Vol] 1.22 mg/dL 0.70-1.30 [facility] Comment on above: The validity of the calculated GFR & GFRAA in patients over 70 years has not been determined. Clinical correlation is essential. Serum or plasma urea nitroge n measurement (mass/volume)Ordered By: Anita Zhang on 12-10-2022 Urea nitrogen [Mass/Vol] 17 mg/dL 7-18 [facility] Thin prep Papanicolaou smear with manual screeningOrdered By: Anita Zhang on 12-10-2022 Thin prep Papanicolaou smear with manual screening 25 U/L 15-37 [facility] Thin prep Papanicolaou smear with manual screening 3 5-15 [facility] HEMOGLOBIN A1C (POC)on 08-24 HbA1c (Bld) [Mass fraction] 7.0 % Abnormal 4.2 - 5.6 % [facility] Bacteria identified Cx Nom ( Wound)Ordered By: Dr. Yun on 08-18-2022 Wound Culture Proteus mirabilis [facility] Wound Culture Staphylococcus aureus [facility] Gram stain for investigation of transfusion reactionOrdered By: Dr. Yun on 08-15-2022 Microscopic observation Gram stain Nom (Unsp spec) [facility] Anaerobic cultureOrdered By: Dr. Yun on 06-04-2022 Bacteria identified Anaer cx Nom (Unsp spec) No growth in 5 days. [facility] Routine wound cultureOrdered By: Dr. Yun on 06-03-2022 Bacteria identified Cx Nom (Wound) No growth aerobically. [facility] Glucose Glucometer (dC) [M ass/Vol]Ordered By: Dr. Yun on 06-01-2022 Glucose [Mass/Vol] 252 mg/dL 74-106 [facility] Comment on above: MANAGEMENT OF PATIEN T CARE PER NURSING PROTOCOL Gram stain for investigation of transfusion reactionOrdered By: Dr. Yun on 06-01-2022 Microscopic observation Gram stain Nom (Unsp spec) [facility] HEMOGLOBIN A1C (POC)on 05-25 HbA1c (Bld) [Mass fraction] 8.9 % Abnormal 4.2 - 5.6 % [facility] Absolute lymphocyte countOrd ered By: Dr. Zhang on 05-21-2022 Lymphocytes Auto (Unsp spec) [#/Vol] 2.29 10*3/uL 0.83-4.51 [facility] Basophil percentageOrdered B y: Dr. Zhang on 05-21-2022 Basophils/100 WBC (Bld) 0.8 % 0-1 [facility] Bilirubin [Mass/Vol] 0.50 mg/dL 0.20-1.00 [facility] Comment on above: For patients on eltr ombopag therapy, use of Dimension [place] TBIL is not recommended. Chloride [Moles/Vol] 104 mmol/L 98-107 [facility] Eosinophils/100 WBC (Bld) 2.6 % 0-5 [facility] Glucose [Mass/Vol] 157 mg/dL 74-106 [facility] Comment on above: Fasting Glucose resu lt greater than or equal to 126 mg/dL suggests DIABETES MELLITUS per A.D.A. criteria. Neutrophils (Bld) [#/Vol] 5.0 10*3/uL 2.0-7.7 [facility] Neutrophils/100 WBC (Bld) 59.5 % 47-70 [facility] Potassium [Moles/Vol] 3.8 mmol/L 3.5-5.1 [facility] Protein [Mass/Vol] 7.8 g/dL 6.4-8.2 [facility] Sodium [Moles/Vol] 141 mmol/L 136-145 [facility] WBC (Bld) [#/Vol] 8.4 10*3/uL 4.4-11.0 [facility] Blood erythrocytes count (nu mber/volume)Ordered By: Dr. Zhang on 05-21-2022 RBC (Bld) [#/Vol] 5.34 10*6/uL 4.6-6.2 [facility] Blood hemoglobin measurement (mass/volume)Ordered By: Dr. Zhang on 05-21-2022 Hemoglobin (Bld) [Mass/Vol] 16.0 g/dL 13.0-16.5 [facility] Blood lymphocytes/100 leukoc ytesOrdered By: Dr. Zhang on 05-21-2022 Lymphocytes/100 WBC (Bld) 27.3 % 19-41 [facility] Blood monocytes/100 leukocyt esOrdered By: Dr. Zhang on 05-21-2022 Monocytes/100 WBC (Bld) 9.4 % 0-10 [facility] Blood platelet mean volumeOr dered By: Dr. Zhang on 05-21-2022 Platelet mean volume (Bld) [Entitic vol] 11.8 fL 6.2-12.0 [facility] Determination of erythrocyte mean corpuscular volume (MCV)Ordered By: Dr. Zhang on 05-21-2022 MCV (RBC) [Entitic vol] 88.2 fL 80-94 [facility] Hematocrit Auto (Bld) [Volum e fraction]Ordered By: Dr. Zhang on 05-21-2022 Hematocrit (Bld) [Volume fraction] 47.1 % 40-54 [facility] Laboratory - Chemistry and C hemistry - challengeOrdered By: Dr. Zhang on 05-21-2022 ALP [Catalytic activity/Vol] 67 U/L 45-117 [facility] ALT [Catalytic activity/Vol] 41 U/L 16-61 [facility] CO2 [Moles/Vol] 25.0 mmol/L 21.0-32.0 [facility] Globulin (S) [Mass/Vol] 3.7 g/dL 2.2-4.2 [facility] Urea nitrogen/Creatinine [Mass ratio] 12.2 mg/mg 10-20 [facility] Laboratory - Hematology and Cell countsOrdered By: Dr. Zhang on 05-21-2022 Erythrocyte distribution width (RBC) [Entitic vol] 42.7 fL 35.1-43.9 [facility] Erythrocyte distribution width (RBC) [Ratio] 13.2 % 11.6-14.6 [facility] Immature granulocytes/100 WBC (Bld) 0.400 % 0.0-0.9 [facility] Comment on above: IG% - Immature Granu locytes (promyelocytes, myelocytes and metamyelocytes) > 1% indicates that a LEFT SHIFT is Present. MCH (RBC) [Entitic mass] 30.0 pg 27.0-32.0 [facility] Nucleated RBC/100 WBC (Bld) [Ratio] 0 % 0-5 [facility] MCHC Auto (RBC) [Mass/Vol]Or dered By: Dr. Zhang on 05-21-2022 MCHC (RBC) [Mass/Vol] 34.0 g/dL 32-36 [facility] No Panel InformationOrdered By: Dr. Zhang on 05-21-2022 Estimated GFR (MDRD) Amer 83 mL/min >60 [facility] Comment on above: GFR Calc Estimated GFR (MDRD) Non-Af Amer 69 mL/min >60 [facility] Comment on above: Non- GFR Calc Platelets bldOrdered By: Dr. Zhang on 05-21-2022 Platelets (Bld) [#/Vol] 168 10*3/uL 150-450 [facility] Serum or plasma albumin camelia urement (mass/volume)Ordered By: Dr. Zhang on 05-21-2022 Albumin [Mass/Vol] 4.1 g/dL 3.2-5.0 [facility] Serum or plasma albumin/glob ulin mass ratioOrdered By: Dr. Zhang on 05-21-2022 Albumin/Globulin [Mass ratio] 1.1 {ratio} 0.9-2.4 [facility] Serum or plasma calcium camelia urement (mass/volume)Ordered By: Dr. Zhang on 05-21-2022 Calcium [Mass/Vol] 9.7 mg/dL 8.5-10.1 [facility] Serum or plasma creatinine m easurement (mass/volume)Ordered By: Dr. Zhang on 05-21-2022 Creatinine [Mass/Vol] 1.15 mg/dL 0.70-1.30 [facility] Comment on above: The validity of the calculated GFR & GFRAA in patients over 70 years has not been determined. Clinical correlation is essential. Serum or plasma urea nitroge n measurement (mass/volume)Ordered By: Dr. Zhang on 05-21-2022 Urea nitrogen [Mass/Vol] 14 mg/dL 7-18 [facility] Thin prep Papanicolaou smear with manual screeningOrdered By: Dr. Zhang on 05-21-2022 Thin prep Papanicolaou smear with manual screening 24 U/L 15-37 [facility] Thin prep Papanicolaou smear with manual screening 12 5-15 [facility] Whole blood hemoglobin A1c/t otal hemoglobin ratio (mass fraction)Ordered By: Dr. Yun on 04-03-2022 HbA1c (Bld) [Mass fraction] 8.8 % 3.8-5.6 [facility] Comment on above: Normal < 5.7 % Predi abetic 5.7 - 6.4 % Diabetic >or= 6.5 % Please note range changes. Glucose Glucometer (BldC) [M ass/Vol]on 01-10-2022 Glucose [Mass/Vol] 160 mg/dL 74-106 [facility] Work Phone: Comment on above: MANAGEMENT OF PATIEN T CARE PER NURSING PROTOCOL HEMOGLOBIN A1C (POC)on 11-14 HbA1c (Bld) [Mass fraction] 9.1 % Abnormal 4.2 - 5.6 % [facility] Whole blood hemoglobin A1c/t otal hemoglobin ratio (mass fraction)on 09-19-2021 HbA1c (Bld) [Mass fraction] 8.9 % 3.8-5.6 [facility] Work Phone: Comment on above: Normal < 5.7 % Predi abetic 5.7 - 6.4 % Diabetic >or= 6.5 % Please note range changes. CR Foot Complete 3+ Views [place] 10-07-2020 CR Foot Complete 3+ Views Left [facility]: [id number] ACCESSION EXAM DATE/TIME PROCEDURE ORDERING PROVIDER [id number] 10/07/2020 11:39 EDT CR Foot Complete 3+ MD GERMAN, MEREDITH Rudd Views Left CPT code 55702 Reason For Exam (CR Foot Complete 3+ [...] Transcribed Date and Time: 10/07/2020 12:03 Normal [facility] Comp Metabolic Panelon 10-07 ALP [Catalytic activity/Vol] 77 U/L Normal 38-126 [facility] Comment on above: Performed By: #### H EMDF, CMP3, LACT3 #### [facility] [address] [place] [address] ALT [Catalytic activity/Vol] 34 U/L Normal 0-49 [facility] Comment on above: Result Comment: The ALT test is performed by an updated assay method. Please note that the reference intervals have been changed and are now sex specific. Performed By: #### H EMDF, CMP3, LACT3 #### [facility] [address] [place] [address] AST [Catalytic activity/Vol] 56 U/L High 15-46 [facility] Comment on above: Result Comment: Slig htly hemolysed, interpret with caution. Performed By: #### H EMDF, CMP3, LACT3 #### [facility] [address] [place] [address] Calcium [Mass/Vol] 9.9 mg/dL Normal 8.4-10.4 [facility] Comment on above: Performed By: #### H EMDF, CMP3, LACT3 #### [facility] [address] [place] [address] Glucose [Mass/Vol] 285 mg/dL High 70-100 [facility] Comment on above: Performed By: #### H EMDF, CMP3, LACT3 #### [facility] [address] [place] [address] Protein [Mass/Vol] 8.8 g/dL High 6.3-8.2 [facility] Comment on above: Performed By: #### H EMDF, CMP3, LACT3 #### [facility] [address] [place] [address] Urea nitrogen [Mass/Vol] 22 mg/dL High 7-20 [facility] Comment on above: Performed By: #### H EMDF, CMP3, LACT3 #### [facility] [address] [place] [address] Anion gap [Moles/Vol] 11 mmol/L Normal 3-13 [facility] Comment on above: Performed By: #### H EMDF, CMP3, LACT3 #### [facility] [address] [place] [address] Bilirubin [Mass/Vol] 0.9 mg/dL Normal 0.2-1.3 [facility] Comment on above: Performed By: #### H EMDF, CMP3, LACT3 #### [facility] [address] [place] [address] CO2 [Moles/Vol] 26 mmol/L Normal 22-30 [facility] Comment on above: Performed By: #### H EMDF, CMP3, LACT3 #### [facility] [address] [place] [address] Creatinine [Mass/Vol] 1.16 mg/dL Normal 0.52-1.25 [facility] Comment on above: Performed By: #### H EMDF, CMP3, LACT3 #### [facility] [address] [place] [address] GFR/1.73 sq M.predicted among blacks MDRD (S/P/Bld) [Vol rate/Area] 78.9 mL/min/{1.73_m2} Normal >60 [facility] Comment on above: Performed By: #### H EMDF, CMP3, LACT3 #### [facility] [address] [place] [address] GFR/1.73 sq M.predicted among non-blacks MDRD (S/P/Bld) [Vol rate/Area] 68.0 mL/min/{1.73_m2} Normal >60 [facility] Comment on above: Result Comment: KDIG O [...] By: #### H EMDF, CMP3, LACT3 #### [facility] [address] [place] [address] Potassium [Moles/Vol] 4.4 mmol/L Normal 3.5-5.1 [facility] Comment on above: Result Comment: Slig htly hemolysed, interpret with caution. Performed By: #### H EMDF, CMP3, LACT3 #### [facility] [address] [place] [address] Sodium [Moles/Vol] 135 mmol/L Normal 135-145 [facility] Comment on above: Performed By: #### H EMDF, CMP3, LACT3 #### [facility] [address] [place] [address] Albumin [Mass/Vol] 4.7 g/dL Normal 3.5-5.0 [facility] Comment on above: Performed By: #### H EMDF, CMP3, LACT3 #### [facility] [address] [place] [address] Chloride [Moles/Vol] 98 mmol/L Normal 98-107 [facility] Comment on above: Performed By: #### H EMDF, CMP3, LACT3 #### [facility] [address] [place] [address] Comprehensive Metabolic Pane lOrdered By: Meredith Tinoco on 10-07-2020 Albumin [Mass/Vol] 4.7 g/dL 3.5 - 5.0 g/dL [facility] Work Phone: ALP (Bld) [Catalytic activity/Vol] 77 U/L 38 - 126 U/L [facility] Work Phone: ALT [Catalytic activity/Vol] 34 U/L 0 - 49 U/L [facility] Work Phone: Comment on above: The ALT test is perf ormed by an updated assay method. Please note that the reference intervals have been changed and are now sex specific. Anion gap [Moles/Vol] 11 mmol/L 3 - 13 mmol/L [facility] Work Phone: AST [Catalytic activity/Vol] 56 U/L High 15 - 46 U/L [facility] Work Phone: Comment on above: Slightly hemolysed, interpret with caution. Bilirubin [Mass/Vol] 0.9 mg/dL 0.2 - 1 .3 mg/dL [facility] Work Phone: Calcium [Mass/Vol] 9.9 mg/dL 8.4 - 10. 4 mg/dL [facility] Work Phone: Chloride [Moles/Vol] 98 mmol/L 98 - 10 7 mmol/L [facility] Work Phone: CO2 [Moles/Vol] 26 mmol/L 22 - 30 mmol/L [facility] Work Phone: Creatinine [Mass/Vol] 1.16 mg/dL 0.52 - 1.25 mg/dL [facility] Work Phone: EGFR IF NonAfrican Serbian 68.0 mL/min >60 [facility] Work Phone: Comment on above: KDIGO [...] 6.3 - 8.2 g/dL [facility] Work Phone: [phone] GFR/1.73 sq M.predicted among blacks MDRD (S/P/Bld) [Vol rate/Area] 78.9 mL/min/{1.73_m2} >60 [facility] Work Phone: [phone] Glucose [Mass/Vol] 285 mg/dL High 70 - 100 mg/dL [facility] Work Phone: [phone] Interpretation and review of laboratory results Abnormal [facility] Work Phone: [phone] Potassium [Moles/Vol] 4.4 mmol/L 3.5 - 5.1 mmol/L [facility] Work Phone: [phone] Comment on above: Slightly hemolysed, interpret with caution. Sodium [Moles/Vol] 135 mmol/L 135 - 145 mmol/L [facility] Work Phone: [phone] Urea nitrogen (BldV) [Mass/Vol] 22 mg/dL High 7 - 20 mg/dL [facility] Work Phone: [phone] Test Performed by [facility], [address] [place], [place] [address] [place] [address] [facility] Work Phone: [phone] [facility] Work Phone: [phone] Hemogram (CBC) w/Auto DiffOr dered By: Meredith Tinoco on 10-07-2020 Absolute Baso # 0.1 10*3/uL 0.0 - 0.2 10*3/uL [facility] Work Phone: [phone] Absolute Neut # 5.8 10*3/uL 1.8 - 7.0 10*3/uL [facility] Work Phone: [phone] Basophils/100 WBC (Bld) 0.8 % 0.0 - 2.0 % [facility] Work Phone: [phone] Eosinophils (Bld) [#/Vol] 0.3 10*3/uL 0.0 - 0.5 10*3/uL [facility] Work Phone: [phone] Eosinophils/100 WBC (Bld) 2.9 % 1.0 - 6.0 % [facility] Work Phone: [phone] Granulocytes/100 WBC (Bld) 56.3 % 40.0 - 80.0 % [facility] Work Phone: [phone] Hematocrit (Bld) [Volume fraction] 46.2 % 40.0 - 52.0 % [facility] Work Phone: [phone] Hemoglobin.gastrointes tinal spec 1 Ql (Stl) 15.8 g/dL 13.0 - 18.0 g/dL [facility] Work Phone: [phone] Interpretation and review of laboratory results Abnormal [facility] Work Phone: [phone] Lymphocytes (Bld) [#/Vol] 2.8 10*3/uL 1.0 - 4.3 10*3/uL [facility] Work Phone: [phone] Lymphocytes/100 WBC (Bld) 27.6 % 20.0 - 40.0 % [facility] Work Phone: [phone] MCH (RBC) [Entitic mass] 30.1 pg 26.0 - 34.0 pg [facility] Work Phone: [phone] MCHC (RBC) [Mass/Vol] 34.2 % 32.0 - 36.0 % [facility] Work Phone: [phone] MCV (RBC) [Entitic vol] 88.0 fL 80.0 - 98.0 fL [facility] Work Phone: [phone] Monocytes (Bld) [#/Vol] 1.3 10*3/uL High 0.0 - 0.8 10*3/uL [facility] Work Phone: [phone] Monocytes/100 WBC (Bld) 12.4 % High 2.0 - 10.0 % [facility] Work Phone: [phone] Platelet distribution width (Bld) [Ratio] 13.7 % 11.5 - 14.5 % [facility] Work Phone: [phone] Platelet mean volume (Bld) [Entitic vol] 8.4 fL 7.4 - 10.4 fL [facility] Work Phone: [phone] Platelets (Bld) [#/Vol] 233 10*3/uL 140 - 440 10*3/uL [facility] Work Phone: [phone] RBC (Bld) [#/Vol] 5.24 10*6/uL 4.40 - 5.90 10*6/uL [facility] Work Phone: WBC (Bld) [#/Vol] 10.3 10*3/uL 3.6 - 10.7 10*3/uL [facility] Work Phone: Test Performed by [facility], [address] , [place], [place] [address] [facility] Work Phone: [facility] Work Phone: Hemogram w/ Autodiffon 10-07 Abs Baso Cnt 0.1 10*3/uL Normal 0.0-0.2 [facility] Comment on above: Performed By: #### H EMDF, CMP3, LACT3 #### [facility] [address] [place] [address] Abs Neutrophile Cnt 5.8 10*3/uL Normal 1.8-7.0 [facility] Comment on above: Performed By: #### H EMDF, CMP3, LACT3 #### [facility] [address] [place] [address] Basophils/100 WBC (Bld) 0.8 % Normal 0.0-2.0 [facility] Comment on above: Performed By: #### H EMDF, CMP3, LACT3 #### [facility] [address] [place] [address] Eosinophils (Bld) [#/Vol] 0.3 10*3/uL Normal 0.0-0.5 [facility] Comment on above: Performed By: #### H EMDF, CMP3, LACT3 #### [facility] [address] [place] [address] Eosinophils/100 WBC (Bld) 2.9 % Normal 1.0-6.0 [facility] Comment on above: Performed By: #### H EMDF, CMP3, LACT3 #### [facility] [address] [place] [address] Erythrocyte distribution width (RBC) [Ratio] 13.7 % Normal 11.5-14.5 [facility] Comment on above: Performed By: #### H EMDF, CMP3, LACT3 #### [facility] [address] [place] [address] Granulocytes/100 WBC (Bld) 56.3 % Normal 40.0-80.0 [facility] Comment on above: Performed By: #### H EMDF, CMP3, LACT3 #### [facility] [address] [place] [address] Hematocrit (Bld) [Volume fraction] 46.2 % Normal 40.0-52.0 [facility] Comment on above: Performed By: #### H EMDF, CMP3, LACT3 #### [facility] [address] [place] [address] Hemoglobin (Bld) [Mass/Vol] 15.8 g/dL Normal 13.0-18.0 [facility] Comment on above: Performed By: #### H EMDF, CMP3, LACT3 #### [facility] [address] [place] [address] Lymphocytes (Bld) [#/Vol] 2.8 10*3/uL Normal 1.0-4.3 [facility] Comment on above: Performed By: #### H EMDF, CMP3, LACT3 #### [facility] [address] [place] [address] Lymphocytes/100 WBC (Bld) 27.6 % Normal 20.0-40.0 [facility] Comment on above: Performed By: #### H EMDF, CMP3, LACT3 #### [facility] [address] [place] [address] MCH (RBC) [Entitic mass] 30.1 pg Normal 26.0-34.0 [facility] Comment on above: Performed By: #### H EMDF, CMP3, LACT3 #### [facility] [address] [place] [address] MCHC 34.2 % Normal 32.0-36.0 [facility] Comment on above: Performed By: #### H EMDF, CMP3, LACT3 #### [facility] [address] [place] [address] MCV (RBC) [Entitic vol] 88.0 fL Normal 80.0-98.0 [facility] [facility] Comment on above: Performed By: #### H EMDF, CMP3, LACT3 #### [facility] [address] [place] [address] Monocytes (Bld) [#/Vol] 1.3 10*3/uL High 0.0-0.8 [facility] Comment on above: Performed By: #### H EMDF, CMP3, LACT3 #### [facility] [address] [place] [address] Monocytes/100 WBC (Bld) 12.4 % High 2.0-10.0 [facility] Comment on above: Performed By: #### H EMDF, CMP3, LACT3 #### [facility] [address] [place] [address] Platelet mean volume (Bld) [Entitic vol] 8.4 fL Normal 7.4-10.4 [facility] Comment on above: Performed By: #### H EMDF, CMP3, LACT3 #### [facility] [address] [place] [address] Platelets (Bld) [#/Vol] 233 10*3/uL Normal 140-440 [facility] Comment on above: Performed By: #### H EMDF, CMP3, LACT3 #### [facility] [address] [place] [address] RBC (Bld) [#/Vol] 5.24 10*6/uL Normal 4.40-5.90 [facility] Comment on above: Performed By: #### H EMDF, CMP3, LACT3 #### [facility] [address] [place] [address] WBC (Bld) [#/Vol] 10.3 10*3/uL Normal 3.6-10.7 [facility] Comment on above: Performed By: #### H EMDF, CMP3, LACT3 #### [facility] [address] [place] [address] Lactic Acidon 10-07-2020 Lactate [Moles/Vol] 1.6 mmol/L Normal 0.7-2.0 [facility] Comment on above: Performed By: #### H EMDF, CMP3, LACT3 #### [facility] [address] [place] [address] Lactic Acid, PlasmaOrdered B y: Meredith Tinoco on 10-07-2020 Lactate [Moles/Vol] 1.6 mmol/L 0.7 - 2. 0 mmol/L [facility] Work Phone: Test Performed by [facility], [address] , [place], [place] [address] [employer] Work Phone: [facility] Work Phone: XR FOOT LEFT (MIN 3 VIEWS)Or dered By: Meredith Tinoco on 10-07-2020 Patient Name: ISA GERONIMO Diagnostic Radiology ACCESSION EXAM DATE/TIME PROCEDURE ORDERING PROVIDER [id number] 10/07/2020 11:39 EDT CR Foot Complete 3+ MD TINOCO DAVID L Views Left CPT code 87602 Reason For Exam (CR Foot Complete 3+ [...] Phone: [facility], [facility] Incoming Radiology Results From [facility] - 10/07/2020 12:03 PM EDT [facility]: [id number] ACCESSION EXAM DATE/TIME PROCEDURE ORDERING PROVIDER [id number] 10/07/2020 11:39 EDT CR Foot Complete 3+ MD TINOCO DAVID L Views Left CPT code 62544 Reason For Exam (CR Foot Complete 3+ [...] ALFRED Transcribed Date and Time: 10/07/2020 12:03 [facility] Work Phone: [facility] Work Phone: Comprehensive Metabolic Pane lOrdered By: Chalino Jackson on 05-08-2019 Albumin [Mass/Vol] 4.9 g/dL 3.5 - 5 g/dL [facility] Work Phone: ALP [Catalytic activity/Vol] 77 U/L 38 - 126 U/L [facility] Work Phone: ALT [Catalytic activity/Vol] 69 U/L 13 - 69 U/L [facility] Work Phone: Anion gap [Moles/Vol] 16 mmol/L [facility] Work Phone: AST [Catalytic activity/Vol] 61 U/L High 15 - 46 U/L [facility] Work Phone: Bilirubin [Mass/Vol] 0.6 mg/dL 0.2 - 1 .3 mg/dL [facility] Work Phone: Calcium [Mass/Vol] 10.0 mg/dL 8.4 - 10. 4 mg/dL [facility] Work Phone: [phone] Chloride [Moles/Vol] 103 mmol/L 98 - 10 7 mmol/L [facility] Work Phone: [phone] CO2 [Moles/Vol] 20 mmol/L Low 22 - 30 mmol/L [facility] Work Phone: [phone] Creatinine [Mass/Vol] 0.89 mg/dL 0.52 - 1.25 mg/dL [facility] Work Phone: [phone] EGFR IF NonAfrican Serbian >60.0 >60 mL/min [facility] Work Phone: [phone] Comment on above: Source- MDRD equatio n with creatinine calibration to IDMS(NKDEP) eGFR not recommended for drug dose adjustment GFR/1.73 sq M.predicted among blacks MDRD (S/P/Bld) [Vol rate/Area] mL/min/{1.73_m2} >60 mL/min [facility] Work Phone: [phone] Glucose [Mass/Vol] 292 mg/dL High 70 - 100 mg/dL [facility] Work Phone: [phone] Interpretation and review of laboratory results Abnormal [facility] Work Phone: [phone] Potassium [Moles/Vol] 4.0 mmol/L 3.5 - 5.1 mmol/L [facility] Work Phone: [phone] Protein [Mass/Vol] 8.1 g/dL 6.3 - 8.2 g/dL [facility] Work Phone: [phone] Sodium [Moles/Vol] 139 mmol/L 135 - 145 mmol/L [facility] Work Phone: [phone] Urea nitrogen [Mass/Vol] 12 mg/dL 7 - 20 mg/dL [facility] Work Phone: [phone] Test Performed by [facility], [facility] [address] , [place] [id number] [facility] Work Phone: [phone] Hemogram (CBC) w/Auto DiffOr dered By: Chalino Jackson on 05-08-2019 Absolute Baso # 0.1 10*3/uL 0 - 0.2 10*3/uL [facility] Work Phone: [phone] Absolute Neut # 6.8 10*3/uL 1.8 - 7 10*3/uL [facility] Work Phone: [phone] Basophils/100 WBC (Bld) 0.9 % 0 - 2 % [facility] Work Phone: [phone] Eosinophils (Bld) [#/Vol] 0.3 10*3/uL 0 - 0.5 10*3/uL [facility] Work Phone: [phone] Eosinophils/100 WBC (Bld) 2.8 % 1 - 6 % [facility] Work Phone: [phone] Erythrocyte distribution width (RBC) [Ratio] 14.1 % 11.5 - 14.5 % [facility] Work Phone: [phone] Granulocytes/100 WBC (Bld) 66.2 % 40 - 80 % [facility] Work Phone: [phone] Hematocrit (Bld) [Volume fraction] 48.2 % 40 - 52 % [facility] Work Phone: [phone] Hemoglobin (Bld) [Mass/Vol] 16.7 g/dL 13 - 18 g/dL [facility] Work Phone: [phone] Interpretation and review of laboratory results Abnormal [employer] Work Phone: [phone] Lymphocytes (Bld) [#/Vol] 2.2 10*3/uL 1 - 4.3 10*3/uL [facility] Work Phone: [phone] Lymphocytes/100 WBC (Bld) 21.8 % 20 - 40 % [facility] Work Phone: [phone] MCH (RBC) [Entitic mass] 30.0 pg 26 - 34 pg [facility] Work Phone: [phone] MCHC 34.6 % 32 - 36 % [facility] Work Phone: [phone] MCV (RBC) [Entitic vol] 86.7 fL 80 - 98 fL [facility] Work Phone: [phone] Monocytes (Bld) [#/Vol] 0.9 10*3/uL High 0 - 0.8 10*3/uL [facility] Work Phone: [phone] Monocytes/100 WBC (Bld) 8.3 % 2 - 10 % [facility] Work Phone: Platelet mean volume (Bld) [Entitic vol] 9.1 fL 7.4 - 10.4 fL [facility] Work Phone: [phone] Platelets (Bld) [#/Vol] 223 10*3/uL 140 - 440 10*3/uL [facility] Work Phone: [phone] RBC (Bld) [#/Vol] 5.56 10*6/uL 4.4 - 5.9 10*6/uL [facility] Work Phone: WBC (Bld) [#/Vol] 10.3 10*3/uL 3.6 - 10.7 10*3/uL [facility] Work Phone: Test Performed by [facility], [address] , [place] [address] [employer] Work Phone: Lactic Acid, PlasmaOrdered B y: Chalino Jackson on 05-08-2019 Interpretation and review of laboratory results Abnormal [facility] Work Phone: Lactate [Moles/Vol] 3.1 mmol/L Critically high 0.7 - 2 mmol/L [facility] Work Phone: Test Performed by [facility], [address] , [place] [address] [facility] Work Phone: Rapid influenza A/B antigens Ordered By: Chalino Jackson on 05-08-2019 INFLUENZA A Not detected Not Detected NA [employer] Work Phone: INFLUENZA B Not detected Not Detected NA [employer] Work Phone: Comment on above: Method: Isothermal n ucleic acid amplification technology. Test Performed by [facility], [address] , [place] [address] [employer] Work Phone: XR CHEST STANDARD (2 VW)Orde red By: Chalino Jackson on 05-08-2019 Patient Name: ISA GERONIMO ---Diagnostic Radiology--- Exam Date/Time 05/08/2019 13:31:56 EST Exam CR Chest PA/LAT Ordering Physician CorneliaAdelfo JARRETRENETTA, CHALINO Accession Number [id number] CPT4 Codes 01145 () Reason For Exam cough Report PA [...] and Time: 05/08/2019 1:45 [facility] Work Phone: [facility] Incoming Radiology Results From [facility] - 05/08/2019 1:46 PM EST Patient Name: ISA MAYEN ---Diagnostic Radiology--- Exam Date/Time 05/08/2019 13:31:56 EST Exam CR Chest PA/LAT Ordering Physician CorneliaAdelfo CHALINO CRANDALL Accession Number [id number] CPT4 Codes 44971 () Reason For Exam cough Report PA [...] Phone: BENZODIAZEPINES CONF,URINEon 07-11-2017 7-AMINOCLONAZEPAM <5 Normal [facility] Comment on above: Performed By: #### B ENCN ####[facility] [address] [place] [address] ALPHA-HYDROXYALPRAZOLA M <5 Normal [facility] Comment on above: Performed By: #### B ENCN ####[facility] [address] [place] [address] ALPHA-HYRDOXYMIDAZOLAM <20 Normal [facility] Comment on above: Result Comment: Perf ormed by [employer],[address] [facility], [facility] [place] [address] xji.[employer], Abiodun Parham MD - Lab. Director Performed By: #### B ENCN ####[facility] [address] [place] [address] ALPRAZOLAM <5 Normal [facility] Comment on above: Performed By: #### B ENCN ####[facility] [address] [place] [address] CHLORDIAZEPOXIDE <20 Normal [facility] Comment on above: Performed By: #### B ENCN ####[facility] [address] [place] [address] CLONAZEPAM <5 Normal [facility] Comment on above: Performed By: #### B ENCN ####[facility] [address] [place] [address] DIAZEPAM <20 Normal [facility] Comment on above: Result Comment: INTE [...] the laboratory.Test developed and characteristics determined by [facility]. See Compliance Statement B: Dine perfect.[place]/CS Performed By: #### B ENCN ####[facility] [address] [place] [address] LORAZEPAM <20 Normal [facility] Comment on above: Performed By: #### B ENCN ####[facility] [address] [place] [address] MIDAZOLAM <20 Normal [facility] Comment on above: Performed By: #### B ENCN ####[facility] [address] [place] [address] NORDIAZEPAM <20 Normal [facility] Comment on above: Performed By: #### B ENCN ####[facility] [address] [place] [address] OXAZEPAM <20 Normal [facility] Comment on above: Performed By: #### B ENCN ####[facility] [address] [place] [address] TEMAZEPAM <20 Normal [facility] Comment on above: Performed By: #### B ENCN ####[facility] [address] [place] [address] OPIATE CONFIRMATION,URINEon 07-10-2017 Acetaminophen mass conc <10 Normal [facility] Comment on above: Result Comment: INTE [...] the laboratory.Test developed and characteristics determined by [facility]. See Compliance Statement B: [employer]/ Performed By: #### O PIC2 ####[facility] [address] [facility] [place] [address] CODEINE 70 ng/mL Normal [facility] Comment on above: Result Comment: Cons istent with use of a drug containing codeine. Performed By: #### O PIC2 ####[facility] [place] [address] HYDROCODONE <20 Normal [facility] Comment on above: Performed By: #### O PIC2 ####[facility] [place] [address] HYDROMORPHONE <20 Normal [facility] Comment on above: Performed By: #### O PIC2 ####[facility] [address]bsmw[address] [place] [address] MORPHINE <20 Normal [facility] Comment on above: Performed By: #### O PIC2 ####[facility] [place] [address] NORHYDROCODONE <20 Normal [facility] Comment on above: Result Comment: Perf ormed by [employer],[address] [place] [address] vhf.[employer], Abiodun Parham MD - Lab. Director Performed By: #### O PIC2 ####[facility] [address] [place] [address] NOROXYCODONE 97 ng/mL Normal [facility] Comment on above: Result Comment: Noro xycodone is a metabolite of oxycodone; consistent with use ofa drug containing oxycodone. Performed By: #### O PIC2 ####[facility] [address] [place] [address] NOROXYMORPHONE 27 ng/mL Normal [facility] Comment on above: Result Comment: Noro xymorphone is a metabolite of oxymorphone and naloxone(nornaloxone); consistent with use of a drug containingoxymorphone or naloxone. Oxymorphone may also be a metabolite ofoxycodone. Performed By: #### O PIC2 ####[facility] [address] [place] [address] OXYCODONE <20 Normal [facility] Comment on above: Performed By: #### O PIC2 ####[facility] [address] [place] [address] OXYMORPHONE <20 Normal [facility] Comment on above: Performed By: #### O PIC2 ####[facility] [address]triw[address] [place] [address] BUPRENORPHINE SCREEN TO CONF IRM,URINEon 07-09-2017 BUPRENORPHINE SCREEN,INTERP. See Note Normal [facility] Comment on above: Result Comment: INTE [...] forensic use.Test developed and characteristics determined by [facility]. See Compliance Statement B: [employer]/CSPerformed by [employer],[address] [facility], [facility] [place] [address] vlk.[employer], Abiodun Parham MD - Lab. Director Performed By: #### B UPRS ####[facility] [address] [place] [address] BUPRENORPHINE SCREEN,URINE Negative Normal Cut[address] 5 [facility] Comment on above: Performed By: #### B UPRS ####[facility] [address] [place] [address] DRUG SCREEN,PAIN MANAGEMENTo n 07-05-2017 Amphetamines Ql (U) Negative Normal NEGATIVE [facility] Comment on above: Result Comment: CUTO FF LEVEL: 500 NG/ML Contact [employer] drug: d-Methamphetamine Cross-reactivity has been reported with high concentrations of the following drugs: buproprion, chloroquine, chlorpromazine, ephedrine, mephentermine, fenfluramine, phentermine, phenylpropanolamine, pseudoephedrine, and propranolol. Performed By: #### D SPMT ####[facility] [place] [address] Benzodiazepines Screen Ql (U) Negative Normal NEGATIVE [facility] Comment on above: Result Comment: CUTO FF LEVEL:200 NG/ML Contact [employer] drug: LormetazepamBenzodiazepine Confirmatory testing has been sent to a reference laboratoryand will be reported separately. Although the benzodiazepine screening testprovides rapid results; the confirmatory test provide the most sensitive andspecific assessment of drug presence or absence in the urine. Performed By: #### D SPMT ####[facility] [place] [address] Cannabinoids Screen Ql (U) Negative Normal NEGATIVE [facility] Comment on above: Result Comment: CUTO FF LEVEL:50 NG/ML Contact [employer] dru07-dxr-qmeqs4-THC-9carboxylic acid Performed By: #### D SPMT ####[facility] [place] [address] COCAINE METABOLITE Negative Normal NEGATIVE [facility] Comment on above: Result Comment: CUTO FF LEVEL: 150 NG/ML Contact [employer] drug: Benzoylecgonine(cocaine metabolite) Performed By: #### D SPMT ####[facility] [place] [address] DRUG SCREEN COMMENT. SEE BELOW Normal [facility] Comment on above: Result Comment: POSI TIVE CUTOFFS ARE BASED ON REACTIVITY WITH A OIL ANALYST MEMBER OF DRUG CLASS. MEMBERS OF THE [...] TESTING OR PATHOLOGIST CONSULTATION, CALL LABORATORY AT [phone]. Performed By: #### D SPMT ####[facility] [place] [address] Methadone Ql (U) Negative Normal NEGATIVE [facility] Comment on above: Result Comment: CUTO FF LEVEL: 150 NG/ML Contact [employer] drug: Methadone The metabolite X-ijuqb-mcdzswbsneipnd (LAAM) is not detected by this method in concentrations that would be found in the urine of patients on LAAM therapy. Performed By: #### D SPMT ####[facility] [id number] Opiates Ql (U) Positive Abnormal NEGATIVE [facility] Comment on above: Result Comment: CUTO FF LEVEL: 300 NG/ML Contact [employer] Drug: Morphine This assay shows poor reactivity [...] the urine. Performed By: #### D SPMT ####[facility] [place] [address] PCP Negative Normal NEGATIVE [facility] Comment on above: Result Comment: CUTO FF LEVEL: 25 NG/ML Contact [employer] drug: Phencyclidine(PCP) Cross-reactivity has been reported with dextromethorphan. Performed By: #### D SPMT ####[facility] [id number] URINE BARBITURATES Negative Normal NEGATIVE [facility] Comment on above: Result Comment: CUTO FF LEVEL:200 NG/ML Contact [employer] drug: Secobarbital Performed By: #### D SPMT ####[facility] [id number] BENZODIAZEPINES CONF,URINEon 03-13-2017 7-AMINOCLONAZEPAM <5 Normal [facility] Comment on above: Performed By: #### B ENCN ####[address] [address] ALPHA-HYDROXYALPRAZOLA M <5 Normal [facility] Comment on above: Performed By: #### B ENCN ####[facility] [address]kw[address] [place] [address] ALPHA-HYRDOXYMIDAZOLAM <20 Normal [facility] Comment on above: Result Comment: Perf ormed by [facility],[address] [facility], [facility] [place] [address] ctc.[employer], Abiodun Parham MD - Lab. Director Performed By: #### B ENCN ####[facility] [address] [place] [address] ALPRAZOLAM <5 Normal [facility] Comment on above: Performed By: #### B ENCN ####[facility] [address]caqkhw[address] [place] [address] CHLORDIAZEPOXIDE <20 Normal [facility] Comment on above: Performed By: #### B ENCN ####[facility] [address]itw[address] [place] [address] CLONAZEPAM <5 Normal [facility] Comment on above: Performed By: #### B ENCN ####[facility] [address] [place] [address] DIAZEPAM <20 Normal [facility] Comment on above: Result Comment: INTE [...] the laboratory.Test developed and characteristics determined by [facility]. See Compliance Statement B: ControlCircle/ Performed By: #### B ENCN ####[facility] [address] [place] [address] LORAZEPAM <20 Normal [facility] Comment on above: Performed By: #### B ENCN ####[facility] [address] [place] [address] MIDAZOLAM <20 Normal [facility] Comment on above: Performed By: #### B ENCN ####[facility] [address] [place] [address] NORDIAZEPAM <20 Normal [facility] Comment on above: Performed By: #### B ENCN ####[facility] [address] [place] [address] OXAZEPAM <20 Normal [facility] Comment on above: Performed By: #### B ENCN ####[facility] [address] [place] [address] TEMAZEPAM <20 Normal [facility] Comment on above: Performed By: #### B ENCN ####[facility] [address] [place] [address] OPIATE CONFIRMATION,URINEon 03-12-2017 Acetaminophen mass conc <10 Normal [facility] Comment on above: Result Comment: INTE [...] the laboratory.Test developed and characteristics determined by [facility]. See Compliance Statement B: ControlCircle/CS Performed By: #### O PIC2 ####[facility] [address] [place] [address] CODEINE <20 Normal [facility] Comment on above: Performed By: #### O PIC2 ####[facility] [address] [place] [address] HYDROCODONE <20 Normal [facility] Comment on above: Performed By: #### O PIC2 ####[facility] [address] [place] [address] HYDROMORPHONE <20 Normal [facility] Comment on above: Performed By: #### O PIC2 ####[facility] [address] [place] [address] MORPHINE <20 Normal [facility] Comment on above: Performed By: #### O PIC2 ####[facility] [address] [place] [address] NORHYDROCODONE <20 Normal [facility] Comment on above: Result Comment: Perf ormed by [facility], [facility] [place] [address] knq.[employer], Abiodun Parham MD - Lab. Director Performed By: #### O PIC2 ####[facility] [address] [place] [address] NOROXYCODONE <20 Normal [facility] Comment on above: Performed By: #### O PIC2 ####[facility] [address] [place] [address] NOROXYMORPHONE <20 Normal [facility] Comment on above: Performed By: #### O PIC2 ####[facility] [address] [place] [address] OXYCODONE <20 Normal [facility] Comment on above: Performed By: #### O PIC2 ####[facility] [address] [place] [address] OXYMORPHONE <20 Normal [facility] Comment on above: Performed By: #### O PIC2 ####[facility] [address] [place] [address] DRUG SCREEN,PAIN MANAGEMENTo n 03-08-2017 Amphetamines Ql (U) Negative Normal NEGATIVE [facility] Comment on above: Result Comment: CUTO FF LEVEL: 500 NG/ML Contact [employer] drug: d-Methamphetamine Cross-reactivity has been reported with high concentrations of the following drugs: buproprion, chloroquine, chlorpromazine, ephedrine, mephentermine, fenfluramine, phentermine, phenylpropanolamine, pseudoephedrine, and propranolol. Performed By: #### D SPMT ####[facility] [id number] Benzodiazepines Screen Ql (U) Negative Normal NEGATIVE [facility] Comment on above: Result Comment: CUTO FF LEVEL:200 NG/ML Contact [employer] drug: LormetazepamBenzodiazepine Confirmatory testing has been sent to a reference laboratoryand will be reported separately. Although the benzodiazepine screening testprovides rapid results; the confirmatory test provide the most sensitive andspecific assessment of drug presence or absence in the urine. Performed By: #### D SPMT ####[facility] [place] [address] Cannabinoids Screen Ql (U) Negative Normal NEGATIVE [facility] Comment on above: Result Comment: CUTO FF LEVEL:50 NG/ML Contact [employer] dru53-jkr-basyi6-THC-9carboxylic acid Performed By: #### D SPMT ####[facility] [id number] COCAINE METABOLITE Negative Normal NEGATIVE [facility] Comment on above: Result Comment: CUTO FF LEVEL: 150 NG/ML Contact [employer] drug: Benzoylecgonine(cocaine metabolite) Performed By: #### D SPMT ####[facility] [place] [address] DRUG SCREEN COMMENT. SEE BELOW Normal [facility] Comment on above: Result Comment: POSI TIVE CUTOFFS ARE BASED ON REACTIVITY WITH A OIL ANALYST MEMBER OF DRUG CLASS. MEMBERS OF THE [...] TESTING OR PATHOLOGIST CONSULTATION, CALL LABORATORY AT [phone]. Performed By: #### D SPMT ####[facility] [id number] Methadone Ql (U) Negative Normal NEGATIVE [facility] Comment on above: Result Comment: CUTO FF LEVEL: 150 NG/ML Contact [employer] drug: Methadone The metabolite P-pgmiq-itofwamarudkqp (LAAM) is not detected by this method in concentrations that would be found in the urine of patients on LAAM therapy. Performed By: #### D SPMT ####[facility] [id number] Opiates Ql (U) Negative Normal NEGATIVE [facility] Comment on above: Result Comment: CUTO FF LEVEL: 300 NG/ML Contact [employer] Drug: Morphine This assay shows poor reactivity [...] the urine. Performed By: #### D SPMT ####[facility] [place] [address] PCP Negative Normal NEGATIVE [facility] Comment on above: Result Comment: CUTO FF LEVEL: 25 NG/ML Contact [employer] drug: Phencyclidine(PCP) Cross-reactivity has been reported with dextromethorphan. Performed By: #### D SPMT ####[facility] [place] [address] URINE BARBITURATES Negative Normal NEGATIVE [facility] Comment on above: Result Comment: CUTO FF LEVEL:200 NG/ML Contact [employer] drug: Secobarbital Performed By: #### D SPMT ####[facility] [place] [address] Vital Signs Date Time Vital Sign Value Performing Clinician Facility 01-08-2025 08:30-0400 Body temperature 98 [degF] RICARDO ABRAHAM MD Work Phone: [facility] 01-08-2025 08:30-0400 Diastolic blood pressure 82 mm[Hg] RICARDO ABRAHAM MD Work Phone: [facility] 01-08-2025 08:30-0400 Heart rate 61 /min RICARDO ABRAHAM MD Work Phone: [facility] 01-08-2025 08:30-0400 Respiratory rate 16 /min RICARDO ABRAHAM MD Work Phone: [facility] 01-08-2025 08:30-0400 SaO2% (BldA) [Mass fraction] 100 % RICARDO ABRAHAM MD Work Phone: [facility] 01-08-2025 08:30-0400 Systolic blood pressure 138 mm[Hg] RICARDO ABRAHAM MD Work Phone: [facility] 01-07-2025 14:40-0400 Body height 182.88 cm RICARDO ABRAHAM MD Work Phone: [facility] 01-07-2025 14:40-0400 Body mass index (BMI) [Ratio] 36.3 kg/m2 RICARDO ABRAHAM MD Work Phone: [facility] 01-07-2025 14:40-0400 Body weight 121.5 kg RICARDO ABRAHAM MD Work Phone: [facility] 01-07-2025 14:15-0400 Inhaled oxygen flow rate 4 L/min RICARDO ABRAHAM MD Work Phone: [facility] 12-31-2024 12:59-0400 Body height 185.4 cm [facility] TECHNICIAN BIOLOGICAL HEALTH.GEAR GRINDING MACHINE OPERATOR Work Phone: [facility] 12-31-2024 12:59-0400 Body mass index (BMI) [Ratio] 36.39 kg/m2 [facility] TECHNICIAN BIOLOGICAL HEALTH.GEAR GRINDING MACHINE OPERATOR Work Phone: [facility] 12-31-2024 12:59-0400 Body weight 125.1 kg [facility] TECHNICIAN BIOLOGICAL HEALTH.GEAR GRINDING MACHINE OPERATOR Work Phone: [facility] 12-31-2024 12:59-0400 Diastolic blood pressure 71 mm[Hg] [facility] TECHNICIAN BIOLOGICAL HEALTH.GEAR GRINDING MACHINE OPERATOR Work Phone: [facility] 12-31-2024 12:59-0400 Heart rate 63 /min [facility] TECHNICIAN BIOLOGICAL HEALTH.[facility] Work Phone: [facility] 12-31-2024 12:59-0400 Respiratory rate 16 /min [facility] TECHNICIAN BIOLOGICAL HEALTH.[facility] Work Phone: [facility] 12-31-2024 12:59-0400 SaO2% (BldA) [Mass fraction] 96 % [facility] TECHNICIAN BIOLOGICAL HEALTH.GEAR GRINDING MACHINE OPERATOR Work Phone: [facility] 12-31-2024 12:59-0400 Systolic blood pressure 100 mm[Hg] [facility] TECHNICIAN BIOLOGICAL HEALTH.[facility] Work Phone: [facility] 07-02-2024 13:01-0500 Body mass index (BMI) [Ratio] 37.81 kg/m2 [facility] TECHNICIAN BIOLOGICAL HEALTH.[facility] Work Phone: [facility] 07-02-2024 13:01-0500 Body weight 130 kg [facility] TECHNICIAN BIOLOGICAL HEALTH.GEAR GRINDING MACHINE OPERATOR Work Phone: [facility] 07-02-2024 13:01-0500 Diastolic blood pressure 81 mm[Hg] [facility] TECHNICIAN BIOLOGICAL HEALTH.[facility] Work Phone: [facility] 07-02-2024 13:01-0500 Heart rate 77 /min [facility] TECHNICIAN BIOLOGICAL HEALTH.[facility] Work Phone: [facility] 07-02-2024 13:01-0500 SaO2% (BldA) [Mass fraction] 96 % [facility] TECHNICIAN BIOLOGICAL HEALTH.GEAR GRINDING MACHINE OPERATOR Work Phone: [facility] 07-02-2024 13:01-0500 Systolic blood pressure 144 mm[Hg] [facility] TECHNICIAN BIOLOGICAL HEALTH.[facility] Work Phone: [facility] 12-31-2023 12:55-0400 Body height 185.4 cm [facility] TECHNICIAN BIOLOGICAL HEALTH.[facility] Work Phone: [facility] 12-31-2023 12:55-0400 Body mass index (BMI) [Ratio] 42.12 kg/m2 [facility] TECHNICIAN BIOLOGICAL HEALTH.GEAR GRINDING MACHINE OPERATOR Work Phone: [facility] 12-31-2023 12:55-0400 Body weight 144.8 kg [facility] TECHNICIAN BIOLOGICAL HEALTH.GEAR GRINDING MACHINE OPERATOR Work Phone: [facility] 12-31-2023 12:55-0400 Diastolic blood pressure 97 mm[Hg] [facility] TECHNICIAN BIOLOGICAL HEALTH.GEAR GRINDING MACHINE OPERATOR Work Phone: [facility] 12-31-2023 12:55-0400 Heart rate 68 /min [facility] TECHNICIAN BIOLOGICAL HEALTH.GEAR GRINDING MACHINE OPERATOR Work Phone: [facility] 12-31-2023 12:55-0400 SaO2% (BldA) [Mass fraction] 95 % [facility] TECHNICIAN BIOLOGICAL HEALTH.GEAR GRINDING MACHINE OPERATOR Work Phone: [facility] 12-31-2023 12:55-0400 Systolic blood pressure 148 mm[Hg] [facility] TECHNICIAN BIOLOGICAL HEALTH.GEAR GRINDING MACHINE OPERATOR Work Phone: [facility] 12-11-2023 14:46-0400 Diastolic blood pressure 71 mm[Hg] Reji Mansfield MD Work Phone: [facility] 12-11-2023 14:46-0400 Heart rate 49 /min Reji Mansfield MD Work Phone: [facility] 12-11-2023 14:46-0400 Respiratory rate 20 /min Reji Mansfield MD Work Phone: [facility] 12-11-2023 14:46-0400 SaO2% (BldA) [Mass fraction] 96 % Reji Mansfield MD Work Phone: [facility] 12-11-2023 14:46-0400 Systolic blood pressure 122 mm[Hg] Reji Mansfield MD Work Phone: [facility] 12-11-2023 10:49-0400 Body temperature 96.8 [degF] Reji Mansfield MD Work Phone: [facility] 12-06-2023 13:26-0400 Body height 185.4 cm Pacc 1 Work Phone: [facility] 12-06-2023 13:26-0400 Body mass index (BMI) [Ratio] 41.56 kg/m2 Pacc 1 Work Phone: [facility] 12-06-2023 13:26-0400 Body temperature 96.49 [degF] Pacc 1 Work Phone: [facility] 12-06-2023 13:26-0400 Body weight 142.88 kg Pacc 1 Work Phone: [facility] 12-06-2023 13:26-0400 Diastolic blood pressure 72 mm[Hg] Pacc 1 Work Phone: [facility] 12-06-2023 13:26-0400 Heart rate 68 /min Pacc 1 Work Phone: [facility] 12-06-2023 13:26-0400 Respiratory rate 14 /min Pacc 1 Work Phone: [facility] 12-06-2023 13:26-0400 SaO2% (BldA) [Mass fraction] 96 % Pacc 1 Work Phone: [facility] 12-06-2023 13:26-0400 Systolic blood pressure 122 mm[Hg] Pacc 1 Work Phone: [facility] 07-18-2023 12:15-0400 Body temperature 98 [degF] MD RICARDO ABRAHAM Work Phone: [facility] 07-18-2023 12:15-0400 Diastolic blood pressure 77 mm[Hg] MD RICARDO ABRAHAM Work Phone: [facility] 07-18-2023 12:15-0400 Heart rate 86 /min MD RICARDO ABRAHAM Work Phone: [facility] 07-18-2023 12:15-0400 Respiratory rate 18 /min MD RICARDO ABRAHAM Work Phone: [facility] 07-18-2023 12:15-0400 SaO2% (BldA) [Mass fraction] 95 % MD RICARDO ABRAHAM Work Phone: [facility] 07-18-2023 12:15-0400 Systolic blood pressure 140 mm[Hg] MD RICARDO ABRAHAM Work Phone: [facility] 07-18-2023 08:11-0400 Body temperature 97.9 [degF] MD RICARDO ABRAHAM Work Phone: [facility] 07-18-2023 08:11-0400 Diastolic blood pressure 67 mm[Hg] MD RICARDO ABRAHAM Work Phone: [facility] 07-18-2023 08:11-0400 Heart rate 75 /min MD RICARDO ABRAHAM Work Phone: [facility] 07-18-2023 08:11-0400 Respiratory rate 18 /min MD RICARDO ABRAHAM Work Phone: [facility] 07-18-2023 08:11-0400 SaO2% (BldA) [Mass fraction] 98 % MD RICARDO ABRAHAM Work Phone: [facility] 07-18-2023 08:11-0400 Systolic blood pressure 143 mm[Hg] MD RICARDO ABRAHAM Work Phone: [facility] 07-17-2023 16:23-0400 Body height 182.88 cm MD RICARDO ABRAHAM Work Phone: [facility] 07-17-2023 16:23-0400 Body mass index (BMI) [Ratio] 44.5 kg/m2 MD RICARDO ABRAHAM Work Phone: [facility] 07-17-2023 16:23-0400 Body weight 149 kg MD RICARDO ABRAHAM Work Phone: [facility] 07-17-2023 13:00-0400 Inhaled oxygen flow rate 4 L/min MD RICARDO ABRAHAM Work Phone: [facility] 12-21-2022 11:28-0400 Body temperature 98.3 [degF] [facility] 12-21-2022 11:28-0400 Diastolic blood pressure 61 mm[Hg] [facility] 12-21-2022 11:28-0400 Heart rate 69 /min [facility] 12-21-2022 11:28-0400 Respiratory rate 16 /min [facility] 12-21-2022 11:28-0400 SaO2% (BldA) [Mass fraction] 92 % [facility] 12-21-2022 11:28-0400 Systolic blood pressure 117 mm[Hg] [facility] 12-21-2022 07:03-0400 Body height 185.42 cm [facility] 12-21-2022 07:03-0400 Body mass index (BMI) [Ratio] 42.6 kg/m2 [facility] 12-21-2022 07:03-0400 Body weight 146.51 kg [facility] 08-24-2022 11:57-0400 Body height 185.4 cm [facility] TECHNICIAN BIOLOGICAL HEALTH.GEAR GRINDING MACHINE OPERATOR Work Phone: [facility] 08-24-2022 11:57-0400 Body weight 152.86 kg [facility] TECHNICIAN BIOLOGICAL HEALTH.GEAR GRINDING MACHINE OPERATOR Work Phone: [facility] 08-24-2022 11:57-0400 Diastolic blood pressure 78 mm[Hg] [facility] TECHNICIAN BIOLOGICAL HEALTH.GEAR GRINDING MACHINE OPERATOR Work Phone: [facility] 08-24-2022 11:57-0400 Heart rate 73 /min [facility] TECHNICIAN BIOLOGICAL HEALTH.GEAR GRINDING MACHINE OPERATOR Work Phone: [facility] 08-24-2022 11:57-0400 SaO2% (BldA) [Mass fraction] 97 % [facility] TECHNICIAN BIOLOGICAL HEALTH.GEAR GRINDING MACHINE OPERATOR Work Phone: [facility] 08-24-2022 11:57-0400 Systolic blood pressure 127 mm[Hg] [facility] TECHNICIAN BIOLOGICAL HEALTH.GEAR GRINDING MACHINE OPERATOR Work Phone: [facility] 06-29-2022 11:57-0500 Body height 185.4 cm [facility] TECHNICIAN BIOLOGICAL HEALTH.GEAR GRINDING MACHINE OPERATOR Work Phone: [facility] 06-29-2022 11:57-0500 Body [facility].GEAR GRINDING MACHINE OPERATOR Work Phone: [facility] 06-29-2022 11:57-0500 Diastolic blood pressure 74 mm[Hg] [facility] BIOLOG[facility] HE[facility].GEAR GRINDING MACHINE OPERATOR Work Phone: [facility] 06-29-2022 11:57-0500 Heart rate 78 /min [facility] TECHNICIAN BIOLOGICAL HEALTH.GEAR GRINDING MACHINE OPERATOR Work Phone: [facility] 06-29-2022 11:57-0500 SaO2% (BldA) [Mass fraction] 98 % [facility] TECHNICIAN BIOLOGICAL HEALTH.GEAR GRINDING MACHINE OPERATOR Work Phone: [facility] 06-29-2022 11:57-0500 Systolic blood pressure 131 mm[Hg] [facility] TECHNICIAN BIOLOGICAL HEALTH.GEAR GRINDING MACHINE OPERATOR Work Phone: [facility] 06-01-2022 12:20-0500 Body temperature 98.1 [degF] [facility] 06-01-2022 12:20-0500 Diastolic blood pressure 64 mm[Hg] [facility] 06-01-2022 12:20-0500 Heart rate 68 /min [facility] 06-01-2022 12:20-0500 Respiratory rate 16 /min [facility] 06-01-2022 12:20-0500 SaO2% (BldA) [Mass fraction] 95 % [facility] 06-01-2022 12:20-0500 Systolic blood pressure 112 mm[Hg] [facility] 06-01-2022 09:51-0500 Body height 185.42 cm [facility] 06-01-2022 09:51-0500 Body mass index (BMI) [Ratio] 46.5 kg/m2 [facility] 06-01-2022 09:51-0500 Body weight 160.11 kg [facility] 05-25-2022 12:13-0500 Body height 180.6 cm [facility] TECHNICIAN BIOLOGICAL HEALTH.GEAR GRINDING MACHINE OPERATOR Work Phone: [facility] 05-25-2022 12:13-0500 Body weight 154.22 kg [facility] TECHNICIAN BIOLOGICAL HEALTH.GEAR GRINDING MACHINE OPERATOR Work Phone: [facility] 05-25-2022 12:13-0500 Diastolic blood pressure 81 mm[Hg] [facility] TECHNICIAN BIOLOGICAL HEALTH.GEAR GRINDING MACHINE OPERATOR Work Phone: [facility] 05-25-2022 12:13-0500 Heart rate 75 /min [facility] TECHNICIAN BIOLOGICAL HEALTH.GEAR GRINDING MACHINE OPERATOR Work Phone: [facility] 05-25-2022 12:13-0500 Respiratory rate 16 /min [facility] TECHNICIAN BIOLOGICAL HEALTH.GEAR GRINDING MACHINE OPERATOR Work Phone: [facility] 05-25-2022 12:13-0500 SaO2% (BldA) [Mass fraction] 94 % [facility] TECHNICIAN BIOLOGICAL HEALTH.GEAR GRINDING MACHINE OPERATOR Work Phone: [facility] 05-25-2022 12:13-0500 Systolic blood pressure 122 mm[Hg] [facility] TECHNICIAN BIOLOGICAL HEALTH.GEAR GRINDING MACHINE OPERATOR Work Phone: [facility] 05-15-2022 11:01-0500 Body temperature 96 [degF] [facility] 05-15-2022 11:01-0500 Diastolic blood pressure 68 mm[Hg] [facility] 05-15-2022 11:01-0500 Heart rate 80 /min [facility] 05-15-2022 11:01-0500 Respiratory rate 18 /min [facility] 05-15-2022 11:01-0500 Systolic blood pressure 119 mm[Hg] [facility] 05-01-2022 11:35-0500 Body temperature 97.8 [degF] [facility] 05-01-2022 11:35-0500 Diastolic blood pressure 84 mm[Hg] [facility] 05-01-2022 11:35-0500 Heart rate 84 /min [facility] 05-01-2022 11:35-0500 Respiratory rate 16 /min [facility] 05-01-2022 11:35-0500 Systolic blood pressure 146 mm[Hg] [facility] 04-03-2022 11:11-0500 Body temperature 96.9 [degF] [facility] 04-03-2022 11:11-0500 Diastolic blood pressure 72 mm[Hg] [facility] 04-03-2022 11:11-0500 Heart rate 87 /min [facility] 04-03-2022 11:11-0500 Respiratory rate 20 /min [facility] 04-03-2022 11:11-0500 Systolic blood pressure 131 mm[Hg] [facility] 02-27-2022 11:30-0400 Body temperature 97.2 [degF] [facility] 02-27-2022 11:30-0400 Diastolic blood pressure 78 mm[Hg] [facility] 02-27-2022 11:30-0400 Heart rate 82 /min [facility] 02-27-2022 11:30-0400 Systolic blood pressure 126 mm[Hg] [facility] 02-06-2022 11:29-0400 Respiratory rate 16 /min [facility] 01-10-2022 14:21-0400 Body temperature 96.7 [degF] [facility] Work Phone: 01-10-2022 14:21-0400 Diastolic blood pressure 82 mm[Hg] [facility] Work Phone: 01-10-2022 14:21-0400 Heart rate 77 /min [facility] Work Phone: 01-10-2022 14:21-0400 Respiratory rate 20 /min [facility] Work Phone: 01-10-2022 14:21-0400 Systolic blood pressure 169 mm[Hg] [facility] Work Phone: 01-03-2022 14:51-0400 Body temperature 97.1 [degF] [facility] Work Phone: 01-03-2022 14:51-0400 Diastolic blood pressure 77 mm[Hg] [facility] Work Phone: 01-03-2022 14:51-0400 Heart rate 77 /min [facility] Work Phone: 01-03-2022 14:51-0400 Respiratory rate 18 /min [facility] Work Phone: 01-03-2022 14:51-0400 Systolic blood pressure 165 mm[Hg] [facility] Work Phone: 11-29-2021 14:30-0400 Body temperature 96.6 [degF] [facility] Work Phone: 11-29-2021 14:30-0400 Diastolic blood pressure 70 mm[Hg] [facility] Work Phone: 11-29-2021 14:30-0400 Heart rate 75 /min [facility] Work Phone: 11-29-2021 14:30-0400 Respiratory rate 16 /min [facility] Work Phone: 11-29-2021 14:30-0400 Systolic blood pressure 132 mm[Hg] [facility] Work Phone: 11-15-2021 13:58-0400 Diastolic blood pressure 49 mm[Hg] [facility] Work Phone: 11-15-2021 13:58-0400 Heart rate 77 /min [facility] Work Phone: 11-15-2021 13:58-0400 Respiratory rate 16 /min [facility] Work Phone: 11-15-2021 13:58-0400 Systolic blood pressure 124 mm[Hg] [facility] Work Phone: 11-14-2021 14:04-0400 Body height 180.6 cm Sharlene Escobar TECHNICIAN BIOLOGICAL HEALTH.GEAR GRINDING MACHINE OPERATOR Work Phone: [facility] 11-14-2021 14:04-0400 Body weight 158.31 kg Sharlene Escobar TECHNICIAN BIOLOGICAL HEALTH.GEAR GRINDING MACHINE OPERATOR Work Phone: [facility] 11-14-2021 14:04-0400 Diastolic blood pressure 71 mm[Hg] [facility] TECHNICIAN BIOLOGICAL HEALTH.[facility] Work Phone: [facility] 11-14-2021 14:04-0400 Heart rate 76 /min [facility] TECHNICIAN BIOLOGICAL HEALTH.GEAR GRINDING MACHINE OPERATOR Work Phone: [facility] 11-14-2021 14:04-0400 SaO2% (BldA) [Mass fraction] 94 % [facility] TECHNICIAN BIOLOGICAL HEALTH.GEAR GRINDING MACHINE OPERATOR Work Phone: [facility] 11-14-2021 14:04-0400 Systolic blood pressure 118 mm[Hg] [facility] TECHNICIAN BIOLOGICAL HEALTH.[facility] Work Phone: [facility] 11-03-2021 00:15-0400 Body temperature 98.3 [degF] [facility] Work Phone: 11-01-2021 14:04-0400 Body temperature 98.3 [degF] [facility] Work Phone: 11-01-2021 14:04-0400 Diastolic blood pressure 72 mm[Hg] [facility] Work Phone: 11-01-2021 14:04-0400 Heart rate 75 /min [facility] Work Phone: 11-01-2021 14:04-0400 Respiratory rate 18 /min [facility] Work Phone: 11-01-2021 14:04-0400 Systolic blood pressure 136 mm[Hg] [facility] Work Phone: 09-27-2021 13:19-0400 Body temperature 98.2 [degF] [facility] Work Phone: 09-27-2021 13:19-0400 Diastolic blood pressure 78 mm[Hg] [facility] Work Phone: 09-27-2021 13:19-0400 Heart rate 86 /min [facility] Work Phone: 09-27-2021 13:19-0400 Respiratory rate 20 /min [facility] Work Phone: 09-27-2021 13:19-0400 Systolic blood pressure 134 mm[Hg] [facility] Work Phone: 09-20-2021 13:36-0400 Body temperature 96.9 [degF] [facility] Work Phone: 09-20-2021 13:36-0400 Diastolic blood pressure 69 mm[Hg] [facility] Work Phone: 09-20-2021 13:36-0400 Heart rate 89 /min [facility] Work Phone: 09-20-2021 13:36-0400 Systolic blood pressure 149 mm[Hg] [facility] Work Phone: 09-13-2021 13:58-0400 Respiratory rate 22 /min [facility] Work Phone: 08-30-2021 13:08-0400 Body temperature 97 [degF] [facility] Work Phone: 08-30-2021 13:08-0400 Diastolic blood pressure 85 mm[Hg] [facility] Work Phone: 08-30-2021 13:08-0400 Heart rate 74 /min [facility] Work Phone: 08-30-2021 13:08-0400 Respiratory rate 16 /min [facility] Work Phone: 08-30-2021 13:08-0400 Systolic blood pressure 147 mm[Hg] [facility] Work Phone: 10-07-2020 12:47-0400 Diastolic blood pressure 69 mm[Hg] Meredith Tinoco MD Work Phone: [facility] Work Phone: 10-07-2020 12:47-0400 Heart rate 72 [...] 18 /min Chalino Renetta DO Work Phone: [facility] Work Phone: 05-08-2019 15:18-0500 SaO2% (BldA) [Mass fraction] 96 % Chalino Jackson DO Work Phone: [facility] Work Phone: 05-08-2019 15:18-0500 Systolic blood pressure 118 mm[Hg] Chalino Jackson DO Work Phone: [facility] Work Phone: 05-08-2019 12:42-0500 Body temperature 98.6 [degF] Chalino Jackson DO Work Phone: [facility] Work Phone: Encounters Encounter Date Encounter Type Care Provider Facility Start: 03-10-2025 ambulatory [facility] Facility:[facility] Start: 01-14-2025 End: 01-15-2025 [facility] BIOLOGICAL HEALTH.[employer] 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 Start: 01-08-2025 Non-patient / Non-visit Dr. Meredith fuentes MD -[facility] Work Phone: Start: 01-07-2025 Non-patient / Non-visit Dr. Ann villa MD -[facility] Work Phone: Start: 01-07-2025 End: 01-08-2025 ambulatory Miguelito Spittkade Facility:[facility] Start: 01-07-2025 End: 01-08-2025 Evaluation and management of inpatient Dr. Meredith Momin MD -[facility] Work Phone: Start: 01-07-2025 End: 01-08-2025 observation encounter RICARDO ABRAHAM MD Work Phone: -[facility] Start: 12-31-2024 End: 12-31-2024 Patient encounter procedure [facility] TECHNICIAN BIOLOGICAL HEALTH.GEAR GRINDING MACHINE OPERATOR Work Phone: Endocrinology Comment on above: Type [...] Essential hypertension; Mixed hyperlipidemia; Amyloidosis, unspecified type ([facility]); Obesity, Class II, BMI 35-39.9; Vitamin D deficiency Start: 12-31-2024 End: 12-31-2024 ambulatory SHARLENE ESCOBAR Facility:[facility] Start: 12-11-2024 End: 12-11-2024 ambulatory RICARDO ABRAHAM MD Work Phone: -[facility] Start: 12-11-2024 End: 12-11-[address] Miguelito Garcia DO -[facility] Work Phone: Start: 12-11-2024 End: 12-11-2024 ambulatory RICARDO ABRAHAM Facility:[facility] Start: 11-24-2024 End: 11-24-2024 ambulatory RICARDO ABRAHAM MD Work Phone: -[facility] Start: 11-24-2024 End: 11-24-2024 Patient encounter procedure Edu Haynes [facility]-C [facility] Work Phone: Start: 11-24-2024 End: 11-24-2024 ambulatory RICARDO ABRAHAM Facility:[facility] Start: 09-29-2024 End: 09-29-2024 ambulatory Sharlene Escobar TECHNICIAN BIOLOGICAL HEALTH.[employer] GRINDING MACHINE OPERATOR Work Phone: Endocrinology Comment on above: Meds Start: 07-30-2024 End: 07-30-2024 Telephone encounter Sharlene Escobar APRN.[facility] Work Phone: Endocrinology Comment on above: Office Notes ([facility] [place]) Start: 07-10-2024 End: 07-10-2024 Telephone encounter Sharlene Escobar TECHNICIAN BIOLOGICAL HEALTH.GEAR GRINDING MACHINE OPERATOR Work Phone: Endocrinology Comment on above: Medication Problem Start: 07-09-2024 End: 07-09-2024 Refill [facility] TECHNICIAN BIOLOGICAL HEALTH.[employer]AR GRINDING MACHINE OPERATOR Work Phone: Endocrinology Comment on above: Refill Request Start: 07-07-2024 End: 07-07-2024 Telephone encounter [facility] TECHNICIAN BIOLOGICAL HEALTH.GEAR GRINDING MACHINE OPERATOR Work Phone: Endocrinology Comment on above: PA--[employer] Start: 07-03-2024 End: 07-06-2024 ambulatory [facility] TECHNICIAN BIOLOGICAL HEALTH.GEAR GRINDING MACHINE OPERATOR Work Phone: Endocrinology Comment on above: Hematology Amyloidosis Start: 07-03-2024 End: 07-03-2024 Telephone encounter [facility] TECHNICIAN BIOLOGICAL HEALTH.GEAR GRINDING MACHINE OPERATOR Work Phone: Endocrinology Comment on above: PA--Tami Start: 07-02-2024 End: 07-02-2024 ambulatory [facility] Facility:[facility] Start: 07-02-2024 End: 07-02-2024 Patient encounter procedure [facility] TECHNICIAN BIOLOGICAL HEALTH.GEAR GRINDING MACHINE OPERATOR Work Phone: Endocrinology Comment on above: Type [...] function studies Start: 04-17-2024 End: 04-17-2024 ambulatory [facility] Facility:[facility] Start: 04-15-2024 End: 04-15-2024 ambulatory [facility] TECHNICIAN BIOLOGICAL HEALTH.[employer]ING MACHINE OPERATOR Work Phone: Endocrinology Comment on above: Sugars Start: 04-14-2024 End: 04-15-2024 ambulatory Sharlenearabella Kitchenc TECHNICIAN BIOLOGICAL HEALTH.GEAR GRINDING MACHINE OPERATOR Work Phone: Endocrinology Comment on above: Chacha amaya on Start: 04-09-2024 End: 04-13-2024 Telephone encounter Sharlene Kitchen TECHNICIAN BIOLOGICAL HEALTH.GEAR GRINDING MACHINE OPERATOR Work Phone: Endocrinology Comment on above: PA--FreeStyle Alonso 2 Sensors Start: 03-27-2024 ambulatory [facility] Facility:[facility] Start: 02-04-2024 End: 02-04-2024 Telephone encounter Kaila Ulloa RN Cardiology Comment on above: Results Start: 01-01-2024 End: 01-01-2024 Telephone encounter Sharlene Kitchen TECHNICIAN BIOLOGICAL HEALTH.GEAR GRINDING MACHINE OPERATOR Work Phone: Endocrinology Comment on above: PA--Loreta Millan U300 Start: 12-31-2023 End: 12-31-2023 Telephone encounter Sharlene Kitchen TECHNICIAN BIOLOGICAL HEALTH.GEAR GRINDING MACHINE OPERATOR Work Phone: Endocrinology Comment on above: Training Development Specialist - O ther Start: 12-31-2023 End: 12-31-2023 Patient encounter procedure Sharlene Kitchen TECHNICIAN BIOLOGICAL HEALTH.GEAR GRINDING MACHINE OPERATOR Work Phone: Endocrinology Comment on above: Type [...] Start: 12-27-2023 End: 12-27-2023 ambulatory Sharlenearabella Kitchenc TECHNICIAN BIOLOGICAL HEALTH.GEAR GRINDING MACHINE OPERATOR Work Phone: Endocrinology Comment on above: Alonso sensors Start: 12-24-2023 End: 12-24-2023 Patient encounter procedure Melissa Green PA-C Work Phone: Orthopaedics Comment on above: Bilateral carpal lamin amrit syndrome (Primary Dx) Start: 12-23-2023 End: 12-23-2023 Telephone encounter Melissa Green PA-C Work Phone: [address] [place] [address] Comment on above: Appointment Start: 12-11-2023 ambulatory REJI MANSFIELD Facility :[facility] Start: 12-11-2023 End: 12-11-2023 Subsequent hospital visit by physician Reji Mansfield MD Work Phone: [facility] Surgery Comment on above: Bilateral carpal lamin amrit syndrome [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] Start: 12-06-2023 Telephone encounter Yelitza Ly APRN.CNP Work Phone: Pre Anesthesia Comment on above: Request Outside [facility] Start: 12-06-2023 End: 12-06-2023 Admission to establishment [facility] Work Phone: Pre Anesthesia Start: 12-06-2023 End: 12-06-2023 Anesthesia consultation [facility] Work Phone: Pre Anesthesia Comment on [...] Pulmonary nodule; Smoker; 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; History of total knee replacement, right Start: 12-06-2023 End: 12-06-2023 Preprocedural examination done [facility] Work Phone: [facility] Work Phone: Start: 11-26-2023 Telephone encounter Reji villa MD Work Phone: Orthopaedics Comment on above: Schedule Surgery Start: 11-26-2023 End: 11-26-2023 Patient encounter procedure Reji Mansfield MD Work Phone: Orthopaedics Comment on above: Bilateral carpal lamin amrit syndrome (Primary Dx) Start: 11-25-2023 Refill Sharlene Kupie c TECHNICIAN BIOLOGICAL HEALTH.GEAR GRINDING MACHINE OPERATOR Work Phone: Endocrinology Comment on above: Med Change Request Start: 11-03-2023 Refill Sharlene Kupie c TECHNICIAN BIOLOGICAL HEALTH.GEAR GRINDING MACHINE OPERATOR Work Phone: Endocrinology Comment on above: Refill Request Start: 10-10-2023 Telephone encounter Sharlene garciac TECHNICIAN BIOLOGICAL HEALTH.GEAR GRINDING MACHINE OPERATOR Work Phone: Endocrinology Comment on above: office notes request ([facility]) Start: 10-01-2023 Telephone encounter Reji villa MD Work Phone: Orthopaedics Comment on above: Appointment Start: 09-27-2023 Telephone encounter Sharlene garciac TECHNICIAN BIOLOGICAL HEALTH.GEAR GRINDING MACHINE OPERATOR Work Phone: Endocrinology Comment on above: Dilated Eye Exam Rep ort ([facility]) Start: 09-01-2023 ambulatory Sharlene Kupie c TECHNICIAN BIOLOGICAL HEALTH.GEAR GRINDING MACHINE OPERATOR Work Phone: Endocrinology Comment on above: Mounjaro Start: 08-26-2023 ambulatory Sharlene Kupie c TECHNICIAN BIOLOGICAL HEALTH.GEAR GRINDING MACHINE OPERATOR Work Phone: Endocrinology Comment on above: Rybelsus Start: 08-22-2023 ambulatory Sharlene Kupie c TECHNICIAN BIOLOGICAL HEALTH.GEAR GRINDING MACHINE OPERATOR Work Phone: Endocrinology Comment on above: Mounjaro Start: 08-22-2023 Telephone encounter Sharlene garciac TECHNICIAN BIOLOGICAL HEALTH.GEAR GRINDING MACHINE OPERATOR Work Phone: Endocrinology Comment on above: Medication Problem Start: 08-21-2023 ambulatory Sharlene Kupie c TECHNICIAN BIOLOGICAL HEALTH.GEAR GRINDING MACHINE OPERATOR Work Phone: Endocrinology Comment on above: FreeStyle Alonso Start: 08-21-2023 E-mail encounter pedro m caregiver Sharlene Kitchenc TECHNICIAN BIOLOGICAL HEALTH.GEAR GRINDING MACHINE OPERATOR Work Phone: [facility] Start: 08-09-2023 End: 08-09-2023 ambulatory Emg 850) Neurology Comment on above: EMG Start: 08-09-2023 End: 08-09-2023 Patient encounter procedure Emg 2 Neur [facility] (Max Weight: 850) [facility] Start: 07-25-2023 Admission to [facility] Sharlene Escobar TECHNICIAN BIOLOGICAL HEALTH.GEAR GRINDING MACHINE OPERATOR Work Phone: Endocrinology Comment on above: Knee surgery Start: 07-25-2023 ambulatory Sharlene lisa TECHNICIAN BIOLOGICAL HEALTH.GEAR GRINDING MACHINE OPERATOR Work Phone: [facility] Start: 07-24-2023 Telephone encounter Sharlene pizano TECHNICIAN BIOLOGICAL HEALTH.GEAR GRINDING MACHINE OPERATOR Work Phone: Endocrinology Comment on above: PA--FIASP FLEXTOUCH (APPROVED) Start: 07-17-2023 Non-patient / Non-visit MD ERIC ABRAHAM Work Phone: [facility] Work Phone: Start: 07-17-2023 End: 07-18-2023 Evaluation and management of inpatient MD RICARDO ABRAHAM Work Phone: [facility]Medical Surgical 3 Work Phone: Start: 07-17-2023 End: 07-18-2023 observation encounter MD RICARDO ABRAHAM Work Phone: [facility] Work Phone: Start: 07-05-2023 End: 07-05-2023 ambulatory [facility] Work Phone: Start: 07-05-2023 End: 07-05-2023 Patient encounter procedure [facility]-Cat Scan, [facility] Work Phone: Start: 06-24-2023 Refill Sharlene lisa TECHNICIAN BIOLOGICAL HEALTH.GEAR GRINDING MACHINE OPERATOR Work Phone: Endocrinology Comment on above: Refill Request Asking Start: 06-24-2023 Refill Sharlene lisa TECHNICIAN BIOLOGICAL HEALTH.GEAR GRINDING MACHINE OPERATOR Work Phone: Endocrinology Comment on above: Refill Request Start: 06-18-2023 Orders Only Ricardo Abraham MD Neurol ogy Comment on above: Bilateral carpal lamin amrit syndrome (Primary Dx) Start: 06-04-2023 End: 06-04-2023 ambulatory MD RICARDO ABRAHAM Work Phone: [facility] Work Phone: Start: 06-04-2023 End: 06-04-2023 Discharged Recurring MD RICARDO ABRAHAM Work Phone: [facility]Physical Therapy Work Phone: Start: 06-04-2023 Registered Recurring [place] Work Phone: Start: 04-24-2023 End: 04-24-2023 ambulatory RICARDO ABRAHAM Facility:[facility] Start: 04-09-2023 Telephone encounter Sharlene pizano TECHNICIAN BIOLOGICAL HEALTH.GEAR GRINDING MACHINE OPERATOR Work Phone: Endocrinology Comment on above: Insurance Authorizat ion (Mounjaro 5 mg and 7.5 mg ) Start: 03-21-2023 End: 03-21-2023 ambulatory [facility] Work Phone: Start: 03-21-2023 End: 03-21-2023 Patient encounter procedure [facility]Radiology, [facility] Work Phone: Start: 03-08-2023 Telephone encounter Sharlene pizano TECHNICIAN BIOLOGICAL HEALTH.GEAR GRINDING MACHINE OPERATOR Work Phone: Endocrinology Comment on above: Diabetic Eye Exam (05/07/2022) Start: 02-22-2023 Telephone encounter Sharlene pizano TECHNICIAN BIOLOGICAL HEALTH.GEAR GRINDING MACHINE OPERATOR Work Phone: Endocrinology Comment on above: [facility] (Request for last office note) Start: 01-10-2023 End: 01-10-2023 ambulatory [facility] Work Phone: Start: 01-10-2023 End: 01-10-2023 Patient encounter procedure [facility]Laboratory, Spec[facility] Work Phone: Start: 12-21-2022 End: 12-21-2022 Admission to same day surgery center [facility] Comment on above: Surgery today [facility] Start: 12-21-2022 End: 12-21-2022 ambulatory Sharlene Escobar TECHNICIAN BIOLOGICAL HEALTH.GEAR GRINDING MACHINE OPERATOR Work Phone: [facility] Work Phone: Start: 12-10-2022 End: 12-10-2022 ambulatory [facility] Work Phone: Start: 12-10-2022 End: 12-10-2022 Patient encounter procedure [facility], [place] Work Phone: Start: 11-09-2022 Telephone encounter Sharlene pizano TECHNICIAN BIOLOGICAL HEALTH.GEAR GRINDING MACHINE OPERATOR Work Phone: Endocrinology Comment on above: KEVIN--Mario Start: 08-24-2022 End: 08-24-2022 Patient encounter procedure Sharlene Escobar TECHNICIAN BIOLOGICAL HEALTH.GEAR GRINDING MACHINE OPERATOR Work Phone: Endocrinology Comment on above: Type [...] type (HCC) Start: 08-14-2022 End: 08-14-2022 ambulatory [facility] Work Phone: Start: 08-14-2022 End: 08-14-2022 Patient encounter procedure [facility], [facility] Start: 06-29-2022 End: 06-29-2022 Patient encounter procedure Sharlenefozia Escobar TECHNICIAN BIOLOGICAL HEALTH.GEAR GRINDING MACHINE OPERATOR Work Phone: Endocrinology Comment on above: Type [...] type (HCC) Start: 06-20-2022 ambulatory Sharlene lisa TECHNICIAN BIOLOGICAL HEALTH.GEAR GRINDING MACHINE OPERATOR Work Phone: Endocrinology Comment on above: Insulin Calls Start: 06-19-2022 ambulatory Sharlene lisa TECHNICIAN BIOLOGICAL HEALTH.GEAR GRINDING MACHINE OPERATOR Work Phone: Endocrinology Comment on above: Insulin liber 2 Start: 06-08-2022 End: 06-08-2022 ambulatory [facility] Work Phone: Start: 06-08-2022 End: 06-08-2022 Patient encounter procedure [facility]Cardiovascul[facility] r Services Start: 06-04-[address] [facility] Sharlene Escobar TECHNICIAN BIOLOGICAL HEALTH.GEAR GRINDING MACHINE OPERATOR Work Phone: Endocrinology Comment on above: Toe surgery Start: 06-04-2022 ambulatory Sharlene lisa TECHNICIAN BIOLOGICAL HEALTH.GEAR GRINDING MACHINE OPERATOR Work Phone: Endocrinology Comment on above: Meter and insulin Start: 06-03-2022 ambulatory Sharlenearabella lisa TECHNICIAN BIOLOGICAL HEALTH.GEAR GRINDING MACHINE OPERATOR Work Phone: Endocrinology Comment on above: Meter and insulin Start: 06-01-2022 End: 06-01-2022 Admission to same day surgery [facility] Start: 06-01-2022 End: 06-01-2022 ambulatory [facility] Work Phone: Start: 05-30-2022 Refill Sharlene lisa TECHNICIAN BIOLOGICAL HEALTH.GEAR GRINDING MACHINE OPERATOR Work Phone: Endocrinology Comment on above: Refill Request request of Office no henry ([facility]) Start: 05-25-2022 Telephone encounter Sharlene piznao TECHNICIAN BIOLOGICAL HEALTH.GEAR GRINDING MACHINE OPERATOR Work Phone: Endocrinology Comment on above: Diabetic Eye Exam Start: 05-25-2022 End: 05-25-2022 Patient encounter procedure Sharlene Escobar TECHNICIAN BIOLOGICAL HEALTH.GEAR GRINDING MACHINE OPERATOR Work Phone: Endocrinology Comment on above: Type 2 diabetes phcu itus with diabetic polyneuropathy, with long-term current use of insulin (HCC) (Primary Dx); 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d by mild nonproliferative retinopathy and macular edema, with long-term current use of insulin ([facility]); Vitamin D deficiency; Essential hypertension; Mixed hyperlipidemia; Class 3 severe obesity with serious comorbidity and body mass index (BMI) of 45.0 to 49.9 in adult, unspecified obesity type ([facility]) Start: 05-15-2022 End: 05-15-2022 ambulatory [facility] Work Phone: Start: 05-15-2022 End: 05-15-2022 Discharged Recurring [facility] Start: 05-01-2022 End: 05-05-2022 [facility] Work Phone: Start: 05-01-2022 End: 05-05-2022 Discharged Recurring [facility] Start: 04-03-2022 End: 04-04-2022 [facility] Work Phone: Start: 04-03-2022 End: 04-04-2022 Discharged Recurring [facility] Start: 02-27-2022 End: 03-05-2022 [facility] Work Phone: Start: 02-27-2022 End: 03-05-2022 [facility] Start: 02-20-2022 ambulatory Sharlene lisa APRN.CNP Work Phone: [facility] Start: 02-20-2022 Patient encounter procedure Sharlene Escobar APRN.GEAR GRINDING MACHINE OPERATOR Work Phone: Endocrinology Comment on above: Unable to make appoi ntment today Start: 01-10-2022 End: 02-02-2022 [facility] Work Phone: Start: 01-10-2022 End: 02-02-2022 [facility] Start: 01-07-2022 Refill Sharlene lisa APRN.CNP Work Phone: Endocrinology Comment on above: Refill Request Start: 01-03-2022 End: 01-03-2022 ambulatory [facility] Work Phone: Start: 01-03-2022 End: 01-03-2022 Discharged Recurring [facility] Start: 11-29-2021 End: 12-03-2021 Discharged Recurring [facility] Start: 11-17-2021 End: 11-17-2021 Patient encounter procedure [facility] Start: 11-15-2021 [facility] Start: 11-14-2021 End: 11-14-2021 Patient encounter procedure Sharlene Escobar TECHNICIAN BIOLOGICAL HEALTH.GEAR GRINDING MACHINE OPERATOR Work Phone: Endocrinology Comment on above: Type [...] (Ozempic) Start: 11-01-2021 End: 11-02-2021 [facility] Start: 10-09-2021 Refill Sharlene lisa APRN.GEAR GRINDING MACHINE OPERATOR Work Phone: Endocrinology Comment on above: Refill Request Start: 09-27-2021 End: 10-03-2021 Discharged Recurring [facility] Start: 09-20-2021 [facility] Start: 09-19-2021 End: 09-19-2021 Patient encounter procedure [facility] Start: 08-30-2021 End: 09-02-2021 [facility] Start: 08-18-2021 Telephone encounter Sharlene pizano APRN.GEAR GRINDING MACHINE OPERATOR Work Phone: Endocrinology Comment on above: Insurance Authorizat ion (Trulicity) Start: 10-07-2020 End: 10-07-2020 Emergency department patient visit Meredith Tinoco MD Work Phone: [facility] Comment on above: Diabetic foot infect ion (HCC) (Primary Dx) Start: 05-08-2019 End: 05-08-2019 Emergency department patient visit Chalino Jackson Work Phone: [facility] Comment on above: Septicemia (HCC) (Pr imary Dx); Altered metabolism due to diabetes (HCC); Pneumonia due to organism; COPD exacerbation (HCC); Left against medical advice Start: 12-30-2017 End: 12-31-2017 ambulatory UNKNOWN PROVIDER Facility:[facility] Start: 12-05-2017 Patient encounter Leitcia Laujanna Henriquez [facility] Start: 12-05-2017 Patient encounter REFERRED *SELF Fac ility:[id number] Start: 11-14-2017 Patient encounter [facility] Start: 11-14-2017 Patient encounter REFERRED *SELF Fac ility:[id number] Start: 09-03-2017 Patient encounter Evelinkimberly Esteseneaux Facility:[id number] Start: 08-02-2017 Patient encounter Evelinkimberly Raygoza Facility:[id number] Start: 07-05-2017 Patient encounter Evelin Destiny Idalmis Facility:[id number] Start: 06-07-2017 Patient encounter Evelin Destiny Idalmis Facility:[id number] Start: 05-09-2017 Patient encounter Evelinkimberly Estseeneaux Facility:[id number] Start: 04-11-2017 Patient encounter Evelin Destiny [...] 12-31-2024 Hemoglobin A1c/Hemoglobin.total in Blood Sharlene Imtiazc TECHNICIAN BIOLOGICAL HEALTH.GEAR GRINDING MACHINE OPERATOR Work Phone: Start: 12-11-2024 Methicillin resistant Staphylococcus aureus screening test RICARDO ABRAHAM MD Work Phone: Start: 12-11-2024 CT of upper limb without contrast RICARDO ABRAHAM MD Work Phone: Start: 11-24-2024 MRI of joint of lower extremity RICARDO ABRAHAM MD Work Phone: Start: 07-02-2024 Hemoglobin A1c/Hemoglobin.total in Blood Sharlene Gisellaiec TECHNICIAN BIOLOGICAL HEALTH.GEAR GRINDING MACHINE OPERATOR Work Phone: Start: 12-31-2023 Hemoglobin A1c/Hemoglobin.total in Blood Sharlene Gisellaiec TECHNICIAN BIOLOGICAL HEALTH.GEAR GRINDING MACHINE OPERATOR Work Phone: Start: 12-11-2023 Gluc bld gluc [...] 08-24-2022 Hemoglobin A1c/Hemoglobin.total in Blood Sharlene Escobar TECHNICIAN BIOLOGICAL HEALTH.GEAR GRINDING MACHINE OPERATOR Work Phone: Start: 06-01-2022 Arthroplasty of toe Start: 06-01-2022 Fluoroscopic guidance Start: 06-01-2022 X-ray of both feet Start: 05-25-2022 Hemoglobin A1c/Hemoglobin.total in Blood Sharlene Escobar TECHNICIAN BIOLOGICAL HEALTH.GEAR GRINDING MACHINE OPERATOR Work Phone: Start: 11-17-2021 MRI of joint of lower extremity Start: 11-14-2021 Hemoglobin A1c/Hemoglobin.total in Blood Sharlene Escobar TECHNICIAN BIOLOGICAL HEALTH.GEAR GRINDING MACHINE OPERATOR Work Phone: Start: 10-07-2020 Radex foot complete [...] EVAL/TREAT SERVICE RQST UNKNOWN PROVIDER Start: 12-30-2017 [facility] WEIGHT [facility]NAG[facility] SERVICE REQUEST UNKNOWN PROVIDER Start: 11-01-2015 Colonoscopy Sharlene Escobar TECHNICIAN BIOLOGICAL HEALTH.GEAR GRINDING MACHINE OPERATOR Work Phone: Anaerobic microbial culture H/O: artificial joint Status pos t total shoulder arthroplasty RICARDO ABRAHAM MD Work Phone: H/O: artificial joint Status pos t total shoulder arthroplasty Dr. Meredith Momin MD Investigation of transfusion reaction Investigation of transfusion reaction Microbial culture, routine Microbial culture, routine Plan of Treatment Date Care Activity Detail Author Start: 10-31-2025 Colonoscopy COLONOSCOPY [facility] Start: 10-31-2025 COLORECTAL CANCER SCREENING COLORECTAL CANCER SCREENING [facility] Start: 10-31-2025 Screening for malignant neoplasm of colon [facility] Start: 07-08-2025 End: 07-08-2025 Patient encounter procedure 07/08/2025 1:00 PM EST Office Visit Endocrinology [address] [address] Sharlene Escobar, TECHNICIAN BIOLOGICAL HEALTH.GEAR GRINDING MACHINE OPERATOR [address] [address] 6m follow up Endocrinology Comment on above: 6m follow up Start: 07-03-2025 Hemoglobin A1c measurement HbA1C [facility] Start: 01-08-2025 Patient discharge [facility] Start: 01-08-2025 Referral to service [facility] Start: 01-08-2025 Wound care [facility] Start: 01-07-2025 Care regimes management [facility] Start: 01-07-2025 Notification of physician [facility] Start: 01-07-2025 [facility] Start: 01-07-2025 Consultation for treatment [facility] Start: 01-07-2025 Following clinical pathway protocol [facility] Start: 01-07-2025 Admission procedure [facility] Start: 01-07-2025 Consultation [facility] Start: 01-07-2025 Ambulation therapy management [facility] Start: 01-07-2025 Application of device [facility] Start: 01-07-2025 Assessment of risk of venous thromboembolism [facility] Start: 01-07-2025 Catheterization of vein [facility] Start: 09-04-2025 Following clinical pathway protocol [facility] Start: 01-07-2025 Incentive spirometry [facility] Start: 01-07-2025 Introduction of urinary catheter [facility] Start: 01-07-2025 Measuring intake and output [facility] Start: 01-07-2025 Neurovascular assessment [facility] Start: 01-07-2025 Patient education [facility] Start: 01-07-2025 Procedure discontinued [facility] Start: 01-07-2025 Provision of activity privileges [facility] Start: 01-07-2025 Referral to occupational therapist [facility] Start: 01-07-2025 Vital signs measurements [facility] Start: 01-07-2025 Wound care [facility] Start: 01-07-2025 End: 01-07-2025 [facility] Start: 01-07-2025 Consultation [facility] Start: 01-04-2025 Influenza vaccination [facility] Start: 12-31-2024 End: 12-31-2024 Patient encounter procedure 12/31/2024 1:00 PM EDT Office Visit Endocrinology [address] [address] Sharlene Escobar APRN.GEAR GRINDING MACHINE OPERATOR [address] [address] 6 month follow up Endocrinology Comment on above: 6 month follow up Start: 12-30-2024 Hemoglobin A1c measurement HbA1C [facility] Start: 12-05-2024 BP Controlled (<130/80) BP Controlled (<130/80) [facility] Start: 09-25-2024 Glaucoma screening Dilated Retinal Exam [facility] Start: 07-14-2024 End: 07-14-2024 [facility] visit new patient 07/14/2024 1:20 PM EDT Visit (SP) Office Hematology/Oncology [address] [address] [place] [address] [place] [address] new patient Hematology/Oncology Comment on above: new patient Start: 07-10-2024 End: 07-10-2024 ambulatory 07/10/2024 1:30 PM EST Results Only [facility] [address] [place] [address] [facility] Start: 07-03-2024 End: 10-02-2024 25-hydroxyvitamin D3 [Mass/volume] in Serum or Plasma VITAMIN D 25 HYDROXY Lab Routine Vitamin D deficiency Expected: 07/03/2024 (Approximate), Expires: 10/02/2024 [facility] Comment on above: Expected: 07/03/2024 (Approximate), Expi [...] insulin (HCC) Expected: 07/03/2024 (Approximate), Expires: 10/02/2024 [facility] Work Phone: Comment on above: Expected: [...] insulin (HCC) Expected: 07/03/2024 (Approximate), Expires: 10/02/2024 [facility] Comment on above: Expected: 07/03/2024 (Approximate), Expi [...] insulin (HCC) Expected: 07/03/2024 (Approximate), Expires: 10/02/2024 [facility] Comment on above: Expected: 07/03/2024 (Approximate), Expi [...] function studies Expected: 07/03/2024 (Approximate), Expires: 10/02/2024 [facility] Comment on above: Expected: 07/03/2024 (Approximate), Expi [...] function studies Expected: 07/03/2024 (Approximate), Expires: 10/02/2024 [facility] Comment on above: Expected: 07/03/2024 (Approximate), Expi res: 10/02/2024 Start: 07-02-2024 Hemoglobin A1c measurement HbA1C [facility] Start: 07-02-2024 End: 07-02-2024 Patient encounter procedure 07/02/2024 1:00 PM EST Office Visit Endocrinology [address] [address] Sharlene Escobar, DANN.GEAR GRINDING MACHINE OPERATOR [address] [address] 6 month follow up Endocrinology Comment on above: 6 month follow up Start: 04-24-2024 Hepatitis B screening Urine Albumin:Creatinine Ratio [facility] Start: 04-24-2024 Hepatitis B surface antibody level LDL Cholesterol [facility] Start: 03-07-2024 Glaucoma screening Dilated Retinal Exam [facility] Start: 03-07-2024 Hepatitis C antibody, confirmatory test Dilated Retinal Exam [facility] Start: 02-07-2024 End: 02-07-2024 ambulatory 02/07/2024 2:15 PM EDT Results Only Archana Soliman [facility] [address] [place] [address] Archana Colonwn [facility] Start: 01-20-2024 End: 01-20-2024 Patient encounter procedure 01/20/2024 9:45 AM EDT Office Visit Orthopaedics [address] [place] [address] Reji Mansfield MD [address] [place] [address] Post op Bilateral CTR Orthopaedics Comment on above: Post op Bilateral CTR Start: 01-16-2024 End: 01-16-2024 Patient encounter procedure 01/16/2024 2:45 PM EDT Office Visit Endocrinology [address] [address] Sharlene Escobar APRN.GEAR GRINDING MACHINE OPERATOR [address] [address] FOLLOW UP Endocrinology Comment on above: FOLLOW UP Start: 01-05-2024 Covid-19 Vaccine ( season) Covid-19 Vaccine ( season) [facility] Start: 01-05-2024 Influenza vaccination [facility] Start: 12-24-2023 End: 12-24-2023 Patient encounter procedure 12/24/2023 1:30 PM EDT Office Visit Orthopaedics [address] [address] Melissa Green PA-C [address] [place] [address] Post op Bilateral CTR Orthopaedics Comment on above: Post op Bilateral CTR Start: 12-23-2023 End: 12-23-2023 Patient encounter procedure 12/23/2023 10:45 AM EDT Office Visit Orthopaedics [address] [place] [address] Melissa Green PA-C [address] [place] [address] Post op Bilateral CTR Orthopaedics Comment on above: Post op Bilateral CTR Start: 12-11-2023 End: 12-11-2023 Admission to same day surgery center [facility] Surgery Comment on above: DECOMPRESSION NERVE MEDIAN CARPAL TUNNEL Start: 12-11-2023 End: 12-11-2023 Neuroplasty &/transpos median nrv carpal tunne [place] OR Start: 12-11-2023 Subsequent hospital visit by physician [facility] Surgery Comment on above: Bilateral carpal tunnel syndrome [G56.03 ] Start: 12-06-2023 End: 12-06-2023 Anesthesia consultation 12/06/2023 1:40 PM EDT PAT Pre Anesthesia [address] [place] [address] 1[facility] [address] [place] [address] Pt declined VV Pre Anesthesia Comment on above: Pt declined VV Start: 11-26-2023 End: 11-26-2023 Patient encounter procedure 11/26/2023 11:45 AM EDT Office Visit Orthopaedics [address] [address] Reji Mansfield MD [address] [place] [address] Bilat carpal tunnel surgery consult Orthopaedics Comment on above: Bilat carpal tunnel surgery consult Start: 11-19-2023 End: 11-19-2023 Patient encounter procedure 11/19/2023 11:00 AM EDT Office Visit Orthopaedics [address] [address] Reji Mansfield MD [address] [place] [address] Bilat carpal tunnel surgery consult Orthopaedics Comment on above: Bilat carpal tunnel surgery consult Start: 10-24-2023 Hemoglobin A1c measurement HbA1C [facility] Start: 08-25-2023 BP CONTROLLED (<130/80) BP CONTROLLED (<130/80) [facility] Start: 07-18-2023 Provision of overbed trapeze [facility] Start: 07-18-2023 Patient discharge [facility] Start: 07-17-2023 Following clinical pathway protocol [facility] Start: 07-17-2023 Care regimes management [facility] Start: 07-17-2023 Notification of physician [facility] Start: 07-17-2023 Application of intermittent pneumatic compression device [facility] Start: 07-17-2023 Anesth open/surg arthrs total knee arthroplasty ANESTH KNEE ARTHROPLASTY [facility] Start: 07-17-2023 Arthrp kne condyle&platu medial&lat compartments TOTAL KNEE ARTHROPLASTY [facility] Start: 07-17-2023 Injection aa&/strd femoral nerve NJX AA&/STRD FEMORAL NRV IMG [facility] Start: 07-17-2023 Ambulation therapy management [facility] Start: 07-17-2023 Application of device [facility] Start: 07-17-2023 Application of elastic bandage [facility] Start: 07-17-2023 Assessment of risk of venous thromboembolism [facility] Start: 07-17-2023 Catheterization of vein [facility] Start: 07-17-2023 Consultation [facility] Start: 07-17-2023 Exercises [facility] Start: 07-17-2023 Following clinical pathway protocol [facility] Start: 07-17-2023 Incentive spirometry [facility] Start: 07-17-2023 Introduction of urinary catheter [facility] Start: 07-17-2023 Measuring intake and output [facility] Start: 07-17-2023 Neurovascular assessment [facility] Start: 07-17-2023 Patient education [facility] Start: 07-17-2023 Procedure discontinued [facility] Start: 07-17-2023 Provision of activity privileges [facility] Start: 07-17-2023 Provision of overbed trapeze [facility] Start: 07-17-2023 Recommendation to continue with treatment [facility] Start: 07-17-2023 Referral to occupational therapist [facility] Start: 07-17-2023 Referral to service [facility] Start: 07-17-2023 Vital signs measurements [facility] Start: 07-17-2023 Wound care [facility] Start: 07-17-2023 End: 07-17-2023 [facility] Start: 07-17-2023 Admission procedure [facility] Start: 05-24-2023 Hepatitis C antibody, confirmatory test DILATED RETINAL EXAM [facility] Start: 05-06-2023 Behavioral Health Screening Behavioral Health Screening [facility] Start: 05-06-2023 Depression Assessment Depression Assessment [facility] Start: 02-23-2023 Hemoglobin A1c/Hemoglobin.total in Blood HBA1C [facility] Start: 01-04-2023 Covid-19 Vaccine ( season) Covid-19 Vaccine ( season) [facility] Start: 01-04-2023 Influenza vaccination [facility] Start: 12-21-2022 Anes rpr ruptured achilles tendon w/wo graft ANESTH ACHILLES TENDON SURG [facility] Start: 12-21-2022 Rpr primary open/prq ruptured achilles w/graft REPAIR/GRAFT ACHILLES TENDON [facility] Start: 12-21-2022 Radiography of ankle Ankle 2 Views [facility] Start: 12-21-2022 XR Ankle 2 Views [facility] Start: 12-21-2022 Patient discharge [facility] Start: 11-14-2022 BP CONTROLLED (<130/80) BP CONTROLLED (<130/80) [facility] Start: 08-23-2022 Hemoglobin A1c/Hemoglobin.total in Blood HBA1C [facility] Start: 06-01-2022 Anes open proc bones lower leg/ankle/foot nos ANESTH LOWER LEG BONE SURG [facility] Start: 06-01-2022 Arthrodesis great toe interphalangeal joint FUSION OF BIG TOE JOINT [facility] Start: 06-01-2022 Debridement subcutaneous tissue 20 sq cm/< FAITH SUBQ TISSUE 20 SQ CM/< [facility] Start: 06-01-2022 Patient discharge [facility] Start: 06-01-2022 X-ray of both feet Foot min 3 Views [facility] Start: 06-01-2022 XR Foot GE 3 Views [facility] Start: 05-06-2022 DEPRESSION ASSESSMENT DEPRESSION ASSESSMENT [facility] Start: 03-09-2022 3 comp foot exam completed DIABETIC FOOT EXAM [facility] Start: 03-09-2022 Diabetic foot examination Diabetic Foot Exam [facility] Start: 02-14-2022 Hemoglobin A1c/Hemoglobin.total in Blood HBA1C [facility] Start: 01-04-2022 Influenza vaccination INFLUENZA (#1) [facility] Start: 11-22-2021 End: 01-22-2022 25-hydroxyvitamin D3 [Mass/volume] in Serum or Plasma VITAMIN D 25 HYDROXY Lab Routine Type 2 diabetes mellitus with diabetic polyneuropathy, with long-term current use of insulin ([facility]) Vitamin D deficiency Expected: 11/22/2021 (Approximate), Expires: 01/22/2022 [facility] Work Phone: Comment on above: Expected: 11/22/2021 (Approximate), Expi res: 01/22/2022 Start: 11-22-2021 End: 01-22-2022 ALBUMIN/CREAT RATIO RND UR ALBUMIN/CREAT RATIO RND UR Lab Routine Type 2 diabetes mellitus with diabetic polyneuropathy, with long-term current use of insulin (HCC) Expected: 11/22/2021 (Approximate), Expires: 01/22/2022 [facility] Work Phone: Comment on above: Expected: 11/22/2021 (Approximate), Expi res: 01/22/2022 Start: 11-22-2021 End: 01-22-2022 Comprehensive metabolic 2000 panel - Serum or Plasma COMP METABOLIC PANEL Lab Routine Type 2 diabetes mellitus with diabetic polyneuropathy, with long-term current use of insulin (HCC) Expected: 11/22/2021 (Approximate), Expires: 01/22/2022 [facility] Work Phone: Comment on above: Expected: 11/22/2021 (Approximate), Expi res: 01/22/2022 Start: 11-22-2021 End: 01-22-2022 Lipid 1996 panel - Serum or Plasma LIPID PANEL BASIC Lab Routine Type 2 diabetes mellitus with diabetic polyneuropathy, with long-term current use of insulin (HCC) Mixed hyperlipidemia Expected: 11/22/2021 (Approximate), Expires: 01/22/2022 [facility] Work Phone: Comment on above: Expected: 11/22/2021 (Approximate), Expi res: 01/22/2022 Start: 11-22-2021 End: 01-22-2022 Thyrotropin [Units/volume] in Serum or Plasma TSH BLD Lab Routine Type 2 diabetes mellitus with diabetic polyneuropathy, with long-term current use of insulin (HCC) Expected: 11/22/2021 (Approximate), Expires: 01/22/2022 [facility] Work Phone: Comment on above: Expected: 11/22/2021 (Approximate), Expi res: 01/22/2022 Start: 10-07-2021 Creatinine measurement Creat[facility] monitoring [facility] Work Phone: Start: 10-07-2021 Potassium monitoring Potassium monitoring [facility] Work Phone: Start: 06-09-2021 Hemoglobin A1c/Hemoglobin.total in Blood HBA1C [facility] Start: 05-06-2021 DEPRESSION ASSESSMENT DEPRESSION ASSESSMENT [facility] Start: 01-04-2021 Hepatitis B screening URINE ALBUMIN:CREATININE RATIO [facility] Start: 01-04-2021 Hepatitis B surface antibody level LDL CHOLESTEROL [facility] Start: 01-04-2021 Influenza vaccination Flu vaccine (Season Ended) [facility] Work [facility]: Start: 2020 Hepatitis B Vaccine (1 of 3 - Risk 3-dose series) Hepatitis B Vaccine (1 of 3 - Risk 3-dose series) [facility] Start: 2020 RSV Vaccine (1 - 1-dose 60+ series) RSV Vaccine (1 - 1-dose 60+ series) [facility] Start: 2020 RSV Vaccine (1 - Risk 60-74 years 1-dose series) RSV Vaccine (1 - Risk 60-74 years 1-dose series) [facility] Start: 05-20-2019 Hepatitis C antibody, confirmatory test DILATED RETINAL EXAM [facility] Start: 01-04-2019 Influenza vaccination Flu vaccine (#1) [facility] Work Phone: Start: 10-26-2018 Annual Wellness Visit (AWV) Annual Wellness Visit (AWV) [facility] Work Phone: Start: 11-18-2016 PROSTATE CANCER SCREENING DISCUSSION PROSTATE CANCER SCREENING DISCUSSION [facility] Start: 11-18-2016 Prostate specific antigen measurement Prostate Cancer Screening Discussion [facility] Start: 2010 Colon cancer screen colonoscopy Colon cancer screen colonoscopy [facility] Work Phone: Start: 2010 Screening for malignant neoplasm of colon Colon cancer screen colonoscopy [facility] Work Phone: Start: 2010 Shingles Vaccine (1 of 2) Shingles Vaccine (1 of 2) [facility] Work Phone: Start: 2010 SHINGRIX VACCINE (1 of 2) SHINGRIX VACCINE (1 of 2) [facility] Start: 2005 COLOGUARD (FIT-DNA) COLOGUARD (FIT-DNA) [facility] Start: [address] COLONOGRAPHY [facility] Start: 2005 FECAL OCCULT BLOOD FECAL OCCULT BLOOD [facility] Start: 2005 Screening for malignant neoplasm of colon [facility] Start: 2005 SIGMOIDOSCOPY SIGMOIDOSCOPY [facility] Start: 2000 Diabetes screen Diabetes screen [facility] Work Phone: Start: 2000 Lipid panel Lipid screen [facility] Work Phone: Start: 2000 Lipid screen Lipid screen [facility] Work Phone: Start: 07-04-1993 Medicare Annual Wellness Visit Medicare Annual Wellness Visit [facility] Start: 09-24-1979 DTaP/Tdap/Td vaccine (1 - Tdap) DTaP/Tdap/Td vaccine (1 - Tdap) [facility] Work Phone: Start: 09-24-1979 Pneumococcal Vaccine: 50+ (1 of 2 - PCV) Pneumococcal Vaccine: 50+ (1 of 2 - PCV) [facility] Start: 09-24-1979 Urine microalbumin profile [facility] Start: 1978 ANNUAL PCP TEAM CHRONIC DISEASE VISIT ANNUAL PCP TEAM CHRONIC DISEASE VISIT [facility] Start: 1978 Anxiety Screening Anxiety Screening [facility] Start: 1978 BP CONTROLLED (<130/80) BP CONTROLLED (<130/80) [facility] Start: 1978 Depression Screening Depression Screening [facility] Start: 1978 HEPATITIS C SCREENING HEPATITIS C SCREENING [facility] Start: 1978 Hepatitis C screening Hepatitis C Screening [facility] Start: 1978 HIV SCREENING HIV SCREENING [facility] Start: 1978 HIV screening HIV Screening [facility] Start: 1976 ONE PNEUMOVAX PRIOR TO AGE 65 ONE PNEUMOVAX PRIOR TO AGE 65 [facility] Start: 09-24-1975 HIV screen HIV screen [facility] Work Phone: Start: 09-24-1975 HIV screening HIV screen [facility] Work Phone: Start: 1972 Adult depression screening assessment DEPRESSION SCREENING [facility] Start: 1972 COVID-19 Vaccine (1) COVID-19 Vaccine (1) [facility] Work Phone: Start: 09-24-1971 DTaP/Tdap/Td vaccine (1 - Tdap) DTaP/Tdap/Td vaccine (1 - Tdap) [facility] Work Phone: Start: 1966 PNEUMOCOCCAL (1 - PCV) PNEUMOCOCCAL (1 - PCV) [facility] Start: 1966 Pneumococcal vaccination [facility] Start: 1965 COVID-19 VACCINE (#1) COVID-19 VACCINE (#1) [facility] Start: 1965 COVID-19 VACCINE (1) COVID-19 VACCINE (1) [facility] Start: 03-26-1961 COVID-19 VACCINE (#1) COVID-19 VACCINE (#1) [facility] Start: 1960 Creatinine monitoring Creatinine monitoring [facility] Work Phone: Start: 1960 Hepatitis C screen Hepatitis C screen [facility] Work Phone: Start: 1960 Hepatitis C screening Hepatitis C screen [facility] Work Phone: Start: 1960 Potassium monitoring Potassium monitoring [facility] Work Phone: Anaerobic Culture Anaerobic Culture [facility] Bacteria identified in Unspecified specimen by Anaerobe culture [facility] End: 05-08-2019 Culture Blood #1 Culture Blood #1 Microbiology STAT One Time for 1 Occurrences starting 05/08/2019 until 05/08/2019 [facility] Work Phone: Comment on above: One Time for 1 Occurrences starting 07/2019 until 05/08/2019 Culture Blood #1 Culture Blood # 1 Microbiology STAT 05/08/2019 1:15 PM EST [facility] Work Phone: End: 05-08-2019 Culture Blood #2 Culture Blood #2 Microbiology STAT One Time for 1 Occurrences starting 05/08/2019 until 05/08/2019 [facility] Work Phone: Comment on above: One Time for 1 Occurrences starting 07/2019 until 05/08/2019 Culture Blood #2 Culture Blood # 2 Microbiology STAT 05/08/2019 1:15 PM EST [facility] Work Phone: EKG 12 Lead - Chest Pain EKG 12 Lead - Chest Pain ECG STAT 05/08/2019 1:08 PM EST [facility] Work Phone: Electrocardiographic procedure [facility] End: 06-18-2024 EMG(NEURO/NI) EMG(NEURO/NI) EMG Routine Bilateral carpal tunnel syndrome 1 Occurrences starting 06/18/2023 until 06/18/2024 [facility] Work Phone: Comment on above: 1 Occurrences starting 06/18/2023 until 06/18/2024 Microscopic observat ion [Identifier] in Unspecified specimen by Gram stain Gram Stain [facility] Patient referral [facility] Work Phone: SURGICAL PATHOLOGY [facility] Work Phone: Comment on above: Release Upon Ordering for 1 Occurrences starting 12/11/2023 Wound Culture Wound Culture [facility] Immunizations Immunization Date Immunization Notes Care Provider Fa rebeka 03-09-2021 influenza, injectabl e, quadrivalent, contains preservative Sharlenefozia Escobar TECHNICIAN BIOLOGICAL HEALTH.GEAR GRINDING MACHINE OPERATOR Work Phone: [facility] 03-09-2021 influenza virus vacc ine, unspecified formulation Sharlene Escobar TECHNICIAN BIOLOGICAL HEALTH.GEAR GRINDING MACHINE OPERATOR Work Phone: [facility] Payers Date Payer Category Payer Self-pay [id number] 2018 Medicaid MEDICAID [facility] DEPT OF JOB xxxxxxxxxxxx 2018-Present [phone] [address] [place] [address] xxxxxxxxxxxx [id number] 2015 Medicare MEDICARE MEDICAR E PART A AND B xxxxxxxxxx 2015-Present [phone] [address] [address] [place] [address] xxxxxxxxxx [id number] 2004 Medicaid [place]ICA[place] [id number] 2004-Present [phone] [address] [place] [address] Medicaid [id number] 2004 Medicaid [id number] 2004 Medicaid [id number] 1993 Medicare [id number] 1993 Medicare [id number] 1993 Medicare MEDICARE MEDICAR E A AND B [id number] 1993-Present [phone] [facility] [place] [address] Medicare [id number] 1993 Medicare [id number] 1993 Medicare [id number] 1960 Unknown [id number] Unknown [id number] Unknown [id number] Unknown [id number] Unknown [id number] Unknown [id number] Unknown [id number] Unknown [id number] Unknown [id number] Social History Date Type Detail Facility Start: 05-08-2019 End: 10-07-2020 Tobacco smoking status NHIS Former smoker [facility] Work Phone: Start: 10-07-2020 Alcohol intake Ex-drinker (finding) [facility] [employer] Phone: Start: 1960 Sex Assigned At Not on file S [facility] Work Phone: Start: 11-04-2021 End: 11-14-2021 Exposure to SARS-CoV-2 (event) Not sure [facility] Start: 09-21-2013 End: 05-25-2022 Tobacco smoking status NHIS Light tobacco smoker [facility] History of tobacco use Cigar Smoker [place] Start: 09-21-2013 End: 05-25-2022 Tobacco use and exposure Smokeless tobacco non-user [facility] Start: 03-09-2021 End: 12-31-2024 Alcohol intake Current non-drinker of alcohol (finding) [facility] Start: 04-05-2014 End: 05-25-2022 Tobacco Comment Cigars only, no cigarettes [facility] Start: 1960 Sex Assigned At Male [facility] Start: 10-26-2020 End: 07-17-2023 Tobacco smoking status TXIS Unknown if ever smoked [facility] Start: 08-24-2022 End: 02-22-2023 History of Social function [facility] Start: 08-24-2022 End: 02-22-2023 Tobacco use panel [facility] Start: 04-06-2012 National Score (1-10 0), lower number is lower risk 67 [facility] Start: 04-06-2020 Gender identity Identifies as male gender (finding) [facility] Start: 04-06-2020 Sexual orientation Heterosexual (fin ding) [facility] Start: 04-13-2024 End: 12-10-2024 Tobacco smoking status NHIS Current some day smoker [facility] Start: 01-07-2025 Tobacco smoking stat us NHIS Smokes tobacco daily (finding) [facility] Medical Equipment Procedure Code Equipment Code [...] 3 X 5 FDA Sta rt: 06-01-2022 [id number], [id number], [id number], [id number] Start: 01-19-2021 End: 12-31-2023 Comment on above: USE DIRECTED TWIC E DAILY Use 4 pen needles da beverley Use as instructed; 3 strips per day, IDDM, E 11.42 Use as instructed; 3 lancets daily, IDDM, E11.42 Use FOUR pen needles daily ([id number]) Metal-backed pat jean prosthesis ()[id number] ()[id number] FDA Start: 07-17-2023 ([id number]) Coated knee femu r prosthesis ()[id number] ()[id number] FDA Start: 07-17-2023 ([id number]) Coated knee tibi a prosthesis ()[id number] ()[id number] FDA Start: 07-17-2023 ([id number]) Tibial insert ()[id number] FDA Start: 07-17-2023 MEDTRONIC SPINAL CORD STIMULATOR FDA Start: 10-22-2024 MEDTRONIC SPINAL CORD STIMULATOR FDA Start: 10-22-2024 MEDTRONIC SPINAL CORD STIMULATOR FDA Start: 10-22-2024 SCREW FDA Start: 01-07-2025 TORNIER PERFORM REVERSED AUGMENTED GLENOID FDA Start: 01-07-2025 TORNIER PERFORM REVERSED GLENOID FDA Start: 01-07-2025 TORNIER PERFORM REVERSED GLENOSPHERE FDA Start: 01-07-2025 Polyethylene rev erse shoulder prosthesis cup ()[id number] FDA Start: 01-07-2025 Coated shoulder humeral stem prosthesis ()[id number] FDA Start: 01-07-2025 Goals Date Patient Goal Desired Activity /State Functional Status Date Assessment Result Facility 01-08-2025 Functional status Ambulates [facility] Work Phone: 07-18-2023 Functional status Patient Activity Chair [facility] Work Phone: 07-18-2023 Functional status With Assist of 1 [facility] Work Phone: 04-05-2014 Are you deaf, or do you have serious difficulty hearing No 04/05/2014 10:32 AM Joshua Allen No [facility] 04-05-2014 Are you blind, or do you have serious difficulty seeing, even when wearing glasses No 04/05/2014 10:32 AM Kush Allena No [facility] 04-05-2014 Do you have serious difficulty walking or climbing stairs No 04/05/2014 10:32 AM Joshua Allen No [facility] 04-05-2014 Do you have difficul ty dressing or bathing No 04/05/2014 10:32 AM Joshua Allen No [facility] 04-05-2014 Because of a physica l, mental, or emotional condition, do you have difficulty doing errands alone such as visiting a physician's office or shopping No 04/05/2014 10:32 AM Joshua Allen No [facility] Mental Status Date Assessment Result Facility 01-08-2025 Cognitive function Voice/Name [facility] Work Phone: 07-18-2023 Cognitive function Level Of Cons ciousness Awake;Alert;Appropriate;Fol lows Commands [facility] Work Phone: 07-18-2023 Cognitive function Voice/Name [facility] Work Phone: 12-21-2022 Cognitive function Voice/Name [facility] Work Phone: 06-01-2022 Cognitive function Voice/Name [facility] Work Phone: 04-05-2014 Because of a physica l, mental, or emotional condition, do you have serious difficulty concentrating, remembering, or making decisions No 04/05/2014 10:32 AM EST Joshua Hinton No [facility] Clinical Notes 08-18-2014 to 01-08-2025 Note Date & Type Note Facility 01-08-2025 Consult note [facility] 01-08-2025 Hospital Discharge instructions Additional Instructions Date of Discharge: 01/08/25 [facility] Work Phone: 01-08-2025 Note [facility] Medical Records Department [address] [place] [address] Discharge Summary 01/08/25 1153 MR#: [id number] Acct: [id number] Name: ISA MAYEN Rep #: [id number] : [id number] 64 From: Dianne BROWN PCP: RICARDO ABRAHAM MD Status:DIS RUDDY Location: [place] [address] Providers Date of Admission: 01/07/25 Date of Discharge: 01/08/25 Primary Care Physician: RICARDO ABRAHAM MD Consultations 01/07/25 13:26 Consult: Hospitalist Routine Consulting Provider: Ann Mansfield Reason for Consult: medical management s/p R total shoulder EMERGENT Consult: No MD Notified: Yes Date Notified: 01/07/25 Time Notified: 15:17 Method of Notification: Text 01/07/25 18:25 Consult: Onc/Wound/shellfish shucker Routine Comment: Reason for Consult:: Left-Heel- Diabetic foot ulcer Reason For Visit: RIGHT REVERSE TOTAL SHOULDER ARTHROPLASTY, ERAS Diagnosis Discharge Diagnosis (1) Type 2 diabetes mellitus with diabetic polyneuropathy: Status: Acute Code(s): E11.42 - Type 2 diabetes mellitus with diabetic polyneuropathy Qualifiers: Diabetes mellitus long term care phlebotomist insulin use: with long term care phlebotomist use Qualified Code(s): E11.42 - Type 2 diabetes mellitus with diabetic polyneuropathy; Z79.4 - long term care phlebotomist (current) use of insulin (2) Status post [...] Index (BMI) 36.3 (more content not included)... [facility] 01-08-2025 Progress note Note Date/Time January 08, 2025 8:[address] [place] [address] Medical Records Department [address] [place] [address] Progress Note - Hospitalist 01/08/25 0711 MR#: [id number] Acct: [id number] Name: ISA MAYEN Rep #:[id number] : 1960 64 From: Meredith Momin MD PCP: RICARDO ABRAHAM MD Status:ADM RUDDY Location: [place] [address]1 Subjective Subjective Patient is a 64-year-old gentleman [...] postoperative appearance following shoulder arthroplasty. Reading Location: [facility] Physical Exam Narrative GENERAL: cooperative HEENT: [...] mellitus with diabetic polyneuropathy: QUALIFIERS: Diabetes mellitus long term care phlebotomist insulin use: with long term care phlebotomist use Qualified Code(s): E11.42 - Type 2 diabetes mellitus with diabetic polyneuropathy; Z79.4 - nursing home (current) use of insulin PLAN: Plan Patient [...] 36 Minutes Charges/Coding Visit Charges Inpatient E&M: 56347 Subs Hosp L2 01/08/25 0817 <Electronically signed by Meredith Momin MD> Cosigner Signature (if applicable): CC: ~ Signed [facility] Work Phone: 1(623) 220-362009-05-2025 Progress note [facility] Medical Records Department [address] [place] [address] Progress Note - Hospitalist 01/08/25 0711 MR#: [id number] Acct: [id number] Name: ISA MAYEN Rep #:[id number] : 1960 64 From: Meredith Momin MD PCP: RICARDO ABRAHAM MD Status:ADM RUDDY Location: [place] [address] Subjective Subjective Patient is a 64-year-old gentleman [...] postoperative appearance following shoulder arthroplasty. Reading Location: [facility] Physical Exam Narrative GENERAL: cooperative HEENT: [...] mellitus with diabetic polyneuropathy: QUALIFIERS: Diabetes mellitus long term care phlebotomist insulin use: with long term care phlebotomist use Qualified Code(s): E11.42 -Type 2 diabetes mellitus with diabetic polyneuropathy; Z79.4 - nursing home (current) use of insulin PLAN: Plan Patient [...] 36 Minutes Charges/Coding Visit Charges Inpatient E&M: 10692 Subs Hosp L2 01/08/25 0817 Cosigner Signature (if applicable): CC: ~ Signed [facility]09-04-2025 Consult note Author Ann Mansfield [facility] Note Date/Time January 07, 2025 8:02pm [facility] Medical Records Department [address] [place] [address] Consultation - Hospitalist 01/07/251946 MR#: [id number] Acct: [id number] Name: ISA MAYEN Rep #:[id number] : 1960 64 From: Ann Mansfield MD PCP: RICARDO ABRAHAM MD Status:ADM RUDDY Location: [place] [address] Assessment & Plan Assessment/Plan (1) Type 2 diabetes mellitus with diabetic polyneuropathy: QUALIFIERS: Diabetes mellitus shelter insulin use: with shelter use Qualified Code(s): E11.42 - Type 2 diabetes mellitus with diabetic polyneuropathy; Z79.4 - nursing home (current) use of insulin PLAN: Plan #Hypertension [...] hypertension, chronic pain and depression presented to [facility] 01/07/25 for aright reverse total shoulder arthroplasty. Hospitalist consulted for postoperative medical management. Patient evaluated bedside. He reports overall his shoulder is feeling fairly well, no shortness of breath, no other new or acute complaints. Does have a diabetic foot ulcer that he reports is chronic, does wound care himself every day and said it slowly healing. [facility] Medical History Difficulty chewing Burn History of [...] postoperative appearance following shoulder arthroplasty. Reading Location: [id number] Charges/Coding Visit Charges Office Visits / Consults: 13844 OV L2 Est 10min 01/07/252001 <Electronically signed by Ann Mansfield MD> Cosigner Signature (if applicable): CC: Dr. Miguelito Garcia DO; RICARDO ABRAHAM MD~ Signed [facility] Work Phone: 1(502) 685-825909-04-2025 Consult note [facility] Medical Records Department [address] [place] [address] Consultation - Hospitalist 01/07/251946 MR#: [id number] Acct: [id number] Name: ISA MAYEN Rep #:[id number] : 1960 64 From: Ann Mansfield MD PCP: RICARDO ABRAHAM MD Status:ADM RUDDY Location: MS3 [id number] Assessment & Plan Assessment/Plan (1) Type 2 diabetes mellitus with diabetic polyneuropathy: QUALIFIERS: Diabetes mellitus long term care phlebotomist insulin use: with long term care phlebotomist use Qualified Code(s): E11.42 -Type 2 diabetes mellitus with diabetic polyneuropathy; Z79.4 - nursing home (current) use of insulin PLAN: Plan #Hypertension [...] hypertension, chronic pain and depression presented to [facility] 01/07/25 for aright reverse total shoulder arthroplasty. Hospitalist consulted for postoperative medical management. Patient evaluated bedside. He reports overall his shoulder is feeling fairly well, no shortness of breath, no other new or acute complaints. Does have a diabetic foot ulcer that he reports is chronic, does wound care himself every day and said it slowly healing. [facility] Medical History Difficulty chewing Burn History of [...] postoperative appearance following shoulder arthroplasty. Reading Location: [facility] Charges/Coding Visit Charges Office Visits / Consults: 79604 OV L2 Est 10min 01/07/252001 Cosigner Signature (if applicable): CC: Dr. Miguelito Garcia DO; RICARDO ABRAHAM MD~ Signed [facility]09-04-2025 Consult note Author Ish Chino [facility] Note Date/Time January 08, 2025 2:10pm [facility] Medical Records Department [address] [place] [address] Anesthesia Postop Eval II 01/07/25 1521 MR#: [id number] Acct: [id number] Name: ISA MAYEN Rep #:[id number] : 1960 64 From: Ish ESQUEDA PCP: RICARDO ABRAHAM MD Status:ADM RUDDY Y Race: C Location: MS3 MS303 -1 Anesthesia Postop Eval I Sum Postop Eval Completion status Anesthesia document: Postop Eval 1 completed: Yes Anesthesia Postop Eval I Summary Anesthesia Postop Eval I Summary: Anesthesia Postop Eval I: Assessment Summary Airway patent Yes 01/07/25 13:53 INTERNATIONAL SPECIALIST.TNES Spontaneous unlabored Yes 01/07/25 13:53 INTERNATIONAL SPECIALIST.TNES respirations Mental status nausea No 01/07/25 13:53 INTERNATIONAL SPECIALIST.TNES Vomiting No 01/07/25 13:53 INTERNATIONAL SPECIALIST.TNES Anesthesia Postop Eval I: Fluid Summary Crystalloid volume administer 1,500 01/07/25 13:53 INTERNATIONAL SPECIALIST.TNES (ml) Colloids volume administered ( ml) Blood Product volume administered (ml) Total IV fluid infused 1,500 01/07/25 13:53 INTERNATIONAL SPECIALIST.TNES Anesthesia Postop Eval I: Summary Notes Anesthesia Complication No 01/07/25 13:53 INTERNATIONAL SPECIALIST.TNES Anesthesia Complication Comment: Post-operative progress note Anesthesia: Postop Eval II Evaluation Mental status: Awake and Calm Pain Level: 2 nausea: No Vomiting: No Complications Anesthesia Complication: No 01/07/25 1521 <Electronically signed by Ish Chino CRNA> Date _ Ish Chino CRNA Cosigner Signature: Date CC: ~ Signed [facility] Work Phone: 1(592) 951-859709-04-2025 Evaluation note* Diagnosis Onset Date Resolution Status Admit Date Status post total shoulder arthroplasty acute January 07 1:59pm Type 2 diabetes mellitus wit h diabetic polyneuropathy acute 2024 1:59pm [facility] Work Phone: 1(568) 103-580509-04-2025 Consult note Author Juanjo Recinos [facility] Note Date/Time January 07, 2025 1:54pm [facility] Medical Records Department [address] [facility] [place] [address] Anesthesia Postop Eval I 01/07/25 1353 MR#: [id number] Acct: [id number] Name: ISA MAYEN Rep #:[id number] : 1960 64 From: Juanjo MARCIAL PCP: RICARDO ABRAHAM MD Status:REG [facility] Y Race: C Location: [place] [address] Anesthesia: Postop Eval I Current Vital Signs [...] CRNA Cosigner Signature: Date CC: ~ Signed [facility] Work Phone: 1(185) 523-195109-04-2025 Radiology Diagnostic study note [facility] Imaging Services [address] [facility] [place] [address] Shoulder min 2 Views MR#: [id number] Acct: [id number] Name: ISA MAYEN Rep #: [id number] : 1960 M 64 From: William Syed MD PCP: RICARDO ABRAHAM MD Status: REG [facility] Study:Shoulder min 2 Views Date of Exam: 01/07/25 Exam# [id number] Ordering Dr: Miguelito Garcia DO PROCEDURE: SHOULDER [...] postoperative appearance following shoulder arthroplasty. Reading Location: [id number] CC: Dr. Miguelito Garcia, DO; RICARDO ABRAHAM MD ~ Materials Intern: Signed [facility]09-04-2025 Consult note [facility] Medical Records Department [address] [facility] [place] [address] Anesthesia Postop Eval I 01/07/25 1353 MR#: [id number] Acct: [id number] Name: ISA MAYEN Rep #:[id number] : 1960 64 From: Juanjo MARCIAL PCP: RICARDO ABRAHAM MD Status:REG [facility] Y Race: C Location: [place] [address] Anesthesia: Postop Eval I Current Vital Signs Temperature: 97 F Pulse Rate: 62 Blood Pressure: 106/64 Respiratory Rate: 16 Pulse Ox: 92 Assessment Airway patent: Yes Spontaneous unlabored respirations: Yes nausea: No Vomiting: No Anesthesia Complication: No Fluid Hydration Crystalloid volume administer (ml): 1,500 Total IV fluid infused: 1,500 Progress Note Anesthesia document: Postop Eval 1 completed: Yes 01/07/25 1354 INTERNATIONAL SPECIALIST> Date _ Juanjo Recinos INTERNATIONAL SPECIALIST Cosigner Signature: Date CC: ~ Signed [facility]09-04-2025 Procedure note [facility] Medical Records Department [address] [place] [address] Operative Report 01/07/25 1327 MR#: [id number] Acct: [id number] Name: ISA MAYEN Rep #:[id number] : 1960 64 From: Miguelito looney DO PCP: RICARDO ABRAHAM MD Status:[facility] Location: [place] [address] Operative Report (Standard) Operative Information Date of Procedure: 01/07/25 Pre-Operative Diagnosis: Right shoulder rotator cuff tear arthropathy Post-Operative Diagnosis: Right shoulder rotator cuff tear arthropathy Surgery/Procedure Performed: Right reverse total shoulder arthroplasty community relations rep: Yes Oxygraph Operator: Dianne Walls Tasks completed by refinery operator assistant: Opening & closing, Implanting device, Hemostasis: Electrocautery and Retracting Additional merchandising assistant?: No Type of Anesthesia: General/Regional RN [...] No Description of surgery: Patient arrived to [facility] morning of the procedure and was [...] positioned in the beachchair position. A well-padded pile header was applied. The nonoperative extremity was placed [...] PACU in stable condition. Need for skilled merchandising assistant: Dianne Walls PA-C was critical to the outcome of thecase. During the course of the procedure the physician merchandising assistant played a vitalrole. Her intimate knowledge [...] Miguelito Garcia DO; RICARDO ABRAHAM MD~ Signed [facility]09-04-2025 Consult note Author Tony Garcia [facility] Note Date/Time January 07, 2025 11:15am [facility] Medical Records Department [address] [place] [address] Pre-Anesthesia Evaluation 01/07/25 1053 MR#: [id number] Acct: [id number] Name: ISA MAYEN Rep #:[id number] : 1960 64 From: Tony Garcia MD PCP: RICARDO ABRAHAM MD Status:REG [facility] Y Race: C Location: [place] [address]1 ASA Classification* ASA Classification ASA Classification: 3 [...] ARTHROPLASTY, ERAS 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 - scroll assembler: 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 - scroll assembler Hx Hospitalization No 12/10/24 08:47 Any Problems [...] take am of surgery PONV PONV - scroll assembler: PONV - scroll assembler Female No 12/10/24 08:47 HX of Motion [...] 01/07/25 10:20 Respiratory Assessment Respiratory Assessment - scroll assembler: Respiratory Tract Infection Hx - scroll assembler Hx Respiratory Tract Infection No 12/10/24 08:47 STOP Sleep Apnea STOP Sleep Apnea - scroll assembler: STOP Sleep Apnea - scroll assembler Hx Hypertension Yes 12/10/24 08:47 Hx Sleep [...] Tobacco Use History Tobacco Use History - scroll assembler: Tobacco Use History - scroll assembler Tobacco Use Smoking Status Current some day [...] week.) Hematologic Medial History Hematologic Hx - scroll assembler: 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 Hx of Blood Transfusion No 12/10/24 08:47 [...] confused, unrespo /Reproduction History /Reproductive History - scroll assembler: /Reproductive Hx- scroll assembler Hx Now No 12/10/24 08:47 Gestational Age [...] MD Cosigner Signature: Date CC: ~ Signed [facility] Work Phone: 1(831) 242-330609-04-2025 Consult note [facility] Medical Records Department [facility] [place] [address] Pre-Anesthesia Evaluation 01/07/25 1053 MR#: [id number] Acct: [id number] Name: ISA MAYEN Rep #:[id number] : 1960 64 From: Tony Garcia MD PCP: RICARDO ABRAHAM MD Status:REG [facility] Y Race: C Location: [place] [address] ASA Classification* ASA Classification ASA Classification: 3 [...] ARTHROPLASTY, ERAS 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 - scroll assembler: 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 - scroll assembler Hx Hospitalization No 12/10/24 08:47 Any Problems [...] take am of surgery PONV PONV - scroll assembler: PONV - scroll assembler Female No 12/10/24 08:47 HX of Motion [...] 01/07/25 10:20 Respiratory Assessment Respiratory Assessment - scroll assembler: Respiratory Tract Infection Hx - scroll assembler Hx Respiratory Tract Infection No 12/10/24 08:47 STOP Sleep Apnea STOP Sleep Apnea - scroll assembler: STOP Sleep Apnea - scroll assembler Hx Hypertension Yes 12/10/24 08:47 Hx Sleep [...] Tobacco Use History Tobacco Use History - scroll assembler: Tobacco Use History - scroll assembler Tobacco Use Smoking Status Current some day [...] week.) Hematologic Medial History Hematologic Hx - scroll assembler: 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 Hx of Blood Transfusion No 12/10/24 08:47 [...] confused, unrespo /Reproduction History /Reproductive History - scroll assembler: /Reproductive Hx- scroll assembler Hx Now No 12/10/24 08:47 Gestational Age [...] PRN PRN BG>/= 180, SEE PROTOCOL Protocol [facility] Medical History Difficulty chewing Burn History of [...] MD Cosigner Signature: Date CC: ~ Signed [facility]08-28-2025 History of Present illness Narrative* Sharlene Escobar APRN.GEAR GRINDING MACHINE OPERATOR - 12/31/2024 1:00 PM EDT Reason for [...] no [facility]. Had a fall slipping on wet carpet [...] gauge x 5/16 Use FOUR pen needles [id number] Each 3 flash glucose scanning reader (FREESTYLE ALONSO 2 READER) Use as instructed to monitor glucose continuously, IDDM, E11.42 1 Each 0 pregabalin (LYRICA) 150 mg capsule Take 1 capsule by mouth three times daily. Vwfskojb-Dvxracqes-Shkgmeu HMB (KIRK) 7-7-1.5 gram pwpk Take 1 [...] polyneuropathy, with long-term current use of insulin ([facility]) (primary encounter diagnosis) Comment: Glycemic control is [...] edema, with long-term current use of insulin ([facility]) Comment: Glycemic control is overall stable. Lower insulin to reduce hypoglycemia. Retinopathy monitored and managed per retinal specialist/director of patient safety. Plan: HEMOGLOBIN A1C (POC), insulin degludec (TRESIBA [...] Level: 4 - Moderate Sharlene Escobar, MSN, TECHNICIAN BIOLOGICAL HEALTH, CERTIFIED ENDOSCOPY TECHNICIAN-C, [facility] Endocrinology [facility] Medical Office Building/[address], [address] [place] [address] Fax: documented in this encounterLake [facility]-20[facility] NoteHNO ID: [id number] Author: SHARLENE ESCOBAR APRN.GEAR GRINDING MACHINE OPERATOR Service: ? Author Type: Nurse Practitioner Type: [...] continuously, IDDM, E11.4 (more content not included)... [facility]08-08-2025 Radiology Diagnostic study note [facility] Imaging Services [address] [place], [place] [address] Extremity Upper without Contra MR#: [id number] Acct: [id number] Name: ISA MAYEN Rep #: [id number] : 1960 M 64 From: Miah Almazan MD PCP: RICARDO ABRAHAM MD Status: REG CLI Study:Extremity Upper without Contra Date of Exam: 12/11/24 Exam# [id number] Ordering Dr: Miguelito Garcia DO PROCEDURE: EXTREMITY [...] 3. Additional findings as noted. Reading Location: [place] [address] CC: Dr. Miguelito Garcia DO; RICARDO ABRAHAM MD ~ Materials Intern: Signed [facility]03-27-2025 Telephone encounter Note* Telephone Encounter - Naty Sen MA - 07/30/2024 1:41 PM EDT Received a request for office notes from [employer] Notes from: 07/02/2024 Faxed via [employer] at [phone] Transmission Successful. [facility]03-27-2025 Miscellaneous Notes* Telephone Encounter - Naty Sen MA - 07/30/2024 1:41 PM EDT Received a request for office notes [facility] [employer] Notes from: 07/02/2024 Faxed via [employer] at [phone] Transmission Successful. documented in this encounterLake [facility]03-07-2025 Telephone encounter Note * Telephone Encounter - Yanet Karimi RN - 07/10/2024 12:27 PM EST Received notification from [facility] that they no longer cover Insulin Glargine Solostar U300. They do cover: Insulin Glargine-Yfgn Pen U100 Insulin Degludec Pen U100 Please review and advise. [facility]03-07-2025 Miscellaneous Notes* Telephone Encounter - Yanet Karimi RN - 07/10/2024 12:27 PM EST Received notification from [facility] that they no longer cover Insulin Glargine Solostar U300. They do cover: Insulin Glargine-Yfgn Pen U100 Insulin Degludec Pen U100 Please review and advise. documented in this encounterLake County [facility]03-06-2025 Telephone encounter Note * Telephone Encounter - Yanet Karimi RN - 07/09/2024 12:25 PM EST Insurance prefers ([employer]) Insulin Aspart instead of Lyumjev. Attached is RX. Please resend [facility]03-06-2025 Miscellaneous Notes* Telephone Encounter - Yanet Karimi RN - 07/09/2024 12:25 PM EST Insurance prefers ([employer]) Insulin Aspart instead of Lyumjev. Attached is RX. Please resend documented in this encounterLake County [facility]03-04-2025 Telephone encounter Note * Telephone Encounter - Yanet Karimi RN - 07/07/2024 11:52 AM EST Images from the original note were not included. EDU MAYEN (Fried: [id number]) KEVIN Rx #: [id number] Need Help? Call us at Status Sent to Plan today Drug FreeStyle Alonso 2 Sensor Form [employer] Medicare Electronic Prior Authorization Request Form (2016 [facility]) Original Claim Info A6 Please abandon this request. This is for a medical supply covered under Part B and member does not have Part B coverage with us Patient notified via [employer]. Closed [facility]03-04-2025 Miscellaneous Notes* Telephone Encounter - Yanet Karimi RN - 07/07/2024 11:52 AM EST Images from the original note were not included. EDU MAYEN (Fried: [id number]) KEVIN Rx #: [id number] Need Help? Call us at Status Sent to Plan today Drug FreeStyle Alonso 2 Sensor Form [employer] Medicare Electronic Prior Authorization Request Form (2017 [facility]) Original Claim Info A6 Please abandon this request. This is for a medical supply covered under Part B and member does not have Part B coverage with us Patient notified via [employer]. Closed documented in this encounterLake [facility]03-03-2025 Telephone encounter Note * Telephone Encounter - Melissa Green PA-C - 07/06/2024 1:41 PM EST Spoke with patient over the phone. 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 He will need to follow-up with our specialist in order to further differentiate the proteins and make a more definitive diagnosis. Patient already has a follow-up on July 14. [facility] Work Phone: [phone] 301-141603-03-2025 Miscellaneous Notes* Telephone Encounter - Melissa Green PA-C - 07/06/2024 1:41 PM EST Spoke with patient over the phone. 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 He will need to follow-up with our specialist in order to further differentiate the proteins and make a more definitive diagnosis. Patient already has a follow-up on July 14. documented in this encounterLake County [facility]02-28-2025 Telephone encounter Note * Telephone Encounter - Yanet Karimi RN - 07/03/2024 4:26 PM EST Images from the original note were not included. Approved Prior authorization approved Payer: [facility] Note from payer: Approved. 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 To be filled at: [facility] [address] [place] [address] [address] [facility] [phone] Pharmacy Benefits Open Encounter ISA MAYEN A - 2024 HandUp PBC PDP Retail Super ID ([employer]) Covered: Retail, Mail Order Unknown: Specialty, Long-Term Care BIN: [id number] : 1960 Group ID: [id number] PCN: [id number] Legal sex: M Group name: MYRA [id number] PDP [id number] Address: [address] [place] [address] Closed [facility]02-28-2025 Miscellaneous Notes* Telephone Encounter - Yanet Karimi RN - 07/03/2024 4:26 PM EST Images from the original note were not included. Approved Prior authorization approved Payer: [facility] Note from payer: Approved. This drug has [...] microalbuminuria, with long-term current use of insulin ([facility]) This order has been released to its destination. To be filled at: [facility] [address] [place] [address] [address] [facility] [phone] Pharmacy Benefits Open Encounter ISA MAYEN - 2024 HandUp PBC PDP Retail Super ID ([employer]) Covered: Retail, Mail Order Unknown: Specialty, Long-Term Care BIN: [id number] : 1960 Group ID: [id number] PCN: [id number] Legal sex: M Group name: MYRA [id number] PDP [id number] Address: [address] [place] [address] Closed * Telephone Encounter - Yanet Karimi [...] attachment was sent by alternative means. Payer: [facility] [phone] Attachment: The attachment was sent by alternative means. [id number] Case: [id number] Question Answer Is the request for Expedited [...] PM Message source: PBM Close reason: The timber management professor is not the PA processor for this patient and medication combination. Note from payer: [facility] does not manage prior authorizations for this patient. Please resubmit the ePArequest to [employer]. Payer: [employer] [phone] Waiting for Payer Response 07/02/2024 1:34 PM Sending user: Sharlene Escobar APRN.[facility] Payer: [employer] [phone] Faxed last office notes to [facility]. Transmission OK Will await approval/denial documented in this encounterLake [facility] - [place] Telephone encounter Note * Telephone Encounter - [...] attachment was sent by alternative means. Payer: [facility] [phone] Attachment: The attachment was sent by alternative means. [email or web address] Case: [id number] Question Answer Is the request for Expedited [...] PM Message source: PBM Close reason: The timber management professor is not the PA processor for this patient and medication combination. Note from payer: [employer] does not manage prior authorizations for this patient. Please resubmit the ePArequest to [employer]. Payer: [employer] [phone] Waiting for Payer Response 07/02/2024 1:34 PM Sending user: Sharlene Escobar APRN.CNP Payer: [employer] [phone] Faxed last office notes to [facility]. Transmission OK Will await approval/denial [facility]02-27-2025 Instructions* Patient Instructions* Sharlene Escobar APRN.CNP - [...] up in 6 months Sharlene Escobar, MSN, TECHNICIAN BIOLOGICAL HEALTH, CERTIFIED ENDOSCOPY TECHNICIAN-C, [facility] Endocrinology [facility] Medical Office [facility]/[address], [address] [place] [address] Fax: documented in this encounterLake [facility] History of Present illness Narrative* Sharlene Escobar [...] 1 capsule by mouth three times daily. Zqwepdta-Wgwolatlt-Chkcmyp HMB (KIRK) 7-7-1.5 gram pwpk Take 1 [...] edema, with long-term current use of insulin ([facility]) (primary encounter diagnosis) Comment: Glycemic control has been reasonable per the A1C however having more episodes of hypoglycemia and skipping insulin doses as a result. Retinopathy monitored and managed per retinal specialist/director of patient safety. Plan: HEMOGLOBIN A1C (POC), COMPREHENSIVE METABOLIC PANEL, [...] polyneuropathy, with long-term current use of insulin ([facility]) Comment: Glycemic control has been reasonable per [...] unspecified type (HCC) Comment/Plan: CONSULT TO HEMATOLOGY/ONCOLOGY (E66.582) Obesity, Class II, BMI 35-39.9 Comment: Body [...] Level: 4 - Moderate Sharlene Escobar, MSN, TECHNICIAN BIOLOGICAL HEALTH, CERTIFIED ENDOSCOPY TECHNICIAN-C, [facility] Endocrinology [facility] Medical Office [facility]/[address] [place], [place] [address] Fax: documented in this encounterLake [facility]-27-[facility]25 NoteHNO ID: [id number] Author: SHARLENE ESCOBAR APRN.GEAR GRINDING MACHINE OPERATOR Service: ? Author Type: Nurse Practitioner Type: [...] (BD INSULIN PEN (more content not included)... [facility]12-11-2024 Telephone encounter Note* Telephone Encounter - Yanet Karimi RN - 04/15/2024 10:21 AM EST Please review. [facility]12-11-2024 Miscellaneous Notes* Telephone Encounter - Yanet Karimi RN - 04/15/2024 10:21 AM EST Please review. documented in this encounterLake County [facility]12-11-2024 Telephone encounter Note * Telephone Encounter - Yanet Karimi RN - 04/15/2024 8:36 AM EST Please review. [facility]12-11-2024 Miscellaneous Notes* Telephone Encounter - Yanet Karimi RN - 04/15/2024 8:36 AM EST Please review. documented in this encounterLake County [facility]12-09-2024 Telephone encounter Note * Telephone Encounter - Yanet Karimi RN - 04/13/2024 11:53 AM EST EDU MAYEN (Fried: [id number]) KEVIN Rx #: [id number] Need Help? Call us at Outcome Denied on April 10 by [employer] Medicare 2016 [facility] Request Reference Number: [id number]. FREESTY LIBR KIT 2 SENSOR is denied for not meeting the prior authorization requirement(s). Details of this decision are in the notice attached below or have been faxed to you. Drug FreeStyle Alonso 2 Sensor ePA cloud logo Form [employer] Medicare Part D Electronic Prior Authorization Form (2016 [place]) Original Claim Info 70 Bill Medicare B Plan Exclusion Coverage may be avaiable as a Part B medical benefit. Closed [facility]12-09-2024 Miscellaneous Notes* Telephone Encounter - Yanet Karimi RN - 04/13/2024 11:53 AM EST EDU MAYEN (Fried: [id number]) KEVIN Rx #: [id number] Need Help? Call us at Outcome Denied on April 10 by [employer] Medicare 2016 [place] Request Reference Number: [id number]. FREESTY LIBR KIT 2 SENSOR is denied for not meeting the prior authorization requirement(s). Details of this decision are in the notice attached below or have been faxed to you. Drug FreeStyle Alonso 2 Sensor ePA cloud logo Form [employer] Medicare Part D Electronic Prior Authorization Form (2016 [place]) Original Claim Info 70 Bill Medicare B Plan Exclusion Coverage may be avaiable as a Part B medical benefit. Closed * Telephone Encounter - Yanet Karimi RN - 04/09/2024 12:01 PM EST EDU MAYEN (Fried: [id number]) KEVIN Rx #: [id number] Need Help? Call us at Status sent iconSent to Plan today Drug FreeStyle Alonso 2 Sensor ePA cloud logo Form [employer] Medicare Part D Electronic Prior Authorization Form (2016[facility]) Original Claim Info 70 Bill Medicare B Plan Exclusion Faxed last office notes to [employer]. Will await approval/denial documented in this encounterLake [facility]12-05-2024 Telephone encounter Note * Telephone Encounter - Yanet Karimi RN - 04/09/2024 12:01 PM EST EDU MAYEN (Fried: [id number]) KEVIN Rx #: [id number] Need Help? Call us at Status sent iconSent to Plan today Drug FreeStyle Alonso 2 Sensor ePA cloud logo Form [employer] Medicare Part D Electronic Prior Authorization Form (2016[facility]) Original Claim Info 70 Bill Medicare B Plan Exclusion Faxed last office notes to [employer]. Will await approval/denial [facility]10-01-2024 Telephone encounter Note* Telephone Encounter - Kaila [...] call in 6 months. All questions answered. [facility]10-01-2024 Miscellaneous Notes* Telephone Encounter - Kaila Ulloa [...] months. All questions answered. documented in this encounterLake County [facility]08-28-2024 Telephone encounter Note * Telephone Encounter - Yanet Karimi RN - 01/01/2024 1:06 PM EDT Isa Mayen (Fried: [id number]) KEVIN Rx #: [id number] Need Help? Call us at Outcome Approved today by [employer] Medicare 2017 [place] Request Reference Number: [id number]. INSULIN GLAR INJ 300/ML is approved through 05/05/2024. Yourpatient may now fill this prescription and it will be covered. Authorization Expiration Date: 05/05/2024 Drug Insulin Glargine Solostar 300UNIT/ML pen-injectors [facility] logo Form [employer] Medicare Part D Electronic Prior Authorization Form (2016 [place]) Original Claim Info 74,637 Product/Service Not Covered - Plan/Benefit Exclusion,Provide Notice: Medicare Prescription Drug Coverage and Your Rights Closed [facility]08-28-2024 Miscellaneous Notes* Telephone Encounter - Yanet Karimi RN - 01/01/2024 1:06 PM EDT Isa Mayen (Fried: [id number]) KEVIN Rx #: [id number] Need Help? Call us at Outcome Approved today by [employer] Medicare 2017 [facility] Request Reference Number: [id number]. INSULIN GLAR INJ 300/ML is approved through 05/05/2024. Yourpatient may now fill this prescription and it will be covered. Authorization Expiration Date: 05/05/2024 Drug Insulin Glargine Solostar 300UNIT/ML pen-injectors ePA [employer] logo Form [employer] Medicare Part D Electronic Prior Authorization Form (2016 [place]) Original Claim Info [id number] Product/Service Not Covered - Plan/Benefit Exclusion,Provide Notice: Medicare Prescription Drug Coverage and Your Rights Closed * Telephone Encounter - Yanet Karimi RN - 01/01/2024 12:03 PM EDT Isa Mayen (Fried: [id number]) KEVIN Rx #: [id number] Need Help? Call us at Status sent iconSent to Plan today Drug Insulin Glargine Solostar 300UNIT/ML pen-injectors ePA cloud logo Form [employer] Medicare Part D Electronic Prior Authorization Form (2016 NCPDP) Original Claim Info [id number] Product/Service Not Covered - Plan/Benefit Exclusion,Provide Notice: Medicare Prescription Drug Coverage and Your Rights Faxed last office notes to [employer]. Will await approval/denial documented in this encounterLake [facility]08-28-2024 Telephone encounter Note * Telephone Encounter - Yanet Karimi RN - 01/01/2024 12:03 PM EDT Isa Lalitmariuminderjit (Fried: [id number]) KEVIN Rx #: [id number] Need Help? Call us at Status sent iconSent to Plan today Drug Insulin Glargine Solostar 300UNIT/ML pen-injectors [facility] cloud logo Form [employer] Medicare Part D Electronic Prior Authorization Form (2016 [facility]) Original Claim Info 88,565 Product/Service Not Covered - Plan/Benefit Exclusion,Provide Notice: Medicare Prescription Drug Coverage and Your Rights Faxed last office notes to [employer]. Will await approval/denial [facility]08-27-2024 Telephone encounter Note* Telephone Encounter - Debra Hansen MA - 12/31/2023 3:03 PM EDT Faxed to [facility] at [phone], Transmission ok CLOSED [facility]08-27-2024 Miscellaneous Notes* Telephone Encounter - Debra Hansen MA - 12/31/2023 3:03 PM EDT Faxed to [facility] at [phone], Transmission ok CLOSED * Telephone Encounter - Sharlene Escobar APRN.CNP - 12/31/2023 2:19 PM EDT Please fax office note to pharmacy so he can get Alonso rx filled. Thank you documented in this encounterLake County [facility]08-27-2024 Telephone encounter Note * Telephone Encounter - Sharlene Escobar APRN.CNP - 12/31/2023 2:19 PM EDT Please fax office note to pharmacy so he can get Alonso rx filled. Thank you [facility]08-27-2024 Instructions* Patient Instructions* Sharlene Escobar APRN.CNP - 12/31/2023 1:22 PM EDT Increase Mounjaro to 10 mg weekly. [place] to 40 units daily in AM Lyumjev Breakfast 7 units Lunch 7 units Dinner 7 units Follow up in 6 months Sharlene Escobar, MSN, TECHNICIAN BIOLOGICAL HEALTH, CERTIFIED ENDOSCOPY TECHNICIAN-C, [facility] Endocrinology [facility] Medical Office [facility]/[address] [place] [address] Fax: documented in this encounterLake [facility]08-27-2024 History of Present illness Narrative* Sharlene Escobar [...] gauge x 5/16 Use FOUR pen needles [id number] Each 3 insulin glargine U-300 conc (TOUJEO [...] 1 capsule by mouth three times daily. Mcocyodx-Xcrrgztwl-Skslrpa HMB (KIRK) 7-7-1.5 gram pwpk Take 1 [...] edema, with long-term current use of insulin ([facility]) (primary encounter diagnosis) Comment: Glycemic control is improving. Increase Mounjaro and lower insulin Retinopathy monitored and managed per retinal specialist/director of patient safety. Plan: blood sugar diagnostic (BLOOD GLUCOSE TEST) [...] polyneuropathy, with long-term current use of insulin ([facility]) Comment: Glycemic control is improving. Increase Mounjaro [...] microalbuminuria, with long-term current use of insulin ([facility]) Comment: Glycemic control is improving. Increase Mounjaro [...] Level: 4 - Moderate Sharlene Escobar, MSN, TECHNICIAN BIOLOGICAL HEALTH, CERTIFIED ENDOSCOPY TECHNICIAN-C, [facility] Endocrinology [facility] Medical Office [facility]/[address], [address] [place] [address] Fax: documented in this encounterLake [facility]08-20-[facility] History of Present illness Narrative* Melissa Green PA-C - 12/24/2023 1:51 PM EDT Melissa Green PA-C Department of Orthopaedics Orthopaedics [address] [place] [id number] Dept: [phone] December 24, 2023 CHIEF COMPLAINT: Post Op [...] IDDM, E 11.42 Blood-Glucose Meter,Continuous (DEXCOM G6 ACTUARIAL ANALYST) [facility] Use continuously to monitor glucose, IDDM,E 11.42 [...] 1 capsule by mouth three times daily. Fwvfubyr-Hygjtpwkl-Vlnyhtf HMB (KIRK) 7-7-1.5 gram pwpk Take 1 [...] Allergies This note was partially generated using Zoomy voice recognition system, and there may be some incorrect words, spellings, and punctuation that were not noted in checking the note before saving. Melissa Green PA-C documented in this encounterLake County [facility]08-19-2024 Telephone encounter Note * Telephone Encounter - Anita Weiner MA - 12/23/2023 2:01 PM EDT I called and left a message for the patient that I was able to get him rescheduled with Melissa Green PA-C tomorrow at 1:30 pm. Asked the patient to contact the office back if that does not work. [facility]08-19-2024 Miscellaneous Notes* Telephone Encounter - Anita Weiner [...] patient regarding. Thank you documented in this encounterLake County [facility]08-19-2024 Telephone encounter Note * Telephone Encounter - Lupe Torres - 12/23/2023 10:50 AM EDT Pt is unable to make appt today to do , Patient stated It was to remove stiches. He would like to know if its ok to wait for next available. Please advise and call patient regarding. Thank you [facility]08-07-2024 Surgery Surgical operation note* Operative Report - Reji Mansfield MD - 12/11/2023 12:21 PM EDT OPERATIVE/PROCEDURE REPORT LOG ID: [id number] SURGERY/PROCEDURE DATE: 12/11/2023 INCISION/PROCEDURE START TIME: 12:44 PM INCISION CLOSE/PROCEDURE END TIME: 1:21 PM SURGEON(S)/PROCEDURALIST(S) AND TEXTILE BAG SEWER(S): Surgeon(s) and Role: * Reji Mansfield MD - Primary Physician Contract Driver: Paula Kohli PA-C; Melissa Green PA-C Registered Nurse Oxygraph Operator: Gill Steve RN SURGERY/PROCEDURE(S): Bilateral carpal tunnel [...] resistance. Subsequently, I selected a mini meniscotome Robinson blade and slid this in the protective guide, completely dividing the transverse carpal ligament. Delgado rakes were used to view up thewound to visualize for complete release and a [place] elevator was used to palpate for complete [...] DATE: December 11, 2023 TIME: 1:25 PM [facility] Work Phone: 1(924) 541-855008-07-2024 Surgical operation note* Operative Report - Reji Mansfield MD - 12/11/2023 12:21 PM EDT OPERATIVE/PROCEDURE REPORT LOG ID: [id number] SURGERY/PROCEDURE DATE: 12/11/2023 INCISION/PROCEDURE START TIME: 12:44 PM INCISION CLOSE/PROCEDURE END TIME: 1:21 PM SURGEON(S)/PROCEDURALIST(S) AND TEXTILE BAG SEWER(S): Surgeon(s) and Role: * Reji Mansfield MD - Primary Physician Contract Driver: Paula Kohli PA-C; Melissa Green PA-C Registered Nurse Oxygraph Operator: Gill Steve RN SURGERY/PROCEDURE(S): Bilateral carpal tunnel [...] resistance. Subsequently, I selected a mini meniscotome Robinson blade and slid this in the protective guide, completely dividing the transverse carpal ligament. Delgado rakes were used to view up thewound to visualize for complete release and a [place] elevator was used to palpate for complete [...] 2023 TIME: 1:25 PM documented in this encounterLake County [facility]08-07-2024 Attending History and physical note* Melissa Green [...] (BMI) of 40.0 to 44.9 in adult ([facility]) Assessment: Body mass index is 41.56 kg/m [...] polyneuropathy, with long-term current use of insulin ([facility]) Assessment: IDDM, and weekly injectable, following endo and Lyrica for neuropathy, newer A1c requested from [facility]. Last Mounjaro injection 11/30/23, pt knows to HOLD next dose prior to surgery A1c 07/02/2022 6.3 from [facility], to be scanned into epic Hemoglobin A1C [...] sleepy during the daytime STOP-Bang Score: 7 [id number] Score: Age: <65 Sex: male CHF history: No Hypertension history: Yes Stroke/TIA/thromboembolism history: No Vascular disease history: No Diabetes history: Yes [id number] Score: 2 ARISCAT Score: Age: 51-80 Preoperative [...] and consent discussed: yes. Patient / Responsible Democrat agrees to proceed: yes Patient / Surrogate agrees to blood products: blood products not planned Discussed the possibility of lip / dental damage: yes Prepared for Surgery: optimally prepared for surgery, pending [see comment]. 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 Has braces to wears at bedtime and helps. He is retired. Patient is left hand dominant. REVIEW OF SYSTEMS: General: No weight loss, malaise or fevers. Neurological: No history of TIA's, stroke, AUTO TRAVEL COUNSELOR tumor, impaired sensorium, hemiplegia, paraplegia orquadraplegia. No [...] 11.42 Taking Yes Blood-Glucose Meter,Continuous (DEXCOM G6 ACTUARIAL ANALYST) misc Use continuously to monitor glucose, IDDM,E [...] by mouth three times daily. Taking Yes Gmwonpen-Ayrjsmgbn-Uqqexml HMB (KIRK) 7-7-1.5 gram pwpk Take 1 [...] or any previous visit (from the past 20716 hour(s)). Instructions Given to Patient: Instructions located in the after visit summary. Patient given verbal and written preop instructions and voices comprehension and compliance. SIGNATURE: Yelitza Ly APRN.CNP PATIENT NAME: Isa Mayen DATE: December 06, 2023 TIME: 1:36 PM PAGER/CONTACT #: [facility] Work Phone: 1(958) 932-868708-07-2024 History and physical note* Melissa Green PA-C [...] 12:14 PM Source Note - Yelitza Ly APRN.GEAR GRINDING MACHINE OPERATOR - 12/06/2023 1:36 PM EDT Images from [...] polyneuropathy, with long-term current use of insulin ([facility]) Assessment: IDDM, and weekly injectable, following endo and Lyrica for neuropathy, newer A1c requested from [facility]. Last Mounjaro injection 11/30/23, pt knows to HOLD next dose prior to surgery A1c 07/02/2022 6.3 from [facility], to be scanned into epic Hemoglobin A1C [...] Assessment: daily cigars per pt, denies asthma, [facility] states hx COPD, pt denies, No [...] sleepy during the daytime STOP-Bang Score: 7 [id number] Score: Age: <65 Sex: male CHF history: No Hypertension history: Yes Stroke/TIA/thromboembolism history: No Vascular disease history: No Diabetes history: Yes [id number] Score: 2 ARISCAT Score: Age: 51-80 Preoperative [...] and consent discussed: yes. Patient / Responsible Democrat agrees to proceed: yes Patient / Surrogate agrees to blood products: blood products not planned Discussed the possibility of lip / dental damage: yes Prepared for Surgery: optimally prepared for surgery, pending [see comment]. Recent labs requested from [facility] to [place] CONSULTS: Patient does not require [...] Polyneuropathy, With Long-Term Current Use of Insulin ([facility]) Class 3 Severe Obesity With Serious Comorbidity and Body Mass Index (Bmi) of 40.0 to 44.9 in Adult ([facility]) Type 2 Diabetes Mellitus With Both [...] and picking up coins. 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 Has braces to wears at bedtime and helps. He is retired. Patient is left hand dominant. REVIEW OF SYSTEMS: General: No weight loss, malaise or fevers. Neurological: No history of TIA's, stroke, AUTO TRAVEL COUNSELOR tumor, impaired sensorium, hemiplegia, paraplegia orquadraplegia. No [...] 11.42 Taking Yes Blood-Glucose Meter,Continuous (DEXCOM G6 ACTUARIAL ANALYST) misc Use continuously to monitor glucose, IDDM,E [...] by mouth three times daily. Taking Yes Dlgnwetz-Rgimkgolt-Lonamlc HMB (KIRK) 7-7-1.5 gram pwpk Take 1 [...] or any previous visit (from the past 23543 hour(s)). Instructions Given to Patient: Instructions located in the after visit summary. Patient given verbal and written preop instructions and voices comprehension and compliance. SIGNATURE: Yelitza Ly APRN.CNP PATIENT NAME: Isa Mayen DATE: December 06, 2023 TIME: 1:36 PM PAGER/CONTACT #: documented in this encounterLake County [facility]08-02-2024 Telephone encounter Note * Telephone Encounter - Blanche Brandon LPN - 12/06/2023 3:24 PM EDT Scanned CXR from 12/10/22 into [facility] through Onbase scanning. Blanche Brandon LPN [facility]08-02-2024 Miscellaneous Notes* Telephone Encounter - Blanche Brandon LPN - 12/06/2023 3:24 PM EDT Scanned CXR from 12/10/22 into [facility] through Onbase scanning. Blanche Brandon LPN * Telephone Encounter - Blanche Brandon LPN - 12/06/2023 3:07 PM EDT Printed labs from [facility]. Copy sent to [facility] through Onbase scanning. Blanche Brandon LPN * Telephone Encounter - Yelitza Ly APRN.CNP - 12/06/2023 3:03 PM EDT Please request recent labs including A1c from [facility] earlier this year. documented in this encounterLake County [facility]08-02-2024 Telephone encounter Note * Telephone Encounter - Blanche Brandon LPN - 12/06/2023 3:07 PM EDT Printed labs from [facility]. Copy sent to [facility] through Onbase scanning. Blanche Brandon LPN [facility]08-02-2024 Telephone encounter Note* Telephone Encounter - Yelitza Ly APRN.KIERSTEN - 12/06/2023 3:03 PM EDT Please request recent labs including A1c from [facility] earlier this year. [facility]08-02-2024 Instructions* Patient Instructions* Yelitza Ly APRN.KIERSTEN - 12/06/2023 1:45 PM EDT Images from the original note were not included. [facility] PATIENT PREOPERATIVE INSTRUCTIONS No ref. provider found has scheduled you for your procedure at this surgery center: [facility]: [phone] -- [address] [facility] [address]. Please read below carefully for your personalized [...] G6 SENSOR) [facility] Blood-Glucose Meter,Continuous (DEXCOM G6 ACTUARIAL ANALYST) [facility] Blood-Glucose Transmitter (DEXCOM G6 TRANSMITTER) [facility] flash [...] surgery with a small sip of water Wsdypxkb-Vaprtrrmx-Xhkelik HMB (KIRK) 7-7-1.5 gram pwpk Stop 7 [...] Procedures: - YOU MUST HAVE A RESPONSIBLE DIRECTOR OF COMMUNITY CENTER TAKE YOU HOME. A INFORMIX DEVELOPER OR TUFTING SUPERVISOR CANNOT BE MADE A RESPONSIBLE DIRECTOR OF COMMUNITY CENTER. - We recommend that a responsible person [...] Advance Directive, please fax a copy to [phone] or email to for it to be [...] day. Yelitza Ly APRN.CNP documented in this encounterLake County [facility]08-02-2024 History and physical note * Yelitza Ly [...] (BMI) of 40.0 to 44.9 in adult ([facility]) Assessment: Body mass index is 41.56 kg/m [...] polyneuropathy, with long-term current use of insulin ([facility]) Assessment: IDDM, and weekly injectable, following endo and Lyrica for neuropathy, newer A1c requested from [facility]. Last Mounjaro injection 11/30/23, pt knows to HOLD next dose prior to surgery A1c 07/02/2022 6.3 from [facility], to be scanned into [facility] Hemoglobin A1C (%) Date Value 04/24/2023 [...] sleepy during the daytime STOP-Bang Score: 7 [id number] Score: Age: <65 Sex: male CHF history: No Hypertension history: Yes Stroke/TIA/thromboembolism history: No Vascular disease history: No Diabetes history: Yes [id number] Score: 2 ARISCAT Score: Age: 51-80 Preoperative [...] and consent discussed: yes. Patient / Responsible Democrat agrees to proceed: yes Patient / Surrogate agrees to blood products: blood products not planned Discussed the possibility of lip / dental damage: yes Prepared for Surgery: optimally prepared for surgery, pending [see comment]. 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 Has braces to wears at bedtime and helps. He is retired. Patient is left hand dominant. REVIEW OF SYSTEMS: General: No weight loss, malaise or fevers. Neurological: No history of TIA's, stroke, AUTO TRAVEL COUNSELOR tumor, impaired sensorium, hemiplegia, paraplegia orquadraplegia. No [...] 11.42 Taking Yes Blood-Glucose Meter,Continuous (DEXCOM G6 ACTUARIAL ANALYST) misc Use continuously to monitor glucose, IDDM,E [...] E11.42 Taking Yes flash glucose scanning reader ([employer] ALONSO 2 READER) Use as instructed to monitor glucose continuously, IDDM, E11.42 Taking Yes pregabalin (LYRICA) 150 mg capsule Take 1 capsule by mouth three times daily. Taking Yes Xxexfwwx-Pnpfurglh-Rqahxza HMB (KIRK) 7-7-1.5 gram pwpk Take 1 [...] or any previous visit (from the past 59710 hour(s)). Instructions Given to Patient: Instructions located in the after visit summary. Patient given verbal and written preop instructions and voices comprehension and compliance. SIGNATURE: Yelitza Ly APRN.CNP PATIENT NAME: Isa Mayen DATE: December 06, 2023 TIME: 1:36 PM PAGER/CONTACT #: [facility]08-02-2024 History and physical note* Yelitza Ly APRN.CNP [...] (BMI) of 40.0 to 44.9 in adult ([facility]) Assessment: Body mass index is 41.56 kg/m [...] polyneuropathy, with long-term current use of insulin ([facility]) Assessment: IDDM, and weekly injectable, following endo and Lyrica for neuropathy, newer A1c requested from [facility]. Last Mounjaro injection 11/30/23, pt knows to HOLD next dose prior to surgery A1c 07/02/2022 6.3 from [facility], to be scanned into [facility] Hemoglobin A1C (%) Date Value 04/24/2023 [...] Assessment: daily cigars per pt, denies asthma, [facility] states hx COPD, pt denies, No [...] sleepy during the daytime STOP-Bang Score: 7 [id number] Score: Age: <65 Sex: male CHF history: No Hypertension history: Yes Stroke/TIA/thromboembolism history: No Vascular disease history: No Diabetes history: Yes [id number] Score: 2 ARISCAT Score: Age: 51-80 Preoperative [...] and consent discussed: yes. Patient / Responsible Democrat agrees to proceed: yes Patient / Surrogate agrees to blood products: blood products not planned Discussed the possibility of lip / dental damage: yes Prepared for Surgery: optimally prepared for surgery, pending [see comment]. 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 Has braces to wears at bedtime and helps. He is retired. Patient is left hand dominant. REVIEW OF SYSTEMS: General: No weight loss, malaise or fevers. Neurological: No history of TIA's, stroke, AUTO TRAVEL COUNSELOR tumor, impaired sensorium, hemiplegia, paraplegia orquadraplegia. No [...] 11.42 Taking Yes Blood-Glucose Meter,Continuous (DEXCOM G6 ACTUARIAL ANALYST) misc Use continuously to monitor glucose, IDDM,E [...] E11.42 Taking Yes flash glucose scanning reader ([employer] ALONSO 2 READER) Use as instructed to monitor glucose continuously, IDDM, E11.42 Taking Yes pregabalin (LYRICA) 150 mg capsule Take 1 capsule by mouth three times daily. Taking Yes Nudyfxtv-Iomhxdail-Qpnlqma HMB (KIRK) 7-7-1.5 gram pwpk Take 1 [...] or any previous visit (from the past 02295 hour(s)). Instructions Given to Patient: Instructions located in the after visit summary. Patient given verbal and written preop instructions and voices comprehension and compliance. SIGNATURE: Yelitza Ly APRN.CNP PATIENT NAME: Isa Mayen DATE: December 06, 2023 TIME: 1:36 PM PAGER/CONTACT #: documented in this encounterLake [facility] Instructions* Patient Education - Yanet Mcclendon PA-C [...] has a PAT appointment next week in [place] and was advised he wouldreceive further instructions for any additional pre-operative medication management at that time. Patient also informed to reach out to his surgeon's office if he had any further questions or concerns. He verbalized understanding. SIGNATURE: Yanet Mcclendon PA-C PATIENT NAME: Isa Mayen DATE: November 29, 2023 [facility] Work Phone: 1(650) 824-223507-26-2024 Miscellaneous Notes* Patient Education - Yanet Mcclendon [...] has a PAT appointment next week in [place] and was advised he wouldreceive further instructions for any additional pre-operative medication management at that time. Patient also informed to reach out to his surgeon's office if he had any further questions or concerns. He verbalized understanding. SIGNATURE: Yanet Mcclendon PA-C PATIENT NAME: Isa Mayen DATE: November 29, 2023 documented in this encounterLake County [facility]07-[facility]24 Telephone encounter Note * Telephone Encounter - Lenka Cheney MA - 11/27/2023 7:55 AM EDT Surgery scheduled as requested. Post op appointments scheduled and mailed to the patient. [address]24-2024 Miscellaneous Notes* Telephone Encounter - Lenka [...] Bilateral CTR on 12/11/2023. documented in this encounterLake [facility]07-[facility]24 Telephone encounter Note * Telephone Encounter - Lenka Cheney MA - 11/26/2023 4:02 PM EDT Surgical request completed. [facility]07-23-2024 Telephone encounter Note* Telephone Encounter - Lenka Cheney MA - 11/26/2023 1:24 PM EDT Patient scheduled for Bilateral CTR on 12/11/2023. [facility]07-23-2024 History of Present illness Narrative* Reji Mansfield MD - 11/26/2023 11:48 AM EDT Reji Mansfield MD Department of Orthopaedics Orthopaedics [address] [place] [id number] Dept: [phone] November 26, 2023 CHIEF COMPLAINT: New of [...] and picking up coins. 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 Has braces to wears at bedtime and helps. He is retired. Patient is left hand dominant. ASSESSMENT: G56.03 Bilateral carpal tunnel syndrome (primary encounter diagnosis) PLAN: We reviewed the risks, benefits, alternatives and potential complications with op and non-op treatment. Severe exam and nerve testing. Difficult to predict immediate or long term care phlebotomist improvement, but improvement is expected. FOLLOW UP [...] IDDM, E 11.42 Blood-Glucose Meter,Continuous (DEXCOM G6 ACTUARIAL ANALYST) [facility] Use continuously to monitor glucose, IDDM,E 1142 [...] 1 capsule by mouth three times daily. Vyrxfjas-Ladhnwfzo-Rxbrevl HMB (KIRK) 7-7-1.5 gram pwpk Take 1 [...] anxiety) Reji Mansfield MD documented in this encounterLake [facility]07-[facility]-2024 Telephone encounter Note * Telephone Encounter - Sharlene Escobar APRN.CNP - 11/25/2023 5:43 PM EDT Rx sent. MC message sent to patient. Thank you [facility]07-22-2024 Miscellaneous Notes* Telephone Encounter - Sharlene Escobar APRN.CNP - 11/25/2023 5:43 PM EDT Rx sent. MC message sent to patient. Thank you * Telephone Encounter - Debra Hansen MA - 11/25/2023 2:33 PM EDT Fiasp on backorder.It shows Lyumjev is also preferred. If it is not we will have to complete a PA. documented in this encounterLake County [facility]07-22-2024 Telephone encounter Note * Telephone Encounter - Debra Hansen MA - 11/25/2023 2:33 PM EDT Fiasp on backorder.It shows Lyumjev is also preferred. If it is not we will have to complete a PA. [facility]07-01-2024 Telephone encounter Note* Telephone Encounter - Ericka Batista - 11/04/2023 9:23 AM EDT 1st attempt: Sent [employer] message that patient needed to schedule an appointment. I will postpone and follow up on this 11.05.2023 [facility]07-01-2024 Miscellaneous Notes* Telephone Encounter - Ericka Batista - 11/04/2023 9:23 AM EDT 1st attempt: Sent [employer] message that patient needed to schedule an [...] advise. Naty Sen MA documented in this encounterLake [facility]07-01-2024 Telephone encounter Note * Telephone Encounter - [...] Please review and advise. Naty Sen MA [facility]06-06-2024 Miscellaneous Notes* Telephone Encounter - Naty Sen MA - 10/10/2023 12:45 PM EDT Received a request for office notes from [facility] ([facility]) documented in this encounterLake County [facility]06-06-2024 Telephone encounter Note * Telephone Encounter - Naty Sen MA - 10/10/2023 12:45 PM EDT Received a request for office notes from [facility] ([facility]) [facility]05-30-2024 Telephone encounter Note* Telephone Encounter - Sarah Velásquez - 10/03/2023 9:14 AM EDT Lvm for patient to call back and schedule an appointment with Dr. Mansfield [facility]05-30-2024 Miscellaneous Notes* Telephone Encounter - Sarah Velásquez [...] schedule a consult appointment. documented in this encounterLake County [facility]05-28-2024 Telephone encounter Note * Telephone Encounter - Eli Thomas - 10/01/2023 10:01 AM EDT Lvm for pt to call back to schedule with Hu Bragg for a consult for carpal tunnel surgery ab [facility]05-28-2024 Telephone encounter Note* Telephone Encounter - Neyda Clark - 10/01/2023 8:05 AM EDT Patient has a referral in scanned docs for carpal tunnel surgery. The patient is being referred by Dr. Ricardo Abraham to . Please call to schedule a consult appointment. [facility]05-28-2024 Telephone encounter Note* Telephone Encounter - Sharlene Escobar APRN.CNP - 10/01/2023 7:20 AM EDT Reviewed. 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 Problem list is up to date. Thank you [facility]05-28-2024 Miscellaneous Notes* Telephone Encounter - Sharlene Escobar APRN.CNP - 10/01/2023 7:20 AM EDT Reviewed. 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 Problem list is up to date. Thank you * Telephone Encounter - Naty Sen MA - 09/27/2023 1:25 PM EDT Received Eye Exam Report from [facility] Updated. Placed in provider's inbox for review. Route to MD for scanning. documented in this encounterLake County [facility]05-24-2024 Telephone encounter Note * Telephone Encounter - Naty Sen MA - 09/27/2023 1:25 PM EDT Received Eye Exam Report from [facility] Updated. Placed in provider's inbox for review. Route to MD for scanning. [facility]04-19-2024 Miscellaneous Notes* Telephone Encounter - Yanet Karimi RN - 08/23/2023 11:08 AM EDT Please review and advise. documented in this encounterLake County [facility]04-19-2024 Miscellaneous Notes* Telephone Encounter - Yanet Karimi RN - 08/23/2023 8:00 AM EDT Received a PA for the FreeStyle Alonso 2 Sensors. Dexcom is the preferred. Can we sent a RX for the Dexcom G6 sensors and timber management professor and have him meet with Meredith to learn how to use it? * Telephone Encounter - Yanet Karimi RN - 08/21/2023 11:45 AM EDT Patient notified that the FreeStyle Alonso is not covered under Medicare and am seeing if he wants to try the Dexcom. Will await reply. documented in this encounterLake [facility]04-18-2024 Miscellaneous Notes* Telephone Encounter - Natali Beach MA - 08/22/2023 1:38 PM EDT Patient is active on [employer]- message sent. Advised to call or message in [employer] with any questions about changes * Telephone [...] he can take an alternative. Please call [phone]. documented in this encounterLake [facility]04-05-2024 History of Present illness Narrative* Duane Snyder [...] StantonT Duane Snyder DO documented in this encounterLake County [facility]03-20-2024 Miscellaneous Notes* Telephone Encounter - Katie Burr RN - 07/24/2023 10:50 AM EDT EDU MAYEN (Fried: [id number]) Rx #: [id number] Fiasp FlexTouch 100UNIT/ML pen-injectors Form [employer] Medicare Part D Electronic Prior Authorization Form (2016 NCPDP) Created 2 days ago Sent to Plan 3 hours ago Plan Response 3 hours ago Submit Clinical Questions 2 hours ago Determination Favorable 27 minutes ago Message from Plan Request Reference Number: [id number]. FIASP FLEX INJ TOUCH is approved through 05/05/2024. Your patient may now fill this prescription and it will be covered.. Authorization Expiration Date: May 05, 2024. documented in this encounterLake County [facility]03-14-2024 Discharge summary Author Edu Haynes [facility] July 18, 2023 10:39am Note Date/Time July 18, 2023 10: 35am [facility] Medical Records Department [address] [place] [address] Instructions for Home/Discharge Instructions 07/18/23 1034 MR#: [id number] Acct: [id number] Name: ISA MAYEN Rep #:[id number] : [...] July 22, 2023) Additional Dressing/Incision Instructions:: Follow [facility] Post-op Instructions. Once postoperative dressing has [...] - Edu Haynes PA-C [Med Staff - [facility] Practice Prof] - 08/01/23 3:45 pm Disposition Disposition (needs filled in before D/C Order can be placed): Home, Self Care 07/18/23 1039<Electronically signed by Edu BROWN PA-C>Edu BROWN PA-C CC: Dr. Minoo Myers DO; Dr. Miguelito Mesa MD; RICARDO ABRAHAM MD ~ Signed [facility] Work Phone: 1(613) 908-857103-14-2024 Progress note Author [facility] July 18, 2023 10:34am Note Date/Time July 18, 2023 10: 32am [facility] Medical Records Department [address] [place] [address] Progress Note - Orthopedic 07/18/23 1027 MR#: [id number] Acct: [id number] Name: ISA MAYEN Rep #:[id number] : 1960 62 From: Edu BROWN PA-C PCP: RICARDO ABRAHAM MD Status:ADM RUDDY Location: MS3 BO328-3 Subjective Subjective The patient was sitting in [...] like his prescriptions E scribed to drug [place] in [facility]. Upon discharge he will contact our office with any concerns or questions. I have reviewed the [place] Automated Rx Reporting System (OARRS) report for [...] Cosigner Signature (if applicable): CC: ~ Signed [facility] Work Phone: 1(556) 600-389503-13-2024 Progress note Author Miguelito Mesa [facility] July 17, 2023 4:45pm Note Date/Time July 17, 2023 4:0 3pm [facility] Medical Records Department [address] [place] [address] Progress Note - Hospitalist 07/17/23 1600 MR#: [id number] Acct: [id number] Name: ISA MAYEN Rep #:[id number] : 1960 62 From: Miguelito acosta MD PCP: RICARDO ABRAHAM MD Status:ADM RUDDY Location: KS3 LK304-7 Subjective Subjective 60-year-old male presented to the [...] 13:14 EDT Reading Location ID and State: [facility] / [place] , Service support , Physical Exam Narrative [...] Charges/Coding Visit Charges Office Visits / Consults: 11707 OV L3 New 30min 07/17/23 1645 <Electronically signed by Miguelito Mesa MD> Cosigner Signature (if applicable): CC: ~ Signed [facility] Work Phone: 1(772) 456-540803-13-2024 Procedure [facility] 07-17-2023 History and physical note Author Luis A Adkins [facility] July 17, 2023 9:09am Note Date/Time July 10, 2023 9:05 am [facility] Medical Records Department [address] [place] [address] History & Physical Exam 07/10/23 0904 MR#: [id number] Acct: [id number] Name: ISA MAYEN Rep #:[id number] : 1960 62 From: Edu BROWN PA-C PCP: RICARDO ABRAHAM MD Status:REG [facility] Location: [place] [address] History and Physical History and Physical? Patient [...] - (12/2022) 4 WEEKS POST OP / [facility] LT Hand Tendon Repair - KNIFE WOUND? [...] osteophyte formation consistent with severe stage IV rede-zv-ayep osteoarthritis.? On the AP/tunnel view there is [...] more hypersensitive to the sunlight.? Also recommended xfey-ocp-dzrccxp probiotic while on antibiotic. DVT Prophylaxis:? Aspirin [...] Adkins MD; RICARDO ABRAHAM MD ~* Signed [facility] Work Phone: 1(366) 149-616902-19-2024 Miscellaneous Notes* Telephone Encounter - Yanet Karimi RN - 06/24/2023 2:26 PM EST Replied to patient. Closed documented in this encounterLake County [facility]02-19-2024 Miscellaneous Notes* Telephone Encounter - Natali Beach [...] advise. Natali Beach MA documented in this encounterLake County [facility]12-05-2023 Miscellaneous Notes* Telephone Encounter - Debra Hansen Ma - 04/09/2023 11:51 AM EST Images from the original note were not included. Approved Prior authorization approved Payer: [employer] [phone] CaseId:[id number];Status:Cancelled;Explanation:Prior Authorization currently on file.; Electronic appeal: Not [...] to its destination. To be filled at: [facility] [address] - [place] [address] [address] [facility] [phone] Pharmacy Benefits ISA MAYEN 2022 [facility] PDP Value - RTL ([employer]) Covered: Retail, Mail Order Unknown: Specialty, Long-Term Care Group ID: [id number] Group name: [facility] BIN: [id number] PCN: MEDDPRIME : 1960 Legal sex: M Address: [address] [place] [address] * Telephone Encounter - Debra Hansen Ma - 04/09/2023 8:18 AM EST Images from the original note were not included. Completed PA through [employer] for Mounjaro 5 mg and 7.5 mg. Received approval for Mounjaro. Patient notified. Approved Prior authorization approved Payer: [employer] [phone] CaseId:[id number];Status:Approved;Review Type:Prior Auth;Coverage Start Date:03/10/2023;Coverage End Date:04/08/2024; Approval [...] polyneuropathy, with long-term current use of insulin ([facility]) documented in this encounterLake County [facility]11-03-2023 Miscellaneous Notes* Telephone Encounter - Sharlene Escobar APRN.CNP - 03/08/2023 1:13 PM EDT Reviewed. Severe nonproliferative DR ?resolved mac edema. * Telephone Encounter - Natali Beach MA - 03/08/2023 10:49 AM EDT Received Eye Exam Report from [facility] Updated. Placed in provider's inbox for review. Route to MD for scanning. documented in this encounterLake County Memorial Hospital [facility]10-20-2023 Miscellaneous Notes* Telephone Encounter - Natali Beach MA - 02/22/2023 2:57 PM EDT Form faxed to [facility]. Please review and sign. Faxed to Transmission successful documented in this encounterLake County Memorial Hospital [facility] West08-18-2023 Procedure [facility]07-07-2023 Miscellaneous Notes* Telephone Encounter - Yanet Karimi RN - 11/09/2022 1:09 PM EDT ISA TIARRA (Fried: [id number]) Ozempic (1 MG/DOSE) 4MG/3ML pen-injectors Form [employer] Electronic PA Form (2016 [facility]) Created 17 hours ago Sent to Plan 2 minutes ago Plan Response 2 minutes ago Submit Clinical Questions 1 minute ago Determination Favorable less than a minute ago Message from Plan CaseId:[id number];Status:Approved;Review Type:Prior Auth;Coverage Start Date:10/10/2022;Coverage End Date:11/09/2023 Closed documented in this encounterLake County Memorial [facility]04-21-2023 History of Present illness Narrative* Sharlene Escobar APRN.CNP - 08/24/2022 12:00 PM EDT Reason [...] cap One capsule daily 90 capsule 3 Kpwscbsr-Vlvxqlfuv-Vredhfy HMB (KIRK) 7-7-1.5 gram pwpk Take 1 [...] polyneuropathy, with long-term current use of insulin ([facility]) (primary encounter diagnosis) (E11.3213, Z79.4) 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d by mild nonproliferative retinopathy and macular edema, with long-term current use of insulin ([facility]) Comment: Glycemic control is improved. He has [...] Making: Level: 3 - Low ERIK Dhillon, TECHNICIAN BIOLOGICAL HEALTH, CERTIFIED ENDOSCOPY TECHNICIAN-C, CDE Endocrinology [facility]/[place] [address] Fax: documented in this encounterLake County Memorial Hospital [facility]02-24-2023 Instructions* Patient Instructions* Sharlene Escobar APRN.CNP - 06/29/2022 12:20 PM EST Continue ozempic 2. Toujeo--increase to 68 units daily in AM. 3. Fiasp: Breakfast 24 units Lunch 20 units Dinner 20 units 4. Continue dietary efforts 5. Follow up on or after August 23. 6. Contact us to download Oligasis in 2 wks Download the [employer] leo to connect with us . ERIK Dhillon, TECHNICIAN BIOLOGICAL HEALTH, CERTIFIED ENDOSCOPY TECHNICIAN-C, CDE Endocrinology [facility] [address] Fax: documented in this encounterLake County Memorial [facility]02-24-2023 History of Present illness Narrative* Sharlene Escobar [...] cap One capsule daily 90 capsule 3 Ecitytgc-Hzluovrft-Gfrytmr HMB (KIRK) 7-7-1.5 gram pwpk Take 1 [...] edema, with long-term current use of insulin ([facility]) Comment: glycemic control is improving and he [...] after August 23. Contact us to download Oligasis in 2 wks Download the [employer] leo to connect with us . (E55.9) [...] which included preparing to see the patient, oqrw-es-bkkm patient care, completing clinical documentation, obtaining and/or reviewing separately obtained history, performing a medically appropriate examination, counseling and educating the pat ient/family/caregiver, and ordering medications, tests, or procedures. Sharlene Escobar, MSN, TECHNICIAN BIOLOGICAL HEALTH, CERTIFIED ENDOSCOPY TECHNICIAN-C, CDE Endocrinology [facility] Office [facility]/[address], [address] [place] [address] Fax: documented in this encounterLake County [facility]02-15-2023 Miscellaneous Notes* Telephone Encounter - Sharlene Escobar [...] expressed apology for popping off in his [employer] messages. He was calm and appreciative at the end of the call. He will keep his appt on 06/29/22. Thank you documented in this encounterLake County [facility]02-15-2023 Miscellaneous Notes* Telephone Encounter - Sharlene Escobar [...] wants to speak to her only directly. [phone]. documented in this encounterLake County [facility]01-30-2023 Miscellaneous Notes* Telephone Encounter - Debra Hansen Ma - 06/04/2022 11:27 AM EST Patient via mychart requesting refills as follows: Requested Prescriptions Pending Prescriptions Disp Refills flash glucose sensor (FREESTYLE ALONSO 2 SENSOR) kit 2 Each 11 Sig: Use as instructed to monitor glucose 3 times daily and continuously. Please review and advise. Debra Hansen Ma documented in this encounterLake County Memorial Hospital [facility] West01-27-2023 Procedure [facility]01-25-2023 Miscellaneous Notes* Telephone Encounter - Naty Sen MA - 05/30/2022 1:29 PM EST Office notes from 11/14/2021 and 05/25/2022 printed and faxed to: [phone] Confirmation fax received. Transmission successful. documented in this encounterL[facility] Miscellaneous Notes* Telephone Encounter - Sharlene Escobar APRN.CNP - 05/30/2022 10:11 AM EST Yes, that is ok. Rx sent * Telephone Encounter - Debra Hansen Ma - 05/30/2022 10:01 AM EST Received fax from [employer] ([facility]) stating the Unifine pen tips 8mm 31G are not covered. The only pen needles I can find preferred are the 33G by 09/18. Would these be okay to use? Patient was given temporary supply of the non preferred needles. Denial on your desk. documented in this encounterLake [facility]01-20-2023 Miscellaneous Notes* Telephone Encounter - Sharlene Escobar APRN.CNP - 05/25/2022 12:50 PM EST Reviewed. * Telephone Encounter - Sonya Lewis Ma - 05/25/2022 11:35 AM EST Eye Exam received and placed on providers mail inbox. documented in this encounterLake County [facility]01-20-2023 Instructions* Patient Instructions* Sharlene Escobar APRN.CNP - [...] up in 4-6 wks. Sharlene Escobar, MSN, TECHNICIAN BIOLOGICAL HEALTH, CERTIFIED ENDOSCOPY TECHNICIAN-C, CDE Endocrinology [facility] Medical [facility]/[address] [place] [address] Fax: [phone] documented in this encounterLake County [facility]01-20-2023 History of Present illness Narrative* Sharlene Escobar [...] cap One capsule daily 90 capsule 3 Zyvjdktu-Buxfuyqvt-Wlyxisu HMB (KIRK) 7-7-1.5 gram pwpk Take 1 [...] which included preparing to see the patient, xuue-bb-hrgi patient care, completing clinical documentation, obtaining and/or reviewing separately obtained history, performing a medically appropriate examination, counseling and educating the pat ient/family/caregiver, ordering medications, tests, or procedures, and communicating results to thepatient/family/caregiver. Sharlene Escobar, MSN, TECHNICIAN BIOLOGICAL HEALTH, CERTIFIED ENDOSCOPY TECHNICIAN-C, CDE Endocrinology [facility] Medical Office [facility]/[address], [address] [place] [address] Fax: documented in this encounterLake County [facility]10-18-2022 Miscellaneous Notes* Telephone Encounter - Blanche Cast - 02/20/2022 9:48 AM EDT Rescheduled * Telephone Encounter - Debra Hansen Ma - 02/20/2022 9:16 AM EDT Please see message. documented in this encounterLake County [facility]09-06-2022 Miscellaneous Notes* Telephone Encounter - Marcella Rivera [...] advise. Marcella Rivera LPN documented in this encounterLake County [facility]07-12-2022 Miscellaneous Notes* Telephone Encounter - Debra Hansen Ma - 11/14/2021 3:26 PM EDT Images from the original note were not included. Completed PA through [employer] for Ozempic. Approved Prior authorization approved Payer: [employer] [phone] CaseId:[id number];Status:Approved;Review Type:Prior Auth;Coverage Start Date:10/15/2021;Coverage End Date:11/14/2022; Approval [...] to its destination. To be filled at: [facility] [address] [place] [address] [address] [place] [phone] documented in this encounterLake County [facility]07-12-2022 Instructions* Patient Instructions* Sharlene Escobar APRN.GEAR GRINDING MACHINE OPERATOR - 11/14/2021 2:21 PM EDT 1. Continue jardiance, glipizide. 2. Continue 70/30 insulin Breakfast 55 units Dinner 55 units 3. Stop trulicity. 4. Start ozempic 1 mg once weekly. 5. Send me sugars in 2 wks and 4 wks. 6. Follow up in 3 months Sharlene Escobar, MSN, TECHNICIAN BIOLOGICAL HEALTH, CERTIFIED ENDOSCOPY TECHNICIAN-C, CDE Endocrinology [facility] Medical Office Building/[address], [address] [place] [address] Fax: documented in this encounterLake County Memorial [facility]07-12-2022 History of Present illness Narrative* Sharlene Escobar [...] subcutaneously one time a week. 12Each 3 Uvaelumd-Xaqjowszb-Gxoudfq HMB (KIRK) 7-7-1.5 gram pwpk Take 1 [...] polyneuropathy, with long-term current use of insulin ([facility]) (primary encounter diagnosis) Comment: Glycemic control has [...] Level: 4 - Moderate Sharlene Escobar, MSN, TECHNICIAN BIOLOGICAL HEALTH, CERTIFIED ENDOSCOPY TECHNICIAN-C, CDE Endocrinology [facility] Medical Office [facility]/[address], [address] [place] [address] Fax: documented in this encounterLake County [facility]06-06-2022 Miscellaneous Notes* Telephone Encounter - Marcella Rivera [...] advise. Marcella Rivera LPN documented in this encounterLake County [facility]04-15-2022 Miscellaneous Notes* Telephone Encounter - Debra Hansen Ma - 08/18/2021 10:13 AM EDT Received denial from [facility] for Trulicity. Completed PA through M: EDU MAYEN Fried: [id number] KEVIN Rx #: [id number] help? Call us at Outcome Approvedtoday CaseId:[id number];Status:Approved;Review Type:Prior Auth;Coverage Start Date:07/19/2021;Coverage End Date:08/18/2022; Drug Trulicity 1.5MG/0.5ML pen-injectors Form [employer] Electronic PA Form (2016 [facility]) Original Claim Info [id number] APPROVED documented in this encounterLake County [facility]01-03-2020 Hospital Discharge instructions* Instructions* Chalino Jackson, - 05/08/2019 Leaving against medical advice. Please return if any problems or concerns. Return if shortness of breath or any difficulty. * Attachments The following attachments cannot be sent through Care Everywhere. * COPD Exacerbation Plan (Maltese) * Diabetes: Insulin Pens: General Info (Maltese) * Sepsis: General Info (Maltese) * COPD: Prevent Lung Infections: General Info (Maltese) documented in this encounterSUMMA Work Phone: [phone] 384-311804-15-2015 History of Past illness Narrative* Problem Noted Date Resolved Date Chalazion of left lower eyelid 08/18/2014 0 05/20/2018 documented as of this encounter (statuses as of 08/18/2021) [address]15-2015 History of Past illness Narrative* Problem Noted Date Resolved Date Chalazion of left lower eyelid 08/18/2014 0 05/20/2018 documented as of this encounter (statuses as of 10/09/2021) [address]15-2015 History of Past illness Narrative* Problem Noted Date Resolved Date Chalazion of left lower eyelid 08/18/2014 0 05/20/2018 documented as of this encounter (statuses as of 11/14/2021) [address]15-2015 History of Past illness Narrative* Problem Noted Date Resolved Date Chalazion of left lower eyelid 08/18/2014 0 05/20/2018 documented as of this encounter (statuses as of 11/14/2021) [address]15-2015 History of Past illness Narrative* Problem Noted Date Resolved Date Chalazion of left lower eyelid 08/18/2014 0 05/20/2018 documented as of this encounter (statuses as of 01/09/2022) [address]15-2015 History of Past illness Narrative* Problem Noted Date Resolved Date Chalazion of left lower eyelid 08/18/2014 0 05/20/2018 documented as of this encounter (statuses as of 02/20/2022) [address]15-2015 History of Past illness Narrative* Problem Noted Date Resolved Date Chalazion of left lower eyelid 08/18/2014 0 05/20/2018 documented as of this encounter (statuses as of 05/25/2022) [address]15[address]2015 History of Past illness Narrative* Problem Noted Date Resolved Date Chalazion of left lower eyelid 08/18/2014 0 05/20/2018 documented as of this encounter (statuses as of 05/25/2022) [address]2015 History of Past illness Narrative* Problem Noted Date Resolved Date Chalazion of left lower eyelid 08/18/2014 0 05/20/2018 documented as of this encounter (statuses as of 05/30/2022) [address]2015 History of Past illness Narrative* Problem Noted Date Resolved Date Chalazion of left lower eyelid 08/18/2014 0 05/20/2018 documented as of this encounter (statuses as of 05/30/2022) [address] History of Past illness Narrative* Problem Noted Date Resolved Date Chalazion of left lower eyelid 08/18/2014 0 05/20/2018 documented as of this encounter (statuses as of 06/04/2022) [address]2015 History of Past illness Narrative* Problem Noted Date Resolved Date Chalazion of left lower eyelid 08/18/2014 0 05/20/2018 documented as of this encounter (statuses as of 06/05/2022) [address] History of Past illness Narrative* Problem Noted Date Resolved Date Chalazion of left lower eyelid 08/18/2014 0 05/20/2018 documented as of this encounter (statuses as of 06/05/2022) [address] History of Past illness Narrative* Problem Noted Date Resolved Date Chalazion of left lower eyelid 08/18/2014 0 05/20/2018 documented as of this encounter (statuses as of 06/20/2022) [address] History of Past illness Narrative* Problem Noted Date Resolved Date Chalazion of left lower eyelid 08/18/2014 0 05/20/2018 documented as of this encounter (statuses as of 06/20/2022) [address] History of Past illness Narrative* Problem Noted Date Resolved Date Chalazion of left lower eyelid 08/18/2014 0 05/20/2018 documented as of this encounter (statuses as of 06/21/2022) [address]15-2015 History of Past illness Narrative* Problem Noted Date Resolved Date Chalazion of left lower eyelid 08/18/2014 0 05/20/2018 documented as of this encounter (statuses as of 06/29/2022) [address] History of Past illness Narrative* Problem Noted Date Resolved Date Chalazion of left lower eyelid 08/18/2014 0 05/20/2018 documented as of this encounter (statuses as of 08/24/2022) [address]15-2015 History of Past illness Narrative* Problem Noted Date Resolved Date Chalazion of left lower eyelid 08/18/2014 0 05/20/2018 documented as of this encounter (statuses as of 11/09/2022) [address] History of Past illness Narrative* Problem Noted Date Diagnosed Date Resolved Date Chalazion of left lower eyelid 08/18/2014 05/20/2018 documented as of this encounter (statuses as of 12/21/2022) [address] History of Past illness Narrative* Problem Noted Date Diagnosed Date Resolved Date Chalazion of left lower eyelid 08/18/2014 05/20/2018 documented as of this encounter (statuses as of 02/22/2023) [address] History of Past illness Narrative* Problem Noted Date Diagnosed Date Resolved Date Chalazion of left lower eyelid 08/18/2014 05/20/2018 documented as of this encounter (statuses as of 03/09/2023) [address] History of Past illness Narrative* Problem Noted Date Diagnosed Date Resolved Date Chalazion of left lower eyelid 08/18/2014 05/20/2018 documented as of this encounter (statuses as of 04/09/2023) [address]15-2015 History of Past illness Narrative* Problem Noted Date Diagnosed Date Resolved Date Chalazion of left lower eyelid 08/18/2014 05/20/2018 documented as of this encounter (statuses as of 06/18/2023) [address] History of Past illness Narrative* Problem Noted Date Diagnosed Date Resolved Date Chalazion of left lower eyelid 08/18/2014 05/20/2018 documented as of this encounter (statuses as of 06/24/2023) [address] History of Past illness Narrative* Problem Noted Date Diagnosed Date Resolved Date Chalazion of left lower eyelid 08/18/2014 05/20/2018 documented as of this encounter (statuses as of 06/24/2023) [address] History of Past illness Narrative* Problem Noted Date Diagnosed Date Resolved Date Chalazion of left lower eyelid 08/18/2014 05/20/2018 documented as of this encounter (statuses as of 06/24/2023) [address] History of Past illness Narrative* Problem Noted Date Diagnosed Date Resolved Date Chalazion of left lower eyelid 08/18/2014 05/20/2018 documented as of this encounter (statuses as of 07/24/2023) [address] History of Past illness Narrative* Problem Noted Date Diagnosed Date Resolved Date Chalazion of left lower eyelid 08/18/2014 05/20/2018 documented as of this encounter (statuses as of 07/25/2023) [address] History of Past illness Narrative* Problem Noted Date Diagnosed Date Resolved Date Chalazion of left lower eyelid 08/18/2014 05/20/2018 documented as of this encounter (statuses as of 08/23/2023) [address] History of Past illness Narrative* Problem Noted Date Diagnosed Date Resolved Date Chalazion of left lower eyelid 08/18/2014 05/20/2018 documented as of this encounter (statuses as of 08/23/2023) [address] History of Past illness Narrative* Problem Noted Date Diagnosed Date Resolved Date Chalazion of left lower eyelid 08/18/2014 05/20/2018 documented as of this encounter (statuses as of 08/23/2023) [address] History of Past illness Narrative* Problem Noted Date Diagnosed Date Resolved Date Chalazion of left lower eyelid 08/18/2014 05/20/2018 documented as of this encounter (statuses as of 08/09/2023) [facility] Author Lexie Mathews [facility] July 18, 2023 12:17pm Note Date/Time July 18, 2023 12: 17pm [facility] Medical Records Department [address] [place] [address] Counseling Note - Pharmacy 07/18/23 1216 MR#: [id number] Acct: [id number] Name: ISA MAYEN Rep #:[id number] : 1960 62 From: Lexie Mathews PCP: RICARDO ABRAHAM MD Status:ADM RUDDY Y Location: MS3 OD854-5 Pharmacy [facility] has performed discharge medication reconciliation [...] Signature (if applicable): Date CC: ~ Signed [facility] Work Phone: Evaluation note* Diagnosis Diabetic [...] of left foot with fat layer exposed [facility] Work Phone: Evaluation note* Diagnosis Onset Date [...] left foot with fat layer exposed chronic [facility] Work Phone: Evaluation note* Diagnosis Uncontrolled type 2 diabetes mellitus with diabetic polyneuropathy Vitamin D deficiency Unspecified vitamin D deficiency documented in this encounter [facility]* Diagnosis Onset Date Resolution [...] left foot with fat layer exposed chronic [facility] Work Phone: Evaluation note* Diagnosis Type 2 diabetes mellitus with diabetic polyneuropathy, with long-term current use of insulin (HCC)- Primary Vitamin D deficiency Unspecified vitamin D deficiency Essential hypertension Unspecified essential hypertension Mixed hyperlipidemia Class 3 severe obesity with serious comorbidity and body mass index (BMI) of 45.0 to 49.9 in adult, unspecified obesity type (HCC) documented in this encounter [facility]* Diagnosis Onset Date Resolution [...] left foot with fat layer exposed chronic [facility] Work Phone: Evaluation note* Diagnosis Uncontrolled type 2 diabetes mellitus with complication, with long-term current use of insulin Type 2 diabetes mellitus with diabetic polyneuropathy, with long-term current use of insulin (HCC) documented in this encounter [facility]* Diagnosis Onset Date Resolution Status Achilles [...] left foot with fat layer exposed chronic [facility] Work Phone: Evaluation note* Diagnosis Onset [...] left foot with fat layer exposed chronic [facility] Work Phone: Evaluation note* Diagnosis Onset [...] left foot with fat layer exposed chronic [facility] Work Phone: Evaluation note* Diagnosis Onset [...] left foot with fat layer exposed chronic [facility] Work Phone: Evaluation note* Diagnosis Onset [...] left foot with fat layer exposed chronic [facility] Work Phone: Evaluation note* Diagnosis Type [...] obesity type (HCC) documented in this encounter [facility]* Diagnosis Onset Date Resolution Status Achilles [...] chronic Cellulitis of left lower limb resolved [facility] Work Phone: Evaluation note* Diagnosis Type 2 diabetes mellitus with diabetic polyneuropathy, with long-term current use of insulin (HCC) 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d by mild nonproliferative retinopathy and macular edema, with long-term current use of insulin (HCC) documented in this encounter [facility]* Diagnosis Type 2 diabetes [...] obesity type (HCC) documented in this encounter [facility] note* Diagnosis Onset Date Resolution Status [...] chronic Cellulitis of left lower limb resolved [facility] Work Phone: Evaluation note* Diagnosis Type 2 diabetes mellitus with diabetic polyneuropathy, with long-term current use of insulin (HCC)- Primary 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d by mild nonproliferative retinopathy and macular edema, with long-term current use of insulin ([facility]) Vitamin D deficiency Unspecified vitamin D deficiency Essential hypertension Unspecified essential hypertension Mixed hyperlipidemia Class 3 severe obesity with serious comorbidity and body mass index (BMI) of 40.0 to 44.9 in adult, unspecified obesity type (HCC) documented in this encounter [facility] noteNo assessment information availableWKettering Health [facility] Work Phone: Evaluation note* Diagnosis Onset Date Resolution Status Achilles rupture, right acut e Foot pain, right acute Type 2 diabetes mellitus with diabetic polyneuropathy acute Non-pressure chronic ulcer o f other part of right foot with fat layer exposed resolved [facility] Work Phone: Evaluation note* Diagnosis 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, with long-term current use of insulin ([facility]) documented in this encounter [facility]* Diagnosis Bilateral carpal tunnel syndrome- Primary Carpal tunnel syndrome documented in this encounter [facility]* Diagnosis Type 2 diabetes mellitus with diabetic polyneuropathy (HCC) Type II or unspecified type diabetes mellitus with neurological manifestations, not stated as uncontrolled documented in this encounter [facility]* Diagnosis Onset Date Resolution Status Status post total right knee replacement acute [facility] Work Phone: Evaluation note* Diagnosis 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, with long-term current use of insulin ([facility])- Primary documented in this encounter [facility]* Diagnosis 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, with long-term current use of insulin (HCC) Type 2 diabetes mellitus with diabetic polyneuropathy, with long-term current use of insulin ([facility]) documented in this encounter [facility]* Diagnosis 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, with long-term current use of insulin (HCC) Type 2 diabetes mellitus with diabetic polyneuropathy, with long-term current use of insulin (HCC) documented in this encounter [facility]* Diagnosis Bilateral carpal tunnel syndrome- Primary Carpal tunnel syndrome Bilateral carpal tunnel syndrome Carpal tunnel syndrome documented in this encounter [facility] note* Diagnosis Pre-operative examination- Primary Preoperative examination, unspecified Type 2 diabetes mellitus with diabetic polyneuropathy, with long-term current use of insulin ([facility]) Class 3 severe obesity with serious comorbidity and body mass index (BMI) of 40.0 to 44.9 in adult, unspecified obesity type (HCC) Sleep apnea, unspecified type Essential hypertension Unspecified essential hypertension Mixed hyperlipidemia Pulmonary nodule Solitary pulmonary nodule Smoker Tobacco use disorder 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 History of total [...] Lyrica for neuropathy, newer A1c requested from [facility]. Last Mounjaro injection 11/30/23, pt knows to HOLD next dose prior to surgery A1c 07/02/2022 6.3 from [facility], to be scanned into epic Hemoglobin A1C [...] 41.56 kg/m . documented in this encounter [facility]* Diagnosis Bilateral carpal tunnel syndrome Carpal tunnel syndrome documented in this encounter [facility]* Diagnosis Bilateral carpal tunnel syndrome- Primary Carpal tunnel syndrome documented in this encounter [facility]* Diagnosis Pre-operative examination- Primary [...] Tobacco use disorder 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 History of total knee replacement, right Bilateral carpal tunnel syndrome- Primary Carpal tunnel syndrome documented in this encounter [facility]* Diagnosis Pre-operative examination- Primary [...] Tobacco use disorder 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 History of total [...] obesity type (HCC) documented in this encounter [facility]* Diagnosis Carpal tunnel syndrome, bilateral upper limbs- Primary Bilateral carpal tunnel syndrome Carpal tunnel syndrome Paresthesia of skin Disturbance of skin sensation documented in this encounter [facility]* Diagnosis Pre-operative examination- Primary [...] Tobacco use disorder 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 History of total [...] thyroid function study documented in this encounter [facility]* Diagnosis Pre-operative examination- Primary [...] Tobacco use disorder 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 History of total knee replacement, 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, with long-term current use of insulin (HCC)- Primary documented in this encounter [facility] note* Diagnosis Pre-operative examination- Primary Preoperative [...] Tobacco use disorder 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 History of total [...] vitamin D deficiency [facility] Additional Instructions keep dressing clean, dry and intact until follow up follow up in 1 week maintain heel weightbearing status in cam walking boot on left foot, limit ambulation to transfer within home ice behind knee 3 times a day elevate limb above heart at rest [facility] Work Phone: [facility] Discharge instructions Additional [...] my office in 1 week. Implant Used?: [facility]WK[facility] Work Phone: Reason for referral (narrative)* Outpatient Procedure (Routine) - Pending Review Specialty Diagnoses / Procedures Referred By Contac t [facility] Diagnoses Bilateral carpal tunnel syndrome Procedures EMG(NEURO/NI) NERVE CONDUCTION STUDIES 9-10 STUDIES Valeria Mercer MD [address] [place] [address] [facility] [place] [address] [place] [address] Referral ID Status Reason Start Date Expiration Date Visits Requested Visits Authorized [id number] Pending Review Auto-Generat ed Referral 06/18/2023 06/18/2024 1 1 [facility] ([facility]ative)No reason for referral information availableWKettering Health Preble Work Phone: Summary Purpose Family History No Family History Records Found Relationship Condition Age at Onset Recorded Date/T maryjo mother Malignant neoplasm Unknown Hypertension Unknown Diabetes mellitus Unknown father Malignant neoplasm Unknown Advance Directives No Advanced Directives Records FoundDocuments on File Type Date Recorded Patient Contact Lens Polisher Expl anation ACP-Advance Directive ACP-Power of Reliability Engineer Documents on File Type Date Recorded Patient Contact Lens Polisher Expl anation Advance Directives and Living Will Power of Reliability Engineer Documents on File Type Date Recorded Patient Contact Lens Polisher Expl anation Advance Directive(s) 11/01/2015 6:32 AM Advance Directive Response Recorded Date/ Time Living Will Yes October 07, 2020 2 :15pm Power of Reliability Engineer Yes October 07, 2020 2:15pm Documents on File Type Date Recorded Patient Contact Lens Polisher Expl anation Advance Directive(s) 11/01/2015 6:32 AM Advance Directive Response Recorded Date/ Time Living Will Yes October 07, 2020 1 :15pm Power of Reliability Engineer Yes October 07, 2020 1:15pm Advance Directive Response Recorded Date/ Time Name of Medical Power of Reliability Engineer LEROY May 28, 2022 4:14pm Living Will Yes May 28 4:14pm Power of Reliability Engineer Yes May 28, 2022 4:14pm Advance Directive Response Recorded Date/ Time Name of Medical Power of Reliability Engineer LEROY May 28, 2022 5:14pm Living Will Yes May 28 5:14pm Power of Reliability Engineer Yes May 28, 2022 5:14pm Advance Directive Response Recorded Date/ Time Living Will Yes May 28 5:14pm Power of Reliability Engineer Yes May 28, 2022 5:14pm Advance Directive Response Recorded Date/ Time Name of Medical Power of Reliability Engineer UNSURE December 14, 2022 3:13pm Living Will Yes December 14 3:13pm Power of Reliability Engineer Yes December 14, 2 023 3:13pm Advance Directive Response Recorded Date/ Time Name of Medical Power of Reliability Engineer UNSURE December 14, 2022 2:13pm Living Will Yes December 14 2:13pm Power of Reliability Engineer Yes December 14, 2 023 2:13pm Advance Directive Response Recorded Date/ Time Living Will Yes June 24, 2 024 10:28am Power of Reliability Engineer Yes June 24, 2023 10:28am Advance Directive Response Recorded Date/ Time Name of Medical Power of Reliability Engineer LEROY BELTRE July 17, 2023 4:10pm Living Will Yes July 17, 2023 4:10pm Power of Reliability Engineer Yes July 16 4:10pm Advance Directive Response Recorded Date/ Time Do you have a Healthcare Power of Reliability Engineer? Yes January 07, 2025 2:40pm Name of Medical Power of Reliability Engineer SO December 10, 2024 8:47am Chief Complaint [...] polyneuropathy, with long-term current use of insulin ([facility]) Sharlene Escobar APRN.[facility] [address] [address] Referral ID Status Reason Start Date Expiration Date V isits Requested Visits Authorized [id number] Authorized 10/15/2021 11/14/2022 1 1 Specialty Diagnoses [...] ASSMT&IVNTJ INDIV EACH 15 GA Sharlene Escobar, DANN.[facility] [address] [address] Referral ID Status Reason Start Date Expiration Date Visits Requested Visits Authorized [id number] Authorized PCP Requested Referral 08/23/2023 08/22/2024 1 1 Additional Source Comments (unrecognized sect ion and content) No Status Records FoundNo Status Records FoundNo Status Records FoundNo Status Records FoundNo Status Records FoundNo Status Records FoundNo Status Records Found INFORMATION SOURCE (unrecogn ized section and content) DATE CREATED AUTHOR 12/05/2017 [facility] DATE CREATED AUTHOR AUTHOR'S ORGANIZ ATION 02/14/2018 [facility] DATE CREATED AUTHOR AUTHOR'S ORGANIZ ATION 10/13/2020 [facility] DATE CREATED AUTHOR AUTHOR'S ORGANIZ ATION 05/28/2021 [facility] DATE CREATED AUTHOR AUTHOR'S ORGANIZ ATION 01/31/2024 [facility] DATE CREATED AUTHOR AUTHOR'S ORGANIZ ATION 02/20/2025 [facility] DATE CREATED AUTHOR AUTHOR'S ORGANIZ ATION [facility]/20[facility] Reason for Visit (unrecogniz ed section [...] Problem Reason Comments Dilated Eye Exam Report [facility] Reason Comments Appointment Reason Comments office notes request [facility] [place] Reason Comments Med Change Request Reason Comments Schedule Surgery Reason Comments Consult Reason Comments Request Outside Medical Records Reason Comments New Bilateral CTS - Referred by Ricardo Abraham Reason Comments Post Op Reason Comments Training Development Specialist - Other Reason Comments PA--Loreta Millan U300 Reason Comments Results Reason Onset Date Comments EMG 08/09/2023 Specialty Diagnoses / Procedures Referred By [place] younger Referred To Contact [facility] [place] Diagnoses Bilateral carpal tunnel syndrome Procedures EMG(NEURO/NI) NERVE CONDUCTION STUDIES 9-10 STUDIES Valeria Mercer MD [address] [place] [address] Neurological [place] [id number] Referral ID Status Reason Start Date Expiration Date V isits Requested Visits Authorized [id number] Closed Auto-Generate d Referral 06/18/2023 06/18/2024 1 1 Reason Comments PA--FreeStyle Alonso 2 Sensors Reason Comments Follow Up Insulin Dependent Diabetes Mellitus Reason Comments PA--Mounjaro Reason Onset Date Comments Refill Request 07/09/2024 Reason Comments Office Notes [facility] [place] Reason Comments Follow Up Establish Patient Insulin [...] or prosecute any alcohol or drug abuse patient.[facility] the event this information is protected by the Federal Confidentiality of Alcohol and Drug Abuse Patient Records regulations: The Federal rules restrict any use of the information to criminally investigate or prosecute any alcohol or drug abuse patient.[facility]In the event this information is protected by the Federal Confidentiality of Alcohol and Drug Abuse Patient Records regulations: The Federal rules restrict any use of the information to criminally investigate or prosecute any alcohol or drug abuse patient.[facility]In the event this information is protected by the Federal Confidentiality of Alcohol and Drug Abuse Patient Records regulations: The Federal rules restrict any use of the information to criminally investigate or prosecute any alcohol or drug abuse patient.[facility]In the event this information is protected by the Federal Confidentiality of Alcohol and Drug Abuse Patient Records regulations: The Federal rules restrict any use of the information to criminally investigate or prosecute any alcohol or drug abuse patient.[facility]In the event this information is protected by the Federal Confidentiality of Alcohol and Drug Abuse Patient Records regulations: The Federal rules restrict any use of the information to criminally investigate or prosecute any alcohol or drug abuse patient.[facility] WestIn the event this information is protected by the Federal Confidentiality of Alcohol and Drug Abuse Patient Records regulations: The Federal rules restrict any use of the information to criminally investigate or prosecute any alcohol or drug abuse patient.[facility] WestIn the event this information is protected by the Federal Confidentiality of Alcohol and Drug Abuse Patient Records regulations: The Federal rules restrict any use of the information to criminally investigate or prosecute any alcohol or drug abuse patient.[facility] WestIn the event this information is protected by the Federal Confidentiality of Alcohol and Drug Abuse Patient Records regulations: The Federal rules restrict any use of the information to criminally investigate or prosecute any alcohol or drug abuse patient.[facility] WestIn the event this information is protected by the Federal Confidentiality of Alcohol and Drug Abuse Patient Records regulations: The Federal rules restrict any use of the information to criminally investigate or prosecute any alcohol or drug abuse patient.[facility] WestIn the event this information is protected by the Federal Confidentiality of Alcohol and Drug Abuse Patient Records regulations: The Federal rules restrict any use of the information to criminally investigate or prosecute any alcohol or drug abuse patient.[facility] WestIn the event this information is protected by the Federal Confidentiality of Alcohol and Drug Abuse Patient Records regulations: The Federal rules restrict any use of the information to criminally investigate or prosecute any alcohol or drug abuse patient.[facility] WestIn the event this information is protected by the Federal Confidentiality of Alcohol and Drug Abuse Patient Records regulations: The Federal rules restrict any use of the information to criminally investigate or prosecute any alcohol or drug abuse patient.[facility]In the event this information is protected by the Federal Confidentiality of Alcohol and Drug Abuse Patient Records regulations: The Federal rules restrict any use of the information to criminally investigate or prosecute any alcohol or drug abuse patient.[facility] WestIn the event this information is protected by the Federal Confidentiality of Alcohol and Drug Abuse Patient Records regulations: The Federal rules restrict any use of the information to criminally investigate or prosecute any alcohol or drug abuse patient.[facility] WestIn the event this information is protected by the Federal Confidentiality of Alcohol and Drug Abuse Patient Records regulations: The Federal rules restrict any use of the information to criminally investigate or prosecute any alcohol or drug abuse patient.[facility] WestIn the event this information is protected by the Federal Confidentiality of Alcohol and Drug Abuse Patient Records regulations: The Federal rules restrict any use of the information to criminally investigate or prosecute any alcohol or drug abuse patient.[facility] WestIn the event this information is protected by the Federal Confidentiality of Alcohol and Drug Abuse Patient Records regulations: The Federal rules restrict any use of the information to criminally investigate or prosecute any alcohol or drug abuse patient.[facility] WestIn the event this information is protected by the Federal Confidentiality of Alcohol and Drug Abuse Patient Records regulations: The Federal rules restrict any use of the information to criminally investigate or prosecute any alcohol or drug abuse patient.[facility] WestIn the event this information is protected by the Federal Confidentiality of Alcohol and Drug Abuse Patient Records regulations: The Federal rules restrict any use of the information to criminally investigate or prosecute any alcohol or drug abuse patient.[facility] WestIn the event this information is protected by the Federal Confidentiality of Alcohol and Drug Abuse Patient Records regulations: The Federal rules restrict any use of the information to criminally investigate or prosecute any alcohol or drug abuse patient.[facility] WestIn the event this information is protected by the Federal Confidentiality of Alcohol and Drug Abuse Patient Records regulations: The Federal rules restrict any use of the information to criminally investigate or prosecute any alcohol or drug abuse patient.[facility] WestIn the event this information is protected by the Federal Confidentiality of Alcohol and Drug Abuse Patient Records regulations: The Federal rules restrict any use of the information to criminally investigate or prosecute any alcohol or drug abuse patient.[facility] WestIn the event this information is protected by the Federal Confidentiality of Alcohol and Drug Abuse Patient Records regulations: The Federal rules restrict any use of the information to criminally investigate or prosecute any alcohol or drug abuse patient.[facility] WestIn the event this information is protected by the Federal Confidentiality of Alcohol and Drug Abuse Patient Records regulations: The Federal rules restrict any use of the information to criminally investigate or prosecute any alcohol or drug abuse patient.[facility] WestIn the event this information is protected by the Federal Confidentiality of Alcohol and Drug Abuse Patient Records regulations: The Federal rules restrict any use of the information to criminally investigate or prosecute any alcohol or drug abuse patient.[facility] WestIn the event this information is protected by the Federal Confidentiality of Alcohol and Drug Abuse Patient Records regulations: The Federal rules restrict any use of the information to criminally investigate or prosecute any alcohol or drug abuse patient.[facility]In the event this information is protected by the Federal Confidentiality of Alcohol and Drug Abuse Patient Records regulations: The Federal rules restrict any use of the information to criminally investigate or prosecute any alcohol or drug abuse patient.[facility] WestIn the event this information is protected by the Federal Confidentiality of Alcohol and Drug Abuse Patient Records regulations: The Federal rules restrict any use of the information to criminally investigate or prosecute any alcohol or drug abuse patient.[facility] WestIn the event this information is protected by the Federal Confidentiality of Alcohol and Drug Abuse Patient Records regulations: The Federal rules restrict any use of the information to criminally investigate or prosecute any alcohol or drug abuse patient.[facility] WestIn the event this information is protected by the Federal Confidentiality of Alcohol and Drug Abuse Patient Records regulations: The Federal rules restrict any use of the information to criminally investigate or prosecute any alcohol or drug abuse patient.[facility] WestIn the event this information is protected by the Federal Confidentiality of Alcohol and Drug Abuse Patient Records regulations: The Federal rules restrict any use of the information to criminally investigate or prosecute any alcohol or drug abuse patient.[facility]In the event this information is protected by the Federal Confidentiality of Alcohol and Drug Abuse Patient Records regulations: The Federal rules restrict any use of the information to criminally investigate or prosecute any alcohol or drug abuse patient.[facility] WestIn the event this information is protected by the Federal Confidentiality of Alcohol and Drug Abuse Patient Records regulations: The Federal rules restrict any use of the information to criminally investigate or prosecute any alcohol or drug abuse patient.[facility]In the event this information is protected by the Federal Confidentiality of Alcohol and Drug Abuse Patient Records regulations: The Federal rules restrict any use of the information to criminally investigate or prosecute any alcohol or drug abuse patient.[facility] WestIn the event this information is protected by the Federal Confidentiality of Alcohol and Drug Abuse Patient Records regulations: The Federal rules restrict any use of the information to criminally investigate or prosecute any alcohol or drug abuse patient.[facility] WestIn the event this information is protected by the Federal Confidentiality of Alcohol and Drug Abuse Patient Records regulations: The Federal rules restrict any use of the information to criminally investigate or prosecute any alcohol or drug abuse patient.[facility] WestIn the event this information is protected by the Federal Confidentiality of Alcohol and Drug Abuse Patient Records regulations: The Federal rules restrict any use of the information to criminally investigate or prosecute any alcohol or drug abuse patient.[facility] WestIn the event this information is protected by the Federal Confidentiality of Alcohol and Drug Abuse Patient Records regulations: The Federal rules restrict any use of the information to criminally investigate or prosecute any alcohol or drug abuse patient.[facility]In the event this information is protected by the Federal Confidentiality of Alcohol and Drug Abuse Patient Records regulations: The Federal rules restrict any use of the information to criminally investigate or prosecute any alcohol or drug abuse patient.[facility] WestIn the event this information is protected by the Federal Confidentiality of Alcohol and Drug Abuse Patient Records regulations: The Federal rules restrict any use of the information to criminally investigate or prosecute any alcohol or drug abuse patient.[facility] WestIn the event this information is protected by the Federal Confidentiality of Alcohol and Drug Abuse Patient Records regulations: The Federal rules restrict any use of the information to criminally investigate or prosecute any alcohol or drug abuse patient.[facility] WestIn the event this information is protected by the Federal Confidentiality of Alcohol and Drug Abuse Patient Records regulations: The Federal rules restrict any use of the information to criminally investigate or prosecute any alcohol or drug abuse patient.[facility] WestIn the event this information is protected by the Federal Confidentiality of Alcohol and Drug Abuse Patient Records regulations: The Federal rules restrict any use of the information to criminally investigate or prosecute any alcohol or drug abuse patient.[facility] WestIn the event this information is protected by the Federal Confidentiality of Alcohol and Drug Abuse Patient Records regulations: The Federal rules restrict any use of the information to criminally investigate or prosecute any alcohol or drug abuse patient.[facility] WestIn the event this information is protected by the Federal Confidentiality of Alcohol and Drug Abuse Patient Records regulations: The Federal rules restrict any use of the information to criminally investigate or prosecute any alcohol or drug abuse patient.[facility] WestIn the event this information is protected by the Federal Confidentiality of Alcohol and Drug Abuse Patient Records regulations: The Federal rules restrict any use of the information to criminally investigate or prosecute any alcohol or drug abuse patient.[facility] WestIn the event this information is protected by the Federal Confidentiality of Alcohol and Drug Abuse Patient Records regulations: The Federal rules restrict any use of the information to criminally investigate or prosecute any alcohol or drug abuse patient.[facility] WestIn the event this information is protected by the Federal Confidentiality of Alcohol and Drug Abuse Patient Records regulations: The Federal rules restrict any use of the information to criminally investigate or prosecute any alcohol or drug abuse patient.[facility]In the event this information is protected by the Federal Confidentiality of Alcohol and Drug Abuse Patient Records regulations: The Federal rules restrict any use of the information to criminally investigate or prosecute any alcohol or drug abuse patient.[facility] WestIn the event this information is protected by the Federal Confidentiality of Alcohol and Drug Abuse Patient Records regulations: The Federal rules restrict any use of the information to criminally investigate or prosecute any alcohol or drug abuse patient.[facility] WestIn the event this information is protected by the Federal Confidentiality of Alcohol and Drug Abuse Patient Records regulations: The Federal rules restrict any use of the information to criminally investigate or prosecute any alcohol or drug abuse patient.[facility] WestIn the event this information is protected by the Federal Confidentiality of Alcohol and Drug Abuse Patient Records regulations: The Federal rules restrict any use of the information to criminally investigate or prosecute any alcohol or drug abuse patient.[facility] WestIn the event this information is protected by the Federal Confidentiality of Alcohol and Drug Abuse Patient Records regulations: The Federal rules restrict any use of the information to criminally investigate or prosecute any alcohol or drug abuse patient.[facility] WestIn the event this information is protected by the Federal Confidentiality of Alcohol and Drug Abuse Patient Records regulations: The Federal rules restrict any use of the information to criminally investigate or prosecute any alcohol or drug abuse patient.[facility] WestIn the event this information is protected by the Federal Confidentiality of Alcohol and Drug Abuse Patient Records regulations: The Federal rules restrict any use of the information to criminally investigate or prosecute any alcohol or drug abuse patient.[facility] WestIn the event this information is protected by the Federal Confidentiality of Alcohol and Drug Abuse Patient Records regulations: The Federal rules restrict any use of the information to criminally investigate or prosecute any alcohol or drug abuse patient.[facility] WestIn the event this information is protected by the Federal Confidentiality of Alcohol and Drug Abuse Patient Records regulations: The Federal rules restrict any use of the information to criminally investigate or prosecute any alcohol or drug abuse patient.[facility] WestIn the event this information is protected by the Federal Confidentiality of Alcohol and Drug Abuse Patient Records regulations: The Federal rules restrict any use of the information to criminally investigate or prosecute any alcohol or drug abuse patient.[facility] WestIn the event this information is protected by the Federal Confidentiality of Alcohol and Drug Abuse Patient Records regulations: The Federal rules restrict any use of the information to criminally investigate or prosecute any alcohol or drug abuse patient.[facility] WestIn the event this information is protected by the Federal Confidentiality of Alcohol and Drug Abuse Patient Records regulations: The Federal rules restrict any use of the information to criminally investigate or prosecute any alcohol or drug abuse patient.[facility] WestIn the event this information is protected by the Federal Confidentiality of Alcohol and Drug Abuse Patient Records regulations: The Federal rules restrict any use of the information to criminally investigate or prosecute any alcohol or drug abuse patient.[facility] WestIn the event this information is protected by the Federal Confidentiality of Alcohol and Drug Abuse Patient Records regulations: The Federal rules restrict any use of the information to criminally investigate or prosecute any alcohol or drug abuse patient.[facility] the event this information is protected by the Federal Confidentiality of Alcohol and Drug Abuse Patient Records regulations: The Federal rules restrict any use of the information to criminally investigate or prosecute any alcohol or drug abuse patient.[facility] the event this information is protected by the Federal Confidentiality of Alcohol and Drug Abuse Patient Records regulations: The Federal rules restrict any use of the information to criminally investigate or prosecute any alcohol or drug abuse patient.[facility] WestIn the event this information is protected by the Federal Confidentiality of Alcohol and Drug Abuse Patient Records regulations: The Federal rules restrict any use of the information to criminally investigate or prosecute any alcohol or drug abuse patient.[facility] Teams (unrecognized sec tion and content) Escrow Representative Relationship Specialty Start Date End Date Ricardo Abraham [address] [place] [address] PCP - General Cardiology 05/22/19 Escrow Representative Relationship Specialty Start Date End Date Ricardo Abraham [address] [place] [address] PCP - General Cardiology 05/22/19 Escrow Representative Relationship Specialty Start Date End Date Ricardo Abraham [address] [place] [facility] [place] [address] PCP - General Cardiology 05/22/19 Escrow Representative Relationship Specialty Start Date End Date Ricardo Abraham [address] [place] [address] PCP - General Cardiology 05/22/19 Escrow Representative Relationship Specialty Start Date End Date Ricardo Abraham [address] [place] [address] PCP - General Cardiology 05/22/19 Escrow Representative Relationship Specialty Start Date End Date Ricardo Abraham [address] [place] [address] PCP - General Cardiology 05/22/19 Escrow Representative Relationship Specialty Start Date End Date Ricardo Abraham [address] [place] [address] PCP - General Cardiology 05/22/19 Team Status: [...] Dr. Anita Zhang MD Other Provider Active Escrow Representative Relationship Specialty Start Date End Date Ricardo Abraham [address] [place] [address] PCP - General Cardiology 05/22/19 Escrow Representative Relationship Specialty Start Date End Date Ricardo Abraham [address] [place] [address] PCP - General Cardiology 05/22/19 Team Status: Inactive Member Role Status Dates RICARDO ABRAHAM MD Primary Care Provider Active Dr. Mario Yun DPM Attending Provider, Referring Provider Active Escrow Representative Relationship Specialty Start Date End Date Ricardo Abraham [address] [place] [address] PCP - General Cardiology 05/22/19 Escrow Representative Relationship Specialty Start Date End Date Ricardo Abraham [address] [place] [address] PCP - General Cardiology 05/22/19 Escrow Representative Relationship Specialty Start Date End Date Ricardo Abraham [address] [place] [address] PCP - General Cardiology 05/22/19 Escrow Representative Relationship Specialty Start Date End Date Ricardo Abraham [address] [place] [address] PCP - General Cardiology 05/22/19 Team Status: Inactive Member Role Status Dates RICARDO ABRAHAM MD Primary Care Provider Active Dr. Anita Zhang MD Attending Provider, Referring P elizabeth Active Escrow Representative Relationship Specialty Start Date End Date Ricardo Abraham [address] [place] [address] PCP - General Cardiology 05/22/19 Escrow Representative Relationship Specialty Start Date End Date Ricardo Abraham [address] [place] [address] PCP - General Cardiology 05/22/19 Escrow Representative Relationship Specialty Start Date End Date Ricardo Abraham [address] [place] [address] PCP - General Cardiology 05/22/19 Team Status: Inactive Member Role Status Dates RICARDO ABRAHAM MD Primary Care Provider Active Dr. Mario Yun , DPM Attending Provider, Referring Provider Active Dr. Luis A Adkins MD Other Provider Active Escrow Representative Relationship Specialty Start Date End Date Ricardo Abraham MD PCP - General Cardiology 05/22/19 Escrow Representative Relationship Specialty Start Date End Date Ricardo Abraham MD PCP - General Cardiology 05/22/19 Escrow Representative Relationship Specialty Start Date End Date Ricardo Abraham MD PCP - General Cardiology 05/22/19 Escrow Representative Relationship Specialty Start Date End Date Ricardo Abraham MD PCP - General Cardiology 05/22/19 Escrow Representative Relationship Specialty Start Date End Date Ricardo [...] Dr. Minoo Myers DO Other Provider Active Escrow Representative Relationship Specialty Start Date End Date Ricardo Abraham MD [address] [place] [address] PCP - General Cardiology 05/22/19 Escrow Representative Relationship Specialty Start Date End Date Ricardo Abraham MD [address] [place] [address] PCP - General Cardiology 05/22/19 Team Status: Inactive Member Role Status Dates RICARDO ABRAHAM MD Primary Care Provider Active Dr. Luis A Adkins MD Attending Provider Active Escrow Representative Relationship Specialty Start Date End Date Ricardo Abraham MD [address] [place] [address] PCP - General Cardiology 05/22/19 Escrow Representative Relationship Specialty Start Date End Date Ricardo Abraham MD [address] [place] [address] PCP - General Cardiology 05/22/19 Escrow Representative Relationship Specialty Start Date End Date Ricardo Abraham MD [address] [place] [address] PCP - General Cardiology 05/22/19 Escrow Representative Relationship Specialty Start Date End Date Ricardo Abraham MD [address] [place] [address] PCP - General Cardiology 05/22/19 Escrow Representative Relationship Specialty Start Date End Date Ricardo Abraham MD [address] [place] [address] PCP - General Cardiology 05/22/19 Escrow Representative Relationship Specialty Start Date End Date Ricardo Abraham MD [address] [place] [address] PCP - General Cardiology 05/22/19 Escrow Representative Relationship Specialty Start Date End Date Ricardo Abraham MD [address] [place] [address] PCP - General Cardiology 05/22/19 Escrow Representative Relationship Specialty Start Date End Date Ricardo Abraham MD [address] [place] [address] PCP - General Cardiology 05/22/19 Escrow Representative Relationship Specialty Start Date End Date Ricardo Abraham MD [address] [place] [address] PCP - General Cardiology 05/22/19 Escrow Representative Relationship Specialty Start Date End Date Ricardo Abraham MD [address] [place] [address] PCP - General Cardiology 05/22/19 Escrow Representative Relationship Specialty Start Date End Date Ricardo Abraham MD [address] [place] [address] PCP - General Cardiology 05/22/19 Escrow Representative Relationship Specialty Start Date End Date Ricardo Abraham MD [address] [place] [address] PCP - General Cardiology 05/22/19 Escrow Representative Relationship Specialty Start Date End Date Ricardo Abraham MD [address] [place] [address] PCP - General Cardiology 05/22/19 Escrow Representative Relationship Specialty Start Date End Date Ricardo Abraham MD [address] [place] [address] PCP - General Cardiology 05/22/19 Escrow Representative Relationship Specialty Start Date End Date Ricardo Abraham MD [address] [place] [address] PCP - General Cardiology 05/22/19 Escrow Representative Relationship Specialty Start Date End Date Ricardo Abraham MD [address] [place] [address] PCP - General Cardiology 05/22/19 Escrow Representative Relationship Specialty Start Date End Date Ricardo Abraham MD [address] [place] [address] PCP - General Cardiology 05/22/19 Escrow Representative Relationship Specialty Start Date End Date Ricardo Abraham MD [address] [place] [address] PCP - General Cardiology 05/22/19 Escrow Representative Relationship Specialty Start Date End Date Ricardo Abraham MD [address] [facility] [place] [address] PCP - General Cardiology 05/22/19 Escrow Representative Relationship Specialty Start Date End Date Ricardo Abraham MD [address] [facility] [place] [facility] [place] [address] PCP - General Cardiology 05/22/19 Escrow Representative Relationship Specialty Start Date End Date Ricardo Abraham MD [address] [facility] [place] [facility] [place] [address] PCP - General Cardiology 05/22/19 Escrow Representative Relationship Specialty Start Date End Date Ricardo Abraham MD [address] [facility] [place] [facility] [place] [address] PCP - General Cardiology 05/22/19 Escrow Representative Relationship Specialty Start Date End Date Ricardo Abraham MD [address] [facility] [place] [address] PCP - General Cardiology 05/22/19 Escrow Representative Relationship Specialty Start Date End Date Ricardo Abraham MD [address] [facility] [place] [facility] [place] [address] PCP - General Cardiology 05/22/19 Escrow Representative Relationship Specialty Start Date End Date Ricardo Abraham MD [address] [facility] [place] [facility] [place] [address] PCP - General Cardiology 05/22/19 Team Status: [...] December 11, 2024 End: December 11, 2024 Escrow Representative Relationship Specialty Start Date End Date Ricardo Abraham MD [address] [place] [address] PCP - General Cardiology 05/22/19 Team Status: [...] Provider Active Star t: January 08, 2025 Escrow Representative Relationship Specialty Start Date End Date Ricardo Abraham MD [address] [place] [address] PCP - General Cardiology 05/22/19 Goals (unrecognized [...] BE BASED ON THE PRIMARY CLINICAL RECORDS. [facility]. provides no warranty or guarantee of the accuracy or completeness of information in this document.
[2025-04-26] MEDS: fentaNYL 100 MCG/2 ML Ampul 50 MCG IV (01:08)
--- NOTE | 2025-04-26 01:25 | RAD_ITS ---
PROCEDURE: SHOULDER MIN 2 VIEWS 04/26/2025 REASON FOR EXAM: POSTREDUCTION TECHNIQUE: Procedure Code: RADSH Modality: DX Procedure: SHOULDER MIN 2 VIEWS COMPARISON: 04/25/2025. FINDINGS: Complete reduction of the previously described dislocation of the humeral head in relation to the glenoid. Good alignment is noted on the current exam. No fracture is seen. RAD/Shoulder min 2 Views IMPRESSION: Complete reduction of the previously described dislocation of the humeral head in relation to the glenoid. Good alignment is noted on the current exam. Reading Location[facility] [address]
[2025-04-26 01:42] LABS: Troponin T High Sens 2 HR 234 ng/L (<=22)
--- NOTE | 2025-04-26 01:54 | NURSING ---
Pt pulled self up in bed and shoulder moved back out of joint. Dr welsh.
--- NOTE | 2025-04-26 02:30 | RAD_ITS ---
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 The components appear to be well-seated. There is no dislocation. There is no fracture evident. RAD/Shoulder min 2 Views IMPRESSION: Right TSA has been reduced. No evidence of a fracture nor component failure. Reading Location: [id number]
[2025-04-26 03:21] LABS: Troponin T High Sens 4 HR 217 ng/L (<=22)
[2025-04-26] MEDS: 0.9% Normal Saline (1000mL) 1,000 ML 100 ML IV ×3 (03:39→23:37)
[2025-04-26 06:49] LABS: Hematocrit 40.2 % (40-54); Hemoglobin 13.0 g/dL (13.0-16.5); Immature Granulocytes Count 0.060 X10^3/uL (0.0-0.0); Mean Corp Hgb Conc 32.3 g/dL (32-36); Mean Corpuscular Volume 88.0 fL (80-94); Mean Platelet Vol. 11.1 fl (6.2-12.0); NRBC Flagged by Analyzer 0 % (0-5); Platelet Count 151 K/mm3 (150-450); RBC Distribution Width CV 14.3 % (11.6-14.6); RBC Distribution Width SD 45.8 fl (35.1-43.9); Red Blood Count 4.57 M/mm3 (4.6-6.2); White Blood Count 11.4 K/mm3 (4.4-11.0)
[2025-04-26 07:20] LABS: Anion Gap 24 (5-15); BUN 76 mg/dL (4-19); BUN/Creat Ratio 10.8 RATIO (10-20); Calcium,Total 8.7 mg/dL (7.6-11.0); Carbon Dioxide 15.0 mmol/L (21.0-32.0); Chloride 102 mmol/L (98-108); Estimated Creatinine Clearance 14.43 ml/min (50-250); Glucose 96 mg/dL (70-99); Potassium 4.5 mmol/L (3.3-5.1)
[2025-04-26] MEDS: Heparin Injection (Vial) 5,000 UNIT/ML VIAL 5000 UNIT SC ×2 (08:51→22:12)
--- NOTE | 2025-04-26 08:56 | PCM.PN.HOSP ---
Subjective Subjective Opens eyes briefly, then dozes off. Objective Data Objective Data Vital Signs: Vital Signs Temp Pulse Resp BP Pulse Ox O2 Del Method O2 Flow Rate 36.9 C 80 14 110/54 L 95 Nasal Cannula 2 04/26/25 08:52 04/26/25 08:52 04/26/25 08:52 04/26/25 08:52 04/26/25 08:52 04/26/25 08:52 04/26/25 08:52 FiO2 94 04/26/25 01:15 Oxygen Flow Rate (L/min) [5] 6 Oxygen Flow Rate (L/min) [4] 6 Oxygen Flow Rate (L/min) [3] 10 Oxygen Flow Rate (L/min) [2] 6 Oxygen Flow Rate (L/min) [1 ( 2 Initial Baseline)] Oxygen Flow Rate (L/min) [1 ( 3 Initial Baseline)] Oxygen Flow Rate (L/min) 2 Oxygen Delivery Method [5] Nasal Cannula Oxygen Delivery Method [4] Nasal Cannula Oxygen Delivery Method [3] Nasal Cannula Oxygen Delivery Method [2] Nasal Cannula Oxygen Delivery Method [1 ( Nasal Cannula Initial Baseline)] Oxygen Delivery Method [1 ( Nasal Cannula Initial Baseline)] Oxygen Delivery Method Nasal Cannula Weight: 119.4 kg Body Mass Index (BMI) 34.7 Intake & Output: Intake and Output for Last 24 Hours 04/24/25 04/25/25 04/26/25 23:59 23:59 23:59 Intake Total 0 / 0 1000 / 1000 Output Total 0 / 0 0 / 0 Balance 0 / 0 1000 / 1000 Lab / Micro Data 04/26/25 06:02 04/26/25 06:02 Labs: Laboratory Results - last 24 hr 04/25/25 00:05: Urine Opiates Screen PRESUMPTIVE POSITIVE, U Buprenorphine Qual NEGATIVE, Ur Oxycodone Screen PRESUMPTIVE POSITIVE, Urine Methadone Screen NEGATIVE, Urine Fentanyl Screen NEGATIVE, Ur Barbiturates Screen NEGATIVE, Ur Phencyclidine Scrn NEGATIVE, Ur Amphetamines Screen NEGATIVE, U Benzodiazepines Scrn NEGATIVE, Urine Cocaine Screen PRESUMPTIVE POSITIVE, U Cannabinoids Screen NEGATIVE 04/25/25 22:54: WBC 16.7 H, RBC 5.04, Hgb 14.1, Hct 42.3, MCV 83.9, MCH 28.0, MCHC 33.3, RDW Std Deviation 43.7, RDW Coeff of Mimi 14.3, Plt Count 173, MPV 11.6, Immature Gran % (Auto) 0.700, Neut % (Auto) 74.2 H, Lymph % (Auto) 12.6 L, Loí[place] % (Auto) 11.2 H, Eos % (Auto) 0.9, Baso % (Auto) 0.4, Absolute Neuts (auto) 12.4 H, Absolute Lymphs (auto) 2.11, Nucleated RBC % 0, Differential Comment SCANNED, Sodium 137, Potassium 4.4, Chloride 95 L, Carbon Dioxide 17.5 L, Anion Gap 24 H, BUN 74 H, Creatinine 8.29 H*, Estim Creat Clear Calc 12.34 L, Est GFR (MDRD) Non-Af 7 L, BUN/Creatinine Ratio 8.9 L, Glucose 125 H, Calcium 9.4, Total Bilirubin 0.35, AST 40 H, ALT 19, Alkaline Phosphatase 62, Troponin T High Sens 305 H*, Total Protein 7.6, Albumin 4.3, Globulin 3.4, Albumin/Globulin Ratio 1.3, Ethyl Alcohol < 10.1 04/25/25 22:58: POC Glucose 135 H 04/25/25 23:48: Lactic Acid 1.1 04/26/25 00:05: Urine Color Yellow, Urine Clarity Sl. Cloudy, Urine pH 5.0, Ur Specific [place] 1.020, Urine Protein 100 H, Urine Glucose (UA) Normal, Urine Ketones Negative, Urine Occult Blood 250 H, Urine Nitrite Negative, Urine Bilirubin 1 H, Urine Urobilinogen 1 H, Ur Leukocyte Esterase 25 H, Urine RBC 5-10 SEEN, Urine WBC 0-5 SEEN, Ur Squamous Epith Cells 0 SEEN, Calcium Oxalate Crystal 1+, Urine Bacteria 1+, Hyaline Casts 5-10 SEEN, Urine Mucus 0 SEEN 04/26/25 00:28: POC Glucose 131 H 04/26/25 01:00: Troponin T Hi Sens 2 Hr 234 H* 04/26/25 03:00: Troponin T Hi Sens 4Hr 217 H* 04/26/25 03:29: POC Glucose 122 H 04/26/25 06:02: WBC 11.4 H, RBC 4.57 L, Hgb 13.0, Hct 40.2, MCV 88.0, MCH 28.4, MCHC 32.3, RDW Std Deviation 45.8 H, RDW Coeff of Mimi 14.3, Plt Count 151, MPV 11.1, Immature Gran % (Auto) 0.500, Neut % (Auto) 65.9, Lymph % (Auto) 19.1, Loíza % (Auto) 13.0 H, Eos % (Auto) 0.9, Baso % (Auto) 0.6, Absolute Neuts (auto) 7.5, Absolute Lymphs (auto) 2.18, Nucleated RBC % 0, Sodium 140, Potassium 4.5, Chloride 102, Carbon Dioxide 15.0 L, Anion Gap 24 H, BUN 76 H, Creatinine 7.00 H, Estim Creat Clear Calc 14.43 L, Est GFR (MDRD) Non-Af 8 L, BUN/Creatinine Ratio 10.8, Glucose 96, Calcium 8.7 04/26/25 06:28: POC Glucose 113 H Radiography Diagnostic Testing: Radiology Impression Chest X-Ray 04/25/25 22:44 IMPRESSION: Mild bilateral basilar atelectatic pulmonary changes. 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 Soft tissue ulcer underlying the posterior/plantar aspect of the calcaneum. No radiographic evidence of osteomyelitis. Calcaneal spur formation. Enthesophyte formation at the calcaneal insertion of Achilles tendon. Calcified atheromatous plaques are noted. Reading [facility] Brain CT 04/25/25 23:09 IMPRESSION: No acute intracranial process. Reading Location: [facility] Shoulder X-Ray 04/25/25 23:40 IMPRESSION: Reverse shoulder arthroplasty is again noted. Cranial displacement/dislocation of the humerus in relation to the glenoid at the level of the glenohumeral joint. Reading Location[facility] Shoulder X-Ray 04/26/25 01:25 IMPRESSION: Complete reduction of the previously described dislocation of the humeral head in relation to the glenoid. Good alignment is noted on the current exam. Reading Location: [facility] Shoulder X-Ray 04/26/25 02:30 IMPRESSION: Right TSA has been reduced. No evidence of a fracture nor component failure. Reading Location: [id number] Rhythm Strip Rhythm Strip: Sinus Rhythm Rate: 85 Ectopy: None Patient's Goals Of Care - F/U Goals Reviewed Goals of care reviewed with patient: Unable to assess Physical Exam Const alert and no apparent distress HEENT head/scalp atraumatic and moist oral mucous membranes Resp normal respiratory effort, no retractions, no use of accessory muscles and clear to auscultation bilaterally Cardio regular rate, regular rhythm, S1 normal heart sound and S2 normal heart sound GI normal to inspection, nondistended, normoactive bowel sounds, soft to palpation, non-tender and non-distended Extremity normal to inspection and full ROM Assessment & Plan Assessment/Plan (1) Acute renal failure: (2) Closed dislocation of right shoulder: PLAN: Plan SAMANTHA baseline creatinine around 0.95, admission Cr of 8.29, down to 7 today. nephrology consultation. HCTZ, lisinopril held check urine studies, kidney ultrasound. Acute metabolic encephalopathy metabolic from SAMANTHA/uremia, complicated by concomitant use of Percocet and pregabalin, which have been held. UA negative for infection. head CT negative. check ammonia, TSH. Right shoulder dislocation reduced in ED. sling. follow up with orthopaedics as outpt. Chronic medical conditions: Essential HTN? Blood pressures currently are stable, can resume his Norvasc? 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 Will hold his home medications? Insulin? Accu-Cheks Anxiety/depression? Stable? Continue with his Zoloft DVT: Heparin Charges/Coding Visit Charges Inpatient E&M: 66746 Subs Hosp L2
--- NOTE | 2025-04-26 11:22 | US_ITS ---
PROCEDURE: US KIDNEY AND BLADDER 04/26/2025 REASON FOR EXAM: SAMANTHA TECHNIQUE: Procedure Code: USKI Modality: US Procedure: KIDNEY AND BLADDER COMPARISON: None. FINDINGS: Bilateral kidneys appear normal in size and cortical thickness. Right kidney measures 12.4 x 6.7 x 5.6 cm. Left kidney measures 13.8 x 5.8 x 4.8 cm. No echogenic calculi or hydronephrosis on either side. No mass lesion. No perinephric fluid collection. Urinary bladder not visualized, likely collapsed. US/Kidney and Bladder IMPRESSION: Sonographically unremarkable kidneys. No hydronephrosis. Reading Location: [id number]
--- NOTE | 2025-04-26 12:45 | CASEMGMT ---
SAMIRA ROBERTSON Face to Face with patient for initial transition planning/care coordination assessment. SAMIRA ROBERTSON introduced self and role at [facility]. Patient lying in bed, alert and slightly confused. Patient gave permission to call significant other Luana to complete assessment. SAMIRA ROBERTSON called SO Luana Craft willing to participate in assessment and is able to answer all questions appropriately. Care providers, pharmacy, and demographics verified. Strata: 2 PCP: Romel Abraham Specialists: Radha, tip; Ankur, juany. Preferred Pharmacy: [facility] Retail at [facility]. [facility] Prescription Benefit: yes Living Will/HPOA: none LNOK: sister, significant other Living Arrangements: Patient lives alone in a single story apartment, no steps to enter. Patient was independent at home. Transportation: self, sister, significant other DME/HHC: Patient has cane walker, and grab bars at home. Patient has had [facility] HHC in the past. No previous SNF. Significant other unsure of disposition at discharge, will monitor progress with therapy. Significant other states she has no further needs or concerns at this time. CM to follow for discharge planning needs that may arise. Disposition Plan: TBD, will monitor progress with therapy. Sonja AUSTIN, RN, CM
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
--- NOTE | 2025-04-26 13:24 | ECHOCS_ITS ---
Reason For Study Reason For Study: Elevated Troponin Procedure This was a 2D Doppler, Color Flow transthoracic echocardiogram. The patient is in sinus rhythm. The study was technically difficult. Contrast injection was performed. Exam performed portable in patient room. Left Ventricle Normal LV size. Mild concentric left ventricular hypertrophy. Normal diastology for age. Technically difficult study with poor acoustic windows limiting interpretation. Definity contrast utilized to visualize the endocardial borders. Visually estimation of LV function considered to be hyperdynamic with ejection fraction estimated at greater than 75%. Right Ventricle Mildly dilated right ventricle. Normal systolic function. Atria The left and right atria are normal. Mitral Valve Mild diffuse mitral valve thickening. There is no mitral valve stenosis. Trivial mitral valve insufficiency. Tricuspid Valve The tricuspid valve is not well visualized. There is no tricuspid stenosis. Trivial tricuspid valve insufficiency. Aortic Valve The aortic valve is not well visualized. Mild diffuse aortic valve thickening. There is no aortic valve stenosis. No aortic valve insufficiency. Pulmonic Valve The pulmonic valve is not well visualized. Great Vessels Ascending aorta normal size measured at 2.9 cm. Normal sized IVC that collapses with respiration/sniff. Pericardium/Pleural Not well-visualized. No significant effusion appreciated. Medication Diluted definity 2ml given slow IV push to enhance endocardial definition. MMode/2D Measurements & Calculations LVIDd: 4.7 cm IVSd: 1.0 cm LVOT diam: 2.2 cm LVIDs: 3.4 cm LVPWd: 1.3 cm FS: 28.8 % LVOT area: 3.7 cm2 LVAd ap4: 32.8 cm2 SV(MOD-sp4): 66.0 ml SV(sp4-el): 70.3 ml LVLd ap4: 8.5 cm SI(MOD-sp4): 27.3 ml/m2 EDV(MOD-sp4): 104.5 ml EDV(sp4-el): 108.2 ml LVAs ap4: 17.6 cm2 LVLs ap4: 7.0 cm ESV(MOD-sp4): 38.5 ml ESV(sp4-el): 37.9 ml EF(MOD-sp4): 63.2 % EF(sp4-el): 65.0 % LA dimension(2D): 3.5 cm TAPSE: 2.7 cm Time Measurements MV dec time: 0.31 sec Doppler Measurements & Calculations MV E max henrry: 81.6 cm/sec Lat Peak E' Henrry: 9.2 cm/sec Med Peak E' Henrry: 8.8 cm/sec MV A max henrry: 92.6 cm/sec E/E' lat: 8.9 E/E' med: 9.2 MV E/A: 0.88 MV V2 max: 111.7 cm/sec MV P1/2t max henrry: 111.3 cm/sec Ao V2 max: 230.6 cm/sec MV max P.0 mmHg MV P1/2t: 90.7 msec Ao max P.3 mmHg MV V2 mean: 65.6 cm/sec MV dec slope: 359.5 cm/sec2 Ao V2 mean: 146.8 cm/sec MV mean P.0 mmHg Ao mean P.1 mmHg MV V2 VTI: 29.8 cm MVA(P1/2t): 2.4 cm2 Ao V2 VTI: 35.7 cm MVA(VTI): 2.8 cm2 AV (velocity ratio): 0.65 IRMA(I,D): 2.4 cm2 IRMA(V,D): 2.4 cm2 LV V1 max: 147.8 cm/sec SV(LVOT): 84.9 ml LV V1 max P.7 mmHg LV V1 mean P.9 mmHg LV V1 mean: 89.5 cm/sec LV V1 VTI: 23.1 cm ECHO/Echo Complete W/ Contrast Interpretation Summary Technically difficult study with poor acoustic windows limiting interpretation. Definity contrast utilized to visualize the endocardial borders. Visually estimation of LV function considered to be hyperdynamic with ejection fraction estimated at greater than 75%. Mild concentric left ventricular hypertrophy. Normal diastology for age. Mildly dilated right ventricle. Normal systolic function. Heart valves poorly visualized however no significant valvular heart disease ap preciated. Ordering Physician: Kevin Garcia Performed By: Scot Hopkins RCS
[2025-04-26 13:34] LABS: Ammonia 26.6 umol/L (16-60)
[2025-04-26 20:30] LABS: Creatinine, Urine (random) 340.00 mg/dL (39.00-259.00); Protein, Urine (Random) 57.8 mg/dL (0.0-12.0); Protein:Creat Ratio 170 mg/g CRE (0-200)
[2025-04-26] MEDS: 0.9% Saline Lock 10 ML Syringe IV (22:12)
[2025-04-27 02:42] VITALS: BP 116/59; PULSE 97; RESP 16; TEMP 37; O2SAT 96
[2025-04-27 07:09] LABS: Hematocrit 39.9 % (40-54); Hemoglobin 13.3 g/dL (13.0-16.5); Immature Granulocytes Count 0.060 X10^3/uL (0.0-0.0); Mean Corp Hgb Conc 33.3 g/dL (32-36); Mean Corpuscular Volume 85.3 fL (80-94); Mean Platelet Vol. 10.9 fl (6.2-12.0); NRBC Flagged by Analyzer 0 % (0-5); Platelet Count 154 K/mm3 (150-450); RBC Distribution Width CV 14.2 % (11.6-14.6); RBC Distribution Width SD 44.0 fl (35.1-43.9); Red Blood Count 4.68 M/mm3 (4.6-6.2); White Blood Count 10.7 K/mm3 (4.4-11.0)
[2025-04-27 07:31] LABS: Anion Gap 20 (7-18); BUN 72 mg/dL (4-19); BUN/Creat Ratio 19.2 RATIO (10-20); Calcium,Total 9.2 mg/dL (7.6-11.0); Carbon Dioxide 15.6 mmol/L (20.0-29.0); Chloride 108 mmol/L (96-106); Estimated Creatinine Clearance 27.08 ml/min (50-250); Glucose 118 mg/dL (70-99); Potassium 4.9 mmol/L (3.5-5.1)
--- NOTE | 2025-04-27 08:07 | PN.HOSP_ITS ---
Subjective Subjective More alert today, but still confused. Patient pulled out his catheter with the balloon inflated and there is hematuria that did not resolve. Objective Data Objective Data Vital Signs: Vital Signs Temp Pulse Resp BP Pulse Ox O2 Del Method O2 Flow Rate 37.0 C 97 16 116/59 L 96 Room Air 3 04/27/25 02:42 04/27/25 02:42 04/27/25 02:42 04/27/25 02:42 04/27/25 02:42 04/27/25 02:45 04/26/25 20:17 FiO2 94 04/26/25 01:15 Oxygen Flow Rate (L/min) [5] 6 Oxygen Flow Rate (L/min) [4] 6 Oxygen Flow Rate (L/min) [3] 10 Oxygen Flow Rate (L/min) [2] 6 Oxygen Flow Rate (L/min) [1 ( 2 Initial Baseline)] Oxygen Flow Rate (L/min) [1 ( 3 Initial Baseline)] Oxygen Flow Rate (L/min) 3 Oxygen Delivery Method [5] Nasal Cannula Oxygen Delivery Method [4] Nasal Cannula Oxygen Delivery Method [3] Nasal Cannula Oxygen Delivery Method [2] Nasal Cannula Oxygen Delivery Method [1 ( Nasal Cannula Initial Baseline)] Oxygen Delivery Method [1 ( Nasal Cannula Initial Baseline)] Oxygen Delivery Method Room Air Weight: 119.4 kg Body Mass Index (BMI) 34.7 Intake & Output: Intake and Output for Last 24 Hours 04/25/25 04/26/25 04/27/25 23:59 23:59 23:59 Intake Total 0 / 0 2981.67 / 2981.67 Output Total 0 / 0 520 / 520 2600 / 2600 Balance 0 / 0 2461.67 / 2461.67 -2600 / -2600 Lab / Micro Data 04/27/25 06:40 04/27/25 06:40 Labs: Laboratory Results - last 24 hr 04/26/25 06:02: TSH 0.785 04/26/25 11:48: POC Glucose 97 04/26/25 12:59: Ammonia 26.6 04/26/25 16:45: POC Glucose 92 04/26/25 19:00: U Random Total Protein 57.8 H, Ur Random Sodium 68, Urine Creatinine 344.00 H 04/26/25 19:00: Urine Creatinine 340.00 H, Protein/Creatinin Ratio 170, Urine Potassium 36.2, Urine Chloride < 20 04/26/25 22:11: POC Glucose 101 04/27/25 06:40: WBC 10.7, RBC 4.68, Hgb 13.3, Hct 39.9 L, MCV 85.3, MCH 28.4, MCHC 33.3, RDW Std Deviation 44.0 H, RDW Coeff of Mimi 14.2, Plt Count 154, MPV 10.9, Immature Gran % (Auto) 0.600, Neut % (Auto) 80.8 H, Lymph % (Auto) 9.1 L, [place] % (Auto) 8.8, Eos % (Auto) 0.4, Baso % (Auto) 0.3, Absolute Neuts (auto) 8.7 H, Absolute Lymphs (auto) 0.97, Nucleated RBC % 0, Sodium 143, Potassium 4.9, Chloride 108 H, Carbon Dioxide 15.6 L, Anion Gap 20 H, BUN 72 H, Creatinine 3.73 H, Estim Creat Clear Calc 27.08 L, Est GFR (MDRD) Non-Af 17 L, BUN/Creatinine Ratio 19.2, Glucose 118 H, Calcium 9.2 Radiography Diagnostic Testing: Radiology Impression Renal Ultrasound 04/26/25 11:22 IMPRESSION: Sonographically unremarkable kidneys. No hydronephrosis. Reading Location: [id number] Echocardiogram 04/26/25 13:24 Interpretation Summary Technically difficult study with poor acoustic windows limiting interpretation. Definity contrast utilized to visualize the endocardial borders. Visually estimation of LV function considered to be hyperdynamic with ejection fraction estimated at greater than 75%. Mild concentric left ventricular hypertrophy. Normal diastology for age. Mildly dilated right ventricle. Normal systolic function. Heart valves poorly visualized however no significant valvular heart disease appreciated. Ordering Physician: Kevin Garcia Performed By: Scot Hopkins RCS Rhythm Strip Rhythm Strip: Sinus Rhythm Rate: 85 Ectopy: None Physical Exam Const alert Constitutional Narrative: oriented to self only. Resp normal respiratory effort, no retractions, no use of accessory muscles and clear to auscultation bilaterally Cardio regular rate, regular rhythm, S1 normal heart sound and S2 normal heart sound GI normal to inspection, nondistended, normoactive bowel sounds, soft to palpation, non-tender and non-distended Neuro Neuro Narrative: Moves all extremities spontaneously. Has difficulty following commands and cannot perform [id number] as he got confused. Sensorium / Orientation: awake and oriented to person; Negative for oriented to place or oriented to time Assessment & Plan Assessment/Plan (1) Acute renal failure: (2) Closed dislocation of right shoulder: PLAN: Plan SAMANTHA * baseline creatinine around 0.95, admission Cr of 8.29, down to 3.73 today. * nephrology following * HCTZ, lisinopril held * FE urea I calculated at 1.57%, kidney ultrasound WNL. * Based on the FEUrea, this appears to be prerenal. Acute metabolic and toxic encephalopathy * Improved but still overall confused. * Metabolic from SAMANTHA/uremia, complicated by concomitant use of Percocet and pregabalin, which have been held. * UA negative for infection. * head CT negative. * ammonia, TSH WNL. Right shoulder dislocation * reduced in ED. * sling. * follow up with orthopaedics as outpt. Elevated troponins * 305 to 234 to 217. * I do not suspect a primary cardiac event, but rather skewed given severe SAMANTHA upon admission, cannot rule out demand ischemia * Echo showed a hyperdynamic LV with EF >75%. * No additional cardiac work up necessary at this time. Chronic medical conditions: * Essential HTN? Blood pressures currently are stable, can resume his Norvasc? 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 Will hold his home medications? Insulin? Accu-Cheks * Anxiety/depression? Stable? Continue with his Zoloft DVT: Heparin DW patient's girlfriend and sister and [id number] at bedside. Updated on as I feel that patient may have pregabalin toxicity that was exacerbated by his SAMANTHA. He did mention that there was a change in his medications though I told them that that was not the cause of his SAMANTHA but that buildup of metabolites, particularly pregabalin, was likely the culprit of his encephalopathy. Will check an ABG. Greater than 50 minutes of which greater than 50 send time was spent at bedside discussing with patient, family home confusion but also discussing again with nursing after the patient has PleurX catheter. Will. Charges/Coding Visit Charges Inpatient E&M: 06989 Subs Hosp L3
[2025-04-27 08:20] VITALS: O2SAT 94
[2025-04-27 08:46] VITALS: BP 112/85; PULSE 89; RESP 13; TEMP 36.9; O2SAT 94
[2025-04-27] MEDS: Heparin Injection (Vial) 5,000 UNIT/ML VIAL 5000 UNIT SC ×2 (08:49→21:32)
[2025-04-27] MEDS: 0.9% Normal Saline (1000mL) 1,000 ML 100 ML IV ×2 (09:44→21:30)
--- NOTE | 2025-04-27 12:44 | WOUNDNOTE ---
wound photo: left heel
--- NOTE | 2025-04-27 12:46 | WOUNDNOTE ---
wound photo: left foot
--- NOTE | 2025-04-27 12:47 | WOUNDNOTE ---
wound photo: right foot
--- NOTE | 2025-04-27 12:48 | WOUNDNOTE ---
wound photo: right phelps
--- NOTE | 2025-04-27 14:14 | PCM.PN.REN ---
Subjective Subjective No new complaint Objective Data Objective Data Vital Signs: Vital Signs Temp Pulse Resp BP Pulse Ox O2 Del Method O2 Flow Rate 98.4 F 89 13 112/85 H 94 Room Air 3 04/27/25 08:46 04/27/25 08:46 04/27/25 08:46 04/27/25 08:46 04/27/25 08:46 04/27/25 09:55 04/26/25 20:17 FiO2 94 04/26/25 01:15 Oxygen Flow Rate (L/min) [5] 6 Oxygen Flow Rate (L/min) [4] 6 Oxygen Flow Rate (L/min) [3] 10 Oxygen Flow Rate (L/min) [2] 6 Oxygen Flow Rate (L/min) [1 ( 2 Initial Baseline)] Oxygen Flow Rate (L/min) [1 ( 3 Initial Baseline)] Oxygen Flow Rate (L/min) 3 Oxygen Delivery Method [5] Nasal Cannula Oxygen Delivery Method [4] Nasal Cannula Oxygen Delivery Method [3] Nasal Cannula Oxygen Delivery Method [2] Nasal Cannula Oxygen Delivery Method [1 ( Nasal Cannula Initial Baseline)] Oxygen Delivery Method [1 ( Nasal Cannula Initial Baseline)] Oxygen Delivery Method Room Air Weight: 119.4 kg Body Mass Index (BMI) 34.7 Intake & Output: Intake and Output for Last 24 Hours 04/25/25 04/26/25 04/27/25 23:59 23:59 23:59 Intake Total 0 / 0 2981.67 / 2981.67 1440 / 1440 Output Total 0 / 0 520 / 520 4050 / 4050 Balance 0 / 0 2461.67 / 2461.67 -2610 / -2610 Lab / Micro Data 04/27/25 06:40 04/27/25 06:40 Labs: Laboratory Results - last 24 hr 04/26/25 16:45: POC Glucose 92 04/26/25 19:00: U Random Total Protein 57.8 H, Ur Random Sodium 68, Urine Creatinine 344.00 H 04/26/25 19:00: Urine Creatinine 340.00 H, Protein/Creatinin Ratio 170, Urine Potassium 36.2, Urine Chloride < 20 04/26/25 22:11: POC Glucose 101 04/27/25 06:28: POC Glucose 116 H 04/27/25 06:40: WBC 10.7, RBC 4.68, Hgb 13.3, Hct 39.9 L, MCV 85.3, MCH 28.4, MCHC 33.3, RDW Std Deviation 44.0 H, RDW Coeff of Mimi 14.2, Plt Count 154, MPV 10.9, Immature Gran % (Auto) 0.600, Neut % (Auto) 80.8 H, Lymph % (Auto) 9.1 L, [place] % (Auto) 8.8, Eos % (Auto) 0.4, Baso % (Auto) 0.3, Absolute Neuts (auto) 8.7 H, Absolute Lymphs (auto) 0.97, Nucleated RBC % 0, Sodium 143, Potassium 4.9, Chloride 108 H, Carbon Dioxide 15.6 L, Anion Gap 20 H, BUN 72 H, Creatinine 3.73 H, Estim Creat Clear Calc 27.08 L, Est GFR (MDRD) Non-Af 17 L, BUN/Creatinine Ratio 19.2, Glucose 118 H, Calcium 9.2 04/27/25 11:56: POC Glucose 177 H Radiography Diagnostic Testing: Radiology Impression Renal Ultrasound 04/26/25 11:22 IMPRESSION: Sonographically unremarkable kidneys. No hydronephrosis. Reading Location: [facility] Echocardiogram 04/26/25 13:24 Interpretation Summary Technically difficult study with poor acoustic windows limiting interpretation. Definity contrast utilized to visualize the endocardial borders. Visually estimation of LV function considered to be hyperdynamic with ejection fraction estimated at greater than 75%. Mild concentric left ventricular hypertrophy. Normal diastology for age. Mildly dilated right ventricle. Normal systolic function. Heart valves poorly visualized however no significant valvular heart disease appreciated. Ordering Physician: Kevin Garcia Performed By: Scot Hopkins RCS Rhythm Strip Rhythm Strip: Sinus Rhythm Rate: 85 Ectopy: None Physical Exam Narrative no obvious distress no pallor no icterus no JVD s1s2 no murmurs lungs clear abdomen soft no organomegaly no edema Assessment & Plan Assessment/Plan (1) Acute renal failure: PLAN: Baseline creatinine appears to be normal as of January. Came with a creatinine of more than 8, actually better today. Renal ultrasound ordered, pending. Urine analysis shows cells, protein, RBC, this is a new finding compared to before. Recently being treated for diabetic foot wound. He denies seeing any dark-colored urine or hematuria. Urine lites pending. Will add a urine protein creatinine ratio. Urine toxicology results reviewed Differential for SAMANTHA include prerenal, volume depletion mediated versus infection related glomera nephritis. Since creatinine has improved significantly with fluids overnight, more likely prerenal. Patient is somewhat confused, preadmission medication list includes oxycodone. Likely has some retention of opioids in the setting of renal failure. Given renal function is improved significantly already, hold off on renal replacement therapy for now. Home lisinopril and thiazide are on hold. Will check C3-C4 as well 04/27/2025. Markedly improved creatinine. Urine output is decent. SAMANTHA is likely all volume depletion related. Renal ultrasound okay.
[2025-04-27 17:15] VITALS: BP 130/77; PULSE 77; RESP 18; TEMP 36.8; O2SAT 98
[2025-04-27 18:49] LABS: Allen Test Positive; Base Excess -6 mmol/L (-2 to +2); PO2 56 mmHG (75-100); SITE L Radial; SO2 86 % (94-98)
[2025-04-27 21:20] VITALS: BP 164/82; PULSE 76; RESP 16; TEMP 36.9; O2SAT 97
[2025-04-28 03:13] VITALS: BP 157/84; PULSE 77; RESP 14; TEMP 36.8; O2SAT 95
[2025-04-28 05:39] LABS: Hematocrit 34.6 % (40-54); Hemoglobin 12.1 g/dL (13.0-16.5); Immature Granulocytes Count 0.030 X10^3/uL (0.0-0.0); Mean Corp Hgb Conc 35.0 g/dL (32-36); Mean Corpuscular Volume 82.6 fL (80-94); Mean Platelet Vol. 10.6 fl (6.2-12.0); NRBC Flagged by Analyzer 0 % (0-5); Platelet Count 156 K/mm3 (150-450); RBC Distribution Width CV 13.9 % (11.6-14.6); RBC Distribution Width SD 41.7 fl (35.1-43.9); Red Blood Count 4.19 M/mm3 (4.6-6.2); White Blood Count 8.7 K/mm3 (4.4-11.0)
[2025-04-28 06:37] LABS: Anion Gap 13 (7-18); BUN 45 mg/dL (4-19); BUN/Creat Ratio 37.5 RATIO (10-20); Calcium,Total 9.7 mg/dL (7.6-11.0); Carbon Dioxide 21.0 mmol/L (20.0-29.0); Chloride 113 mmol/L (96-106); Estimated Creatinine Clearance 84.18 ml/min (50-250); Glucose 133 mg/dL (70-99); Potassium 4.0 mmol/L (3.5-5.1)
[2025-04-28 06:39] VITALS: O2SAT 95
--- NOTE | 2025-04-28 08:18 | PN.HOSP_ITS ---
Subjective Subjective Feeling fine. Really wants to go home. Objective Data Objective Data Vital Signs: Vital Signs Temp Pulse Resp BP Pulse Ox O2 Del Method O2 Flow Rate 36.8 C 77 14 157/84 H 95 Room Air 3 04/28/25 03:13 04/28/25 03:13 04/28/25 03:13 04/28/25 03:13 04/28/25 03:13 04/28/25 04:00 04/26/25 20:17 FiO2 94 04/26/25 01:15 Oxygen Flow Rate (L/min) [5] 6 Oxygen Flow Rate (L/min) [4] 6 Oxygen Flow Rate (L/min) [3] 10 Oxygen Flow Rate (L/min) [2] 6 Oxygen Flow Rate (L/min) [1 ( 2 Initial Baseline)] Oxygen Flow Rate (L/min) [1 ( 3 Initial Baseline)] Oxygen Flow Rate (L/min) 3 Oxygen Delivery Method [5] Nasal Cannula Oxygen Delivery Method [4] Nasal Cannula Oxygen Delivery Method [3] Nasal Cannula Oxygen Delivery Method [2] Nasal Cannula Oxygen Delivery Method [1 ( Nasal Cannula Initial Baseline)] Oxygen Delivery Method [1 ( Nasal Cannula Initial Baseline)] Oxygen Delivery Method Room Air Weight: 119.4 kg Body Mass Index (BMI) 34.7 Intake & Output: Intake and Output for Last 24 Hours 04/26/25 04/27/25 04/28/25 23:59 23:59 23:59 Intake Total 2981.67 / 2981.67 2920 / 2920 Output Total 520 / 520 4550 / 4550 400 / 400 Balance 2461.67 / 2461.67 -1630 / -1630 -400 / -400 Lab / Micro Data 04/28/25 05:10 04/28/25 05:10 Labs: Laboratory Results - last 24 hr 04/27/25 06:28: POC Glucose 116 H 04/27/25 06:40: Complement C3 155, Complement C4 33 04/27/25 11:56: POC Glucose 177 H 04/27/25 17:18: POC Glucose 157 H 04/27/25 21:28: POC Glucose 137 H 04/28/25 05:10: WBC 8.7, RBC 4.19 L, Hgb 12.1 L, Hct 34.6 L, MCV 82.6, MCH 28.9, MCHC 35.0 D, RDW Std Deviation 41.7, RDW Coeff of Mimi 13.9, Plt Count 156, MPV 10.6, Immature Gran % (Auto) 0.300, Neut % (Auto) 74.5 H, Lymph % (Auto) 13.1 L, Bailey % (Auto) 11.1 H, Eos % (Auto) 0.8, Baso % (Auto) 0.2, Absolute Neuts (auto) 6.5, Absolute Lymphs (auto) 1.14, Nucleated RBC % 0, Sodium 147 H, Potassium 4.0, Chloride 113 H, Carbon Dioxide 21.0, Anion Gap 13, BUN 45 H, Creatinine 1.20, Estim Creat Clear Calc 84.18, Est GFR (MDRD) Non-Af 68, BUN/Creatinine Ratio 37.5 H, Glucose 133 H, Calcium 9.7 04/28/25 06:26: POC Glucose 132 H ABG Data ABG results: ABG 04/27/25 18:45 Specimen Type ART Sample Site L Radial pH 7.31 L Bicarbonate Actual 19.8 L Total CO2 21 Base Excess -6 L O2 Saturation 86 L ABG pCO2 39.5 ABG pO2 56 L Sanford Test Positive O2 Delivery Device Room Air Vent Mode Not entered Rhythm Strip Rhythm Strip: Sinus Rhythm Rate: 85 Ectopy: None Patient's Goals Of Care - F/U Goals Reviewed Goals of care reviewed with patient: Yes - No change (Going home) Physical Exam Const alert, oriented x3 and no apparent distress HEENT head/scalp atraumatic and moist oral mucous membranes Resp normal respiratory effort, no retractions, no use of accessory muscles and clear to auscultation bilaterally Cardio regular rate, regular rhythm, S1 normal heart sound and S2 normal heart sound GI normal to inspection, nondistended, normoactive bowel sounds, soft to palpation and non-tender Neuro Sensorium / Orientation: awake, alert and oriented to person Assessment & Plan Assessment/Plan (1) Acute renal failure: (2) Closed dislocation of right shoulder: PLAN: Plan SAMANTHA * resolved. baseline creatinine around 0.95, admission Cr of 8.29, down to 1.2 today. * nephrology following * HCTZ, lisinopril held * FE urea I calculated at 1.57%, kidney ultrasound WNL. * Based on the FEUrea, this appears to be prerenal. * Would continue to hold HCTZ and lisinopril as those may have been the culprits of his SAMANTHA Acute toxic encephalopathy * I feel his encephalopathy was due to pregabalin toxicity complicated by SAMANTHA. I do not feel the patient was actually uremic. His encephalopathy has resolved. * I feel it is appropriate to resume his pregabalin being that his SAMANTHA is also resolved. Right shoulder dislocation * reduced in ED. * sling. * follow up with orthopaedics as outpt. * s/p right reverse shoulder arthroplasty on 01/07/2025 * Follow-up with orthopedics Elevated troponins * 305 to 234 to 217. * I do not suspect a primary cardiac event, but rather skewed given severe SAMANTHA upon admission, cannot rule out demand ischemia * Echo showed a hyperdynamic LV with EF >75%. * No additional cardiac work up necessary at this time. Chronic medical conditions: * Essential HTN? Blood pressures currently are stable, can resume his Norvasc? 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 Will hold his home medications? Insulin? Accu-Cheks * Anxiety/depression? Stable? Continue with his Zoloft DVT: Heparin Got a message that family wants for the patient to go to a snf facility but the patient is adamant that he wants to go home and insist and asked that it is his decision. Told him that it certainly is but I would encourage and work with therapy to make sure there is no additional therapy needs that he may need upon discharge. He was agreeable to that. Charges/Coding Visit Charges Inpatient E&M: 37321 Subs Hosp L2
[2025-04-28] MEDS: 0.9% Normal Saline (1000mL) 1,000 ML 100 ML IV ×2 (08:33→18:25)
[2025-04-28 08:35] VITALS: BP 163/88; PULSE 80; RESP 18; TEMP 36.4; O2SAT 96
[2025-04-28] MEDS: Heparin Injection (Vial) 5,000 UNIT/ML VIAL 5000 UNIT SC ×2 (08:58→23:00)
--- NOTE | 2025-04-28 09:32 | CASEMGMT ---
Discharge Planning Pts family (brother and GHANSHYAM) addressed concerns with his discharge disposition. They feel that he would benefit from a short snf stay as he and his gf are having issues (she does not live there) and he wouldn't have reliable support. This ad copy writer explained that the above information would be given to the RN MARCELO and she would review recommendations and follow up with the pt. Pts family was very appreciative of the care he is receiving. RN MARCELO updated. Marcella Kerr DC Planning Asst.
--- NOTE | 2025-04-28 11:50 | CASEMGMT ---
SAMIRA ROBERTSON NOTE: RN MARCELO reviewed PT/OT notes. SAMIRA ROBERTSON to room. Pt resting in bed. Introduced self and role. Discussed therapy and discharge planning. Questions answered about SNF's and made aware of [facility]'s [place] In-pt qualifying stay for SNF benefits. He states he is weak and feels he would benefit from going somewhere for therapy before returning home. He states [facility] is his 1st preference and declines wanting a list of other SNF's at this time. Pt gave permission for this SAMIRA ROBERTSON to call his sister, Vickie, to notify her of his decision. Call placed to Vickie and she was updated on the above. Questions answered. She voices appreciation. Message sent to Madeline, print production coordinator for [facility], and referral made. Per Madeline, if they are able to accept pt, the earliest they could admit pt to [facility] is Saturday. Lara AUSTIN RN, CM
--- NOTE | 2025-04-28 13:00 | PN.RENAL_ITS ---
Subjective Subjective Follow-up on acute kidney injury. No events overnight, urine output this seems to be adequate Objective Data Objective Data Vital Signs: Vital Signs Temp Pulse Resp BP Pulse Ox O2 Del Method O2 Flow Rate 97.5 F L 80 18 163/88 H 96 Room Air 3 04/28/25 08:35 04/28/25 08:35 04/28/25 08:35 04/28/25 08:35 04/28/25 08:35 04/28/25 08:35 04/26/25 20:17 FiO2 94 04/26/25 01:15 Oxygen Flow Rate (L/min) [5] 6 Oxygen Flow Rate (L/min) [4] 6 Oxygen Flow Rate (L/min) [3] 10 Oxygen Flow Rate (L/min) [2] 6 Oxygen Flow Rate (L/min) [1 ( 2 Initial Baseline)] Oxygen Flow Rate (L/min) [1 ( 3 Initial Baseline)] Oxygen Flow Rate (L/min) 3 Oxygen Delivery Method [5] Nasal Cannula Oxygen Delivery Method [4] Nasal Cannula Oxygen Delivery Method [3] Nasal Cannula Oxygen Delivery Method [2] Nasal Cannula Oxygen Delivery Method [1 ( Nasal Cannula Initial Baseline)] Oxygen Delivery Method [1 ( Nasal Cannula Initial Baseline)] Oxygen Delivery Method Room Air Weight: 119.4 kg Body Mass Index (BMI) 34.7 Intake & Output: Intake and Output for Last 24 Hours 04/26/25 04/27/25 04/28/25 23:59 23:59 23:59 Intake Total 2981.67 / 2981.67 2920 / 2920 1000 / 1000 Output Total 520 / 520 4550 / 4550 400 / 400 Balance 2461.67 / 2461.67 -1630 / -1630 600 / 600 Lab / Micro Data Attestation: I reviewed the patient's lab results. 04/28/25 05:10 04/28/25 05:10 Labs: Laboratory Results - last 24 hr 04/27/25 06:40: Complement C3 155, Complement C4 33 04/27/25 17:18: POC Glucose 157 H 04/27/25 21:28: POC Glucose 137 H 04/28/25 05:10: WBC 8.7, RBC 4.19 L, Hgb 12.1 L, Hct 34.6 L, MCV 82.6, MCH 28.9, MCHC 35.0 D, RDW Std Deviation 41.7, RDW Coeff of Mimi 13.9, Plt Count 156, MPV 10.6, Immature Gran % (Auto) 0.300, Neut % (Auto) 74.5 H, Lymph % (Auto) 13.1 L, [place] % (Auto) 11.1 H, Eos % (Auto) 0.8, Baso % (Auto) 0.2, Absolute Neuts (auto) 6.5, Absolute Lymphs (auto) 1.14, Nucleated RBC % 0, Sodium 147 H, Potassium 4.0, Chloride 113 H, Carbon Dioxide 21.0, Anion Gap 13, BUN 45 H, Creatinine 1.20, Estim Creat Clear Calc 84.18, Est GFR (MDRD) Non-Af 68, BUN/Creatinine Ratio 37.5 H, Glucose 133 H, Calcium 9.7 04/28/25 06:26: POC Glucose 132 H 04/28/25 11:12: POC Glucose 140 H ABG Data ABG results: ABG 04/27/25 18:45 Specimen Type ART Sample Site L Radial pH 7.31 L Bicarbonate Actual 19.8 L Total CO2 21 Base Excess -6 L O2 Saturation 86 L ABG pCO2 39.5 ABG pO2 56 L Sanford Test Positive O2 Delivery Device Room Air Vent Mode Not entered Rhythm Strip Rhythm Strip: Sinus Rhythm Rate: 85 Ectopy: None Physical Exam Const alert, oriented x3, no apparent distress and average body habitus Orientation / Consciousness: oriented to person, oriented to place and oriented to time HEENT normocephalic Head and Scalp: atraumatic Resp Auscultation: diminished lung sounds Cardio regular rate GI non-tender Auscultation: normoactive bowel sounds Palpation: soft Skin no rashes or lesions noted Assessment & Plan Assessment/Plan (1) Acute renal failure: QUALIFIERS: Acute renal failure type: unspecified Qualified Code(s): N17.9 - Acute kidney failure, unspecified PLAN: (1) Acute renal failure: PLAN: Baseline creatinine appears to be normal as of January. Came with a creatinine of more than 8, actually better today. Renal ultrasound ordered, pending. Urine analysis shows cells, protein, RBC, this is a new finding compared to before. Recently being treated for diabetic foot wound. He denies seeing any dark-colored urine or hematuria. Urine lites pending. Will add a urine protein creatinine ratio. Urine toxicology results reviewed Differential for SAMANTHA include prerenal, volume depletion mediated versus infection related glomera nephritis. Since creatinine has improved significantly with fluids overnight, more likely prerenal. Patient is somewhat confused, preadmission medication list includes oxycodone. Likely has some retention of opioids in the setting of renal failure. Given renal function is improved significantly already, hold off on renal replacement therapy for now. Home lisinopril and thiazide are on hold. Will check C3-C4 as well 04/27/2025. Markedly improved creatinine. Urine output is decent. SAMANTHA is likely all volume depletion related. Renal ultrasound okay. 04/28/2025. Creatinine is almost normal, urine output is adequate, no acidosis. Okay to discharge from renal standpoint
[2025-04-28 15:00] VITALS: BP 155/79; PULSE 79; RESP 18; TEMP 36.4; O2SAT 96
[2025-04-28 22:49] VITALS: BP 159/96; PULSE 88; RESP 14; TEMP 36.3; O2SAT 98
[2025-04-29 02:50] VITALS: BP 166/95; PULSE 89; RESP 16; TEMP 36.8; O2SAT 99
[2025-04-29 04:02] LABS: Hematocrit 36.7 % (40-54); Hemoglobin 12.4 g/dL (13.0-16.5); Immature Granulocytes Count 0.030 X10^3/uL (0.0-0.0); Mean Corp Hgb Conc 33.8 g/dL (32-36); Mean Corpuscular Volume 83.0 fL (80-94); Mean Platelet Vol. 11.3 fl (6.2-12.0); NRBC Flagged by Analyzer 0 % (0-5); Platelet Count 146 K/mm3 (150-450); RBC Distribution Width CV 13.7 % (11.6-14.6); RBC Distribution Width SD 41.6 fl (35.1-43.9); Red Blood Count 4.42 M/mm3 (4.6-6.2); White Blood Count 7.8 K/mm3 (4.4-11.0)
[2025-04-29 05:35] LABS: Anion Gap 14 (7-18); BUN 24 mg/dL (4-19); BUN/Creat Ratio 28.4 RATIO (10-20); Calcium,Total 9.2 mg/dL (7.6-11.0); Carbon Dioxide 17.7 mmol/L (20.0-29.0); Chloride 113 mmol/L (96-106); Estimated Creatinine Clearance 118.84 ml/min (50-250); Glucose 131 mg/dL (70-99); Potassium 4.2 mmol/L (3.5-5.1)
[2025-04-29] MEDS: 0.9% Normal Saline (1000mL) 1,000 ML 100 ML IV (05:59)
[2025-04-29 09:54] VITALS: BP 170/93; PULSE 86; RESP 18; TEMP 36.8; O2SAT 98
[2025-04-29] MEDS: Heparin Injection (Vial) 5,000 UNIT/ML VIAL 5000 UNIT SC (09:59)
--- NOTE | 2025-04-29 10:10 | PN.HOSP_ITS ---
Subjective Subjective Feeling well. Says he is going home, he said he spoke to his and said she could accomadate him. Objective Data Objective Data Vital Signs: Vital Signs Temp Pulse Resp BP Pulse Ox O2 Del Method O2 Flow Rate 36.8 C 86 18 170/93 H 98 Room Air 3 04/29/25 09:54 04/29/25 09:54 04/29/25 09:54 04/29/25 09:54 04/29/25 09:54 04/29/25 09:54 04/26/25 20:17 FiO2 94 04/26/25 01:15 Oxygen Flow Rate (L/min) [5] 6 Oxygen Flow Rate (L/min) [4] 6 Oxygen Flow Rate (L/min) [3] 10 Oxygen Flow Rate (L/min) [2] 6 Oxygen Flow Rate (L/min) [1 ( 2 Initial Baseline)] Oxygen Flow Rate (L/min) [1 ( 3 Initial Baseline)] Oxygen Flow Rate (L/min) 3 Oxygen Delivery Method [5] Nasal Cannula Oxygen Delivery Method [4] Nasal Cannula Oxygen Delivery Method [3] Nasal Cannula Oxygen Delivery Method [2] Nasal Cannula Oxygen Delivery Method [1 ( Nasal Cannula Initial Baseline)] Oxygen Delivery Method [1 ( Nasal Cannula Initial Baseline)] Oxygen Delivery Method Room Air Weight: 119.4 kg Body Mass Index (BMI) 34.7 Intake & Output: Intake and Output for Last 24 Hours 04/27/25 04/28/25 04/29/25 23:59 23:59 23:59 Intake Total 2920 / 2920 2486.67 / 2486.67 1000 / 1000 Output Total 4550 / 4550 950 / 1150 200 / 200 Balance -1630 / -1630 1536.67 / 1336.67 800 / 800 Lab / Micro Data 04/29/25 03:32 04/29/25 03:32 Labs: Laboratory Results - last 24 hr 04/28/25 11:12: POC Glucose 140 H 04/28/25 16:05: POC Glucose 147 H 04/28/25 22:57: POC Glucose 136 H 04/29/25 03:32: WBC 7.8, RBC 4.42 L, Hgb 12.4 L, Hct 36.7 L, MCV 83.0, MCH 28.1, MCHC 33.8, RDW Std Deviation 41.6, RDW Coeff of Mimi 13.7, Plt Count 146 L, MPV 11.3, Immature Gran % (Auto) 0.400, Neut % (Auto) 71.3 H, Lymph % (Auto) 15.9 L, [place] % (Auto) 10.5 H, Eos % (Auto) 1.4, Baso % (Auto) 0.5, Absolute Neuts (auto) 5.6, Absolute Lymphs (auto) 1.25, Nucleated RBC % 0, Sodium 145, Potassium 4.2, Chloride 113 H, Carbon Dioxide 17.7 L, Anion Gap 14, BUN 24 H, Creatinine 0.85, Estim Creat Clear Calc 118.84, Est GFR (MDRD) Non-Af 97, BUN/Creatinine Ratio 28.4 H, Glucose 131 H, Calcium 9.2 04/29/25 06:02: POC Glucose 133 H Rhythm Strip Rhythm Strip: Sinus Rhythm Rate: 85 Ectopy: None Physical Exam Const alert and no apparent distress Constitutional Narrative: laying in bed. HEENT head/scalp atraumatic and moist oral mucous membranes Resp normal respiratory effort and no retractions Neuro Sensorium / Orientation: awake and alert Assessment & Plan Assessment/Plan (1) Acute renal failure: QUALIFIERS: Acute renal failure type: unspecified Qualified Code(s): N17.9 - Acute kidney failure, unspecified (2) Closed dislocation of right shoulder: PLAN: Plan SAMANTHA * resolved. baseline creatinine around 0.95, admission Cr of 8.29, down to 1.2 today. * nephrology following * HCTZ, lisinopril held * FE urea I calculated at 1.57%, kidney ultrasound WNL. * Based on the FEUrea, this appears to be prerenal. * Would continue to hold HCTZ and lisinopril as those may have been the culprits of his SAMANTHA Acute toxic encephalopathy * I feel his encephalopathy was due to pregabalin toxicity complicated by SAMANTHA. I do not feel the patient was actually uremic. His encephalopathy has resolved. * I feel it is appropriate to resume his pregabalin being that his SAMANTHA is also resolved. Right shoulder dislocation * reduced in ED. * sling. * follow up with orthopaedics as outpt. * s/p right reverse shoulder arthroplasty on 01/07/2025 * Follow-up with orthopedics Elevated troponins * 305 to 234 to 217. * I do not suspect a primary cardiac event, but rather skewed given severe SAMANTHA upon admission, cannot rule out demand ischemia * Echo showed a hyperdynamic LV with EF >75%. * No additional cardiac work up necessary at this time. Chronic medical conditions: * Essential HTN? Blood pressures currently are stable, can resume his Norvasc? 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 Will hold his home medications? Insulin? Accu-Cheks * Anxiety/depression? Stable? Continue with his Zoloft DVT: Heparin Pt now insisting on going home. I told him that we still have concerns about his safety. He insists on going home. I told him if he is too weak at home, then he would have to go to the ED, rather than coming back to his room.
--- NOTE | 2025-04-29 10:15 | DS.PCM_ITS ---
Providers Date of Admission: 04/26/25 Primary Care Physician: RICARDO DALLAS MD Consultations 04/26/25 03:08 Consult: Nephrology Routine Consulting Provider: Monico Dumont Reason for Consult: renal failure EMERGENT Consult: No MD Notified: Yes Date Notified: 04/26/25 Time Notified: 08:01 Method of Notification: Answering Service Consult: Onc/Wound/data deliverables manager Routine Comment: Reason For Visit: RENAL FAILURE Diagnosis Discharge Diagnosis (1) Acute renal failure: Status: Acute Code(s): N17.9 - Acute kidney failure, unspecified Qualifiers: Acute renal failure type: unspecified Qualified Code(s): N17.9 - Acute kidney failure, unspecified (2) Closed dislocation of right shoulder: Status: Acute Code(s): S43.004A - Unspecified dislocation of right shoulder joint, initial encounter Plan SAMANTHA * resolved. baseline creatinine around 0.95, admission Cr of 8.29, down to 1.2 today. * nephrology following * HCTZ, lisinopril held * FE urea I calculated at 1.57%, kidney ultrasound WNL. * Based on the FEUrea, this appears to be prerenal. * Would continue to hold HCTZ and lisinopril as those may have been the culprits of his SAMANTHA Acute toxic encephalopathy * I feel his encephalopathy was due to pregabalin toxicity complicated by SAMANTHA. I do not feel the patient was actually uremic. His encephalopathy has resolved. * I feel it is appropriate to resume his pregabalin being that his SAMANTHA is also resolved. Right shoulder dislocation * reduced in ED. * sling. * follow up with orthopaedics as outpt. * s/p right reverse shoulder arthroplasty on 01/07/2025 * Follow-up with orthopedics Elevated troponins * 305 to 234 to 217. * I do not suspect a primary cardiac event, but rather skewed given severe SAMANTHA upon admission, cannot rule out demand ischemia * Echo showed a hyperdynamic LV with EF >75%. * No additional cardiac work up necessary at this time. Chronic medical conditions: * Essential HTN? Blood pressures currently are stable, can resume his Norvasc? 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 Will hold his home medications? Insulin? Accu-Cheks * Anxiety/depression? Stable? Continue with his Zoloft DVT: Heparin Pt now insisting on going home. I told him that we still have concerns about his safety. He insists on going home. I told him if he is too weak at home, then he would have to go to the ED, rather than coming back to his room. Medications at Discharge Home Medications amlodipine 10 mg tablet 10 mg PO DAILY 09/23/15 hydrochlorothiazide 25 mg tablet 25 mg PO DAILY 09/23/15 pregabalin 150 mg capsule (Lyrica) 150 mg PO .qd 09/23/15 lisinopril 20 mg tablet 20 mg PO DAILY 10/07/20 insulin glargine U-300 conc 300 unit/mL (1.5 mL) subcutaneous pen (Toujeo SoloStar U-300 Insulin) 20 unit subcut DAILY 12/14/22 sennosides 8.6 mg-docusate sodium 50 mg tablet (Stool Softener-Stimulant Laxative) 2 tab PO BID PRN constipation 04/13/24 tirzepatide 10 mg/0.5 mL subcutaneous pen injector (Mounjaro) 10 mg subcut [place] 04/13/24 oxycodone-acetaminophen 10 mg-325 mg tablet (Percocet) 1 tab PO Q6H PRN pain 7 days #28 tabs 04/24/24 sertraline 50 mg tablet 50 mg PO DAILY 12/10/24 tizanidine 4 mg tablet 2 - 4 mg PO TID PRN PRN muscle spasm 12/10/24 acetaminophen 500 mg tablet 1,000 mg (2 x 500 mg) PO Q8 #180 tabs 01/08/25 aspirin 81 mg tablet,delayed release 81 mg PO BID #30 tabs 01/08/25 Held on 03/10/25. Instructions: MD Ordered Hospital Course Operations None Procedures None Summary of Care Provided Hospital Course: This is a 64-year-old male presents with confusion. He was found to have SAMANTHA with creatinine of 8. He was profoundly confused. Patient was started on IV fluids. Kidney function has improved. Patient's mental status slowly improved as well. Is felt the patient had pregabalin toxicity due to his SAMANTHA not removing his pregabalin metabolites causing him to be confused. Patient may resume his pregabalin. His SAMANTHA seem to be more prerenal so he will hold off on his HCTZ and lisinopril at this time. Patient is debilitated but does have a baseline poor performance status. We were going to consider assisted facility but the patient does not wish to proceed with that and wishes to go home. Weight / BMI Weight Weight: 119.4 kg Body Mass Index (BMI) 34.7 ABG / Lab / Microbiology Data 04/29/25 03:32 04/29/25 03:32 Laboratory: Laboratory Results - last 24 hr 04/28/25 11:12: POC Glucose 140 H 04/28/25 16:05: POC Glucose 147 H 04/28/25 22:57: POC Glucose 136 H 04/29/25 03:32: WBC 7.8, RBC 4.42 L, Hgb 12.4 L, Hct 36.7 L, MCV 83.0, MCH 28.1, MCHC 33.8, RDW Std Deviation 41.6, RDW Coeff of Mimi 13.7, Plt Count 146 L, MPV 11.3, Immature Gran % (Auto) 0.400, Neut % (Auto) 71.3 H, Lymph % (Auto) 15.9 L, [place] % (Auto) 10.5 H, Eos % (Auto) 1.4, Baso % (Auto) 0.5, Absolute Neuts (auto) 5.6, Absolute Lymphs (auto) 1.25, Nucleated RBC % 0, Sodium 145, Potassium 4.2, Chloride 113 H, Carbon Dioxide 17.7 L, Anion Gap 14, BUN 24 H, Creatinine 0.85, Estim Creat Clear Calc 118.84, Est GFR (MDRD) Non-Af 97, BUN/Creatinine Ratio 28.4 H, Glucose 131 H, Calcium 9.2 04/29/25 06:02: POC Glucose 133 H D/C Instructions DC O2, CPAP, BIPAP Needs Home O2 Discharge instructions: No Meaningful Use Info Meaningful Use Meaningful Use Diagnoses (Choose all that apply): None applicable Discharge Plan Admission Admit Date/Time: 04/26/25 00:48 Attending Provider: Kevin Garcia Primary Care Provider: RICARDO DALLAS Consulting Providers: Miguelito Mesa Jayaprakas Discharge Orders/Prescriptions Prescriptions: No Action amlodipine 10 MG tablet 10 mg PO DAILY hydrochlorothiazide 25 MG tablet 25 mg PO DAILY pregabalin [Lyrica] 150 MG capsule 150 mg PO .qd lisinopril 20 mg Tablet 20 mg PO DAILY insulin glargine U-300 conc [Toujeo SoloStar U-300 Insulin] 300 unit/mL (1.5 mL) insulin pen 20 unit subcut DAILY Mounjaro 10 mg/0.5 mL pen injector 10 mg subcut [place]APLETON sennosides-docusate sodium [Stool Softener-Stimulant Laxat] 8.6-50 mg Tablet 2 tab PO BID PRN (Reason: constipation) Rx Instructions: Take until first bowel movement, then as needed oxycodone-acetaminophen [Percocet] 10-325 mg tablet 1 tab PO Q6H PRN (Reason: pain) 7 Days Qty: 28 0RF tizanidine 4 mg tablet 2 - 4 mg PO TID PRN PRN (Reason: muscle spasm) sertraline 50 mg tablet 50 mg PO DAILY acetaminophen 500 mg Tablet 1,000 mg PO Q8 Qty: 180 0RF aspirin 81 mg Tablet,Delayed Release (Dr/Ec) 81 mg PO BID Qty: 30 0RF Referrals / Follow Up: RICARDO DALLAS MD [Primary Care Provider, Interventional Cardiology] Charges/Coding Visit Charges Inpatient E&M: 21962 Disch Hosp
[2025-04-29 11:30] VITALS: BP 162/91
[2025-04-29 12:05] VITALS: BP 162/84; PULSE 80; RESP 16; TEMP 36.6; O2SAT 99
[2025-04-29 15:12] VITALS: BP 162/84; PULSE 80; RESP 16; TEMP 36.6; O2SAT 99
== END 2025-04-29 17:10 | disposition home or self-care (01) | DRG 682 ==
LOC: ED 04-26 00:18 → PCU 04-26 00:55
PROVIDERS: Internal Medicine Nephrology; Admitting Provider Family Medicine; Emergency Provider Emergency Medicine; PCP Internal Medicine Cardiovascular Disease
DX: N17.9 Acute kidney failure, unspecified (principal); G92.8 Other toxic encephalopathy; I24.89 Other forms of acute ischemic heart disease; E11.42 Type 2 diabetes mellitus with diabetic polyneuropathy; M06.9 Rheumatoid arthritis, unspecified; I10 Essential (primary) hypertension; F32.A Depression, unspecified; S43.004A Unspecified dislocation of right shoulder joint, initial encounter; E11.51 Type 2 diabetes mellitus with diabetic peripheral angiopathy without gangrene; F17.290 Nicotine dependence, other tobacco product, uncomplicated; F41.9 Anxiety disorder, unspecified; Z79.85 Long-term (current) use of injectable non-insulin antidiabetic drugs; Z96.611 Presence of right artificial shoulder joint; Z79.899 Other long term (current) drug therapy; X58.XXXA Exposure to other specified factors, initial encounter
CPT/HCPCS: 36415; 36600; 70450; 71045; 73030; 73630; 76770; 80048; 80053; 80307; 81001; 82077; 82140; 82436; 82570; 82803; 82962; 83605; 84133; 84156; 84300; 84443; 84484; 85025; 86160; 93005; 93306; 97163; 97166; 97530; 97535; 97803; 99152; 99285; Q9957; A4216; C8929; J2405